=== PATIENT | female | born 1950 | race Caucasian/White ===

== ENCOUNTER 2016-08-19 03:02 | Emergency (ER) | payer MEDICARE, OTHER ==
[2016-08-19 03:08] VITALS: TEMP 99.3
[2016-08-19] MEDS ORDERED: SODIUM CHLORIDE 0.9% 1,000 ML IV STA (03:14)
[2016-08-19] MEDS ORDERED: HYDROmorphone 1 MG/ML 1 ML SYRINGE IVP STA ×2 (03:14→05:36)
[2016-08-19] MEDS ORDERED: SODIUM CHLORIDE 0.9% 500 ML IV STA (03:14)
--- NOTE | 2016-08-19 03:16 | ED ---
General Adult HPI - General Chief complaint: Extremity Injury, Lower Stated complaint: left lower extremity pain Time Seen by Provider: 08/19/16 03:14 Source: EMS, RN notes reviewed, old records reviewed Mode of arrival: EMS Limitations: no limitations - History of Present Illness Initial comments: This is a 65-year-old female here for evaluation. Critical aortic narcotic pain. Patient has multiple medical comorbidities significant diabetes and poor healing left lower extremity ulcer. Patient has been followed wound care, no fevers. There complaining of severe pain in her left lower extremity. Patient denies new trauma. Denies any other significant complaints. Patient states her pains as can the point where she can't function, catwalk on that left leg and can't get up without severe pain. Patient states that mostly night crying. - Related Data Home Medications Medication Instructions Recorded Confirmed Atorvastatin [Lipitor] 40 mg PO HS 08/30/15 08/11/16 Sennosides [Senokot] 8.6 mg PO DAILY PRN 08/30/15 08/11/16 Biotin 5 mg PO DAILY 08/31/15 08/11/16 rOPINIRole HCL [Requip] 0.25 mg PO HS 02/16/16 08/11/16 Allopurinol [Zyloprim] 100 mg PO BID 05/21/16 08/11/16 Calcium Carbonate [Tums] 500 mg PO DAILY 05/21/16 08/11/16 Calcium Carbonate/Vitamin D3 1 tab PO DAILY 05/21/16 08/11/16 [Calcium 600-Vit D3 400 Caplet] DULoxetine HCL [Cymbalta] 60 mg PO DAILY 05/21/16 08/11/16 Furosemide [Lasix] 80 mg PO QAM 05/21/16 08/11/16 Omeprazole 20 mg PO QAM 05/21/16 08/11/16 Pregabalin [Lyrica] 150 mg PO BID 05/21/16 08/11/16 diphenhydrAMINE [Benadryl] 25 mg PO DAILY PRN 05/21/16 08/11/16 metFORMIN HCL 1,000 mg PO BID 05/21/16 08/11/16 oxyCODONE-APAP 10-325MG [Percocet 1 tab PO QID PRN 05/21/16 08/11/16 10-325 mg] Ascorbic Acid [Vitamin C] 500 mg PO DAILY 06/29/16 08/11/16 Bisacodyl 5 mg PO DAILY PRN 06/29/16 08/11/16 Cholecalciferol [Vitamin D3] 2,000 unit PO DAILY 06/29/16 08/11/16 Ferrous Sulfate [Iron (65 MG 325 mg PO BID 06/29/16 08/11/16 Elemental)] Furosemide [Lasix] 40 mg PO DAILY@1300 06/29/16 08/11/16 Magnesium Hydroxide [Milk of 2,400 mg PO DAILY PRN 06/29/16 08/11/16 Magnesia] Multivit with Calcium,Iron,Min 1 tab PO DAILY 06/29/16 08/11/16 [Women's Multivitamin] Polyethylene Glycol 3350 [Miralax] 17 gm PO DAILY 06/29/16 08/11/16 Vitamin E (Dl,Tocopheryl Acet) 400 unit PO DAILY 06/29/16 08/11/16 [Vitamin E] tiZANidine [Zanaflex] 4 mg PO DAILY 06/29/16 08/11/16 Previous Rx's Medication Instructions Recorded Potassium Chloride [Klor-Con 20] 20 meq PO DAILY #30 tab 03/06/16 Allergies Allergy/AdvReac Type Severity Reaction Status Date / Time adhesive tape Allergy Severe Rash/Hives Verified 08/19/16 03:09 cephalexin monohydrate Allergy Severe Rash/Hives Verified 08/19/16 03:09 [From Keflex] influenza virus vaccine, Allergy Severe Anaphylaxis Verified 08/19/16 03:09 specific [influenza virus vacc,specific] latex Allergy Severe Rash/Hives Verified 08/19/16 03:09 peanut Allergy Severe Anaphylaxis Verified 08/19/16 03:09 Penicillins Allergy Severe Swelling Verified 08/19/16 03:09 tetanus toxoid, adsorbed Allergy Intermediate Rash/Hives Verified 08/19/16 03:09 Review of Systems ROS Statement: Those systems with pertinent positive or pertinent negative responses have been documented in the HPI. ROS Other: All systems not noted in ROS Statement are negative. Past Medical History Past Medical History: Diabetes Mellitus, Deep Vein Thrombosis (DVT), Fibromyalgia, GI Bleed, Hypertension, Skin Disorder, Sleep Apnea/CPAP/BIPAP Additional Past Medical History / Comment(s): Pt recently fell (April 2016) and had L eye contusion/L lower leg laceration-surgically repaired/DVT L lower leg and acute blood loss anemia. Other HX: IDDM type II, DVT L leg, bilateral lower leg cellulitis with L lower leg cellulitis currently being tx by Dr. Bhatia, rt heel pressure ulcer-SINCE HEALED, peripheral neuropathy bilateral hands and feet, falls, chronic UTI'S, bilateral tinnitis, hemorrhoids , migraines, obesity, pt is on cholesterol medication for eye cholesterol problem, back pain, eczema, sinus problems, ALEX no CPAP, stomach ulcers, lower GI bleed. Last Myocardial Infarction Date:: unknown History of Any Multi-Drug Resistant Organisms: MRSA, VRE Date of last positivie culture/infection: 10/21/2014- VRE; 06/13/16 MRSA(LT leg) , MDRO Source:: Urine-VRE; Left knee arthroplasty-MRSA ( MRSA per nursing documentation) Past Surgical History: Adenoidectomy, Bariatric Surgery, Cholecystectomy, Joint Replacement, Tonsillectomy, Tubal Ligation Additional Past Surgical History / Comment(s): Gastric bypass, [place]-en-Y in 2003 , [place] filter placement, teeth extraction, colonoscopy, EGD, hemorrhoidectomy, panniculectomy, D&C, hystoscopy x 2, LT KNEE replaced-MRSA infection-hardware removed and cemented then replaced again, L hip repair with screw and total R hip REPLACEMENT, bilateral heel spurs removed, bilateral carpal tunnel releases, D&Cs, infusaport insertion since removed. Past Anesthesia/Blood Transfusion Reactions: No Reported Reaction Additional Past Anesthesia/Blood Transfusion Reaction / Comment(s): pt has received blood in the past without reaction. Past Psychological History: Anxiety, Depression Additional Psychological History / Comment(s): Pt lives with a roomate. She is wheelchair bound. She has an aide coming 3 times a week for bathing. She manages her own medication. VNA changes L lower leg dressing 3 times a week. She does not drive any longer. She gets to [facility] by bus. Smoking Status: Former smoker Past Alcohol Use History: Rare Additional Past Alcohol Use History / Comment(s): She has history of smoking 1.5 pack per day for 27 years and quit in 1993. She drinks alcohol rarely. 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 pt stated SHE HAS HOME CARE WITH VISITNG NURSES. uses a w/c Past Drug Use History: Cocaine, Marijuana Additional Drug Use History / Comment(s): when younger admits to using marijuana ,lsd,meth,cocaine denies any iv drug use. pt still smokes marijuana for pain control. - Past Family History Father Family Medical History: Myocardial Infarction ([place]) Additional Family Medical History / Comment(s): AT AGE 46-[place] Mother Family Medical History: Diabetes Mellitus Additional Family Medical History / Comment(s): AT AGE 66 FROM COMPLICATIONS FROM DM Sister(s) Family Medical History: Diabetes Mellitus Brother(s) Family Medical History: Diabetes Mellitus Daughter(s) Family Medical History: Cancer Son(s) Family Medical History: No Reported History General Exam Limitations: no limitations Course Vital Signs 08/19/16 03:05 Temperature 99.3 F Pulse Rate 66 Respiratory 20 Rate Blood Pressure 152/70 O2 Sat by Pulse 97 Oximetry - Reevaluation(s) Reevaluation #1: 08/19/16 05:33 Patient's pain at this point is adequately controlled Medical Decision Making - Medical Decision Making 65-year-old here for evaluation. Patient presents today for evaluation of leg pain, severe acute on chronic leg pain. Patient can be discharged home - Lab Data Result diagrams: 08/19/16 03:37 08/19/16 03:37 Lab Results 08/19/16 08/19/16 08/19/16 Range/Units 03:37 03:37 03:37 WBC 6.8 (3.8-10.6) k/uL RBC 3.16 L (3.80-5.40) m/uL Hgb 8.6 L (11.4-16.0) gm/dL Hct 28.1 L (34.0-46.0) % MCV 88.9 (80.0-100.0) fL MCH 27.4 (25.0-35.0) pg MCHC 30.8 L (31.0-37.0) g/dL RDW 17.2 H (11.5-15.5) % Plt Count 324 (150-450) k/uL Neutrophils % 65 % Lymphocytes % 22 % Monocytes % 7 % Eosinophils % 3 % Basophils % 1 % Neutrophils # 4.4 (1.3-7.7) k/uL Lymphocytes # 1.5 (1.0-4.8) k/uL Monocytes # 0.5 (0-1.0) k/uL Eosinophils # 0.2 (0-0.7) k/uL Basophils # 0.0 (0-0.2) k/uL Hypochromasia Slight Anisocytosis Slight Sodium 142 (137-145) mmol/L Potassium 4.0 (3.5-5.1) mmol/L Chloride 100 (98-107) mmol/L Carbon Dioxide 26 (22-30) mmol/L Anion Gap 16 mmol/L BUN 39 H (7-17) mg/dL Creatinine 1.60 H (0.52-1.04) mg/dL Est GFR (MDRD) Af Amer 39 (>60 ml/min/1.73 sqM) Est GFR (MDRD) Non-Af 32 (>60 ml/min/1.73 sqM) Glucose 254 H (74-99) mg/dL Plasma Lactic Acid Maximus (0.7-2.0) mmol/L Calcium 8.8 (8.4-10.2) mg/dL Phosphorus 5.0 H (2.5-4.5) mg/dL Magnesium 1.9 (1.6-2.3) mg/dL Total Bilirubin 0.4 (0.2-1.3) mg/dL AST 20 (14-36) U/L ALT 31 (9-52) U/L Alkaline Phosphatase 147 H (38-126) U/L Total Creatine Kinase 75 (30-135) U/L CK-MB (CK-2) 1.8 (0.0-2.4) ng/mL CK-MB (CK-2) Rel Index 2.4 Total Protein 7.8 (6.3-8.2) g/dL Albumin 3.7 (3.5-5.0) g/dL 08/19/16 Range/Units 03:37 WBC (3.8-10.6) k/uL RBC (3.80-5.40) m/uL Hgb (11.4-16.0) gm/dL Hct (34.0-46.0) % MCV (80.0-100.0) fL MCH (25.0-35.0) pg MCHC (31.0-37.0) g/dL RDW (11.5-15.5) % Plt Count (150-450) k/uL Neutrophils % % Lymphocytes % % Monocytes % % Eosinophils % % Basophils % % Neutrophils # (1.3-7.7) k/uL Lymphocytes # (1.0-4.8) k/uL Monocytes # (0-1.0) k/uL Eosinophils # (0-0.7) k/uL Basophils # (0-0.2) k/uL Hypochromasia Anisocytosis Sodium (137-145) mmol/L Potassium (3.5-5.1) mmol/L Chloride (98-107) mmol/L Carbon Dioxide (22-30) mmol/L Anion Gap mmol/L BUN (7-17) mg/dL Creatinine (0.52-1.04) mg/dL Est GFR (MDRD) Af Amer (>60 ml/min/1.73 sqM) Est GFR (MDRD) Non-Af (>60 ml/min/1.73 sqM) Glucose (74-99) mg/dL Plasma Lactic Acid Maximus 1.2 (0.7-2.0) mmol/L Calcium (8.4-10.2) mg/dL Phosphorus (2.5-4.5) mg/dL Magnesium (1.6-2.3) mg/dL Total Bilirubin (0.2-1.3) mg/dL AST (14-36) U/L ALT (9-52) U/L Alkaline Phosphatase (38-126) U/L Total Creatine Kinase (30-135) U/L CK-MB (CK-2) (0.0-2.4) ng/mL CK-MB (CK-2) Rel Index Total Protein (6.3-8.2) g/dL Albumin (3.5-5.0) g/dL - Radiology Data Radiology results: report reviewed (X-ray left tib-fib is negative for acute disease), image reviewed Disposition Clinical Impression: Type II diabetes mellitus with peripheral circulatory disorder, uncontrolled, Traumatic ulcer of left lower extremity with fat layer exposed, Failure of outpatient treatment, Intractable pain Disposition: HOME SELF-CARE Condition: Good Instructions: Leg Pain (ED) Referrals: Willis Gurrola MD [Primary Care Provider] - 1-2 days
[2016-08-19 03:54] LABS: Anisocytosis Slight; Basophils % (A) 1 %; CH 28.5; CHCM 32.2; Eosinophils # (A) 0.2 k/uL (0-0.7); Eosinophils % (A) 3 %; HCT 28.1 % (34.0-46.0); HDW 3.33; HGB 8.6 gm/dL (11.4-16.0); Hypochromasia Slight; Luc # (Auto) 0.13; Luc % (Auto) 2; Lymphocytes # (A) 1.5 k/uL (1.0-4.8); Lymphocytes % (A) 22 %; MCH 27.4 pg (25.0-35.0); MCHC 30.8 g/dL (31.0-37.0); MCV 88.9 fL (80.0-100.0); Mean Platelet Volume 7.9; Monocytes # (A) 0.5 k/uL (0-1.0); Monocytes % (A) 7 %; Neutrophils # (A) 4.4 k/uL (1.3-7.7); Neutrophils % (A) 65 %; RBC 3.16 m/uL (3.80-5.40); RDW 17.2 % (11.5-15.5); WBC 6.8 k/uL (3.8-10.6); WBC (Perox) 7.33
[2016-08-19 04:09] LABS: Calcium 8.8 mg/dL (8.4-10.2); Magnesium 1.9 mg/dL (1.6-2.3); Total Bilirubin 0.4 mg/dL (0.2-1.3); Total Protein 7.8 g/dL (6.3-8.2)
[2016-08-19 04:32] LABS: Creatine Kinase MB 1.8 ng/mL (0.0-2.4)
--- NOTE | 2016-08-19 04:45 | XR ---
EXAMINATION TYPE: XR tibia fibula LT DATE OF EXAM: 08/19/2016 4:06 AM COMPARISON: 06/29/2016 HISTORY: Pain TECHNIQUE: 4 views FINDINGS: There is a left knee prosthesis. I see no fracture nor dislocation. Ankle mortise is anatom ic. IMPRESSION: Left knee prosthesis. Tibia and fibula appear stable compared to old exam.
[2016-08-19 06:32] VITALS: BP 118/59; PULSE 101; RESP 16
== END 2016-08-19 07:55 | disposition home or self-care (01) ==
LOC: EC 03:02
DX: E11.622 Type 2 diabetes mellitus with other skin ulcer (principal); L97.922 Non-pressure chronic ulcer of unspecified part of left lower leg with fat layer exposed; E11.40 Type 2 diabetes mellitus with diabetic neuropathy, unspecified; E11.51 Type 2 diabetes mellitus with diabetic peripheral angiopathy without gangrene; Z79.84 Long term (current) use of oral hypoglycemic drugs; M79.7 Fibromyalgia; F41.9 Anxiety disorder, unspecified; I10 Essential (primary) hypertension; F32.9 Major depressive disorder, single episode, unspecified; Z98.84 Bariatric surgery status; F12.90 Cannabis use, unspecified, uncomplicated; Z99.3 Dependence on wheelchair; Z79.899 Other long term (current) drug therapy; Z87.891 Personal history of nicotine dependence; Z88.1 Allergy status to other antibiotic agents; Z91.040 Latex allergy status; Z88.0 Allergy status to penicillin; Z88.7 Allergy status to serum and vaccine; Z86.718 Personal history of other venous thrombosis and embolism; Z87.440 Personal history of urinary (tract) infections; Z86.14 Personal history of Methicillin resistant Staphylococcus aureus infection; Z16.21 Resistance to vancomycin
CPT/HCPCS: 36415; 93005; 80053; 82550; 82553; 83605; 83735; 84100; 85025; 87040; 73590; 99284; 96374; 96376; 96361; J1170

== ENCOUNTER 2016-08-19 10:39 | Inpatient (IN) | payer MEDICARE, OTHER ==
[2016-08-19] MEDS ORDERED: SODIUM CHLORIDE 0.9% 1,000 ML IV ONE ×2 (10:56→13:17)
[2016-08-19] MEDS ORDERED: HYDROmorphone 1 MG/ML 1 ML SYRINGE IVP STA ×2 (11:03→14:16)
[2016-08-19] MEDS ORDERED: ONDANSETRON 4 MG/2 ML VIAL IVP STA (11:03)
--- NOTE | 2016-08-19 11:09 | ED ---
General Adult HPI - General Chief complaint: Extremity Injury, Lower Stated complaint: Left Leg Pain Time Seen by Provider: 08/19/16 10:54 Source: patient, RN notes reviewed, old records reviewed Mode of arrival: EMS Limitations: physical limitation - History of Present Illness Initial comments: 65-year-old female with history of diabetes and chronic left lower leg ulcer presenting for left lower leg pain. Patient states she was seen in the ED earlier today and given pain medication which improved her pain. However when she got home the pain came back and was worse. She also states she has had fevers and chills over the past few days. She states she is not feeling well overall. She denies any chest pain or shortness of breath. She denies any other fall or injury. She denies any recent antibiotics. - Related Data Home Medications Medication Instructions Recorded Confirmed Atorvastatin [Lipitor] 40 mg PO HS 08/30/15 08/19/16 Sennosides [Senokot] 8.6 mg PO DAILY PRN 08/30/15 08/19/16 Biotin 5 mg PO DAILY 08/31/15 08/19/16 rOPINIRole HCL [Requip] 0.25 mg PO HS 02/16/16 08/19/16 Allopurinol [Zyloprim] 100 mg PO BID 05/21/16 08/19/16 Calcium Carbonate [Tums] 500 mg PO DAILY 05/21/16 08/19/16 Calcium Carbonate/Vitamin D3 1 tab PO DAILY 05/21/16 08/19/16 [Calcium 600-Vit D3 400 Caplet] DULoxetine HCL [Cymbalta] 60 mg PO DAILY 05/21/16 08/19/16 Furosemide [Lasix] 80 mg PO QAM 05/21/16 08/19/16 Omeprazole 20 mg PO QAM 05/21/16 08/19/16 Pregabalin [Lyrica] 150 mg PO BID 05/21/16 08/19/16 diphenhydrAMINE [Benadryl] 25 mg PO DAILY PRN 05/21/16 08/19/16 metFORMIN HCL 1,000 mg PO BID 05/21/16 08/19/16 oxyCODONE-APAP 10-325MG [Percocet 1 tab PO QID PRN 05/21/16 08/19/16 10-325 mg] Ascorbic Acid [Vitamin C] 500 mg PO DAILY 06/29/16 08/19/16 Bisacodyl 5 mg PO DAILY PRN 06/29/16 08/19/16 Cholecalciferol [Vitamin D3] 2,000 unit PO DAILY 06/29/16 08/19/16 Ferrous Sulfate [Iron (65 MG 325 mg PO BID 06/29/16 08/19/16 Elemental)] Furosemide [Lasix] 40 mg PO DAILY@1300 06/29/16 08/19/16 Magnesium Hydroxide [Milk of 2,400 mg PO DAILY PRN 06/29/16 08/19/16 Magnesia] Multivit with Calcium,Iron,Min 1 tab PO DAILY 06/29/16 08/19/16 [Women's Multivitamin] Polyethylene Glycol 3350 [Miralax] 17 gm PO DAILY 06/29/16 08/19/16 Vitamin E (Dl,Tocopheryl Acet) 400 unit PO DAILY 06/29/16 08/19/16 [Vitamin E] tiZANidine [Zanaflex] 4 mg PO DAILY 06/29/16 08/19/16 Previous Rx's Medication Instructions Recorded Potassium Chloride [Klor-Con 20] 20 meq PO DAILY #30 tab 03/06/16 Dextroamphetamine/Amphetamine 25 mg PO QAM #1 cap 08/19/16 [Adderall Xr] HYDROcodone/APAP 10-325MG [Stebbins 1 tab PO Q4HR PRN #30 tab 08/19/16 10-325] Allergies Allergy/AdvReac Type Severity Reaction Status Date / Time adhesive tape Allergy Severe Rash/Hives Verified 08/19/16 03:09 cephalexin monohydrate Allergy Severe Rash/Hives Verified 08/19/16 03:09 [From Keflex] influenza virus vaccine, Allergy Severe Anaphylaxis Verified 08/19/16 03:09 specific [influenza virus vacc,specific] latex Allergy Severe Rash/Hives Verified 08/19/16 03:09 peanut Allergy Severe Anaphylaxis Verified 08/19/16 03:09 Penicillins Allergy Severe Swelling Verified 08/19/16 03:09 tetanus toxoid, adsorbed Allergy Intermediate Rash/Hives Verified 08/19/16 03:09 Review of Systems ROS Statement: Those systems with pertinent positive or pertinent negative responses have been documented in the HPI. Constitutional: No fevers. No chills. No change in appetite. No unexpected weight loss. Eyes: No visual changes. No eye pain. No sensitivity to light. HENT: No sinus pressure. No ear pain. No hearing changes. No epistaxis. No sore throat. Respiratory: No cough. No SOB. No wheezing. Cardiovascular: No chest pain. No palpitations. No lower extremity edema. Abdomen: No abdominal pain. No nausea. No vomiting. No diarrhea. Genitourinary: No dysuria. No hematuria. No difficulty urinating. No flank pain. Musculoskeletal: No injury. No back pain. No myalgias. Left lower leg pain. Skin: No rash. No lacerations. Left lower leg ulcer with drainage. Neuro: No gross strength deficits. No LOC. No seizures. No headache. Psych: No confusion. No memory changes. No anxiety/depression. ROS Other: All systems not noted in ROS Statement are negative. Past Medical History Past Medical History: Diabetes Mellitus, Deep Vein Thrombosis (DVT), Fibromyalgia, GI Bleed, Hypertension, Skin Disorder, Sleep Apnea/CPAP/BIPAP Additional Past Medical History / Comment(s): Pt recently fell (April 2016) and had L eye contusion/L lower leg laceration-surgically repaired/DVT L lower leg and acute blood loss anemia. Other HX: IDDM type II, DVT L leg, bilateral lower leg cellulitis with L lower leg cellulitis currently being tx by Dr. Bhatia, rt heel pressure ulcer-SINCE HEALED, peripheral neuropathy bilateral hands and feet, falls, chronic UTI'S, bilateral tinnitis, hemorrhoids , migraines, obesity, pt is on cholesterol medication for eye cholesterol problem, back pain, eczema, sinus problems, ALEX no CPAP, stomach ulcers, lower GI bleed. Last Myocardial Infarction Date:: unknown History of Any Multi-Drug Resistant Organisms: MRSA, VRE Date of last positivie culture/infection: 10/21/2014- VRE; 06/13/16 MRSA(LT leg) , MDRO Source:: Urine-VRE; Left knee arthroplasty-MRSA ( MRSA per nursing documentation) Past Surgical History: Adenoidectomy, Bariatric Surgery, Cholecystectomy, Joint Replacement, Tonsillectomy, Tubal Ligation Additional Past Surgical History / Comment(s): Gastric bypass, [place]-en-Y in 2003 , [place] filter placement, teeth extraction, colonoscopy, EGD, hemorrhoidectomy, panniculectomy, D&C, hystoscopy x 2, LT KNEE replaced-MRSA infection-hardware removed and cemented then replaced again, L hip repair with screw and total R hip REPLACEMENT, bilateral heel spurs removed, bilateral carpal tunnel releases, D&Cs, infusaport insertion since removed. Past Anesthesia/Blood Transfusion Reactions: No Reported Reaction Additional Past Anesthesia/Blood Transfusion Reaction / Comment(s): pt has received blood in the past without reaction. Past Psychological History: Anxiety, Depression Additional Psychological History / Comment(s): Pt lives with a roomate. She is wheelchair bound. She has an aide coming 3 times a week for bathing. She manages her own medication. VNA changes L lower leg dressing 3 times a week. She does not drive any longer. She gets to [facility] by bus. Smoking Status: Former smoker Past Alcohol Use History: Rare Additional Past Alcohol Use History / Comment(s): She has history of smoking 1.5 pack per day for 27 years and quit in 1993. She drinks alcohol rarely. 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 pt stated SHE HAS HOME CARE WITH VISITNG NURSES. uses a w/c Past Drug Use History: Marijuana Additional Drug Use History / Comment(s): when younger admits to using marijuana ,lsd,meth,cocaine denies any iv drug use. pt still smokes marijuana for pain control. - Past Family History Father Family Medical History: Myocardial Infarction ([place]) Additional Family Medical History / Comment(s): AT AGE 46-[place] Mother Family Medical History: Diabetes Mellitus Additional Family Medical History / Comment(s): AT AGE 66 FROM COMPLICATIONS FROM DM Sister(s) Family Medical History: Diabetes Mellitus Brother(s) Family Medical History: Diabetes Mellitus Daughter(s) Family Medical History: Cancer Son(s) Family Medical History: No Reported History General Exam - General Exam Comments Initial Comments: General: Awake and Alert. No acute distress. Patient appears ill. Obese. Eyes: PANDA, EOM intact. No nystagmus. No scleral icterus. HENT: Atraumatic, normocephalic. Mucous membranes moist. Trachea midline. Neck: The neck is supple, there is no tenderness or JVD. Cardiovascular: Regular rate and rhythm. No murmur, rub, or gallop is appreciated. Distal pulses intact, 2+ DP and radial bilateral Respiratory: Lungs are clear to auscultation bilaterally. No wheezes, rales, rhonchi. No respiratory distress. Gastrointestinal: Soft, Nontender. No rebound or guarding. Non-distended. No masses or organomegaly noted. No CVA tenderness. Musculoskeletal: No tenderness. Normal ROM. No gross deformity. No strength deficits. Neurological: A&Ox3. CN II-XII grossly intact, There are no obvious motor or sensory deficits. Coordination appears grossly intact. Speech is normal. Skin: Skin is warm and dry. Left lower leg with a large ulcer on the lateral lower leg which has some purulent drainage. It is tender surrounding this area. Psychiatric: Cooperative, appropriate mood & affect, normal judgment. Limitations: physical limitation Course Vital Signs 08/19/16 08/19/16 08/19/16 10:42 12:29 13:07 Temperature 101.8 F H 99.2 F Pulse Rate 107 H 100 102 H Respiratory 16 20 20 Rate Blood Pressure 130/74 152/78 145/65 O2 Sat by Pulse 95 100 100 Oximetry 08/19/16 08/19/16 08/19/16 14:22 15:09 15:13 Temperature 99 F 98.8 F Pulse Rate 100 102 H Respiratory 20 20 Rate Blood Pressure 137/87 134/89 O2 Sat by Pulse 100 97 Oximetry EKG Findings - EKG Comments: EKG Findings:: 14:17. Sinus rhythm. Rate 103. MO 170. QRS 76. QT/QTC 368/ 42. Normal axis. Nonspecific ST and T-wave changes. Nonspecific EKG. Medical Decision Making - Medical Decision Making 65-year-old female presenting for left lower leg pain. This appears chronic per review in history. Due to her diabetes and likely peripheral arterial disease she has poor healing of this lower leg wound the past several months. She was seen earlier in the ED today was treated for pain control. She states she felt better at that time. However now upon re-evaluation she had persistent pain but also now with evidence of signs and symptoms of sepsis. Patient started on IV fluids, given pain medications. Extensive workup including blood cultures were ordered. Lab workup shows CBC with anemia which is mildly decreased from recent values, recommended continued trending of this. BMP with stable CKD. Hyperglycemia noted, no evidence of DKA. Lactate negative. XR Left Leg from earlier today without evidence of osteomyelitis. CXR no acute process Patient updated on results of findings. Discussed plan for admission for sepsis. Patient was started on Vancomycin and Aztreonam in the ED for suspected skin source of infection. I called and discussed with Dr. Gurrola, who is agreeable with plan for admission. - Lab Data Result diagrams: 08/19/16 11:55 08/19/16 11:55 Lab Results 08/19/16 08/19/16 08/19/16 Range/Units 11:55 11:55 11:55 WBC 6.7 (3.8-10.6) k/uL RBC 2.72 L (3.80-5.40) m/uL Hgb 7.8 L (11.4-16.0) gm/dL Hct 24.4 L (34.0-46.0) % MCV 89.9 (80.0-100.0) fL MCH 28.7 (25.0-35.0) pg MCHC 31.9 (31.0-37.0) g/dL RDW 17.1 H (11.5-15.5) % Plt Count 278 (150-450) k/uL Neutrophils % 70 % Lymphocytes % 18 % Monocytes % 6 % Eosinophils % 3 % Basophils % 1 % Neutrophils # 4.7 (1.3-7.7) k/uL Lymphocytes # 1.2 (1.0-4.8) k/uL Monocytes # 0.4 (0-1.0) k/uL Eosinophils # 0.2 (0-0.7) k/uL Basophils # 0.0 (0-0.2) k/uL Hypochromasia Moderate Anisocytosis Slight Sodium 141 (137-145) mmol/L Potassium 4.5 (3.5-5.1) mmol/L Chloride 103 (98-107) mmol/L Carbon Dioxide 24 (22-30) mmol/L Anion Gap 14 mmol/L BUN 42 H (7-17) mg/dL Creatinine 1.30 H (0.52-1.04) mg/dL Est GFR (MDRD) Af Amer 50 (>60 ml/min/1.73 sqM) Est GFR (MDRD) Non-Af 41 (>60 ml/min/1.73 sqM) Glucose 217 H (74-99) mg/dL Plasma Lactic Acid Maximus 1.2 (0.7-2.0) mmol/L Calcium 8.2 L (8.4-10.2) mg/dL - EKG Data -: EKG Interpreted by Me EKG shows normal: sinus rhythm Rate: tachycardia Disposition Clinical Impression: Sepsis, Lower limb ulcer, Type II diabetes mellitus with peripheral circulatory disorder, uncontrolled, Fever, Leg pain, Anemia, CKD (chronic kidney disease) Disposition: ADMITTED IP TO THIS [facility] Condition: Stable Decision to Admit Reason: Admit from EC
[2016-08-19 12:14] LABS: Anisocytosis Slight; Basophils % (A) 1 %; CH 28.4; CHCM 31.7; Eosinophils # (A) 0.2 k/uL (0-0.7); Eosinophils % (A) 3 %; HCT 24.4 % (34.0-46.0); HDW 3.37; HGB 7.8 gm/dL (11.4-16.0); Hypochromasia Moderate; Luc # (Auto) 0.17; Luc % (Auto) 3; Lymphocytes # (A) 1.2 k/uL (1.0-4.8); Lymphocytes % (A) 18 %; MCH 28.7 pg (25.0-35.0); MCHC 31.9 g/dL (31.0-37.0); MCV 89.9 fL (80.0-100.0); Mean Platelet Volume 6.7; Monocytes # (A) 0.4 k/uL (0-1.0); Monocytes % (A) 6 %; Neutrophils # (A) 4.7 k/uL (1.3-7.7); Neutrophils % (A) 70 %; RBC 2.72 m/uL (3.80-5.40); RDW 17.1 % (11.5-15.5); WBC 6.7 k/uL (3.8-10.6); WBC (Perox) 7.07
[2016-08-19 12:26] LABS: Calcium 8.2 mg/dL (8.4-10.2)
[2016-08-19 12:45] LABS: Potassium 4.5 mmol/L (3.5-5.1)
[2016-08-19] MEDS ORDERED: VANCOMYCIN 1,750 MG in SODIUM CHLORIDE 0.9% 250 ML IVPB ONE (12:52)
[2016-08-19] MEDS ORDERED: SODIUM CHLORIDE 0.9% 1,000 ML IV STA (13:17)
[2016-08-19] MEDS ORDERED: AZTREONAM 1 GM in SODIUM CHLORIDE 0.9% 50 ML IVPB STA (13:18)
[2016-08-19] MEDS ORDERED: IV VANCOMYCIN PER PHARMACY 1 EACH MISC MISCELLANE PRN (13:50)
--- NOTE | 2016-08-19 14:21 | XR ---
EXAMINATION TYPE: XR chest 2V DATE OF EXAM: 08/19/2016 1:59 PM COMPARISON: 05 July 2016 HISTORY: cough TECHNIQUE: Frontal and lateral views of the chest are obtained. FINDINGS: There is no pleural effusion, or pneumothorax seen. The cardiac silhouette size is stable . Interval removal of picc line. The patient is rotated. There is an hiatal hernia. Difficult to ex clude retrocardiac airspace disease. The osseous structures are intact. IMPRESSION: limited and rotated
[2016-08-19 17:01] LABS: Glucose,Whole Blood 177 mg/dL (75-99)
[2016-08-19] MEDS: HEPARIN SODIUM,PORCINE 5,000 UNIT/ML 1 ML VIAL SQ SCH ×2 (19:21→23:10)
[2016-08-19] MEDS: LEVOFLOXACIN 750MG-D5W PMX 750 MG in DEXTROSE/WATER 1 150ML.BAG IVPB SCH (19:25)
[2016-08-19] MEDS: LACTATED RINGERS 1,000 ML IV SCH ×2 (19:27→23:09)
[2016-08-19 21:00] LABS: Glucose,Whole Blood 264 mg/dL (75-99)
[2016-08-19] MEDS ORDERED: ACETAMINOPHEN TAB 325 MG TAB PO PRN (22:19)
[2016-08-19] MEDS: INSULIN LISPRO (humaLOG) 300 UNIT/3 ML VIAL SQ SCH (23:04)
[2016-08-19] MEDS: HYDROmorphone 1 MG/ML 1 ML SYRINGE IVP PRN (23:11)
[2016-08-20] MEDS: oxyCODONE-APAP 10-325MG 1 EACH TAB PO PRN ×4 (01:21→23:09)
[2016-08-20] MEDS: HYDROmorphone 1 MG/ML 1 ML SYRINGE IVP PRN ×4 (05:15→23:52)
[2016-08-20 06:31] LABS: Glucose,Whole Blood 201 mg/dL (75-99)
[2016-08-20] MEDS: INSULIN LISPRO (humaLOG) 300 UNIT/3 ML VIAL SQ SCH ×4 (06:38→21:20)
[2016-08-20] MEDS ORDERED: SENNOSIDES 8.6 MG TAB PO PRN (07:46)
[2016-08-20] MEDS ORDERED: BISACODYL 5 MG TABLET.DR PO PRN (07:46)
[2016-08-20] MEDS ORDERED: diphenhydrAMINE 25 MG CAP PO PRN (07:46)
[2016-08-20] MEDS ORDERED: NON-FORMULARY DRUG (Magnesium Hydroxide [Milk Of Magnesia] 2,400 MG) PO PRN (07:46)
[2016-08-20] MEDS ORDERED: MAGNESIUM HYDROXIDE 2,400 MG/10 ML CUP PO PRN (08:01)
[2016-08-20 08:08] LABS: Hemoglobin A1C 7.7 % (4.2-6.1)
[2016-08-20] MEDS ORDERED: NON-FORMULARY DRUG (Biotin [Biotin] 5 MG) PO SCH (09:00)
[2016-08-20] MEDS: tiZANidine 4 MG TAB PO SCH (09:33)
[2016-08-20] MEDS: POTASSIUM CHLORIDE ER 20 MEQ TAB.ER PO SCH (09:33)
[2016-08-20] MEDS: VITAMIN E (DL,TOCOPHERYL ACET) 400 UNIT CAP PO SCH (09:33)
[2016-08-20] MEDS: FERROUS SULFATE 325 MG TAB PO SCH ×2 (09:34→20:26)
[2016-08-20] MEDS: HEPARIN SODIUM,PORCINE 5,000 UNIT/ML 1 ML VIAL SQ SCH ×3 (09:34→23:10)
[2016-08-20] MEDS: CALCIUM CARB-VIT D 500MG-200UN 1 EACH TAB PO SCH (09:34)
[2016-08-20] MEDS: CHOLECALCIFEROL 1,000 UNIT TAB PO SCH (09:34)
[2016-08-20] MEDS: ASCORBIC ACID 500 MG TAB PO SCH (09:34)
[2016-08-20] MEDS: HYDROmorphone 1 MG/ML 1 ML SYRINGE IM PRN ×2 (09:34→14:29)
[2016-08-20] MEDS: ALLOPURINOL 100 MG TAB PO SCH ×2 (09:34→20:26)
[2016-08-20] MEDS: metFORMIN 500 MG TAB PO SCH ×2 (09:34→17:20)
[2016-08-20] MEDS: PREGABALIN 75 MG CAP PO SCH ×2 (09:34→20:26)
[2016-08-20] MEDS: DULoxetine HCL 60 MG CAPSULE.DR PO SCH (09:34)
[2016-08-20] MEDS: FUROSEMIDE 80 MG TAB PO SCH (09:34)
[2016-08-20] MEDS: POLYETHYLENE GLYCOL 3350 17 GM POWD.PACK PO SCH (09:36)
[2016-08-20] MEDS: VANCOMYCIN 1,750 MG in SODIUM CHLORIDE 0.9% 250 ML IVPB SCH (09:55)
[2016-08-20 11:02] LABS: Glucose,Whole Blood 255 mg/dL (75-99)
[2016-08-20 11:21] LABS: Appearance,Urine Cloudy (Clear); Bacteria,Urine Few /hpf; Bilirubin,Urine Negative (Negative); Glucose,Urine (UA) Negative (Negative); Ketones,Urine Negative (Negative); Leukocyte Esterase,Urine Moderate (Negative); Mucus,Urine Rare /hpf; Nitrite,Urine Negative (Negative); PH, Urine 5.5 (5.0-8.0); Particle Count 2301; Protein,Urine Negative (Negative); Specific Gravity,Urine 1.013 (1.001-1.035); Squamous Epithelial Cell,Urine 6 /hpf (0-4); UA Billing (MACRO vs. MICRO) MICRO; Urobilinogen,Urine <2.0 mg/dL (<2.0); WBC,Urine 20 /hpf (0-5)
[2016-08-20 12:12] LABS: Glucose,Whole Blood 269 mg/dL (75-99)
[2016-08-20] MEDS: MULTIVITAMINS, THERA 1 EACH TAB PO SCH ×2 (13:15→13:16)
[2016-08-20] MEDS: FUROSEMIDE 40 MG TAB PO SCH (14:57)
--- NOTE | 2016-08-20 15:47 | P.CONS ---
History of Present Illness - Reason for Consult Consult date: 08/20/16 Left lower extremity ulcer - History of Present Illness 65-year-old woman known to the infectious disease service was recently hospitalized because of a significant injury to her left leg. She relates that she was at her home and her cat had thrown up and had a hairball. She was kneeling over the chair to clean it up and she regretfully fell outside of the chair causing the significant laceration to the lateral aspect of her left leg. She was hospitalized July 13 through July 16 and was discharged home on Fortaz 2 g every 12 hours for [address] in [address]. She was also treated at that time for colitis and dehydration. She then followed up in the wound healing Center with Dr. Perez and she was due for her third visit on Tuesday of this week but she states she was too sick and weak to make it to her appointment. She states that she started with diarrhea last Tuesday through Tuesday 3-4 times every day but is has not had any since Tuesday. Since Tuesday she complains of body ache, cold symptoms cough, nausea and vomiting 2. She states she came into the emergency center and was sent home. She presented to the emergency center initially on August 19 at 3 a.m. and underwent a left tib- fib x-ray that showed stable findings. She was afebrile. White count was 6.8. She was discharged home to follow-up with her primary care physician. She returned later in the day on August 19 and had fever of 101.8 and was tachycardic. White count was 6.7 and hemoglobin 7.8. BUN 42 and creatinine 1.3. Lactic acid 1.3. Blood culture showing no growth after 24 hours and urine is collected. She underwent a chest x-ray which was limited. She received 1 dose of Azactam and admitted to the selective care unit and started on Levaquin and vancomycin. She states she is feeling better in general since she's been here. Review of Systems All systems: negative Constitutional: Reports chills, Reports fatigue, Reports fever, Reports lethargy , Reports malaise, Reports weakness Eyes: denies blurred vision, denies pain Ears, nose, mouth and throat: Denies headache, Denies sore throat Cardiovascular: Denies chest pain, Denies shortness of breath Respiratory: Denies cough Gastrointestinal: Reports diarrhea, Reports nausea, Reports vomiting, Denies abdominal pain Genitourinary: Denies dysuria, Denies hematuria, Denies urgency, Denies urinary frequency Musculoskeletal: Denies myalgias Integumentary: Denies pruritus, Denies rash Neurological: Denies numbness, Denies weakness Psychiatric: Denies anxiety, Denies depression Endocrine: Denies fatigue, Denies weight change Past Medical History Past Medical History: Diabetes Mellitus, Deep Vein Thrombosis (DVT), Fibromyalgia, GI Bleed, Hypertension, Skin Disorder, Sleep Apnea/CPAP/BIPAP Additional Past Medical History / Comment(s): Pt recently fell (April 2016) and had L eye contusion/L lower leg laceration-surgically repaired/DVT L lower leg and acute blood loss anemia. Other HX: IDDM type II, DVT L leg, bilateral lower leg cellulitis with L lower leg cellulitis currently being tx by Dr. Bhatia, rt heel pressure ulcer-SINCE HEALED, peripheral neuropathy bilateral hands and feet, falls, chronic UTI'S, bilateral tinnitis, hemorrhoids , migraines, obesity, pt is on cholesterol medication for eye cholesterol problem, back pain, eczema, sinus problems, ALEX no CPAP, stomach ulcers, lower GI bleed. 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- VRE; 06/13/16 MRSA(LT leg), MDRO Source:: Urine-VRE; Left knee arthroplasty-MRSA ( MRSA per nursing documentation) Past Surgical History: Adenoidectomy, Bariatric Surgery, Cholecystectomy, Joint Replacement, Tonsillectomy, Tubal Ligation Additional Past Surgical History / Comment(s): Gastric bypass, [place]-en-Y in 2003 , Lizzy filter placement, teeth extraction, colonoscopy, EGD, hemorrhoidectomy, panniculectomy, D&C, hystoscopy x 2, LT KNEE replaced-MRSA infection-hardware removed and cemented then replaced again, L hip repair with screw and total R hip REPLACEMENT, bilateral heel spurs removed, bilateral carpal tunnel releases, D&Cs, infusaport insertion since removed. Past Anesthesia/Blood Transfusion Reactions: No Reported Reaction Additional Past Anesthesia/Blood Transfusion Reaction / Comm: pt has received blood in the past without reaction. Past Psychological History: Anxiety, Depression Additional Psychological History / Comment(s): Pt lives with a roomate. She is wheelchair bound. She has an aide coming 3 times a week for bathing. She manages her own medication. VNA changes L lower leg dressing 3 times a week. She does not drive any longer. She gets [facility] by bus. Smoking Status: Former smoker Past Alcohol Use History: Rare Additional Past Alcohol Use History / Comment(s): She has history of smoking 1.5 pack per day for 27 years and quit in 1993. She drinks alcohol rarely. 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 pt stated SHE HAS HOME CARE WITH [facility] NURSES. uses a w/c Past Drug Use History: Marijuana Additional Drug Use History / Comment(s): when younger admits to using marijuana ,lsd,meth,cocaine denies any iv drug use. pt still smokes marijuana for pain control. - Past Family History Father Family Medical History: Myocardial Infarction (AR) Additional Family Medical History / Comment(s): AT AGE 46-AR Mother Family Medical History: Diabetes Mellitus Additional Family Medical History / Comment(s): AT AGE 66 FROM COMPLICATIONS FROM DM Sister(s) Family Medical History: Diabetes Mellitus Brother(s) Family Medical History: Diabetes Mellitus Daughter(s) Family Medical History: Cancer Son(s) Family Medical History: No Reported History Medications and Allergies Home Medications Medication Instructions Recorded Confirmed Type Atorvastatin [Lipitor] 40 mg PO HS 08/30/15 08/19/16 History Sennosides [Senokot] 8.6 mg PO DAILY PRN 08/30/15 08/19/16 History Biotin 5 mg PO DAILY 08/31/15 08/19/16 History rOPINIRole HCL [Requip] 0.25 mg PO HS 02/16/16 08/19/16 History Allopurinol [Zyloprim] 100 mg PO BID 05/21/16 08/19/16 History Calcium Carbonate [Tums] 500 mg PO DAILY 05/21/16 08/19/16 History Calcium Carbonate/Vitamin D3 1 tab PO DAILY 05/21/16 08/19/16 History [Calcium 600-Vit D3 400 Caplet] Furosemide [Lasix] 80 mg PO QAM 05/21/16 08/19/16 History Omeprazole 20 mg PO QAM 05/21/16 08/19/16 History Pregabalin [Lyrica] 150 mg PO BID 05/21/16 08/19/16 History diphenhydrAMINE [Benadryl] 25 mg PO DAILY PRN 05/21/16 08/19/16 History metFORMIN HCL 1,000 mg PO BID 05/21/16 08/19/16 History oxyCODONE-APAP 10-325MG [Percocet 1 tab PO QID PRN 05/21/16 08/19/16 History 10-325 mg] Ascorbic Acid [Vitamin C] 500 mg PO DAILY 06/29/16 08/19/16 History Bisacodyl 5 mg PO DAILY PRN 06/29/16 08/19/16 History Cholecalciferol [Vitamin D3] 2,000 unit PO DAILY 06/29/16 08/19/16 History Ferrous Sulfate [Iron (65 MG 325 mg PO BID 06/29/16 08/19/16 History Elemental)] Furosemide [Lasix] 40 mg PO DAILY@1300 06/29/16 08/19/16 History Magnesium Hydroxide [Milk of 2,400 mg PO DAILY PRN 06/29/16 08/19/16 History Magnesia] Multivit with Calcium,Iron,Min 1 tab PO DAILY 06/29/16 08/19/16 History [Women's Multivitamin] Polyethylene Glycol 3350 [Miralax] 17 gm PO DAILY 06/29/16 08/19/16 History Vitamin E (Dl,Tocopheryl Acet) 400 unit PO DAILY 06/29/16 08/19/16 History [Vitamin E] tiZANidine [Zanaflex] 4 mg PO DAILY 06/29/16 08/19/16 History Allergies Allergy/AdvReac Type Severity Reaction Status Date / Time adhesive tape Allergy Severe Rash/Hives Verified 08/19/16 03:09 cephalexin monohydrate Allergy Severe Rash/Hives Verified 08/19/16 03:09 [From Keflex] influenza virus vaccine, Allergy Severe Anaphylaxis Verified 08/19/16 03:09 specific [influenza virus vacc,specific] latex Allergy Severe Rash/Hives Verified 08/19/16 03:09 peanut Allergy Severe Anaphylaxis Verified 08/19/16 03:09 Penicillins Allergy Severe Swelling Verified 08/19/16 03:09 tetanus toxoid, adsorbed Allergy Intermediate Rash/Hives Verified 08/19/16 03:09 Physical Exam Vitals: Vital Signs Temp Pulse Pulse Pulse Resp BP BP 08/20/16 04:00 97.9 F 101 H 18 119/55 08/20/16 00:00 99.5 F 105 H 18 127/56 08/19/16 20:00 100.2 F H 113 H 18 130/62 08/19/16 19:05 103 H 20 08/19/16 15:45 98 F 103 H 20 08/19/16 15:28 98.8 F 08/19/16 15:13 98.8 F 08/19/16 15:09 102 H 20 134/89 08/19/16 14:22 99 F 100 20 137/87 Pulse Ox 08/20/16 04:00 93 L 08/20/16 00:00 95 08/19/16 20:00 90 L 08/19/16 19:05 08/19/16 15:45 08/19/16 15:28 08/19/16 15:13 08/19/16 15:09 97 08/19/16 14:22 100 Intake and Output 08/19/16 08/20/16 08/20/16 22:59 06:59 14:59 Intake Total 0 2450 Output Total 800 Balance 0 1650 Intake: IV 1350 Lactated Ringers 1,000 ml 1200 @ 100 mls/hr IV .Q10H GUALBERTO Rx#:[id number] Levofloxacin 750Mg-D5w 150 Pmx 750 mg In Dextrose/ Water 1 150ml.bag @ 100 mls/hr IVPB Q48H GUALBERTO Rx#: [id number] Oral 0 1100 Output: Urine 800 Other: Voiding Method Bedpan Bedpan Incontinent Incontinent # Voids 0 0 Weight 104 kg 104 kg Gen: This is a 65-year-old morbidly obese female. She is resting in bed and appears to be somewhat uncomfortable due to left hip pain and lower extremity pain. No respiratory distress noted. HEENT: Head is atraumatic, normocephalic. Pupils equal, round. Sclerae is anicteric. Oral mucous membranes slightly dry. No thrush noted. NECK: Supple. No JVD. No lymphadenopathy. No thyromegaly. LUNGS: Clear to auscultation. No wheezes or rhonchi. No intercostal retractions. HEART: Regular rate and rhythm. No murmur. ABDOMEN: Soft. Bowel sounds are present. No masses. No tenderness. EXTREMITIES: Tenderness to the left hip area. No bruising noted. Left lower extremity leg wound is covered with dressing which was not removed for evaluation and deferred to Dr. Bhatia. NEUROLOGICAL: Patient is awake, alert and oriented x3. Cranial nerves 2 through 12 are grossly intact. Results Results: Laboratory Results WBC 6.7 k/uL (3.8-10.6) 08/19/16 11:55 RBC 2.72 m/uL (3.80-5.40) L 08/19/16 11:55 Hgb 7.8 gm/dL (11.4-16.0) L 08/19/16 11:55 Hct 24.4 % (34.0-46.0) L 08/19/16 11:55 MCV 89.9 fL (80.0-100.0) 08/19/16 11:55 MCH 28.7 pg (25.0-35.0) 08/19/16 11:55 MCHC 31.9 g/dL (31.0-37.0) 08/19/16 11:55 RDW 17.1 % (11.5-15.5) H 08/19/16 11:55 Plt Count 278 k/uL (150-450) 08/19/16 11:55 Neutrophils % 70 % 08/19/16 11:55 Lymphocytes % 18 % 08/19/16 11:55 Monocytes % 6 % 08/19/16 11:55 Eosinophils % 3 % 08/19/16 11:55 Basophils % 1 % 08/19/16 11:55 Neutrophils # 4.7 k/uL (1.3-7.7) 08/19/16 11:55 Lymphocytes # 1.2 k/uL (1.0-4.8) 08/19/16 11:55 Monocytes # 0.4 k/uL (0-1.0) 08/19/16 11:55 Eosinophils # 0.2 k/uL (0-0.7) 08/19/16 11:55 Basophils # 0.0 k/uL (0-0.2) 08/19/16 11:55 Hypochromasia Moderate 08/19/16 11:55 Anisocytosis Slight 08/19/16 11:55 Sodium 141 mmol/L (137-145) 08/19/16 11:55 Potassium 4.5 mmol/L (3.5-5.1) 08/19/16 11:55 Chloride 103 mmol/L (98-107) 08/19/16 11:55 Carbon Dioxide 24 mmol/L (22-30) 08/19/16 11:55 Anion Gap 14 mmol/L 08/19/16 11:55 BUN 42 mg/dL (7-17) H 08/19/16 11:55 Creatinine 1.30 mg/dL (0.52-1.04) H 08/19/16 11:55 Est GFR (MDRD) Af Amer 50 (>60 ml/min/1.73 sqM) 08/19/16 11:55 Est GFR (MDRD) Non-Af 41 (>60 ml/min/1.73 sqM) 08/19/16 11:55 Glucose 217 mg/dL (74-99) H 08/19/16 11:55 POC Glucose (mg/dL) 269 mg/dL (75-99) H 08/20/16 11:46 POC Glu Reconciliation Specialist ID Christine Sandoval 08/20/16 11:[address] Glu mg/dL 174 mg/dL 08/19/16 11:55 Hemoglobin A1c 7.7 % (4.2-6.1) H 08/19/16 11:55 Plasma Lactic Acid Maximus 1.2 mmol/L (0.7-2.0) 08/19/16 11:55 Calcium 8.2 mg/dL (8.4-10.2) L 08/19/16 11:55 Urine Color Yellow 08/20/16 08:45 Urine Appearance Cloudy (Clear) H 08/20/16 08:45 Urine pH 5.5 (5.0-8.0) 08/20/16 08:45 Ur Specific [place] 1.013 (1.001-1.035) 08/20/16 08:45 Urine Protein Negative (Negative) 08/20/16 08:45 Urine Glucose (UA) Negative (Negative) 08/20/16 08:45 Urine Ketones Negative (Negative) 08/20/16 08:45 Urine Blood Negative (Negative) 08/20/16 08:45 Urine Nitrate Negative (Negative) 08/20/16 08:45 Urine Bilirubin Negative (Negative) 08/20/16 08:45 Urine Urobilinogen <2.0 mg/dL (<2.0) 08/20/16 08:45 Ur Leukocyte Esterase Moderate (Negative) H 08/20/16 08:45 Urine WBC 20 /hpf (0-5) H 08/20/16 08:45 Ur Squamous Epith Cells 6 /hpf (0-4) H 08/20/16 08:45 Urine Bacteria Few /hpf (None) H 08/20/16 08:45 Urine Mucus Rare /hpf (None) H 08/20/16 08:45 Urine Yeast (Budding) Rare /hpf (None) H 08/20/16 08:45 CBC & Chem 7: 08/25/16 08:05 08/24/16 09:33 Labs: Abnormal Lab Results - Last 24 Hours (Table) 08/19/16 08/19/16 08/20/16 Range/Units 16:47 20:58 06:30 POC Glucose (mg/dL) 177 H 264 H 201 H (75-99) mg/dL Assessment and Plan Plan: This is a 65-year-old female who is well-known to ID service. She has a left lower extremity ulcer for which she has started treatment at the wound healing Center. She presented with signs of sepsis with fever and tachycardia. She is complaining of left hip pain. Antibiotics altered to Levaquin and Vanco. Blood cultures showing no growth after 24 hours. Continue supportive care. Further recommendations as patient progresses. The above dictated assessment and findings were discussed with Dr. Bhatia. The impression and plan of care have been directed as dictated. Janet Bajwa nurse practitioner acting as scribe for Dr. Bhatia. Time with Patient: Greater than 30
[2016-08-20 16:49] LABS: Glucose,Whole Blood 142 mg/dL (75-99)
[2016-08-20] MEDS: LACTATED RINGERS 1,000 ML IV SCH ×2 (20:17→20:22)
[2016-08-20] MEDS: ATORVASTATIN 40 MG TAB PO SCH (20:26)
[2016-08-20 20:49] LABS: Glucose,Whole Blood 110 mg/dL (75-99)
--- NOTE | 2016-08-20 21:29 | P.CON ---
Consult Note - . Consult date: 08/20/16 Assessment/Plan:: 65-year-old woman known to the infectious disease service was recently hospitalized because of a significant injury to her left leg. She relates that she was at her home and her cat had thrown up and had a hairball. She was kneeling over the chair to clean it up and she regretfully fell outside of the chair causing the significant laceration to the lateral aspect of her left leg. She was hospitalized July 13 through July 16 and was discharged home on Fortaz 2 g every 12 hours for [address] with [address] in place. She was also treated at that time for colitis and dehydration. She then followed up in the wound healing Center with Dr. Perez and she was due for her third visit on Tuesday of this week but she states she was too sick and weak to make it to her appointment. She states that she started with diarrhea last Tuesday through Tuesday 3-4 times every day but is has not had any since Tuesday. Since Tuesday she complains of body ache, cold symptoms cough, nausea and vomiting 2. She states she came into the emergency center and was sent home. She presented to the emergency center initially on August 19 at 3 a.m. and underwent a left tib- fib x-ray that showed stable findings. She was afebrile. White count was 6.8. She was discharged home to follow-up with her primary care physician. She returned later in the day on August 19 and had fever of 101.8 and was tachycardic. White count was 6.7 and hemoglobin 7.8. BUN 42 and creatinine 1.3. Lactic acid 1.3. Blood culture showing no growth after 24 hours and urine is collected. She underwent a chest x-ray which was limited. She received 1 dose of Azactam and admitted to the selective care unit and started on Levaquin and vancomycin. She states she is feeling better in general since she's been here. Please see the consult note as dictated by [employer]PUTY [employer] MARSHAL HaimJanet Bajwa. As noted on the exam there is no marked worsening to the left leg. The ulceration persists. There is dense erythema around the ulceration the lateral aspect of the calf. End there is no evidence of extensive ascending erythema to the middle aspect of the thigh. This entire area is very tender. As the patient feels poorly with fever and chill. Consult has evidence of worsening sepsis related to her left lower extremity open ulceration and cellulitis. For antibiotic therapy she is currently be treated with levofloxacin and vancomycin which based on her prior cultures Could potentially be adequate. Culture is been requested. Which may further help direct antibiotic therapy. The patient regardless is in need of new IV access. PICC line has been requested. If possible she desires return to extended care with [facility] to receive intravenous antibiotic therapy and rehab to improve her overall strength. I agree with evaluation, assessment and plan as dictated by nurse practitioner Mrs. Janet Bajwa.
[2016-08-21] MEDS: HYDROmorphone 1 MG/ML 1 ML SYRINGE IVP PRN ×5 (03:10→19:55)
[2016-08-21] MEDS: LACTATED RINGERS 1,000 ML IV SCH ×2 (06:08→16:31)
[2016-08-21 06:29] LABS: Glucose,Whole Blood 186 mg/dL (75-99)
[2016-08-21] MEDS: metFORMIN 500 MG TAB PO SCH ×2 (06:52→17:35)
[2016-08-21] MEDS: PANTOPRAZOLE 40 MG TABLET PO SCH (06:52)
[2016-08-21] MEDS: INSULIN LISPRO (humaLOG) 300 UNIT/3 ML VIAL SQ SCH ×4 (06:52→21:25)
[2016-08-21 07:37] LABS: Anisocytosis Slight; CH 28.2; HCT 26.8 % (34.0-46.0); HDW 3.38; HGB 8.2 gm/dL (11.4-16.0); Hypochromasia Moderate; MCH 27.9 pg (25.0-35.0); MCHC 30.6 g/dL (31.0-37.0); MCV 91.2 fL (80.0-100.0); Mean Platelet Volume 7.5; RBC 2.94 m/uL (3.80-5.40); RDW 16.8 % (11.5-15.5); WBC 6.1 k/uL (3.8-10.6)
[2016-08-21 07:45] LABS: ALT 35 U/L (9-52); AST 22 U/L (14-36); Alkaline Phosphatase 109 U/L (38-126); Anion Gap 13 mmol/L; Blood Urea Nitrogen 32 mg/dL (7-17); Calcium 8.5 mg/dL (8.4-10.2); Carbon Dioxide 24 mmol/L (22-30); Chloride 104 mmol/L (98-107); Glucose 166 mg/dL (74-99); Non-African American GFR(MDRD) 50 (>60 ml/min/1.73 sqM); Potassium 3.9 mmol/L (3.5-5.1); Sodium 141 mmol/L (137-145); Total Bilirubin 0.4 mg/dL (0.2-1.3)
[2016-08-21] MEDS: POTASSIUM CHLORIDE ER 20 MEQ TAB.ER PO SCH (08:25)
[2016-08-21] MEDS: CHOLECALCIFEROL 1,000 UNIT TAB PO SCH (08:25)
[2016-08-21] MEDS: DULoxetine HCL 60 MG CAPSULE.DR PO SCH (08:26)
[2016-08-21] MEDS: ALLOPURINOL 100 MG TAB PO SCH ×2 (08:26→19:57)
[2016-08-21] MEDS: VITAMIN E (DL,TOCOPHERYL ACET) 400 UNIT CAP PO SCH (08:26)
[2016-08-21] MEDS: FUROSEMIDE 80 MG TAB PO SCH (08:26)
[2016-08-21] MEDS: ASCORBIC ACID 500 MG TAB PO SCH (08:26)
[2016-08-21] MEDS: tiZANidine 4 MG TAB PO SCH (08:26)
[2016-08-21] MEDS: FERROUS SULFATE 325 MG TAB PO SCH ×2 (08:26→19:57)
[2016-08-21] MEDS: CALCIUM CARB-VIT D 500MG-200UN 1 EACH TAB PO SCH (08:26)
[2016-08-21] MEDS: PREGABALIN 75 MG CAP PO SCH ×2 (08:27→19:58)
[2016-08-21] MEDS: POLYETHYLENE GLYCOL 3350 17 GM POWD.PACK PO SCH (08:27)
[2016-08-21] MEDS: HEPARIN SODIUM,PORCINE 5,000 UNIT/ML 1 ML VIAL SQ SCH ×2 (08:27→16:30)
[2016-08-21] MEDS: VANCOMYCIN 1,750 MG in SODIUM CHLORIDE 0.9% 250 ML IVPB SCH (08:27)
[2016-08-21] MEDS: FUROSEMIDE 40 MG TAB PO SCH (12:49)
[2016-08-21] MEDS: LEVOFLOXACIN 750MG-D5W PMX 750 MG in DEXTROSE/WATER 1 150ML.BAG IVPB SCH (16:30)
[2016-08-21 16:46] LABS: Glucose,Whole Blood 161 mg/dL (75-99)
--- NOTE | 2016-08-21 17:00 | P.PN ---
Subjective Principal diagnosis: Fever and leg pain 65-year-old woman known to the infectious disease service was recently hospitalized because of a significant injury to her left leg. She relates that she was at her home and her cat had thrown up and had a hairball. She was kneeling over the chair to clean it up and she regretfully fell outside of the chair causing the significant laceration to the lateral aspect of her left leg. She was hospitalized July 13 through July 16 and was discharged home on Fortaz 2 g every 12 hours for [address] She was also treated at that time for colitis and dehydration. She then followed up in the wound healing Center with Dr. Perez and she was due for her third visit on Tuesday of this week but she states she was too sick and weak to make it to her appointment. She states that she started with diarrhea last Tuesday through Tuesday 3-4 times every day but is has not had any since Tuesday. Since Tuesday she complains of body ache, cold symptoms cough, nausea and vomiting 2. She states she came into the emergency center and was sent home. She presented to the emergency center initially on August 19 at 3 a.m. and underwent a left tib- fib x-ray that showed stable findings. She was afebrile. White count was 6.8. She was discharged home to follow-up with her primary care physician. She returned later in the day on August 19 and had fever of 101.8 and was tachycardic. White count was 6.7 and hemoglobin 7.8. BUN 42 and creatinine 1.3. Lactic acid 1.3. Blood culture showing no growth after 24 hours and urine is collected. She underwent a chest x-ray which was limited. She received 1 dose of Azactam and admitted to the selective care unit and started on Levaquin and vancomycin. She states she is feeling better in general since she's been here. Patient still complaining of some pain to her left leg. It is slightly better than yesterday but is still persistent. Requiring pain medications. He still has had some sensation of fever. Objective - Vital Signs Vital signs: Vital Signs Temp 97.7 F 08/21/16 16:00 Pulse 85 08/21/16 16:00 Resp 18 08/21/16 16:00 BP 123/67 08/21/16 16:00 Pulse Ox 98 08/21/16 16:00 Intake & Output 08/20/16 08/21/16 08/21/16 18:59 06:59 18:59 Intake Total 2170 1440 1280 Output Total 1250 2400 Balance 920 -960 1280 Weight 104 kg 95 kg Intake: IV 1200 700 Lactated Ringers 1,000 ml 1200 700 @ 100 mls/hr IV .Q10H GUALBERTO Rx#:[id number] Intake, IV Titration 250 Amount Vancomycin 1,750 mg In 250 Sodium Chloride 0.9% 250 ml @ 125 mls/hr IVPB Q24HR GUALBERTO Rx#:[id number] Oral 720 1440 580 Output: Urine 1250 2400 Other: Voiding Method Bedpan Incontinent # Voids 1 1 # Bowel Movements 0 - Exam Gen: This is a 65-year-old morbidly obese female. She is resting in bed and appears to be somewhat uncomfortable due to left hip pain and lower extremity pain. No respiratory distress noted. HEENT: Head is atraumatic, normocephalic. Pupils equal, round. Sclerae is anicteric. Oral mucous membranes slightly dry. No thrush noted. NECK: Supple. No JVD. No lymphadenopathy. No thyromegaly. LUNGS: Clear to auscultation. No wheezes or rhonchi. No intercostal retractions. HEART: Regular rate and rhythm. No murmur. ABDOMEN: Soft. Bowel sounds are present. No masses. No tenderness. EXTREMITIES: Tenderness to the left hip area. No bruising noted. Left lower extremity leg wound is large and measures at 8.2 x 3.4 x 0.2. There some slough at the base. This began surrounding erythema. There is ascending erythema. However the erythema gets up onto the thigh is slightly improved from yesterday. NEUROLOGICAL: Patient is awake, alert and oriented x3 - Labs CBC & Chem 7: 08/21/16 06:41 08/21/16 06:41 Labs: Abnormal Lab Results - Last 24 Hours (Table) 08/20/16 08/21/16 08/21/16 Range/Units 20:48 06:27 06:41 RBC 2.94 L (3.80-5.40) m/uL Hgb 8.2 L (11.4-16.0) gm/dL Hct 26.8 L (34.0-46.0) % MCHC 30.6 L (31.0-37.0) g/dL RDW 16.8 H (11.5-15.5) % BUN (7-17) mg/dL Creatinine (0.52-1.04) mg/dL Glucose (74-99) mg/dL POC Glucose (mg/dL) 110 H 186 H (75-99) mg/dL Total Protein (6.3-8.2) g/dL Albumin (3.5-5.0) g/dL 08/21/16 08/21/16 Range/Units 06:41 16:43 RBC (3.80-5.40) m/uL Hgb (11.4-16.0) gm/dL Hct (34.0-46.0) % MCHC (31.0-37.0) g/dL RDW (11.5-15.5) % BUN 32 H (7-17) mg/dL Creatinine 1.10 H (0.52-1.04) mg/dL Glucose 166 H (74-99) mg/dL POC Glucose (mg/dL) 161 H (75-99) mg/dL Total Protein 6.0 L (6.3-8.2) g/dL Albumin 2.6 L (3.5-5.0) g/dL Microbiology - Last 24 Hours (Table) 08/20/16 18:56 Gram Stain - Preliminary Leg - Left Wound Culture - Preliminary Laboratory Results WBC 6.1 k/uL (3.8-10.6) 08/21/16 06:41 RBC 2.94 m/uL (3.80-5.40) L 08/21/16 06:41 Hgb 8.2 gm/dL (11.4-16.0) L 08/21/16 06:41 Hct 26.8 % (34.0-46.0) L 08/21/16 06:41 MCV 91.2 fL (80.0-100.0) 08/21/16 06:41 MCH 27.9 pg (25.0-35.0) 08/21/16 06:41 MCHC 30.6 g/dL (31.0-37.0) L 08/21/16 06:41 RDW 16.8 % (11.5-15.5) H 08/21/16 06:41 Plt Count 244 k/uL (150-450) 08/21/16 06:41 Neutrophils % 70 % 08/19/16 11:55 Lymphocytes % 18 % 08/19/16 11:55 Monocytes % 6 % 08/19/16 11:55 Eosinophils % 3 % 08/19/16 11:55 Basophils % 1 % 08/19/16 11:55 Neutrophils # 4.7 k/uL (1.3-7.7) 08/19/16 11:55 Lymphocytes # 1.2 k/uL (1.0-4.8) 08/19/16 11:55 Monocytes # 0.4 k/uL (0-1.0) 08/19/16 11:55 Eosinophils # 0.2 k/uL (0-0.7) 08/19/16 11:55 Basophils # 0.0 k/uL (0-0.2) 08/19/16 11:55 Hypochromasia Moderate 08/21/16 06:41 Anisocytosis Slight 08/21/16 06:41 Sodium 141 mmol/L (137-145) 08/21/16 06:41 Potassium 3.9 mmol/L (3.5-5.1) 08/21/16 06:41 Chloride 104 mmol/L (98-107) 08/21/16 06:41 Carbon Dioxide 24 mmol/L (22-30) 08/21/16 06:41 Anion Gap 13 mmol/L 08/21/16 06:41 BUN 32 mg/dL (7-17) H 08/21/16 06:41 Creatinine 1.10 mg/dL (0.52-1.04) H 08/21/16 06:41 Est GFR (MDRD) Af Amer >60 (>60 ml/min/1.73 sqM) 08/21/16 06:41 Est GFR (MDRD) Non-Af 50 (>60 ml/min/1.73 sqM) 08/21/16 06:41 Glucose 166 mg/dL (74-99) H 08/21/16 06:41 POC Glucose (mg/dL) 161 mg/dL (75-99) H 08/21/16 16:43 POC Glu Distribution Warehouse Manager ID Martha Tran 08/21/16 16:[address] Glu mg/dL 174 mg/dL 08/19/16 11:55 Hemoglobin A1c 7.7 % (4.2-6.1) H 08/19/16 11:55 Plasma Lactic Acid Maximus 1.2 mmol/L (0.7-2.0) 08/19/16 11:55 Calcium 8.5 mg/dL (8.4-10.2) 08/21/16 06:41 Total Bilirubin 0.4 mg/dL (0.2-1.3) 08/21/16 06:41 AST 22 U/L (14-36) 08/21/16 06:41 ALT 35 U/L (9-52) 08/21/16 06:41 Alkaline Phosphatase 109 U/L (38-126) 08/21/16 06:41 Total Protein 6.0 g/dL (6.3-8.2) L 08/21/16 06:41 Albumin 2.6 g/dL (3.5-5.0) L 08/21/16 06:41 Urine Color Yellow 08/20/16 08:45 Urine Appearance Cloudy (Clear) H 08/20/16 08:45 Urine pH 5.5 (5.0-8.0) 08/20/16 08:45 Ur Specific [place] 1.013 (1.001-1.035) 08/20/16 08:45 Urine Protein Negative (Negative) 08/20/16 08:45 Urine Glucose (UA) Negative (Negative) 08/20/16 08:45 Urine Ketones Negative (Negative) 08/20/16 08:45 Urine Blood Negative (Negative) 08/20/16 08:45 Urine Nitrate Negative (Negative) 08/20/16 08:45 Urine Bilirubin Negative (Negative) 08/20/16 08:45 Urine Urobilinogen <2.0 mg/dL (<2.0) 08/20/16 08:45 Ur Leukocyte Esterase Moderate (Negative) H 08/20/16 08:45 Urine WBC 20 /hpf (0-5) H 08/20/16 08:45 Ur Squamous Epith Cells 6 /hpf (0-4) H 08/20/16 08:45 Urine Bacteria Few /hpf (None) H 08/20/16 08:45 Urine Mucus Rare /hpf (None) H 08/20/16 08:45 Urine Yeast (Budding) Rare /hpf (None) H 08/20/16 08:45 Microbiology 08/19/16 12:42 Blood Blood Culture - Preliminary No Growth after 48 hours 08/20/16 18:56 Leg - Left Gram Stain - Preliminary 08/20/16 18:56 Leg - Left Wound Culture - Preliminary Assessment and Plan (1) Cellulitis and abscess of leg Narrative/Plan: 65-year-old woman who has a history of significant debility utilizes a power chair for mobility. Was at home not feeling well. She had some increasing amount of swelling and drainage to her left leg chronic ulceration. She developed increasing amount of cellulitis as well as fever and increasing pain. On sequently she was brought in the hospital. Cultures are process. Seems to be improving with current antibiotic therapy of vancomycin and levofloxacin. This should be further alter depending on the findings of her cultures. She is hoping to go to the [facility] at her discharge. IV access is requested with a PICC line and Tuesday. Status: Acute
--- NOTE | 2016-08-21 19:13 | PN ---
DATE OF SERVICE: 08/21/2016 I am covering for Dr. Gurrola. This 65-year-old woman with a past medical history of multiple medical problems, admitted with features of sepsis. The patient left lower limb injury also. The patient is on p.o. antibiotics. The patient was features of sepsis and the patient being closely monitored at this time. As mentioned earlier the cultures are showing negative at this time. Past medical history reviewed. REVIEW OF SYSTEMS: CARDIOVASCULAR: No angina or palpitations. RESPIRATORY: As mentioned earlier. GI: As mentioned earlier. GENITOURINARY: No dysuria. Nervous system: No numbness or weakness. Allergy/immunology: No asthma or hayfever. MUSCULOSKELETAL: As mentioned earlier. HEMATOLOGY/ONCOLOGY: No history of anemia. PHYSICAL EXAMINATION: The patient is alert and oriented times three. Pulse 101. Blood pressure 120/56. Respiratory rate 18. Temperature 97.5. Pulse ox 95% on room air. HEENT: Conjunctivae pale. Oral mucosa moist. NECK: No jugular venous distention. No carotid bruit. No lymph node enlargement. CARDIOVASCULAR: S1. S2 muffled. No S3, no S4. RESPIRATORY: Breath sounds diminished at the bases. No rhonchi, no crackles. ABDOMEN: Soft, obese, nontender. Legs: Left leg minimal edema present otherwise left leg wound also which is rather healing, but significant purulence also present. LYMPHATICS: No lymph nodes palpable in the neck, axillae or groin. SKIN: No ulcer, rash or bleeding. CENTRAL NERVOUS SYSTEM: No focal deficits. LABS: Hemoglobin 8.2, creatinine is 1.10. ASSESSMENT: 1. Left lower extremity wound with possible sepsis with fever and tachycardia present on admission. 2. Anemia, normocytic anemia of chronic disease. 3. Chronic kidney disease stage III. 4. History of hypoalbuminemia. 5. History of obesity with body mass index of 34.5. 6. History of diabetes type 2. 7. History of deep venous thrombosis. 8. History of migraine headaches. 9. History of morbid obesity. 10. History of left leg cellulitis. 11. 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 12. History of bariatric surgery. 13. History of degenerative joint disease. 14. History of gastric bypass and [place]-En-Y. 15. History of panic disorder. 16. Anxiety, depression, not otherwise specified. 17. Remote history of nicotine dependence. 18. History of cocaine and marijuana in the past. RECOMMENDATIONS AND DISCUSSION: In this 65-year-old woman who presented with multiple complex medical issues we will monitor the patient closely, continue the current medications, continue symptomatic treatment , continue with IV antibiotics to local wounds. Dressing the most blood cultures negative at this time. Follow closely with infectious disease Dr. Bhatia and repeat labs. DVT prophylaxis. Guarded prognosis because of multiple complex medical issues. Further recommendations to follow. MTDD
[2016-08-21] MEDS: diphenhydrAMINE 25 MG CAP PO PRN (19:57)
[2016-08-21] MEDS: ATORVASTATIN 40 MG TAB PO SCH (19:57)
[2016-08-21 21:08] LABS: Glucose,Whole Blood 124 mg/dL (75-99)
[2016-08-21 22:17] LABS: Glucose,Whole Blood 223 mg/dL (75-99)
[2016-08-22] MEDS: LACTATED RINGERS 1,000 ML IV SCH ×3 (00:52→21:46)
[2016-08-22] MEDS: HEPARIN SODIUM,PORCINE 5,000 UNIT/ML 1 ML VIAL SQ SCH ×3 (00:52→17:23)
[2016-08-22] MEDS: HYDROmorphone 1 MG/ML 1 ML SYRINGE IVP PRN ×6 (00:54→21:56)
[2016-08-22] MEDS: diphenhydrAMINE 25 MG CAP PO PRN ×4 (01:53→21:56)
[2016-08-22 07:24] LABS: Glucose,Whole Blood 204 mg/dL (75-99)
[2016-08-22] MEDS ORDERED: VANCOMYCIN TROUGH DUE 1 EACH MISC MISCELLANE ONE (08:00)
[2016-08-22] MEDS: INSULIN LISPRO (humaLOG) 300 UNIT/3 ML VIAL SQ SCH ×4 (08:24→21:45)
[2016-08-22] MEDS: DULoxetine HCL 60 MG CAPSULE.DR PO SCH (08:24)
[2016-08-22] MEDS: CHOLECALCIFEROL 1,000 UNIT TAB PO SCH (08:24)
[2016-08-22] MEDS: PREGABALIN 75 MG CAP PO SCH ×2 (08:24→21:46)
[2016-08-22] MEDS: metFORMIN 500 MG TAB PO SCH ×2 (08:24→17:23)
[2016-08-22] MEDS: PANTOPRAZOLE 40 MG TABLET PO SCH (08:25)
[2016-08-22] MEDS: FERROUS SULFATE 325 MG TAB PO SCH ×2 (08:25→21:45)
[2016-08-22] MEDS: VITAMIN E (DL,TOCOPHERYL ACET) 400 UNIT CAP PO SCH (08:25)
[2016-08-22] MEDS: tiZANidine 4 MG TAB PO SCH (08:25)
[2016-08-22] MEDS: ALLOPURINOL 100 MG TAB PO SCH ×2 (08:26→21:45)
[2016-08-22] MEDS: CALCIUM CARB-VIT D 500MG-200UN 1 EACH TAB PO SCH (08:26)
[2016-08-22] MEDS: ASCORBIC ACID 500 MG TAB PO SCH (08:26)
[2016-08-22] MEDS: FUROSEMIDE 80 MG TAB PO SCH (08:26)
[2016-08-22] MEDS: POLYETHYLENE GLYCOL 3350 17 GM POWD.PACK PO SCH (08:27)
[2016-08-22] MEDS: VANCOMYCIN 1,750 MG in SODIUM CHLORIDE 0.9% 250 ML IVPB SCH (08:38)
[2016-08-22 08:45] LABS: Anisocytosis Slight; CH 28.2; CHCM 30.9; HCT 24.4 % (34.0-46.0); HDW 3.34; HGB 7.4 gm/dL (11.4-16.0); Hypochromasia Moderate; MCH 27.7 pg (25.0-35.0); MCHC 30.2 g/dL (31.0-37.0); MCV 91.5 fL (80.0-100.0); Mean Platelet Volume 7.9; RBC 2.66 m/uL (3.80-5.40); RDW 16.9 % (11.5-15.5); WBC 5.3 k/uL (3.8-10.6)
[2016-08-22 08:55] LABS: ALT 31 U/L (9-52); AST 24 U/L (14-36); Alkaline Phosphatase 95 U/L (38-126); Anion Gap 14 mmol/L; Blood Urea Nitrogen 30 mg/dL (7-17); Calcium 8.3 mg/dL (8.4-10.2); Carbon Dioxide 22 mmol/L (22-30); Chloride 104 mmol/L (98-107); Glucose 291 mg/dL (74-99); Non-African American GFR(MDRD) 50 (>60 ml/min/1.73 sqM); Potassium 3.9 mmol/L (3.5-5.1); Sodium 140 mmol/L (137-145); Total Bilirubin 0.4 mg/dL (0.2-1.3); Total Protein 5.9 g/dL (6.3-8.2)
[2016-08-22] MEDS ORDERED: DEXTROAMPHETAMINE PO SCH (09:00)
[2016-08-22] MEDS ORDERED: AMPHETAMINE PO SCH (09:00)
[2016-08-22] MEDS: POTASSIUM CHLORIDE ER 20 MEQ TAB.ER PO SCH (09:11)
[2016-08-22 12:08] LABS: Glucose,Whole Blood 182 mg/dL (75-99)
[2016-08-22] MEDS: MULTIVITAMINS, THERA 1 EACH TAB PO SCH (12:30)
[2016-08-22] MEDS: FUROSEMIDE 40 MG TAB PO SCH (12:42)
--- NOTE | 2016-08-22 16:16 | P.PN ---
Subjective Principal diagnosis: Fever and leg pain 65-year-old woman known to the infectious disease service was recently hospitalized because of a significant injury to her left leg. She relates that she was at her home and her cat had thrown up and had a hairball. She was kneeling over the chair to clean it up and she regretfully fell outside of the chair causing the significant laceration to the lateral aspect of her left leg. She was hospitalized July 13 through July 16 and was discharged home on Fortaz 2 g every 12 hours for [address] in [address]. She was also treated at that time for colitis and dehydration. She then followed up in the wound healing Center with Dr. Perez and she was due for her third visit on Tuesday of this week but she states she was too sick and weak to make it to her appointment. She states that she started with diarrhea last Tuesday through Tuesday 3-4 times every day but is has not had any since Tuesday. Since Tuesday she complains of body ache, cold symptoms cough, nausea and vomiting 2. She states she came into the emergency center and was sent home. She presented to the emergency center initially on August 19 at 3 a.m. and underwent a left tib- fib x-ray that showed stable findings. She was afebrile. White count was 6.8. She was discharged home to follow-up with her primary care physician. She returned later in the day on August 19 and had fever of 101.8 and was tachycardic. White count was 6.7 and hemoglobin 7.8. BUN 42 and creatinine 1.3. Lactic acid 1.3. Blood culture showing no growth after 24 hours and urine is collected. She underwent a chest x-ray which was limited. She received 1 dose of Azactam and admitted to the selective care unit and started on Levaquin and vancomycin. She states she is feeling better in general since she's been here. Patient still complaining of some pain to her left leg. It is better than yesterday but is still persistent. Requiring pain medications. He still has had some sensation of fever. Objective - Vital Signs Vital signs: Vital Signs Temp 98.7 F 08/22/16 15:00 Pulse 87 08/22/16 15:00 Resp 16 08/22/16 15:00 BP 122/65 08/22/16 15:00 Pulse Ox 92 L 08/22/16 15:00 Intake & Output 08/21/16 08/22/16 08/22/16 18:59 06:59 18:59 Intake Total 1280 480 Balance 1280 480 Intake: IV 700 Lactated Ringers 1,000 ml 700 @ 100 mls/hr IV .Q10H GUALBERTO Rx#:[id number] Oral 580 480 Other: Voiding Method Bedpan Incontinent # Voids 1 2 3 # Bowel Movements 1 0 - Exam Gen: This is a 65-year-old morbidly obese female. She is resting in bed and appears to be somewhat uncomfortable due to left hip pain and lower extremity pain. No respiratory distress noted. HEENT: Head is atraumatic, normocephalic. Pupils equal, round. Sclerae is anicteric. Oral mucous membranes slightly dry. No thrush noted. NECK: Supple. No JVD. No lymphadenopathy. No thyromegaly. LUNGS: Clear to auscultation. No wheezes or rhonchi. No intercostal retractions. HEART: Regular rate and rhythm. No murmur. ABDOMEN: Soft. Bowel sounds are present. No masses. No tenderness. EXTREMITIES: Tenderness to the left hip area. No bruising noted. Left lower extremity leg wound is large and measures at 8.2 x 3.4 x 0.2. There some slough at the base. This began surrounding erythema. There is ascending erythema. However the erythema that ascended to the thigh has definitely improved. The distal he is still warm erythematous and tender. NEUROLOGICAL: Patient is awake, alert and oriented x3 - Labs CBC & Chem 7: 08/22/16 08:32 08/22/16 08:32 Labs: Abnormal Lab Results - Last 24 Hours (Table) 08/21/16 08/21/16 08/21/16 Range/Units 11:54 16:43 21:06 RBC (3.80-5.40) m/uL Hgb (11.4-16.0) gm/dL Hct (34.0-46.0) % MCHC (31.0-37.0) g/dL RDW (11.5-15.5) % BUN (7-17) mg/dL Creatinine (0.52-1.04) mg/dL Glucose (74-99) mg/dL POC Glucose (mg/dL) 223 H 161 H 124 H (75-99) mg/dL Calcium (8.4-10.2) mg/dL Total Protein (6.3-8.2) g/dL Albumin (3.5-5.0) g/dL 08/22/16 08/22/16 08/22/16 Range/Units 07:21 08:32 08:32 RBC 2.66 L (3.80-5.40) m/uL Hgb 7.4 L (11.4-16.0) gm/dL Hct 24.4 L (34.0-46.0) % MCHC 30.2 L (31.0-37.0) g/dL RDW 16.9 H (11.5-15.5) % BUN 30 H (7-17) mg/dL Creatinine 1.10 H (0.52-1.04) mg/dL Glucose 291 H (74-99) mg/dL POC Glucose (mg/dL) 204 H (75-99) mg/dL Calcium 8.3 L (8.4-10.2) mg/dL Total Protein 5.9 L (6.3-8.2) g/dL Albumin 2.5 L (3.5-5.0) g/dL 08/22/16 Range/Units 11:59 RBC (3.80-5.40) m/uL Hgb (11.4-16.0) gm/dL Hct (34.0-46.0) % MCHC (31.0-37.0) g/dL RDW (11.5-15.5) % BUN (7-17) mg/dL Creatinine (0.52-1.04) mg/dL Glucose (74-99) mg/dL POC Glucose (mg/dL) 182 H (75-99) mg/dL Calcium (8.4-10.2) mg/dL Total Protein (6.3-8.2) g/dL Albumin (3.5-5.0) g/dL Microbiology - Last 24 Hours (Table) 08/20/16 18:56 Gram Stain - Preliminary Leg - Left Wound Culture - Preliminary Presumptive MRSA Laboratory Results WBC 5.3 k/uL (3.8-10.6) 08/22/16 08:32 RBC 2.66 m/uL (3.80-5.40) L 08/22/16 08:32 Hgb 7.4 gm/dL (11.4-16.0) L 08/22/16 08:32 Hct 24.4 % (34.0-46.0) L 08/22/16 08:32 MCV 91.5 fL (80.0-100.0) 08/22/16 08:32 MCH 27.7 pg (25.0-35.0) 08/22/16 08:32 MCHC 30.2 g/dL (31.0-37.0) L 08/22/16 08:32 RDW 16.9 % (11.5-15.5) H 08/22/16 08:32 Plt Count 240 k/uL (150-450) 08/22/16 08:32 Neutrophils % 70 % 08/19/16 11:55 Lymphocytes % 18 % 08/19/16 11:55 Monocytes % 6 % 08/19/16 11:55 Eosinophils % 3 % 08/19/16 11:55 Basophils % 1 % 08/19/16 11:55 Neutrophils # 4.7 k/uL (1.3-7.7) 08/19/16 11:55 Lymphocytes # 1.2 k/uL (1.0-4.8) 08/19/16 11:55 Monocytes # 0.4 k/uL (0-1.0) 08/19/16 11:55 Eosinophils # 0.2 k/uL (0-0.7) 08/19/16 11:55 Basophils # 0.0 k/uL (0-0.2) 08/19/16 11:55 Hypochromasia Moderate 08/22/16 08:32 Anisocytosis Slight 08/22/16 08:32 Sodium 140 mmol/L (137-145) 08/22/16 08:32 Potassium 3.9 mmol/L (3.5-5.1) 08/22/16 08:32 Chloride 104 mmol/L (98-107) 08/22/16 08:32 Carbon Dioxide 22 mmol/L (22-30) 08/22/16 08:32 Anion Gap 14 mmol/L 08/22/16 08:32 BUN 30 mg/dL (7-17) H 08/22/16 08:32 Creatinine 1.10 mg/dL (0.52-1.04) H 08/22/16 08:32 Est GFR (MDRD) Af Amer >60 (>60 ml/min/1.73 sqM) 08/22/16 08:32 Est GFR (MDRD) Non-Af 50 (>60 ml/min/1.73 sqM) 08/22/16 08:32 Glucose 291 mg/dL (74-99) H 08/22/16 08:32 POC Glucose (mg/dL) 182 mg/dL (75-99) H 08/22/16 11:59 POC Glu Certified Meeting Professional Urmila Almeida 08/22/16 11:[address] Glu mg/dL 174 mg/dL 08/19/16 11:55 Hemoglobin A1c 7.7 % (4.2-6.1) H 08/19/16 11:55 Plasma Lactic Acid Maximus 1.2 mmol/L (0.7-2.0) 08/19/16 11:55 Calcium 8.3 mg/dL (8.4-10.2) L 08/22/16 08:32 Total Bilirubin 0.4 mg/dL (0.2-1.3) 08/22/16 08:32 AST 24 U/L (14-36) 08/22/16 08:32 ALT 31 U/L (9-52) 08/22/16 08:32 Alkaline Phosphatase 95 U/L (38-126) 08/22/16 08:32 Total Protein 5.9 g/dL (6.3-8.2) L 08/22/16 08:32 Albumin 2.5 g/dL (3.5-5.0) L 08/22/16 08:32 Urine Color Yellow 08/20/16 08:45 Urine Appearance Cloudy (Clear) H 08/20/16 08:45 Urine pH 5.5 (5.0-8.0) 08/20/16 08:45 Ur Specific [place] 1.013 (1.001-1.035) 08/20/16 08:45 Urine Protein Negative (Negative) 08/20/16 08:45 Urine Glucose (UA) Negative (Negative) 08/20/16 08:45 Urine Ketones Negative (Negative) 08/20/16 08:45 Urine Blood Negative (Negative) 08/20/16 08:45 Urine Nitrate Negative (Negative) 08/20/16 08:45 Urine Bilirubin Negative (Negative) 08/20/16 08:45 Urine Urobilinogen <2.0 mg/dL (<2.0) 08/20/16 08:45 Ur Leukocyte Esterase Moderate (Negative) H 08/20/16 08:45 Urine WBC 20 /hpf (0-5) H 08/20/16 08:45 Ur Squamous Epith Cells 6 /hpf (0-4) H 08/20/16 08:45 Urine Bacteria Few /hpf (None) H 08/20/16 08:45 Urine Mucus Rare /hpf (None) H 08/20/16 08:45 Urine Yeast (Budding) Rare /hpf (None) H 08/20/16 08:45 Vancomycin Trough 16.5 ug/mL 08/22/16 08:32 Microbiology 08/19/16 12:42 Blood Blood Culture - Preliminary No Growth after 72 hours 08/20/16 18:56 Leg - Left Gram Stain - Preliminary 08/20/16 18:56 Leg - Left Wound Culture - Preliminary Presumptive MRSA Assessment and Plan (1) Cellulitis and abscess of leg Narrative/Plan: 65-year-old woman who has a history of significant debility utilizes a power chair for mobility. Was at home not feeling well. She had some increasing amount of swelling and drainage to her left leg chronic ulceration. She developed increasing amount of cellulitis as well as fever and increasing pain. Consequently she was brought in the hospital. Cultures are revealing presumptive MRSA. Seems to be improving with current antibiotic therapy of vancomycin and levofloxacin. This could be further altered depending on the findings of her cultures. She is hoping to go to the [facility] at her discharge. IV access is requested with a PICC line and Tuesday. Status: Acute
[2016-08-22 17:52] LABS: Glucose,Whole Blood 138 mg/dL (75-99)
[2016-08-22 21:00] LABS: Glucose,Whole Blood 189 mg/dL (75-99)
--- NOTE | 2016-08-22 21:42 | PN ---
I am covering for Dr. Gurrola. This 65-year-old woman who was admitted with left lower extremity infections and sepsis, and fever is being closely monitored. No chest pain. No palpitations. No fever. ECF rehab suggested. No chest pain. No palpitations. On exam, alert and oriented times three. Pulse 97, blood pressure 143/58, respiratory rate 20, temperature 99.2, pulse ox 94% on room air. HEENT: Conjunctivae normal. NECK: No jugular venous distention. CARDIOVASCULAR: S1, S2 muffled. RESPIRATORY: Breath sounds diminished at the bases. No rhonchi. No crackles. ABDOMEN: Soft, nontender. LEGS: Left leg significant infection present. CENTRAL NERVOUS SYSTEM: No focal deficits. LABS: Hemoglobin 7.4. presumptive MRSA from the wound cultures. ASSESSMENT: 1. Left lower extremity wound with possible sepsis and fever and tachycardia present on admission with possibly methicillin-resistant Staphylococcus aureus. 2. Anemia, normocytic, anemia of chronic disease. 3. Chronic kidney disease, stage III. 4. History of hypoalbuminemia. 5. Obesity, with body mass index 34.4. 6. History of diabetes type 2. 7. History of deep venous thrombosis. 8. History of migraine headaches. 9. Morbid obesity. 10. Left leg cellulitis history. 11. Gait dysfunction. 12. History of VRE. 13. History of bariatric surgery. 14. History of degenerative joint disease. 15. History of gastric bypass, [place]-En-Y. 16. History of panic disorder. 17. History of depression, not otherwise specified. 18. Remote history of nicotine dependence. 19. History of cocaine and marijuana in the past. RECOMMENDATIONS AND DISCUSSION: Recommend to continue current medications, continue with monitoring, symptomatic treatment. At this time, I recommend to continue with the current medications. Continue with antibiotics. PICC line. Possible ECF rehab. See orders for details. Dr. Gurrola will follow. Further recommendations to follow. [facility]
[2016-08-22] MEDS: ATORVASTATIN 40 MG TAB PO SCH (21:45)
[2016-08-23] MEDS: HEPARIN SODIUM,PORCINE 5,000 UNIT/ML 1 ML VIAL SQ SCH ×3 (00:22→17:53)
[2016-08-23] MEDS: HYDROmorphone 1 MG/ML 1 ML SYRINGE IVP PRN ×6 (04:49→21:59)
[2016-08-23] MEDS: diphenhydrAMINE 25 MG CAP PO PRN ×3 (07:42→21:07)
[2016-08-23] MEDS: INSULIN LISPRO (humaLOG) 300 UNIT/3 ML VIAL SQ SCH ×4 (07:43→21:07)
[2016-08-23] MEDS: POLYETHYLENE GLYCOL 3350 17 GM POWD.PACK PO SCH (07:43)
[2016-08-23] MEDS: FUROSEMIDE 80 MG TAB PO SCH (07:43)
[2016-08-23] MEDS: DULoxetine HCL 60 MG CAPSULE.DR PO SCH (07:44)
[2016-08-23] MEDS: metFORMIN 500 MG TAB PO SCH ×2 (07:44→17:53)
[2016-08-23] MEDS: PANTOPRAZOLE 40 MG TABLET PO SCH (07:44)
[2016-08-23] MEDS: VITAMIN E (DL,TOCOPHERYL ACET) 400 UNIT CAP PO SCH (07:44)
[2016-08-23] MEDS: ALLOPURINOL 100 MG TAB PO SCH ×2 (07:44→21:07)
[2016-08-23] MEDS: CHOLECALCIFEROL 1,000 UNIT TAB PO SCH (07:44)
[2016-08-23] MEDS: PREGABALIN 75 MG CAP PO SCH ×2 (07:45→21:08)
[2016-08-23] MEDS: FERROUS SULFATE 325 MG TAB PO SCH ×2 (07:45→21:07)
[2016-08-23] MEDS: ASCORBIC ACID 500 MG TAB PO SCH (07:45)
[2016-08-23] MEDS: CALCIUM CARB-VIT D 500MG-200UN 1 EACH TAB PO SCH (07:45)
[2016-08-23] MEDS: POTASSIUM CHLORIDE ER 20 MEQ TAB.ER PO SCH (07:45)
[2016-08-23] MEDS: tiZANidine 4 MG TAB PO SCH (07:46)
[2016-08-23 07:50] LABS: Glucose,Whole Blood 156 mg/dL (75-99)
[2016-08-23] MEDS: VANCOMYCIN 1,750 MG in SODIUM CHLORIDE 0.9% 250 ML IVPB SCH (07:59)
[2016-08-23] MEDS: LACTATED RINGERS 1,000 ML IV SCH ×2 (08:03→21:04)
--- NOTE | 2016-08-23 08:43 | P.PN ---
Subjective Principal diagnosis: Left lower extremity cellulitis. This is a continue progress on a 65-year-old white female essentially admitted for left lower 77 at his and generalized weakness. She has an underlying history of chronic lower left extremity DVT and has difficulty emulating. Unfortunately, today she states to me that she's been having auditory and visual hallucinations intermittently. Question medication side effect. I will go ahead and consult psychiatry to evaluate. Otherwise, she is agreeable to ECF placement once discharged. Objective - Vital Signs Vital signs: Vital Signs Temp 99.9 F H 08/23/16 07:00 Pulse 82 08/23/16 07:00 Resp 16 08/23/16 07:00 BP 143/70 08/23/16 07:00 Pulse Ox 93 L 08/23/16 07:00 Intake & Output 08/22/16 08/23/16 08/23/16 18:59 06:59 18:59 Intake Total 480 240 Balance 480 240 Weight 96.5 kg Intake: Oral 480 240 Other: Voiding Method Bedpan Bedpan Bedpan Incontinent Incontinent Incontinent # Voids 1 5 # Bowel Movements 0 0 - Constitutional General appearance: Present: obese - EENT Eyes: Absent: abnormal pupil - Respiratory Respiratory: bilateral: CTA - Cardiovascular Rhythm: regular Heart sounds: normal: S1, S2 - Gastrointestinal General gastrointestinal: Present: soft. Absent: tenderness - Integumentary Integumentary: Present: cellulitis - Musculoskeletal Musculoskeletal: Present: generalized weakness - Labs CBC & Chem 7: 08/22/16 08:32 08/22/16 08:32 Labs: Abnormal Lab Results - Last 24 Hours (Table) 08/22/16 08/22/16 08/22/16 Range/Units 08:32 08:32 11:59 RBC 2.66 L (3.80-5.40) m/uL Hgb 7.4 L (11.4-16.0) gm/dL Hct 24.4 L (34.0-46.0) % MCHC 30.2 L (31.0-37.0) g/dL RDW 16.9 H (11.5-15.5) % BUN 30 H (7-17) mg/dL Creatinine 1.10 H (0.52-1.04) mg/dL Glucose 291 H (74-99) mg/dL POC Glucose (mg/dL) 182 H (75-99) mg/dL Calcium 8.3 L (8.4-10.2) mg/dL Total Protein 5.9 L (6.3-8.2) g/dL Albumin 2.5 L (3.5-5.0) g/dL 08/22/16 08/22/16 08/23/16 Range/Units 17:11 20:58 07:29 RBC (3.80-5.40) m/uL Hgb (11.4-16.0) gm/dL Hct (34.0-46.0) % MCHC (31.0-37.0) g/dL RDW (11.5-15.5) % BUN (7-17) mg/dL Creatinine (0.52-1.04) mg/dL Glucose (74-99) mg/dL POC Glucose (mg/dL) 138 H 189 H 156 H (75-99) mg/dL Calcium (8.4-10.2) mg/dL Total Protein (6.3-8.2) g/dL Albumin (3.5-5.0) g/dL Microbiology - Last 24 Hours (Table) 08/20/16 18:56 Gram Stain - Final Leg - Left Wound Culture - Final Methicillin resist S. aureus Assessment and Plan (1) Lower limb ulcer Status: Acute (2) Sepsis Status: Acute (3) Type II diabetes mellitus with peripheral circulatory disorder, uncontrolled Status: Acute (4) Anemia Status: Acute (5) Anxiety Status: Acute (6) Cellulitis and abscess of leg Status: Acute (7) High risk for readmission Status: Acute (8) Chronic deep vein thrombosis (DVT) of left lower extremity Status: Chronic (9) Morbid obesity Status: Chronic (10) Unable to ambulate Status: Chronic Plan: We'll go ahead and await PICC line placement today. Psychiatry consult. Discharge planning for appropriate placement. Prognosis is guarded secondary to multiple comorbidities. With her generalized weakness I suspect ECF placement is appropriate at this time. Check CBC and CMP in a.m. Time with Patient: Greater than 30
[2016-08-23] MEDS ORDERED: LIDOCAINE 2% INJ 20 MG/ML SQ ONE (10:05)
--- NOTE | 2016-08-23 11:25 | IR ---
PICC LINE PLACEMENT: HISTORY: Infection requiring long-term antibiotic therapy PROCEDURE: Ultrasound and fluoroscopic guidance of PICC line placement. COMPLICATIONS: None ANESTHESIA: 1. 1% Lidocaine locally. FINDINGS/TECHNIQUE: The procedure was explained to the patient. The risks, complications, benefits and alternatives were discussed and any questions were answered. Informed consent was obtained. The patient was placed supine on the fluoroscopic table and prepped and draped in the usual sterile [facility] ion. Utilizing a 21 gauge needle and sonographic and fluoroscopic guidance, access in the vein was achieved and there is placement of a 0.018 guidewire. The vein is patent. A 4-F sheath was placed o fanta the guidewire. The guidewire and dilator were removed and a 4-F. PICC line was placed through th e sheath with the tip at the level of the SVC. The sheath was removed, the catheter was flushed and sutured into position. The patient was stable throughout the procedure and remained stable upon disc harge from the Department of Radiology. The vein puncture was patent under ultrasound. A hernandez scale image was obtained to document patency of the vein punctured. All elements of the maximal barrier technique were utilized. FLUOROSCOPY TIME: 0.7 minute IMPRESSION: Successful PICC line placement under ultrasound and fluoroscopic guidance.
[2016-08-23 12:14] LABS: Glucose,Whole Blood 134 mg/dL (75-99)
[2016-08-23] MEDS: MULTIVITAMINS, THERA 1 EACH TAB PO SCH (12:23)
[2016-08-23] MEDS: FUROSEMIDE 40 MG TAB PO SCH (12:23)
--- NOTE | 2016-08-23 14:56 | P.HPIM ---
History of Present Illness H&P Date: 08/20/16 Chief Complaint: Fever with left lower extremity ulceration and pain. This is a history and physical on a 65-year-old white female who is well known to my practice with an underlying history of morbid obesity, diabetes, fibromyalgia and history of left lower extremity chronic DVT with history of [place] filter in the past. She was seen twice in the emergency room secondary to left lower extremity pain but now her left lower extremity wound has supposedly been having worsening infection and healing. Because of her tachycardia and fever she was appropriately admitted for continued treatment. I do worry about her overall home environment. She unfortunately does not have significant family support at this time. Review of Systems Constitutional: Reports fever, Reports weakness Eyes: denies blurred vision, denies pain Ears, nose, mouth and throat: Denies headache, Denies sore throat Cardiovascular: Reports leg edema, Denies chest pain, Denies shortness of breath Respiratory: Denies cough Gastrointestinal: Denies abdominal pain, Denies diarrhea, Denies nausea, Denies vomiting Genitourinary: Denies dysuria, Denies hematuria Integumentary: Reports foot/leg ulcers Neurological: Denies numbness, Denies weakness Psychiatric: Denies anxiety, Denies depression Endocrine: Denies fatigue, Denies weight change Past Medical History Past Medical History: Diabetes Mellitus, Deep Vein Thrombosis (DVT), Fibromyalgia, GI Bleed, Hypertension, Skin Disorder, Sleep Apnea/CPAP/BIPAP Additional Past Medical History / Comment(s): Pt recently fell (April 2016) and had L eye contusion/L lower leg laceration-surgically repaired/DVT L lower leg and acute blood loss anemia. Other HX: IDDM type II, DVT L leg, bilateral lower leg cellulitis with L lower leg cellulitis currently being tx by Dr. Bhatia, rt heel pressure ulcer-SINCE HEALED, peripheral neuropathy bilateral hands and feet, falls, chronic UTI'S, bilateral tinnitis, hemorrhoids , migraines, obesity, pt is on cholesterol medication for eye cholesterol problem, back pain, eczema, sinus problems, ALEX no CPAP, stomach ulcers, lower GI bleed. Last Myocardial Infarction Date:: unknown History of Any Multi-Drug Resistant Organisms: MRSA, VRE Date of last positivie culture/infection: 10/21/2014- VRE; 06/13/16 MRSA(LT leg) , MDRO Source:: Urine-VRE; Left knee arthroplasty-MRSA ( MRSA per nursing documentation) Past Surgical History: Adenoidectomy, Bariatric Surgery, Cholecystectomy, Joint Replacement, Tonsillectomy, Tubal Ligation Additional Past Surgical History / Comment(s): Gastric bypass, [place]-Y in 2004 , [place] filter placement, teeth extraction, colonoscopy, EGD, hemorrhoidectomy, panniculectomy, D&C, hystoscopy x 2, LT KNEE replaced-MRSA infection-hardware removed and cemented then replaced again, L hip repair with screw and total R hip REPLACEMENT, bilateral heel spurs removed, bilateral carpal tunnel releases, D&Cs, infusaport insertion since removed. Past Anesthesia/Blood Transfusion Reactions: No Reported Reaction Additional Past Anesthesia/Blood Transfusion Reaction / Comment(s): pt has received blood in the past without reaction. Past Psychological History: Anxiety, Depression Additional Psychological History / Comment(s): Pt lives with a roomate. She is wheelchair bound. She has an aide coming 3 times a week for bathing. She manages her own medication. VNA changes L lower leg dressing 3 times a week. She does not drive any longer. [facility]. Smoking Status: Former smoker Past Alcohol Use History: Rare Additional Past Alcohol Use History / Comment(s): She has history of smoking 1.5 pack per day for 27 years and quit in 1993. She drinks alcohol rarely. 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 pt stated SHE HAS HOME CARE WITH VISITNG NURSES. uses a w/c Past Drug Use History: Marijuana Additional Drug Use History / Comment(s): when younger admits to using marijuana ,lsd,meth,cocaine denies any iv drug use. pt still smokes marijuana for pain control. - Past Family History Father Family Medical History: Myocardial Infarction ([place]) Additional Family Medical History / Comment(s): AT AGE 46-[place] Mother Family Medical History: Diabetes Mellitus Additional Family Medical History / Comment(s): AT AGE 66 FROM COMPLICATIONS FROM DM Sister(s) Family Medical History: Diabetes Mellitus Brother(s) Family Medical History: Diabetes Mellitus Daughter(s) Family Medical History: Cancer Son(s) Family Medical History: No Reported History Medications and Allergies Home Medications Medication Instructions Recorded Confirmed Type Atorvastatin [Lipitor] 40 mg PO HS 08/30/15 08/19/16 History Sennosides [Senokot] 8.6 mg PO DAILY PRN 08/30/15 08/19/16 History Biotin 5 mg PO DAILY 08/31/15 08/19/16 History rOPINIRole HCL [Requip] 0.25 mg PO HS 02/16/16 08/19/16 History Allopurinol [Zyloprim] 100 mg PO BID 05/21/16 08/19/16 History Calcium Carbonate [Tums] 500 mg PO DAILY 05/21/16 08/19/16 History Calcium Carbonate/Vitamin D3 1 tab PO DAILY 05/21/16 08/19/16 History [Calcium 600-Vit D3 400 Caplet] DULoxetine HCL [Cymbalta] 60 mg PO DAILY 05/21/16 08/19/16 History Furosemide [Lasix] 80 mg PO QAM 05/21/16 08/19/16 History Omeprazole 20 mg PO QAM 05/21/16 08/19/16 History Pregabalin [Lyrica] 150 mg PO BID 05/21/16 08/19/16 History diphenhydrAMINE [Benadryl] 25 mg PO DAILY PRN 05/21/16 08/19/16 History metFORMIN HCL 1,000 mg PO BID 05/21/16 08/19/16 History oxyCODONE-APAP 10-325MG [Percocet 1 tab PO QID PRN 05/21/16 08/19/16 History 10-325 mg] Ascorbic Acid [Vitamin C] 500 mg PO DAILY 06/29/16 08/19/16 History Bisacodyl 5 mg PO DAILY PRN 06/29/16 08/19/16 History Cholecalciferol [Vitamin D3] 2,000 unit PO DAILY 06/29/16 08/19/16 History Ferrous Sulfate [Iron (65 MG 325 mg PO BID 06/29/16 08/19/16 History Elemental)] Furosemide [Lasix] 40 mg PO DAILY@1300 06/29/16 08/19/16 History Magnesium Hydroxide [Milk of 2,400 mg PO DAILY PRN 06/29/16 08/19/16 History Magnesia] Multivit with Calcium,Iron,Min 1 tab PO DAILY 06/29/16 08/19/16 History [Women's Multivitamin] Polyethylene Glycol 3350 [Miralax] 17 gm PO DAILY 06/29/16 08/19/16 History Vitamin E (Dl,Tocopheryl Acet) 400 unit PO DAILY 06/29/16 08/19/16 History [Vitamin E] tiZANidine [Zanaflex] 4 mg PO DAILY 06/29/16 08/19/16 History Allergies Allergy/AdvReac Type Severity Reaction Status Date / Time adhesive tape Allergy Severe Rash/Hives Verified 08/19/16 03:09 cephalexin monohydrate Allergy Severe Rash/Hives Verified 08/19/16 03:09 [From Keflex] influenza virus vaccine, Allergy Severe Anaphylaxis Verified 08/19/16 03:09 specific [influenza virus vacc,specific] latex Allergy Severe Rash/Hives Verified 08/19/16 03:09 peanut Allergy Severe Anaphylaxis Verified 08/19/16 03:09 Penicillins Allergy Severe Swelling Verified 08/19/16 03:09 tetanus toxoid, adsorbed Allergy Intermediate Rash/Hives Verified 08/19/16 03:09 Physical Exam Vitals: Vital Signs Temp Pulse Pulse Pulse Resp BP BP 08/20/16 04:00 97.9 F 101 H 18 119/55 08/20/16 00:00 99.5 F 105 H 18 127/56 08/19/16 20:00 100.2 F H 113 H 18 130/62 08/19/16 19:05 103 H 20 08/19/16 15:45 98 F 103 H 20 08/19/16 15:28 98.8 F 08/19/16 15:13 98.8 F 08/19/16 15:09 102 H 20 134/89 08/19/16 14:22 99 F 100 20 137/87 Pulse Ox 08/20/16 04:00 93 L 08/20/16 00:00 95 08/19/16 20:00 90 L 08/19/16 19:05 08/19/16 15:45 08/19/16 15:28 08/19/16 15:13 08/19/16 15:09 97 08/19/16 14:22 100 Intake and Output 08/19/16 08/20/16 08/20/16 22:59 06:59 14:59 Intake Total 0 2450 Output Total 800 Balance 0 1650 Intake: IV 1350 Lactated Ringers 1,000 ml 1200 @ 100 mls/hr IV .Q10H GUALBERTO Rx#:[id number] Levofloxacin 750Mg-D5w 150 Pmx 750 mg In Dextrose/ Water 1 150ml.bag @ 100 mls/hr IVPB Q48H GUALBERTO Rx#: [id number] Oral 0 1100 Output: Urine 800 Other: Voiding Method Bedpan Bedpan Incontinent Incontinent # Voids 0 0 Weight 104 kg 104 kg - EENT Eyes: EOMI - Neck Neck: no lymphadenopathy - Respiratory Respiratory: bilateral: CTA - Cardiovascular Rhythm: regular Heart sounds: normal: S1, S2 Abnormal Heart Sounds: no S3 Gallop - Gastrointestinal General gastrointestinal: no organomegaly, soft, no tenderness - Integumentary Integumentary: rash, ulcer - Neurologic Neurologic: CNII-XII intact - Musculoskeletal Musculoskeletal: generalized weakness - Psychiatric Psychiatric: A&O x's 3, appropriate affect Results CBC & Chem 7: 08/19/16 11:55 08/19/16 11:55 Labs: Abnormal Lab Results - Last 24 Hours (Table) 08/19/16 08/19/16 08/20/16 Range/Units 16:47 20:58 06:30 POC Glucose (mg/dL) 177 H 264 H 201 H (75-99) mg/dL Assessment and Plan (1) Lower limb ulcer Status: Acute (2) Sepsis Status: Acute (3) Type II diabetes mellitus with peripheral circulatory disorder, uncontrolled Status: Acute (4) Anemia Status: Acute (5) Anxiety Status: Acute (6) Cellulitis and abscess of leg Status: Acute (7) High risk for readmission Status: Acute (8) Chronic deep vein thrombosis (DVT) of left lower extremity Status: Chronic (9) Morbid obesity Status: Chronic (10) Unable to ambulate Status: Chronic Plan: We'll go ahead and continue current regimen of IV treatment of antibiotic therapy of vancomycin. Restart most of home medications. Pain control without overmedication. Consult Dr. Bhatia. Prognosis is guarded secondary to her multiple comorbidities. Check CBC and CMP in a.m. with her history of chronic anemia. Question need for moderate transfusion if she continues to drop. I do suspect this is related to chronic disease state however. Dr. Lara's group become for the weekend. Discharge planning consultation for possible reinstitution of home health or ECF. Time with Patient: Greater than 30
[2016-08-23 17:30] LABS: Glucose,Whole Blood 168 mg/dL (75-99)
[2016-08-23] MEDS: LEVOFLOXACIN 750MG-D5W PMX 750 MG in DEXTROSE/WATER 1 150ML.BAG IVPB SCH (17:53)
--- NOTE | 2016-08-23 19:21 | P.PN ---
Subjective Principal diagnosis: Fever and leg pain 65-year-old woman known to the infectious disease service was recently hospitalized because of a significant injury to her left leg. She relates that she was at her home and her cat had thrown up and had a hairball. She was kneeling over the chair to clean it up and she regretfully fell outside of the chair causing the significant laceration to the lateral aspect of her left leg. She was hospitalized July 13 through July 16 and was discharged home on Fortaz 2 g every 12 hours for [address]NA in [address]. She was also treated at that time for colitis and dehydration. She then followed up in the wound healing Center with Dr. Perez and she was due for her third visit on Tuesday of this week but she states she was too sick and weak to make it to her appointment. She states that she started with diarrhea last Tuesday through Tuesday 3-4 times every day but is has not had any since Tuesday. Since Tuesday she complains of body ache, cold symptoms cough, nausea and vomiting 2. She states she came into the emergency center and was sent home. She presented to the emergency center initially on August 19 at 3 a.m. and underwent a left tib- fib x-ray that showed stable findings. She was afebrile. White count was 6.8. She was discharged home to follow-up with her primary care physician. She returned later in the day on August 19 and had fever of 101.8 and was tachycardic. White count was 6.7 and hemoglobin 7.8. BUN 42 and creatinine 1.3. Lactic acid 1.3. Blood culture showing no growth after 24 hours and urine is collected. She underwent a chest x-ray which was limited. She received 1 dose of Azactam and admitted to the selective care unit and started on Levaquin and vancomycin. She states she is feeling better in general since she's been here. Patient still complaining of some pain to her left leg. It is better than yesterday but is still persistent. Requiring pain medications. Fever has resolved Is still complaining of great difficulties with her ambulation. Before hospitalization she was able to transfer no longer has that strength. Objective - Vital Signs Vital signs: Vital Signs Temp 99.4 F 08/23/16 15:00 Pulse 103 H 08/23/16 15:00 Resp 16 08/23/16 15:00 BP 148/57 08/23/16 15:00 Pulse Ox 95 08/23/16 15:00 Intake & Output 08/23/16 08/23/16 08/24/16 06:59 18:59 06:59 Intake Total 240 480 Balance 240 480 Weight 96.5 kg Intake: Oral 240 480 Other: Voiding Method Bedpan Bedpan Incontinent Incontinent # Voids 5 3 # Bowel Movements 0 0 - Exam Gen: This is a 65-year-old morbidly obese female. She is resting in bed and appears to be somewhat uncomfortable due to left hip pain and lower extremity pain. No respiratory distress noted. HEENT: Head is atraumatic, normocephalic. Pupils equal, round. Sclerae is anicteric. Oral mucous membranes slightly dry. No thrush noted. NECK: Supple. No JVD. No lymphadenopathy. No thyromegaly. LUNGS: Clear to auscultation. No wheezes or rhonchi. No intercostal retractions. HEART: Regular rate and rhythm. No murmur. ABDOMEN: Soft. Bowel sounds are present. No masses. No tenderness. EXTREMITIES: Tenderness to the left hip area. No bruising noted. Left lower extremity leg wound is large and measures at 8.2 x 3.4 x 0.2. There some slough at the base. This began surrounding erythema. There is ascending erythema. However the erythema that ascended to the thigh has definitely improved. The distal he is still warm erythematous and tender. NEUROLOGICAL: Patient is awake, alert and oriented x3 - Labs CBC & Chem 7: 08/22/16 08:32 08/22/16 08:32 Labs: Abnormal Lab Results - Last 24 Hours (Table) 08/22/16 08/23/16 08/23/16 Range/Units 20:58 07:29 12:06 POC Glucose (mg/dL) 189 H 156 H 134 H (75-99) mg/dL 08/23/16 Range/Units 17:02 POC Glucose (mg/dL) 168 H (75-99) mg/dL Microbiology - Last 24 Hours (Table) 08/20/16 18:56 Gram Stain - Final Leg - Left Wound Culture - Final Methicillin resist S. aureus Laboratory Results WBC 5.3 k/uL (3.8-10.6) 08/22/16 08:32 RBC 2.66 m/uL (3.80-5.40) L 08/22/16 08:32 Hgb 7.4 gm/dL (11.4-16.0) L 08/22/16 08:32 Hct 24.4 % (34.0-46.0) L 08/22/16 08:32 MCV 91.5 fL (80.0-100.0) 08/22/16 08:32 MCH 27.7 pg (25.0-35.0) 08/22/16 08:32 MCHC 30.2 g/dL (31.0-37.0) L 08/22/16 08:32 RDW 16.9 % (11.5-15.5) H 08/22/16 08:32 Plt Count 240 k/uL (150-450) 08/22/16 08:32 Neutrophils % 70 % 08/19/16 11:55 Lymphocytes % 18 % 08/19/16 11:55 Monocytes % 6 % 08/19/16 11:55 Eosinophils % 3 % 08/19/16 11:55 Basophils % 1 % 08/19/16 11:55 Neutrophils # 4.7 k/uL (1.3-7.7) 08/19/16 11:55 Lymphocytes # 1.2 k/uL (1.0-4.8) 08/19/16 11:55 Monocytes # 0.4 k/uL (0-1.0) 08/19/16 11:55 Eosinophils # 0.2 k/uL (0-0.7) 08/19/16 11:55 Basophils # 0.0 k/uL (0-0.2) 08/19/16 11:55 Hypochromasia Moderate 08/22/16 08:32 Anisocytosis Slight 08/22/16 08:32 Sodium 140 mmol/L (137-145) 08/22/16 08:32 Potassium 3.9 mmol/L (3.5-5.1) 08/22/16 08:32 Chloride 104 mmol/L (98-107) 08/22/16 08:32 Carbon Dioxide 22 mmol/L (22-30) 08/22/16 08:32 Anion Gap 14 mmol/L 08/22/16 08:32 BUN 30 mg/dL (7-17) H 08/22/16 08:32 Creatinine 1.10 mg/dL (0.52-1.04) H 08/22/16 08:32 Est GFR (MDRD) Af Amer >60 (>60 ml/min/1.73 sqM) 08/22/16 08:32 Est GFR (MDRD) Non-Af 50 (>60 ml/min/1.73 sqM) 08/22/16 08:32 Glucose 291 mg/dL (74-99) H 08/22/16 08:32 POC Glucose (mg/dL) 168 mg/dL (75-99) H 08/23/16 17:02 POC Glu Nozzle Worker ID Urmila Arzate 08/23/16 17:[address] Glu mg/dL 174 mg/dL 08/19/16 11:55 Hemoglobin A1c 7.7 % (4.2-6.1) H 08/19/16 11:55 Plasma Lactic Acid Maximus 1.2 mmol/L (0.7-2.0) 08/19/16 11:55 Calcium 8.3 mg/dL (8.4-10.2) L 08/22/16 08:32 Total Bilirubin 0.4 mg/dL (0.2-1.3) 08/22/16 08:32 AST 24 U/L (14-36) 08/22/16 08:32 ALT 31 U/L (9-52) 08/22/16 08:32 Alkaline Phosphatase 95 U/L (38-126) 08/22/16 08:32 Total Protein 5.9 g/dL (6.3-8.2) L 08/22/16 08:32 Albumin 2.5 g/dL (3.5-5.0) L 08/22/16 08:32 Urine Color Yellow 08/20/16 08:45 Urine Appearance Cloudy (Clear) H 08/20/16 08:45 Urine pH 5.5 (5.0-8.0) 08/20/16 08:45 Ur Specific [place] 1.013 (1.001-1.035) 08/20/16 08:45 Urine Protein Negative (Negative) 08/20/16 08:45 Urine Glucose (UA) Negative (Negative) 08/20/16 08:45 Urine Ketones Negative (Negative) 08/20/16 08:45 Urine Blood Negative (Negative) 08/20/16 08:45 Urine Nitrate Negative (Negative) 08/20/16 08:45 Urine Bilirubin Negative (Negative) 08/20/16 08:45 Urine Urobilinogen <2.0 mg/dL (<2.0) 08/20/16 08:45 Ur Leukocyte Esterase Moderate (Negative) H 08/20/16 08:45 Urine WBC 20 /hpf (0-5) H 08/20/16 08:45 Ur Squamous Epith Cells 6 /hpf (0-4) H 08/20/16 08:45 Urine Bacteria Few /hpf (None) H 08/20/16 08:45 Urine Mucus Rare /hpf (None) H 08/20/16 08:45 Urine Yeast (Budding) Rare /hpf (None) H 08/20/16 08:45 Vancomycin Trough 16.5 ug/mL 08/22/16 08:32 Microbiology 08/19/16 12:42 Blood Blood Culture - Preliminary No Growth after 96 hours 08/20/16 18:56 Leg - Left Gram Stain - Final 08/20/16 18:56 Leg - Left Wound Culture - Final Methicillin resist S. aureus Assessment and Plan (1) Cellulitis and abscess of leg Narrative/Plan: 65-year-old woman who has a history of significant debility utilizes a power chair for mobility. Was at home not feeling well. She had some increasing amount of swelling and drainage to her left leg chronic ulceration. She developed increasing amount of cellulitis as well as fever and increasing pain. Consequently she was brought in the hospital. Cultures are revealing presumptive MRSA. Seems to be improving with current antibiotic therapy of vancomycin and levofloxacin. Cultures are finalized with MRSA. No other pathogens. She is hoping to go to the [facility] at her discharge. IV access was placed with the PICC line today. Plan at least 2 weeks of vancomycin hopefully an extended care Physical therapy has been by to see her awaiting further evaluations as to her difficulty with her ambulation. Status: Acute
[2016-08-23 20:07] LABS: Glucose,Whole Blood 227 mg/dL (75-99)
[2016-08-23] MEDS: ATORVASTATIN 40 MG TAB PO SCH (21:07)
[2016-08-24] MEDS: HEPARIN SODIUM,PORCINE 5,000 UNIT/ML 1 ML VIAL SQ SCH ×4 (00:57→21:35)
[2016-08-24] MEDS: HYDROmorphone 1 MG/ML 1 ML SYRINGE IVP PRN ×6 (00:58→22:59)
[2016-08-24] MEDS: LACTATED RINGERS 1,000 ML IV SCH ×3 (04:01→18:00)
[2016-08-24] MEDS: diphenhydrAMINE 25 MG CAP PO PRN (05:55)
[2016-08-24 07:40] LABS: Glucose,Whole Blood 179 mg/dL (75-99)
--- NOTE | 2016-08-24 08:22 | P.DS ---
Providers Date of admission: 08/19/16 13:54 Attending physician: iWllis Gurrola Consults: 08/20/16 08:00 Consult Physician Routine Consulting Provider: Clayton Bhatia Reason/Comments: Chronic left lower extremity ulceration/cellulitis Do you want consulting provider notified?: Yes 08/23/16 23:49 Consult Physician Routine Consulting Provider: Rene Lopez Consult Reason/Comments: hallucinations, auditory Do you want consulting provider notified?: Yes Primary care physician: Willis Gurrola - Discharge Diagnosis(es) (1) Lower limb ulcer Current Visit: Yes Status: Acute (2) Sepsis Current Visit: Yes Status: Acute (3) Type II diabetes mellitus with peripheral circulatory disorder, uncontrolled Current Visit: Yes Status: Acute (4) Anemia Current Visit: No Status: Acute (5) Anxiety Current Visit: No Status: Acute (6) Cellulitis and abscess of leg Current Visit: No Status: Acute (7) High risk for readmission Current Visit: No Status: Acute (8) Chronic deep vein thrombosis (DVT) of left lower extremity Current Visit: No Status: Chronic (9) Morbid obesity Current Visit: No Status: Chronic (10) Unable to ambulate Current Visit: No Status: Chronic Hospital Course: This is a discharge summary 65-year-old white female essentially admitted for appropriate cellulitis and abscess of the left lower extremity which she has been battling. She ended up having MRSA infection. Dr. Bhatia was consulted and she is not been placed on vancomycin after having PICC line placed today. She is had significant issue regarding mobility because of this, she will be transferred to [facility] when bed available. I think she has chosen [place]. I am also concerned about her complaint of auditory hallucinations. I have asked psychiatry to see the patient to see if there is any further treatment. She'll be cleared once antibiotics are clarified by infectious disease and psychiatry has seen the patient. Patient Condition at Discharge: Stable Plan - Discharge Summary New Discharge Prescriptions: Morphine Sulfate ER [Ms Contin] 30 mg PO Q12HR #60 tablet oxyCODONE-APAP 10-325MG [Percocet 10-325 mg] 1 each PO Q6H PRN #120 tab PRN Reason: Pain Discharge Medication List Atorvastatin [Lipitor] 40 mg PO HS 08/30/15 [History] Sennosides [Senokot] 8.6 mg PO DAILY PRN 08/30/15 [History] Biotin 5 mg PO DAILY 08/31/15 [History] rOPINIRole HCL [Requip] 0.25 mg PO HS 02/16/16 [History] Potassium Chloride [Klor-Con 20] 20 meq PO DAILY #30 tab 03/06/16 [Rx] Allopurinol [Zyloprim] 100 mg PO BID 05/21/16 [History] Calcium Carbonate [Tums] 500 mg PO DAILY 05/21/16 [History] Calcium Carbonate/Vitamin D3 [Calcium 600-Vit D3 400 Caplet] 1 tab PO DAILY [History] DULoxetine HCL [Cymbalta] 60 mg PO DAILY 05/21/16 [History] Furosemide [Lasix] 80 mg PO QAM 05/21/16 [History] Omeprazole 20 mg PO QAM 05/21/16 [History] Pregabalin [Lyrica] 150 mg PO BID 05/21/16 [History] diphenhydrAMINE [Benadryl] 25 mg PO DAILY PRN 05/21/16 [History] metFORMIN HCL 1,000 mg PO BID 05/21/16 [History] oxyCODONE-APAP 10-325MG [Percocet 10-325 mg] 1 tab PO QID PRN 05/21/16 [History] Ascorbic Acid [Vitamin C] 500 mg PO DAILY 06/29/16 [History] Bisacodyl 5 mg PO DAILY PRN 06/29/16 [History] Cholecalciferol [Vitamin D3] 2,000 unit PO DAILY 06/29/16 [History] Ferrous Sulfate [Iron (65 MG Elemental)] 325 mg PO BID 06/29/16 [History] Furosemide [Lasix] 40 mg PO DAILY@1300 06/29/16 [History] Magnesium Hydroxide [Milk of Magnesia] 2,400 mg PO DAILY PRN 06/29/16 [History] Multivit with Calcium,Iron,Min [Women's Multivitamin] 1 tab PO DAILY 06/29/16 [ History] Polyethylene Glycol 3350 [Miralax] 17 gm PO DAILY 06/29/16 [History] Vitamin E (Dl,Tocopheryl Acet) [Vitamin E] 400 unit PO DAILY 06/29/16 [History] tiZANidine [Zanaflex] 4 mg PO DAILY 06/29/16 [History] Dextroamphetamine/Amphetamine [Adderall Xr] 25 mg PO QAM #1 cap 08/19/16 [Rx] HYDROcodone/APAP 10-325MG [[place] 10-325] 1 tab PO Q4HR PRN #30 tab 08/19/16 [Rx] INSULIN LISPRO (humaLOG) [humaLOG (formulary)] 0 unit SQ ACHS vial 08/24/16 [Rx ] Morphine Sulfate ER [Ms Contin] 30 mg PO Q12HR #60 tablet 08/24/16 [Rx] Vancomycin 1,750 mg IVPB Q24HR #0 vial 08/24/16 [Rx] oxyCODONE-APAP 10-325MG [Percocet 10-325 mg] 1 each PO Q6H PRN #120 tab [Rx] Follow up Appointment(s)/Referral(s): Willis Gurrola MD [Primary Care Provider] - 2 Weeks Patient Instructions/Handouts: Type 2 Diabetes in Adults (DC) Discharge Disposition: TRANSFER TO SNF/ECF
[2016-08-24] MEDS: INSULIN LISPRO (humaLOG) 300 UNIT/3 ML VIAL SQ SCH ×4 (08:50→21:34)
[2016-08-24] MEDS: MORPHINE SULFATE ER 30 MG TABLET PO SCH ×2 (08:52→21:40)
[2016-08-24] MEDS: POLYETHYLENE GLYCOL 3350 17 GM POWD.PACK PO SCH (08:52)
[2016-08-24] MEDS: metFORMIN 500 MG TAB PO SCH ×2 (08:52→17:25)
[2016-08-24] MEDS: DULoxetine HCL 60 MG CAPSULE.DR PO SCH (08:52)
[2016-08-24] MEDS: CALCIUM CARB-VIT D 500MG-200UN 1 EACH TAB PO SCH (08:52)
[2016-08-24] MEDS: PANTOPRAZOLE 40 MG TABLET PO SCH (08:52)
[2016-08-24] MEDS: ALLOPURINOL 100 MG TAB PO SCH ×2 (08:52→21:34)
[2016-08-24] MEDS: ASCORBIC ACID 500 MG TAB PO SCH (08:52)
[2016-08-24] MEDS: tiZANidine 4 MG TAB PO SCH (08:52)
[2016-08-24] MEDS: FERROUS SULFATE 325 MG TAB PO SCH ×2 (08:52→21:34)
[2016-08-24] MEDS: VITAMIN E (DL,TOCOPHERYL ACET) 400 UNIT CAP PO SCH (08:53)
[2016-08-24] MEDS: FUROSEMIDE 80 MG TAB PO SCH (08:53)
[2016-08-24] MEDS: POTASSIUM CHLORIDE ER 20 MEQ TAB.ER PO SCH (08:53)
[2016-08-24] MEDS: PREGABALIN 75 MG CAP PO SCH ×2 (08:54→21:35)
[2016-08-24] MEDS: CHOLECALCIFEROL 1,000 UNIT TAB PO SCH (08:54)
[2016-08-24] MEDS: VANCOMYCIN 1,750 MG in SODIUM CHLORIDE 0.9% 250 ML IVPB SCH (08:54)
[2016-08-24] MEDS: oxyCODONE-APAP 10-325MG 1 EACH TAB PO PRN (09:52)
[2016-08-24 10:28] LABS: Anisocytosis Slight; CHCM 31.2; HCT 22.9 % (34.0-46.0); HDW 3.41; Hypochromasia Moderate; MCH 27.5 pg (25.0-35.0); MCHC 30.5 g/dL (31.0-37.0); MCV 90.1 fL (80.0-100.0); Poikilocytosis Slight; RBC 2.55 m/uL (3.80-5.40); RDW 16.6 % (11.5-15.5); WBC 5.8 k/uL (3.8-10.6)
[2016-08-24 10:44] LABS: Calcium 8.3 mg/dL (8.4-10.2); Potassium 4.1 mmol/L (3.5-5.1); Total Bilirubin 0.4 mg/dL (0.2-1.3)
[2016-08-24 11:12] VITALS: BMI 36.3
[2016-08-24 12:41] LABS: Glucose,Whole Blood 150 mg/dL (75-99)
[2016-08-24] MEDS: MULTIVITAMINS, THERA 1 EACH TAB PO SCH (12:56)
[2016-08-24] MEDS: FUROSEMIDE 40 MG TAB PO SCH (12:57)
[2016-08-24] MEDS ORDERED: DULoxetine HCL 30 MG CAPSULE.DR PO STA (14:01)
[2016-08-24] MEDS ORDERED: OLANZapine 2.5 MG TAB PO STA (14:03)
[2016-08-24 17:26] LABS: Glucose,Whole Blood 128 mg/dL (75-99)
[2016-08-24 21:14] LABS: Glucose,Whole Blood 133 mg/dL (75-99)
[2016-08-24] MEDS: OLANZapine 2.5 MG TAB PO SCH (21:34)
[2016-08-24] MEDS: ATORVASTATIN 40 MG TAB PO SCH (21:34)
--- NOTE | 2016-08-24 21:53 | P.PN ---
Subjective Principal diagnosis: Fever and leg pain 65-year-old woman known to the infectious disease service was recently hospitalized because of a significant injury to her left leg. She relates that she was at her home and her cat had thrown up and had a hairball. She was kneeling over the chair to clean it up and she regretfully fell outside of the chair causing the significant laceration to the lateral aspect of her left leg. She was hospitalized July 13 through July 16 and was discharged home on Fortaz 2 g every 12 hours for [address] with [address]NA in [address]. She was also treated at that time for colitis and dehydration. She then followed up in the wound healing Center with Dr. Perez and she was due for her third visit on Tuesday of this week but she states she was too sick and weak to make it to her appointment. She states that she started with diarrhea last Tuesday through Tuesday 3-4 times every day but is has not had any since Tuesday. Since Tuesday she complains of body ache, cold symptoms cough, nausea and vomiting 2. She states she came into the emergency center and was sent home. She presented to the emergency center initially on August 19 at 3 a.m. and underwent a left tib- fib x-ray that showed stable findings. She was afebrile. White count was 6.8. She was discharged home to follow-up with her primary care physician. She returned later in the day on August 19 and had fever of 101.8 and was tachycardic. White count was 6.7 and hemoglobin 7.8. BUN 42 and creatinine 1.3. Lactic acid 1.3. Blood culture showing no growth after 24 hours and urine is collected. She underwent a chest x-ray which was limited. She received 1 dose of Azactam and admitted to the selective care unit and started on Levaquin and vancomycin. She states she is feeling better in general since she's been here. Patient still complaining of some pain to her left leg. It is better than yesterday but is still persistent. Requiring pain medications. Fever has resolved Is still complaining of great difficulties with her ambulation. Before hospitalization she was able to transfer no longer has that strength. Objective - Vital Signs Vital signs: Vital Signs Temp 98.2 F 08/24/16 18:19 Pulse 83 08/24/16 18:19 Resp 14 08/24/16 18:19 BP 104/46 08/24/16 18:19 Pulse Ox 94 L 08/24/16 15:00 Intake & Output 08/24/16 08/24/16 08/25/16 06:59 18:59 06:59 Intake Total 1340 310 Balance 1340 310 Weight 96 kg 96 kg Intake: IV 800 Lactated Ringers 1,000 ml 800 @ 100 mls/hr IV .Q10H GUALBERTO Rx#:[id number] Oral 540 Blood Product 310 Rc As-1 Unit 310 [id number] Other: Voiding Method Bedpan Incontinent # Voids 1 2 # Bowel Movements 0 - Exam Gen: This is a 65-year-old morbidly obese female. She is resting in bed and appears to be somewhat uncomfortable due to left hip pain and lower extremity pain. No respiratory distress noted. HEENT: Head is atraumatic, normocephalic. Pupils equal, round. Sclerae is anicteric. Oral mucous membranes slightly dry. No thrush noted. NECK: Supple. No JVD. No lymphadenopathy. No thyromegaly. LUNGS: Clear to auscultation. No wheezes or rhonchi. No intercostal retractions. HEART: Regular rate and rhythm. No murmur. ABDOMEN: Soft. Bowel sounds are present. No masses. No tenderness. EXTREMITIES: Tenderness to the left hip area. No bruising noted. Left lower extremity leg wound is large and measures at 8.2 x 3.4 x 0.2. There some slough at the base. This began surrounding erythema. There is ascending erythema. However the erythema that ascended to the thigh has definitely improved. The distal he is still warm erythematous and tender. NEUROLOGICAL: Patient is awake, alert and oriented x3 - Labs CBC & Chem 7: 08/24/16 09:33 08/24/16 09:33 Labs: Abnormal Lab Results - Last 24 Hours (Table) 08/24/16 08/24/16 08/24/16 Range/Units 07:31 09:33 09:33 RBC 2.55 L (3.80-5.40) m/uL Hgb 7.0 L* (11.4-16.0) gm/dL Hct 22.9 L (34.0-46.0) % MCHC 30.5 L (31.0-37.0) g/dL RDW 16.6 H (11.5-15.5) % Chloride 96 L (98-107) mmol/L BUN 35 H (7-17) mg/dL Creatinine 1.15 H (0.52-1.04) mg/dL Glucose 261 H (74-99) mg/dL POC Glucose (mg/dL) 179 H (75-99) mg/dL Calcium 8.3 L (8.4-10.2) mg/dL Total Protein 6.0 L (6.3-8.2) g/dL Albumin 2.5 L (3.5-5.0) g/dL Crossmatch 08/24/16 08/24/16 08/24/16 Range/Units 11:33 12:40 17:20 RBC (3.80-5.40) m/uL Hgb (11.4-16.0) gm/dL Hct (34.0-46.0) % MCHC (31.0-37.0) g/dL RDW (11.5-15.5) % Chloride (98-107) mmol/L BUN (7-17) mg/dL Creatinine (0.52-1.04) mg/dL Glucose (74-99) mg/dL POC Glucose (mg/dL) 150 H 128 H (75-99) mg/dL Calcium (8.4-10.2) mg/dL Total Protein (6.3-8.2) g/dL Albumin (3.5-5.0) g/dL Crossmatch See Detail 08/24/16 Range/Units 21:10 RBC (3.80-5.40) m/uL Hgb (11.4-16.0) gm/dL Hct (34.0-46.0) % MCHC (31.0-37.0) g/dL RDW (11.5-15.5) % Chloride (98-107) mmol/L BUN (7-17) mg/dL Creatinine (0.52-1.04) mg/dL Glucose (74-99) mg/dL POC Glucose (mg/dL) 133 H (75-99) mg/dL Calcium (8.4-10.2) mg/dL Total Protein (6.3-8.2) g/dL Albumin (3.5-5.0) g/dL Crossmatch Laboratory Results WBC 5.8 k/uL (3.8-10.6) 08/24/16 09:33 RBC 2.55 m/uL (3.80-5.40) L 08/24/16 09:33 Hgb 7.0 gm/dL (11.4-16.0) L* 08/24/16 09:33 Hct 22.9 % (34.0-46.0) L 08/24/16 09:33 MCV 90.1 fL (80.0-100.0) 08/24/16 09:33 MCH 27.5 pg (25.0-35.0) 08/24/16 09:33 MCHC 30.5 g/dL (31.0-37.0) L 08/24/16 09:33 RDW 16.6 % (11.5-15.5) H 08/24/16 09:33 Plt Count 320 k/uL (150-450) 08/24/16 09:33 Neutrophils % 70 % 08/19/16 11:55 Lymphocytes % 18 % 08/19/16 11:55 Monocytes % 6 % 08/19/16 11:55 Eosinophils % 3 % 08/19/16 11:55 Basophils % 1 % 08/19/16 11:55 Neutrophils # 4.7 k/uL (1.3-7.7) 08/19/16 11:55 Lymphocytes # 1.2 k/uL (1.0-4.8) 08/19/16 11:55 Monocytes # 0.4 k/uL (0-1.0) 08/19/16 11:55 Eosinophils # 0.2 k/uL (0-0.7) 08/19/16 11:55 Basophils # 0.0 k/uL (0-0.2) 08/19/16 11:55 Hypochromasia Moderate 08/24/16 09:33 Poikilocytosis Slight 08/24/16 09:33 Anisocytosis Slight 08/24/16 09:33 Sodium 138 mmol/L (137-145) 08/24/16 09:33 Potassium 4.1 mmol/L (3.5-5.1) 08/24/16 09:33 Chloride 96 mmol/L (98-107) L 08/24/16 09:33 Carbon Dioxide 30 mmol/L (22-30) 08/24/16 09:33 Anion Gap 12 mmol/L 08/24/16 09:33 BUN 35 mg/dL (7-17) H 08/24/16 09:33 Creatinine 1.15 mg/dL (0.52-1.04) H 08/24/16 09:33 Est GFR (MDRD) Af Amer 57 (>60 ml/min/1.73 sqM) 08/24/16 09:33 Est GFR (MDRD) Non-Af 47 (>60 ml/min/1.73 sqM) 08/24/16 09:33 Glucose 261 mg/dL (74-99) H 08/24/16 09:33 POC Glucose (mg/dL) 133 mg/dL (75-99) H 08/24/16 21:10 POC Glu [employer] JOHN Liz Capellan 08/24/16 21:[address] Glu mg/dL 174 mg/dL 08/19/16 11:55 Hemoglobin A1c 7.7 % (4.2-6.1) H 08/19/16 11:55 Plasma Lactic Acid Maximus 1.2 mmol/L (0.7-2.0) 08/19/16 11:55 Calcium 8.3 mg/dL (8.4-10.2) L 08/24/16 09:33 Total Bilirubin 0.4 mg/dL (0.2-1.3) 08/24/16 09:33 AST 19 U/L (14-36) 08/24/16 09:33 ALT 28 U/L (9-52) 08/24/16 09:33 Alkaline Phosphatase 97 U/L (38-126) 08/24/16 09:33 Total Protein 6.0 g/dL (6.3-8.2) L 08/24/16 09:33 Albumin 2.5 g/dL (3.5-5.0) L 08/24/16 09:33 Urine Color Yellow 08/20/16 08:45 Urine Appearance Cloudy (Clear) H 08/20/16 08:45 Urine pH 5.5 (5.0-8.0) 08/20/16 08:45 Ur Specific [place] 1.013 (1.001-1.035) 08/20/16 08:45 Urine Protein Negative (Negative) 08/20/16 08:45 Urine Glucose (UA) Negative (Negative) 08/20/16 08:45 Urine Ketones Negative (Negative) 08/20/16 08:45 Urine Blood Negative (Negative) 08/20/16 08:45 Urine Nitrate Negative (Negative) 08/20/16 08:45 Urine Bilirubin Negative (Negative) 08/20/16 08:45 Urine Urobilinogen <2.0 mg/dL (<2.0) 08/20/16 08:45 Ur Leukocyte Esterase Moderate (Negative) H 08/20/16 08:45 Urine WBC 20 /hpf (0-5) H 08/20/16 08:45 Ur Squamous Epith Cells 6 /hpf (0-4) H 08/20/16 08:45 Urine Bacteria Few /hpf (None) H 08/20/16 08:45 Urine Mucus Rare /hpf (None) H 08/20/16 08:45 Urine Yeast (Budding) Rare /hpf (None) H 08/20/16 08:45 Vancomycin Trough 16.5 ug/mL 08/22/16 08:32 Blood Type A Positive 08/24/16 11:33 Blood Type Recheck No 08/24/16 11:33 Antibody Screen NEGATIVE 08/24/16 11:33 Crossmatch See Detail 08/24/16 11:33 Spec Expiration Date 08/27/2016 - 2333 08/24/16 11:33 Microbiology 08/19/16 12:42 Blood Blood Culture - Preliminary No Growth after 120 hours 08/20/16 18:56 Leg - Left Gram Stain - Final 08/20/16 18:56 Leg - Left Wound Culture - Final Methicillin resist S. aureus Assessment and Plan (1) Cellulitis and abscess of leg Narrative/Plan: 65-year-old woman who has a history of significant debility utilizes a power chair for mobility. Was at home not feeling well. She had some increasing amount of swelling and drainage to her left leg chronic ulceration. She developed increasing amount of cellulitis as well as fever and increasing pain. Consequently she was brought in the hospital. Cultures are revealing presumptive MRSA. Seems to be improving with current antibiotic therapy of vancomycin and levofloxacin. Cultures are finalized with MRSA. No other pathogens. She is hoping to go to the [facility] at her discharge. IV access was placed with the PICC line today. Plan at least 2 weeks of vancomycin hopefully an extended care Physical therapy has been by to see her she's having difficulty with ambulation. We'll go to extended care for rehab and further evaluations of her ambulation likely tomorrow. Status: Acute
[2016-08-25 07:44] LABS: Glucose,Whole Blood 149 mg/dL (75-99)
[2016-08-25] MEDS: POLYETHYLENE GLYCOL 3350 17 GM POWD.PACK PO SCH (07:55)
[2016-08-25] MEDS: CALCIUM CARB-VIT D 500MG-200UN 1 EACH TAB PO SCH (07:57)
[2016-08-25] MEDS: PANTOPRAZOLE 40 MG TABLET PO SCH (07:57)
[2016-08-25] MEDS: OLANZapine 2.5 MG TAB PO SCH (07:57)
[2016-08-25] MEDS: FUROSEMIDE 80 MG TAB PO SCH (07:57)
[2016-08-25] MEDS: HEPARIN SODIUM,PORCINE 5,000 UNIT/ML 1 ML VIAL SQ SCH (07:58)
[2016-08-25] MEDS: metFORMIN 500 MG TAB PO SCH (07:58)
[2016-08-25] MEDS: FERROUS SULFATE 325 MG TAB PO SCH (07:58)
[2016-08-25] MEDS: POTASSIUM CHLORIDE ER 20 MEQ TAB.ER PO SCH (07:58)
[2016-08-25] MEDS: PREGABALIN 75 MG CAP PO SCH (07:58)
[2016-08-25] MEDS: ALLOPURINOL 100 MG TAB PO SCH (07:58)
[2016-08-25] MEDS: VITAMIN E (DL,TOCOPHERYL ACET) 400 UNIT CAP PO SCH (07:58)
[2016-08-25] MEDS: ASCORBIC ACID 500 MG TAB PO SCH (07:58)
[2016-08-25] MEDS: tiZANidine 4 MG TAB PO SCH (07:59)
[2016-08-25] MEDS: CHOLECALCIFEROL 1,000 UNIT TAB PO SCH (07:59)
[2016-08-25] MEDS: MULTIVITAMINS, THERA 1 EACH TAB PO SCH (07:59)
[2016-08-25] MEDS: INSULIN LISPRO (humaLOG) 300 UNIT/3 ML VIAL SQ SCH ×2 (07:59→13:14)
[2016-08-25] MEDS: VANCOMYCIN 1,750 MG in SODIUM CHLORIDE 0.9% 250 ML IVPB SCH (08:00)
[2016-08-25 08:10] VITALS: BP 126/61; PULSE 82; RESP 20; TEMP 98.7
[2016-08-25] MEDS: oxyCODONE-APAP 10-325MG 1 EACH TAB PO PRN (08:11)
[2016-08-25 09:00] LABS: Anisocytosis Slight; CH 27.8; CHCM 31.1; HCT 27.8 % (34.0-46.0); HDW 3.59; Hypochromasia Moderate; MCHC 31.1 g/dL (31.0-37.0); MCV 89.9 fL (80.0-100.0); Poikilocytosis Slight; RBC 3.09 m/uL (3.80-5.40); RDW 16.6 % (11.5-15.5); WBC 7.3 k/uL (3.8-10.6)
[2016-08-25] MEDS ORDERED: DULoxetine HCL 30 MG CAPSULE.DR PO SCH (09:00)
[2016-08-25] MEDS ORDERED: DULoxetine HCL 60 MG CAPSULE.DR PO SCH (09:00)
[2016-08-25 09:03] LABS: HGB 8.7 gm/dL (11.4-16.0)
[2016-08-25] MEDS: LACTATED RINGERS 1,000 ML IV SCH (09:45)
[2016-08-25] MEDS: HYDROmorphone 1 MG/ML 1 ML SYRINGE IVP PRN (09:46)
--- NOTE | 2016-08-25 10:52 | CONS ---
DATE OF CONSULTATION: 08/25/2016 PURPOSE FOR CONSULTATION: Evaluate for mood disorder and altered mental status. INTERVAL HISTORY: Patient has been doing fair. She will be discharged today. She slept fairly well last night. She has not had any significant concerns. She does have some pain issues. She reports no problems with the increase in Cymbalta. She had been on 60 mg. We went up to 90 mg, She reports no problems with start of Zyprexa. She is on 2.5 mg twice a day. This morning when I saw her, she was just waking up, she had fair eye contact. Psychomotor activity was slowed. Speech was monotone. She answered a few questions. Her affect was blunted. Her mood quiet. ASSESSMENT: I will continue the current diagnosis and treatment plan. I recommend the patient continue on Cymbalta 90 mg a day and Zyprexa. Zyprexa is indicated to help augment her antidepressant, reduce anxiety symptoms and lessen psychotic symptoms which the patient has reported, not only since her infection, but in the past as well. After one week, the Zyprexa could be switched to 5 mg at bedtime. If she does not show improvement in her mood in 2 to 3 weeks, it would be reasonable to look at increasing her Cymbalta from 90 mg a day up to 120 mg a day. If she continues to have psychotic symptoms, there could be consideration for titrating up on her Zyprexa to a total of 10 mg a day. I did review side effects and warnings with her medications. We discussed metabolic concerns as it relates to Zyprexa. This will need to be monitored.
--- NOTE | 2016-08-25 11:00 | CONS ---
DATE OF CONSULTATION: 08/24/2016 PURPOSE FOR CONSULTATION: Evaluate for depression and altered mental status. HISTORY: The patient is a 65-year-old female. She was admitted to the medical floor for fever and lower extremity ulceration and pain. She has a complicated medical history with morbid obesity, diabetes, fibromyalgia, left lower extremity chronic DVT with a history of Lizzy filter in the past. She has had infection in her left lower limb and has been diagnosed with acute sepsis. She has a diagnosis of anxiety. I met with the patient, her daughter and a person that lives in the home with her. The patient has had ongoing problems with depression for a number of years. She only seems to get enjoyment from a very few limited activities. Other than that, she tends to be withdrawn. She has poor energy, motivation and interest. She does not share feelings much, so it is difficult for family or others to get a sense of how much she may be struggling with depression. There is some suggestion that there may be some past issues of trauma with some posttraumatic symptoms. When she was admitted for this hospitalization, she was noted to have some auditory and visual hallucinations. Details are vague. When I asked the patient about this, she said that in fact she has had these kind of problems for a long period of time. On occasion she will feel that she hears some voices. She may look at someone like her daughter and will suddenly be seeing her daughter in different clothes and in a completely different setting. Then very quickly her vision will come back to normal. She gives some vague suggestions that she may have some flashback experiences that may tie in with some of these visions that she has. She does not really identify specifics as to what may have set off depression or what contributes to persistence of depression. She has had some losses in the past. She does not appear to have a lot of family support. She has a positive relationship with the person that lives in the home with her. He seems to be a good support for her. Due to the daughter's schedule, she is not too available to see the patient and provide support at home. Patient does acknowledge that at times she gets overwhelmed managing some of her general health issues. She reports sleeping poorly. She says at best she will get 3 hours of sleep at night. She is often awake at different hours through the night. She currently is on Cymbalta 60 mg a day. Patient reports that she rarely drinks alcohol, though she does smoke marijuana on an infrequent medication, which is less than once a month. She said she will smoke marijuana when she is having more pain problems in her leg. MENTAL STATUS: Patient was in her room lying down. She gave fair eye contact. Psychomotor activity was slow. Speech was monotone. She answered questions with direct responses. Her thoughts were clear. She did not say a lot. She was not too spontaneous or interactive. Her affect was flat. Her mood down. She seemed somewhat distressed. ASSESSMENT: I would diagnose this patient with major depression. She does appear to have psychotic symptoms of her depression. She is currently on Cymbalta. I will increase her dose from 60 mg a day up to 90 mg a day. I will start Zyprexa 2.5 mg twice a day. The aim of Zyprexa is to help augment her antidepressant, to help reduce anxiety and possible posttraumatic flashback symptoms and to help alleviate some psychotic symptoms that she has. I discussed the indications, risks and benefits of her medications. I will continue to follow.
[2016-08-25 12:14] LABS: Glucose,Whole Blood 206 mg/dL (75-99)
[2016-08-25] MEDS: MORPHINE SULFATE ER 30 MG TABLET PO SCH (13:14)
[2016-08-25] MEDS: FUROSEMIDE 40 MG TAB PO SCH (13:15)
[2016-08-25] MEDS ORDERED: LEVOFLOXACIN 750 MG TAB PO SCH (16:00)
[2016-08-26] MEDS ORDERED: VANCOMYCIN TROUGH DUE 1 EACH MISC MISCELLANE ONE (08:00)
== END 2016-08-25 15:23 | DRG 872 ==
LOC: EC 10:39 → 6SEL 13:54 → 4MS4W 08-21 17:34
PROVIDERS: ADMIT Family Medicine; ATTEND Family Medicine
PROC: 02HV33Z Insertion of Infusion Device into Superior Vena Cava, Percutaneous Approach (ICD-10-PCS; principal; 2016-08-23 09:45)
PROC: 30233N1 Transfusion of Nonautologous Red Blood Cells into Peripheral Vein, Percutaneous Approach (ICD-10-PCS; 2016-08-24)
DX: A41.9 Sepsis, unspecified organism (principal); E11.22 Type 2 diabetes mellitus with diabetic chronic kidney disease; E11.42 Type 2 diabetes mellitus with diabetic polyneuropathy; F32.3 Major depressive disorder, single episode, severe with psychotic features; L03.116 Cellulitis of left lower limb; I82.502 Chronic embolism and thrombosis of unspecified deep veins of left lower extremity; L97.929 Non-pressure chronic ulcer of unspecified part of left lower leg with unspecified severity; E11.51 Type 2 diabetes mellitus with diabetic peripheral angiopathy without gangrene; D63.8 Anemia in other chronic diseases classified elsewhere; B95.62 Methicillin resistant Staphylococcus aureus infection as the cause of diseases classified elsewhere; E11.65 Type 2 diabetes mellitus with hyperglycemia; E66.01 Morbid (severe) obesity due to excess calories; F12.90 Cannabis use, unspecified, uncomplicated; F41.0 Panic disorder [episodic paroxysmal anxiety]; G47.33 Obstructive sleep apnea (adult) (pediatric); I12.9 Hypertensive chronic kidney disease with stage 1 through stage 4 chronic kidney disease, or unspecified chronic kidney disease; M79.7 Fibromyalgia; N18.3 Chronic kidney disease, stage 3 (moderate); G43.909 Migraine, unspecified, not intractable, without status migrainosus; K64.9 Unspecified hemorrhoids; R26.9 Unspecified abnormalities of gait and mobility; L30.9 Dermatitis, unspecified; F41.9 Anxiety disorder, unspecified; R32 Unspecified urinary incontinence; F32.9 Major depressive disorder, single episode, unspecified; Z68.34 Body mass index [BMI] 34.0-34.9, adult; Z79.84 Long term (current) use of oral hypoglycemic drugs; Z79.899 Other long term (current) drug therapy; Z86.14 Personal history of Methicillin resistant Staphylococcus aureus infection; Z96.641 Presence of right artificial hip joint; Z98.84 Bariatric surgery status; Z99.3 Dependence on wheelchair; Z88.1 Allergy status to other antibiotic agents; Z88.0 Allergy status to penicillin; Z88.7 Allergy status to serum and vaccine; Z82.49 Family history of ischemic heart disease and other diseases of the circulatory system
CPT/HCPCS: 36415; 36569; 71020; 76937; 77001; 80048; 80053; 80202; 81001; 82550; 82553; 83036; 83605; 83735; 84100; 85025; 85027; 86850; 86900; 86901; 86902; 86920; 87040; 87070; 87077; 87186; 87205; 93005; 94760; 96361; 96374; 96375; 96376; 99284; 99285

== ENCOUNTER 2016-11-28 16:41 | Inpatient (IN) | payer MEDICARE, OTHER ==
--- NOTE | 2016-11-28 16:44 | ED ---
General Adult HPI - General Stated complaint: Weakness Time Seen by Provider: 11/28/16 16:43 Source: RN notes reviewed, old records reviewed - History of Present Illness Initial comments: This is a 66-year-old female year for multiple complaints. Generalized weakness , inability to ambulate, inability to support herself. Decrease activities of daily living, severe medical history including multiple medical morbidities with the same issues. Patient states she does not feel well, and decreased appetite as of late, decreased urinary output. - Related Data Home Medications Medication Instructions Recorded Confirmed Atorvastatin [Lipitor] 40 mg PO HS 08/30/15 11/24/16 Sennosides [Senokot] 8.6 mg PO DAILY PRN 08/30/15 11/24/16 Biotin 5 mg PO DAILY 08/31/15 11/24/16 Allopurinol [Zyloprim] 100 mg PO BID 05/21/16 11/24/16 Calcium Carbonate [Tums] 500 mg PO DAILY 05/21/16 11/24/16 Calcium Carbonate/Vitamin D3 1 tab PO DAILY 05/21/16 11/24/16 [Calcium 600-Vit D3 400 Caplet] Furosemide [Lasix] 80 mg PO QAM 05/21/16 11/24/16 Omeprazole 20 mg PO QAM 05/21/16 11/24/16 Pregabalin [Lyrica] 150 mg PO BID 05/21/16 11/24/16 metFORMIN HCL 1,000 mg PO BID 05/21/16 11/24/16 Ascorbic Acid [Vitamin C] 500 mg PO DAILY 06/29/16 11/24/16 Bisacodyl 5 mg PO DAILY PRN 06/29/16 11/24/16 Cholecalciferol [Vitamin D3] 2,000 unit PO DAILY 06/29/16 11/24/16 Ferrous Sulfate [Iron (65 MG 325 mg PO BID 06/29/16 11/24/16 Elemental)] Magnesium Hydroxide [Milk of 2,400 mg PO DAILY PRN 06/29/16 11/24/16 Magnesia] Multivit with Calcium,Iron,Min 1 tab PO DAILY 06/29/16 11/24/16 [Women's Multivitamin] Polyethylene Glycol 3350 [Miralax] 17 gm PO DAILY 06/29/16 11/24/16 Vitamin E (Dl,Tocopheryl Acet) 400 unit PO DAILY 06/29/16 11/24/16 [Vitamin E] tiZANidine [Zanaflex] 4 mg PO DAILY 06/29/16 11/24/16 Acetaminophen [Tylenol] 325 mg PO Q4H PRN 10/27/16 11/24/16 Ranitidine HCl 150 mg PO BID 10/27/16 11/24/16 Cyanocobalamin [Vitamin B-12 1,000 mcg IM DIRECTED 11/03/16 11/24/16 Injection] Nitrofurantoin Monohyd/M-Cryst 100 mg PO Q12HR 11/10/16 11/24/16 [Macrobid] Previous Rx's Medication Instructions Recorded Potassium Chloride [Klor-Con 20] 20 meq PO DAILY #30 tab 03/06/16 INSULIN LISPRO (humaLOG) [humaLOG 0 unit SQ ACHS vial 08/24/16 (formulary)] Morphine Sulfate ER [Ms Contin] 30 mg PO Q12HR #60 tablet 08/24/16 oxyCODONE-APAP 10-325MG [Percocet 1 each PO Q6H PRN #120 tab 08/24/16 10-325 mg] DULoxetine HCL [Cymbalta] 90 mg PO DAILY capsule. 08/25/16 OLANZapine [ZyPREXA] 2.5 mg PO BID tab 08/25/16 Allergies Allergy/AdvReac Type Severity Reaction Status Date / Time adhesive tape Allergy Severe Rash/Hives Verified 11/28/16 16:50 cephalexin monohydrate Allergy Severe Rash/Hives Verified 11/28/16 16:50 [From Keflex] influenza virus vaccine, Allergy Severe Anaphylaxis Verified 11/28/16 16:50 specific [influenza virus vacc,specific] latex Allergy Severe Rash/Hives Verified 11/28/16 16:50 peanut Allergy Severe Anaphylaxis Verified 11/28/16 16:50 Penicillins Allergy Severe Swelling Verified 11/28/16 16:50 tetanus toxoid, adsorbed Allergy Intermediate Rash/Hives Verified 11/28/16 16:50 Review of Systems ROS Statement: Those systems with pertinent positive or pertinent negative responses have been documented in the HPI. ROS Other: All systems not noted in ROS Statement are negative. Past Medical History Past Medical History: Diabetes Mellitus, Deep Vein Thrombosis (DVT), Fibromyalgia, GI Bleed, Hypertension, Skin Disorder, Sleep Apnea/CPAP/BIPAP Additional Past Medical History / Comment(s): Pt recently fell (April 2016) and had L eye contusion/L lower leg laceration-surgically repaired/DVT L lower leg and acute blood loss anemia. Other HX: IDDM type II, DVT L leg, bilateral lower leg cellulitis with L lower leg cellulitis currently being tx by Dr. Bhatia, rt heel pressure ulcer-SINCE HEALED, peripheral neuropathy bilateral hands and feet, falls, chronic UTI'S, bilateral tinnitis, hemorrhoids , migraines, obesity, pt is on cholesterol medication for eye cholesterol problem, back pain, eczema, sinus problems, ALEX no CPAP, stomach ulcers, lower GI bleed. 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 Past Anesthesia/Blood Transfusion Reactions: No Reported Reaction Additional Past Anesthesia/Blood Transfusion Reaction / Comment(s): pt has received blood in the past without reaction. Past Psychological History: Anxiety, Depression Additional Psychological History / Comment(s): Pt lives with a roomate. She is wheelchair bound. She has an aide coming 3 times a week for bathing. She manages her own medication. VNA changes L lower leg dressing 3 times a week. She does not drive any longer. She gets to [place] [facility] by bus. Smoking Status: Former smoker Past Alcohol Use History: Rare Additional Past Alcohol Use History / Comment(s): She has history of smoking 1.5 pack per day for 27 years and quit in 1993. She drinks alcohol rarely. 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 pt stated SHE HAS HOME CARE WITH VISITNG NURSES. uses a w/c Past Drug Use History: Marijuana, Marijuana Additional Drug Use History / Comment(s): when younger admits to using marijuana ,lsd,meth,cocaine denies any iv drug use. pt still smokes marijuana for pain control. - Past Family History Father Family Medical History: Myocardial Infarction ([place]) Additional Family Medical History / Comment(s): AT AGE 46-[place] Mother Family Medical History: Diabetes Mellitus Additional Family Medical History / Comment(s): AT AGE 66 FROM COMPLICATIONS FROM DM Sister(s) Family Medical History: Diabetes Mellitus Brother(s) Family Medical History: Diabetes Mellitus Daughter(s) Family Medical History: Cancer Son(s) Family Medical History: No Reported History General Exam General appearance: alert, in no apparent distress Head exam: Present: atraumatic, normocephalic, normal inspection Eye exam: Present: normal appearance, PERRL, EOMI. Absent: scleral icterus, conjunctival injection, periorbital swelling ENT exam: Present: normal exam, mucous membranes moist Neck exam: Present: normal inspection. Absent: tenderness, meningismus, lymphadenopathy Respiratory exam: Present: normal lung sounds bilaterally. Absent: respiratory distress, wheezes, rales, rhonchi, stridor Cardiovascular Exam: Present: regular rate, normal rhythm, normal heart sounds. Absent: systolic murmur, diastolic murmur, rubs, gallop, clicks GI/Abdominal exam: Present: soft, normal bowel sounds. Absent: distended, tenderness, guarding, rebound, rigid Extremities exam: Present: normal inspection, full ROM, normal capillary refill. Absent: tenderness, pedal edema, joint swelling, calf tenderness Back exam: Present: normal inspection Neurological exam: Present: alert, oriented X3, CN II-XII intact Psychiatric exam: Present: normal affect, normal mood Skin exam: Present: warm, dry, intact, normal color. Absent: rash Course Vital Signs 11/28/16 16:46 Temperature 99.9 F H Pulse Rate 98 Respiratory 20 Rate Blood Pressure 125/60 O2 Sat by Pulse 99 Oximetry - Reevaluation(s) Reevaluation #1: 11/28/16 19:18 Patient's medical records and prior ER visits including lab work is reviewed EKG Findings - EKG Comments: EKG Findings:: EKG shows normal sinus rhythm rate of 95, SC 174, QRS 72, QTc 442 Medical Decision Making - Medical Decision Making 60 currently not ER with weakness, patient with positive urinary tract infection , severe dehydration, positive acute renal failure. Patient will be admitted for rehydration Evaluation by nephrology - Lab Data Result diagrams: 11/28/16 17:00 11/28/16 17:00 Lab Results 11/28/16 11/28/16 11/28/16 Range/Units 17:00 17:00 17:00 WBC 6.9 (3.8-10.6) k/uL RBC 2.99 L (3.80-5.40) m/uL Hgb 8.8 L (11.4-16.0) gm/dL Hct 29.0 L (34.0-46.0) % MCV 97.2 (80.0-100.0) fL MCH 29.5 (25.0-35.0) pg MCHC 30.4 L (31.0-37.0) g/dL RDW 19.4 H (11.5-15.5) % Plt Count 343 (150-450) k/uL Neutrophils % 69 % Lymphocytes % 19 % Monocytes % 5 % Eosinophils % 3 % Basophils % 1 % Neutrophils # 4.7 (1.3-7.7) k/uL Lymphocytes # 1.3 (1.0-4.8) k/uL Monocytes # 0.4 (0-1.0) k/uL Eosinophils # 0.2 (0-0.7) k/uL Basophils # 0.0 (0-0.2) k/uL Hypochromasia Slight Anisocytosis Slight Macrocytosis Slight PT (9.0-12.0) sec INR (<1.1) APTT (22.0-30.0) sec Sodium 144 (137-145) mmol/L Potassium 5.1 (3.5-5.1) mmol/L Chloride 109 H (98-107) mmol/L Carbon Dioxide 19 L (22-30) mmol/L Anion Gap 16 mmol/L BUN 58 H (7-17) mg/dL Creatinine 2.78 H (0.52-1.04) mg/dL Est GFR (MDRD) Af Amer 21 (>60 ml/min/1.73 sqM) Est GFR (MDRD) Non-Af 17 (>60 ml/min/1.73 sqM) Glucose 148 H (74-99) mg/dL Calcium 9.0 (8.4-10.2) mg/dL Phosphorus 5.1 H (2.5-4.5) mg/dL Magnesium 2.5 H (1.6-2.3) mg/dL Total Bilirubin 0.7 (0.2-1.3) mg/dL AST 58 H (14-36) U/L ALT 47 (9-52) U/L Alkaline Phosphatase 213 H (38-126) U/L Total Creatine Kinase 662 H (30-135) U/L CK-MB (CK-2) 1.1 (0.0-2.4) ng/mL CK-MB (CK-2) Rel Index 0.2 Troponin I <0.012 (0.000-0.034) ng/mL Total Protein 7.7 (6.3-8.2) g/dL Albumin 3.4 L (3.5-5.0) g/dL 11/28/16 Range/Units 17:00 WBC (3.8-10.6) k/uL RBC (3.80-5.40) m/uL Hgb (11.4-16.0) gm/dL Hct (34.0-46.0) % MCV (80.0-100.0) fL MCH (25.0-35.0) pg MCHC (31.0-37.0) g/dL RDW (11.5-15.5) % Plt Count (150-450) k/uL Neutrophils % % Lymphocytes % % Monocytes % % Eosinophils % % Basophils % % Neutrophils # (1.3-7.7) k/uL Lymphocytes # (1.0-4.8) k/uL Monocytes # (0-1.0) k/uL Eosinophils # (0-0.7) k/uL Basophils # (0-0.2) k/uL Hypochromasia Anisocytosis Macrocytosis PT 11.1 (9.0-12.0) sec INR 1.1 (<1.1) APTT 26.1 (22.0-30.0) sec Sodium (137-145) mmol/L Potassium (3.5-5.1) mmol/L Chloride (98-107) mmol/L Carbon Dioxide (22-30) mmol/L Anion Gap mmol/L BUN (7-17) mg/dL Creatinine (0.52-1.04) mg/dL Est GFR (MDRD) Af Amer (>60 ml/min/1.73 sqM) Est GFR (MDRD) Non-Af (>60 ml/min/1.73 sqM) Glucose (74-99) mg/dL Calcium (8.4-10.2) mg/dL Phosphorus (2.5-4.5) mg/dL Magnesium (1.6-2.3) mg/dL Total Bilirubin (0.2-1.3) mg/dL AST (14-36) U/L ALT (9-52) U/L Alkaline Phosphatase (38-126) U/L Total Creatine Kinase (30-135) U/L CK-MB (CK-2) (0.0-2.4) ng/mL CK-MB (CK-2) Rel Index Troponin I (0.000-0.034) ng/mL Total Protein (6.3-8.2) g/dL Albumin (3.5-5.0) g/dL - Radiology Data Radiology results: report reviewed (Chest x-ray is negative for acute disease), image reviewed Disposition Clinical Impression: Chronic UTI, Generalized weakness, Acute renal failure (ARF) Disposition: ADMITTED IP TO THIS [facility] Condition: Fair Referrals: Willis Gurrola MD [Primary Care Provider] - 1-2 days
[2016-11-28] MEDS ORDERED: SODIUM CHLORIDE 0.9% 1,000 ML IV STA ×3 (16:53→19:15)
[2016-11-28 17:35] LABS: Anisocytosis Slight; Basophils % (A) 1 %; CH 30.2; CHCM 31.2; Eosinophils # (A) 0.2 k/uL (0-0.7); Eosinophils % (A) 3 %; HDW 2.77; HGB 8.8 gm/dL (11.4-16.0); Hypochromasia Slight; Luc # (Auto) 0.25; Luc % (Auto) 4; Lymphocytes # (A) 1.3 k/uL (1.0-4.8); Lymphocytes % (A) 19 %; MCH 29.5 pg (25.0-35.0); MCHC 30.4 g/dL (31.0-37.0); MCV 97.2 fL (80.0-100.0); Macrocytosis Slight; Mean Platelet Volume 6.9; Monocytes # (A) 0.4 k/uL (0-1.0); Monocytes % (A) 5 %; Neutrophils # (A) 4.7 k/uL (1.3-7.7); Neutrophils % (A) 69 %; RBC 2.99 m/uL (3.80-5.40); RDW 19.4 % (11.5-15.5); WBC 6.9 k/uL (3.8-10.6); WBC (Perox) 7.25
[2016-11-28 17:41] LABS: INR 1.1 (<1.1); Partial Thromboplastin Time 26.1 sec (22.0-30.0); Prothrombin Time 11.1 sec (9.0-12.0)
[2016-11-28 17:50] LABS: Creatine Kinase 662 U/L (30-135)
[2016-11-28 17:52] LABS: Magnesium 2.5 mg/dL (1.6-2.3); Phosphorous 5.1 mg/dL (2.5-4.5); Potassium 5.1 mmol/L (3.5-5.1); Total Bilirubin 0.7 mg/dL (0.2-1.3); Total Protein 7.7 g/dL (6.3-8.2)
--- NOTE | 2016-11-28 17:59 | XR ---
EXAMINATION TYPE: XR chest 2V DATE OF EXAM: 11/28/2016 5:43 PM COMPARISON: Prior chest x-ray 19 August 2016 HISTORY: Weakness TECHNIQUE: Frontal and lateral views of the chest are obtained. FINDINGS: There is no focal air space opacity, pleural effusion, or pneumothorax seen. The cardiac silhouette size is stable, likely accentuation of heart size is due to rotation. There are overlying cardiac leads. Prominent lung volume may be indicative of underlying COPD. The osseous structures ar e intact. IMPRESSION: No acute cardiopulmonary process.
[2016-11-28 18:02] LABS: Creatine Kinase MB 1.1 ng/mL (0.0-2.4); Troponin I <0.012 ng/mL (0.000-0.034)
[2016-11-28] MEDS ORDERED: SODIUM CHLORIDE 0.9% 1,000 ML IV ONE (19:15)
[2016-11-28 19:41] LABS: Appearance,Urine Cloudy (Clear); Bacteria,Urine Moderate /hpf; Bilirubin,Urine Negative (Negative); Glucose,Urine (UA) Negative (Negative); Ketones,Urine 1+ (Negative); Leukocyte Esterase,Urine Large (Negative); Mucus,Urine Occasional /hpf; Nitrite,Urine Negative (Negative); Particle Count 6038; Protein,Urine Trace (Negative); RBC,Urine 13 /hpf (0-5); Specific Gravity,Urine 1.012 (1.001-1.035); Squamous Epithelial Cell,Urine 3 /hpf (0-4); UA Billing (MACRO vs. MICRO) MICRO; Urobilinogen,Urine <2.0 mg/dL (<2.0); WBC,Urine 101 /hpf (0-5)
[2016-11-28 20:42] VITALS: BMI 34.0
[2016-11-28 21:12] LABS: Glucose,Whole Blood 135 mg/dL (75-99)
[2016-11-28] MEDS ORDERED: oxyCODONE-APAP 10-325MG 1 EACH TAB PO PRN (22:20)
[2016-11-28] MEDS ORDERED: PANTOPRAZOLE 40 MG/10 ML VIAL IVP SCH (22:45)
[2016-11-28] MEDS: MORPHINE SULFATE ER 30 MG TABLET PO SCH (23:07)
[2016-11-28] MEDS: PREGABALIN 75 MG CAP PO SCH (23:09)
[2016-11-28] MEDS: ATORVASTATIN 40 MG TAB PO SCH (23:09)
[2016-11-29 06:59] LABS: Glucose,Whole Blood 124 mg/dL (75-99)
[2016-11-29] MEDS ORDERED: CALCIUM CARBONATE 500 MG CHEWABLE PO PRN (08:11)
[2016-11-29] MEDS ORDERED: MAGNESIUM HYDROXIDE 2,400 MG/10 ML CUP PO PRN (08:11)
[2016-11-29] MEDS ORDERED: oxyCODONE-APAP 10-325MG 1 EACH TAB PO PRN (08:11)
[2016-11-29] MEDS ORDERED: BISACODYL 5 MG TABLET.DR PO PRN (08:11)
[2016-11-29] MEDS ORDERED: CYANOCOBALAMIN 1,000 MCG/ML 1 ML VIAL IM SCH (08:15)
--- NOTE | 2016-11-29 08:22 | P.HPIM ---
History of Present Illness H&P Date: 11/29/16 Chief Complaint: Generalized debility and weakness. This is a history of physical 66-year-old white female with known history of generalized weakness and multiple falls. She recently was discharged from [facility] about a week ago. About 2 days ago she had continued multiple falls and weakness. She hasn't underlying history diabetes, morbid obesity and chronic left lower extremity DVT and cellulitis with Liz[place] filter. For the past several days she's been having multiple falls. She is usually had good support at home, however she has no family support because of her daughter living in [place]. I suspect that home is no longer be "safest" for her. Review of Systems Constitutional: Reports weakness Eyes: denies blurred vision, denies pain Cardiovascular: Denies chest pain, Denies shortness of breath Respiratory: Denies cough Gastrointestinal: Denies abdominal pain, Denies diarrhea, Denies nausea, Denies vomiting Genitourinary: Denies dysuria, Denies hematuria Musculoskeletal: Denies myalgias Integumentary: Denies pruritus, Denies rash Psychiatric: Denies anxiety, Denies depression Endocrine: Denies fatigue, Denies weight change Past Medical History Past Medical History: Diabetes Mellitus, Deep Vein Thrombosis (DVT), Fibromyalgia, GI Bleed, Hypertension, Skin Disorder, Sleep Apnea/CPAP/BIPAP Additional Past Medical History / Comment(s): Pt recently fell (April 2016) and had L eye contusion/L lower leg laceration-surgically repaired/DVT L lower leg and acute blood loss anemia. Other HX: IDDM type II, DVT L leg, bilateral lower leg cellulitis with L lower leg cellulitis. rt heel pressure ulcer-SINCE HEALED, peripheral neuropathy bilateral hands and feet, falls, chronic UTI'S, bilateral tinnitis, hemorrhoids, migraines, obesity, high cholesterol, chronic back pain, eczema, sinus problems, sleep apnea no CPAP, stomach ulcers, lower GI bleed. 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 Source:: Left leg-MRSA; Urine-VRE Past Surgical History: Adenoidectomy, Bariatric Surgery, Cholecystectomy, Joint Replacement, Tonsillectomy, Tubal Ligation Additional Past Surgical History / Comment(s): Gastric bypass, [place]-en-Y in 2003 , [place] filter placement in 2000, teeth extraction, colonoscopy, EGD, hemorrhoidectomy, panniculectomy, D&C, hystoscopy x 2, LT KNEE replaced 2005- MRSA infection-hardware removed and cemented then replaced again, L hip repair with screw and total R hip REPLACEMENT, bilateral heel spurs removed, bilateral carpal tunnel releases, D&Cs, infusaport insertion since removed. Past Anesthesia/Blood Transfusion Reactions: No Reported Reaction Additional Past Anesthesia/Blood Transfusion Reaction / Comment(s): pt has received blood in the past without reaction. Past Psychological History: Anxiety, Depression Additional Psychological History / Comment(s): Pt lives with a roomate. She is wheelchair bound. She has an aide coming 3 times a week for bathing. She manages her own medication. Goes to wound care center every tuesday. She does not drive any longer. She gets to [facility] by bus. Smoking Status: Former smoker Past Alcohol Use History: Rare Additional Past Alcohol Use History / Comment(s): She has history of smoking 2 packs per day for 27 years and quit in 1993. She drinks alcohol rarely. 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 pt stated SHE HAS HOME CARE WITH VISITNG NURSES. uses a w/c Past Drug Use History: Marijuana, Marijuana Additional Drug Use History / Comment(s): pt admits to marujuana use when she is in a lot of pain. - Past Family History Father Family Medical History: Myocardial Infarction ([place]) Additional Family Medical History / Comment(s): AT AGE 46-[place] Mother Family Medical History: Diabetes Mellitus Additional Family Medical History / Comment(s): AT AGE 66 FROM COMPLICATIONS FROM DM Sister(s) Family Medical History: Diabetes Mellitus Brother(s) Family Medical History: Diabetes Mellitus Daughter(s) Family Medical History: Cancer Son(s) Family Medical History: No Reported History Medications and Allergies Home Medications Medication Instructions Recorded Confirmed Type Atorvastatin [Lipitor] 40 mg PO HS 08/30/15 11/24/16 History Sennosides [Senokot] 8.6 mg PO DAILY PRN 08/30/15 11/24/16 History Biotin 5 mg PO DAILY 08/31/15 11/24/16 History Allopurinol [Zyloprim] 100 mg PO BID 05/21/16 11/24/16 History Calcium Carbonate [Tums] 500 mg PO DAILY PRN 05/21/16 11/24/16 History Calcium Carbonate/Vitamin D3 1 tab PO DAILY 05/21/16 11/24/16 History [Calcium 600-Vit D3 400 Caplet] Furosemide [Lasix] 80 mg PO QAM 05/21/16 11/24/16 History Omeprazole 20 mg PO QAM 05/21/16 11/24/16 History Pregabalin [Lyrica] 150 mg PO BID 05/21/16 11/24/16 History metFORMIN HCL 1,000 mg PO BID 05/21/16 11/24/16 History Ascorbic Acid [Vitamin C] 500 mg PO DAILY 06/29/16 11/24/16 History Bisacodyl 5 mg PO DAILY PRN 06/29/16 11/24/16 History Cholecalciferol [Vitamin D3] 2,000 unit PO DAILY 06/29/16 11/24/16 History Ferrous Sulfate [Iron (65 MG 650 mg PO DAILY 06/29/16 11/24/16 History Elemental)] Magnesium Hydroxide [Milk of 2,400 mg PO DAILY PRN 06/29/16 11/24/16 History Magnesia] Multivit with Calcium,Iron,Min 1 tab PO DAILY 06/29/16 11/24/16 History [Women's Multivitamin] Polyethylene Glycol 3350 [Miralax] 17 gm PO DAILY 06/29/16 11/24/16 History Vitamin E (Dl,Tocopheryl Acet) 400 unit PO DAILY 06/29/16 11/24/16 History [Vitamin E] tiZANidine [Zanaflex] 4 mg PO DAILY 06/29/16 11/24/16 History Acetaminophen [Tylenol] 325 mg PO Q4H PRN 10/27/16 11/24/16 History Ranitidine HCl 150 mg PO BID 10/27/16 11/24/16 History Cyanocobalamin [Vitamin B-12 1,000 mcg IM DIRECTED 11/03/16 11/24/16 History Injection] Nitrofurantoin Monohyd/M-Cryst 100 mg PO Q12HR 11/10/16 11/24/16 History [Macrobid] INSULIN LISPRO (humaLOG) [humaLOG 3 unit SQ TID 11/28/16 11/28/16 History (formulary)] Allergies Allergy/AdvReac Type Severity Reaction Status Date / Time adhesive tape Allergy Severe Rash/Hives Verified 11/28/16 16:50 cephalexin monohydrate Allergy Severe Rash/Hives Verified 11/28/16 16:50 [From Keflex] influenza virus vaccine, Allergy Severe Anaphylaxis Verified 11/28/16 16:50 specific [influenza virus vacc,specific] latex Allergy Severe Rash/Hives Verified 11/28/16 16:50 peanut Allergy Severe Anaphylaxis Verified 11/28/16 16:50 Penicillins Allergy Severe Swelling Verified 11/28/16 16:50 tetanus toxoid, adsorbed Allergy Intermediate Rash/Hives Verified 11/28/16 16:50 Physical Exam Vitals: Vital Signs Temp Pulse Pulse Resp BP BP Pulse Ox 11/28/16 23:00 98.2 F 100 12 138/69 93 L 11/28/16 20:44 98.5 F 93 16 142/65 98 11/28/16 20:01 99.0 F 93 20 141/68 99 11/28/16 19:29 98.3 F 77 20 152/68 99 Intake and Output 11/28/16 11/29/16 11/29/16 22:59 06:59 14:59 Intake Total 480 Output Total 200 Balance 280 Intake: Oral 480 Output: Urine 200 Uretheral (Coffey) 200 Other: Voiding Method Diaper Incontinent # Voids 1 1 Weight 87 kg - Constitutional General appearance: obese - Neck Neck: no lymphadenopathy - Respiratory Respiratory: bilateral: diminished - Cardiovascular Rhythm: regular Heart sounds: normal: S1, S2 - Gastrointestinal General gastrointestinal: soft, no tenderness - Neurologic Neurologic: CNII-XII intact - Musculoskeletal Musculoskeletal: generalized weakness - Psychiatric Psychiatric: A&O x's 3, appropriate affect, intact judgment & insight Results CBC & Chem 7: 11/28/16 17:00 11/28/16 17:00 Labs: Abnormal Lab Results - Last 24 Hours (Table) 11/28/16 11/29/16 Range/Units 21:07 06:56 POC Glucose (mg/dL) 135 H 124 H (75-99) mg/dL Thrombosis Risk Factor Assmnt - Choose All That Apply Any of the Below Risk Factors Present?: Yes Each Factor Represents 1 point: Obesity (BMI >25), Swollen legs (current) Other Risk Factors: Yes Each Risk Factor Represents 2 Points: Age 61-74 years Each Risk Factor Represents 3 Points: History of DVT/PE Other congenital or acquired thrombophilia - If yes, enter type in comment: No Thrombosis Risk Factor Assessment Total Risk Factor Score: 7 Thrombosis Risk Factor Assessment Level: High Risk Assessment and Plan (1) Acute renal failure (ARF) Status: Acute (2) Cellulitis of leg Status: Acute (3) Fall Status: Acute (4) Urinary tract disease Status: Acute Plan: The patient will be started on PT and OT. Discharge planning. I suspect that given her multiple falls, she is not appropriate to go home at this time. She recently was discharged from the [facility]. Multifactorial issues regarding her placement REconcile medication Consult nephrology. Check CBC and CMP in aM Time with Patient: Greater than 30
[2016-11-29] MEDS ORDERED: ENOXAPARIN 40 MG/0.4 ML SYRINGE SQ SCH (09:00)
[2016-11-29] MEDS ORDERED: NON-FORMULARY DRUG (Biotin [Biotin] 5 MG) PO SCH (09:00)
[2016-11-29] MEDS ORDERED: MORPHINE SULFATE ER 30 MG TABLET PO SCH (09:00)
[2016-11-29] MEDS: MORPHINE SULFATE ER 30 MG TABLET PO SCH ×2 (09:22→21:49)
[2016-11-29] MEDS: DULoxetine HCL 30 MG CAPSULE.DR PO SCH (09:23)
[2016-11-29] MEDS: OLANZapine 2.5 MG TAB PO SCH ×2 (09:23→21:50)
[2016-11-29] MEDS: ALLOPURINOL 100 MG TAB PO SCH ×2 (09:24→21:49)
[2016-11-29] MEDS: tiZANidine 4 MG TAB PO SCH (09:24)
[2016-11-29] MEDS: FUROSEMIDE 80 MG TAB PO SCH (09:24)
[2016-11-29] MEDS: POTASSIUM CHLORIDE ER 20 MEQ TAB.ER PO SCH ×2 (09:24→12:33)
[2016-11-29] MEDS: PANTOPRAZOLE 40 MG TABLET PO SCH (09:24)
[2016-11-29] MEDS: FAMOTIDINE 20 MG TAB PO SCH (09:24)
[2016-11-29] MEDS: SENNOSIDES 8.6 MG TAB PO SCH (09:26)
[2016-11-29] MEDS: PREGABALIN 75 MG CAP PO SCH ×2 (09:28→21:51)
[2016-11-29] MEDS: SODIUM CHLORIDE 0.9% 1,000 ML IV SCH (10:54)
[2016-11-29 10:57] LABS: Hemoglobin A1C 6.8 % (4.2-6.1)
[2016-11-29 11:56] LABS: Glucose,Whole Blood 217 mg/dL (75-99)
[2016-11-29 12:15] LABS: Calcium 8.6 mg/dL (8.4-10.2); Potassium 4.4 mmol/L (3.5-5.1); Total Bilirubin 0.5 mg/dL (0.2-1.3); Total Protein 6.5 g/dL (6.3-8.2)
[2016-11-29] MEDS: ASCORBIC ACID 500 MG TAB PO SCH (12:33)
[2016-11-29] MEDS: MULTIVITAMINS, THERA 1 EACH TAB PO SCH (12:34)
[2016-11-29] MEDS: VITAMIN E (DL,TOCOPHERYL ACET) 400 UNIT CAP PO SCH (12:34)
[2016-11-29] MEDS: FERROUS SULFATE 325 MG TAB PO SCH (12:34)
[2016-11-29] MEDS: CHOLECALCIFEROL 1,000 UNIT TAB PO SCH (12:34)
--- NOTE | 2016-11-29 13:08 | CONS ---
DATE OF CONSULTATION: 11/29/2016 REASON FOR CONSULTATION: Renal failure. HISTORY OF PRESENT ILLNESS: Patient is a 66-year-old female who was admitted to the hospital with increased weakness. She was just discharged from an extended-care facility about a week ago where she had been with history of multiple falls. Patient states that she has had ( ) kidney function before but has not seen a janitorial cleaner as outpatient previously. She has underlying history of diabetes, hypertension and was admitted with a serum creatinine of 2.78 mg/dL. Patient was maintained on IV fluids at about 100 mL an hour, which is now discontinued. Her last creatinine was 1.15 on 08/24/2016. Currently patient has good urine output. No history of use of NSAIDs prior to admission. Blood pressure has been about 130 to 140 mmHg systolic. No history of fever, nausea, vomiting, diarrhea, or abdominal pain. PAST MEDICAL HISTORY: Diabetes, hypertension, obesity, history of leg wounds with MRSA infections, history of DVT, fibromyalgia, GI bleed, obstructive sleep apnea, DVT left lower extremity, right heel ulcer, peripheral neuropathy, history of UTI, hemorrhoids, migraines, hypercholesterolemia, eczema. PAST SURGICAL HISTORY: Adenoidectomy, bariatric surgery, cholecystectomy, tubal ligation, tonsillectomy, EGD, hemorrhoidectomy, panniculectomy, D&C, left knee arthroplasty, heel spur surgery. SOCIAL HISTORY: The patient is an ex-smoker. No history of drug abuse or alcohol abuse. REVIEW OF SYSTEMS: As per HPI, other systems negative. Medications at home are multiple, please see list. Allergies are multiple as well, please see list. On examination, the patient is comfortable, awake. She is not in any acute distress. Blood pressure is 138/69 from last night, this morning 142/65, heart rate 98 per minute. The patient is afebrile. EXAMINATION OF THE HEART: S1 and S2. EXAMINATION OF THE LUNGS: Bilateral breath sounds are heard. ABDOMEN: Soft, morbidly obese. Examination of lower extremities shows bilateral extremities to be wrapped. Chronic skin changes are noted. Trace edema is noted. PASSPORT SUPPORT MANAGER exam is grossly intact. Patient is moving all 4 extremities. Labs from yesterday show sodium 144, potassium 5.1, chloride 109, BUN 58, serum creatinine 2.78. Hemoglobin 8.8 g/dL. ASSESSMENT: 1. Acute kidney injury, most likely acute tubular necrosis, currently nonoliguric. We will repeat labs today as well as in a.m. UA shows multiple hyaline casts. There is trace protein and 1+ ( ) noted. We will repeat labs today. I will continue IV fluids at about 60 mL and hour. There is no evidence of volume overload noted at this time. 2. Anemia, rule out iron deficiency. 3. Chronic kidney disease with prior creatinine at about 1.1 mg/dL in July 2014. NKF stage III with baseline GFR close to 47 to 50 mL per minute, etiology is likely diabetic nephropathy and nephrosclerosis. 4. Rule out urinary tract infection. Urine culture is currently pending. PLAN: Continue gentle IV hydration. Encourage increased oral intake. Avoid nephrotoxic agents. Repeat labs today as well as in a.m. Thank you for this consultation. Will continue to follow the patient with you during her hospitalization.
[2016-11-29 15:24] LABS: Glucose,Whole Blood 184 mg/dL (75-99)
[2016-11-29 17:10] LABS: Glucose,Whole Blood 146 mg/dL (75-99)
[2016-11-29] MEDS: INSULIN LISPRO (humaLOG) 300 UNIT/3 ML VIAL SQ SCH ×2 (18:06→21:50)
[2016-11-29 20:47] LABS: Glucose,Whole Blood 140 mg/dL (75-99)
[2016-11-29] MEDS: ATORVASTATIN 40 MG TAB PO SCH (21:49)
[2016-11-30] MEDS ORDERED: NALOXONE 0.4 MG/ML 10 ML VIAL IVP ONE (00:43)
[2016-11-30] MEDS: ALLOPURINOL 100 MG TAB PO SCH ×2 (01:25→21:38)
[2016-11-30] MEDS: PREGABALIN 75 MG CAP PO SCH ×2 (01:25→21:37)
[2016-11-30] MEDS: ATORVASTATIN 40 MG TAB PO SCH (01:25)
[2016-11-30] MEDS: OLANZapine 2.5 MG TAB PO SCH ×2 (01:25→21:38)
[2016-11-30] MEDS ORDERED: NALOXONE 0.4 MG/ML 1 ML VIAL IV ONE (01:30)
[2016-11-30] MEDS: SODIUM CHLORIDE 0.9% 1,000 ML IV SCH (06:33)
[2016-11-30] MEDS: MORPHINE SULFATE ER 30 MG TABLET PO SCH (07:18)
[2016-11-30 08:15] LABS: Glucose,Whole Blood 146 mg/dL (75-99)
[2016-11-30] MEDS: INSULIN LISPRO (humaLOG) 300 UNIT/3 ML VIAL SQ SCH ×4 (08:32→21:38)
[2016-11-30] MEDS ORDERED: ENOXAPARIN 30 MG/0.3 ML SYRINGE SQ SCH (09:00)
[2016-11-30] MEDS: FAMOTIDINE 20 MG TAB PO SCH (09:14)
[2016-11-30] MEDS: SENNOSIDES 8.6 MG TAB PO SCH (09:14)
[2016-11-30] MEDS: PANTOPRAZOLE 40 MG TABLET PO SCH (09:15)
[2016-11-30] MEDS: FUROSEMIDE 80 MG TAB PO SCH (09:15)
[2016-11-30] MEDS: DULoxetine HCL 30 MG CAPSULE.DR PO SCH (09:15)
[2016-11-30] MEDS: tiZANidine 4 MG TAB PO SCH (09:15)
[2016-11-30 10:18] LABS: Anisocytosis Slight; CH 30.4; CHCM 31.6; HCT 28.5 % (34.0-46.0); HDW 2.99; HGB 8.8 gm/dL (11.4-16.0); Hypochromasia Slight; MCV 96.8 fL (80.0-100.0); Macrocytosis Slight; Mean Platelet Volume 7.1; RBC 2.94 m/uL (3.80-5.40); RDW 19.8 % (11.5-15.5); WBC 6.6 k/uL (3.8-10.6)
[2016-11-30 10:26] LABS: Calcium 8.8 mg/dL (8.4-10.2); Total Bilirubin 0.6 mg/dL (0.2-1.3); Total Protein 6.6 g/dL (6.3-8.2)
[2016-11-30 11:39] LABS: Glucose,Whole Blood 218 mg/dL (75-99)
[2016-11-30] MEDS: SODIUM CHLORIDE 0.45% 1,000 ML IV SCH (12:42)
[2016-11-30] MEDS: ASCORBIC ACID 500 MG TAB PO SCH (12:44)
[2016-11-30] MEDS: FERROUS SULFATE 325 MG TAB PO SCH (12:44)
[2016-11-30] MEDS: MULTIVITAMINS, THERA 1 EACH TAB PO SCH (12:45)
[2016-11-30] MEDS: VITAMIN E (DL,TOCOPHERYL ACET) 400 UNIT CAP PO SCH (12:45)
[2016-11-30] MEDS: CHOLECALCIFEROL 1,000 UNIT TAB PO SCH (13:42)
[2016-11-30] MEDS ORDERED: LEVOFLOXACIN 500MG-D5W PMX 500 MG in DEXTROSE/WATER 1 100ML.BAG IVPB SCH (16:00)
--- NOTE | 2016-11-30 16:37 | P.GSCN ---
History of Present Illness Consult date: 11/30/16 Reason for Consult: Left lower extremity wound care management Requesting physician: Willis Gurrola History of present illness: This 66-year-old female with history of diabetes, DVT, hypertension, sleep apnea , peripheral neuropathy and recent fall with ulcerations of her left leg presented to ER via EMS with generalized weakness. Apparently she was recently discharged from extended care facility but has continued to have multiple falls. Dr. Perez was consulted for recommendations on wound care as he did a surgical debridement of her left lower extremity in September of this year with follow-up last week. Review of Systems 14 point review of systems was completed and was negative except as noted. Of note, review of systems was difficult as patient is lethargic and confused. - Constitutional Reports as per HPI, Reports fatigue, Reports weakness - Musculoskeletal left: foot pain (Complains of pain) Past Medical History Past Medical History: Diabetes Mellitus, Deep Vein Thrombosis (DVT), Fibromyalgia, GI Bleed, Hypertension, Skin Disorder, Sleep Apnea/CPAP/BIPAP Additional Past Medical History / Comment(s): Pt recently fell (April 2016) and had L eye contusion/L lower leg laceration-surgically repaired/DVT L lower leg and acute blood loss anemia. Other HX: IDDM type II, DVT L leg, bilateral lower leg cellulitis with L lower leg cellulitis. rt heel pressure ulcer-SINCE HEALED, peripheral neuropathy bilateral hands and feet, falls, chronic UTI'S, bilateral tinnitis, hemorrhoids, migraines, obesity, high cholesterol, chronic back pain, eczema, sinus problems, sleep apnea no CPAP, stomach ulcers, lower GI bleed. 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 Past Anesthesia/Blood Transfusion Reactions: No Reported Reaction Additional Past Anesthesia/Blood Transfusion Reaction / Comm: pt has received blood in the past without reaction. Past Psychological History: Anxiety, Depression Additional Psychological History / Comment(s): Pt lives with a roomate. She is wheelchair bound. She has an aide coming 3 times a week for bathing. She manages her own medication. Goes to wound care center every tuesday. She does not drive any longer. She gets to [facility] by bus. Smoking Status: Former smoker Past Alcohol Use History: Rare Additional Past Alcohol Use History / Comment(s): She has history of smoking 2 packs per day for 27 years and quit in 1993. She drinks alcohol rarely. 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 pt stated SHE HAS HOME CARE WITH VISITNG NURSES. uses a w/c Past Drug Use History: Marijuana, Marijuana Additional Drug Use History / Comment(s): pt admits to marujuana use when she is in a lot of pain. - Past Family History Father Family Medical History: Myocardial Infarction ([place]) Additional Family Medical History / Comment(s): AT AGE 46-[place] Mother Family Medical History: Diabetes Mellitus Additional Family Medical History / Comment(s): AT AGE 66 FROM COMPLICATIONS FROM DM Sister(s) Family Medical History: Diabetes Mellitus Brother(s) Family Medical History: Diabetes Mellitus Daughter(s) Family Medical History: Cancer Son(s) Family Medical History: No Reported History Medications and Allergies Home Medications Medication Instructions Recorded Confirmed Type Atorvastatin [Lipitor] 40 mg PO HS 08/30/15 11/29/16 History Sennosides [Senokot] 8.6 mg PO DAILY PRN 08/30/15 11/29/16 History Biotin 5 mg PO DAILY 08/31/15 11/29/16 History Allopurinol [Zyloprim] 100 mg PO BID 05/21/16 11/29/16 History Calcium Carbonate [Tums] 500 mg PO DAILY PRN 05/21/16 11/29/16 History Calcium Carbonate/Vitamin D3 1 tab PO DAILY 05/21/16 11/29/16 History [Calcium 600-Vit D3 400 Caplet] Furosemide [Lasix] 80 mg PO QAM 05/21/16 11/29/16 History Pregabalin [Lyrica] 150 mg PO BID 05/21/16 11/29/16 History metFORMIN HCL 1,000 mg PO BID 05/21/16 11/29/16 History Ascorbic Acid [Vitamin C] 500 mg PO DAILY 06/29/16 11/29/16 History Bisacodyl 5 mg PO DAILY PRN 06/29/16 11/29/16 History Cholecalciferol [Vitamin D3] 2,000 unit PO DAILY 06/29/16 11/29/16 History Ferrous Sulfate [Iron (65 MG 650 mg PO DAILY 06/29/16 11/29/16 History Elemental)] Magnesium Hydroxide [Milk of 2,400 mg PO DAILY PRN 06/29/16 11/29/16 History Magnesia] Multivit with Calcium,Iron,Min 1 tab PO DAILY 06/29/16 11/29/16 History [Women's Multivitamin] Polyethylene Glycol 3350 [Miralax] 17 gm PO DAILY 06/29/16 11/29/16 History Vitamin E (Dl,Tocopheryl Acet) 400 unit PO DAILY 06/29/16 11/29/16 History [Vitamin E] tiZANidine [Zanaflex] 4 mg PO DAILY 06/29/16 11/29/16 History Acetaminophen [Tylenol] 325 mg PO Q4H PRN 10/27/16 11/29/16 History Ranitidine HCl 150 mg PO BID 10/27/16 11/29/16 History INSULIN LISPRO (humaLOG) [humaLOG 3 unit SQ QID 11/28/16 11/29/16 History (formulary)] Sulfamethoxazole/Trimethoprim 1 tab PO BID 11/29/16 11/29/16 History [Bactrim DS 800-160 mg] rOPINIRole HCL [Requip] 0.25 mg PO HS 11/29/16 11/29/16 History Allergies Allergy/AdvReac Type Severity Reaction Status Date / Time adhesive tape Allergy Severe Rash/Hives Verified 11/28/16 16:50 cephalexin monohydrate Allergy Severe Rash/Hives Verified 11/28/16 16:50 [From Keflex] influenza virus vaccine, Allergy Severe Anaphylaxis Verified 05/07/17 16:50 specific [influenza virus vacc,specific] latex Allergy Severe Rash/Hives Verified 11/28/16 16:50 peanut Allergy Severe Anaphylaxis Verified 11/28/16 16:50 Penicillins Allergy Severe Swelling Verified 11/28/16 16:50 tetanus toxoid, adsorbed Allergy Intermediate Rash/Hives Verified 11/28/16 16:50 Surgical - Exam Vital Signs Temp Pulse Resp BP Pulse Ox 99.9 F H 98 20 125/60 99 11/28/16 16:46 11/28/16 16:46 11/28/16 16:46 11/28/16 16:46 11/28/16 16:46 - General no distress, obese - Eyes PERRL, normal ocular movement - ENT no hearing loss - Neck trachea midline - Respiratory Lungs sounds diminished bilaterally. Currently on 3 L nasal cannula. normal expansion, normal respiratory effort - Cardiovascular Rhythm: regular Heart Sounds: normal: S1, S2 - Abdomen Abdomen: soft, non tender, bowel sounds - Genitourinary Deferred - Rectum Deferred - Integumentary Left lower extremity with compression wrap in place. - Neurologic normal sensation - Psychiatric oriented to person, speech is normal Results - Labs 11/30/16 09:24 11/30/16 09:24 Abnormal Lab Results - Last 24 Hours (Table) 11/29/16 11/29/16 11/30/16 Range/Units 17:02 20:46 08:13 RBC (3.80-5.40) m/uL Hgb (11.4-16.0) gm/dL Hct (34.0-46.0) % RDW (11.5-15.5) % Sodium (137-145) mmol/L Chloride (98-107) mmol/L Carbon Dioxide (22-30) mmol/L BUN (7-17) mg/dL Creatinine (0.52-1.04) mg/dL Glucose (74-99) mg/dL POC Glucose (mg/dL) 146 H 140 H 146 H (75-99) mg/dL Alkaline Phosphatase (38-126) U/L Albumin (3.5-5.0) g/dL 11/30/16 11/30/16 11/30/16 Range/Units 09:24 09:24 11:36 RBC 2.94 L (3.80-5.40) m/uL Hgb 8.8 L (11.4-16.0) gm/dL Hct 28.5 L (34.0-46.0) % RDW 19.8 H (11.5-15.5) % Sodium 150 H (137-145) mmol/L Chloride 117 H (98-107) mmol/L Carbon Dioxide 20 L (22-30) mmol/L BUN 38 H (7-17) mg/dL Creatinine 1.48 H (0.52-1.04) mg/dL Glucose 200 H (74-99) mg/dL POC Glucose (mg/dL) 218 H (75-99) mg/dL Alkaline Phosphatase 149 H (38-126) U/L Albumin 2.7 L (3.5-5.0) g/dL Diabetes panel 11/30/16 Range/Units 09:24 Sodium 150 H (137-145) mmol/L Potassium 4.0 (3.5-5.1) mmol/L Chloride 117 H (98-107) mmol/L Carbon Dioxide 20 L (22-30) mmol/L BUN 38 H (7-17) mg/dL Creatinine 1.48 H (0.52-1.04) mg/dL Glucose 200 H (74-99) mg/dL Calcium 8.8 (8.4-10.2) mg/dL AST 31 (14-36) U/L ALT 35 (9-52) U/L Alkaline Phosphatase 149 H (38-126) U/L Total Protein 6.6 (6.3-8.2) g/dL Albumin 2.7 L (3.5-5.0) g/dL Calcium panel 11/30/16 Range/Units 09:24 Calcium 8.8 (8.4-10.2) mg/dL Albumin 2.7 L (3.5-5.0) g/dL Pituitary panel 11/30/16 Range/Units 09:24 Sodium 150 H (137-145) mmol/L Potassium 4.0 (3.5-5.1) mmol/L Chloride 117 H (98-107) mmol/L Carbon Dioxide 20 L (22-30) mmol/L BUN 38 H (7-17) mg/dL Creatinine 1.48 H (0.52-1.04) mg/dL Glucose 200 H (74-99) mg/dL Calcium 8.8 (8.4-10.2) mg/dL Adrenal panel 11/30/16 Range/Units 09:24 Sodium 150 H (137-145) mmol/L Potassium 4.0 (3.5-5.1) mmol/L Chloride 117 H (98-107) mmol/L Carbon Dioxide 20 L (22-30) mmol/L BUN 38 H (7-17) mg/dL Creatinine 1.48 H (0.52-1.04) mg/dL Glucose 200 H (74-99) mg/dL Calcium 8.8 (8.4-10.2) mg/dL Total Bilirubin 0.6 (0.2-1.3) mg/dL AST 31 (14-36) U/L ALT 35 (9-52) U/L Alkaline Phosphatase 149 H (38-126) U/L Total Protein 6.6 (6.3-8.2) g/dL Albumin 2.7 L (3.5-5.0) g/dL - Imaging Chest x-ray: report reviewed, image reviewed Assessment and Plan (1) Lower limb ulcer Status: Acute Plan: The patient was seen and examined. She is somewhat lethargic and confused. She was supposed to see Dr. Perez tomorrow for follow-up regarding her left lower extremity dressing. Will discuss with Dr. Perez the plan for appropriate dressing for this patient. Thank you Dr. Gurrola for this consult. We look forward to working with you in the care of your patient. Time with Patient: Greater than 30
[2016-11-30 16:59] LABS: Glucose,Whole Blood 156 mg/dL (75-99)
--- NOTE | 2016-11-30 20:42 | PN ---
Patient is seen for follow-up for acute kidney injury. Her renal function has been improving. The patient was started on gentle IV hydration yesterday. Her creatinine is down to 1.48 from 2.78 mg/dL. The patient has been voiding. Her sodium is high at 150 today. I will change the normal saline to half normal saline. On examination, blood pressure is 115/66, heart rate 75 per minute. The patient is afebrile. Examination of the heart S1 and S2. Examination of the lungs: Decreased breath sounds at the bases. ABDOMEN: Soft, obese, nontender. Examination of the lower extremities shows chronic skin changes. No significant edema is noted. Labs show sodium 150, potassium 4.0. Hemoglobin 8.8, creatinine 1.48, albumin 2.7, calcium is 8.8 mg/dL. ASSESSMENT: 1. Acute kidney injury. Acute tubular necrosis currently nonoliguric with improving renal function. Patient was also hypovolemic. She is maintained on IV fluids at 50 mL an hour, which I will continue for now. I will hold off on the Lasix. She may continue with the Glucophage as renal function has improved. 2. Chronic kidney disease stage III with baseline creatinine about 1.1, most likely secondary to diabetic nephropathy and nephrosclerosis. PLAN: Continue gentle IV hydration and encourage increased oral intake. I will hold off on the Lasix for now. Repeat labs in a.m.
[2016-11-30 21:36] LABS: Glucose,Whole Blood 141 mg/dL (75-99)
[2016-11-30] MEDS: metFORMIN 500 MG TAB PO SCH (22:10)
--- NOTE | 2016-11-30 23:15 | P.PN ---
Subjective Principal diagnosis: Continuing care-lethargy. Discontinue impression a 66-year-old white female essentially admitted for multiple falls and element of weakness. She has very lethargic today. We will withhold any type of mind altering benzodiazepine or pain medication today. Objective - Vital Signs Vital signs: Vital Signs Temp 98.7 F 11/30/16 22:53 Pulse 97 11/30/16 22:53 Resp 18 11/30/16 22:53 BP 135/63 11/30/16 22:53 Pulse Ox 95 11/30/16 22:53 Intake & Output 11/30/16 11/30/16 12/01/16 06:59 18:59 06:59 Weight 87 kg Other: Voiding Method Diaper Diaper Incontinent Incontinent # Voids 3 1 1 - Constitutional General appearance: Present: obese - EENT Eyes: Absent: abnormal pupil - Respiratory Respiratory: bilateral: diminished - Cardiovascular Rhythm: regular Heart sounds: normal: S1, S2 - Gastrointestinal General gastrointestinal: Present: soft. Absent: tenderness - Musculoskeletal Musculoskeletal: Present: generalized weakness - Labs CBC & Chem 7: 11/30/16 09:24 11/30/16 09:24 Labs: Abnormal Lab Results - Last 24 Hours (Table) 11/30/16 11/30/16 11/30/16 Range/Units 08:13 09:24 09:24 RBC 2.94 L (3.80-5.40) m/uL Hgb 8.8 L (11.4-16.0) gm/dL Hct 28.5 L (34.0-46.0) % RDW 19.8 H (11.5-15.5) % Sodium 150 H (137-145) mmol/L Chloride 117 H (98-107) mmol/L Carbon Dioxide 20 L (22-30) mmol/L BUN 38 H (7-17) mg/dL Creatinine 1.48 H (0.52-1.04) mg/dL Glucose 200 H (74-99) mg/dL POC Glucose (mg/dL) 146 H (75-99) mg/dL Alkaline Phosphatase 149 H (38-126) U/L Albumin 2.7 L (3.5-5.0) g/dL 11/30/16 11/30/16 11/30/16 Range/Units 11:36 16:40 21:35 RBC (3.80-5.40) m/uL Hgb (11.4-16.0) gm/dL Hct (34.0-46.0) % RDW (11.5-15.5) % Sodium (137-145) mmol/L Chloride (98-107) mmol/L Carbon Dioxide (22-30) mmol/L BUN (7-17) mg/dL Creatinine (0.52-1.04) mg/dL Glucose (74-99) mg/dL POC Glucose (mg/dL) 218 H 156 H 141 H (75-99) mg/dL Alkaline Phosphatase (38-126) U/L Albumin (3.5-5.0) g/dL Assessment and Plan (1) Acute renal failure (ARF) Status: Acute (2) Cellulitis of leg Status: Acute (3) Fall Status: Acute (4) Urinary tract disease Status: Acute Plan: Continue antibiotic treatment. Withhold any type of opiate or mind altering medications this time. Appreciate surgical input for bleeding control. Prognosis is guarded. Otherwise, discharge planning for probable ECF Time with Patient: Less than 30
[2016-12-01 06:49] LABS: Glucose,Whole Blood 172 mg/dL (75-99)
[2016-12-01] MEDS: OLANZapine 2.5 MG TAB PO SCH ×2 (08:22→20:49)
[2016-12-01] MEDS: ALLOPURINOL 100 MG TAB PO SCH ×2 (08:22→20:49)
[2016-12-01] MEDS: INSULIN LISPRO (humaLOG) 300 UNIT/3 ML VIAL SQ SCH ×3 (08:22→17:59)
[2016-12-01] MEDS: tiZANidine 4 MG TAB PO SCH (08:23)
[2016-12-01] MEDS: FAMOTIDINE 20 MG TAB PO SCH (08:23)
[2016-12-01] MEDS: PANTOPRAZOLE 40 MG TABLET PO SCH (08:23)
[2016-12-01] MEDS: ENOXAPARIN 40 MG/0.4 ML SYRINGE SQ SCH (08:23)
[2016-12-01] MEDS: metFORMIN 500 MG TAB PO SCH ×2 (08:24→20:49)
[2016-12-01] MEDS: DULoxetine HCL 30 MG CAPSULE.DR PO SCH (08:24)
[2016-12-01] MEDS: SODIUM CHLORIDE 0.45% 1,000 ML IV SCH (08:25)
[2016-12-01] MEDS: SENNOSIDES 8.6 MG TAB PO SCH (08:29)
[2016-12-01] MEDS: PREGABALIN 75 MG CAP PO SCH ×2 (08:29→20:51)
[2016-12-01 09:43] LABS: Anisocytosis Slight; CH 30.2; CHCM 31.4; HGB 9.1 gm/dL (11.4-16.0); Hypochromasia Slight; MCH 29.4 pg (25.0-35.0); MCHC 30.4 g/dL (31.0-37.0); MCV 96.8 fL (80.0-100.0); Macrocytosis Slight; Mean Platelet Volume 6.7; RDW 19.6 % (11.5-15.5); WBC 6.8 k/uL (3.8-10.6)
[2016-12-01 09:50] LABS: Glucose,Whole Blood 203 mg/dL (75-99)
[2016-12-01 10:11] LABS: Calcium 8.7 mg/dL (8.4-10.2); Potassium 3.3 mmol/L (3.5-5.1); Total Bilirubin 0.4 mg/dL (0.2-1.3); Total Protein 6.7 g/dL (6.3-8.2)
[2016-12-01 11:25] LABS: Glucose,Whole Blood 172 mg/dL (75-99)
[2016-12-01] MEDS: VITAMIN E (DL,TOCOPHERYL ACET) 400 UNIT CAP PO SCH (12:04)
[2016-12-01] MEDS: CALCIUM CARB-VIT D 500MG-200UN 1 EACH TAB PO SCH (12:04)
[2016-12-01] MEDS: ASCORBIC ACID 500 MG TAB PO SCH (12:04)
[2016-12-01] MEDS: FERROUS SULFATE 325 MG TAB PO SCH (12:04)
[2016-12-01] MEDS: LEVOFLOXACIN 250 MG TAB PO SCH (13:16)
[2016-12-01] MEDS: MULTIVITAMINS, THERA 1 EACH TAB PO SCH (14:05)
[2016-12-01] MEDS: CHOLECALCIFEROL 1,000 UNIT TAB PO SCH (14:05)
--- NOTE | 2016-12-01 15:16 | PN ---
Patient is being seen for followup for acute kidney injury. Her renal function has improved. She is maintained on gentle IV hydration. Creatinine is down to 1.3 from 2.78 mg/dL on initial admission. Patient has not been eating much. There is consideration for placement at the time of discharge. On examination, blood pressure is 183/82, prior blood pressure 135/63. She has not been high before. Heart rate is 90 per minute. She is afebrile. Examination of the heart S1 and S2. Examination of the lungs bilateral breath sounds are heard. Abdomen is soft, nontender. Examination of the lower extremities shows chronic skin changes, trace edema noted bilaterally. ( ) is moving all 4 extremities, but she is lethargic and sleepy. LABS: Sodium 146, potassium 3.3, BUN 30, creatinine 1.3. Hemoglobin 9.1 g/dL. ASSESSMENT: 1. Acute kidney injury, prerenal, currently improved. Patient is maintained on ( ) hydration and patient is encouraged to continue to maintain good oral intake. I held her Lasix yesterday. We can discontinue the IV fluids tomorrow. 2. Generalized debility. 3. Possibility of urinary tract infection. Urine culture did not reveal any significant growth. Patient has been started on antibiotics. 4. Chronic kidney disease stage III with previous creatinine about 1.1, most likely secondary to diabetic nephropathy and nephrosclerosis. PLAN: DC saline tomorrow, continue to encourage increased oral intake.
[2016-12-01 17:09] LABS: Glucose,Whole Blood 170 mg/dL (75-99)
[2016-12-01] MEDS: ATORVASTATIN 40 MG TAB PO SCH (20:49)
[2016-12-01 21:08] LABS: Glucose,Whole Blood 161 mg/dL (75-99)
[2016-12-02] MEDS: SODIUM CHLORIDE 0.45% 1,000 ML IV SCH ×2 (03:37→21:49)
[2016-12-02] MEDS: PREGABALIN 75 MG CAP PO SCH ×2 (07:55→21:49)
[2016-12-02] MEDS: SENNOSIDES 8.6 MG TAB PO SCH (07:55)
[2016-12-02] MEDS: tiZANidine 4 MG TAB PO SCH (07:55)
[2016-12-02] MEDS: ENOXAPARIN 40 MG/0.4 ML SYRINGE SQ SCH (07:56)
[2016-12-02] MEDS: PANTOPRAZOLE 40 MG TABLET PO SCH (07:56)
[2016-12-02] MEDS: metFORMIN 500 MG TAB PO SCH ×2 (07:56→21:47)
[2016-12-02] MEDS: ALLOPURINOL 100 MG TAB PO SCH ×2 (07:56→21:46)
[2016-12-02] MEDS: DULoxetine HCL 30 MG CAPSULE.DR PO SCH (07:56)
[2016-12-02] MEDS: OLANZapine 2.5 MG TAB PO SCH ×2 (07:56→21:47)
[2016-12-02] MEDS: FAMOTIDINE 20 MG TAB PO SCH (07:56)
[2016-12-02 08:03] LABS: Glucose,Whole Blood 158 mg/dL (75-99)
--- NOTE | 2016-12-02 08:42 | P.PN ---
Subjective Principal diagnosis: Continuing care-lethargy. This is a continue progress on a 66-year-old white female admitted for renal failure with an underlying history of morbid obesity, generalized weakness and element of diabetes. She has also history of chronic left lower extremity DVT with [place] filter. The patient is agreeable not to ECF placement secondary to overall generalized weakness. No new voiding difficulties. Objective - Vital Signs Vital signs: Vital Signs Temp 98.2 F 12/02/16 07:00 Pulse 80 12/02/16 07:00 Resp 16 12/02/16 07:00 BP 115/65 12/02/16 07:00 Pulse Ox 92 L 12/02/16 07:00 Intake & Output 12/01/16 12/02/16 12/02/16 18:59 06:59 18:59 Intake Total 300 300 Balance 300 300 Intake: Oral 300 300 Other: Voiding Method Diaper Diaper Diaper Incontinent Incontinent Incontinent # Voids 1 2 # Bowel Movements 1 1 - Constitutional General appearance: Present: obese - EENT Eyes: Absent: abnormal pupil - Respiratory Respiratory: bilateral: CTA - Cardiovascular Rhythm: regular Heart sounds: normal: S1, S2 - Integumentary Integumentary Comment(s): Lower extremity cellulitis. - Neurologic Neurologic: Present: CNII-XII intact - Musculoskeletal Musculoskeletal: Present: generalized weakness - Labs CBC & Chem 7: 12/01/16 08:14 12/01/16 08:14 Labs: Abnormal Lab Results - Last 24 Hours (Table) 12/01/16 12/01/16 12/01/16 Range/Units 08:14 08:14 09:49 RBC 3.10 L (3.80-5.40) m/uL Hgb 9.1 L (11.4-16.0) gm/dL Hct 30.0 L (34.0-46.0) % MCHC 30.4 L (31.0-37.0) g/dL RDW 19.6 H (11.5-15.5) % Sodium 146 H (137-145) mmol/L Potassium 3.3 L (3.5-5.1) mmol/L Chloride 114 H (98-107) mmol/L Carbon Dioxide 21 L (22-30) mmol/L BUN 30 H (7-17) mg/dL Creatinine 1.30 H (0.52-1.04) mg/dL Glucose 157 H (74-99) mg/dL POC Glucose (mg/dL) 203 H (75-99) mg/dL Alkaline Phosphatase 153 H (38-126) U/L Albumin 2.8 L (3.5-5.0) g/dL 12/01/16 12/01/16 12/01/16 Range/Units 11:23 17:07 20:38 RBC (3.80-5.40) m/uL Hgb (11.4-16.0) gm/dL Hct (34.0-46.0) % MCHC (31.0-37.0) g/dL RDW (11.5-15.5) % Sodium (137-145) mmol/L Potassium (3.5-5.1) mmol/L Chloride (98-107) mmol/L Carbon Dioxide (22-30) mmol/L BUN (7-17) mg/dL Creatinine (0.52-1.04) mg/dL Glucose (74-99) mg/dL POC Glucose (mg/dL) 172 H 170 H 161 H (75-99) mg/dL Alkaline Phosphatase (38-126) U/L Albumin (3.5-5.0) g/dL 12/02/16 Range/Units 08:02 RBC (3.80-5.40) m/uL Hgb (11.4-16.0) gm/dL Hct (34.0-46.0) % MCHC (31.0-37.0) g/dL RDW (11.5-15.5) % Sodium (137-145) mmol/L Potassium (3.5-5.1) mmol/L Chloride (98-107) mmol/L Carbon Dioxide (22-30) mmol/L BUN (7-17) mg/dL Creatinine (0.52-1.04) mg/dL Glucose (74-99) mg/dL POC Glucose (mg/dL) 158 H (75-99) mg/dL Alkaline Phosphatase (38-126) U/L Albumin (3.5-5.0) g/dL Assessment and Plan (1) Acute renal failure (ARF) Status: Acute (2) Cellulitis of leg Status: Acute (3) Fall Status: Acute (4) Urinary tract disease Status: Acute (5) Generalized weakness Status: Acute Plan: We'll continue current regimen of antibiotic treatment. Appreciate wound care management with nephrology input. Hopefully we can anticipate discharge to ECF in a.m. Check CBC and CMP in a.m. Time with Patient: Less than 30
[2016-12-02] MEDS: VITAMIN E (DL,TOCOPHERYL ACET) 400 UNIT CAP PO SCH (11:03)
[2016-12-02] MEDS: MULTIVITAMINS, THERA 1 EACH TAB PO SCH (11:03)
[2016-12-02] MEDS: CALCIUM CARB-VIT D 500MG-200UN 1 EACH TAB PO SCH (11:03)
[2016-12-02] MEDS: FERROUS SULFATE 325 MG TAB PO SCH (11:03)
[2016-12-02] MEDS: CHOLECALCIFEROL 1,000 UNIT TAB PO SCH (11:03)
[2016-12-02] MEDS: ASCORBIC ACID 500 MG TAB PO SCH (11:03)
[2016-12-02 11:56] LABS: Glucose,Whole Blood 155 mg/dL (75-99)
--- NOTE | 2016-12-02 12:26 | P.PN ---
Subjective Patient is seen in follow-up for acute kidney injury. Patient has chronic kidney disease stage III with baseline creatinine near 1.1 secondary to diabetic kidney disease and nephrosclerosis. Her creatinine was 2.7 this admission and was down to 1.3 as of yesterday. She is currently on half-normal saline at 50 mL an hour. She is eating and drinking well. Admits to good urine output. Denies chest pain or shortness of breath. Vital signs are stable. General: The patient appeared well nourished and normally developed. HEENT: Head exam is unremarkable. Neck is without jugular venous distension. LUNGS: Lungs are clear to auscultation and percussion. Breath sounds decreased. HEART: Rate and Rhythm are regular. First and second heart sounds normal. No murmurs, rubs or gallops. ABDOMEN: Abdominal exam reveals normal bowel sounds. Non-tender and non- distended. No evidence of peritonitis. EXTREMITITES: No clubbing, cyanosis, or edema. Objective - Vital Signs Vital signs: Vital Signs Temp 98.2 F 12/02/16 07:00 Pulse 80 12/02/16 07:00 Resp 16 12/02/16 07:00 BP 115/65 12/02/16 07:00 Pulse Ox 92 L 12/02/16 07:00 Intake & Output 12/01/16 12/02/16 12/02/16 18:59 06:59 18:59 Intake Total 300 300 Balance 300 300 Intake: Oral 300 300 Other: Voiding Method Diaper Diaper Diaper Incontinent Incontinent Incontinent # Voids 1 2 # Bowel Movements 1 1 - Labs CBC & Chem 7: 12/01/16 08:14 12/01/16 08:14 Labs: Abnormal Lab Results - Last 24 Hours (Table) 12/01/16 12/01/16 12/02/16 Range/Units 17:07 20:38 08:02 POC Glucose (mg/dL) 170 H 161 H 158 H (75-99) mg/dL 12/02/16 Range/Units 11:48 POC Glucose (mg/dL) 155 H (75-99) mg/dL Assessment and Plan Plan: Assessment: #1. Nonoliguric acute kidney injury mostly prerenal in nature. Improved. Creatinine down to 1.3 as of yesterday. #2. Chronic kidney disease stage III with baseline creatinine near 1.1 secondary to diabetic kidney disease and nephrosclerosis. #3. Hypernatremia secondary to lack of oral water intake. Sodium level was down to 146 as of yesterday. #4. Hypokalemia secondary to recovering renal function with renal potassium wasting. Potassium level was 3.3 as of yesterday. #5. Pyuria. Urine culture negative. Plan: Hep-Lock IV fluids. Encourage oral intake. Avoid nephrotoxic agents and hypotensive episodes. Repeat electrolytes in the morning. Continue to hold diuretics for now.
[2016-12-02] MEDS: LEVOFLOXACIN 250 MG TAB PO SCH (15:26)
[2016-12-02 17:22] LABS: Glucose,Whole Blood 125 mg/dL (75-99)
[2016-12-02 21:25] LABS: Glucose,Whole Blood 139 mg/dL (75-99)
[2016-12-02] MEDS: ATORVASTATIN 40 MG TAB PO SCH (21:46)
[2016-12-03 07:41] LABS: Glucose,Whole Blood 143 mg/dL (75-99)
[2016-12-03 07:56] VITALS: BP 134/75; PULSE 81; RESP 18; TEMP 97.8
[2016-12-03] MEDS: tiZANidine 4 MG TAB PO SCH (08:10)
[2016-12-03] MEDS: DULoxetine HCL 30 MG CAPSULE.DR PO SCH (08:10)
[2016-12-03] MEDS: ENOXAPARIN 40 MG/0.4 ML SYRINGE SQ SCH (08:10)
[2016-12-03] MEDS: FAMOTIDINE 20 MG TAB PO SCH (08:10)
[2016-12-03] MEDS: SENNOSIDES 8.6 MG TAB PO SCH (08:10)
[2016-12-03] MEDS: ALLOPURINOL 100 MG TAB PO SCH (08:10)
[2016-12-03] MEDS: metFORMIN 500 MG TAB PO SCH (08:10)
[2016-12-03] MEDS: PANTOPRAZOLE 40 MG TABLET PO SCH (08:10)
[2016-12-03] MEDS: OLANZapine 2.5 MG TAB PO SCH (08:10)
[2016-12-03] MEDS: PREGABALIN 75 MG CAP PO SCH (08:10)
[2016-12-03] MEDS: VITAMIN E (DL,TOCOPHERYL ACET) 400 UNIT CAP PO SCH (11:02)
[2016-12-03] MEDS: MULTIVITAMINS, THERA 1 EACH TAB PO SCH (11:02)
[2016-12-03] MEDS: ASCORBIC ACID 500 MG TAB PO SCH (11:02)
[2016-12-03] MEDS: CALCIUM CARB-VIT D 500MG-200UN 1 EACH TAB PO SCH (11:02)
[2016-12-03] MEDS: FERROUS SULFATE 325 MG TAB PO SCH (11:02)
[2016-12-03] MEDS: CHOLECALCIFEROL 1,000 UNIT TAB PO SCH (11:02)
[2016-12-03 12:31] LABS: Glucose,Whole Blood 145 mg/dL (75-99)
--- NOTE | 2016-12-03 12:52 | P.DS ---
Providers Date of admission: 11/28/16 19:16 Attending physician: Willis Gurrola Consults: 11/30/16 12:51 Consult Physician Routine Consulting Provider: Joe Perez Consult Reason/Comments: your patient, wound care orders Do you want consulting provider notified?: Yes Primary care physician: Willis Gurrola - Discharge Diagnosis(es) (1) Acute renal failure (ARF) Current Visit: Yes Status: Acute (2) Cellulitis of leg Current Visit: No Status: Acute (3) Fall Current Visit: No Status: Acute (4) Urinary tract disease Current Visit: No Status: Acute (5) Generalized weakness Current Visit: Yes Status: Acute Hospital Course: This is a discharge summary 66-year-old white female essentially admitted for multiple falls and weakness. Also stage III renal failure was addressed. The patient was treated appropriately for medical perspective. The patient is significantly weak and is agreeable to go to ECF secondary to weakness. I am worried that she is now not able to return "to home." The patient does understand that this could be a possible scenario. She is tolerating diet although weak. No new voiding difficulties. No significant nausea or vomiting. She hasn't underlying history of chronic left lower extremity DVT cellulitis which waxes and wanes. However, her overall prognosis is guarded secondary to multiple comorbidities but she is discharged in fair condition. Patient Condition at Discharge: Fair Plan - Discharge Summary New Discharge Prescriptions: Morphine Sulfate ER [Ms Contin] 30 mg PO Q12HR #60 tablet Discharge Medication List Atorvastatin [Lipitor] 40 mg PO HS 08/30/15 [History] Sennosides [Senokot] 8.6 mg PO DAILY PRN 08/30/15 [History] Biotin 5 mg PO DAILY 08/31/15 [History] Potassium Chloride [Klor-Con 20] 20 meq PO DAILY #30 tab 03/06/16 [Rx] Allopurinol [Zyloprim] 100 mg PO BID 05/21/16 [History] Calcium Carbonate [Tums] 500 mg PO DAILY PRN 05/21/16 [History] Calcium Carbonate/Vitamin D3 [Calcium 600-Vit D3 400 Caplet] 1 tab PO DAILY [History] Furosemide [Lasix] 80 mg PO QAM 05/21/16 [History] Pregabalin [Lyrica] 150 mg PO BID 05/21/16 [History] metFORMIN HCL 1,000 mg PO BID 05/21/16 [History] Ascorbic Acid [Vitamin C] 500 mg PO DAILY 06/29/16 [History] Bisacodyl 5 mg PO DAILY PRN 06/29/16 [History] Cholecalciferol [Vitamin D3] 2,000 unit PO DAILY 06/29/16 [History] Ferrous Sulfate [Iron (65 MG Elemental)] 650 mg PO DAILY 06/29/16 [History] Magnesium Hydroxide [Milk of Magnesia] 2,400 mg PO DAILY PRN 06/29/16 [History] Multivit with Calcium,Iron,Min [Women's Multivitamin] 1 tab PO DAILY 06/29/16 [ History] Polyethylene Glycol 3350 [Miralax] 17 gm PO DAILY 06/29/16 [History] Vitamin E (Dl,Tocopheryl Acet) [Vitamin E] 400 unit PO DAILY 06/29/16 [History] tiZANidine [Zanaflex] 4 mg PO DAILY 06/29/16 [History] DULoxetine HCL [Cymbalta] 90 mg PO DAILY capsule. 08/25/16 [Rx] Acetaminophen [Tylenol] 325 mg PO Q4H PRN 10/27/16 [History] Ranitidine HCl 150 mg PO BID 10/27/16 [History] INSULIN LISPRO (humaLOG) [humaLOG (formulary)] 3 unit SQ QID 11/28/16 [History] rOPINIRole HCL [Requip] 0.25 mg PO HS 11/29/16 [History] Levofloxacin [Levaquin] 250 mg PO DAILY@1600 tab 12/03/16 [Rx] Morphine Sulfate ER [Ms Contin] 30 mg PO Q12HR #60 tablet 12/03/16 [Rx] Follow up Appointment(s)/Referral(s): Willis Gurrola MD [Primary Care Provider] - 2 Weeks Discharge Disposition: TRANSFER TO SNF/ECF
[2016-12-03] MEDS: LEVOFLOXACIN 250 MG TAB PO SCH (15:48)
== END 2016-12-03 17:13 | DRG 683 ==
LOC: EC 16:41 → 4MS4W 19:16
PROVIDERS: ADMIT Family Medicine; ATTEND Family Medicine
DX: N17.0 Acute kidney failure with tubular necrosis (principal); L03.116 Cellulitis of left lower limb; E87.0 Hyperosmolality and hypernatremia; E11.42 Type 2 diabetes mellitus with diabetic polyneuropathy; E11.21 Type 2 diabetes mellitus with diabetic nephropathy; I82.502 Chronic embolism and thrombosis of unspecified deep veins of left lower extremity; N39.0 Urinary tract infection, site not specified; E11.22 Type 2 diabetes mellitus with diabetic chronic kidney disease; N18.3 Chronic kidney disease, stage 3 (moderate); I12.9 Hypertensive chronic kidney disease with stage 1 through stage 4 chronic kidney disease, or unspecified chronic kidney disease; E86.1 Hypovolemia; D64.9 Anemia, unspecified; E87.6 Hypokalemia; G47.33 Obstructive sleep apnea (adult) (pediatric); M79.7 Fibromyalgia; R29.6 Repeated falls; G43.909 Migraine, unspecified, not intractable, without status migrainosus; F32.9 Major depressive disorder, single episode, unspecified; F41.9 Anxiety disorder, unspecified; E66.9 Obesity, unspecified; E78.00 Pure hypercholesterolemia, unspecified; G89.29 Other chronic pain; M54.9 Dorsalgia, unspecified; Z68.32 Body mass index [BMI] 32.0-32.9, adult; Z88.1 Allergy status to other antibiotic agents; Z91.040 Latex allergy status; Z91.010 Allergy to peanuts; Z88.0 Allergy status to penicillin; Z88.7 Allergy status to serum and vaccine; Z91.048 Other nonmedicinal substance allergy status; Z91.81 History of falling; Z87.440 Personal history of urinary (tract) infections; Z86.14 Personal history of Methicillin resistant Staphylococcus aureus infection; Z90.49 Acquired absence of other specified parts of digestive tract; Z98.84 Bariatric surgery status; Z95.9 Presence of cardiac and vascular implant and graft, unspecified; Z96.652 Presence of left artificial knee joint; Z96.641 Presence of right artificial hip joint; Z87.891 Personal history of nicotine dependence; Z99.3 Dependence on wheelchair; Z79.4 Long term (current) use of insulin; Z79.84 Long term (current) use of oral hypoglycemic drugs; Z79.899 Other long term (current) drug therapy
CPT/HCPCS: 36415; 71020; 80053; 81001; 82550; 82553; 83036; 83735; 84100; 84484; 85025; 85027; 85610; 85730; 87086; 93005; 96360; 96361; 99285

== ENCOUNTER 2017-02-20 20:48 | Inpatient (IN) | payer MEDICARE, OTHER ==
[2017-02-20] MEDS ORDERED: IV VANCOMYCIN PER PHARMACY 1 EACH MISC MISCELLANE PRN (21:04)
[2017-02-20] MEDS ORDERED: LEVOFLOXACIN 750MG-D5W PMX 750 MG in DEXTROSE/WATER 1 150ML.BAG IVPB STA (21:04)
[2017-02-20] MEDS ORDERED: NOREPINEPHRIN 4 MG-0.9% NS PMX 4 MG/250 ML ML IV SCH (21:15)
[2017-02-20] MEDS ORDERED: VANCOMYCIN 1,500 MG in SODIUM CHLORIDE 0.9% 250 ML IVPB ONE (21:30)
[2017-02-20 21:38] LABS: Anisocytosis Slight; CH 29.3; CHCM 31.2; HCT 24.4 % (34.0-46.0); HDW 2.68; HGB 7.6 gm/dL (11.4-16.0); Hypochromasia Slight; Immature Gran Flag Slight; MCH 29.5 pg (25.0-35.0); MCHC 31.2 g/dL (31.0-37.0); MCV 94.3 fL (80.0-100.0); Mean Platelet Volume 8.6; RBC 2.58 m/uL (3.80-5.40); RDW 17.2 % (11.5-15.5); WBC 7.6 k/uL (3.8-10.6); WBC (Perox) 8.16
[2017-02-20 21:40] LABS: Appearance,Urine Cloudy (Clear); Bacteria,Urine Moderate /hpf; Bilirubin,Urine Negative (Negative); Glucose,Urine (UA) Negative (Negative); Ketones,Urine Negative (Negative); Leukocyte Esterase,Urine Large (Negative); Mucus,Urine Rare /hpf; Nitrite,Urine Negative (Negative); PH, Urine 5.5 (5.0-8.0); Particle Count 7856; Protein,Urine 1+ (Negative); RBC,Urine 8 /hpf (0-5); Specific Gravity,Urine 1.012 (1.001-1.035); Squamous Epithelial Cell,Urine 1 /hpf (0-4); UA Billing (MACRO vs. MICRO) MICRO; Urobilinogen,Urine <2.0 mg/dL (<2.0); WBC,Urine >182 /hpf (0-5)
[2017-02-20 21:42] LABS: INR 1.3 (<1.2); Prothrombin Time 12.4 sec (9.0-12.0)
[2017-02-20 21:44] LABS: Calcium 7.9 mg/dL (8.4-10.2); Potassium 4.8 mmol/L (3.5-5.1); Total Bilirubin 0.5 mg/dL (0.2-1.3)
[2017-02-20 22:07] LABS: ABG PCO2 34 mmHg (35-45); ABG PH 7.35 (7.35-7.45)
--- NOTE | 2017-02-20 22:07 | XR ---
EXAMINATION TYPE: XR chest 1V portable DATE OF EXAM: 02/20/2017 Comparison: Outside exam same day Clinical History: 66-year-old female with fever Findings: ET tube is very low in position, 8 mm are closer to the evangelina. This can be withdrawn by 1.5 cm and r eassessed at follow-up. Leftward patient rotation altered normal cardiac and mediastinal contours. Right subclavian CVC tip i n the right atrium. There is small left pleural effusion with patchy bibasilar airspace disease. Impression: 1. ET tube tip low in position, 8 mm or closer to the evangelina. This can be withdrawn by 1.5 cm and eliza ssessed at follow-up. 2. Right subclavian CVC tip in the lower right atrium. 3. Small left effusion with mid and lower lung airspace disease.
[2017-02-20 22:08] LABS: ABG Base Excess -6.3 mmol/L; ABG HCO3 18 mmol/L (21-25); ABG Oxygen Saturation 99.6 % (94-97); ABG PO2 192 mmHg (83-108); ABG TCO2 19 mmol/L (19-24)
[2017-02-20 22:12] LABS: Add Differential Manual Differential
[2017-02-20] MEDS ORDERED: MIDAZOLAM HCL 100 MG in SODIUM CHLORIDE 0.9% 80 ML IV ONE (22:16)
[2017-02-20 22:17] LABS: Manual Review Performed; Nucleated Red Blood Cells 0 /100 WBC (0-0); Total Cells Counted 200
[2017-02-20] MEDS ORDERED: ARTIFICIAL TEARS OINTMENT 3.5 GM TUBE BOTH EYES PRN (22:59)
[2017-02-20] MEDS ORDERED: NALOXONE 0.4 MG/ML 1 ML VIAL IV PRN (22:59)
--- NOTE | 2017-02-20 23:14 | ED ---
General Adult HPI - General Chief complaint: Recheck/Abnormal Lab/Rx Stated complaint: BRENTON Time Seen by Provider: 02/20/17 20:54 Source: EMS, RN notes reviewed, old records reviewed Mode of arrival: EMS - History of Present Illness Initial comments: 66-year-old female presenting as a transfer from outside hospital. Unknown baseline mental status, presented in extremis according to the medical record patient was hypoxic, pulse ox is 75, bradycardic in the 50s, hernandez and cyanotic. Patient was intubated at outside emergency department. She was transferred for ICU care. Patient was found to have acute kidney injury with a creatinine of 3.4, lactic acidosis 5.5, she did have CT evidence of bilateral pneumonia, as well as urinary tract infection. She does have a history of MRSA infection of the left leg. No other history is known about the patient. No family members available. The medical record does indicate that the patient has baseline encephalopathy. - Related Data Home Medications Medication Instructions Recorded Confirmed Atorvastatin [Lipitor] 40 mg PO HS 08/30/15 02/20/17 Allopurinol [Zyloprim] 100 mg PO BID 05/21/16 02/20/17 Calcium Carbonate/Vitamin D3 1 tab PO DAILY 05/21/16 02/20/17 [Calcium 600-Vit D3 400 Caplet] Furosemide [Lasix] 80 mg PO QAM 05/21/16 02/20/17 metFORMIN HCL 1,000 mg PO BID 05/21/16 02/20/17 Cholecalciferol [Vitamin D3] 1,000 unit PO DAILY 06/29/16 02/20/17 Ferrous Sulfate [Iron (65 MG 650 mg PO DAILY 06/29/16 02/20/17 Elemental)] Magnesium Hydroxide [Milk of 2,400 mg PO DAILY PRN 06/29/16 02/20/17 Magnesia] Polyethylene Glycol 3350 [Miralax] 17 gm PO DAILY 06/29/16 02/20/17 Acetaminophen [Tylenol] 650 mg PO Q4H PRN 10/27/16 02/20/17 INSULIN LISPRO (humaLOG) [humaLOG See Protocol SQ QID 11/28/16 02/20/17 (formulary)] rOPINIRole HCL [Requip] 0.25 mg PO HS 11/29/16 02/20/17 Ranitidine HCl [Zantac] 150 mg PO HS 01/12/17 02/20/17 Bisacodyl [Dulcolax] 10 mg PO DAILY PRN 01/26/17 02/20/17 Sulfamethox-Tmp 800-160Mg [Bactrim 1 tab PO BID 02/16/17 02/20/17 DS 800-160 mg] Bisacodyl [Dulcolax] 10 mg RECTAL DAILY PRN 02/20/17 02/20/17 Cranberry Fruit Concentrate 900 mg PO DAILY 02/20/17 02/20/17 [Cranberry] DULoxetine HCL [Cymbalta] 60 mg PO DAILY 02/20/17 02/20/17 L.acidoph,Paracasei, B.lactis 2 cap PO DAILY 02/20/17 02/20/17 [Probiotic] Multivitamins, Thera [Multivitamin 1 tab PO DAILY 02/20/17 02/20/17 (formulary)] Na Phos,M-B/Na Phos,Di-Ba [Fleet 133 ml RECTAL DAILY PRN 02/20/17 02/20/17 Adult] Sennosides-Docusate Sodium 1 tab PO DAILY 02/20/17 02/20/17 [Senokot-S] tiZANidine HCL 4 mg PO DAILY 02/20/17 02/20/17 Previous Rx's Medication Instructions Recorded Potassium Chloride [Klor-Con 20] 20 meq PO DAILY #30 tab 03/06/16 Morphine Sulfate ER [Ms Contin] 30 mg PO Q12HR #60 tablet 12/03/16 Pregabalin [Lyrica] 150 mg PO BID #60 capsule 12/03/16 Allergies Allergy/AdvReac Type Severity Reaction Status Date / Time adhesive tape Allergy Severe Rash/Hives Verified 02/16/17 11:34 cephalexin monohydrate Allergy Severe Rash/Hives Verified 02/16/17 11:34 [From Keflex] influenza virus vaccine, Allergy Severe Anaphylaxis Verified 02/16/17 11:34 specific [influenza virus vacc,specific] latex Allergy Severe Rash/Hives Verified 02/16/17 11:34 peanut Allergy Severe Anaphylaxis Verified 02/16/17 11:34 Penicillins Allergy Severe Swelling Verified 02/16/17 11:34 tetanus toxoid, adsorbed Allergy Intermediate Rash/Hives Verified 02/16/17 11:34 Review of Systems ROS Statement: Those systems with pertinent positive or pertinent negative responses have been documented in the HPI. ROS Other: All systems not noted in ROS Statement are negative. Past Medical History Past Medical History: Diabetes Mellitus, Deep Vein Thrombosis (DVT), Fibromyalgia, GI Bleed, Hypertension, Skin Disorder, Sleep Apnea/CPAP/BIPAP Additional Past Medical History / Comment(s): Pt recently fell (April 2016) and had L eye contusion/L lower leg laceration-surgically repaired/DVT L lower leg and acute blood loss anemia. Other HX: IDDM type II, DVT L leg, bilateral lower leg cellulitis with L lower leg cellulitis. rt heel pressure ulcer-SINCE HEALED, peripheral neuropathy bilateral hands and feet, falls, chronic UTI'S, bilateral tinnitis, hemorrhoids, migraines, obesity, high cholesterol, chronic back pain, eczema, sinus problems, sleep apnea no CPAP, stomach ulcers, lower GI bleed. 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 Past Anesthesia/Blood Transfusion Reactions: No Reported Reaction Additional Past Anesthesia/Blood Transfusion Reaction / Comment(s): pt has received blood in the past without reaction. Additional Psychological History / Comment(s): Pt lives with a roomate. She is wheelchair bound. She has an aide coming 3 times a week for bathing. She manages her own medication. Goes to wound care center every tuesday. She does not drive any longer. She gets to [facility] by bus. Additional Past Alcohol Use History / Comment(s): She has history of smoking 2 packs per day for 27 years and quit in 1993. She drinks alcohol rarely. 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 pt stated SHE HAS HOME CARE WITH VISITNG NURSES. uses a w/c Additional Drug Use History / Comment(s): pt admits to marujuana use when she is in a lot of pain. - Past Family History Father Family Medical History: Myocardial Infarction ([place]) Additional Family Medical History / Comment(s): AT AGE 46-CO Mother Family Medical History: Diabetes Mellitus Additional Family Medical History / Comment(s): AT AGE 66 FROM COMPLICATIONS FROM DM Sister(s) Family Medical History: Diabetes Mellitus Brother(s) Family Medical History: Diabetes Mellitus Daughter(s) Family Medical History: Cancer Son(s) Family Medical History: No Reported History General Exam General appearance: obtunded, obese Head exam: Present: atraumatic, normocephalic Eye exam: Present: normal appearance, other (3 mm and sluggish bilaterally) ENT exam: Present: normal exam, mucous membranes moist Neck exam: Present: normal inspection Respiratory exam: Present: rhonchi (Likely transmitted upper airway sounds.), decreased breath sounds, other (Mechanical ventilation) Cardiovascular Exam: Present: normal rhythm, tachycardia GI/Abdominal exam: Present: soft. Absent: distended, tenderness Extremities exam: Present: normal capillary refill, pedal edema Neurological exam: Present: other (Patient was paralyzed with rocuronium, currently on Versed drip, neurological examination impossible at this time) Psychiatric exam: Present: other (Intubated and sedated) Skin exam: Present: warm. Absent: cyanosis, diaphoretic Course Vital Signs 02/20/17 02/20/17 02/20/17 21:06 21:25 21:32 Temperature Pulse Rate 109 H 91 108 H Respiratory 16 14 14 Rate Blood Pressure 67/40 70/42 70/48 O2 Sat by Pulse 100 100 100 Oximetry 02/20/17 02/20/17 02/20/17 21:44 21:50 21:55 Temperature Pulse Rate 120 H 119 H 114 H Respiratory 14 14 14 Rate Blood Pressure 151/69 143/55 112/57 O2 Sat by Pulse 100 100 100 Oximetry 02/20/17 02/20/1717 22:04 22:13 22:25 Temperature 98.8 F Pulse Rate 109 H 112 H 112 H Respiratory 14 14 14 Rate Blood Pressure 88/52 116/56 116/57 O2 Sat by Pulse 100 100 100 Oximetry 02/20/17 22:35 Temperature Pulse Rate 114 H Respiratory 14 Rate Blood Pressure 116/58 O2 Sat by Pulse 100 Oximetry - Reevaluation(s) Reevaluation #1: 02/20/17 23:13 While in the emergency department, patient does computer dose of antibiotics she was sent with from outside facility. Central line is placed for administration of pressors. Patient's blood pressure stabilizes on low-dose norepinephrine. Chest x-ray confirms ET tube placement as well as central line placement EKG Findings - EKG Comments: EKG Findings:: EKG shows sinus tachycardia ventricular rate of 104, KS interval 208, QRS duration 70, QTC 447 Procedures - Central Line Placement Right SC Consent Obtained: emergent situation Time Out Performed: Yes Patient Placed on Monitor/Pulse Ox: Yes MD Prep: mask, gloves Central Line Prep: Povidone-Iodine 1%, Chlorhexidine scrub, sterile drapes applied Ultrasound Used for Placement: No Central Line Lumen Inserted: triple Bloods Obtained for Lab: No Central Line Position: good blood return, all ports aspirated, flushed, capped, sutured in place with 2-0 silk Dressing Applied: Tegaderm Post Procedure X-Ray: tip of catheter in good position Patient Tolerated Procedure: well Complications: none Medical Decision Making - Medical Decision Making 66-year-old female presenting in septic shock. Patient was intubated and started on pressors prior to transport. Laboratory studies were repeated in the emergency department. Patient was given levofloxacin and vancomycin prior to transfer. Central line was placed in the right subclavian vein. Chest x- ray obtained to confirm ET tube placement and central line placement. Patient remains unresponsive despite minimal sedation. She was given long-acting paralytic in route, therefore complete neurological examination is difficult at this time. Patient's pupils are 3 mm and reactive bilaterally. Patient will be continued on IV antibiotics. Admitted to the intensive care unit. Case was discussed with the pulmonary tableau developer. Hemoglobin prior to transfer was 9.4, repeat 7.6. No active sign of bleeding, patient did receive large volume resuscitation. lactic acid 5.1, redraw 3.8, second redraw 2.6. Initial troponin was negative serum creatinine was 3.4, baseline from transferring facility was 1.3. Tylenol and CT of the thorax without contrast obtained from transferring facility shows concern for bilateral pneumonia versus pneumonitis. Head CT was obtained prior to transfer as well shows no acute intracranial abnormality. 66-year-old female normally Septic shock, pneumonia versus urosepsis - Lab Data Result diagrams: 02/20/17 21:20 02/20/17 21:20 Lab Results 02/20/17 02/20/17 02/20/17 Range/Units 21:20 21:20 21:20 WBC 7.6 (3.8-10.6) k/uL RBC 2.58 L (3.80-5.40) m/uL Hgb 7.6 L (11.4-16.0) gm/dL Hct 24.4 L (34.0-46.0) % MCV 94.3 (80.0-100.0) fL MCH 29.5 (25.0-35.0) pg MCHC 31.2 (31.0-37.0) g/dL RDW 17.2 H (11.5-15.5) % Plt Count 245 (150-450) k/uL Neutrophils % (Manual) 48.0 % Band Neutrophils % 36.0 % Lymphocytes % (Manual) 12.0 % Monocytes % (Manual) 3.0 % Eosinophils % (Manual) 1.0 % Neutrophils # (Manual) 6.4 (1.3-7.7) k/uL Lymphocytes # (Manual) 0.9 L (1.0-4.8) k/uL Monocytes # (Manual) 0.2 (0-1.0) k/uL Eosinophils # (Manual) 0.1 (0-0.7) k/uL Nucleated RBCs 0 (0-0) /100 WBC Manual Slide Review Performed Hypochromasia Slight Anisocytosis Slight PT (9.0-12.0) sec INR (<1.2) APTT (22.0-30.0) sec Sample Site ABG pH (7.35-7.45) ABG pCO2 (35-45) mmHg ABG pO2 (83-108) mmHg ABG HCO3 (21-25) mmol/L ABG Total CO2 (19-24) mmol/L ABG O2 Saturation (94-97) % ABG Base Excess mmol/L FiO2 % Sodium 143 (137-145) mmol/L Potassium 4.8 (3.5-5.1) mmol/L Chloride 108 H (98-107) mmol/L Carbon Dioxide 18 L (22-30) mmol/L Anion Gap 17 mmol/L BUN 61 H (7-17) mg/dL Creatinine 3.10 H (0.52-1.04) mg/dL Est GFR (MDRD) Af Amer 18 (>60 ml/min/1.73 sqM) Est GFR (MDRD) Non-Af 15 (>60 ml/min/1.73 sqM) Glucose 179 H (74-99) mg/dL Plasma Lactic Acid Maximus 2.6 H* (0.7-2.0) mmol/L Calcium 7.9 L (8.4-10.2) mg/dL Total Bilirubin 0.5 (0.2-1.3) mg/dL AST 21 (14-36) U/L ALT 34 (9-52) U/L Alkaline Phosphatase 105 (38-126) U/L Troponin I (0.000-0.034) ng/mL Total Protein 6.0 L (6.3-8.2) g/dL Albumin 2.5 L (3.5-5.0) g/dL Urine Color Urine Appearance (Clear) Urine pH (5.0-8.0) Ur Specific [place] (1.001-1.035) Urine Protein (Negative) Urine Glucose (UA) (Negative) Urine Ketones (Negative) Urine Blood (Negative) Urine Nitrite (Negative) Urine Bilirubin (Negative) Urine Urobilinogen (<2.0) mg/dL Ur Leukocyte Esterase (Negative) Urine RBC (0-5) /hpf Urine WBC (0-5) /hpf Urine WBC Clumps (None) /hpf Ur Squamous Epith Cells (0-4) /hpf Urine Bacteria (None) /hpf Urine Mucus (None) /hpf Urine Yeast (Budding) (None) /hpf 02/20/17 02/20/17 02/20/17 Range/Units 21:20 21:20 21:20 WBC (3.8-10.6) k/uL RBC (3.80-5.40) m/uL Hgb (11.4-16.0) gm/dL Hct (34.0-46.0) % MCV (80.0-100.0) fL MCH (25.0-35.0) pg MCHC (31.0-37.0) g/dL RDW (11.5-15.5) % Plt Count (150-450) k/uL Neutrophils % (Manual) % Band Neutrophils % % Lymphocytes % (Manual) % Monocytes % (Manual) % Eosinophils % (Manual) % Neutrophils # (Manual) (1.3-7.7) k/uL Lymphocytes # (Manual) (1.0-4.8) k/uL Monocytes # (Manual) (0-1.0) k/uL Eosinophils # (Manual) (0-0.7) k/uL Nucleated RBCs (0-0) /100 WBC Manual Slide Review Hypochromasia Anisocytosis PT 12.4 H (9.0-12.0) sec INR 1.3 H (<1.2) APTT 28.0 (22.0-30.0) sec Sample Site ABG pH (7.35-7.45) ABG pCO2 (35-45) mmHg ABG pO2 (83-108) mmHg ABG HCO3 (21-25) mmol/L ABG Total CO2 (19-24) mmol/L ABG O2 Saturation (94-97) % ABG Base Excess mmol/L FiO2 % Sodium (137-145) mmol/L Potassium (3.5-5.1) mmol/L Chloride (98-107) mmol/L Carbon Dioxide (22-30) mmol/L Anion Gap mmol/L BUN (7-17) mg/dL Creatinine (0.52-1.04) mg/dL Est GFR (MDRD) Af Amer (>60 ml/min/1.73 sqM) Est GFR (MDRD) Non-Af (>60 ml/min/1.73 sqM) Glucose (74-99) mg/dL Plasma Lactic Acid Maximus (0.7-2.0) mmol/L Calcium (8.4-10.2) mg/dL Total Bilirubin (0.2-1.3) mg/dL AST (14-36) U/L ALT (9-52) U/L Alkaline Phosphatase (38-126) U/L Troponin I 0.047 H* (0.000-0.034) ng/mL Total Protein (6.3-8.2) g/dL Albumin (3.5-5.0) g/dL Urine Color Yellow Urine Appearance Cloudy H (Clear) Urine pH 5.5 (5.0-8.0) Ur Specific [place] 1.012 (1.001-1.035) Urine Protein 1+ H (Negative) Urine Glucose (UA) Negative (Negative) Urine Ketones Negative (Negative) Urine Blood Trace H (Negative) Urine Nitrite Negative (Negative) Urine Bilirubin Negative (Negative) Urine Urobilinogen <2.0 (<2.0) mg/dL Ur Leukocyte Esterase Large H (Negative) Urine RBC 8 H (0-5) /hpf Urine WBC >182 H (0-5) /hpf Urine WBC Clumps Few H (None) /hpf Ur Squamous Epith Cells 1 (0-4) /hpf Urine Bacteria Moderate H (None) /hpf Urine Mucus Rare H (None) /hpf Urine Yeast (Budding) Few H (None) /hpf 02/20/17 Range/Units 21:55 WBC (3.8-10.6) k/uL RBC (3.80-5.40) m/uL Hgb (11.4-16.0) gm/dL Hct (34.0-46.0) % MCV (80.0-100.0) fL MCH (25.0-35.0) pg MCHC (31.0-37.0) g/dL RDW (11.5-15.5) % Plt Count (150-450) k/uL Neutrophils % (Manual) % Band Neutrophils % % Lymphocytes % (Manual) % Monocytes % (Manual) % Eosinophils % (Manual) % Neutrophils # (Manual) (1.3-7.7) k/uL Lymphocytes # (Manual) (1.0-4.8) k/uL Monocytes # (Manual) (0-1.0) k/uL Eosinophils # (Manual) (0-0.7) k/uL Nucleated RBCs (0-0) /100 WBC Manual Slide Review Hypochromasia Anisocytosis PT (9.0-12.0) sec INR (<1.2) APTT (22.0-30.0) sec Sample Site lbrach ABG pH 7.35 (7.35-7.45) ABG pCO2 34 L (35-45) mmHg ABG pO2 192 H (83-108) mmHg ABG HCO3 18 L (21-25) mmol/L ABG Total CO2 19 (19-24) mmol/L ABG O2 Saturation 99.6 H (94-97) % ABG Base Excess -6.3 mmol/L FiO2 100 % Sodium (137-145) mmol/L Potassium (3.5-5.1) mmol/L Chloride (98-107) mmol/L Carbon Dioxide (22-30) mmol/L Anion Gap mmol/L BUN (7-17) mg/dL Creatinine (0.52-1.04) mg/dL Est GFR (MDRD) Af Amer (>60 ml/min/1.73 sqM) Est GFR (MDRD) Non-Af (>60 ml/min/1.73 sqM) Glucose (74-99) mg/dL Plasma Lactic Acid Maximus (0.7-2.0) mmol/L Calcium (8.4-10.2) mg/dL Total Bilirubin (0.2-1.3) mg/dL AST (14-36) U/L ALT (9-52) U/L Alkaline Phosphatase (38-126) U/L Troponin I (0.000-0.034) ng/mL Total Protein (6.3-8.2) g/dL Albumin (3.5-5.0) g/dL Urine Color Urine Appearance (Clear) Urine pH (5.0-8.0) Ur Specific [place] (1.001-1.035) Urine Protein (Negative) Urine Glucose (UA) (Negative) Urine Ketones (Negative) Urine Blood (Negative) Urine Nitrite (Negative) Urine Bilirubin (Negative) Urine Urobilinogen (<2.0) mg/dL Ur Leukocyte Esterase (Negative) Urine RBC (0-5) /hpf Urine WBC (0-5) /hpf Urine WBC Clumps (None) /hpf Ur Squamous Epith Cells (0-4) /hpf Urine Bacteria (None) /hpf Urine Mucus (None) /hpf Urine Yeast (Budding) (None) /hpf Critical Care Time Critical Care Time: Yes Total Critical Care Time: 75 Disposition Clinical Impression: Septic shock Disposition: ADMITTED IP TO THIS HOSP Condition: Serious Referrals: Aquilino Khanna MD [Primary Care Provider] - 1-2 days Decision to Admit Reason: Admit from EC Decision Date: 02/20/17 Decision Time: 23:09
[2017-02-21 00:05] LABS: Glucose,Whole Blood 216 mg/dL (75-99)
[2017-02-21] MEDS: SODIUM CHLORIDE 0.9% 1,000 ML IV SCH ×4 (01:56→23:28)
[2017-02-21] MEDS ORDERED: NOREPINEPHRIN 16 MG-0.9%NS PMX 16 MG/250 ML ML IV SCH (04:00)
[2017-02-21 06:18] LABS: Anisocytosis Slight; Basophils % (A) 0 %; CH 29.3; Eosinophils % (A) 0 %; HCT 25.7 % (34.0-46.0); HDW 2.68; Hypochromasia Slight; Luc % (Auto) 1; Lymphocytes # (A) 1.7 k/uL (1.0-4.8); Lymphocytes % (A) 12 %; MCH 29.6 pg (25.0-35.0); MCHC 31.1 g/dL (31.0-37.0); Mean Platelet Volume 7.8; Monocytes # (A) 0.5 k/uL (0-1.0); Monocytes % (A) 3 %; Neutrophils # (A) 12.1 k/uL (1.3-7.7); Neutrophils % (A) 83 %; RDW 17.3 % (11.5-15.5); WBC 14.6 k/uL (3.8-10.6); WBC (Perox) 14.18
[2017-02-21 06:35] LABS: Calcium 8.2 mg/dL (8.4-10.2); Phosphorous 5.2 mg/dL (2.5-4.5); Potassium 4.8 mmol/L (3.5-5.1); Total Bilirubin 0.3 mg/dL (0.2-1.3); Total Protein 6.1 g/dL (6.3-8.2)
[2017-02-21 06:56] LABS: Glucose,Whole Blood 176 mg/dL (75-99)
[2017-02-21 08:32] LABS: ABG PCO2 38 mmHg (35-45); ABG PH 7.39 (7.35-7.45)
[2017-02-21 08:33] LABS: ABG HCO3 22 mmol/L (21-25); ABG PO2 263 mmHg (83-108); ABG TCO2 23 mmol/L (19-24)
[2017-02-21] MEDS: INSULIN LISPRO (humaLOG) 300 UNIT/3 ML VIAL SQ SCH ×3 (08:49→18:15)
[2017-02-21] MEDS: CHLORHEXIDINE GLUCONATE 15 ML CUP MUCOUS MEM SCH ×2 (08:51→21:51)
[2017-02-21] MEDS: ESOMEPRAZOLE 20 MG in SODIUM CHLORIDE 0.9% 50 ML IVPB SCH (08:51)
--- NOTE | 2017-02-21 09:18 | XR ---
EXAMINATION TYPE: XR chest 1V portable DATE OF EXAM: 02/21/2017 COMPARISON: Prior chest x-ray 02/20/2017 HISTORY: Intubated TECHNIQUE: Single frontal view of the chest is obtained. FINDINGS: Patient is rotated. Endotracheal tube and NG tube are overlying appropriate positions, rig ht-sided central venous catheter shows the distal tip at the cavoatrial junction. There is no pneumot horax. Retrocardiac density persists. Patchy basilar density is noted. IMPRESSION: Possible lower lobe atelectasis versus pneumonia, associated effusion.
[2017-02-21] MEDS ORDERED: LINEZOLID 600 MG in DEXTROSE/WATER 1 300ML.BAG IVPB SCH (11:00)
[2017-02-21] MEDS ORDERED: VANCOMYCIN 1,500 MG in SODIUM CHLORIDE 0.9% 250 ML IVPB ONE (12:00)
[2017-02-21] MEDS ORDERED: LEVOFLOXACIN 750MG-D5W PMX 750 MG in DEXTROSE/WATER 1 150ML.BAG IVPB ONE ×2 (12:00→17:00)
[2017-02-21] MEDS: IPRATROPIUM-ALBUTEROL 3 ML NEB INHALATION SCH ×4 (12:19→23:06)
--- NOTE | 2017-02-21 12:20 | CT ---
EXAMINATION TYPE: CT brain wo con DATE OF EXAM: 02/21/2017 COMPARISON: NONE HISTORY: Pt intubated at time of scan. Unresponsive. CT DLP: 1575.2 mGycm. Automated Exposure Control for Dose Reduction was Utilized. TECHNIQUE: CT scan of the head is performed without contrast. FINDINGS: There is no acute intracranial hemorrhage or midline shift. Age indeterminant lacunar inj ury is seen of the anterior limb of the left internal capsule. There is symmetric ventricular promine nce and sulcal prominence consistent with age-related cerebral atrophy. Multiple foci of hypoattenuat ion are seen within the subcortical and periventricular white matter related to chronic microangiopat hy. Portions of an enteric tube are seen at the most inferior images. There is partial opacification of the left mastoid air cells. Atherosclerosis is seen of the intracranial vasculature. Hyperostosis frontalis internus is incidentally noted. The globes are intact and the visualized sinuses are clear . IMPRESSION: 1. Age-indeterminate lacunar injury of the anterior limb of the left internal capsule. 2. No acute intracranial hemorrhage or midline shift is seen.
[2017-02-21 12:55] LABS: Glucose,Whole Blood 116 mg/dL (75-99)
--- NOTE | 2017-02-21 12:58 | P.HPIM ---
History of Present Illness H&P Date: 02/21/17 Chief Complaint: Altered mental status/sepsis. This is a 66-year-old white female, who is very well-known to my practice who has been recently apparently transferred to [facility] secondary to multiple falls. She has an inability to live independently because of multiple falls and family support which is only minimal. She does have a daughter but she has poor transportation and lives, near [facility]. She has a significant past medical history of diabetes. She has chronic left lower extremity DVT with Carroll filter. However, she was transferred per from outside facility and was, by history, intubated. She is hypoxic and now on appropriate ICU care. Multiple pressors are also noted. The patient is quite tachycardic secondary to side effects. She is not being treated for appropriate septic care. Computed tomography scan of the head does show old lacunar infarct. Her eyes checks x-ray shows pneumonia/pneumonitis. The patient is otherwise nonresponsive. Review of Systems ROS unobtainable: due to endotracheal tube Past Medical History Past Medical History: Diabetes Mellitus, Deep Vein Thrombosis (DVT), Fibromyalgia, GI Bleed, Hypertension, Skin Disorder, Sleep Apnea/CPAP/BIPAP Additional Past Medical History / Comment(s): Pt recently fell (April 2016) and had L eye contusion/L lower leg laceration-surgically repaired/DVT L lower leg and acute blood loss anemia. Other HX: IDDM type II, DVT L leg, bilateral lower leg cellulitis with L lower leg cellulitis. rt heel pressure ulcer-SINCE HEALED, peripheral neuropathy bilateral hands and feet, falls, chronic UTI'S, bilateral tinnitis, hemorrhoids, migraines, obesity, high cholesterol, chronic back pain, eczema, sinus problems, sleep apnea no CPAP, stomach ulcers, lower GI bleed. 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 Past Anesthesia/Blood Transfusion Reactions: No Reported Reaction Additional Past Anesthesia/Blood Transfusion Reaction / Comment(s): pt has received blood in the past without reaction. Past Psychological History: Anxiety, Depression Additional Psychological History / Comment(s): Pt lives with a roomate. She is wheelchair bound. She has an aide coming 3 times a week for bathing. She manages her own medication. Goes to wound care center every tuesday. She does not drive any longer. She gets to [employer] by bus. Smoking Status: Former smoker Past Alcohol Use History: Rare Additional Past Alcohol Use History / Comment(s): She has history of smoking 2 packs per day for 27 years and quit in 1993. She drinks alcohol rarely. 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 pt stated SHE HAS HOME CARE WITH VISITNG NURSES. uses a w/c Past Drug Use History: Marijuana, Marijuana Additional Drug Use History / Comment(s): pt admits to marujuana use when she is in a lot of pain. - Past Family History Father Family Medical History: Myocardial Infarction (ND) Additional Family Medical History / Comment(s): AT AGE 46-ND Mother Family Medical History: Diabetes Mellitus Additional Family Medical History / Comment(s): AT AGE 66 FROM COMPLICATIONS FROM DM Sister(s) Family Medical History: Diabetes Mellitus Brother(s) Family Medical History: Diabetes Mellitus Daughter(s) Family Medical History: Cancer Son(s) Family Medical History: No Reported History Medications and Allergies Home Medications Medication Instructions Recorded Confirmed Type Atorvastatin [Lipitor] 40 mg PO HS 08/30/15 02/20/17 History Allopurinol [Zyloprim] 100 mg PO BID 05/21/16 02/20/17 History Calcium Carbonate/Vitamin D3 1 tab PO DAILY 05/21/16 02/20/17 History [Calcium 600-Vit D3 400 Caplet] Furosemide [Lasix] 80 mg PO QAM 05/21/16 02/20/17 History metFORMIN HCL 1,000 mg PO BID 05/21/16 02/20/17 History Cholecalciferol [Vitamin D3] 1,000 unit PO DAILY 06/29/16 02/20/17 History Ferrous Sulfate [Iron (65 MG 650 mg PO DAILY 06/29/16 02/20/17 History Elemental)] Magnesium Hydroxide [Milk of 2,400 mg PO DAILY PRN 06/29/16 02/20/17 History Magnesia] Polyethylene Glycol 3350 [Miralax] 17 gm PO DAILY 06/29/16 02/20/17 History Acetaminophen [Tylenol] 650 mg PO Q4H PRN 10/27/16 02/20/17 History INSULIN LISPRO (humaLOG) [humaLOG See Protocol SQ QID 11/28/16 02/20/17 History (formulary)] rOPINIRole HCL [Requip] 0.25 mg PO HS 11/29/16 02/20/17 History Ranitidine HCl [Zantac] 150 mg PO HS 01/12/17 02/20/17 History Bisacodyl [Dulcolax] 10 mg PO DAILY PRN 01/26/17 02/20/17 History Sulfamethox-Tmp 800-160Mg [Bactrim 1 tab PO BID 02/16/17 02/20/17 History DS 800-160 mg] Bisacodyl [Dulcolax] 10 mg RECTAL DAILY PRN 02/20/17 02/20/17 History Cranberry Fruit Concentrate 900 mg PO DAILY 02/20/17 02/20/17 History [Cranberry] DULoxetine HCL [Cymbalta] 60 mg PO DAILY 02/20/17 02/20/17 History L.acidoph,Paracasei, B.lactis 2 cap PO DAILY 02/20/17 02/20/17 History [Probiotic] Multivitamins, Thera [Multivitamin 1 tab PO DAILY 02/20/17 02/20/17 History (formulary)] Na Phos,M-B/Na Phos,Di-Ba [Fleet 133 ml RECTAL DAILY PRN 02/20/17 02/20/17 History Adult] Sennosides-Docusate Sodium 1 tab PO DAILY 02/20/17 02/20/17 History [Senokot-S] tiZANidine HCL 4 mg PO DAILY 02/20/17 02/20/17 History Allergies Allergy/AdvReac Type Severity Reaction Status Date / Time adhesive tape Allergy Severe Rash/Hives Verified 02/16/17 11:34 cephalexin monohydrate Allergy Severe Rash/Hives Verified 02/16/17 11:34 [From Keflex] influenza virus vaccine, Allergy Severe Anaphylaxis Verified 02/16/17 11:34 specific [influenza virus vacc,specific] latex Allergy Severe Rash/Hives Verified 02/16/17 11:34 peanut Allergy Severe Anaphylaxis Verified 02/16/17 11:34 Penicillins Allergy Severe Swelling Verified 02/16/17 11:34 tetanus toxoid, adsorbed Allergy Intermediate Rash/Hives Verified 02/16/17 11:34 Physical Exam Vitals: Vital Signs Temp Pulse Resp BP Pulse Ox 02/21/17 12:19 102 H 14 02/21/17 12:00 100 02/21/17 11:00 102 H 16 87/50 100 02/21/17 10:30 100 13 99/50 100 02/21/17 10:00 101 H 15 90/60 99 02/21/17 09:30 91 14 100/50 98 02/21/17 09:00 92 14 103/52 100 02/21/17 08:30 107 H 13 103/52 100 02/21/17 08:00 98.7 F 102 H 11 L 135/60 100 02/21/17 07:30 110 H 17 125/59 100 02/21/17 07:00 113 H 19 159/61 100 02/21/17 06:30 113 H 14 155/69 100 02/21/17 06:00 96 20 107/54 100 02/21/17 05:30 99 18 104/52 100 02/21/17 05:00 98 20 98/51 100 02/21/17 04:30 94 21 110/51 100 02/21/17 04:00 99.7 F H 101 H 21 119/54 100 02/21/17 03:30 100 18 121/53 100 02/21/17 03:00 98 20 99/46 100 02/21/17 02:30 95 19 96/48 100 02/21/17 02:00 98 16 137/56 100 02/21/17 01:30 101 H 12 120/62 100 02/21/17 01:00 103 H 12 118/61 100 02/21/17 00:30 103 H 29 H 128/60 100 02/21/17 00:00 98.6 F 105 H 40 H 100 02/20/17 23:51 108 H 100 02/20/17 23:36 105 H 14 113/56 100 02/20/17 23:15 110 H 14 124/57 02/20/17 23:05 110 H 14 116/57 100 02/20/17 22:50 111 H 14 118/57 100 02/20/17 22:35 114 H 14 116/58 100 02/20/17 22:25 98.8 F 112 H 14 116/57 100 02/20/17 22:13 112 H 14 116/56 100 02/20/17 22:04 109 H 14 88/52 100 02/20/17 21:55 114 H 14 112/57 100 02/20/17 21:50 119 H 14 143/55 100 02/20/17 21:44 120 H 14 151/69 100 02/20/17 21:32 108 H 14 70/48 100 02/20/17 21:25 91 14 70/42 100 02/20/17 21:06 109 H 16 67/40 100 Intake and Output 02/20/17 02/21/17 02/21/17 22:59 06:59 14:59 Intake Total 8.437 980.813 697.40 Output Total 1020 420 Balance 8.437 -39.187 277.40 Intake: IV 895 675 Nexium 50 Sodium Chloride 0.9% 1, 895 625 000 ml @ 125 mls/hr IV . Q8H [facility] Rx#:[id number] Intake, IV Titration 8.437 85.813 22.40 Amount Midazolam HCl 100 mg In 17.15 Sodium Chloride 0.9% 80 ml @ 1.4 MG/HR 1.4 mls/hr IV .Q24H [facility] Rx#: [id number] Norepinephrin 16 mg-0.9% 29.313 5.25 Ns Pmx 16 mg In 250 ml @ Titrate IV .Q0M [facility] Rx#: [id number] Norepinephrin 4 mg-0.9% 8.437 56.5 Ns Pmx 4 mg In 250 ml @ Titrate IV .Q0M [facility] Rx#: [id number] Output: Urine 1020 420 Other: Voiding Method Indwelling Catheter Indwelling Catheter Weight 93.667 kg 89.7 kg 92.8 kg Patient Weight 02/22/17 06:59 Weight 92.8 kg - Constitutional General appearance: no acute distress - EENT Eyes: EOMI - Neck Neck: no lymphadenopathy - Respiratory Respiratory: bilateral: diminished - Cardiovascular Rhythm: regular Heart sounds: normal: S1, S2 - Gastrointestinal General gastrointestinal: soft, no tenderness - Neurologic Neurologic: CNII-XII intact - Psychiatric Psychiatric: no A&O x's 3 Results CBC & Chem 7: 02/21/17 05:55 02/21/17 05:55 Labs: Abnormal Lab Results - Last 24 Hours (Table) 02/20/17 02/20/17 02/20/17 Range/Units 21:20 21:20 21:20 WBC (3.8-10.6) k/uL RBC 2.58 L (3.80-5.40) m/uL Hgb 7.6 L (11.4-16.0) gm/dL Hct 24.4 L (34.0-46.0) % RDW 17.2 H (11.5-15.5) % Neutrophils # (1.3-7.7) k/uL Lymphocytes # (Manual) 0.9 L (1.0-4.8) k/uL PT (9.0-12.0) sec INR (<1.2) ABG pCO2 (35-45) mmHg ABG pO2 (83-108) mmHg ABG HCO3 (21-25) mmol/L ABG O2 Saturation (94-97) % Chloride 108 H (98-107) mmol/L Carbon Dioxide 18 L (22-30) mmol/L BUN 61 H (7-17) mg/dL Creatinine 3.10 H (0.52-1.04) mg/dL Glucose 179 H (74-99) mg/dL POC Glucose (mg/dL) (75-99) mg/dL Plasma Lactic Acid Maximus 2.6 H* (0.7-2.0) mmol/L Calcium 7.9 L (8.4-10.2) mg/dL Phosphorus (2.5-4.5) mg/dL Troponin I (0.000-0.034) ng/mL Total Protein 6.0 L (6.3-8.2) g/dL Albumin 2.5 L (3.5-5.0) g/dL Urine Appearance (Clear) Urine Protein (Negative) Urine Blood (Negative) Ur Leukocyte Esterase (Negative) Urine RBC (0-5) /hpf Urine WBC (0-5) /hpf Urine WBC Clumps (None) /hpf Urine Bacteria (None) /hpf Urine Mucus (None) /hpf Urine Yeast (Budding) (None) /hpf 02/20/17 02/20/17 02/20/17 Range/Units 21:20 21:20 21:20 WBC (3.8-10.6) k/uL RBC (3.80-5.40) m/uL Hgb (11.4-16.0) gm/dL Hct (34.0-46.0) % RDW (11.5-15.5) % Neutrophils # (1.3-7.7) k/uL Lymphocytes # (Manual) (1.0-4.8) k/uL PT 12.4 H (9.0-12.0) sec INR 1.3 H (<1.2) ABG pCO2 (35-45) mmHg ABG pO2 (83-108) mmHg ABG HCO3 (21-25) mmol/L ABG O2 Saturation (94-97) % Chloride (98-107) mmol/L Carbon Dioxide (22-30) mmol/L BUN (7-17) mg/dL Creatinine (0.52-1.04) mg/dL Glucose (74-99) mg/dL POC Glucose (mg/dL) (75-99) mg/dL Plasma Lactic Acid Maximus (0.7-2.0) mmol/L Calcium (8.4-10.2) mg/dL Phosphorus (2.5-4.5) mg/dL Troponin I 0.047 H* (0.000-0.034) ng/mL Total Protein (6.3-8.2) g/dL Albumin (3.5-5.0) g/dL Urine Appearance Cloudy H (Clear) Urine Protein 1+ H (Negative) Urine Blood Trace H (Negative) Ur Leukocyte Esterase Large H (Negative) Urine RBC 8 H (0-5) /hpf Urine WBC >182 H (0-5) /hpf Urine WBC Clumps Few H (None) /hpf Urine Bacteria Moderate H (None) /hpf Urine Mucus Rare H (None) /hpf Urine Yeast (Budding) Few H (None) /hpf 02/20/17 02/21/17 02/21/17 Range/Units 21:55 00:03 05:55 WBC 14.6 H (3.8-10.6) k/uL RBC 2.70 L (3.80-5.40) m/uL Hgb 8.0 L (11.4-16.0) gm/dL Hct 25.7 L (34.0-46.0) % RDW 17.3 H (11.5-15.5) % Neutrophils # 12.1 H (1.3-7.7) k/uL Lymphocytes # (Manual) (1.0-4.8) k/uL PT (9.0-12.0) sec INR (<1.2) ABG pCO2 34 L (35-45) mmHg ABG pO2 192 H (83-108) mmHg ABG HCO3 18 L (21-25) mmol/L ABG O2 Saturation 99.6 H (94-97) % Chloride (98-107) mmol/L Carbon Dioxide (22-30) mmol/L BUN (7-17) mg/dL Creatinine (0.52-1.04) mg/dL Glucose (74-99) mg/dL POC Glucose (mg/dL) 216 H (75-99) mg/dL Plasma Lactic Acid Maximus (0.7-2.0) mmol/L Calcium (8.4-10.2) mg/dL Phosphorus (2.5-4.5) mg/dL Troponin I (0.000-0.034) ng/mL Total Protein (6.3-8.2) g/dL Albumin (3.5-5.0) g/dL Urine Appearance (Clear) Urine Protein (Negative) Urine Blood (Negative) Ur Leukocyte Esterase (Negative) Urine RBC (0-5) /hpf Urine WBC (0-5) /hpf Urine WBC Clumps (None) /hpf Urine Bacteria (None) /hpf Urine Mucus (None) /hpf Urine Yeast (Budding) (None) /hpf 02/21/17 02/21/17 02/21/17 Range/Units 05:55 06:55 07:59 WBC (3.8-10.6) k/uL RBC (3.80-5.40) m/uL Hgb (11.4-16.0) gm/dL Hct (34.0-46.0) % RDW (11.5-15.5) % Neutrophils # (1.3-7.7) k/uL Lymphocytes # (Manual) (1.0-4.8) k/uL PT (9.0-12.0) sec INR (<1.2) ABG pCO2 (35-45) mmHg ABG pO2 263 H (83-108) mmHg ABG HCO3 (21-25) mmol/L ABG O2 Saturation 100.0 H (94-97) % Chloride 108 H (98-107) mmol/L Carbon Dioxide (22-30) mmol/L BUN 62 H (7-17) mg/dL Creatinine 3.00 H (0.52-1.04) mg/dL Glucose 146 H (74-99) mg/dL POC Glucose (mg/dL) 176 H (75-99) mg/dL Plasma Lactic Acid Maximus (0.7-2.0) mmol/L Calcium 8.2 L (8.4-10.2) mg/dL Phosphorus 5.2 H (2.5-4.5) mg/dL Troponin I (0.000-0.034) ng/mL Total Protein 6.1 L (6.3-8.2) g/dL Albumin 2.6 L (3.5-5.0) g/dL Urine Appearance (Clear) Urine Protein (Negative) Urine Blood (Negative) Ur Leukocyte Esterase (Negative) Urine RBC (0-5) /hpf Urine WBC (0-5) /hpf Urine WBC Clumps (None) /hpf Urine Bacteria (None) /hpf Urine Mucus (None) /hpf Urine Yeast (Budding) (None) /hpf Microbiology - Last 24 Hours (Table) 02/20/17 21:20 Urine Culture - Preliminary Urine,Catheterized Thrombosis Risk Factor Assmnt - Choose All That Apply Any of the Below Risk Factors Present?: Yes Each Factor Represents 1 point: Obesity (BMI >25) Other Risk Factors: Yes Each Risk Factor Represents 2 Points: Age 61-74 years Thrombosis Risk Factor Assessment Total Risk Factor Score: 3 Thrombosis Risk Factor Assessment Level: Moderate Risk Assessment and Plan (1) Septic shock Status: Acute (2) Acute renal failure (ARF) Status: Acute (3) Altered mental status Status: Acute (4) Cellulitis of left lower leg Status: Acute (5) Chronic deep vein thrombosis (DVT) of left popliteal vein Status: Acute (6) Encephalopathy acute Status: Acute (7) Failure of outpatient treatment Status: Acute Plan: Continue supportive care. Prognosis is guarded if not poor secondary to her mental status. Observe for day. Breakfast Attendant care with antibiotics. Pap check CBC CMP and magnesium in a.m. Continue septic protocol. Time with Patient: Greater than 30
[2017-02-21 13:18] LABS: Hemoglobin A1C 6.4 % (4.2-6.1)
--- NOTE | 2017-02-21 14:33 | CONS ---
Critical care time 40 minutes. This is a 66-year-old female who apparently presented to [facility] with urinary tract infection, urosepsis, pneumonia and mental status changes. The patient was apparently intubated at [facility] and transferred to our ER where she was evaluated. She was intubated on the and admitted here on the . She is a 66-year-old female who was transferred because of mental status changes. She was apparently in extreme ( ) with hypoxemic respiratory failure in their ER. Her saturations are apparently 75% and she was bradycardiac. She was hernandez and cyanotic. The patient was admitted with the diagnosis of possible aspiration pneumonia, urosepsis. She apparently also has a history of MRSA infection of the left leg. She apparently has baseline encephalopathy and does reside at a intermediate. Her intermediate medications include Lipitor, Zyloprim, calcium with vitamin D3 , Lasix, metformin, iron, magnesium, MiraLAX, Tylenol, insulin, Requip, Zantac, Dulcolax, Bactrim, cranberry concentrate, Cymbalta, probiotic, multiple vitamins , Fleets enema, Senokot and tizanidine. Previous medications included Lyrica, morphine and potassium chloride. ALLERGIES: PEANUTS, PENICILLIN, TETANUS TOXOID, KEFLEX, INFLUENZA VACCINE. MEDICAL HISTORY: Apparently positive for diabetes mellitus, DVT, fibromyalgia, GI bleed, hypertension, sleep apnea syndrome on CPAP or BiPAP. Also, recently apparently fell and had left leg contusion, left lower extremity laceration with removal of prosthesis. Subsequent infection with MRSA. Also, a number of other medical problems as noted in the ER k[facility] including migraines, hemorrhoids , hyperlipidemia, chronic back pain, eczema, etc. SURGICAL HISTORY: Includes among other things, adenoidectomy, bariatric surgery , cholecystectomy, joint replacement, tubal ligation, tonsillectomy, PREVIOUS INFECTIONS: Include both MRSA and vancomycin resistant Enterococci. Additional surgical procedures also noted in the ER khad[facility]. SOCIAL HISTORY: Apparently positive for tobacco use at 2 packs a day for 27 years, quit in 1993. Drinks alcohol rarely. No illicit drug use. FAMILY HISTORY: Positive for myocardial infarction, diabetes and cancer. REVIEW OF SYSTEMS: Cannot be obtained because she is currently intubated and mechanically ventilated and on Versed or midazolam. Current vent setting include the assist control mode rate of 14, tidal volume 380, FIO2 60%, PEEP of 5. Blood gases on those same settings but 100% show a PO2 of 263, PCO2 of 37, pH 7.39. These blood gases are consistent with hyperoxia and a normal acid based status. She is also on a Versed drip at 1.4 mg/hr which I asked the nurse to switch to Propofol for sedation, a 0.9 IV at 125 mL an hour and Levophed at 4 mcg/minute. The nurse, Michela, is currently a daily interruption of sedation. No tube feeds as yet but we did ask dietary to come with an enteral formulation for us. Vital signs include temperature 98.7, heart rate 102, respiratory rate 14, blood pressure 135/60, mean 85, saturations are 100%. Appears in no acute distress. HEENT: Grossly unremarkable. Mucous membranes are moist. There is a nasally placed NG tube and orally placed endotracheal tube. I did ask the nurse to d/c the NG tube and switch it to an orogastric tube. This is to prevent nosocomial sinusitis. NECK: Supple. Full range of motion. No adenopathy. CARDIOVASCULAR: Reveals regular rhythm and rate. S1/S2 normal. Heart rate 100. LUNGS: Reveal some coarse rhonchi. Breath sounds diminished. There are no wheezes or rhonchi. ABDOMEN: Soft. Bowel sounds are heard. EXTREMITIES: Intact. No cyanosis, clubbing or edema. Left lower extremity is wrapped. Labs are reviewed. White count 14.6, hemoglobin 8, hematocrit 25.7, platelet count 341,000. Blood gases have been mentioned. Sodium 144, potassium 4.8, chloride 108, CO2 of 22. BUN and creatinine were 62 and 3.0. Calcium 8.2. Lactic acid was normal. Magnesium is 2. Albumin 2.6. Microbiology is negative. I do not know that she has been cultured, we will have to do that. The patient's chest x-ray shows an endotracheal tube which is above the tracheal evangelina and possibly some bibasilar infiltrates. There is some density or infiltrate behind the heart. Medications are reviewed. I did tell the respiratory therapist to make sure she was on DuoNeb q4 around the clock. She is still on Levophed at 4 mcg/ minute. Other medications are reviewed and include Tylenol, Artificial Tears, Chlorhexidine, omeprazole, insulin, albuterol and Atrovent, Levaquin was discontinued, vancomycin, Propofol. We will have ID come see the patient. ASSESSMENT: 1. Acute hypoxemic respiratory failure, likely secondary to pneumonia. 2. Chronic kidney disease. 3. History of diabetes mellitus. 4. History of deep venous thrombosis status Ramah filter. 5. History of fibromyalgia. 6. History of gastrointestinal bleed. 7. Hypertension. 8. Sleep apnea. 9. Peripheral neuropathy. 10. Migraine cephalgia. 11. Obesity. 12. Status post bariatric surgery. 13. Previous history of methicillin resistant Staphylococcus aureus and vancomycin resistant enterococci infection. 14. Multiple orthopedic procedures. 15. General medical debility. 16. Additional medical problems not currently listed. PLAN: The patient was appropriately dropped from 100% down to 60%. The patient 's Versed will be discontinued. We will start the patient on Propofol for sedation. We will do a daily interruption of sedation. We will see if we can't wean the Levophed off. She is on appropriate antibiotics. We will have ID come see the patient. We will send her for a CT of the brain. No additional recommendations are made. We will make sure that she is cultured. Additional recommendations and suggestions forthcoming. Prognosis is guarded. MTDD
[2017-02-21] MEDS: PROPOFOL 1,000 MG/100 ML VIAL IV SCH (17:48)
[2017-02-21 18:11] LABS: Glucose,Whole Blood 164 mg/dL (75-99)
--- NOTE | 2017-02-21 21:21 | P.CONS ---
History of Present Illness - Reason for Consult Consult date: 02/21/17 - Chief Complaint Altered mental status - History of Present Illness 66-year-old female presents from extended care facility where she has been receiving her care. She has a history of obesity, generalized weakness, falls with decreasing ability to ambulate. Because of this she was transferred to extended care to receive further care to wounds and her multiple medical troubles including her diabetes. It is related from the outside emergency center that the patient presented there with bradycardia with heart rate in the 50s, with a hernandez cyanotic status with a pulse ox of 75%. She required intubation and transferred to our intensive care unit. At the time of transfer she had evidence of acute renal failure with a creatinine now 3.4 and evidence of extensive lactic acidosis at 5.5. The patient remains in the intensive care unit intubated and mechanically ventilated. She's not had extensive sedation and is not responding well. Not currently having fevers, has been hypotensive requiring norepinephrine infusion with fluid resuscitation. Concerns to sepsis from the skin, pneumonia and urine at this time. Review of Systems ROS unobtainable: due to endotracheal tube Past Medical History Past Medical History: Diabetes Mellitus, Deep Vein Thrombosis (DVT), Fibromyalgia, GI Bleed, Hypertension, Skin Disorder, Sleep Apnea/CPAP/BIPAP Additional Past Medical History / Comment(s): Pt recently fell (April 2016) and had L eye contusion/L lower leg laceration-surgically repaired/DVT L lower leg and acute blood loss anemia. Other HX: IDDM type II, DVT L leg, bilateral lower leg cellulitis with L lower leg cellulitis. rt heel pressure ulcer-SINCE HEALED, peripheral neuropathy bilateral hands and feet, falls, chronic UTI'S, bilateral tinnitis, hemorrhoids, migraines, obesity, high cholesterol, chronic back pain, eczema, sinus problems, sleep apnea no CPAP, stomach ulcers, lower GI bleed. 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 Past Anesthesia/Blood Transfusion Reactions: No Reported Reaction Additional Past Anesthesia/Blood Transfusion Reaction / Comm: pt has received blood in the past without reaction. Past Psychological History: Anxiety, Depression Additional Psychological History / Comment(s): Patient is now in extended care. No longer live independently. Does not have any significant family. Was a tobacco smoker stopping several years ago.She has history of smoking 1.5 pack per day for 27 years and quit in 1993. She drinks alcohol rarely. 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 No animal exposures. Smoking Status: Former smoker Past Alcohol Use History: Rare Additional Past Alcohol Use History / Comment(s): She has history of smoking 2 packs per day for 27 years and quit in 1993. She drinks alcohol rarely. 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 pt stated SHE HAS HOME CARE WITH VISITNG NURSES. uses a w/c Past Drug Use History: Marijuana, Marijuana Additional Drug Use History / Comment(s): pt admits to marujuana use when she is in a lot of pain. - Past Family History Father Family Medical History: Myocardial Infarction (AR) Additional Family Medical History / Comment(s): AT AGE 46-AR Mother Family Medical History: Diabetes Mellitus Additional Family Medical History / Comment(s): AT AGE 66 FROM COMPLICATIONS FROM DM Sister(s) Family Medical History: Diabetes Mellitus Brother(s) Family Medical History: Diabetes Mellitus Daughter(s) Family Medical History: Cancer Son(s) Family Medical History: No Reported History Medications and Allergies Home Medications and Allergies Comment(s): Current Medications Acetaminophen (Tylenol Suppository) 650 mg RECTAL Q4HR PRN PRN Reason: Fever And/ Or Mild Pain Albuterol/Ipratropium (Duoneb 0.5 Mg-3 Mg/3 Ml Soln) 3 ml INHALATION RT-Q4H [facility] Last Admin: 02/21/17 19:51 Dose: 3 ml Chlorhexidine Gluconate (Peridex) 15 ml MUCOUS MEM BID [facility] Last Admin: 02/21/17 08:51 Dose: 15 ml Esomeprazole Magnesium 20 mg/ (Sodium Chloride) 50 mls @ 100 mls/hr IVPB DAILY [facility] Last Admin: 02/21/17 08:51 Dose: 100 mls/hr Sodium Chloride (Saline 0.9%) 1,000 mls @ 125 mls/hr IV .Q8H [facility] Last Admin: 02/21/17 15:30 Dose: 125 mls/hr Norepinephrine Bitartrate (Levophed-0.9% Nacl 16 Mg/250ml Pmx) 16 mg in 250 mls @ 0 mls/hr IV .Q0M [facility]; Titrate PRN Reason: Protocol Last Titration: 02/21/17 07:45 Dose: 4 mcg/min, 3.75 mls/hr Propofol (Diprivan) 1,000 mg in 100 mls @ 0 mls/hr IV .Q0M [facility]; Titrate PRN Reason: Protocol Last Admin: 02/21/17 17:48 Dose: 10 mcg/kg/min, 5.382 mls/hr Ceftaroline Fosamil 600 mg/ (Sodium Chloride) 250 mls @ 250 mls/hr IVPB Q12HR [facility] Insulin Human Lispro (Humalog) 0 unit SQ Q6H [facility] PRN Reason: Protocol Last Admin: 02/21/17 18:15 Dose: 1 unit Multi-Ingred Cream/Lotion/Oil/Oint (Lubrifresh Pm Ointment) 1 applic BOTH EYES Q4HR PRN PRN Reason: Dry Eye(s) Naloxone HCl (Narcan) 0.2 mg IV Q2M PRN PRN Reason: Opioid Reversal Home Medications Medication Instructions Recorded Confirmed Type Atorvastatin [Lipitor] 40 mg PO HS 08/30/15 02/20/17 History Allopurinol [Zyloprim] 100 mg PO BID 05/21/16 02/20/17 History Calcium Carbonate/Vitamin D3 1 tab PO DAILY 05/21/16 02/20/17 History [Calcium 600-Vit D3 400 Caplet] Furosemide [Lasix] 80 mg PO QAM 05/21/16 02/20/17 History metFORMIN HCL 1,000 mg PO BID 05/21/16 02/20/17 History Cholecalciferol [Vitamin D3] 1,000 unit PO DAILY 06/29/16 02/20/17 History Ferrous Sulfate [Iron (65 MG 650 mg PO DAILY 06/29/16 02/20/17 History Elemental)] Magnesium Hydroxide [Milk of 2,400 mg PO DAILY PRN 06/29/16 02/20/17 History Magnesia] Polyethylene Glycol 3350 [Miralax] 17 gm PO DAILY 06/29/16 02/20/17 History Acetaminophen [Tylenol] 650 mg PO Q4H PRN 10/27/16 02/20/17 History INSULIN LISPRO (humaLOG) [humaLOG See Protocol SQ QID 11/28/16 02/20/17 History (formulary)] rOPINIRole HCL [Requip] 0.25 mg PO HS 11/29/16 02/20/17 History Ranitidine HCl [Zantac] 150 mg PO HS 01/12/17 02/20/17 History Bisacodyl [Dulcolax] 10 mg PO DAILY PRN 01/26/17 02/20/17 History Sulfamethox-Tmp 800-160Mg [Bactrim 1 tab PO BID 02/16/17 02/20/17 History DS 800-160 mg] Bisacodyl [Dulcolax] 10 mg RECTAL DAILY PRN 02/20/17 02/20/17 History Cranberry Fruit Concentrate 900 mg PO DAILY 02/20/17 02/20/17 History [Cranberry] DULoxetine HCL [Cymbalta] 60 mg PO DAILY 02/20/17 02/20/17 History L.acidoph,Paracasei, B.lactis 2 cap PO DAILY 02/20/17 02/20/17 History [Probiotic] Multivitamins, Thera [Multivitamin 1 tab PO DAILY 02/20/17 02/20/17 History (formulary)] Na Phos,M-B/Na Phos,Di-Ba [Fleet 133 ml RECTAL DAILY PRN 02/20/17 02/20/17 History Adult] Sennosides-Docusate Sodium 1 tab PO DAILY 02/20/17 02/20/17 History [Senokot-S] tiZANidine HCL 4 mg PO DAILY 02/20/17 02/20/17 History Allergies Allergy/AdvReac Type Severity Reaction Status Date / Time adhesive tape Allergy Severe Rash/Hives Verified 02/16/17 11:34 cephalexin monohydrate Allergy Severe Rash/Hives Verified 02/16/17 11:34 [From Keflex] influenza virus vaccine, Allergy Severe Anaphylaxis Verified 02/16/17 11:34 specific [influenza virus vacc,specific] latex Allergy Severe Rash/Hives Verified 02/16/17 11:34 peanut Allergy Severe Anaphylaxis Verified 02/16/17 11:34 Penicillins Allergy Severe Swelling Verified 02/16/17 11:34 tetanus toxoid, adsorbed Allergy Intermediate Rash/Hives Verified 02/16/17 11:34 Physical Exam Vitals: Vital Signs Temp Pulse Resp BP Pulse Ox 02/21/17 20:08 116 H 02/21/17 19:52 108 H 02/21/17 19:00 114 H 16 109/56 100 02/21/17 18:30 115 H 16 93/55 99 02/21/17 18:00 115 H 15 121/58 98 02/21/17 17:30 119 H 19 116/59 98 02/21/17 17:00 124 H 18 118/50 98 02/21/17 16:30 118 H 19 109/57 98 02/21/17 16:00 99.6 F 98 16 101/52 99 02/21/17 15:43 113 H 02/21/17 15:30 110 H 10 L 103/58 99 02/21/17 15:27 110 H 02/21/17 15:00 110 H 23 96/62 98 02/21/17 14:30 109 H 14 110/50 98 02/21/17 14:00 113 H 18 105/57 98 02/21/17 13:30 113 H 18 107/57 98 02/21/17 13:00 98.9 F 112 H 22 100/48 100 02/21/17 12:35 100 02/21/17 12:30 110 H 20 140/67 99 02/21/17 12:19 102 H 14 02/21/17 12:00 18 119/59 100 02/21/17 11:30 109 H 8 L 117/58 99 02/21/17 11:00 102 H 16 87/50 100 02/21/17 10:30 100 13 99/50 100 02/21/17 10:00 101 H 15 90/60 99 02/21/17 09:30 91 14 100/50 98 02/21/17 09:00 92 14 103/52 100 02/21/17 08:30 107 H 13 103/52 100 02/21/17 08:00 98.7 F 102 H 11 L 135/60 100 02/21/17 07:30 110 H 17 125/59 100 02/21/17 07:00 113 H 19 159/61 100 02/21/17 06:30 113 H 14 155/69 100 02/21/17 06:00 96 20 107/54 100 02/21/17 05:30 99 18 104/52 100 02/21/17 05:00 98 20 98/51 100 02/21/17 04:30 94 21 110/51 100 02/21/17 04:00 99.7 F H 101 H 21 119/54 100 02/21/17 03:30 100 18 121/53 100 02/21/17 03:00 98 20 99/46 100 02/21/17 02:30 95 19 96/48 100 02/21/17 02:00 98 16 137/56 100 02/21/17 01:30 101 H 12 120/62 100 02/21/17 01:00 103 H 12 118/61 100 02/21/17 00:30 103 H 29 H 128/60 100 02/21/17 00:00 98.6 F 105 H 40 H 100 02/20/17 23:51 108 H 100 02/20/17 23:36 105 H 14 113/56 100 02/20/17 23:15 110 H 14 124/57 02/20/17 23:05 110 H 14 116/57 100 02/20/17 22:50 111 H 14 118/57 100 02/20/17 22:35 114 H 14 116/58 100 02/20/17 22:25 98.8 F 112 H 14 116/57 100 02/20/17 22:13 112 H 14 116/56 100 02/20/17 22:04 109 H 14 88/52 100 02/20/17 21:55 114 H 14 112/57 100 02/20/17 21:50 119 H 14 143/55 100 02/20/17 21:44 120 H 14 151/69 100 02/20/17 21:32 108 H 14 70/48 100 02/20/17 21:25 91 14 70/42 100 Intake and Output 02/21/17 02/21/17 02/21/17 06:59 14:59 22:59 Intake Total 797.182 7542.40 775 Output Total 1020 570 400 Balance -39.187 677.40 375 Intake: IV 895 1225 775 Levaquin 150 Nexium 50 Sodium Chloride 0.9% 1, 895 875 625 000 ml @ 125 mls/hr IV . Q8H [facility] Rx#:[id number] Zyvox 300 Intake, IV Titration 85.813 22.40 Amount Midazolam HCl 100 mg In 17.15 Sodium Chloride 0.9% 80 ml @ 1.4 MG/HR 1.4 mls/hr IV .Q24H [facility] Rx#: [id number] Norepinephrin 16 mg-0.9% 29.313 5.25 Ns Pmx 16 mg In 250 ml @ Titrate IV .Q0M [facility] Rx#: [id number] Norepinephrin 4 mg-0.9% 56.5 Ns Pmx 4 mg In 250 ml @ Titrate IV .Q0M [facility] Rx#: [id number] Output: Urine 1020 570 400 Other: Voiding Method Indwelling Catheter Indwelling Catheter Indwelling Catheter Weight 89.7 kg 92.8 kg Patient Weight 02/22/17 06:59 Weight 92.8 kg 66-year-old woman who is intubated and mechanically ventilated but not heavily sedated with minimal interaction with the observer HEENT: Anicteric conjunctiva are pink and moist nasal mucosa grossly intact without significant lesions, there is no thrush. Oral cavity is dry Neck: The neck is supple without significant lymphadenopathy or thyromegaly. Lungs: Symmetrical air entry with basilar crackles and expiratory wheezes Heart: Irregular with a positive S4 There is no significant murmur click or rub , PMI was nondisplaced. Abdomen: Obese, Positive bowel sounds soft and nontender without palpable masses or organomegaly. There was no guarding or rebound. Extremities: Upper and lower extremities have evidence of some edema. The left lower extremity has evidence of the extensive lateral ulceration. It bleeds easily with dressing change. Please see the nursing photography for the extent of this ulceration. Skin there is evidence also of stage II pressure ulcerations to the left buttocks and coccyx for which the zinc product is applied. Neuro: Intubated not sedated minimal interactions Results CBC & Chem 7: 02/21/17 05:55 02/21/17 05:55 Labs: Abnormal Lab Results - Last 24 Hours (Table) 02/20/17 02/20/17 02/20/17 Range/Units 21:20 21:20 21:20 WBC (3.8-10.6) k/uL RBC 2.58 L (3.80-5.40) m/uL Hgb 7.6 L (11.4-16.0) gm/dL Hct 24.4 L (34.0-46.0) % RDW 17.2 H (11.5-15.5) % Neutrophils # (1.3-7.7) k/uL Lymphocytes # (Manual) 0.9 L (1.0-4.8) k/uL PT (9.0-12.0) sec INR (<1.2) ABG pCO2 (35-45) mmHg ABG pO2 (83-108) mmHg ABG HCO3 (21-25) mmol/L ABG O2 Saturation (94-97) % Chloride 108 H (98-107) mmol/L Carbon Dioxide 18 L (22-30) mmol/L BUN 61 H (7-17) mg/dL Creatinine 3.10 H (0.52-1.04) mg/dL Glucose 179 H (74-99) mg/dL POC Glucose (mg/dL) (75-99) mg/dL Hemoglobin A1c (4.2-6.1) % Plasma Lactic Acid Maximus 2.6 H* (0.7-2.0) mmol/L Calcium 7.9 L (8.4-10.2) mg/dL Phosphorus (2.5-4.5) mg/dL Troponin I (0.000-0.034) ng/mL Total Protein 6.0 L (6.3-8.2) g/dL Albumin 2.5 L (3.5-5.0) g/dL Urine Appearance (Clear) Urine Protein (Negative) Urine Blood (Negative) Ur Leukocyte Esterase (Negative) Urine RBC (0-5) /hpf Urine WBC (0-5) /hpf Urine WBC Clumps (None) /hpf Urine Bacteria (None) /hpf Urine Mucus (None) /hpf Urine Yeast (Budding) (None) /hpf 02/20/17 02/20/17 02/20/17 Range/Units 21:20 21:20 21:20 WBC (3.8-10.6) k/uL RBC (3.80-5.40) m/uL Hgb (11.4-16.0) gm/dL Hct (34.0-46.0) % RDW (11.5-15.5) % Neutrophils # (1.3-7.7) k/uL Lymphocytes # (Manual) (1.0-4.8) k/uL PT 12.4 H (9.0-12.0) sec INR 1.3 H (<1.2) ABG pCO2 (35-45) mmHg ABG pO2 (83-108) mmHg ABG HCO3 (21-25) mmol/L ABG O2 Saturation (94-97) % Chloride (98-107) mmol/L Carbon Dioxide (22-30) mmol/L BUN (7-17) mg/dL Creatinine (0.52-1.04) mg/dL Glucose (74-99) mg/dL POC Glucose (mg/dL) (75-99) mg/dL Hemoglobin A1c (4.2-6.1) % Plasma Lactic Acid Maximus (0.7-2.0) mmol/L Calcium (8.4-10.2) mg/dL Phosphorus (2.5-4.5) mg/dL Troponin I 0.047 H* (0.000-0.034) ng/mL Total Protein (6.3-8.2) g/dL Albumin (3.5-5.0) g/dL Urine Appearance Cloudy H (Clear) Urine Protein 1+ H (Negative) Urine Blood Trace H (Negative) Ur Leukocyte Esterase Large H (Negative) Urine RBC 8 H (0-5) /hpf Urine WBC >182 H (0-5) /hpf Urine WBC Clumps Few H (None) /hpf Urine Bacteria Moderate H (None) /hpf Urine Mucus Rare H (None) /hpf Urine Yeast (Budding) Few H (None) /hpf 02/20/17 02/21/17 02/21/17 Range/Units 21:55 00:03 05:55 WBC 14.6 H (3.8-10.6) k/uL RBC 2.70 L (3.80-5.40) m/uL Hgb 8.0 L (11.4-16.0) gm/dL Hct 25.7 L (34.0-46.0) % RDW 17.3 H (11.5-15.5) % Neutrophils # 12.1 H (1.3-7.7) k/uL Lymphocytes # (Manual) (1.0-4.8) k/uL PT (9.0-12.0) sec INR (<1.2) ABG pCO2 34 L (35-45) mmHg ABG pO2 192 H (83-108) mmHg ABG HCO3 18 L (21-25) mmol/L ABG O2 Saturation 99.6 H (94-97) % Chloride (98-107) mmol/L Carbon Dioxide (22-30) mmol/L BUN (7-17) mg/dL Creatinine (0.52-1.04) mg/dL Glucose (74-99) mg/dL POC Glucose (mg/dL) 216 H (75-99) mg/dL Hemoglobin A1c (4.2-6.1) % Plasma Lactic Acid Maximus (0.7-2.0) mmol/L Calcium (8.4-10.2) mg/dL Phosphorus (2.5-4.5) mg/dL Troponin I (0.000-0.034) ng/mL Total Protein (6.3-8.2) g/dL Albumin (3.5-5.0) g/dL Urine Appearance (Clear) Urine Protein (Negative) Urine Blood (Negative) Ur Leukocyte Esterase (Negative) Urine RBC (0-5) /hpf Urine WBC (0-5) /hpf Urine WBC Clumps (None) /hpf Urine Bacteria (None) /hpf Urine Mucus (None) /hpf Urine Yeast (Budding) (None) /hpf 02/21/17 02/21/17 02/21/17 Range/Units 05:55 05:55 06:55 WBC (3.8-10.6) k/uL RBC (3.80-5.40) m/uL Hgb (11.4-16.0) gm/dL Hct (34.0-46.0) % RDW (11.5-15.5) % Neutrophils # (1.3-7.7) k/uL Lymphocytes # (Manual) (1.0-4.8) k/uL PT (9.0-12.0) sec INR (<1.2) ABG pCO2 (35-45) mmHg ABG pO2 (83-108) mmHg ABG HCO3 (21-25) mmol/L ABG O2 Saturation (94-97) % Chloride 108 H (98-107) mmol/L Carbon Dioxide (22-30) mmol/L BUN 62 H (7-17) mg/dL Creatinine 3.00 H (0.52-1.04) mg/dL Glucose 146 H (74-99) mg/dL POC Glucose (mg/dL) 176 H (75-99) mg/dL Hemoglobin A1c 6.4 H (4.2-6.1) % Plasma Lactic Acid Maximus (0.7-2.0) mmol/L Calcium 8.2 L (8.4-10.2) mg/dL Phosphorus 5.2 H (2.5-4.5) mg/dL Troponin I (0.000-0.034) ng/mL Total Protein 6.1 L (6.3-8.2) g/dL Albumin 2.6 L (3.5-5.0) g/dL Urine Appearance (Clear) Urine Protein (Negative) Urine Blood (Negative) Ur Leukocyte Esterase (Negative) Urine RBC (0-5) /hpf Urine WBC (0-5) /hpf Urine WBC Clumps (None) /hpf Urine Bacteria (None) /hpf Urine Mucus (None) /hpf Urine Yeast (Budding) (None) /hpf 02/21/17 02/21/17 02/21/17 Range/Units 07:59 12:52 18:10 WBC (3.8-10.6) k/uL RBC (3.80-5.40) m/uL Hgb (11.4-16.0) gm/dL Hct (34.0-46.0) % RDW (11.5-15.5) % Neutrophils # (1.3-7.7) k/uL Lymphocytes # (Manual) (1.0-4.8) k/uL PT (9.0-12.0) sec INR (<1.2) ABG pCO2 (35-45) mmHg ABG pO2 263 H (83-108) mmHg ABG HCO3 (21-25) mmol/L ABG O2 Saturation 100.0 H (94-97) % Chloride (98-107) mmol/L Carbon Dioxide (22-30) mmol/L BUN (7-17) mg/dL Creatinine (0.52-1.04) mg/dL Glucose (74-99) mg/dL POC Glucose (mg/dL) 116 H 164 H (75-99) mg/dL Hemoglobin A1c (4.2-6.1) % Plasma Lactic Acid Maximus (0.7-2.0) mmol/L Calcium (8.4-10.2) mg/dL Phosphorus (2.5-4.5) mg/dL Troponin I (0.000-0.034) ng/mL Total Protein (6.3-8.2) g/dL Albumin (3.5-5.0) g/dL Urine Appearance (Clear) Urine Protein (Negative) Urine Blood (Negative) Ur Leukocyte Esterase (Negative) Urine RBC (0-5) /hpf Urine WBC (0-5) /hpf Urine WBC Clumps (None) /hpf Urine Bacteria (None) /hpf Urine Mucus (None) /hpf Urine Yeast (Budding) (None) /hpf Microbiology - Last 24 Hours (Table) 02/20/17 21:20 Urine Culture - Preliminary Urine,Catheterized Laboratory Results WBC 14.6 k/uL (3.8-10.6) H 02/21/17 05:55 RBC 2.70 m/uL (3.80-5.40) L 02/21/17 05:55 Hgb 8.0 gm/dL (11.4-16.0) L 02/21/17 05:55 Hct 25.7 % (34.0-46.0) L 02/21/17 05:55 MCV 95.0 fL (80.0-100.0) 02/21/17 05:55 MCH 29.6 pg (25.0-35.0) 02/21/17 05:55 MCHC 31.1 g/dL (31.0-37.0) 02/21/17 05:55 RDW 17.3 % (11.5-15.5) H 02/21/17 05:55 Plt Count 341 k/uL (150-450) 02/21/17 05:55 Neutrophils % 83 % 02/21/17 05:55 Neutrophils % (Manual) 48.0 % 02/20/17 21:20 Band Neutrophils % 36.0 % 02/20/17 21:20 Lymphocytes % 12 % 02/21/17 05:55 Lymphocytes % (Manual) 12.0 % 02/20/17 21:20 Monocytes % 3 % 02/21/17 05:55 Monocytes % (Manual) 3.0 % 02/20/17 21:20 Eosinophils % 0 % 02/21/17 05:55 Eosinophils % (Manual) 1.0 % 02/20/17 21:20 Basophils % 0 % 02/21/17 05:55 Neutrophils # 12.1 k/uL (1.3-7.7) H 02/21/17 05:55 Neutrophils # (Manual) 6.4 k/uL (1.3-7.7) 02/20/17 21:20 Lymphocytes # 1.7 k/uL (1.0-4.8) 02/21/17 05:55 Lymphocytes # (Manual) 0.9 k/uL (1.0-4.8) L 02/20/17 21:20 Monocytes # 0.5 k/uL (0-1.0) 02/21/17 05:55 Monocytes # (Manual) 0.2 k/uL (0-1.0) 02/20/17 21:20 Eosinophils # 0.0 k/uL (0-0.7) 02/21/17 05:55 Eosinophils # (Manual) 0.1 k/uL (0-0.7) 02/20/17 21:20 Basophils # 0.0 k/uL (0-0.2) 02/21/17 05:55 Nucleated RBCs 0 /100 WBC (0-0) 02/20/17 21:20 Manual Slide Review Performed 02/20/17 21:20 Hypochromasia Slight 02/21/17 05:55 Anisocytosis Slight 02/21/17 05:55 PT 12.4 sec (9.0-12.0) H 02/20/17 21:20 INR 1.3 (<1.2) H 02/20/17 21:20 APTT 28.0 sec (22.0-30.0) 02/20/17 21:20 [facility] 02/21/17 07:59 ABG pH 7.39 (7.35-7.45) 02/21/17 07:59 ABG pCO2 38 mmHg (35-45) 02/21/17 07:59 ABG pO2 263 mmHg (83-108) H 02/21/17 07:59 ABG HCO3 22 mmol/L (21-25) 02/21/17 07:59 ABG Total CO2 23 mmol/L (19-24) 02/21/17 07:59 ABG O2 Saturation 100.0 % (94-97) H 02/21/17 07:59 ABG Base Excess -2.0 mmol/L 02/21/17 07:59 FiO2 100 % 02/21/17 07:59 Sodium 144 mmol/L (137-145) 02/21/17 05:55 Potassium 4.8 mmol/L (3.5-5.1) 02/21/17 05:55 Chloride 108 mmol/L (98-107) H 02/21/17 05:55 Carbon Dioxide 22 mmol/L (22-30) 02/21/17 05:55 Anion Gap 14 mmol/L 02/21/17 05:55 BUN 62 mg/dL (7-17) H 02/21/17 05:55 Creatinine 3.00 mg/dL (0.52-1.04) H 02/21/17 05:55 Est GFR (MDRD) Af Amer 19 (>60 ml/min/1.73 sqM) 02/21/17 05:55 Est GFR (MDRD) Non-Af 16 (>60 ml/min/1.73 sqM) 02/21/17 05:55 Glucose 146 mg/dL (74-99) H 02/21/17 05:55 POC Glucose (mg/dL) 164 mg/dL (75-99) H 02/21/17 18:10 POC Glu [employer] Worker ID Sonali Howard 02/21/17 18:[address] Glu mg/dL 137 mg/dL 02/21/17 05:55 Hemoglobin A1c 6.4 % (4.2-6.1) H 02/21/17 05:55 Lactic Ac Sepsis Rflx Y 02/20/17 21:47 Plasma Lactic Acid Maximus 1.9 mmol/L (0.7-2.0) 02/21/17 01:03 Calcium 8.2 mg/dL (8.4-10.2) L 02/21/17 05:55 Phosphorus 5.2 mg/dL (2.5-4.5) H 02/21/17 05:55 Magnesium 2.0 mg/dL (1.6-2.3) 02/21/17 05:55 Total Bilirubin 0.3 mg/dL (0.2-1.3) 02/21/17 05:55 AST 22 U/L (14-36) 02/21/17 05:55 ALT 29 U/L (9-52) 02/21/17 05:55 Alkaline Phosphatase 107 U/L (38-126) 02/21/17 05:55 Troponin I 0.047 ng/mL (0.000-0.034) H* 02/20/17 21:20 Total Protein 6.1 g/dL (6.3-8.2) L 02/21/17 05:55 Albumin 2.6 g/dL (3.5-5.0) L 02/21/17 05:55 Urine Color Yellow 02/20/17 21:20 Urine Appearance Cloudy (Clear) H 02/20/17 21:20 Urine pH 5.5 (5.0-8.0) 02/20/17 21:20 Ur Specific [place] 1.012 (1.001-1.035) 02/20/17 21:20 Urine Protein 1+ (Negative) H 02/20/17 21:20 Urine Glucose (UA) Negative (Negative) 02/20/17 21:20 Urine Ketones Negative (Negative) 02/20/17 21:20 Urine Blood Trace (Negative) H 02/20/17 21:20 Urine Nitrite Negative (Negative) 02/20/17 21:20 Urine Bilirubin Negative (Negative) 02/20/17 21:20 Urine Urobilinogen <2.0 mg/dL (<2.0) 02/20/17 21:20 Ur Leukocyte Esterase Large (Negative) H 02/20/17 21:20 Urine RBC 8 /hpf (0-5) H 02/20/17 21:20 Urine WBC >182 /hpf (0-5) H 02/20/17 21:20 Urine WBC Clumps Few /hpf (None) H 02/20/17 21:20 Ur Squamous Epith Cells 1 /hpf (0-4) 02/20/17 21:20 Urine Bacteria Moderate /hpf (None) H 02/20/17 21:20 Urine Mucus Rare /hpf (None) H 02/20/17 21:20 Urine Yeast (Budding) Few /hpf (None) H 02/20/17 21:20 Microbiology 02/20/17 21:20 Urine,Catheterized Urine Culture - Preliminary Assessment and Plan (1) Septic shock Narrative/Plan: 66-year-old female with multiple medical troubles presents as a transfer from an outside hospital with evidence of hypotension, respiratory failure and sepsis. She required intubation and mechanical ventilation. She remains on the ventilator. Oxygenation is improving as is her acidosis. She over does have septic shock requiring fluid resuscitation and vasopressor therapy and has evidence of acute renal failure as well as altered mental status. There are recent cultures that show evidence of MRSA and Proteus from her infected left leg. With this antibiotic therapy is utilized with Ceftaroline with pharmacy dosing. Cultures are in process of blood urine and sputum which may further help direct her therapy. Her prognosis is very poor given the current circumstances. Leukocytosis is due to her sepsis Her chronic anemia has worsened, and despite her obesity has evidence of moderate protein calorie malnutrition. Status: Acute (2) Respiratory failure Status: Acute (3) Leukocytosis Status: Acute (4) Acute renal failure (ARF) Status: Acute
[2017-02-21] MEDS: CEFTAROLINE FOSAMIL 600 MG in SODIUM CHLORIDE 0.9% 250 ML IVPB SCH (21:24)
[2017-02-22] MEDS: INSULIN LISPRO (humaLOG) 300 UNIT/3 ML VIAL SQ SCH ×4 (01:28→18:58)
[2017-02-22 01:29] LABS: Glucose,Whole Blood 182 mg/dL (75-99)
[2017-02-22] MEDS: ACETAMINOPHEN SUPPOSITORY 650 MG SUPP RECTAL PRN ×2 (01:31→16:57)
[2017-02-22] MEDS: IPRATROPIUM-ALBUTEROL 3 ML NEB INHALATION SCH ×7 (03:00→22:58)
[2017-02-22 04:30] LABS: Anisocytosis Slight; CH 29.5; CHCM 30.8; HCT 24.7 % (34.0-46.0); HDW 2.71; HGB 7.7 gm/dL (11.4-16.0); Hypochromasia Slight; MCH 30.2 pg (25.0-35.0); MCHC 31.4 g/dL (31.0-37.0); MCV 96.1 fL (80.0-100.0); Macrocytosis Slight; Mean Platelet Volume 9.1; RBC 2.57 m/uL (3.80-5.40); RDW 17.7 % (11.5-15.5); WBC 10.9 k/uL (3.8-10.6)
[2017-02-22] MEDS: PROPOFOL 1,000 MG/100 ML VIAL IV SCH (04:31)
[2017-02-22 04:53] LABS: Calcium 8.5 mg/dL (8.4-10.2); Magnesium 1.9 mg/dL (1.6-2.3); Phosphorous 3.7 mg/dL (2.5-4.5); Potassium 3.8 mmol/L (3.5-5.1); Total Bilirubin 0.3 mg/dL (0.2-1.3); Total Protein 5.8 g/dL (6.3-8.2)
[2017-02-22 06:00] LABS: ABG Base Excess -3.5 mmol/L; ABG HCO3 21 mmol/L (21-25); ABG PCO2 35 mmHg (35-45); ABG PH 7.39 (7.35-7.45); ABG PO2 100 mmHg (83-108); ABG TCO2 22 mmol/L (19-24)
[2017-02-22] MEDS: SODIUM CHLORIDE 0.9% 1,000 ML IV SCH ×2 (06:21→18:05)
[2017-02-22 06:26] LABS: Glucose,Whole Blood 166 mg/dL (75-99)
--- NOTE | 2017-02-22 08:13 | P.PN ---
Subjective Principal diagnosis: Altered mental status This is a 66-year-old white female who essentially was found a toxic with element of aspiration pneumonia. She has had element of sepsis and has significant issues related to left lower DVT which is chronic. Multiple consultants are on. We will go ahead and consult neurology given her mental issues. She has developed atrial fibrillation with rapid ventricular response. We will go ahead and start Cardizem drip with cardiology consultation. Appreciate multiple consultants input otherwise. Supposedly, she is starting follow commands which is quite a good sign. Objective - Vital Signs Vital signs: Vital Signs Temp 98.9 F 02/22/17 04:00 Pulse 128 H 02/22/17 06:00 Resp 22 02/22/17 06:00 BP 138/60 02/22/17 06:00 Pulse Ox 100 02/22/17 06:00 Intake & Output 02/21/17 02/22/17 02/22/17 18:59 06:59 18:59 Intake Total 1897.40 1934.919 Output Total 870 1240 Balance 1027.40 694.919 Weight 92.8 kg Intake: IV 1875 1875 Ceftaroline Fosamil 600 250 mg In Sodium Chloride 0.9 % 250 ml @ 250 mls/hr IVPB Q12HR [facility] Rx#: [id number] Levaquin 150 Nexium 50 Sodium Chloride 0.9% 1, 1375 1625 000 ml @ 125 mls/hr IV . Q8H [facility] Rx#:[id number] Zyvox 300 Intake, IV Titration 22.40 59.919 Amount Midazolam HCl 100 mg In 17.15 Sodium Chloride 0.9% 80 ml @ 1.4 MG/HR 1.4 mls/hr IV .Q24H [facility] Rx#: [id number] Norepinephrin 16 mg-0.9% 5.25 Ns Pmx 16 mg In 250 ml @ Titrate IV .Q0M [facility] Rx#: [id number] Propofol 1,000 mg In 100 59.919 ml @ Titrate IV .Q0M [facility] Rx#:[id number] Output: Urine 870 1240 Other: Voiding Method Indwelling Catheter Indwelling Catheter - Constitutional General appearance: Present: obese - EENT Eyes: Absent: abnormal pupil - Respiratory Respiratory: bilateral: rhonchi - Cardiovascular Rhythm: regular Heart sounds: normal: S1, S2 - Gastrointestinal General gastrointestinal: Present: soft. Absent: tenderness - Psychiatric Psychiatric: Absent: A&O x's 3 - Labs CBC & Chem 7: 02/22/17 04:20 02/22/17 04:20 Labs: Abnormal Lab Results - Last 24 Hours (Table) 02/21/17 02/21/17 02/21/17 Range/Units 05:55 07:59 12:52 WBC (3.8-10.6) k/uL RBC (3.80-5.40) m/uL Hgb (11.4-16.0) gm/dL Hct (34.0-46.0) % RDW (11.5-15.5) % ABG pO2 263 H (83-108) mmHg ABG O2 Saturation 100.0 H (94-97) % Chloride (98-107) mmol/L Carbon Dioxide (22-30) mmol/L BUN (7-17) mg/dL Creatinine (0.52-1.04) mg/dL Glucose (74-99) mg/dL POC Glucose (mg/dL) 116 H (75-99) mg/dL Hemoglobin A1c 6.4 H (4.2-6.1) % Total Protein (6.3-8.2) g/dL Albumin (3.5-5.0) g/dL 02/21/17 02/22/17 02/22/17 Range/Units 18:10 01:27 04:20 WBC (3.8-10.6) k/uL RBC (3.80-5.40) m/uL Hgb (11.4-16.0) gm/dL Hct (34.0-46.0) % RDW (11.5-15.5) % ABG pO2 (83-108) mmHg ABG O2 Saturation (94-97) % Chloride 111 H (98-107) mmol/L Carbon Dioxide 21 L (22-30) mmol/L BUN 54 H (7-17) mg/dL Creatinine 2.50 H (0.52-1.04) mg/dL Glucose 147 H (74-99) mg/dL POC Glucose (mg/dL) 164 H 182 H (75-99) mg/dL Hemoglobin A1c (4.2-6.1) % Total Protein 5.8 L (6.3-8.2) g/dL Albumin 2.4 L (3.5-5.0) g/dL 02/22/17 02/22/17 02/22/17 Range/Units 04:20 04:23 06:24 WBC 10.9 H (3.8-10.6) k/uL RBC 2.57 L (3.80-5.40) m/uL Hgb 7.7 L (11.4-16.0) gm/dL Hct 24.7 L (34.0-46.0) % RDW 17.7 H (11.5-15.5) % ABG pO2 (83-108) mmHg ABG O2 Saturation 98.0 H (94-97) % Chloride (98-107) mmol/L Carbon Dioxide (22-30) mmol/L BUN (7-17) mg/dL Creatinine (0.52-1.04) mg/dL Glucose (74-99) mg/dL POC Glucose (mg/dL) 166 H (75-99) mg/dL Hemoglobin A1c (4.2-6.1) % Total Protein (6.3-8.2) g/dL Albumin (3.5-5.0) g/dL Microbiology - Last 24 Hours (Table) 02/20/17 21:20 Blood Culture - Preliminary Blood No Growth after 24 hours 02/20/17 21:20 Urine Culture - Preliminary Urine,Catheterized Assessment and Plan (1) Septic shock Status: Acute (2) Acute renal failure (ARF) Status: Acute (3) Altered mental status Status: Acute (4) Cellulitis of left lower leg Status: Acute (5) Chronic deep vein thrombosis (DVT) of left popliteal vein Status: Acute (6) Encephalopathy acute Status: Acute (7) Failure of outpatient treatment Status: Acute (8) Atrial fibrillation with rapid ventricular response Status: Acute Plan: Continue current regimen of treatment with addition of Cardizem. Hopefully we can wean off of ventilation. Consult neurology for mental status issues. Question element of hypoxia for extended period of time. Question need for EEG. Check CBC and CMP in a.m. Gnosis is guarded
[2017-02-22] MEDS ORDERED: HEPARIN SODIUM,PORCINE 5,000 UNIT/ML 1 ML VIAL IV ONE (08:14)
[2017-02-22] MEDS ORDERED: HEPARIN SODIUM,PORCINE 5,000 UNIT/ML 1 ML VIAL IV PRN (08:14)
[2017-02-22] MEDS ORDERED: HEPARIN SODIUM,PORCINE/D5W PMX 25,000 UNIT in DEXTROSE/WATER 1 500ML.BAG IV SCH (08:15)
--- NOTE | 2017-02-22 08:23 | XR ---
EXAMINATION TYPE: XR chest 1V portable DATE OF EXAM: 02/22/2017 COMPARISON: Prior chest x-ray 02/21/2017 HISTORY: Intubated TECHNIQUE: Single frontal view of the chest is obtained. FINDINGS: Endotracheal tube, NG tube, right-sided central venous catheter are noted and are overlyin g appropriate positions. No pneumothorax or sizable effusion. Patchy basilar density is present bilat erally. Heart size is stable, patient is rotated. There are overlying cardiac leads. IMPRESSION: There may be basilar atelectasis, correlate for pneumonia versus edema, consider volume overload, pulmonary venous hypertension and interstitial edema.
[2017-02-22] MEDS: DILTIAZEM 125 MG in SODIUM CHLORIDE 0.9% 100 ML IV SCH (09:01)
[2017-02-22] MEDS: CHLORHEXIDINE GLUCONATE 15 ML CUP MUCOUS MEM SCH (09:45)
[2017-02-22] MEDS: CEFTAROLINE FOSAMIL 600 MG in SODIUM CHLORIDE 0.9% 250 ML IVPB SCH (09:45)
[2017-02-22] MEDS: ESOMEPRAZOLE 20 MG in SODIUM CHLORIDE 0.9% 50 ML IVPB SCH (09:45)
--- NOTE | 2017-02-22 10:23 | P.PN ---
Subjective This is a 66-year-old female patient who follows with Dr. Aidan delacruz as her primary care physician. She resides in the extended care facility and was transferred to [facility] emergency room with urinary tract infection pneumonia and altered mental status. She required intubation and mechanical ventilatory support based on her acute respiratory failure. This all occurred at [facility]. She was subsequently transferred here on 02/20/2017 to our intensive care unit. She is seen again today in follow-up. She remains intubated on the mechanical ventilator at settings of assist control of 14, tidal volume 380, FiO2 50% and a PEEP of 5. Arterial blood gases this morning revealed a PaO2 of 100%, pCO2 35, pH 7.39. She has a 0.9 normal saline at 125 mL per hour. She is currently on levo fed at 4 mcg/m. Propofol is on hold for sedation holiday. She is receiving tube feedings Vital 1.2 at a rate of 30 with a goal of 55. She had developed atrial fibrillation with rapid ventricular response which is new for her this morning. She is initiated on Cardizem drip at 5 mg per hour. Heparin drip per weight base protocol. Her chest x-ray shows basilar atelectasis with some pulmonary venous hypertension and interstitial edema. Current white count 10.9, hemoglobin 7.7, creatinine 2.50. She is covered with Teflaro. Objective - Vital Signs Vital signs: Vital Signs Temp 100.9 F H 02/22/17 08:00 Pulse 113 H 02/22/17 09:30 Resp 21 02/22/17 09:30 BP 83/48 02/22/17 09:30 Pulse Ox 96 02/22/17 09:30 Intake & Output 02/21/17 02/22/17 02/22/17 18:59 06:59 18:59 Intake Total 1897.40 1934.919 250 Output Total 870 1240 250 Balance 1027.40 694.919 0 Weight 92.8 kg Intake: IV 1875 1875 250 Ceftaroline Fosamil 600 250 mg In Sodium Chloride 0.9 % 250 ml @ 250 mls/hr IVPB Q12HR [facility] Rx#: [id number] Levaquin 150 Nexium 50 Sodium Chloride 0.9% 1, 1375 1625 250 000 ml @ 125 mls/hr IV . Q8H [facility] Rx#:[id number] Zyvox 300 Intake, IV Titration 22.40 59.919 Amount Midazolam HCl 100 mg In 17.15 Sodium Chloride 0.9% 80 ml @ 1.4 MG/HR 1.4 mls/hr IV .Q24H [facility] Rx#: [id number] Norepinephrin 16 mg-0.9% 5.25 Ns Pmx 16 mg In 250 ml @ Titrate IV .Q0M [facility] Rx#: [id number] Propofol 1,000 mg In 100 59.919 ml @ Titrate IV .Q0M [facility] Rx#:[id number] Output: Urine 870 1240 250 Other: Voiding Method Indwelling Catheter Indwelling Catheter - Exam GENERAL EXAM: Intubated, sedated. HEAD: Normocephalic. EYES: Normal reaction of pupils, equal size. NOSE: Clear with pink turbinates. THROAT: Oral endotracheal and gastric tube secured in place. No erythema or exudates. NECK: No masses, no JVD. CHEST: No chest wall deformity. LUNGS: Equal air entry with bilateral crackles crackles. CVS: S1 and S2 normal with no audible murmurs, regular rhythm. ABDOMEN: No hepatosplenomegaly, normal bowel sounds, no guarding or rigidity. Extremities: There is trace peripheral edema. No clubbing, no cyanosis. Peripheral pulses are intact. - Labs CBC & Chem 7: 02/22/17 04:20 02/22/17 04:20 Labs: Abnormal Lab Results - Last 24 Hours (Table) 02/21/17 02/21/17 02/21/17 Range/Units 05:55 12:52 18:10 WBC (3.8-10.6) k/uL RBC (3.80-5.40) m/uL Hgb (11.4-16.0) gm/dL Hct (34.0-46.0) % RDW (11.5-15.5) % ABG O2 Saturation (94-97) % Chloride (98-107) mmol/L Carbon Dioxide (22-30) mmol/L BUN (7-17) mg/dL Creatinine (0.52-1.04) mg/dL Glucose (74-99) mg/dL POC Glucose (mg/dL) 116 H 164 H (75-99) mg/dL Hemoglobin A1c 6.4 H (4.2-6.1) % Total Protein (6.3-8.2) g/dL Albumin (3.5-5.0) g/dL TSH (0.465-4.680) mIU/L 02/22/17 02/22/17 02/22/17 Range/Units 01:27 04:20 04:20 WBC 10.9 H (3.8-10.6) k/uL RBC 2.57 L (3.80-5.40) m/uL Hgb 7.7 L (11.4-16.0) gm/dL Hct 24.7 L (34.0-46.0) % RDW 17.7 H (11.5-15.5) % ABG O2 Saturation (94-97) % Chloride 111 H (98-107) mmol/L Carbon Dioxide 21 L (22-30) mmol/L BUN 54 H (7-17) mg/dL Creatinine 2.50 H (0.52-1.04) mg/dL Glucose 147 H (74-99) mg/dL POC Glucose (mg/dL) 182 H (75-99) mg/dL Hemoglobin A1c (4.2-6.1) % Total Protein 5.8 L (6.3-8.2) g/dL Albumin 2.4 L (3.5-5.0) g/dL TSH (0.465-4.680) mIU/L 02/22/17 02/22/17 02/22/17 Range/Units 04:20 04:23 06:24 WBC (3.8-10.6) k/uL RBC (3.80-5.40) m/uL Hgb (11.4-16.0) gm/dL Hct (34.0-46.0) % RDW (11.5-15.5) % ABG O2 Saturation 98.0 H (94-97) % Chloride (98-107) mmol/L Carbon Dioxide (22-30) mmol/L BUN (7-17) mg/dL Creatinine (0.52-1.04) mg/dL Glucose (74-99) mg/dL POC Glucose (mg/dL) 166 H (75-99) mg/dL Hemoglobin A1c (4.2-6.1) % Total Protein (6.3-8.2) g/dL Albumin (3.5-5.0) g/dL TSH 0.275 L (0.465-4.680) mIU/L Microbiology - Last 24 Hours (Table) 02/20/17 21:20 Blood Culture - Preliminary Blood No Growth after 24 hours 02/20/17 21:20 Urine Culture - Preliminary Urine,Catheterized Assessment and Plan Plan: Impression: #1 Acute hypoxic respiratory failure secondary to suspected pneumonia as well as evidence of fluid volume overload. #2 Acute on chronic kidney disease current creatinine 2.50. #3 New-onset atrial fibrillation, currently on a Cardizem drip as well as heparin drip. #4 Diabetes mellitus. #5 Hypertension. #6 Obstructive sleep apnea. #7 History of DVT, status post [place] filter placement. #8 Obesity with previous [place] bypass surgery. #9 History of lower extremity cellulitis previous MRSA. 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 #11 History of lower gastrointestinal bleeding. Plan: The patient was seen and evaluated by Dr. Webb. Her chest x-ray and labs were reviewed. He did have discussion with the patient's daughter by telephone who stated the patient was a DO NOT RESUSCITATE while at the extended care facility. She did not want any life support. We will await for her arrival to make further recommendations and place a DO NOT RESUSCITATE order if agreeable. Neurology consult is been placed. We'll continue with her current vent settings for now. We'll repeat a chest x-ray and ABGs in the a.m. We'll continue to follow and make further recommendations based on her clinical status. Critical care time 38 minutes.
--- NOTE | 2017-02-22 11:50 | ECHOF ---
Referral Reason:LV function; new afib rvr MEASUREMENTS -------- HEIGHT: 165.1 cm WEIGHT: 92.5 kg BP: 87/43 RVIDd: 4.1 cm (< 3.3) IVSd: 1.5 cm (0.6 - 1.1) LVIDd: 4.0 cm (3.9 - 5.3) LVPWd: 1.3 cm (0.6 - 1.1) IVSs: 1.6 cm LVIDs: 2.9 cm LVPWs: 1.3 cm LA Diam: 4.1 cm (2.7 - 3.8) LAESV Index (A-L): 59.23 ml/m MV EXCURSION: 12.364 mm (> 18.000) MV EF SLOPE: 64 mm/s (70 - 150) EPSS: 0.5 cm MV E Percy: 1.31 m/s MV DecT: 367 ms MV A Percy: 1.82 m/s MV E/A Ratio: 0.72 RAP: 20.00 mmHg RVSP: 56.04 mmHg FINDINGS -------- Undetermined rhythm. This was a technically adequate study. There is mild concentric left ventricular hypertrophy. Overall left ventricular systolic function is normal with, an EF between 55 - 60 %. Mitral Doppler inflow pattern suggests diastolic filling abnormality 17.14. The right ventricle is severely enlarged. LA is severely dilated >40 ml/m2 The right atrial size is normal. There is mild aortic valve sclerosis. There is no evidence of aortic regurgitation. Mild mitral regurgitation is present. The peak and mean MV gradients are 17.97mmHg 5.69mmHg as measured by doppler. MV Posterior leaflet is stenotic with decrease opening. Mild tricuspid regurgitation present. There is moderate pulmonary hypertension. The right ventricular systolic pressure, as measured by Doppler, is 56.04mmHg. Trace/mild (physiologic) pulmonic regurgitation. The aortic root size is normal. The inferior vena cava is dilated with no significant inspiratory collapse which is consistent estimated right atrial pressure of >20 mmHg. There is no pericardial effusion. CONCLUSIONS -------- 1. There is mild concentric left ventricular hypertrophy. 2. There is moderate pulmonary hypertension. 3. The right ventricular systolic pressure, as measured by Doppler, is 56.04mmHg. 4. Trace/mild (physiologic) pulmonic regurgitation. 5. The inferior vena cava is dilated with no significant inspiratory collapse which is consistent estimated right atrial pressure of >20 mmHg. 6. Overall left ventricular systolic function is normal with, an EF between 55 - 60 %. 7. The right ventricle is severely enlarged. 8. LA is severely dilated >40 ml/m2 9. There is mild aortic valve sclerosis. 10. Mild mitral regurgitation is present. 11. The peak and mean MV gradients are 17.97mmHg 5.69mmHg as measured by doppler. 12. MV Posterior leaflet is stenotic with decrease opening. 13. Mild tricuspid regurgitation present. MATHEMATICS INSTRUCTOR: Lyly Currie RDCS
--- NOTE | 2017-02-22 14:10 | P.CRDCN ---
History of Present Illness Consult date: 02/22/17 History of present illness: His is a 66-year-old female who was transferred from [facility] with a diagnosis of urinary tract infection, sepsis and possible pneumonia associated with mental status changes. Patient was intubated at [facility]. She is apparently and hypoxic respiratory failure. Patient is currently being treated with possible aspiration pneumonia and urosepsis. Patient also has history of diabetes mellitus, chronic kidney disease, history of deep venous thrombosis for which she had a Heyburn filter, history of GI bleeding, hypertension and also history for bariatric surgery in the past. We' re asked to see the patient because patient developed tachycardia this afternoon. His were felt that patient has atrial fibrillation and was initiated on IV Cardizem and also heparin. Close inspection of the EKG is suggestive of multifocal atrial tachycardia. At this point we'll going to discontinue heparin. Patient is in fact going to have endoscopy. Echo Cardigan showed good LV function with evidence of moderate to severe pulmonary hypertension. No further cardiac workup is suggested at this time Review of Systems Not obtained Past Medical History Past Medical History: Diabetes Mellitus, Deep Vein Thrombosis (DVT), Fibromyalgia, GI Bleed, Hypertension, Skin Disorder, Sleep Apnea/CPAP/BIPAP Additional Past Medical History / Comment(s): Pt recently fell (April 2016) and had L eye contusion/L lower leg laceration-surgically repaired/DVT L lower leg and acute blood loss anemia. Other HX: IDDM type II, DVT L leg, bilateral lower leg cellulitis with L lower leg cellulitis. rt heel pressure ulcer-SINCE HEALED, peripheral neuropathy bilateral hands and feet, falls, chronic UTI'S, bilateral tinnitis, hemorrhoids, migraines, obesity, high cholesterol, chronic back pain, eczema, sinus problems, sleep apnea no CPAP, stomach ulcers, lower GI bleed. 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 Past Anesthesia/Blood Transfusion Reactions: No Reported Reaction Additional Past Anesthesia/Blood Transfusion Reaction / Comment(s): pt has received blood in the past without reaction. Past Psychological History: Anxiety, Depression Additional Psychological History / Comment(s): Patient is now in extended care. No longer live independently. Does not have any significant family. Was a tobacco smoker stopping several years ago.She has history of smoking 1.5 pack per day for 27 years and quit in 1993. She drinks alcohol rarely. 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 No animal exposures. Smoking Status: Former smoker Past Alcohol Use History: Rare Additional Past Alcohol Use History / Comment(s): She has history of smoking 2 packs per day for 27 years and quit in 1993. She drinks alcohol rarely. 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 pt stated SHE HAS HOME CARE WITH VISITNG NURSES. uses a w/c Past Drug Use History: Marijuana, Marijuana Additional Drug Use History / Comment(s): pt admits to marujuana use when she is in a lot of pain. - Past Family History Father Family Medical History: Myocardial Infarction ([place]) Additional Family Medical History / Comment(s): AT AGE 46-[place] Mother Family Medical History: Diabetes Mellitus Additional Family Medical History / Comment(s): AT AGE 66 FROM COMPLICATIONS FROM DM Sister(s) Family Medical History: Diabetes Mellitus Brother(s) Family Medical History: Diabetes Mellitus Daughter(s) Family Medical History: Cancer Son(s) Family Medical History: No Reported History Medications and Allergies Home Medications Medication Instructions Recorded Confirmed Type Atorvastatin [Lipitor] 40 mg PO HS 08/30/15 02/20/17 History Allopurinol [Zyloprim] 100 mg PO BID 05/21/16 02/20/17 History Calcium Carbonate/Vitamin D3 1 tab PO DAILY 05/21/16 02/20/17 History [Calcium 600-Vit D3 400 Caplet] Furosemide [Lasix] 80 mg PO QAM 05/21/16 02/20/17 History metFORMIN HCL 1,000 mg PO BID 05/21/16 02/20/17 History Cholecalciferol [Vitamin D3] 1,000 unit PO DAILY 06/29/16 02/20/17 History Ferrous Sulfate [Iron (65 MG 650 mg PO DAILY 06/29/16 02/20/17 History Elemental)] Magnesium Hydroxide [Milk of 2,400 mg PO DAILY PRN 06/29/16 02/20/17 History Magnesia] Polyethylene Glycol 3350 [Miralax] 17 gm PO DAILY 06/29/16 02/20/17 History Acetaminophen [Tylenol] 650 mg PO Q4H PRN 10/27/16 02/20/17 History INSULIN LISPRO (humaLOG) [humaLOG See Protocol SQ QID 11/28/16 02/20/17 History (formulary)] rOPINIRole HCL [Requip] 0.25 mg PO HS 11/29/16 02/20/17 History Ranitidine HCl [Zantac] 150 mg PO HS 01/12/17 02/20/17 History Bisacodyl [Dulcolax] 10 mg PO DAILY PRN 01/26/17 02/20/17 History Sulfamethox-Tmp 800-160Mg [Bactrim 1 tab PO BID 02/16/17 02/20/17 History DS 800-160 mg] Bisacodyl [Dulcolax] 10 mg RECTAL DAILY PRN 02/20/17 02/20/17 History Cranberry Fruit Concentrate 900 mg PO DAILY 02/20/17 02/20/17 History [Cranberry] DULoxetine HCL [Cymbalta] 60 mg PO DAILY 02/20/17 02/20/17 History L.acidoph,Paracasei, B.lactis 2 cap PO DAILY 02/20/17 02/20/17 History [Probiotic] Multivitamins, Thera [Multivitamin 1 tab PO DAILY 02/20/17 02/20/17 History (formulary)] Na Phos,M-B/Na Phos,Di-Ba [Fleet 133 ml RECTAL DAILY PRN 02/20/17 02/20/17 History Adult] Sennosides-Docusate Sodium 1 tab PO DAILY 02/20/17 02/20/17 History [Senokot-S] tiZANidine HCL 4 mg PO DAILY 02/20/17 02/20/17 History Allergies Allergy/AdvReac Type Severity Reaction Status Date / Time adhesive tape Allergy Severe Rash/Hives Verified 02/16/17 11:34 cephalexin monohydrate Allergy Severe Rash/Hives Verified 02/16/17 11:34 [From Keflex] influenza virus vaccine, Allergy Severe Anaphylaxis Verified 02/16/17 11:34 specific [influenza virus vacc,specific] latex Allergy Severe Rash/Hives Verified 02/16/17 11:34 peanut Allergy Severe Anaphylaxis Verified 02/16/17 11:34 Penicillins Allergy Severe Swelling Verified 02/16/17 11:34 tetanus toxoid, adsorbed Allergy Intermediate Rash/Hives Verified 02/16/17 11:34 Physical Exam Vitals: Vital Signs Temp Pulse Resp BP Pulse Ox 02/22/17 12:30 117 H 14 126/67 98 02/22/17 12:00 100.6 F H 127 H 14 119/62 98 02/22/17 11:30 123 H 20 90/50 97 02/22/17 11:06 112 H 02/22/17 11:00 136 H 14 122/60 100 02/22/17 10:54 108 H 02/22/17 10:30 126 H 18 129/61 98 02/22/17 10:00 127 H 22 126/63 97 02/22/17 09:30 113 H 21 83/48 96 02/22/17 09:00 132 H 17 116/56 98 02/22/17 08:30 135 H 21 114/61 98 02/22/17 08:00 100.9 F H 117 H 14 119/61 97 02/22/17 07:30 118 H 11 L 121/65 99 02/22/17 07:00 126 H 7 L 130/64 99 02/22/17 06:30 119 H 10 L 119/61 100 02/22/17 06:00 128 H 22 138/60 100 02/22/17 05:30 118 H 22 134/55 100 02/22/17 05:00 121 H 25 H 120/50 100 02/22/17 04:30 119 H 23 95/48 100 02/22/17 04:00 98.9 F 114 H 25 H 113/59 100 02/22/17 03:30 114 H 23 116/50 99 02/22/17 03:13 112 H 02/22/17 03:00 116 H 20 113/52 98 02/22/17 02:30 113 H 25 H 93/47 98 02/22/17 02:00 121 H 22 109/55 97 02/22/17 01:30 116 H 23 126/57 98 02/22/17 01:00 121 H 22 121/52 97 02/22/17 00:30 138 H 20 120/60 96 02/22/17 00:00 100.1 F H 135 H 25 H 111/57 95 02/21/17 23:30 127 H 20 116/57 96 02/21/17 23:19 122 H 02/21/17 23:12 114 H 20 124/56 100 02/21/17 23:06 114 H 02/21/17 23:00 115 H 13 124/56 100 02/21/17 22:30 113 H 13 112/54 100 02/21/17 22:00 120 H 26 H 106/52 100 02/21/17 21:30 100.1 F H 110 H 13 113/53 100 02/21/17 21:00 114 H 11 L 110/52 99 02/21/17 20:30 116 H 12 109/51 99 02/21/17 20:08 116 H 02/21/17 20:00 99.5 F 110 H 14 111/57 100 02/21/17 19:52 108 H 02/21/17 19:30 124 H 10 L 114/55 99 02/21/17 19:00 114 H 16 109/56 100 02/21/17 18:30 115 H 16 93/55 99 02/21/17 18:00 115 H 15 121/58 98 02/21/17 17:30 119 H 19 116/59 98 02/21/17 17:00 124 H 18 118/50 98 02/21/17 16:30 118 H 19 109/57 98 02/21/17 16:00 99.6 F 98 16 101/52 99 02/21/17 15:43 113 H 02/21/17 15:30 110 H 10 L 103/58 99 02/21/17 15:27 110 H 02/21/17 15:00 110 H 23 96/62 98 02/21/17 14:30 109 H 14 110/50 98 Intake and Output 02/21/17 02/22/17 02/22/17 22:59 06:59 14:59 Intake Total 1400 1184.919 800 Output Total 625 915 390 Balance 775 269.919 410 Intake: IV 1400 1125 800 Ceftaroline Fosamil 600 250 250 mg In Sodium Chloride 0.9 % 250 ml @ 250 mls/hr IVPB Q12HR GUALBERTO Rx#: [id number] Esomeprazole 20 mg In 50 Sodium Chloride 0.9% 50 ml @ 100 mls/hr IVPB DAILY GUALBERTO Rx#:[id number] Levaquin 150 Sodium Chloride 0.9% 1, 1000 1125 500 000 ml @ 125 mls/hr IV . Q8H GUALBERTO Rx#:[id number] Intake, IV Titration 59.919 Amount Propofol 1,000 mg In 100 59.919 ml @ Titrate IV .Q0M GUALBERTO Rx#:[id number] Output: Urine 625 915 390 Other: Voiding Method Indwelling Catheter Indwelling Catheter Indwelling Catheter GENERAL EXAM: Patient is intubated HEENT: Normocephalic. Normal reaction of pupils, equal size, normal range of extraocular motion. No erythema or exudates in the throat. NECK: No masses, no nuchal rigidity. CHEST: No chest wall deformity. LUNGS: Diminished air exchange HEART: S1 and S2 normal with no audible mumurs or gallops. Regular rhythm, femorals equal on both sides.. ABDOMEN: Soft. SKIN: No rashes CENTRAL NERVOUS SYSTEM: No focal deficits. Results 02/22/17 04:20 02/22/17 04:20 Cardiac Enzymes 02/22/17 Range/Units 04:20 AST 24 (14-36) U/L CBC 02/22/17 Range/Units 04:20 WBC 10.9 H (3.8-10.6) k/uL RBC 2.57 L (3.80-5.40) m/uL Hgb 7.7 L (11.4-16.0) gm/dL Hct 24.7 L (34.0-46.0) % Plt Count 252 (150-450) k/uL Comprehensive Metabolic Panel 02/22/17 Range/Units 04:20 Sodium 145 (137-145) mmol/L Potassium 3.8 (3.5-5.1) mmol/L Chloride 111 H (98-107) mmol/L Carbon Dioxide 21 L (22-30) mmol/L BUN 54 H (7-17) mg/dL Creatinine 2.50 H (0.52-1.04) mg/dL Glucose 147 H (74-99) mg/dL Calcium 8.5 (8.4-10.2) mg/dL AST 24 (14-36) U/L ALT 30 (9-52) U/L Alkaline Phosphatase 116 (38-126) U/L Total Protein 5.8 L (6.3-8.2) g/dL Albumin 2.4 L (3.5-5.0) g/dL Current Medications Generic Name Dose Route Start Last Admin Trade Name Freq PRN Reason Stop Dose Admin Acetaminophen 650 mg 02/20/17 22:59 02/22/17 01:31 Tylenol Suppository RECTAL 650 mg Q4HR PRN Administration Fever And/ Or Mild Pain Albuterol/Ipratropium 3 ml 02/21/17 12:00 02/22/17 10:54 Duoneb 0.5 Mg-3 Mg/3 Ml Soln INHALATION 3 ml RT-Q4H GUALBERTO Administration Chlorhexidine Gluconate 15 ml 02/21/17 09:00 02/22/17 09:45 Peridex MUCOUS MEM 15 ml BID GUALBERTO Administration Heparin Sodium (Porcine) 5,000 unit 02/22/17 21:00 Heparin SQ Q12HR GUALBERTO Esomeprazole Magnesium 20 mg/ 50 mls @ 100 mls/hr 02/21/17 09:00 02/22/17 09: 45 Sodium Chloride IVPB 100 mls/hr DAILY GUALBERTO Administration Sodium Chloride 1,000 mls @ 125 mls/hr 02/20/17 23:00 02/22/17 06:21 Saline 0.9% IV 125 mls/hr .Q8H GUALBERTO Administration Norepinephrine Bitartrate 16 mg in 250 mls @ 0 mls/hr 02/21/17 04:00 07:45 Levophed-0.9% Nacl 16 Mg/250ml Pmx IV 4 mcg/min .Q0M GUALBERTO 3.75 mls/hr Protocol Titration Titrate Propofol 1,000 mg in 100 mls @ 0 mls/hr 07/31/17 09:45 02/22/17 04:31 Diprivan IV 10 mcg/kg/min .Q0M GUALBERTO 5.382 mls/hr Protocol Administration Titrate Ceftaroline Fosamil 600 mg/ 250 mls @ 250 mls/hr 02/21/17 21:00 02/22/17 09: 45 Sodium Chloride IVPB 250 mls/hr Q12HR GUALBERTO Administration Diltiazem HCl 125 mg/ Sodium 125 mls @ 5 mls/hr 02/22/17 08:30 02/22/17 09:01 Chloride IV 5 mg/hr .Q24H GUALBERTO 5 mls/hr Protocol Administration 5 MG/HR Insulin Human Lispro 0 unit 02/21/17 06:45 02/22/17 06:26 Humalog SQ 2 unit Q6H GUALBERTO Administration Protocol Multi-Ingred Cream/Lotion/Oil/Oint 1 applic 02/20/17 22:59 Lubrifresh Pm Ointment BOTH EYES Q4HR PRN Dry Eye(s) Naloxone HCl 0.2 mg 02/20/17 22:59 Narcan IV Q2M PRN Opioid Reversal Intake and Output 02/21/17 02/22/17 02/22/17 22:59 06:59 14:59 Intake Total 1400 1184.919 800 Output Total 625 915 390 Balance 775 269.919 410 Intake: IV 1400 1125 800 Ceftaroline Fosamil 600 250 250 mg In Sodium Chloride 0.9 % 250 ml @ 250 mls/hr IVPB Q12HR GUALEBRTO Rx#: [id number] Esomeprazole 20 mg In 50 Sodium Chloride 0.9% 50 ml @ 100 mls/hr IVPB DAILY GUALBERTO Rx#:[id number] Levaquin 150 Sodium Chloride 0.9% 1, 1000 1125 500 000 ml @ 125 mls/hr IV . Q8H GUALBERTO Rx#:[id number] Intake, IV Titration 59.919 Amount Propofol 1,000 mg In 100 59.919 ml @ Titrate IV .Q0M GUALBERTO Rx#:[id number] Output: Urine 625 915 390 Other: Voiding Method Indwelling Catheter Indwelling Catheter Indwelling Catheter 02/22/17 04:20 02/22/17 04:20 EKG Interpretations (text) Initial EKG showed sinus rhythm. Subsequent EKGs are suggestive of multifocal atrial tachycardia Assessment and Plan (1) Multifocal atrial tachycardia Status: Acute (2) Respiratory failure Status: Acute (3) Septic shock Status: Acute (4) Altered mental status Status: Acute (5) Anemia Status: Acute Plan: Cardiac consult was initiated because of atrial fibrillation. However EKGs are suggestive of multifocal atrial tachycardia. Her echocardiogram showed normal LV function. Patient doesn't need heparin or long-term anti-cognition. Calcium channel blockers may be used for rate control. As the lung function improves. Hopefully, her heart rate will be controlled better. Thank you again for letting us parts patent in the care of this patient.
[2017-02-22 14:16] LABS: ABG Base Excess -3.4 mmol/L; ABG HCO3 20 mmol/L (21-25); ABG PCO2 31 mmHg (35-45); ABG PH 7.43 (7.35-7.45); ABG PO2 93 mmHg (83-108); ABG TCO2 21 mmol/L (19-24)
[2017-02-22 14:24] LABS: Glucose,Whole Blood 160 mg/dL (75-99)
--- NOTE | 2017-02-22 14:42 | CDI ---
In responding to this query, please exercise your independent professional judgment. The [facility] Coding Staff and Clinical Documentation Specialists appreciate your assistance in clarifying documentation, maintaining compliance with coding guidelines, accurately documenting patients condition and capturing severity of illness. The fact that a question is asked does not imply that any particular answer is desired or expected. Communication forms are a method of clarifying documentation and are not made part of the Legal Health Record. Thank you in advance for your clarification. Last Revision, May 2015 Kristin Shearer [address] [facility] [place] [address] Documentation Clarification Form Date: 02/22/2017 2:32:00 PM Resubmitted 03/08/17 From: Liz Haynes, KAYLAN, CCDS Admit Date: 02/20/2017 11:10:00 PM Patient Name: Rain Lang Visit Number: [id number] Discharge Date: 03/03/17 Dr. Shelby Mckeon: A diagnosis of UTI has been documented in the ER note, the pulmonary/critical care consult & progress note. History/Risk factors: Resides in [facility] due to multiple falls, inability to ambulate. Hx frequent UTIs, pneumonia, MRSA, VRE infections, lower extremity cellulitis, IDDM. Per documentation in the nursing note this patient was admitted with an indwelling Coffey catheter. Clinical Indicators: Urinalysis: Cloudy, 1+ protein, trace blood, large esterase, WBC >182, Moderate bacteria. Urine culture: Gram Neg Bacilli, Gr D Enterococcus. Lab results: Blood culture & sputum culture pending. WBC 7.6-14.6, Hgb 7.6-8.0* , BUN 61^, Cr 3.10^, Gluc 179^, Lactic Acid 2.6^^. Treatment: IV Vanco, IV Levaquin, IV Norepinephrine, IV fluid, IV Narcan, IV fluid. In your professional opinion, can you please clarify the etiology of the UTI, if known? Coffey catheter Suprapubic catheter Urostomy UTI not related to catheter/urostomy Other condition, please specify Unable to determine If an infective organism is present, please specify cause and effect relationship if applicable. Please document in your progress notes and discharge summary in order to capture severity of illness and risk of mortality. Include clinical findings that support your diagnosis. FYI: Press F11 to launch patient chart MTDD
[2017-02-22 18:12] LABS: Glucose,Whole Blood 160 mg/dL (75-99)
[2017-02-22] MEDS: CEFTAROLINE FOSAMIL 300 MG in SODIUM CHLORIDE 0.9% 250 ML IVPB SCH (21:43)
[2017-02-22] MEDS: HEPARIN SODIUM,PORCINE 5,000 UNIT/ML 1 ML VIAL SQ SCH (21:43)
[2017-02-22] MEDS ORDERED: IPRATROPIUM-ALBUTEROL 3 ML NEB INHALATION PRN (22:58)
[2017-02-23 00:30] LABS: Glucose,Whole Blood 148 mg/dL (75-99)
[2017-02-23] MEDS: INSULIN LISPRO (humaLOG) 300 UNIT/3 ML VIAL SQ SCH ×5 (00:46→20:47)
[2017-02-23] MEDS: DILTIAZEM 125 MG in SODIUM CHLORIDE 0.9% 100 ML IV SCH (04:32)
[2017-02-23 04:52] LABS: Anisocytosis Slight; Basophils % (A) 0 %; CH 28.9; CHCM 30.4; Eosinophils % (A) 0 %; HCT 22.4 % (34.0-46.0); HDW 2.83; HGB 7.2 gm/dL (11.4-16.0); Hypochromasia Moderate; Luc # (Auto) 0.11; Luc % (Auto) 1; Lymphocytes # (A) 0.8 k/uL (1.0-4.8); Lymphocytes % (A) 9 %; MCH 30.7 pg (25.0-35.0); MCHC 32.1 g/dL (31.0-37.0); MCV 95.6 fL (80.0-100.0); Mean Platelet Volume 8.8; Monocytes # (A) 0.2 k/uL (0-1.0); Monocytes % (A) 2 %; Neutrophils # (A) 7.8 k/uL (1.3-7.7); Neutrophils % (A) 87 %; RBC 2.34 m/uL (3.80-5.40); RDW 17.3 % (11.5-15.5); WBC 8.9 k/uL (3.8-10.6); WBC (Perox) 8.84
[2017-02-23 04:54] LABS: INR 1.3 (<1.2); Prothrombin Time 12.6 sec (9.0-12.0)
[2017-02-23 04:59] LABS: Calcium 8.3 mg/dL (8.4-10.2); Phosphorous 3.4 mg/dL (2.5-4.5); Potassium 3.7 mmol/L (3.5-5.1); Total Bilirubin 0.4 mg/dL (0.2-1.3); Total Protein 5.5 g/dL (6.3-8.2)
[2017-02-23] MEDS ORDERED: Potassium Replacement Protocol 1 EACH MISC MISCELLANE PRN (08:40)
[2017-02-23 08:44] LABS: Glucose,Whole Blood 145 mg/dL (75-99)
[2017-02-23] MEDS: ESOMEPRAZOLE 20 MG in SODIUM CHLORIDE 0.9% 50 ML IVPB SCH (09:12)
[2017-02-23] MEDS: CEFTAROLINE FOSAMIL 300 MG in SODIUM CHLORIDE 0.9% 250 ML IVPB SCH ×2 (09:12→20:35)
--- NOTE | 2017-02-23 09:36 | P.PN ---
Subjective Principal diagnosis: Atrial fibrillation with sepsis. This is a continue progress on a 66-year-old white female who is essentially admitted for septic shock with episode of hypoxia, surprisingly she is recovering. EEG was done because of altered mental status which did not show new issue. Unfortunate, she has multiple comorbidities including obesity with chronic left lower extremity DVT and diabetes. No significant new complaints are stated. She is actually becoming more lucid. Question ability advance diet today. She had developed atrial fibrillation which is now back to normal. She is struggling with hypertension but is now extubated and doing well. Objective - Vital Signs Vital signs: Vital Signs Temp 97.8 F 02/23/17 08:00 Pulse 95 02/23/17 08:00 Resp 13 02/23/17 08:00 BP 101/52 02/23/17 08:00 Pulse Ox 93 L 02/23/17 08:00 Intake & Output 02/22/17 02/23/17 02/23/17 18:59 06:59 18:59 Intake Total 1430 864.833 55 Output Total 750 670 60 Balance 680 194.833 -5 Weight 89.3 kg Intake: IV 1430 620 55 Ceftaroline Fosamil 600 250 mg In Sodium Chloride 0.9 % 250 ml @ 250 mls/hr IVPB Q12HR GUALBERTO Rx#: [id number] Diltiazem 125 mg In 55 20 5 Sodium Chloride 0.9% 100 ml @ 5 MG/HR 5 mls/hr IV .Q24H GUALBERTO Rx#:[id number] Esomeprazole 20 mg In 50 Sodium Chloride 0.9% 50 ml @ 100 mls/hr IVPB DAILY GUALBERTO Rx#:[id number] Sodium Chloride 0.9% 1, 1075 600 50 000 ml @ 125 mls/hr IV . Q8H GUALBERTO Rx#:[id number] Intake, IV Titration 244.833 Amount Diltiazem 125 mg In 97.583 Sodium Chloride 0.9% 100 ml @ 5 MG/HR 5 mls/hr IV .Q24H GUALBERTO Rx#:[id number] Norepinephrin 16 mg-0.9% 147.25 Ns Pmx 16 mg In 250 ml @ Titrate IV .Q0M GUALBERTO Rx#: [id number] Output: Urine 750 670 60 Other: Voiding Method Indwelling Catheter Indwelling Catheter # Bowel Movements 0 0 - Constitutional General appearance: Present: obese - EENT Eyes: Absent: abnormal pupil - Respiratory Respiratory: bilateral: diminished - Cardiovascular Rhythm: regular Heart sounds: normal: S1, S2 - Gastrointestinal General gastrointestinal: Present: soft. Absent: tenderness - Labs CBC & Chem 7: 02/23/17 04:40 02/23/17 04:40 Labs: Abnormal Lab Results - Last 24 Hours (Table) 02/22/17 02/22/17 02/22/17 Range/Units 04:20 14:04 14:08 RBC (3.80-5.40) m/uL Hgb (11.4-16.0) gm/dL Hct (34.0-46.0) % RDW (11.5-15.5) % Neutrophils # (1.3-7.7) k/uL Lymphocytes # (1.0-4.8) k/uL PT (9.0-12.0) sec INR (<1.2) ABG pCO2 31 L (35-45) mmHg ABG HCO3 20 L (21-25) mmol/L ABG O2 Saturation 98.0 H (94-97) % Sodium (137-145) mmol/L Chloride (98-107) mmol/L Carbon Dioxide (22-30) mmol/L BUN (7-17) mg/dL Creatinine (0.52-1.04) mg/dL Glucose (74-99) mg/dL POC Glucose (mg/dL) 160 H (75-99) mg/dL Calcium (8.4-10.2) mg/dL Total Protein (6.3-8.2) g/dL Albumin (3.5-5.0) g/dL TSH 0.275 L (0.465-4.680) mIU/L Free T3 pg/mL 2.0 L (2.8-5.3) pg/ml 02/22/17 02/23/17 02/23/17 Range/Units 18:10 00:27 04:40 RBC (3.80-5.40) m/uL Hgb (11.4-16.0) gm/dL Hct (34.0-46.0) % RDW (11.5-15.5) % Neutrophils # (1.3-7.7) k/uL Lymphocytes # (1.0-4.8) k/uL PT (9.0-12.0) sec INR (<1.2) ABG pCO2 (35-45) mmHg ABG HCO3 (21-25) mmol/L ABG O2 Saturation (94-97) % Sodium 150 H (137-145) mmol/L Chloride 118 H (98-107) mmol/L Carbon Dioxide 20 L (22-30) mmol/L BUN 44 H (7-17) mg/dL Creatinine 2.10 H (0.52-1.04) mg/dL Glucose 131 H (74-99) mg/dL POC Glucose (mg/dL) 160 H 148 H (75-99) mg/dL Calcium 8.3 L (8.4-10.2) mg/dL Total Protein 5.5 L (6.3-8.2) g/dL Albumin 2.2 L (3.5-5.0) g/dL TSH (0.465-4.680) mIU/L Free T3 pg/mL (2.8-5.3) pg/ml 02/23/17 02/23/17 02/23/17 Range/Units 04:40 04:40 08:42 RBC 2.34 L (3.80-5.40) m/uL Hgb 7.2 L (11.4-16.0) gm/dL Hct 22.4 L (34.0-46.0) % RDW 17.3 H (11.5-15.5) % Neutrophils # 7.8 H (1.3-7.7) k/uL Lymphocytes # 0.8 L (1.0-4.8) k/uL PT 12.6 H (9.0-12.0) sec INR 1.3 H (<1.2) ABG pCO2 (35-45) mmHg ABG HCO3 (21-25) mmol/L ABG O2 Saturation (94-97) % Sodium (137-145) mmol/L Chloride (98-107) mmol/L Carbon Dioxide (22-30) mmol/L BUN (7-17) mg/dL Creatinine (0.52-1.04) mg/dL Glucose (74-99) mg/dL POC Glucose (mg/dL) 145 H (75-99) mg/dL Calcium (8.4-10.2) mg/dL Total Protein (6.3-8.2) g/dL Albumin (3.5-5.0) g/dL TSH (0.465-4.680) mIU/L Free T3 pg/mL (2.8-5.3) pg/ml Microbiology - Last 24 Hours (Table) 02/20/17 21:20 Blood Culture - Preliminary Blood No Growth after 48 hours 02/22/17 07:40 Gram Stain - Preliminary Sputum 02/20/17 21:20 Urine Culture - Preliminary Urine,Catheterized Gram Neg Bacilli Group D Enterococcus Assessment and Plan (1) Septic shock Status: Acute (2) Acute renal failure (ARF) Status: Acute (3) Altered mental status Status: Acute (4) Cellulitis of left lower leg Status: Acute (5) Chronic deep vein thrombosis (DVT) of left popliteal vein Status: Acute (6) Encephalopathy acute Status: Acute (7) Failure of outpatient treatment Status: Acute (8) Atrial fibrillation with rapid ventricular response Status: Acute Plan: If we can wean the patient off of the Cardizem drip and switch over to oral medication, I suspect we can transfer out of ICU within the next 24 hours. Check CBC and CMP in a.m. Appreciate multiple consultants including [employer] consultant, neurology with cardiology. Time with Patient: Greater than 30
[2017-02-23] MEDS: HEPARIN SODIUM,PORCINE 5,000 UNIT/ML 1 ML VIAL SQ SCH ×2 (09:37→20:36)
--- NOTE | 2017-02-23 09:49 | CONS ---
DATE OF CONSULTATION: 02/22/2017 CHIEF COMPLAINT: Altered mental status. HISTORY OF PRESENT ILLNESS: Mrs. Lang is a 66-year-old female who is being evaluated today on 02/22/2017 by the neurology service per the request of Dr. Bellamy for altered mental status. According to the chart, the patient has history of chronic encephalopathy and resides at a correction. The patient is somewhat bedbound with multiple bed sores and DVTs. She does have a history of [place] filter. She was brought into [facility] Emergency Room after she was found to be less responsive than usual. The patient was pretty confused. In the emergency room, she was quite hypoxic and had to be intubated. She was admitted into the intensive care unit. The patient was admitted to the hospital yesterday. At the time of my evaluation the patients respiratory status improved and she has been extubated. She is more awake and closer to her baseline now. She denies any headache. Her chest x-ray did show evidence of pneumonia and she is on antibiotic therapy. A CT scan of the brain was done which showed an old lacunar infarct involving the left internal capsule. Her comprehensive metabolic profile showed renal insufficiency with BUN of 61 and creatinine of 3.1. This has slightly improved today to 54 and 2.5 respectively with IV hydration. Her CBC showed mild leukocytosis at 10.9 and anemia with hemoglobin of 7.7 and hematocrit of 24%. Her TSH was low and her FT3 levels were low as well. I did review her EEG which showed evidence of moderate encephalopathy with no epileptiform discharges. PAST MEDICAL HISTORY: Diabetes, deep venous thrombosis, fibromyalgia, hypertension, obstructive sleep apnea, history of bariatric surgery, adenoidectomy, cholecystectomy, orthopedic surgeries, tonsillectomy, tubal ligation, Lizzy filter placement, history of depression and anxiety disorder. SOCIAL HISTORY: The patient is a former smoker. She rarely drinks alcohol. There is no history of any drug use. FAMILY HISTORY: Positive for heart disease and diabetes. HOME MEDICATIONS: Reviewed in the chart. ALLERGIES: ADHESIVE TAPE, KEFLEX, INFLUENZA VACCINE, PENICILLIN, TETANUS, LATEX. REVIEW OF SYSTEMS: As mentioned above and otherwise negative. PHYSICAL EXAM: Vital signs show a temperature of 98.0, pulse 115, respirations 17, blood pressure 114/59. GENERAL APPEARANCE: The patient is a mildly obese, elderly female, who appears to be in no acute distress. HEENT: Normocephalic, atraumatic. No facial asymmetry is seen. NECK: Supple with no masses felt. CARDIOVASCULAR: Regular rate and rhythm. ABDOMEN: Obese, nontender, nondistended. EXTREMITIES: Trace edema in the upper extremities. The patient has bilateral lower extremity braces and her left lower extremity is bandage due to bedsores. NEUROLOGICAL EXAM: Patient is awake and oriented to person only. She thought she was at home and she could not recall the year. She does move her upper extremities to command with strength of 4/5. She does not move her lower extremities, which is chronic to her according to the nursing staff. No obvious facial asymmetry is seen. No seizure like activity is noticed. IMPRESSION: 1. Altered mental status. 2. Multifactorial encephalopathy. 3. Renal insufficiency. 4. Pneumonia. 5. Anemia. 6. History of ischemic stroke. RECOMMENDATIONS: The patients altered mental status has improved. She likely has acute on top of chronic encephalopathy given her pneumonia, renal insufficiency, and hypoxia. Continue antibiotic therapy and continue IV hydration as tolerated. The patient does need to be on antiplatelet therapy given her history of ischemic stroke as seen on CT scan of the brain. This was not felt to be an acute event. I did review her EEG which did show evidence of moderate encephalopathy. Continue neuro checks. I will continue to follow with you. Further recommendations to follow. Thank you for allowing me to participate in the care of your patient. If you have any questions, please feel free to contact me. TRISTAN
[2017-02-23] MEDS: IPRATROPIUM-ALBUTEROL 3 ML NEB INHALATION SCH ×4 (09:57→20:22)
[2017-02-23] MEDS: SODIUM CHLORIDE 0.9% 1,000 ML IV SCH ×2 (10:06→12:13)
[2017-02-23] MEDS: POTASSIUM CHLORIDE 10 MEQ in WATER FOR INJECTION 1 100ML.BAG IVPB SCH ×2 (10:38→12:11)
--- NOTE | 2017-02-23 10:47 | P.PN ---
Subjective This is a 66-year-old female patient who follows with Dr. Aidan delacruz as her primary care physician. She resides in the extended care facility and was transferred to [place] emergency room with urinary tract infection pneumonia and altered mental status. She required intubation and mechanical ventilatory support based on her acute respiratory failure. This all occurred at [facility]. She was subsequently transferred here on 02/20/2017 to our intensive care unit. She is seen again today in follow-up. She remains intubated on the mechanical ventilator at settings of assist control of 14, tidal volume 380, FiO2 50% and a PEEP of 5. Arterial blood gases this morning revealed a PaO2 of 100%, pCO2 35, pH 7.39. She has a 0.9 normal saline at 125 mL per hour. She is currently on levo fed at 4 mcg/m. Propofol is on hold for sedation holiday. She is receiving tube feedings Vital 1.2 at a rate of 30 with a goal of 55. She had developed atrial fibrillation with rapid ventricular response which is new for her this morning. She is initiated on Cardizem drip at 5 mg per hour. Heparin drip per weight base protocol. Her chest x-ray shows basilar atelectasis with some pulmonary venous hypertension and interstitial edema. Current white count 10.9, hemoglobin 7.7, creatinine 2.50. She is covered with Teflaro. Patient is seen again today 02/23/2017 in follow-up in the intensive care unit. Her family did come in and make her DO NOT RESUSCITATE/DO NOT INTUBATE CODE STATUS. She was successfully extubated yesterday and is maintaining good O2 saturations in the 90s on 6 L/m per nasal cannula. Her levo fed has been off since 6:30 this morning. She has a 0.9 at 50 miles per hour. Cardizem 5 mg per hour. She is currently in normal sinus rhythm. Is afebrile. He had been seen by neurology who felt her acute on chronic encephalopathy is secondary to possible pneumonia, renal insufficiency and hypoxia. There is no evidence of ischemic stroke. No antiplatelet therapy was recommended. EEG did show evidence of moderate encephalopathy. The plan is for swallow evaluation today as well. Objective - Vital Signs Vital signs: Vital Signs Temp 97.8 F 02/23/17 08:00 Pulse 88 02/23/17 10:00 Resp 17 02/23/17 10:00 BP 115/50 02/23/17 10:00 Pulse Ox 94 L 02/23/17 10:00 Intake & Output 02/22/17 02/23/17 02/23/17 18:59 06:59 18:59 Intake Total 1430 864.833 80.167 Output Total 750 670 60 Balance 680 194.833 20.167 Weight 89.3 kg Intake: IV 1430 620 55 Ceftaroline Fosamil 600 250 mg In Sodium Chloride 0.9 % 250 ml @ 250 mls/hr IVPB Q12HR [facility] Rx#: [id number] Diltiazem 125 mg In 55 20 5 Sodium Chloride 0.9% 100 ml @ 5 MG/HR 5 mls/hr IV .Q24H [facility] Rx#:[id number] Esomeprazole 20 mg In 50 Sodium Chloride 0.9% 50 ml @ 100 mls/hr IVPB DAILY [facility] Rx#:[id number] Sodium Chloride 0.9% 1, 1075 600 50 000 ml @ 125 mls/hr IV . Q8H [facility] Rx#:[id number] Intake, IV Titration 244.833 25.167 Amount Diltiazem 125 mg In 97.583 25.167 Sodium Chloride 0.9% 100 ml @ 5 MG/HR 5 mls/hr IV .Q24H [facility] Rx#:[id number] Norepinephrin 16 mg-0.9% 147.25 Ns Pmx 16 mg In 250 ml @ Titrate IV .Q0M [facility]O Rx#: [id number] Output: Urine 750 670 60 Other: Voiding Method Indwelling Catheter Indwelling Catheter # Bowel Movements 0 0 - Exam GENERAL EXAM: In no acute distress. HEAD: Normocephalic. EYES: Normal reaction of pupils, equal size. NOSE: Clear with pink turbinates. THROAT: No erythema or exudates. NECK: No masses, no JVD. CHEST: No chest wall deformity. LUNGS: Equal air entry with bilateral crackles crackles. CVS: S1 and S2 normal with no audible murmurs, regular rhythm. ABDOMEN: No hepatosplenomegaly, normal bowel sounds, no guarding or rigidity. Extremities: There is trace peripheral edema. No clubbing, no cyanosis. Peripheral pulses are intact. - Labs CBC & Chem 7: 02/23/17 04:40 02/23/17 04:40 Labs: Abnormal Lab Results - Last 24 Hours (Table) 02/22/17 02/22/17 02/22/17 Range/Units 14:04 14:08 18:10 RBC (3.80-5.40) m/uL Hgb (11.4-16.0) gm/dL Hct (34.0-46.0) % RDW (11.5-15.5) % Neutrophils # (1.3-7.7) k/uL Lymphocytes # (1.0-4.8) k/uL PT (9.0-12.0) sec INR (<1.2) ABG pCO2 31 L (35-45) mmHg ABG HCO3 20 L (21-25) mmol/L ABG O2 Saturation 98.0 H (94-97) % Sodium (137-145) mmol/L Chloride (98-107) mmol/L Carbon Dioxide (22-30) mmol/L BUN (7-17) mg/dL Creatinine (0.52-1.04) mg/dL Glucose (74-99) mg/dL POC Glucose (mg/dL) 160 H 160 H (75-99) mg/dL Calcium (8.4-10.2) mg/dL Total Protein (6.3-8.2) g/dL Albumin (3.5-5.0) g/dL 02/23/17 02/23/17 02/23/17 Range/Units 00:27 04:40 04:40 RBC 2.34 L (3.80-5.40) m/uL Hgb 7.2 L (11.4-16.0) gm/dL Hct 22.4 L (34.0-46.0) % RDW 17.3 H (11.5-15.5) % Neutrophils # 7.8 H (1.3-7.7) k/uL Lymphocytes # 0.8 L (1.0-4.8) k/uL PT (9.0-12.0) sec INR (<1.2) ABG pCO2 (35-45) mmHg ABG HCO3 (21-25) mmol/L ABG O2 Saturation (94-97) % Sodium 150 H (137-145) mmol/L Chloride 118 H (98-107) mmol/L Carbon Dioxide 20 L (22-30) mmol/L BUN 44 H (7-17) mg/dL Creatinine 2.10 H (0.52-1.04) mg/dL Glucose 131 H (74-99) mg/dL POC Glucose (mg/dL) 148 H (75-99) mg/dL Calcium 8.3 L (8.4-10.2) mg/dL Total Protein 5.5 L (6.3-8.2) g/dL Albumin 2.2 L (3.5-5.0) g/dL 02/23/17 02/23/17 Range/Units 04:40 08:42 RBC (3.80-5.40) m/uL Hgb (11.4-16.0) gm/dL Hct (34.0-46.0) % RDW (11.5-15.5) % Neutrophils # (1.3-7.7) k/uL Lymphocytes # (1.0-4.8) k/uL PT 12.6 H (9.0-12.0) sec INR 1.3 H (<1.2) ABG pCO2 (35-45) mmHg ABG HCO3 (21-25) mmol/L ABG O2 Saturation (94-97) % Sodium (137-145) mmol/L Chloride (98-107) mmol/L Carbon Dioxide (22-30) mmol/L BUN (7-17) mg/dL Creatinine (0.52-1.04) mg/dL Glucose (74-99) mg/dL POC Glucose (mg/dL) 145 H (75-99) mg/dL Calcium (8.4-10.2) mg/dL Total Protein (6.3-8.2) g/dL Albumin (3.5-5.0) g/dL Microbiology - Last 24 Hours (Table) 02/20/17 21:20 Blood Culture - Preliminary Blood No Growth after 48 hours 02/22/17 07:40 Gram Stain - Preliminary Sputum 02/20/17 21:20 Urine Culture - Preliminary Urine,Catheterized Gram Neg Bacilli Group D Enterococcus Assessment and Plan Plan: Impression: #1 Acute hypoxic respiratory failure secondary to suspected pneumonia as well as evidence of fluid volume overload. #2 Acute on chronic kidney disease current creatinine 2.10. #3 New-onset atrial fibrillation, currently in normal sinus rhythm #4 Diabetes mellitus. #5 Hypertension. #6 Obstructive sleep apnea. #7 History of DVT, status post Lizzy filter placement. #8 Obesity with previous [place] bypass surgery. #9 History of lower extremity cellulitis previous MRSA. 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 #11 History of lower gastrointestinal bleeding. Plan: The patient was seen and evaluated by Dr. Webb. The patient is now a DO NOT RESUSCITATE/DO NOT INTUBATE CODE STATUS. Continue with her bronchodilators and antibiotics. Discontinue the Cardizem drip. She will be transferred out to the regular medical floor today. We'll continue to follow and make further recommendations based on her clinical status.
--- NOTE | 2017-02-23 12:01 | EEG ---
DATE OF SERVICE: 02/22/2017 REASON FOR TESTING: Altered mental status. DESCRIPTION OF THE PROCEDURE: This EEG was performed using a 21-channel, digital electroencephalograph, following International 10-20 System. DESCRIPTION OF THE RECORDING: From the beginning of the tracing and with the patients eyes closed, the background rhythm was mostly consisting of 6 to 7 Hz theta frequency in the posterior occipital leads. No obvious asymmetry is seen. Photic stimulation was performed with a minimal driving response seen. No pathological waves were elicited. Hyperventilation was not performed. Occasional muscle artifacts are seen. The patient remains awake throughout the tracing. No epileptiform discharges were noticed. Her EKG leads showed an irregularly irregular rhythm with tachycardic rate. INTERPRETATION: This awake EEG is abnormal due to the presence of generalized slowing of the background rhythm, mostly in the theta range. This is consistent with mild to moderate encephalopathy. Of note, her EKG lead showed an irregularly irregular rhythm with tachycardic rate. No epileptiform discharges were seen. The absence of epileptiform discharges does not rule out the diagnosis of epilepsy, therefore clinical correlation is recommended. TRISTAN
[2017-02-23 12:18] LABS: Glucose,Whole Blood 145 mg/dL (75-99)
--- NOTE | 2017-02-23 15:54 | P.PN ---
Subjective Principal diagnosis: Altered mental status Is 66-year-old female continuing be evaluated by the neurology service in the ICU for altered mental status. She has a history of chronic encephalopathy and resides in a senior living. He was brought to [facility] emergency room after being found less responsive than usual. Was hypoxic and required intubation. She is no longer intubated. She remains more awake and closer to her baseline. Speech therapy arrives at the end of my exam and will do her evaluation. CT of the brain showed an old lacunar infarct in the left internal capsule. Her EEG showed moderate encephalopathy. No evidence of seizure activity was seen. Objective - Vital Signs Vital signs: Vital Signs Temp 98.8 F 02/23/17 15:02 Pulse 94 02/23/17 15:38 Resp 18 02/23/17 15:02 BP 108/58 02/23/17 15:02 Pulse Ox 97 02/23/17 15:02 Intake & Output 02/22/17 02/23/17 02/23/17 18:59 06:59 18:59 Intake Total 1430 864.833 630.167 Output Total 750 670 535 Balance 680 194.833 95.167 Weight 89.3 kg Intake: IV 1430 620 205 Ceftaroline Fosamil 600 250 mg In Sodium Chloride 0.9 % 250 ml @ 250 mls/hr IVPB Q12HR [facility] Rx#: [id number] Diltiazem 125 mg In 55 20 5 Sodium Chloride 0.9% 100 ml @ 5 MG/HR 5 mls/hr IV .Q24H [facility] Rx#:[id number] Esomeprazole 20 mg In 50 Sodium Chloride 0.9% 50 ml @ 100 mls/hr IVPB DAILY [facility] Rx#:[id number] Sodium Chloride 0.9% 1, 1075 600 200 000 ml @ 50 mls/hr IV . Q20H [facility] Rx#:[id number] Intake, IV Titration 244.833 425.167 Amount Ceftaroline Fosamil 300 250 mg In Sodium Chloride 0.9 % 250 ml @ 250 mls/hr IVPB Q12HR [facility] Rx#: [id number] Diltiazem 125 mg In 97.583 25.167 Sodium Chloride 0.9% 100 ml @ 5 MG/HR 5 mls/hr IV .Q24H [facility] Rx#:[id number] Esomeprazole 20 mg In 50 Sodium Chloride 0.9% 50 ml @ 100 mls/hr IVPB DAILY [facility] Rx#:[id number] Norepinephrin 16 mg-0.9% 147.25 Ns Pmx 16 mg In 250 ml @ Titrate IV .Q0M [facility] Rx#: [id number] Potassium Chloride 10 meq 100 In Water For Injection 1 100ml.bag @ 100 mls/hr IVPB Q1H [facility] Rx#: [id number] Output: Urine 750 670 535 Other: Voiding Method Indwelling Catheter Indwelling Catheter Indwelling Catheter # Bowel Movements 0 0 1 - Constitutional General appearance: Present: average body habitus, no acute distress - EENT Eyes: Present: ptosis. Absent: abnormal pupil ENT: Present: hard of hearing - Neck Neck: Present: normal ROM. Absent: rigidity - Respiratory Respiratory: negative: prolonged expiration, prolonged inspiration - Cardiovascular Rhythm: regular - Gastrointestinal General gastrointestinal: Absent: distended, tenderness - Neurologic Neurologic Comment(s): Patient is awake but drowsy. She is oriented to person and partially to place. She has minimal movement of her lower extremities which is a chronic finding. Upper extremity strength remains 4 out of 5. There is no facial asymmetry. No tremors seizure-like activities are seen. Speech is soft but does not appear to be dysarthric. - Labs CBC & Chem 7: 02/23/17 04:40 02/23/17 14:32 Labs: Abnormal Lab Results - Last 24 Hours (Table) 02/22/17 02/23/17 02/23/17 Range/Units 18:10 00:27 04:40 RBC (3.80-5.40) m/uL Hgb (11.4-16.0) gm/dL Hct (34.0-46.0) % RDW (11.5-15.5) % Neutrophils # (1.3-7.7) k/uL Lymphocytes # (1.0-4.8) k/uL PT (9.0-12.0) sec INR (<1.2) Sodium 150 H (137-145) mmol/L Chloride 118 H (98-107) mmol/L Carbon Dioxide 20 L (22-30) mmol/L BUN 44 H (7-17) mg/dL Creatinine 2.10 H (0.52-1.04) mg/dL Glucose 131 H (74-99) mg/dL POC Glucose (mg/dL) 160 H 148 H (75-99) mg/dL Calcium 8.3 L (8.4-10.2) mg/dL Total Protein 5.5 L (6.3-8.2) g/dL Albumin 2.2 L (3.5-5.0) g/dL 02/23/17 02/23/17 02/23/17 Range/Units 04:40 04:40 08:42 RBC 2.34 L (3.80-5.40) m/uL Hgb 7.2 L (11.4-16.0) gm/dL Hct 22.4 L (34.0-46.0) % RDW 17.3 H (11.5-15.5) % Neutrophils # 7.8 H (1.3-7.7) k/uL Lymphocytes # 0.8 L (1.0-4.8) k/uL PT 12.6 H (9.0-12.0) sec INR 1.3 H (<1.2) Sodium (137-145) mmol/L Chloride (98-107) mmol/L Carbon Dioxide (22-30) mmol/L BUN (7-17) mg/dL Creatinine (0.52-1.04) mg/dL Glucose (74-99) mg/dL POC Glucose (mg/dL) 145 H (75-99) mg/dL Calcium (8.4-10.2) mg/dL Total Protein (6.3-8.2) g/dL Albumin (3.5-5.0) g/dL 02/23/17 Range/Units 12:16 RBC (3.80-5.40) m/uL Hgb (11.4-16.0) gm/dL Hct (34.0-46.0) % RDW (11.5-15.5) % Neutrophils # (1.3-7.7) k/uL Lymphocytes # (1.0-4.8) k/uL PT (9.0-12.0) sec INR (<1.2) Sodium (137-145) mmol/L Chloride (98-107) mmol/L Carbon Dioxide (22-30) mmol/L BUN (7-17) mg/dL Creatinine (0.52-1.04) mg/dL Glucose (74-99) mg/dL POC Glucose (mg/dL) 145 H (75-99) mg/dL Calcium (8.4-10.2) mg/dL Total Protein (6.3-8.2) g/dL Albumin (3.5-5.0) g/dL Microbiology - Last 24 Hours (Table) 02/20/17 21:20 Urine Culture - Preliminary Urine,Catheterized Proteus mirabilis Group D Enterococcus 02/20/17 21:20 Blood Culture - Preliminary Blood No Growth after 48 hours 02/22/17 07:40 Gram Stain - Preliminary Sputum Assessment and Plan (1) Encephalopathy chronic Status: Acute (2) Encephalopathy acute Status: Chronic (3) Renal insufficiency Status: Chronic (4) History of stroke Status: Suspected (5) Respiratory failure Status: Resolved (6) Altered mental status Status: Acute Plan: This patient's altered mental status continues to improve slightly. She has acute on chronic encephalopathy. Her acute symptoms are likely due to her pneumonia and hypoxia. Continue antibiotic therapy and IV hydration. There was an old stroke of undetermined age on her CAT scan. We would recommend aspirin 81 mg as a first choice. Continue neuro checks. Continue speech therapy. Swallowing study if needed. We can be contacted on an as-needed basis for significant changes in her neurological status. I have performed a history and physical on the above patient. I have reviewed the above note, and agree.
[2017-02-23] MEDS ORDERED: LEVOFLOXACIN 500MG-D5W PMX 500 MG in DEXTROSE/WATER 1 100ML.BAG IVPB SCH (17:00)
[2017-02-23 17:45] LABS: Glucose,Whole Blood 168 mg/dL (75-99)
[2017-02-23 20:26] LABS: Glucose,Whole Blood 141 mg/dL (75-99)
[2017-02-24 06:27] LABS: Anisocytosis Slight; Basophils % (A) 0 %; CHCM 30.2; Eosinophils # (A) 0.1 k/uL (0-0.7); Eosinophils % (A) 1 %; HCT 23.4 % (34.0-46.0); HDW 2.99; Hypochromasia Marked; Luc # (Auto) 0.08; Luc % (Auto) 1; Lymphocytes # (A) 0.8 k/uL (1.0-4.8); Lymphocytes % (A) 11 %; MCH 28.9 pg (25.0-35.0); MCHC 29.9 g/dL (31.0-37.0); MCV 96.7 fL (80.0-100.0); Macrocytosis Slight; Mean Platelet Volume 8.1; Monocytes # (A) 0.2 k/uL (0-1.0); Monocytes % (A) 3 %; Neutrophils # (A) 6.4 k/uL (1.3-7.7); Neutrophils % (A) 85 %; RBC 2.42 m/uL (3.80-5.40); RDW 17.7 % (11.5-15.5); WBC 7.5 k/uL (3.8-10.6); WBC (Perox) 7.62
[2017-02-24 06:33] LABS: INR 1.2 (<1.2); Prothrombin Time 11.9 sec (9.0-12.0)
[2017-02-24 06:54] LABS: Calcium 8.6 mg/dL (8.4-10.2); Phosphorous 2.8 mg/dL (2.5-4.5); Potassium 3.9 mmol/L (3.5-5.1); Total Bilirubin 0.4 mg/dL (0.2-1.3); Total Protein 5.6 g/dL (6.3-8.2)
[2017-02-24 07:00] LABS: Glucose,Whole Blood 144 mg/dL (75-99)
[2017-02-24] MEDS: INSULIN LISPRO (humaLOG) 300 UNIT/3 ML VIAL SQ SCH ×4 (07:49→20:15)
[2017-02-24] MEDS: HEPARIN SODIUM,PORCINE 5,000 UNIT/ML 1 ML VIAL SQ SCH ×2 (07:49→20:12)
[2017-02-24] MEDS: SODIUM CHLORIDE 0.9% 1,000 ML IV SCH (07:57)
[2017-02-24] MEDS: ESOMEPRAZOLE 20 MG in SODIUM CHLORIDE 0.9% 50 ML IVPB SCH (07:57)
[2017-02-24] MEDS: IPRATROPIUM-ALBUTEROL 3 ML NEB INHALATION SCH ×5 (08:07→20:25)
--- NOTE | 2017-02-24 08:28 | P.PN ---
Subjective Principal diagnosis: Continuing care with generalized weakness. This continue progress note on 66-year-old white female centimeter for septic shock with aspiration pneumonia. She has underlying history of atrial fibrillation. She is yesterday, transferred from the ICU. She still is significantly weak. We will start appropriate therapy and rehab order speech therapy to make sure that she can swallow appropriately given that she probably aspirated prior to admission is quite fatigued-appearing with minimal communication today. Objective - Vital Signs Vital signs: Vital Signs Temp 98.8 F 02/24/17 07:00 Pulse 96 02/24/17 08:23 Resp 18 02/24/17 08:11 BP 129/60 02/24/17 07:00 Pulse Ox 98 02/24/17 07:00 Intake & Output 02/23/17 02/24/17 02/24/17 18:59 06:59 18:59 Intake Total 630.167 280 Output Total 785 1000 Balance -154.833 -720 Weight 89 kg Intake: IV 205 280 Diltiazem 125 mg In 5 Sodium Chloride 0.9% 100 ml @ 5 MG/HR 5 mls/hr IV .Q24H [facility] Rx#:[id number] Esomeprazole 20 mg In 80 Sodium Chloride 0.9% 50 ml @ 100 mls/hr IVPB DAILY [facility] Rx#:[id number] Sodium Chloride 0.9% 1, 200 200 000 ml @ 50 mls/hr IV . Q20H [facility] Rx#:[id number] Intake, IV Titration 425.167 Amount Ceftaroline Fosamil 300 250 mg In Sodium Chloride 0.9 % 250 ml @ 250 mls/hr IVPB Q12HR [facility] Rx#: [id number] Diltiazem 125 mg In 25.167 Sodium Chloride 0.9% 100 ml @ 5 MG/HR 5 mls/hr IV .Q24H [facility] Rx#:[id number] Esomeprazole 20 mg In 50 Sodium Chloride 0.9% 50 ml @ 100 mls/hr IVPB DAILY [facility] Rx#:[id number] Potassium Chloride 10 meq 100 In Water For Injection 1 100ml.bag @ 100 mls/hr IVPB Q1H [facility] Rx#: [id number] Oral 0 Output: Urine 785 1000 Uretheral (Coffey) 1000 Other: Voiding Method Indwelling Catheter Indwelling Catheter # Bowel Movements 1 - Constitutional General appearance: Present: obese - EENT Eyes: Absent: abnormal pupil - Respiratory Respiratory: bilateral: diminished - Cardiovascular Rhythm: regular Heart sounds: normal: S1, S2 - Gastrointestinal General gastrointestinal: Present: soft. Absent: tenderness - Musculoskeletal Musculoskeletal: Present: generalized weakness - Labs CBC & Chem 7: 02/24/17 06:15 02/24/17 06:15 Labs: Abnormal Lab Results - Last 24 Hours (Table) 02/23/17 02/23/17 02/23/17 Range/Units 08:42 12:16 17:43 RBC (3.80-5.40) m/uL Hgb (11.4-16.0) gm/dL Hct (34.0-46.0) % MCHC (31.0-37.0) g/dL RDW (11.5-15.5) % Lymphocytes # (1.0-4.8) k/uL INR (<1.2) Sodium (137-145) mmol/L Chloride (98-107) mmol/L Carbon Dioxide (22-30) mmol/L BUN (7-17) mg/dL Creatinine (0.52-1.04) mg/dL Glucose (74-99) mg/dL POC Glucose (mg/dL) 145 H 145 H 168 H (75-99) mg/dL Total Protein (6.3-8.2) g/dL Albumin (3.5-5.0) g/dL 02/23/17 02/24/17 02/24/17 Range/Units 20:24 06:15 06:15 RBC 2.42 L (3.80-5.40) m/uL Hgb 7.0 L* (11.4-16.0) gm/dL Hct 23.4 L (34.0-46.0) % MCHC 29.9 L (31.0-37.0) g/dL RDW 17.7 H (11.5-15.5) % Lymphocytes # 0.8 L (1.0-4.8) k/uL INR (<1.2) Sodium 153 H (137-145) mmol/L Chloride 123 H* (98-107) mmol/L Carbon Dioxide 19 L (22-30) mmol/L BUN 35 H (7-17) mg/dL Creatinine 1.62 H (0.52-1.04) mg/dL Glucose 144 H (74-99) mg/dL POC Glucose (mg/dL) 141 H (75-99) mg/dL Total Protein 5.6 L (6.3-8.2) g/dL Albumin 2.2 L (3.5-5.0) g/dL 02/24/17 02/24/17 Range/Units 06:15 06:58 RBC (3.80-5.40) m/uL Hgb (11.4-16.0) gm/dL Hct (34.0-46.0) % MCHC (31.0-37.0) g/dL RDW (11.5-15.5) % Lymphocytes # (1.0-4.8) k/uL INR 1.2 H (<1.2) Sodium (137-145) mmol/L Chloride (98-107) mmol/L Carbon Dioxide (22-30) mmol/L BUN (7-17) mg/dL Creatinine (0.52-1.04) mg/dL Glucose (74-99) mg/dL POC Glucose (mg/dL) 144 H (75-99) mg/dL Total Protein (6.3-8.2) g/dL Albumin (3.5-5.0) g/dL Microbiology - Last 24 Hours (Table) 02/20/17 21:20 Blood Culture - Preliminary Blood No Growth after 72 hours 02/22/17 07:40 Gram Stain - Preliminary Sputum Sputum Culture - Preliminary 02/20/17 21:20 Urine Culture - Final Urine,Catheterized Proteus mirabilis Enterococcus faecalis Assessment and Plan (1) Septic shock Status: Acute (2) Acute renal failure (ARF) Status: Acute (3) Altered mental status Status: Acute (4) Cellulitis of left lower leg Status: Acute (5) Chronic deep vein thrombosis (DVT) of left popliteal vein Status: Acute (6) Encephalopathy acute Status: Acute (7) Failure of outpatient treatment Status: Acute (8) Atrial fibrillation with rapid ventricular response Status: Acute Plan: Advance diet as per speech therapy. PT/OT is also going to start today with evaluation. Check CBC and CMP in a.m. Replace hypokalemia as per protocol. Prognosis is improving but guarded. Discharge planning/executive secretary social welfare will also be consulted. Time with Patient: Greater than 30
--- NOTE | 2017-02-24 08:44 | CDI ---
In responding to this query, please exercise your independent professional judgment. The [facility] Coding Staff and Clinical Documentation Specialists appreciate your assistance in clarifying documentation, maintaining compliance with coding guidelines, accurately documenting patients condition and capturing severity of illness. The fact that a question is asked does not imply that any particular answer is desired or expected. Communication forms are a method of clarifying documentation and are not made part of the Legal Health Record. Thank you in advance for your clarification. Last Revision, May 2015 Kristin Shearer [address] [facility] [place] [address] Documentation Clarification Form Date: 02/24/2017 8:32:00 AM From: Liz Haynes CCS, CCDS Admit Date: 02/20/2017 11:10:00 PM Patient Name: Rain Lang Visit Number: [id number] Discharge Date: Dr. Thad Antunez: Encephalopathy is documented in the neurology consult as well as the neurology progress note of 02/23 as Acute on Chronic Encephalopathy. History/Risk factors: Chronic DVTs, Fibromyalgia, DM, Hypertension, multiple falls, chronic indwelling Coffey cath, MRSA & VRE. Clinical Indicators: 66 yo female admitted with Sepsis, Septic shock, Atrial Fibrillation Pneumonia & UTI. Labs: WBC 7.6 - 14.6, Hgb 7.6 - 8.0, BUN 61, Cr 3.10, Lactic Acid 2.6. Blood Gas : 34, pO2 192, HCO3 18, O2 Sat 99.6. EEG: Moderate encephalopathy CT Brain: Old lacunar injury. Treatment: IV antibiotics, IV hydration, O2 4-5Lnc, Neb Txs, IV Heparin, IV Cardizem. Admit to ICU initially. Consults: Pulmonary/Critical Care, Cardiology , Infectious disease, Neurology, Dietitian (tube feeds) In your professional opinion, can you please clarify the specific type of encephalopathy, if known? Anoxic Encephalopathy Hypertensive Encephalopathy Metabolic Encephalopathy Septic Encephalopathy Toxic Encephalopathy Other, please specify Unable to determine Please document in your progress notes and discharge summary in order to capture severity of illness and risk of mortality. Include clinical findings that support your diagnosis. FYI: Press F11 to launch patient chart. TRISTAN
--- NOTE | 2017-02-24 08:56 | CDI ---
In responding to this query, please exercise your independent professional judgment. The [facility] Coding Staff and Clinical Documentation Specialists appreciate your assistance in clarifying documentation, maintaining compliance with coding guidelines, accurately documenting patients condition and capturing severity of illness. The fact that a question is asked does not imply that any particular answer is desired or expected. Communication forms are a method of clarifying documentation and are not made part of the Legal Health Record. Thank you in advance for your clarification. Last Revision, May 2015 Kristin Shearer [address] [place] [address] Documentation Clarification Form Date: 02/24/2017 8:50:00 AM From: Liz Haynes CCS, CCDS Admit Date: 02/20/2017 11:10:00 PM Patient Name: Rain Lang Visit Number: [id number] Discharge Date: Dr. Willis Gurrola: Per the 02/22 attending progress note: the patient has developed atrial fibrillation. Cardiology was consulted, impression is atrial tachycardia per ECHO. History/Risk Factors: Hypertension, Fibromyalgia, DM, MRSA & VRE, chronic DVTs. Clinical Indicators: Presented with Sepsis & Septic shock d/t pneumonia & UTI. EKG/telemetry: R 104 sinus tachycardia Treatment: IV Heparin & IV Cardizem (now po), IV antibiotics, IV hydration. Consults: Cardiology, Neurology, Infectious Disease & Pulmonary/Critical Care. In your professional opinion, do you agree with the cardiology impression? If you are treating the patient for atrial fibrillation can you please clarify the type of atrial fibrillation, if known? Chronic/Permanent Paroxysmal Persistent Other, please specify Unable to determine Please document in your progress notes and discharge summary in order to capture severity of illness and risk of mortality. Include clinical findings that support your diagnosis. FYI: Press F11 to launch patient chart MTDD
[2017-02-24] MEDS: CEFTAROLINE FOSAMIL 300 MG in SODIUM CHLORIDE 0.9% 250 ML IVPB SCH ×2 (09:00→20:12)
--- NOTE | 2017-02-24 09:07 | CDI ---
In responding to this query, please exercise your independent professional judgment. The [facility] Coding Staff and Clinical Documentation Specialists appreciate your assistance in clarifying documentation, maintaining compliance with coding guidelines, accurately documenting patients condition and capturing severity of illness. The fact that a question is asked does not imply that any particular answer is desired or expected. Communication forms are a method of clarifying documentation and are not made part of the Legal Health Record. Thank you in advance for your clarification. Last Revision, May 2015 Kristin Shearer [address] [facility] [place] [address] Documentation Clarification Form Date: 02/24/2017 8:58:00 AM From: Liz Haynes CCS, CCDS Admit Date: 02/20/2017 11:10:00 PM Patient Name: Rain Lang Visit Number: [id number] Discharge Date: Dr. Everett Webb: 66 yo female patient presented with JELENA with a Creatinine of 3.4, lactic acidosis 5.5, bilateral pneumonia & UTI. Diagnosed with Acute on Chronic Kidney Disease per pulmonary/critical care consultation. Admitted with Sepsis w/Septic Shock, Pneumonia, UTI and developed Atrial Fibrillation. History/Risk Factors: Chronic DVTs, Chronic Indwelling Coffey Catheter, Fibromyalgia, Hypertension, DM, Obesity. Admission BUN: 61, Cr : 3.10, GFR: 15 Current BUN: 35, Cr: 1.62, GFR: 32 Treatment: IV Hydration, IV antibiotics, IV Heparin, IV Cardizem In order to capture the severity of condition, please clarify if the condition signifies: CKD Stage 1 (GFR > 90) CKD Stage 2 (GFR 60-89) CKD Stage 3 (GFR 30-59) CKD Stage 4 (GFR 15-29) CKD Stage 5 (GFR <15) ESRD Unable to determine Other condition, please specify Please document in your progress notes and discharge summary in order to capture severity of illness and risk of mortality. Include clinical findings that support your diagnosis. FYI: Press F11 to launch patient chart. TRISTAN
[2017-02-24] MEDS: ACETAMINOPHEN SUPPOSITORY 650 MG SUPP RECTAL PRN (09:54)
[2017-02-24] MEDS: SODIUM CHLORIDE 0.45% 1,000 ML IV SCH (10:35)
--- NOTE | 2017-02-24 12:46 | P.HPADDEND ---
H&P Addendum H&P Addendum Date: 02/24/17 Patient has moderate metobolic and septic ecephalopathy which is improving
[2017-02-24 13:56] LABS: Glucose,Whole Blood 204 mg/dL (75-99)
--- NOTE | 2017-02-24 14:36 | P.PN ---
Subjective Principal diagnosis: Altered mental status Is 66-year-old female continuing be evaluated by the neurology service in the ICU for altered mental status. She has a history of chronic encephalopathy and resides in a assisted. He was brought to [facility] emergency room after being found less responsive than usual. Was hypoxic and required intubation. She is no longer intubated. She remains more awake and closer to her baseline. Speech therapy arrives at the end of my exam and will do her evaluation. CT of the brain showed an old lacunar infarct in the left internal capsule. Her EEG showed moderate encephalopathy. No evidence of seizure activity was seen. At time of my exam today she is no longer in the ICU. She is resting in bed complaining of some abdominal pain. She has been taking clear liquids, and there were reports of somewhat coughing. Speech therapy is here at the time my exam today bedside swallow evaluation Objective - Vital Signs Vital signs: Vital Signs Temp 99.7 F H 02/24/17 13:44 Pulse 98 02/24/17 13:44 Resp 16 02/24/17 13:44 BP 123/65 02/24/17 13:44 Pulse Ox 98 02/24/17 07:00 Intake & Output 02/23/17 02/24/17 02/24/17 18:59 06:59 18:59 Intake Total 630.167 280 0 Output Total 785 1000 500 Balance -154.833 -720 -500 Weight 89 kg 89 kg Intake: IV 205 280 Diltiazem 125 mg In 5 Sodium Chloride 0.9% 100 ml @ 5 MG/HR 5 mls/hr IV .Q24H [facility] Rx#:[id number] Esomeprazole 20 mg In 80 Sodium Chloride 0.9% 50 ml @ 100 mls/hr IVPB DAILY [facility] Rx#:[id number] Sodium Chloride 0.9% 1, 200 200 000 ml @ 50 mls/hr IV . Q20H [facility] Rx#:[id number] Intake, IV Titration 425.167 Amount Ceftaroline Fosamil 300 250 mg In Sodium Chloride 0.9 % 250 ml @ 250 mls/hr IVPB Q12HR [facility] Rx#: [id number] Diltiazem 125 mg In 25.167 Sodium Chloride 0.9% 100 ml @ 5 MG/HR 5 mls/hr IV .Q24H [facility] Rx#:[id number] Esomeprazole 20 mg In 50 Sodium Chloride 0.9% 50 ml @ 100 mls/hr IVPB DAILY [facility] Rx#:[id number] Potassium Chloride 10 meq 100 In Water For Injection 1 100ml.bag @ 100 mls/hr IVPB Q1H [facility] Rx#: [id number] Oral 0 Blood Product 0 Rc As-3 Unit 0 [id number] Output: Urine 785 1000 500 Uretheral (Coffey) 1000 500 Other: Voiding Method Indwelling Catheter Indwelling Catheter Indwelling Catheter # Bowel Movements 1 - Constitutional General appearance: Present: no acute distress, obese - EENT Eyes: Absent: abnormal pupil, ptosis ENT: Present: hearing grossly normal - Neck Neck: Present: normal ROM. Absent: rigidity - Respiratory Respiratory: negative: prolonged expiration, prolonged inspiration - Cardiovascular Rhythm: regular - Gastrointestinal General gastrointestinal: Present: tenderness. Absent: distended - Neurologic Neurologic Comment(s): Patient is awake and drowsy. She is oriented to person only. There is no obvious facial asymmetry or lateralizing weakness. Funnel Coater strength is 4 out of 5 bilaterally. Tremors or seizure-like activities are seen. Follow simple commands, but is still quite confused. - Labs CBC & Chem 7: 02/24/17 06:15 02/24/17 06:15 Labs: Abnormal Lab Results - Last 24 Hours (Table) 02/23/17 02/23/17 02/24/17 Range/Units 17:43 20:24 06:15 RBC (3.80-5.40) m/uL Hgb (11.4-16.0) gm/dL Hct (34.0-46.0) % MCHC (31.0-37.0) g/dL RDW (11.5-15.5) % Lymphocytes # (1.0-4.8) k/uL INR (<1.2) Sodium 153 H (137-145) mmol/L Chloride 123 H* (98-107) mmol/L Carbon Dioxide 19 L (22-30) mmol/L BUN 35 H (7-17) mg/dL Creatinine 1.62 H (0.52-1.04) mg/dL Glucose 144 H (74-99) mg/dL POC Glucose (mg/dL) 168 H 141 H (75-99) mg/dL Total Protein 5.6 L (6.3-8.2) g/dL Albumin 2.2 L (3.5-5.0) g/dL Crossmatch 02/24/17 02/24/17 02/24/17 Range/Units 06:15 06:15 06:58 RBC 2.42 L (3.80-5.40) m/uL Hgb 7.0 L* (11.4-16.0) gm/dL Hct 23.4 L (34.0-46.0) % MCHC 29.9 L (31.0-37.0) g/dL RDW 17.7 H (11.5-15.5) % Lymphocytes # 0.8 L (1.0-4.8) k/uL INR 1.2 H (<1.2) Sodium (137-145) mmol/L Chloride (98-107) mmol/L Carbon Dioxide (22-30) mmol/L BUN (7-17) mg/dL Creatinine (0.52-1.04) mg/dL Glucose (74-99) mg/dL POC Glucose (mg/dL) 144 H (75-99) mg/dL Total Protein (6.3-8.2) g/dL Albumin (3.5-5.0) g/dL Crossmatch 02/24/17 02/24/17 Range/Units 08:33 13:53 RBC (3.80-5.40) m/uL Hgb (11.4-16.0) gm/dL Hct (34.0-46.0) % MCHC (31.0-37.0) g/dL RDW (11.5-15.5) % Lymphocytes # (1.0-4.8) k/uL INR (<1.2) Sodium (137-145) mmol/L Chloride (98-107) mmol/L Carbon Dioxide (22-30) mmol/L BUN (7-17) mg/dL Creatinine (0.52-1.04) mg/dL Glucose (74-99) mg/dL POC Glucose (mg/dL) 204 H (75-99) mg/dL Total Protein (6.3-8.2) g/dL Albumin (3.5-5.0) g/dL Crossmatch See Detail Microbiology - Last 24 Hours (Table) 02/22/17 07:40 Gram Stain - Preliminary Sputum Sputum Culture - Preliminary Presumptive Staph aureus 02/20/17 21:20 Blood Culture - Preliminary Blood No Growth after 72 hours 02/20/17 21:20 Urine Culture - Final Urine,Catheterized Proteus mirabilis Enterococcus faecalis Assessment and Plan (1) Encephalopathy chronic Status: Acute (2) Encephalopathy acute Status: Chronic (3) Renal insufficiency Status: Chronic (4) History of stroke Status: Suspected (5) Respiratory failure Status: Resolved (6) Altered mental status Status: Acute Plan: This patient's altered mental status continues to improve slightly. She has acute on chronic metabolic and septic encephalopathy that is still moderate. Time my exam she is undergoing a bedside swallowing evaluation. If there is concern over aspiration I do recommend a swallowing study. If this continues I would recommend repeat imaging of the brain. Continue antibiotic therapy and IV hydration. There was an old stroke of undetermined age on her CAT scan. We recommend aspirin 81 mg. Continue neuro checks. Continue speech therapy. Swallowing study if needed. I will continue to follow I have performed a history and physical on the above patient. I have reviewed the above note, and agree.
[2017-02-24 16:53] LABS: Glucose,Whole Blood 226 mg/dL (75-99)
[2017-02-24] MEDS: HYDROcodone/APAP 5-325MG 1 EACH TAB PO PRN (17:19)
[2017-02-24 20:57] LABS: Glucose,Whole Blood 165 mg/dL (75-99)
[2017-02-25] MEDS: HYDROcodone/APAP 5-325MG 1 EACH TAB PO PRN (04:29)
[2017-02-25] MEDS: SODIUM CHLORIDE 0.45% 1,000 ML IV SCH (04:31)
[2017-02-25 06:20] LABS: Anisocytosis Slight; Basophils % (A) 0 %; CH 29.5; CHCM 31.7; Eosinophils % (A) 0 %; HCT 26.9 % (34.0-46.0); HDW 3.93; Hypochromasia Moderate; Luc # (Auto) 0.09; Luc % (Auto) 2; Lymphocytes # (A) 0.8 k/uL (1.0-4.8); Lymphocytes % (A) 12 %; MCH 29.9 pg (25.0-35.0); MCHC 31.7 g/dL (31.0-37.0); MCV 94.4 fL (80.0-100.0); Macrocytosis Slight; Mean Platelet Volume 8.5; Monocytes # (A) 0.2 k/uL (0-1.0); Monocytes % (A) 4 %; Neutrophils # (A) 5.1 k/uL (1.3-7.7); Neutrophils % (A) 82 %; Poikilocytosis Slight; RBC 2.85 m/uL (3.80-5.40); RDW 18.8 % (11.5-15.5); WBC 6.2 k/uL (3.8-10.6); WBC (Perox) 6.66
[2017-02-25 06:23] LABS: INR 1.2 (<1.2); Prothrombin Time 11.7 sec (9.0-12.0)
[2017-02-25 06:24] LABS: HGB 8.5 gm/dL (11.4-16.0)
[2017-02-25 06:31] LABS: Calcium 9.1 mg/dL (8.4-10.2); Phosphorous 2.8 mg/dL (2.5-4.5); Potassium 3.5 mmol/L (3.5-5.1)
[2017-02-25 07:30] LABS: Glucose,Whole Blood 193 mg/dL (75-99)
[2017-02-25] MEDS: IPRATROPIUM-ALBUTEROL 3 ML NEB INHALATION SCH ×4 (07:31→19:08)
--- NOTE | 2017-02-25 08:50 | P.PN ---
Subjective Principal diagnosis: Continuing care with generalized weakness. The patient is 66-year-old white female centimeter for aspiration pneumonia with septic shock. She still having difficulty communicating. I suspect element of anoxic encephalopathy. Objective - Vital Signs Vital signs: Vital Signs Temp 98.8 F 02/25/17 07:00 Pulse 96 02/25/17 07:00 Resp 18 02/25/17 07:00 BP 137/70 02/25/17 07:00 Pulse Ox 95 02/25/17 07:00 Intake & Output 02/24/17 02/25/17 02/25/17 18:59 06:59 18:59 Intake Total 1440 530 Output Total 1250 600 Balance 190 -70 Weight 89 kg 88.5 kg Intake: IV 450 80 Esomeprazole 20 mg In 100 Sodium Chloride 0.9% 50 ml @ 100 mls/hr IVPB DAILY [facility] Rx#:[id number] Sodium Chloride 0.9% 1, 350 80 000 ml @ 50 mls/hr IV . Q20H [facility] Rx#:[id number] Intake, IV Titration 250 450 Amount Ceftaroline Fosamil 300 250 250 mg In Sodium Chloride 0.9 % 250 ml @ 250 mls/hr IVPB Q12HR [facility] Rx#: [id number] Sodium Chloride 0.45% 1, 200 000 ml @ 50 mls/hr IV . Q20H [facility] Rx#:[id number] Oral 120 Blood Product 620 Rc As-3 Unit 310 [id number] Output: Urine 1250 600 Uretheral (Coffey) 1000 Other: Voiding Method Indwelling Catheter Indwelling Catheter # Bowel Movements 1 - Constitutional General appearance: Present: obese - EENT Eyes: Absent: abnormal pupil - Respiratory Respiratory: bilateral: diminished - Cardiovascular Rhythm: regular Heart sounds: normal: S1, S2 - Gastrointestinal General gastrointestinal: Present: soft. Absent: tenderness - Labs CBC & Chem 7: 02/25/17 05:55 02/25/17 05:55 Labs: Abnormal Lab Results - Last 24 Hours (Table) 02/24/17 02/24/17 02/24/17 Range/Units 08:33 13:53 16:51 RBC (3.80-5.40) m/uL Hgb (11.4-16.0) gm/dL Hct (34.0-46.0) % RDW (11.5-15.5) % Lymphocytes # (1.0-4.8) k/uL INR (<1.2) Sodium (137-145) mmol/L Chloride (98-107) mmol/L Carbon Dioxide (22-30) mmol/L BUN (7-17) mg/dL Creatinine (0.52-1.04) mg/dL Glucose (74-99) mg/dL POC Glucose (mg/dL) 204 H 226 H (75-99) mg/dL Crossmatch See Detail 02/24/17 02/25/17 02/25/17 Range/Units 20:13 05:55 05:55 RBC 2.85 L (3.80-5.40) m/uL Hgb 8.5 L D (11.4-16.0) gm/dL Hct 26.9 L (34.0-46.0) % RDW 18.8 H (11.5-15.5) % Lymphocytes # 0.8 L (1.0-4.8) k/uL INR (<1.2) Sodium 155 H (137-145) mmol/L Chloride 124 H* (98-107) mmol/L Carbon Dioxide 18 L (22-30) mmol/L BUN 29 H (7-17) mg/dL Creatinine 1.20 H (0.52-1.04) mg/dL Glucose 190 H (74-99) mg/dL POC Glucose (mg/dL) 165 H (75-99) mg/dL Crossmatch 02/25/17 02/25/17 Range/Units 05:55 06:58 RBC (3.80-5.40) m/uL Hgb (11.4-16.0) gm/dL Hct (34.0-46.0) % RDW (11.5-15.5) % Lymphocytes # (1.0-4.8) k/uL INR 1.2 H (<1.2) Sodium (137-145) mmol/L Chloride (98-107) mmol/L Carbon Dioxide (22-30) mmol/L BUN (7-17) mg/dL Creatinine (0.52-1.04) mg/dL Glucose (74-99) mg/dL POC Glucose (mg/dL) 193 H (75-99) mg/dL Crossmatch Microbiology - Last 24 Hours (Table) 02/20/17 21:20 Blood Culture - Preliminary Blood No Growth after 96 hours 02/22/17 07:40 Gram Stain - Preliminary Sputum Sputum Culture - Preliminary Presumptive Staph aureus Assessment and Plan (1) Septic shock Status: Acute (2) Acute renal failure (ARF) Status: Acute (3) Altered mental status Status: Acute (4) Cellulitis of left lower leg Status: Acute (5) Chronic deep vein thrombosis (DVT) of left popliteal vein Status: Acute (6) Encephalopathy acute Status: Acute (7) Failure of outpatient treatment Status: Acute (8) Atrial fibrillation with rapid ventricular response Status: Acute Plan: Advance diet as per speech therapy. PT/OT is also going to start today with evaluation. Check CBC and CMP in a.m. Replace hypokalemia as per protocol. Prognosis is improving but guarded. Discharge planning/social group worker will also be consulted.
[2017-02-25] MEDS: ESOMEPRAZOLE 20 MG in SODIUM CHLORIDE 0.9% 50 ML IVPB SCH (09:13)
[2017-02-25] MEDS: INSULIN LISPRO (humaLOG) 300 UNIT/3 ML VIAL SQ SCH ×4 (09:13→22:34)
[2017-02-25] MEDS: HEPARIN SODIUM,PORCINE 5,000 UNIT/ML 1 ML VIAL SQ SCH ×2 (09:14→20:16)
[2017-02-25] MEDS: CEFTAROLINE FOSAMIL 300 MG in SODIUM CHLORIDE 0.9% 250 ML IVPB SCH ×2 (09:18→20:15)
[2017-02-25 11:54] LABS: Glucose,Whole Blood 200 mg/dL (75-99)
[2017-02-25] MEDS ORDERED: RX INFO: IV CONTRAST WAS GIVEN 1 EACH MISC MISCELLANE PRN (15:51)
[2017-02-25] MEDS ORDERED: ACETAMINOPHEN IV (For NPO) 1,000 MG in EMPTY BAG 1 BAG IVPB PRN (15:54)
--- NOTE | 2017-02-25 15:57 | P.PN ---
Subjective Principal diagnosis: Altered mental status Is 66-year-old female continuing be evaluated by the neurology service for altered mental status. She has a history of chronic encephalopathy and resides in a detention. She was brought to [facility] emergency room after being found less responsive than usual. Was hypoxic and required intubation. She is no longer intubated. She remains encephalopathic, with no significant change since yesterday. Speech therapy has evaluated and she is now nothing by mouth due to aspiration risk. CT of the brain showed an old lacunar infarct in the left internal capsule. Her EEG showed moderate encephalopathy. No evidence of seizure activity was seen. At time of my exam today she is resting in bed complaining of some abdominal pain. She is being treated for urinary tract infection, pneumonia, bedsores, and left lower extremity wound. Objective - Vital Signs Vital signs: Vital Signs Temp 98.8 F 02/25/17 07:00 Pulse 96 02/25/17 07:00 Resp 18 02/25/17 07:00 BP 137/70 02/25/17 07:00 Pulse Ox 95 02/25/17 15:33 Intake & Output 02/24/17 02/25/17 02/25/17 18:59 06:59 18:59 Intake Total 1440 530 Output Total 1250 600 400 Balance 190 -70 -400 Weight 89 kg 88.5 kg 88.5 kg Intake: IV 450 80 Esomeprazole 20 mg In 100 Sodium Chloride 0.9% 50 ml @ 100 mls/hr IVPB DAILY [facility] Rx#:[id number] Sodium Chloride 0.9% 1, 350 80 000 ml @ 50 mls/hr IV . Q20H [facility] Rx#:[id number] Intake, IV Titration 250 450 Amount Ceftaroline Fosamil 300 250 250 mg In Sodium Chloride 0.9 % 250 ml @ 250 mls/hr IVPB Q12HR [facility] Rx#: [id number] Sodium Chloride 0.45% 1, 200 000 ml @ 50 mls/hr IV . Q20H [facility] Rx#:[id number] Oral 120 Blood Product 620 Rc As-3 Unit 310 [id number] Output: Urine 1250 600 400 Uretheral (Coffey) 1000 Other: Voiding Method Indwelling Catheter Indwelling Catheter Indwelling Catheter # Bowel Movements 1 - Constitutional General appearance: Present: mild distress, obese - EENT Eyes: Present: EOMI, PERRLA. Absent: abnormal pupil, ptosis ENT: Present: hearing grossly normal - Neck Neck: Absent: rigidity - Respiratory Respiratory: negative: prolonged expiration, prolonged inspiration - Cardiovascular Rhythm: irregularly irregular - Gastrointestinal General gastrointestinal: Present: tenderness. Absent: distended - Neurologic Neurologic Comment(s): The patient is still quite drowsy. She remains oriented to person only. There is no obvious facial asymmetry. There is no obvious lateralizing weakness. No significant tremors or seizure-like activities are seen. - Labs CBC & Chem 7: 02/25/17 05:55 02/25/17 05:55 Labs: Abnormal Lab Results - Last 24 Hours (Table) 02/24/17 02/24/17 02/24/17 Range/Units 08:33 16:51 20:13 RBC (3.80-5.40) m/uL Hgb (11.4-16.0) gm/dL Hct (34.0-46.0) % RDW (11.5-15.5) % Lymphocytes # (1.0-4.8) k/uL INR (<1.2) Sodium (137-145) mmol/L Chloride (98-107) mmol/L Carbon Dioxide (22-30) mmol/L BUN (7-17) mg/dL Creatinine (0.52-1.04) mg/dL Glucose (74-99) mg/dL POC Glucose (mg/dL) 226 H 165 H (75-99) mg/dL Crossmatch See Detail 02/25/17 02/25/17 02/25/17 Range/Units 05:55 05:55 05:55 RBC 2.85 L (3.80-5.40) m/uL Hgb 8.5 L D (11.4-16.0) gm/dL Hct 26.9 L (34.0-46.0) % RDW 18.8 H (11.5-15.5) % Lymphocytes # 0.8 L (1.0-4.8) k/uL INR 1.2 H (<1.2) Sodium 155 H (137-145) mmol/L Chloride 124 H* (98-107) mmol/L Carbon Dioxide 18 L (22-30) mmol/L BUN 29 H (7-17) mg/dL Creatinine 1.20 H (0.52-1.04) mg/dL Glucose 190 H (74-99) mg/dL POC Glucose (mg/dL) (75-99) mg/dL Crossmatch 02/25/17 02/25/17 Range/Units 06:58 11:34 RBC (3.80-5.40) m/uL Hgb (11.4-16.0) gm/dL Hct (34.0-46.0) % RDW (11.5-15.5) % Lymphocytes # (1.0-4.8) k/uL INR (<1.2) Sodium (137-145) mmol/L Chloride (98-107) mmol/L Carbon Dioxide (22-30) mmol/L BUN (7-17) mg/dL Creatinine (0.52-1.04) mg/dL Glucose (74-99) mg/dL POC Glucose (mg/dL) 193 H 200 H (75-99) mg/dL Crossmatch Microbiology - Last 24 Hours (Table) 02/22/17 07:40 Gram Stain - Final Sputum Sputum Culture - Final Methicillin resist S. aureus Rosa albicans 02/20/17 21:20 Blood Culture - Preliminary Blood No Growth after 96 hours Assessment and Plan (1) Encephalopathy chronic Status: Acute (2) Encephalopathy acute Status: Chronic (3) Renal insufficiency Status: Chronic (4) History of stroke Status: Suspected (5) Respiratory failure Status: Resolved (6) Altered mental status Status: Acute Plan: This patient's altered mental status continues. She has acute on chronic metabolic and septic encephalopathy that is still moderate, and does not seem to be improving at this time. If there is concern over aspiration I do recommend a swallowing study. If this continues I would recommend repeat imaging of the brain. Continue antibiotic therapy and IV hydration. There was an old stroke of undetermined age on her CAT scan. We recommend aspirin 81 mg. Continue neuro checks. Continue speech therapy. Swallowing study if needed. I will continue to follow I have performed a history and physical on the above patient. I have reviewed the above note, and agree.
[2017-02-25 17:18] LABS: Glucose,Whole Blood 210 mg/dL (75-99)
[2017-02-25 20:22] LABS: Glucose,Whole Blood 132 mg/dL (75-99)
--- NOTE | 2017-02-25 20:50 | CT ---
EXAMINATION TYPE: CT abdomen pelvis w con DATE OF EXAM: 02/25/2017 COMPARISON: 07/13/2016 HISTORY: Generalized abdominal pain. CT DLP: 1873.00 mGycm Automated exposure control for dose reduction was used. TECHNIQUE: Helical acquisition of images was performed from the lung bases through the pelvis. CONTRAST: Performed without Oral Contrast and with IV Contrast, patient injected with 100 mL of Omnipaque 300. FINDINGS: There is bilateral pleural effusions with bilateral lower lobe consolidation and atelectasis. Heart i s enlarged. There are clips from cholecystectomy. Bile ducts are not dilated. Spleen appears normal. I see no garcia creatic mass. There is atherosclerotic vascular calcification. There is no sign of free air. There is a large amount of retained fecal material in the rectum. There is no adrenal mass. Kidneys show satisfactory contrast opacification. There is no hydronephrosi s. Ureters are not dilated. There is some calcification in the lower pole right kidney. Is probably a nonobstructing calculus or unusual vascular calcification. There is no retroperitoneal adenopathy. T here is inferior vena cava filter noted. Abdominal aorta is atheromatous. There is no definite ascite s. There is some osteopenia. There is mild anterior wedging of T10. IMPRESSION: DILATED RECTUM WITH RECTAL FECAL IMPACTION. THIS MEASURES ALMOST 9 CM IN DIAMETER. LOWER LOBE PULMONARY INFILTRATES AND CONSOLIDATION AND ATELECTASIS AND PLEURAL FLUID CONSISTENT WITH CONGESTIVE HEART FAILURE. NO EVIDENCE OF RENAL OBSTRUCTION. ATHEROSCLEROTIC VASCULAR DISEASE. HEART FAILURE AND RECTAL FECAL IM PACTION IS NEW COMPARED TO OLD EXAM.
[2017-02-26] MEDS: SODIUM CHLORIDE 0.45% 1,000 ML IV SCH (06:21)
[2017-02-26 06:26] LABS: Anisocytosis Slight; Basophils % (A) 0 %; CH 29.2; CHCM 31.4; Eosinophils % (A) 0 %; HDW 3.81; HGB 7.9 gm/dL (11.4-16.0); Hypochromasia Moderate; Luc # (Auto) 0.09; Luc % (Auto) 1; Lymphocytes % (A) 13 %; MCH 29.7 pg (25.0-35.0); MCHC 31.6 g/dL (31.0-37.0); MCV 93.9 fL (80.0-100.0); Macrocytosis Slight; Mean Platelet Volume 8.4; Monocytes # (A) 0.2 k/uL (0-1.0); Monocytes % (A) 3 %; Neutrophils # (A) 6.4 k/uL (1.3-7.7); Neutrophils % (A) 82 %; Poikilocytosis Slight; RBC 2.66 m/uL (3.80-5.40); RDW 18.4 % (11.5-15.5); WBC 7.8 k/uL (3.8-10.6); WBC (Perox) 8.16
[2017-02-26 06:32] LABS: INR 1.2 (<1.2); Prothrombin Time 12.3 sec (9.0-12.0)
[2017-02-26 06:49] LABS: Calcium 8.7 mg/dL (8.4-10.2); Phosphorous 2.6 mg/dL (2.5-4.5); Potassium 3.1 mmol/L (3.5-5.1)
[2017-02-26 07:26] LABS: Glucose,Whole Blood 172 mg/dL (75-99)
[2017-02-26] MEDS: IPRATROPIUM-ALBUTEROL 3 ML NEB INHALATION SCH ×4 (07:29→20:28)
[2017-02-26] MEDS: INSULIN LISPRO (humaLOG) 300 UNIT/3 ML VIAL SQ SCH ×5 (07:38→20:41)
[2017-02-26] MEDS: HEPARIN SODIUM,PORCINE 5,000 UNIT/ML 1 ML VIAL SQ SCH ×2 (08:03→20:41)
[2017-02-26] MEDS: HYDROcodone/APAP 5-325MG 1 EACH TAB PO PRN ×2 (08:52→22:36)
[2017-02-26] MEDS: ESOMEPRAZOLE 20 MG in SODIUM CHLORIDE 0.9% 50 ML IVPB SCH (09:01)
[2017-02-26] MEDS: CEFTAROLINE FOSAMIL 300 MG in SODIUM CHLORIDE 0.9% 250 ML IVPB SCH (09:51)
[2017-02-26 11:26] LABS: Glucose,Whole Blood 191 mg/dL (75-99)
--- NOTE | 2017-02-26 12:10 | P.PN ---
Subjective Principal diagnosis: Altered mental status This is a 66-year-old female continuing be evaluated by the neurology service for altered mental status. She has a history of chronic encephalopathy and resides in a fci. She was brought to [facility] emergency room after being found less responsive than usual. She was hypoxic and required intubation. She is no longer intubated. She remains encephalopathic, with no significant change since yesterday. Speech therapy has evaluated and she is now nothing by mouth due to aspiration risk. CT of the brain showed an old lacunar infarct in the left internal capsule. Her EEG showed moderate encephalopathy. No evidence of seizure activity was seen. At time of my exam today she is resting in bed complaining of continued abdominal pain. An abdominal CT did show fecal impaction. She is being treated for urinary tract infection, pneumonia, bedsores, and left lower extremity wound. There have been no new reported neurological changes. Objective - Vital Signs Vital signs: Vital Signs Temp 97.4 F L 02/26/17 07:00 Pulse 78 02/26/17 08:00 Resp 24 02/26/17 08:00 BP 166/87 02/26/17 07:00 Pulse Ox 99 02/26/17 07:00 Intake & Output 02/25/17 02/26/17 02/26/17 18:59 06:59 18:59 Intake Total 960 480 Output Total 1050 Balance -1050 960 480 Weight 88.5 kg 88.5 kg 88.5 kg Intake: IV 960 Ceftaroline Fosamil 300 250 mg In Sodium Chloride 0.9 % 250 ml @ 250 mls/hr IVPB Q12HR GUALBERTO Rx#: [id number] Sodium Chloride 0.45% 1, 600 000 ml @ 50 mls/hr IV . Q20H GUALBERTO Rx#:[id number] Sodium Chloride 0.9% 1, 110 000 ml @ 50 mls/hr IV . Q20H GUALBERTO Rx#:[id number] Oral 480 Output: Urine 1050 Other: Voiding Method Indwelling Catheter Indwelling Catheter Indwelling Catheter - Constitutional General appearance: Present: mild distress, obese - EENT Eyes: Present: EOMI, PERRLA. Absent: abnormal pupil, ptosis ENT: Present: hearing grossly normal - Neck Neck: Present: normal ROM. Absent: rigidity - Respiratory Respiratory: negative: prolonged expiration, prolonged inspiration - Cardiovascular Rhythm: regular - Gastrointestinal General gastrointestinal: Present: distended, tenderness - Neurologic Neurologic Comment(s): She remains drowsy but easily awoken. She follows simple commands but is less verbally responsive today. Orientation cannot be completely determine but she does say her name. There is no facial asymmetry. There is no obvious lateralizing weakness. Speech is soft but there is no obvious dysarthria. Tremors or seizure-like activities are seen. - Labs CBC & Chem 7: 02/26/17 06:15 02/26/17 06:15 Labs: Abnormal Lab Results - Last 24 Hours (Table) 02/25/17 02/25/17 02/26/17 Range/Units 17:16 20:21 06:15 RBC (3.80-5.40) m/uL Hgb (11.4-16.0) gm/dL Hct (34.0-46.0) % RDW (11.5-15.5) % PT (9.0-12.0) sec INR (<1.2) Sodium 157 H (137-145) mmol/L Potassium 3.1 L (3.5-5.1) mmol/L Chloride 126 H* (98-107) mmol/L Carbon Dioxide 21 L (22-30) mmol/L BUN 26 H (7-17) mg/dL Creatinine 1.13 H (0.52-1.04) mg/dL Glucose 151 H (74-99) mg/dL POC Glucose (mg/dL) 210 H 132 H (75-99) mg/dL 02/26/17 02/26/17 02/26/17 Range/Units 06:15 06:15 07:24 RBC 2.66 L (3.80-5.40) m/uL Hgb 7.9 L (11.4-16.0) gm/dL Hct 25.0 L (34.0-46.0) % RDW 18.4 H (11.5-15.5) % PT 12.3 H (9.0-12.0) sec INR 1.2 H (<1.2) Sodium (137-145) mmol/L Potassium (3.5-5.1) mmol/L Chloride (98-107) mmol/L Carbon Dioxide (22-30) mmol/L BUN (7-17) mg/dL Creatinine (0.52-1.04) mg/dL Glucose (74-99) mg/dL POC Glucose (mg/dL) 172 H (75-99) mg/dL 02/26/17 Range/Units 11:24 RBC (3.80-5.40) m/uL Hgb (11.4-16.0) gm/dL Hct (34.0-46.0) % RDW (11.5-15.5) % PT (9.0-12.0) sec INR (<1.2) Sodium (137-145) mmol/L Potassium (3.5-5.1) mmol/L Chloride (98-107) mmol/L Carbon Dioxide (22-30) mmol/L BUN (7-17) mg/dL Creatinine (0.52-1.04) mg/dL Glucose (74-99) mg/dL POC Glucose (mg/dL) 191 H (75-99) mg/dL Microbiology - Last 24 Hours (Table) 02/20/17 21:20 Blood Culture - Preliminary Blood No Growth after 120 hours 02/22/17 07:40 Gram Stain - Final Sputum Sputum Culture - Final Methicillin resist S. aureus Rosa albicans Assessment and Plan (1) Encephalopathy chronic Status: Acute (2) Encephalopathy acute Status: Chronic (3) Renal insufficiency Status: Chronic (4) History of stroke Status: Suspected (5) Respiratory failure Status: Resolved (6) Altered mental status Status: Acute Plan: This patient's altered mental status continues. She has acute on chronic metabolic and septic encephalopathy that is still moderate, and does not seem to be improving at this time. If this worsens I would recommend repeat imaging of the brain. Continue antibiotic therapy and IV hydration. There was an old stroke of undetermined age on her CAT scan. We recommend aspirin 81 mg. Continue neuro checks. Continue speech therapy. Swallowing study if needed. No further neurological workup is indicated at this time. We may be consulted on as-needed basis. I have performed a history and physical on the above patient. I have reviewed the above note, and agree.
[2017-02-26] MEDS ORDERED: SENNOSIDES 8.6 MG TAB PO PRN (12:15)
[2017-02-26] MEDS: D5W WITH KCL 20 MEQ/L 1,000 ML IV SCH (12:50)
[2017-02-26] MEDS ORDERED: Potassium Replacement Protocol 1 EACH MISC MISCELLANE PRN (13:18)
[2017-02-26] MEDS: POTASSIUM CHLORIDE 10 MEQ, LIDOCAINE 2% INJ 10 MG in SODIUM CHLORIDE 0.9% 100 ML IV SCH ×2 (14:09→15:29)
[2017-02-26 17:28] LABS: Glucose,Whole Blood 216 mg/dL (75-99)
[2017-02-26 21:01] LABS: Glucose,Whole Blood 164 mg/dL (75-99)
[2017-02-26] MEDS: CEFTAROLINE FOSAMIL 400 MG in SODIUM CHLORIDE 0.9% 250 ML IVPB SCH (21:27)
[2017-02-26] MEDS: DOCUSATE 100 MG CAP PO SCH (21:28)
[2017-02-27] MEDS: HYDROcodone/APAP 5-325MG 1 EACH TAB PO PRN ×5 (04:13→21:25)
[2017-02-27 06:40] LABS: Anisocytosis Slight; Basophils % (A) 0 %; CH 29.1; CHCM 31.4; Eosinophils # (A) 0.1 k/uL (0-0.7); Eosinophils % (A) 1 %; HCT 25.9 % (34.0-46.0); HDW 3.66; HGB 8.2 gm/dL (11.4-16.0); Hypochromasia Moderate; Luc # (Auto) 0.11; Luc % (Auto) 1; Lymphocytes # (A) 0.9 k/uL (1.0-4.8); Lymphocytes % (A) 11 %; MCH 29.7 pg (25.0-35.0); MCHC 31.8 g/dL (31.0-37.0); MCV 93.6 fL (80.0-100.0); Mean Platelet Volume 8.2; Monocytes # (A) 0.3 k/uL (0-1.0); Monocytes % (A) 3 %; Neutrophils # (A) 7.3 k/uL (1.3-7.7); Neutrophils % (A) 84 %; Poikilocytosis Slight; RBC 2.77 m/uL (3.80-5.40); RDW 18.5 % (11.5-15.5); WBC 8.6 k/uL (3.8-10.6); WBC (Perox) 9.04
[2017-02-27 06:53] LABS: Anion Gap 8 mmol/L; Blood Urea Nitrogen 26 mg/dL (7-17); Calcium 8.5 mg/dL (8.4-10.2); Carbon Dioxide 21 mmol/L (22-30); Glucose 165 mg/dL (74-99); Non-African American GFR(MDRD) 55 (>60 ml/min/1.73 sqM); Sodium 151 mmol/L (137-145)
[2017-02-27] MEDS: IPRATROPIUM-ALBUTEROL 3 ML NEB INHALATION SCH ×4 (07:05→20:44)
[2017-02-27 07:06] LABS: Chloride 122 mmol/L (98-107)
[2017-02-27] MEDS ORDERED: Potassium Replacement Protocol 1 EACH MISC MISCELLANE PRN ×3 (07:09→18:39)
[2017-02-27 07:53] LABS: Glucose,Whole Blood 177 mg/dL (75-99)
[2017-02-27] MEDS: POTASSIUM CHLORIDE 10 MEQ, LIDOCAINE 2% INJ 10 MG in SODIUM CHLORIDE 0.9% 100 ML IV SCH ×2 (08:01→09:07)
[2017-02-27] MEDS: INSULIN LISPRO (humaLOG) 300 UNIT/3 ML VIAL SQ SCH ×4 (08:29→21:31)
[2017-02-27] MEDS: ASPIRIN 81 MG CHEW PO SCH (08:30)
[2017-02-27] MEDS: DOCUSATE 100 MG CAP PO SCH ×2 (08:30→20:31)
[2017-02-27] MEDS: D5W WITH KCL 20 MEQ/L 1,000 ML IV SCH (08:30)
[2017-02-27] MEDS: CEFTAROLINE FOSAMIL 400 MG in SODIUM CHLORIDE 0.9% 250 ML IVPB SCH ×2 (08:36→20:30)
[2017-02-27] MEDS: HEPARIN SODIUM,PORCINE 5,000 UNIT/ML 1 ML VIAL SQ SCH ×2 (08:37→20:31)
[2017-02-27] MEDS: ESOMEPRAZOLE 20 MG in SODIUM CHLORIDE 0.9% 50 ML IVPB SCH (09:53)
[2017-02-27 09:55] LABS: INR 1.2 (<1.2); Prothrombin Time 12.2 sec (9.0-12.0)
--- NOTE | 2017-02-27 11:30 | PN ---
DATE OF SERVICE: 02/26/2017 I am covering for Dr. Gurrola. This 66-year-old woman who was admitted with generalized weakness, had aspiration pneumonia and septic shock. The patient is barely responsive at this time. The p.o. intake appears to be very poor. Patient also had cellulitis of the legs. Multiple consultants are following the patient closely. The patient had an abdomen and pelvis CAT scan yesterday which showed dilated rectum with low pulmonary infiltrate, consolidation, atelectasis, no evidence of renal obstruction. Past medical history and review of systems could not be taken. The patient is stuporous. CURRENT MEDICATIONS: 1. Tylenol 650 q6h p.r.n. 2. [place] 5 mg q.i.d. p.r.n. 3. Aspirin 81 mg. 4. Ceftaroline 300 mg b.i.d. 5. Heparin. 6. Humalog. 7. Narcan. 8. Senokot. PHYSICAL EXAMINATION: Alert and oriented x3. Pulse is 78, blood pressure 168/ ( ), respirations 24, temperature 97.4, pulse ox 99% on 3 liters. HEENT: Conjunctivae normal. NECK: No JVD. CARDIAC: S1/S2. RESPIRATORY: Diminished breath sounds especially at the bases. A few scattered rhonchi. ABDOMEN: Soft, nontender. LEGS: No edema. NERVOUS SYSTEMS: No focal deficits. LABS: WBC 7. hemoglobin 7.9. Sodium 157. Chloride 126. ASSESSMENT: 1. Septic shock with acute pneumonia, present on admission. 2. Acute renal failure. 3. Change in mental status, metabolic encephalopathy. 4. Hypernatremia. 5. Cellulitis of the left lower leg. 6. Chronic deep venous thrombosis of the left popliteal. 7. Acute metabolic encephalopathy. 8. Failure of outpatient therapy. 9. Atrial fibrillation with rapid ventricular rate. RECOMMENDATIONS AND DISCUSSION: Recommend to continue current medication, continue to monitor, continue symptomatic treatment. Otherwise, continue with the IV antibiotics, change the IV fluids. Monitor lytes closely. See orders for details. PT and OT evaluation. Guarded prognosis because of multiple complex medical issues. Further recommendations to follow. MTDD
[2017-02-27 11:40] LABS: Glucose,Whole Blood 190 mg/dL (75-99)
[2017-02-27] MEDS: POTASSIUM CHLORIDE ER 20 MEQ TAB.ER PO SCH ×4 (14:40→20:33)
[2017-02-27 17:37] LABS: Glucose,Whole Blood 202 mg/dL (75-99)
[2017-02-27 20:54] LABS: Glucose,Whole Blood 160 mg/dL (75-99)
[2017-02-28] MEDS: HYDROcodone/APAP 5-325MG 1 EACH TAB PO PRN ×5 (01:50→20:46)
[2017-02-28] MEDS: D5W WITH KCL 20 MEQ/L 1,000 ML IV SCH ×2 (01:55→23:50)
[2017-02-28] MEDS: POTASSIUM CHLORIDE ER 20 MEQ TAB.ER PO SCH ×2 (03:18→03:59)
[2017-02-28 06:21] LABS: Anisocytosis Slight; Basophils % (A) 0 %; CH 29.8; CHCM 31.8; Eosinophils # (A) 0.3 k/uL (0-0.7); Eosinophils % (A) 3 %; HCT 27.4 % (34.0-46.0); HDW 3.58; HGB 8.5 gm/dL (11.4-16.0); Hypochromasia Slight; Luc # (Auto) 0.14; Luc % (Auto) 2; Lymphocytes # (A) 1.2 k/uL (1.0-4.8); Lymphocytes % (A) 13 %; MCH 29.4 pg (25.0-35.0); MCV 94.8 fL (80.0-100.0); Macrocytosis Slight; Mean Platelet Volume 8.6; Monocytes # (A) 0.3 k/uL (0-1.0); Monocytes % (A) 3 %; Neutrophils # (A) 7.8 k/uL (1.3-7.7); Neutrophils % (A) 80 %; Poikilocytosis Slight; RBC 2.89 m/uL (3.80-5.40); RDW 19.4 % (11.5-15.5); WBC 9.8 k/uL (3.8-10.6); WBC (Perox) 10.26
[2017-02-28 06:30] LABS: Anion Gap 6 mmol/L; Blood Urea Nitrogen 22 mg/dL (7-17); Calcium 8.2 mg/dL (8.4-10.2); Carbon Dioxide 20 mmol/L (22-30); Glucose 130 mg/dL (74-99); Non-African American GFR(MDRD) >60 (>60 ml/min/1.73 sqM); Potassium 4.1 mmol/L (3.5-5.1); Sodium 146 mmol/L (137-145)
[2017-02-28 06:34] LABS: Chloride 120 mmol/L (98-107)
[2017-02-28 06:39] LABS: INR 1.2 (<1.2); Prothrombin Time 12.1 sec (9.0-12.0)
[2017-02-28] MEDS: IPRATROPIUM-ALBUTEROL 3 ML NEB INHALATION SCH ×4 (07:15→19:11)
[2017-02-28] MEDS: CEFTAROLINE FOSAMIL 400 MG in SODIUM CHLORIDE 0.9% 250 ML IVPB SCH ×2 (07:25→20:45)
[2017-02-28] MEDS: DOCUSATE 100 MG CAP PO SCH ×2 (07:29→20:44)
[2017-02-28] MEDS: ASPIRIN 81 MG CHEW PO SCH (07:29)
[2017-02-28] MEDS: HEPARIN SODIUM,PORCINE 5,000 UNIT/ML 1 ML VIAL SQ SCH ×2 (07:30→20:46)
[2017-02-28 07:33] LABS: Glucose,Whole Blood 147 mg/dL (75-99)
[2017-02-28] MEDS: INSULIN LISPRO (humaLOG) 300 UNIT/3 ML VIAL SQ SCH ×4 (08:10→20:46)
--- NOTE | 2017-02-28 08:19 | P.PN ---
Subjective Principal diagnosis: Continuing care with generalized weakness. The patient is 66-year-old white female centimeter for aspiration pneumonia with septic shock. She still having difficulty communicating. 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 Objective - Vital Signs Vital signs: Vital Signs Temp 97.8 F 02/28/17 07:00 Pulse 88 02/28/17 07:25 Resp 18 02/28/17 07:00 BP 144/70 02/28/17 07:00 Pulse Ox 96 02/28/17 07:00 Intake & Output 02/27/17 02/28/17 02/28/17 18:59 06:59 18:59 Intake Total 720 Output Total 1506 3 Balance -786 -3 Weight 90 kg 91.5 kg Intake: Oral 720 Output: Urine 1500 Stool 6 3 Other: Voiding Method Indwelling Catheter Indwelling Catheter # Bowel Movements 2 1 - Constitutional General appearance: Present: obese - EENT Eyes: Absent: abnormal pupil - Respiratory Respiratory: bilateral: CTA - Cardiovascular Rhythm: regular Heart sounds: normal: S1, S2 - Gastrointestinal General gastrointestinal: Absent: splenomegaly - Musculoskeletal Musculoskeletal: Present: generalized weakness - Labs CBC & Chem 7: 02/28/17 06:05 02/28/17 06:05 Labs: Abnormal Lab Results - Last 24 Hours (Table) 02/27/17 02/27/17 02/27/17 Range/Units 08:23 11:38 11:57 RBC (3.80-5.40) m/uL Hgb (11.4-16.0) gm/dL Hct (34.0-46.0) % RDW (11.5-15.5) % Neutrophils # (1.3-7.7) k/uL PT 12.2 H (9.0-12.0) sec INR 1.2 H (<1.2) Sodium (137-145) mmol/L Potassium 3.0 L* (3.5-5.1) mmol/L Chloride (98-107) mmol/L Carbon Dioxide (22-30) mmol/L BUN (7-17) mg/dL Glucose (74-99) mg/dL POC Glucose (mg/dL) 190 H (75-99) mg/dL Calcium (8.4-10.2) mg/dL 02/27/17 02/27/17 02/27/17 Range/Units 17:33 18:10 20:18 RBC (3.80-5.40) m/uL Hgb (11.4-16.0) gm/dL Hct (34.0-46.0) % RDW (11.5-15.5) % Neutrophils # (1.3-7.7) k/uL PT (9.0-12.0) sec INR (<1.2) Sodium (137-145) mmol/L Potassium 3.0 L* (3.5-5.1) mmol/L Chloride (98-107) mmol/L Carbon Dioxide (22-30) mmol/L BUN (7-17) mg/dL Glucose (74-99) mg/dL POC Glucose (mg/dL) 202 H 160 H (75-99) mg/dL Calcium (8.4-10.2) mg/dL 02/28/17 02/28/17 02/28/17 Range/Units 06:05 06:05 06:05 RBC 2.89 L (3.80-5.40) m/uL Hgb 8.5 L (11.4-16.0) gm/dL Hct 27.4 L (34.0-46.0) % RDW 19.4 H (11.5-15.5) % Neutrophils # 7.8 H (1.3-7.7) k/uL PT 12.1 H (9.0-12.0) sec INR 1.2 H (<1.2) Sodium 146 H (137-145) mmol/L Potassium (3.5-5.1) mmol/L Chloride 120 H* (98-107) mmol/L Carbon Dioxide 20 L (22-30) mmol/L BUN 22 H (7-17) mg/dL Glucose 130 H (74-99) mg/dL POC Glucose (mg/dL) (75-99) mg/dL Calcium 8.2 L (8.4-10.2) mg/dL 02/28/17 Range/Units 06:59 RBC (3.80-5.40) m/uL Hgb (11.4-16.0) gm/dL Hct (34.0-46.0) % RDW (11.5-15.5) % Neutrophils # (1.3-7.7) k/uL PT (9.0-12.0) sec INR (<1.2) Sodium (137-145) mmol/L Potassium (3.5-5.1) mmol/L Chloride (98-107) mmol/L Carbon Dioxide (22-30) mmol/L BUN (7-17) mg/dL Glucose (74-99) mg/dL POC Glucose (mg/dL) 147 H (75-99) mg/dL Calcium (8.4-10.2) mg/dL Assessment and Plan (1) Septic shock Status: Acute (2) Acute renal failure (ARF) Status: Acute (3) Altered mental status Status: Acute (4) Cellulitis of left lower leg Status: Acute (5) Chronic deep vein thrombosis (DVT) of left popliteal vein Status: Acute (6) Encephalopathy acute Status: Acute (7) Failure of outpatient treatment Status: Acute (8) Atrial fibrillation with rapid ventricular response Status: Acute Plan: Continue to follow electrolytes. Appreciate neurology and pulmonology input. Check CBC and CMP in a.m. Continue clear liquids if cleared with speech therapy. Time with Patient: Less than 30
[2017-02-28] MEDS: ESOMEPRAZOLE 20 MG in SODIUM CHLORIDE 0.9% 50 ML IVPB SCH (09:15)
[2017-02-28 11:25] LABS: Glucose,Whole Blood 176 mg/dL (75-99)
--- NOTE | 2017-02-28 12:41 | PN ---
DATE OF SERVICE: 02/27/2017 I am covering for Dr. Gurrola. This 66-year-old woman who was admitted with aspiration pneumonia and as well as sepsis and septic shock, has been closely monitored. Sensorium was very poor yesterday. The patient had hypernatremia. IV fluids to D5 water. The patient is today much more alert, still confused. Able to improve the p.o. intake at this time. Patient is closely monitored. The patient also being followed on multiple other medical problems also. PAST MEDICAL HISTORY: Reviewed. REVIEW OF SYSTEM: Could not be taken because of change in mental status. Current medications are: 1. Tylenol suppository. 2. [place] 5 mg p.r.n. 3. DuoNeb q.i.d. and p.r.n. 4. Aspirin 81 mg p.o. daily. 5. Ceftaroline 400 mg b.i.d. 6. Colace. 7. Esomeprazole 20 mg daily. 8. Humalog. 9. Narcan. PHYSICAL EXAM: The patient is alert and oriented x3. Pulse is 87, blood pressure 128/59, respirations 18, temperature 98.5, pulse ox 96% on 2 l. HEENT: Conjunctivae normal. NECK: No jugular venous distention. CARDIOVASCULAR: S1 and S2, muffled. RESPIRATORY: Breath sounds diminished at the bases. A few scattered rhonchi, no crackles. ABDOMEN: Soft, nontender. LEGS: No edema, no swelling. NERVOUS SYSTEM: Diffusely weak. LABS: Potassium 3. Sodium 151. Hemoglobin is 8.2. Chloride is 122. ASSESSMENT: 1. Septic shock with acute pneumonia, present on admission. 2. Acute renal failure. 3. Change in mental status, metabolic encephalopathy. 4. Hypernatremia. 5. Cellulitis of the left lower leg. 6. Chronic deep venous thrombosis of the left popliteal. 7. Acute metabolic encephalopathy. 8. Failure of outpatient treatment. 9. Atrial fibrillation with rapid ventricular rate. RECOMMENDATIONS AND DISCUSSION: Recommend to continue current medications. Continue symptomatic treatment. Otherwise at this time I would recommend continue with IV fluids, potassium supplementation. Repeat labs in the morning. Dr. Gurrola will follow. The p.o. intake appears to be improving at this time. MTDD
--- NOTE | 2017-02-28 16:34 | P.PN ---
Subjective This is a 66-year-old female patient who follows with Dr. Aidan delacruz as her primary care physician. She resides in the extended care facility and was transferred to [place] emergency room with urinary tract infection pneumonia and altered mental status. She required intubation and mechanical ventilatory support based on her acute respiratory failure. This all occurred at [facility]. She was subsequently transferred here on 02/20/2017 to our intensive care unit. The patient was intubated and placed on a mechanical ventilator. In the intensive care unit the patient was treated and ultimately her condition was stabilized and the patient was extubated and transferred to a medical floor. The patient is gradually improving. The patient is still having difficulty with communication. However it seems to be that the patient is more alert today. She was having altered mental status related to chronic encephalopathy. He is [facility] resident. One consideration was the possibility of hypoxic encephalopathy also the time of intubation that was done in another facility. No evidence of any seizure activity at this point. She is being treated for urine checked infection and aspiration pneumonia. Her sputum culture was positive for MRSA. There was also Rosa albicans as colonizers. Urine cultures positive for Proteus mirabilis and Enterococcus faecalis. The patient is on Teflaro at this point covering for these organisms. The CAT scan of the abdomen and pelvis showed dilated rectum with rectal fecal impaction. The rectum measured 9 cm in diameter. Some limited pulmonate infiltrates/consolidation/atelectasis is seen in lung bases bilaterally. There is anterior wedging of T10 spine. Nonobstructive calculus is also seen in the right kidney. Objective - Vital Signs Vital signs: Vital Signs Temp 98.3 F 02/28/17 15:00 Pulse 72 02/28/17 15:57 Resp 18 02/28/17 15:17 BP 154/72 02/28/17 15:00 Pulse Ox 98 02/28/17 15:00 Intake & Output 02/27/17 02/28/17 02/28/17 18:59 06:59 18:59 Intake Total 720 Output Total 1506 3 3 Balance -786 -3 -3 Weight 90 kg 91.5 kg 91.5 kg Intake: Oral 720 Output: Urine 1500 Stool 6 3 3 Other: Voiding Method Indwelling Catheter Indwelling Catheter Indwelling Catheter # Bowel Movements 2 1 - Exam Gen. appearance the patient is in nonacute distress. Lethargic. Obese. No apparent respiratory distress at this point.Head exam was generally normal. There was no scleral icterus or corneal arcus. Mucous membranes were moist.Neck was supple and without jugular venous distension, thyromegaly, or carotid bruits. Carotids were easily palpable bilaterally. There was no adenopathy. Lung sounds are markedly diminished in lung bases bilaterally. Few rales. No wheezes.Cardiac exam revealed the PMI to be normally situated and sized. The rhythm was regular and no extrasystoles were noted during several minutes of auscultation. The first and second heart sounds were normal and physiologic splitting of the second heart sound was noted. There were no murmurs, rubs, clicks, or gallops. Abdomen is obese soft nontender. No direct tenderness hemoptysis or guarding at this point. Extremities trace edema and there is no cyanosis or clubbing. Neurologically the patient is lethargic and drowsy. She follows some simple commands. She has no facial asymmetry. She is moving all 4 extremities. No tremors. - Labs CBC & Chem 7: 02/28/17 06:05 02/28/17 06:05 Labs: Abnormal Lab Results - Last 24 Hours (Table) 02/27/17 02/27/17 02/27/17 Range/Units 17:33 18:10 20:18 RBC (3.80-5.40) m/uL Hgb (11.4-16.0) gm/dL Hct (34.0-46.0) % RDW (11.5-15.5) % Neutrophils # (1.3-7.7) k/uL PT (9.0-12.0) sec INR (<1.2) Sodium (137-145) mmol/L Potassium 3.0 L* (3.5-5.1) mmol/L Chloride (98-107) mmol/L Carbon Dioxide (22-30) mmol/L BUN (7-17) mg/dL Glucose (74-99) mg/dL POC Glucose (mg/dL) 202 H 160 H (75-99) mg/dL Calcium (8.4-10.2) mg/dL 02/28/17 02/28/17 02/28/17 Range/Units 06:05 06:05 06:05 RBC 2.89 L (3.80-5.40) m/uL Hgb 8.5 L (11.4-16.0) gm/dL Hct 27.4 L (34.0-46.0) % RDW 19.4 H (11.5-15.5) % Neutrophils # 7.8 H (1.3-7.7) k/uL PT 12.1 H (9.0-12.0) sec INR 1.2 H (<1.2) Sodium 146 H (137-145) mmol/L Potassium (3.5-5.1) mmol/L Chloride 120 H* (98-107) mmol/L Carbon Dioxide 20 L (22-30) mmol/L BUN 22 H (7-17) mg/dL Glucose 130 H (74-99) mg/dL POC Glucose (mg/dL) (75-99) mg/dL Calcium 8.2 L (8.4-10.2) mg/dL 02/28/17 02/28/17 Range/Units 06:59 11:23 RBC (3.80-5.40) m/uL Hgb (11.4-16.0) gm/dL Hct (34.0-46.0) % RDW (11.5-15.5) % Neutrophils # (1.3-7.7) k/uL PT (9.0-12.0) sec INR (<1.2) Sodium (137-145) mmol/L Potassium (3.5-5.1) mmol/L Chloride (98-107) mmol/L Carbon Dioxide (22-30) mmol/L BUN (7-17) mg/dL Glucose (74-99) mg/dL POC Glucose (mg/dL) 147 H 176 H (75-99) mg/dL Calcium (8.4-10.2) mg/dL Assessment and Plan Plan: Impression: #1 Acute hypoxic respiratory failure secondary to suspected pneumonia as well as evidence of fluid volume overload. The patient is improved. The patient is currently extubated on the medical floor breathing through a nasal cannula. MRSA is present in the sputum and the patient is currently on IV Teflaro. #2 Acute kidney injury, recovered and the patient's creatinine normalizes down to 0.9 #3 New-onset atrial fibrillation, currently in normal sinus rhythm #4 Diabetes mellitus. #5 Hypertension. #6 urine checked infection with enterococcus which is vancomycin sensitive and Proteus currently on IV Teflaro #7 History of DVT, status post Lizzy filter placement. #8 Obesity with previous [place]-en-Y bypass surgery. #9 History of lower extremity cellulitis previous MRSA. 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 #11 History of lower gastrointestinal bleeding. #12 history obstructive sleep apnea #13 significant medical debility secondary to above-mentioned comorbidities and the patient is a DNR/DNI CODE STATUS. Plan Aspiration precautions. Continue Teflaro. Continue DuoNeb nebulized treatments around the clock. Incentive spirometer. Rest of the supportive care per medicine. We'll continue seeing this patient on necessary basis.
[2017-02-28 16:57] LABS: Glucose,Whole Blood 128 mg/dL (75-99)
--- NOTE | 2017-02-28 19:30 | P.PN ---
Subjective Principal diagnosis: Altered mental status 66-year-old female presents from [facility] care facility where she has been receiving her care. She has a history of obesity, generalized weakness, falls with decreasing ability to ambulate. Because of this she was transferred to extended care to receive further care to wounds and her multiple medical troubles including her diabetes. It is related from the outside emergency center that the patient presented there with bradycardia with heart rate in the 50s, with a hernandez cyanotic status with a pulse ox of 75%. She required intubation and transferred to our intensive care unit. At the time of transfer she had evidence of acute renal failure with a creatinine now 3.4 and evidence of extensive lactic acidosis at 5.5. The patient remains in the intensive care unit intubated and mechanically ventilated. She's not had extensive sedation and is not responding well. Not currently having fevers, has been hypotensive requiring norepinephrine infusion with fluid resuscitation. Concerns to sepsis from the skin, pneumonia and urine at admission. Patient has now had some recovery. Still has poor mental status. He has no desire to eat. Her family has been in. The try to motivate her to try to want to stay alive. She does have a grandchild coming in the near future. The family is hoping this will give her some desire. Objective - Vital Signs Vital signs: Vital Signs Temp 98.3 F 02/28/17 15:00 Pulse 73 02/28/17 19:11 Resp 18 02/28/17 15:17 BP 154/72 02/28/17 15:00 Pulse Ox 97 02/28/17 19:11 Intake & Output 02/28/17 02/28/17 03/01/17 06:59 18:59 06:59 Output Total 3 678 Balance -3 -678 Weight 91.5 kg 91.5 kg Output: Urine 675 Uretheral (Coffey) 675 Stool 3 3 Other: Voiding Method Indwelling Catheter Indwelling Catheter # Bowel Movements 1 - Exam 66-year-old woman who began out of the ICU but still a poor historian at this time. HEENT: Anicteric conjunctiva are pink and moist nasal mucosa grossly intact without significant lesions, there is no thrush. Oral cavity is dry Neck: The neck is supple without significant lymphadenopathy or thyromegaly. Lungs: Symmetrical air entry with basilar crackles and expiratory wheezes Heart: Irregular with a positive S4 There is no significant murmur click or rub , PMI was nondisplaced. Abdomen: Obese, Positive bowel sounds soft and nontender without palpable masses or organomegaly. There was no guarding or rebound. Extremities: Upper and lower extremities have evidence of some edema. The left lower extremity has evidence of the extensive lateral ulceration. It bleeds easily with dressing change. Please see the nursing photography for the extent of this ulceration. Skin there is evidence also of stage II pressure ulcerations to the left buttocks and coccyx for which the zinc product is applied. Neuro: She is arousable. Does say a few words. Content of speech is somewhat poor. She has poor upper extremity strength. - Labs CBC & Chem 7: 02/28/17 06:05 02/28/17 06:05 Labs: Abnormal Lab Results - Last 24 Hours (Table) 02/27/17 02/28/17 02/28/17 Range/Units 20:18 06:05 06:05 RBC 2.89 L (3.80-5.40) m/uL Hgb 8.5 L (11.4-16.0) gm/dL Hct 27.4 L (34.0-46.0) % RDW 19.4 H (11.5-15.5) % Neutrophils # 7.8 H (1.3-7.7) k/uL PT 12.1 H (9.0-12.0) sec INR 1.2 H (<1.2) Sodium (137-145) mmol/L Chloride (98-107) mmol/L Carbon Dioxide (22-30) mmol/L BUN (7-17) mg/dL Glucose (74-99) mg/dL POC Glucose (mg/dL) 160 H (75-99) mg/dL Calcium (8.4-10.2) mg/dL 02/28/17 02/28/17 02/28/17 Range/Units 06:05 06:59 11:23 RBC (3.80-5.40) m/uL Hgb (11.4-16.0) gm/dL Hct (34.0-46.0) % RDW (11.5-15.5) % Neutrophils # (1.3-7.7) k/uL PT (9.0-12.0) sec INR (<1.2) Sodium 146 H (137-145) mmol/L Chloride 120 H* (98-107) mmol/L Carbon Dioxide 20 L (22-30) mmol/L BUN 22 H (7-17) mg/dL Glucose 130 H (74-99) mg/dL POC Glucose (mg/dL) 147 H 176 H (75-99) mg/dL Calcium 8.2 L (8.4-10.2) mg/dL 02/28/17 Range/Units 16:50 RBC (3.80-5.40) m/uL Hgb (11.4-16.0) gm/dL Hct (34.0-46.0) % RDW (11.5-15.5) % Neutrophils # (1.3-7.7) k/uL PT (9.0-12.0) sec INR (<1.2) Sodium (137-145) mmol/L Chloride (98-107) mmol/L Carbon Dioxide (22-30) mmol/L BUN (7-17) mg/dL Glucose (74-99) mg/dL POC Glucose (mg/dL) 128 H (75-99) mg/dL Calcium (8.4-10.2) mg/dL Assessment and Plan (1) Septic shock Narrative/Plan: 66-year-old female with multiple medical troubles presents as a transfer from an outside hospital with evidence of hypotension, respiratory failure and sepsis. She required intubation and mechanical ventilation. She remains on the ventilator. Oxygenation is improving as is her acidosis. She over does have septic shock requiring fluid resuscitation and vasopressor therapy and has evidence of acute renal failure as well as altered mental status. There are recent cultures that show evidence of MRSA and Proteus from her infected left leg. With this antibiotic therapy is utilized with Ceftaroline with pharmacy dosing. Cultures are in process of blood urine and sputum which may further help direct her therapy. Her prognosis is very poor given the current circumstances. Leukocytosis was due to her sepsis Her chronic anemia has worsened, and despite her obesity has evidence of moderate protein calorie malnutrition. The patient's cultures are finalized. There is evidence of MRSA Proteus and enterococcus being isolated. She's had a significant improvement this point in time with the current interventions. As noted moved out of the ICU. So his poor mental status. This is contemplation for transition to the extended care facility may then alter antibiotic therapy to vancomycin with Rocephin based on the current cultures to complete the next 7 days of therapy. Local wound care continues as above Status: Acute (2) Respiratory failure Status: Resolved (3) Leukocytosis Status: Acute (4) Acute renal failure (ARF) Status: Acute
[2017-02-28 20:37] LABS: Glucose,Whole Blood 156 mg/dL (75-99)
[2017-03-01 07:22] LABS: Glucose,Whole Blood 146 mg/dL (75-99)
[2017-03-01] MEDS: INSULIN LISPRO (humaLOG) 300 UNIT/3 ML VIAL SQ SCH ×4 (08:11→20:59)
[2017-03-01] MEDS: ASPIRIN 81 MG CHEW PO SCH (08:12)
[2017-03-01] MEDS: CEFTAROLINE FOSAMIL 400 MG in SODIUM CHLORIDE 0.9% 250 ML IVPB SCH ×2 (08:12→20:59)
[2017-03-01] MEDS: HEPARIN SODIUM,PORCINE 5,000 UNIT/ML 1 ML VIAL SQ SCH ×2 (08:12→20:59)
[2017-03-01] MEDS: PANTOPRAZOLE 40 MG TABLET PO SCH (08:12)
[2017-03-01] MEDS: DOCUSATE 100 MG CAP PO SCH ×2 (08:17→21:17)
--- NOTE | 2017-03-01 08:36 | P.PN ---
Subjective Principal diagnosis: Continuing care with generalized weakness. The patient is 66-year-old white female centimeter for aspiration pneumonia with septic shock. She still having difficulty communicating. 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 Objective - Vital Signs Vital signs: Vital Signs Temp 99.1 F 02/28/17 20:35 Pulse 89 03/01/17 00:00 Resp 16 03/01/17 00:00 BP 143/67 02/28/17 23:55 Pulse Ox 96 02/28/17 20:35 Intake & Output 02/28/17 03/01/17 03/01/17 18:59 06:59 18:59 Intake Total 250 Output Total 678 601 Balance -678 -351 Weight 91.5 kg 93 kg Intake: Oral 250 Output: Urine 675 600 Uretheral (Coffey) 675 600 Stool 3 1 Other: Voiding Method Indwelling Catheter Indwelling Catheter # Bowel Movements 3 - Constitutional General appearance: Present: average body habitus - EENT Eyes: Absent: abnormal pupil - Respiratory Respiratory: bilateral: diminished - Cardiovascular Rhythm: regular - Gastrointestinal General gastrointestinal: Present: soft. Absent: tenderness - Integumentary Integumentary: Present: cellulitis - Neurologic Neurologic: Present: CNII-XII intact - Labs CBC & Chem 7: 02/28/17 06:05 02/28/17 06:05 Labs: Abnormal Lab Results - Last 24 Hours (Table) 02/28/17 02/28/17 02/28/17 Range/Units 11:23 16:50 20:30 POC Glucose (mg/dL) 176 H 128 H 156 H (75-99) mg/dL 03/01/17 Range/Units 07:21 POC Glucose (mg/dL) 146 H (75-99) mg/dL Assessment and Plan (1) Septic shock Status: Acute (2) Acute renal failure (ARF) Status: Acute (3) Altered mental status Status: Acute (4) Cellulitis of left lower leg Status: Acute (5) Chronic deep vein thrombosis (DVT) of left popliteal vein Status: Acute (6) Encephalopathy acute Status: Acute (7) Failure of outpatient treatment Status: Acute (8) Atrial fibrillation with rapid ventricular response Status: Acute Plan: Continue to follow electrolytes. Appreciate neurology and pulmonology input. Check CBC and CMP in a.m. Continue clear liquids if cleared with speech therapy.
[2017-03-01] MEDS: IPRATROPIUM-ALBUTEROL 3 ML NEB INHALATION SCH ×4 (09:12→19:47)
[2017-03-01 12:05] LABS: Glucose,Whole Blood 158 mg/dL (75-99)
--- NOTE | 2017-03-01 13:35 | P.PN ---
Subjective Principal diagnosis: Altered mental status 66-year-old female presents from [facility] care facility where she has been receiving her care. She has a history of obesity, generalized weakness, falls with decreasing ability to ambulate. Because of this she was transferred to extended care to receive further care to wounds and her multiple medical troubles including her diabetes. It is related from the outside emergency center that the patient presented there with bradycardia with heart rate in the 50s, with a hernandez cyanotic status with a pulse ox of 75%. She required intubation and transferred to our intensive care unit. At the time of transfer she had evidence of acute renal failure with a creatinine now 3.4 and evidence of extensive lactic acidosis at 5.5. The patient remains in the intensive care unit intubated and mechanically ventilated. She's not had extensive sedation and is slow to respond is better responsive today Remains without fevers no further hypotension doing well fluid resuscitation. Concerns to sepsis from the skin, pneumonia and urine at admission. Patient has now had some recovery. Still has poor mental status. He has no desire to eat. Her family has been in. The try to motivate her to try to want to stay alive. She does have a grandchild coming in the near future. The family is hoping this will give her some desire. Will be utilized for the chronic ulceration to the left leg that she finds painful. The discharge will go to extended care. Prognosis is very poor. Objective - Vital Signs Vital signs: Vital Signs Temp 98.8 F 03/01/17 07:00 Pulse 76 03/01/17 09:22 Resp 16 03/01/17 08:00 BP 129/59 03/01/17 07:00 Pulse Ox 99 03/01/17 07:00 Intake & Output 02/28/17 03/01/17 03/01/17 18:59 06:59 18:59 Intake Total 250 Output Total 678 601 301 Balance -678 -351 -301 Weight 91.5 kg 93 kg 93 kg Intake: Oral 250 Output: Urine 675 600 300 Uretheral (Coffey) 675 600 Stool 3 1 1 Other: Voiding Method Indwelling Catheter Indwelling Catheter Indwelling Catheter # Bowel Movements 3 - Labs CBC & Chem 7: 02/28/17 06:05 02/28/17 06:05 Labs: Abnormal Lab Results - Last 24 Hours (Table) 02/28/17 02/28/17 03/01/17 Range/Units 16:50 20:30 07:21 POC Glucose (mg/dL) 128 H 156 H 146 H (75-99) mg/dL 03/01/17 Range/Units 11:56 POC Glucose (mg/dL) 158 H (75-99) mg/dL Assessment and Plan (1) Septic shock Status: Acute (2) Respiratory failure Status: Resolved (3) Leukocytosis Status: Acute (4) Acute renal failure (ARF) Status: Acute
[2017-03-01 16:38] LABS: Anisocytosis Slight; Basophils % (A) 0 %; Eosinophils # (A) 0.3 k/uL (0-0.7); Eosinophils % (A) 4 %; HCT 27.4 % (34.0-46.0); HDW 3.33; HGB 8.3 gm/dL (11.4-16.0); Hypochromasia Slight; Luc # (Auto) 0.11; Luc % (Auto) 1; Lymphocytes % (A) 11 %; MCH 28.7 pg (25.0-35.0); MCHC 30.4 g/dL (31.0-37.0); MCV 94.6 fL (80.0-100.0); Macrocytosis Slight; Mean Platelet Volume 9.4; Monocytes # (A) 0.3 k/uL (0-1.0); Monocytes % (A) 3 %; Neutrophils # (A) 6.9 k/uL (1.3-7.7); Neutrophils % (A) 81 %; RBC 2.89 m/uL (3.80-5.40); RDW 19.7 % (11.5-15.5); WBC 8.5 k/uL (3.8-10.6); WBC (Perox) 9.15
[2017-03-01 16:51] LABS: Anion Gap 5 mmol/L; Blood Urea Nitrogen 19 mg/dL (7-17); Calcium 7.5 mg/dL (8.4-10.2); Carbon Dioxide 20 mmol/L (22-30); Chloride 117 mmol/L (98-107); Glucose 148 mg/dL (74-99); Non-African American GFR(MDRD) >60 (>60 ml/min/1.73 sqM); Potassium 3.8 mmol/L (3.5-5.1); Sodium 142 mmol/L (137-145)
[2017-03-01 17:09] LABS: Glucose,Whole Blood 167 mg/dL (75-99)
[2017-03-01] MEDS: HYDROcodone/APAP 5-325MG 1 EACH TAB PO PRN (18:32)
[2017-03-01 20:15] LABS: Glucose,Whole Blood 155 mg/dL (75-99)
[2017-03-01] MEDS: D5W WITH KCL 20 MEQ/L 1,000 ML IV SCH (21:16)
[2017-03-02] MEDS: HYDROcodone/APAP 5-325MG 1 EACH TAB PO PRN ×3 (06:34→17:52)
[2017-03-02 06:44] LABS: Anisocytosis Slight; Basophils % (A) 0 %; CH 29.2; CHCM 31.7; Eosinophils # (A) 0.3 k/uL (0-0.7); Eosinophils % (A) 4 %; HCT 25.3 % (34.0-46.0); HDW 3.31; HGB 8.1 gm/dL (11.4-16.0); Hypochromasia Slight; Luc # (Auto) 0.12; Luc % (Auto) 1; Lymphocytes # (A) 1.1 k/uL (1.0-4.8); Lymphocytes % (A) 12 %; MCH 29.7 pg (25.0-35.0); MCV 92.8 fL (80.0-100.0); Mean Platelet Volume 7.7; Monocytes # (A) 0.2 k/uL (0-1.0); Monocytes % (A) 3 %; Neutrophils % (A) 80 %; RBC 2.73 m/uL (3.80-5.40); RDW 18.9 % (11.5-15.5); WBC 8.7 k/uL (3.8-10.6); WBC (Perox) 9.14
[2017-03-02 07:03] LABS: Anion Gap 6 mmol/L; Blood Urea Nitrogen 17 mg/dL (7-17); Carbon Dioxide 19 mmol/L (22-30); Chloride 118 mmol/L (98-107); Glucose 118 mg/dL (74-99); Non-African American GFR(MDRD) >60 (>60 ml/min/1.73 sqM); Potassium 3.3 mmol/L (3.5-5.1); Sodium 143 mmol/L (137-145)
[2017-03-02 07:26] LABS: Glucose,Whole Blood 131 mg/dL (75-99)
[2017-03-02] MEDS: IPRATROPIUM-ALBUTEROL 3 ML NEB INHALATION SCH ×5 (07:32→19:33)
--- NOTE | 2017-03-02 08:18 | P.PN ---
Subjective Principal diagnosis: ASpiration pneumonia with sepsis Objective - Vital Signs Vital signs: Vital Signs Temp 98.5 F 03/02/17 07:00 Pulse 72 03/02/17 07:45 Resp 16 03/02/17 07:36 BP 138/60 03/02/17 07:00 Pulse Ox 97 03/02/17 07:00 Intake & Output 03/01/17 03/02/17 03/02/17 18:59 06:59 18:59 Intake Total 100 Output Total 1327 801 Balance -1327 -701 Weight 93 kg 89.5 kg Intake: Oral 100 Output: Urine 1325 800 Uretheral (Coffey) 1025 800 Stool 2 1 Other: Voiding Method Indwelling Catheter Indwelling Catheter # Bowel Movements 1 - Constitutional General appearance: Present: obese - EENT Eyes: Absent: abnormal pupil - Respiratory Respiratory: bilateral: diminished - Cardiovascular Heart sounds: normal: S1, S2 - Gastrointestinal General gastrointestinal: Present: soft. Absent: tenderness - Musculoskeletal Musculoskeletal: Present: generalized weakness - Psychiatric Psychiatric: Present: A&O x's 3, intact judgment & insight - Labs CBC & Chem 7: 03/02/17 06:00 03/02/17 06:00 Labs: Abnormal Lab Results - Last 24 Hours (Table) 03/01/17 03/01/17 03/01/17 Range/Units 11:56 16:25 16:25 RBC 2.89 L (3.80-5.40) m/uL Hgb 8.3 L (11.4-16.0) gm/dL Hct 27.4 L (34.0-46.0) % MCHC 30.4 L (31.0-37.0) g/dL RDW 19.7 H (11.5-15.5) % Potassium (3.5-5.1) mmol/L Chloride 117 H (98-107) mmol/L Carbon Dioxide 20 L (22-30) mmol/L BUN 19 H (7-17) mg/dL Glucose 148 H (74-99) mg/dL POC Glucose (mg/dL) 158 H (75-99) mg/dL Calcium 7.5 L (8.4-10.2) mg/dL 03/01/17 03/01/17 03/02/17 Range/Units 17:06 20:12 06:00 RBC 2.73 L (3.80-5.40) m/uL Hgb 8.1 L (11.4-16.0) gm/dL Hct 25.3 L (34.0-46.0) % MCHC (31.0-37.0) g/dL RDW 18.9 H (11.5-15.5) % Potassium (3.5-5.1) mmol/L Chloride (98-107) mmol/L Carbon Dioxide (22-30) mmol/L BUN (7-17) mg/dL Glucose (74-99) mg/dL POC Glucose (mg/dL) 167 H 155 H (75-99) mg/dL Calcium (8.4-10.2) mg/dL 03/02/17 03/02/17 Range/Units 06:00 07:24 RBC (3.80-5.40) m/uL Hgb (11.4-16.0) gm/dL Hct (34.0-46.0) % MCHC (31.0-37.0) g/dL RDW (11.5-15.5) % Potassium 3.3 L (3.5-5.1) mmol/L Chloride 118 H (98-107) mmol/L Carbon Dioxide 19 L (22-30) mmol/L BUN (7-17) mg/dL Glucose 118 H (74-99) mg/dL POC Glucose (mg/dL) 131 H (75-99) mg/dL Calcium 8.0 L (8.4-10.2) mg/dL Assessment and Plan (1) Septic shock Status: Acute (2) Acute renal failure (ARF) Status: Acute (3) Altered mental status Status: Acute (4) Cellulitis of left lower leg Status: Acute (5) Chronic deep vein thrombosis (DVT) of left popliteal vein Status: Acute (6) Encephalopathy acute Status: Acute (7) Failure of outpatient treatment Status: Acute (8) Atrial fibrillation with rapid ventricular response Status: Acute Plan: The patient has significant clinical improvement. However, given her overall comorbidities her prognosis overall is still somewhat guarded. Hopefully we can discharge back to [facility] in the a.m. Dr. Lara's group will be covering for the rest of the week. Increase in relation and promote diet. However, given her inability to ambulate properly, her prognosis is guarded. Time with Patient: Less than 30
[2017-03-02] MEDS: DOCUSATE 100 MG CAP PO SCH ×2 (09:03→21:20)
[2017-03-02 11:17] LABS: Glucose,Whole Blood 152 mg/dL (75-99)
[2017-03-02] MEDS: CEFTAROLINE FOSAMIL 400 MG in SODIUM CHLORIDE 0.9% 250 ML IVPB SCH ×2 (11:47→21:19)
[2017-03-02] MEDS: INSULIN LISPRO (humaLOG) 300 UNIT/3 ML VIAL SQ SCH ×4 (11:50→20:56)
[2017-03-02] MEDS ORDERED: Potassium Replacement Protocol 1 EACH MISC MISCELLANE PRN (13:35)
[2017-03-02] MEDS: ASPIRIN 81 MG CHEW PO SCH (17:04)
[2017-03-02] MEDS: PANTOPRAZOLE 40 MG TABLET PO SCH (17:04)
[2017-03-02 17:27] LABS: Glucose,Whole Blood 133 mg/dL (75-99)
[2017-03-02] MEDS: POTASSIUM CHLORIDE 10 MEQ in WATER FOR INJECTION 1 100ML.BAG IVPB SCH ×2 (17:45→19:20)
[2017-03-02] MEDS: D5W WITH KCL 20 MEQ/L 1,000 ML IV SCH (17:53)
[2017-03-02] MEDS: HEPARIN SODIUM,PORCINE 5,000 UNIT/ML 1 ML VIAL SQ SCH ×2 (17:53→21:20)
[2017-03-02 20:35] LABS: Glucose,Whole Blood 118 mg/dL (75-99)
[2017-03-02] MEDS ORDERED: POTASSIUM CHLORIDE 20 MEQ, LIDOCAINE 2% INJ 20 MG in SODIUM CHLORIDE 0.9% 100 ML IVPB ONE (23:00)
[2017-03-03] MEDS: HYDROcodone/APAP 5-325MG 1 EACH TAB PO PRN ×4 (01:23→20:12)
[2017-03-03 05:55] LABS: Anisocytosis Slight; Basophils % (A) 0 %; CH 29.9; CHCM 31.9; Eosinophils # (A) 0.2 k/uL (0-0.7); Eosinophils % (A) 3 %; HCT 24.4 % (34.0-46.0); HDW 3.22; HGB 7.4 gm/dL (11.4-16.0); Hypochromasia Slight; Luc # (Auto) 0.13; Luc % (Auto) 2; Lymphocytes # (A) 0.9 k/uL (1.0-4.8); Lymphocytes % (A) 14 %; MCH 28.8 pg (25.0-35.0); MCHC 30.5 g/dL (31.0-37.0); MCV 94.6 fL (80.0-100.0); Macrocytosis Slight; Mean Platelet Volume 8.8; Monocytes # (A) 0.2 k/uL (0-1.0); Monocytes % (A) 3 %; Neutrophils % (A) 77 %; RBC 2.58 m/uL (3.80-5.40); RDW 19.7 % (11.5-15.5); WBC 6.5 k/uL (3.8-10.6); WBC (Perox) 6.68
[2017-03-03 06:04] LABS: Anion Gap 6 mmol/L; Blood Urea Nitrogen 19 mg/dL (7-17); Calcium 8.2 mg/dL (8.4-10.2); Carbon Dioxide 19 mmol/L (22-30); Chloride 117 mmol/L (98-107); Glucose 118 mg/dL (74-99); Non-African American GFR(MDRD) >60 (>60 ml/min/1.73 sqM); Potassium 3.4 mmol/L (3.5-5.1); Sodium 142 mmol/L (137-145)
[2017-03-03] MEDS ORDERED: Potassium Replacement Protocol 1 EACH MISC MISCELLANE PRN (06:29)
[2017-03-03] MEDS ORDERED: POTASSIUM CHLORIDE 20 MEQ in WATER FOR INJECTION 1 100ML.BAG IVPB ONE (07:00)
[2017-03-03] MEDS: IPRATROPIUM-ALBUTEROL 3 ML NEB INHALATION SCH ×4 (07:09→18:54)
[2017-03-03 07:46] LABS: Glucose,Whole Blood 133 mg/dL (75-99)
[2017-03-03] MEDS: DOCUSATE 100 MG CAP PO SCH (08:27)
[2017-03-03] MEDS: PANTOPRAZOLE 40 MG TABLET PO SCH (08:27)
[2017-03-03] MEDS: HEPARIN SODIUM,PORCINE 5,000 UNIT/ML 1 ML VIAL SQ SCH (08:27)
[2017-03-03] MEDS: INSULIN LISPRO (humaLOG) 300 UNIT/3 ML VIAL SQ SCH ×3 (08:27→18:22)
[2017-03-03] MEDS: ASPIRIN 81 MG CHEW PO SCH (08:27)
[2017-03-03 08:44] VITALS: BP 122/65; RESP 20; TEMP 98.3
[2017-03-03 09:30] VITALS: BMI 32.8
[2017-03-03] MEDS: CEFTAROLINE FOSAMIL 400 MG in SODIUM CHLORIDE 0.9% 250 ML IVPB SCH (10:38)
[2017-03-03 12:12] LABS: Glucose,Whole Blood 119 mg/dL (75-99)
[2017-03-03 16:08] LABS: Anisocytosis Slight; Basophils % (A) 0 %; CH 29.2; CHCM 32.6; Eosinophils # (A) 0.2 k/uL (0-0.7); Eosinophils % (A) 3 %; HCT 23.7 % (34.0-46.0); HDW 3.28; HGB 7.9 gm/dL (11.4-16.0); Hypochromasia Slight; Luc # (Auto) 0.15; Luc % (Auto) 2; Lymphocytes % (A) 15 %; MCH 30.1 pg (25.0-35.0); MCHC 33.2 g/dL (31.0-37.0); MCV 90.6 fL (80.0-100.0); Mean Platelet Volume 8.3; Monocytes # (A) 0.2 k/uL (0-1.0); Monocytes % (A) 3 %; Neutrophils # (A) 5.1 k/uL (1.3-7.7); Neutrophils % (A) 77 %; RBC 2.62 m/uL (3.80-5.40); RDW 19.4 % (11.5-15.5); WBC 6.6 k/uL (3.8-10.6); WBC (Perox) 6.68
--- NOTE | 2017-03-03 16:29 | P.DS ---
Providers Date of admission: 02/20/17 23:10 Expected date of discharge: 03/03/17 Attending physician: Willis Mckeon Consults: 02/20/17 22:59 Consult Physician Stat Consulting Provider: Mya Gardner Consult Reason/Comments: Septic shock Do you want consulting provider notified?: Already Contacted 02/21/17 09:34 Consult Physician Routine Consulting Provider: Clayton Bhatia Consult Reason/Comments: wound care/sepsis Do you want consulting provider notified?: Yes 02/22/17 08:12 Consult Physician Routine Consulting Provider: Thad Antunez Consult Reason/Comments: mental status changes Do you want consulting provider notified?: Yes Consult Physician Urgent Consulting Provider: Johnnie Silva Consult Reason/Comments: new afib rVR Do you want consulting provider notified?: Yes Primary care physician: Aquilino Khanna Hospital Course: Final Diagnoses: 1. Septic shock with acute MRSA pneumonia, present on admission #2 acute renal failure #3 change in mental status, acute metabolic encephalopathy #4 hypernatremia #5 cellulitis of left lower leg #6 chronic DVT of the left popliteal #7 failure of outpatient therapy #8 with a focal atrial tachycardia, normal LV function, moderate pulmonary hypertension. Atrial fibrillation ruled out as per cardiology evaluation with no long-term anticoagulation recommended. #9 ANemia #10 Proteus UTI-acute Hospital course: This is 66-year-old female admitted with generalized weakness, aspiration pneumonia, septic shock, cellulitis of legs. Evaluated and treated by multiple consults. Maintained on IV antibiotics as per infectious disease. Significant clinical improvement. Cleared by all consults for discharge to [facility] rehab. Patient is being discharged in a stable condition with guarded prognosis. Microbiology 02/20/17 21:20 Blood Blood Culture - Final No Growth after 144 hours 02/22/17 07:40 Sputum Gram Stain - Final 02/22/17 07:40 Sputum Sputum Culture - Final Methicillin resist S. aureus Rosa albicans 02/20/17 21:20 Urine,Catheterized Urine Culture - Final Proteus mirabilis Enterococcus faecalis The impression and plan of care has been dictated as directed as a scribe. : I performed a H&P examination of this patient and discussed the same with the dictator. I agree with the dictator's note. Any additional findings/opinions/ etc. will be noted. Patient Condition at Discharge: Serious Plan - Discharge Summary New Discharge Prescriptions: New Aspirin 81 mg PO DAILY HYDROcodone/APAP 5-325MG [[place] 5-325] 1 each PO Q6H PRN #20 tab PRN Reason: moderate Pain Ipratropium-Albuterol Nebulize [Duoneb 0.5 mg-3 mg/3 ml Soln] 3 ml INHALATION RT-QID neb Ipratropium-Albuterol Nebulize [Duoneb 0.5 mg-3 mg/3 ml Soln] 3 ml INHALATION RT-Q2H PRN neb PRN Reason: Shortness Of Breath Or Wheezing cefTRIAXone [Rocephin] 2,000 mg IVPB Q24HR #7 vial Vancomycin 1,500 mg IVPB Q16H #10 bag Furosemide [Lasix] 40 mg PO DAILY #1 tablet INSULIN LISPRO (HumaLOG) [humaLOG] 0 unit SQ Q6H #1 vial Continue Atorvastatin [Lipitor] 40 mg PO HS Allopurinol [Zyloprim] 100 mg PO BID Cholecalciferol [Vitamin D3] 1,000 unit PO DAILY Ferrous Sulfate [Iron (65 MG Elemental)] 650 mg PO DAILY Magnesium Hydroxide [Milk of Magnesia] 2,400 mg PO DAILY PRN PRN Reason: Constipation Polyethylene Glycol 3350 [Miralax] 17 gm PO DAILY Acetaminophen [Tylenol] 650 mg PO Q4H PRN PRN Reason: Fever And/Or Mild Pain Ranitidine HCl [Zantac] 150 mg PO HS Bisacodyl [Dulcolax] 10 mg PO DAILY PRN PRN Reason: Constipation Cranberry Fruit Concentrate [Cranberry] 900 mg PO DAILY L.acidoph,Paracasei, B.lactis [Probiotic] 2 cap PO DAILY Multivitamins, Thera [Multivitamin (formulary)] 1 tab PO DAILY Sennosides-Docusate Sodium [Senokot-S] 1 tab PO DAILY Na Phos,M-B/Na Phos,Di-Ba [Fleet Adult] 133 ml RECTAL DAILY PRN PRN Reason: Constipation Discontinued Potassium Chloride [Klor-Con 20] 20 meq PO DAILY #30 tab Furosemide [Lasix] 80 mg PO QAM Calcium Carbonate/Vitamin D3 [Calcium 600-Vit D3 400 Caplet] 1 tab PO DAILY rOPINIRole HCL [Requip] 0.25 mg PO HS Morphine Sulfate ER [Ms Contin] 30 mg PO Q12HR #60 tablet Pregabalin [Lyrica] 150 mg PO BID #60 capsule Sulfamethox-Tmp 800-160Mg [Bactrim DS 800-160 mg] 1 tab PO BID DULoxetine HCL [Cymbalta] 60 mg PO DAILY tiZANidine HCL 4 mg PO DAILY Discharge Medication List Atorvastatin [Lipitor] 40 mg PO HS 08/30/15 [History] Allopurinol [Zyloprim] 100 mg PO BID 05/21/16 [History] Cholecalciferol [Vitamin D3] 1,000 unit PO DAILY 06/29/16 [History] Ferrous Sulfate [Iron (65 MG Elemental)] 650 mg PO DAILY 06/29/16 [History] Magnesium Hydroxide [Milk of Magnesia] 2,400 mg PO DAILY PRN 06/29/16 [History] Polyethylene Glycol 3350 [Miralax] 17 gm PO DAILY 06/29/16 [History] Acetaminophen [Tylenol] 650 mg PO Q4H PRN 10/27/16 [History] Ranitidine HCl [Zantac] 150 mg PO HS 01/12/17 [History] Bisacodyl [Dulcolax] 10 mg PO DAILY PRN 01/26/17 [History] Cranberry Fruit Concentrate [Cranberry] 900 mg PO DAILY 02/20/17 [History] L.acidoph,Paracasei, B.lactis [Probiotic] 2 cap PO DAILY 02/20/17 [History] Multivitamins, Thera [Multivitamin (formulary)] 1 tab PO DAILY 02/20/17 [History ] Na Phos,M-B/Na Phos,Di-Ba [Fleet Adult] 133 ml RECTAL DAILY PRN 02/20/17 [ History] Sennosides-Docusate Sodium [Senokot-S] 1 tab PO DAILY 02/20/17 [History] Aspirin 81 mg PO DAILY 03/03/17 [Rx] Furosemide [Lasix] 40 mg PO DAILY #1 tablet 03/03/17 [Rx] HYDROcodone/APAP 5-325MG [[place] 5-325] 1 each PO Q6H PRN #20 tab 03/03/17 [Rx] INSULIN LISPRO (HumaLOG) [humaLOG] 0 unit SQ Q6H #1 vial 03/03/17 [Rx] Ipratropium-Albuterol Nebulize [Duoneb 0.5 mg-3 mg/3 ml Soln] 3 ml INHALATION RT -Q2H PRN neb 03/03/17 [Rx] Ipratropium-Albuterol Nebulize [Duoneb 0.5 mg-3 mg/3 ml Soln] 3 ml INHALATION RT -QID neb 03/03/17 [Rx] Vancomycin 1,500 mg IVPB Q16H #10 bag 03/03/17 [Rx] cefTRIAXone [Rocephin] 2,000 mg IVPB Q24HR #7 vial 03/03/17 [Rx] Follow up Appointment(s)/Referral(s): Aquilino Khanna MD [Primary Care Provider] - 3 Days (after dc from [facility]) Carlo Frederick MD [REFERRING] - 3 Days (while at [facility]) Ambulatory/Diagnostic Orders: Basic Metabolic Panel [LAB.AMB] Location: Determined By Patient Complete Blood Count w/diff [LAB.AMB] Location: Determined By Patient Vancomycin,Trough [LAB.AMB] Location: Determined By Patient Activity/Diet/Wound Care/Special Instructions: [facility] antibiotics as per infectious disease. Lasix dose decreased. Strict aspiration precautions Discharge Disposition: TRANSFER TO [facility]/F
[2017-03-03 17:54] LABS: Glucose,Whole Blood 138 mg/dL (75-99)
[2017-03-03 19:02] VITALS: PULSE 78
[2017-03-03 20:08] LABS: Glucose,Whole Blood 150 mg/dL (75-99)
--- NOTE | 2017-03-03 20:57 | P.PN ---
Subjective Principal diagnosis: Altered mental status 66-year-old female presents from extended care facility where she has been receiving her care. She has a history of obesity, generalized weakness, falls with decreasing ability to ambulate. Because of this she was transferred to extended care to receive further care to wounds and her multiple medical troubles including her diabetes. It is related from the outside emergency center that the patient presented there with bradycardia with heart rate in the 50s, with a hernandez cyanotic status with a pulse ox of 75%. She required intubation and transferred to our intensive care unit. At the time of transfer she had evidence of acute renal failure with a creatinine now 3.4 and evidence of extensive lactic acidosis at 5.5. The patient remains in the intensive care unit intubated and mechanically ventilated. She's not had extensive sedation and is slow to respond is better responsive today Remains without fevers no further hypotension doing well fluid resuscitation. Concerns to sepsis from the skin, pneumonia and urine at admission. Patient has now had some recovery. Still has poor mental status. He has no desire to eat. Her family has been in. The try to motivate her to try to want to stay alive. She does have a grandchild coming in the near future. The family is hoping this will give her some desire. Will be utilized for the chronic ulceration to the left leg that she finds painful. The discharge will go to extended care. Prognosis is very poor. Little change in the last 24 hours Objective - Vital Signs Vital signs: Vital Signs Temp 98.3 F 03/03/17 07:00 Pulse 78 03/03/17 19:01 Resp 20 03/03/17 07:00 BP 122/65 03/03/17 07:00 Pulse Ox 97 03/03/17 07:00 Intake & Output 03/03/17 03/03/17 03/04/17 06:59 18:59 06:59 Output Total 801 Balance -801 Weight 89.5 kg Output: Urine 800 Uretheral (Coffey) 800 Stool 1 Other: Voiding Method Indwelling Catheter Indwelling Catheter - Exam 66-year-old woman who began out of the ICU but still a poor historian at this time. HEENT: Anicteric conjunctiva are pink and moist nasal mucosa grossly intact without significant lesions, there is no thrush. Oral cavity is dry Neck: The neck is supple without significant lymphadenopathy or thyromegaly. Lungs: Symmetrical air entry with basilar crackles and expiratory wheezes Heart: Irregular with a positive S4 There is no significant murmur click or rub , PMI was nondisplaced. Abdomen: Obese, Positive bowel sounds soft and nontender without palpable masses or organomegaly. There was no guarding or rebound. Extremities: Upper and lower extremities have evidence of some edema. The left lower extremity has evidence of the extensive lateral ulceration. It bleeds easily with dressing change. Please see the nursing photography for the extent of this ulceration. Skin there is evidence also of stage II pressure ulcerations to the left buttocks and coccyx for which the zinc product is applied. Neuro: She is arousable. Does say a few words. Content of speech is somewhat poor. She has poor upper extremity strength. - Labs CBC & Chem 7: 03/03/17 15:54 03/03/17 13:33 Labs: Abnormal Lab Results - Last 24 Hours (Table) 03/02/17 03/03/17 03/03/17 Range/Units 21:15 05:48 05:48 RBC 2.58 L (3.80-5.40) m/uL Hgb 7.4 L (11.4-16.0) gm/dL Hct 24.4 L (34.0-46.0) % MCHC 30.5 L (31.0-37.0) g/dL RDW 19.7 H (11.5-15.5) % Lymphocytes # 0.9 L (1.0-4.8) k/uL Potassium 3.3 L 3.4 L (3.5-5.1) mmol/L Chloride 117 H (98-107) mmol/L Carbon Dioxide 19 L (22-30) mmol/L BUN 19 H (7-17) mg/dL Glucose 118 H (74-99) mg/dL POC Glucose (mg/dL) (75-99) mg/dL Calcium 8.2 L (8.4-10.2) mg/dL 03/03/17 03/03/17 03/03/17 Range/Units 07:44 12:05 15:54 RBC 2.62 L (3.80-5.40) m/uL Hgb 7.9 L (11.4-16.0) gm/dL Hct 23.7 L (34.0-46.0) % MCHC (31.0-37.0) g/dL RDW 19.4 H (11.5-15.5) % Lymphocytes # (1.0-4.8) k/uL Potassium (3.5-5.1) mmol/L Chloride (98-107) mmol/L Carbon Dioxide (22-30) mmol/L BUN (7-17) mg/dL Glucose (74-99) mg/dL POC Glucose (mg/dL) 133 H 119 H (75-99) mg/dL Calcium (8.4-10.2) mg/dL 03/03/17 03/03/17 Range/Units 17:42 20:00 RBC (3.80-5.40) m/uL Hgb (11.4-16.0) gm/dL Hct (34.0-46.0) % MCHC (31.0-37.0) g/dL RDW (11.5-15.5) % Lymphocytes # (1.0-4.8) k/uL Potassium (3.5-5.1) mmol/L Chloride (98-107) mmol/L Carbon Dioxide (22-30) mmol/L BUN (7-17) mg/dL Glucose (74-99) mg/dL POC Glucose (mg/dL) 138 H 150 H (75-99) mg/dL Calcium (8.4-10.2) mg/dL Laboratory Results WBC 6.6 k/uL (3.8-10.6) 03/03/17 15:54 RBC 2.62 m/uL (3.80-5.40) L 03/03/17 15:54 Hgb 7.9 gm/dL (11.4-16.0) L 03/03/17 15:54 Hct 23.7 % (34.0-46.0) L 03/03/17 15:54 MCV 90.6 fL (80.0-100.0) 03/03/17 15:54 MCH 30.1 pg (25.0-35.0) 03/03/17 15:54 MCHC 33.2 g/dL (31.0-37.0) 03/03/17 15:54 RDW 19.4 % (11.5-15.5) H 03/03/17 15:54 Plt Count 249 k/uL (150-450) 03/03/17 15:54 Neutrophils % 77 % 03/03/17 15:54 Neutrophils % (Manual) 48.0 % 02/20/17 21:20 Band Neutrophils % 36.0 % 02/20/17 21:20 Lymphocytes % 15 % 03/03/17 15:54 Lymphocytes % (Manual) 12.0 % 02/20/17 21:20 Monocytes % 3 % 03/03/17 15:54 Monocytes % (Manual) 3.0 % 02/20/17 21:20 Eosinophils % 3 % 03/03/17 15:54 Eosinophils % (Manual) 1.0 % 02/20/17 21:20 Basophils % 0 % 03/03/17 15:54 Neutrophils # 5.1 k/uL (1.3-7.7) 03/03/17 15:54 Neutrophils # (Manual) 6.4 k/uL (1.3-7.7) 02/20/17 21:20 Lymphocytes # 1.0 k/uL (1.0-4.8) 03/03/17 15:54 Lymphocytes # (Manual) 0.9 k/uL (1.0-4.8) L 02/20/17 21:20 Monocytes # 0.2 k/uL (0-1.0) 03/03/17 15:54 Monocytes # (Manual) 0.2 k/uL (0-1.0) 02/20/17 21:20 Eosinophils # 0.2 k/uL (0-0.7) 03/03/17 15:54 Eosinophils # (Manual) 0.1 k/uL (0-0.7) 02/20/17 21:20 Basophils # 0.0 k/uL (0-0.2) 03/03/17 15:54 Nucleated RBCs 0 /100 WBC (0-0) 02/20/17 21:20 Manual Slide Review Performed 02/20/17 21:20 Hypochromasia Slight 03/03/17 15:54 Poikilocytosis Slight 02/28/17 06:05 Anisocytosis Slight 03/03/17 15:54 Macrocytosis Slight 03/03/17 05:48 PT 12.1 sec (9.0-12.0) H 02/28/17 06:05 INR 1.2 (<1.2) H 02/28/17 06:05 APTT 28.0 sec (22.0-30.0) 02/20/17 21:20 Sample Site lrad 02/22/17 14:08 ABG pH 7.43 (7.35-7.45) 02/22/17 14:08 ABG pCO2 31 mmHg (35-45) L 02/22/17 14:08 ABG pO2 93 mmHg (83-108) 02/22/17 14:08 ABG HCO3 20 mmol/L (21-25) L 02/22/17 14:08 ABG Total CO2 21 mmol/L (19-24) 02/22/17 14:08 ABG O2 Saturation 98.0 % (94-97) H 02/22/17 14:08 ABG Base Excess -3.4 mmol/L 02/22/17 14:08 FiO2 50 % 02/22/17 14:08 Sodium 142 mmol/L (137-145) 03/03/17 05:48 Potassium 4.2 mmol/L (3.5-5.1) 03/03/17 13:33 Chloride 117 mmol/L (98-107) H 03/03/17 05:48 Carbon Dioxide 19 mmol/L (22-30) L 03/03/17 05:48 Anion Gap 6 mmol/L 03/03/17 05:48 BUN 19 mg/dL (7-17) H 03/03/17 05:48 Creatinine 0.80 mg/dL (0.52-1.04) 03/03/17 05:48 Est GFR (MDRD) Af Amer >60 (>60 ml/min/1.73 sqM) 03/03/17 05:48 Est GFR (MDRD) Non-Af >60 (>60 ml/min/1.73 sqM) 03/03/17 05:48 Glucose 118 mg/dL (74-99) H 03/03/17 05:48 POC Glucose (mg/dL) 150 mg/dL (75-99) H 03/03/17 20:00 POC Glu Lumber Straightener ID Urmila Persaud 03/03/17 20:[address] Glu mg/dL 137 mg/dL 02/21/17 05:55 Hemoglobin A1c 6.4 % (4.2-6.1) H 02/21/17 05:55 Lactic Ac Sepsis Rflx Y 02/20/17 21:47 Plasma Lactic Acid Maximus 1.9 mmol/L (0.7-2.0) 02/21/17 01:03 Calcium 8.2 mg/dL (8.4-10.2) L 03/03/17 05:48 Phosphorus 2.6 mg/dL (2.5-4.5) 02/26/17 06:15 Magnesium 1.6 mg/dL (1.6-2.3) 02/27/17 12:00 Total Bilirubin 0.4 mg/dL (0.2-1.3) 02/24/17 06:15 AST 18 U/L (14-36) 02/24/17 06:15 ALT 26 U/L (9-52) 02/24/17 06:15 Alkaline Phosphatase 108 U/L (38-126) 02/24/17 06:15 Troponin I 0.047 ng/mL (0.000-0.034) H* 02/20/17 21:20 Total Protein 5.6 g/dL (6.3-8.2) L 02/24/17 06:15 Albumin 2.2 g/dL (3.5-5.0) L 02/24/17 06:15 TSH 0.275 mIU/L (0.465-4.680) L 02/22/17 04:20 Free T4 1.10 ng/dL (0.78-2.19) 02/22/17 04:20 Free T3 pg/mL 2.0 pg/ml (2.8-5.3) L 02/22/17 04:20 Urine Color Yellow 02/20/17 21:20 Urine Appearance Cloudy (Clear) H 02/20/17 21:20 Urine pH 5.5 (5.0-8.0) 02/20/17 21:20 Ur Specific [place] 1.012 (1.001-1.035) 02/20/17 21:20 Urine Protein 1+ (Negative) H 02/20/17 21:20 Urine Glucose (UA) Negative (Negative) 02/20/17 21:20 Urine Ketones Negative (Negative) 02/20/17 21:20 Urine Blood Trace (Negative) H 02/20/17 21:20 Urine Nitrite Negative (Negative) 02/20/17 21:20 Urine Bilirubin Negative (Negative) 02/20/17 21:20 Urine Urobilinogen <2.0 mg/dL (<2.0) 02/20/17 21:20 Ur Leukocyte Esterase Large (Negative) H 02/20/17 21:20 Urine RBC 8 /hpf (0-5) H 02/20/17 21:20 Urine WBC >182 /hpf (0-5) H 02/20/17 21:20 Urine WBC Clumps Few /hpf (None) H 02/20/17 21:20 Ur Squamous Epith Cells 1 /hpf (0-4) 02/20/17 21:20 Urine Bacteria Moderate /hpf (None) H 02/20/17 21:20 Urine Mucus Rare /hpf (None) H 02/20/17 21:20 Urine Yeast (Budding) Few /hpf (None) H 02/20/17 21:20 Blood Type A Positive 02/24/17 08:33 Blood Type Recheck No 02/24/17 08:33 Antibody Screen NEGATIVE 02/24/17 08:33 Crossmatch See Detail 02/24/17 08:33 Spec Expiration Date 02/27/2017 - 7973 02/24/17 08:33 Microbiology 02/20/17 21:20 Blood Blood Culture - Final No Growth after 144 hours 02/22/17 07:40 Sputum Gram Stain - Final 02/22/17 07:40 Sputum Sputum Culture - Final Methicillin resist S. aureus Rosa albicans 02/20/17 21:20 Urine,Catheterized Urine Culture - Final Proteus mirabilis Enterococcus faecalis Assessment and Plan (1) Septic shock Narrative/Plan: 66-year-old female with multiple medical troubles presents as a transfer from an outside hospital with evidence of hypotension, respiratory failure and sepsis. She required intubation and mechanical ventilation. She remains on the ventilator. Oxygenation is improving as is her acidosis. She over does have septic shock requiring fluid resuscitation and vasopressor therapy and has evidence of acute renal failure as well as altered mental status. There are recent cultures that show evidence of MRSA and Proteus from her infected left leg. With this antibiotic therapy is utilized with Ceftaroline with pharmacy dosing. Cultures are in process of blood urine and sputum which may further help direct her therapy. Her prognosis is very poor given the current circumstances. Leukocytosis was due to her sepsis Her chronic anemia has worsened, and despite her obesity has evidence of moderate protein calorie malnutrition. The patient's cultures are finalized. There is evidence of MRSA Proteus and enterococcus being isolated. She's had a significant improvement this point in time with the current interventions. Does continue to have her poor mental status. This is contemplation for transition to the extended care facility may then alter antibiotic therapy to vancomycin with Rocephin based on the current cultures and inability for the facility to continue with Ceftaroline. to complete the next 7 days of therapy. Local wound care continues as above Status: Acute (2) Respiratory failure Status: Resolved (3) Leukocytosis Status: Acute (4) Acute renal failure (ARF) Status: Acute
--- NOTE | 2017-03-22 08:21 | CDI ---
In responding to this query, please exercise your independent professional judgment. The [facility] Coding Staff and Clinical Documentation Specialists appreciate your assistance in clarifying documentation, maintaining compliance with coding guidelines, accurately documenting patients condition and capturing severity of illness. The fact that a question is asked does not imply that any particular answer is desired or expected. Communication forms are a method of clarifying documentation and are not made part of the Legal Health Record. Thank you in advance for your clarification. Last Revision, May 2015 Kristin Shearer [address] [place] [address] Documentation Clarification Form Date: 02/22/2017 2:32:00 PM Resubmitted 03/22/2017 From: Liz Haynes, KAYLAN, CCDS Admit Date: 02/20/2017 11:10:00 PM Patient Name: Rain Lagn Visit Number: [id number] Discharge Date: 03/03/2017 Dr. Shelby Mckeon: A diagnosis of UTI has been documented in the ER note, the pulmonary/critical care consult & progress note. History/Risk factors: Resides in [facility] due to multiple falls, inability to ambulate. Hx frequent UTIs, pneumonia, MRSA, VRE infections, lower extremity cellulitis, IDDM. Per documentation in the nursing note this patient was admitted with an indwelling Coffey catheter. Clinical Indicators: Urinalysis: Cloudy, 1+ protein, trace blood, large esterase, WBC >182, Moderate bacteria. Urine culture: Gram Neg Bacilli, Gr D Enterococcus. Lab results: Blood culture & sputum culture pending. WBC 7.6-14.6, Hgb 7.6-8.0* , BUN 61^, Cr 3.10^, Gluc 179^, Lactic Acid 2.6^^. Treatment: IV Vanco, IV Levaquin, IV Norepinephrine, IV fluid, IV Narcan, IV fluid. In your professional opinion, can you please clarify the etiology of the UTI, if known? Coffey catheter Suprapubic catheter Urostomy UTI not related to catheter/urostomy Other condition, please specify Unable to determine If an infective organism is present, please specify cause and effect relationship if applicable. Please document in your progress notes and discharge summary in order to capture severity of illness and risk of mortality. Include clinical findings that support your diagnosis. FYI: Press F11 to launch patient chart MTDD
== END 2017-03-03 20:27 | DRG 698 ==
LOC: EC 20:48 → 6ICU 23:10 → 5MS5E 02-23 18:03
PROVIDERS: ADMIT Family Medicine; ATTEND Family Medicine
PROC: 5A1945Z Respiratory Ventilation, 24-96 Consecutive Hours (ICD-10-PCS; 2017-02-20)
PROC: 05H533Z Insertion of Infusion Device into Right Subclavian Vein, Percutaneous Approach (ICD-10-PCS; 2017-02-20)
PROC: 0T9B70Z Drainage of Bladder with Drainage Device, Via Natural or Artificial Opening (ICD-10-PCS; 2017-02-20)
PROC: 0DH67UZ Insertion of Feeding Device into Stomach, Via Natural or Artificial Opening (ICD-10-PCS; 2017-02-21)
PROC: 3E0G76Z Introduction of Nutritional Substance into Upper GI, Via Natural or Artificial Opening (ICD-10-PCS; 2017-02-21)
PROC: 30243N1 Transfusion of Nonautologous Red Blood Cells into Central Vein, Percutaneous Approach (ICD-10-PCS; principal; 2017-02-24)
DX: T83.511A Infection and inflammatory reaction due to indwelling urethral catheter, initial encounter (principal); A41.02 Sepsis due to Methicillin resistant Staphylococcus aureus; J96.01 Acute respiratory failure with hypoxia; R65.21 Severe sepsis with septic shock; J69.0 Pneumonitis due to inhalation of food and vomit; G93.41 Metabolic encephalopathy; N17.9 Acute kidney failure, unspecified; L89.152 Pressure ulcer of sacral region, stage 2; E87.0 Hyperosmolality and hypernatremia; E87.2 Acidosis; I47.1 Supraventricular tachycardia; L03.115 Cellulitis of right lower limb; L03.116 Cellulitis of left lower limb; E44.0 Moderate protein-calorie malnutrition; I82.532 Chronic embolism and thrombosis of left popliteal vein; N39.0 Urinary tract infection, site not specified; I95.9 Hypotension, unspecified; E11.22 Type 2 diabetes mellitus with diabetic chronic kidney disease; I27.2 Other secondary pulmonary hypertension; Z66 Do not resuscitate; N18.9 Chronic kidney disease, unspecified; E87.6 Hypokalemia; R00.1 Bradycardia, unspecified; E78.5 Hyperlipidemia, unspecified; I12.9 Hypertensive chronic kidney disease with stage 1 through stage 4 chronic kidney disease, or unspecified chronic kidney disease; E11.622 Type 2 diabetes mellitus with other skin ulcer; B96.4 Proteus (mirabilis) (morganii) as the cause of diseases classified elsewhere; E11.628 Type 2 diabetes mellitus with other skin complications; L89.892 Pressure ulcer of other site, stage 2; L89.322 Pressure ulcer of left buttock, stage 2; G89.29 Other chronic pain; E78.00 Pure hypercholesterolemia, unspecified; E11.42 Type 2 diabetes mellitus with diabetic polyneuropathy; F32.9 Major depressive disorder, single episode, unspecified; F41.9 Anxiety disorder, unspecified; M79.7 Fibromyalgia; G43.909 Migraine, unspecified, not intractable, without status migrainosus; E66.9 Obesity, unspecified; G47.33 Obstructive sleep apnea (adult) (pediatric); F12.90 Cannabis use, unspecified, uncomplicated; R29.6 Repeated falls; R23.0 Cyanosis; B95.2 Enterococcus as the cause of diseases classified elsewhere; M48.54XD Collapsed vertebra, not elsewhere classified, thoracic region, subsequent encounter for fracture with routine healing; R10.9 Unspecified abdominal pain; K56.41 Fecal impaction; E87.70 Fluid overload, unspecified; M54.9 Dorsalgia, unspecified; K64.9 Unspecified hemorrhoids; L30.9 Dermatitis, unspecified; R53.1 Weakness; D64.9 Anemia, unspecified; Z71.3 Dietary counseling and surveillance; Z68.32 Body mass index [BMI] 32.0-32.9, adult; Z79.899 Other long term (current) drug therapy; Z82.49 Family history of ischemic heart disease and other diseases of the circulatory system; Z83.3 Family history of diabetes mellitus; Z99.3 Dependence on wheelchair; Z98.84 Bariatric surgery status; Z96.641 Presence of right artificial hip joint; Z79.4 Long term (current) use of insulin; Z86.14 Personal history of Methicillin resistant Staphylococcus aureus infection; Z86.73 Personal history of transient ischemic attack (TIA), and cerebral infarction without residual deficits; Z74.01 Bed confinement status; Z86.19 Personal history of other infectious and parasitic diseases; Z87.828 Personal history of other (healed) physical injury and trauma; Z87.19 Personal history of other diseases of the digestive system; Z87.11 Personal history of peptic ulcer disease; Z87.440 Personal history of urinary (tract) infections; Z86.69 Personal history of other diseases of the nervous system and sense organs; Z87.891 Personal history of nicotine dependence; Z91.81 History of falling; Z88.1 Allergy status to other antibiotic agents; Z91.040 Latex allergy status; Z91.010 Allergy to peanuts; Z88.0 Allergy status to penicillin; Z88.7 Allergy status to serum and vaccine; Z91.048 Other nonmedicinal substance allergy status; Z79.2 Long term (current) use of antibiotics; Z80.9 Family history of malignant neoplasm, unspecified; Z90.49 Acquired absence of other specified parts of digestive tract; Z98.51 Tubal ligation status; Z96.652 Presence of left artificial knee joint; Z87.42 Personal history of other diseases of the female genital tract; Z95.828 Presence of other vascular implants and grafts
CPT/HCPCS: 36415; 36556; 36600; 51701; 70450; 71010; 74177; 80048; 80053; 81001; 82805; 83036; 83605; 83735; 84100; 84132; 84439; 84443; 84481; 84484; 85025; 85027; 85610; 85730; 86850; 86900; 86901; 86920; 87040; 87070; 87077; 87086; 87186; 87205; 93005; 93306; 94002; 94003; 94640; 94760; 95816; 96365; 96366; 96368; 99291; 99292

== ENCOUNTER 2017-04-20 16:23 | Inpatient (IN) | payer MEDICARE, OTHER ==
[2017-04-20] MEDS ORDERED: SODIUM CHLORIDE 0.9% 1,000 ML IV ONE (16:47)
--- NOTE | 2017-04-20 17:14 | ED ---
Fever HPI - General Source: patient, EMS, RN notes reviewed Mode of arrival: EMS Limitations: no limitations <Ab Trevizo - Last Filed: 04/20/17 19:48> <Everett Metzger - Last Filed: 04/20/17 20:03> - General Chief Complaint: Fever Stated Complaint: Fever Time Seen by Provider: 04/20/17 16:26 - History of Present Illness Initial Comments: This a 66-year-old female presents emergency Department chief complaint of fever. Patient is brought to emergency room via EMS from [facility]. Patient reportedly had a fever with no known source. They're concerned about her central line. Patient states she is unsure why she is actually a [place]. She does admit to chronic wound to her left leg. She denies cough, chest congestion, abdominal pain, neck pain, headache or dizziness. Patient is unsure if she is on antibiotics or not. They will with the patient shows that she's had pneumonia from MRSA also chronic wounds of her left lower leg (Ab Trevizo) - Related Data Home Medications Medication Instructions Recorded Confirmed Atorvastatin [Lipitor] 40 mg PO HS 08/30/15 04/20/17 Allopurinol [Zyloprim] 100 mg PO BID 05/21/16 04/20/17 Cholecalciferol [Vitamin D3] 1,000 unit PO HS 06/29/16 04/20/17 Ferrous Sulfate [Iron (65 MG 650 mg PO HS 06/29/16 04/20/17 Elemental)] Magnesium Hydroxide [Milk of 2,400 mg PO DAILY PRN 06/29/16 04/20/17 Magnesia] Polyethylene Glycol 3350 [Miralax] 17 gm PO DAILY 06/29/16 04/20/17 Acetaminophen [Tylenol] 650 mg PO Q4H PRN 10/27/16 04/20/17 Bisacodyl [Dulcolax] 10 mg PO DAILY PRN 01/26/17 04/20/17 Cranberry Fruit Concentrate 900 mg PO HS 02/20/17 04/20/17 [Cranberry] L.acidoph,Paracasei, B.lactis 2 cap PO HS 02/20/17 04/20/17 [Probiotic] Multivitamins, Thera [Multivitamin 1 tab PO DAILY 02/20/17 04/20/17 (formulary)] Na Phos,M-B/Na Phos,Di-Ba [Fleet 133 ml RECTAL DAILY PRN 02/20/17 04/20/17 Adult] Sennosides-Docusate Sodium 1 tab PO HS 02/20/17 04/20/17 [Senokot-S] Melatonin 3 mg PO HS 03/23/17 04/20/17 Menthol [Biofreeze] 1 applic TOPICAL TID 03/23/17 04/20/17 Menthol/Zinc Oxide [Calmoseptine 1 applic TOPICAL TID 03/23/17 04/20/17 Ointment] Potassium Chloride ER [K-Dur 20] 20 meq PO HS 03/23/17 04/20/17 ALPRAZolam [Xanax] 0.25 mg PO BID PRN 04/20/17 04/20/17 Aspirin 81 mg PO HS 04/20/17 04/20/17 Escitalopram [Lexapro] 10 mg PO DAILY 04/20/17 04/20/17 INSULIN LISPRO (HumaLOG) [humaLOG] See Protocol SQ ACHS 04/20/17 04/20/17 Ipratropium-Albuterol Nebulize 3 ml INHALATION RT-QID PRN 04/20/17 04/20/17 [Duoneb 0.5 mg-3 mg/3 ml Soln] Omeprazole 20 mg PO DAILY 04/20/17 04/20/17 Previous Rx's Medication Instructions Recorded Furosemide [Lasix] 40 mg PO DAILY #1 tablet 03/03/17 Allergies Allergy/AdvReac Type Severity Reaction Status Date / Time adhesive tape Allergy Severe Rash/Hives Verified 04/20/17 17:16 cephalexin monohydrate Allergy Severe Rash/Hives Verified 04/20/17 17:16 [From Keflex] influenza virus vaccine, Allergy Severe Anaphylaxis Verified 04/13/17 10:53 specific [influenza virus vacc,specific] latex Allergy Severe Rash/Hives Verified 04/20/17 17:16 peanut Allergy Severe Anaphylaxis Verified 04/20/17 17:16 Penicillins Allergy Severe Swelling Verified 04/20/17 17:16 tetanus toxoid, adsorbed Allergy Intermediate Rash/Hives Verified 04/20/17 17:16 Influenza Virus Vaccines Allergy Anaphylaxis Verified 04/20/17 17:16 Review of Systems ROS Other: All systems not noted in ROS Statement are negative. <Ab Trevizo - Last Filed: 04/20/17 19:48> ROS Other: All systems not noted in ROS Statement are negative. <Everett Metzger - Last Filed: 04/20/17 20:03> ROS Statement: Those systems with pertinent positive or pertinent negative responses have been documented in the HPI. Past Medical History Past Medical History: Diabetes Mellitus, Deep Vein Thrombosis (DVT), Fibromyalgia, GI Bleed, Hypertension, Skin Disorder, Sleep Apnea/CPAP/BIPAP Additional Past Medical History / Comment(s): Pt recently fell (April 2016) and had L eye contusion/L lower leg laceration-surgically repaired/DVT L lower leg and acute blood loss anemia. Other HX: IDDM type II, DVT L leg, bilateral lower leg cellulitis with L lower leg cellulitis. rt heel pressure ulcer-SINCE HEALED, peripheral neuropathy bilateral hands and feet, falls, chronic UTI'S, bilateral tinnitis, hemorrhoids, migraines, obesity, high cholesterol, chronic back pain, eczema, sinus problems, sleep apnea no CPAP, stomach ulcers, lower GI bleed. 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 MDRO Source:: sputum-MRSA; Urine-VRE Past Surgical History: Adenoidectomy, Bariatric Surgery, Cholecystectomy, Joint Replacement, Tonsillectomy, Tubal Ligation Additional Past Surgical History / Comment(s): Gastric bypass, [place]-en-Y in 2003 , Lizzy filter placement in 2000, teeth extraction, colonoscopy, EGD, hemorrhoidectomy, panniculectomy, D&C, hystoscopy x 2, LT KNEE replaced 2005- MRSA infection-hardware removed and cemented then replaced again, L hip repair with screw and total R hip REPLACEMENT, bilateral heel spurs removed, bilateral carpal tunnel releases, D&Cs, infusaport insertion since removed. Past Anesthesia/Blood Transfusion Reactions: No Reported Reaction Additional Past Anesthesia/Blood Transfusion Reaction / Comment(s): pt has received blood in the past without reaction. Past Psychological History: Anxiety, Depression Smoking Status: Former smoker Past Alcohol Use History: Rare Past Drug Use History: Marijuana, Marijuana - Past Family History Father Family Medical History: Myocardial Infarction ([place]) Additional Family Medical History / Comment(s): AT AGE 46-[place] Mother Family Medical History: Diabetes Mellitus Additional Family Medical History / Comment(s): AT AGE 66 FROM COMPLICATIONS FROM DM Sister(s) Family Medical History: Diabetes Mellitus Brother(s) Family Medical History: Diabetes Mellitus Daughter(s) Family Medical History: Cancer Son(s) Family Medical History: No Reported History <Ab Trevizo - Last Filed: 04/20/17 19:48> General Exam Limitations: no limitations General appearance: alert, in no apparent distress Head exam: Present: atraumatic, normocephalic, normal inspection Eye exam: Present: normal appearance, PERRL, EOMI. Absent: scleral icterus, conjunctival injection, periorbital swelling Respiratory exam: Present: normal lung sounds bilaterally. Absent: respiratory distress, wheezes, rales, rhonchi, stridor Cardiovascular Exam: Present: regular rate, normal rhythm, normal heart sounds. Absent: systolic murmur, diastolic murmur, rubs, gallop, clicks GI/Abdominal exam: Present: soft, normal bowel sounds. Absent: distended, tenderness, guarding, rebound, rigid Extremities exam: Present: other (Left lower extremity there is chronic wounds noted mild erythema purulent drainage) Neurological exam: Present: alert, oriented X3, CN II-XII intact Skin exam: Present: warm, dry, intact, normal color. Absent: rash <Ab Trevizo - Last Filed: 04/20/17 19:48> Course <Ab Trevizo - Last Filed: 04/20/17 19:48> <Everett Metzger - Last Filed: 04/20/17 20:03> Vital Signs 04/20/17 04/20/17 04/20/17 16:25 19:26 19:47 Temperature 101 F H 104.1 F H Pulse Rate 97 121 H 131 H Respiratory 16 16 18 Rate Blood Pressure 122/60 129/59 140/61 O2 Sat by Pulse 98 94 L 95 Oximetry - Reevaluation(s) Reevaluation #1: 04/20/17 18:57 Patient has had an elevated lactic at this time 6.5. Patient was ordered 3 L of fluid, Levaquin and ankle myosin. We do not have a peripheral line at this time. Patient's PCP was concerned about possible infection from the central line those will be used for IV fluids and antibiotics at this time until other access was achieved. At this point we do not have a urinalysis or chest x-ray. Patient has a history of pneumonia from MRSA, chronic left leg wound and recurrent urinary tract infections SOURCES. (Ab Trevizo) Reevaluation #2: 04/20/17 20:01 Physician health center assistant supervision: I did personally do a [id number] evaluation the patient did discuss the findings with her as well as with Dr. Gurrola. Patient will be admitted the x-ray does show evidence of infiltrate additionally the patient will be treated for chronic wound infection the left leg. She will be given IV fluids the lactic acid is elevated believe this is on the basis of the volume status which is clinically dehydration the patient is getting IV fluids as well as IV antibiotics. I did discuss the case again with Dr. Gurrola the patient be admitted to the telemetry unit. Reassessment will be ongoing (Everett Metzger) Medical Decision Making - Lab Data Result diagrams: 04/20/17 17:46 04/20/17 17:46 <Ab Trevizo - Last Filed: 04/20/17 19:48> - Lab Data Result diagrams: 04/20/17 17:46 04/20/17 17:46 <Everett Metzger - Last Filed: 04/20/17 20:03> - Lab Data Lab Results 04/20/17 04/20/17 04/20/17 Range/Units 17:46 17:46 17:46 WBC 10.3 (3.8-10.6) k/uL RBC 3.31 L (3.80-5.40) m/uL Hgb 10.5 L (11.4-16.0) gm/dL Hct 34.9 (34.0-46.0) % MCV 105.4 H D (80.0-100.0) fL MCH 31.7 (25.0-35.0) pg MCHC 30.1 L (31.0-37.0) g/dL RDW 17.6 H (11.5-15.5) % Plt Count 423 (150-450) k/uL Neutrophils % 68 % Lymphocytes % 27 % Monocytes % 3 % Eosinophils % 0 % Basophils % 1 % Neutrophils # 6.9 (1.3-7.7) k/uL Lymphocytes # 2.8 (1.0-4.8) k/uL Monocytes # 0.3 (0-1.0) k/uL Eosinophils # 0.0 (0-0.7) k/uL Basophils # 0.1 (0-0.2) k/uL Manual Slide Review Performed Polychromasia Present Hypochromasia Marked Anisocytosis Slight Macrocytosis Marked PT 11.1 (9.0-12.0) sec INR 1.1 (<1.2) APTT 18.5 L (22.0-30.0) sec Sodium 137 (137-145) mmol/L Potassium 4.8 (3.5-5.1) mmol/L Chloride 104 (98-107) mmol/L Carbon Dioxide 14 L (22-30) mmol/L Anion Gap 19 mmol/L BUN 25 H (7-17) mg/dL Creatinine 1.10 H (0.52-1.04) mg/dL Est GFR (MDRD) Af Amer >60 (>60 ml/min/1.73 sqM) Est GFR (MDRD) Non-Af 50 (>60 ml/min/1.73 sqM) Glucose 213 H (74-99) mg/dL Plasma Lactic Acid Maximus (0.7-2.0) mmol/L Calcium 9.4 (8.4-10.2) mg/dL Total Bilirubin 0.6 (0.2-1.3) mg/dL AST 40 H (14-36) U/L ALT 45 (9-52) U/L Alkaline Phosphatase 176 H (38-126) U/L Total Protein 7.9 (6.3-8.2) g/dL Albumin 3.4 L (3.5-5.0) g/dL Urine Color Urine Appearance (Clear) Urine pH (5.0-8.0) Ur Specific [place] (1.001-1.035) Urine Protein (Negative) Urine Glucose (UA) (Negative) Urine Ketones (Negative) Urine Blood (Negative) Urine Nitrite (Negative) Urine Bilirubin (Negative) Urine Urobilinogen (<2.0) mg/dL Ur Leukocyte Esterase (Negative) Urine RBC (0-5) /hpf Urine WBC (0-5) /hpf Ur Squamous Epith Cells (0-4) /hpf Amorphous Sediment (None) /hpf Urine Mucus (None) /hpf 04/20/17 04/20/17 Range/Units 17:46 19:22 WBC (3.8-10.6) k/uL RBC (3.80-5.40) m/uL Hgb (11.4-16.0) gm/dL Hct (34.0-46.0) % MCV (80.0-100.0) fL MCH (25.0-35.0) pg MCHC (31.0-37.0) g/dL RDW (11.5-15.5) % Plt Count (150-450) k/uL Neutrophils % % Lymphocytes % % Monocytes % % Eosinophils % % Basophils % % Neutrophils # (1.3-7.7) k/uL Lymphocytes # (1.0-4.8) k/uL Monocytes # (0-1.0) k/uL Eosinophils # (0-0.7) k/uL Basophils # (0-0.2) k/uL Manual Slide Review Polychromasia Hypochromasia Anisocytosis Macrocytosis PT (9.0-12.0) sec INR (<1.2) APTT (22.0-30.0) sec Sodium (137-145) mmol/L Potassium (3.5-5.1) mmol/L Chloride (98-107) mmol/L Carbon Dioxide (22-30) mmol/L Anion Gap mmol/L BUN (7-17) mg/dL Creatinine (0.52-1.04) mg/dL Est GFR (MDRD) Af Amer (>60 ml/min/1.73 sqM) Est GFR (MDRD) Non-Af (>60 ml/min/1.73 sqM) Glucose (74-99) mg/dL Plasma Lactic Acid Maximus 6.5 H* (0.7-2.0) mmol/L Calcium (8.4-10.2) mg/dL Total Bilirubin (0.2-1.3) mg/dL AST (14-36) U/L ALT (9-52) U/L Alkaline Phosphatase (38-126) U/L Total Protein (6.3-8.2) g/dL Albumin (3.5-5.0) g/dL Urine Color Yellow Urine Appearance Cloudy H (Clear) Urine pH 5.0 (5.0-8.0) Ur Specific [place] 1.011 (1.001-1.035) Urine Protein Trace H (Negative) Urine Glucose (UA) Negative (Negative) Urine Ketones Negative (Negative) Urine Blood Small H (Negative) Urine Nitrite Negative (Negative) Urine Bilirubin Negative (Negative) Urine Urobilinogen <2.0 (<2.0) mg/dL Ur Leukocyte Esterase Moderate H (Negative) Urine RBC 3 (0-5) /hpf Urine WBC 10 H (0-5) /hpf Ur Squamous Epith Cells 1 (0-4) /hpf Amorphous Sediment Rare H (None) /hpf Urine Mucus Rare H (None) /hpf 04/20/17 18:59 EKG performed at 18:53 sinus tachycardia with a rate of 125 ID interval 170 QRS duration 68 QT/QTC 304/438 (Ab Trevizo) Disposition <Ab Trevizo - Last Filed: 04/20/17 19:48> <Everett Metzger - Last Filed: 04/20/17 20:03> Clinical Impression: Dehydration, Sepsis, Acute renal failure (ARF), Fever, Leg wound, left, Pneumonia Disposition: ADMITTED IP TO THIS HOSP Condition: Critical Referrals: Carlo Frederick MD [Primary Care Provider] - 1-2 days
[2017-04-20] MEDS ORDERED: HYDROcodone/APAP 7.5-325MG 1 EACH TAB PO ONE (17:20)
[2017-04-20 18:10] LABS: Anisocytosis Slight; Basophils # (A) 0.1 k/uL (0-0.2); Basophils % (A) 1 %; CH 31.8; CHCM 30.4; Eosinophils % (A) 0 %; HCT 34.9 % (34.0-46.0); HDW 3.18; HGB 10.5 gm/dL (11.4-16.0); Hypochromasia Marked; Luc # (Auto) 0.13; Luc % (Auto) 1; Lymphocytes # (A) 2.8 k/uL (1.0-4.8); Lymphocytes % (A) 27 %; MCH 31.7 pg (25.0-35.0); MCHC 30.1 g/dL (31.0-37.0); Macrocytosis Marked; Mean Platelet Volume 7.4; Monocytes # (A) 0.3 k/uL (0-1.0); Monocytes % (A) 3 %; Neutrophils # (A) 6.9 k/uL (1.3-7.7); Neutrophils % (A) 68 %; RBC 3.31 m/uL (3.80-5.40); RDW 17.6 % (11.5-15.5); WBC 10.3 k/uL (3.8-10.6)
[2017-04-20 18:13] LABS: INR 1.1 (<1.2); Prothrombin Time 11.1 sec (9.0-12.0)
[2017-04-20 18:15] LABS: MCV 105.4 fL (80.0-100.0)
[2017-04-20 18:23] LABS: ALT 45 U/L (9-52); AST 40 U/L (14-36); Alkaline Phosphatase 176 U/L (38-126); Anion Gap 19 mmol/L; Blood Urea Nitrogen 25 mg/dL (7-17); Calcium 9.4 mg/dL (8.4-10.2); Carbon Dioxide 14 mmol/L (22-30); Chloride 104 mmol/L (98-107); Glucose 213 mg/dL (74-99); Non-African American GFR(MDRD) 50 (>60 ml/min/1.73 sqM); Potassium 4.8 mmol/L (3.5-5.1); Sodium 137 mmol/L (137-145); Total Bilirubin 0.6 mg/dL (0.2-1.3); Total Protein 7.9 g/dL (6.3-8.2)
[2017-04-20] MEDS ORDERED: SODIUM CHLORIDE 0.9% 2,000 ML IV ONE (18:32)
[2017-04-20] MEDS ORDERED: LEVOFLOXACIN 750MG-D5W PMX 750 MG in DEXTROSE/WATER 1 150ML.BAG IVPB STA (18:41)
[2017-04-20] MEDS ORDERED: VANCOMYCIN IV PER PHARMACY 1 EACH MISC MISCELLANE PRN (18:41)
[2017-04-20 18:44] LABS: Manual Review Performed; Polychromasia Present
[2017-04-20 18:54] LABS: Partial Thromboplastin Time 18.5 sec (22.0-30.0)
[2017-04-20] MEDS ORDERED: ACETAMINOPHEN TAB 325 MG TAB PO STA (19:00)
[2017-04-20] MEDS ORDERED: IBUPROFEN 800 MG TAB PO STA (19:23)
[2017-04-20] MEDS ORDERED: VANCOMYCIN 1,750 MG in SODIUM CHLORIDE 0.9% 250 ML IVPB ONE (19:30)
[2017-04-20 19:38] LABS: Amorphous Sediment,Urine Rare /hpf; Appearance,Urine Cloudy (Clear); Bilirubin,Urine Negative (Negative); Glucose,Urine (UA) Negative (Negative); Ketones,Urine Negative (Negative); Leukocyte Esterase,Urine Moderate (Negative); Mucus,Urine Rare /hpf; Nitrite,Urine Negative (Negative); Particle Count 7701; Protein,Urine Trace (Negative); RBC,Urine 3 /hpf (0-5); Specific Gravity,Urine 1.011 (1.001-1.035); Squamous Epithelial Cell,Urine 1 /hpf (0-4); UA Billing (MACRO vs. MICRO) MICRO; Urobilinogen,Urine <2.0 mg/dL (<2.0); WBC,Urine 10 /hpf (0-5)
[2017-04-20] MEDS ORDERED: NALOXONE 0.4 MG/ML 1 ML VIAL IV PRN (19:50)
[2017-04-20] MEDS ORDERED: IPRATROPIUM-ALBUTEROL 3 ML NEB INHALATION PRN (19:52)
[2017-04-20] MEDS ORDERED: MAGNESIUM HYDROXIDE 2,400 MG/10 ML CUP PO PRN (19:52)
--- NOTE | 2017-04-20 19:55 | XR ---
EXAMINATION TYPE: XR chest 2V DATE OF EXAM: 04/20/2017 COMPARISON: 02/22/2017 HISTORY: Fever TECHNIQUE: Frontal and lateral views of the chest are obtained. FINDINGS: There is poor inspiration. Heart is enlarged. There is general coarsening of interstitial markings. Thoracic aorta is atheromatous. There are chest leads. There is right central venous cathet er with tip over the right atrium. I see no definite pleural effusion. IMPRESSION: Cardiomegaly. Pulmonary fibrotic changes. There is clearing of most of the pulmonary vas cular congestion compared to last exam.
[2017-04-20 21:04] LABS: Hemoglobin A1C 5.6 % (4.2-6.1)
[2017-04-20] MEDS: SODIUM CHLORIDE 0.9% 1,000 ML IV SCH (22:42)
[2017-04-21 05:58] LABS: Glucose,Whole Blood 211 mg/dL (75-99)
[2017-04-21] MEDS: ATORVASTATIN 40 MG TAB PO SCH ×2 (06:04→21:02)
[2017-04-21] MEDS: POTASSIUM CHLORIDE ER 20 MEQ TAB.ER PO SCH ×2 (06:04→21:02)
[2017-04-21] MEDS: ALLOPURINOL 100 MG TAB PO SCH ×3 (06:04→21:02)
[2017-04-21] MEDS: INSULIN LISPRO (humaLOG) 300 UNIT/3 ML VIAL SQ SCH ×5 (06:06→21:39)
--- NOTE | 2017-04-21 07:45 | P.HPIM ---
History of Present Illness H&P Date: 04/21/17 This is a history of physical 66-year-old white female essentially admitted for fever that could not be controlled and the ECF. The patient has an underlying history of chronic left lower extremity deep vein thrombosis with Lizzy filter. She has difficulty with mobility. She has an underlying history of diabetes, osteoporosis and element of fever for the last 3 days which was uncontrolled. Question atelectasis. However, she has stated that she can possibly live with a daughter. She's been in ECF secondary to her worsening mobility. Blood culture is positive for significant gram-positive cocci. The patient currently is on vancomycin. She has had central access for history of long- term antibiotic use, however this is not being used now. We will pull this central line catheter and possibly need PICC versus anesthesia to insert access. Review of Systems Constitutional: Reports chills, Reports fever Eyes: denies blurred vision, denies pain Ears, nose, mouth and throat: Denies headache, Denies sore throat Cardiovascular: Denies chest pain, Denies shortness of breath Respiratory: Denies cough Gastrointestinal: Denies abdominal pain, Denies diarrhea, Denies nausea, Denies vomiting Genitourinary: Denies dysuria, Denies hematuria Past Medical History Past Medical History: Diabetes Mellitus, Deep Vein Thrombosis (DVT), Fibromyalgia, GI Bleed, Hypertension, Skin Disorder, Sleep Apnea/CPAP/BIPAP Additional Past Medical History / Comment(s): Pt recently fell (April 2016) and had L eye contusion/L lower leg laceration-surgically repaired/DVT L lower leg and acute blood loss anemia. Other HX: IDDM type II, DVT L leg, bilateral lower leg cellulitis with L lower leg cellulitis. rt heel pressure ulcer-SINCE HEALED, peripheral neuropathy bilateral hands and feet, falls, chronic UTI'S, bilateral tinnitis, hemorrhoids, migraines, obesity, high cholesterol, chronic back pain, eczema, sinus problems, sleep apnea no CPAP, stomach ulcers, lower GI bleed. 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 MDRO Source:: sputum-MRSA; Urine-VRE Past Surgical History: Adenoidectomy, Bariatric Surgery, Cholecystectomy, Joint Replacement, Tonsillectomy, Tubal Ligation Additional Past Surgical History / Comment(s): Gastric bypass, [place]-en-Y in 2003 , Lizzy filter placement in 2000, teeth extraction, colonoscopy, EGD, hemorrhoidectomy, panniculectomy, D&C, hystoscopy x 2, LT KNEE replaced 2006- MRSA infection-hardware removed and cemented then replaced again, L hip repair with screw and total R hip REPLACEMENT, bilateral heel spurs removed, bilateral carpal tunnel releases, D&Cs, infusaport insertion since removed. Past Anesthesia/Blood Transfusion Reactions: No Reported Reaction Additional Past Anesthesia/Blood Transfusion Reaction / Comment(s): pt has received blood in the past without reaction. Past Psychological History: Anxiety, Depression Smoking Status: Former smoker Past Alcohol Use History: Rare Additional Past Alcohol Use History / Comment(s): She has history of smoking 2 packs per day for 27 years and quit in 1993. She drinks alcohol rarely. 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 pt stated SHE HAS HOME CARE WITH VISITNG NURSES. uses a w/c Past Drug Use History: Marijuana, Marijuana Additional Drug Use History / Comment(s): pt admits to marujuana use when she is in a lot of pain.ONLYSMOKES A COUPLE TIMES AYEAR. - Past Family History Father Family Medical History: Myocardial Infarction ([place]) Additional Family Medical History / Comment(s): AT AGE 46-[place] Mother Family Medical History: Diabetes Mellitus Additional Family Medical History / Comment(s): AT AGE 66 FROM COMPLICATIONS FROM DM Sister(s) Family Medical History: Diabetes Mellitus Brother(s) Family Medical History: Diabetes Mellitus Daughter(s) Family Medical History: Cancer Son(s) Family Medical History: No Reported History Medications and Allergies Home Medications Medication Instructions Recorded Confirmed Type Atorvastatin [Lipitor] 40 mg PO HS 08/30/15 04/20/17 History Allopurinol [Zyloprim] 100 mg PO BID 05/21/16 04/20/17 History Cholecalciferol [Vitamin D3] 1,000 unit PO HS 06/29/16 04/20/17 History Ferrous Sulfate [Iron (65 MG 650 mg PO HS 06/29/16 04/20/17 History Elemental)] Magnesium Hydroxide [Milk of 2,400 mg PO DAILY PRN 06/29/16 04/20/17 History Magnesia] Polyethylene Glycol 3350 [Miralax] 17 gm PO DAILY 06/29/16 04/20/17 History Acetaminophen [Tylenol] 650 mg PO Q4H PRN 10/27/16 04/20/17 History Bisacodyl [Dulcolax] 10 mg PO DAILY PRN 01/26/17 04/20/17 History Cranberry Fruit Concentrate 900 mg PO HS 02/20/17 04/20/17 History [Cranberry] L.acidoph,Paracasei, B.lactis 2 cap PO HS 02/20/17 04/20/17 History [Probiotic] Multivitamins, Thera [Multivitamin 1 tab PO DAILY 02/20/17 04/20/17 History (formulary)] Na Phos,M-B/Na Phos,Di-Ba [Fleet 133 ml RECTAL DAILY PRN 02/20/17 04/20/17 History Adult] Sennosides-Docusate Sodium 1 tab PO HS 02/20/17 04/20/17 History [Senokot-S] Furosemide [Lasix] 40 mg PO DAILY #1 tablet 03/03/17 04/20/17 Rx Melatonin 3 mg PO HS 03/23/17 04/20/17 History Menthol [Biofreeze] 1 applic TOPICAL TID 03/23/17 04/20/17 History Menthol/Zinc Oxide [Calmoseptine 1 applic TOPICAL TID 03/23/17 04/20/17 History Ointment] Potassium Chloride ER [K-Dur 20] 20 meq PO HS 03/23/17 04/20/17 History ALPRAZolam [Xanax] 0.25 mg PO BID PRN 04/20/17 04/20/17 History Aspirin 81 mg PO HS 04/20/17 04/20/17 History Escitalopram [Lexapro] 10 mg PO DAILY 04/20/17 04/20/17 History INSULIN LISPRO (HumaLOG) [humaLOG] See Protocol SQ ACHS 04/20/17 04/20/17 History Ipratropium-Albuterol Nebulize 3 ml INHALATION RT-QID PRN 04/20/17 04/20/17 History [Duoneb 0.5 mg-3 mg/3 ml Soln] Omeprazole 20 mg PO DAILY 04/20/17 04/20/17 History Allergies Allergy/AdvReac Type Severity Reaction Status Date / Time adhesive tape Allergy Severe Rash/Hives Verified 04/20/17 17:16 cephalexin monohydrate Allergy Severe Rash/Hives Verified 04/20/17 17:16 [From Keflex] influenza virus vaccine, Allergy Severe Anaphylaxis Verified 04/13/17 10:53 specific [influenza virus vacc,specific] latex Allergy Severe Rash/Hives Verified 04/20/17 17:16 peanut Allergy Severe Anaphylaxis Verified 04/20/17 17:16 Penicillins Allergy Severe Swelling Verified 04/20/17 17:16 tetanus toxoid, adsorbed Allergy Intermediate Rash/Hives Verified 04/20/17 17:16 Influenza Virus Vaccines Allergy Anaphylaxis Verified 04/20/17 17:16 Physical Exam Vitals: Vital Signs Temp Pulse Pulse Resp BP BP Pulse Ox 04/21/17 01:38 98.8 F 92 17 91/49 100 04/20/17 23:14 98.7 F 100 18 100 04/20/17 22:54 99.9 F H 116 H 18 106/64 100 04/20/17 22:04 101.1 F H 114 H 18 112/53 96 04/20/17 21:14 103.0 F H 122 H 18 130/60 95 04/20/17 19:47 131 H 18 140/61 95 04/20/17 19:26 104.1 F H 121 H 16 129/59 94 L 04/20/17 16:25 101 F H 97 16 122/60 98 Intake and Output 04/20/17 04/21/17 04/21/17 22:59 06:59 14:59 Intake Total 3000 Balance 3000 Intake: Amount of Fluid Infused ( 3000 ml) Other: Weight 99.79 kg 82.5 kg - Constitutional General appearance: obese - EENT Eyes: EOMI - Respiratory Respiratory: bilateral: diminished - Cardiovascular Rhythm: regular - Gastrointestinal General gastrointestinal: soft, no tenderness - Integumentary Integumentary: no cellulitis Results CBC & Chem 7: 04/20/17 17:46 04/20/17 17:46 Labs: Abnormal Lab Results - Last 24 Hours (Table) 04/20/17 04/20/17 04/20/17 Range/Units 17:46 17:46 17:46 RBC 3.31 L (3.80-5.40) m/uL Hgb 10.5 L (11.4-16.0) gm/dL MCV 105.4 H D (80.0-100.0) fL MCHC 30.1 L (31.0-37.0) g/dL RDW 17.6 H (11.5-15.5) % APTT 18.5 L (22.0-30.0) sec Carbon Dioxide 14 L (22-30) mmol/L BUN 25 H (7-17) mg/dL Creatinine 1.10 H (0.52-1.04) mg/dL Glucose 213 H (74-99) mg/dL POC Glucose (mg/dL) (75-99) mg/dL Plasma Lactic Acid Maximus (0.7-2.0) mmol/L AST 40 H (14-36) U/L Alkaline Phosphatase 176 H (38-126) U/L Albumin 3.4 L (3.5-5.0) g/dL Urine Appearance (Clear) Urine Protein (Negative) Urine Blood (Negative) Ur Leukocyte Esterase (Negative) Urine WBC (0-5) /hpf Amorphous Sediment (None) /hpf Urine Mucus (None) /hpf 04/20/17 04/20/17 04/21/17 Range/Units 17:46 19:22 05:56 RBC (3.80-5.40) m/uL Hgb (11.4-16.0) gm/dL MCV (80.0-100.0) fL MCHC (31.0-37.0) g/dL RDW (11.5-15.5) % APTT (22.0-30.0) sec Carbon Dioxide (22-30) mmol/L BUN (7-17) mg/dL Creatinine (0.52-1.04) mg/dL Glucose (74-99) mg/dL POC Glucose (mg/dL) 211 H (75-99) mg/dL Plasma Lactic Acid Maximus 6.5 H* (0.7-2.0) mmol/L AST (14-36) U/L Alkaline Phosphatase (38-126) U/L Albumin (3.5-5.0) g/dL Urine Appearance Cloudy H (Clear) Urine Protein Trace H (Negative) Urine Blood Small H (Negative) Ur Leukocyte Esterase Moderate H (Negative) Urine WBC 10 H (0-5) /hpf Amorphous Sediment Rare H (None) /hpf Urine Mucus Rare H (None) /hpf Microbiology - Last 24 Hours (Table) 04/20/17 21:38 Blood Culture - Final Blood 04/20/17 19:22 Urine Culture - Preliminary Urine,Catheterized Thrombosis Risk Factor Assmnt - Choose All That Apply Any of the Below Risk Factors Present?: Yes Each Factor Represents 1 point: Abnormal pulmonary function (COPD), Acute [place], Obesity (BMI >25) Each Risk Factor Represents 2 Points: Age 61-74 years, Patient confined to bed Each Risk Factor Represents 3 Points: History of DVT/PE Other congenital or acquired thrombophilia - If yes, enter type in comment: No Thrombosis Risk Factor Assessment Total Risk Factor Score: 10 Thrombosis Risk Factor Assessment Level: High Risk Assessment and Plan (1) Fever Status: Acute (2) Pneumonia Status: Acute (3) Sepsis Status: Acute (4) At risk for readmission to hospital Status: Acute (5) Atrial fibrillation with rapid ventricular response Status: Acute (6) CKD (chronic kidney disease), stage III Status: Acute (7) Chronic deep vein thrombosis (DVT) of left popliteal vein Status: Acute (8) Pneumonia Status: Acute Plan: Given blood culture positivity, pulse central line and culture tip. Check CBC and CMP in a.m. Reconcile medications. Consult infectious disease. Discharge planning. See orders otherwise.
[2017-04-21] MEDS ORDERED: NA PHOS,M-B/NA PHOS,DI-BA 133 ML ENEMA RECTAL PRN (07:48)
[2017-04-21] MEDS: VANCOMYCIN 1,750 MG in SODIUM CHLORIDE 0.9% 250 ML IVPB SCH (09:48)
[2017-04-21] MEDS: ESCITALOPRAM 10 MG TAB PO SCH (10:20)
[2017-04-21] MEDS: FUROSEMIDE 40 MG TAB PO SCH (10:20)
[2017-04-21] MEDS: PANTOPRAZOLE 40 MG TABLET PO SCH (10:20)
[2017-04-21] MEDS: MENTHOL-ZINC OXIDE OINT 113 GM TUBE TOPICAL SCH ×3 (10:20→21:02)
[2017-04-21] MEDS: MULTIVITAMINS, THERA 1 EACH TAB PO SCH (10:20)
[2017-04-21] MEDS: METHYL SALICYLATE/MENTHOL CREAM 5 OZ TOPICAL SCH ×3 (10:21→21:02)
[2017-04-21] MEDS: SODIUM CHLORIDE 0.9% 1,000 ML IV SCH ×2 (10:21→21:05)
[2017-04-21] MEDS: POLYETHYLENE GLYCOL 3350 17 GM POWD.PACK PO SCH (10:21)
[2017-04-21 11:58] LABS: Glucose,Whole Blood 142 mg/dL (75-99)
[2017-04-21] MEDS: oxyCODONE-APAP 7.5-325MG 1 EACH TAB PO PRN ×2 (13:10→21:40)
[2017-04-21 16:59] LABS: Glucose,Whole Blood 183 mg/dL (75-99)
[2017-04-21] MEDS ORDERED: CRANBERRY FRUIT 900 MG PO SCH (21:00)
[2017-04-21] MEDS: ACETAMINOPHEN TAB 325 MG TAB PO PRN (21:02)
[2017-04-21 21:07] LABS: Glucose,Whole Blood 182 mg/dL (75-99)
--- NOTE | 2017-04-21 21:20 | P.CONS ---
History of Present Illness - Reason for Consult Consult date: 04/21/17 - Chief Complaint fever - History of Present Illness 66-year-old female known to the infectious disease service presents from her extended care facility where she is developed fever over the last 72 hours it was not improving with local treatments. Because of her ongoing fever she was referred to hospital for further intervention. She's been noticed to have fever at the facility of greater than 101. Despite antibiotic therapy and antipruritic she was remaining febrile. Suspect sent to the hospital. Upon arrival she was not hypotensive but it evidence of significant illness. With evidence of positive blood cultures the infectious diseases consultation was requested. The patient is in no history of the fall out of her wheelchair in April 2016. Causing the extensive contusions especially the left lower extremity with the extensive trauma in full-thickness skin loss is very slow to heal. She relates that she's feeling distally better this afternoon. She's not having chills or rigors with her fever. She was hospitalized 02/21/2017 at which point in time she had respiratory failure. She had pneumonia and acute renal failure. She had IV access placed with a Nance line catheter to the right anterior chest wall. She does have poor IV access. Review of Systems Patient feels poorly. She somewhat weak. Is not a good historian is that she has been in the past. HEENT:Denies headache or acute visual change. Denies sinus or mouth discomforts. Denies neck stiffness or pain. Denies significant oral cavity pain. Denies difficulty on swallowing. Lungs: She was having some shortness of breath and cough cough, denies significant sputum production, or hemoptysis. Cardiovascular: Denies significant chest pain, chest wall pain, orthopnea, dyspnea on exertion, syncope Gastrointestinal:Denies nausea, vomiting, diarrhea, constipation, hematemesis, melena, hematochezia. No no significant change of bowel habit noticed. Musculoskeletal: denies significant myalgias or arthralgias. No new joint swelling. Denies new back pain. Skin: As per the HPI significant ulceration to the left leg anterior tibial surface Neuro: Denies headache or visual change. Denies any new onset weakness or difficulty with ambulation. Denies falls or seizures. Psychiatric: Relates to some anxiety and depression. Endocrine: Ongoing fatigue weight is apparently stable to decreased. Appetite has been poor. Past Medical History Past Medical History: Diabetes Mellitus, Deep Vein Thrombosis (DVT), Fibromyalgia, GI Bleed, Hypertension, Skin Disorder, Sleep Apnea/CPAP/BIPAP Additional Past Medical History / Comment(s): Pt recently fell (April 2016) and had L eye contusion/L lower leg laceration-surgically repaired/DVT L lower leg and acute blood loss anemia. Other HX: IDDM type II, DVT L leg, bilateral lower leg cellulitis with L lower leg cellulitis. rt heel pressure ulcer-SINCE HEALED, peripheral neuropathy bilateral hands and feet, falls, chronic UTI'S, bilateral tinnitis, hemorrhoids, migraines, obesity, high cholesterol, chronic back pain, eczema, sinus problems, sleep apnea no CPAP, stomach ulcers, lower GI bleed. 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 Past Anesthesia/Blood Transfusion Reactions: No Reported Reaction Additional Past Anesthesia/Blood Transfusion Reaction / Comm: pt has received blood in the past without reaction. Past Psychological History: Anxiety, Depression Additional Psychological History / Comment(s): Patient is now in extended care. No longer live independently. Does not have any significant family. Was a tobacco smoker stopping several years ago.She has history of smoking 1.5 pack per day for 27 years and quit in 1993. She drinks alcohol rarely. 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 No animal exposures. Smoking Status: Former smoker Past Alcohol Use History: Rare Additional Past Alcohol Use History / Comment(s): She has history of smoking 2 packs per day for 27 years and quit in 1993. She drinks alcohol rarely. 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 pt stated SHE HAS HOME CARE WITH [facility] NURSES. uses a w/c Past Drug Use History: Marijuana, Marijuana Additional Drug Use History / Comment(s): pt admits to marujuana use when she is in a lot of pain.ONLYSMOKES A COUPLE TIMES AYEAR. - Past Family History Father Family Medical History: Myocardial Infarction (CT) Additional Family Medical History / Comment(s): AT AGE 46-CT Mother Family Medical History: Diabetes Mellitus Additional Family Medical History / Comment(s): AT AGE 66 FROM COMPLICATIONS FROM DM Sister(s) Family Medical History: Diabetes Mellitus Brother(s) Family Medical History: Diabetes Mellitus Daughter(s) Family Medical History: Cancer Son(s) Family Medical History: No Reported History Medications and Allergies Home Medications and Allergies Comment(s): Current Medications Acetaminophen (Tylenol Tab) 650 mg PO Q6HR PRN PRN Reason: Mild Pain or Fever > 100.5 Last Admin: 04/21/17 21:02 Dose: 650 mg Albuterol/Ipratropium (Duoneb 0.5 Mg-3 Mg/3 Ml Soln) 3 ml INHALATION RT-QID PRN PRN Reason: Shortness Of Breath Allopurinol (Zyloprim) 100 mg PO BID [facility] Last Admin: 04/21/17 21:02 Dose: 100 mg Alprazolam (Xanax) 0.25 mg PO BID PRN PRN Reason: Anxiety Aspirin (Aspirin) 81 mg PO [facility] Atorvastatin Calcium (Lipitor) 40 mg PO [facility] Last Admin: 04/21/17 21:02 Dose: 40 mg Calamine/Phenol (Risamine Oint) 1 applic TOPICAL TID [facility] Last Admin: 04/21/17 21:02 Dose: 1 applic Cholecalciferol (Vitamin D3) 1,000 unit PO [facility] Escitalopram Oxalate (Lexapro) 10 mg PO DAILY [facility] Last Admin: 04/21/17 10:20 Dose: 10 mg Ferrous Sulfate (Feosol) 650 mg PO [facility] Furosemide (Lasix) 40 mg PO DAILY [facility] Last Admin: 04/21/17 10:20 Dose: 40 mg Vancomycin HCl 1,750 mg/ (Sodium Chloride) 250 mls @ 125 mls/hr IVPB Q24H [facility] Last Admin: 04/21/17 09:48 Dose: 125 mls/hr Sodium Chloride (Saline 0.9%) 1,000 mls @ 75 mls/hr IV .[id number] [facility] Last Admin: 04/21/17 21:05 Dose: 75 mls/hr Insulin Human Lispro (Humalog) 0 unit SQ ACHS [facility] PRN Reason: Protocol Last Admin: 04/21/17 17:21 Dose: 2 unit Lactobacillus Acidoph/Bulgaricus (Lactinex) 2 each PO HS [facility] Magnesium Hydroxide (Milk Of Magnesia) 2,400 mg PO DAILY PRN PRN Reason: Constipation Methyl Salicylate (Thera-Gesic Cream) 1 applic TOPICAL TID [facility] Last Admin: 04/21/17 21:02 Dose: 1 applic Multivitamins (Theragran) 1 each PO DAILY@1200 [facility] Last Admin: 04/21/17 10:20 Dose: 1 each Naloxone HCl (Narcan) 0.2 mg IV Q2M PRN PRN Reason: Opioid Reversal Oxycodone/Acetaminophen (Percocet 7.5-325) 1 each PO Q6HR PRN PRN Reason: Pain Last Admin: 04/21/17 13:10 Dose: 1 each Pantoprazole Sodium (Protonix) 40 mg PO DAILY [facility] Last Admin: 04/21/17 10:20 Dose: 40 mg Polyethylene Glycol (Miralax) 17 gm PO DAILY [facility] Last Admin: 04/21/17 10:21 Dose: Not Given Potassium Chloride (K-Dur 20) 20 meq PO [facility] Last Admin: 04/21/17 21:02 Dose: 20 meq Senna/Docusate Sodium (Senokot-S) 1 each PO HS [facility] Sodium Biphosphate/Sodium Phosphate (Fleet Adult) 133 ml RECTAL DAILY PRN PRN Reason: Constipation Home Medications Medication Instructions Recorded Confirmed Type Atorvastatin [Lipitor] 40 mg PO HS 08/30/15 04/20/17 History Allopurinol [Zyloprim] 100 mg PO BID 05/21/16 04/20/17 History Cholecalciferol [Vitamin D3] 1,000 unit PO 06/29/16 04/20/17 History Ferrous Sulfate [Iron (65 MG 650 mg PO 06/29/16 04/20/17 History Elemental)] Magnesium Hydroxide [Milk of 2,400 mg PO DAILY PRN 06/29/16 04/20/17 History Magnesia] Polyethylene Glycol 3350 [Miralax] 17 gm PO DAILY 06/29/16 04/20/17 History Acetaminophen [Tylenol] 650 mg PO Q4H PRN 10/27/16 04/20/17 History Bisacodyl [Dulcolax] 10 mg PO DAILY PRN 01/26/17 04/20/17 History Cranberry Fruit Concentrate 900 mg PO HS 02/20/17 04/20/17 History [Cranberry] L.acidoph,Paracasei, B.lactis 2 cap PO HS 02/20/17 04/20/17 History [Probiotic] Multivitamins, Thera [Multivitamin 1 tab PO DAILY 02/20/17 04/20/17 History (formulary)] Na Phos,M-B/Na Phos,Di-Ba [Fleet 133 ml RECTAL DAILY PRN 02/20/17 04/20/17 History Adult] Sennosides-Docusate Sodium 1 tab PO HS 02/20/17 04/20/17 History [Senokot-S] Furosemide [Lasix] 40 mg PO DAILY #1 tablet 03/03/17 04/20/17 Rx Melatonin 3 mg PO HS 03/23/17 04/20/17 History Menthol [Biofreeze] 1 applic TOPICAL TID 03/23/17 04/20/17 History Menthol/Zinc Oxide [Calmoseptine 1 applic TOPICAL TID 03/23/17 04/20/17 History Ointment] Potassium Chloride ER [K-Dur 20] 20 meq PO HS 03/23/17 04/20/17 History ALPRAZolam [Xanax] 0.25 mg PO BID PRN 04/20/17 04/20/17 History Aspirin 81 mg PO HS 04/20/17 04/20/17 History Escitalopram [Lexapro] 10 mg PO DAILY 04/20/17 04/20/17 History INSULIN LISPRO (HumaLOG) [humaLOG] See Protocol SQ ACHS 04/20/17 04/20/17 History Ipratropium-Albuterol Nebulize 3 ml INHALATION RT-QID PRN 04/20/17 04/20/17 History [Duoneb 0.5 mg-3 mg/3 ml Soln] Omeprazole 20 mg PO DAILY 04/20/17 04/20/17 History Allergies Allergy/AdvReac Type Severity Reaction Status Date / Time adhesive tape Allergy Severe Rash/Hives Verified 04/20/17 17:16 cephalexin monohydrate Allergy Severe Rash/Hives Verified 04/20/17 17:16 [From Keflex] influenza virus vaccine, Allergy Severe Anaphylaxis Verified 04/13/17 10:53 specific [influenza virus vacc,specific] latex Allergy Severe Rash/Hives Verified 04/20/17 17:16 peanut Allergy Severe Anaphylaxis Verified 04/20/17 17:16 Penicillins Allergy Severe Swelling Verified 04/20/17 17:16 tetanus toxoid, adsorbed Allergy Intermediate Rash/Hives Verified 04/20/17 17:16 Influenza Virus Vaccines Allergy Anaphylaxis Verified 04/20/17 17:16 Physical Exam Vitals: Vital Signs Temp Pulse Pulse Resp BP BP Pulse Ox 04/21/17 16:00 98.3 F 65 16 118/56 98 04/21/17 12:00 100.7 F H 62 18 117/57 99 04/21/17 08:00 98.6 F 83 16 98/56 99 04/21/17 07:55 100 04/21/17 01:38 98.8 F 92 17 91/49 100 04/20/17 23:14 98.7 F 100 18 100 04/20/17 22:54 99.9 F H 116 H 18 106/64 100 04/20/17 22:04 101.1 F H 114 H 18 112/53 96 04/20/17 21:14 103.0 F H 122 H 18 130/60 95 Intake and Output 04/21/17 04/21/17 04/21/17 06:59 14:59 22:59 Intake Total 3000 0 200 Balance 3000 0 200 Intake: Amount of Fluid Infused ( 3000 ml) Oral 0 200 Other: Voiding Method Diaper Diaper # Bowel Movements 1 Weight 82.5 kg 82.5 kg Patient Weight 04/22/17 06:59 Weight 82.5 kg 66-year-old woman who suffers from obesity and general debility appears to be acutely ill. She is weak but is able to communicate. HEENT: Anicteric conjunctiva are pink but dry nasal mucosa grossly intact without significant lesions, there is no thrush. Neck: The neck is supple without significant lymphadenopathy or thyromegaly. Lungs: Good bilateral air entry without significant crackles or wheezing. There is no significant bronchial sounds. There is no egophony or dullness. Heart: Regular rate and rhythm with an audible S1-S2, no S3 no S4. There is no significant murmur click or rub, PMI was nondisplaced. Abdomen: Obese, Positive bowel sounds soft and nontender without palpable masses or organomegaly. There was no guarding or rebound. Extremities: The upper extremities have excellent pulses they are symmetric, no significant petechiae or telangiectasia. No splinter hemorrhages were noted. Lower extremities have the chronic edema. The left pretibial surface continues to have evidence of some of the ulceration has been slow to heal in this region from her trauma. There is only a scant amount of drainage at this time. He remains tender. Neuro: Awake alert oriented to person place and time. He has profound generalized weakness and apparently is not able to ambulate. Results CBC & Chem 7: 04/20/17 17:46 04/20/17 17:46 Labs: Abnormal Lab Results - Last 24 Hours (Table) 04/21/17 04/21/17 04/21/17 Range/Units 05:56 11:45 16:40 POC Glucose (mg/dL) 211 H 142 H 183 H (75-99) mg/dL Microbiology - Last 24 Hours (Table) 04/20/17 21:38 Blood Culture Gram Stain - Preliminary Blood 04/20/17 21:38 Blood Culture - Final Blood 04/20/17 19:22 Urine Culture - Preliminary Urine,Catheterized Laboratory Results WBC 10.3 k/uL (3.8-10.6) 04/20/17 17:46 RBC 3.31 m/uL (3.80-5.40) L 04/20/17 17:46 Hgb 10.5 gm/dL (11.4-16.0) L 04/20/17 17:46 Hct 34.9 % (34.0-46.0) 04/20/17 17:46 MCV 105.4 fL (80.0-100.0) H D 04/20/17 17:46 MCH 31.7 pg (25.0-35.0) 04/20/17 17:46 MCHC 30.1 g/dL (31.0-37.0) L 04/20/17 17:46 RDW 17.6 % (11.5-15.5) H 04/20/17 17:46 Plt Count 423 k/uL (150-450) 04/20/17 17:46 Neutrophils % 68 % 04/20/17 17:46 Lymphocytes % 27 % 04/20/17 17:46 Monocytes % 3 % 04/20/17 17:46 Eosinophils % 0 % 04/20/17 17:46 Basophils % 1 % 04/20/17 17:46 Neutrophils # 6.9 k/uL (1.3-7.7) 04/20/17 17:46 Lymphocytes # 2.8 k/uL (1.0-4.8) 04/20/17 17:46 Monocytes # 0.3 k/uL (0-1.0) 04/20/17 17:46 Eosinophils # 0.0 k/uL (0-0.7) 04/20/17 17:46 Basophils # 0.1 k/uL (0-0.2) 04/20/17 17:46 Manual Slide Review Performed 04/20/17 17:46 Polychromasia Present 04/20/17 17:46 Hypochromasia Marked 04/20/17 17:46 Anisocytosis Slight 04/20/17 17:46 Macrocytosis Marked 04/20/17 17:46 PT 11.1 sec (9.0-12.0) 04/20/17 17:46 INR 1.1 (<1.2) 04/20/17 17:46 APTT 18.5 sec (22.0-30.0) L 04/20/17 17:46 Sodium 137 mmol/L (137-145) 04/20/17 17:46 Potassium 4.8 mmol/L (3.5-5.1) 04/20/17 17:46 Chloride 104 mmol/L (98-107) 04/20/17 17:46 Carbon Dioxide 14 mmol/L (22-30) L 04/20/17 17:46 Anion Gap 19 mmol/L 04/20/17 17:46 BUN 25 mg/dL (7-17) H 04/20/17 17:46 Creatinine 1.10 mg/dL (0.52-1.04) H 04/20/17 17:46 Est GFR (MDRD) Af Amer >60 (>60 ml/min/1.73 sqM) 04/20/17 17:46 Est GFR (MDRD) Non-Af 50 (>60 ml/min/1.73 sqM) 04/20/17 17:46 Glucose 213 mg/dL (74-99) H 04/20/17 17:46 POC Glucose (mg/dL) 182 mg/dL (75-99) H 04/21/17 21:03 POC Glu Beer Cooler ID Kayden Chand 04/21/17 21:[address] Glu mg/dL 114 mg/dL 04/20/17 17:46 Hemoglobin A1c 5.6 % (4.2-6.1) 04/20/17 17:46 Lactic Ac Sepsis Rflx Y 04/20/17 18:29 Plasma Lactic Acid Maximus 1.3 mmol/L (0.7-2.0) 04/20/17 22:10 Calcium 9.4 mg/dL (8.4-10.2) 04/20/17 17:46 Total Bilirubin 0.6 mg/dL (0.2-1.3) 04/20/17 17:46 AST 40 U/L (14-36) H 04/20/17 17:46 ALT 45 U/L (9-52) 04/20/17 17:46 Alkaline Phosphatase 176 U/L (38-126) H 04/20/17 17:46 Total Protein 7.9 g/dL (6.3-8.2) 04/20/17 17:46 Albumin 3.4 g/dL (3.5-5.0) L 04/20/17 17:46 Urine Color Yellow 04/20/17 19:22 Urine Appearance Cloudy (Clear) H 04/20/17 19:22 Urine pH 5.0 (5.0-8.0) 04/20/17 19:22 Ur Specific [place] 1.011 (1.001-1.035) 04/20/17 19:22 Urine Protein Trace (Negative) H 04/20/17 19:22 Urine Glucose (UA) Negative (Negative) 04/20/17 19:22 Urine Ketones Negative (Negative) 04/20/17 19:22 Urine Blood Small (Negative) H 04/20/17 19:22 Urine Nitrite Negative (Negative) 04/20/17 19:22 Urine Bilirubin Negative (Negative) 04/20/17 19:22 Urine Urobilinogen <2.0 mg/dL (<2.0) 04/20/17 19:22 Ur Leukocyte Esterase Moderate (Negative) H 04/20/17 19:22 Urine RBC 3 /hpf (0-5) 04/20/17 19:22 Urine WBC 10 /hpf (0-5) H 04/20/17 19:22 Ur Squamous Epith Cells 1 /hpf (0-4) 04/20/17 19:22 Amorphous Sediment Rare /hpf (None) H 04/20/17 19:22 Urine Mucus Rare /hpf (None) H 04/20/17 19:22 Microbiology 04/20/17 21:38 Blood Blood Culture Gram Stain - Preliminary 04/20/17 21:38 Blood Blood Culture - Final 04/20/17 19:22 Urine,Catheterized Urine Culture - Preliminary Assessment and Plan (1) Fever Narrative/Plan: 66-year-old woman presents to [facility] with ongoing fever that they are aware having great difficulties trying to reduce. Upon arrival to Hospital there is evidence of sepsis. Is evidence of positive blood culture with gram-positive cocci. The patient was hospitalized this summer at which time she had developed respiratory failure and required intubation sedation and mechanical ventilation. IV access was placed. Apparently this has remained in place while she's been at the [facility] care facility. This appears to be the likely portal of infection at this time. We'll work with the primary team to see if this cannot be removed and have some type of temporary access placed. She will need negative blood cultures before a more permanent type of IV access can be placed such as a PICC line. For antimicrobial therapy vancomycin is being utilized. There is no need for gram-negative coverage at this time given the current positive blood cultures. Continuing ongoing local wound care to the left leg in the treatment will be with the opticell silver which can be changed every other day. Repeat blood cultures been requested for the morning. She was monitored. The chronic anemia has improved. Acute renal failure is being noted and monitored. Status: Acute (2) Bacteremia associated with IV line Status: Acute (3) Dehydration Status: Acute
[2017-04-21] MEDS: ASPIRIN 81 MG PO SCH (21:39)
[2017-04-21] MEDS: CHOLECALCIFEROL 1,000 UNIT TAB PO SCH (21:39)
[2017-04-21] MEDS: FERROUS SULFATE 325 MG TAB PO SCH (21:39)
[2017-04-21] MEDS: SENNOSIDES-DOCUSATE SODIUM 1 EACH TAB PO SCH (21:39)
[2017-04-21] MEDS: LACTOBACILLUS ACIDOPH & BULGAR 1 EACH PACKET PO SCH (21:39)
[2017-04-22 06:05] LABS: Glucose,Whole Blood 179 mg/dL (75-99)
[2017-04-22] MEDS: INSULIN LISPRO (humaLOG) 300 UNIT/3 ML VIAL SQ SCH ×4 (06:24→20:30)
--- NOTE | 2017-04-22 08:10 | P.PN ---
Objective - Vital Signs Vital signs: Vital Signs Temp 100.0 F H 04/22/17 04:00 Pulse 105 H 04/22/17 04:00 Resp 18 04/22/17 04:00 BP 115/55 04/22/17 04:00 Pulse Ox 94 L 04/22/17 04:00 Intake & Output 04/21/17 04/22/17 04/22/17 18:59 06:59 18:59 Intake Total 200 900 Balance 200 900 Weight 82.5 kg 82.5 kg Intake: IV 900 Sodium Chloride 0.9% 1, 900 000 ml @ 75 mls/hr IV . [id number] Rx#:[id number] Oral 200 Other: Voiding Method Diaper Diaper # Voids 1 # Bowel Movements 1 - Constitutional General appearance: Present: obese - EENT Eyes: Absent: abnormal pupil - Respiratory Respiratory: bilateral: CTA - Cardiovascular Rhythm: irregularly irregular Heart sounds: normal: S1, S2 - Gastrointestinal General gastrointestinal: Present: soft. Absent: tenderness - Psychiatric Psychiatric: Present: appropriate affect, intact judgment & insight - Labs CBC & Chem 7: 04/20/17 17:46 04/20/17 17:46 Labs: Abnormal Lab Results - Last 24 Hours (Table) 04/21/17 04/21/17 04/21/17 Range/Units 11:45 16:40 21:03 POC Glucose (mg/dL) 142 H 183 H 182 H (75-99) mg/dL 04/22/17 Range/Units 05:53 POC Glucose (mg/dL) 179 H (75-99) mg/dL Microbiology - Last 24 Hours (Table) 04/20/17 21:38 Blood Culture Gram Stain - Preliminary Blood Blood Culture - Preliminary Presumptive MRSA 04/20/17 19:22 Urine Culture - Final Urine,Catheterized 04/20/17 21:38 Blood Culture - Final Blood Assessment and Plan (1) Fever Status: Acute (2) Pneumonia Status: Acute (3) Sepsis Status: Acute (4) At risk for readmission to hospital Status: Acute (5) Atrial fibrillation with rapid ventricular response Status: Acute (6) CKD (chronic kidney disease), stage III Status: Acute (7) Chronic deep vein thrombosis (DVT) of left popliteal vein Status: Acute (8) Pneumonia Status: Acute Plan: Continue current regimen of treatment secondary to bacteremia related to catheter use. I suspect she'll need PICC line. Check CBC and CMP in a.m. Dr. Lara's group will be covering for the weekend.
[2017-04-22] MEDS: ACETAMINOPHEN TAB 325 MG TAB PO PRN ×2 (08:42→23:15)
[2017-04-22] MEDS: ALPRAZolam 0.25 MG TAB PO PRN ×2 (08:42→20:12)
[2017-04-22] MEDS: oxyCODONE-APAP 7.5-325MG 1 EACH TAB PO PRN ×3 (08:42→20:12)
[2017-04-22] MEDS: ALLOPURINOL 100 MG TAB PO SCH ×2 (08:43→20:13)
[2017-04-22] MEDS: FUROSEMIDE 40 MG TAB PO SCH (08:43)
[2017-04-22] MEDS: MENTHOL-ZINC OXIDE OINT 113 GM TUBE TOPICAL SCH ×3 (08:43→20:13)
[2017-04-22] MEDS: METHYL SALICYLATE/MENTHOL CREAM 5 OZ TOPICAL SCH ×3 (08:43→20:13)
[2017-04-22] MEDS: ESCITALOPRAM 10 MG TAB PO SCH (08:44)
[2017-04-22] MEDS: PANTOPRAZOLE 40 MG TABLET PO SCH (08:44)
[2017-04-22] MEDS: POLYETHYLENE GLYCOL 3350 17 GM POWD.PACK PO SCH (08:44)
[2017-04-22] MEDS: VANCOMYCIN 1,750 MG in SODIUM CHLORIDE 0.9% 250 ML IVPB SCH (08:44)
--- NOTE | 2017-04-22 09:09 | CDI ---
In responding to this query, please exercise your independent professional judgment. The [facility] Coding Staff and Clinical Documentation Specialists appreciate your assistance in clarifying documentation, maintaining compliance with coding guidelines, accurately documenting patients condition and capturing severity of illness. The fact that a question is asked does not imply that any particular answer is desired or expected. Communication forms are a method of clarifying documentation and are not made part of the Legal Health Record. Thank you in advance for your clarification. Last Revision, May 2015 Kristin Shearer [address] [place] [address] Documentation Clarification Form Date: 04/22/2017 8:25:00 AM From: Muriel Paris RN, CDS Admit Date: 04/20/2017 7:59:00 PM Patient Name: Rain Lang Visit Number: [id number] Dr. Willis Gurrola, 66 year old patient with recent history of Nance line catheter inserted right anterior chest. Admitted now from [facility] for fever, Sepsis and pneumonia. Blood cultures show "Presumptive MRSA" on preliminary results. Patient history/risk factors: Recent pneumonia, respiratory failure with insertion of Nance line catheter, from [facility], DM@, chronic DVT, Clinical Indicators: VS: T101.0 peaked at 104.4 HR97 Resp16 BP122/60 Sat98% Blood Culture Preliminary: presumptive MRSA, ID Consult: "sepsis, IV access placed, This appears to be the likely portal of infection at this time, Bacteremia associated with IV line", MED progress note 04/22: "Continue current regimen of treatment secondary to bacteremia related to catheter use." Treatment: ID consult, IV Vanco, CBC daily, In your professional opinion, can you please clarify? Sepsis related to Nance IV access device Sepsis unrelated to Nance IV access device Sepsis related to other source Other (please specify) Unable to determine Please document in your progress notes and discharge summary in order to capture severity of illness and risk of mortality. Include clinical findings that support your diagnosis. FYI: Press F11 to launch patient chart. Thank you. TRISTAN
[2017-04-22 12:09] LABS: Glucose,Whole Blood 201 mg/dL (75-99)
[2017-04-22] MEDS: SODIUM CHLORIDE 0.9% 1,000 ML IV SCH ×2 (12:51→20:11)
[2017-04-22] MEDS: MULTIVITAMINS, THERA 1 EACH TAB PO SCH (12:51)
[2017-04-22 16:39] LABS: Glucose,Whole Blood 155 mg/dL (75-99)
[2017-04-22] MEDS: ATORVASTATIN 40 MG TAB PO SCH (20:13)
[2017-04-22] MEDS: POTASSIUM CHLORIDE ER 20 MEQ TAB.ER PO SCH (20:13)
[2017-04-22] MEDS: ASPIRIN 81 MG PO SCH (20:13)
[2017-04-22] MEDS: FERROUS SULFATE 325 MG TAB PO SCH (20:13)
[2017-04-22] MEDS: SENNOSIDES-DOCUSATE SODIUM 1 EACH TAB PO SCH (20:13)
[2017-04-22] MEDS: LACTOBACILLUS ACIDOPH & BULGAR 1 EACH PACKET PO SCH (20:13)
[2017-04-22] MEDS: CHOLECALCIFEROL 1,000 UNIT TAB PO SCH (20:13)
[2017-04-22 20:54] LABS: Glucose,Whole Blood 165 mg/dL (75-99)
[2017-04-23] MEDS: oxyCODONE-APAP 7.5-325MG 1 EACH TAB PO PRN ×4 (03:29→23:16)
[2017-04-23] MEDS: INSULIN LISPRO (humaLOG) 300 UNIT/3 ML VIAL SQ SCH ×4 (06:18→20:39)
[2017-04-23 06:30] LABS: Anisocytosis Slight; CH 31.4; CHCM 30.6; HCT 24.5 % (34.0-46.0); HDW 3.29; Hypochromasia Marked; MCH 31.3 pg (25.0-35.0); MCHC 30.3 g/dL (31.0-37.0); MCV 103.5 fL (80.0-100.0); Macrocytosis Moderate; Mean Platelet Volume 7.8; RBC 2.37 m/uL (3.80-5.40); RDW 17.9 % (11.5-15.5); WBC 8.5 k/uL (3.8-10.6)
[2017-04-23 06:39] LABS: ALT 51 U/L (9-52); AST 59 U/L (14-36); Alkaline Phosphatase 183 U/L (38-126); Anion Gap 9 mmol/L; Blood Urea Nitrogen 27 mg/dL (7-17); Calcium 7.9 mg/dL (8.4-10.2); Carbon Dioxide 16 mmol/L (22-30); Chloride 109 mmol/L (98-107); Glucose 162 mg/dL (74-99); Non-African American GFR(MDRD) 55 (>60 ml/min/1.73 sqM); Potassium 3.9 mmol/L (3.5-5.1); Sodium 134 mmol/L (137-145); Total Bilirubin 0.2 mg/dL (0.2-1.3); Total Protein 5.5 g/dL (6.3-8.2)
[2017-04-23 06:41] LABS: Glucose,Whole Blood 172 mg/dL (75-99)
[2017-04-23 06:43] LABS: HGB 7.4 gm/dL (11.4-16.0)
[2017-04-23] MEDS: FUROSEMIDE 40 MG TAB PO SCH (09:42)
[2017-04-23] MEDS: VANCOMYCIN 1,750 MG in SODIUM CHLORIDE 0.9% 250 ML IVPB SCH (09:52)
[2017-04-23] MEDS: PANTOPRAZOLE 40 MG TABLET PO SCH (09:52)
[2017-04-23] MEDS: ESCITALOPRAM 10 MG TAB PO SCH (09:52)
[2017-04-23] MEDS: ALLOPURINOL 100 MG TAB PO SCH ×2 (09:52→20:31)
[2017-04-23] MEDS: POLYETHYLENE GLYCOL 3350 17 GM POWD.PACK PO SCH (09:52)
[2017-04-23] MEDS: ACETAMINOPHEN TAB 325 MG TAB PO PRN ×2 (09:52→20:59)
[2017-04-23] MEDS: MENTHOL-ZINC OXIDE OINT 113 GM TUBE TOPICAL SCH ×3 (09:53→20:34)
[2017-04-23] MEDS: METHYL SALICYLATE/MENTHOL CREAM 5 OZ TOPICAL SCH ×3 (09:53→20:34)
[2017-04-23 11:50] LABS: Glucose,Whole Blood 231 mg/dL (75-99)
[2017-04-23] MEDS: MULTIVITAMINS, THERA 1 EACH TAB PO SCH (12:16)
[2017-04-23] MEDS: ALPRAZolam 0.25 MG TAB PO PRN (15:06)
[2017-04-23] MEDS: SODIUM CHLORIDE 0.9% 1,000 ML IV SCH (15:07)
--- NOTE | 2017-04-23 16:18 | PN ---
PROGRESS NOTE DATE OF SERVICE: 04/23/2017 I am covering for Dr. Gurrola. This 66-year-old woman who was admitted with pneumonia, fever and sepsis is being closely monitored. The patient was also seen by Dr. Bhatia. The patient was started on broad-spectrum IV antibiotics. Patient is having on and off fever according to her. The patient also had MRSA growing from the blood also. The white count is 8.5, hemoglobin 7.4. Sodium is 134. PAST MEDICAL HISTORY: Reviewed. REVIEW OF SYSTEMS: CARDIOVASCULAR SYSTEM: No angina. RESPIRATORY SYSTEM: As mentioned earlier. GI: As mentioned earlier. : No dysuria. NERVOUS SYSTEM: No numbness or weakness. CURRENT MEDICATIONS: Current medications are reviewed and include: 1. Tylenol 650 q.6. 2. DuoNeb q.i.d. and p.r.n. 3. Zyloprim 100 mg p.o. b.i.d. 4. Xanax 0.5 b.i.d. 5. Aspirin 81 mg q.h.s. 6. Lipitor 40 mg q.h.s. 7. Vitamin D3, 1000 q.h.s. 8. Lexapro 10 mg p.o. daily. 9. Iron sulfate 650 q.h.s. 10.Lasix 40 mg p.o. daily. 11.Lactinex. 12.Multivitamins 1 p.o. daily. 13.Narcan 0.2 p.r.n. 14.Percocet 7.5 q.6. 15.Protonix. 16.K-Dur. 17.Senokot-S. 18.Vancomycin. PHYSICAL EXAM: Patient is alert, oriented x3. Pulse 83, blood pressure 98/50, respiration 18, temperature 98.2, pulse ox 97% on room air. HEENT: Conjunctivae normal. NECK: No jugular venous distention. CARDIOVASCULAR: S1 and S2 muffled. RESPIRATORY: Breath sounds diminished at the bases. A few scattered rhonchi. No crackles. Abdomen is soft, nontender. No mass palpable. LEGS: No edema, no swelling. NERVOUS SYSTEM: Higher function as mentioned earlier. Moves all 4 limbs. No focal deficits. LYMPHATICS: No lymphadenopathy of the neck, axillae or groin. LABS: WBC 8.5, hemoglobin 7.4, and albumin is 2.1. The chest x-ray on admission showed cardiomegaly, fibrotic changes. ASSESSMENT: 1. Fever with methicillin-resistant Staphylococcus aureus sepsis. 2. Pneumonia. 3. Pulmonary fibrosis and chest x-ray. 4. Atrial fibrillation with a fast ventricular rate. 5. Chronic kidney disease, stage 3. 6. Chronic deep venous thrombosis of left popliteal. 7. History pneumonia and sepsis. 8. Cellulitis of the left lower leg. 9. Anemia macrocytic. RECOMMENDATIONS AND DISCUSSION: In this 66-year-old woman who presented with multiple complex medical issues, will monitor the patient closely. Continue the current medications. Continue symptomatic treatment. Otherwise the patient is on vancomycin 1750 mg q. 24 hours, continue to monitor. Closely follow with Infectious Disease. DVT prophylaxis, H2 blockers or proton pump inhibitors. I would also recommend repeat labs also. Further recommendations to follow. [id number] / BARBARAN: [id number] /
[2017-04-23 16:35] LABS: Glucose,Whole Blood 169 mg/dL (75-99)
[2017-04-23] MEDS: CHOLECALCIFEROL 1,000 UNIT TAB PO SCH (20:32)
[2017-04-23] MEDS: ASPIRIN 81 MG PO SCH (20:32)
[2017-04-23] MEDS: FERROUS SULFATE 325 MG TAB PO SCH (20:32)
[2017-04-23] MEDS: ATORVASTATIN 40 MG TAB PO SCH (20:32)
[2017-04-23] MEDS: SENNOSIDES-DOCUSATE SODIUM 1 EACH TAB PO SCH (20:33)
[2017-04-23] MEDS: POTASSIUM CHLORIDE ER 20 MEQ TAB.ER PO SCH (20:33)
[2017-04-23] MEDS: LACTOBACILLUS ACIDOPH & BULGAR 1 EACH PACKET PO SCH (20:33)
[2017-04-23] MEDS: HEPARIN SODIUM,PORCINE 5,000 UNIT/ML 1 ML VIAL SQ SCH (20:33)
[2017-04-23 20:49] LABS: Glucose,Whole Blood 165 mg/dL (75-99)
[2017-04-24] MEDS: oxyCODONE-APAP 7.5-325MG 1 EACH TAB PO PRN ×3 (04:49→21:36)
[2017-04-24] MEDS: SODIUM CHLORIDE 0.9% 1,000 ML IV SCH ×2 (04:51→17:25)
[2017-04-24 06:31] LABS: Glucose,Whole Blood 143 mg/dL (75-99)
[2017-04-24] MEDS: INSULIN LISPRO (humaLOG) 300 UNIT/3 ML VIAL SQ SCH ×4 (06:31→21:35)
[2017-04-24] MEDS ORDERED: VANCOMYCIN TROUGH DUE 1 EACH MISC MISCELLANE ONE (08:00)
[2017-04-24 08:41] LABS: Anisocytosis Slight; Basophils % (A) 0 %; CH 31.5; CHCM 29.8; Eosinophils # (A) 0.2 k/uL (0-0.7); Eosinophils % (A) 2 %; HCT 25.1 % (34.0-46.0); HDW 3.26; HGB 7.5 gm/dL (11.4-16.0); Hypochromasia Marked; Luc # (Auto) 0.19; Luc % (Auto) 3; Lymphocytes # (A) 1.3 k/uL (1.0-4.8); Lymphocytes % (A) 20 %; MCV 106.6 fL (80.0-100.0); Macrocytosis Marked; Mean Platelet Volume 7.7; Monocytes # (A) 0.5 k/uL (0-1.0); Monocytes % (A) 7 %; Neutrophils # (A) 4.3 k/uL (1.3-7.7); Neutrophils % (A) 67 %; RBC 2.35 m/uL (3.80-5.40); RDW 18.1 % (11.5-15.5); WBC 6.5 k/uL (3.8-10.6); WBC (Perox) 6.91
[2017-04-24 09:08] LABS: Manual Review Performed
[2017-04-24] MEDS: VANCOMYCIN 1,750 MG in SODIUM CHLORIDE 0.9% 250 ML IVPB SCH (09:33)
[2017-04-24] MEDS: ESCITALOPRAM 10 MG TAB PO SCH (09:33)
[2017-04-24] MEDS: PANTOPRAZOLE 40 MG TABLET PO SCH (09:33)
[2017-04-24] MEDS: FUROSEMIDE 40 MG TAB PO SCH (09:33)
[2017-04-24] MEDS: ALLOPURINOL 100 MG TAB PO SCH ×2 (09:33→21:34)
[2017-04-24] MEDS: POLYETHYLENE GLYCOL 3350 17 GM POWD.PACK PO SCH (09:33)
[2017-04-24] MEDS: HEPARIN SODIUM,PORCINE 5,000 UNIT/ML 1 ML VIAL SQ SCH ×2 (09:34→21:35)
[2017-04-24 11:02] LABS: Glucose 131 mg/dL (74-99)
[2017-04-24 11:04] LABS: Anion Gap 8 mmol/L; Sodium 140 mmol/L (137-145)
[2017-04-24 11:05] LABS: Chloride 115 mmol/L (98-107); Potassium 4.2 mmol/L (3.5-5.1)
[2017-04-24 11:06] LABS: Carbon Dioxide 17 mmol/L (22-30)
[2017-04-24 11:07] LABS: Blood Urea Nitrogen 24 mg/dL (7-17)
[2017-04-24 11:08] LABS: Non-African American GFR(MDRD) 53 (>60 ml/min/1.73 sqM)
[2017-04-24 11:09] LABS: Calcium 8.2 mg/dL (8.4-10.2)
[2017-04-24] MEDS: MENTHOL-ZINC OXIDE OINT 113 GM TUBE TOPICAL SCH ×3 (12:05→21:40)
[2017-04-24] MEDS: MULTIVITAMINS, THERA 1 EACH TAB PO SCH (12:05)
[2017-04-24] MEDS: METHYL SALICYLATE/MENTHOL CREAM 5 OZ TOPICAL SCH ×3 (12:06→21:40)
[2017-04-24 12:22] LABS: Glucose,Whole Blood 182 mg/dL (75-99)
[2017-04-24 16:29] LABS: Glucose,Whole Blood 142 mg/dL (75-99)
[2017-04-24 20:52] LABS: Glucose,Whole Blood 153 mg/dL (75-99)
[2017-04-24] MEDS: CHOLECALCIFEROL 1,000 UNIT TAB PO SCH (21:34)
[2017-04-24] MEDS: ATORVASTATIN 40 MG TAB PO SCH (21:34)
[2017-04-24] MEDS: ASPIRIN 81 MG PO SCH (21:34)
[2017-04-24] MEDS: FERROUS SULFATE 325 MG TAB PO SCH (21:34)
[2017-04-24] MEDS: LACTOBACILLUS ACIDOPH & BULGAR 1 EACH PACKET PO SCH (21:35)
[2017-04-24] MEDS: POTASSIUM CHLORIDE ER 20 MEQ TAB.ER PO SCH (21:35)
[2017-04-24] MEDS: SENNOSIDES-DOCUSATE SODIUM 1 EACH TAB PO SCH (21:35)
[2017-04-25] MEDS: oxyCODONE-APAP 7.5-325MG 1 EACH TAB PO PRN ×3 (03:13→15:36)
[2017-04-25] MEDS: SODIUM CHLORIDE 0.9% 1,000 ML IV SCH ×2 (03:40→15:31)
--- NOTE | 2017-04-25 05:06 | PN ---
PROGRESS NOTE DATE OF SERVICE: 04/24/2017 I am covering for Dr. Gurrola. INTERVAL HISTORY: This 66-year-old woman who was admitted with pneumonia, fever and sepsis is being closely monitored. The patient is complaining of tiredness and weakness. Dr. Bhatia is following the patient closely. The most recent blood culture showed MRSA which was done on 04/20. PAST MEDICAL HISTORY: Reviewed. REVIEW OF SYSTEMS: CARDIOVASCULAR SYSTEM: No angina. RESPIRATORY SYSTEM: As mentioned earlier. GI: As mentioned. : No dysuria. NERVOUS SYSTEM: Weakness. CURRENT MEDICATIONS: Current medications are reviewed and include: 1. Tylenol 650 q.6 p.r.n. 2. DuoNeb q.i.d. and p.r.n. 3. Zyloprim 100 mg p.o. b.i.d. 4. Xanax 0.25 b.i.d. 5. Aspirin 81 mg p.o. daily. 6. Lipitor 40 mg q.h.s. 7. Vitamin D3, 1000 q.h.s. 8. Lexapro 10 mg p.o. daily. 9. Iron sulfate. 10.Lasix 40 mg p.o. daily. 11.Heparin 5 subcutaneous b.i.d. 12.Humalog scale. 13.Lactinex. 14.Milk of magnesia. 15.Multivitamins. 16.Narcan. 17.Percocet 7.5 mg q.6 p.r.n. 18.Protonix 40 mg. 19.MiraLAX 17 grams daily. 20.K-Dur 20 mEq p.o. daily. 21.Vancomycin. PHYSICAL EXAM: Patient is alert, oriented x2. Pulse is 84, blood pressure 124/71, respirations 18, temperature 98 degrees. HEENT: Conjunctivae normal. Oral mucosa moist. Neck is no jugular venous distention. No carotid bruit. No lymph node enlargement. CARDIOVASCULAR: S1 and S2, muffled. RESPIRATORY: Breath sounds diminished at the bases. Scattered rhonchi and crackles. ABDOMEN: Soft, nontender. No mass palpable. LEGS: No edema, no swelling. NERVOUS SYSTEM: Higher functions as mentioned earlier. Moves all 4 limbs. No focal motor deficits. LYMPHATICS: No lymphadenopathy of the neck, axillae or groin. SKIN: No ulcers, rashes or bleeding. LABS: Labs are reviewed. ASSESSMENT: 1. Fever with methicillin-resistant Staphylococcus aureus sepsis. 2. Pneumonia. 3. Pulmonary fibrosis on chest x-ray. 4. Atrial fibrillation with fast ventricular rate. 5. Chronic kidney disease stage 3. 6. Chronic deep venous thrombosis of the left popliteal. 7. History pneumonia and sepsis. 8. Cellulitis of the left lower leg. 9. Anemia, macrocytic. RECOMMENDATIONS AND DISCUSSION: Recommend to continue current medications, continue broad-spectrum IV antibiotics. Otherwise, await further cultures. Closely monitor. Continue the rest of medications. PT, OT evaluation. Possibly eventually ECF rehab. Dr. Gurrola will follow. Guarded prognosis. MMODL / IJN: [id number] /
[2017-04-25 06:10] LABS: Anisocytosis Slight; Basophils % (A) 0 %; CH 30.3; CHCM 29.1; Eosinophils # (A) 0.2 k/uL (0-0.7); Eosinophils % (A) 3 %; HCT 25.7 % (34.0-46.0); HGB 7.8 gm/dL (11.4-16.0); Hypochromasia Marked; Luc # (Auto) 0.31; Luc % (Auto) 4; Lymphocytes # (A) 2.1 k/uL (1.0-4.8); Lymphocytes % (A) 28 %; MCHC 30.6 g/dL (31.0-37.0); MCV 104.6 fL (80.0-100.0); Macrocytosis Moderate; Mean Platelet Volume 7.4; Monocytes # (A) 0.5 k/uL (0-1.0); Monocytes % (A) 7 %; Neutrophils # (A) 4.5 k/uL (1.3-7.7); Neutrophils % (A) 58 %; RBC 2.45 m/uL (3.80-5.40); RDW 17.4 % (11.5-15.5); WBC 7.7 k/uL (3.8-10.6); WBC (Perox) 8.21
[2017-04-25 06:11] LABS: Glucose,Whole Blood 145 mg/dL (75-99)
[2017-04-25] MEDS: INSULIN LISPRO (humaLOG) 300 UNIT/3 ML VIAL SQ SCH ×4 (06:11→22:30)
[2017-04-25 06:27] LABS: Anion Gap 9 mmol/L; Blood Urea Nitrogen 19 mg/dL (7-17); Calcium 8.1 mg/dL (8.4-10.2); Carbon Dioxide 16 mmol/L (22-30); Chloride 113 mmol/L (98-107); Glucose 141 mg/dL (74-99); Non-African American GFR(MDRD) >60 (>60 ml/min/1.73 sqM); Potassium 4.3 mmol/L (3.5-5.1); Sodium 138 mmol/L (137-145)
[2017-04-25 06:37] LABS: Manual Review Performed
--- NOTE | 2017-04-25 08:04 | P.PN ---
Subjective Principal diagnosis: Sepsis related to catheter. This is a 66-year-old white female with known history of chronic left lower 70 DVT was admitted for gram-positive sepsis related to Nance catheter. The patient Feels much better. She has difficulty with mobility secondary to her left lower extremity. No voiding difficulties otherwise stated. No fever spikes are noted. Objective - Vital Signs Vital signs: Vital Signs Temp 98.2 F 04/25/17 04:00 Pulse 72 04/25/17 04:00 Resp 18 04/25/17 04:00 BP 122/64 04/25/17 04:00 Pulse Ox 97 04/25/17 04:00 Intake & Output 04/24/17 04/25/17 04/25/17 18:59 06:59 18:59 Intake Total 462 75 600 Balance 462 75 600 Weight 89 kg 88 kg Intake: IV 75 600 Sodium Chloride 0.9% 1, 75 600 000 ml @ 75 mls/hr IV . [id number] [facility] Rx#:[id number] Oral 462 Other: Voiding Method Diaper Diaper # Voids 2 - Constitutional General appearance: Present: obese - EENT Eyes: Absent: abnormal pupil - Respiratory Respiratory: bilateral: CTA - Cardiovascular Rhythm: irregularly irregular Heart sounds: normal: S1, S2 - Gastrointestinal General gastrointestinal: Present: soft. Absent: tenderness - Musculoskeletal Musculoskeletal: Present: generalized weakness - Psychiatric Psychiatric: Present: A&O x's 3, appropriate affect, intact judgment & insight - Labs CBC & Chem 7: 04/25/17 05:38 04/25/17 05:38 Labs: Abnormal Lab Results - Last 24 Hours (Table) 04/24/17 04/24/17 04/24/17 Range/Units 08:22 08:22 11:21 RBC 2.35 L (3.80-5.40) m/uL Hgb 7.5 L (11.4-16.0) gm/dL Hct 25.1 L (34.0-46.0) % MCV 106.6 H (80.0-100.0) fL MCHC 30.0 L (31.0-37.0) g/dL RDW 18.1 H (11.5-15.5) % Chloride 115 H (98-107) mmol/L Carbon Dioxide 17 L (22-30) mmol/L BUN 24 H (7-17) mg/dL Glucose 131 H (74-99) mg/dL POC Glucose (mg/dL) 182 H (75-99) mg/dL Calcium 8.2 L (8.4-10.2) mg/dL 04/24/17 04/24/17 04/25/17 Range/Units 16:24 20:51 05:38 RBC (3.80-5.40) m/uL Hgb (11.4-16.0) gm/dL Hct (34.0-46.0) % MCV (80.0-100.0) fL MCHC (31.0-37.0) g/dL RDW (11.5-15.5) % Chloride 113 H (98-107) mmol/L Carbon Dioxide 16 L (22-30) mmol/L BUN 19 H (7-17) mg/dL Glucose 141 H (74-99) mg/dL POC Glucose (mg/dL) 142 H 153 H (75-99) mg/dL Calcium 8.1 L (8.4-10.2) mg/dL 04/25/17 04/25/17 Range/Units 05:38 06:08 RBC 2.45 L (3.80-5.40) m/uL Hgb 7.8 L (11.4-16.0) gm/dL Hct 25.7 L (34.0-46.0) % MCV 104.6 H (80.0-100.0) fL MCHC 30.6 L (31.0-37.0) g/dL RDW 17.4 H (11.5-15.5) % Chloride (98-107) mmol/L Carbon Dioxide (22-30) mmol/L BUN (7-17) mg/dL Glucose (74-99) mg/dL POC Glucose (mg/dL) 145 H (75-99) mg/dL Calcium (8.4-10.2) mg/dL Microbiology - Last 24 Hours (Table) 04/20/17 21:38 Blood Culture Gram Stain - Final Blood Blood Culture - Final Methicillin resist S. aureus Assessment and Plan (1) Fever Status: Acute (2) Pneumonia Status: Acute (3) Sepsis Status: Acute (4) At risk for readmission to hospital Status: Acute (5) Atrial fibrillation with rapid ventricular response Status: Acute (6) CKD (chronic kidney disease), stage III Status: Acute (7) Chronic deep vein thrombosis (DVT) of left popliteal vein Status: Acute (8) Pneumonia Status: Acute (9) Bacteremia associated with IV line Status: Acute Plan: Continue vancomycin. 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 Appreciate infectious disease input. New program check CBC and CP in a.m. Discharge planning. She is attempting to move in with her daughter in [facility] and the [facility]. However, she states that her daughter might not be ready at this time. See orders otherwise. Time with Patient: Less than 30
[2017-04-25] MEDS: ALPRAZolam 0.25 MG TAB PO PRN (09:55)
[2017-04-25] MEDS: FUROSEMIDE 40 MG TAB PO SCH (09:56)
[2017-04-25] MEDS: ALLOPURINOL 100 MG TAB PO SCH ×2 (09:56→22:29)
[2017-04-25] MEDS: ESCITALOPRAM 10 MG TAB PO SCH (09:56)
[2017-04-25] MEDS: POLYETHYLENE GLYCOL 3350 17 GM POWD.PACK PO SCH ×2 (09:57→12:17)
[2017-04-25] MEDS: PANTOPRAZOLE 40 MG TABLET PO SCH (09:57)
[2017-04-25] MEDS: HEPARIN SODIUM,PORCINE 5,000 UNIT/ML 1 ML VIAL SQ SCH ×2 (09:57→22:30)
[2017-04-25] MEDS: METHYL SALICYLATE/MENTHOL CREAM 5 OZ TOPICAL SCH ×2 (09:59→17:08)
[2017-04-25] MEDS: MENTHOL-ZINC OXIDE OINT 113 GM TUBE TOPICAL SCH ×2 (09:59→17:08)
[2017-04-25] MEDS: VANCOMYCIN 1,500 MG in SODIUM CHLORIDE 0.9% 250 ML IVPB SCH (10:06)
[2017-04-25 12:01] LABS: Glucose,Whole Blood 206 mg/dL (75-99)
[2017-04-25] MEDS: MULTIVITAMINS, THERA 1 EACH TAB PO SCH (12:17)
[2017-04-25 16:50] LABS: Glucose,Whole Blood 154 mg/dL (75-99)
--- NOTE | 2017-04-25 20:32 | P.PN ---
Subjective Principal diagnosis: Sepsis 66-year-old female known to the infectious disease service presents from her extended care facility where she is developed fever over the last 72 hours it was not improving with local treatments. Because of her ongoing fever she was referred to hospital for further intervention. She's been noticed to have fever at the facility of greater than 101. Despite antibiotic therapy and antipruritic she was remaining febrile. Suspect sent to the hospital. Upon arrival she was not hypotensive but it evidence of significant illness. With evidence of positive blood cultures the infectious diseases consultation was requested. The patient is in no history of the fall out of her wheelchair in April 2016. Causing the extensive contusions especially the left lower extremity with the extensive trauma in full-thickness skin loss is very slow to heal. She relates that she's feeling distally better this afternoon. She's not having chills or rigors with her fever. She was hospitalized 02/21/2017 at which point in time she had respiratory failure. She had pneumonia and acute renal failure. She had IV access placed with a Nance line catheter to the right anterior chest wall. She does have poor IV access. With evidence of her gram-positive sepsis, the intervenous access was removed and now has peripheral IVs. She remains weak in any event significant assistance Objective - Vital Signs Vital signs: Vital Signs Temp 98.4 F 04/25/17 16:00 Pulse 96 04/25/17 16:00 Resp 18 04/25/17 16:00 BP 122/62 04/25/17 16:00 Pulse Ox 95 04/25/17 20:19 Intake & Output 04/25/17 04/25/17 04/26/17 06:59 18:59 06:59 Intake Total 75 1056 Balance 75 1056 Weight 88 kg 88 kg Intake: IV 75 600 Sodium Chloride 0.9% 1, 75 600 000 ml @ 75 mls/hr IV . [id number] [facility] Rx#:[id number] Oral 456 Other: Voiding Method Diaper Diaper # Voids 1 - Exam 66-year-old woman who suffers from obesity and general debility appears to be acutely ill. She is weak but is able to communicate. HEENT: Anicteric conjunctiva are pink but dry nasal mucosa grossly intact without significant lesions, there is no thrush. Neck: The neck is supple without significant lymphadenopathy or thyromegaly. Lungs: Good bilateral air entry without significant crackles or wheezing. There is no significant bronchial sounds. There is no egophony or dullness. Heart: Regular rate and rhythm with an audible S1-S2, no S3 no S4. There is no significant murmur click or rub, PMI was nondisplaced. Abdomen: Obese, Positive bowel sounds soft and nontender without palpable masses or organomegaly. There was no guarding or rebound. Extremities: The upper extremities have excellent pulses they are symmetric, no significant petechiae or telangiectasia. No splinter hemorrhages were noted. Lower extremities have the chronic edema. The left pretibial surface continues to have evidence of some of the ulceration has been slow to heal in this region from her trauma. There is only a scant amount of drainage at this time. He remains tender. Neuro: Awake alert oriented to person place and time. He has profound generalized weakness and apparently is not able to ambulate. - Labs CBC & Chem 7: 04/25/17 05:38 04/25/17 05:38 Labs: Abnormal Lab Results - Last 24 Hours (Table) 04/24/17 04/25/17 04/25/17 Range/Units 20:51 05:38 05:38 RBC 2.45 L (3.80-5.40) m/uL Hgb 7.8 L (11.4-16.0) gm/dL Hct 25.7 L (34.0-46.0) % MCV 104.6 H (80.0-100.0) fL MCHC 30.6 L (31.0-37.0) g/dL RDW 17.4 H (11.5-15.5) % Chloride 113 H (98-107) mmol/L Carbon Dioxide 16 L (22-30) mmol/L BUN 19 H (7-17) mg/dL Glucose 141 H (74-99) mg/dL POC Glucose (mg/dL) 153 H (75-99) mg/dL Calcium 8.1 L (8.4-10.2) mg/dL 04/25/17 04/25/17 04/25/17 Range/Units 06:08 11:47 16:48 RBC (3.80-5.40) m/uL Hgb (11.4-16.0) gm/dL Hct (34.0-46.0) % MCV (80.0-100.0) fL MCHC (31.0-37.0) g/dL RDW (11.5-15.5) % Chloride (98-107) mmol/L Carbon Dioxide (22-30) mmol/L BUN (7-17) mg/dL Glucose (74-99) mg/dL POC Glucose (mg/dL) 145 H 206 H 154 H (75-99) mg/dL Calcium (8.4-10.2) mg/dL Laboratory Results WBC 7.7 k/uL (3.8-10.6) 04/25/17 05:38 RBC 2.45 m/uL (3.80-5.40) L 04/25/17 05:38 Hgb 7.8 gm/dL (11.4-16.0) L 04/25/17 05:38 Hct 25.7 % (34.0-46.0) L 04/25/17 05:38 MCV 104.6 fL (80.0-100.0) H 04/25/17 05:38 MCH 32.0 pg (25.0-35.0) 04/25/17 05:38 MCHC 30.6 g/dL (31.0-37.0) L 04/25/17 05:38 RDW 17.4 % (11.5-15.5) H 04/25/17 05:38 Plt Count 299 k/uL (150-450) 04/25/17 05:38 Neutrophils % 58 % 04/25/17 05:38 Lymphocytes % 28 % 04/25/17 05:38 Monocytes % 7 % 04/25/17 05:38 Eosinophils % 3 % 04/25/17 05:38 Basophils % 0 % 04/25/17 05:38 Neutrophils # 4.5 k/uL (1.3-7.7) 04/25/17 05:38 Lymphocytes # 2.1 k/uL (1.0-4.8) 04/25/17 05:38 Monocytes # 0.5 k/uL (0-1.0) 04/25/17 05:38 Eosinophils # 0.2 k/uL (0-0.7) 04/25/17 05:38 Basophils # 0.0 k/uL (0-0.2) 04/25/17 05:38 Manual Slide Review Performed 04/25/17 05:38 Polychromasia Present 04/20/17 17:46 Hypochromasia Marked 04/25/17 05:38 Poikilocytosis (manual Present 04/24/17 08:22 Anisocytosis Slight 04/25/17 05:38 Macrocytosis Moderate 04/25/17 05:38 PT 11.1 sec (9.0-12.0) 04/20/17 17:46 INR 1.1 (<1.2) 04/20/17 17:46 APTT 18.5 sec (22.0-30.0) L 04/20/17 17:46 Sodium 138 mmol/L (137-145) 04/25/17 05:38 Potassium 4.3 mmol/L (3.5-5.1) 04/25/17 05:38 Chloride 113 mmol/L (98-107) H 04/25/17 05:38 Carbon Dioxide 16 mmol/L (22-30) L 04/25/17 05:38 Anion Gap 9 mmol/L 04/25/17 05:38 BUN 19 mg/dL (7-17) H 04/25/17 05:38 Creatinine 0.90 mg/dL (0.52-1.04) 04/25/17 05:38 Est GFR (MDRD) Af Amer >60 (>60 ml/min/1.73 sqM) 04/25/17 05:38 Est GFR (MDRD) Non-Af >60 (>60 ml/min/1.73 sqM) 04/25/17 05:38 Glucose 141 mg/dL (74-99) H 04/25/17 05:38 POC Glucose (mg/dL) 154 mg/dL (75-99) H 04/25/17 16:48 POC Glu Grain Drier Lyssa Reddy 04/25/17 16:[address] Glu mg/dL 114 mg/dL 04/20/17 17:46 Hemoglobin A1c 5.6 % (4.2-6.1) 04/20/17 17:46 Lactic Ac Sepsis Rflx Y 04/20/17 18:29 Plasma Lactic Acid Maximus 1.3 mmol/L (0.7-2.0) 04/20/17 22:10 Calcium 8.1 mg/dL (8.4-10.2) L 04/25/17 05:38 Total Bilirubin 0.2 mg/dL (0.2-1.3) 04/23/17 05:16 AST 59 U/L (14-36) H 04/23/17 05:16 ALT 51 U/L (9-52) 04/23/17 05:16 Alkaline Phosphatase 183 U/L (38-126) H 04/23/17 05:16 Total Protein 5.5 g/dL (6.3-8.2) L 04/23/17 05:16 Albumin 2.1 g/dL (3.5-5.0) L 04/23/17 05:16 Urine Color Yellow 04/20/17 19:22 Urine Appearance Cloudy (Clear) H 04/20/17 19:22 Urine pH 5.0 (5.0-8.0) 04/20/17 19:22 Ur Specific [place] 1.011 (1.001-1.035) 04/20/17 19:22 Urine Protein Trace (Negative) H 04/20/17 19:22 Urine Glucose (UA) Negative (Negative) 04/20/17 19:22 Urine Ketones Negative (Negative) 04/20/17 19:22 Urine Blood Small (Negative) H 04/20/17 19:22 Urine Nitrite Negative (Negative) 04/20/17 19:22 Urine Bilirubin Negative (Negative) 04/20/17 19:22 Urine Urobilinogen <2.0 mg/dL (<2.0) 04/20/17 19:22 Ur Leukocyte Esterase Moderate (Negative) H 04/20/17 19:22 Urine RBC 3 /hpf (0-5) 04/20/17 19:22 Urine WBC 10 /hpf (0-5) H 04/20/17 19:22 Ur Squamous Epith Cells 1 /hpf (0-4) 04/20/17 19:22 Amorphous Sediment Rare /hpf (None) H 04/20/17 19:22 Urine Mucus Rare /hpf (None) H 04/20/17 19:22 Vancomycin Trough 22.7 ug/mL 04/24/17 08:22 Microbiology 04/20/17 21:38 Blood Blood Culture Gram Stain - Final 04/20/17 21:38 Blood Blood Culture - Final Methicillin resist S. aureus 04/20/17 19:22 Urine,Catheterized Urine Culture - Final 04/20/17 21:38 Blood Blood Culture - Final Assessment and Plan (1) Fever Narrative/Plan: 66-year-old woman presents to [facility] with ongoing fever that they are aware having great difficulties trying to reduce. Upon arrival to Hospital there is evidence of sepsis. Is evidence of positive blood culture with gram-positive cocci. The patient was hospitalized this summer at which time she had developed respiratory failure and required intubation sedation and mechanical ventilation. IV access was placed. Apparently this has remained in place while she's been at [facility]. This appears to be the likely portal of infection at this time. We'll work with the primary team to see if this cannot be removed and have some type of temporary access placed. She will need negative blood cultures before a more permanent type of IV access can be placed such as a PICC line. For antimicrobial therapy vancomycin is being utilized. There is no need for gram-negative coverage at this time given the current positive blood cultures. Continuing ongoing local wound care to the left leg in the treatment will be with the opticell silver which can be changed every other day. Repeat blood cultures been requested for the morning. She was monitored. The chronic anemia has improved. Acute renal failure has improved. At this time the infected catheter has been removed. Follow-up blood cultures are in process. Once we have evidence of negative blood cultures and PICC line may be placed so that she may complete her next 2 weeks of intravenous antibiotic therapy for her MRSA bacteremia. Status: Acute (2) Bacteremia associated with IV line Status: Acute (3) Dehydration Status: Acute
[2017-04-25 22:23] LABS: Glucose,Whole Blood 184 mg/dL (75-99)
[2017-04-25] MEDS: CHOLECALCIFEROL 1,000 UNIT TAB PO SCH (22:29)
[2017-04-25] MEDS: FERROUS SULFATE 325 MG TAB PO SCH (22:29)
[2017-04-25] MEDS: ASPIRIN 81 MG PO SCH (22:29)
[2017-04-25] MEDS: ATORVASTATIN 40 MG TAB PO SCH (22:29)
[2017-04-25] MEDS: SENNOSIDES-DOCUSATE SODIUM 1 EACH TAB PO SCH (22:30)
[2017-04-25] MEDS: POTASSIUM CHLORIDE ER 20 MEQ TAB.ER PO SCH (22:30)
[2017-04-25] MEDS: LACTOBACILLUS ACIDOPH & BULGAR 1 EACH PACKET PO SCH (22:30)
[2017-04-26] MEDS: ACETAMINOPHEN TAB 325 MG TAB PO PRN ×2 (00:37→16:34)
[2017-04-26] MEDS: oxyCODONE-APAP 7.5-325MG 1 EACH TAB PO PRN ×3 (00:50→18:08)
[2017-04-26 06:26] LABS: Glucose,Whole Blood 139 mg/dL (75-99)
[2017-04-26 06:30] LABS: Anisocytosis Slight; CH 30.6; CHCM 30.4; HCT 24.6 % (34.0-46.0); HDW 3.38; HGB 7.7 gm/dL (11.4-16.0); Hypochromasia Marked; MCH 31.5 pg (25.0-35.0); MCHC 31.1 g/dL (31.0-37.0); MCV 101.3 fL (80.0-100.0); Macrocytosis Slight; Mean Platelet Volume 7.9; RBC 2.43 m/uL (3.80-5.40); RDW 17.4 % (11.5-15.5); WBC (Perox) 7.03
[2017-04-26 06:43] LABS: Add Differential Manual Differential
[2017-04-26 06:45] LABS: Manual Review Performed; Nucleated Red Blood Cells 0 /100 WBC (0-0); Total Cells Counted 100
[2017-04-26 07:06] LABS: ALT 42 U/L (9-52); AST 33 U/L (14-36); Alkaline Phosphatase 185 U/L (38-126); Anion Gap 9 mmol/L; Blood Urea Nitrogen 18 mg/dL (7-17); Calcium 8.1 mg/dL (8.4-10.2); Carbon Dioxide 19 mmol/L (22-30); Chloride 114 mmol/L (98-107); Glucose 130 mg/dL (74-99); Non-African American GFR(MDRD) 59 (>60 ml/min/1.73 sqM); Potassium 4.2 mmol/L (3.5-5.1); Sodium 142 mmol/L (137-145); Total Bilirubin 0.2 mg/dL (0.2-1.3); Total Protein 5.7 g/dL (6.3-8.2)
[2017-04-26] MEDS: METHYL SALICYLATE/MENTHOL CREAM 5 OZ TOPICAL SCH ×4 (07:20→21:20)
[2017-04-26] MEDS: MENTHOL-ZINC OXIDE OINT 113 GM TUBE TOPICAL SCH ×5 (07:20→23:41)
[2017-04-26] MEDS: ALLOPURINOL 100 MG TAB PO SCH ×2 (09:37→20:01)
[2017-04-26] MEDS: FUROSEMIDE 40 MG TAB PO SCH (09:37)
[2017-04-26] MEDS: ESCITALOPRAM 10 MG TAB PO SCH (09:37)
[2017-04-26] MEDS: HEPARIN SODIUM,PORCINE 5,000 UNIT/ML 1 ML VIAL SQ SCH ×2 (09:38→20:02)
[2017-04-26] MEDS: POLYETHYLENE GLYCOL 3350 17 GM POWD.PACK PO SCH (09:39)
[2017-04-26] MEDS: PANTOPRAZOLE 40 MG TABLET PO SCH (09:39)
[2017-04-26] MEDS: INSULIN LISPRO (humaLOG) 300 UNIT/3 ML VIAL SQ SCH ×4 (09:44→21:13)
[2017-04-26] MEDS: SODIUM CHLORIDE 0.9% 1,000 ML IV SCH (09:44)
[2017-04-26 11:39] LABS: Glucose,Whole Blood 167 mg/dL (75-99)
[2017-04-26] MEDS: MULTIVITAMINS, THERA 1 EACH TAB PO SCH (12:26)
[2017-04-26] MEDS: VANCOMYCIN 1,500 MG in SODIUM CHLORIDE 0.9% 250 ML IVPB SCH (12:28)
[2017-04-26 16:34] LABS: Glucose,Whole Blood 167 mg/dL (75-99)
[2017-04-26] MEDS: ATORVASTATIN 40 MG TAB PO SCH (20:01)
[2017-04-26] MEDS: POTASSIUM CHLORIDE ER 20 MEQ TAB.ER PO SCH (20:01)
[2017-04-26] MEDS: CHOLECALCIFEROL 1,000 UNIT TAB PO SCH (20:01)
[2017-04-26] MEDS: SENNOSIDES-DOCUSATE SODIUM 1 EACH TAB PO SCH (20:01)
[2017-04-26] MEDS: ASPIRIN 81 MG PO SCH (20:01)
[2017-04-26] MEDS: FERROUS SULFATE 325 MG TAB PO SCH (20:01)
[2017-04-26] MEDS: LACTOBACILLUS ACIDOPH & BULGAR 1 EACH PACKET PO SCH (20:02)
[2017-04-26 20:47] LABS: Glucose,Whole Blood 223 mg/dL (75-99)
--- NOTE | 2017-04-26 21:26 | P.PN ---
Subjective Principal diagnosis: Sepsis 66-year-old female known to the infectious disease service presents from her extended care facility where she is developed fever over the last 72 hours it was not improving with local treatments. Because of her ongoing fever she was referred to hospital for further intervention. She's been noticed to have fever at the facility of greater than 101. Despite antibiotic therapy and antipruritic she was remaining febrile. Suspect sent to the hospital. Upon arrival she was not hypotensive but it evidence of significant illness. With evidence of positive blood cultures the infectious diseases consultation was requested. The patient is in no history of the fall out of her wheelchair in April 2016. Causing the extensive contusions especially the left lower extremity with the extensive trauma in full-thickness skin loss is very slow to heal. She relates that she's feeling distally better this afternoon. She's not having chills or rigors with her fever. She was hospitalized 02/21/2017 at which point in time she had respiratory failure. She had pneumonia and acute renal failure. She had IV access placed with a Nance line catheter to the right anterior chest wall. She does have poor IV access. With evidence of her gram-positive sepsis, the intervenous access was removed and now has peripheral IVs. She remains weak and remains in need of significant assistance Objective - Vital Signs Vital signs: Vital Signs Temp 97.6 F 04/26/17 12:00 Pulse 73 04/26/17 16:00 Resp 16 04/26/17 16:00 BP 138/60 04/26/17 16:00 Pulse Ox 98 04/26/17 16:00 Intake & Output 04/26/17 04/26/17 04/27/17 06:59 18:59 06:59 Intake Total 10 1774 Balance 10 1773 Weight 88 kg Intake: IV 10 0.9 Saline Flush 10 Oral 1774 Other: Voiding Method Diaper Diaper # Voids 2 3 # Bowel Movements 0 - Exam 66-year-old woman who suffers from obesity and general debility appears to be acutely ill. She is weak but is able to communicate. HEENT: Anicteric conjunctiva are pink but dry nasal mucosa grossly intact without significant lesions, there is no thrush. Neck: The neck is supple without significant lymphadenopathy or thyromegaly. The prior site of the IV catheter is without expressible purulence or erythema. It is not tender. Lungs: Good bilateral air entry without significant crackles or wheezing. There is no significant bronchial sounds. There is no egophony or dullness. Heart: Regular rate and rhythm with an audible S1-S2, no S3 no S4. There is no significant murmur click or rub, PMI was nondisplaced. Abdomen: Obese, Positive bowel sounds soft and nontender without palpable masses or organomegaly. There was no guarding or rebound. Extremities: The upper extremities have excellent pulses they are symmetric, no significant petechiae or telangiectasia. No splinter hemorrhages were noted. Lower extremities have the chronic edema. The left pretibial surface continues to have evidence of some of the ulceration has been slow to heal in this region from her trauma. There is only a scant amount of drainage at this time. He remains tender. Neuro: Awake alert oriented to person place and time. He has profound generalized weakness and apparently is not able to ambulate. - Labs CBC & Chem 7: 04/26/17 05:24 04/26/17 05:24 Labs: Abnormal Lab Results - Last 24 Hours (Table) 04/25/17 04/26/17 04/26/17 Range/Units 21:56 05:24 05:24 RBC 2.43 L (3.80-5.40) m/uL Hgb 7.7 L (11.4-16.0) gm/dL Hct 24.6 L (34.0-46.0) % MCV 101.3 H (80.0-100.0) fL RDW 17.4 H (11.5-15.5) % Chloride 114 H (98-107) mmol/L Carbon Dioxide 19 L (22-30) mmol/L BUN 18 H (7-17) mg/dL Glucose 130 H (74-99) mg/dL POC Glucose (mg/dL) 184 H (75-99) mg/dL Calcium 8.1 L (8.4-10.2) mg/dL Alkaline Phosphatase 185 H (38-126) U/L Total Protein 5.7 L (6.3-8.2) g/dL Albumin 2.2 L (3.5-5.0) g/dL 04/26/17 04/26/17 04/26/17 Range/Units 06:16 11:36 16:33 RBC (3.80-5.40) m/uL Hgb (11.4-16.0) gm/dL Hct (34.0-46.0) % MCV (80.0-100.0) fL RDW (11.5-15.5) % Chloride (98-107) mmol/L Carbon Dioxide (22-30) mmol/L BUN (7-17) mg/dL Glucose (74-99) mg/dL POC Glucose (mg/dL) 139 H 167 H 167 H (75-99) mg/dL Calcium (8.4-10.2) mg/dL Alkaline Phosphatase (38-126) U/L Total Protein (6.3-8.2) g/dL Albumin (3.5-5.0) g/dL 04/26/17 Range/Units 20:45 RBC (3.80-5.40) m/uL Hgb (11.4-16.0) gm/dL Hct (34.0-46.0) % MCV (80.0-100.0) fL RDW (11.5-15.5) % Chloride (98-107) mmol/L Carbon Dioxide (22-30) mmol/L BUN (7-17) mg/dL Glucose (74-99) mg/dL POC Glucose (mg/dL) 223 H (75-99) mg/dL Calcium (8.4-10.2) mg/dL Alkaline Phosphatase (38-126) U/L Total Protein (6.3-8.2) g/dL Albumin (3.5-5.0) g/dL Microbiology - Last 24 Hours (Table) 04/25/17 15:47 Blood Culture - Preliminary Blood No Growth after 24 hours 04/25/17 15:35 Blood Culture - Preliminary Blood No Growth after 24 hours Laboratory Results WBC 7.0 k/uL (3.8-10.6) 04/26/17 05:24 RBC 2.43 m/uL (3.80-5.40) L 04/26/17 05:24 Hgb 7.7 gm/dL (11.4-16.0) L 04/26/17 05:24 Hct 24.6 % (34.0-46.0) L 04/26/17 05:24 MCV 101.3 fL (80.0-100.0) H 04/26/17 05:24 MCH 31.5 pg (25.0-35.0) 04/26/17 05:24 MCHC 31.1 g/dL (31.0-37.0) 04/26/17 05:24 RDW 17.4 % (11.5-15.5) H 04/26/17 05:24 Plt Count 294 k/uL (150-450) 04/26/17 05:24 Neutrophils % 58 % 04/25/17 05:38 Neutrophils % (Manual) 62 % 04/26/17 05:24 Lymphocytes % 28 % 04/25/17 05:38 Lymphocytes % (Manual) 29 % 04/26/17 05:24 Monocytes % 7 % 04/25/17 05:38 Monocytes % (Manual) 9 % 04/26/17 05:24 Eosinophils % 3 % 04/25/17 05:38 Basophils % 0 % 04/25/17 05:38 Neutrophils # 4.5 k/uL (1.3-7.7) 04/25/17 05:38 Neutrophils # (Manual) 4.34 k/uL (1.3-7.7) 04/26/17 05:24 Lymphocytes # 2.1 k/uL (1.0-4.8) 04/25/17 05:38 Lymphocytes # (Manual) 2.03 k/uL (1.0-4.8) 04/26/17 05:24 Monocytes # 0.5 k/uL (0-1.0) 04/25/17 05:38 Monocytes # (Manual) 0.63 k/uL (0-1.0) 04/26/17 05:24 Eosinophils # 0.2 k/uL (0-0.7) 04/25/17 05:38 Basophils # 0.0 k/uL (0-0.2) 04/25/17 05:38 Nucleated RBCs 0 /100 WBC (0-0) 04/26/17 05:24 Manual Slide Review Performed 04/26/17 05:24 Polychromasia Present 04/20/17 17:46 Hypochromasia Marked 04/26/17 05:24 Poikilocytosis (manual Present 04/24/17 08:22 Anisocytosis Slight 04/26/17 05:24 Macrocytosis Slight 04/26/17 05:24 PT 11.1 sec (9.0-12.0) 04/20/17 17:46 INR 1.1 (<1.2) 04/20/17 17:46 APTT 18.5 sec (22.0-30.0) L 04/20/17 17:46 Sodium 142 mmol/L (137-145) 04/26/17 05:24 Potassium 4.2 mmol/L (3.5-5.1) 04/26/17 05:24 Chloride 114 mmol/L (98-107) H 04/26/17 05:24 Carbon Dioxide 19 mmol/L (22-30) L 04/26/17 05:24 Anion Gap 9 mmol/L 04/26/17 05:24 BUN 18 mg/dL (7-17) H 04/26/17 05:24 Creatinine 0.95 mg/dL (0.52-1.04) 04/26/17 05:24 Est GFR (MDRD) Af Amer >60 (>60 ml/min/1.73 sqM) 04/26/17 05:24 Est GFR (MDRD) Non-Af 59 (>60 ml/min/1.73 sqM) 04/26/17 05:24 Glucose 130 mg/dL (74-99) H 04/26/17 05:24 POC Glucose (mg/dL) 223 mg/dL (75-99) H 04/26/17 20:45 POC Glu [employer] Inspector ID Leatha Adrian 04/26/17 20:[address] Glu mg/dL 114 mg/dL 04/20/17 17:46 Hemoglobin A1c 5.6 % (4.2-6.1) 04/20/17 17:46 Lactic Ac Sepsis Rflx Y 04/20/17 18:29 Plasma Lactic Acid Maximus 1.3 mmol/L (0.7-2.0) 04/20/17 22:10 Calcium 8.1 mg/dL (8.4-10.2) L 04/26/17 05:24 Total Bilirubin 0.2 mg/dL (0.2-1.3) 04/26/17 05:24 AST 33 U/L (14-36) 04/26/17 05:24 ALT 42 U/L (9-52) 04/26/17 05:24 Alkaline Phosphatase 185 U/L (38-126) H 04/26/17 05:24 Total Protein 5.7 g/dL (6.3-8.2) L 04/26/17 05:24 Albumin 2.2 g/dL (3.5-5.0) L 04/26/17 05:24 Urine Color Yellow 04/20/17 19:22 Urine Appearance Cloudy (Clear) H 04/20/17 19:22 Urine pH 5.0 (5.0-8.0) 04/20/17 19:22 Ur Specific [place] 1.011 (1.001-1.035) 04/20/17 19:22 Urine Protein Trace (Negative) H 04/20/17 19:22 Urine Glucose (UA) Negative (Negative) 04/20/17 19:22 Urine Ketones Negative (Negative) 04/20/17 19:22 Urine Blood Small (Negative) H 04/20/17 19:22 Urine Nitrite Negative (Negative) 04/20/17 19:22 Urine Bilirubin Negative (Negative) 04/20/17 19:22 Urine Urobilinogen <2.0 mg/dL (<2.0) 04/20/17 19:22 Ur Leukocyte Esterase Moderate (Negative) H 04/20/17 19:22 Urine RBC 3 /hpf (0-5) 04/20/17 19:22 Urine WBC 10 /hpf (0-5) H 04/20/17 19:22 Ur Squamous Epith Cells 1 /hpf (0-4) 04/20/17 19:22 Amorphous Sediment Rare /hpf (None) H 04/20/17 19:22 Urine Mucus Rare /hpf (None) H 04/20/17 19:22 Vancomycin Trough 22.7 ug/mL 04/24/17 08:22 Microbiology 04/25/17 15:47 Blood Blood Culture - Preliminary No Growth after 24 hours 04/25/17 15:35 Blood Blood Culture - Preliminary No Growth after 24 hours 04/20/17 21:38 Blood Blood Culture Gram Stain - Final 04/20/17 21:38 Blood Blood Culture - Final Methicillin resist S. aureus 04/20/17 19:22 Urine,Catheterized Urine Culture - Final 04/20/17 21:38 Blood Blood Culture - Final Assessment and Plan (1) Fever Narrative/Plan: 66-year-old [facility] with ongoing fever that they are aware having great difficulties trying to reduce. Upon arrival to Hospital there is evidence of sepsis. Is evidence of positive blood culture with gram-positive cocci. The patient was hospitalized this summer at which time she had developed respiratory failure and required intubation sedation and mechanical ventilation. IV access was placed. Apparently this has remained in place while she's been at the [facility] care facility. This appears to be the likely portal of infection at this time. We'll work with the primary team to see if this cannot be removed and have some type of temporary access placed. She will need negative blood cultures before a more permanent type of IV access can be placed such as a PICC line. For antimicrobial therapy vancomycin is being utilized. There is no need for gram-negative coverage at this time given the current positive blood cultures. Continuing ongoing local wound care to the left leg in the treatment will be with the opticell silver which can be changed every other day. Repeat blood cultures been requested for the morning. She was monitored. The chronic anemia has improved. Acute renal failure has improved. At this time the infected catheter has been removed. Follow-up blood cultures are in process. In are negative at 24 hours If in the morning there is evidence of negative blood cultures and PICC line may be placed so that she may complete her next 2 weeks of intravenous antibiotic therapy for her MRSA bacteremia. Status: Acute (2) Bacteremia associated with IV line Status: Acute (3) Dehydration Status: Acute
[2017-04-27] MEDS: MENTHOL-ZINC OXIDE OINT 113 GM TUBE TOPICAL SCH ×4 (02:35→22:26)
[2017-04-27] MEDS: oxyCODONE-APAP 7.5-325MG 1 EACH TAB PO PRN ×4 (02:36→22:29)
[2017-04-27] MEDS: SODIUM CHLORIDE 0.9% 1,000 ML IV SCH ×2 (05:40→10:07)
[2017-04-27 05:55] LABS: Glucose,Whole Blood 154 mg/dL (75-99)
[2017-04-27 06:30] LABS: Anion Gap 12 mmol/L; Blood Urea Nitrogen 16 mg/dL (7-17); Calcium 8.4 mg/dL (8.4-10.2); Carbon Dioxide 17 mmol/L (22-30); Chloride 113 mmol/L (98-107); Glucose 131 mg/dL (74-99); Non-African American GFR(MDRD) >60 (>60 ml/min/1.73 sqM); Potassium 4.2 mmol/L (3.5-5.1); Sodium 142 mmol/L (137-145)
[2017-04-27] MEDS: INSULIN LISPRO (humaLOG) 300 UNIT/3 ML VIAL SQ SCH ×4 (06:39→22:24)
[2017-04-27 08:30] LABS: Anisocytosis Slight; Basophils # (A) 0.1 k/uL (0-0.2); Basophils % (A) 1 %; CH 30.2; CHCM 28.8; Eosinophils # (A) 0.3 k/uL (0-0.7); Eosinophils % (A) 4 %; HCT 25.5 % (34.0-46.0); HDW 3.24; HGB 7.6 gm/dL (11.4-16.0); Hypochromasia Marked; Luc # (Auto) 0.24; Luc % (Auto) 3; Lymphocytes # (A) 1.9 k/uL (1.0-4.8); Lymphocytes % (A) 23 %; MCH 31.4 pg (25.0-35.0); MCHC 29.9 g/dL (31.0-37.0); MCV 105.2 fL (80.0-100.0); Macrocytosis Moderate; Mean Platelet Volume 7.8; Monocytes # (A) 0.5 k/uL (0-1.0); Monocytes % (A) 6 %; Neutrophils # (A) 5.1 k/uL (1.3-7.7); Neutrophils % (A) 63 %; RBC 2.42 m/uL (3.80-5.40); WBC 8.1 k/uL (3.8-10.6); WBC (Perox) 8.15
--- NOTE | 2017-04-27 08:47 | P.PN ---
Subjective Principal diagnosis: Sepsis related to catheter. This is a 66-year-old white female with known history of chronic left lower 70 DVT was admitted for gram-positive sepsis related to Nance catheter. The patient Feels much better. She has difficulty with mobility secondary to her left lower extremity. No voiding difficulties otherwise stated. No fever spikes are noted. Objective - Vital Signs Vital signs: Vital Signs Temp 98.7 F 04/27/17 03:10 Pulse 84 04/27/17 03:10 Resp 18 04/27/17 03:10 BP 122/60 04/27/17 03:10 Pulse Ox 92 L 04/27/17 03:10 Intake & Output 04/26/17 04/27/17 04/27/17 18:59 06:59 18:59 Intake Total 1774 140 Balance 1774 140 Weight 86.5 kg Intake: Intake, IV Titration 140 Amount Sodium Chloride 0.9% 1, 140 000 ml @ 75 mls/hr IV . [id number] [facility] Rx#:[id number] Oral 1774 0 Other: Voiding Method Diaper Diaper # Voids 3 2 # Bowel Movements 0 - Constitutional General appearance: Present: obese - EENT Eyes: Absent: abnormal pupil - Respiratory Respiratory: bilateral: CTA - Cardiovascular Rhythm: irregularly irregular Heart sounds: normal: S1, S2 - Gastrointestinal General gastrointestinal: Present: soft. Absent: tenderness - Integumentary Integumentary Comment(s): The patient 66-year-old white female essentially admitted for sepsis related to peripheral vascular access. The patient is actually doing quite well. Blood cultures are negative. We will go ahead and order PICC line. - Musculoskeletal Musculoskeletal: Present: generalized weakness - Psychiatric Psychiatric: Present: A&O x's 3 - Labs CBC & Chem 7: 04/27/17 05:25 04/27/17 05:25 Labs: Abnormal Lab Results - Last 24 Hours (Table) 04/26/17 04/26/17 04/26/17 Range/Units 11:36 16:33 20:45 RBC (3.80-5.40) m/uL Hgb (11.4-16.0) gm/dL Hct (34.0-46.0) % MCV (80.0-100.0) fL MCHC (31.0-37.0) g/dL RDW (11.5-15.5) % Chloride (98-107) mmol/L Carbon Dioxide (22-30) mmol/L Glucose (74-99) mg/dL POC Glucose (mg/dL) 167 H 167 H 223 H (75-99) mg/dL 04/27/17 04/27/17 04/27/17 Range/Units 05:25 05:25 05:53 RBC 2.42 L (3.80-5.40) m/uL Hgb 7.6 L (11.4-16.0) gm/dL Hct 25.5 L (34.0-46.0) % MCV 105.2 H (80.0-100.0) fL MCHC 29.9 L (31.0-37.0) g/dL RDW 17.0 H (11.5-15.5) % Chloride 113 H (98-107) mmol/L Carbon Dioxide 17 L (22-30) mmol/L Glucose 131 H (74-99) mg/dL POC Glucose (mg/dL) 154 H (75-99) mg/dL Microbiology - Last 24 Hours (Table) 04/25/17 15:47 Blood Culture - Preliminary Blood No Growth after 24 hours 04/25/17 15:35 Blood Culture - Preliminary Blood No Growth after 24 hours Assessment and Plan (1) Fever Status: Acute (2) Pneumonia Status: Acute (3) Sepsis Status: Acute (4) At risk for readmission to hospital Status: Acute (5) Atrial fibrillation with rapid ventricular response Status: Acute (6) CKD (chronic kidney disease), stage III Status: Acute (7) Chronic deep vein thrombosis (DVT) of left popliteal vein Status: Acute (8) Pneumonia Status: Acute (9) Bacteremia associated with IV line Status: Acute Plan: PICC line will be ordered. We will anticipate discharge in the a.m. once stable. She can be transferred to general medical floor. Time with Patient: Less than 30
[2017-04-27] MEDS: HEPARIN SODIUM,PORCINE 5,000 UNIT/ML 1 ML VIAL SQ SCH ×2 (10:06→22:24)
[2017-04-27] MEDS: FUROSEMIDE 40 MG TAB PO SCH (10:06)
[2017-04-27] MEDS: ALLOPURINOL 100 MG TAB PO SCH ×2 (10:06→22:23)
[2017-04-27] MEDS: PANTOPRAZOLE 40 MG TABLET PO SCH (10:06)
[2017-04-27] MEDS: ESCITALOPRAM 10 MG TAB PO SCH (10:06)
[2017-04-27] MEDS: POLYETHYLENE GLYCOL 3350 17 GM POWD.PACK PO SCH (10:09)
[2017-04-27] MEDS: METHYL SALICYLATE/MENTHOL CREAM 5 OZ TOPICAL SCH ×3 (10:09→22:26)
[2017-04-27 12:06] LABS: Glucose,Whole Blood 142 mg/dL (75-99)
[2017-04-27] MEDS: VANCOMYCIN 1,500 MG in SODIUM CHLORIDE 0.9% 250 ML IVPB SCH (12:10)
[2017-04-27] MEDS: MULTIVITAMINS, THERA 1 EACH TAB PO SCH (12:10)
[2017-04-27 16:27] LABS: Glucose,Whole Blood 146 mg/dL (75-99)
[2017-04-27 20:45] LABS: Glucose,Whole Blood 160 mg/dL (75-99)
--- NOTE | 2017-04-27 21:14 | P.PN ---
Subjective Progress Note Date: 04/27/17 Principal diagnosis: Sepsis 66-year-old female known to the infectious disease service presents from her extended care facility where she is developed fever over the last 72 hours it was not improving with local treatments. Because of her ongoing fever she was referred to hospital for further intervention. She's been noticed to have fever at the facility of greater than 101. Despite antibiotic therapy and antipruritic she was remaining febrile. Suspect sent to the hospital. Upon arrival she was not hypotensive but it evidence of significant illness. With evidence of positive blood cultures the infectious diseases consultation was requested. The patient is in no history of the fall out of her wheelchair in April 2016. Causing the extensive contusions especially the left lower extremity with the extensive trauma in full-thickness skin loss is very slow to heal. She relates that she's feeling distally better this afternoon. She's not having chills or rigors with her fever. She was hospitalized 02/21/2017 at which point in time she had respiratory failure. She had pneumonia and acute renal failure. She had IV access placed with a Nance line catheter to the right anterior chest wall. She does have poor IV access. With evidence of her gram-positive sepsis, the intervenous access was removed and now has peripheral IVs. She remains weak and remains in need of significant assistance Objective - Vital Signs Vital signs: Vital Signs Temp 97 F L 04/27/17 16:00 Pulse 79 04/27/17 16:00 Resp 18 04/27/17 16:00 BP 117/70 04/27/17 16:00 Pulse Ox 96 04/27/17 16:00 Intake & Output 04/27/17 04/27/17 04/28/17 06:59 18:59 06:59 Intake Total 140 Balance 140 Weight 86.5 kg Intake: Intake, IV Titration 140 Amount Sodium Chloride 0.9% 1, 140 000 ml @ 75 mls/hr IV . [id number] [facility] Rx#:[id number] Oral 0 Other: Voiding Method Diaper Diaper # Voids 2 1 - Exam 66-year-old woman who suffers from obesity and general debility appears to be acutely ill. She is weak but is able to communicate. HEENT: Anicteric conjunctiva are pink but dry nasal mucosa grossly intact without significant lesions, there is no thrush. Neck: The neck is supple without significant lymphadenopathy or thyromegaly. The prior site of the IV catheter is without expressible purulence or erythema. It is not tender. Lungs: Good bilateral air entry without significant crackles or wheezing. There is no significant bronchial sounds. There is no egophony or dullness. Heart: Regular rate and rhythm with an audible S1-S2, no S3 no S4. There is no significant murmur click or rub, PMI was nondisplaced. Abdomen: Obese, Positive bowel sounds soft and nontender without palpable masses or organomegaly. There was no guarding or rebound. Extremities: The upper extremities have excellent pulses they are symmetric, no significant petechiae or telangiectasia. No splinter hemorrhages were noted. Lower extremities have the chronic edema. The left pretibial surface continues to have evidence of some of the ulceration has been slow to heal in this region from her trauma. There is only a scant amount of drainage at this time. He remains tender. Neuro: Arouable and sleepy She has profound generalized weakness and apparently is not able to ambulate. - Labs CBC & Chem 7: 04/27/17 05:25 04/27/17 05:25 Labs: Abnormal Lab Results - Last 24 Hours (Table) 04/27/17 04/27/17 04/27/17 Range/Units 05:25 05:25 05:53 RBC 2.42 L (3.80-5.40) m/uL Hgb 7.6 L (11.4-16.0) gm/dL Hct 25.5 L (34.0-46.0) % MCV 105.2 H (80.0-100.0) fL MCHC 29.9 L (31.0-37.0) g/dL RDW 17.0 H (11.5-15.5) % Chloride 113 H (98-107) mmol/L Carbon Dioxide 17 L (22-30) mmol/L Glucose 131 H (74-99) mg/dL POC Glucose (mg/dL) 154 H (75-99) mg/dL 04/27/17 04/27/17 04/27/17 Range/Units : 16:25 20:44 RBC (3.80-5.40) m/uL Hgb (11.4-16.0) gm/dL Hct (34.0-46.0) % MCV (80.0-100.0) fL MCHC (31.0-37.0) g/dL RDW (11.5-15.5) % Chloride (98-107) mmol/L Carbon Dioxide (22-30) mmol/L Glucose (74-99) mg/dL POC Glucose (mg/dL) 142 H 146 H 160 H (75-99) mg/dL Microbiology - Last 24 Hours (Table) 04/25/17 15:47 Blood Culture - Preliminary Blood No Growth after 48 hours 04/25/17 15:35 Blood Culture - Preliminary Blood No Growth after 48 hours Laboratory Results WBC 8.1 k/uL (3.8-10.6) 04/27/17 05:25 RBC 2.42 m/uL (3.80-5.40) L 04/27/17 05:25 Hgb 7.6 gm/dL (11.4-16.0) L 04/27/17 05:25 Hct 25.5 % (34.0-46.0) L 04/27/17 05:25 MCV 105.2 fL (80.0-100.0) H 04/27/17 05:25 MCH 31.4 pg (25.0-35.0) 04/27/17 05:25 MCHC 29.9 g/dL (31.0-37.0) L 04/27/17 05:25 RDW 17.0 % (11.5-15.5) H 04/27/17 05:25 Plt Count 360 k/uL (150-450) 04/27/17 05:25 Neutrophils % 63 % 04/27/17 05:25 Neutrophils % (Manual) 62 % 04/26/17 05:24 Lymphocytes % 23 % 04/27/17 05:25 Lymphocytes % (Manual) 29 % 04/26/17 05:24 Monocytes % 6 % 04/27/17 05:25 Monocytes % (Manual) 9 % 04/26/17 05:24 Eosinophils % 4 % 04/27/17 05:25 Basophils % 1 % 04/27/17 05:25 Neutrophils # 5.1 k/uL (1.3-7.7) 04/27/17 05:25 Neutrophils # (Manual) 4.34 k/uL (1.3-7.7) 04/26/17 05:24 Lymphocytes # 1.9 k/uL (1.0-4.8) 04/27/17 05:25 Lymphocytes # (Manual) 2.03 k/uL (1.0-4.8) 04/26/17 05:24 Monocytes # 0.5 k/uL (0-1.0) 04/27/17 05:25 Monocytes # (Manual) 0.63 k/uL (0-1.0) 04/26/17 05:24 Eosinophils # 0.3 k/uL (0-0.7) 04/27/17 05:25 Basophils # 0.1 k/uL (0-0.2) 04/27/17 05:25 Nucleated RBCs 0 /100 WBC (0-0) 04/26/17 05:24 Manual Slide Review Performed 04/26/17 05:24 Polychromasia Present 04/20/17 17:46 Hypochromasia Marked 04/27/17 05:25 Poikilocytosis (manual Present 04/24/17 08:22 Anisocytosis Slight 04/27/17 05:25 Macrocytosis Moderate 04/27/17 05:25 PT 11.1 sec (9.0-12.0) 04/20/17 17:46 INR 1.1 (<1.2) 04/20/17 17:46 APTT 18.5 sec (22.0-30.0) L 04/20/17 17:46 Sodium 142 mmol/L (137-145) 04/27/17 05:25 Potassium 4.2 mmol/L (3.5-5.1) 04/27/17 05:25 Chloride 113 mmol/L (98-107) H 04/27/17 05:25 Carbon Dioxide 17 mmol/L (22-30) L 04/27/17 05:25 Anion Gap 12 mmol/L 04/27/17 05:25 BUN 16 mg/dL (7-17) 04/27/17 05:25 Creatinine 0.83 mg/dL (0.52-1.04) 04/27/17 05:25 Est GFR (MDRD) Af Amer >60 (>60 ml/min/1.73 sqM) 04/27/17 05:25 Est GFR (MDRD) Non-Af >60 (>60 ml/min/1.73 sqM) 04/27/17 05:25 Glucose 131 mg/dL (74-99) H 04/27/17 05:25 POC Glucose (mg/dL) 160 mg/dL (75-99) H 04/27/17 20:44 POC Glu [employer] ID Elizabeth Kim 04/27/17 20:[address] Glu mg/dL 114 mg/dL 04/20/17 17:46 Hemoglobin A1c 5.6 % (4.2-6.1) 04/20/17 17:46 Lactic Ac Sepsis Rflx Y 04/20/17 18:29 Plasma Lactic Acid Maximus 1.3 mmol/L (0.7-2.0) 04/20/17 22:10 Calcium 8.4 mg/dL (8.4-10.2) 04/27/17 05:25 Total Bilirubin 0.2 mg/dL (0.2-1.3) 04/26/17 05:24 AST 33 U/L (14-36) 04/26/17 05:24 ALT 42 U/L (9-52) 04/26/17 05:24 Alkaline Phosphatase 185 U/L (38-126) H 04/26/17 05:24 Total Protein 5.7 g/dL (6.3-8.2) L 04/26/17 05:24 Albumin 2.2 g/dL (3.5-5.0) L 04/26/17 05:24 Urine Color Yellow 04/20/17 19:22 Urine Appearance Cloudy (Clear) H 04/20/17 19:22 Urine pH 5.0 (5.0-8.0) 04/20/17 19:22 Ur Specific [place] 1.011 (1.001-1.035) 04/20/17 19:22 Urine Protein Trace (Negative) H 04/20/17 19:22 Urine Glucose (UA) Negative (Negative) 04/20/17 19:22 Urine Ketones Negative (Negative) 04/20/17 19:22 Urine Blood Small (Negative) H 04/20/17 19:22 Urine Nitrite Negative (Negative) 04/20/17 19:22 Urine Bilirubin Negative (Negative) 04/20/17 19:22 Urine Urobilinogen <2.0 mg/dL (<2.0) 09/27/17 19:22 Ur Leukocyte Esterase Moderate (Negative) H 04/20/17 19:22 Urine RBC 3 /hpf (0-5) 04/20/17 19:22 Urine WBC 10 /hpf (0-5) H 04/20/17 19:22 Ur Squamous Epith Cells 1 /hpf (0-4) 04/20/17 19:22 Amorphous Sediment Rare /hpf (None) H 04/20/17 19:22 Urine Mucus Rare /hpf (None) H 04/20/17 19:22 Vancomycin Trough 22.7 ug/mL 04/24/17 08:22 Microbiology 04/25/17 15:47 Blood Blood Culture - Preliminary No Growth after 48 hours 04/25/17 15:35 Blood Blood Culture - Preliminary No Growth after 48 hours 04/20/17 21:38 Blood Blood Culture Gram Stain - Final 04/20/17 21:38 Blood Blood Culture - Final Methicillin resist S. aureus 04/20/17 19:22 Urine,Catheterized Urine Culture - Final 04/20/17 21:38 Blood Blood Culture - Final Assessment and Plan (1) Fever Narrative/Plan: 66-year-old woman presents to [facility] with ongoing fever that they are aware having great difficulties trying to reduce. Upon arrival to Hospital there is evidence of sepsis. Is evidence of positive blood culture with gram-positive cocci. The patient was hospitalized this summer at which time she had developed respiratory failure and required intubation sedation and mechanical ventilation. IV access was placed. Apparently this has remained in place while she's been at the [facility] care facility. This appears to be the likely portal of infection at this time. We'll work with the primary team to see if this cannot be removed and have some type of temporary access placed. She will need negative blood cultures before a more permanent type of IV access can be placed such as a PICC line. For antimicrobial therapy vancomycin is being utilized. There is no need for gram-negative coverage at this time given the current positive blood cultures. Continuing ongoing local wound care to the left leg in the treatment will be with the opticell silver which can be changed every other day. Repeat blood cultures are in progress and negative so far The chronic anemia has improved. Acute renal failure has improved. At this time the infected catheter has been removed. Follow-up blood cultures are in process. In are negative at 48 hours With the negative blood cultures a PICC line may be placed so that she may complete her next 2 weeks of intravenous antibiotic therapy for her MRSA bacteremia. Status: Acute (2) Bacteremia associated with IV line Status: Acute (3) Dehydration Status: Acute
[2017-04-27] MEDS: ASPIRIN 81 MG PO SCH (22:23)
[2017-04-27] MEDS: ATORVASTATIN 40 MG TAB PO SCH (22:23)
[2017-04-27] MEDS: CHOLECALCIFEROL 1,000 UNIT TAB PO SCH (22:23)
[2017-04-27] MEDS: FERROUS SULFATE 325 MG TAB PO SCH (22:23)
[2017-04-27] MEDS: POTASSIUM CHLORIDE ER 20 MEQ TAB.ER PO SCH (22:24)
[2017-04-27] MEDS: LACTOBACILLUS ACIDOPH & BULGAR 1 EACH PACKET PO SCH (22:24)
[2017-04-27] MEDS: SENNOSIDES-DOCUSATE SODIUM 1 EACH TAB PO SCH (22:24)
[2017-04-28] MEDS: SODIUM CHLORIDE 0.9% 1,000 ML IV SCH ×2 (03:21→14:34)
[2017-04-28 07:54] LABS: Glucose,Whole Blood 150 mg/dL (75-99)
--- NOTE | 2017-04-28 08:07 | P.PN ---
Subjective Progress Note Date: 04/28/17 Principal diagnosis: Sepsis related to catheter. This is a 66-year-old white female with known history of chronic left lower 70 DVT was admitted for gram-positive sepsis related to Nance catheter. The patient Feels much better. She has difficulty with mobility secondary to her left lower extremity. No voiding difficulties otherwise stated. No fever spikes are noted. Objective - Vital Signs Vital signs: Vital Signs Temp 100.1 F H 04/27/17 23:32 Pulse 82 04/27/17 23:32 Resp 18 04/27/17 23:32 BP 153/69 04/27/17 23:32 Pulse Ox 97 04/27/17 23:32 Intake & Output 04/27/17 04/28/17 04/28/17 18:59 06:59 18:59 Weight 84.5 kg Other: Voiding Method Diaper Diaper # Voids 1 1 - Constitutional General appearance: Present: obese - EENT Eyes: Absent: abnormal pupil - Respiratory Respiratory: bilateral: CTA - Cardiovascular Rhythm: irregularly irregular Heart sounds: normal: S1, S2 - Gastrointestinal General gastrointestinal: Present: soft. Absent: tenderness - Neurologic Neurologic: Present: CNII-XII intact - Musculoskeletal Musculoskeletal: Present: generalized weakness - Labs CBC & Chem 7: 04/27/17 05:25 04/27/17 05:25 Labs: Abnormal Lab Results - Last 24 Hours (Table) 04/27/17 04/27/17 04/27/17 Range/Units 05:25 11:17 16:25 RBC 2.42 L (3.80-5.40) m/uL Hgb 7.6 L (11.4-16.0) gm/dL Hct 25.5 L (34.0-46.0) % MCV 105.2 H (80.0-100.0) fL MCHC 29.9 L (31.0-37.0) g/dL RDW 17.0 H (11.5-15.5) % POC Glucose (mg/dL) 142 H 146 H (75-99) mg/dL 04/27/17 04/28/17 Range/Units 20:44 07:49 RBC (3.80-5.40) m/uL Hgb (11.4-16.0) gm/dL Hct (34.0-46.0) % MCV (80.0-100.0) fL MCHC (31.0-37.0) g/dL RDW (11.5-15.5) % POC Glucose (mg/dL) 160 H 150 H (75-99) mg/dL Microbiology - Last 24 Hours (Table) 04/25/17 15:47 Blood Culture - Preliminary Blood No Growth after 48 hours 04/25/17 15:35 Blood Culture - Preliminary Blood No Growth after 48 hours Assessment and Plan (1) Fever Status: Acute (2) Pneumonia Status: Acute (3) Sepsis Status: Acute (4) At risk for readmission to hospital Status: Acute (5) Atrial fibrillation with rapid ventricular response Status: Acute (6) CKD (chronic kidney disease), stage III Status: Acute (7) Chronic deep vein thrombosis (DVT) of left popliteal vein Status: Acute (8) Pneumonia Status: Acute (9) Bacteremia associated with IV line Status: Acute Plan: Consult for PICC line today. Continue vancomycin for another several weeks once this is done. Anticipate discharge in a.m.
[2017-04-28] MEDS: INSULIN LISPRO (humaLOG) 300 UNIT/3 ML VIAL SQ SCH ×4 (08:15→20:37)
[2017-04-28] MEDS: HEPARIN SODIUM,PORCINE 5,000 UNIT/ML 1 ML VIAL SQ SCH ×2 (08:15→20:37)
[2017-04-28] MEDS: POLYETHYLENE GLYCOL 3350 17 GM POWD.PACK PO SCH (08:22)
[2017-04-28] MEDS: FUROSEMIDE 40 MG TAB PO SCH (08:22)
[2017-04-28] MEDS: ALLOPURINOL 100 MG TAB PO SCH ×2 (08:23→20:37)
[2017-04-28] MEDS: ESCITALOPRAM 10 MG TAB PO SCH (08:23)
[2017-04-28] MEDS: METHYL SALICYLATE/MENTHOL CREAM 5 OZ TOPICAL SCH ×3 (08:23→20:56)
[2017-04-28] MEDS: PANTOPRAZOLE 40 MG TABLET PO SCH (08:23)
[2017-04-28] MEDS: MENTHOL-ZINC OXIDE OINT 113 GM TUBE TOPICAL SCH ×3 (08:23→20:38)
[2017-04-28] MEDS: oxyCODONE-APAP 7.5-325MG 1 EACH TAB PO PRN ×2 (08:25→18:54)
[2017-04-28 09:10] VITALS: BMI 34.0
[2017-04-28 09:52] LABS: Anisocytosis Slight; Basophils % (A) 1 %; CH 31.6; CHCM 30.8; Eosinophils # (A) 0.2 k/uL (0-0.7); Eosinophils % (A) 3 %; HCT 24.7 % (34.0-46.0); HDW 3.27; HGB 7.3 gm/dL (11.4-16.0); Hypochromasia Moderate; Luc # (Auto) 0.13; Luc % (Auto) 2; Lymphocytes # (A) 1.6 k/uL (1.0-4.8); Lymphocytes % (A) 24 %; MCH 30.5 pg (25.0-35.0); MCHC 29.5 g/dL (31.0-37.0); MCV 103.4 fL (80.0-100.0); Macrocytosis Moderate; Mean Platelet Volume 7.5; Monocytes # (A) 0.3 k/uL (0-1.0); Monocytes % (A) 5 %; Neutrophils # (A) 4.5 k/uL (1.3-7.7); Neutrophils % (A) 66 %; RBC 2.38 m/uL (3.80-5.40); RDW 18.2 % (11.5-15.5); WBC 6.7 k/uL (3.8-10.6); WBC (Perox) 6.91
[2017-04-28] MEDS ORDERED: VANCOMYCIN TROUGH DUE 1 EACH MISC MISCELLANE ONE (10:00)
[2017-04-28 10:12] LABS: Anion Gap 9 mmol/L; Blood Urea Nitrogen 14 mg/dL (7-17); Calcium 8.3 mg/dL (8.4-10.2); Carbon Dioxide 21 mmol/L (22-30); Chloride 111 mmol/L (98-107); Glucose 145 mg/dL (74-99); Non-African American GFR(MDRD) >60 (>60 ml/min/1.73 sqM); Potassium 4.2 mmol/L (3.5-5.1); Sodium 141 mmol/L (137-145)
[2017-04-28] MEDS: VANCOMYCIN 1,500 MG in SODIUM CHLORIDE 0.9% 250 ML IVPB SCH (10:33)
[2017-04-28] MEDS ORDERED: LIDOCAINE 2% INJ 20 MG/ML SQ ONE (10:39)
[2017-04-28] MEDS: VANCOMYCIN 1,250 MG in SODIUM CHLORIDE 0.9% 250 ML IVPB SCH (11:44)
[2017-04-28] MEDS: MULTIVITAMINS, THERA 1 EACH TAB PO SCH (11:44)
[2017-04-28 12:01] LABS: Glucose,Whole Blood 148 mg/dL (75-99)
--- NOTE | 2017-04-28 12:08 | IR ---
EXAMINATION TYPE: IR cvc insert >=5 years DATE OF EXAM: 04/28/2017 COMPARISON: NONE CLINICAL HISTORY: Infection Needs long-term intravenous access for antibiotics. PROCEDURE: After informed consent, the skin overlying the left basilic vein was localized with ultrasound and no jacinda to be compressible and patent. An ultrasound image was obtained and submitted on the patient's c stone. The overlying skin was prepped and draped and Lidocaine was used for local anesthesia. A skin sid was made with a scalpel. Access was gained to the vein under ultrasound guidance with a 21 gau ge needle and a 0.018 inch wire was advanced. Access site was dilated with Peel-Away sheath and cath eter tailored to the appropriate length and advanced such that the distal tip is at the cavoatrial ju nction. Spot image was obtained verifying placement. Catheter was fixed to the skin with suture and a sterile dressing was placed following hemostasis. Catheter was aspirated and flushed with saline. Patient was discharged in stable condition without complication. Maximal barrier technique is utili zed. Ultrasound image is documented on the chart. Ultrasound used with sterile technique. Fluoro time and fluoroscopic images submitted to document procedure: 46 intraoperative C-arm images, 0.8 minutes fluoroscopy time IMPRESSION: STATUS POST ULTRASOUND AND FLUOROSCOPIC GUIDED PICC LINE PLACEMENT, READY FOR USE. THIS PROCEDURE WAS PERFORMED BY THE UNDERSIGNED.
[2017-04-28 17:23] LABS: Glucose,Whole Blood 136 mg/dL (75-99)
[2017-04-28] MEDS: ATORVASTATIN 40 MG TAB PO SCH (20:37)
[2017-04-28] MEDS: POTASSIUM CHLORIDE ER 20 MEQ TAB.ER PO SCH (20:37)
[2017-04-28] MEDS: CHOLECALCIFEROL 1,000 UNIT TAB PO SCH (20:37)
[2017-04-28] MEDS: FERROUS SULFATE 325 MG TAB PO SCH (20:37)
[2017-04-28] MEDS: LACTOBACILLUS ACIDOPH & BULGAR 1 EACH PACKET PO SCH (20:37)
[2017-04-28] MEDS: ASPIRIN 81 MG PO SCH (20:37)
[2017-04-28] MEDS: SENNOSIDES-DOCUSATE SODIUM 1 EACH TAB PO SCH (20:37)
[2017-04-28 20:46] LABS: Glucose,Whole Blood 164 mg/dL (75-99)
--- NOTE | 2017-04-28 21:22 | P.PN ---
Subjective Progress Note Date: 04/28/17 Principal diagnosis: Sepsis 66-year-old female known to the infectious disease service presents from her extended care facility where she is developed fever over the last 72 hours it was not improving with local treatments. Because of her ongoing fever she was referred to hospital for further intervention. She's been noticed to have fever at the facility of greater than 101. Despite antibiotic therapy and antipruritic she was remaining febrile. Suspect sent to the hospital. Upon arrival she was not hypotensive but it evidence of significant illness. With evidence of positive blood cultures the infectious diseases consultation was requested. The patient is in no history of the fall out of her wheelchair in April 2016. Causing the extensive contusions especially the left lower extremity with the extensive trauma in full-thickness skin loss is very slow to heal. She relates that she's feeling distally better this afternoon. She's not having chills or rigors with her fever. She was hospitalized 02/21/2017 at which point in time she had respiratory failure. She had pneumonia and acute renal failure. She had IV access placed with a Nance line catheter to the right anterior chest wall. She does have poor IV access. With evidence of her gram-positive sepsis, the intervenous access was removed and was treated with peripheral IVs. She remains weak and remains in need of significant assistance With evidence of clearance of her bacteremia PICC line for today. Objective - Vital Signs Vital signs: Vital Signs Temp 97.7 F 04/28/17 14:36 Pulse 81 04/28/17 14:36 Resp 18 04/28/17 14:36 BP 134/64 04/28/17 14:36 Pulse Ox 95 04/28/17 16:15 Intake & Output 04/28/17 04/28/17 04/29/17 06:59 18:59 06:59 Weight 84.5 kg 84.5 kg Other: Voiding Method Diaper # Voids 1 3 # Bowel Movements 2 - Exam 66-year-old woman who suffers from obesity and general debility appears to be acutely ill. She is weak but is able to communicate. HEENT: Anicteric conjunctiva are pink but dry nasal mucosa grossly intact without significant lesions, there is no thrush. Neck: The neck is supple without significant lymphadenopathy or thyromegaly. The prior site of the IV catheter is without expressible purulence or erythema. It is not tender. Lungs: Good bilateral air entry without significant crackles or wheezing. There is no significant bronchial sounds. There is no egophony or dullness. Heart: Regular rate and rhythm with an audible S1-S2, no S3 no S4. There is no significant murmur click or rub, PMI was nondisplaced. Abdomen: Obese, Positive bowel sounds soft and nontender without palpable masses or organomegaly. There was no guarding or rebound. Extremities: The upper extremities have excellent pulses they are symmetric, no significant petechiae or telangiectasia. No splinter hemorrhages were noted. Lower extremities have the chronic edema. The left pretibial surface continues to have evidence of some of the ulceration has been slow to heal in this region from her trauma. There is only a scant amount of drainage at this time. He remains tender. Neuro: Arouable and sleepy She has profound generalized weakness and apparently is not able to ambulate. - Labs CBC & Chem 7: 04/28/17 09:35 04/28/17 09:35 Labs: Abnormal Lab Results - Last 24 Hours (Table) 04/28/17 04/28/17 04/28/17 Range/Units 07:49 09:35 09:35 RBC 2.38 L (3.80-5.40) m/uL Hgb 7.3 L (11.4-16.0) gm/dL Hct 24.7 L (34.0-46.0) % MCV 103.4 H (80.0-100.0) fL MCHC 29.5 L (31.0-37.0) g/dL RDW 18.2 H (11.5-15.5) % Chloride 111 H (98-107) mmol/L Carbon Dioxide 21 L (22-30) mmol/L Glucose 145 H (74-99) mg/dL POC Glucose (mg/dL) 150 H (75-99) mg/dL Calcium 8.3 L (8.4-10.2) mg/dL 04/28/17 04/28/17 04/28/17 Range/Units 11:57 17:16 20:34 RBC (3.80-5.40) m/uL Hgb (11.4-16.0) gm/dL Hct (34.0-46.0) % MCV (80.0-100.0) fL MCHC (31.0-37.0) g/dL RDW (11.5-15.5) % Chloride (98-107) mmol/L Carbon Dioxide (22-30) mmol/L Glucose (74-99) mg/dL POC Glucose (mg/dL) 148 H 136 H 164 H (75-99) mg/dL Calcium (8.4-10.2) mg/dL Microbiology - Last 24 Hours (Table) 04/25/17 15:47 Blood Culture - Preliminary Blood No Growth after 72 hours 04/25/17 15:35 Blood Culture - Preliminary Blood No Growth after 72 hours Laboratory Results WBC 6.7 k/uL (3.8-10.6) 04/28/17 09:35 RBC 2.38 m/uL (3.80-5.40) L 04/28/17 09:35 Hgb 7.3 gm/dL (11.4-16.0) L 04/28/17 09:35 Hct 24.7 % (34.0-46.0) L 04/28/17 09:35 MCV 103.4 fL (80.0-100.0) H 04/28/17 09:35 MCH 30.5 pg (25.0-35.0) 04/28/17 09:35 MCHC 29.5 g/dL (31.0-37.0) L 04/28/17 09:35 RDW 18.2 % (11.5-15.5) H 04/28/17 09:35 Plt Count 382 k/uL (150-450) 04/28/17 09:35 Neutrophils % 66 % 04/28/17 09:35 Neutrophils % (Manual) 62 % 04/26/17 05:24 Lymphocytes % 24 % 04/28/17 09:35 Lymphocytes % (Manual) 29 % 04/26/17 05:24 Monocytes % 5 % 04/28/17 09:35 Monocytes % (Manual) 9 % 04/26/17 05:24 Eosinophils % 3 % 04/28/17 09:35 Basophils % 1 % 04/28/17 09:35 Neutrophils # 4.5 k/uL (1.3-7.7) 04/28/17 09:35 Neutrophils # (Manual) 4.34 k/uL (1.3-7.7) 04/26/17 05:24 Lymphocytes # 1.6 k/uL (1.0-4.8) 04/28/17 09:35 Lymphocytes # (Manual) 2.03 k/uL (1.0-4.8) 04/26/17 05:24 Monocytes # 0.3 k/uL (0-1.0) 04/28/17 09:35 Monocytes # (Manual) 0.63 k/uL (0-1.0) 04/26/17 05:24 Eosinophils # 0.2 k/uL (0-0.7) 04/28/17 09:35 Basophils # 0.0 k/uL (0-0.2) 04/28/17 09:35 Nucleated RBCs 0 /100 WBC (0-0) 04/26/17 05:24 Manual Slide Review Performed 04/26/17 05:24 Polychromasia Present 04/20/17 17:46 Hypochromasia Moderate 04/28/17 09:35 Poikilocytosis (manual Present 04/24/17 08:22 Anisocytosis Slight 04/28/17 09:35 Macrocytosis Moderate 04/28/17 09:35 PT 11.1 sec (9.0-12.0) 04/20/17 17:46 INR 1.1 (<1.2) 04/20/17 17:46 APTT 18.5 sec (22.0-30.0) L 04/20/17 17:46 Sodium 141 mmol/L (137-145) 04/28/17 09:35 Potassium 4.2 mmol/L (3.5-5.1) 04/28/17 09:35 Chloride 111 mmol/L (98-107) H 04/28/17 09:35 Carbon Dioxide 21 mmol/L (22-30) L 04/28/17 09:35 Anion Gap 9 mmol/L 04/28/17 09:35 BUN 14 mg/dL (7-17) 04/28/17 09:35 Creatinine 0.88 mg/dL (0.52-1.04) 04/28/17 09:35 Est GFR (MDRD) Af Amer >60 (>60 ml/min/1.73 sqM) 04/28/17 09:35 Est GFR (MDRD) Non-Af >60 (>60 ml/min/1.73 sqM) 04/28/17 09:35 Glucose 145 mg/dL (74-99) H 04/28/17 09:35 POC Glucose (mg/dL) 164 mg/dL (75-99) H 04/28/17 20:34 POC Glu Dining Chair Seat Cushion Trimmer ID Tracy Silvestre 04/28/17 20:[address] Glu mg/dL 114 mg/dL 04/20/17 17:46 Hemoglobin A1c 5.6 % (4.2-6.1) 04/20/17 17:46 Lactic Ac Sepsis Rflx Y 04/20/17 18:29 Plasma Lactic Acid Maximus 1.3 mmol/L (0.7-2.0) 04/20/17 22:10 Calcium 8.3 mg/dL (8.4-10.2) L 04/28/17 09:35 Total Bilirubin 0.2 mg/dL (0.2-1.3) 04/26/17 05:24 AST 33 U/L (14-36) 04/26/17 05:24 ALT 42 U/L (9-52) 04/26/17 05:24 Alkaline Phosphatase 185 U/L (38-126) H 04/26/17 05:24 Total Protein 5.7 g/dL (6.3-8.2) L 04/26/17 05:24 Albumin 2.2 g/dL (3.5-5.0) L 04/26/17 05:24 Urine Color Yellow 04/20/17 19:22 Urine Appearance Cloudy (Clear) H 04/20/17 19:22 Urine pH 5.0 (5.0-8.0) 04/20/17 19:22 Ur Specific [place] 1.011 (1.001-1.035) 04/20/17 19:22 Urine Protein Trace (Negative) H 04/20/17 19:22 Urine Glucose (UA) Negative (Negative) 04/20/17 19:22 Urine Ketones Negative (Negative) 04/20/17 19:22 Urine Blood Small (Negative) H 04/20/17 19:22 Urine Nitrite Negative (Negative) 04/20/17 19:22 Urine Bilirubin Negative (Negative) 04/20/17 19:22 Urine Urobilinogen <2.0 mg/dL (<2.0) 04/20/17 19:22 Ur Leukocyte Esterase Moderate (Negative) H 04/20/17 19:22 Urine RBC 3 /hpf (0-5) 04/20/17 19:22 Urine WBC 10 /hpf (0-5) H 04/20/17 19:22 Ur Squamous Epith Cells 1 /hpf (0-4) 04/20/17 19:22 Amorphous Sediment Rare /hpf (None) H 04/20/17 19:22 Urine Mucus Rare /hpf (None) H 04/20/17 19:22 Vancomycin Trough 23.9 ug/mL 04/28/17 09:35 Microbiology 04/25/17 15:47 Blood Blood Culture - Preliminary No Growth after 72 hours 04/25/17 15:35 Blood Blood Culture - Preliminary No Growth after 72 hours 04/20/17 21:38 Blood Blood Culture Gram Stain - Final 04/20/17 21:38 Blood Blood Culture - Final Methicillin resist S. aureus 04/20/17 19:22 Urine,Catheterized Urine Culture - Final 04/20/17 21:38 Blood Blood Culture - Final Assessment and Plan (1) Fever Narrative/Plan: 66-year-old woman presents to [facility] with ongoing fever that they are aware having great difficulties trying to reduce. Upon arrival to Hospital there is evidence of sepsis. Is evidence of positive blood culture with gram-positive cocci. The patient was hospitalized this summer at which time she had developed respiratory failure and required intubation sedation and mechanical ventilation. IV access was placed. Apparently this has remained in place while she's been at the [facility] care facility. This appears to be the likely portal of infection at this time. We'll work with the primary team to see if this cannot be removed and have some type of temporary access placed. She will need negative blood cultures before a more permanent type of IV access can be placed such as a PICC line. For antimicrobial therapy vancomycin is being utilized. There is no need for gram-negative coverage at this time given the current positive blood cultures. Continuing ongoing local wound care to the left leg in the treatment will be with the opticell silver which can be changed every other day. Repeat blood cultures are in progress and negative so far The chronic anemia has improved. Acute renal failure has improved. At this time the infected catheter has been removed. Follow-up blood cultures are in process. In are negative at 48 hours With the negative blood cultures a PICC line may be placed so that she may complete her next 2 weeks of intravenous antibiotic therapy for her MRSA bacteremia. Status: Acute (2) Bacteremia associated with IV line Status: Acute (3) Dehydration Status: Acute
[2017-04-29 01:04] VITALS: RESP 16
[2017-04-29] MEDS: oxyCODONE-APAP 7.5-325MG 1 EACH TAB PO PRN ×2 (01:25→09:09)
[2017-04-29] MEDS: SODIUM CHLORIDE 0.9% 1,000 ML IV SCH (06:20)
[2017-04-29 07:26] LABS: Glucose,Whole Blood 135 mg/dL (75-99)
[2017-04-29 07:36] VITALS: BP 133/72; PULSE 73; TEMP 98.7
[2017-04-29] MEDS: METHYL SALICYLATE/MENTHOL CREAM 5 OZ TOPICAL SCH (08:14)
[2017-04-29] MEDS: MENTHOL-ZINC OXIDE OINT 113 GM TUBE TOPICAL SCH (08:14)
[2017-04-29] MEDS: HEPARIN SODIUM,PORCINE 5,000 UNIT/ML 1 ML VIAL SQ SCH (08:16)
[2017-04-29] MEDS: FUROSEMIDE 40 MG TAB PO SCH (08:16)
[2017-04-29] MEDS: ESCITALOPRAM 10 MG TAB PO SCH (08:16)
[2017-04-29] MEDS: ALLOPURINOL 100 MG TAB PO SCH (08:16)
[2017-04-29] MEDS: INSULIN LISPRO (humaLOG) 300 UNIT/3 ML VIAL SQ SCH ×2 (08:16→12:29)
[2017-04-29] MEDS: POLYETHYLENE GLYCOL 3350 17 GM POWD.PACK PO SCH (08:16)
[2017-04-29] MEDS: PANTOPRAZOLE 40 MG TABLET PO SCH (08:16)
--- NOTE | 2017-04-29 10:45 | P.DS ---
Providers Date of admission: 04/20/17 19:59 Attending physician: Willis uGrrola Consults: 04/21/17 07:50 Consult Physician Routine Consulting Provider: Clayton Bhatia Reason/Comments: Sepsis/pneumonia Do you want consulting provider notified?: Yes Primary care physician: Carlo Frederick - Discharge Diagnosis(es) (1) Fever Current Visit: Yes Status: Acute (2) Pneumonia Current Visit: Yes Status: Acute (3) Sepsis Current Visit: Yes Status: Acute (4) At risk for readmission to hospital Current Visit: No Status: Acute (5) Atrial fibrillation with rapid ventricular response Current Visit: No Status: Acute (6) CKD (chronic kidney disease), stage III Current Visit: No Status: Acute (7) Chronic deep vein thrombosis (DVT) of left popliteal vein Current Visit: No Status: Acute (8) Pneumonia Current Visit: No Status: Acute (9) Bacteremia associated with IV line Current Visit: Yes Status: Acute Hospital Course: This is a discharge summary a 66-year-old white female essentially admitted for pneumonia found to have methicillin resistant staphylococcal aureus related to indwelling catheter. The catheter was removed and a PICC line was then placed once her blood cultures were negative. Vancomycin is to be continued for approximately 2 weeks for infectious disease and pulmonology were obviously consulted. The patient is discharge in stable condition with nominal blood sugars and history of chronic pain. The patient is to follow-up with appropriate outpatient physician at the [facility]. She does have a daughter does live near [place] but cannot take care of her at this time. Patient Condition at Discharge: Critical Plan - Discharge Summary New Discharge Prescriptions: New oxyCODONE-APAP 7.5-325MG [Percocet 7.5-325 mg] 1 each PO Q6HR PRN #120 tab PRN Reason: Pain Vancomycin 1,250 mg IVPB Q24H #14 vial ALPRAZolam [Xanax] 0.25 mg PO BID PRN #60 tab PRN Reason: Anxiety Continue Atorvastatin [Lipitor] 40 mg PO HS Allopurinol [Zyloprim] 100 mg PO BID Cholecalciferol [Vitamin D3] 1,000 unit PO HS Ferrous Sulfate [Iron (65 MG Elemental)] 650 mg PO HS Magnesium Hydroxide [Milk of Magnesia] 2,400 mg PO DAILY PRN PRN Reason: Constipation Polyethylene Glycol 3350 [Miralax] 17 gm PO DAILY Acetaminophen [Tylenol] 650 mg PO Q4H PRN PRN Reason: Fever And/Or Mild Pain Bisacodyl [Dulcolax] 10 mg PO DAILY PRN PRN Reason: Constipation Cranberry Fruit Concentrate [Cranberry] 900 mg PO HS L.acidoph,Paracasei, B.lactis [Probiotic] 2 cap PO HS Multivitamins, Thera [Multivitamin (formulary)] 1 tab PO DAILY Sennosides-Docusate Sodium [Senokot-S] 1 tab PO HS Na Phos,M-B/Na Phos,Di-Ba [Fleet Adult] 133 ml RECTAL DAILY PRN PRN Reason: Constipation Furosemide [Lasix] 40 mg PO DAILY #1 tablet Potassium Chloride ER [K-Dur 20] 20 meq PO HS Melatonin 3 mg PO HS Menthol [Biofreeze] 1 applic TOPICAL TID Menthol/Zinc Oxide [Calmoseptine Ointment] 1 applic TOPICAL TID Omeprazole 20 mg PO DAILY ALPRAZolam [Xanax] 0.25 mg PO BID PRN PRN Reason: Anxiety Escitalopram [Lexapro] 10 mg PO DAILY Aspirin 81 mg PO HS INSULIN LISPRO (HumaLOG) [humaLOG] See Protocol SQ ACHS Ipratropium-Albuterol Nebulize [Duoneb 0.5 mg-3 mg/3 ml Soln] 3 ml INHALATION RT-QID PRN PRN Reason: Shortness Of Breath Discharge Medication List Atorvastatin [Lipitor] 40 mg PO HS 08/30/15 [History] Allopurinol [Zyloprim] 100 mg PO BID 05/21/16 [History] Cholecalciferol [Vitamin D3] 1,000 unit PO HS 06/29/16 [History] Ferrous Sulfate [Iron (65 MG Elemental)] 650 mg PO HS 06/29/16 [History] Magnesium Hydroxide [Milk of Magnesia] 2,400 mg PO DAILY PRN 06/29/16 [History] Polyethylene Glycol 3350 [Miralax] 17 gm PO DAILY 06/29/16 [History] Acetaminophen [Tylenol] 650 mg PO Q4H PRN 10/27/16 [History] Bisacodyl [Dulcolax] 10 mg PO DAILY PRN 01/26/17 [History] Cranberry Fruit Concentrate [Cranberry] 900 mg PO HS 02/20/17 [History] L.acidoph,Paracasei, B.lactis [Probiotic] 2 cap PO HS 02/20/17 [History] Multivitamins, Thera [Multivitamin (formulary)] 1 tab PO DAILY 02/20/17 [History ] Na Phos,M-B/Na Phos,Di-Ba [Fleet Adult] 133 ml RECTAL DAILY PRN 02/20/17 [ History] Sennosides-Docusate Sodium [Senokot-S] 1 tab PO HS 02/20/17 [History] Furosemide [Lasix] 40 mg PO DAILY #1 tablet 03/03/17 [Rx] Melatonin 3 mg PO HS 03/23/17 [History] Menthol [Biofreeze] 1 applic TOPICAL TID 03/23/17 [History] Menthol/Zinc Oxide [Calmoseptine Ointment] 1 applic TOPICAL TID 03/23/17 [ History] Potassium Chloride ER [K-Dur 20] 20 meq PO HS 03/23/17 [History] ALPRAZolam [Xanax] 0.25 mg PO BID PRN 04/20/17 [History] Aspirin 81 mg PO HS 04/20/17 [History] Escitalopram [Lexapro] 10 mg PO DAILY 04/20/17 [History] INSULIN LISPRO (HumaLOG) [humaLOG] See Protocol SQ ACHS 04/20/17 [History] Ipratropium-Albuterol Nebulize [Duoneb 0.5 mg-3 mg/3 ml Soln] 3 ml INHALATION RT -QID PRN 04/20/17 [History] Omeprazole 20 mg PO DAILY 04/20/17 [History] ALPRAZolam [Xanax] 0.25 mg PO BID PRN #60 tab 04/29/17 [Rx] Vancomycin 1,250 mg IVPB Q24H #14 vial 04/29/17 [Rx] oxyCODONE-APAP 7.5-325MG [Percocet 7.5-325 mg] 1 each PO Q6HR PRN #120 tab 04/29 [Rx] Follow up Appointment(s)/Referral(s): Carlo Frederick MD [Primary Care Provider] - 1-2 days
[2017-04-29] MEDS: MULTIVITAMINS, THERA 1 EACH TAB PO SCH (11:31)
[2017-04-29] MEDS: VANCOMYCIN 1,250 MG in SODIUM CHLORIDE 0.9% 250 ML IVPB SCH (11:31)
[2017-04-29 12:38] LABS: Glucose,Whole Blood 171 mg/dL (75-99)
== END 2017-04-29 14:09 | DRG 314 ==
LOC: EC 16:23 → 6SEL 19:59 → 4MS4W 04-27 20:35
PROVIDERS: ADMIT Family Medicine; ATTEND Family Medicine
PROC: 02HV33Z Insertion of Infusion Device into Superior Vena Cava, Percutaneous Approach (ICD-10-PCS; principal; 2017-04-28 10:26)
PROC: B548ZZA Ultrasonography of Superior Vena Cava, Guidance (ICD-10-PCS; 2017-04-28 10:26)
PROC: B518ZZA Fluoroscopy of Superior Vena Cava, Guidance (ICD-10-PCS; 2017-04-28 10:26)
DX: T80.211A Bloodstream infection due to central venous catheter, initial encounter (principal); A41.02 Sepsis due to Methicillin resistant Staphylococcus aureus; N17.9 Acute kidney failure, unspecified; J18.9 Pneumonia, unspecified organism; E11.22 Type 2 diabetes mellitus with diabetic chronic kidney disease; J84.10 Pulmonary fibrosis, unspecified; I82.532 Chronic embolism and thrombosis of left popliteal vein; L03.116 Cellulitis of left lower limb; I48.91 Unspecified atrial fibrillation; E11.42 Type 2 diabetes mellitus with diabetic polyneuropathy; S81.802A Unspecified open wound, left lower leg, initial encounter; N18.3 Chronic kidney disease, stage 3 (moderate); I12.9 Hypertensive chronic kidney disease with stage 1 through stage 4 chronic kidney disease, or unspecified chronic kidney disease; D53.9 Nutritional anemia, unspecified; E86.0 Dehydration; E66.9 Obesity, unspecified; E78.00 Pure hypercholesterolemia, unspecified; F41.9 Anxiety disorder, unspecified; F32.9 Major depressive disorder, single episode, unspecified; G47.30 Sleep apnea, unspecified; M79.7 Fibromyalgia; G43.909 Migraine, unspecified, not intractable, without status migrainosus; G89.29 Other chronic pain; L30.9 Dermatitis, unspecified; M54.9 Dorsalgia, unspecified; M81.0 Age-related osteoporosis without current pathological fracture; Z79.4 Long term (current) use of insulin; Z79.82 Long term (current) use of aspirin; Z79.899 Other long term (current) drug therapy; Z87.891 Personal history of nicotine dependence; Z96.641 Presence of right artificial hip joint; Z98.84 Bariatric surgery status; Z95.828 Presence of other vascular implants and grafts; Z96.652 Presence of left artificial knee joint; Z88.1 Allergy status to other antibiotic agents; Z91.040 Latex allergy status; Z91.010 Allergy to peanuts; Z88.0 Allergy status to penicillin; Z88.7 Allergy status to serum and vaccine; Z91.048 Other nonmedicinal substance allergy status
CPT/HCPCS: 36415; 36569; 51701; 71020; 76937; 77001; 80048; 80053; 80202; 81001; 83036; 83605; 85025; 85027; 85610; 85730; 87040; 87077; 87086; 87186; 93005; 94760; 96361; 96365; 96375; 99285

== ENCOUNTER → 2017-05-05 | Outpatient (CLI) | payer MEDICARE, OTHER ==
[~2017-05-05] MED LIST: SODIUM CHLORIDE 0.9% 500 ML in EMPTY BAG 1 BAG IV PRN
[2017-05-05 15:07] VITALS: RESP 16; TEMP 98.7
[2017-05-05 15:29] VITALS: PULSE 78
[2017-05-05 16:08] VITALS: BP 122/68
== END ==
LOC: PROCWHC3 10:47
PROVIDERS: ATTEND Physician Assistant Medical
DX: D64.9 Anemia, unspecified (principal)
CPT/HCPCS: 86900; 86901; 86902; 86850; 86920; 36430; 36591; P9016

== ENCOUNTER 2017-07-29 18:53 | Inpatient (IN) | payer MEDICARE, OTHER ==
[2017-07-29] MEDS ORDERED: PANTOPRAZOLE 40 MG/10 ML VIAL IVP STA (19:34)
--- NOTE | 2017-07-29 19:38 | ED ---
General Adult HPI - General Chief complaint: Recheck/Abnormal Lab/Rx Stated complaint: Anemia Time Seen by Provider: 07/29/17 19:16 Source: patient, EMS, RN notes reviewed Mode of arrival: EMS Limitations: no limitations - History of Present Illness Initial comments: Patient is a pleasant 66-year-old female presenting to the emergency department with reported anemia. Patient states she does have a history of anemia however unclear why. Patient has received several blood transfusions in the past. Patient has had decreased appetite the past couple days and some mild nausea. No vomiting. Patient has not noticed bloody or black stools. Patient denies taking blood thinners. Patient states she does take iron daily. - Related Data Home Medications Medication Instructions Recorded Confirmed Atorvastatin [Lipitor] 40 mg PO HS 08/30/15 07/29/17 Allopurinol [Zyloprim] 100 mg PO BID 05/21/16 07/29/17 Cholecalciferol [Vitamin D3] 1,000 unit PO HS 06/29/16 07/29/17 Ferrous Sulfate [Iron (65 MG 650 mg PO HS 06/29/16 07/29/17 Elemental)] Magnesium Hydroxide [Milk of 2,400 mg PO DAILY PRN 06/29/16 07/29/17 Magnesia] Polyethylene Glycol 3350 [Miralax] 17 gm PO DAILY 06/29/16 07/29/17 Bisacodyl [Dulcolax] 10 mg PO DAILY PRN 01/26/17 07/29/17 L.acidoph,Paracasei, B.lactis 2 cap PO HS 02/20/17 07/29/17 [Probiotic] Multivitamins, Thera [Multivitamin 1 tab PO DAILY 02/20/17 07/29/17 (formulary)] Melatonin 3 mg PO HS 03/23/17 07/29/17 Menthol/Zinc Oxide [Calmoseptine 1 applic TOPICAL TID 03/23/17 07/29/17 Ointment] Potassium Chloride ER [K-Dur 20] 20 meq PO HS 03/23/17 07/29/17 Aspirin 81 mg PO HS 04/20/17 07/29/17 Escitalopram [Lexapro] 10 mg PO DAILY 04/20/17 07/29/17 Omeprazole 20 mg PO DAILY 04/20/17 07/29/17 metFORMIN HCL [Glucophage] 500 mg PO BID 05/19/17 07/29/17 oxyCODONE-APAP 7.5-325MG [Percocet 1 tab PO Q4H PRN 05/19/17 07/29/17 7.5-325 mg] Ipratropium-Albuterol Nebulize 3 ml INHALATION RT-QID PRN 05/22/17 07/29/17 [Duoneb 0.5 mg-3 mg/3 ml Soln] Mylanta Suspension 200-200-20 30 ml PO Q4H PRN 05/22/17 07/29/17 Sennosides [Senokot] 8.6 mg PO HS 05/22/17 07/29/17 amLODIPine [Norvasc] 5 mg PO DAILY 05/22/17 07/29/17 oxyCODONE HCL [OxyCONTIN] 10 mg PO BID 05/22/17 07/29/17 Acetaminophen Tab [Tylenol] 650 mg PO Q4H PRN 07/29/17 07/29/17 Apixaban [Eliquis] 2.5 mg PO DIRECTED 07/29/17 07/29/17 Gentamicin Sulfate [Gentamicin 1 applic TOPICAL Q8H 07/29/17 07/29/17 Sulfate 0.1%] Levofloxacin [Levaquin] 500 mg PO DAILY 07/29/17 07/29/17 Rivaroxaban [Xarelto] 20 mg PO DAILY 07/29/17 07/29/17 Sulfamethox-Tmp 800-160Mg [Bactrim 1 tab PO Q12HR 07/29/17 07/29/17 DS 800-160 mg] Previous Rx's Medication Instructions Recorded ALPRAZolam [Xanax] 0.25 mg PO BID PRN #60 tab 05/31/17 Ibuprofen [Motrin] 400 mg PO Q6HR PRN tab 05/31/17 Allergies Allergy/AdvReac Type Severity Reaction Status Date / Time adhesive tape Allergy Severe Rash/Hives Verified 07/29/17 19:21 cephalexin monohydrate Allergy Severe Rash/Hives Verified 07/29/17 19:21 [From Keflex] influenza virus vaccine, Allergy Severe Anaphylaxis Verified 07/29/17 19:21 specific [influenza virus vacc,specific] latex Allergy Severe Rash/Hives Verified 07/29/17 19:21 peanut Allergy Severe Anaphylaxis Verified 07/29/17 19:21 Penicillins Allergy Severe Swelling Verified 07/29/17 19:21 tetanus toxoid, adsorbed Allergy Intermediate Rash/Hives Verified 07/29/17 19:21 Influenza Virus Vaccines Allergy Anaphylaxis Verified 07/29/17 19:21 Review of Systems ROS Statement: Those systems with pertinent positive or pertinent negative responses have been documented in the HPI. ROS Other: All systems not noted in ROS Statement are negative. Constitutional: Denies: fever Eyes: Denies: eye pain ENT: Denies: ear pain Respiratory: Denies: cough Cardiovascular: Denies: chest pain Endocrine: Denies: fatigue Gastrointestinal: Reports: nausea Genitourinary: Denies: dysuria Musculoskeletal: Denies: back pain Skin: Denies: rash Neurological: Denies: headache Past Medical History Past Medical History: Atrial Fibrillation, Diabetes Mellitus, Deep Vein Thrombosis (DVT), Fibromyalgia, GI Bleed, Hyperlipidemia, Hypertension, Pneumonia, Renal Disease, Skin Disorder, Sleep Apnea/CPAP/BIPAP Additional Past Medical History / Comment(s): Anemia, DVT left lower leg, dermatitis, gastric ulcer, chronic lower back pain, morbid obesity, severe sepsis w/ septic shock, SVT, DM type 2, hemorrhoids, cellulitis of left lower extremity, dysphagia, chronic kidney disease stage 3, hypernatremia, falls, metabolic encephalopathy, muscle weakness, pneumonia, sleep apnea, bilateral tinnitus, atrial fibrillation, UTI. Left eye contusion/left lower leg laceration - surgically repaired, Right heel pressure ulcer - healed, peripheral neuropathy (bilateral hands and feet), migraines, eczema, sinus problems, lower GI bleed. 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 Source:: Blood, left leg, sputum-MRSA; Urine-VRE Past Surgical History: Adenoidectomy, Bariatric Surgery, Cholecystectomy, Joint Replacement, Tonsillectomy, Tubal Ligation Additional Past Surgical History / Comment(s): Gastric bypass, [place]-en-Y in 2003 , [place] filter placement in 2000, teeth extraction, colonoscopy, EGD, hemorrhoidectomy, panniculectomy, D&C, hystoscopy x 2, LT KNEE replaced 2005- MRSA infection-hardware removed and cemented then replaced again, L hip repair with screw and total R hip REPLACEMENT, bilateral heel spurs removed, bilateral carpal tunnel releases, D&Cs, infusaport insertion since removed. Past Anesthesia/Blood Transfusion Reactions: Blood Transfusion Reaction Additional Past Anesthesia/Blood Transfusion Reaction / Comment(s): Patient thinks she possibly had elevated temperatures d/t blood transfusion. Past Psychological History: Anxiety, Depression Smoking Status: Former smoker Past Alcohol Use History: Rare Past Drug Use History: None Reported - Past Family History Father Family Medical History: Myocardial Infarction ([place]) Additional Family Medical History / Comment(s): AT AGE 46-[place] Mother Family Medical History: Diabetes Mellitus Additional Family Medical History / Comment(s): AT AGE 66 FROM COMPLICATIONS FROM DM Sister(s) Family Medical History: Diabetes Mellitus Brother(s) Family Medical History: Diabetes Mellitus Daughter(s) Family Medical History: Cancer Son(s) Family Medical History: No Reported History General Exam Limitations: no limitations General appearance: alert, in no apparent distress Head exam: Present: atraumatic Eye exam: Present: other (Pale conjunctiva) ENT exam: Present: normal oropharynx Neck exam: Present: normal inspection Respiratory exam: Present: normal lung sounds bilaterally Cardiovascular Exam: Present: regular rate, normal rhythm GI/Abdominal exam: Present: soft. Absent: distended, tenderness, pulsatile mass Rectal exam: Present: black stool Extremities exam: Present: normal inspection Neurological exam: Present: alert Psychiatric exam: Present: normal affect, normal mood Skin exam: Present: normal color Course Vital Signs 07/29/17 07/29/17 07/29/17 19:00 19:53 20:25 Temperature 98.8 F Pulse Rate 87 92 83 Respiratory 18 18 18 Rate Blood Pressure 132/78 107/54 114/58 O2 Sat by Pulse 97 95 97 Oximetry - Reevaluation(s) Reevaluation #1: 07/29/17 19:37 Lab report from today shows hemoglobin 4.0 and hematocrit of 12.7. Previous hemoglobin 07/06 was reported as 9.1. Medical Decision Making - Medical Decision Making Patient reevaluated and updated. Case discussed with Dr. Lara, who will admit for Dr. Gurrola. He requests consult with Dr. Renteria. Case was also discussed with Dr. Wolff who will consult for critical care. - Lab Data Result diagrams: 07/29/17 19:45 07/29/17 19:45 Lab Results 07/29/17 07/29/17 07/29/17 Range/Units 19:45 19:45 19:45 WBC 5.2 (3.8-10.6) k/uL RBC 1.59 L (3.80-5.40) m/uL Hgb 4.5 L* D (11.4-16.0) gm/dL Hct 16.0 L* (34.0-46.0) % MCV 100.6 H (80.0-100.0) fL MCH 28.4 (25.0-35.0) pg MCHC 28.2 L (31.0-37.0) g/dL RDW 20.9 H (11.5-15.5) % Plt Count 421 (150-450) k/uL Neutrophils % 49 % Lymphocytes % 38 % Monocytes % 4 % Eosinophils % 5 % Basophils % 1 % Neutrophils # 2.6 (1.3-7.7) k/uL Lymphocytes # 2.0 (1.0-4.8) k/uL Monocytes # 0.2 (0-1.0) k/uL Eosinophils # 0.2 (0-0.7) k/uL Basophils # 0.0 (0-0.2) k/uL Hypochromasia Marked Anisocytosis Moderate Macrocytosis Moderate PT (9.0-12.0) sec INR (<1.2) APTT (22.0-30.0) sec Sodium 139 (137-145) mmol/L Potassium 4.8 (3.5-5.1) mmol/L Chloride 111 H (98-107) mmol/L Carbon Dioxide 18 L (22-30) mmol/L Anion Gap 10 mmol/L BUN 31 H (7-17) mg/dL Creatinine 1.24 H (0.52-1.04) mg/dL Est GFR (MDRD) Af Amer 52 (>60 ml/min/1.73 sqM) Est GFR (MDRD) Non-Af 43 (>60 ml/min/1.73 sqM) Glucose 92 (74-99) mg/dL Calcium 8.9 (8.4-10.2) mg/dL Total Bilirubin 0.2 (0.2-1.3) mg/dL AST 23 (14-36) U/L ALT 33 (9-52) U/L Alkaline Phosphatase 119 (38-126) U/L Total Protein 6.5 (6.3-8.2) g/dL Albumin 2.8 L (3.5-5.0) g/dL Stool Occult Blood Positive H (Negative) Blood Type Blood Type Recheck Antibody Screen Spec Expiration Date 07/29/17 07/29/17 Range/Units 19:45 19:45 WBC (3.8-10.6) k/uL RBC (3.80-5.40) m/uL Hgb (11.4-16.0) gm/dL Hct (34.0-46.0) % MCV (80.0-100.0) fL MCH (25.0-35.0) pg MCHC (31.0-37.0) g/dL RDW (11.5-15.5) % Plt Count (150-450) k/uL Neutrophils % % Lymphocytes % % Monocytes % % Eosinophils % % Basophils % % Neutrophils # (1.3-7.7) k/uL Lymphocytes # (1.0-4.8) k/uL Monocytes # (0-1.0) k/uL Eosinophils # (0-0.7) k/uL Basophils # (0-0.2) k/uL Hypochromasia Anisocytosis Macrocytosis PT 11.2 (9.0-12.0) sec INR 1.2 H (<1.2) APTT 21.1 L (22.0-30.0) sec Sodium (137-145) mmol/L Potassium (3.5-5.1) mmol/L Chloride (98-107) mmol/L Carbon Dioxide (22-30) mmol/L Anion Gap mmol/L BUN (7-17) mg/dL Creatinine (0.52-1.04) mg/dL Est GFR (MDRD) Af Amer (>60 ml/min/1.73 sqM) Est GFR (MDRD) Non-Af (>60 ml/min/1.73 sqM) Glucose (74-99) mg/dL Calcium (8.4-10.2) mg/dL Total Bilirubin (0.2-1.3) mg/dL AST (14-36) U/L ALT (9-52) U/L Alkaline Phosphatase (38-126) U/L Total Protein (6.3-8.2) g/dL Albumin (3.5-5.0) g/dL Stool Occult Blood (Negative) Blood Type A Positive Blood Type Recheck No Antibody Screen NEGATIVE Spec Expiration Date 08/01/2017 - 2348 Critical Care Time Critical Care Time: Yes Total Critical Care Time: 33 Disposition Clinical Impression: GI bleed, Anemia Disposition: ADMITTED IP TO THIS [facility] Condition: Serious Referrals: Willis Gurrola MD [Primary Care Provider] - 1-2 days Decision Time: 20:56
[2017-07-29 19:57] LABS: Anisocytosis Moderate; Basophils % (A) 1 %; Eosinophils # (A) 0.2 k/uL (0-0.7); Eosinophils % (A) 5 %; Hypochromasia Marked; Lymphocytes % (A) 38 %; MCH 28.4 pg (25.0-35.0); MCHC 28.2 g/dL (31.0-37.0); MCV 100.6 fL (80.0-100.0); Macrocytosis Moderate; Mean Platelet Volume 7.1; Monocytes # (A) 0.2 k/uL (0-1.0); Monocytes % (A) 4 %; Neutrophils # (A) 2.6 k/uL (1.3-7.7); Neutrophils % (A) 49 %; Platelet Count 421 k/uL (150-450); RBC 1.59 m/uL (3.80-5.40); RDW 20.9 % (11.5-15.5); WBC 5.2 k/uL (3.8-10.6)
[2017-07-29 20:02] LABS: HGB 4.5 gm/dL (11.4-16.0)
[2017-07-29 20:06] LABS: Albumin 2.8 g/dL (3.5-5.0); Calcium 8.9 mg/dL (8.4-10.2); Potassium 4.8 mmol/L (3.5-5.1); Total Bilirubin 0.2 mg/dL (0.2-1.3); Total Protein 6.5 g/dL (6.3-8.2)
[2017-07-29 20:17] LABS: INR 1.2 (<1.2); Prothrombin Time 11.2 sec (9.0-12.0)
[2017-07-29 20:18] LABS: Partial Thromboplastin Time 21.1 sec (22.0-30.0)
[2017-07-29] MEDS ORDERED: NALOXONE 0.4 MG/ML 1 ML VIAL IV PRN (20:56)
[2017-07-29] MEDS ORDERED: MAG HYDROX/AL HYDROX/SIMETH 30 ML CUP PO PRN (22:11)
[2017-07-29] MEDS ORDERED: IPRATROPIUM-ALBUTEROL 3 ML NEB INHALATION PRN (22:11)
[2017-07-29] MEDS ORDERED: ACETAMINOPHEN TAB 325 MG TAB PO PRN (22:11)
[2017-07-29] MEDS ORDERED: HYDROmorphone 1 MG/ML 1 ML SYRINGE IVP PRN (22:15)
[2017-07-29] MEDS: oxyCODONE-APAP 7.5-325MG 1 EACH TAB PO PRN (22:56)
[2017-07-29 23:21] LABS: Glucose,Whole Blood 110 mg/dL (75-99)
[2017-07-30] MEDS: SODIUM CHLORIDE 0.9% 1,000 ML IV SCH ×2 (01:25→20:20)
[2017-07-30] MEDS: GENTAMICIN 0.1% CREAM 15 GM TUBE TOPICAL SCH ×3 (01:25→19:06)
[2017-07-30] MEDS: HYDROmorphone 2 MG/ML 1 ML SYRINGE IVP PRN ×2 (01:45→18:53)
[2017-07-30] MEDS: ALPRAZolam 0.25 MG TAB PO PRN (01:57)
[2017-07-30] MEDS: oxyCODONE-APAP 7.5-325MG 1 EACH TAB PO PRN (03:41)
--- NOTE | 2017-07-30 07:16 | XR ---
EXAMINATION TYPE: XR chest 1V portable DATE OF EXAM: 07/30/2017 HISTORY: chf. REFERENCE: Previous study dated 05/22/2017. FINDINGS: The heart is enlarged. The lungs appear clear. Pleural spaces are clear. There is no emili pneumonia or edema. There is mild vascular congestion. IMPRESSION: 1. CARDIOMEGALY. 2. VASCULAR CONGESTION WITHOUT EMILI EDEMA.
[2017-07-30 07:51] LABS: Glucose,Whole Blood 101 mg/dL (75-99)
--- NOTE | 2017-07-30 08:02 | HP ---
HISTORY AND PHYSICAL CHIEF COMPLAINT: Anemia. I am covering for Dr. Gurrola. HISTORY OF PRESENT ILLNESS: This 66-year-old woman with a past medical history of multiple medical problems including atrial ablation, diabetes mellitus, DVT, history of fibromyalgia, history of GI bleed, history of sleep apnea, being followed by Dr. Gurrola in the outpatient setting was recently admitted with MRSA sepsis. The patient also has gait dysfunction. Patient was sent to [facility]. Currently patient residing in [facility] and the most recent hemoglobin in the computer was 9.3. The patient is complaining of tiredness and weakness and [facility] hemoglobin was found to be 4 and the patient was sent to [facility] and admitted for evaluation and treatment. The patient also has a history of bariatric surgery and adenoidectomy also. The hemoglobin is found to be 4.5. Three units of transfusion has been arranged after antibody check at this time. There is no history of fever, rigors. No history of headache, loss of consciousness, seizures. The patient apparently did not have any endoscopies recently. PAST MEDICAL HISTORY: Atrial ablation, diabetes, DVT, fibromyalgia, GI bleed, hypertension, hyperlipidemia. MEDICATIONS: Prior to admission include include home medications are: 1. OxyContin 7.5 mg q.4h p.r.n. 2. Mylanta 30 mL q.4h p.r.n. 3. Magnesium oxide 2.4 g. 4. Motrin 400 mg q.6h p.r.n. 5. Xanax 0.5 b.i.d. 6. DuoNeb q.i.d. and p.r.n. 7. Colcrys 10 mg daily p.r.n. 8. Tylenol 650 q.4h. 9. OxyContin 10 mg p.o. b.i.d. 10.Glucophage 500 mg p.o. b.i.d. 11.One application t.i.d. 12.Gentamicin 1 application q.i.d. 13.Eliquis 2.5 mg p.r.n. 14.Bactrim DS 1 p.o. b.i.d. 15.Xarelto 20 mg b.i.d. 16.Zyloprim 100 mg p.o. b.i.d. 17.Norvasc 5 mg daily. 18.Senokot 8.6 q.h.s. 19.K-Dur 20 mg p.o. daily. 20.MiraLAX 17 g p.o. 21.Omeprazole 20 mg daily. 22.Multivitamins 1 p.o. daily. 23.Probiotic 2 capsule q.h.s. 24.Melatonin 3 mg q.h.s. 25.Levaquin 500 mg p.o. daily. 26.Lexapro 10 mg p.o. 27.Iron sulfate 65 mg p.o. q.h.s. 28.Vitamin D 3000 mg. 29.Lipitor 40 mg q.h.s. 30.Aspirin 81 mg q.h.s. ALLERGIES: Are multiple allergies: ADHESIVE TAPES, KEFLEX, INFLUENZA VACCINE, PEANUTS, TETANUS VACCINE, INFLUENZA VIRUS. FAMILY HISTORY: History of myocardial infarction in the family. SOCIAL HISTORY: Previous history of smoking. Occasional THC. REVIEW OF SYSTEMS: ENT: Diminished hearing or vision. CARDIOVASCULAR: As mentioned. RESPIRATORY: As mentioned earlier. GI: As mentioned earlier. : No dysuria. NERVOUS SYSTEM: No numbness or weakness. ALLERGY/IMMUNOLOGY: No asthma or hayfever. MUSCULOSKELETAL: As mentioned earlier. HEMATOLOGY: As mentioned earlier. ENDOCRINE: Diabetes. CONSTITUTIONAL: As mentioned earlier. DERMATOLOGY: Negative. RHEUMATOLOGY: Negative. PSYCHIATRY: As mentioned earlier. PHYSICAL EXAMINATION: Alert and oriented x3. The pulse is 80, blood pressure 114/56, respiration 18, temperature normal, pulse ox 98% on room air. HEENT: Conjunctivae pale. Oral mucosa moist, also pale. Neck is no jugular venous distention. No carotid bruit. No lymph node enlargement. Jugular venous root at the neck. CARDIOVASCULAR: S1, S2. Early ejection systolic murmur. No S3, no S4. RESPIRATORY: Breath sounds diminished in the bases. A few scattered rhonchi and crackles. ABDOMEN: Soft, nontender. No mass palpable. LEGS: Bilateral leg edema. NERVOUS SYSTEM: Higher functions as mentioned earlier. Moves all 4 limbs. No focal motor sensory deficits. LYMPHATICS: No lymphadenopathy in the neck or axillae. SKIN: No ulcer, rash, bleeding. LABS: At this time shows WBC 5, hemoglobin is 4.5, MCV 100.6 and sodium 139, potassium 4.8, creatinine is 1.24. Stool OP is positive. Albumin is 2.8. ASSESSMENT: 1. Anemia possibly acute on chronic gastrointestinal blood loss anemia. 2. Rule out nutritional component. 3. History of bariatric surgery. 4. Increased creatinine with chronic kidney disease stage III. 5. History atrial fibrillation. 6. History of deep vein thrombosis. 7. On Xarelto. 8. Fibromyalgia. 9. History of hypertension. 10.History of hyperlipidemia. 11.History of sleep apnea. 12.History of deep vein thrombosis of the left lower leg. 13.History of dermatitis. 14.History of recent MRSA sepsis. 15.History of SVT. 16.Diabetes mellitus type 2. 17.History dysphagia. 18.Atrial fibrillation. 19.History of right heel pressure ulcer. 20.History of bariatric surgery. 21.History of cholecystectomy. 22.History degenerative joint disease. 23.History of gastric bypass [place]-en-Y. 24.History of [place] filter placement. 25.History of anxiety, depression. 26.Gait dysfunction. 27.FULL CODE. RECOMMENDATIONS AND DISCUSSION: This 66-year-old woman who presented with multiple complex medical issues, will monitor the patient closely. Continue the current medications and symptomatic treatment. Recommend at least 3 units transfusion with Lasix 20 mg after each unit of transfusion. Monitor hemoglobin closely. The possibility of gastrointestinal blood loss is considered. I would recommend surgical evaluation for continued monitoring. Otherwise the patient will be monitored in ICU and I would also like to resume the home medications but hold off the anticoagulation and antiplatelet agents. Cardiology also will be consulted. Prognosis guarded because of multiple complex medical issues. Further recommendations to follow. Copy of dictation forwarded to Dr. Gurrola who is the primary physician. See orders for details. MMODL / IJN: [id number] / MTDD
[2017-07-30] MEDS: INSULIN ASPART 100 UNIT/ML 1 ML 10 ML VIAL SQ SCH ×4 (08:22→20:22)
[2017-07-30] MEDS: ESCITALOPRAM 10 MG TAB PO SCH (08:30)
[2017-07-30] MEDS: amLODIPine 5 MG TAB PO SCH ×2 (08:30→19:43)
[2017-07-30] MEDS: ALLOPURINOL 100 MG TAB PO SCH ×2 (08:30→20:19)
[2017-07-30] MEDS: metFORMIN 500 MG TAB PO SCH ×2 (08:30→20:19)
[2017-07-30] MEDS: SULFAMETHOX-TMP 800-160MG 1 EACH TAB PO SCH ×2 (08:31→20:19)
[2017-07-30] MEDS: MULTIVITAMINS, THERA 1 EACH TAB PO SCH (08:31)
[2017-07-30] MEDS: LEVOFLOXACIN 500 MG TAB PO SCH (08:31)
[2017-07-30 08:33] LABS: Anisocytosis Slight; Basophils % (A) 1 %; Eosinophils # (A) 0.2 k/uL (0-0.7); Eosinophils % (A) 5 %; HCT 23.3 % (34.0-46.0); Hypochromasia Marked; Lymphocytes # (A) 1.6 k/uL (1.0-4.8); Lymphocytes % (A) 36 %; MCH 29.3 pg (25.0-35.0); MCHC 30.7 g/dL (31.0-37.0); Macrocytosis Slight; Mean Platelet Volume 7.5; Monocytes # (A) 0.3 k/uL (0-1.0); Monocytes % (A) 6 %; Neutrophils # (A) 2.2 k/uL (1.3-7.7); Neutrophils % (A) 51 %; Platelet Count 309 k/uL (150-450); Poikilocytosis Slight; RBC 2.43 m/uL (3.80-5.40); RDW 18.8 % (11.5-15.5); WBC 4.4 k/uL (3.8-10.6)
[2017-07-30 08:46] LABS: HGB 7.1 gm/dL (11.4-16.0); MCV 95.6 fL (80.0-100.0)
[2017-07-30 08:49] LABS: Calcium 8.5 mg/dL (8.4-10.2); Phosphorus 4.2 mg/dL (2.5-4.5); Potassium 4.6 mmol/L (3.5-5.1)
[2017-07-30] MEDS ORDERED: POLYETHYLENE GLYCOL 3350 17 GM POWD.PACK PO SCH (09:00)
--- NOTE | 2017-07-30 10:08 | CONS ---
CONSULTATION Mrs. Lang is a 66-year-old female who was admitted through the emergency room from the [facility] because of severe anemia. The patient denies any symptoms of chest discomfort. She was diagnosed recently with left DVT. Her hemoglobin on presentation was 4. Cardiology consultation was requested because of questionable arrhythmia. The patient denies any history of arrhythmia. There is a note in the chart that the patient has atrial fibrillation, although I do not see any documentation of atrial fibrillation available since the admission, and when I asked the patient why she is on anticoagulation, initially she was not quite sure she is on anticoagulation. Subsequently, she felt that the anticoagulation was related to the recent left DVT. She has history of pneumonia and has been receiving transfusions in the past. I have an EKG available from March of 2017 and she was in sinus mechanism. In January of 2017 she had multifocal atrial tachycardia at that time. There was no episode of atrial fibrillation. She had an echocardiogram in February of 2017 that revealed a normal left ventricle size and systolic function with mild mitral regurgitation. The patient is not active physically. She is in the wheelchair most of the time. She has wounds in her left lower extremity. She has no dizziness or palpitation. According to her, breathing is stable. She denies any dizziness or palpitation. She denies any history of myocardial infarction or obstructive coronary artery disease. Her coronary risk factors include diabetes, hypertension. She is a nonsmoker and hyperlipidemia. MEDICATION: 1. Lipitor 40 mg daily. 2. Metformin. 3. It looks like she was on Eliquis at home. 4. She is on amlodipine 5 mg daily. 5. Potassium. 6. Lexapro. 7. Ibuprofen. REVIEW OF SYSTEMS: Respiratory system: She had dyspnea on exertion. No recent wheezing or cough. GI system: She is not aware of the GI bleeding, but she has some abdominal pain and mild nausea. system: No recent dysuria or hematuria. Nervous system: She denies any seizure. PHYSICAL EXAMINATION: She is a 66-year-old female, appears to be much older than stated age. Alert, oriented. Blood pressure is 130/60 with a heart rate in the 70s. HEAD: Normocephalic. Eyes sclerae anicteric. Neck no bruit. LUNGS: Clear to auscultation. Heart regular rate and rhythm S1, S2. No S3 with systolic murmur. No diastolic murmur. No rub. ABDOMEN: Soft and nontender. Mild tenderness in the epigastrium. Positive bowel sounds. No organomegaly. Extremities are erythema and chronic skin changes on the left side with evidence of ulceration. Right extremities no significant edema. LAB DATA: Revealed hemoglobin of 4.5 on admission, up to 7.1 after 3 units of transfusion. BUN creatinine 26 and 1.2. Potassium 4.6. She is heme positive. No EKG is available. IMPRESSION: 1. Severe anemia most likely related to gastrointestinal bleeding. Patient has been anticoagulated because of the DVT. I do not see any evidence of a atrial fibrillation, on the documentation. 2. History of ulceration, nonhealing wound. 3. History of hypertension. 4. Hyperlipidemia. 5. Diabetes mellitus. RECOMMENDATION: From the cardiac standpoint, she needs to be evaluated regarding the anticoagulation in regard to her DVT. If there is active bleeding, then a filter may be an option. From the cardiac standpoint, there is no indication for anticoagulation. I will obtain an EKG. I will follow her lab data. Depending on progress, further recommendations will be made. Thank you for this consult. We will follow with you. MMODL / IJN: [id number] /
[2017-07-30] MEDS ORDERED: RX INFO: IV CONTRAST WAS GIVEN 1 EACH MISC MISCELLANE PRN (10:12)
--- NOTE | 2017-07-30 10:36 | P.CNPUL ---
History of Present Illness Consult date: 07/30/17 Requesting physician: Willis Gurrola Reason for consult: other (Critical care management) Chief complaint: Anemia History of present illness: This is a pleasant 66-year-old female patient who follows with Dr. Gurrola as her primary care physician. She resides at the [facility]. She has a medical history of diabetes mellitus, deep vein thrombosis, fibromyalgia, GI bleed, hyperlipidemia, hypertension, previous morbid obesity status post Clinton-en -Y gastric bypass procedure, sepsis with septic shock, SVT, cellulitis of the left lower extremity, chronic kidney disease stage III, sleep apnea not on CPAP , atrial fibrillation. The patient also has a history of Oden filter placement. She is also anticoagulated on Elliquis. Previous MRSA, previous VRE , multiple orthopedic surgeries. She is wheelchair-bound. She was brought here to the emergency room after having outpatient labs that revealed a hemoglobin of 4.5. Hematocrit 16.0. MCV 100.6. Creatinine 1.20. She is seen today in consultation in the intensive care unit. She is awake and alert in no acute distress she is status post 3 units of packed red blood cell transfusions and her current hemoglobin is 7.1. She has had issues with some ongoing nausea and poor appetite prior to her arrival here. Her stools are positive for occult blood. She has no pulmonary complaints. She is maintaining good O2 saturations up to 100% on room air. She's been afebrile. She's been hemodynamically stable. Did not require any pressors. She is currently on Bactrim and Levaquin. She does have ongoing issues with the left lower extremity cellulitis. There is some scabbing wounds. Review of Systems 14 point review of system was conducted. All negative other than as mentioned in the HPI. Past Medical History Past Medical History: Atrial Fibrillation, Diabetes Mellitus, Deep Vein Thrombosis (DVT), Fibromyalgia, GI Bleed, Hyperlipidemia, Hypertension, Pneumonia, Renal Disease, Skin Disorder Additional Past Medical History / Comment(s): Anemia, DVT left lower leg, dermatitis, gastric ulcer, chronic lower back pain, morbid obesity, severe sepsis w/ septic shock, SVT, DM type 2, hemorrhoids, cellulitis of left lower extremity, dysphagia, chronic kidney disease stage 3, hypernatremia, falls, metabolic encephalopathy, muscle weakness, pneumonia, sleep apnea, bilateral tinnitus, atrial fibrillation, UTI. Left eye contusion/left lower leg laceration - surgically repaired, Right heel pressure ulcer - healed, peripheral neuropathy (bilateral hands and feet), migraines, eczema, sinus problems, lower GI bleed. Last Myocardial Infarction Date:: unknown History of Any Multi-Drug Resistant Organisms: MRSA, VRE Date of last positivie culture/infection: 05/25/17/MRSA; 10/21/2014 VRE MDRO Source:: Blood, left leg, sputum-MRSA; Urine-VRE Past Surgical History: Adenoidectomy, Bariatric Surgery, Cholecystectomy, Joint Replacement, Tonsillectomy, Tubal Ligation Additional Past Surgical History / Comment(s): Gastric bypass, Clinton-en-Y in 2003 , Lizzy filter placement in 2000, teeth extraction, colonoscopy, EGD, hemorrhoidectomy, panniculectomy, D&C, hystoscopy x 2, LT KNEE replaced 2005- MRSA infection-hardware removed and cemented then replaced again, L hip repair with screw and total R hip REPLACEMENT, bilateral heel spurs removed, bilateral carpal tunnel releases, D&Cs, infusaport insertion since removed. Past Anesthesia/Blood Transfusion Reactions: Blood Transfusion Reaction Additional Past Anesthesia/Blood Transfusion Reaction / Comment(s): Patient thinks she possibly had elevated temperatures r/t blood transfusion. Past Psychological History: Anxiety, Depression Additional Psychological History / Comment(s): Patient is now in extended care. No longer live independently. Does not have any significant family. Was a tobacco smoker stopping several years ago. She has history of smoking 1.5 pack per day for 27 years and quit in 1993. She drinks alcohol rarely. 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 No animal exposures. Smoking Status: Former smoker Past Alcohol Use History: None Reported Additional Past Alcohol Use History / Comment(s): She has history of smoking 2 packs per day for 27 years and quit in 1993. She drinks alcohol rarely. 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 Past Drug Use History: None Reported Additional Drug Use History / Comment(s): . - Past Family History Father Family Medical History: Myocardial Infarction ([place]) Additional Family Medical History / Comment(s): AT AGE 46-[place] Mother Family Medical History: Diabetes Mellitus Additional Family Medical History / Comment(s): AT AGE 66 FROM COMPLICATIONS FROM DM Sister(s) Family Medical History: Diabetes Mellitus Brother(s) Family Medical History: Diabetes Mellitus Daughter(s) Family Medical History: Cancer Son(s) Family Medical History: No Reported History Medications and Allergies Home Medications Medication Instructions Recorded Confirmed Type Atorvastatin [Lipitor] 40 mg PO HS 08/30/15 07/29/17 History Allopurinol [Zyloprim] 100 mg PO BID 05/21/16 07/29/17 History Cholecalciferol [Vitamin D3] 1,000 unit PO HS 06/29/16 07/29/17 History Ferrous Sulfate [Iron (65 MG 650 mg PO HS 06/29/16 07/29/17 History Elemental)] Magnesium Hydroxide [Milk of 2,400 mg PO DAILY PRN 06/29/16 07/29/17 History Magnesia] Polyethylene Glycol 3350 [Miralax] 17 gm PO DAILY 06/29/16 07/29/17 History Bisacodyl [Dulcolax] 10 mg PO DAILY PRN 01/26/17 07/29/17 History L.acidoph,Paracasei, B.lactis 2 cap PO HS 02/20/17 07/29/17 History [Probiotic] Multivitamins, Thera [Multivitamin 1 tab PO DAILY 02/20/17 07/29/17 History (formulary)] Melatonin 3 mg PO HS 03/23/17 07/29/17 History Menthol/Zinc Oxide [Calmoseptine 1 applic TOPICAL TID 03/23/17 07/29/17 History Ointment] Potassium Chloride ER [K-Dur 20] 20 meq PO HS 03/23/17 07/29/17 History Aspirin 81 mg PO HS 04/20/17 07/29/17 History Escitalopram [Lexapro] 10 mg PO DAILY 04/20/17 07/29/17 History Omeprazole 20 mg PO DAILY 04/20/17 07/29/17 History metFORMIN HCL [Glucophage] 500 mg PO BID 05/19/17 07/29/17 History oxyCODONE-APAP 7.5-325MG [Percocet 1 tab PO Q4H PRN 05/19/17 07/29/17 History 7.5-325 mg] Ipratropium-Albuterol Nebulize 3 ml INHALATION RT-QID PRN 05/22/17 07/29/17 History [Duoneb 0.5 mg-3 mg/3 ml Soln] Mylanta Suspension 200-200-20 30 ml PO Q4H PRN 05/22/17 07/29/17 History Sennosides [Senokot] 8.6 mg PO HS 05/22/17 07/29/17 History amLODIPine [Norvasc] 5 mg PO DAILY 05/22/17 07/29/17 History oxyCODONE HCL [OxyCONTIN] 10 mg PO BID 05/22/17 07/29/17 History ALPRAZolam [Xanax] 0.25 mg PO BID PRN #60 tab 05/31/17 07/29/17 Rx Ibuprofen [Motrin] 400 mg PO Q6HR PRN tab 05/31/17 07/29/17 Rx Acetaminophen Tab [Tylenol] 650 mg PO Q4H PRN 07/29/17 07/29/17 History Apixaban [Eliquis] 2.5 mg PO DIRECTED 07/29/17 07/29/17 History Gentamicin Sulfate [Gentamicin 1 applic TOPICAL Q8H 07/29/17 07/29/17 History Sulfate 0.1%] Levofloxacin [Levaquin] 500 mg PO DAILY 07/29/17 07/29/17 History Rivaroxaban [Xarelto] 20 mg PO DAILY 07/29/17 07/29/17 History Sulfamethox-Tmp 800-160Mg [Bactrim 1 tab PO Q12HR 07/29/17 07/29/17 History DS 800-160 mg] Allergies Allergy/AdvReac Type Severity Reaction Status Date / Time adhesive tape Allergy Severe Rash/Hives Verified 07/29/17 19:21 cephalexin monohydrate Allergy Severe Rash/Hives Verified 07/29/17 19:21 [From Keflex] influenza virus vaccine, Allergy Severe Anaphylaxis Verified 07/29/17 19:21 specific [influenza virus vacc,specific] latex Allergy Severe Rash/Hives Verified 07/29/17 19:21 peanut Allergy Severe Anaphylaxis Verified 07/29/17 19:21 Penicillins Allergy Severe Swelling Verified 07/29/17 19:21 tetanus toxoid, adsorbed Allergy Intermediate Rash/Hives Verified 07/29/17 19:21 Influenza Virus Vaccines Allergy Anaphylaxis Verified 07/29/17 19:21 Physical Exam Vitals: Vital Signs Temp Pulse Resp BP Pulse Ox 07/30/17 09:00 75 14 113/57 99 07/30/17 08:00 98.4 F 73 16 103/52 100 07/30/17 07:00 74 16 130/60 100 07/30/17 06:00 74 16 109/55 100 07/30/17 05:22 98.9 F 74 22 106/58 100 07/30/17 05:00 76 12 103/53 99 07/30/17 04:52 98.8 F 78 20 103/53 100 07/30/17 04:42 98.9 F 77 20 113/77 100 07/30/17 04:05 98.9 F 76 24 113/77 99 07/30/17 04:00 98.9 F 76 20 113/77 98 07/30/17 03:00 77 13 99/49 100 07/30/17 02:00 86 14 130/54 99 07/30/17 01:58 98.5 F 83 22 130/54 99 07/30/17 01:28 98.6 F 80 22 111/52 100 07/30/17 01:18 98.6 F 72 22 102/54 100 07/30/17 01:00 98.6 F 79 23 111/48 100 07/30/17 00:33 99.7 F H 79 18 111/48 100 07/30/17 00:00 99.9 F H 86 20 123/53 100 07/29/17 23:20 99.9 F H 83 20 123/53 100 07/29/17 22:50 98.8 F 82 18 120/61 99 07/29/17 22:40 99.0 F 82 18 119/56 07/29/17 22:34 99.0 F 82 18 119/56 100 07/29/17 21:55 79 18 121/57 98 07/29/17 21:25 79 18 119/57 98 07/29/17 20:55 80 18 114/57 99 07/29/17 20:25 83 18 114/58 97 07/29/17 19:53 92 18 107/54 95 07/29/17 19:00 98.8 F 87 18 132/78 97 Intake and Output 07/29/17 07/30/17 07/30/17 22:59 06:59 14:59 Intake Total 0 1640 30 Output Total 0 Balance 0 1640 30 Intake: IV 930 PRBC 930 Oral 90 30 Blood Product 0 620 Rc As-1 Unit 0 310 [id number] Rc As-1 Unit 310 [id number] Rc As-1 Unit 0 [id number] Output: Urine 0 Other: Voiding Method Bedpan Diaper # Voids 2 0 # Bowel Movements 1 1 Weight 90.718 kg 86.3 kg Her head exam was generally normal. There was no scleral icterus or corneal arcus. Mucous membranes are moist. No thrush, goiter or neck masses. Lungs are clear anterior and posteriorly. No wheezing or rales noted. Cardiac exam reveals PMI to be normally situated in size. The rhythm was regular with no extrasystoles. First and second heart sounds are heard. Abdomen is obese soft slightly tender to palpation. Bowel sounds are present. There is no guarding or rigidity. Extremities have trace peripheral edema. There is scabbing ulcers of the left lower extremity. Evidence of chronic venous stasis. There is evidence of foot drop. No clubbing or cyanosis. Peripheral pulses are intact. Results - Laboratory Findings CBC and BMP: 07/30/17 08:07 07/30/17 08:07 PT/INR, D-dimer PT 11.2 sec (9.0-12.0) 07/29/17 19:45 INR 1.2 (<1.2) H 07/29/17 19:45 Abnormal lab findings: Abnormal Labs 07/29/17 07/29/17 07/29/17 19:45 19:45 19:45 RBC 1.59 L Hgb 4.5 L* D Hct 16.0 L* MCV 100.6 H MCHC 28.2 L RDW 20.9 H INR APTT Chloride 111 H Carbon Dioxide 18 L BUN 31 H Creatinine 1.24 H POC Glucose (mg/dL) Albumin 2.8 L Stool Occult Blood Positive H Crossmatch 07/29/17 07/29/17 07/29/17 19:45 19:45 23:19 RBC Hgb Hct MCV MCHC RDW INR 1.2 H APTT 21.1 L Chloride Carbon Dioxide BUN Creatinine POC Glucose (mg/dL) 110 H Albumin Stool Occult Blood Crossmatch See Detail 07/30/17 07/30/17 07/30/17 07:49 08:07 08:07 RBC 2.43 L Hgb 7.1 L D Hct 23.3 L MCV MCHC 30.7 L RDW 18.8 H INR APTT Chloride 113 H Carbon Dioxide 19 L BUN 26 H Creatinine 1.20 H POC Glucose (mg/dL) 101 H Albumin Stool Occult Blood Crossmatch - Diagnostic Findings Chest x-ray: image reviewed Assessment and Plan Assessment: Impression: #1 Acute anemia in a patient with a known history of previous GI bleed and previous Clinton-en-Y gastric bypass surgery. Stool positive for occult blood. Initial hemoglobin 4.5. She is status post 3 units of packed red blood cells transfusions. Current hemoglobin 7.1. The plan is for upper and lower endoscopy on 08/01/2017. A computed tomography scan of the abdomen with oral contrast will be obtained today. 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 Currently on Bactrim and Levaquin #3 History of DVT, anticoagulated with L Aquinas. #4 History of morbid obesity status post Clinton-en-Y procedure with previous Lizzy filter placement. #5 Diabetes mellitus. #6 Hypertension. #7 Fibromyalgia. #8 Osteoarthritis with multiple orthopedic surgeries including bilateral hip replacements, left knee replacement. Foot drop. #9 History of obstructive sleep apnea not utilizing CPAP in the outpatient setting. #10 History of anxiety/depression. #11 Poor overall functional performance the above-mentioned multiple comorbidities. #12 [facility] resident. Plan: The patient was seen and evaluated by Dr. Wolff. Her chest x-ray labs were reviewed. She is stable from the pulmonary and critical care standpoint. She is status post 3 units packed red blood cell transfusions. Current hemoglobin 7.1. Hold anticoagulants for now. We will do a computed tomography scan of the abdomen to rule out any abnormalities or potential issues regarding previous Clinton-en-Y surgery. The plan is for also upper and lower endoscopy to be performed on 08/01/2017. She will be transferred out of the intensive care unit to the regular medical floor. We'll continue to monitor her hemoglobins. We'll continue to follow and make further recommendations based on her clinical status. I, the cosigning physician, have performed a history and physical examination on the patient. Lung sounds are clear. Maintaining good O2 saturations in the 90s on room air. I have discussed the assessment and plan of care with my nurse practitioner, Muriel Edmonds. I attest the above documented note as dictated by her. Time with Patient: Greater than 30
--- NOTE | 2017-07-30 10:46 | P.GSCN ---
History of Present Illness Consult date: 07/30/17 Reason for Consult: Anemia, epigastric pain History of present illness: This is a 66-year-old female who sees Dr. Gurrola as outpatient. Patient was admitted to the hospital with profound anemia. Her admitting hemoglobin was 4.5. Patient states his she has had trouble eating and has had complaints of epigastric pain for the last 3 or 4 months. She has a history of previous gastric bypass done many years ago. He states that she's had issues with anemia in the past. She denies any history of peptic ulcer disease. Past Medical History Past Medical History: Atrial Fibrillation, Diabetes Mellitus, Deep Vein Thrombosis (DVT), Fibromyalgia, GI Bleed, Hyperlipidemia, Hypertension, Pneumonia, Renal Disease, Skin Disorder Additional Past Medical History / Comment(s): Anemia, DVT left lower leg, dermatitis, gastric ulcer, chronic lower back pain, morbid obesity, severe sepsis w/ septic shock, SVT, DM type 2, hemorrhoids, cellulitis of left lower extremity, dysphagia, chronic kidney disease stage 3, hypernatremia, falls, metabolic encephalopathy, muscle weakness, pneumonia, sleep apnea, bilateral tinnitus, atrial fibrillation, UTI. Left eye contusion/left lower leg laceration - surgically repaired, Right heel pressure ulcer - healed, peripheral neuropathy (bilateral hands and feet), migraines, eczema, sinus problems, lower GI bleed. 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 Source:: Blood, left leg, sputum-MRSA; Urine-VRE Past Surgical History: Adenoidectomy, Bariatric Surgery, Cholecystectomy, Joint Replacement, Tonsillectomy, Tubal Ligation Additional Past Surgical History / Comment(s): Gastric bypass, Clinton-en-Y in 2003 , Lizzy filter placement in 2000, teeth extraction, colonoscopy, EGD, hemorrhoidectomy, panniculectomy, D&C, hystoscopy x 2, LT KNEE replaced 2005- MRSA infection-hardware removed and cemented then replaced again, L hip repair with screw and total R hip REPLACEMENT, bilateral heel spurs removed, bilateral carpal tunnel releases, D&Cs, infusaport insertion since removed. Past Anesthesia/Blood Transfusion Reactions: Blood Transfusion Reaction Additional Past Anesthesia/Blood Transfusion Reaction / Comm: Patient thinks she possibly had elevated temperatures r/t blood transfusion. Past Psychological History: Anxiety, Depression Additional Psychological History / Comment(s): Patient is now in extended care. No longer live independently. Does not have any significant family. Was a tobacco smoker stopping several years ago. She has history of smoking 1.5 pack per day for 27 years and quit in 1993. She drinks alcohol rarely. 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 No animal exposures. Smoking Status: Former smoker Past Alcohol Use History: None Reported Additional Past Alcohol Use History / Comment(s): She has history of smoking 2 packs per day for 27 years and quit in 1993. She drinks alcohol rarely. 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 Past Drug Use History: None Reported Additional Drug Use History / Comment(s): . - Past Family History Father Family Medical History: Myocardial Infarction ([place]) Additional Family Medical History / Comment(s): AT AGE 46-[place] Mother Family Medical History: Diabetes Mellitus Additional Family Medical History / Comment(s): AT AGE 66 FROM COMPLICATIONS FROM DM Sister(s) Family Medical History: Diabetes Mellitus Brother(s) Family Medical History: Diabetes Mellitus Daughter(s) Family Medical History: Cancer Son(s) Family Medical History: No Reported History Medications and Allergies Home Medications Medication Instructions Recorded Confirmed Type Atorvastatin [Lipitor] 40 mg PO HS 08/30/15 07/29/17 History Allopurinol [Zyloprim] 100 mg PO BID 05/21/16 07/29/17 History Cholecalciferol [Vitamin D3] 1,000 unit PO HS 06/29/16 07/29/17 History Ferrous Sulfate [Iron (65 MG 650 mg PO HS 06/29/16 07/29/17 History Elemental)] Magnesium Hydroxide [Milk of 2,400 mg PO DAILY PRN 06/29/16 07/29/17 History Magnesia] Polyethylene Glycol 3350 [Miralax] 17 gm PO DAILY 06/29/16 07/29/17 History Bisacodyl [Dulcolax] 10 mg PO DAILY PRN 01/26/17 07/29/17 History L.acidoph,Paracasei, B.lactis 2 cap PO HS 02/20/17 07/29/17 History [Probiotic] Multivitamins, Thera [Multivitamin 1 tab PO DAILY 02/20/17 07/29/17 History (formulary)] Melatonin 3 mg PO HS 03/23/17 07/29/17 History Menthol/Zinc Oxide [Calmoseptine 1 applic TOPICAL TID 03/23/17 07/29/17 History Ointment] Potassium Chloride ER [K-Dur 20] 20 meq PO HS 03/23/17 07/29/17 History Aspirin 81 mg PO HS 04/20/17 07/29/17 History Escitalopram [Lexapro] 10 mg PO DAILY 04/20/17 07/29/17 History Omeprazole 20 mg PO DAILY 04/20/17 07/29/17 History metFORMIN HCL [Glucophage] 500 mg PO BID 05/19/17 07/29/17 History oxyCODONE-APAP 7.5-325MG [Percocet 1 tab PO Q4H PRN 05/19/17 07/29/17 History 7.5-325 mg] Ipratropium-Albuterol Nebulize 3 ml INHALATION RT-QID PRN 05/22/17 07/29/17 History [Duoneb 0.5 mg-3 mg/3 ml Soln] Mylanta Suspension 200-200-20 30 ml PO Q4H PRN 05/22/17 07/29/17 History Sennosides [Senokot] 8.6 mg PO HS 05/22/17 07/29/17 History amLODIPine [Norvasc] 5 mg PO DAILY 05/22/17 07/29/17 History oxyCODONE HCL [OxyCONTIN] 10 mg PO BID 05/22/17 07/29/17 History ALPRAZolam [Xanax] 0.25 mg PO BID PRN #60 tab 05/31/17 07/29/17 Rx Ibuprofen [Motrin] 400 mg PO Q6HR PRN tab 05/31/17 07/29/17 Rx Acetaminophen Tab [Tylenol] 650 mg PO Q4H PRN 07/29/17 07/29/17 History Apixaban [Eliquis] 2.5 mg PO DIRECTED 07/29/17 07/29/17 History Gentamicin Sulfate [Gentamicin 1 applic TOPICAL Q8H 07/29/17 07/29/17 History Sulfate 0.1%] Levofloxacin [Levaquin] 500 mg PO DAILY 07/29/17 07/29/17 History Rivaroxaban [Xarelto] 20 mg PO DAILY 07/29/17 07/29/17 History Sulfamethox-Tmp 800-160Mg [Bactrim 1 tab PO Q12HR 07/29/17 07/29/17 History DS 800-160 mg] Allergies Allergy/AdvReac Type Severity Reaction Status Date / Time adhesive tape Allergy Severe Rash/Hives Verified 07/29/17 19:21 cephalexin monohydrate Allergy Severe Rash/Hives Verified 07/29/17 19:21 [From Keflex] influenza virus vaccine, Allergy Severe Anaphylaxis Verified 07/29/17 19:21 specific [influenza virus vacc,specific] latex Allergy Severe Rash/Hives Verified 07/29/17 19:21 peanut Allergy Severe Anaphylaxis Verified 07/29/17 19:21 Penicillins Allergy Severe Swelling Verified 07/29/17 19:21 tetanus toxoid, adsorbed Allergy Intermediate Rash/Hives Verified 07/29/17 19:21 Influenza Virus Vaccines Allergy Anaphylaxis Verified 07/29/17 19:21 Surgical - Exam Vital Signs Temp Pulse Resp BP Pulse Ox 98.8 F 87 18 132/78 97 07/29/17 19:00 07/29/17 19:00 07/29/17 19:00 07/29/17 19:00 07/29/17 19:00 - General well developed, no distress - Eyes PERRL - ENT normal pinna - Neck no masses - Abdomen Well-healed midline incision Abdomen: soft, non tender Results - Labs 07/30/17 08:07 07/30/17 08:07 Abnormal Lab Results - Last 24 Hours (Table) 07/29/17 07/29/17 07/29/17 Range/Units 19:45 19:45 19:45 RBC 1.59 L (3.80-5.40) m/uL Hgb 4.5 L* D (11.4-16.0) gm/dL Hct 16.0 L* (34.0-46.0) % MCV 100.6 H (80.0-100.0) fL MCHC 28.2 L (31.0-37.0) g/dL RDW 20.9 H (11.5-15.5) % INR (<1.2) APTT (22.0-30.0) sec Chloride 111 H (98-107) mmol/L Carbon Dioxide 18 L (22-30) mmol/L BUN 31 H (7-17) mg/dL Creatinine 1.24 H (0.52-1.04) mg/dL POC Glucose (mg/dL) (75-99) mg/dL Albumin 2.8 L (3.5-5.0) g/dL Stool Occult Blood Positive H (Negative) Crossmatch 07/29/17 07/29/17 07/29/17 Range/Units 19:45 19:45 23:19 RBC (3.80-5.40) m/uL Hgb (11.4-16.0) gm/dL Hct (34.0-46.0) % MCV (80.0-100.0) fL MCHC (31.0-37.0) g/dL RDW (11.5-15.5) % INR 1.2 H (<1.2) APTT 21.1 L (22.0-30.0) sec Chloride (98-107) mmol/L Carbon Dioxide (22-30) mmol/L BUN (7-17) mg/dL Creatinine (0.52-1.04) mg/dL POC Glucose (mg/dL) 110 H (75-99) mg/dL Albumin (3.5-5.0) g/dL Stool Occult Blood (Negative) Crossmatch See Detail 07/30/17 07/30/17 07/30/17 Range/Units 07:49 08:07 08:07 RBC 2.43 L (3.80-5.40) m/uL Hgb 7.1 L D (11.4-16.0) gm/dL Hct 23.3 L (34.0-46.0) % MCV (80.0-100.0) fL MCHC 30.7 L (31.0-37.0) g/dL RDW 18.8 H (11.5-15.5) % INR (<1.2) APTT (22.0-30.0) sec Chloride 113 H (98-107) mmol/L Carbon Dioxide 19 L (22-30) mmol/L BUN 26 H (7-17) mg/dL Creatinine 1.20 H (0.52-1.04) mg/dL POC Glucose (mg/dL) 101 H (75-99) mg/dL Albumin (3.5-5.0) g/dL Stool Occult Blood (Negative) Crossmatch Diabetes panel 07/29/17 07/30/17 Range/Units 19:45 08:07 Sodium 139 140 (137-145) mmol/L Potassium 4.8 4.6 (3.5-5.1) mmol/L Chloride 111 H 113 H (98-107) mmol/L Carbon Dioxide 18 L 19 L (22-30) mmol/L BUN 31 H 26 H (7-17) mg/dL Creatinine 1.24 H 1.20 H (0.52-1.04) mg/dL Glucose 92 94 (74-99) mg/dL Calcium 8.9 8.5 (8.4-10.2) mg/dL AST 23 (14-36) U/L ALT 33 (9-52) U/L Alkaline Phosphatase 119 (38-126) U/L Total Protein 6.5 (6.3-8.2) g/dL Albumin 2.8 L (3.5-5.0) g/dL Calcium panel 07/29/17 07/30/17 Range/Units 19:45 08:07 Calcium 8.9 8.5 (8.4-10.2) mg/dL Phosphorus 4.2 (2.5-4.5) mg/dL Albumin 2.8 L (3.5-5.0) g/dL Pituitary panel 07/29/17 07/30/17 Range/Units 19:45 08:07 Sodium 139 140 (137-145) mmol/L Potassium 4.8 4.6 (3.5-5.1) mmol/L Chloride 111 H 113 H (98-107) mmol/L Carbon Dioxide 18 L 19 L (22-30) mmol/L BUN 31 H 26 H (7-17) mg/dL Creatinine 1.24 H 1.20 H (0.52-1.04) mg/dL Glucose 92 94 (74-99) mg/dL Calcium 8.9 8.5 (8.4-10.2) mg/dL Adrenal panel 07/29/17 07/30/17 Range/Units 19:45 08:07 Sodium 139 140 (137-145) mmol/L Potassium 4.8 4.6 (3.5-5.1) mmol/L Chloride 111 H 113 H (98-107) mmol/L Carbon Dioxide 18 L 19 L (22-30) mmol/L BUN 31 H 26 H (7-17) mg/dL Creatinine 1.24 H 1.20 H (0.52-1.04) mg/dL Glucose 92 94 (74-99) mg/dL Calcium 8.9 8.5 (8.4-10.2) mg/dL Total Bilirubin 0.2 (0.2-1.3) mg/dL AST 23 (14-36) U/L ALT 33 (9-52) U/L Alkaline Phosphatase 119 (38-126) U/L Total Protein 6.5 (6.3-8.2) g/dL Albumin 2.8 L (3.5-5.0) g/dL Assessment and Plan Assessment: Anemia and epigastric dull pain. Patient will undergo computed tomography scan of the abdomen pelvis to help define her abdominal pain. She'll undergo bowel prep tomorrow and undergo upper and lower endoscopy on Tuesday.
[2017-07-30] MEDS: PANTOPRAZOLE 40 MG/10 ML VIAL IV SCH (10:50)
[2017-07-30] MEDS: IOHEXOL 350 MG/ML 25 ML BOTTLE (ORAL USE) PO PRN ×2 (10:54→12:16)
--- NOTE | 2017-07-30 11:40 | US ---
EXAMINATION TYPE: US venous doppler duplex LE DATE OF EXAM: 07/30/2017 11:29 AM COMPARISON: Previous study dated 09/01/2015. CLINICAL HISTORY: Rule out DVT. Bilateral leg pain, history of left leg DVT, exam done portable in U. SIDE PERFORMED: Bilateral TECHNIQUE: The lower extremity deep venous system is examined utilizing real time linear array sonog chelo with graded compression, doppler sonography and color-flow sonography. VESSELS IMAGED: External Iliac Vein (EIV) Common Femoral Vein Deep Femoral Vein Greater Saphenous Vein * Femoral Vein Popliteal Vein Small Saphenous Vein * Proximal Calf Veins (* superficial vessels) Difficult and limited study due to patient unable to move her legs and shadowing from calcified arter ies. Right Leg: Appears negative for DVT Left Leg: Positive for DVT from EIV through proximal calf veins showing some flow and partial compre ssion of veins IMPRESSION: 1. THIS EXAMINATION IS NEGATIVE FOR DVT IN THE RIGHT LEG. 2. THIS EXAMINATION IS POSITIVE FOR DVT WITHIN THE LEFT LEG.
[2017-07-30] MEDS: oxyCODONE ER 10 MG TAB.ER.12H PO SCH ×2 (11:53→20:25)
--- NOTE | 2017-07-30 14:06 | CT ---
EXAMINATION TYPE: CT abdomen pelvis w con DATE OF EXAM: 07/30/2017 HISTORY: GI bleed HISTORY: GI bleed REFERENCE: Previous study dated 02/25/2017. CT DLP: 1601.0 mGy Automated exposure control for dose reduction was used. TECHNIQUE: Helical acquisition through the abdomen and pelvis was obtained following the oral ingesti on of with Oral Contrast and following intravenous administration of 100 mL of Omnipaque 300. The les a was reformatted in axial, coronal and sagittal projections. FINDINGS: There is atelectasis in the dependent portions of the lung worse on the left than the righ t. There is a small, left pleural effusion. The heart is mildly enlarged. There is no pericardial flu id. There is coronary artery calcification. There is a moderate hiatal hernia present. Within the abdomen, the gallbladder has been removed. The liver and spleen are unremarkable. Both adrenal glands appear normal. Both kidneys demonstrate function. There is an 11 mm calculus in the lower pole of the right kidney a nd a second 3 mm calcification in the posterior middle pole calyx of the right kidney. The pancreas is poorly visualized. There is an inferior vena cava filter in place. There is moderate atheromatous calcification of the visualized arterial tree. There is a right hip prosthesis in place. There has been a dynamic hip pinning on the left. This is c ausing significant streak artifact through the pelvis. Limited views of the bladder are unremarkable. There is gaseous distention of the sigmoid colon the appendix is not visualized. Small bowel caliber is normal. There is no significant free fluid and there is no free air. There are metallic sutures in the rectus sheath. There is generalized anasarca. There is significant hypertrophic spondylosis and facet arthropathy within the spine. IMPRESSION: 1. MARKED GASEOUS DISTENTION OF THE SIGMOID COLON. 2. LEFT BASILAR ATELECTASIS OR CONSOLIDATION WITH AN ASSOCIATED SMALL EFFUSION. 3. MODERATE HIATAL HERNIA. 4. POOR VISUALIZATION OF THE PANCREAS. 5. RIGHT-SIDED NEPHROLITHIASIS. 6. GENERALIZED ANASARCA. 7. POSTSURGICAL CHANGE. 8. DEGENERATIVE CHANGES WITHIN THE SPINE.
[2017-07-30] MEDS ORDERED: FUROSEMIDE 10 MG/ML 2 ML VIAL IV ONE (15:24)
[2017-07-30 17:18] LABS: Glucose,Whole Blood 106 mg/dL (75-99)
--- NOTE | 2017-07-30 19:05 | PN ---
PROGRESS NOTE DATE OF SERVICE: 07/30/17 I am covering for Dr. Gurrola. This 66-year-old woman was admitted with significant anemia, had already 3 units transfusion. Hemoglobin is only 7.1. Patient is still complaining of tiredness and weakness. Patient still has significant symptomatic anemia. The patient is also evaluated by Dr. Goel. Apparently the patient had not had a detailed workup recently for the anemia. CT scan has been done showed marked distention of the sigmoid colon and left basilar atelectasis, moderate hiatal hernia, right-sided nephrolithiasis, postsurgical changes and DJD of the spine. A venous Doppler was also done showed which showed left leg DVT. PAST MEDICAL HISTORY: Reviewed. REVIEW OF SYSTEMS: Cardiovascular: No angina. Respiratory: As mentioned earlier. GI: As mentioned earlier. : No dysuria. Central nervous system: No numbness, weakness. MEDS: Current medications are reviewed include: 1. Tylenol 650 q.4h p.r.n. 2. Maalox q.4h p.r.n. 3. DuoNeb q.i.d. and p.r.n. 4. Zyloprim 100 mg p.o. b.i.d. 5. Xanax 0.5 b.i.d. 6. Norvasc 5 mg p.o. daily. 7. Lipitor 40 mg. 8. Dulcolax 10 mg p.o. daily. 9. Vitamin D3 1000 q.h.s. 10.Lexapro 10 mg p.o. 11.Iron sulfate 650 mg q.h.s. 12.Dilaudid 0.5 mg q.4h p.r.n. 13.NovoLog a.c. and at bedtime. 15.Levaquin 500 mg p.o. daily. 16.Melatonin 3 mg p.o. q.h.s. 17.Glucovance 500 mg p.o. b.i.d. 18.Multivitamins 1 p.o. daily. 19.Narcan 0.2 q.2h p.r.n. 20.Oxycodone. 21.Percocet p.r.n. 22.Protonix 40 mg IV b.i.d. 23.K-Dur 20 mEq p.o. daily. 24.Senokot 8.7 mg p.o. q.h.s. 25.Bactrim DS 1 p.o. b.i.d. PHYSICAL EXAM: Patient is alert, oriented x2. Pulse 80, blood pressure 120/60, respirations 16 , temp is normal. Pulse ox 100%. HEENT: Conjunctivae are pale. Oral mucosa moist. Neck is no jugular venous distention, no carotid bruit. No lymph node enlargement. Cardiovascular: S1, S2 muffled. Ejection systolic murmur. No S3, no S4. Respirations: Breath sounds diminished in the bases. A few scattered rhonchi and crackles. ABDOMEN: Soft. No mass palpable. Legs no edema. No swelling. Central nervous system: Diffusely weak. LAB STUDIES: WBC 4.4, hemoglobin 7.1, sodium 140, potassium 4.6, creatinine 1.2. Stool OB is positive. ASSESSMENT: 1. Anemia possibly acute on chronic gastrointestinal blood loss anemia. 2. Rule out nutritional component of anemia. 3. History of bariatric surgery. 4. Left leg deep vein thrombosis. 5. Increased creatinine with chronic kidney disease stage 3. 6. History of atrial fibrillation. 7. On Xarelto. 8. Fibromyalgia. 9. History of hypertension. 10.History hyperlipidemia. 11.History of sleep apnea. 12.History of deep vein thrombosis of the left leg. 13.History of dermatitis. 14.History of recent MRSA sepsis. 15.History of supraventricular tachycardia. 16.Diabetes type 2. 17.History of dysphagia. 18.History atrial fibrillation. 19.Right heel pressure ulcer. 20.History of bariatric surgery. 21.History of cholecystectomy. 22.History of degenerative joint disease. 23.History of gastric bypass, [place] En Y. 24.History of IVC filter. 25.Anxiety, depression. 26.History of gait dysfunction. 27.FULL CODE. RECOMMENDATIONS AND DISCUSSION: Recommend to continue current medications. Continue symptomatic treatment. Otherwise at this time I recommend to keep holding the anticoagulants. Otherwise continue the rest of the medication. CT scan noted. Possible endoscopes. Otherwise, also consider IVC filter because of the contraindication for active anticoagulation. We will closely monitor with Pulmonary and gastro and surgery. Further recommendations to follow. MMODL / IJN: [id number] / MTDD
[2017-07-30 19:31] LABS: Hemoglobin A1C 5.1 % (4.0-6.0)
[2017-07-30 20:18] LABS: Glucose,Whole Blood 152 mg/dL (75-99)
[2017-07-30] MEDS: ATORVASTATIN 40 MG TAB PO SCH (20:18)
[2017-07-30] MEDS: FERROUS SULFATE 325 MG TAB PO SCH (20:19)
[2017-07-30] MEDS: CHOLECALCIFEROL 1,000 UNIT TAB PO SCH (20:19)
[2017-07-30] MEDS: LACTOBACILLUS ACIDOPH & BULGAR 1 EACH PACKET PO SCH (20:19)
[2017-07-30] MEDS: MELATONIN 3 MG TABLET PO SCH (20:19)
[2017-07-30] MEDS: SENNOSIDES 8.6 MG TAB PO SCH (20:20)
[2017-07-30] MEDS: POTASSIUM CHLORIDE ER 20 MEQ TAB.ER PO SCH (20:20)
[2017-07-30 22:15] LABS: Anisocytosis Slight; Basophils % (A) 0 %; Eosinophils # (A) 0.1 k/uL (0-0.7); Eosinophils % (A) 1 %; HCT 26.1 % (34.0-46.0); HGB 8.4 gm/dL (11.4-16.0); Hypochromasia Slight; Lymphocytes # (A) 1.8 k/uL (1.0-4.8); Lymphocytes % (A) 35 %; MCH 30.1 pg (25.0-35.0); MCV 93.9 fL (80.0-100.0); Mean Platelet Volume 6.6; Monocytes # (A) 0.3 k/uL (0-1.0); Monocytes % (A) 5 %; Neutrophils # (A) 2.9 k/uL (1.3-7.7); Neutrophils % (A) 56 %; Platelet Count 330 k/uL (150-450); Poikilocytosis Moderate; RBC 2.78 m/uL (3.80-5.40); RDW 17.8 % (11.5-15.5); WBC 5.1 k/uL (3.8-10.6)
[2017-07-31] MEDS: HYDROmorphone 2 MG/ML 1 ML SYRINGE IVP PRN ×5 (00:09→20:26)
[2017-07-31] MEDS: GENTAMICIN 0.1% CREAM 15 GM TUBE TOPICAL SCH ×4 (00:10→20:25)
[2017-07-31 05:38] LABS: Anisocytosis Slight; Basophils % (A) 1 %; Eosinophils # (A) 0.1 k/uL (0-0.7); Eosinophils % (A) 3 %; HCT 28.7 % (34.0-46.0); HGB 8.9 gm/dL (11.4-16.0); Hypochromasia Moderate; Lymphocytes # (A) 1.7 k/uL (1.0-4.8); Lymphocytes % (A) 36 %; MCH 29.3 pg (25.0-35.0); MCHC 30.8 g/dL (31.0-37.0); MCV 94.9 fL (80.0-100.0); Macrocytosis Slight; Mean Platelet Volume 7.2; Monocytes # (A) 0.3 k/uL (0-1.0); Monocytes % (A) 6 %; Neutrophils # (A) 2.4 k/uL (1.3-7.7); Neutrophils % (A) 51 %; Platelet Count 321 k/uL (150-450); Poikilocytosis Slight; RBC 3.03 m/uL (3.80-5.40); RDW 18.9 % (11.5-15.5); WBC 4.8 k/uL (3.8-10.6)
[2017-07-31 05:55] LABS: Chloride 113 mmol/L (98-107); Glucose 89 mg/dL (74-99); Potassium 4.4 mmol/L (3.5-5.1)
[2017-07-31 05:56] LABS: Anion Gap 8 mmol/L; Blood Urea Nitrogen 19 mg/dL (7-17); Calcium 8.5 mg/dL (8.4-10.2); Carbon Dioxide 19 mmol/L (22-30); Magnesium 1.8 mg/dL (1.6-2.3); Phosphorus 3.6 mg/dL (2.5-4.5); Sodium 140 mmol/L (137-145)
[2017-07-31 07:04] LABS: Glucose,Whole Blood 99 mg/dL (75-99)
[2017-07-31] MEDS: INSULIN ASPART 100 UNIT/ML 1 ML 10 ML VIAL SQ SCH ×4 (08:13→22:09)
[2017-07-31] MEDS: amLODIPine 5 MG TAB PO SCH (08:42)
[2017-07-31] MEDS: ESCITALOPRAM 10 MG TAB PO SCH (08:43)
[2017-07-31] MEDS: PANTOPRAZOLE 40 MG/10 ML VIAL IV SCH (08:43)
[2017-07-31] MEDS: metFORMIN 500 MG TAB PO SCH ×2 (08:44→20:23)
[2017-07-31] MEDS: LEVOFLOXACIN 500 MG TAB PO SCH (08:44)
[2017-07-31] MEDS: ALLOPURINOL 100 MG TAB PO SCH ×2 (08:44→20:24)
[2017-07-31] MEDS: MULTIVITAMINS, THERA 1 EACH TAB PO SCH (08:44)
[2017-07-31] MEDS: SULFAMETHOX-TMP 800-160MG 1 EACH TAB PO SCH ×2 (08:44→20:23)
[2017-07-31] MEDS: oxyCODONE ER 10 MG TAB.ER.12H PO SCH ×2 (08:45→20:25)
--- NOTE | 2017-07-31 11:05 | P.PN ---
Progress Note - Text Progress Note Date: 07/31/17 Patient resting comfortably in her bed. She denies any active GI bleed. Her hemoglobin is 8.9. Computed tomography scan yesterday shows evidence of a hiatal hernia and gaseous distention of the sigmoid colon. On exam her vital signs are stable. Her abdomen is soft. There is no significant tenderness. Severe anemia, will perform upper and lower endoscopy in the a.m.
--- NOTE | 2017-07-31 11:24 | PN ---
PROGRESS NOTE Mrs. Lang is a 66-year-old female who presented with progressive fatigue, was noted to be severely anemic. She has history of DVT and has been anticoagulated. She has prior history of filter. She denies any symptoms of dizziness or palpitation. She continued to be in sinus mechanism. She has no evidence of significant arrhythmias. She is scheduled to undergo endoscopy tomorrow. She continues to be on amlodipine 5 mg daily, Lipitor 40 mg daily, metformin, potassium. PHYSICAL EXAMINATION: The blood pressure 113/50 with a heart rate 70. LUNGS: Clear. Heart regular rate and rhythm S1, S2. No S3. No rub appreciated with a systolic murmur. ABDOMEN: Soft and nontender. Positive bowel sounds. EXTREMITIES: With no edema on the right side and evidence of scabbing ulcer on the left lower extremity with venous stasis and 1+ edema. LAB DATA: Lab data revealed a hemoglobin of 8.9. Patient has received a total 4 units of transfusion. BUN and creatinine 19 and 1.1. IMPRESSION: 1. Gastrointestinal bleeding with severe anemia, scheduled for further workup. 2. History of DVT, has been anticoagulated. 3. History of urinary tract infection. 4. History of prior [place]-en-Y procedure and [place] filter. 5. Diabetes. 6. History of obstructive sleep apnea. RECOMMENDATION: From the cardiac standpoint, she is stable. I see no evidence of active cardiac disease. We will see her on an as-needed basis. Please feel free to call us for any questions. MMODL / IJN: [id number] /
[2017-07-31 12:02] LABS: Glucose,Whole Blood 105 mg/dL (75-99)
--- NOTE | 2017-07-31 15:23 | P.PN ---
Subjective Progress Note Date: 07/31/17 This is a pleasant 66-year-old female patient who follows with Dr. Gurrola as her primary care physician. She resides at the [facility]. She has a medical history of diabetes mellitus, deep vein thrombosis, fibromyalgia, GI bleed, hyperlipidemia, hypertension, previous morbid obesity status post Clinton-en -Y gastric bypass procedure, sepsis with septic shock, SVT, cellulitis of the left lower extremity, chronic kidney disease stage III, sleep apnea not on CPAP , atrial fibrillation. The patient also has a history of [place] filter placement. She is also anticoagulated on Elliquis. Previous MRSA, previous VRE , multiple orthopedic surgeries. She is wheelchair-bound. She was brought here to the emergency room after having outpatient labs that revealed a hemoglobin of 4.5. Hematocrit 16.0. MCV 100.6. Creatinine 1.20. She is seen today in consultation in the intensive care unit. She is awake and alert in no acute distress she is status post 3 units of packed red blood cell transfusions and her current hemoglobin is 7.1. She has had issues with some ongoing nausea and poor appetite prior to her arrival here. Her stools are positive for occult blood. She has no pulmonary complaints. She is maintaining good O2 saturations up to 100% on room air. She's been afebrile. She's been hemodynamically stable. Did not require any pressors. She is currently on Bactrim and Levaquin. She does have ongoing issues with the left lower extremity cellulitis. There is some scabbing wounds. On 07/31/2017, the patient is being seen in follow-up in the intensive care unit. She is currently off anticoagulants. Doppler of the lower extremities showed presence of a all DVT in the left lower extremity. Nevertheless the patient has an IVC filter in place. She'll be kept off anticoagulation for now till she is cleared by surgery. The patient will be having a EGD and colonoscopy tomorrow. CAT scan of the abdomen and pelvis was also completed. The patient has atelectatic cheese lung bases bilaterally left more than right. The patient has marked gaseous distention of the sigmoid colon. Moderate hiatal hernia. There is generalized anasarca. No other abnormalities seen. No evidence of any ongoing bleeding. Hemoglobin today is at 8.9. The patient will be transferred to a medical floor. Objective - Vital Signs Vital signs: Vital Signs Temp 98.6 F 07/31/17 08:00 Pulse 71 07/31/17 08:00 Resp 13 07/31/17 12:00 BP 107/53 07/31/17 08:00 Pulse Ox 90 L 07/31/17 08:00 Intake & Output 07/30/17 07/31/17 07/31/17 18:59 06:59 18:59 Intake Total 2170 1080 710 Output Total 0 0 Balance 2170 1080 710 Weight 86.3 kg 79.9 kg Intake: IV 220 100 Sodium Chloride 0.9% 1, 220 100 000 ml @ 20 mls/hr IV . Q24H [facility] Rx#:[id number] Oral 2170 550 300 Blood Product 0 310 310 Rc As-1 Unit 310 [id number] Rc As-1 Unit 0 310 [id number] Output: Urine 0 0 Other: Voiding Method Diaper Diaper Diaper # Voids 1 1 1 # Bowel Movements 1 - Exam Her head exam was generally normal. There was no scleral icterus or corneal arcus. Mucous membranes are moist. No thrush, goiter or neck masses. Lungs are clear anterior and posteriorly. No wheezing or rales noted. Cardiac exam reveals PMI to be normally situated in size. The rhythm was regular with no extrasystoles. First and second heart sounds are heard. Abdomen is obese soft slightly tender to palpation. Bowel sounds are present. There is no guarding or rigidity. Extremities have trace peripheral edema. There is scabbing ulcers of the left lower extremity. Evidence of chronic venous stasis. There is evidence of foot drop. No clubbing or cyanosis. Peripheral pulses are intact. - Labs CBC & Chem 7: 07/31/17 05:18 07/31/17 05:18 Labs: Abnormal Lab Results - Last 24 Hours (Table) 07/29/17 07/30/17 07/30/17 Range/Units 19:45 17:16 20:17 RBC (3.80-5.40) m/uL Hgb (11.4-16.0) gm/dL Hct (34.0-46.0) % MCHC (31.0-37.0) g/dL RDW (11.5-15.5) % Chloride (98-107) mmol/L Carbon Dioxide (22-30) mmol/L BUN (7-17) mg/dL Creatinine (0.52-1.04) mg/dL POC Glucose (mg/dL) 106 H 152 H (75-99) mg/dL Crossmatch See Detail 07/30/17 07/31/17 07/31/17 Range/Units 22:00 05:18 05:18 RBC 2.78 L 3.03 L (3.80-5.40) m/uL Hgb 8.4 L 8.9 L (11.4-16.0) gm/dL Hct 26.1 L 28.7 L (34.0-46.0) % MCHC 30.8 L (31.0-37.0) g/dL RDW 17.8 H 18.9 H (11.5-15.5) % Chloride 113 H (98-107) mmol/L Carbon Dioxide 19 L (22-30) mmol/L BUN 19 H (7-17) mg/dL Creatinine 1.10 H (0.52-1.04) mg/dL POC Glucose (mg/dL) (75-99) mg/dL Crossmatch 07/31/17 Range/Units 11:56 RBC (3.80-5.40) m/uL Hgb (11.4-16.0) gm/dL Hct (34.0-46.0) % MCHC (31.0-37.0) g/dL RDW (11.5-15.5) % Chloride (98-107) mmol/L Carbon Dioxide (22-30) mmol/L BUN (7-17) mg/dL Creatinine (0.52-1.04) mg/dL POC Glucose (mg/dL) 105 H (75-99) mg/dL Crossmatch Assessment and Plan Plan: Impression: #1 Acute anemia in a patient with a known history of previous GI bleed and previous Clinton-en-Y gastric bypass surgery. Stool positive for occult blood. Initial hemoglobin 4.5. She is status post 3 units of packed red blood cells transfusions. Current hemoglobin is at 8.9. The patient is not showing any evidence of bleeding. The patient is currently off anticoagulants. CAT scan of the abdomen and pelvis is nonspecific. 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 Currently on Bactrim and Levaquin #3 History of DVT, patient was receiving anticoagulation patient is currently off anticoagulants. She has an IVC filter in place. #4 History of morbid obesity status post [place]-en-Y procedure with previous [place] filter placement. #5 Diabetes mellitus. #6 Hypertension. #7 Fibromyalgia. #8 Osteoarthritis with multiple orthopedic surgeries including bilateral hip replacements, left knee replacement. Foot drop. #9 History of obstructive sleep apnea not utilizing CPAP in the outpatient setting. #10 History of anxiety/depression. #11 Poor overall functional performance the above-mentioned multiple comorbidities. #12 half-way resident. Plan Move the patient to a medical floor. EGD and colonoscopy tomorrow. Not that hemoglobin. In addition is stable for now. Hemoglobin stable. No evidence of any acute bleed
[2017-07-31 17:05] LABS: Glucose,Whole Blood 95 mg/dL (75-99)
[2017-07-31] MEDS: CHOLECALCIFEROL 1,000 UNIT TAB PO SCH (20:23)
[2017-07-31] MEDS: LACTOBACILLUS ACIDOPH & BULGAR 1 EACH PACKET PO SCH (20:23)
[2017-07-31] MEDS: MELATONIN 3 MG TABLET PO SCH (20:23)
[2017-07-31] MEDS: SENNOSIDES 8.6 MG TAB PO SCH ×2 (20:23→20:24)
[2017-07-31] MEDS: POTASSIUM CHLORIDE ER 20 MEQ TAB.ER PO SCH (20:24)
[2017-07-31] MEDS: FERROUS SULFATE 325 MG TAB PO SCH (20:24)
[2017-07-31] MEDS: ATORVASTATIN 40 MG TAB PO SCH (20:24)
[2017-07-31] MEDS: SODIUM CHLORIDE 0.9% 1,000 ML IV SCH (20:25)
[2017-07-31 21:08] LABS: Glucose,Whole Blood 131 mg/dL (75-99)
--- NOTE | 2017-07-31 21:33 | PN ---
PROGRESS NOTE I am covering for Dr. Gurrola. DATE OF SERVICE: 07/31/17 This 66-year-old woman was admitted with significant anemia, had 4 unit transfusions. The hemoglobin is currently at 8.9, the patient is complaining of tiredness weakness and Dr. Goel and Dr. Wolff and cardiology following the patient closely. Dr. Goel has ordered a CT scan which showed a hiatal hernia and as well as sigmoid colon. Endoscopies are being planned tomorrow. PAST MEDICAL HISTORY: Reviewed. REVIEW OF SYSTEMS: Cardiovascular: No angina. Respirations: As mentioned earlier. GI: As mentioned earlier. no dysuria. Central nervous system: No numbness, weakness. CURRENT MEDICATIONS ARE: Reviewed and include: 1. Tylenol 650 q.4h p.r.n. 2. Maalox q.4h p.r.n. 3. DuoNeb q.i.d. and p.r.n. 4. Zyloprim 100 mg p.o. b.i.d. 5. Xanax 0.5 b.i.d. 6. Norvasc 5 mg b.i.d. 7. Lipitor 40 mg q.h.s. 8. Dulcolax 10 mg daily. 9. Vitamin D3 1000 daily. 10.Lexapro 10 mg daily. 11.Iron sulfate 650 mg q.h.s. 12.Gentamicin. 13.Dilaudid 0.5 q.4h p.r.n. 14.NovoLog scale. 15.Lactinex 2 tabs q.h.s. 16.Levaquin 500 mg daily. 17.Milk of magnesia. 18.Melatonin 3 mg q.h.s. 19.Glucophage 500 mg b.i.d. 20.Multivitamins one p.o. daily. 21.Narcan. 22.OxyContin 10 mg b.i.d. 23.[place]. 24.Percocet 7.5 q.4h p.r.n. 25.Protonix 40 mg daily. 26.K-Dur 20 mEq p.o. 27.Bactrim DS 1 p.o. b.i.d. PHYSICAL EXAM: Patient is alert, oriented x3. Pulse 118/67. Blood pressure 118/67, respiration 18, temp 97.4, pulse ox 99% on room air. HEENT conjunctivae normal. Oral mucosa moist. Neck is no jugular venous distention. No carotid bruit. No lymph node enlargement. Cardiovascular: S1-S2 muffled. No S3, no S4. Respiratory: Breath sounds diminished in the bases. A few scattered rhonchi. No crackles. ABDOMEN: Soft. Mild diffuse distention. Legs no edema no swelling. NERVOUS SYSTEM: Higher functions as mentioned earlier. Moves all four limbs. No focal deficits. Lymphatics: No lymph nodes palpable in the neck, axillae or groin. SKIN: No ulcer, rash, bleeding. LABS: At this time shows WBC 4.8, hemoglobin is 8.9, sodium 140, potassium 4.4, creatinine is 1.10. ASSESSMENT: 1. Anemia possibly acute on chronic gastrointestinal blood loss anemia, status post multiple transfusions times four. 2. Rule out nutritional component of anemia. 3. History of bariatric surgery. 4. Left leg deep vein thrombosis. 5. Hiatal hernia and chronic distention on the CT scan. 6. Increased creatinine with chronic kidney disease stage III. 7. History of atrial fibrillation. 8. On Xarelto. 9. Fibromyalgia. 10.History of hypertension. 11.History of hyperlipidemia. 12.History of sleep apnea. 13.History of deep vein thrombosis of the left leg. 14.History of dermatitis. 15.History of recent MRSA sepsis. 16.History of supraventricular tachycardia. 17.Diabetes type 2. 18.History of dysphagia. 19.Right heel pressure ulcer history. 20.History of bariatric surgery. 21.History of cholecystectomy. 22.History of degenerative joint disease. 23.History of gastric bypass, [place]-en-Y. 24.History IVC filter. 25.Anxiety, depression. 26.History of gait dysfunction. 27.FULL CODE. RECOMMENDATIONS AND DISCUSSION: Continue current medications, symptomatic treatment. Hemoglobin appears to be stable after 4 units of transfusion, but however the patient will require extensive workup at this time. Initiate colonoscopy and endoscopies by Dr. Goel. Continue to monitor and otherwise further recommendations follow. Prognosis guarded. MMODL / IJN: [id number] / MTDD
[2017-08-01] MEDS: HYDROmorphone 2 MG/ML 1 ML SYRINGE IVP PRN ×5 (04:55→22:03)
[2017-08-01] MEDS: GENTAMICIN 0.1% CREAM 15 GM TUBE TOPICAL SCH ×3 (05:07→20:54)
[2017-08-01 07:17] LABS: Glucose,Whole Blood 106 mg/dL (75-99)
[2017-08-01] MEDS: INSULIN ASPART 100 UNIT/ML 1 ML 10 ML VIAL SQ SCH ×4 (08:02→20:50)
[2017-08-01 08:57] LABS: Anisocytosis Slight; Basophils % (A) 1 %; Eosinophils # (A) 0.2 k/uL (0-0.7); Eosinophils % (A) 4 %; HGB 8.7 gm/dL (11.4-16.0); Hypochromasia Marked; Lymphocytes # (A) 1.9 k/uL (1.0-4.8); Lymphocytes % (A) 38 %; MCH 29.8 pg (25.0-35.0); MCHC 30.2 g/dL (31.0-37.0); MCV 98.8 fL (80.0-100.0); Macrocytosis Slight; Mean Platelet Volume 7.1; Monocytes # (A) 0.2 k/uL (0-1.0); Monocytes % (A) 5 %; Neutrophils # (A) 2.5 k/uL (1.3-7.7); Neutrophils % (A) 51 %; Platelet Count 331 k/uL (150-450); Poikilocytosis Slight; RBC 2.93 m/uL (3.80-5.40); RDW 19.1 % (11.5-15.5); WBC 4.9 k/uL (3.8-10.6)
[2017-08-01] MEDS: LEVOFLOXACIN 500 MG TAB PO SCH (09:01)
[2017-08-01] MEDS: amLODIPine 5 MG TAB PO SCH (09:01)
[2017-08-01] MEDS: ESCITALOPRAM 10 MG TAB PO SCH (09:01)
[2017-08-01] MEDS: metFORMIN 500 MG TAB PO SCH ×2 (09:01→20:48)
[2017-08-01] MEDS: MULTIVITAMINS, THERA 1 EACH TAB PO SCH (09:02)
[2017-08-01] MEDS: ALLOPURINOL 100 MG TAB PO SCH ×2 (09:02→20:48)
[2017-08-01] MEDS: SULFAMETHOX-TMP 800-160MG 1 EACH TAB PO SCH ×2 (09:02→20:48)
[2017-08-01] MEDS: PANTOPRAZOLE 40 MG/10 ML VIAL IV SCH (09:02)
[2017-08-01 09:14] LABS: Anion Gap 10 mmol/L; Blood Urea Nitrogen 13 mg/dL (7-17); Calcium 9.1 mg/dL (8.4-10.2); Carbon Dioxide 18 mmol/L (22-30); Chloride 113 mmol/L (98-107); Glucose 84 mg/dL (74-99); Magnesium 1.7 mg/dL (1.6-2.3); Phosphorus 3.6 mg/dL (2.5-4.5); Potassium 4.4 mmol/L (3.5-5.1); Sodium 141 mmol/L (137-145)
[2017-08-01] MEDS ORDERED: IV FLUID CONTINUATION 1,000 ML IV ONE (10:16)
[2017-08-01] MEDS ORDERED: PROPOFOL 10 MG/ML 20 ML VIAL IV ONE (10:20)
--- NOTE | 2017-08-01 10:21 | CDI ---
Last Revision, June 2017 Documentation Clarification Form Date: 08/01/2017 10:12:00 AM From: Daysi Lindsey RN, CCDS Admit Date: 07/29/2017 8:56:00 PM Patient Name: Rain Lang Visit Number: [id number] ATTENTION: The Clinical Documentation Specialists (CDI) and [facility] Coding Staff appreciate your assistance in clarifying documentation. Please respond to the clarification below the line at the bottom and electronically sign. The CDI & [facility] Coding staff will review the response and follow-up if needed. Please note: Queries are made part of the Legal Health Record. If you have any questions, please contact the author of this message via ITS. Dr. Althea Millan Atrial fibrillation is documented though out the medical record and requires further specificity. History/Risk Factors: Atrial fib on Xarelto at home, DVT w/ IVC, hyperlipidemia, HTN, CKD stage 3, sleep apnea Clinical Indicators: EKG/telemetry: Atrial Fib Treatment: Consults: Cardiology Currently not on any Cardiac Medications and Anticoagulation is held d/t anemia In your professional opinion, can you please clarify the type of atrial fibrillation, if known? Chronic/Permanent Paroxysmal X Persistent Other, please specify Unable to determine Please continue to document in your progress notes and discharge summary in order to capture severity of illness and risk of mortality. Include clinical findings that support your diagnosis. MTDD
--- NOTE | 2017-08-01 10:36 | P.PN ---
Progress Note - Text Progress Note Date: 08/01/17 The patient underwent EGD. There is no incision any upper GI bleed. The patient has a large amount of rectal stool. She will receive clear liquids today and undergo bowel prep tomorrow with colonoscopy on Tuesday.
--- NOTE | 2017-08-01 10:36 | P.OP ---
Date of Procedure: 08/01/17 Preoperative Diagnosis: GI bleed Postoperative Diagnosis: Normal EGD status post [place]-en-Y gastric bypass without evidence of upper GI bleed Large amount of rectal stool Procedure(s) Performed: EGD Attempted colonoscopy Anesthesia: MAC Surgeon: Tavo Goel Pathology: none sent Condition: stable Disposition: PACU Description of Procedure: The patient's placed on the endoscopy table in the lateral position. She received IV sedation. The gastroscope placed oropharynx passed in the esophagus and stomach. The patient a previous [place]-en-Y gastric bypass. The gastric vessels patent. There is no evidence of marginal ulceration. The scope was then placed the jejunum and there is no unsteady obstruction. Scope was withdrawn. The stomach pouch appeared normal. The GE junction was at 47. The distal esophagus appeared normal. The proximal esophagus appeared normal. Scope was withdrawn for patient. Next digital rectal exam was performed which revealed a large amount of melanotic stool. The colonoscope was inserted patient rectum however due to the large amount stool it was impossible due to colonoscopy. This point the scope was withdrawn. The patient will be rescheduled for on Tuesday.
[2017-08-01] MEDS: oxyCODONE ER 10 MG TAB.ER.12H PO SCH ×3 (11:01→20:47)
[2017-08-01 12:21] LABS: Glucose,Whole Blood 96 mg/dL (75-99)
[2017-08-01] MEDS: oxyCODONE-APAP 7.5-325MG 1 EACH TAB PO PRN (16:45)
[2017-08-01 16:47] LABS: Glucose,Whole Blood 111 mg/dL (75-99)
--- NOTE | 2017-08-01 17:06 | P.PN ---
Subjective Progress Note Date: 08/01/17 Principal diagnosis: Acute anemia, positive occult stool, hemoglobin of 4.5, requiring transfusion of red blood cells This is a pleasant 66-year-old female patient who follows with Dr. Gurrola as her primary care physician. She resides at the [facility]. She has a medical history of diabetes mellitus, deep vein thrombosis, fibromyalgia, GI bleed, hyperlipidemia, hypertension, previous morbid obesity status post Clinton-en -Y gastric bypass procedure, sepsis with septic shock, SVT, cellulitis of the left lower extremity, chronic kidney disease stage III, sleep apnea not on CPAP , atrial fibrillation. The patient also has a history of Seymour filter placement. She is also anticoagulated on Elliquis. Previous MRSA, previous VRE , multiple orthopedic surgeries. She is wheelchair-bound. She was brought here to the emergency room after having outpatient labs that revealed a hemoglobin of 4.5. Hematocrit 16.0. MCV 100.6. Creatinine 1.20. She is seen today in consultation in the intensive care unit. She is awake and alert in no acute distress she is status post 3 units of packed red blood cell transfusions and her current hemoglobin is 7.1. She has had issues with some ongoing nausea and poor appetite prior to her arrival here. Her stools are positive for occult blood. She has no pulmonary complaints. She is maintaining good O2 saturations up to 100% on room air. She's been afebrile. She's been hemodynamically stable. Did not require any pressors. She is currently on Bactrim and Levaquin. She does have ongoing issues with the left lower extremity cellulitis. There is some scabbing wounds. On 07/31/2017, the patient is being seen in follow-up in the intensive care unit. She is currently off anticoagulants. Doppler of the lower extremities showed presence of a all DVT in the left lower extremity. Nevertheless the patient has an IVC filter in place. She'll be kept off anticoagulation for now till she is cleared by surgery. The patient will be having a EGD and colonoscopy tomorrow. CAT scan of the abdomen and pelvis was also completed. The patient has atelectatic cheese lung bases bilaterally left more than right. The patient has marked gaseous distention of the sigmoid colon. Moderate hiatal hernia. There is generalized anasarca. No other abnormalities seen. No evidence of any ongoing bleeding. Hemoglobin today is at 8.9. The patient will be transferred to a medical floor. On 08/01/2017 patient seen in follow-up on medical surgical floor. She remains comfortable, in no acute distress. Hemodynamically stable. Afebrile, on room air with O2 sat at 97-99%. Denies any specific complaints, denies any shortness of breath. Patient received 3 units of PRBCs since admission, current hemoglobin is 8.7, no further GI bleeding was noted. Patient underwent EGD by Dr. Goel this morning, which showed no evidence of active bleeding. Colonoscopy is scheduled for this Tuesday, during a digital rectal exam by the surgeon a large amount of melanotic stool was noted. Patient is still off any anticoagulation. She has been tolerating full liquid diet. Objective - Vital Signs Vital signs: Vital Signs Temp 98.2 F 08/01/17 15:35 Pulse 69 08/01/17 15:35 Resp 16 08/01/17 15:35 BP 114/59 08/01/17 15:35 Pulse Ox 99 08/01/17 15:35 Intake & Output 07/31/17 08/01/17 08/01/17 18:59 06:59 18:59 Intake Total 710 50 Balance 710 50 Intake: IV 100 50 Sodium Chloride 0.9% 1, 100 000 ml @ 20 mls/hr IV . Q24H [facility] Rx#:[id number] Oral 300 Blood Product 310 Rc As-1 Unit 310 [id number] Other: Voiding Method Diaper Diaper # Voids 1 1 # Bowel Movements 1 - Exam GENERAL EXAM: Alert, active, comfortable in no apparent distress. HEAD: Normocephalic/atraumatic. EYES: Normal reaction of pupils, equal size. Conjunctiva pink, sclera white. NOSE: Clear with pink turbinates. THROAT: No erythema or exudates. NECK: No masses, no JVD, no thyroid enlargement, no adenopathy. CHEST: No chest wall deformity. Symmetrical expansion. LUNGS: Equal air entry with no crackles, wheeze, rhonchi or dullness. CVS: Regular rate and rhythm, normal S1 and S2, no gallops, no murmurs, no rubs ABDOMEN: Soft, nontender. No hepatosplenomegaly, normal bowel sounds, no guarding or rigidity. EXTREMITIES: No clubbing, no edema, no cyanosis, 2+ pulses and upper and lower extremities. MUSCULOSKELETAL: Muscle strength and tone normal. SPINE: No scoliosis or deformity SKIN: No rashes CENTRAL NERVOUS SYSTEM: Alert and oriented -3. No focal deficits, tone is normal in all 4 extremities. PSYCHIATRIC: Alert and oriented -3. Appropriate affect. Intact judgment and insight. - Labs CBC & Chem 7: 08/01/17 08:40 08/01/17 08:40 Labs: Abnormal Lab Results - Last 24 Hours (Table) 07/31/17 08/01/17 08/01/17 Range/Units 20:47 07:11 08:40 RBC 2.93 L (3.80-5.40) m/uL Hgb 8.7 L (11.4-16.0) gm/dL Hct 29.0 L (34.0-46.0) % MCHC 30.2 L (31.0-37.0) g/dL RDW 19.1 H (11.5-15.5) % Chloride (98-107) mmol/L Carbon Dioxide (22-30) mmol/L POC Glucose (mg/dL) 131 H 106 H (75-99) mg/dL 08/01/17 08/01/17 Range/Units 08:40 16:45 RBC (3.80-5.40) m/uL Hgb (11.4-16.0) gm/dL Hct (34.0-46.0) % MCHC (31.0-37.0) g/dL RDW (11.5-15.5) % Chloride 113 H (98-107) mmol/L Carbon Dioxide 18 L (22-30) mmol/L POC Glucose (mg/dL) 111 H (75-99) mg/dL Assessment and Plan Plan: Impression: #1 Acute anemia in a patient with a known history of previous GI bleed and previous Clinton-en-Y gastric bypass surgery. Stool positive for occult blood. Initial hemoglobin 4.5. She is status post 3 units of packed red blood cells transfusions. Current hemoglobin is at 8.7. The patient is not showing any evidence of bleeding. The patient is currently off anticoagulants. CAT scan of the abdomen and pelvis is nonspecific. Patient underwent EGD today on 2017 which did not show any evidence of active bleeding. Patient will proceed with colonoscopy this Tuesday and 08/03/[address] 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 Currently on Bactrim and Levaquin #3 History of DVT, patient was receiving anticoagulation patient is currently off anticoagulants. She has an IVC filter in place. #4 History of morbid obesity status post Clinton-en-Y procedure with previous Lizzy filter placement. #5 Diabetes mellitus. #6 Hypertension. #7 Fibromyalgia. #8 Osteoarthritis with multiple orthopedic surgeries including bilateral hip replacements, left knee replacement. Foot drop. #9 History of obstructive sleep apnea not utilizing CPAP in the outpatient setting. #10 History of anxiety/depression. #11 Poor overall functional performance the above-mentioned multiple comorbidities. #12 [facility] resident. Plan EGD today on 08/01/2017 did not show any evidence of active bleeding, large amount of melanotic stool was noted upon rectal digital exam by the surgeon. The plan is to proceed with colonoscopy on Tuesday, patient remains hemodynamically stable. Tolerating full liquid diet. Denies any worsening shortness of breath, remains on room air, with O2 sat at 97-99%. Denies any pulmonary complaints. At this point we will sign off, and see the patient on as -needed basis. Thank you for this consultation. I performed a history & physical examination of the patient and discussed their management with my nurse practitioner, Jenny Ness. I reviewed the nurse practitioner's note and agree with the documented findings and plan of care. Lung sounds are clear. The findings and the impression was discussed with the patient. I attest to the documentation by the nurse practitioner. Time with Patient: Less than 30
[2017-08-01] MEDS: FERROUS SULFATE 325 MG TAB PO SCH (20:48)
[2017-08-01] MEDS: POTASSIUM CHLORIDE ER 20 MEQ TAB.ER PO SCH (20:48)
[2017-08-01] MEDS: ATORVASTATIN 40 MG TAB PO SCH (20:48)
[2017-08-01] MEDS: MELATONIN 3 MG TABLET PO SCH (20:48)
[2017-08-01 20:51] LABS: Glucose,Whole Blood 114 mg/dL (75-99)
[2017-08-01] MEDS: SODIUM CHLORIDE 0.9% 1,000 ML IV SCH (20:57)
[2017-08-01] MEDS: CHOLECALCIFEROL 1,000 UNIT TAB PO SCH (21:21)
[2017-08-01] MEDS: LACTOBACILLUS ACIDOPH & BULGAR 1 EACH PACKET PO SCH (21:21)
[2017-08-02] MEDS: HYDROmorphone 2 MG/ML 1 ML SYRINGE IVP PRN ×5 (06:02→22:46)
[2017-08-02] MEDS: GENTAMICIN 0.1% CREAM 15 GM TUBE TOPICAL SCH ×3 (06:05→21:30)
[2017-08-02 07:25] LABS: Glucose,Whole Blood 104 mg/dL (75-99)
[2017-08-02] MEDS: INSULIN ASPART 100 UNIT/ML 1 ML 10 ML VIAL SQ SCH ×4 (07:38→21:29)
--- NOTE | 2017-08-02 07:53 | P.PN ---
Subjective Progress Note Date: 08/02/17 Principal diagnosis: Anemia/continuing care. This is a continue present 66-year-old white female admitted for anemia. She's had history of anemia in the past with transfusions. She has an underlying history of diabetes with history of left lower 70 DVT and element of cellulitis. Objective - Vital Signs Vital signs: Vital Signs Temp 97.8 F 08/02/17 07:00 Pulse 72 08/02/17 07:00 Resp 18 08/02/17 07:00 BP 103/57 08/02/17 07:00 Pulse Ox 98 08/02/17 07:00 Intake & Output 08/01/17 08/02/17 08/02/17 18:59 06:59 18:59 Intake Total 50 500 Output Total 1 Balance 50 499 Intake: IV 50 Oral 500 Output: Stool 1 Other: Voiding Method Diaper # Voids 1 1 # Bowel Movements 1 1 - Constitutional General appearance: Present: average body habitus - EENT Eyes: Absent: abnormal pupil - Neck Neck: Absent: lymphadenopathy - Respiratory Respiratory: bilateral: CTA - Cardiovascular Rhythm: regular Heart sounds: normal: S1, S2 - Gastrointestinal General gastrointestinal: Present: soft. Absent: tenderness - Labs CBC & Chem 7: 08/01/17 08:40 08/01/17 08:40 Labs: Abnormal Lab Results - Last 24 Hours (Table) 08/01/17 08/01/17 08/01/17 Range/Units 08:40 08:40 16:45 RBC 2.93 L (3.80-5.40) m/uL Hgb 8.7 L (11.4-16.0) gm/dL Hct 29.0 L (34.0-46.0) % MCHC 30.2 L (31.0-37.0) g/dL RDW 19.1 H (11.5-15.5) % Chloride 113 H (98-107) mmol/L Carbon Dioxide 18 L (22-30) mmol/L POC Glucose (mg/dL) 111 H (75-99) mg/dL 08/01/17 08/02/17 Range/Units 20:34 07:17 RBC (3.80-5.40) m/uL Hgb (11.4-16.0) gm/dL Hct (34.0-46.0) % MCHC (31.0-37.0) g/dL RDW (11.5-15.5) % Chloride (98-107) mmol/L Carbon Dioxide (22-30) mmol/L POC Glucose (mg/dL) 114 H 104 H (75-99) mg/dL Assessment and Plan (1) Anemia Current Visit: Yes Status: Acute Code(s): D64.9 - ANEMIA, UNSPECIFIED SNOMED Code(s): 282874688 (2) GI bleed Current Visit: Yes Status: Acute Code(s): K92.2 - GASTROINTESTINAL HEMORRHAGE, UNSPECIFIED SNOMED Code(s): 09883791 (3) Cellulitis of leg Current Visit: No Status: Acute Code(s): L03.119 - CELLULITIS OF UNSPECIFIED PART OF LIMB SNOMED Code(s): 594229367 Plan: Await colonoscopy in the a.m. Check CBC and CMP in a.m. We'll continue to follow. Patient seems stable today.
[2017-08-02 08:48] LABS: Anisocytosis Slight; Basophils % (A) 1 %; Eosinophils # (A) 0.2 k/uL (0-0.7); Eosinophils % (A) 5 %; HCT 28.2 % (34.0-46.0); HGB 8.6 gm/dL (11.4-16.0); Hypochromasia Moderate; Lymphocytes # (A) 1.5 k/uL (1.0-4.8); Lymphocytes % (A) 29 %; MCH 29.6 pg (25.0-35.0); MCHC 30.7 g/dL (31.0-37.0); MCV 96.5 fL (80.0-100.0); Macrocytosis Slight; Mean Platelet Volume 7.1; Monocytes # (A) 0.2 k/uL (0-1.0); Monocytes % (A) 5 %; Neutrophils % (A) 59 %; Platelet Count 309 k/uL (150-450); Poikilocytosis Slight; RBC 2.92 m/uL (3.80-5.40); RDW 19.1 % (11.5-15.5)
[2017-08-02] MEDS: oxyCODONE ER 10 MG TAB.ER.12H PO SCH ×2 (08:57→21:28)
[2017-08-02] MEDS: amLODIPine 5 MG TAB PO SCH (08:58)
[2017-08-02] MEDS: ALLOPURINOL 100 MG TAB PO SCH ×2 (08:58→21:28)
[2017-08-02] MEDS: ESCITALOPRAM 10 MG TAB PO SCH (08:59)
[2017-08-02] MEDS: LEVOFLOXACIN 500 MG TAB PO SCH (08:59)
[2017-08-02] MEDS: metFORMIN 500 MG TAB PO SCH ×3 (08:59→22:46)
[2017-08-02] MEDS: PANTOPRAZOLE 40 MG/10 ML VIAL IV SCH (09:00)
[2017-08-02] MEDS: MULTIVITAMINS, THERA 1 EACH TAB PO SCH (09:00)
[2017-08-02] MEDS: SULFAMETHOX-TMP 800-160MG 1 EACH TAB PO SCH ×2 (09:00→21:28)
[2017-08-02 09:04] LABS: Anion Gap 10 mmol/L; Blood Urea Nitrogen 11 mg/dL (7-17); Calcium 8.9 mg/dL (8.4-10.2); Carbon Dioxide 20 mmol/L (22-30); Chloride 112 mmol/L (98-107); Glucose 95 mg/dL (74-99); Magnesium 1.7 mg/dL (1.6-2.3); Phosphorus 3.5 mg/dL (2.5-4.5); Potassium 4.5 mmol/L (3.5-5.1); Sodium 142 mmol/L (137-145)
--- NOTE | 2017-08-02 10:44 | PN ---
PROGRESS NOTE DATE OF SERVICE: 08/01/2017 I am covering for Dr. Gurrola. This 66-year-old woman with a past medical history medical of multiple medical problems, was admitted with significant anemia. Patient has multiple transfusions at this time. The patient underwent EGD which showed the patient also had attempted colonoscopy which was not completed because of the poor preparation. No chest pain. No palpitations. No fever. EXAM: Alert and oriented x3. Pulse 69, blood pressure 114/79, respirations 16, temperature 98.2, pulse ox 99% on room air. HEENT: Conjunctivae normal. Neck is no jugular venous distention. Cardiovascular: S1, S2 muffled. Respirations: Breath sounds diminished in the bases. No rhonchi and no crackles. Abdomen is soft, nontender. Central nervous system: No focal deficits. LABS: Hemoglobin 8.7. ASSESSMENT: 1. Anemia possibly acute on chronic gastrointestinal blood loss anemia, status post multiple transfusions x4. 2. Rule out nutritional component anemia. 3. History of bariatric surgery. Clinton-en-Y gastric bypass. 4. Left leg deep vein thrombosis history. 5. Hiatal hernia and colonic distention in the CT scan. 6. Increased creatinine with chronic kidney disease stage 3. 7. History of atrial ablation on Xarelto. 8. Fibromyalgia. 9. History of hypertension. 10.Hyperlipidemia. 11.Sleep apnea. 12.History of deep vein thrombosis of the left leg. 13.History of dermatitis. 14.History of recent MRSA sepsis. 15.History of supraventricular tachycardia. 16.History of diabetes type 2. 17.History of dysphagia. 18.Right heel pressure ulcer history. 19.History of bariatric surgery. 20.History of cholecystectomy. 21.History of degenerative joint disease. 22.History of IVC filter. 23.History anxiety, depression. 24.History of gait dysfunction. 25.FULL CODE. RECOMMENDATIONS AND DISCUSSION: Recommend to continue current medications. Continue to monitor, symptomatic treatment. Otherwise, attempt repeat colonoscopy per surgery. Monitor CBC closely. Dr. Gurrola will follow. MMODL / IJN: [id number] / MTDD
--- NOTE | 2017-08-02 11:04 | P.PN ---
Subjective Progress Note Date: 08/02/17 66-year-old female seen and examined area sitting up in bed. Patient is scheduled tomorrow for a colonoscopy bowel prep to be started at noon today. Anticoagulation are on hold. Hemoglobin this morning 8.6 patient does report having abdominal cramping. Patient initially was admitted with significant symptomatic anemia has had 4 blood transfusions given with a hemoglobin monitored closely patient is aware of the plan of care for the colonoscopy to be scheduled tomorrow morning as part of a workup for the anemia Objective - Vital Signs Vital signs: Vital Signs Temp 97.8 F 08/02/17 07:00 Pulse 72 08/02/17 07:00 Resp 18 08/02/17 07:00 BP 103/57 08/02/17 07:00 Pulse Ox 98 08/02/17 07:00 Intake & Output 08/01/17 08/02/17 08/02/17 18:59 06:59 18:59 Intake Total 50 500 Output Total 1 Balance 50 499 Intake: IV 50 Oral 500 Output: Stool 1 Other: Voiding Method Diaper # Voids 1 1 # Bowel Movements 1 1 - Exam Physical exam 66-year-old female resting in bed appears in no acute distress Lungs diminished at the bases otherwise adequate air movement Heart S1-S2 audible regular Abdomen soft no facial grimacing with palpitation to the abdominal wall bowel tones present no nausea no vomiting tolerating clear liquid diet reports having diffuse abdominal tenderness no stool Extremities no edema noted - Labs CBC & Chem 7: 08/02/17 08:10 08/02/17 08:10 Labs: Abnormal Lab Results - Last 24 Hours (Table) 08/01/17 08/01/17 08/02/17 Range/Units 16:45 20:34 07:17 RBC (3.80-5.40) m/uL Hgb (11.4-16.0) gm/dL Hct (34.0-46.0) % MCHC (31.0-37.0) g/dL RDW (11.5-15.5) % Chloride (98-107) mmol/L Carbon Dioxide (22-30) mmol/L POC Glucose (mg/dL) 111 H 114 H 104 H (75-99) mg/dL 08/02/17 08/02/17 Range/Units 08:10 08:10 RBC 2.92 L (3.80-5.40) m/uL Hgb 8.6 L (11.4-16.0) gm/dL Hct 28.2 L (34.0-46.0) % MCHC 30.7 L (31.0-37.0) g/dL RDW 19.1 H (11.5-15.5) % Chloride 112 H (98-107) mmol/L Carbon Dioxide 20 L (22-30) mmol/L POC Glucose (mg/dL) (75-99) mg/dL Assessment and Plan Assessment: Impression Present on admission acute blood loss anemia suspect due to GI bleed status post 4 units packed red blood cells History of bariatric weight loss surgery gastric bypass Status post EGD August 01 no acute findings no evidence of an upper GI bleed Computed tomography scan abdomen pelvis evidence of a hiatal hernia Obstructive sleep apnea not utilizing CPAP in the outpatient setting History of a DVT on anticoagulation with an IVC filter in place Previous loreta en y gastric bypass surgery Plan Bowel prep to start at noon today with the plan for the patient undergo colonoscopy in the morning Nothing by mouth after midnight for colonoscopy Further surgical recommendations pending The above impression and plan of care have been discussed and directed by signing physician. Judith Dotson nurse practitioner acting as scribe for signing physician.
[2017-08-02 11:58] LABS: Glucose,Whole Blood 122 mg/dL (75-99)
[2017-08-02] MEDS ORDERED: PEG 3350-NA SULF,BICARB,CL/KCL 4,000 ML BOTTLE PO ONE (12:00)
[2017-08-02] MEDS: oxyCODONE-APAP 7.5-325MG 1 EACH TAB PO PRN ×3 (12:14→20:22)
[2017-08-02 17:39] LABS: Glucose,Whole Blood 63 mg/dL (75-99)
[2017-08-02 17:39] LABS: Glucose,Whole Blood 69 mg/dL (75-99)
[2017-08-02 17:40] LABS: Glucose,Whole Blood 97 mg/dL (75-99)
[2017-08-02 21:01] LABS: Glucose,Whole Blood 64 mg/dL (75-99)
[2017-08-02] MEDS: POTASSIUM CHLORIDE ER 20 MEQ TAB.ER PO SCH (21:27)
[2017-08-02] MEDS: LACTOBACILLUS ACIDOPH & BULGAR 1 EACH PACKET PO SCH (21:28)
[2017-08-02] MEDS: MELATONIN 3 MG TABLET PO SCH (21:28)
[2017-08-02] MEDS: CHOLECALCIFEROL 1,000 UNIT TAB PO SCH (21:28)
[2017-08-02] MEDS: FERROUS SULFATE 325 MG TAB PO SCH (21:28)
[2017-08-02] MEDS: ATORVASTATIN 40 MG TAB PO SCH (21:28)
[2017-08-02] MEDS: SENNOSIDES 8.6 MG TAB PO SCH (21:29)
[2017-08-02] MEDS: DEXTROSE 5%-0.9% NACL 1,000 ML IV SCH (21:30)
[2017-08-02] MEDS: SODIUM CHLORIDE 0.9% 1,000 ML IV SCH (21:31)
[2017-08-02 22:01] LABS: Glucose,Whole Blood 107 mg/dL (75-99)
[2017-08-03] MEDS: oxyCODONE-APAP 7.5-325MG 1 EACH TAB PO PRN ×3 (00:27→21:34)
[2017-08-03 01:18] LABS: Glucose,Whole Blood 100 mg/dL (75-99)
[2017-08-03] MEDS: HYDROmorphone 2 MG/ML 1 ML SYRINGE IVP PRN ×5 (06:07→23:58)
[2017-08-03] MEDS: GENTAMICIN 0.1% CREAM 15 GM TUBE TOPICAL SCH ×3 (07:20→15:32)
[2017-08-03 07:36] LABS: Glucose,Whole Blood 99 mg/dL (75-99)
[2017-08-03] MEDS: INSULIN ASPART 100 UNIT/ML 1 ML 10 ML VIAL SQ SCH ×4 (08:03→21:37)
[2017-08-03] MEDS: oxyCODONE ER 10 MG TAB.ER.12H PO SCH ×2 (08:25→21:36)
[2017-08-03] MEDS: amLODIPine 5 MG TAB PO SCH (08:26)
[2017-08-03] MEDS: ESCITALOPRAM 10 MG TAB PO SCH (08:26)
[2017-08-03] MEDS: LEVOFLOXACIN 250 MG TAB PO SCH (08:26)
[2017-08-03] MEDS: ALLOPURINOL 100 MG TAB PO SCH ×2 (08:26→21:33)
[2017-08-03 08:27] LABS: Anisocytosis Slight; Basophils % (A) 1 %; Eosinophils # (A) 0.3 k/uL (0-0.7); Eosinophils % (A) 6 %; HCT 31.4 % (34.0-46.0); HGB 9.8 gm/dL (11.4-16.0); Hypochromasia Moderate; Lymphocytes # (A) 1.7 k/uL (1.0-4.8); Lymphocytes % (A) 37 %; MCH 30.4 pg (25.0-35.0); MCHC 31.2 g/dL (31.0-37.0); MCV 97.4 fL (80.0-100.0); Macrocytosis Slight; Mean Platelet Volume 6.9; Monocytes # (A) 0.2 k/uL (0-1.0); Monocytes % (A) 5 %; Neutrophils # (A) 2.4 k/uL (1.3-7.7); Neutrophils % (A) 50 %; Platelet Count 324 k/uL (150-450); Poikilocytosis Slight; RBC 3.23 m/uL (3.80-5.40); RDW 17.7 % (11.5-15.5); WBC 4.7 k/uL (3.8-10.6)
[2017-08-03] MEDS: metFORMIN 500 MG TAB PO SCH ×2 (08:27→21:33)
[2017-08-03] MEDS: MULTIVITAMINS, THERA 1 EACH TAB PO SCH (08:27)
[2017-08-03] MEDS: SULFAMETHOX-TMP 800-160MG 1 EACH TAB PO SCH ×2 (08:28→21:32)
[2017-08-03] MEDS: PANTOPRAZOLE 40 MG/10 ML VIAL IV SCH (08:28)
[2017-08-03 08:45] LABS: Anion Gap 11 mmol/L; Blood Urea Nitrogen 9 mg/dL (7-17); Calcium 8.9 mg/dL (8.4-10.2); Carbon Dioxide 21 mmol/L (22-30); Chloride 111 mmol/L (98-107); Glucose 91 mg/dL (74-99); Magnesium 1.6 mg/dL (1.6-2.3); Phosphorus 3.4 mg/dL (2.5-4.5); Sodium 143 mmol/L (137-145)
--- NOTE | 2017-08-03 10:04 | P.PN ---
Subjective Progress Note Date: 08/03/17 66-year-old female resting in bed plan for colonoscopy this morning bowel prep in progress nursing reports patient has had several large incontinent stools during the night Hemoglobin this morning 9.8 Objective - Vital Signs Vital signs: Vital Signs Temp 97.2 F L 08/03/17 07:00 Pulse 76 08/03/17 07:00 Resp 18 08/03/17 07:00 BP 126/62 08/03/17 07:00 Pulse Ox 99 08/03/17 07:00 Intake & Output 08/02/17 08/03/17 08/03/17 18:59 06:59 18:59 Intake Total 480 2120 Output Total 1 Balance 480 2119 Intake: Oral 480 2120 Output: Stool 1 Other: Voiding Method Diaper Diaper # Voids 1 4 # Bowel Movements 4 2 - Exam Physical exam 66 year old female sitting up in bed lungs clear no sob heart S1-S2 audible regular Abdomen soft nondistended Extremities no edema - Labs CBC & Chem 7: 08/03/17 07:39 08/03/17 07:39 Labs: Abnormal Lab Results - Last 24 Hours (Table) 08/02/17 08/02/17 08/02/17 Range/Units 11:53 17:03 17:21 RBC (3.80-5.40) m/uL Hgb (11.4-16.0) gm/dL Hct (34.0-46.0) % RDW (11.5-15.5) % Chloride (98-107) mmol/L Carbon Dioxide (22-30) mmol/L POC Glucose (mg/dL) 122 H 63 L 69 L (75-99) mg/dL 08/02/17 08/02/17 08/03/17 Range/Units 20:51 21:29 01:04 RBC (3.80-5.40) m/uL Hgb (11.4-16.0) gm/dL Hct (34.0-46.0) % RDW (11.5-15.5) % Chloride (98-107) mmol/L Carbon Dioxide (22-30) mmol/L POC Glucose (mg/dL) 64 L 107 H 100 H (75-99) mg/dL 08/03/17 08/03/17 Range/Units 07:39 07:39 RBC 3.23 L (3.80-5.40) m/uL Hgb 9.8 L (11.4-16.0) gm/dL Hct 31.4 L (34.0-46.0) % RDW 17.7 H (11.5-15.5) % Chloride 111 H (98-107) mmol/L Carbon Dioxide 21 L (22-30) mmol/L POC Glucose (mg/dL) (75-99) mg/dL Assessment and Plan Assessment: Impression Present on admission acute blood loss anemia suspect due to GI bleed status post 4 units packed red blood cells History of bariatric weight loss surgery gastric bypass Status post EGD August 01 no acute findings no evidence of an upper GI bleed Computed tomography scan abdomen pelvis evidence of a hiatal hernia Obstructive sleep apnea not utilizing CPAP in the outpatient setting History of a DVT on anticoagulation with an IVC filter in place Previous loreta en y gastric bypass surgery Plan Nothing by mouth after midnight for colonoscopy this morning Further surgical recommendations pending The above impression and plan of care have been discussed and directed by signing physician. Judith Dotson nurse practitioner acting as scribe for signing physician.
[2017-08-03 11:59] LABS: Glucose,Whole Blood 109 mg/dL (75-99)
[2017-08-03] MEDS ORDERED: LIDOCAINE 1% INJ 10MG/ML (20 ML MDV) ONE (14:13)
[2017-08-03] MEDS ORDERED: PROPOFOL 10 MG/ML 20 ML VIAL IV ONE (14:13)
[2017-08-03] MEDS ORDERED: IV FLUID CONTINUATION 1,000 ML IV ONE (14:21)
--- NOTE | 2017-08-03 15:50 | P.OP ---
Date of Procedure: 08/03/17 Preoperative Diagnosis: GI bleed Postoperative Diagnosis: Poor prep with large amount liquid stool Procedure(s) Performed: Colonoscopy Anesthesia: MAC Surgeon: Tavo Goel Pathology: none sent Condition: stable Disposition: PACU Description of Procedure: Patient's placed on the endoscopy table in the lateral position. She received IV sedation. Digital rectal exam was performed which revealed no abnormalities. The colonoscope was then placed patient anus passed the rectum. There was a large amount of liquid black stool. Scope could not be advanced. Patient had a large bowel movement on the endoscopy table. At this point was aborted. Patient be reprepped and scheduled for another colonoscopy on Tuesday.
--- NOTE | 2017-08-03 15:51 | P.PN ---
Progress Note - Text Progress Note Date: 08/03/17 The patient still has a poor prep. She had a large liquid bowel movement during her r colonoscopy. The procedure was canceled. Patient be reprepped and undergo colonoscopy on Tuesday.
[2017-08-03 17:24] LABS: Glucose,Whole Blood 92 mg/dL (75-99)
[2017-08-03] MEDS: DEXTROSE 5%-0.9% NACL 1,000 ML IV SCH (17:45)
[2017-08-03 20:56] LABS: Glucose,Whole Blood 115 mg/dL (75-99)
[2017-08-03] MEDS: MELATONIN 3 MG TABLET PO SCH (21:32)
[2017-08-03] MEDS: LACTOBACILLUS ACIDOPH & BULGAR 1 EACH PACKET PO SCH (21:32)
[2017-08-03] MEDS: POTASSIUM CHLORIDE ER 20 MEQ TAB.ER PO SCH (21:32)
[2017-08-03] MEDS: SENNOSIDES 8.6 MG TAB PO SCH (21:32)
[2017-08-03] MEDS: ATORVASTATIN 40 MG TAB PO SCH (21:33)
[2017-08-03] MEDS: CHOLECALCIFEROL 1,000 UNIT TAB PO SCH (21:33)
[2017-08-03] MEDS: FERROUS SULFATE 325 MG TAB PO SCH (21:33)
[2017-08-03] MEDS: SODIUM CHLORIDE 0.9% 1,000 ML IV SCH (21:37)
[2017-08-04] MEDS: HYDROmorphone 2 MG/ML 1 ML SYRINGE IVP PRN (04:57)
[2017-08-04] MEDS: INSULIN ASPART 100 UNIT/ML 1 ML 10 ML VIAL SQ SCH ×4 (07:19→20:57)
[2017-08-04 07:33] LABS: Glucose,Whole Blood 103 mg/dL (75-99)
--- NOTE | 2017-08-04 08:10 | P.PN ---
Subjective Progress Note Date: 08/04/17 Principal diagnosis: Anemia/continuing care. This is a continue present 66-year-old white female admitted for anemia. She's had history of anemia in the past with transfusions. She has an underlying history of diabetes with history of left lower 70 DVT and element of cellulitis. Objective - Vital Signs Vital signs: Vital Signs Temp 97.5 F L 08/04/17 07:00 Pulse 71 08/04/17 07:00 Resp 18 08/04/17 07:00 BP 137/69 08/04/17 07:00 Pulse Ox 97 08/04/17 07:00 Intake & Output 08/03/17 08/04/17 08/04/17 18:59 06:59 18:59 Intake Total 450 Balance 450 Intake: IV 50 Intake, IV Titration 400 Amount Dextrose 5%-0.9% NaCl 1, 400 000 ml @ 50 mls/hr IV . Q20H [facility] Rx#:[id number] Other: Voiding Method Diaper Diaper # Voids 2 3 # Bowel Movements 4 - Constitutional General appearance: Present: obese - EENT Eyes: Absent: abnormal pupil - Respiratory Respiratory: bilateral: CTA - Cardiovascular Rhythm: regular Heart sounds: normal: S1, S2 - Gastrointestinal General gastrointestinal: Present: soft. Absent: tenderness - Psychiatric Psychiatric: Present: A&O x's 3 - Labs CBC & Chem 7: 08/03/17 07:39 08/03/17 07:39 Labs: Abnormal Lab Results - Last 24 Hours (Table) 08/03/17 08/03/17 08/03/17 Range/Units 07:39 07:39 11:57 RBC 3.23 L (3.80-5.40) m/uL Hgb 9.8 L (11.4-16.0) gm/dL Hct 31.4 L (34.0-46.0) % RDW 17.7 H (11.5-15.5) % Chloride 111 H (98-107) mmol/L Carbon Dioxide 21 L (22-30) mmol/L POC Glucose (mg/dL) 109 H (75-99) mg/dL 08/03/17 08/04/17 Range/Units 20:50 07:07 RBC (3.80-5.40) m/uL Hgb (11.4-16.0) gm/dL Hct (34.0-46.0) % RDW (11.5-15.5) % Chloride (98-107) mmol/L Carbon Dioxide (22-30) mmol/L POC Glucose (mg/dL) 115 H 103 H (75-99) mg/dL Assessment and Plan (1) Anemia Current Visit: Yes Status: Acute Code(s): D64.9 - ANEMIA, UNSPECIFIED SNOMED Code(s): 352734668 (2) GI bleed Current Visit: Yes Status: Acute Code(s): K92.2 - GASTROINTESTINAL HEMORRHAGE, UNSPECIFIED SNOMED Code(s): 50551123 (3) Cellulitis of leg Current Visit: No Status: Acute Code(s): L03.119 - CELLULITIS OF UNSPECIFIED PART OF LIMB SNOMED Code(s): 250243169 Plan: There is no evidence of GI bleeding at this time. However, in appropriate preparation from yesterday's procedure. She will be rescheduled for colonoscopy in a.m. Anticipate discharge if that test is clear in the a.m. Time with Patient: Less than 30
[2017-08-04] MEDS: GENTAMICIN 0.1% CREAM 15 GM TUBE TOPICAL SCH ×3 (08:41→17:18)
[2017-08-04] MEDS: amLODIPine 5 MG TAB PO SCH (08:43)
[2017-08-04] MEDS: ESCITALOPRAM 10 MG TAB PO SCH (08:43)
[2017-08-04] MEDS: ALLOPURINOL 100 MG TAB PO SCH ×2 (08:43→20:56)
[2017-08-04] MEDS: metFORMIN 500 MG TAB PO SCH ×2 (08:44→20:58)
[2017-08-04] MEDS: LEVOFLOXACIN 250 MG TAB PO SCH (08:44)
[2017-08-04] MEDS: oxyCODONE ER 10 MG TAB.ER.12H PO SCH ×2 (08:45→20:58)
[2017-08-04] MEDS: MULTIVITAMINS, THERA 1 EACH TAB PO SCH (08:45)
[2017-08-04] MEDS: PANTOPRAZOLE 40 MG/10 ML VIAL IV SCH (08:48)
[2017-08-04] MEDS: SULFAMETHOX-TMP 800-160MG 1 EACH TAB PO SCH ×2 (08:48→20:59)
[2017-08-04] MEDS: HYDROmorphone 2 MG/ML 1 ML SYRINGE IM PRN ×4 (08:57→22:19)
[2017-08-04] MEDS ORDERED: PEG 3350-NA SULF,BICARB,CL/KCL 4,000 ML BOTTLE PO ONE (09:24)
[2017-08-04 09:26] LABS: Anisocytosis Slight; Basophils % (A) 1 %; Eosinophils # (A) 0.2 k/uL (0-0.7); Eosinophils % (A) 5 %; HCT 28.2 % (34.0-46.0); HGB 8.6 gm/dL (11.4-16.0); Hypochromasia Moderate; Lymphocytes # (A) 1.4 k/uL (1.0-4.8); Lymphocytes % (A) 31 %; MCH 29.6 pg (25.0-35.0); MCHC 30.4 g/dL (31.0-37.0); MCV 97.3 fL (80.0-100.0); Macrocytosis Slight; Mean Platelet Volume 6.9; Monocytes # (A) 0.2 k/uL (0-1.0); Monocytes % (A) 5 %; Neutrophils # (A) 2.6 k/uL (1.3-7.7); Neutrophils % (A) 58 %; Platelet Count 291 k/uL (150-450); Poikilocytosis Slight; RDW 17.4 % (11.5-15.5); WBC 4.5 k/uL (3.8-10.6)
[2017-08-04 09:48] LABS: Anion Gap 7 mmol/L; Blood Urea Nitrogen 7 mg/dL (7-17); Calcium 8.4 mg/dL (8.4-10.2); Carbon Dioxide 18 mmol/L (22-30); Chloride 117 mmol/L (98-107); Glucose 112 mg/dL (74-99); Magnesium 1.6 mg/dL (1.6-2.3); Phosphorus 3.1 mg/dL (2.5-4.5); Sodium 142 mmol/L (137-145)
--- NOTE | 2017-08-04 10:52 | P.PN ---
Subjective Progress Note Date: 08/04/17 66-year-old female sitting up in bed denying any nausea vomiting. Patient's colonoscopy that was scheduled yesterday needed to be aborted due to incomplete bowel prep. Discussed the plan of care with the patient will restart bowel prep today and reschedule colonoscopy tomorrow. Objective - Vital Signs Vital signs: Vital Signs Temp 97.5 F L 08/04/17 07:00 Pulse 71 08/04/17 07:00 Resp 18 08/04/17 07:00 BP 137/69 08/04/17 07:00 Pulse Ox 97 08/04/17 07:00 Intake & Output 08/03/17 08/04/17 08/04/17 18:59 06:59 18:59 Intake Total 450 Balance 450 Intake: IV 50 Intake, IV Titration 400 Amount Dextrose 5%-0.9% NaCl 1, 400 000 ml @ 50 mls/hr IV . Q20H [facility] Rx#:[id number] Other: Voiding Method Diaper Diaper Diaper # Voids 2 3 1 # Bowel Movements 4 1 - Exam Physical exam 66 year old female sitting up in bed talkative denying any nausea vomiting lungs clear no sob heart S1-S2 audible regular denies chest pain Abdomen soft nondistended nursing reports patient has been incontinent of brown liquid stool this morning Extremities no edema - Labs CBC & Chem 7: 08/04/17 08:25 08/04/17 08:25 Labs: Abnormal Lab Results - Last 24 Hours (Table) 08/03/17 08/03/17 08/04/17 Range/Units 11:57 20:50 07:07 RBC (3.80-5.40) m/uL Hgb (11.4-16.0) gm/dL Hct (34.0-46.0) % MCHC (31.0-37.0) g/dL RDW (11.5-15.5) % Chloride (98-107) mmol/L Carbon Dioxide (22-30) mmol/L Glucose (74-99) mg/dL POC Glucose (mg/dL) 109 H 115 H 103 H (75-99) mg/dL 08/04/17 08/04/17 Range/Units 08:25 08:25 RBC 2.90 L (3.80-5.40) m/uL Hgb 8.6 L (11.4-16.0) gm/dL Hct 28.2 L (34.0-46.0) % MCHC 30.4 L (31.0-37.0) g/dL RDW 17.4 H (11.5-15.5) % Chloride 117 H (98-107) mmol/L Carbon Dioxide 18 L (22-30) mmol/L Glucose 112 H (74-99) mg/dL POC Glucose (mg/dL) (75-99) mg/dL Assessment and Plan Assessment: Impression Present on admission acute blood loss anemia suspect due to GI bleed status post 4 units packed red blood cells History of bariatric weight loss surgery gastric bypass Status post EGD August 01 no acute findings no evidence of an upper GI bleed Computed tomography scan abdomen pelvis evidence of a hiatal hernia Obstructive sleep apnea not utilizing CPAP in the outpatient setting History of a DVT on anticoagulation with an IVC filter in place Previous loreta en y gastric bypass surgery Plan Nothing by mouth after midnight for colonoscopy August 05 PT OT eval Bowel prep to be started this morning monitor the response Further surgical recommendations pending The above impression and plan of care have been discussed and directed by signing physician. Judith Dotson nurse practitioner acting as scribe for signing physician.
[2017-08-04 11:56] LABS: Glucose,Whole Blood 167 mg/dL (75-99)
[2017-08-04] MEDS: DEXTROSE 5%-0.9% NACL 1,000 ML IV SCH (12:52)
[2017-08-04] MEDS ORDERED: LIDOCAINE 2% INJ 20 MG/ML (20 ML MDV) ONE (13:29)
[2017-08-04 13:30] VITALS: BMI 32.2
--- NOTE | 2017-08-04 13:59 | IR ---
PICC LINE PLACEMENT: HISTORY: Infection requiring long-term antibiotic therapy PROCEDURE: Ultrasound and fluoroscopic guidance of PICC line placement. COMPLICATIONS: None ANESTHESIA: 1. 1% Lidocaine locally. FINDINGS/TECHNIQUE: The procedure was explained to the patient. The risks, complications, benefits and alternatives were discussed and any questions were answered. Informed consent was obtained. The patient was placed supine on the fluoroscopic table and prepped and draped in the usual sterile [facility] ion. Utilizing a 21 gauge needle and sonographic and fluoroscopic guidance, access in the vein was achieved and there is placement of a 0.018 guidewire. The vein is patent. A 4-F sheath was placed o fanta the guidewire. The guidewire and dilator were removed and a 4-F. PICC line was placed through th e sheath with the tip at the level of the SVC. The sheath was removed, the catheter was flushed and sutured into position. The patient was stable throughout the procedure and remained stable upon disc harge from the Department of Radiology. The vein puncture was patent under ultrasound. A hernandez scale image was obtained to document patency of the vein punctured. All elements of the maximal barrier technique were utilized. FLUOROSCOPY TIME: 1.3 minutes, one image submitted IMPRESSION: Successful PICC line placement under ultrasound and fluoroscopic guidance.
[2017-08-04 17:33] LABS: Glucose,Whole Blood 60 mg/dL (75-99)
[2017-08-04 17:39] LABS: Glucose,Whole Blood 93 mg/dL (75-99)
[2017-08-04] MEDS ORDERED: MAGNESIUM CITRATE 296 ML BOTTLE PO ONE (20:05)
[2017-08-04 20:52] LABS: Glucose,Whole Blood 147 mg/dL (75-99)
[2017-08-04] MEDS: ATORVASTATIN 40 MG TAB PO SCH (20:56)
[2017-08-04] MEDS: CHOLECALCIFEROL 1,000 UNIT TAB PO SCH (20:56)
[2017-08-04] MEDS: FERROUS SULFATE 325 MG TAB PO SCH (20:56)
[2017-08-04] MEDS: LACTOBACILLUS ACIDOPH & BULGAR 1 EACH PACKET PO SCH (20:56)
[2017-08-04] MEDS: MELATONIN 3 MG TABLET PO SCH (20:57)
[2017-08-04] MEDS: POTASSIUM CHLORIDE ER 20 MEQ TAB.ER PO SCH (20:59)
[2017-08-04] MEDS: SENNOSIDES 8.6 MG TAB PO SCH (20:59)
[2017-08-04] MEDS: SODIUM CHLORIDE 0.9% 1,000 ML IV SCH (21:07)
[2017-08-05] MEDS: GENTAMICIN 0.1% CREAM 15 GM TUBE TOPICAL SCH ×4 (00:15→23:27)
[2017-08-05] MEDS ORDERED: MAGNESIUM CITRATE 296 ML BOTTLE PO ONE (06:00)
[2017-08-05 07:34] LABS: Glucose,Whole Blood 95 mg/dL (75-99)
[2017-08-05] MEDS: INSULIN ASPART 100 UNIT/ML 1 ML 10 ML VIAL SQ SCH ×4 (07:43→22:32)
[2017-08-05] MEDS: metFORMIN 500 MG TAB PO SCH ×2 (08:49→22:17)
[2017-08-05] MEDS: PANTOPRAZOLE 40 MG/10 ML VIAL IV SCH (09:21)
[2017-08-05] MEDS: MULTIVITAMINS, THERA 1 EACH TAB PO SCH (09:22)
[2017-08-05] MEDS: ALLOPURINOL 100 MG TAB PO SCH ×2 (09:22→22:18)
[2017-08-05] MEDS: SULFAMETHOX-TMP 800-160MG 1 EACH TAB PO SCH ×2 (09:22→22:17)
[2017-08-05] MEDS: ESCITALOPRAM 10 MG TAB PO SCH (09:22)
[2017-08-05] MEDS: LEVOFLOXACIN 500 MG TAB PO SCH (09:23)
[2017-08-05] MEDS: amLODIPine 5 MG TAB PO SCH (09:23)
[2017-08-05] MEDS: oxyCODONE ER 10 MG TAB.ER.12H PO SCH ×2 (09:31→23:26)
[2017-08-05] MEDS: DEXTROSE 5%-0.9% NACL 1,000 ML IV SCH (09:39)
[2017-08-05] MEDS: HYDROmorphone 2 MG/ML 1 ML SYRINGE IM PRN (11:50)
[2017-08-05 12:45] LABS: Glucose,Whole Blood 107 mg/dL (75-99)
[2017-08-05] MEDS ORDERED: PROPOFOL 10 MG/ML 20 ML VIAL IV ONE (12:58)
[2017-08-05] MEDS ORDERED: IV FLUID CONTINUATION 1,000 ML IV ONE (12:58)
--- NOTE | 2017-08-05 13:09 | P.PN ---
Progress Note - Text Progress Note Date: 08/05/17 The patient had another attempted colonoscopy. There was a large amount liquid black stool which prevented the colonoscopy being performed. The patient be reprepped over the weekend. She will undergo colonoscopy on Tuesday.
--- NOTE | 2017-08-05 13:13 | P.OP ---
Date of Procedure: 08/05/17 Preoperative Diagnosis: GI bleed Postoperative Diagnosis: GI bleed Incomplete colonoscopy secondary to poor prep Procedure(s) Performed: Colonoscopy Anesthesia: MAC Surgeon: Tavo Goel Pathology: none sent Condition: stable Disposition: PACU Description of Procedure: Patient placed on the operating table in the supine position. She received IV sedation. Digital rectal exam was performed which revealed a large amount liquid stool. After digital rectal exam was performed the patient evacuated approximately 1000 mL of black-colored melanotic stool. The patient's prep was inadequate for colonoscopy. Scope was placed into the rectum and nothing could be visualized due to large amount of liquid stool. This point scope was withdrawn. The patient will undergo repeat prep and undergo colonoscopy on Tuesday.
[2017-08-05] MEDS: ALPRAZolam 0.25 MG TAB PO PRN (14:01)
[2017-08-05] MEDS: HYDROmorphone 2 MG/ML 1 ML SYRINGE IVP PRN ×3 (14:40→22:24)
[2017-08-05 16:03] LABS: Anisocytosis Slight; Basophils % (A) 1 %; Eosinophils # (A) 0.1 k/uL (0-0.7); Eosinophils % (A) 3 %; HCT 28.7 % (34.0-46.0); Hypochromasia Moderate; Lymphocytes # (A) 1.3 k/uL (1.0-4.8); Lymphocytes % (A) 33 %; MCH 30.4 pg (25.0-35.0); MCHC 31.5 g/dL (31.0-37.0); MCV 96.4 fL (80.0-100.0); Macrocytosis Slight; Mean Platelet Volume 6.8; Monocytes # (A) 0.2 k/uL (0-1.0); Monocytes % (A) 4 %; Neutrophils # (A) 2.3 k/uL (1.3-7.7); Neutrophils % (A) 58 %; Platelet Count 255 k/uL (150-450); Poikilocytosis Slight; RBC 2.97 m/uL (3.80-5.40)
[2017-08-05 16:13] LABS: ALT 37 U/L (9-52); AST 35 U/L (14-36); Albumin 2.5 g/dL (3.5-5.0); Alkaline Phosphatase 127 U/L (38-126); Anion Gap 6 mmol/L; Blood Urea Nitrogen 5 mg/dL (7-17); Calcium 8.3 mg/dL (8.4-10.2); Carbon Dioxide 25 mmol/L (22-30); Chloride 111 mmol/L (98-107); Glucose 109 mg/dL (74-99); Potassium 4.1 mmol/L (3.5-5.1); Sodium 142 mmol/L (137-145); Total Bilirubin 0.1 mg/dL (0.2-1.3); Total Protein 5.9 g/dL (6.3-8.2)
[2017-08-05 17:29] LABS: Glucose,Whole Blood 145 mg/dL (75-99)
[2017-08-05] MEDS: SODIUM CHLORIDE 0.9% 1,000 ML IV SCH (17:52)
[2017-08-05 20:45] LABS: Glucose,Whole Blood 204 mg/dL (75-99)
[2017-08-05] MEDS: ATORVASTATIN 40 MG TAB PO SCH (22:17)
[2017-08-05] MEDS: MELATONIN 3 MG TABLET PO SCH (22:18)
[2017-08-05] MEDS: CHOLECALCIFEROL 1,000 UNIT TAB PO SCH (22:18)
[2017-08-05] MEDS: POTASSIUM CHLORIDE ER 20 MEQ TAB.ER PO SCH (22:18)
[2017-08-05] MEDS: SENNOSIDES 8.6 MG TAB PO SCH (22:18)
[2017-08-05] MEDS: LACTOBACILLUS ACIDOPH & BULGAR 1 EACH PACKET PO SCH (22:19)
[2017-08-05] MEDS: FERROUS SULFATE 325 MG TAB PO SCH (22:19)
[2017-08-06] MEDS: HYDROmorphone 2 MG/ML 1 ML SYRINGE IVP PRN ×5 (03:03→20:10)
[2017-08-06 07:33] LABS: Glucose,Whole Blood 84 mg/dL (75-99)
[2017-08-06] MEDS: DEXTROSE 5%-0.9% NACL 1,000 ML IV SCH (07:40)
[2017-08-06] MEDS: INSULIN ASPART 100 UNIT/ML 1 ML 10 ML VIAL SQ SCH ×4 (07:42→22:45)
[2017-08-06 08:09] LABS: Anisocytosis Slight; Basophils % (A) 0 %; Eosinophils # (A) 0.2 k/uL (0-0.7); Eosinophils % (A) 3 %; HCT 28.9 % (34.0-46.0); HGB 8.8 gm/dL (11.4-16.0); Hypochromasia Moderate; Lymphocytes # (A) 1.4 k/uL (1.0-4.8); Lymphocytes % (A) 21 %; MCHC 30.3 g/dL (31.0-37.0); MCV 98.9 fL (80.0-100.0); Macrocytosis Slight; Mean Platelet Volume 6.8; Monocytes # (A) 0.3 k/uL (0-1.0); Monocytes % (A) 4 %; Neutrophils # (A) 4.7 k/uL (1.3-7.7); Neutrophils % (A) 70 %; Platelet Count 258 k/uL (150-450); Poikilocytosis Slight; RBC 2.92 m/uL (3.80-5.40); RDW 16.8 % (11.5-15.5); WBC 6.7 k/uL (3.8-10.6)
[2017-08-06] MEDS: SULFAMETHOX-TMP 800-160MG 1 EACH TAB PO SCH ×2 (08:35→20:16)
[2017-08-06] MEDS: ALLOPURINOL 100 MG TAB PO SCH ×2 (08:35→20:14)
[2017-08-06] MEDS: LEVOFLOXACIN 500 MG TAB PO SCH (08:35)
[2017-08-06] MEDS: amLODIPine 5 MG TAB PO SCH ×2 (08:36→08:51)
[2017-08-06] MEDS: metFORMIN 500 MG TAB PO SCH ×2 (08:36→20:15)
[2017-08-06] MEDS: PANTOPRAZOLE 40 MG/10 ML VIAL IV SCH (08:36)
[2017-08-06] MEDS: oxyCODONE ER 10 MG TAB.ER.12H PO SCH (08:37)
[2017-08-06] MEDS: MULTIVITAMINS, THERA 1 EACH TAB PO SCH (08:37)
[2017-08-06] MEDS: GENTAMICIN 0.1% CREAM 15 GM TUBE TOPICAL SCH ×3 (08:38→22:53)
[2017-08-06] MEDS: ESCITALOPRAM 10 MG TAB PO SCH (08:51)
[2017-08-06] MEDS: MAGNESIUM HYDROXIDE 2,400 MG/10 ML CUP PO PRN (08:52)
--- NOTE | 2017-08-06 11:43 | P.PN ---
Subjective Progress Note Date: 08/06/17 Principal diagnosis: Abdominal pain Patient still having some midabdominal discomfort. Unchanged since yesterday per the patient and the nurse. Tolerating full liquids. T-max 99. White blood cell count 6.7. Objective - Vital Signs Vital signs: Vital Signs Temp 98.0 F 08/06/17 07:00 Pulse 68 08/06/17 07:00 Resp 20 08/06/17 07:00 BP 99/52 08/06/17 07:00 Pulse Ox 97 08/06/17 07:00 Intake & Output 08/05/17 08/06/17 08/06/17 18:59 06:59 18:59 Intake Total 50 240 600 Output Total 2 0 Balance 48 240 600 Intake: IV 50 Oral 240 600 Output: Urine 0 Stool 2 0 Other: Voiding Method Diaper Diaper # Voids 3 1 # Bowel Movements 2 1 - Exam Abdomen: Soft, mild abdominal distention, mild diffuse tenderness - Labs CBC & Chem 7: 08/06/17 07:29 08/05/17 15:41 Labs: Abnormal Lab Results - Last 24 Hours (Table) 08/05/17 08/05/17 08/05/17 Range/Units 12:31 15:41 15:41 RBC 2.97 L (3.80-5.40) m/uL Hgb 9.0 L (11.4-16.0) gm/dL Hct 28.7 L (34.0-46.0) % MCHC (31.0-37.0) g/dL RDW 17.0 H (11.5-15.5) % Chloride 111 H (98-107) mmol/L BUN 5 L (7-17) mg/dL Glucose 109 H (74-99) mg/dL POC Glucose (mg/dL) 107 H (75-99) mg/dL Calcium 8.3 L (8.4-10.2) mg/dL Total Bilirubin 0.1 L (0.2-1.3) mg/dL Alkaline Phosphatase 127 H (38-126) U/L Total Protein 5.9 L (6.3-8.2) g/dL Albumin 2.5 L (3.5-5.0) g/dL 08/05/17 08/05/17 08/06/17 Range/Units 17:06 20:37 07:29 RBC 2.92 L (3.80-5.40) m/uL Hgb 8.8 L (11.4-16.0) gm/dL Hct 28.9 L (34.0-46.0) % MCHC 30.3 L (31.0-37.0) g/dL RDW 16.8 H (11.5-15.5) % Chloride (98-107) mmol/L BUN (7-17) mg/dL Glucose (74-99) mg/dL POC Glucose (mg/dL) 145 H 204 H (75-99) mg/dL Calcium (8.4-10.2) mg/dL Total Bilirubin (0.2-1.3) mg/dL Alkaline Phosphatase (38-126) U/L Total Protein (6.3-8.2) g/dL Albumin (3.5-5.0) g/dL Assessment and Plan (1) GI bleed Narrative/Plan: Decreased diet to clear liquids in the event that colonoscopy is performed Tuesday. Fleets enema today. Current Visit: Yes Status: Acute Code(s): K92.2 - GASTROINTESTINAL HEMORRHAGE, UNSPECIFIED SNOMED Code(s): 04635234
[2017-08-06 12:58] LABS: Glucose,Whole Blood 121 mg/dL (75-99)
[2017-08-06] MEDS: BISACODYL 5 MG TABLET.DR PO PRN (14:59)
[2017-08-06] MEDS: ALPRAZolam 0.25 MG TAB PO PRN (14:59)
[2017-08-06 17:48] LABS: Glucose,Whole Blood 135 mg/dL (75-99)
[2017-08-06] MEDS: LACTOBACILLUS ACIDOPH & BULGAR 1 EACH PACKET PO SCH (20:14)
[2017-08-06] MEDS: POTASSIUM CHLORIDE ER 20 MEQ TAB.ER PO SCH (20:15)
[2017-08-06] MEDS: CHOLECALCIFEROL 1,000 UNIT TAB PO SCH (20:15)
[2017-08-06] MEDS: ATORVASTATIN 40 MG TAB PO SCH (20:15)
[2017-08-06] MEDS: SENNOSIDES 8.6 MG TAB PO SCH (20:16)
[2017-08-06] MEDS: MELATONIN 3 MG TABLET PO SCH (20:16)
[2017-08-06] MEDS: FERROUS SULFATE 325 MG TAB PO SCH (20:20)
[2017-08-06 20:42] LABS: Glucose,Whole Blood 107 mg/dL (75-99)
[2017-08-06] MEDS: SODIUM CHLORIDE 0.9% 1,000 ML IV SCH (22:52)
[2017-08-07] MEDS: HYDROmorphone 2 MG/ML 1 ML SYRINGE IVP PRN ×5 (01:41→20:13)
[2017-08-07] MEDS: oxyCODONE ER 10 MG TAB.ER.12H PO SCH ×3 (02:02→20:41)
[2017-08-07] MEDS ORDERED: PEG 3350-NA SULF,BICARB,CL/KCL 4,000 ML BOTTLE PO ONE (07:00)
[2017-08-07 07:32] LABS: Glucose,Whole Blood 94 mg/dL (75-99)
[2017-08-07 08:48] LABS: Anisocytosis Slight; Basophils % (A) 1 %; Eosinophils # (A) 0.2 k/uL (0-0.7); Eosinophils % (A) 5 %; HCT 28.1 % (34.0-46.0); HGB 8.7 gm/dL (11.4-16.0); Hypochromasia Marked; Lymphocytes # (A) 1.7 k/uL (1.0-4.8); Lymphocytes % (A) 37 %; MCH 30.5 pg (25.0-35.0); MCHC 30.8 g/dL (31.0-37.0); Macrocytosis Slight; Mean Platelet Volume 7.7; Monocytes # (A) 0.2 k/uL (0-1.0); Monocytes % (A) 4 %; Neutrophils # (A) 2.4 k/uL (1.3-7.7); Neutrophils % (A) 51 %; Platelet Count 203 k/uL (150-450); RBC 2.84 m/uL (3.80-5.40); RDW 17.8 % (11.5-15.5); WBC 4.7 k/uL (3.8-10.6)
[2017-08-07] MEDS ORDERED: HYDROmorphone 2 MG/ML 1 ML SYRINGE IVP STA (10:05)
[2017-08-07] MEDS: PANTOPRAZOLE 40 MG/10 ML VIAL IV SCH (10:16)
[2017-08-07] MEDS: ALPRAZolam 0.25 MG TAB PO PRN (10:17)
[2017-08-07] MEDS: INSULIN ASPART 100 UNIT/ML 1 ML 10 ML VIAL SQ SCH ×4 (11:43→20:48)
--- NOTE | 2017-08-07 11:44 | P.PN ---
Subjective Progress Note Date: 08/07/17 Principal diagnosis: Abdominal pain Patient complaining of increased abdominal pain today. Describes feeling bloated. Minimal flatus since yesterday. White blood cell count 4.7, hemoglobin 8.7. T-max 99.2. Objective - Vital Signs Vital signs: Vital Signs Temp 98.7 F 08/07/17 07:00 Pulse 80 08/07/17 07:00 Resp 18 08/07/17 07:00 BP 145/68 08/07/17 07:00 Pulse Ox 97 08/07/17 07:00 Intake & Output 08/06/17 08/07/17 08/07/17 18:59 06:59 18:59 Intake Total 1780 Output Total 0 0 Balance 1780 0 Weight 79.9 kg Intake: IV 100 Sodium Chloride 0.9% 1, 100 000 ml @ 20 mls/hr IV . Q24H [facility] Rx#:[id number] Oral 1680 Output: Urine 0 0 Stool 0 0 Other: Voiding Method Diaper Diaper # Voids 1 2 # Bowel Movements 1 - Exam Abdomen: Soft, mild distention, mild diffuse tenderness - Labs CBC & Chem 7: 08/07/17 08:02 08/05/17 15:41 Labs: Abnormal Lab Results - Last 24 Hours (Table) 08/06/17 08/06/17 08/06/17 Range/Units 12:40 17:28 20:33 RBC (3.80-5.40) m/uL Hgb (11.4-16.0) gm/dL Hct (34.0-46.0) % MCHC (31.0-37.0) g/dL RDW (11.5-15.5) % POC Glucose (mg/dL) 121 H 135 H 107 H (75-99) mg/dL 08/07/17 Range/Units 08:02 RBC 2.84 L (3.80-5.40) m/uL Hgb 8.7 L (11.4-16.0) gm/dL Hct 28.1 L (34.0-46.0) % MCHC 30.8 L (31.0-37.0) g/dL RDW 17.8 H (11.5-15.5) % POC Glucose (mg/dL) (75-99) mg/dL Assessment and Plan (1) GI bleed Narrative/Plan: Will check abdominal x-rays today although prior x-rays did not show evidence of obstruction. Initially plans were for attempts at colonoscopy tomorrow. Will not provide any further oral bowel prep at this time until x-rays reviewed. Current Visit: Yes Status: Acute Code(s): K92.2 - GASTROINTESTINAL HEMORRHAGE, UNSPECIFIED SNOMED Code(s): 71585112
[2017-08-07] MEDS: metFORMIN 500 MG TAB PO SCH ×2 (11:48→20:48)
[2017-08-07] MEDS: ALLOPURINOL 100 MG TAB PO SCH ×2 (11:48→20:45)
[2017-08-07] MEDS: SULFAMETHOX-TMP 800-160MG 1 EACH TAB PO SCH ×2 (11:48→20:45)
[2017-08-07] MEDS: MULTIVITAMINS, THERA 1 EACH TAB PO SCH (11:48)
[2017-08-07] MEDS: LEVOFLOXACIN 500 MG TAB PO SCH (11:48)
[2017-08-07] MEDS: GENTAMICIN 0.1% CREAM 15 GM TUBE TOPICAL SCH ×2 (11:49→17:16)
[2017-08-07] MEDS: amLODIPine 5 MG TAB PO SCH (11:49)
[2017-08-07] MEDS: ESCITALOPRAM 10 MG TAB PO SCH (11:49)
[2017-08-07 13:11] LABS: Glucose,Whole Blood 117 mg/dL (75-99)
--- NOTE | 2017-08-07 14:02 | XR ---
EXAMINATION TYPE: XR abdomen complete w decub DATE OF EXAM: 08/07/2017 COMPARISON: 07/30/2017 HISTORY: Abdominal pain TECHNIQUE: Supine, upright, and left side down lateral decubitus views of the abdomen are obtained. FINDINGS: Left hemicolonic dilatation appears similar to the exam of 07/30/2017 and therefore colonic i leus is favored. Air is noted distally within the pelvis. Ventral surgical natanael, right upper quadr ant clips, inferior vena cava filter, and bilateral hip arthroplasties are incidentally noted. Lung b ases are clear. No pneumoperitoneum. IMPRESSION: Persistent left hemicolonic dilatation, similar to the prior exam of 07/30/2017. Colonic ileus is favor ed.
[2017-08-07] MEDS: BISACODYL 10 MG SUPP RECTAL SCH (17:15)
[2017-08-07] MEDS ORDERED: DEXTROSE 10 % IN WATER 250 ML IV STA (17:52)
[2017-08-07 18:06] LABS: Glucose,Whole Blood 59 mg/dL (75-99)
[2017-08-07 18:29] LABS: Glucose,Whole Blood 112 mg/dL (75-99)
[2017-08-07] MEDS: MELATONIN 3 MG TABLET PO SCH (20:42)
[2017-08-07] MEDS: CHOLECALCIFEROL 1,000 UNIT TAB PO SCH (20:44)
[2017-08-07] MEDS: ATORVASTATIN 40 MG TAB PO SCH (20:45)
[2017-08-07] MEDS: POTASSIUM CHLORIDE ER 20 MEQ TAB.ER PO SCH (20:45)
[2017-08-07] MEDS: LACTOBACILLUS ACIDOPH & BULGAR 1 EACH PACKET PO SCH (20:45)
[2017-08-07] MEDS: FERROUS SULFATE 325 MG TAB PO SCH (20:45)
[2017-08-07] MEDS: SENNOSIDES 8.6 MG TAB PO SCH (20:45)
[2017-08-07] MEDS: SODIUM CHLORIDE 0.9% 1,000 ML IV SCH (20:48)
[2017-08-07 21:02] LABS: Glucose,Whole Blood 94 mg/dL (75-99)
--- NOTE | 2017-08-07 22:07 | P.PN ---
Subjective Progress Note Date: 08/06/17 Principal diagnosis: Anemia This is a continue present 66-year-old white female admitted for anemia. She has a medical history of diabetes mellitus, deep vein thrombosis, fibromyalgia, GI bleed, hyperlipidemia, hypertension, previous morbid obesity status post [place] -en-Y gastric bypass procedure, sepsis with septic shock, SVT, cellulitis of the left lower extremity, chronic kidney disease stage III, sleep apnea not on CPAP, atrial fibrillation. The patient also has a history of Lizzy filter placement. She is also anticoagulated on Elliquis. Previous MRSA, previous VRE , multiple orthopedic surgeries. She is wheelchair-bound. She was brought here to the emergency room after having outpatient labs that revealed a hemoglobin of 4.5. CT of the abdomen pelvis showed gaseous distention of colon. Patient had attempted colonoscopy procedures 3 and was unsuccessful due to poor bowel prep and also large bowel movement on the procedure table. EGD showed no evidence of bleeding. 08/06/2017 Patient is still complaining of abdominal pain and distention. General surgery is following and is planning for colonoscopy on Tuesday. Hemoglobin 8.8 today. Patient does not have any bowel movement today. Patient is unable to sit on the commode by herself. No fever no chills. No complaints of chest pain or shortness of breath. No other acute overnight issues. Patient continues to request for pain medications. all other review of systems negative except the above Current medications reviewed Objective - Vital Signs Vital signs: Vital Signs Temp 98.0 F 08/06/17 07:00 Pulse 68 08/06/17 07:00 Resp 20 08/06/17 07:00 BP 99/52 08/06/17 07:00 Pulse Ox 97 08/06/17 07:00 Intake & Output 08/05/17 08/06/17 08/06/17 18:59 06:59 18:59 Intake Total 50 240 600 Output Total 2 0 Balance 48 240 600 Intake: IV 50 Oral 240 600 Output: Urine 0 Stool 2 0 Other: Voiding Method Diaper Diaper # Voids 3 1 # Bowel Movements 2 1 - Exam PHYSICAL EXAMINATION: Patient is lying in the bed comfortably, no acute distress, awake alert and oriented.. HEENT: Normocephalic. Neck is supple. Pupils reactive. Nostrils clear. Oral cavity is moist. Ears reveal no drainage. Neck reveals no JVD, carotid bruits, or thyromegaly. CHEST EXAMINATION: Trachea is central. Symmetrical expansion. Lung [place] clear to auscultation and percussion. CARDIAC: Normal S1, S2 with no gallops. No murmurs ABDOMEN: Soft. Distended with mild tenderness. Bowel sounds active. No organomegaly. No abdominal bruits. Extremities: reveal no edema. No clubbing or cyanosis. There is scabbing ulcers of the left lower extremity. Evidence of chronic venous stasis. There is evidence of foot drop. Neurologically awake, alert, oriented x3 with well-coordinated movements. No focal deficits noted Skin: No rash or skin lesions. Psychiatric: Coperative. Nonsuicidal Musculoskeletal: No joint swelling or deformity. Normal range of motion. - Labs CBC & Chem 7: 08/07/17 08:02 08/05/17 15:41 Labs: Abnormal Lab Results - Last 24 Hours (Table) 08/05/17 08/05/17 08/05/17 Range/Units 15:41 15:41 17:06 RBC 2.97 L (3.80-5.40) m/uL Hgb 9.0 L (11.4-16.0) gm/dL Hct 28.7 L (34.0-46.0) % MCHC (31.0-37.0) g/dL RDW 17.0 H (11.5-15.5) % Chloride 111 H (98-107) mmol/L BUN 5 L (7-17) mg/dL Glucose 109 H (74-99) mg/dL POC Glucose (mg/dL) 145 H (75-99) mg/dL Calcium 8.3 L (8.4-10.2) mg/dL Total Bilirubin 0.1 L (0.2-1.3) mg/dL Alkaline Phosphatase 127 H (38-126) U/L Total Protein 5.9 L (6.3-8.2) g/dL Albumin 2.5 L (3.5-5.0) g/dL 08/05/17 08/06/17 08/06/17 Range/Units 20:37 07:29 12:40 RBC 2.92 L (3.80-5.40) m/uL Hgb 8.8 L (11.4-16.0) gm/dL Hct 28.9 L (34.0-46.0) % MCHC 30.3 L (31.0-37.0) g/dL RDW 16.8 H (11.5-15.5) % Chloride (98-107) mmol/L BUN (7-17) mg/dL Glucose (74-99) mg/dL POC Glucose (mg/dL) 204 H 121 H (75-99) mg/dL Calcium (8.4-10.2) mg/dL Total Bilirubin (0.2-1.3) mg/dL Alkaline Phosphatase (38-126) U/L Total Protein (6.3-8.2) g/dL Albumin (3.5-5.0) g/dL Assessment and Plan Assessment: #1 Acute blood loss anemia in a patient with a known history of previous GI bleed and previous Clinton-en-Y gastric bypass surgery. Stool positive for occult blood. Initial hemoglobin 4.5. She is status post 3 units of packed red blood cells transfusions. Current hemoglobin is at 8.9--8.8. The patient is currently off anticoagulants. CAT scan of the abdomen and pelvis is nonspecific. No evidence of active bleeding. Patient had colonoscopy 3 attempted but aborted due to poor bowel prep. EGD showed no active bleeding. Patient is still complaining of abdominal pain today along with bloating and distention. General surgery is following and is planning for colonoscopy on Tuesday. Continued on clear liquids now. 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 Currently on Bactrim and Levaquin #3 History of DVT, patient was receiving anticoagulation patient is currently off anticoagulants. She has an IVC filter in place. #4 History of morbid obesity status post [place]-en-Y procedure with previous [place] filter placement. #5 Diabetes mellitus. #6 Hypertension. #7 Fibromyalgia. #8 Osteoarthritis with multiple orthopedic surgeries including bilateral hip replacements, left knee replacement. Foot drop. #9 History of obstructive sleep apnea not utilizing CPAP in the outpatient setting. #10 History of anxiety/depression. #11 Poor overall functional performance the above-mentioned multiple comorbidities. #12 [facility] resident and wheelchair bound. Time with Patient: Greater than 30
--- NOTE | 2017-08-07 22:10 | P.PN ---
Subjective Progress Note Date: 08/07/17 Principal diagnosis: Anemia This is a continue present 66-year-old white female admitted for anemia. She has a medical history of diabetes mellitus, deep vein thrombosis, fibromyalgia, GI bleed, hyperlipidemia, hypertension, previous morbid obesity status post [place] -en-Y gastric bypass procedure, sepsis with septic shock, SVT, cellulitis of the left lower extremity, chronic kidney disease stage III, sleep apnea not on CPAP, atrial fibrillation. The patient also has a history of Lizzy filter placement. She is also anticoagulated on Elliquis. Previous MRSA, previous VRE , multiple orthopedic surgeries. She is wheelchair-bound. She was brought here to the emergency room after having outpatient labs that revealed a hemoglobin of 4.5. CT of the abdomen pelvis showed gaseous distention of colon. Patient had attempted colonoscopy procedures 3 and was unsuccessful due to poor bowel prep and also large bowel movement on the procedure table. EGD showed no evidence of bleeding. 08/06/2017 Patient is still complaining of abdominal pain and distention. General surgery is following and is planning for colonoscopy on Tuesday. Hemoglobin 8.8 today. Patient does not have any bowel movement today. Patient is unable to sit on the commode by herself. No fever no chills. No complaints of chest pain or shortness of breath. No other acute overnight issues. Patient continues to request for pain medications. 08/07/2017 Patient is still complaining of abdominal pain mainly in the lower abdomen. Patient did not have any bowel movement today. Abdominal x-ray showed distended bowel loops and ileus. Currently patient is kept on nothing by mouth. Patient was started on suppositories. Otherwise no complaints of chest pain or shortness of breath. No fever no chills. No nausea vomiting. all other review of systems negative except the above Current medications reviewed Objective - Vital Signs Vital signs: Vital Signs Temp 98.8 F 08/07/17 15:00 Pulse 72 08/07/17 15:00 Resp 18 08/07/17 15:00 BP 104/53 08/07/17 15:00 Pulse Ox 98 08/07/17 15:00 Intake & Output 08/07/17 08/07/17 08/08/17 06:59 18:59 06:59 Intake Total 360 Output Total 0 0 Balance 0 360 Weight 79.9 kg Intake: Oral 360 Output: Urine 0 0 Stool 0 0 Other: Voiding Method Diaper Diaper # Voids 2 1 1 # Bowel Movements 1 - Exam PHYSICAL EXAMINATION: Patient is lying in the bed comfortably, no acute distress, awake alert and oriented.. HEENT: Normocephalic. Neck is supple. Pupils reactive. Nostrils clear. Oral cavity is moist. Ears reveal no drainage. Neck reveals no JVD, carotid bruits, or thyromegaly. CHEST EXAMINATION: Trachea is central. Symmetrical expansion. Lung [place] clear to auscultation and percussion. CARDIAC: Normal S1, S2 with no gallops. No murmurs ABDOMEN: Soft. Distended with mild tenderness. Bowel sounds active. No organomegaly. No abdominal bruits. Extremities: reveal no edema. No clubbing or cyanosis. There is scabbing ulcers of the left lower extremity. Evidence of chronic venous stasis. There is evidence of foot drop. Neurologically awake, alert, oriented x3 with well-coordinated movements. No focal deficits noted Skin: No rash or skin lesions. Psychiatric: Coperative. Nonsuicidal Musculoskeletal: No joint swelling or deformity. Normal range of motion. - Labs CBC & Chem 7: 08/07/17 08:02 08/05/17 15:41 Labs: Abnormal Lab Results - Last 24 Hours (Table) 08/07/17 08/07/17 08/07/17 Range/Units 08:02 12:57 17:49 RBC 2.84 L (3.80-5.40) m/uL Hgb 8.7 L (11.4-16.0) gm/dL Hct 28.1 L (34.0-46.0) % MCHC 30.8 L (31.0-37.0) g/dL RDW 17.8 H (11.5-15.5) % POC Glucose (mg/dL) 117 H 59 L (75-99) mg/dL 08/07/17 Range/Units 18:26 RBC (3.80-5.40) m/uL Hgb (11.4-16.0) gm/dL Hct (34.0-46.0) % MCHC (31.0-37.0) g/dL RDW (11.5-15.5) % POC Glucose (mg/dL) 112 H (75-99) mg/dL Assessment and Plan Assessment: #1 Acute blood loss anemia in a patient with a known history of previous GI bleed and previous Clinton-en-Y gastric bypass surgery. Stool positive for occult blood. Initial hemoglobin 4.5. She is status post 3 units of packed red blood cells transfusions. Current hemoglobin is at 8.9--8.8. The patient is currently off anticoagulants. CAT scan of the abdomen and pelvis is nonspecific. No evidence of active bleeding. Patient had colonoscopy 3 attempted but aborted due to poor bowel prep. EGD showed no active bleeding. Patient is still complaining of abdominal pain today along with bloating and distention. General surgery is following and is planning for colonoscopy on Tuesday. Abdominal x-ray on 08/07/2017 Showed distended bowel loops and ileus. Currently patient was kept on nothing by mouth. 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 Currently on Bactrim and Levaquin #3 History of DVT, patient was receiving anticoagulation patient is currently off anticoagulants. She has an IVC filter in place. #4 History of morbid obesity status post Clinton-en-Y procedure with previous Lizzy filter placement. #5 Diabetes mellitus. #6 Hypertension. #7 Fibromyalgia. #8 Osteoarthritis with multiple orthopedic surgeries including bilateral hip replacements, left knee replacement. Foot drop. #9 History of obstructive sleep apnea not utilizing CPAP in the outpatient setting. #10 History of anxiety/depression. #11 Poor overall functional performance the above-mentioned multiple comorbidities. #12 [facility] resident and wheelchair bound. Time with Patient: Greater than 30
[2017-08-08] MEDS: HYDROmorphone 2 MG/ML 1 ML SYRINGE IVP PRN ×6 (01:22→21:34)
[2017-08-08] MEDS: GENTAMICIN 0.1% CREAM 15 GM TUBE TOPICAL SCH ×3 (01:24→15:46)
[2017-08-08 06:45] LABS: Anisocytosis Slight; Basophils % (A) 0 %; Eosinophils # (A) 0.2 k/uL (0-0.7); Eosinophils % (A) 5 %; HCT 27.7 % (34.0-46.0); HGB 7.9 gm/dL (11.4-16.0); Hypochromasia Marked; Lymphocytes # (A) 1.7 k/uL (1.0-4.8); Lymphocytes % (A) 40 %; MCH 29.2 pg (25.0-35.0); MCHC 28.7 g/dL (31.0-37.0); MCV 101.6 fL (80.0-100.0); Macrocytosis Moderate; Mean Platelet Volume 7.5; Monocytes # (A) 0.2 k/uL (0-1.0); Monocytes % (A) 4 %; Neutrophils % (A) 48 %; Platelet Count 190 k/uL (150-450); RBC 2.72 m/uL (3.80-5.40); RDW 17.5 % (11.5-15.5); WBC 4.2 k/uL (3.8-10.6)
[2017-08-08 07:25] LABS: Glucose,Whole Blood 94 mg/dL (75-99)
[2017-08-08] MEDS: INSULIN ASPART 100 UNIT/ML 1 ML 10 ML VIAL SQ SCH ×4 (07:30→21:17)
[2017-08-08 07:34] LABS: Anion Gap 5 mmol/L; Blood Urea Nitrogen 8 mg/dL (7-17); Calcium 8.4 mg/dL (8.4-10.2); Carbon Dioxide 25 mmol/L (22-30); Chloride 112 mmol/L (98-107); Glucose 87 mg/dL (74-99); Potassium 4.6 mmol/L (3.5-5.1); Sodium 142 mmol/L (137-145)
[2017-08-08] MEDS: oxyCODONE ER 10 MG TAB.ER.12H PO SCH ×2 (07:43→20:30)
[2017-08-08] MEDS: ESCITALOPRAM 10 MG TAB PO SCH (07:46)
[2017-08-08] MEDS: LEVOFLOXACIN 500 MG TAB PO SCH (07:47)
[2017-08-08] MEDS: SULFAMETHOX-TMP 800-160MG 1 EACH TAB PO SCH ×2 (07:47→20:33)
[2017-08-08] MEDS: ALLOPURINOL 100 MG TAB PO SCH ×2 (07:47→20:32)
[2017-08-08] MEDS: amLODIPine 5 MG TAB PO SCH (07:48)
[2017-08-08] MEDS: MULTIVITAMINS, THERA 1 EACH TAB PO SCH (07:48)
[2017-08-08] MEDS: metFORMIN 500 MG TAB PO SCH ×2 (07:49→20:33)
[2017-08-08] MEDS: PANTOPRAZOLE 40 MG/10 ML VIAL IV SCH (07:49)
--- NOTE | 2017-08-08 08:39 | P.PN ---
Subjective Principal diagnosis: Continuing care This is a continue present 66-year-old white female essentially admitted for possible GI bleed with anemia. The patient has been stabilizing but yesterday developed significant abdominal bloating. Abdominal x-ray shows probable ileus with hemicolonic dilatation. The patient does seem actually quite bloated and then significant amount of pain today. She is now nothing by mouth. Objective - Vital Signs Vital signs: Vital Signs Temp 98.6 F 08/08/17 07:00 Pulse 67 08/08/17 07:00 Resp 18 08/08/17 07:00 BP 108/61 08/08/17 07:00 Pulse Ox 97 08/08/17 07:00 Intake & Output 08/07/17 08/08/17 08/08/17 18:59 06:59 18:59 Intake Total 360 Output Total 0 Balance 360 Weight 79.9 kg Intake: Oral 360 Output: Urine 0 Stool 0 Other: Voiding Method Diaper Diaper Incontinent # Voids 1 2 # Bowel Movements 1 - Constitutional General appearance: Present: average body habitus - EENT Eyes: Absent: abnormal pupil - Neck Neck: Absent: lymphadenopathy - Respiratory Respiratory: bilateral: CTA - Cardiovascular Rhythm: regular Heart sounds: normal: S1, S2 - Gastrointestinal General gastrointestinal: Present: distended, normal bowel sounds - Labs CBC & Chem 7: 08/08/17 06:18 08/08/17 06:00 Labs: Abnormal Lab Results - Last 24 Hours (Table) 08/07/17 08/07/17 08/07/17 Range/Units 08:02 12:57 17:49 RBC 2.84 L (3.80-5.40) m/uL Hgb 8.7 L (11.4-16.0) gm/dL Hct 28.1 L (34.0-46.0) % MCV (80.0-100.0) fL MCHC 30.8 L (31.0-37.0) g/dL RDW 17.8 H (11.5-15.5) % Chloride (98-107) mmol/L POC Glucose (mg/dL) 117 H 59 L (75-99) mg/dL 08/07/17 08/08/17 08/08/17 Range/Units 18:26 06:00 06:18 RBC 2.72 L (3.80-5.40) m/uL Hgb 7.9 L (11.4-16.0) gm/dL Hct 27.7 L (34.0-46.0) % MCV 101.6 H (80.0-100.0) fL MCHC 28.7 L (31.0-37.0) g/dL RDW 17.5 H (11.5-15.5) % Chloride 112 H (98-107) mmol/L POC Glucose (mg/dL) 112 H (75-99) mg/dL Assessment and Plan (1) Anemia Current Visit: Yes Status: Acute Code(s): D64.9 - ANEMIA, UNSPECIFIED SNOMED Code(s): 513775548 (2) GI bleed Current Visit: Yes Status: Acute Code(s): K92.2 - GASTROINTESTINAL HEMORRHAGE, UNSPECIFIED SNOMED Code(s): 64100664 (3) Cellulitis of leg Current Visit: No Status: Acute Code(s): L03.119 - CELLULITIS OF UNSPECIFIED PART OF LIMB SNOMED Code(s): 316581839 Plan: We'll continue follow from a surgical perspective. I'll prep has been delayed secondary to ileus element. Question need for Reglan versus repeat computed tomography scan of abdomen. Continue to follow with surgery otherwise. Check CBC and CMP in a.m.
[2017-08-08] MEDS: BISACODYL 10 MG SUPP RECTAL SCH (11:23)
[2017-08-08 12:12] LABS: Glucose,Whole Blood 141 mg/dL (75-99)
[2017-08-08] MEDS ORDERED: RX INFO: IV CONTRAST WAS GIVEN 1 EACH MISC MISCELLANE PRN (13:38)
--- NOTE | 2017-08-08 13:45 | P.PN ---
<Judith Dotson - Last Filed: 08/08/17 13:40> Subjective Progress Note Date: 08/08/17 66-year-old female sitting up in a chair continues to report having diffuse abdominal pain. Patient states has not had a bowel movement. Patient is asking to have diet advanced. Reports no nausea vomiting. Reports feeling bloated increased abdominal pain Objective - Vital Signs Vital signs: Vital Signs Temp 98.6 F 08/08/17 07:00 Pulse 67 08/08/17 07:00 Resp 18 08/08/17 07:00 BP 108/61 08/08/17 07:00 Pulse Ox 97 08/08/17 07:00 Intake & Output 08/07/17 08/08/17 08/08/17 18:59 06:59 18:59 Intake Total 360 Output Total 0 Balance 360 Weight 79.9 kg Intake: Oral 360 Output: Urine 0 Stool 0 Other: Voiding Method Diaper Diaper Incontinent # Voids 1 2 # Bowel Movements 1 - Exam Physical exam 66 female sitting up in a chair does not appear in any acute distress Lungs adequate air movement bilaterally on room air Heart S1-S2 Abdomen diffuse tenderness across the abdominal wall facial grimacing with palpitation a few hypoactive bowel tones states no stool states passing gas no nausea no vomiting asking for diet to be advanced Extremities no edema - Labs CBC & Chem 7: 08/08/17 06:18 08/08/17 06:00 Labs: Abnormal Lab Results - Last 24 Hours (Table) 08/07/17 08/07/17 08/08/17 Range/Units 17:49 18:26 06:00 RBC (3.80-5.40) m/uL Hgb (11.4-16.0) gm/dL Hct (34.0-46.0) % MCV (80.0-100.0) fL MCHC (31.0-37.0) g/dL RDW (11.5-15.5) % Chloride 112 H (98-107) mmol/L POC Glucose (mg/dL) 59 L 112 H (75-99) mg/dL 08/08/17 08/08/17 Range/Units 06:18 12:06 RBC 2.72 L (3.80-5.40) m/uL Hgb 7.9 L (11.4-16.0) gm/dL Hct 27.7 L (34.0-46.0) % MCV 101.6 H (80.0-100.0) fL MCHC 28.7 L (31.0-37.0) g/dL RDW 17.5 H (11.5-15.5) % Chloride (98-107) mmol/L POC Glucose (mg/dL) 141 H (75-99) mg/dL Assessment and Plan Assessment: Impression Present on admission acute blood loss anemia suspect due to GI bleed status post 4 units packed red blood cells History of bariatric weight loss surgery gastric bypass Status post EGD August 01 no acute findings no evidence of an upper GI bleed Computed tomography scan abdomen pelvis evidence of a hiatal hernia Obstructive sleep apnea not utilizing CPAP in the outpatient setting History of a DVT on anticoagulation with an IVC filter in place Previous loreta en y gastric bypass surgery 3 attempts at a colonoscopy each aborted for incomplete bowel prep Abdominal x-ray suggest ileus Plan Computed tomography scan abdomen and pelvis with oral contrast now follow up on results PT OT eval Further surgical recommendations pending Progress note dictated for Dr. bowen The above impression and plan of care have been discussed and directed by signing physician. Judith Dotson nurse practitioner acting as scribe for signing physician. <Tavo Bowen - Last Filed: 08/08/17 15:25> Objective - Vital Signs Vital signs: Vital Signs Temp 97.5 F L 08/08/17 15:00 Pulse 67 08/08/17 15:00 Resp 18 08/08/17 15:00 BP 105/53 08/08/17 15:00 Pulse Ox 100 08/08/17 15:00 Intake & Output 08/07/17 08/08/17 08/08/17 18:59 06:59 18:59 Intake Total 360 Output Total 0 Balance 360 Weight 79.9 kg Intake: Oral 360 Output: Urine 0 Stool 0 Other: Voiding Method Diaper Diaper Incontinent # Voids 1 2 # Bowel Movements 1 - Labs CBC & Chem 7: 08/08/17 06:18 08/08/17 06:00 Labs: Abnormal Lab Results - Last 24 Hours (Table) 08/07/17 08/07/17 08/08/17 Range/Units 17:49 18:26 06:00 RBC (3.80-5.40) m/uL Hgb (11.4-16.0) gm/dL Hct (34.0-46.0) % MCV (80.0-100.0) fL MCHC (31.0-37.0) g/dL RDW (11.5-15.5) % Chloride 112 H (98-107) mmol/L POC Glucose (mg/dL) 59 L 112 H (75-99) mg/dL 08/08/17 08/08/17 Range/Units 06:18 12:06 RBC 2.72 L (3.80-5.40) m/uL Hgb 7.9 L (11.4-16.0) gm/dL Hct 27.7 L (34.0-46.0) % MCV 101.6 H (80.0-100.0) fL MCHC 28.7 L (31.0-37.0) g/dL RDW 17.5 H (11.5-15.5) % Chloride (98-107) mmol/L POC Glucose (mg/dL) 141 H (75-99) mg/dL
[2017-08-08] MEDS: IOHEXOL 350 MG/ML 25 ML BOTTLE (ORAL USE) PO PRN ×2 (14:57→15:44)
[2017-08-08 16:48] LABS: Glucose,Whole Blood 107 mg/dL (75-99)
[2017-08-08] MEDS: BISACODYL 5 MG TABLET.DR PO PRN (17:48)
[2017-08-08] MEDS: MAGNESIUM HYDROXIDE 2,400 MG/10 ML CUP PO PRN (17:48)
--- NOTE | 2017-08-08 17:57 | CT ---
EXAMINATION TYPE: CT abdomen pelvis w con DATE OF EXAM: 08/08/2017 COMPARISON: 07/30/2017 HISTORY: Generalized pain CT DLP: 1417.6 mGycm Automated exposure control for dose reduction was used. TECHNIQUE: Helical acquisition of images was performed from the lung bases through the pelvis. CONTRAST: Performed with Oral Contrast and with IV Contrast, patient injected with 100 mL of Omnipaque 300. FINDINGS: There is some infiltrate at the left posterior lung base with left pleural effusion. There is some di lation of the biliary tree. There are surgical clips from cholecystectomy. Spleen appears normal. The re is no evidence of a pancreatic mass. There is wall thickening involving the redundant sigmoid colo n. There is also wall thickening involving the transverse colon. There is no adrenal mass. Kidneys show satisfactory contrast opacification. There is no hydronephrosi s. There is no retroperitoneal adenopathy. Abdominal aorta is atheromatous. There is a dilated rectum with fecal material. This measures up to 7 cm. There is a large amount of large bowel gas. There is no ascites. Bladder distends smoothly. There is metal artifact from bilateral hip surgery. IMPRESSION: THERE IS EVIDENCE OF LEFT LOWER LOBE PNEUMONIA AND LEFT PLEURAL EFFUSION THAT IS SLIGHTLY WORSE THAN LAST EXAM. THERE IS SMALL RIGHT PLEURAL EFFUSION. MILDLY DILATED BILIARY TREE THERE IS PROBABLY NOT CHANGED COMPARED TO LAST EXAM. THERE ARE MULTIPLE FLUID AND GAS-FILLED MILDLY DILATED LOOPS OF LARGE BOWEL WITH WALL THICKENING THAT IS SIGNIFICANTLY WORSE THAN LAST EXAM AND CONSISTENT WITH LARGE BOWEL ILEUS. WALL THICKENING RAISES THE POSSIBILITY OF ISCHEMIC COLITIS. ATHEROSCLEROTIC VASCULAR DISEASE. THE WALL THICKENING IS NEW COM PARED TO OLD EXAM. FOLLOW-UP IS RECOMMENDED.
[2017-08-08] MEDS: ALPRAZolam 0.25 MG TAB PO PRN (20:31)
[2017-08-08] MEDS: LACTOBACILLUS ACIDOPH & BULGAR 1 EACH PACKET PO SCH (20:31)
[2017-08-08] MEDS: MELATONIN 3 MG TABLET PO SCH (20:31)
[2017-08-08] MEDS: FERROUS SULFATE 325 MG TAB PO SCH (20:32)
[2017-08-08] MEDS: CHOLECALCIFEROL 1,000 UNIT TAB PO SCH (20:32)
[2017-08-08] MEDS: ATORVASTATIN 40 MG TAB PO SCH (20:32)
[2017-08-08] MEDS: SENNOSIDES 8.6 MG TAB PO SCH (20:33)
[2017-08-08] MEDS: POTASSIUM CHLORIDE ER 20 MEQ TAB.ER PO SCH (20:33)
[2017-08-08] MEDS: POLYETHYLENE GLYCOL 3350 17 GM POWD.PACK PO SCH (20:33)
[2017-08-08 21:04] LABS: Glucose,Whole Blood 124 mg/dL (75-99)
[2017-08-09] MEDS: HYDROmorphone 0.5 MG/0.5 ML SYRINGE IVP PRN ×2 (01:54→06:06)
[2017-08-09] MEDS: GENTAMICIN 0.1% CREAM 15 GM TUBE TOPICAL SCH ×3 (03:16→15:24)
[2017-08-09] MEDS: SODIUM CHLORIDE 0.9% 1,000 ML IV SCH (03:17)
[2017-08-09 07:05] LABS: Glucose,Whole Blood 93 mg/dL (75-99)
[2017-08-09 07:38] LABS: Anisocytosis Slight; HCT 25.7 % (34.0-46.0); HGB 7.9 gm/dL (11.4-16.0); Hypochromasia Marked; MCH 30.1 pg (25.0-35.0); MCHC 30.7 g/dL (31.0-37.0); MCV 97.8 fL (80.0-100.0); Macrocytosis Slight; Mean Platelet Volume 7.9; Platelet Count 166 k/uL (150-450); RBC 2.63 m/uL (3.80-5.40); RDW 17.1 % (11.5-15.5); WBC 4.8 k/uL (3.8-10.6)
[2017-08-09 07:46] LABS: ALT 40 U/L (9-52); AST 40 U/L (14-36); Albumin 2.3 g/dL (3.5-5.0); Alkaline Phosphatase 119 U/L (38-126); Anion Gap 4 mmol/L; Blood Urea Nitrogen 9 mg/dL (7-17); Calcium 8.7 mg/dL (8.4-10.2); Carbon Dioxide 25 mmol/L (22-30); Chloride 111 mmol/L (98-107); Glucose 85 mg/dL (74-99); Potassium 5.6 mmol/L (3.5-5.1); Sodium 140 mmol/L (137-145); Total Bilirubin 0.1 mg/dL (0.2-1.3); Total Protein 5.5 g/dL (6.3-8.2)
[2017-08-09] MEDS: ALLOPURINOL 100 MG TAB PO SCH ×2 (08:13→22:23)
[2017-08-09] MEDS: MULTIVITAMINS, THERA 1 EACH TAB PO SCH (08:13)
[2017-08-09] MEDS: INSULIN ASPART 100 UNIT/ML 1 ML 10 ML VIAL SQ SCH ×4 (08:13→22:24)
[2017-08-09] MEDS: metFORMIN 500 MG TAB PO SCH ×2 (08:14→22:23)
[2017-08-09] MEDS: SULFAMETHOX-TMP 800-160MG 1 EACH TAB PO SCH ×2 (08:14→22:23)
[2017-08-09] MEDS: LEVOFLOXACIN 250 MG TAB PO SCH (08:15)
[2017-08-09] MEDS: amLODIPine 5 MG TAB PO SCH (08:15)
[2017-08-09] MEDS: PANTOPRAZOLE 40 MG/10 ML VIAL IV SCH (08:15)
[2017-08-09] MEDS: oxyCODONE ER 10 MG TAB.ER.12H PO SCH ×2 (08:19→22:22)
[2017-08-09] MEDS: BISACODYL 10 MG SUPP RECTAL SCH (08:20)
[2017-08-09] MEDS: HYDROmorphone 2 MG/ML 1 ML SYRINGE IVP PRN ×3 (11:35→20:32)
[2017-08-09 11:42] LABS: Glucose,Whole Blood 101 mg/dL (75-99)
--- NOTE | 2017-08-09 12:07 | P.PN ---
Subjective Progress Note Date: 08/09/17 66-year-old female sitting up in bed. Patient states she's hungry is asking for her diet to be advanced. Nursing reports patient has been incontinent of several brown liquid watery stools. Currently this morning is denying abdominal discomfort when questioning. CAT scan of the abdomen pelvis report was reviewed. The report indicates wall thickening significantly worse consistent with a large bowel ileus possibility of ischemic colitis states she cannot drink anymore bowel prep hemoglobin this morning 7.9 it was 7.9 the day before nursing reports patient is taking IV pain medication dilaudid every 4 hours for lower back pain Objective - Vital Signs Vital signs: Vital Signs Temp 98.1 F 08/09/17 07:00 Pulse 71 08/09/17 07:00 Resp 18 08/09/17 07:00 BP 122/69 08/09/17 07:00 Pulse Ox 99 08/09/17 07:00 Intake & Output 08/08/17 08/09/17 08/09/17 18:59 06:59 18:59 Intake Total 480 Balance 480 Intake: Oral 480 Other: # Voids 1 3 # Bowel Movements 1 - Exam Physical exam 66-year-old female sitting up in bed asking for diet to be advanced status hungry Lungs adequate air movement bilaterally Heart S1-S2 audible regular Abdomen no facial grimacing with palpitation to the abdominal wall reports no nausea vomiting incontinently urine nursing reports patient had 1 bowel movement this morning liquid brown Extremities trace pedal edema bilaterally - Labs CBC & Chem 7: 08/11/17 08:42 08/09/17 07:20 Labs: Abnormal Lab Results - Last 24 Hours (Table) 08/08/17 08/08/17 08/08/17 Range/Units 12:06 16:42 20:51 RBC (3.80-5.40) m/uL Hgb (11.4-16.0) gm/dL Hct (34.0-46.0) % MCHC (31.0-37.0) g/dL RDW (11.5-15.5) % Potassium (3.5-5.1) mmol/L Chloride (98-107) mmol/L POC Glucose (mg/dL) 141 H 107 H 124 H (75-99) mg/dL Total Bilirubin (0.2-1.3) mg/dL AST (14-36) U/L Total Protein (6.3-8.2) g/dL Albumin (3.5-5.0) g/dL 08/09/17 08/09/17 08/09/17 Range/Units 07:20 07:20 11:18 RBC 2.63 L (3.80-5.40) m/uL Hgb 7.9 L (11.4-16.0) gm/dL Hct 25.7 L (34.0-46.0) % MCHC 30.7 L (31.0-37.0) g/dL RDW 17.1 H (11.5-15.5) % Potassium 5.6 H (3.5-5.1) mmol/L Chloride 111 H (98-107) mmol/L POC Glucose (mg/dL) 101 H (75-99) mg/dL Total Bilirubin 0.1 L (0.2-1.3) mg/dL AST 40 H (14-36) U/L Total Protein 5.5 L (6.3-8.2) g/dL Albumin 2.3 L (3.5-5.0) g/dL Assessment and Plan Assessment: Impression Present on admission acute blood loss anemia suspect due to GI bleed status post 4 units packed red blood cells History of bariatric weight loss surgery gastric bypass Status post EGD August 01 no acute findings no evidence of an upper GI bleed Computed tomography scan abdomen pelvis evidence of a hiatal hernia Obstructive sleep apnea not utilizing CPAP in the outpatient setting History of a DVT on anticoagulation with an IVC filter in place Previous loreta en y gastric bypass surgery 3 attempts at a colonoscopy each aborted for incomplete bowel prep Abdominal x-ray suggest ileus Debilitated chronic Plan PT OT eval attempt to increase activity Further surgical recommendations pending Continue bowel stimulant DVT and GI prophylaxis Progress note dictated for Dr. bowen The above impression and plan of care have been discussed and directed by signing physician. Judith Dotson nurse practitioner acting as scribe for signing physician.
[2017-08-09 17:09] LABS: Glucose,Whole Blood 174 mg/dL (75-99)
[2017-08-09 21:07] LABS: Glucose,Whole Blood 118 mg/dL (75-99)
[2017-08-09] MEDS: POTASSIUM CHLORIDE ER 20 MEQ TAB.ER PO SCH (22:22)
[2017-08-09] MEDS: SENNOSIDES 8.6 MG TAB PO SCH (22:22)
[2017-08-09] MEDS: MELATONIN 3 MG TABLET PO SCH (22:23)
[2017-08-09] MEDS: LACTOBACILLUS ACIDOPH & BULGAR 1 EACH PACKET PO SCH (22:23)
[2017-08-09] MEDS: CHOLECALCIFEROL 1,000 UNIT TAB PO SCH (22:23)
[2017-08-09] MEDS: ATORVASTATIN 40 MG TAB PO SCH (22:23)
[2017-08-09] MEDS: POLYETHYLENE GLYCOL 3350 17 GM POWD.PACK PO SCH (22:24)
[2017-08-09] MEDS: FERROUS SULFATE 325 MG TAB PO SCH (22:24)
[2017-08-09] MEDS: ALPRAZolam 0.25 MG TAB PO PRN (22:48)
[2017-08-10] MEDS: HYDROmorphone 2 MG/ML 1 ML SYRINGE IVP PRN ×2 (00:41→05:01)
[2017-08-10] MEDS: GENTAMICIN 0.1% CREAM 15 GM TUBE TOPICAL SCH ×3 (00:51→15:09)
[2017-08-10] MEDS: SODIUM CHLORIDE 0.9% 1,000 ML IV SCH (04:26)
[2017-08-10 07:46] LABS: Glucose,Whole Blood 91 mg/dL (75-99)
[2017-08-10] MEDS: INSULIN ASPART 100 UNIT/ML 1 ML 10 ML VIAL SQ SCH ×4 (07:57→21:35)
[2017-08-10] MEDS: BISACODYL 10 MG SUPP RECTAL SCH (08:21)
[2017-08-10] MEDS: LEVOFLOXACIN 250 MG TAB PO SCH (08:21)
[2017-08-10] MEDS: PANTOPRAZOLE 40 MG/10 ML VIAL IV SCH (08:21)
[2017-08-10] MEDS: SULFAMETHOX-TMP 800-160MG 1 EACH TAB PO SCH ×2 (08:22→21:34)
[2017-08-10] MEDS: ALLOPURINOL 100 MG TAB PO SCH ×2 (08:22→21:33)
[2017-08-10] MEDS: amLODIPine 5 MG TAB PO SCH (08:22)
[2017-08-10] MEDS: MULTIVITAMINS, THERA 1 EACH TAB PO SCH (08:22)
[2017-08-10] MEDS: metFORMIN 500 MG TAB PO SCH ×2 (08:22→21:33)
[2017-08-10] MEDS: oxyCODONE ER 10 MG TAB.ER.12H PO SCH ×2 (08:24→21:26)
--- NOTE | 2017-08-10 09:52 | P.PN ---
<Tavo Bowne - Last Filed: 08/10/17 19:17> Objective - Vital Signs Vital signs: Vital Signs Temp 97.3 F L 08/10/17 15:00 Pulse 68 08/10/17 15:00 Resp 16 08/10/17 15:00 BP 105/54 08/10/17 15:00 Pulse Ox 99 08/10/17 15:00 Intake & Output 08/10/17 08/10/17 08/11/17 06:59 18:59 06:59 Intake Total 480 Balance 480 Intake: Oral 480 Other: Voiding Method Diaper Incontinent # Voids 4 2 # Bowel Movements 1 - Labs CBC & Chem 7: 08/09/17 07:20 08/09/17 07:20 Labs: Abnormal Lab Results - Last 24 Hours (Table) 08/09/17 08/10/17 08/10/17 Range/Units 21:01 11:47 16:44 POC Glucose (mg/dL) 118 H 107 H 119 H (75-99) mg/dL <Judith Dotson - Last Filed: 08/11/17 11:42> Subjective Progress Note Date: 08/10/17 66-year-old female seen and examined. Upon entering the room patient's eyes are closed resting comfortably with palpitation to the abdominal wall no facial grimacing nursing reports patient did have one bowel movement last night currently tolerating a regular diet no nausea no vomiting. Did discuss with the patient the IV dilaudid will be stopped and oral analgesics initiated patient [facility]oc[facility] . Anticipate the patient to be discharged within 24 hours if tolerating a diet. No surgical intervention at this time. Will not attempt to repeat a colonoscopy at this time The plan of care discussed with the patient Objective - Vital Signs Vital signs: Vital Signs Temp 97.3 F L 08/10/17 06:33 Pulse 64 08/10/17 06:33 Resp 20 08/10/17 06:33 BP 125/56 08/10/17 06:33 Pulse Ox 100 08/10/17 06:33 Intake & Output 08/09/17 08/10/17 08/10/17 18:59 06:59 18:59 Intake Total 960 Balance 960 Intake: Oral 960 Other: # Voids 3 4 1 # Bowel Movements 2 - Exam Physical exam 66-year-old female resting in bed appears in no acute distress Lungs adequate air movement bilaterally Heart S1-S2 audible regular Abdomen soft no facial grimacing with palpitation to the abdominal wall tolerated the diet no nausea no vomiting urinating no difficulty bowel tones present not distended Extremities trace pedal edema bilaterally - Labs CBC & Chem 7: 08/11/17 08:42 08/09/17 07:20 Labs: Abnormal Lab Results - Last 24 Hours (Table) 08/09/17 08/09/17 08/09/17 Range/Units 11:18 17:07 21:01 POC Glucose (mg/dL) 101 H 174 H 118 H (75-99) mg/dL Assessment and Plan Assessment: Impression Present on admission acute blood loss anemia suspect due to GI bleed status post 4 units packed red blood cells History of bariatric weight loss surgery gastric bypass Status post EGD August 01 no acute findings no evidence of an upper GI bleed Computed tomography scan abdomen pelvis evidence of a hiatal hernia Obstructive sleep apnea not utilizing CPAP in the outpatient setting History of a DVT on anticoagulation with an IVC filter in place Previous loreta en y gastric bypass surgery 3 attempts at a colonoscopy each aborted for incomplete bowel prep Abdominal x-ray suggest ileus Debilitated chronic Plan Regular diet if patient tolerates okay to proceed with a discharge to ECF facility from surgical service within the next 24 hours defer to the timing of the discharge to the attending PT OT eval attempt to increase activity No further attempt at a colonoscopy at this time Continue bowel stimulant DVT and GI prophylaxis Progress note dictated for Dr. bowen The above impression and plan of care have been discussed and directed by signing physician. Judith Dotson nurse practitioner acting as scribe for signing physician.
[2017-08-10 11:51] LABS: Glucose,Whole Blood 107 mg/dL (75-99)
[2017-08-10] MEDS: oxyCODONE-APAP 7.5-325MG 1 EACH TAB PO PRN ×2 (12:09→17:11)
[2017-08-10 16:48] LABS: Glucose,Whole Blood 119 mg/dL (75-99)
[2017-08-10] MEDS: ALPRAZolam 0.25 MG TAB PO PRN (21:28)
[2017-08-10] MEDS: SENNOSIDES 8.6 MG TAB PO SCH (21:33)
[2017-08-10] MEDS: POTASSIUM CHLORIDE ER 20 MEQ TAB.ER PO SCH (21:33)
[2017-08-10] MEDS: CHOLECALCIFEROL 1,000 UNIT TAB PO SCH (21:34)
[2017-08-10] MEDS: MELATONIN 3 MG TABLET PO SCH (21:34)
[2017-08-10] MEDS: ATORVASTATIN 40 MG TAB PO SCH (21:34)
[2017-08-10] MEDS: LACTOBACILLUS ACIDOPH & BULGAR 1 EACH PACKET PO SCH (21:34)
[2017-08-10] MEDS: FERROUS SULFATE 325 MG TAB PO SCH (21:34)
[2017-08-10] MEDS: POLYETHYLENE GLYCOL 3350 17 GM POWD.PACK PO SCH (21:35)
[2017-08-10 21:38] LABS: Glucose,Whole Blood 133 mg/dL (75-99)
[2017-08-11 00:15] VITALS: PULSE 69
[2017-08-11] MEDS: SODIUM CHLORIDE 0.9% 1,000 ML IV SCH (01:04)
[2017-08-11] MEDS: GENTAMICIN 0.1% CREAM 15 GM TUBE TOPICAL SCH ×3 (01:06→16:37)
[2017-08-11] MEDS: oxyCODONE-APAP 7.5-325MG 1 EACH TAB PO PRN ×2 (02:49→13:42)
[2017-08-11] MEDS ORDERED: PANTOPRAZOLE 40 MG TABLET PO SCH (07:30)
[2017-08-11 07:41] LABS: Glucose,Whole Blood 96 mg/dL (75-99)
--- NOTE | 2017-08-11 07:56 | P.DS ---
Providers Date of admission: 07/29/17 20:56 Attending physician: Willis Gurrola Consults: 07/29/17 20:56 Consult Physician Stat Consulting Provider: Kirby Wolff Consult Reason/Comments: critical care Do you want consulting provider notified?: Yes Consult Physician Urgent Consulting Provider: Tavo Goel Consult Reason/Comments: gi bleed Do you want consulting provider notified?: Yes 07/29/17 22:14 Consult Physician Routine Consulting Provider: Johnnie Silva Consult Reason/Comments: afib Do you want consulting provider notified?: Yes Primary care physician: Willis Gurrola - Discharge Diagnosis(es) (1) Anemia Current Visit: Yes Status: Acute (2) GI bleed Current Visit: Yes Status: Acute (3) Cellulitis of leg Current Visit: No Status: Acute Hospital Course: This is a discharge summary 66-year-old white female essentially admitted for upper GI bleeding and anemia. The patient had endoscopy upper which did not show significant issue. However, she had significant colitis element on computed tomography scan. She has a underlying history of chronic lower extremity DVT. And she has difficulty ambulating. Multiple colonoscopies were attempted but because of poor prep she was unable to do this. Surgical team opted for observation and she did quite well. However, her watching her anemia closely. She is now been cleared for discharge from a surgical perspective and I will we'll transfer her back to the [facility]. Patient Condition at Discharge: Serious Plan - Discharge Summary New Discharge Prescriptions: New Bisacodyl [Dulcolax] 10 mg RECTAL DAILY supp Continue Atorvastatin [Lipitor] 40 mg PO HS Allopurinol [Zyloprim] 100 mg PO BID Cholecalciferol [Vitamin D3] 1,000 unit PO HS Ferrous Sulfate [Iron (65 MG Elemental)] 650 mg PO HS Magnesium Hydroxide [Milk of Magnesia] 2,400 mg PO DAILY PRN PRN Reason: Constipation Polyethylene Glycol 3350 [Miralax] 17 gm PO DAILY Bisacodyl [Dulcolax] 10 mg PO DAILY PRN PRN Reason: Constipation L.acidoph,Paracasei, B.lactis [Probiotic] 2 cap PO HS Multivitamins, Thera [Multivitamin (formulary)] 1 tab PO DAILY Potassium Chloride ER [K-Dur 20] 20 meq PO HS Melatonin 3 mg PO HS Menthol/Zinc Oxide [Calmoseptine Ointment] 1 applic TOPICAL TID Omeprazole 20 mg PO DAILY Escitalopram [Lexapro] 10 mg PO DAILY Aspirin 81 mg PO HS metFORMIN HCL [Glucophage] 500 mg PO BID Ipratropium-Albuterol Nebulize [Duoneb 0.5 mg-3 mg/3 ml Soln] 3 ml INHALATION RT-QID PRN PRN Reason: Shortness Of Breath Sennosides [Senokot] 8.6 mg PO HS amLODIPine [Norvasc] 5 mg PO DAILY Mylanta Suspension 200-200-20 30 ml PO Q4H PRN PRN Reason: Indigestion Ibuprofen [Motrin] 400 mg PO Q6HR PRN tab PRN Reason: Fever Acetaminophen Tab [Tylenol] 650 mg PO Q4H PRN PRN Reason: Fever And/ Or Pain Gentamicin Sulfate [Gentamicin Sulfate 0.1%] 1 applic TOPICAL Q8H Apixaban [Eliquis] 2.5 mg PO DIRECTED Sulfamethox-Tmp 800-160Mg [Bactrim DS 800-160 mg] 1 tab PO Q12HR Levofloxacin [Levaquin] 500 mg PO DAILY ALPRAZolam [Xanax] 0.25 mg PO BID PRN #60 tab PRN Reason: Anxiety oxyCODONE HCL [OxyCONTIN] 10 mg PO BID #60 tab.er.12h Changed oxyCODONE-APAP 7.5-325MG [Percocet 7.5-325 mg] 1 tab PO Q6HR PRN #120 tab PRN Reason: Pain Discontinued Rivaroxaban [Xarelto] 20 mg PO DAILY Discharge Medication List Atorvastatin [Lipitor] 40 mg PO HS 08/30/15 [History] Allopurinol [Zyloprim] 100 mg PO BID 05/21/16 [History] Cholecalciferol [Vitamin D3] 1,000 unit PO HS 06/29/16 [History] Ferrous Sulfate [Iron (65 MG Elemental)] 650 mg PO HS 06/29/16 [History] Magnesium Hydroxide [Milk of Magnesia] 2,400 mg PO DAILY PRN 06/29/16 [History] Polyethylene Glycol 3350 [Miralax] 17 gm PO DAILY 06/29/16 [History] Bisacodyl [Dulcolax] 10 mg PO DAILY PRN 01/26/17 [History] L.acidoph,Paracasei, B.lactis [Probiotic] 2 cap PO HS 02/20/17 [History] Multivitamins, Thera [Multivitamin (formulary)] 1 tab PO DAILY 02/20/17 [History ] Melatonin 3 mg PO HS 03/23/17 [History] Menthol/Zinc Oxide [Calmoseptine Ointment] 1 applic TOPICAL TID 03/23/17 [ History] Potassium Chloride ER [K-Dur 20] 20 meq PO HS 03/23/17 [History] Aspirin 81 mg PO HS 04/20/17 [History] Escitalopram [Lexapro] 10 mg PO DAILY 04/20/17 [History] Omeprazole 20 mg PO DAILY 04/20/17 [History] metFORMIN HCL [Glucophage] 500 mg PO BID 05/19/17 [History] Ipratropium-Albuterol Nebulize [Duoneb 0.5 mg-3 mg/3 ml Soln] 3 ml INHALATION RT -QID PRN 05/22/17 [History] Mylanta Suspension 200-200-20 30 ml PO Q4H PRN 05/22/17 [History] Sennosides [Senokot] 8.6 mg PO HS 05/22/17 [History] amLODIPine [Norvasc] 5 mg PO DAILY 05/22/17 [History] Ibuprofen [Motrin] 400 mg PO Q6HR PRN tab 05/31/17 [Rx] Acetaminophen Tab [Tylenol] 650 mg PO Q4H PRN 07/29/17 [History] Apixaban [Eliquis] 2.5 mg PO DIRECTED 07/29/17 [History] Gentamicin Sulfate [Gentamicin Sulfate 0.1%] 1 applic TOPICAL Q8H 07/29/17 [ History] Levofloxacin [Levaquin] 500 mg PO DAILY 07/29/17 [History] Sulfamethox-Tmp 800-160Mg [Bactrim DS 800-160 mg] 1 tab PO Q12HR 07/29/17 [ History] ALPRAZolam [Xanax] 0.25 mg PO BID PRN #60 tab 08/10/17 [Rx] Bisacodyl [Dulcolax] 10 mg RECTAL DAILY supp 08/10/17 [Rx] oxyCODONE HCL [OxyCONTIN] 10 mg PO BID #60 tab.er.12h 08/10/17 [Rx] oxyCODONE-APAP 7.5-325MG [Percocet 7.5-325 mg] 1 tab PO Q6HR PRN #120 tab [Rx] Follow up Appointment(s)/Referral(s): Willis Gurrola MD [Primary Care Provider] - 1 Week [facility], [NON-STAFF] - 1 Week Tavo Goel MD [STAFF PHYSICIAN] - 2 Weeks Patient Instructions/Handouts: Gastrointestinal Bleeding (DC) Activity/Diet/Wound Care/Special Instructions: Cardiac, diabetic diet. Diabetic folder given to pt. Activity as tolerated, change position every 2 hours while awake. Fall precautions. PICC line care and card info given. Discharge Disposition: TRANSFER TO SNF/ECF
[2017-08-11 07:57] VITALS: BP 121/61; RESP 16; TEMP 97.6
[2017-08-11] MEDS: INSULIN ASPART 100 UNIT/ML 1 ML 10 ML VIAL SQ SCH ×2 (08:01→12:09)
[2017-08-11] MEDS: ALLOPURINOL 100 MG TAB PO SCH (08:09)
[2017-08-11] MEDS: amLODIPine 5 MG TAB PO SCH (08:09)
[2017-08-11] MEDS: LEVOFLOXACIN 250 MG TAB PO SCH (08:09)
[2017-08-11] MEDS: metFORMIN 500 MG TAB PO SCH (08:09)
[2017-08-11] MEDS: oxyCODONE ER 10 MG TAB.ER.12H PO SCH (08:09)
[2017-08-11] MEDS: SULFAMETHOX-TMP 800-160MG 1 EACH TAB PO SCH (08:09)
[2017-08-11] MEDS: MULTIVITAMINS, THERA 1 EACH TAB PO SCH (08:09)
[2017-08-11] MEDS: BISACODYL 10 MG SUPP RECTAL SCH (08:10)
[2017-08-11 08:50] LABS: Anisocytosis Slight; Basophils % (A) 0 %; Eosinophils # (A) 0.2 k/uL (0-0.7); Eosinophils % (A) 5 %; HGB 7.4 gm/dL (11.4-16.0); Hypochromasia Marked; Lymphocytes # (A) 1.5 k/uL (1.0-4.8); Lymphocytes % (A) 36 %; MCHC 30.8 g/dL (31.0-37.0); MCV 97.3 fL (80.0-100.0); Macrocytosis Slight; Mean Platelet Volume 7.4; Monocytes # (A) 0.2 k/uL (0-1.0); Monocytes % (A) 5 %; Neutrophils # (A) 2.3 k/uL (1.3-7.7); Neutrophils % (A) 53 %; Platelet Count 148 k/uL (150-450); RBC 2.47 m/uL (3.80-5.40); RDW 17.4 % (11.5-15.5); WBC 4.3 k/uL (3.8-10.6)
[2017-08-11] MEDS ORDERED: BISACODYL 5 MG TABLET.DR PO SCH (09:00)
--- NOTE | 2017-08-11 11:42 | P.PN ---
Subjective Progress Note Date: 08/11/17 66-year-old female seen and examined. Currently resting in bed. Patient states she does not want to go through anymore scopes will not drink anymore bowel prep and wants to go back to the [facility] facility. Patient does report the abdominal discomfort has improved. Patient states she can't tolerate having anymore clear liquids or having a bowel prep Objective - Vital Signs Vital signs: Vital Signs Temp 97.6 F 08/11/17 07:00 Pulse 69 08/11/17 07:00 Resp 16 08/11/17 07:00 BP 121/61 08/11/17 07:00 Pulse Ox 96 08/11/17 07:00 Intake & Output 08/10/17 08/11/17 08/11/17 18:59 06:59 18:59 Intake Total 480 1000 Output Total 1 Balance 480 999 Weight 79.9 kg Intake: Oral 480 1000 Output: Urine 0 Urine/Stool Mix 1 Other: Voiding Method Diaper Diaper Incontinent Incontinent # Voids 2 2 # Bowel Movements 1 1 - Exam Physical exam 66-year-old female resting in bed appears in no acute distress Lungs adequate air movement bilaterally Heart S1-S2 audible regular Abdomen soft no facial grimacing with palpitation to the abdominal wall tolerated the diet no nausea no vomiting urinating no difficulty bowel tones present not distended tolerating a diet states had one bowel movement this morning incontinent of urine Extremities trace pedal edema bilaterally - Labs CBC & Chem 7: 08/11/17 08:42 08/09/17 07:20 Labs: Abnormal Lab Results - Last 24 Hours (Table) 08/10/17 08/10/17 08/10/17 Range/Units 11:47 16:44 21:31 RBC (3.80-5.40) m/uL Hgb (11.4-16.0) gm/dL Hct (34.0-46.0) % MCHC (31.0-37.0) g/dL RDW (11.5-15.5) % Plt Count (150-450) k/uL POC Glucose (mg/dL) 107 H 119 H 133 H (75-99) mg/dL 08/11/17 Range/Units 08:42 RBC 2.47 L (3.80-5.40) m/uL Hgb 7.4 L (11.4-16.0) gm/dL Hct 24.0 L (34.0-46.0) % MCHC 30.8 L (31.0-37.0) g/dL RDW 17.4 H (11.5-15.5) % Plt Count 148 L (150-450) k/uL POC Glucose (mg/dL) (75-99) mg/dL Assessment and Plan Assessment: Impression Present on admission acute blood loss anemia suspect due to GI bleed status post 4 units packed red blood cells History of bariatric weight loss surgery gastric bypass Status post EGD August 01 no acute findings no evidence of an upper GI bleed Computed tomography scan abdomen pelvis evidence of a hiatal hernia Obstructive sleep apnea not utilizing CPAP in the outpatient setting History of a DVT on anticoagulation with an IVC filter in place Previous loreta en y gastric bypass surgery 3 attempts at a colonoscopy each aborted for incomplete bowel prep Abdominal x-ray suggest ileus Debilitated chronic Plan Regular diet if patient tolerates okay to proceed with a discharge to ECF facility from surgical service within the next 24 hours defer to the timing of the discharge to the attending PT OT eval attempt to increase activity No further attempt at a colonoscopy at this time Continue bowel stimulant DVT and GI prophylaxis Progress note dictated for Dr. bowen The above impression and plan of care have been discussed and directed by signing physician. Judith Dotson nurse practitioner acting as scribe for signing physician.
[2017-08-11 12:02] LABS: Glucose,Whole Blood 104 mg/dL (75-99)
--- NOTE | 2017-08-18 16:29 | P.PN ---
Subjective Progress Note Date: 08/10/17 Principal diagnosis: Continuing care This is a continuing progress note on an A 66-year-old white female essentially admitted for GI bleed. She has had multiple issues as far as chronic abdominal pain. We have tried to multiple colonoscopies but preparation has been failing each time. She still complains of abdominal pain. She hasn't underlying history of dependence. Otherwise, she has an underlying history of chronic DVT in left lower extremity with [place] filter. Objective - Vital Signs Vital signs: Vital Signs Temp 97.6 F 08/11/17 07:00 Pulse 69 08/11/17 07:00 Resp 16 08/11/17 07:00 BP 121/61 08/11/17 07:00 Pulse Ox 96 08/11/17 07:00 - Constitutional General appearance: Present: obese - EENT Eyes: Absent: abnormal pupil - Neck Neck: Present: lymphadenopathy - Respiratory Respiratory: bilateral: CTA, negative: wheezing - Cardiovascular Rhythm: regular Heart sounds: normal: S1, S2 - Gastrointestinal General gastrointestinal: Present: soft. Absent: tenderness - Psychiatric Psychiatric: Present: A&O x's 3 - Labs CBC & Chem 7: 08/11/17 08:42 08/09/17 07:20 Assessment and Plan (1) Anemia Status: Acute Code(s): D64.9 - ANEMIA, UNSPECIFIED SNOMED Code(s): 151145280 (2) GI bleed Status: Acute Code(s): K92.2 - GASTROINTESTINAL HEMORRHAGE, UNSPECIFIED SNOMED Code(s): 61095521 (3) Cellulitis of leg Status: Acute Code(s): L03.119 - CELLULITIS OF UNSPECIFIED PART OF LIMB SNOMED Code(s): 535762365 Plan: We'll continue follow from a surgical perspective. I'll prep has been delayed secondary to ileus element. Question need for Reglan versus repeat computed tomography scan of abdomen. Continue to follow with surgery otherwise. Check CBC and CMP in a.m.
== END 2017-08-11 17:18 | DRG 378 ==
LOC: EC 18:53 → 6ICU 20:56 → EEVIPCON 20:56 → 6ICU 23:02 → 4MS4W 07-31 11:38
PROVIDERS: ADMIT Family Medicine; ATTEND Family Medicine
PROC: 30233N1 Transfusion of Nonautologous Red Blood Cells into Peripheral Vein, Percutaneous Approach (ICD-10-PCS; 2017-07-29)
PROC: 0DJD8ZZ Inspection of Lower Intestinal Tract, Via Natural or Artificial Opening Endoscopic (ICD-10-PCS; principal; 2017-08-01 09:25)
PROC: 0DJ08ZZ Inspection of Upper Intestinal Tract, Via Natural or Artificial Opening Endoscopic (ICD-10-PCS; principal; 2017-08-01 09:25)
PROC: 0DJD8ZZ Inspection of Lower Intestinal Tract, Via Natural or Artificial Opening Endoscopic (ICD-10-PCS; 2017-08-03)
PROC: 02HV33Z Insertion of Infusion Device into Superior Vena Cava, Percutaneous Approach (ICD-10-PCS; 2017-08-04 13:23)
PROC: 0DJD8ZZ Inspection of Lower Intestinal Tract, Via Natural or Artificial Opening Endoscopic (ICD-10-PCS; 2017-08-05)
DX: K92.2 Gastrointestinal hemorrhage, unspecified (principal); K56.7 Ileus, unspecified; E11.22 Type 2 diabetes mellitus with diabetic chronic kidney disease; I82.509 Chronic embolism and thrombosis of unspecified deep veins of unspecified lower extremity; N18.3 Chronic kidney disease, stage 3 (moderate); I48.1 Persistent atrial fibrillation; J98.11 Atelectasis; D62 Acute posthemorrhagic anemia; F12.90 Cannabis use, unspecified, uncomplicated; D50.0 Iron deficiency anemia secondary to blood loss (chronic); E78.5 Hyperlipidemia, unspecified; F32.9 Major depressive disorder, single episode, unspecified; F41.9 Anxiety disorder, unspecified; G47.33 Obstructive sleep apnea (adult) (pediatric); I12.9 Hypertensive chronic kidney disease with stage 1 through stage 4 chronic kidney disease, or unspecified chronic kidney disease; I34.0 Nonrheumatic mitral (valve) insufficiency; K44.9 Diaphragmatic hernia without obstruction or gangrene; K52.9 Noninfective gastroenteritis and colitis, unspecified; M19.90 Unspecified osteoarthritis, unspecified site; M21.379 Foot drop, unspecified foot; M79.7 Fibromyalgia; N20.0 Calculus of kidney; Z96.652 Presence of left artificial knee joint; Z96.643 Presence of artificial hip joint, bilateral; Z98.84 Bariatric surgery status; Z79.01 Long term (current) use of anticoagulants; Z79.2 Long term (current) use of antibiotics; Z79.82 Long term (current) use of aspirin; Z79.899 Other long term (current) drug therapy; Z82.49 Family history of ischemic heart disease and other diseases of the circulatory system; Z83.3 Family history of diabetes mellitus; Z86.14 Personal history of Methicillin resistant Staphylococcus aureus infection; Z87.01 Personal history of pneumonia (recurrent); Z87.11 Personal history of peptic ulcer disease; Z87.440 Personal history of urinary (tract) infections; Z87.891 Personal history of nicotine dependence; Z90.49 Acquired absence of other specified parts of digestive tract; Z99.3 Dependence on wheelchair; Z79.1 Long term (current) use of non-steroidal anti-inflammatories (NSAID); Z79.891 Long term (current) use of opiate analgesic; Z88.1 Allergy status to other antibiotic agents; Z88.7 Allergy status to serum and vaccine; Z79.84 Long term (current) use of oral hypoglycemic drugs; Z91.010 Allergy to peanuts; Z91.040 Latex allergy status; Z53.8 Procedure and treatment not carried out for other reasons
CPT/HCPCS: 36415; 36569; 43235; 45378; 71045; 74021; 74177; 76937; 77001; 80048; 80053; 82272; 83036; 83735; 84100; 85025; 85027; 85610; 85730; 86850; 86900; 86901; 86902; 86920; 93970; 96374; 99291

== ENCOUNTER 2017-08-17 16:05 | Emergency (ER) | payer MEDICARE, OTHER ==
[2017-08-17] MEDS ORDERED: ONDANSETRON 4 MG/2 ML VIAL IVP STA (16:33)
[2017-08-17] MEDS ORDERED: HYDROmorphone 0.5 MG/0.5 ML SYRINGE IVP STA (16:33)
[2017-08-17] MEDS ORDERED: RX INFO: IV CONTRAST WAS GIVEN 1 EACH MISC MISCELLANE PRN (16:33)
[2017-08-17] MEDS ORDERED: SODIUM CHLORIDE 0.9% 500 ML IV STA (16:34)
--- NOTE | 2017-08-17 16:36 | ED ---
General Adult HPI - General Chief complaint: Abdominal Pain Stated complaint: ABOMINAL PAIN Time Seen by Provider: 08/17/17 16:08 Source: patient, RN notes reviewed Mode of arrival: EMS Limitations: physical limitation - History of Present Illness Initial comments: 66-year-old female presents to the emergency department with a chief complaint of concern for obstruction. Patient's been complaining of abdominal pain and nausea vomiting for the past 2 days. They didn't x-ray where she lives and they were concerned that she may have an obstruction. She does admit to history of gastric bypass in the past. She was recently admitted to the hospital due to a low hemoglobin. She states that she is having the centralized abdominal pain. She states she has however having diarrhea. She states that she hasn't had any high fevers with this she is aware of. She denies any cough cold like symptoms.Patient denies any recent fever, chills, shortness of breath, chest pain, back pain, numbness or tingling, dysuria or hematuria, constipation, headaches or visual changes, or any other current symptoms. - Related Data Home Medications Medication Instructions Recorded Confirmed Atorvastatin [Lipitor] 40 mg PO HS 08/30/15 08/17/17 Allopurinol [Zyloprim] 100 mg PO BID@0700,1600 05/21/16 08/17/17 Cholecalciferol [Vitamin D3] 1,000 unit PO HS 06/29/16 08/17/17 Ferrous Sulfate [Iron (65 MG 650 mg PO HS 06/29/16 08/17/17 Elemental)] Magnesium Hydroxide [Milk of 2,400 mg PO DAILY PRN 06/29/16 08/17/17 Magnesia] Polyethylene Glycol 3350 [Miralax] 17 gm PO DAILY 06/29/16 08/17/17 Bisacodyl [Dulcolax] 10 mg PO DAILY PRN 01/26/17 08/17/17 L.acidoph,Paracasei, B.lactis 2 cap PO HS 02/20/17 08/17/17 [Probiotic] Multivitamins, Thera [Multivitamin 1 tab PO HS 02/20/17 08/17/17 (formulary)] Melatonin 3 mg PO HS@199903/23/17 08/17/17 Menthol/Zinc Oxide [Calmoseptine 1 applic TOPICAL TID 03/23/17 08/17/17 Ointment] Potassium Chloride ER [K-Dur 20] 20 meq PO HS 03/23/17 08/17/17 Aspirin 81 mg PO HS 04/20/17 08/17/17 Escitalopram [Lexapro] 10 mg PO DAILY@0800 04/20/17 08/17/17 Omeprazole 20 mg PO DAILY 04/20/17 08/17/17 metFORMIN HCL [Glucophage] 500 mg PO BID 05/19/17 08/17/17 Ipratropium-Albuterol Nebulize 3 ml INHALATION RT-Q4H PRN 05/22/17 08/17/17 [Duoneb 0.5 mg-3 mg/3 ml Soln] Mylanta Suspension 200-200-20 30 ml PO Q4H PRN 05/22/17 08/17/17 Sennosides [Senokot] 8.6 mg PO HS 05/22/17 08/17/17 amLODIPine [Norvasc] 5 mg PO DAILY 05/22/17 08/17/17 Acetaminophen Tab [Tylenol] 650 mg PO Q4H PRN 07/29/17 08/17/17 Apixaban [Eliquis] 2.5 mg PO BID 07/29/17 08/17/17 Ibuprofen [Motrin Ib] 400 mg PO Q6H PRN 08/17/17 08/17/17 oxyCODONE HCL [OxyCONTIN] 10 mg PO BID@0700,1900 08/17/17 08/17/17 Previous Rx's Medication Instructions Recorded ALPRAZolam [Xanax] 0.25 mg PO BID PRN #60 tab 08/10/17 Bisacodyl [Dulcolax] 10 mg RECTAL DAILY supp 08/10/17 oxyCODONE-APAP 7.5-325MG [Percocet 1 tab PO Q6HR PRN #120 tab 08/10/17 7.5-325 mg] Allergies Allergy/AdvReac Type Severity Reaction Status Date / Time adhesive tape Allergy Severe Rash/Hives Verified 08/17/17 16:19 cephalexin monohydrate Allergy Severe Rash/Hives Verified 08/17/17 16:19 [From Keflex] influenza virus vaccine, Allergy Severe Anaphylaxis Verified 08/17/17 16:18 specific [influenza virus vacc,specific] latex Allergy Severe Rash/Hives Verified 08/17/17 16:19 peanut Allergy Severe Anaphylaxis Verified 08/17/17 16:19 Penicillins Allergy Severe Swelling Verified 08/17/17 16:19 tetanus toxoid, adsorbed Allergy Intermediate Rash/Hives Verified 08/17/17 16:19 Influenza Virus Vaccines Allergy Anaphylaxis Verified 08/17/17 16:19 Review of Systems ROS Statement: Those systems with pertinent positive or pertinent negative responses have been documented in the HPI. ROS Other: All systems not noted in ROS Statement are negative. Past Medical History Past Medical History: Atrial Fibrillation, Diabetes Mellitus, Deep Vein Thrombosis (DVT), Fibromyalgia, GI Bleed, Hyperlipidemia, Hypertension, Pneumonia, Renal Disease, Skin Disorder Additional Past Medical History / Comment(s): Anemia, DVT left lower leg, dermatitis, gastric ulcer, chronic lower back pain, morbid obesity, severe sepsis w/ septic shock, SVT, DM type 2, hemorrhoids, cellulitis of left lower extremity, dysphagia, chronic kidney disease stage 3, hypernatremia, falls, metabolic encephalopathy, muscle weakness, pneumonia, sleep apnea, bilateral tinnitus, atrial fibrillation, UTI. Left eye contusion/left lower leg laceration - surgically repaired, Right heel pressure ulcer - healed, peripheral neuropathy (bilateral hands and feet), migraines, eczema, sinus problems, lower GI bleed. Last Myocardial Infarction Date:: unknown History of Any Multi-Drug Resistant Organisms: MRSA, VRE Date of last positivie culture/infection: 05/25/17/MRSA; 10/21/2014 VRE MDRO Source:: Blood, left leg, sputum-MRSA; Urine-VRE Past Surgical History: Adenoidectomy, Bariatric Surgery, Cholecystectomy, Joint Replacement, Tonsillectomy, Tubal Ligation Additional Past Surgical History / Comment(s): Gastric bypass, [place]-en-Y in 2003 , [place] filter placement in 2000, teeth extraction, colonoscopy, EGD, hemorrhoidectomy, panniculectomy, D&C, hystoscopy x 2, LT KNEE replaced 2005- MRSA infection-hardware removed and cemented then replaced again, L hip repair with screw and total R hip REPLACEMENT, bilateral heel spurs removed, bilateral carpal tunnel releases, D&Cs, infusaport insertion since removed. Past Anesthesia/Blood Transfusion Reactions: Blood Transfusion Reaction Additional Past Anesthesia/Blood Transfusion Reaction / Comment(s): Patient thinks she possibly had elevated temperatures r/t blood transfusion. Past Psychological History: Anxiety, Depression Smoking Status: Former smoker Past Alcohol Use History: None Reported Past Drug Use History: None Reported - Past Family History Father Family Medical History: Myocardial Infarction (SD) Additional Family Medical History / Comment(s): AT AGE 46-SD Mother Family Medical History: Diabetes Mellitus Additional Family Medical History / Comment(s): AT AGE 66 FROM COMPLICATIONS FROM DM Sister(s) Family Medical History: Diabetes Mellitus Brother(s) Family Medical History: Diabetes Mellitus Daughter(s) Family Medical History: Cancer Son(s) Family Medical History: No Reported History General Exam - General Exam Comments Initial Comments: General: The patient is awake and alert, in no distress, and does not appear acutely ill, pallor. Eye: Pupils are equal, round and reactive to light, extra-ocular movements are intact; there is normal conjunctiva bilaterally. No signs of icterus. Ears, nose, mouth and throat: There are moist mucous membranes. Neck: The neck is supple, there is no tenderness. Cardiovascular: There is a regular rate and rhythm. No murmur, rub or gallop is appreciated. Respiratory: Lungs are clear to auscultation, respirations are non-labored, breath sounds are equal. No wheezes, stridor, rales, or rhonchi. Gastrointestinal: Soft, non-distended, non-tender abdomen without masses or organomegaly noted. There is no rebound or guarding present. No CVA tenderness. Bowel sounds are unremarkable. Back: There is no tenderness to palpation in the midline. There is no obvious deformity. No rashes noted. Musculoskeletal: Normal ROM, no tenderness, There is no pedal edema. There is no calf tenderness or swelling. Sensation intact. Pulses equal bilaterally 2+. Neurological: CN II-XII intact, There are no obvious motor or sensory deficits. Coordination appears grossly intact. Speech is normal. Skin: Skin is warm and dry and no rashes or lesions are noted. Psychiatric: Cooperative, appropriate mood & affect, normal judgment. Limitations: physical limitation Course Vital Signs 08/17/17 08/17/17 16:14 18:57 Temperature 100.8 F H Pulse Rate 77 88 Respiratory 18 20 Rate Blood Pressure 122/59 123/60 O2 Sat by Pulse 99 99 Oximetry Medical Decision Making - Medical Decision Making 66-year-old female presents emergency Department chief complaint of abdominal pain. At this time patient's lab work has been reviewed. Patient's hemoglobin does appear to be stable from previous admission. Patient's CAT scan seems to be improving from previous admission as well by official read. At this time patient's pain has improved with medication. She's had no nausea or vomiting here. She states she is having diarrhea-like stool. There is blood in the urine however she does have a traumatic cath. At this time we will return the patient to the facility where she stays. We did discuss follow-up with her surgeon and return parameters all questions. Patient stated that she understood this time she will be discharged home. - Lab Data Result diagrams: 08/17/17 16:45 08/17/17 16:45 Lab Results 08/17/17 08/17/17 08/17/17 Range/Units 16:45 16:45 16:45 WBC 5.5 (3.8-10.6) k/uL RBC 2.39 L (3.80-5.40) m/uL Hgb 7.1 L (11.4-16.0) gm/dL Hct 23.0 L (34.0-46.0) % MCV 96.1 (80.0-100.0) fL MCH 29.7 (25.0-35.0) pg MCHC 30.9 L (31.0-37.0) g/dL RDW 17.0 H (11.5-15.5) % Plt Count 189 (150-450) k/uL Neutrophils % 54 % Lymphocytes % 35 % Monocytes % 4 % Eosinophils % 4 % Basophils % 0 % Neutrophils # 3.0 (1.3-7.7) k/uL Lymphocytes # 1.9 (1.0-4.8) k/uL Monocytes # 0.2 (0-1.0) k/uL Eosinophils # 0.2 (0-0.7) k/uL Basophils # 0.0 (0-0.2) k/uL Hypochromasia Moderate Anisocytosis Slight Macrocytosis Slight PT (9.0-12.0) sec INR (<1.2) APTT (22.0-30.0) sec Sodium 140 (137-145) mmol/L Potassium 4.9 (3.5-5.1) mmol/L Chloride 110 H (98-107) mmol/L Carbon Dioxide 21 L (22-30) mmol/L Anion Gap 9 mmol/L BUN 25 H (7-17) mg/dL Creatinine 1.00 (0.52-1.04) mg/dL Est GFR (MDRD) Af Amer >60 (>60 ml/min/1.73 sqM) Est GFR (MDRD) Non-Af 55 (>60 ml/min/1.73 sqM) Glucose 78 (74-99) mg/dL Plasma Lactic Acid Maximus (0.7-2.0) mmol/L Calcium 8.2 L (8.4-10.2) mg/dL Total Bilirubin <0.1 L (0.2-1.3) mg/dL AST 73 H (14-36) U/L ALT 62 H (9-52) U/L Alkaline Phosphatase 115 (38-126) U/L Total Protein 5.6 L (6.3-8.2) g/dL Albumin 2.4 L (3.5-5.0) g/dL Amylase <30 L (30-110) U/L Lipase 32 (23-300) U/L Urine Color Urine Appearance (Clear) Urine pH (5.0-8.0) Ur Specific [place] (1.001-1.035) Urine Protein (Negative) Urine Glucose (UA) (Negative) Urine Ketones (Negative) Urine Blood (Negative) Urine Nitrite (Negative) Urine Bilirubin (Negative) Urine Urobilinogen (<2.0) mg/dL Ur Leukocyte Esterase (Negative) Urine RBC (0-5) /hpf Urine WBC (0-5) /hpf Urine Bacteria (None) /hpf Urine Mucus (None) /hpf Urine Yeast (Budding) (None) /hpf Blood Type A Positive Blood Type Recheck No Antibody Screen NEGATIVE Spec Expiration Date 08/20/2017 - 234408/17/17 08/17/17 08/17/17 Range/Units 16:45 16:45 18:45 WBC (3.8-10.6) k/uL RBC (3.80-5.40) m/uL Hgb (11.4-16.0) gm/dL Hct (34.0-46.0) % MCV (80.0-100.0) fL MCH (25.0-35.0) pg MCHC (31.0-37.0) g/dL RDW (11.5-15.5) % Plt Count (150-450) k/uL Neutrophils % % Lymphocytes % % Monocytes % % Eosinophils % % Basophils % % Neutrophils # (1.3-7.7) k/uL Lymphocytes # (1.0-4.8) k/uL Monocytes # (0-1.0) k/uL Eosinophils # (0-0.7) k/uL Basophils # (0-0.2) k/uL Hypochromasia Anisocytosis Macrocytosis PT 10.4 (9.0-12.0) sec INR 1.1 (<1.2) APTT 25.8 (22.0-30.0) sec Sodium (137-145) mmol/L Potassium (3.5-5.1) mmol/L Chloride (98-107) mmol/L Carbon Dioxide (22-30) mmol/L Anion Gap mmol/L BUN (7-17) mg/dL Creatinine (0.52-1.04) mg/dL Est GFR (MDRD) Af Amer (>60 ml/min/1.73 sqM) Est GFR (MDRD) Non-Af (>60 ml/min/1.73 sqM) Glucose (74-99) mg/dL Plasma Lactic Acid Maximus 0.9 (0.7-2.0) mmol/L Calcium (8.4-10.2) mg/dL Total Bilirubin (0.2-1.3) mg/dL AST (14-36) U/L ALT (9-52) U/L Alkaline Phosphatase (38-126) U/L Total Protein (6.3-8.2) g/dL Albumin (3.5-5.0) g/dL Amylase (30-110) U/L Lipase (23-300) U/L Urine Color Yellow Urine Appearance Clear (Clear) Urine pH 5.5 (5.0-8.0) Ur Specific [place] 1.012 (1.001-1.035) Urine Protein Negative (Negative) Urine Glucose (UA) Negative (Negative) Urine Ketones Negative (Negative) Urine Blood Moderate H (Negative) Urine Nitrite Negative (Negative) Urine Bilirubin Negative (Negative) Urine Urobilinogen <2.0 (<2.0) mg/dL Ur Leukocyte Esterase Negative (Negative) Urine RBC >182 H (0-5) /hpf Urine WBC 4 (0-5) /hpf Urine Bacteria Rare H (None) /hpf Urine Mucus Rare H (None) /hpf Urine Yeast (Budding) Rare H (None) /hpf Blood Type Blood Type Recheck Antibody Screen Spec Expiration Date - Radiology Data Radiology results: report reviewed, image reviewed Disposition Clinical Impression: Abdominal pain, Diarrhea Disposition: HOME SELF-CARE Condition: Stable Instructions: Abdominal Pain (ED) Additional Instructions: Please use medication as discussed. Please follow up with family doctor if symptoms have not improved over the next two days. Please return to the emergency room if your symptoms increase or worsen or for any other concerns. Referrals: Carlo Frederick MD [Primary Care Provider] - 1-2 days Time of Disposition: 19:54
[2017-08-17 17:09] LABS: INR 1.1 (<1.2); Partial Thromboplastin Time 25.8 sec (22.0-30.0); Prothrombin Time 10.4 sec (9.0-12.0)
[2017-08-17 17:10] LABS: Anisocytosis Slight; Basophils % (A) 0 %; Eosinophils # (A) 0.2 k/uL (0-0.7); Eosinophils % (A) 4 %; HGB 7.1 gm/dL (11.4-16.0); Hypochromasia Moderate; Lymphocytes # (A) 1.9 k/uL (1.0-4.8); Lymphocytes % (A) 35 %; MCH 29.7 pg (25.0-35.0); MCHC 30.9 g/dL (31.0-37.0); MCV 96.1 fL (80.0-100.0); Macrocytosis Slight; Mean Platelet Volume 7.8; Monocytes # (A) 0.2 k/uL (0-1.0); Monocytes % (A) 4 %; Neutrophils % (A) 54 %; Platelet Count 189 k/uL (150-450); RBC 2.39 m/uL (3.80-5.40); WBC 5.5 k/uL (3.8-10.6)
[2017-08-17 17:20] LABS: ALT 62 U/L (9-52); AST 73 U/L (14-36); Albumin 2.4 g/dL (3.5-5.0); Alkaline Phosphatase 115 U/L (38-126); Amylase <30 U/L (30-110); Anion Gap 9 mmol/L; Blood Urea Nitrogen 25 mg/dL (7-17); Calcium 8.2 mg/dL (8.4-10.2); Carbon Dioxide 21 mmol/L (22-30); Chloride 110 mmol/L (98-107); Glucose 78 mg/dL (74-99); Lipase 32 U/L (23-300); Potassium 4.9 mmol/L (3.5-5.1); Sodium 140 mmol/L (137-145); Total Bilirubin <0.1 mg/dL (0.2-1.3); Total Protein 5.6 g/dL (6.3-8.2)
[2017-08-17 19:00] VITALS: RESP 20
[2017-08-17 19:03] LABS: Appearance,Urine Clear (Clear); Bacteria,Urine Rare /hpf; Bilirubin,Urine Negative (Negative); Blood,Urine Moderate (Negative); Budding Yeast,Urine Rare /hpf; Color,Urine Yellow; Glucose,Urine (UA) Negative (Negative); Ketones,Urine Negative (Negative); Leukocyte Esterase,Urine Negative (Negative); Mucus,Urine Rare /hpf; Nitrite,Urine Negative (Negative); PH, Urine 5.5 (5.0-8.0); Protein,Urine Negative (Negative); RBC,Urine >182 /hpf (0-5); Specific Gravity,Urine 1.012 (1.001-1.035); Urobilinogen,Urine <2.0 mg/dL (<2.0); WBC,Urine 4 /hpf (0-5)
--- NOTE | 2017-08-17 19:13 | CT ---
EXAMINATION TYPE: CT abdomen pelvis w con DATE OF EXAM: 08/17/2017 HISTORY: Generalized abdominal pain. TECHNIQUE: Helical acquisition of images was performed from the lung bases through the pelvis. CT DLP: 1638 mGycm. Automated exposure control for dose reduction was used. CONTRAST: Performed without Oral Contrast and with IV Contrast, patient injected with 80 mL of Vis[place] que 320. COMPARISON: 08/08/2017 CT FINDINGS: The visualized lower chest is negative for acute findings. Coronary calcifications are redemonstrated . There are no abnormal gas or fluid collections throughout the abdomen and pelvis. There is no bowel obstruction, no urinary tract obstruction, and no pancreatic ductal dilation. The p reviously seen biliary tree dilation is stable. No mass or adenopathy; the solid viscera are unremarkable. Bowel viscera are improved when compared the prior study. The rectum and sigmoid are prominently dila jacinda and rise up out of the pelvis as they did on the prior study. This dilation extends down to the a nal sphincter. There is interval improvement, however, in that the previously seen on and transverse colonic wall thickening is resolved. Vasculature: Unremarkable, other than generalized nonaneurysmal atherosclerotic changes throughout th e arterial anatomy. IMPRESSION: INTERVAL IMPROVEMENT, DISCUSSED.
[2017-08-17] MEDS ORDERED: HYDROmorphone 2 MG/ML 1 ML SYRINGE IVP STA (19:45)
[2017-08-17 20:47] VITALS: TEMP 98.3
[2017-08-17 21:44] VITALS: BP 132/58; PULSE 76
== END 2017-08-17 21:30 | disposition home or self-care (01) ==
LOC: EC 16:05
DX: R10.84 Generalized abdominal pain (principal); R19.7 Diarrhea, unspecified; R11.2 Nausea with vomiting, unspecified; I48.91 Unspecified atrial fibrillation; E78.5 Hyperlipidemia, unspecified; M79.7 Fibromyalgia; E11.22 Type 2 diabetes mellitus with diabetic chronic kidney disease; I12.9 Hypertensive chronic kidney disease with stage 1 through stage 4 chronic kidney disease, or unspecified chronic kidney disease; N18.3 Chronic kidney disease, stage 3 (moderate); E66.01 Morbid (severe) obesity due to excess calories; Z68.30 Body mass index [BMI] 30.0-30.9, adult; D64.9 Anemia, unspecified; F32.9 Major depressive disorder, single episode, unspecified; F41.9 Anxiety disorder, unspecified; Z86.14 Personal history of Methicillin resistant Staphylococcus aureus infection; Z86.718 Personal history of other venous thrombosis and embolism; Z87.891 Personal history of nicotine dependence; Z79.01 Long term (current) use of anticoagulants; Z79.82 Long term (current) use of aspirin; Z79.891 Long term (current) use of opiate analgesic; Z79.84 Long term (current) use of oral hypoglycemic drugs; Z79.899 Other long term (current) drug therapy; Z88.1 Allergy status to other antibiotic agents; Z88.7 Allergy status to serum and vaccine; Z91.040 Latex allergy status; Z91.010 Allergy to peanuts; Z88.0 Allergy status to penicillin; Z91.048 Other nonmedicinal substance allergy status; Z90.49 Acquired absence of other specified parts of digestive tract; Z98.84 Bariatric surgery status; Z87.19 Personal history of other diseases of the digestive system
CPT/HCPCS: 99285 ×2; 51702 ×2; 96374 ×2; 96375 ×2; 96376 ×2; 96361 ×2; 36415; 86900; 86901; 80053; 82150; 83605; 83690; 85025; 85610; 85730; 86850; 81001; 87040; 87086; 74177; J1170 ×2; Q9967; J2405

== ENCOUNTER 2017-11-25 11:42 | Inpatient (IN) | payer MEDICARE, OTHER ==
[2017-11-25] MEDS ORDERED: SODIUM CHLORIDE 0.9% 1,000 ML IV ONE (11:49)
--- NOTE | 2017-11-25 12:23 | ED ---
General Adult HPI - General Chief complaint: Altered Mental Status Stated complaint: Abnormal labs Time Seen by Provider: 11/25/17 11:49 Source: patient, EMS, RN notes reviewed, old records reviewed Mode of arrival: ambulatory Limitations: no limitations - History of Present Illness Initial comments: This is a 59-year-old female the ER for evaluation. Patient sent in for ER for evaluation regarding altered mental state. Patient is poor historian re clinical status, history obtained from transfer paperwork and EMS - Related Data Home Medications Medication Instructions Recorded Confirmed Atorvastatin [Lipitor] 40 mg PO HS 08/30/15 11/25/17 Allopurinol [Zyloprim] 100 mg PO BID@0700,1600 05/21/16 11/25/17 Cholecalciferol [Vitamin D3] 1,000 unit PO HS 06/29/16 11/25/17 Ferrous Sulfate [Iron (65 MG 650 mg PO HS 06/29/16 11/25/17 Elemental)] Polyethylene Glycol 3350 [Miralax] 17 gm PO DAILY PRN 06/29/16 11/25/17 Bisacodyl [Dulcolax] 10 mg PO DAILY PRN 01/26/17 11/25/17 Multivitamins, Thera [Multivitamin 1 tab PO HS 02/20/17 11/25/17 (formulary)] Melatonin 3 mg PO HS@199903/23/17 11/25/17 Potassium Chloride ER [K-Dur 20] 20 meq PO HS 03/23/17 11/25/17 Aspirin 81 mg PO HS 04/20/17 11/25/17 Escitalopram [Lexapro] 10 mg PO DAILY@0800 04/20/17 11/25/17 Omeprazole 20 mg PO HS 04/20/17 11/25/17 metFORMIN HCL [Glucophage] 500 mg PO BID 05/19/17 11/25/17 Ipratropium-Albuterol Nebulize 3 ml INHALATION RT-Q4H PRN 05/22/17 11/25/17 [Duoneb 0.5 mg-3 mg/3 ml Soln] Mylanta Suspension 200-200-20 30 ml PO Q4H PRN 05/22/17 11/25/17 Sennosides [Senokot] 8.6 mg PO HS 05/22/17 11/25/17 amLODIPine [Norvasc] 5 mg PO DAILY 10/29/17 05/04/18 Acetaminophen Tab [Tylenol] 650 mg PO Q4H PRN 07/29/17 11/25/17 Bisacodyl [Dulcolax] 10 mg RECTAL DAILY PRN 11/25/17 11/25/17 Ertapenem [INVanz] 1 gm IVPB ONCE 11/25/17 11/25/17 Lidocaine 2% Gel [Xylocaine Jelly 1 applic TOPICAL Q72H 11/25/17 11/25/17 2%] Magnesium Hydroxide [Milk of 2,400 mg PO DAILY PRN 11/25/17 11/25/17 Magnesia] Phenol [Chloraseptic] 2 spray MUCOUS MEM Q6H PRN 11/25/17 11/25/17 Previous Rx's Medication Instructions Recorded ALPRAZolam [Xanax] 0.25 mg PO BID PRN #60 tab 08/10/17 oxyCODONE HCL 20 mg PO Q6HR PRN 30 Days #120 tab 08/26/17 Allergies Allergy/AdvReac Type Severity Reaction Status Date / Time adhesive tape Allergy Severe Rash/Hives Verified 11/25/17 11:56 cephalexin monohydrate Allergy Severe Rash/Hives Verified 11/25/17 11:56 [From Keflex] influenza virus vaccine, Allergy Severe Anaphylaxis Verified 11/25/17 11:56 specific [influenza virus vacc,specific] latex Allergy Severe Rash/Hives Verified 11/25/17 11:56 peanut Allergy Severe Anaphylaxis Verified 11/25/17 11:56 Penicillins Allergy Severe Swelling Verified 11/25/17 11:56 tetanus toxoid, adsorbed Allergy Intermediate Rash/Hives Verified 11/25/17 11:56 Influenza Virus Vaccines Allergy Anaphylaxis Verified 11/25/17 11:56 Review of Systems ROS Statement: Those systems with pertinent positive or pertinent negative responses have been documented in the HPI. ROS Other: All systems not noted in ROS Statement are negative. Past Medical History Past Medical History: Atrial Fibrillation, Diabetes Mellitus, Deep Vein Thrombosis (DVT), Fibromyalgia, GI Bleed, Hyperlipidemia, Hypertension, Pneumonia, Renal Disease, Skin Disorder Additional Past Medical History / Comment(s): Chronic blood loss anemia, hypertension, hyperlipidemia, fibromyalgia, chronic stage III renal failure, morbid obesity, DVT left lower leg with a previous IVC filter in place, dermatitis, gastric ulcer with a previous Clinton-en-Y gastric bypass surgery, chronic lower back pain, morbid obesity, previous history of severe sepsis w/ septic shock including septicemia with MRSA, SVT, DM type 2, hemorrhoids, cellulitis of left lower extremity, dysphagia, falls, muscle weakness, pneumonia , sleep apnea, bilateral tinnitus, atrial fibrillation, UTI. Left eye contusion/ left lower leg laceration - surgically repaired, Right heel pressure ulcer - healed, peripheral neuropathy (bilateral hands and feet), migraines, eczema, sinus problems, lower GI bleed. Last Myocardial Infarction Date:: unknown History of Any Multi-Drug Resistant Organisms: MRSA, VRE Date of last positivie culture/infection: 05/25/17/MRSA; 10/21/2014 VRE MDRO Source:: Blood, left leg, sputum-MRSA; Urine-VRE Past Surgical History: Adenoidectomy, Bariatric Surgery, Cholecystectomy, Joint Replacement, Tonsillectomy, Tubal Ligation Additional Past Surgical History / Comment(s): Gastric bypass, Clinton-en-Y in 2003 , [place] filter placement in 2000, teeth extraction, colonoscopy, EGD, hemorrhoidectomy, panniculectomy, D&C, hystoscopy x 2, LT KNEE replaced 2005- MRSA infection-hardware removed and cemented then replaced again, L hip repair with screw and total R hip REPLACEMENT, bilateral heel spurs removed, bilateral carpal tunnel releases, D&Cs, infusaport insertion since removed. Past Anesthesia/Blood Transfusion Reactions: Blood Transfusion Reaction Additional Past Anesthesia/Blood Transfusion Reaction / Comment(s): Patient thinks she possibly had elevated temperatures r/t blood transfusion. Past Psychological History: Anxiety, Depression Smoking Status: Former smoker Past Alcohol Use History: None Reported Past Drug Use History: None Reported - Past Family History Father Family Medical History: Myocardial Infarction (ID) Additional Family Medical History / Comment(s): AT AGE 46-ID Mother Family Medical History: Diabetes Mellitus Additional Family Medical History / Comment(s): AT AGE 66 FROM COMPLICATIONS FROM DM Sister(s) Family Medical History: Diabetes Mellitus Brother(s) Family Medical History: Diabetes Mellitus Daughter(s) Family Medical History: Cancer Son(s) Family Medical History: No Reported History General Exam Limitations: no limitations General appearance: alert, in no apparent distress Head exam: Present: atraumatic, normocephalic, normal inspection Eye exam: Present: normal appearance, PERRL, EOMI. Absent: scleral icterus, conjunctival injection, periorbital swelling ENT exam: Present: normal exam, mucous membranes moist Neck exam: Present: normal inspection. Absent: tenderness, meningismus, lymphadenopathy Respiratory exam: Present: normal lung sounds bilaterally. Absent: respiratory distress, wheezes, rales, rhonchi, stridor Cardiovascular Exam: Present: regular rate, normal rhythm, normal heart sounds. Absent: systolic murmur, diastolic murmur, rubs, gallop, clicks GI/Abdominal exam: Present: soft, normal bowel sounds. Absent: distended, tenderness, guarding, rebound, rigid Extremities exam: Present: normal inspection, full ROM, normal capillary refill. Absent: tenderness, pedal edema, joint swelling, calf tenderness Back exam: Present: normal inspection Neurological exam: Present: alert, oriented X3, CN II-XII intact Psychiatric exam: Present: normal affect, normal mood Skin exam: Present: warm, dry, intact, normal color. Absent: rash Course Vital Signs 11/25/17 11:44 Temperature 98.9 F Pulse Rate 66 Respiratory 16 Rate Blood Pressure 118/56 O2 Sat by Pulse 98 Oximetry - Reevaluation(s) Reevaluation #1: 11/25/17 13:47 Patient transfused secondary to significantly low hemoglobin. Continues to be poor historian EKG Findings - EKG Comments: EKG Findings:: EKG shows sinus rhythm rate of 67, RI 320, QRS 76, QTc 454 Medical Decision Making - Medical Decision Making 67 female the ER with persistent GI bleed significantly low hemoglobin, anemia, patient be admitted for blood transfusion, not currently on blood thinners - Lab Data Result diagrams: 11/25/17 13:00 11/25/17 13:00 Lab Results 11/25/17 11/25/17 11/25/17 Range/Units 12:17 13:00 13:00 WBC (3.8-10.6) k/uL RBC (3.80-5.40) m/uL Hgb (11.4-16.0) gm/dL Hct (34.0-46.0) % MCV (80.0-100.0) fL MCH (25.0-35.0) pg MCHC (31.0-37.0) g/dL RDW (11.5-15.5) % Plt Count (150-450) k/uL Neutrophils % % Lymphocytes % % Monocytes % % Eosinophils % % Basophils % % Neutrophils # (1.3-7.7) k/uL Lymphocytes # (1.0-4.8) k/uL Monocytes # (0-1.0) k/uL Eosinophils # (0-0.7) k/uL Basophils # (0-0.2) k/uL Hypochromasia Poikilocytosis Anisocytosis Sodium (137-145) mmol/L Potassium (3.5-5.1) mmol/L Chloride (98-107) mmol/L Carbon Dioxide (22-30) mmol/L Anion Gap mmol/L BUN (7-17) mg/dL Creatinine (0.52-1.04) mg/dL Est GFR (CKD-EPI)AfAm (>60 ml/min/1.73 sqM) Est GFR (CKD-EPI)NonAf (>60 ml/min/1.73 sqM) Glucose (74-99) mg/dL POC Glucose (mg/dL) 110 H (75-99) mg/dL POC Glu Parts Manager ID [place], Jes Calcium (8.4-10.2) mg/dL Total Bilirubin (0.2-1.3) mg/dL AST (14-36) U/L ALT (9-52) U/L Alkaline Phosphatase (38-126) U/L Ammonia 10 (<30) umol/L Total Creatine Kinase 25 L (30-135) U/L Total Protein (6.3-8.2) g/dL Albumin (3.5-5.0) g/dL 11/25/17 11/25/17 Range/Units 13:00 13:00 WBC 5.5 (3.8-10.6) k/uL RBC 2.33 L (3.80-5.40) m/uL Hgb 5.7 L* (11.4-16.0) gm/dL Hct 19.9 L* (34.0-46.0) % MCV 85.6 (80.0-100.0) fL MCH 24.4 L (25.0-35.0) pg MCHC 28.5 L (31.0-37.0) g/dL RDW 17.1 H (11.5-15.5) % Plt Count 358 (150-450) k/uL Neutrophils % 64 % Lymphocytes % 24 % Monocytes % 5 % Eosinophils % 5 % Basophils % 0 % Neutrophils # 3.5 (1.3-7.7) k/uL Lymphocytes # 1.3 (1.0-4.8) k/uL Monocytes # 0.3 (0-1.0) k/uL Eosinophils # 0.3 (0-0.7) k/uL Basophils # 0.0 (0-0.2) k/uL Hypochromasia Marked Poikilocytosis Moderate Anisocytosis Slight Sodium 141 (137-145) mmol/L Potassium 4.6 (3.5-5.1) mmol/L Chloride 113 H (98-107) mmol/L Carbon Dioxide 17 L (22-30) mmol/L Anion Gap 11 mmol/L BUN 19 H (7-17) mg/dL Creatinine 0.90 (0.52-1.04) mg/dL Est GFR (CKD-EPI)AfAm 76 (>60 ml/min/1.73 sqM) Est GFR (CKD-EPI)NonAf 66 (>60 ml/min/1.73 sqM) Glucose 92 (74-99) mg/dL POC Glucose (mg/dL) (75-99) mg/dL POC Glu Parts Manager ID Calcium 8.4 (8.4-10.2) mg/dL Total Bilirubin 0.2 (0.2-1.3) mg/dL AST 13 L (14-36) U/L ALT 14 (9-52) U/L Alkaline Phosphatase 115 (38-126) U/L Ammonia (<30) umol/L Total Creatine Kinase (30-135) U/L Total Protein 6.2 L (6.3-8.2) g/dL Albumin 2.4 L (3.5-5.0) g/dL - Radiology Data Radiology results: report reviewed (X-ray abdomen pelvis with chest is negative) , image reviewed Disposition Clinical Impression: GIB (gastrointestinal bleeding), Delirium due to general medical condition, Anemia Disposition: ADMITTED IP TO THIS [facility] Condition: Serious Is patient prescribed a controlled substance at d/c from ED?: No Referrals: Darling Belle DO [Primary Care Provider] - 1-2 days
[2017-11-25 12:34] LABS: Glucose,Whole Blood 110 mg/dL (75-99)
[2017-11-25 13:24] LABS: Albumin 2.4 g/dL (3.5-5.0); Calcium 8.4 mg/dL (8.4-10.2); Potassium 4.6 mmol/L (3.5-5.1); Total Bilirubin 0.2 mg/dL (0.2-1.3); Total Protein 6.2 g/dL (6.3-8.2)
[2017-11-25 13:29] LABS: Anisocytosis Slight; Basophils % (A) 0 %; Eosinophils # (A) 0.3 k/uL (0-0.7); Eosinophils % (A) 5 %; Hypochromasia Marked; Lymphocytes # (A) 1.3 k/uL (1.0-4.8); Lymphocytes % (A) 24 %; MCH 24.4 pg (25.0-35.0); MCHC 28.5 g/dL (31.0-37.0); MCV 85.6 fL (80.0-100.0); Mean Platelet Volume 7.4; Monocytes # (A) 0.3 k/uL (0-1.0); Monocytes % (A) 5 %; Neutrophils # (A) 3.5 k/uL (1.3-7.7); Neutrophils % (A) 64 %; Platelet Count 358 k/uL (150-450); Poikilocytosis Moderate; RBC 2.33 m/uL (3.80-5.40); RDW 17.1 % (11.5-15.5); WBC 5.5 k/uL (3.8-10.6)
[2017-11-25 13:32] LABS: HCT 19.9 % (34.0-46.0); HGB 5.7 gm/dL (11.4-16.0)
[2017-11-25 13:39] LABS: Creatine Kinase 25 U/L (30-135)
--- NOTE | 2017-11-25 13:40 | XR ---
EXAMINATION TYPE: XR abdomen acute w cxr DATE OF EXAM: 11/25/2017 COMPARISON: 08/21/2017 HISTORY: Pain TECHNIQUE: Single view of the chest and 2 views of the abdomen are submitted. FINDINGS: Single view of the chest demonstrates a chronic left lower lobe density. Scattered senescent parenchy mal changes noted. There is no evidence for pneumoperitoneum. The bowel gas pattern is unremarkable as there is air throughout nondilated small and large bowel. No sizeable air fluid levels.No mass effects are seen. No unusual calcifications. IMPRESSION: 1. Nonspecific nonobstructive bowel gas pattern. 2. Chronic density left lower lobe.
[2017-11-25 13:52] LABS: Creatine Kinase MB 0.6 ng/mL (0.0-2.4); Troponin I <0.012 ng/mL (0.000-0.034)
[2017-11-25 20:59] LABS: Glucose,Whole Blood 120 mg/dL (75-99)
[2017-11-25 23:56] LABS: Appearance,Urine Clear (Clear); Bacteria,Urine Rare /hpf; Bilirubin,Urine Negative (Negative); Blood,Urine Moderate (Negative); Color,Urine Light Yellow; Glucose,Urine (UA) Negative (Negative); Ketones,Urine Negative (Negative); Leukocyte Esterase,Urine Trace (Negative); Mucus,Urine Rare /hpf; Nitrite,Urine Negative (Negative); Protein,Urine Negative (Negative); RBC,Urine 22 /hpf (0-5); Specific Gravity,Urine 1.007 (1.001-1.035); Squamous Epithelial Cell,Urine <1 /hpf (0-4); Urobilinogen,Urine <2.0 mg/dL (<2.0); WBC,Urine 3 /hpf (0-5)
[2017-11-26 00:06] LABS: Amphetamine Screen,Urine Not Detected (NotDetected); Barbiturate Screen,Urine Not Detected (NotDetected); Benzodiazepines Screen,Urine Not Detected (NotDetected); Cocaine Screen,Urine Not Detected (NotDetected); Methadone Screen, Urine Not Detected (NotDetected); Opiate Screen,Urine Not Detected (NotDetected); Oxycodone Screen, Urine Detected (NotDetected); Phencyclidine Screen,Urine Not Detected (NotDetected); Tricyclic Antidepressant,Urine Not Detected (NotDetected); Urn Cannabinoid Scrn Not Detected (NotDetected)
[2017-11-26 06:19] LABS: Glucose,Whole Blood 114 mg/dL (75-99)
[2017-11-26] MEDS: SODIUM CHLORIDE 0.9% 1,000 ML IV SCH ×2 (06:32→13:00)
[2017-11-26] MEDS: INSULIN ASPART 100 UNIT/ML 1 ML 10 ML VIAL SQ SCH ×4 (06:32→21:26)
[2017-11-26 06:49] LABS: Anisocytosis Slight; Basophils % (A) 0 %; Eosinophils # (A) 0.1 k/uL (0-0.7); Eosinophils % (A) 2 %; HCT 30.7 % (34.0-46.0); Hypochromasia Marked; Lymphocytes # (A) 0.9 k/uL (1.0-4.8); Lymphocytes % (A) 18 %; MCH 24.9 pg (25.0-35.0); MCHC 28.1 g/dL (31.0-37.0); MCV 88.4 fL (80.0-100.0); Mean Platelet Volume 7.3; Monocytes # (A) 0.3 k/uL (0-1.0); Monocytes % (A) 5 %; Neutrophils # (A) 3.9 k/uL (1.3-7.7); Neutrophils % (A) 74 %; Platelet Count 351 k/uL (150-450); Poikilocytosis Moderate; RBC 3.48 m/uL (3.80-5.40); RDW 16.9 % (11.5-15.5); WBC 5.3 k/uL (3.8-10.6)
[2017-11-26 07:02] LABS: HGB 8.7 gm/dL (11.4-16.0)
--- NOTE | 2017-11-26 11:09 | CONS ---
CONSULTATION DATE OF SERVICE: 11/26/17 REQUESTING PHYSICIAN: Dr. Gurrola. REASON FOR CONSULTATION: Recurrent iron deficiency anemia. HISTORY OF PRESENT ILLNESS: The patient is a 67-year-old white female admitted to hospital because of altered mental status and recurrent iron deficiency anemia. The patient was seen in consultation in July of this year when she presented for the same reason. She had a hemoglobin of 4.5 g/dL. She was evaluated by Dr. Goel at that time. She had an upper endoscopy done sometime in April of 2017 and had evidence of previous gastric bypass surgery. She had an attempted colonoscopy by him in April, but was not successful because of poor prep. The colonoscopy was a attempted again in July with no success because of poor prep. According to the nursing staff, she had at least 3 or 4 colonoscopies that were attempted, that could not be completed. For the last 2 months she has been residing in a residential. Apparently, she was noted to have some altered mental status and was sent to the emergency room and was noted to have anemia with a hemoglobin of 5.7 g/dL and hence we are consulted in regards to this issue. According to the nursing staff, the patient has altered mental status and most of the history was obtained from the nursing staff as well from the patient's chart. As per the nursing staff, since yesterday, she did not have any bleeding. In fact she had a bowel movement this morning that was brown in color. She did not have any episodes of nausea or vomiting. However, she does complain of abdominal pain. PAST MEDICAL HISTORY: Significant for hypertension, diabetes mellitus, hyperlipidemia, COPD, anxiety, depression, fibromyalgia, atrial fibrillation, diabetes mellitus, history of DVT in the past, chronic renal insufficiency, sleep apnea. PAST SURGICAL HISTORY: Clinton-en-Y gastric bypass surgery many years ago. Upper endoscopy April of 2017 that was unremarkable. Multiple attempts at colonoscopy in the last 6 months, poor prep and colonoscopy could not be completed. History of cholecystectomy, tubal ligation, tonsillectomy, hysteroscopy, total right hip replacement. MEDICATIONS: At home include Invanz, Dulcolax, Tylenol, Norvasc, Senokot, Glucophage, omeprazole, Lexapro, K-Dur, Lipitor, Zyloprim, iron, MiraLAX, Dulcolax, melatonin. ALLERGIES: To LATEX, PENICILLIN, TETANUS, INFLUENZA, KEFLEX. SOCIAL HISTORY: Former smoker. No alcohol use. FAMILY HISTORY: Father had an UT. Mother had diabetes mellitus. REVIEW OF SYSTEMS: Could not be obtained because of poor mental status. PHYSICAL EXAMINATION: She appears comfortable. Easily arousable, answers to simple questions. VITAL SIGNS: Stable. Blood pressure is 132/86, pulse rate 73, temperature 98.1. HEENT examination unremarkable. Conjunctivae pink. Sclerae anicteric. Oral cavity no lesions. NECK: No JVD or lymph node enlargement. Chest was clear to auscultation. HEART: Regular rate and rhythm. ABDOMEN: Soft. Bowel sounds are positive. There was mild diffuse tenderness throughout the entire abdomen, but there was no rebound or rigidity. Extremities: No pedal edema. Skin no rashes. Neuro: She is somewhat confused, but responds to simple questions appropriately. LABS: Done at the time of admission to the hospital WBC 5.5, hemoglobin 5.7, platelets are 358. LFTs are normal. Basic metabolic panel is within normal limits. After 2 units, hemoglobin is 8.7 g/dL today. IMPRESSION: 1. Recurrent anemia for the last 6 months duration. Patient had multiple hospitalizations for the same requiring blood transfusions. Upper endoscopy by Dr. Goel in April of 2017 was unremarkable other than gastric bypass surgery. Colonoscopy was attempted four different times but because of poor prep and inability to tolerate the prep, the procedure could never be completed by Dr. Goel. Presently, she does not have any evidence of active ongoing bleeding. Most likely we are dealing with anemia of multifactorial etiology. Component of chronic blood loss is highly suspected. 2. History of gastric bypass surgery. 3. Altered mental status, which is presently being investigated. RECOMMENDATIONS: 1. In regard to anemia, I agree with blood transfusion and monitor CBC closely. 2. We will obtain iron studies today to see if we are dealing with iron deficiency anemia. 3. Consider Hematology consultation. 4. Because of altered mental status at this time, I cannot proceed with any endoscopy intervention, especially colonoscopy but will consider this during hospitalization based on her overall clinical condition. 5. For now we will continue to follow the patient closely during her hospital stay. Thank you for this consultation. [email or web address] / BARBARAN: [id number] /
[2017-11-26 11:38] LABS: Glucose,Whole Blood 112 mg/dL (75-99)
[2017-11-26 14:31] LABS: Anisocytosis Slight; HCT 28.3 % (34.0-46.0); HGB 8.7 gm/dL (11.4-16.0); Hypochromasia Marked; MCH 26.2 pg (25.0-35.0); MCHC 30.8 g/dL (31.0-37.0); MCV 85.1 fL (80.0-100.0); Platelet Count 338 k/uL (150-450); Poikilocytosis Marked; RBC 3.32 m/uL (3.80-5.40); RDW 16.7 % (11.5-15.5); WBC 6.1 k/uL (3.8-10.6)
[2017-11-26 14:53] LABS: Hemoglobin A1C 10.1 % (4.0-6.0)
[2017-11-26 16:24] LABS: Glucose,Whole Blood 124 mg/dL (75-99)
--- NOTE | 2017-11-26 17:59 | P.HPIM ---
History of Present Illness H&P Date: 11/25/17 Chief Complaint: Altered mental status 59-year-old female patient transferred to ED from long-term facility for altered mental status; patient is a very poor historian so detailed history is not available Review of Systems ROS unobtainable: due to mental status Past Medical History Past Medical History: Atrial Fibrillation, Diabetes Mellitus, Deep Vein Thrombosis (DVT), Fibromyalgia, GI Bleed, Hyperlipidemia, Hypertension, Pneumonia, Renal Disease, Skin Disorder Additional Past Medical History / Comment(s): Chronic blood loss anemia, hypertension, hyperlipidemia, fibromyalgia, chronic stage III renal failure, morbid obesity, DVT left lower leg with a previous IVC filter in place, dermatitis, gastric ulcer with a previous Clinton-en-Y gastric bypass surgery, chronic lower back pain, morbid obesity, previous history of severe sepsis w/ septic shock including septicemia with MRSA, SVT, DM type 2, hemorrhoids, cellulitis of left lower extremity, dysphagia, falls, muscle weakness, pneumonia , sleep apnea, bilateral tinnitus, atrial fibrillation, UTI. Left eye contusion/ left lower leg laceration - surgically repaired, Right heel pressure ulcer - healed, peripheral neuropathy (bilateral hands and feet), migraines, eczema, sinus problems, lower GI bleed. Last Myocardial Infarction Date:: unknown History of Any Multi-Drug Resistant Organisms: MRSA, VRE Date of last positivie culture/infection: 05/25/17/MRSA; 10/21/2014 VRE MDRO Source:: Blood, left leg, sputum-MRSA; Urine-VRE Past Surgical History: Adenoidectomy, Bariatric Surgery, Cholecystectomy, Joint Replacement, Tonsillectomy, Tubal Ligation Additional Past Surgical History / Comment(s): Gastric bypass, Clinton-en-Y in 2003 , [place] filter placement in 2000, teeth extraction, colonoscopy, EGD, hemorrhoidectomy, panniculectomy, D&C, hystoscopy x 2, LT KNEE replaced 2005- MRSA infection-hardware removed and cemented then replaced again, L hip repair with screw and total R hip REPLACEMENT, bilateral heel spurs removed, bilateral carpal tunnel releases, D&Cs, infusaport insertion since removed. Past Anesthesia/Blood Transfusion Reactions: Blood Transfusion Reaction Additional Past Anesthesia/Blood Transfusion Reaction / Comment(s): Patient thinks she possibly had elevated temperatures r/t blood transfusion. Smoking Status: Former smoker - Past Family History Father Family Medical History: Myocardial Infarction (ME) Additional Family Medical History / Comment(s): AT AGE 46-ME Mother Family Medical History: Diabetes Mellitus Additional Family Medical History / Comment(s): AT AGE 66 FROM COMPLICATIONS FROM DM Sister(s) Family Medical History: Diabetes Mellitus Brother(s) Family Medical History: Diabetes Mellitus Daughter(s) Family Medical History: Cancer Son(s) Family Medical History: No Reported History Medications and Allergies Home Medications Medication Instructions Recorded Confirmed Type Atorvastatin [Lipitor] 40 mg PO HS 08/30/15 11/25/17 History Allopurinol [Zyloprim] 100 mg PO BID@0700,1600 05/21/16 11/25/17 History Cholecalciferol [Vitamin D3] 1,000 unit PO HS 06/29/16 11/25/17 History Ferrous Sulfate [Iron (65 MG 650 mg PO HS 06/29/16 11/25/17 History Elemental)] Polyethylene Glycol 3350 [Miralax] 17 gm PO DAILY PRN 06/29/16 11/25/17 History Bisacodyl [Dulcolax] 10 mg PO DAILY PRN 01/26/17 11/25/17 History Multivitamins, Thera [Multivitamin 1 tab PO HS 02/20/17 11/25/17 History (formulary)] Melatonin 3 mg PO HS@2000 03/23/17 11/25/17 History Potassium Chloride ER [K-Dur 20] 20 meq PO HS 03/23/17 11/25/17 History Aspirin 81 mg PO HS 04/20/17 11/25/17 History Escitalopram [Lexapro] 10 mg PO DAILY@0800 04/20/17 11/25/17 History Omeprazole 20 mg PO HS 04/20/17 11/25/17 History metFORMIN HCL [Glucophage] 500 mg PO BID 05/19/17 11/25/17 History Ipratropium-Albuterol Nebulize 3 ml INHALATION RT-Q4H PRN 05/22/17 11/25/17 History [Duoneb 0.5 mg-3 mg/3 ml Soln] Mylanta Suspension 200-200-20 30 ml PO Q4H PRN 05/22/17 11/25/17 History Sennosides [Senokot] 8.6 mg PO HS 05/22/17 11/25/17 History amLODIPine [Norvasc] 5 mg PO DAILY 05/22/17 11/25/17 History Acetaminophen Tab [Tylenol] 650 mg PO Q4H PRN 07/29/17 11/25/17 History ALPRAZolam [Xanax] 0.25 mg PO BID PRN #60 tab 08/10/17 11/25/17 Rx oxyCODONE HCL 20 mg PO Q6HR PRN 30 Days #120 tab 08/26/17 11/25/17 Rx Bisacodyl [Dulcolax] 10 mg RECTAL DAILY PRN 11/25/17 11/25/17 History Ertapenem [INVanz] 1 gm IVPB ONCE 11/25/17 11/25/17 History Lidocaine 2% Gel [Xylocaine Jelly 1 applic TOPICAL Q72H 11/25/17 11/25/17 History 2%] Magnesium Hydroxide [Milk of 2,400 mg PO DAILY PRN 11/25/17 11/25/17 History Magnesia] Phenol [Chloraseptic] 2 spray MUCOUS MEM Q6H PRN 11/25/17 11/25/17 History Allergies Allergy/AdvReac Type Severity Reaction Status Date / Time adhesive tape Allergy Severe Rash/Hives Verified 11/25/17 11:56 cephalexin monohydrate Allergy Severe Rash/Hives Verified 11/25/17 11:56 [From Keflex] influenza virus vaccine, Allergy Severe Anaphylaxis Verified 11/25/17 11:56 specific [influenza virus vacc,specific] latex Allergy Severe Rash/Hives Verified 11/25/17 11:56 peanut Allergy Severe Anaphylaxis Verified 11/25/17 11:56 Penicillins Allergy Severe Swelling Verified 11/25/17 11:56 tetanus toxoid, adsorbed Allergy Intermediate Rash/Hives Verified 11/25/17 11:56 Influenza Virus Vaccines Allergy Anaphylaxis Verified 11/25/17 11:56 Physical Exam Vitals: Vital Signs Temp Pulse Resp BP Pulse Ox 11/25/17 16:46 68 16 120/60 99 11/25/17 15:12 98.3 F 69 18 119/58 92 L 11/25/17 13:47 71 16 113/70 98 11/25/17 11:44 98.9 F 66 16 118/56 98 Intake and Output 11/25/17 11/25/17 11/25/17 06:59 14:59 22:59 Other: Weight 90.718 kg Results CBC & Chem 7: 11/26/17 14:08 11/25/17 13:00 Labs: Abnormal Lab Results - Last 24 Hours (Table) 11/25/17 11/25/17 11/25/17 Range/Units 12:17 13:00 13:00 RBC 2.33 L (3.80-5.40) m/uL Hgb 5.7 L* (11.4-16.0) gm/dL Hct 19.9 L* (34.0-46.0) % MCH 24.4 L (25.0-35.0) pg MCHC 28.5 L (31.0-37.0) g/dL RDW 17.1 H (11.5-15.5) % Chloride (98-107) mmol/L Carbon Dioxide (22-30) mmol/L BUN (7-17) mg/dL POC Glucose (mg/dL) 110 H (75-99) mg/dL AST (14-36) U/L Total Creatine Kinase 25 L (30-135) U/L Total Protein (6.3-8.2) g/dL Albumin (3.5-5.0) g/dL 11/25/17 Range/Units 13:00 RBC (3.80-5.40) m/uL Hgb (11.4-16.0) gm/dL Hct (34.0-46.0) % MCH (25.0-35.0) pg MCHC (31.0-37.0) g/dL RDW (11.5-15.5) % Chloride 113 H (98-107) mmol/L Carbon Dioxide 17 L (22-30) mmol/L BUN 19 H (7-17) mg/dL POC Glucose (mg/dL) (75-99) mg/dL AST 13 L (14-36) U/L Total Creatine Kinase (30-135) U/L Total Protein 6.2 L (6.3-8.2) g/dL Albumin 2.4 L (3.5-5.0) g/dL Assessment and Plan Assessment: 1. Acute GI bleed - We will monitor H&H closely and transfuse as needed - Patient started on IV Protonix from ED; we will continue - Consult GI for further recommendations and workup Patient underwent upper endoscopy in April 2017 which was unremarkable; colonoscopy was attempted multiple times but it was unsuccessful; patient was diagnosed with anemia of multifactorial etiology along with chronic blood loss suspicion 2. Acute blood loss anemia; hemoglobin 5.7 on admission - Type crossmatch and transfuse 1 unit of packed RBCs - Monitor H&H closely and transfuse if needed - Consult GI and hematology for further recommendations 3. Mild renal injury - Start patient on IV fluids and monitor strict CRISTO's - Monitor renal function and electrolytes - Avoid nephrotoxins and hypotension 4. Hypertension; fairly controlled 5. Hyperlipidemia; patient is nothing by mouth for further GI evaluation; we will hold off on all medications 6. Diabetes mellitus - We will monitor Accu-Cheks with insulin sliding scale - Resume home medications upon discharge 7. Atrial fibrillation; with controlled ventricular response 8. Fibromyalgia; stable 9. DVT prophylaxis; SCDs only secondary to GI bleed Time with Patient: Greater than 30
[2017-11-26 19:51] LABS: Glucose,Whole Blood 126 mg/dL (75-99)
[2017-11-27] MEDS: SODIUM CHLORIDE 0.9% 1,000 ML IV SCH ×2 (05:03→17:17)
[2017-11-27 07:12] LABS: Glucose,Whole Blood 119 mg/dL (75-99)
[2017-11-27] MEDS: INSULIN ASPART 100 UNIT/ML 1 ML 10 ML VIAL SQ SCH ×4 (07:23→21:15)
[2017-11-27] MEDS ORDERED: amLODIPine 5 MG TAB PO SCH (09:00)
--- NOTE | 2017-11-27 09:03 | PN ---
PROGRESS NOTE DATE OF SERVICE: 11/27/17 Patient is a 67-year-old white female admitted to the hospital with severe symptomatic anemia and hemoglobin of 5.4, as well as altered mental status. The patient was initially in [facility]. Yesterday was transferred to the medical floor and according to the nursing staff since she has been on the 4th floor, she has been very lethargic, confused. Most of the history was obtained from the patient's nursing staff. Since being here she did not have any nausea, vomiting, rectal bleeding. In fact, she had a bowel movement early this morning, which was brown in color. On physical examination, patient appears very lethargic. She is, however, easily arousable and answers to simple questions appropriately. PHYSICAL EXAMINATION: Vital signs is stable. Blood pressure is 161/73, pulse rate 71, temperature 98. HEENT examination unremarkable. Conjunctivae pink. Sclerae anicteric. Oral cavity no lesions. Neck no jugular venous distention or lymph node enlargement. Chest was clear to auscultation. HEART: Regular rate and rhythm. ABDOMEN: Soft. Bowel sounds are positive. No organomegaly. Extremities no pedal edema. Skin no rashes. Neuro: Very lethargic, but opens eyes with verbal stimuli. LABS: WBC 6.1, hemoglobin 8.7, platelets are 338. IMPRESSION: 1. Severe symptomatic anemia with no active gastrointestinal bleed. Upper endoscopy in April of 2017 was unremarkable. Multiple attempts of colonoscopy by Dr. Goel was unsuccessful because of the patient inability to take a colon prep. 2. Altered mental status. RECOMMENDATIONS: At this time she is not a candidate for any endoscopy intervention because of her altered mental status. I agree with blood transfusion. Follow CBC on a daily basis. In the future if she is a candidate for further workup, I will consider proceeding with colonoscopy. Thank you for this consultation. MMODL / IJN: [id number] /
--- NOTE | 2017-11-27 09:22 | P.CONS ---
History of Present Illness - Reason for Consult Consult date: 11/27/17 Acute on chronic anemia - History of Present Illness The patient is a 67-year-old lady, with multiple medical problems. The patient has had a long-standing history of anemia, dating back to at least 2013. Baseline hemoglobin has mostly been in the 8 range, since at least 2014. She has had exacerbations with hemoglobin dropping into the 5-6 range. She had an EGD in 05/10 that was negative. Hemoglobin had dropped into the 5 range and 08/11, at which time a colonoscopy was attempted. However, this could not be completed for technical reasons. Reattempts were made which were also unsuccessful. The [facility], and was brought back to the change in mental status. Hemoglobin was again found to be down into the 5 range. No obvious bleeding was noted by the staff for by the patient. Hemoglobin is improved and stabilized in the 8 range, with transfusion. Consult was therefore placed a further evaluation and recommendations. Review of her records indicate a partial anemia workup in the past. Current it has been in the low normal range. Iron saturations have been low or normal. B12 previously was in the low-normal range at 261. The patient has a history of gastric bypass surgery many years ago. He also has chronic wounds in her left lower extremity for which she has been receiving wound care off and on. Review of Systems Constitutional: Reports poor appetite, Reports weakness Eyes: denies blurred vision, denies pain Ears: deny: decreased hearing, ear discharge, earache, tinnitus Ears, nose, mouth and throat: Denies headache, Denies sore throat Cardiovascular: Reports dyspnea on exertion Respiratory: Reports dyspnea Gastrointestinal: Denies abdominal pain, Denies diarrhea, Denies nausea, Denies vomiting Genitourinary: Reports urge incontinence, Reports urinary frequency Menstruation: Reports postmenopausal Musculoskeletal: Reports gait dysfunction (Patient states she is not able to walk or bear weight on her own), Reports muscle weakness Integumentary: Reports wounds (Chronic, since at least 2013) Neurological: Reports change in mentation, Reports gait dysfunction, Reports weakness Psychiatric: Reports confusion Endocrine: Reports fatigue Hematologic/Lymphatic: Reports as per HPI Past Medical History Past Medical History: Atrial Fibrillation, Diabetes Mellitus, Deep Vein Thrombosis (DVT), Fibromyalgia, GI Bleed, Hyperlipidemia, Hypertension, Pneumonia, Renal Disease, Skin Disorder Additional Past Medical History / Comment(s): Chronic blood loss anemia, hypertension, hyperlipidemia, fibromyalgia, chronic stage III renal failure, morbid obesity, DVT left lower leg with a previous IVC filter in place, dermatitis, gastric ulcer with a previous Clinton-en-Y gastric bypass surgery, chronic lower back pain, morbid obesity, previous history of severe sepsis w/ septic shock including septicemia with MRSA, SVT, DM type 2, hemorrhoids, cellulitis of left lower extremity, dysphagia, falls, muscle weakness, pneumonia , sleep apnea, bilateral tinnitus, atrial fibrillation, UTI. Left eye contusion/ left lower leg laceration - surgically repaired, Right heel pressure ulcer - healed, peripheral neuropathy (bilateral hands and feet), migraines, eczema, sinus problems, lower GI bleed. 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 Source:: Blood, left leg, sputum-MRSA; Urine-VRE Past Surgical History: Adenoidectomy, Bariatric Surgery, Cholecystectomy, Joint Replacement, Tonsillectomy, Tubal Ligation Additional Past Surgical History / Comment(s): Gastric bypass, Clinton-en-Y in 2003 , Lizzy filter placement in 2000, teeth extraction, colonoscopy, EGD, hemorrhoidectomy, panniculectomy, D&C, hystoscopy x 2, LT KNEE replaced 2005- MRSA infection-hardware removed and cemented then replaced again, L hip repair with screw and total R hip REPLACEMENT, bilateral heel spurs removed, bilateral carpal tunnel releases, D&Cs, infusaport insertion since removed. Past Anesthesia/Blood Transfusion Reactions: Blood Transfusion Reaction Additional Past Anesthesia/Blood Transfusion Reaction / Comm: Patient thinks she possibly had elevated temperatures r/t blood transfusion. Smoking Status: Former smoker - Past Family History Father Family Medical History: Myocardial Infarction (DE) Additional Family Medical History / Comment(s): AT AGE 46-DE Mother Family Medical History: Diabetes Mellitus Additional Family Medical History / Comment(s): AT AGE 66 FROM COMPLICATIONS FROM DM Sister(s) Family Medical History: Diabetes Mellitus Brother(s) Family Medical History: Diabetes Mellitus Daughter(s) Family Medical History: Cancer Son(s) Family Medical History: No Reported History Medications and Allergies Home Medications Medication Instructions Recorded Confirmed Type Atorvastatin [Lipitor] 40 mg PO HS 08/30/15 11/25/17 History Allopurinol [Zyloprim] 100 mg PO BID@0700,1600 05/21/16 11/25/17 History Cholecalciferol [Vitamin D3] 1,000 unit PO HS 06/29/16 11/25/17 History Ferrous Sulfate [Iron (65 MG 650 mg PO HS 06/29/16 11/25/17 History Elemental)] Polyethylene Glycol 3350 [Miralax] 17 gm PO DAILY PRN 06/29/16 11/25/17 History Bisacodyl [Dulcolax] 10 mg PO DAILY PRN 01/26/17 11/25/17 History Multivitamins, Thera [Multivitamin 1 tab PO HS 02/20/17 11/25/17 History (formulary)] Melatonin 3 mg PO HS@2000 03/23/17 11/25/17 History Potassium Chloride ER [K-Dur 20] 20 meq PO HS 03/23/17 11/25/17 History Aspirin 81 mg PO HS 04/20/17 11/25/17 History Escitalopram [Lexapro] 10 mg PO DAILY@0800 04/20/17 11/25/17 History Omeprazole 20 mg PO HS 04/20/17 11/25/17 History metFORMIN HCL [Glucophage] 500 mg PO BID 05/19/17 11/25/17 History Ipratropium-Albuterol Nebulize 3 ml INHALATION RT-Q4H PRN 05/22/17 11/25/17 History [Duoneb 0.5 mg-3 mg/3 ml Soln] Mylanta Suspension 200-200-20 30 ml PO Q4H PRN 05/22/17 11/25/17 History Sennosides [Senokot] 8.6 mg PO HS 05/22/17 11/25/17 History amLODIPine [Norvasc] 5 mg PO DAILY 05/22/17 11/25/17 History Acetaminophen Tab [Tylenol] 650 mg PO Q4H PRN 07/29/17 11/25/17 History ALPRAZolam [Xanax] 0.25 mg PO BID PRN #60 tab 08/10/17 11/25/17 Rx oxyCODONE HCL 20 mg PO Q6HR PRN 30 Days #120 tab 08/26/17 11/25/17 Rx Bisacodyl [Dulcolax] 10 mg RECTAL DAILY PRN 11/25/17 11/25/17 History Ertapenem [INVanz] 1 gm IVPB ONCE 11/25/17 11/25/17 History Lidocaine 2% Gel [Xylocaine Jelly 1 applic TOPICAL Q72H 11/25/17 11/25/17 History 2%] Magnesium Hydroxide [Milk of 2,400 mg PO DAILY PRN 11/25/17 11/25/17 History Magnesia] Phenol [Chloraseptic] 2 spray MUCOUS MEM Q6H PRN 11/25/17 11/25/17 History Allergies Allergy/AdvReac Type Severity Reaction Status Date / Time adhesive tape Allergy Severe Rash/Hives Verified 11/25/17 11:56 cephalexin monohydrate Allergy Severe Rash/Hives Verified 11/25/17 11:56 [From Keflex] influenza virus vaccine, Allergy Severe Anaphylaxis Verified 11/25/17 11:56 specific [influenza virus vacc,specific] latex Allergy Severe Rash/Hives Verified 11/25/17 11:56 peanut Allergy Severe Anaphylaxis Verified 11/25/17 11:56 Penicillins Allergy Severe Swelling Verified 11/25/17 11:56 tetanus toxoid, adsorbed Allergy Intermediate Rash/Hives Verified 11/25/17 11:56 Influenza Virus Vaccines Allergy Anaphylaxis Verified 11/25/17 11:56 Physical Exam Vitals: Vital Signs Temp Pulse Resp BP Pulse Ox 11/27/17 05:40 97.0 F L 64 16 163/69 96 11/27/17 00:40 97.6 F 71 16 175/74 96 11/26/17 19:50 98.0 F 71 16 161/73 98 11/26/17 18:16 72 18 140/72 100 11/26/17 16:00 72 16 150/71 100 11/26/17 12:00 97.6 F 69 18 147/72 98 Intake and Output 11/26/17 11/27/17 11/27/17 22:59 06:59 14:59 Intake Total 250 Balance 250 Intake: Oral 250 Other: Voiding Method Diaper Diaper Incontinent Incontinent # Voids 1 1 # Bowel Movements 1 1 Weight 87.5 kg - Constitutional General appearance: no acute distress - EENT Eyes: EOMI, PERRLA ENT: hearing grossly normal, normal oropharynx Ears: right: scarring - Neck Thyroid: bilateral: normal size - Respiratory Respiratory: bilateral: CTA - Cardiovascular Rhythm: regular Heart sounds: normal: S1, S2 - Gastrointestinal General gastrointestinal: normal bowel sounds, soft - Integumentary Left lower extremity below knee bandaged - Neurologic Neurologic: CNII-XII intact - Musculoskeletal Musculoskeletal: generalized weakness, strength equal bilaterally - Psychiatric Very lethargic, slow affect. Able to follow most commands though with difficulty. Oriented times 2 Results CBC & Chem 7: 11/26/17 14:08 11/25/17 13:00 Labs: Abnormal Lab Results - Last 24 Hours (Table) 11/25/17 11/26/17 11/26/17 Range/Units 13:00 11:32 14:08 RBC 3.32 L (3.80-5.40) m/uL Hgb 8.7 L (11.4-16.0) gm/dL Hct 28.3 L (34.0-46.0) % MCHC 30.8 L (31.0-37.0) g/dL RDW 16.7 H (11.5-15.5) % POC Glucose (mg/dL) 112 H (75-99) mg/dL Hemoglobin A1c 10.1 H (4.0-6.0) % 11/26/17 11/26/17 11/27/17 Range/Units 16:23 19:48 07:03 RBC (3.80-5.40) m/uL Hgb (11.4-16.0) gm/dL Hct (34.0-46.0) % MCHC (31.0-37.0) g/dL RDW (11.5-15.5) % POC Glucose (mg/dL) 124 H 126 H 119 H (75-99) mg/dL Hemoglobin A1c (4.0-6.0) % Microbiology - Last 24 Hours (Table) 11/25/17 23:30 Urine Culture - Preliminary Urine,Catheterized Comments: Bone scan and MRI from -06/10 reviewed OP report of EGD and colonoscopy is reviewed CT scan - abdomen: report reviewed CT scan - pelvis: report reviewed Venous US: report reviewed (Positive DVT in left lower extremity in 08/11) Assessment and Plan (1) Anemia Narrative/Plan: The patient has had a chronic anemia now for some years, with acute drops. She has issues with chronic wound involving the left lower extremity requiring ongoing treatment. In addition she has a history of gastric bypass surgery. Therefore at this time, a multifactorial anemia, due to underlying marrow suppression from chronic inflammation, decreased absorption from gastric bypass , as well as intermittent GI blood losses is suspected. - She has had a partial anemia workup in the past, that has been nonspecific. Ferritin levels have been in the low normal range, but could have been affected by blood transfusion. - A full anemia workup will be repeated. If this does indicate nutritional deficiency, the patient will need to be placed on regular monitoring and parenteral supplementation periodically. - Recent EGD was negative as noted. Agree with the attempted colonoscopy whenever patient is felt to be stable. GI is following. Current Visit: Yes Status: Acute Code(s): D64.9 - ANEMIA, UNSPECIFIED SNOMED Code(s): 242597375 Plan: The patient has multiple other medical problems. Defer to the admitting service and other consultants for management of the same
[2017-11-27 09:36] LABS: Anisocytosis Slight; Basophils % (A) 0 %; Eosinophils # (A) 0.2 k/uL (0-0.7); Eosinophils % (A) 3 %; HGB 8.2 gm/dL (11.4-16.0); Hypochromasia Marked; Lymphocytes # (A) 1.2 k/uL (1.0-4.8); Lymphocytes % (A) 21 %; MCH 25.2 pg (25.0-35.0); MCHC 29.4 g/dL (31.0-37.0); MCV 85.9 fL (80.0-100.0); Mean Platelet Volume 7.4; Monocytes # (A) 0.3 k/uL (0-1.0); Monocytes % (A) 5 %; Neutrophils # (A) 3.7 k/uL (1.3-7.7); Neutrophils % (A) 69 %; Platelet Count 357 k/uL (150-450); Poikilocytosis Moderate; RBC 3.26 m/uL (3.80-5.40); RDW 17.3 % (11.5-15.5); WBC 5.4 k/uL (3.8-10.6)
[2017-11-27 09:44] LABS: Anion Gap 12 mmol/L; Blood Urea Nitrogen 15 mg/dL (7-17); Calcium 8.4 mg/dL (8.4-10.2); Carbon Dioxide 20 mmol/L (22-30); Chloride 115 mmol/L (98-107); Glucose 113 mg/dL (74-99); Magnesium 1.8 mg/dL (1.6-2.3); Potassium 3.8 mmol/L (3.5-5.1); Sodium 147 mmol/L (137-145)
[2017-11-27 12:32] LABS: Glucose,Whole Blood 122 mg/dL (75-99)
--- NOTE | 2017-11-27 13:25 | CONS ---
CONSULTATION Mrs. Lang is a 67-year-old female, who is seen for cardiac evaluation. We are requested to see this patient because of cardiac arrhythmia. Patient is currently is lethargic and hardly arousable. History mostly obtained from the nurse as well as the patient's chart. The patient has been admitted. The patient has a history of multiple medical problems, is primarily admitted with anemia, exact etiology of anemia, unclear. The patient had a previous gastric bypass surgery. Multiple attempts at colonoscopy were done in the past which were unsuccessful because of the poor prep. The patient also has a chronic wounds in her lower extremities. There is no definite prior history of myocardial infarction. PAST MEDICAL HISTORY: Includes a history of gastric bypass surgery. History of IVC filter. History of dementia, history of multiple infections, cholecystectomy, joint replacement and tonsillectomy. HOME MEDICATIONS: Included Lipitor 40 mg daily. Vitamin D3, ferrous sulfate, MiraLAX, potassium chloride, Lexapro, Glucophage, Mylanta, amlodipine 5 mg daily and Chloraseptic. PHYSICAL EXAMINATION: At present reveals a 67-year-old female, who is lethargic and minimally responsive. The patient's blood pressure is 163/69 mmHg. Patient is afebrile. HEENT examination is negative. NECK: Supple. There is no increase in jugular venous pressure. Both the carotid pulses are felt. There is no bruit. Chest is symmetrical. Heart the PMI is not felt. First and second heart sounds are normal. There is a grade 2/6 ejection systolic murmur noted. Lungs are clear to auscultation and percussion. Abdomen is negative. Extremities: Peripheral pulses are not felt. The patient's hemoglobin is 5.7, now the hemoglobin is 8.2, electrolytes are normal. Patient's monitor strips reviewed. The patient had an episode of wide QRS complex tachycardia. However on close inspection, it appears to be artifact. FINAL IMPRESSION: This patient is primarily admitted with anemia of unknown etiology. The patient cardiac-kimble is stable. There is no evidence of heart failure. She has a ejection systolic murmur. Mild aortic stenosis. The monitor strip shows wide QRS complex tachycardia, which appears to be an artifact. We recommend to continue to monitor the patient. Echo and Doppler study will be done. MMODL / IJN: [id number] /
[2017-11-27 17:23] LABS: Glucose,Whole Blood 112 mg/dL (75-99)
--- NOTE | 2017-11-27 19:29 | P.PN ---
Subjective Progress Note Date: 11/26/17 Principal diagnosis: Acute GI bleed with acute blood loss anemia Mild renal injury 67-year-old female patient admitted with severe anemia; patient was admitted in July of this year with a hemoglobin of 4.5; patient had upper endoscopy which was unremarkable; colonoscopy was also attempted on multiple occasions but it was unsuccessful because of poor preparation; patient was brought to the hospital from [facility] with altered mental status; routine workup was done which showed a hemoglobin of 5.7; patient was transfused with packed RBCs and is admitted for GI and hematology evaluation Objective - Vital Signs Vital signs: Vital Signs Temp 97.6 F 11/26/17 12:00 Pulse 69 11/26/17 12:00 Resp 18 11/26/17 12:00 BP 147/72 11/26/17 12:00 Pulse Ox 98 11/26/17 12:00 Intake & Output 11/25/17 11/26/17 11/26/17 18:59 06:59 18:59 Intake Total 200 620 50 Balance 200 620 50 Weight 90.718 kg 87.5 kg Intake: Intake, IV Titration 200 Amount Sodium Chloride 0.9% 1, 200 000 ml @ 100 mls/hr IV . Q10H ONE Rx#:[id number] Oral 50 Blood Product 620 Rc As-1 Unit 310 [id number] Rc As-1 Unit 310 [id number] Other: Voiding Method Diaper Diaper Incontinent Incontinent # Voids 2 5 2 # Bowel Movements 2 1 - Exam - Constitutional General appearance: Present: average body habitus, cooperative, no acute distress - EENT Eyes: Present: anicteric sclerae, EOMI, PERRLA, normal appearance ENT: Present: hearing grossly normal, normal oropharynx Ears: bilateral: normal - Neck Neck: Present: normal ROM. Absent: lymphadenopathy, rigidity, thyromegaly Carotids: negative: bruit present Thyroid: bilateral: normal size, negative: enlarged, nodule - Respiratory Respiratory: bilateral: CTA, negative: rales, rhonchi, wheezing - Cardiovascular Rhythm: regular Heart sounds: normal: S1, S2 Abnormal Heart Sounds: Absent: systolic murmur, diastolic murmur - Gastrointestinal General gastrointestinal: Present: normal bowel sounds, soft. Absent: distended , organomegaly, tenderness - Genitourinary Genitourinary Comment(s): deferred - Integumentary Integumentary: Present: normal turgor. Absent: jaundiced, rash, ulcer - Neurologic Neurologic: Present: CNII-XII intact. Absent: focal deficits - Musculoskeletal Musculoskeletal: Present: gait normal, strength equal bilaterally - Psychiatric Psychiatric: Present: A&O x's 3, appropriate affect, intact judgment & insight - Labs CBC & Chem 7: 11/27/17 08:57 11/27/17 08:57 Labs: Abnormal Lab Results - Last 24 Hours (Table) 11/25/17 11/25/17 11/25/17 Range/Units 13:00 13:00 20:52 RBC (3.80-5.40) m/uL Hgb (11.4-16.0) gm/dL Hct (34.0-46.0) % MCH (25.0-35.0) pg MCHC (31.0-37.0) g/dL RDW (11.5-15.5) % Lymphocytes # (1.0-4.8) k/uL POC Glucose (mg/dL) 120 H (75-99) mg/dL Hemoglobin A1c 10.1 H (4.0-6.0) % Urine Blood (Negative) Ur Leukocyte Esterase (Negative) Urine RBC (0-5) /hpf Urine Bacteria (None) /hpf Urine Mucus (None) /hpf Ur Oxycodone Screen (NotDetected) Crossmatch See Detail 11/25/17 11/26/17 11/26/17 Range/Units 23:30 05:58 06:03 RBC 3.48 L (3.80-5.40) m/uL Hgb 8.7 L D (11.4-16.0) gm/dL Hct 30.7 L (34.0-46.0) % MCH 24.9 L (25.0-35.0) pg MCHC 28.1 L (31.0-37.0) g/dL RDW 16.9 H (11.5-15.5) % Lymphocytes # 0.9 L (1.0-4.8) k/uL POC Glucose (mg/dL) 114 H (75-99) mg/dL Hemoglobin A1c (4.0-6.0) % Urine Blood Moderate H (Negative) Ur Leukocyte Esterase Trace H (Negative) Urine RBC 22 H (0-5) /hpf Urine Bacteria Rare H (None) /hpf Urine Mucus Rare H (None) /hpf Ur Oxycodone Screen Detected H (NotDetected) Crossmatch 11/26/17 11/26/17 11/26/17 Range/Units 11:32 14:08 16:23 RBC 3.32 L (3.80-5.40) m/uL Hgb 8.7 L (11.4-16.0) gm/dL Hct 28.3 L (34.0-46.0) % MCH (25.0-35.0) pg MCHC 30.8 L (31.0-37.0) g/dL RDW 16.7 H (11.5-15.5) % Lymphocytes # (1.0-4.8) k/uL POC Glucose (mg/dL) 112 H 124 H (75-99) mg/dL Hemoglobin A1c (4.0-6.0) % Urine Blood (Negative) Ur Leukocyte Esterase (Negative) Urine RBC (0-5) /hpf Urine Bacteria (None) /hpf Urine Mucus (None) /hpf Ur Oxycodone Screen (NotDetected) Crossmatch Microbiology - Last 24 Hours (Table) 11/25/17 23:30 Urine Culture - Preliminary Urine,Catheterized Assessment and Plan Assessment: 1. Acute GI bleed - As above patient has had repeated workup done in the past for source of anemia and has had a total of 4 unsuccessful attempts at colonoscopy secondary to poor prep; GI recommendations are noted and appreciated; recommended to transfuse as needed and no further cardiac workup because of previous unsuccessful attempts - We will monitor H&H closely and transfuse as needed - Patient started on IV Protonix from ED; we will continue - Consult GI for further recommendations and workup Patient underwent upper endoscopy in April 2017 which was unremarkable; colonoscopy was attempted multiple times but it was unsuccessful; patient was diagnosed with anemia of multifactorial etiology along with chronic blood loss suspicion 2. Acute blood loss anemia; hemoglobin 5.7 on admission - We will consult hematology for further recommendations - Type crossmatch and transfuse 1 unit of packed RBCs - Monitor H&H closely and transfuse if needed - Consult GI and hematology for further recommendations 3. Mild renal injury - Start patient on IV fluids and monitor strict CRISTO's - Monitor renal function and electrolytes - Avoid nephrotoxins and hypotension 4. Hypertension; fairly controlled 5. Hyperlipidemia; patient is nothing by mouth for further GI evaluation; we will hold off on all medications 6. Diabetes mellitus - We will monitor Accu-Cheks with insulin sliding scale - Resume home medications upon discharge 7. Atrial fibrillation; with controlled ventricular response 8. Fibromyalgia; stable 9. DVT prophylaxis; SCDs only secondary to GI bleed Time with Patient: Greater than 30
--- NOTE | 2017-11-27 19:33 | P.PN ---
Subjective Progress Note Date: 11/27/17 Principal diagnosis: Acute GI bleed with acute blood loss anemia Mild renal injury 67-year-old female patient admitted with severe anemia; patient was admitted in July of this year with a hemoglobin of 4.5; patient had upper endoscopy which was unremarkable; colonoscopy was also attempted on multiple occasions but it was unsuccessful because of poor preparation; patient was brought to the hospital from residential with altered mental status; routine workup was done which showed a hemoglobin of 5.7; patient was transfused with packed RBCs and is admitted for GI and hematology evaluation 11/27/2017; Patient is seen and evaluated in the room at bedside; patient remains confused and refuses to communicate and keeps her eyes closed; nursing staff is concerned about elevated blood pressure; patient is not on any antihypertensive medications at the residential; we will add IV hydralazine 5 mg to be used every 6 hours when necessary; we will add antihypertensive medications pending IV hydralazine requirement Objective - Vital Signs Vital signs: Vital Signs Temp 98.3 F 11/27/17 15:00 Pulse 71 11/27/17 18:42 Resp 20 11/27/17 16:00 BP 151/69 11/27/17 18:42 Pulse Ox 98 11/27/17 15:00 Intake & Output 11/27/17 11/27/17 11/28/17 06:59 18:59 06:59 Intake Total 250 Balance 250 Weight 87.5 kg Intake: Oral 250 Other: Voiding Method Diaper Incontinent Incontinent # Voids 1 1 # Bowel Movements 1 1 - Exam - Constitutional General appearance: Present: average body habitus, cooperative, no acute distress - EENT Eyes: Present: anicteric sclerae, EOMI, PERRLA, normal appearance ENT: Present: hearing grossly normal, normal oropharynx Ears: bilateral: normal - Neck Neck: Present: normal ROM. Absent: lymphadenopathy, rigidity, thyromegaly Carotids: negative: bruit present Thyroid: bilateral: normal size, negative: enlarged, nodule - Respiratory Respiratory: bilateral: CTA, negative: rales, rhonchi, wheezing - Cardiovascular Rhythm: regular Heart sounds: normal: S1, S2 Abnormal Heart Sounds: Absent: systolic murmur, diastolic murmur - Gastrointestinal General gastrointestinal: Present: normal bowel sounds, soft. Absent: distended , organomegaly, tenderness - Genitourinary Genitourinary Comment(s): deferred - Integumentary Integumentary: Present: normal turgor. Absent: jaundiced, rash, ulcer - Neurologic Neurologic: Present: CNII-XII intact. Absent: focal deficits - Musculoskeletal Musculoskeletal: Present: gait normal, strength equal bilaterally - Psychiatric Psychiatric: Present: A&O x's 3, appropriate affect, intact judgment & insight - Labs CBC & Chem 7: 11/27/17 08:57 11/27/17 08:57 Labs: Abnormal Lab Results - Last 24 Hours (Table) 11/26/17 11/27/17 11/27/17 Range/Units 19:48 07:03 08:57 RBC 3.26 L (3.80-5.40) m/uL Hgb 8.2 L (11.4-16.0) gm/dL Hct 28.0 L (34.0-46.0) % MCHC 29.4 L (31.0-37.0) g/dL RDW 17.3 H (11.5-15.5) % Sodium (137-145) mmol/L Chloride (98-107) mmol/L Carbon Dioxide (22-30) mmol/L Glucose (74-99) mg/dL POC Glucose (mg/dL) 126 H 119 H (75-99) mg/dL 11/27/17 11/27/17 11/27/17 Range/Units 08:57 11:55 17:19 RBC (3.80-5.40) m/uL Hgb (11.4-16.0) gm/dL Hct (34.0-46.0) % MCHC (31.0-37.0) g/dL RDW (11.5-15.5) % Sodium 147 H (137-145) mmol/L Chloride 115 H (98-107) mmol/L Carbon Dioxide 20 L (22-30) mmol/L Glucose 113 H (74-99) mg/dL POC Glucose (mg/dL) 122 H 112 H (75-99) mg/dL Microbiology - Last 24 Hours (Table) 11/25/17 23:30 Urine Culture - Final Urine,Catheterized Assessment and Plan Assessment: 1. Acute GI bleed - As above patient has had repeated workup done in the past for source of anemia and has had a total of 4 unsuccessful attempts at colonoscopy secondary to poor prep; GI recommendations are noted and appreciated; recommended to transfuse as needed and no further cardiac workup because of previous unsuccessful attempts - We will monitor H&H closely and transfuse as needed - Patient started on IV Protonix from ED; we will continue - Consult GI for further recommendations and workup Patient underwent upper endoscopy in April 2017 which was unremarkable; colonoscopy was attempted multiple times but it was unsuccessful; patient was diagnosed with anemia of multifactorial etiology along with chronic blood loss suspicion 2. Acute blood loss anemia; hemoglobin 5.7 on admission - We will consult hematology for further recommendations;a multifactorial anemia , due to underlying marrow suppression from chronic inflammation, decreased absorption from gastric bypass, as well as intermittent GI blood losses is suspected. - She has had a partial anemia workup in the past, that has been nonspecific. Ferritin levels have been in the low normal range, but could have been affected by blood transfusion. - A full anemia workup will be repeated. If this does indicate nutritional deficiency, the patient will need to be placed on regular monitoring and parenteral supplementation periodically - Type crossmatch and transfuse 1 unit of packed RBCs - Monitor H&H closely and transfuse if needed - Consult GI and hematology for further recommendations 3. Uncontrolled hypertension - We will start patient on IV hydralazine 5 mg every 6 hours when necessary - We will start patient on oral antihypertensive agents prior to discharge if patient continues to have high need for IV hydralazine 4. Mild renal injury - Start patient on IV fluids and monitor strict CRISTO's - Monitor renal function and electrolytes - Avoid nephrotoxins and hypotension 5. Hypertension; fairly controlled 6. Hyperlipidemia; patient is nothing by mouth for further GI evaluation; we will hold off on all medications 7. Diabetes mellitus - We will monitor Accu-Cheks with insulin sliding scale - Resume home medications upon discharge 8. Atrial fibrillation; with controlled ventricular response 9. Fibromyalgia; stable 10. DVT prophylaxis; SCDs only secondary to GI bleed Time with Patient: Greater than 30
[2017-11-27 20:47] LABS: Glucose,Whole Blood 110 mg/dL (75-99)
[2017-11-27] MEDS: ALPRAZolam 0.25 MG TAB PO PRN (21:14)
[2017-11-28] MEDS: SODIUM CHLORIDE 0.9% 1,000 ML IV SCH ×2 (03:20→15:54)
[2017-11-28 07:11] LABS: Glucose,Whole Blood 110 mg/dL (75-99)
[2017-11-28] MEDS: INSULIN ASPART 100 UNIT/ML 1 ML 10 ML VIAL SQ SCH ×4 (07:12→22:03)
--- NOTE | 2017-11-28 08:37 | P.PN ---
Subjective Progress Note Date: 11/28/17 Principal diagnosis: Nonsustained V. 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 She received 2 units of packed RBC and the current hemoglobin is 8. She was seen and evaluated by the GI service and the plan is not to proceed with any upper or lower endoscopy in view of the change in mental status she was going through. Her mentation is a slightly better this morning. We get involved in her care because she did have one episode of nonsustained V. tach. She is completely asymptomatic from a cardiovascular standpoint of view. She does not have any coronary artery disease or congestive heart failure or any cardiac arrhythmia and doesn't follow with any veterinary practitioner in the past. She was seen and evaluated by Dr. VC Christianson who recommended medical treatment at this point of time and obtain an echocardiogram. On follow-up with her today, she continues to be asymptomatic. The blood pressure is not well-controlled on the current medical regimen and I am going to increase the dose of Norvasc to 5 mg by mouth twice a day. Beside that an echocardiogram was ordered and will follow-up with that. Objective - Vital Signs Vital signs: Vital Signs Temp 97.4 F L 11/28/17 06:15 Pulse 66 11/28/17 06:15 Resp 16 11/28/17 06:15 BP 176/77 11/28/17 06:15 Pulse Ox 96 11/28/17 08:03 Intake & Output 11/27/17 11/28/17 11/28/17 18:59 06:59 18:59 Other: Voiding Method Incontinent Incontinent # Voids 1 2 # Bowel Movements 1 1 - Constitutional General appearance: Present: no acute distress - Respiratory Respiratory: bilateral: diminished - Cardiovascular Rhythm: regular Heart sounds: normal: S1, S2 - Labs CBC & Chem 7: 11/27/17 08:57 11/27/17 08:57 Labs: Abnormal Lab Results - Last 24 Hours (Table) 11/27/17 11/27/17 11/27/17 Range/Units 08:57 08:57 11:55 RBC 3.26 L (3.80-5.40) m/uL Hgb 8.2 L (11.4-16.0) gm/dL Hct 28.0 L (34.0-46.0) % MCHC 29.4 L (31.0-37.0) g/dL RDW 17.3 H (11.5-15.5) % Sodium 147 H (137-145) mmol/L Chloride 115 H (98-107) mmol/L Carbon Dioxide 20 L (22-30) mmol/L Glucose 113 H (74-99) mg/dL POC Glucose (mg/dL) 122 H (75-99) mg/dL 11/27/17 11/27/17 11/28/17 Range/Units 17:19 20:45 06:59 RBC (3.80-5.40) m/uL Hgb (11.4-16.0) gm/dL Hct (34.0-46.0) % MCHC (31.0-37.0) g/dL RDW (11.5-15.5) % Sodium (137-145) mmol/L Chloride (98-107) mmol/L Carbon Dioxide (22-30) mmol/L Glucose (74-99) mg/dL POC Glucose (mg/dL) 112 H 110 H 110 H (75-99) mg/dL Microbiology - Last 24 Hours (Table) 11/25/17 23:30 Urine Culture - Final Urine,Catheterized Assessment and Plan Assessment: Assessment #1 GI bleed of unknown etiology #2 anemia secondary to the above #3 nonsustained V. tach. The patient was asymptomatic #4 uncontrolled hypertension Plan #1 obtain an echocardiogram to establish LV function #2 increase the dose of Norvasc to 5 mg by mouth twice a day for better blood pressure control #3 follow-up with the patient. Thank you for allowing us but spitting her care
[2017-11-28 08:49] LABS: Anisocytosis Slight; Basophils % (A) 0 %; Eosinophils # (A) 0.3 k/uL (0-0.7); Eosinophils % (A) 4 %; HCT 28.4 % (34.0-46.0); HGB 8.1 gm/dL (11.4-16.0); Hypochromasia Marked; Lymphocytes # (A) 1.3 k/uL (1.0-4.8); Lymphocytes % (A) 20 %; MCH 25.1 pg (25.0-35.0); MCHC 28.7 g/dL (31.0-37.0); MCV 87.5 fL (80.0-100.0); Mean Platelet Volume 7.2; Monocytes # (A) 0.4 k/uL (0-1.0); Monocytes % (A) 6 %; Neutrophils # (A) 4.5 k/uL (1.3-7.7); Neutrophils % (A) 68 %; Platelet Count 344 k/uL (150-450); Poikilocytosis Moderate; RBC 3.24 m/uL (3.80-5.40); RDW 17.2 % (11.5-15.5); WBC 6.6 k/uL (3.8-10.6)
[2017-11-28 09:09] LABS: Reticulocyte % 1.9 % (0.5-2.0)
[2017-11-28] MEDS: ALPRAZolam 0.25 MG TAB PO PRN (09:16)
[2017-11-28] MEDS: amLODIPine 5 MG TAB PO SCH ×2 (09:16→22:02)
[2017-11-28 10:30] LABS: Erythrocyte Sedimentation Rate 55 mm/hr (0-20)
--- NOTE | 2017-11-28 12:06 | ECHOF ---
Referral Reason:pvcs MEASUREMENTS -------- HEIGHT: 162.6 cm WEIGHT: 87.1 kg BP: RVIDd: 4.1 cm (< 3.3) IVSd: 1.1 cm (0.6 - 1.1) LVIDd: 4.1 cm (3.9 - 5.3) LVPWd: 1.4 cm (0.6 - 1.1) IVSs: 1.4 cm LVIDs: 2.6 cm LVPWs: 1.7 cm LAESV Index (A-L): 55.05 ml/m MV EXCURSION: 13.666 mm (> 18.000) MV EF SLOPE: 66 mm/s (70 - 150) EPSS: 0.4 cm MV E Percy: 1.06 m/s MV DecT: 248 ms MV A Percy: 0.90 m/s MV E/A Ratio: 1.17 AR PHT: 437 ms RAP: 5.00 mmHg RVSP: 26.85 mmHg FINDINGS -------- Sinus rhythm. This was a technically adequate study. The left ventricular size is normal. There is borderline concentric left ventricular hypertrophy. Overall left ventricular systolic function is low-normal with, an EF between 50 - 55 %. The right ventricle is moderate to severely enlarged. The left atrial size is normal. LA is severely dilated >40 ml/m2 The right atrial size is normal. There is mild aortic valve sclerosis. There is no evidence of aortic regurgitation. Mild mitral annular calcification present. Mild mitral regurgitation is present. Mild tricuspid regurgitation present. There is no evidence of pulmonary hypertension. The right v entricular systolic pressure, as measured by Doppler, is 26.85mmHg. There is no pulmonic regurgitation present. The aortic root size is normal. There is no pericardial effusion. CONCLUSIONS -------- 1. The left ventricular size is normal. 2. There is borderline concentric left ventricular hypertrophy. 3. Overall left ventricular systolic function is low-normal with, an EF between 50 - 55 %. 4. The right ventricle is moderate to severely enlarged. 5. LA is severely dilated >40 ml/m2 6. The right atrial size is normal. 7. There is mild aortic valve sclerosis. 8. There is no evidence of aortic regurgitation. 9. Mild mitral annular calcification present. 10. Mild mitral regurgitation is present. 11. Mild tricuspid regurgitation present. 12. There is no evidence of pulmonary hypertension. 13. The right ventricular systolic pressure, as measured by Doppler, is 26.85mmHg. 14. There is no pulmonic regurgitation present. 15. The aortic root size is normal. 16. There is no pericardial effusion. BILLBOARD POSTER HELPER: Lyly Currie RDCS
[2017-11-28 12:47] LABS: Glucose,Whole Blood 122 mg/dL (75-99)
[2017-11-28 13:34] VITALS: BMI 33.0
[2017-11-28] MEDS ORDERED: IPRATROPIUM-ALBUTEROL 3 ML NEB INHALATION PRN (14:35)
[2017-11-28] MEDS ORDERED: POLYETHYLENE GLYCOL 3350 17 GM POWD.PACK PO PRN (14:35)
[2017-11-28] MEDS ORDERED: ACETAMINOPHEN TAB 325 MG TAB PO PRN (14:35)
[2017-11-28] MEDS ORDERED: BISACODYL 10 MG SUPP RECTAL PRN (14:35)
[2017-11-28] MEDS ORDERED: BISACODYL 5 MG TABLET.DR PO PRN (14:35)
[2017-11-28] MEDS ORDERED: MAGNESIUM HYDROXIDE 2,400 MG/10 ML CUP PO PRN (14:35)
--- NOTE | 2017-11-28 14:58 | P.PN ---
Subjective The patient is a 67-year-old lady, with multiple medical problems. The patient has had a long-standing history of anemia, dating back to at least 2013. Baseline hemoglobin has mostly been in the 8 range, since at least 2014. She has had exacerbations with hemoglobin dropping into the 5-6 range. She had an EGD in 05/10 that was negative. Hemoglobin had dropped into the 5 range on 08/11, at which time a colonoscopy was attempted. However, this could not be completed for technical reasons. Reattempts were made which were also unsuccessful. The patient is an [facility] resident, and was brought back to the change in mental status. Hemoglobin was again found to be down into the 5 range. No obvious bleeding was noted by the staff for by the patient. Hemoglobin is improved and stabilized in the 8 range, with transfusion. Consult was therefore placed a further evaluation and recommendations. Review of her records indicate a partial anemia workup in the past. Current it has been in the low normal range. Iron saturations have been low or normal. B12 previously was in the low-normal range at 261. The patient has a history of gastric bypass surgery many years ago. He also has chronic wounds in her left lower extremity for which she has been receiving wound care off and on. Objective - Vital Signs Vital signs: Vital Signs Temp 97.4 F L 11/28/17 06:15 Pulse 66 11/28/17 06:15 Resp 16 11/28/17 06:15 BP 176/77 11/28/17 06:15 Pulse Ox 96 11/28/17 08:03 Intake & Output 11/27/17 11/28/17 11/28/17 18:59 06:59 18:59 Weight 87.5 kg Other: Voiding Method Incontinent Incontinent Incontinent # Voids 1 2 # Bowel Movements 1 1 - Exam -Constitutional: No acute distress, AAOx0 Eyes: Anicteric sclerae, moist conjunctiva, no lid-lag PERRLA ENMT: NC/AT Oropharynx clear, no erythema, exudates Neck: Supple, FROM, no masses, or JVD No carotid bruits No thyromegaly Lungs: Clear to auscultation Clear to percussion Normal respiratory effort, no accessory muscle use Cardiovascular: Heart regular in rate and rhythm, No murmurs, gallops, or rubs No peripheral edema Abdominal: Soft Nontender, no guarding, rebound or rigidity Abdomen moving with respiration Normoactive bowel sounds No hepatomegaly, No splenomegaly No palpable mass No abdominal wall hernia noted Skin: Normal temperature, tone, texture, turgor No induration No subcutaneous nodules No rash, lesions No ulcers Extremities: No digital cyanosis No clubbing Pedal pulses intact and symmetrical Radial pulses intact and symmetrical Normal gait and station No calf tenderness -Psychiatric: Alert and confused Appropriate affect Intact judgement Neuro: Muscles Strength 5/5 in all 4 extremities Sensation to light touch grossly present throughout Cranial nerves II-XII grossly intact No focal sensory deficits - Labs CBC & Chem 7: 11/28/17 07:57 11/27/17 08:57 Labs: Abnormal Lab Results - Last 24 Hours (Table) 11/27/17 11/27/17 11/28/17 Range/Units 17:19 20:45 06:59 RBC (3.80-5.40) m/uL Hgb (11.4-16.0) gm/dL Hct (34.0-46.0) % MCHC (31.0-37.0) g/dL RDW (11.5-15.5) % ESR (0-20) mm/hr POC Glucose (mg/dL) 112 H 110 H 110 H (75-99) mg/dL 11/28/17 11/28/17 Range/Units 07:57 12:28 RBC 3.24 L (3.80-5.40) m/uL Hgb 8.1 L (11.4-16.0) gm/dL Hct 28.4 L (34.0-46.0) % MCHC 28.7 L (31.0-37.0) g/dL RDW 17.2 H (11.5-15.5) % ESR 55 H (0-20) mm/hr POC Glucose (mg/dL) 122 H (75-99) mg/dL Microbiology - Last 24 Hours (Table) 11/25/17 23:30 Urine Culture - Final Urine,Catheterized Assessment and Plan Plan: -Anemia, multifactorial hemoglobin went up from 5-8 status post 2 units of blood transfusion, GI consult is appreciated call hematology consult, FOBT is pending -Hypertension, and A. fib, cardiology input is appreciated, increase Norvasc to 5 mg twice a day, echo is pending, History of left DVT status post IVC filter as per documentation, patient is high -risk for for bleed to be on anticoagulation, the risks are more than benefits continue with same treatment and DVT prophylaxis DVT prophylaxis-SCD GI prophylaxis Protonix Prognosis is guarded
--- NOTE | 2017-11-28 15:06 | CDI ---
Last Revision, June 2017 Documentation Clarification Form Date: 11/28/17 1504 From: Daysi Lindsey RN, CCDS Admit Date: 11/25/2017 1:45:00 PM Patient Name: Rain Lang Visit Number: [id number] ATTENTION: The Clinical Documentation Specialists (CDI) and [facility] Coding Staff appreciate your assistance in clarifying documentation. Please respond to the clarification below the line at the bottom and electronically sign. The CDI & [facility] Coding staff will review the response and follow-up if needed. Please note: Queries are made part of the Legal Health Record. If you have any questions, please contact the author of this message via ITS. Dr. Antonette Bradley/ Dr. Capellan Atrial fibrillation is documented in the H&P and progress notes nd requires further specificity. History/Risk Factors: AFib, DM, GIB, HTN, chronic blood loss anemia, CKD stage 3 Clinical Indicators: 5/6 Attending Progress Note: "Atrial fibrillation; with controlled ventricular response." EKG/telemetry: Atrial Fib Treatment: Consults: Cardiology IVF In your professional opinion, can you please clarify the type of atrial fibrillation, if known? Chronic/Permanent Paroxysmal Persistent Other, please specify Unable to determine Please continue to document in your progress notes and discharge summary in order to capture severity of illness and risk of mortality. Include clinical findings that support your diagnosis. chronic MTDD
[2017-11-28] MEDS: ALLOPURINOL 100 MG TAB PO SCH (15:53)
[2017-11-28 17:21] LABS: Iron Saturation 6.51 (12.00-45.00); Protein, Total 6.9 g/dL (6.2-8.2)
[2017-11-28 17:35] LABS: Glucose,Whole Blood 112 mg/dL (75-99)
[2017-11-28 20:48] LABS: Glucose,Whole Blood 155 mg/dL (75-99)
[2017-11-28] MEDS: SENNOSIDES 8.6 MG TAB PO SCH (22:01)
[2017-11-28] MEDS: MULTIVITAMINS, THERA 1 EACH TAB PO SCH (22:01)
[2017-11-28] MEDS: FERROUS SULFATE 325 MG TAB PO SCH (22:02)
[2017-11-28] MEDS: ATORVASTATIN 40 MG TAB PO SCH (22:02)
[2017-11-28] MEDS: metFORMIN 500 MG TAB PO SCH (22:02)
[2017-11-28] MEDS: POTASSIUM CHLORIDE ER 20 MEQ TAB.ER PO SCH (22:02)
[2017-11-28] MEDS: MELATONIN 3 MG TABLET PO SCH (22:02)
[2017-11-28] MEDS: CHOLECALCIFEROL 1,000 UNIT TAB PO SCH (22:02)
[2017-11-28] MEDS: LIDOCAINE 2% GEL 5 ML TUBE TOPICAL SCH (22:03)
[2017-11-29 07:21] LABS: Glucose,Whole Blood 93 mg/dL (75-99)
[2017-11-29] MEDS: INSULIN ASPART 100 UNIT/ML 1 ML 10 ML VIAL SQ SCH ×4 (07:22→22:04)
[2017-11-29 08:29] LABS: Anisocytosis Slight; Basophils % (A) 1 %; Eosinophils # (A) 0.3 k/uL (0-0.7); Eosinophils % (A) 5 %; HCT 28.5 % (34.0-46.0); HGB 8.3 gm/dL (11.4-16.0); Hypochromasia Marked; Lymphocytes # (A) 1.7 k/uL (1.0-4.8); Lymphocytes % (A) 28 %; MCH 25.7 pg (25.0-35.0); MCHC 29.2 g/dL (31.0-37.0); MCV 88.1 fL (80.0-100.0); Mean Platelet Volume 7.1; Monocytes # (A) 0.3 k/uL (0-1.0); Monocytes % (A) 5 %; Neutrophils # (A) 3.4 k/uL (1.3-7.7); Neutrophils % (A) 58 %; Platelet Count 299 k/uL (150-450); Poikilocytosis Moderate; RBC 3.24 m/uL (3.80-5.40); RDW 16.8 % (11.5-15.5); WBC 5.9 k/uL (3.8-10.6)
[2017-11-29] MEDS: SODIUM CHLORIDE 0.9% 1,000 ML IV SCH ×2 (09:14→22:04)
[2017-11-29] MEDS: ALLOPURINOL 100 MG TAB PO SCH ×2 (09:15→17:07)
[2017-11-29] MEDS: metFORMIN 500 MG TAB PO SCH ×2 (09:15→22:02)
[2017-11-29] MEDS: amLODIPine 5 MG TAB PO SCH ×2 (09:15→22:03)
[2017-11-29] MEDS: ESCITALOPRAM 10 MG TAB PO SCH (09:15)
--- NOTE | 2017-11-29 10:42 | P.PN ---
Subjective Progress Note Date: 11/29/17 Principal diagnosis: Symptomatic anemia 67-year-old female admitted with severe symptomatic iron deficiency anemia with altered mental status. Today she is more alert. Physical therapy working with her at bedside. Denies overt bleeding hematemesis hematochezia melena. Hemoglobin 8.3. Objective - Vital Signs Vital signs: Vital Signs Temp 98.6 F 11/29/17 05:30 Pulse 70 11/29/17 05:30 Resp 15 11/29/17 05:30 BP 148/65 11/29/17 06:36 Pulse Ox 98 11/29/17 05:30 Intake & Output 11/28/17 11/29/17 11/29/17 18:59 06:59 18:59 Intake Total 60 Balance 60 Weight 87.5 kg Intake: Oral 60 Other: Voiding Method Incontinent Incontinent # Voids 2 1 - Exam General appearance: The patient is alert, oriented, in no acute distress. HET: Head is normocephalic and atraumatic. Pupils are equal and reactive. Oropharynx is clear without lesions. Neck: Supple without lymphadenopathy. Trachea midline. Heart: S1 S2. Regular rate and rhythm. Lungs: No crackles or wheezes are heard. Abdomen: Soft, nontender, nondistended with bowel sounds. No peritoneal signs. No palpable organomegaly or masses. Extremities: Normal skin color and turgor. No cyanosis, rash, ulceration, clubbing, or edema. Radial and pedal pulses are 2/4 bilaterally. Neurological: No focal deficits. Strength and sensation are grossly intact. - Labs CBC & Chem 7: 11/29/17 07:41 11/27/17 08:57 Labs: Abnormal Lab Results - Last 24 Hours (Table) 11/28/17 11/28/17 11/28/17 Range/Units 07:57 12:28 17:14 RBC (3.80-5.40) m/uL Hgb (11.4-16.0) gm/dL Hct (34.0-46.0) % MCHC (31.0-37.0) g/dL RDW (11.5-15.5) % POC Glucose (mg/dL) 122 H 112 H (75-99) mg/dL Iron 17 L (50-170) ug/dL Iron Saturation 6.51 L (12.00-45.00) Vitamin B12 953.0 H (200.0-944.0) pg/mL 11/28/17 11/29/17 Range/Units 20:45 07:41 RBC 3.24 L (3.80-5.40) m/uL Hgb 8.3 L (11.4-16.0) gm/dL Hct 28.5 L (34.0-46.0) % MCHC 29.2 L (31.0-37.0) g/dL RDW 16.8 H (11.5-15.5) % POC Glucose (mg/dL) 155 H (75-99) mg/dL Iron (50-170) ug/dL Iron Saturation (12.00-45.00) Vitamin B12 (200.0-944.0) pg/mL Assessment and Plan (1) Symptomatic anemia Narrative/Plan: 67-year-old female admitted with symptomatic iron deficiency anemia without overt bleeding status post EGD April 2017 unremarkable. Multiple attempts for colonoscopy unsuccessful secondary to patient's inability to tolerate or take colon prep. Current Visit: Yes Status: Acute Code(s): D64.9 - ANEMIA, UNSPECIFIED SNOMED Code(s): 245233277 (2) Iron deficiency anemia Current Visit: Yes Status: Acute Code(s): D50.9 - IRON DEFICIENCY ANEMIA, UNSPECIFIED SNOMED Code(s): 35963377 Plan: 1. Case was discussed with tobacco drummer Dr. Palumbo. Endoscopic exams EGD colonoscopy are recommended for further evaluation of anemia however patient refuses. 2. Continue supportive measures. We'll follow as needed. Assessment and plan a care discussed with Dr. Worrell
[2017-11-29] MEDS: LISINOPRIL 5 MG TAB PO SCH (11:20)
[2017-11-29 12:12] LABS: Glucose,Whole Blood 110 mg/dL (75-99)
--- NOTE | 2017-11-29 13:09 | P.PN ---
Subjective Progress Note Date: 11/29/17 Mrs. Lang is a pleasant 67-year-old female being seen on the medical floor in follow-up. Blood pressure medications were adjusted yesterday by increasing her amlodipine to 5 mg BID. Blood pressure have continued to be elevated. She is resting comfortably in bed in no acute distress with complaints of generalized aches and pain all over. She denies specific chest pain, shortness of breath, palpitations or dizziness. Telemetry tracings are unremarkable with no further episodes of non-sustained VT. Echocardiogram was reviewed and reveals preserved left ventricular systolic function with ejection fraction 50-55%, moderate to severely enlarged right ventricle, severely dilated left atrium, mild aortic valve sclerosis with no stenosis, mild MR and mild TR. GI is recommending EGD and colonoscopy. Patient is refusing. Objective - Vital Signs Vital signs: Vital Signs Temp 98.6 F 11/29/17 05:30 Pulse 70 11/29/17 05:30 Resp 15 11/29/17 05:30 BP 148/65 11/29/17 06:36 Pulse Ox 98 11/29/17 05:30 Intake & Output 11/28/17 11/29/17 11/29/17 18:59 06:59 18:59 Intake Total 60 Balance 60 Weight 87.5 kg Intake: Oral 60 Other: Voiding Method Incontinent Incontinent Incontinent # Voids 2 1 - Exam Blood pressure 140/65 heart rate 70 afebrile maintaining oxygen saturation on room air GENERAL: Well-appearing, well-nourished and in no acute distress. NECK: Supple without JVD or thyromegaly. LUNGS: Breath sounds clear to auscultation bilaterally. Respiration equal and unlabored. No wheezes, rales or rhonchi. HEART: Regular rate and rhythm without murmurs, rubs or gallops. S1 and S2 heard. EXTREMITIES: Normal range of motion, no edema. No clubbing or cyanosis. Peripheral pulses intact. - Labs CBC & Chem 7: 11/29/17 07:41 11/27/17 08:57 Labs: Abnormal Lab Results - Last 24 Hours (Table) 11/28/17 11/28/17 11/28/17 Range/Units 07:57 17:14 20:45 RBC (3.80-5.40) m/uL Hgb (11.4-16.0) gm/dL Hct (34.0-46.0) % MCHC (31.0-37.0) g/dL RDW (11.5-15.5) % POC Glucose (mg/dL) 112 H 155 H (75-99) mg/dL Iron 17 L (50-170) ug/dL Iron Saturation 6.51 L (12.00-45.00) Vitamin B12 953.0 H (200.0-944.0) pg/mL Free Aguilares LC, Quant 16.60 H (0.33-1.94) mg/dL Free Lambda LC, Quant 6.45 H (0.57-2.63) mg/dL 11/29/17 11/29/17 Range/Units 07:41 12:00 RBC 3.24 L (3.80-5.40) m/uL Hgb 8.3 L (11.4-16.0) gm/dL Hct 28.5 L (34.0-46.0) % MCHC 29.2 L (31.0-37.0) g/dL RDW 16.8 H (11.5-15.5) % POC Glucose (mg/dL) 110 H (75-99) mg/dL Iron (50-170) ug/dL Iron Saturation (12.00-45.00) Vitamin B12 (200.0-944.0) pg/mL Free Aguilares LC, Quant (0.33-1.94) mg/dL Free Lambda LC, Quant (0.57-2.63) mg/dL Assessment and Plan Assessment: ASSESSMENT 1. GI bleed of unknown etiology 2. Anemia 3. Nonsustained ventricular tachycardia, asymptomatic 4. Hypertension, uncontrolled PLAN Add lisinopril 5 mg daily. Continue with amlodipine 5 mg twice a day. We will continue to follow. Nurse Practitioner note has been reviewed, I agree with a documented findings and plan of care. Patient was seen and examined.
[2017-11-29 15:53] LABS: Albumin 2.33 g/dL (3.80-4.90); Gamma Globulin 2.52 g/dL (0.70-1.50)
--- NOTE | 2017-11-29 17:02 | P.PN ---
Subjective Progress Note Date: 11/29/17 The patient is still quite weak, but is overall more alert and responsive. She remains lethargic. She denies any obvious bleeding. She was able to respond appropriately to questions. Objective - Vital Signs Vital signs: Vital Signs Temp 99.5 F 11/29/17 15:00 Pulse 71 11/29/17 15:00 Resp 20 11/29/17 15:00 BP 135/63 11/29/17 15:00 Pulse Ox 96 11/29/17 15:00 Intake & Output 11/28/17 11/29/17 11/29/17 18:59 06:59 18:59 Intake Total 60 Balance 60 Weight 87.5 kg Intake: Oral 60 Other: Voiding Method Incontinent Incontinent Incontinent # Voids 2 1 2 - Constitutional General appearance: Present: no acute distress - EENT Eyes: Present: PERRLA ENT: Present: normal oropharynx - Respiratory Respiratory: bilateral: diminished - Cardiovascular Rhythm: regular Heart sounds: normal: S1, S2 - Gastrointestinal General gastrointestinal: Present: normal bowel sounds, soft - Integumentary Integumentary: Present: normal - Neurologic Neurologic: Present: CNII-XII intact - Musculoskeletal Musculoskeletal: Present: generalized weakness, strength equal bilaterally - Psychiatric Psychiatric: Present: appropriate affect - Labs CBC & Chem 7: 11/29/17 07:41 11/27/17 08:57 Labs: Abnormal Lab Results - Last 24 Hours (Table) 11/28/17 11/28/17 11/28/17 Range/Units 07:57 07:57 07:57 RBC (3.80-5.40) m/uL Hgb (11.4-16.0) gm/dL Hct (34.0-46.0) % MCHC (31.0-37.0) g/dL RDW (11.5-15.5) % POC Glucose (mg/dL) (75-99) mg/dL Iron 17 L (50-170) ug/dL Iron Saturation 6.51 L (12.00-45.00) Erythropoietin 35.91 H (2.00-30.00) mIU/mL Vitamin B12 953.0 H (200.0-944.0) pg/mL RBC Folate 1,072 H (280 - 791) ng/mL Free [place] LC, Quant 16.60 H (0.33-1.94) mg/dL Free [place] LC, Quant 6.45 H (0.57-2.63) mg/dL 11/28/17 11/28/17 11/29/17 Range/Units 17:14 20:45 07:41 RBC 3.24 L (3.80-5.40) m/uL Hgb 8.3 L (11.4-16.0) gm/dL Hct 28.5 L (34.0-46.0) % MCHC 29.2 L (31.0-37.0) g/dL RDW 16.8 H (11.5-15.5) % POC Glucose (mg/dL) 112 H 155 H (75-99) mg/dL Iron (50-170) ug/dL Iron Saturation (12.00-45.00) Erythropoietin (2.00-30.00) mIU/mL Vitamin B12 (200.0-944.0) pg/mL RBC Folate (280 - 791) ng/mL Free [place] LC, Quant (0.33-1.94) mg/dL Free [place] LC, Quant (0.57-2.63) mg/dL 11/29/17 Range/Units 12:00 RBC (3.80-5.40) m/uL Hgb (11.4-16.0) gm/dL Hct (34.0-46.0) % MCHC (31.0-37.0) g/dL RDW (11.5-15.5) % POC Glucose (mg/dL) 110 H (75-99) mg/dL Iron (50-170) ug/dL Iron Saturation (12.00-45.00) Erythropoietin (2.00-30.00) mIU/mL Vitamin B12 (200.0-944.0) pg/mL RBC Folate (280 - 791) ng/mL Free [place] LC, Quant (0.33-1.94) mg/dL Free Lambda LC, Quant (0.57-2.63) mg/dL Assessment and Plan (1) Anemia Narrative/Plan: Anemia workup is in progress. Iron studies have been resulted. Ferritin is in the low-normal range is saturation low. This is highly suggestive of iron deficiency, especially considering that the patient has been transfused previously. This was discussed with the patient, and with the GI service. It was recommended that they should consider proceeding with endoscopy, as the patient is more alert. GI did discuss the procedure with the patient, all subsequently refused. I will order IV iron. Recommended follow-up in the office in about 4-5 weeks for continued monitoring and supplementation Hemoglobin is stable in a safe range. Continue to monitor Current Visit: Yes Status: Acute Code(s): D64.9 - ANEMIA, UNSPECIFIED SNOMED Code(s): 311692016 (2) Delirium due to general medical condition Narrative/Plan: Improved Current Visit: Yes Status: Acute Code(s): F05 - DELIRIUM DUE TO KNOWN PHYSIOLOGICAL CONDITION SNOMED Code(s): 3247242
--- NOTE | 2017-11-29 17:19 | P.PN ---
Subjective The patient is a 67-year-old lady, with multiple medical problems. The patient has had a long-standing history of anemia, dating back to at least 2013. Baseline hemoglobin has mostly been in the 8 range, since at least 2014. She has had exacerbations with hemoglobin dropping into the 5-6 range. She had an EGD in 05/10 that was negative. Hemoglobin had dropped into the 5 range on 08/11, at which time a colonoscopy was attempted. However, this could not be completed for technical reasons. Reattempts were made which were also unsuccessful. The patient is an [facility] resident, and was brought back to the change in mental status. Hemoglobin was again found to be down into the 5 range. No obvious bleeding was noted by the staff for by the patient. Hemoglobin is improved and stabilized in the 8 range, with transfusion. Consult was therefore placed a further evaluation and recommendations. Review of her records indicate a partial anemia workup in the past. Current it has been in the low normal range. Iron saturations have been low or normal. B12 previously was in the low-normal range at 261. The patient has a history of gastric bypass surgery many years ago. He also has chronic wounds in her left lower extremity for which she has been receiving wound care off and on. Objective - Vital Signs Vital signs: Vital Signs Temp 99.5 F 11/29/17 15:00 Pulse 71 11/29/17 15:00 Resp 20 11/29/17 15:00 BP 135/63 11/29/17 15:00 Pulse Ox 96 11/29/17 15:00 Intake & Output 11/28/17 11/29/17 11/29/17 18:59 06:59 18:59 Intake Total 60 Balance 60 Weight 87.5 kg Intake: Oral 60 Other: Voiding Method Incontinent Incontinent Incontinent # Voids 2 1 2 - Exam -Constitutional: No acute distress, AAOx0 Eyes: Anicteric sclerae, moist conjunctiva, no lid-lag PERRLA ENMT: NC/AT Oropharynx clear, no erythema, exudates Neck: Supple, FROM, no masses, or JVD No carotid bruits No thyromegaly Lungs: Clear to auscultation Clear to percussion Normal respiratory effort, no accessory muscle use Cardiovascular: Heart regular in rate and rhythm, No murmurs, gallops, or rubs No peripheral edema Abdominal: Soft Nontender, no guarding, rebound or rigidity Abdomen moving with respiration Normoactive bowel sounds No hepatomegaly, No splenomegaly No palpable mass No abdominal wall hernia noted Skin: Normal temperature, tone, texture, turgor No induration No subcutaneous nodules No rash, lesions No ulcers Extremities: No digital cyanosis No clubbing Pedal pulses intact and symmetrical Radial pulses intact and symmetrical Normal gait and station No calf tenderness -Psychiatric: Alert and confused Appropriate affect Intact judgement Neuro: Muscles Strength 5/5 in all 4 extremities Sensation to light touch grossly present throughout Cranial nerves II-XII grossly intact No focal sensory deficits - Labs CBC & Chem 7: 11/29/17 07:41 11/27/17 08:57 Labs: Abnormal Lab Results - Last 24 Hours (Table) 11/28/17 11/28/17 11/28/17 Range/Units 07:57 07:57 07:57 RBC (3.80-5.40) m/uL Hgb (11.4-16.0) gm/dL Hct (34.0-46.0) % MCHC (31.0-37.0) g/dL RDW (11.5-15.5) % POC Glucose (mg/dL) (75-99) mg/dL Iron 17 L (50-170) ug/dL Iron Saturation 6.51 L (12.00-45.00) Erythropoietin 35.91 H (2.00-30.00) mIU/mL Vitamin B12 953.0 H (200.0-944.0) pg/mL RBC Folate 1,072 H (280 - 791) ng/mL Free [place] LC, Quant 16.60 H (0.33-1.94) mg/dL Free [place]ambda LC, Quant 6.45 H (0.57-2.63) mg/dL 11/28/17 11/28/17 11/29/17 Range/Units 17:14 20:45 07:41 RBC 3.24 L (3.80-5.40) m/uL Hgb 8.3 L (11.4-16.0) gm/dL Hct 28.5 L (34.0-46.0) % MCHC 29.2 L (31.0-37.0) g/dL RDW 16.8 H (11.5-15.5) % POC Glucose (mg/dL) 112 H 155 H (75-99) mg/dL Iron (50-170) ug/dL Iron Saturation (12.00-45.00) Erythropoietin (2.00-30.00) mIU/mL Vitamin B12 (200.0-944.0) pg/mL RBC Folate (280 - 791) ng/mL Free [place] LC, Quant (0.33-1.94) mg/dL Free Lambda LC, Quant (0.57-2.63) mg/dL 11/29/17 Range/Units 12:00 RBC (3.80-5.40) m/uL Hgb (11.4-16.0) gm/dL Hct (34.0-46.0) % MCHC (31.0-37.0) g/dL RDW (11.5-15.5) % POC Glucose (mg/dL) 110 H (75-99) mg/dL Iron (50-170) ug/dL Iron Saturation (12.00-45.00) Erythropoietin (2.00-30.00) mIU/mL Vitamin B12 (200.0-944.0) pg/mL RBC Folate (280 - 791) ng/mL Free [place] LC, Quant (0.33-1.94) mg/dL Free Lambda LC, Quant (0.57-2.63) mg/dL Assessment and Plan Plan: -Anemia, multifactorial hemoglobin went up from 5-8 status post 2 units of blood transfusion, GI consult is appreciated call hematology consult, FOBT is pending -Hypertension, and A. fib, cardiology input is appreciated, increase Norvasc to 5 mg twice a day, echo is pending, History of left DVT status post IVC filter as per documentation, patient is high -risk for for bleed to be on anticoagulation, the risks are more than benefits continue with same treatment and DVT prophylaxis DVT prophylaxis-SCD GI prophylaxis Protonix Prognosis is guarded
[2017-11-29 17:33] LABS: Glucose,Whole Blood 113 mg/dL (75-99)
[2017-11-29 20:38] LABS: Glucose,Whole Blood 109 mg/dL (75-99)
[2017-11-29] MEDS: ATORVASTATIN 40 MG TAB PO SCH (22:02)
[2017-11-29] MEDS: POTASSIUM CHLORIDE ER 20 MEQ TAB.ER PO SCH (22:02)
[2017-11-29] MEDS: CHOLECALCIFEROL 1,000 UNIT TAB PO SCH (22:02)
[2017-11-29] MEDS: MULTIVITAMINS, THERA 1 EACH TAB PO SCH (22:03)
[2017-11-29] MEDS: FERROUS SULFATE 325 MG TAB PO SCH (22:03)
[2017-11-29] MEDS: MELATONIN 3 MG TABLET PO SCH (22:03)
[2017-11-29] MEDS: SENNOSIDES 8.6 MG TAB PO SCH (22:04)
[2017-11-29] MEDS: ALPRAZolam 0.25 MG TAB PO PRN (22:15)
[2017-11-30 07:17] LABS: Glucose,Whole Blood 110 mg/dL (75-99)
[2017-11-30] MEDS: INSULIN ASPART 100 UNIT/ML 1 ML 10 ML VIAL SQ SCH ×4 (07:40→22:42)
[2017-11-30 09:00] LABS: Anisocytosis Slight; Basophils % (A) 0 %; Eosinophils # (A) 0.3 k/uL (0-0.7); Eosinophils % (A) 5 %; HCT 25.9 % (34.0-46.0); HGB 7.5 gm/dL (11.4-16.0); Hypochromasia Marked; Lymphocytes # (A) 1.5 k/uL (1.0-4.8); Lymphocytes % (A) 23 %; MCH 25.4 pg (25.0-35.0); MCHC 29.2 g/dL (31.0-37.0); MCV 87.1 fL (80.0-100.0); Mean Platelet Volume 7.7; Monocytes # (A) 0.4 k/uL (0-1.0); Monocytes % (A) 6 %; Neutrophils % (A) 64 %; Platelet Count 281 k/uL (150-450); Poikilocytosis Slight; RBC 2.97 m/uL (3.80-5.40); RDW 17.2 % (11.5-15.5); WBC 6.3 k/uL (3.8-10.6)
[2017-11-30] MEDS: LISINOPRIL 5 MG TAB PO SCH (09:12)
[2017-11-30] MEDS: ALLOPURINOL 100 MG TAB PO SCH ×2 (09:13→15:47)
[2017-11-30] MEDS: metFORMIN 500 MG TAB PO SCH ×2 (09:13→22:42)
[2017-11-30] MEDS: amLODIPine 5 MG TAB PO SCH ×2 (09:13→20:53)
[2017-11-30] MEDS: ESCITALOPRAM 10 MG TAB PO SCH (09:13)
[2017-11-30] MEDS: SODIUM CHLORIDE 0.9% 1,000 ML IV SCH (09:13)
[2017-11-30 09:19] LABS: Anion Gap 10 mmol/L; Blood Urea Nitrogen 14 mg/dL (7-17); Calcium 8.3 mg/dL (8.4-10.2); Carbon Dioxide 21 mmol/L (22-30); Chloride 114 mmol/L (98-107); Glucose 103 mg/dL (74-99); Potassium 3.9 mmol/L (3.5-5.1); Sodium 145 mmol/L (137-145)
--- NOTE | 2017-11-30 11:14 | P.PN ---
Subjective Progress Note Date: 11/30/17 Mrs. Lang is a pleasant 67-year-old female being seen on the medical floor in follow-up. Blood pressure medications were adjusted yesterday by increasing her amlodipine to 5 mg BID. Blood pressure have continued to be elevated. She is resting comfortably in bed in no acute distress with complaints of generalized aches and pain all over. She denies specific chest pain, shortness of breath, palpitations or dizziness. Telemetry tracings are unremarkable with no further episodes of non-sustained VT. Echocardiogram was reviewed and reveals preserved left ventricular systolic function with ejection fraction 50-55%, moderate to severely enlarged right ventricle, severely dilated left atrium, mild aortic valve sclerosis with no stenosis, mild MR and mild TR. GI is recommending EGD and colonoscopy. Patient is refusing. 11/30/2017 Mrs. Lang is seen and examined this morning resting in bed. She continues to complain of generalized aches and pains. Lisinopril was added yesterday and blood pressures have come down nicely. This morning 138/68 heart rate 64. Hemoglobin today 7.5 down from 8.3 yesterday, platelets 281, sodium 145, potassium 3.9, creatinine 0.66. Telemetry tracings have been unremarkable. Objective - Vital Signs Vital signs: Vital Signs Temp 98.3 F 11/30/17 05:55 Pulse 64 11/30/17 05:55 Resp 18 11/30/17 05:55 BP 138/68 11/30/17 05:55 Pulse Ox 96 11/30/17 05:55 Intake & Output 11/29/17 11/30/17 11/30/17 18:59 06:59 18:59 Other: Voiding Method Incontinent Incontinent Diaper Incontinent # Voids 2 2 - Exam Blood pressure 140/65 heart rate 70 afebrile maintaining oxygen saturation on room air GENERAL: Well-appearing, well-nourished and in no acute distress. NECK: Supple without JVD or thyromegaly. LUNGS: Breath sounds clear to auscultation bilaterally. Respiration equal and unlabored. No wheezes, rales or rhonchi. HEART: Regular rate and rhythm without murmurs, rubs or gallops. S1 and S2 heard. EXTREMITIES: Trace chronic edema with kerlix around left lower leg. No clubbing or cyanosis. Peripheral pulses intact. - Labs CBC & Chem 7: 11/30/17 08:24 11/30/17 08:24 Labs: Abnormal Lab Results - Last 24 Hours (Table) 11/28/17 11/28/17 11/28/17 Range/Units 07:57 07:57 07:57 RBC (3.80-5.40) m/uL Hgb (11.4-16.0) gm/dL Hct (34.0-46.0) % MCHC (31.0-37.0) g/dL RDW (11.5-15.5) % Chloride (98-107) mmol/L Carbon Dioxide (22-30) mmol/L Glucose (74-99) mg/dL POC Glucose (mg/dL) (75-99) mg/dL Calcium (8.4-10.2) mg/dL Erythropoietin 35.91 H (2.00-30.00) mIU/mL Albumin (PEP) 2.33 L (3.80-4.90) g/dL Nyecg-7-Thvkllzrg 0.41 H (0.10-0.40) g/dL Gamma Globulins 2.52 H (0.70-1.50) g/dL RBC Folate 1,072 H (280 - 791) ng/mL Free [place] LC, Quant 16.60 H (0.33-1.94) mg/dL Free [place]ambda LC, Quant 6.45 H (0.57-2.63) mg/dL 11/29/17 11/29/17 11/29/17 Range/Units 12:00 17:16 20:37 RBC (3.80-5.40) m/uL Hgb (11.4-16.0) gm/dL Hct (34.0-46.0) % MCHC (31.0-37.0) g/dL RDW (11.5-15.5) % Chloride (98-107) mmol/L Carbon Dioxide (22-30) mmol/L Glucose (74-99) mg/dL POC Glucose (mg/dL) 110 H 113 H 109 H (75-99) mg/dL Calcium (8.4-10.2) mg/dL Erythropoietin (2.00-30.00) mIU/mL Albumin (PEP) (3.80-4.90) g/dL Xukpj-5-Thlucrzyz (0.10-0.40) g/dL Gamma Globulins (0.70-1.50) g/dL RBC Folate (280 - 791) ng/mL Free [place] LC, Quant (0.33-1.94) mg/dL Free [place] LC, Quant (0.57-2.63) mg/dL 11/30/17 11/30/17 11/30/17 Range/Units 07:12 08:24 08:24 RBC 2.97 L (3.80-5.40) m/uL Hgb 7.5 L (11.4-16.0) gm/dL Hct 25.9 L (34.0-46.0) % MCHC 29.2 L (31.0-37.0) g/dL RDW 17.2 H (11.5-15.5) % Chloride 114 H (98-107) mmol/L Carbon Dioxide 21 L (22-30) mmol/L Glucose 103 H (74-99) mg/dL POC Glucose (mg/dL) 110 H (75-99) mg/dL Calcium 8.3 L (8.4-10.2) mg/dL Erythropoietin (2.00-30.00) mIU/mL Albumin (PEP) (3.80-4.90) g/dL Wbnit-3-Mrceohdqa (0.10-0.40) g/dL Gamma Globulins (0.70-1.50) g/dL RBC Folate (280 - 791) ng/mL Free [place] LC, Quant (0.33-1.94) mg/dL Free [place] LC, Quant (0.57-2.63) mg/dL Assessment and Plan Assessment: ASSESSMENT 1. GI bleed of unknown etiology 2. Anemia 3. Nonsustained ventricular tachycardia, asymptomatic. Resolved. 4. Hypertension, uncontrolled PLAN Continue current medical therapy. We will see Mrs. Lang as needed for the remainder of her hospitalization. Please feel free to call with questions or concerns. Nurse Practitioner note has been reviewed, I agree with a documented findings and plan of care. Patient was seen and examined.
[2017-11-30 11:36] LABS: Glucose,Whole Blood 118 mg/dL (75-99)
--- NOTE | 2017-11-30 14:07 | P.PN ---
Subjective The patient is a 67-year-old lady, with multiple medical problems. The patient has had a long-standing history of anemia, dating back to at least 2013. Baseline hemoglobin has mostly been in the 8 range, since at least 2014. She has had exacerbations with hemoglobin dropping into the 5-6 range. She had an EGD in 05/10 that was negative. Hemoglobin had dropped into the 5 range on 08/11, at which time a colonoscopy was attempted. However, this could not be completed for technical reasons. Reattempts were made which were also unsuccessful. The patient is an [facility] resident, and was brought back to the change in mental status. Hemoglobin was again found to be down into the 5 range. No obvious bleeding was noted by the staff for by the patient. Hemoglobin is improved and stabilized in the 8 range, with transfusion. Consult was therefore placed a further evaluation and recommendations. Review of her records indicate a partial anemia workup in the past. Current it has been in the low normal range. Iron saturations have been low or normal. B12 previously was in the low-normal range at 261. The patient has a history of gastric bypass surgery many years ago. He also has chronic wounds in her left lower extremity for which she has been receiving wound care off and on. pt is lying in bed with no distress, she still looks pale and with generalized weakness Objective - Vital Signs Vital signs: Vital Signs Temp 98.3 F 11/30/17 05:55 Pulse 64 11/30/17 05:55 Resp 18 11/30/17 05:55 BP 138/68 11/30/17 05:55 Pulse Ox 96 11/30/17 05:55 Intake & Output 11/29/17 11/30/17 11/30/17 18:59 06:59 18:59 Other: Voiding Method Incontinent Incontinent Diaper Incontinent # Voids 2 2 - Exam -Constitutional: No acute distress, AAOx0 Eyes: Anicteric sclerae, moist conjunctiva, no lid-lag PERRLA ENMT: NC/AT Oropharynx clear, no erythema, exudates Neck: Supple, FROM, no masses, or JVD No carotid bruits No thyromegaly Lungs: Clear to auscultation Clear to percussion Normal respiratory effort, no accessory muscle use Cardiovascular: Heart regular in rate and rhythm, No murmurs, gallops, or rubs No peripheral edema Abdominal: Soft Nontender, no guarding, rebound or rigidity Abdomen moving with respiration Normoactive bowel sounds No hepatomegaly, No splenomegaly No palpable mass No abdominal wall hernia noted Skin: Normal temperature, tone, texture, turgor No induration No subcutaneous nodules No rash, lesions No ulcers Extremities: No digital cyanosis No clubbing Pedal pulses intact and symmetrical Radial pulses intact and symmetrical Normal gait and station No calf tenderness -Psychiatric: Alert and confused Appropriate affect Intact judgement Neuro: Muscles Strength 5/5 in all 4 extremities Sensation to light touch grossly present throughout Cranial nerves II-XII grossly intact No focal sensory deficits - Labs CBC & Chem 7: 11/30/17 08:24 11/30/17 08:24 Labs: Abnormal Lab Results - Last 24 Hours (Table) 11/28/17 11/29/17 11/29/17 Range/Units 07:57 17:16 20:37 RBC (3.80-5.40) m/uL Hgb (11.4-16.0) gm/dL Hct (34.0-46.0) % MCHC (31.0-37.0) g/dL RDW (11.5-15.5) % Chloride (98-107) mmol/L Carbon Dioxide (22-30) mmol/L Glucose (74-99) mg/dL POC Glucose (mg/dL) 113 H 109 H (75-99) mg/dL Calcium (8.4-10.2) mg/dL Albumin (PEP) 2.33 L (3.80-4.90) g/dL Wnxmq-3-Vmdwgshcm 0.41 H (0.10-0.40) g/dL Gamma Globulins 2.52 H (0.70-1.50) g/dL 11/30/17 11/30/17 11/30/17 Range/Units 07:12 08:24 08:24 RBC 2.97 L (3.80-5.40) m/uL Hgb 7.5 L (11.4-16.0) gm/dL Hct 25.9 L (34.0-46.0) % MCHC 29.2 L (31.0-37.0) g/dL RDW 17.2 H (11.5-15.5) % Chloride 114 H (98-107) mmol/L Carbon Dioxide 21 L (22-30) mmol/L Glucose 103 H (74-99) mg/dL POC Glucose (mg/dL) 110 H (75-99) mg/dL Calcium 8.3 L (8.4-10.2) mg/dL Albumin (PEP) (3.80-4.90) g/dL Qcfmx-3-Kbupxbfba (0.10-0.40) g/dL Gamma Globulins (0.70-1.50) g/dL 11/30/17 Range/Units 11:34 RBC (3.80-5.40) m/uL Hgb (11.4-16.0) gm/dL Hct (34.0-46.0) % MCHC (31.0-37.0) g/dL RDW (11.5-15.5) % Chloride (98-107) mmol/L Carbon Dioxide (22-30) mmol/L Glucose (74-99) mg/dL POC Glucose (mg/dL) 118 H (75-99) mg/dL Calcium (8.4-10.2) mg/dL Albumin (PEP) (3.80-4.90) g/dL Fxain-0-Xxzgmxmkk (0.10-0.40) g/dL Gamma Globulins (0.70-1.50) g/dL Assessment and Plan Plan: -Anemia, KALI, multifactorial hemoglobin went up from 5-8 status post 2 units of blood transfusion, GI and hematology consults are appreciated call, discussed the case with hematology team today, we will start her on intravenous iron for 2 days, recheck urinalysis: Pending -Hypertension, and A. fib, cardiology input is appreciated, increase Norvasc to 5 mg twice a day, echo: EF is 50-55% -History of left DVT status post IVC filter as per documentation, patient is high-risk for for bleed to be on anticoagulation, the risks are more than benefits continue with same treatment and DVT prophylaxis DVT prophylaxis-SCD GI prophylaxis Protonix Prognosis is guarded
[2017-11-30] MEDS: SODIUM FERRIC GLUCONAT-SUCROSE 125 MG in SODIUM CHLORIDE 0.9% 100 ML IVPB SCH (15:47)
--- NOTE | 2017-11-30 15:52 | P.PN ---
Subjective Progress Note Date: 11/30/17 Principal diagnosis: Anemia Patient seen and examined today, labs reviewed. Objective - Vital Signs Vital signs: Vital Signs Temp 98.3 F 11/30/17 05:55 Pulse 64 11/30/17 05:55 Resp 18 11/30/17 05:55 BP 138/68 11/30/17 05:55 Pulse Ox 96 11/30/17 05:55 Intake & Output 11/29/17 11/30/17 11/30/17 18:59 06:59 18:59 Other: Voiding Method Incontinent Incontinent Diaper Incontinent # Voids 2 2 3 - Constitutional General appearance: Present: average body habitus, cooperative, no acute distress - EENT Eyes: Present: EOMI, PERRLA, dentition normal ENT: Present: NA/AT, normal oropharynx - Neck Neck: Present: normal ROM - Respiratory Respiratory: bilateral: CTA - Cardiovascular Rhythm: regular - Gastrointestinal General gastrointestinal: Present: normal bowel sounds, soft - Integumentary Integumentary: Present: pale - Neurologic Neurologic: Present: CNII-XII intact - Musculoskeletal Musculoskeletal: Present: generalized weakness, strength equal bilaterally - Psychiatric Psychiatric: Present: A&O x's 3, appropriate affect, intact judgment & insight - Labs CBC & Chem 7: 11/30/17 08:24 11/30/17 08:24 Labs: Abnormal Lab Results - Last 24 Hours (Table) 11/28/17 11/29/17 11/29/17 Range/Units 07:57 17:16 20:37 RBC (3.80-5.40) m/uL Hgb (11.4-16.0) gm/dL Hct (34.0-46.0) % MCHC (31.0-37.0) g/dL RDW (11.5-15.5) % Chloride (98-107) mmol/L Carbon Dioxide (22-30) mmol/L Glucose (74-99) mg/dL POC Glucose (mg/dL) 113 H 109 H (75-99) mg/dL Calcium (8.4-10.2) mg/dL Albumin (PEP) 2.33 L (3.80-4.90) g/dL Gaedg-3-Tsgcmrgmi 0.41 H (0.10-0.40) g/dL Gamma Globulins 2.52 H (0.70-1.50) g/dL 11/30/17 11/30/17 11/30/17 Range/Units 07:12 08:24 08:24 RBC 2.97 L (3.80-5.40) m/uL Hgb 7.5 L (11.4-16.0) gm/dL Hct 25.9 L (34.0-46.0) % MCHC 29.2 L (31.0-37.0) g/dL RDW 17.2 H (11.5-15.5) % Chloride 114 H (98-107) mmol/L Carbon Dioxide 21 L (22-30) mmol/L Glucose 103 H (74-99) mg/dL POC Glucose (mg/dL) 110 H (75-99) mg/dL Calcium 8.3 L (8.4-10.2) mg/dL Albumin (PEP) (3.80-4.90) g/dL Jjilc-1-Vmwanvzxa (0.10-0.40) g/dL Gamma Globulins (0.70-1.50) g/dL 11/30/17 Range/Units 11:34 RBC (3.80-5.40) m/uL Hgb (11.4-16.0) gm/dL Hct (34.0-46.0) % MCHC (31.0-37.0) g/dL RDW (11.5-15.5) % Chloride (98-107) mmol/L Carbon Dioxide (22-30) mmol/L Glucose (74-99) mg/dL POC Glucose (mg/dL) 118 H (75-99) mg/dL Calcium (8.4-10.2) mg/dL Albumin (PEP) (3.80-4.90) g/dL Wgpib-6-Eokkelzyf (0.10-0.40) g/dL Gamma Globulins (0.70-1.50) g/dL Assessment and Plan Plan: Assessment and Recommendations: 1. Normocytic Hypochromic Anemia - Likely secondary GI Blood Loss - Unable to undergo scope secondary to inadequate toleration of prep. 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 Will continue monitoring and further work-up as outpatient with Dr. Palumbo
[2017-11-30 17:32] LABS: Glucose,Whole Blood 153 mg/dL (75-99)
[2017-11-30] MEDS: MELATONIN 3 MG TABLET PO SCH (20:53)
[2017-11-30] MEDS: FERROUS SULFATE 325 MG TAB PO SCH (20:54)
[2017-11-30] MEDS: CHOLECALCIFEROL 1,000 UNIT TAB PO SCH (20:54)
[2017-11-30] MEDS: MULTIVITAMINS, THERA 1 EACH TAB PO SCH (20:54)
[2017-11-30] MEDS: ATORVASTATIN 40 MG TAB PO SCH (20:54)
[2017-11-30] MEDS: POTASSIUM CHLORIDE ER 20 MEQ TAB.ER PO SCH (20:55)
[2017-11-30] MEDS: SENNOSIDES 8.6 MG TAB PO SCH (20:58)
[2017-11-30 21:32] LABS: Glucose,Whole Blood 124 mg/dL (75-99)
[2017-12-01] MEDS: traMADol 50 MG TAB PO PRN ×3 (00:07→15:59)
[2017-12-01 06:11] LABS: Appearance,Urine Cloudy (Clear); Bilirubin,Urine Negative (Negative); Blood,Urine Negative (Negative); Budding Yeast,Urine Occasional /hpf; Color,Urine Yellow; Glucose,Urine (UA) Negative (Negative); Ketones,Urine Negative (Negative); Leukocyte Esterase,Urine Moderate (Negative); Mucus,Urine Rare /hpf; Nitrite,Urine Negative (Negative); Protein,Urine Negative (Negative); RBC,Urine 1 /hpf (0-5); Specific Gravity,Urine 1.008 (1.001-1.035); Squamous Epithelial Cell,Urine 3 /hpf (0-4); Urobilinogen,Urine <2.0 mg/dL (<2.0); WBC,Urine 24 /hpf (0-5)
[2017-12-01] MEDS: ALLOPURINOL 100 MG TAB PO SCH ×2 (06:18→16:01)
[2017-12-01] MEDS: metFORMIN 500 MG TAB PO SCH ×2 (07:38→21:08)
[2017-12-01] MEDS: amLODIPine 5 MG TAB PO SCH ×2 (07:38→21:08)
[2017-12-01] MEDS: ESCITALOPRAM 10 MG TAB PO SCH (07:38)
[2017-12-01] MEDS: LISINOPRIL 5 MG TAB PO SCH (07:38)
[2017-12-01 07:39] LABS: Methylmalonic Acid 0.19 umol/L (<0.40)
[2017-12-01] MEDS: INSULIN ASPART 100 UNIT/ML 1 ML 10 ML VIAL SQ SCH ×4 (07:42→21:09)
[2017-12-01] MEDS: SODIUM CHLORIDE 0.9% 1,000 ML IV SCH ×2 (07:43→14:21)
[2017-12-01 07:55] LABS: Glucose,Whole Blood 101 mg/dL (75-99)
[2017-12-01] MEDS: SODIUM FERRIC GLUCONAT-SUCROSE 125 MG in SODIUM CHLORIDE 0.9% 100 ML IVPB SCH (08:53)
[2017-12-01 11:09] LABS: Anisocytosis Slight; Basophils % (A) 0 %; Eosinophils # (A) 0.3 k/uL (0-0.7); Eosinophils % (A) 5 %; HCT 25.7 % (34.0-46.0); HGB 7.7 gm/dL (11.4-16.0); Hypochromasia Marked; Lymphocytes # (A) 1.3 k/uL (1.0-4.8); Lymphocytes % (A) 22 %; MCHC 29.9 g/dL (31.0-37.0); MCV 86.9 fL (80.0-100.0); Mean Platelet Volume 7.5; Monocytes # (A) 0.3 k/uL (0-1.0); Monocytes % (A) 5 %; Neutrophils # (A) 3.9 k/uL (1.3-7.7); Neutrophils % (A) 66 %; Platelet Count 247 k/uL (150-450); Poikilocytosis Moderate; RBC 2.96 m/uL (3.80-5.40); RDW 16.9 % (11.5-15.5); WBC 5.9 k/uL (3.8-10.6)
[2017-12-01 11:25] LABS: Anion Gap 10 mmol/L; Blood Urea Nitrogen 17 mg/dL (7-17); Calcium 8.3 mg/dL (8.4-10.2); Carbon Dioxide 21 mmol/L (22-30); Chloride 113 mmol/L (98-107); Glucose 117 mg/dL (74-99); Sodium 144 mmol/L (137-145)
[2017-12-01 11:28] LABS: Potassium 4.4 mmol/L (3.5-5.1)
--- NOTE | 2017-12-01 11:50 | P.PN ---
Subjective Progress Note Date: 12/01/17 Principal diagnosis: Symptomatic anemia 67-year-old female admitted with severe symptomatic iron deficiency anemia with altered mental status. Today she is alert. Denies overt bleeding hematemesis hematochezia melena. No bowel movements. Hemoglobin 7.7. Objective - Vital Signs Vital signs: Vital Signs Temp 98.0 F 12/01/17 07:00 Pulse 60 12/01/17 07:00 Resp 18 12/01/17 07:00 BP 129/63 12/01/17 07:00 Pulse Ox 97 12/01/17 07:00 Intake & Output 11/30/17 12/01/17 12/01/17 18:59 06:59 18:59 Intake Total 500 Output Total 2 Balance 498 Weight 87.5 kg Intake: Oral 500 Output: Urine 2 Other: Voiding Method Diaper Diaper Diaper Incontinent Incontinent Incontinent # Voids 3 1 # Bowel Movements 0 - Exam General appearance: The patient is alert, oriented, in no acute distress. HET: Head is normocephalic and atraumatic. Pupils are equal and reactive. Oropharynx is clear without lesions. Neck: Supple without lymphadenopathy. Trachea midline. Heart: S1 S2. Regular rate and rhythm. Lungs: No crackles or wheezes are heard. Abdomen: Soft, nontender, nondistended with bowel sounds. No peritoneal signs. No palpable organomegaly or masses. Extremities: Normal skin color and turgor. No cyanosis, rash, ulceration, clubbing, or edema. Radial and pedal pulses are 2/4 bilaterally. Neurological: No focal deficits. Strength and sensation are grossly intact. - Labs CBC & Chem 7: 12/01/17 10:53 12/01/17 10:53 Labs: Abnormal Lab Results - Last 24 Hours (Table) 11/30/17 11/30/17 12/01/17 Range/Units 17:23 21:30 04:20 RBC (3.80-5.40) m/uL Hgb (11.4-16.0) gm/dL Hct (34.0-46.0) % MCHC (31.0-37.0) g/dL RDW (11.5-15.5) % Chloride (98-107) mmol/L Carbon Dioxide (22-30) mmol/L Glucose (74-99) mg/dL POC Glucose (mg/dL) 153 H 124 H (75-99) mg/dL Calcium (8.4-10.2) mg/dL Urine Appearance Cloudy H (Clear) Ur Leukocyte Esterase Moderate H (Negative) Urine WBC 24 H (0-5) /hpf Urine Mucus Rare H (None) /hpf Urine Yeast (Budding) Occasional H (None) /hpf 12/01/17 12/01/17 12/01/17 Range/Units 07:34 10:53 10:53 RBC 2.96 L (3.80-5.40) m/uL Hgb 7.7 L (11.4-16.0) gm/dL Hct 25.7 L (34.0-46.0) % MCHC 29.9 L (31.0-37.0) g/dL RDW 16.9 H (11.5-15.5) % Chloride 113 H (98-107) mmol/L Carbon Dioxide 21 L (22-30) mmol/L Glucose 117 H (74-99) mg/dL POC Glucose (mg/dL) 101 H (75-99) mg/dL Calcium 8.3 L (8.4-10.2) mg/dL Urine Appearance (Clear) Ur Leukocyte Esterase (Negative) Urine WBC (0-5) /hpf Urine Mucus (None) /hpf Urine Yeast (Budding) (None) /hpf Assessment and Plan (1) Symptomatic anemia Narrative/Plan: 67-year-old female admitted with symptomatic iron deficiency anemia without overt bleeding status post EGD April 2017 unremarkable. Multiple attempts for colonoscopy unsuccessful secondary to patient's inability to tolerate or take colon prep. Last colonoscopy attempt 2015. Current Visit: Yes Status: Acute Code(s): D64.9 - ANEMIA, UNSPECIFIED SNOMED Code(s): 980417869 (2) Iron deficiency anemia Current Visit: Yes Status: Acute Code(s): D50.9 - IRON DEFICIENCY ANEMIA, UNSPECIFIED SNOMED Code(s): 45763970 Plan: 1. Case was discussed with hematology and medicine. Small bowel capsule endoscopy evaluation scheduled tomorrow; patient consented. Stool occult blood requested. We'll continue to follow with you. Assessment and plan a care discussed with Dr. Worrell
[2017-12-01 12:04] LABS: Glucose,Whole Blood 104 mg/dL (75-99)
[2017-12-01] MEDS ORDERED: MAGNESIUM CITRATE 296 ML BOTTLE PO ONE (17:00)
[2017-12-01 17:25] LABS: Glucose,Whole Blood 97 mg/dL (75-99)
--- NOTE | 2017-12-01 18:02 | PN ---
PROGRESS NOTE DATE OF SERVICE: 12/01/2017 This 67-year-old woman who was admitted with anemia which is multifactorial also had hypertension and history of DVT and multiple other medical issues also. The patient is being closely monitored. At this time the patient is also being seen by multiple consultants including neurology and gastroenterology as well. The patient had EGD which is unremarkable. Multiple attempts at colonoscopy was not successful. Capsule endoscopy is being planned by Gastroenterology at this time. PAST MEDICAL HISTORY: Reviewed. REVIEW OF SYSTEMS: Cardiovascular: No angina or palpitations. Respiratory: No cough. No hemoptysis. GI: As mentioned earlier. : No dysuria. CURRENT MEDICATIONS: 1. Tylenol 650 q.4h p.r.n. 2. DuoNeb q.i.d. and p.r.n. 3. Zyloprim 100 mg p.o. b.i.d. 4. Xanax 0.25 b.i.d. 5. Norvasc 5 mg p.o. b.i.d. 6. Lipitor 40 mg q.h.s. 7. Dulcolax 10 mg p.o. daily. 8. Vitamin D3 1000 mg q.h.s. 9. Lexapro 10 mg daily. 10.Iron sulfate. 11.NovoLog scale. 12.Zestril 5 mg p.o. daily. 13.Milk of magnesia. 14.Melatonin 3 mg q.h.s. 15.Glucophage 500 mg p.o. b.i.d. 16.Multivitamins one p.o. daily. 17.Oxy IR 20 mg q.6h p.r.n. 18.MiraLAX 17 g daily. 19.K-Dur 20 mEq p.o. q.h.s. 20.Senokot 8.6 mg q.h.s. 21.Ultram 50 mg p.o. q.i.d. PHYSICAL EXAM: Patient is alert, oriented x2. Pulse 67, blood pressure 119/49, respiration 18, temperature 98.8, pulse ox 97% room air. HEENT: Conjunctivae normal. Oral mucosa moist. Neck is no jugular venous distention. No carotid bruit. No lymph node enlargement. Cardiovascular S1, S2 muffled. Respiratory: Breath sounds diminished in the bases. No rhonchi. No crackles. ABDOMEN: Soft, nontender. No mass palpable. Legs: No edema. No swelling. NERVOUS SYSTEM: Higher functions as mentioned earlier. Moves all 4 limbs. No focal neurological deficits. Lymphatics: No lymph nodes palpable in the neck, axillae or groin. Skin no ulcer, rash or bleeding. LAB STUDIES: WBC 5, hemoglobin 7.7 and glucose is 117. ASSESSMENT: 1. Anemia, multifactorial, status post blood transfusion. Rule out gastrointestinal bleed. 2. Hypertension. 3. Atrial fibrillation. 4. History of deep vein thrombosis. 5. History of difficult colonoscopy. RECOMMENDATIONS AND DISCUSSION: Recommend to continue current medications, continue symptomatic treatment. Otherwise at this time I recommend closely follow with Gastroenterology. Repeat hemoglobin and capsule enteroscopy study. The patient did have an abdominal pelvis CAT scan in July which showed improved appearance compared to the previous CAT scan. Further recommendations to follow. MMODL / IJN: [id number] /
[2017-12-01] MEDS: MULTIVITAMINS, THERA 1 EACH TAB PO SCH (21:08)
[2017-12-01] MEDS: MELATONIN 3 MG TABLET PO SCH (21:08)
[2017-12-01] MEDS: SENNOSIDES 8.6 MG TAB PO SCH (21:08)
[2017-12-01] MEDS: LIDOCAINE 2% GEL 5 ML TUBE TOPICAL SCH (21:08)
[2017-12-01] MEDS: CHOLECALCIFEROL 1,000 UNIT TAB PO SCH (21:08)
[2017-12-01] MEDS: POTASSIUM CHLORIDE ER 20 MEQ TAB.ER PO SCH (21:08)
[2017-12-01] MEDS: FERROUS SULFATE 325 MG TAB PO SCH (21:08)
[2017-12-01] MEDS: ATORVASTATIN 40 MG TAB PO SCH (21:08)
[2017-12-01 21:43] LABS: Glucose,Whole Blood 103 mg/dL (75-99)
[2017-12-02] MEDS: SODIUM CHLORIDE 0.9% 1,000 ML IV SCH ×2 (02:38→14:38)
[2017-12-02] MEDS: traMADol 50 MG TAB PO PRN ×3 (02:38→21:49)
[2017-12-02] MEDS ORDERED: SIMETHICONE 40 MG/0.6 ML DROPS 2,000 MG/30 ML BOTTLE PO ONE (07:05)
[2017-12-02 07:07] LABS: Glucose,Whole Blood 92 mg/dL (75-99)
[2017-12-02] MEDS: INSULIN ASPART 100 UNIT/ML 1 ML 10 ML VIAL SQ SCH ×4 (08:31→21:44)
[2017-12-02 08:39] LABS: Anisocytosis Slight; Basophils % (A) 1 %; Eosinophils # (A) 0.3 k/uL (0-0.7); Eosinophils % (A) 5 %; HCT 25.8 % (34.0-46.0); HGB 7.7 gm/dL (11.4-16.0); Hypochromasia Marked; Lymphocytes # (A) 1.6 k/uL (1.0-4.8); Lymphocytes % (A) 25 %; MCH 25.7 pg (25.0-35.0); MCHC 29.8 g/dL (31.0-37.0); MCV 86.3 fL (80.0-100.0); Mean Platelet Volume 7.4; Monocytes # (A) 0.3 k/uL (0-1.0); Monocytes % (A) 5 %; Neutrophils % (A) 63 %; Platelet Count 246 k/uL (150-450); Poikilocytosis Slight; RBC 2.99 m/uL (3.80-5.40); RDW 16.9 % (11.5-15.5); WBC 6.4 k/uL (3.8-10.6)
[2017-12-02 08:52] LABS: Anion Gap 8 mmol/L; Blood Urea Nitrogen 16 mg/dL (7-17); Calcium 8.3 mg/dL (8.4-10.2); Carbon Dioxide 26 mmol/L (22-30); Chloride 108 mmol/L (98-107); Glucose 84 mg/dL (74-99); Potassium 4.8 mmol/L (3.5-5.1); Sodium 142 mmol/L (137-145)
[2017-12-02] MEDS: amLODIPine 5 MG TAB PO SCH ×2 (09:00→21:43)
[2017-12-02] MEDS: ESCITALOPRAM 10 MG TAB PO SCH (09:00)
[2017-12-02] MEDS: LISINOPRIL 5 MG TAB PO SCH (09:00)
[2017-12-02] MEDS: ALLOPURINOL 100 MG TAB PO SCH ×2 (09:00→16:54)
[2017-12-02] MEDS: metFORMIN 500 MG TAB PO SCH ×2 (09:00→21:45)
[2017-12-02] MEDS: SODIUM FERRIC GLUCONAT-SUCROSE 125 MG in SODIUM CHLORIDE 0.9% 100 ML IVPB SCH (10:16)
[2017-12-02 12:27] LABS: Glucose,Whole Blood 91 mg/dL (75-99)
[2017-12-02 17:03] LABS: Glucose,Whole Blood 77 mg/dL (75-99)
--- NOTE | 2017-12-02 19:15 | PN ---
PROGRESS NOTE DATE OF SERVICE: 12/02/2017 This 67-year-old woman with a past medical history of multiple medical problems was admitted with anemia. The patient also had a capsular study planned today. No chest pain. No palpitations. No fever. EXAM: Alert and oriented x2. Pulse 65, blood pressure 120/56, respiration 18, temperature 99.1, pulse ox 94% on room air. HEENT: Conjunctivae normal. NECK: No jugular venous distention. CARDIOVASCULAR: S1, S2. RESPIRATORY: Breath sounds diminished in the bases. No rhonchi, no crackles. ABDOMEN: Soft, nontender. LEGS: No edema. NERVOUS SYSTEM: No focal deficits. LABS: WBC ntd, hemoglobin 7.7. ASSESSMENT: 1. Anemia multifactorial, status post blood transfusion, rule out gastrointestinal bleed. 2. On capsular endoscopic study. 3. Hypertension. 4. Atrial fibrillation. 5. History of DVT. 6. History of difficult colonoscopies in the past. RECOMMENDATIONS AND DISCUSSION: I recommend to continue current management and symptomatic treatment. Continue with the capsular endoscope. Otherwise guarded prognosis because of multiple complex medical issues. Further recommendations to follow. MMODL / IJN: [id number] / TRISTAN
[2017-12-02 21:07] LABS: Glucose,Whole Blood 85 mg/dL (75-99)
[2017-12-02] MEDS: ATORVASTATIN 40 MG TAB PO SCH (21:43)
[2017-12-02] MEDS: MULTIVITAMINS, THERA 1 EACH TAB PO SCH (21:44)
[2017-12-02] MEDS: POTASSIUM CHLORIDE ER 20 MEQ TAB.ER PO SCH (21:44)
[2017-12-02] MEDS: SENNOSIDES 8.6 MG TAB PO SCH (21:44)
[2017-12-02] MEDS: CHOLECALCIFEROL 1,000 UNIT TAB PO SCH (21:44)
[2017-12-02] MEDS: MELATONIN 3 MG TABLET PO SCH (21:44)
[2017-12-02] MEDS: FERROUS SULFATE 325 MG TAB PO SCH (21:44)
[2017-12-03] MEDS: SODIUM CHLORIDE 0.9% 1,000 ML IV SCH ×2 (04:04→17:31)
[2017-12-03 07:26] LABS: Glucose,Whole Blood 106 mg/dL (75-99)
[2017-12-03] MEDS: INSULIN ASPART 100 UNIT/ML 1 ML 10 ML VIAL SQ SCH ×4 (09:02→21:06)
[2017-12-03 11:34] LABS: Glucose,Whole Blood 110 mg/dL (75-99)
[2017-12-03] MEDS: amLODIPine 5 MG TAB PO SCH ×2 (11:38→22:04)
[2017-12-03] MEDS: LISINOPRIL 5 MG TAB PO SCH (11:38)
[2017-12-03] MEDS: ALLOPURINOL 100 MG TAB PO SCH ×2 (11:38→17:33)
[2017-12-03] MEDS: ESCITALOPRAM 10 MG TAB PO SCH (11:38)
[2017-12-03] MEDS: metFORMIN 500 MG TAB PO SCH ×2 (11:38→22:05)
[2017-12-03 12:23] LABS: Glucose,Whole Blood 129 mg/dL (75-99)
[2017-12-03 17:32] LABS: Glucose,Whole Blood 107 mg/dL (75-99)
[2017-12-03 20:42] LABS: Glucose,Whole Blood 122 mg/dL (75-99)
[2017-12-03] MEDS: MELATONIN 3 MG TABLET PO SCH (22:04)
[2017-12-03] MEDS: ATORVASTATIN 40 MG TAB PO SCH (22:04)
[2017-12-03] MEDS: SENNOSIDES 8.6 MG TAB PO SCH (22:05)
[2017-12-03] MEDS: POTASSIUM CHLORIDE ER 20 MEQ TAB.ER PO SCH (22:05)
[2017-12-03] MEDS: CHOLECALCIFEROL 1,000 UNIT TAB PO SCH (22:05)
[2017-12-03] MEDS: MULTIVITAMINS, THERA 1 EACH TAB PO SCH (22:05)
[2017-12-03] MEDS: FERROUS SULFATE 325 MG TAB PO SCH (22:05)
[2017-12-03] MEDS: traMADol 50 MG TAB PO PRN (22:06)
--- NOTE | 2017-12-03 23:13 | P.PN ---
Subjective The patient is a 67-year-old lady, with multiple medical problems. The patient has had a long-standing history of anemia, dating back to at least 2013. Baseline hemoglobin has mostly been in the 8 range, since at least 2014. She has had exacerbations with hemoglobin dropping into the 5-6 range. She had an EGD in 05/10 that was negative. Hemoglobin had dropped into the 5 range on 08/11, at which time a colonoscopy was attempted. However, this could not be completed for technical reasons. Reattempts were made which were also unsuccessful. The patient is an [facility] resident, and was brought back to the change in mental status. Hemoglobin was again found to be down into the 5 range. No obvious bleeding was noted by the staff for by the patient. Hemoglobin is improved and stabilized in the 8 range, with transfusion. Consult was therefore placed a further evaluation and recommendations. Review of her records indicate a partial anemia workup in the past. Current it has been in the low normal range. Iron saturations have been low or normal. B12 previously was in the low-normal range at 261. The patient has a history of gastric bypass surgery many years ago. He also has chronic wounds in her left lower extremity for which she has been receiving wound care off and on. pt is lying in bed with no distress, she still looks pale and with generalized weakness Objective - Vital Signs Vital signs: Vital Signs Temp 99.9 F H 12/03/17 15:00 Pulse 61 12/03/17 15:00 Resp 15 12/03/17 15:00 BP 115/51 12/03/17 15:00 Pulse Ox 97 12/03/17 16:14 Intake & Output 12/03/17 12/03/17 12/04/17 06:59 18:59 06:59 Other: Voiding Method Diaper Incontinent # Voids 3 4 - Exam -Constitutional: No acute distress, AAOx0 Eyes: Anicteric sclerae, moist conjunctiva, no lid-lag PERRLA ENMT: NC/AT Oropharynx clear, no erythema, exudates Neck: Supple, FROM, no masses, or JVD No carotid bruits No thyromegaly Lungs: Clear to auscultation Clear to percussion Normal respiratory effort, no accessory muscle use Cardiovascular: Heart regular in rate and rhythm, No murmurs, gallops, or rubs No peripheral edema Abdominal: Soft Nontender, no guarding, rebound or rigidity Abdomen moving with respiration Normoactive bowel sounds No hepatomegaly, No splenomegaly No palpable mass No abdominal wall hernia noted Skin: Normal temperature, tone, texture, turgor No induration No subcutaneous nodules No rash, lesions No ulcers Extremities: No digital cyanosis No clubbing Pedal pulses intact and symmetrical Radial pulses intact and symmetrical Normal gait and station No calf tenderness -Psychiatric: Alert and confused Appropriate affect Intact judgement Neuro: Muscles Strength 5/5 in all 4 extremities Sensation to light touch grossly present throughout Cranial nerves II-XII grossly intact No focal sensory deficits - Labs CBC & Chem 7: 12/02/17 08:17 12/02/17 08:17 Labs: Abnormal Lab Results - Last 24 Hours (Table) 12/03/17 12/03/17 12/03/17 Range/Units 07:19 11:13 12:21 POC Glucose (mg/dL) 106 H 110 H 129 H (75-99) mg/dL 12/03/17 12/03/17 Range/Units 17:15 20:40 POC Glucose (mg/dL) 107 H 122 H (75-99) mg/dL Assessment and Plan Plan: -Anemia, KALI, multifactorial hemoglobin went up from 5-8 status post 2 units of blood transfusion, GI and hematology consults are appreciated call, s/p intravenous iron for 2 days, recheck urinalysis: no hematuria, GI team: capsule camera -Hypertension, and A. fib, cardiology input is appreciated, increase Norvasc to 5 mg twice a day, echo: EF is 50-55% -History of left DVT status post IVC filter as per documentation, patient is high-risk for for bleed to be on anticoagulation, the risks are more than benefits continue with same treatment and DVT prophylaxis DVT prophylaxis-SCD GI prophylaxis Protonix Prognosis is guarded
[2017-12-04] MEDS: SODIUM CHLORIDE 0.9% 1,000 ML IV SCH ×2 (06:07→23:14)
[2017-12-04 07:38] LABS: Glucose,Whole Blood 105 mg/dL (75-99)
[2017-12-04 07:57] LABS: Anisocytosis Slight; Basophils % (A) 0 %; Eosinophils # (A) 0.2 k/uL (0-0.7); Eosinophils % (A) 3 %; HCT 24.4 % (34.0-46.0); HGB 7.1 gm/dL (11.4-16.0); Hypochromasia Marked; Lymphocytes # (A) 1.4 k/uL (1.0-4.8); Lymphocytes % (A) 20 %; MCH 25.2 pg (25.0-35.0); MCHC 29.3 g/dL (31.0-37.0); MCV 85.9 fL (80.0-100.0); Mean Platelet Volume 7.4; Monocytes # (A) 0.3 k/uL (0-1.0); Monocytes % (A) 5 %; Neutrophils # (A) 4.8 k/uL (1.3-7.7); Neutrophils % (A) 70 %; Platelet Count 231 k/uL (150-450); Poikilocytosis Slight; RBC 2.84 m/uL (3.80-5.40); RDW 17.5 % (11.5-15.5); WBC 6.8 k/uL (3.8-10.6)
[2017-12-04 08:10] LABS: Anion Gap 10 mmol/L; Blood Urea Nitrogen 14 mg/dL (7-17); Calcium 8.7 mg/dL (8.4-10.2); Carbon Dioxide 25 mmol/L (22-30); Chloride 108 mmol/L (98-107); Glucose 93 mg/dL (74-99); Potassium 4.5 mmol/L (3.5-5.1); Sodium 143 mmol/L (137-145)
[2017-12-04] MEDS: ESCITALOPRAM 10 MG TAB PO SCH (09:55)
[2017-12-04] MEDS: LISINOPRIL 5 MG TAB PO SCH (09:55)
[2017-12-04] MEDS: metFORMIN 500 MG TAB PO SCH ×2 (09:55→22:13)
[2017-12-04] MEDS: INSULIN ASPART 100 UNIT/ML 1 ML 10 ML VIAL SQ SCH ×4 (09:56→22:12)
[2017-12-04] MEDS: ALLOPURINOL 100 MG TAB PO SCH ×2 (09:56→15:56)
[2017-12-04] MEDS: amLODIPine 5 MG TAB PO SCH ×2 (09:56→19:53)
[2017-12-04 12:31] LABS: Glucose,Whole Blood 118 mg/dL (75-99)
--- NOTE | 2017-12-04 13:35 | P.PN ---
Subjective The patient is a 67-year-old lady, with multiple medical problems. The patient has had a long-standing history of anemia, dating back to at least 2013. Baseline hemoglobin has mostly been in the 8 range, since at least 2014. She has had exacerbations with hemoglobin dropping into the 5-6 range. She had an EGD in 05/10 that was negative. Hemoglobin had dropped into the 5 range on 08/11, at which time a colonoscopy was attempted. However, this could not be completed for technical reasons. Reattempts were made which were also unsuccessful. The patient is an [facility] resident, and was brought back to the change in mental status. Hemoglobin was again found to be down into the 5 range. No obvious bleeding was noted by the staff for by the patient. Hemoglobin is improved and stabilized in the 8 range, with transfusion. Consult was therefore placed a further evaluation and recommendations. Review of her records indicate a partial anemia workup in the past. Current it has been in the low normal range. Iron saturations have been low or normal. B12 previously was in the low-normal range at 261. The patient has a history of gastric bypass surgery many years ago. He also has chronic wounds in her left lower extremity for which she has been receiving wound care off and on. pt is lying in bed with no distress, she still looks pale and with generalized weakness Patient is going low-grade fever, yesterday was 99.9, patient denies any respiratory symptoms for example no cough no chest pain no dyspnea, no diarrhea , no urinary signs and symptoms for example no dysuria Patient complains from chronic left leg wound Objective - Vital Signs Vital signs: Vital Signs Temp 98.5 F 12/04/17 06:15 Pulse 72 12/04/17 06:15 Resp 16 12/04/17 06:15 BP 132/55 12/04/17 06:15 Pulse Ox 95 12/04/17 06:15 Intake & Output 12/03/17 12/04/17 12/04/17 18:59 06:59 18:59 Other: Voiding Method Diaper Diaper Incontinent Incontinent # Voids 4 3 - Exam -Constitutional: No acute distress, AAOx0 Eyes: Anicteric sclerae, moist conjunctiva, no lid-lag PERRLA ENMT: NC/AT Oropharynx clear, no erythema, exudates Neck: Supple, FROM, no masses, or JVD No carotid bruits No thyromegaly Lungs: Clear to auscultation Clear to percussion Normal respiratory effort, no accessory muscle use Cardiovascular: Heart regular in rate and rhythm, No murmurs, gallops, or rubs No peripheral edema Abdominal: Soft Nontender, no guarding, rebound or rigidity Abdomen moving with respiration Normoactive bowel sounds No hepatomegaly, No splenomegaly No palpable mass No abdominal wall hernia noted Skin: Normal temperature, tone, texture, turgor No induration No subcutaneous nodules No rash, lesions Extremities: No digital cyanosis No clubbing Pedal pulses intact and symmetrical Radial pulses intact and symmetrical Normal gait and station No calf tenderness Patient's with left leg wound about 1 inch in length with some purulent discharge with surrounding erythema redness and hot -Psychiatric: Alert and confused Appropriate affect Intact judgement Neuro: Muscles Strength 5/5 in all 4 extremities Sensation to light touch grossly present throughout Cranial nerves II-XII grossly intact No focal sensory deficits - Labs CBC & Chem 7: 12/04/17 07:11 12/04/17 07:11 Labs: Abnormal Lab Results - Last 24 Hours (Table) 12/03/17 12/03/17 12/04/17 Range/Units 17:15 20:40 07:11 RBC 2.84 L (3.80-5.40) m/uL Hgb 7.1 L (11.4-16.0) gm/dL Hct 24.4 L (34.0-46.0) % MCHC 29.3 L (31.0-37.0) g/dL RDW 17.5 H (11.5-15.5) % Chloride (98-107) mmol/L POC Glucose (mg/dL) 107 H 122 H (75-99) mg/dL 12/04/17 12/04/17 12/04/17 Range/Units 07:11 07:35 12:24 RBC (3.80-5.40) m/uL Hgb (11.4-16.0) gm/dL Hct (34.0-46.0) % MCHC (31.0-37.0) g/dL RDW (11.5-15.5) % Chloride 108 H (98-107) mmol/L POC Glucose (mg/dL) 105 H 118 H (75-99) mg/dL Assessment and Plan Plan: -Anemia, KALI, multifactorial hemoglobin went up from 5-8 status post 2 units of blood transfusion, GI and hematology consults are appreciated call, s/p intravenous iron for 2 days, recheck urinalysis: no hematuria, GI team: capsule camera and result is pending -Cellulitis of left lower extremity, from chronic wound infection, sent for wound culture, call ID consult -Hypertension, and A. fib, cardiology input is appreciated, increase Norvasc to 5 mg twice a day, echo: EF is 50-55% -History of left DVT status post IVC filter as per documentation, patient is high-risk for for bleed to be on anticoagulation, the risks are more than benefits continue with same treatment and DVT prophylaxis DVT prophylaxis-SCD GI prophylaxis Protonix Prognosis is guarded
[2017-12-04] MEDS: traMADol 50 MG TAB PO PRN (15:56)
[2017-12-04] MEDS ORDERED: VANCOMYCIN IV PER PHARMACY 1 EACH MISC MISCELLANE PRN (17:04)
[2017-12-04 17:51] LABS: Glucose,Whole Blood 99 mg/dL (75-99)
[2017-12-04] MEDS: VANCOMYCIN 1,250 MG in SODIUM CHLORIDE 0.9% 250 ML IVPB SCH (18:18)
[2017-12-04] MEDS: ALPRAZolam 0.25 MG TAB PO PRN (19:48)
[2017-12-04] MEDS: POTASSIUM CHLORIDE ER 20 MEQ TAB.ER PO SCH (19:53)
[2017-12-04] MEDS: MULTIVITAMINS, THERA 1 EACH TAB PO SCH (19:53)
[2017-12-04] MEDS: SENNOSIDES 8.6 MG TAB PO SCH (19:54)
[2017-12-04] MEDS: CHOLECALCIFEROL 1,000 UNIT TAB PO SCH (19:54)
[2017-12-04] MEDS: FERROUS SULFATE 325 MG TAB PO SCH (19:54)
[2017-12-04] MEDS: ATORVASTATIN 40 MG TAB PO SCH (19:54)
[2017-12-04] MEDS: MELATONIN 3 MG TABLET PO SCH (19:54)
[2017-12-04 20:49] LABS: Glucose,Whole Blood 112 mg/dL (75-99)
[2017-12-04] MEDS: LIDOCAINE 2% GEL 5 ML TUBE TOPICAL SCH (23:12)
--- NOTE | 2017-12-04 23:47 | CONS ---
CONSULTATION DATE OF SERVICE: 12/04/2017. REASON FOR CONSULTATION: Intermittent fever. HISTORY OF PRESENT ILLNESS: The patient is a 67-year-old female, a group home resident, sent to the ER at [facility] from group home on 11/25/2017 for evaluation of mental status changes. Apparently had been going on for a day or two prior to patient being sent the hospital. No clear history of any fever on presentation to the hospital , however, the patient is started having a fever. She did have a fever of 100.8 on 11/30/2017, 100.3 the same day, and low-grade fever of 99.9 on the and 03 of December, that prompted this Infectious Disease consultation. The patient did have a normal white count throughout her hospital stay. Urine was positive on the , did shows trace leukocyte esterases. Repeat on the showing moderate leukocyte esterase. November 25 cultures are pending. November 26 UA was done, no cultures. Because of this intermittent fever, I was asked to see the patient for further recommendations for antibiotic therapy and management of underlying fever. The patient noticed to have anemia with hemoglobin of 5.7 on admission, being managed by the GI team. Hemoglobin has subsequently stabilized. The patient currently denies having any chest pain or shortness of breath or cough. The patient did not have any URI symptoms. No abdominal pain. No nausea, vomiting. No diarrhea. No urinary symptoms of any burning or frequency. The patient does have a complicated history as far as left leg where the patient sustained an injury in the wheelchair many years ago and has required multiple surgeries and did have previous episodes of osteomyelitis and cellulitis. The patient complained of some pain to the left leg area, more of a dull aching pain, no definite radiation. Currently with no drainage, however, the left leg slightly warm and minimally red compared to the right leg. REVIEW OF SYSTEMS: CONSTITUTIONAL: Positive for weakness and low-grade fever. EYES: No complaint. ENT: No complaint. RESPIRATORY: No complaint. CARDIOVASCULAR: No complaint. GENITOURINARY: No complaint. MUSCULOSKELETAL: As per HPI. INTEGUMENTARY: As per HPI. PSYCHOLOGICAL: No complaint. NEUROLOGIC: No complaint. PAST MEDICAL HISTORY: Atrial fibrillation, diabetes mellitus, DVT, fibromyalgia, GI bleed, hypertension, hyperlipidemia, pneumonia, renal insufficiency, history of osteomyelitis, history of MRSA and VRE infection. PAST SURGICAL HISTORY: Adenoidectomy, bariatric surgery, cholecystectomy, joint replacement, tonsillectomy, tubal ligation. SOCIAL HISTORY: Remote history of smoking. No drinking or drug use. Currently a group home resident. FAMILY HISTORY: Father history of [place], at age of 46. Mother has diabetes, at age of 66 from complications from diabetes mellitus system. Sister and brother also with a history of diabetes. ALLERGIES: To multiple medication including to cephalexin, penicillin, mostly with a rash and hives. MEDICATIONS: Medications include the patient currently on Tylenol, DuoNeb, Zyloprim, Xanax, Norvasc, Lipitor, Dulcolax, vitamin D3, Lexapro, iron sulfate, Zestril, melatonin, Glucophage, Theragran, MiraLAX, Senokot, Ultram. EXAMINATION: Blood pressure is 126/61 with a pulse of 73, temperature 99.1, T-max is 100.8. GENERAL DESCRIPTION: An elderly female lying in bed in no distress. No tachypnea or accessory muscle of respiration use. HEENT: Shows slight pallor. No scleral icterus. Oral mucosa is moist. No pharyngeal erythema or thrush. NECK: Trachea central. No thyromegaly. LUNGS: Unlabored breathing. Clear to auscultation anteriorly. No wheeze or crackle. HEART: S1, S2. Regular rate and rhythm and rhythm. ABDOMEN: Soft, no tenderness. No guarding. EXTREMITIES: Left leg slightly warm to touch. Did have multiple scars on it with wound to the lateral side with no slough tissue. Minimal surrounding erythema. No foul smelling drainage. NEUROLOGIC: The patient is awake, alert, oriented and affect normal. LABS: Hemoglobin 8.1, white count 6.6 with a BUN of 14, creatinine 0.65. Electrolytes have been normal. Urine 11/25/2017 was negative. Urine on 12/01/2017 was slightly positive. Unfortunately no urine cultures were done. Repeat has been ordered today. No blood culture on this admission. DIAGNOSTIC IMPRESSION AND PLAN: 1. Patient with intermittent fever of 100.8 to 100.3. The patient is in hospital with GI bleed, being managed by the GI team. The patient's only source at this point for possible infection in the left leg is infected wound with secondary cellulitis. The wound itself does not look deep, hence clinically doubt any deep infection. The likely organism would be gram-positive skin beto. The patient's culture recently has been mostly MRSA and not VRE. 2. Patient noted to have multiple antibiotic allergies that does limit the number of antibiotics that could be safely used. PLAN: 1. Wound culture has been obtained, this will guide antibiotic therapy. 2. Local wound care with Aquacel Silver dressing to be changed every 8 hours. 3. Will check blood cultures, UA and cultures to complete the workup. 4. We will add vancomycin pharmacy to dose target of 15, while watching the kidney function closely. 5. Follow up on clinical condition and culture to further adjust medication if needed. Thank you for this consultation. Will follow the patient along with you. MMODL / IJN: [id number] / TRISTAN
[2017-12-05] MEDS: ALLOPURINOL 100 MG TAB PO SCH ×2 (06:55→15:05)
[2017-12-05 07:19] LABS: Glucose,Whole Blood 105 mg/dL (75-99)
[2017-12-05] MEDS: INSULIN ASPART 100 UNIT/ML 1 ML 10 ML VIAL SQ SCH ×4 (07:53→22:39)
[2017-12-05 08:06] LABS: Anisocytosis Slight; Basophils % (A) 0 %; Eosinophils # (A) 0.2 k/uL (0-0.7); Eosinophils % (A) 3 %; HCT 22.9 % (34.0-46.0); Hypochromasia Marked; Lymphocytes # (A) 1.5 k/uL (1.0-4.8); Lymphocytes % (A) 26 %; MCH 25.9 pg (25.0-35.0); MCV 86.2 fL (80.0-100.0); Mean Platelet Volume 7.3; Monocytes # (A) 0.3 k/uL (0-1.0); Monocytes % (A) 6 %; Neutrophils # (A) 3.6 k/uL (1.3-7.7); Neutrophils % (A) 63 %; Platelet Count 243 k/uL (150-450); Poikilocytosis Slight; RBC 2.65 m/uL (3.80-5.40); RDW 17.9 % (11.5-15.5); WBC 5.7 k/uL (3.8-10.6)
[2017-12-05 08:13] LABS: HGB 6.9 gm/dL (11.4-16.0)
[2017-12-05 08:14] LABS: Anion Gap 9 mmol/L; Blood Urea Nitrogen 14 mg/dL (7-17); Calcium 8.4 mg/dL (8.4-10.2); Carbon Dioxide 26 mmol/L (22-30); Chloride 108 mmol/L (98-107); Glucose 93 mg/dL (74-99); Potassium 4.4 mmol/L (3.5-5.1); Sodium 143 mmol/L (137-145)
[2017-12-05] MEDS: VANCOMYCIN 1,250 MG in SODIUM CHLORIDE 0.9% 250 ML IVPB SCH (10:05)
[2017-12-05] MEDS: LISINOPRIL 5 MG TAB PO SCH (10:05)
[2017-12-05] MEDS: amLODIPine 5 MG TAB PO SCH ×2 (10:05→22:39)
[2017-12-05] MEDS: metFORMIN 500 MG TAB PO SCH ×2 (10:05→22:39)
[2017-12-05] MEDS: ESCITALOPRAM 10 MG TAB PO SCH (10:05)
[2017-12-05] MEDS: SODIUM CHLORIDE 0.9% 1,000 ML IV SCH (10:48)
[2017-12-05 12:17] LABS: Glucose,Whole Blood 111 mg/dL (75-99)
[2017-12-05] MEDS: traMADol 50 MG TAB PO PRN ×2 (15:06→22:35)
--- NOTE | 2017-12-05 16:23 | PN ---
PROGRESS NOTE DATE OF SERVICE: 12/05/2017 REASON FOR FOLLOWUP: Fever with left leg wound and cellulitis. INTERVAL HISTORY: The patient overall feels better and has improved. No fever in the last 24 hours. The patient is breathing comfortably. Denies having any chest pain or cough. No abdominal pain or any worsening pain in the left leg area. PHYSICAL EXAMINATION: Blood pressure 109/55 with a pulse of 61, temperature 98.4. She is 99% on room air. General description is an elderly female lying in bed in no distress. RESPIRATORY SYSTEM: Unlabored breathing. Clear to auscultation anteriorly. HEART: S1, S2. Regular rate and rhythm. ABDOMEN: Soft. No tenderness. Left leg swelling and redness slightly decreased. No drainage. LABS: White count of 5.7. Culture has been negative so far. DIAGNOSTIC IMPRESSION AND PLAN: Patient with low-grade fever with left leg wound and cellulitis. PLAN: Plan at this time is to continue with vancomycin, Pharmacy to dose. Local wound care with Aquacel Silver dressing. Dr. Bhatia will follow this patient tomorrow, to whom the patient is known. MMODL / IJN: [id number] /
[2017-12-05 17:38] LABS: Glucose,Whole Blood 88 mg/dL (75-99)
[2017-12-05 20:35] LABS: Glucose,Whole Blood 151 mg/dL (75-99)
[2017-12-05 21:02] LABS: Anisocytosis Slight; HGB 8.2 gm/dL (11.4-16.0); Hypochromasia Marked; MCH 26.6 pg (25.0-35.0); MCHC 30.5 g/dL (31.0-37.0); MCV 87.1 fL (80.0-100.0); Mean Platelet Volume 7.2; Platelet Count 256 k/uL (150-450); Poikilocytosis Slight; RDW 17.1 % (11.5-15.5); WBC 7.1 k/uL (3.8-10.6)
--- NOTE | 2017-12-05 22:35 | P.PN ---
Subjective The patient is a 67-year-old lady, with multiple medical problems. The patient has had a long-standing history of anemia, dating back to at least 2013. Baseline hemoglobin has mostly been in the 8 range, since at least 2014. She has had exacerbations with hemoglobin dropping into the 5-6 range. She had an EGD in 05/10 that was negative. Hemoglobin had dropped into the 5 range on 08/11, at which time a colonoscopy was attempted. However, this could not be completed for technical reasons. Reattempts were made which were also unsuccessful. The patient is an [facility] resident, and was brought back to the change in mental status. Hemoglobin was again found to be down into the 5 range. No obvious bleeding was noted by the staff for by the patient. Hemoglobin is improved and stabilized in the 8 range, with transfusion. Consult was therefore placed a further evaluation and recommendations. Review of her records indicate a partial anemia workup in the past. Current it has been in the low normal range. Iron saturations have been low or normal. B12 previously was in the low-normal range at 261. The patient has a history of gastric bypass surgery many years ago. He also has chronic wounds in her left lower extremity for which she has been receiving wound care off and on. pt is lying in bed with no distress, she still looks pale and with generalized weakness Patient is going low-grade fever, yesterday was 99.9, patient denies any respiratory symptoms for example no cough no chest pain no dyspnea, no diarrhea , no urinary signs and symptoms for example no dysuria Patient complains from chronic left leg wound she looks more pale today and her Hb is dropping to 6.9 Objective - Vital Signs Vital signs: Vital Signs Temp 99.7 F H 12/05/17 19:22 Pulse 70 12/05/17 19:22 Resp 16 12/05/17 19:22 BP 125/59 12/05/17 19:22 Pulse Ox 98 12/05/17 18:51 Intake & Output 12/05/17 12/05/17 12/06/17 06:59 18:59 06:59 Intake Total 1200 240 0 Balance 1200 240 0 Intake: Oral 1200 240 Blood Product 0 0 Rc Cpda-1 Unit 0 0 [id number] Other: Voiding Method Diaper Diaper Incontinent Incontinent # Voids 4 2 # Bowel Movements 0 0 0 - Exam -Constitutional: No acute distress, AAOx0 Eyes: Anicteric sclerae, moist conjunctiva, no lid-lag PERRLA ENMT: NC/AT Oropharynx clear, no erythema, exudates Neck: Supple, FROM, no masses, or JVD No carotid bruits No thyromegaly Lungs: Clear to auscultation Clear to percussion Normal respiratory effort, no accessory muscle use Cardiovascular: Heart regular in rate and rhythm, No murmurs, gallops, or rubs No peripheral edema Abdominal: Soft Nontender, no guarding, rebound or rigidity Abdomen moving with respiration Normoactive bowel sounds No hepatomegaly, No splenomegaly No palpable mass No abdominal wall hernia noted Skin: Normal temperature, tone, texture, turgor No induration No subcutaneous nodules No rash, lesions Extremities: No digital cyanosis No clubbing Pedal pulses intact and symmetrical Radial pulses intact and symmetrical Normal gait and station No calf tenderness Patient's with left leg wound about 1 inch in length with some purulent discharge with surrounding erythema redness and hot, improving -Psychiatric: Alert and confused Appropriate affect Intact judgement Neuro: Muscles Strength 5/5 in all 4 extremities Sensation to light touch grossly present throughout Cranial nerves II-XII grossly intact No focal sensory deficits - Labs CBC & Chem 7: 12/05/17 20:34 12/05/17 07:34 Labs: Abnormal Lab Results - Last 24 Hours (Table) 12/05/17 12/05/17 12/05/17 Range/Units 07:17 07:34 07:34 RBC 2.65 L (3.80-5.40) m/uL Hgb 6.9 L* (11.4-16.0) gm/dL Hct 22.9 L (34.0-46.0) % MCHC 30.0 L (31.0-37.0) g/dL RDW 17.9 H (11.5-15.5) % Chloride 108 H (98-107) mmol/L POC Glucose (mg/dL) 105 H (75-99) mg/dL Crossmatch 12/05/17 12/05/17 12/05/17 Range/Units 12:11 14:23 20:28 RBC (3.80-5.40) m/uL Hgb (11.4-16.0) gm/dL Hct (34.0-46.0) % MCHC (31.0-37.0) g/dL RDW (11.5-15.5) % Chloride (98-107) mmol/L POC Glucose (mg/dL) 111 H 151 H (75-99) mg/dL Crossmatch See Detail 12/05/17 Range/Units 20:34 RBC 3.10 L (3.80-5.40) m/uL Hgb 8.2 L (11.4-16.0) gm/dL Hct 27.0 L (34.0-46.0) % MCHC 30.5 L (31.0-37.0) g/dL RDW 17.1 H (11.5-15.5) % Chloride (98-107) mmol/L POC Glucose (mg/dL) (75-99) mg/dL Crossmatch Microbiology - Last 24 Hours (Table) 12/04/17 18:01 Blood Culture - Preliminary Blood No Growth after 24 hours 12/04/17 16:00 Gram Stain - Preliminary Leg - Left Wound Culture - Preliminary Presumptive MRSA 12/04/17 16:00 Anaerobic Culture - Preliminary Leg - Left Assessment and Plan Plan: -Anemia, KALI, multifactorial hemoglobin went up from 5 to 8 status post 2 units of blood transfusion Hb low again today at 6.9 i spoke with pt and she agrees with one uint of blood transfusion , GI and hematology consults are appreciated call, s/p intravenous iron for 2 days, recheck urinalysis: no hematuria, GI team : capsule camera and result is pending -Cellulitis of left lower extremity, from chronic wound infection, sent for wound culture, call ID consult, improving -Hypertension, and A. fib, cardiology input is appreciated, increase Norvasc to 5 mg twice a day, echo: EF is 50-55% -History of left DVT status post IVC filter as per documentation, patient is high-risk for for bleed to be on anticoagulation, the risks are more than benefits continue with same treatment and DVT prophylaxis DVT prophylaxis-SCD GI prophylaxis Protonix Prognosis is guarded
[2017-12-05] MEDS: ALPRAZolam 0.25 MG TAB PO PRN (22:36)
[2017-12-05] MEDS: MULTIVITAMINS, THERA 1 EACH TAB PO SCH (22:38)
[2017-12-05] MEDS: SENNOSIDES 8.6 MG TAB PO SCH (22:38)
[2017-12-05] MEDS: FERROUS SULFATE 325 MG TAB PO SCH (22:38)
[2017-12-05] MEDS: MELATONIN 3 MG TABLET PO SCH (22:38)
[2017-12-05] MEDS: CHOLECALCIFEROL 1,000 UNIT TAB PO SCH (22:39)
[2017-12-05] MEDS: ATORVASTATIN 40 MG TAB PO SCH (22:39)
[2017-12-05] MEDS: POTASSIUM CHLORIDE ER 20 MEQ TAB.ER PO SCH (22:39)
[2017-12-06] MEDS: SODIUM CHLORIDE 0.9% 1,000 ML IV SCH ×2 (02:52→11:33)
--- NOTE | 2017-12-06 04:03 | P.PN ---
Subjective Progress Note Date: 12/04/17 Patient is a 67-year-old female who was admitted because of mental status changes and was found to have profound anemia. She had multiple unsuccessful attempts at colonoscopy in the past and her last upper endoscopy in 2017 was unremarkable. The patient had prior gastric bypass surgery. A capsule endoscopy was completed this admission which showed a polypoid area in the distal jejunum proximal ileum with evidence of bloody discoloration of the intestinal fluids in that area. Her hemoglobin is around 7.7. Patient is not having any significant complaints. Objective - Vital Signs Vital signs: Vital Signs Temp 98.5 F 12/04/17 06:15 Pulse 72 12/04/17 06:15 Resp 16 12/04/17 06:15 BP 132/55 12/04/17 06:15 Pulse Ox 95 12/04/17 06:15 Intake & Output 12/03/17 12/04/17 12/04/17 18:59 06:59 18:59 Other: Voiding Method Diaper Diaper Incontinent Incontinent # Voids 4 3 - Exam General: Appears stated age, very pleasant, in no acute distress Head and neck: Normocephalic and atraumatic, conjunctivae pink and sclerae not icteric, mucous membranes moist and pink. No masses in the neck or tracheal shifts Lungs: Clear to auscultation with no dullness to percussion Heart: Regular, no abnormal sounds, murmurs, gallops or friction rubs abdomen: Soft, no masses or organomegalies. No tenderness. Bowel sounds present Extremities: No clubbing, cyanosis or edema Neurologic: Alert and oriented 3. Cranial nerves grossly intact, no gross sensory or motor abnormalities - Labs CBC & Chem 7: 12/05/17 20:34 12/05/17 07:34 Labs: Abnormal Lab Results - Last 24 Hours (Table) 12/03/17 12/03/17 12/04/17 Range/Units 17:15 20:40 07:11 RBC 2.84 L (3.80-5.40) m/uL Hgb 7.1 L (11.4-16.0) gm/dL Hct 24.4 L (34.0-46.0) % MCHC 29.3 L (31.0-37.0) g/dL RDW 17.5 H (11.5-15.5) % Chloride (98-107) mmol/L POC Glucose (mg/dL) 107 H 122 H (75-99) mg/dL 12/04/17 12/04/17 Range/Units 07:11 07:35 RBC (3.80-5.40) m/uL Hgb (11.4-16.0) gm/dL Hct (34.0-46.0) % MCHC (31.0-37.0) g/dL RDW (11.5-15.5) % Chloride 108 H (98-107) mmol/L POC Glucose (mg/dL) 105 H (75-99) mg/dL Assessment and Plan Assessment: Blood loss anemia could be on the basis of small bowel pathology as suggested on her recent capsule endoscopy. I would consider a small bowel enteroscopy using a pediatric colonoscope which could reach the area of concern as noted on the capsule endoscopy. I will discuss with you and with the patient and plan accordingly.
[2017-12-06] MEDS: traMADol 50 MG TAB PO PRN ×2 (06:45→15:41)
[2017-12-06] MEDS: ALLOPURINOL 100 MG TAB PO SCH ×2 (06:46→15:41)
[2017-12-06 07:24] LABS: Glucose,Whole Blood 100 mg/dL (75-99)
[2017-12-06] MEDS: INSULIN ASPART 100 UNIT/ML 1 ML 10 ML VIAL SQ SCH ×4 (07:57→21:43)
[2017-12-06] MEDS: VANCOMYCIN 1,250 MG in SODIUM CHLORIDE 0.9% 250 ML IVPB SCH (07:59)
[2017-12-06 09:22] LABS: Anisocytosis Slight; Basophils % (A) 0 %; Eosinophils # (A) 0.3 k/uL (0-0.7); Eosinophils % (A) 4 %; HCT 26.3 % (34.0-46.0); HGB 8.3 gm/dL (11.4-16.0); Hypochromasia Marked; Lymphocytes # (A) 1.8 k/uL (1.0-4.8); Lymphocytes % (A) 25 %; MCH 26.9 pg (25.0-35.0); MCHC 31.5 g/dL (31.0-37.0); MCV 85.6 fL (80.0-100.0); Mean Platelet Volume 7.4; Monocytes # (A) 0.4 k/uL (0-1.0); Monocytes % (A) 6 %; Neutrophils # (A) 4.5 k/uL (1.3-7.7); Neutrophils % (A) 63 %; Platelet Count 229 k/uL (150-450); Poikilocytosis Slight; RBC 3.07 m/uL (3.80-5.40); RDW 17.7 % (11.5-15.5); WBC 7.2 k/uL (3.8-10.6)
[2017-12-06 09:50] LABS: Anion Gap 9 mmol/L; Blood Urea Nitrogen 19 mg/dL (7-17); Calcium 8.4 mg/dL (8.4-10.2); Carbon Dioxide 24 mmol/L (22-30); Chloride 108 mmol/L (98-107); Glucose 83 mg/dL (74-99); Potassium 4.9 mmol/L (3.5-5.1); Sodium 141 mmol/L (137-145)
[2017-12-06 11:39] LABS: Glucose,Whole Blood 89 mg/dL (75-99)
--- NOTE | 2017-12-06 12:03 | P.PN ---
Subjective The patient is a 67-year-old lady, with multiple medical problems. The patient has had a long-standing history of anemia, dating back to at least 2013. Baseline hemoglobin has mostly been in the 8 range, since at least 2014. She has had exacerbations with hemoglobin dropping into the 5-6 range. She had an EGD in 05/10 that was negative. Hemoglobin had dropped into the 5 range on 08/11, at which time a colonoscopy was attempted. However, this could not be completed for technical reasons. Reattempts were made which were also unsuccessful. The patient is an [facility] resident, and was brought back to the change in mental status. Hemoglobin was again found to be down into the 5 range. No obvious bleeding was noted by the staff for by the patient. Hemoglobin is improved and stabilized in the 8 range, with transfusion. Consult was therefore placed a further evaluation and recommendations. Review of her records indicate a partial anemia workup in the past. Current it has been in the low normal range. Iron saturations have been low or normal. B12 previously was in the low-normal range at 261. The patient has a history of gastric bypass surgery many years ago. He also has chronic wounds in her left lower extremity for which she has been receiving wound care off and on. pt is lying in bed with no distress, she still looks pale and with generalized weakness Patient is going low-grade fever, yesterday was 99.7, left leg wound cellulitis is growing MRSA she looks more pale today and her Hb is dropping to 6.9 status post one unit of blood transfusion her hemoglobin went up to 8.3, patient had endoscopic Isaac which showed pathology in the distal ileum Objective - Vital Signs Vital signs: Vital Signs Temp 98.9 F 12/06/17 07:00 Pulse 62 12/06/17 07:00 Resp 18 12/06/17 07:00 BP 127/60 12/06/17 07:00 Pulse Ox 96 12/06/17 07:00 Intake & Output 12/05/17 12/06/17 12/06/17 18:59 06:59 18:59 Intake Total 240 1350 Balance 240 1350 Intake: Oral 240 1100 Blood Product 0 250 Rc Cpda-1 Unit 0 250 [id number] Other: Voiding Method Diaper Diaper Diaper Incontinent Incontinent Incontinent # Voids 2 3 # Bowel Movements 0 0 - Exam -Constitutional: No acute distress, AAOx0 Eyes: Anicteric sclerae, moist conjunctiva, no lid-lag PERRLA ENMT: NC/AT Oropharynx clear, no erythema, exudates Neck: Supple, FROM, no masses, or JVD No carotid bruits No thyromegaly Lungs: Clear to auscultation Clear to percussion Normal respiratory effort, no accessory muscle use Cardiovascular: Heart regular in rate and rhythm, No murmurs, gallops, or rubs No peripheral edema Abdominal: Soft Nontender, no guarding, rebound or rigidity Abdomen moving with respiration Normoactive bowel sounds No hepatomegaly, No splenomegaly No palpable mass No abdominal wall hernia noted Skin: Normal temperature, tone, texture, turgor No induration No subcutaneous nodules No rash, lesions Extremities: No digital cyanosis No clubbing Pedal pulses intact and symmetrical Radial pulses intact and symmetrical Normal gait and station No calf tenderness Patient's with left leg wound about 1 inch in length with some purulent discharge with surrounding erythema redness and hot, improving -Psychiatric: Alert and less confused Appropriate affect Intact judgement Neuro: Muscles Strength 5/5 in all 4 extremities Sensation to light touch grossly present throughout Cranial nerves II-XII grossly intact No focal sensory deficits - Labs CBC & Chem 7: 12/06/17 08:57 12/06/17 08:57 Labs: Abnormal Lab Results - Last 24 Hours (Table) 12/05/17 12/05/17 12/05/17 Range/Units 12:11 14:23 20:28 RBC (3.80-5.40) m/uL Hgb (11.4-16.0) gm/dL Hct (34.0-46.0) % MCHC (31.0-37.0) g/dL RDW (11.5-15.5) % Chloride (98-107) mmol/L BUN (7-17) mg/dL POC Glucose (mg/dL) 111 H 151 H (75-99) mg/dL Crossmatch See Detail 12/05/17 12/06/17 12/06/17 Range/Units 20:34 07:19 08:57 RBC 3.10 L 3.07 L (3.80-5.40) m/uL Hgb 8.2 L 8.3 L (11.4-16.0) gm/dL Hct 27.0 L 26.3 L (34.0-46.0) % MCHC 30.5 L (31.0-37.0) g/dL RDW 17.1 H 17.7 H (11.5-15.5) % Chloride (98-107) mmol/L BUN (7-17) mg/dL POC Glucose (mg/dL) 100 H (75-99) mg/dL Crossmatch 12/06/17 Range/Units 08:57 RBC (3.80-5.40) m/uL Hgb (11.4-16.0) gm/dL Hct (34.0-46.0) % MCHC (31.0-37.0) g/dL RDW (11.5-15.5) % Chloride 108 H (98-107) mmol/L BUN 19 H (7-17) mg/dL POC Glucose (mg/dL) (75-99) mg/dL Crossmatch Microbiology - Last 24 Hours (Table) 12/04/17 18:01 Blood Culture - Preliminary Blood No Growth after 24 hours 12/04/17 16:00 Gram Stain - Preliminary Leg - Left Wound Culture - Preliminary Presumptive MRSA Assessment and Plan Plan: -Anemia, KALI, multifactorial hemoglobin went up from 5 to 8.3 status post 2 units of blood transfusion Hb low again today at 6.9 , GI and hematology consults are appreciated call, s/p intravenous iron for 2 days, GI team: capsule camera showing polypoid pathology in the distal ileum and the planned for small bowel enteroscopy -Cellulitis of left lower extremity, from chronic wound infection, culture is growing MRSA, ID follow-up is appreciated patient was placed on vancomycin -Hypertension, and A. fib, cardiology input is appreciated, increase Norvasc to 5 mg twice a day, echo: EF is 50-55% -History of left DVT status post IVC filter as per documentation, patient is high-risk for for bleed to be on anticoagulation, the risks are more than benefits continue with same treatment and DVT prophylaxis DVT prophylaxis-SCD GI prophylaxis Protonix Prognosis is guarded
[2017-12-06] MEDS ORDERED: fentaNYL (PF) 50 MCG/ML 2 ML AMP ONE ×2 (14:42)
[2017-12-06] MEDS ORDERED: PROPOFOL 10 MG/ML 20 ML VIAL IV ONE ×2 (14:42)
[2017-12-06] MEDS ORDERED: LIDOCAINE 1% INJ 10MG/ML (20 ML MDV) ONE ×2 (14:42)
[2017-12-06] MEDS ORDERED: LACTATED RINGERS 1,000 ML IV ONE (14:52)
--- NOTE | 2017-12-06 15:14 | P.PCN ---
Date of Procedure: 12/06/17 Procedure(s) Performed: Procedure: Small bowel enteroscopy. Preoperative diagnosis: GI bleeding, anemia and abnormal capsule endoscopy. Postoperative diagnosis: Prior gastric bypass surgery, otherwise, exam to the mid/distal ileum within normal limits without finding any abnormality as suggested on the capsule study. Preparation and Sedation: Was Provided by Anesthesia. Brief Clinical History: The patient is a 67-year-old female who was admitted because of mental status changes and was found to have profound anemia. She had multiple unsuccessful attempts at colonoscopy in the past and her last upper endoscopy in 2017 was unremarkable. The patient had prior gastric bypass surgery. A capsule endoscopy was completed this admission which showed a polypoid area in the distal jejunum/proximal ileum with evidence of bloody discoloration of the intestinal fluids in that area. Her hemoglobin is around 7.7. Patient is not having any significant complaints. Other details are summarized in the history and physical and dictated consultations and progress notes. This evaluation is to assess the area of abnormality in the jejunum/ ileum for possible endoscopic intervention. Procedure: With the patient on her left lateral decubitus position and after informed consent and adequate sedation, I passed the Olympus PCF H190L videocolonoscope through the cricopharyngeus down the esophagus. The endoscope was passed into the gastric remnant then into the small bowel and was advanced to a good distance as far as the endoscope would reach. I was confident that we have covered the duodenum and the jejunum and a significant portion of the ileum, yet, I did not come across any abnormality or signs of bleeding. Certainly, this evaluation does not show the ileum totally. The patient tolerated the procedure well. Plan: The patient was reassured. Will allow regular diet and further plans can be made based on her course.
[2017-12-06] MEDS: amLODIPine 5 MG TAB PO SCH ×2 (15:28→21:58)
[2017-12-06] MEDS: metFORMIN 500 MG TAB PO SCH ×2 (15:41→21:59)
[2017-12-06] MEDS: ESCITALOPRAM 10 MG TAB PO SCH (15:41)
[2017-12-06] MEDS: LISINOPRIL 5 MG TAB PO SCH (15:41)
[2017-12-06 17:05] LABS: Glucose,Whole Blood 229 mg/dL (75-99)
[2017-12-06 21:13] LABS: Glucose,Whole Blood 58 mg/dL (75-99)
[2017-12-06 21:30] LABS: Glucose,Whole Blood 70 mg/dL (75-99)
[2017-12-06] MEDS: ALPRAZolam 0.25 MG TAB PO PRN (21:57)
[2017-12-06] MEDS: ATORVASTATIN 40 MG TAB PO SCH (21:58)
[2017-12-06] MEDS: FERROUS SULFATE 325 MG TAB PO SCH (21:58)
[2017-12-06] MEDS: MELATONIN 3 MG TABLET PO SCH (21:58)
[2017-12-06] MEDS: CHOLECALCIFEROL 1,000 UNIT TAB PO SCH (21:58)
[2017-12-06] MEDS: SENNOSIDES 8.6 MG TAB PO SCH (21:59)
[2017-12-06] MEDS: POTASSIUM CHLORIDE ER 20 MEQ TAB.ER PO SCH (21:59)
[2017-12-06] MEDS: MULTIVITAMINS, THERA 1 EACH TAB PO SCH (21:59)
[2017-12-07] MEDS: SODIUM CHLORIDE 0.9% 1,000 ML IV SCH ×2 (06:22→15:47)
[2017-12-07] MEDS: ALLOPURINOL 100 MG TAB PO SCH ×2 (06:29→15:51)
[2017-12-07 07:14] LABS: Glucose,Whole Blood 103 mg/dL (75-99)
[2017-12-07] MEDS: INSULIN ASPART 100 UNIT/ML 1 ML 10 ML VIAL SQ SCH ×4 (07:56→21:37)
[2017-12-07] MEDS ORDERED: VANCOMYCIN TROUGH DUE 1 EACH MISC MISCELLANE ONE (08:00)
[2017-12-07] MEDS: metFORMIN 500 MG TAB PO SCH ×2 (08:21→21:38)
[2017-12-07] MEDS: ESCITALOPRAM 10 MG TAB PO SCH (08:21)
[2017-12-07] MEDS: amLODIPine 5 MG TAB PO SCH ×2 (08:21→21:37)
[2017-12-07] MEDS: LISINOPRIL 5 MG TAB PO SCH (08:21)
[2017-12-07] MEDS: VANCOMYCIN 1,250 MG in SODIUM CHLORIDE 0.9% 250 ML IVPB SCH (11:21)
[2017-12-07 11:59] LABS: Glucose,Whole Blood 159 mg/dL (75-99)
[2017-12-07 14:25] LABS: Anisocytosis Slight; Basophils % (A) 1 %; Eosinophils # (A) 0.2 k/uL (0-0.7); Eosinophils % (A) 4 %; HCT 28.9 % (34.0-46.0); HGB 8.8 gm/dL (11.4-16.0); Hypochromasia Marked; Lymphocytes # (A) 1.6 k/uL (1.0-4.8); Lymphocytes % (A) 26 %; MCH 26.7 pg (25.0-35.0); MCHC 30.4 g/dL (31.0-37.0); MCV 87.6 fL (80.0-100.0); Mean Platelet Volume 7.1; Monocytes # (A) 0.3 k/uL (0-1.0); Monocytes % (A) 5 %; Neutrophils # (A) 3.9 k/uL (1.3-7.7); Neutrophils % (A) 64 %; Platelet Count 252 k/uL (150-450); Poikilocytosis Slight; RDW 17.5 % (11.5-15.5); WBC 6.1 k/uL (3.8-10.6)
[2017-12-07 17:13] LABS: Glucose,Whole Blood 112 mg/dL (75-99)
[2017-12-07 20:54] LABS: Glucose,Whole Blood 138 mg/dL (75-99)
[2017-12-07] MEDS: ATORVASTATIN 40 MG TAB PO SCH (21:37)
[2017-12-07] MEDS: CHOLECALCIFEROL 1,000 UNIT TAB PO SCH (21:37)
[2017-12-07] MEDS: MELATONIN 3 MG TABLET PO SCH (21:37)
[2017-12-07] MEDS: FERROUS SULFATE 325 MG TAB PO SCH (21:37)
[2017-12-07] MEDS: SENNOSIDES 8.6 MG TAB PO SCH (21:38)
[2017-12-07] MEDS: MULTIVITAMINS, THERA 1 EACH TAB PO SCH (21:38)
[2017-12-07] MEDS: POTASSIUM CHLORIDE ER 20 MEQ TAB.ER PO SCH (21:38)
[2017-12-07] MEDS: ALPRAZolam 0.25 MG TAB PO PRN (21:38)
[2017-12-07] MEDS: LIDOCAINE 2% GEL 5 ML TUBE TOPICAL SCH (21:40)
--- NOTE | 2017-12-07 23:05 | P.PN ---
Subjective The patient is a 67-year-old lady, with multiple medical problems. The patient has had a long-standing history of anemia, dating back to at least 2013. Baseline hemoglobin has mostly been in the 8 range, since at least 2014. She has had exacerbations with hemoglobin dropping into the 5-6 range. She had an EGD in 05/10 that was negative. Hemoglobin had dropped into the 5 range on 08/11, at which time a colonoscopy was attempted. However, this could not be completed for technical reasons. Reattempts were made which were also unsuccessful. The patient is an [facility] resident, and was brought back to the change in mental status. Hemoglobin was again found to be down into the 5 range. No obvious bleeding was noted by the staff for by the patient. Hemoglobin is improved and stabilized in the 8 range, with transfusion. Consult was therefore placed a further evaluation and recommendations. Review of her records indicate a partial anemia workup in the past. Current it has been in the low normal range. Iron saturations have been low or normal. B12 previously was in the low-normal range at 261. The patient has a history of gastric bypass surgery many years ago. He also has chronic wounds in her left lower extremity for which she has been receiving wound care off and on. pt is lying in bed with no distress, she still looks pale and with generalized weakness Patient is going low-grade fever, yesterday was 99.7, left leg wound cellulitis is growing MRSA 12/07/17 pt is more normal color , she is up in bed and eating , better mentation with treatment of cellutlitis , pt is on vancomycin as per ID recommendation for MRSA cellulitis, pt is still on iv fluid , she is s/p enteroscopy which did not show significant pathology explain pt s/s Objective - Vital Signs Vital signs: Vital Signs Temp 100.3 F H 12/07/17 22:48 Pulse 76 12/07/17 22:48 Resp 18 12/07/17 22:48 BP 124/59 12/07/17 22:48 Pulse Ox 93 L 12/07/17 22:48 Intake & Output 12/07/17 12/07/17 12/08/17 06:59 18:59 06:59 Other: Voiding Method Diaper Incontinent # Voids 1 2 # Bowel Movements 2 - Exam -Constitutional: No acute distress, AAOx0 Eyes: Anicteric sclerae, moist conjunctiva, no lid-lag PERRLA ENMT: NC/AT Oropharynx clear, no erythema, exudates Neck: Supple, FROM, no masses, or JVD No carotid bruits No thyromegaly Lungs: Clear to auscultation Clear to percussion Normal respiratory effort, no accessory muscle use Cardiovascular: Heart regular in rate and rhythm, No murmurs, gallops, or rubs No peripheral edema Abdominal: Soft Nontender, no guarding, rebound or rigidity Abdomen moving with respiration Normoactive bowel sounds No hepatomegaly, No splenomegaly No palpable mass No abdominal wall hernia noted Skin: Normal temperature, tone, texture, turgor No induration No subcutaneous nodules No rash, lesions Extremities: No digital cyanosis No clubbing Pedal pulses intact and symmetrical Radial pulses intact and symmetrical Normal gait and station No calf tenderness Patient's with left leg wound about 1 inch in length with some purulent discharge with surrounding erythema redness and hot, improving -Psychiatric: Alert and less confused Appropriate affect Intact judgement Neuro: Muscles Strength 5/5 in all 4 extremities Sensation to light touch grossly present throughout Cranial nerves II-XII grossly intact No focal sensory deficits - Labs CBC & Chem 7: 12/07/17 14:12 12/06/17 08:57 Labs: Abnormal Lab Results - Last 24 Hours (Table) 12/07/17 12/07/17 12/07/17 Range/Units 07:07 11:55 14:12 RBC 3.30 L (3.80-5.40) m/uL Hgb 8.8 L (11.4-16.0) gm/dL Hct 28.9 L (34.0-46.0) % MCHC 30.4 L (31.0-37.0) g/dL RDW 17.5 H (11.5-15.5) % POC Glucose (mg/dL) 103 H 159 H (75-99) mg/dL 12/07/17 12/07/17 Range/Units 17:09 20:52 RBC (3.80-5.40) m/uL Hgb (11.4-16.0) gm/dL Hct (34.0-46.0) % MCHC (31.0-37.0) g/dL RDW (11.5-15.5) % POC Glucose (mg/dL) 112 H 138 H (75-99) mg/dL Microbiology - Last 24 Hours (Table) 12/04/17 18:01 Blood Culture - Preliminary Blood No Growth after 72 hours 12/04/17 16:00 Anaerobic Culture - Preliminary Leg - Left Assessment and Plan Plan: -Anemia, KALI, multifactorial hemoglobin went up from 5 to 8.8 status post 3 units of blood transfusion GI and hematology consults are appreciated , s/p intravenous iron for 2 days, GI team: capsule camera showing polypoid pathology in the distal ileum and the planned for small bowel enteroscopy: unremarkable but ileum was not evaluated totally ,GI f/u -Cellulitis of left lower extremity, from chronic wound infection, culture is growing MRSA, ID follow-up is appreciated patient was placed on vancomycin -Hypertension, and A. fib, cardiology input is appreciated, increase Norvasc to 5 mg twice a day, echo: EF is 50-55% -History of left DVT status post IVC filter as per documentation, patient is high-risk for for bleed to be on anticoagulation, the risks are more than benefits continue with same treatment and DVT prophylaxis DVT prophylaxis-SCD GI prophylaxis Protonix Prognosis is guarded
[2017-12-07 23:56] LABS: Calcium 8.2 mg/dL (8.4-10.2); Potassium 4.5 mmol/L (3.5-5.1)
[2017-12-08] MEDS: SODIUM CHLORIDE 0.9% 1,000 ML IV SCH (04:13)
[2017-12-08 07:25] LABS: Glucose,Whole Blood 101 mg/dL (75-99)
[2017-12-08 07:56] VITALS: RESP 16
--- NOTE | 2017-12-08 08:17 | XR ---
EXAMINATION TYPE: XR bone survey complete DATE OF EXAM: 12/07/2017 COMPARISON: NONE HISTORY: Bone survey Bony calvarium : 2 views of the bony calvarium demonstrate. Hyperostosis of the calvarium. No defini te bony lesion Spine: Two views of the cervical, thoracic and lumbar spines are submitted. Calcifications in the so ft tissues of the neck are compatible with carotid artery calcification. There is limited assessment of the cervical spine due to positioning. Multilevel degenerative disc disease and facet arthropathy with diffuse osteopenia. Multilevel degenerative disc disease and hypertrophic changes of the thoraci c spine noted. Similar findings are seen involving the lumbar spine. Due to technique assessment is l imited. PELVIS: Single view of the pelvis demonstrates. Limited assessment due to technique and extensive ov erlying fecal debris prominent bowel loops. Diffuse osteopenia noted. UPPER EXTREMITIES: Two views of the upper extremities. Arthropathy of the shoulder. Diffuse osteopeni a noted. LOWER EXTREMITIES: 2 views of the lower extremities. Previous surgery noted with diffuse osteopenia. Vascular calcifications noted and there is arthropathy of the knee joint. Previous surgery involving the left knee noted. IMPRESSION: 1. Limited exam due to technique and diffuse osteopenia. No discrete lesions are seen. 2. Extensive retained fecal debris in dilated bowel loops correlate clinically.
[2017-12-08] MEDS: ALPRAZolam 0.25 MG TAB PO PRN (08:32)
[2017-12-08] MEDS: ESCITALOPRAM 10 MG TAB PO SCH (08:33)
[2017-12-08] MEDS: LISINOPRIL 5 MG TAB PO SCH (08:33)
[2017-12-08] MEDS: metFORMIN 500 MG TAB PO SCH (08:34)
[2017-12-08] MEDS: ALLOPURINOL 100 MG TAB PO SCH ×2 (08:34→16:00)
[2017-12-08] MEDS: amLODIPine 5 MG TAB PO SCH (08:34)
[2017-12-08] MEDS: INSULIN ASPART 100 UNIT/ML 1 ML 10 ML VIAL SQ SCH ×2 (08:35→11:54)
[2017-12-08 09:18] LABS: Anion Gap 11 mmol/L; Blood Urea Nitrogen 21 mg/dL (7-17); Calcium 8.5 mg/dL (8.4-10.2); Carbon Dioxide 24 mmol/L (22-30); Chloride 108 mmol/L (98-107); Glucose 95 mg/dL (74-99); Potassium 4.6 mmol/L (3.5-5.1); Sodium 143 mmol/L (137-145)
[2017-12-08] MEDS ORDERED: VANCOMYCIN 1,500 MG in SODIUM CHLORIDE 0.9% 250 ML IVPB SCH (11:00)
[2017-12-08 11:39] LABS: Glucose,Whole Blood 126 mg/dL (75-99)
--- NOTE | 2017-12-08 14:27 | P.DS ---
Providers Date of admission: 11/25/17 13:45 Attending physician: Haritha Lara Consults: 11/26/17 12:08 Consult Physician Routine Consulting Provider: Johnnie Palumbo Consult Reason/Comments: anemia Do you want consulting provider notified?: Yes 11/27/17 09:18 Consult Physician Routine Consulting Provider: Johnnie Silva Consult Reason/Comments: run of pvcs Do you want consulting provider notified?: Yes 12/04/17 12:47 Consult Physician Routine Consulting Provider: Merary Kendrick Consult Reason/Comments: intermittant fever Do you want consulting provider notified?: Yes Primary care physician: Darling Belle DO Hospital Course: The patient is a 67-year-old lady, with multiple medical problems. The patient has a history of gastric bypass surgery many years ago. History of left DVT status post IVC filter as per documentation, He also has chronic wounds in her left lower extremity for which she has been receiving wound care off and on.The patient has had a long-standing history of anemia, dating back to at least 2013. Baseline hemoglobin has mostly been in the 8 range, since at least 2014. She has had periods with hemoglobin dropping into the 5-6 range. She had an EGD in 05/10 that was negative. Hemoglobin had dropped into the 5 range on 08/11, at which time a colonoscopy was attempted. However, this could not be completed for technical reasons. Reattempts were made which were also unsuccessful. The patient is an [facility] resident, and was brought back to the change in mental status change. Hemoglobin was again found to be down into the 5 range. No obvious bleeding was noted by the staff for by the patient. Hemoglobin is improved and stabilized in the 8 range, with transfusion. Consult was therefore placed a further evaluation and recommendations. Review of her records indicate a partial anemia workup in the past. Current it has been in the low normal range. Patient has been evaluated by GI team while in-house.A capsule endoscopy was completed this admission which showed a polypoid area in the distal jejunum/proximal ileum with evidence of bloody discoloration of the intestinal fluids in that area; then she underwent enteroscopy which did not show significant pathology explain pt s/s (as per GI: we have covered the duodenum and the jejunum and a significant portion of the ileum, yet, we did not come across any abnormality or signs of bleeding. Certainly, this evaluation does not show the ileum totally) is tolerating regular diet with no abdominal pain, no N/V, no diarrhea. Patient was cleared by GI team for for discharge and follow-up as an outpatient She has been evaluated by dictaphone typist for wide QRS complex tachycardia, Echocardiogram showed EF between 50-55%, right ventricle is enlarged and LA is dilated, currently her heart rate is at 66 bpm Patient also has been evaluated by the Hem/onc team for her diagnosis of normocytic hypochromic anemia-likely secondary GI blood loss, Iron Studies low, s/p parental Iron, B12 is 953, underlying MGUS is suspected but patient could not finish her workup for example patient could not collect 24-hour urine sample because of her chronic urine incontinence and refusal to do the ring cath. Bone survey showed diffuse osteopenia with no discrete lesions, Patient was cleared by the hematology team for discharge and follow-up as an outpatient Patient had low-grade fever, pt found to have left leg wound cellulitis and is growing MRSA, patient was evaluated by ID team, and started on vancomycin. WBC at 6.1K upon discharge [WNL]. She still spiking fever at 100.3 yesterday 2017. Her left leg wound erythema and swelling and tenderness are improving significantly and there is less discharge from the wound. Her mental status is improved significantly Patient was recommended to be discharged on IV vancomycin. Patient is getting PICC line before discharge I discussed the case with her guardian Mr. Richmond, and updated him about the problems and management plan, he agrees to to do the PICC line and IV vancomycin , risks including but not limited to vancomycin-induced nephrotoxicity i.e.kidney damage is explained to the guardian as well as the recommendation to transfuse blood when needed and he verbalized understanding and acceptance to these recommendations and management plan Patient has been cleared for discharge by ID team, GI team, hematology team, and cardiology team Patient is found stable and can be discharged back to her senior care however the prognosis remains very guarded, she is high-risk for readmission, and she needs follow-up as an outpatient I called [facility] at [phone] and asked to talk to the nurse who is going to take care of the patient, I talked to Mrs. Karuna FREDERICK updated her with the patient conditions and the recommendation for the follow-up, and to monitor blood test while on IV antibiotics including BMP and CBC, and recommendation to transfuse blood with a drop in hemoglobin if needed, she verbalized understanding and kindly took note of this General: No distress, pleasant CVS: S1, S2, RRR, no murmur Lungs: B/L CTA Abdomen: Soft, NT, ND, was at the bowel sounds extremity: left leg wound about 1 inch in length with some purulent discharge with surrounding erythema redness and hot,all are improving Patient Condition at Discharge: Fair Plan - Discharge Summary Discharge Rx Participant: No New Discharge Prescriptions: New Vancomycin 1,500 mg IVPB Q24H #14 vial Insulin Aspart [NovoLOG (formulary)] 0 unit SQ ACHS vial Lisinopril [Zestril] 5 mg PO DAILY tab Continue Atorvastatin [Lipitor] 40 mg PO HS Allopurinol [Zyloprim] 100 mg PO BID@0700,1600 Cholecalciferol [Vitamin D3] 1,000 unit PO HS Ferrous Sulfate [Iron (65 MG Elemental)] 650 mg PO HS Polyethylene Glycol 3350 [Miralax] 17 gm PO DAILY PRN PRN Reason: Constipation Bisacodyl [Dulcolax] 10 mg PO DAILY PRN PRN Reason: Constipation Potassium Chloride ER [K-Dur 20] 20 meq PO HS Melatonin 3 mg PO HS@2000 Omeprazole 20 mg PO HS Escitalopram [Lexapro] 10 mg PO DAILY@0800 Aspirin 81 mg PO HS metFORMIN HCL [Glucophage] 500 mg PO BID Ipratropium-Albuterol Nebulize [Duoneb 0.5 mg-3 mg/3 ml Soln] 3 ml INHALATION RT-Q4H PRN PRN Reason: Shortness Of Breath Sennosides [Senokot] 8.6 mg PO HS amLODIPine [Norvasc] 5 mg PO DAILY Mylanta Suspension 200-200-20 30 ml PO Q4H PRN PRN Reason: Indigestion Acetaminophen Tab [Tylenol] 650 mg PO Q4H PRN PRN Reason: Fever And/ Or Pain ALPRAZolam [Xanax] 0.25 mg PO BID PRN #60 tab PRN Reason: Anxiety Phenol [Chloraseptic] 2 spray MUCOUS MEM Q6H PRN PRN Reason: Sore Throat Bisacodyl [Dulcolax] 10 mg RECTAL DAILY PRN PRN Reason: Constipation Lidocaine 2% Gel [Xylocaine Jelly 2%] 1 applic TOPICAL Q72H Magnesium Hydroxide [Milk of Magnesia] 2,400 mg PO DAILY PRN PRN Reason: Constipation oxyCODONE HCL 20 mg PO Q6HR PRN 30 Days #20 tab PRN Reason: Pain Discontinued Multivitamins, Thera [Multivitamin (formulary)] 1 tab PO HS Ertapenem [INVanz] 1 gm IVPB ONCE Discharge Medication List Atorvastatin [Lipitor] 40 mg PO HS 08/30/15 [History] Allopurinol [Zyloprim] 100 mg PO BID@0700,1600 05/21/16 [History] Cholecalciferol [Vitamin D3] 1,000 unit PO HS 06/29/16 [History] Ferrous Sulfate [Iron (65 MG Elemental)] 650 mg PO HS 06/29/16 [History] Polyethylene Glycol 3350 [Miralax] 17 gm PO DAILY PRN 06/29/16 [History] Bisacodyl [Dulcolax] 10 mg PO DAILY PRN 01/26/17 [History] Melatonin 3 mg PO HS@2000 03/23/17 [History] Potassium Chloride ER [K-Dur 20] 20 meq PO HS 03/23/17 [History] Aspirin 81 mg PO HS 04/20/17 [History] Escitalopram [Lexapro] 10 mg PO DAILY@0800 04/20/17 [History] Omeprazole 20 mg PO HS 04/20/17 [History] metFORMIN HCL [Glucophage] 500 mg PO BID 05/19/17 [History] Ipratropium-Albuterol Nebulize [Duoneb 0.5 mg-3 mg/3 ml Soln] 3 ml INHALATION RT -Q4H PRN 05/22/17 [History] Mylanta Suspension 200-200-20 30 ml PO Q4H PRN 05/22/17 [History] Sennosides [Senokot] 8.6 mg PO HS 05/22/17 [History] amLODIPine [Norvasc] 5 mg PO DAILY 05/22/17 [History] Acetaminophen Tab [Tylenol] 650 mg PO Q4H PRN 07/29/17 [History] ALPRAZolam [Xanax] 0.25 mg PO BID PRN #60 tab 08/10/17 [Rx] Bisacodyl [Dulcolax] 10 mg RECTAL DAILY PRN 11/25/17 [History] Lidocaine 2% Gel [Xylocaine Jelly 2%] 1 applic TOPICAL Q72H 11/25/17 [History] Magnesium Hydroxide [Milk of Magnesia] 2,400 mg PO DAILY PRN 11/25/17 [History] Phenol [Chloraseptic] 2 spray MUCOUS MEM Q6H PRN 11/25/17 [History] Insulin Aspart [NovoLOG (formulary)] 0 unit SQ ACHS vial 12/08/17 [Rx] Lisinopril [Zestril] 5 mg PO DAILY tab 12/08/17 [Rx] Vancomycin 1,500 mg IVPB Q24H #14 vial 12/08/17 [Rx] oxyCODONE HCL 20 mg PO Q6HR PRN 30 Days #20 tab 12/08/17 [Rx] Follow up Appointment(s)/Referral(s): Darling Belle DO [Primary Care Provider] - 1 Week Johnnie Palumbo MD [STAFF PHYSICIAN] - 12/23/17 11:30 am (for your anemia follow up ) Ray Salazar MD [STAFF PHYSICIAN] - 12/22/17 6:15 pm (for post hospital follow up ) Clayton Bhatia MD [STAFF PHYSICIAN] - 1 Week ([facility], [NON-STAFF] - Ambulatory/Diagnostic Orders: Basic Metabolic Panel [LAB.AMB] Location: Determined By Patient Complete Blood Count w/diff [LAB.AMB] Location: Determined By Patient Vancomycin,Trough [LAB.AMB] Location: Determined By Patient Patient Instructions/Handouts: Type 2 Diabetes in Adults (DC), Iron Deficiency Anemia (DC) Activity/Diet/Wound Care/Special Instructions: Cardiac, diabetic diet. Activity as tolerated, change positions every 2 hours while awake, fall precautions. MRSA/VRE literature given to patient. Left leg wound care- Recommendations: 1. Monitor lytes with daily blood tests, BMP and CBC daily while on IV antibiotics 2. Transfuse blood as needed with a drop in hemoglobin 3. Follow-up with your doctor's appointment Discharge Disposition: TRANSFER TO SNF/ECF
[2017-12-08] MEDS: LIDOCAINE 2% INJ 20 MG/ML SQ ONE ×2 (14:36→15:06)
[2017-12-08] MEDS ORDERED: LIDOCAINE 2% INJ 20 MG/ML SQ ONE (14:47)
[2017-12-08 15:20] VITALS: BP 127/56; PULSE 84; TEMP 98.2
--- NOTE | 2017-12-08 15:23 | IR ---
PICC LINE PLACEMENT: HISTORY: Infection requiring long-term antibiotic therapy PROCEDURE: Ultrasound and fluoroscopic guidance of PICC line placement. COMPLICATIONS: None ANESTHESIA: 1. 1% Lidocaine locally. FINDINGS/TECHNIQUE: The procedure was explained to the patient. The risks, complications, benefits and alternatives were discussed and any questions were answered. Informed consent was obtained. The patient was placed supine on the fluoroscopic table and prepped and draped in the usual sterile [facility] ion. Utilizing a 21 gauge needle and sonographic and fluoroscopic guidance, access in the vein was achieved and there is placement of a 0.018 guidewire. The vein is patent. A 4-F sheath was placed o fanta the guidewire. The guidewire and dilator were removed and a 4-F. PICC line was placed through th e sheath with the tip at the level of the SVC. The sheath was removed, the catheter was flushed and sutured into position. The patient was stable throughout the procedure and remained stable upon disc harge from the Department of Radiology. The vein puncture was patent under ultrasound. A hernandez scale image was obtained to document patency of the vein punctured. All elements of the maximal barrier technique were utilized. FLUOROSCOPY TIME: 0.7 minute, one image submitted IMPRESSION: Successful PICC line placement under ultrasound and fluoroscopic guidance.
--- NOTE | 2017-12-08 16:39 | P.PN ---
Subjective Progress Note Date: 12/08/17 Principal diagnosis: Anemia Patient seen and examined today, sleeping, no new complaints, still lethargic and complaints of pain in left leg, but no worse. Objective - Vital Signs Vital signs: Vital Signs Temp 98.2 F 12/08/17 14:02 Pulse 84 12/08/17 14:02 Resp 16 12/08/17 15:45 BP 127/56 12/08/17 14:02 Pulse Ox 99 12/08/17 14:02 Intake & Output 12/07/17 12/08/17 12/08/17 18:59 06:59 18:59 Intake Total 600 Balance 600 Weight 87.5 kg Intake: Oral 600 Other: Voiding Method Diaper Diaper Incontinent Incontinent # Voids 2 2 3 # Bowel Movements 2 1 - Constitutional General appearance: Present: average body habitus, no acute distress - EENT Eyes: Present: EOMI, PERRLA, poor dentition ENT: Present: NA/AT - Neck Neck: Present: normal ROM - Respiratory Respiratory: bilateral: CTA (no increased effort) - Cardiovascular Rhythm: regular Heart sounds: normal: S1, S2 - Peripheral edema leg Peripheral Edema: left: 2+ (Evidence of chronic wound) - Gastrointestinal General gastrointestinal: Present: normal bowel sounds, soft, tenderness - Integumentary Integumentary: Present: pale - Neurologic Neurologic: Present: CNII-XII intact - Musculoskeletal Musculoskeletal: Present: generalized weakness, strength equal bilaterally - Psychiatric Psychiatric Comment(s): Lethargic, appropriately responds. Psychiatric: Present: A&O x's 3 - Labs CBC & Chem 7: 12/07/17 14:12 12/08/17 08:20 Labs: Abnormal Lab Results - Last 24 Hours (Table) 12/07/17 12/07/17 12/07/17 Range/Units 17:09 20:52 23:36 Chloride 108 H (98-107) mmol/L BUN 22 H (7-17) mg/dL Glucose 118 H (74-99) mg/dL POC Glucose (mg/dL) 112 H 138 H (75-99) mg/dL Calcium 8.2 L (8.4-10.2) mg/dL 12/08/17 12/08/17 12/08/17 Range/Units 07:21 08:20 11:27 Chloride 108 H (98-107) mmol/L BUN 21 H (7-17) mg/dL Glucose (74-99) mg/dL POC Glucose (mg/dL) 101 H 126 H (75-99) mg/dL Calcium (8.4-10.2) mg/dL Microbiology - Last 24 Hours (Table) 12/04/17 18:01 Blood Culture - Preliminary Blood No Growth after 72 hours Assessment and Plan Plan: Assessment and Recommendations: 1. Normocytic Hypochromic Anemia - Likely secondary GI Blood Loss - Multiple faled attemps at scope secondary to inadequate toleration of prep. 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 - 24 hour urine bence cannon protein attempted although patient is incontinent and refusing catheter for urine. Will attempt to collect as outpatient for initial full work-up - Metastatic Bone survey completed and reviewed - Hemoglobin stable at this time, follow-up within next 1-2 weeks after discharge. Physician Attestation: I have completed the full history and physical of this patient and agree with above dictation by Omaira Luciano NP, Dictated as a scribe.
--- NOTE | 2017-12-13 09:59 | CDI ---
Last Revision, June 2017 Documentation Clarification Form Date: 12/13/17 From: Violeta Win Phone: If you have a question regarding this query, please contact Shweta Evans at [phone] between 8am and 5pm. Admit Date: 11/25/2017 1:45:00 PM Patient Name: Rain Lang Visit Number: [id number] Discharge Date: 12/08/17 ATTENTION: The Clinical Documentation Specialists (CDI) and [facility] Coding Staff appreciate your assistance in clarifying documentation. Please respond to the clarification below the line at the bottom and electronically sign. The CDI & [facility] Coding staff will review the response and follow-up if needed. Please note: Queries are made part of the Legal Health Record. If you have any questions, please contact the author of this message via ITS. Dr. Keita E Sheet Chronic wound of left lower extremity is documented in Dr. Palumbo's, Dr. Christianson's consult notes, the discharge summary and in the progress notes from 11/28 thru . Patient history/risk factors: Patient was admitted for blood loss anemia and GI bleed. The patient has a history of diabetes, morbid obesity and peripheral neuropathy. Clinical Indicators: Chronic wounds with cellulitis and growing MRSA. Nursing documentation states ulcer of left lower turner. Wound assessment: 1 inch in length with some purulent discharge with surrounding erythema, redness and hot. Other Clinical Indicators: Wound culture grew MRSA. Treatment: IV Vancomycin In your professional opinion, can the etiology and severity of the wound be further specified as one of the following? Etiology: Traumatic wound Non-pressure chronic ulcer due to diabetes Non-pressure chronic ulcer due to arterial insufficiency Non-pressure chronic ulcer due to venous insufficiency Non-pressure chronic ulcer due to trauma Other, Please specify Unable to determine Severity: Limited to breakdown of skin With fat layer exposed With necrosis of muscle With necrosis of bone Other, Please specify Unable to determine non- pressure ulcer due to many factors, limited to breakdown of skin MTDD
== END 2017-12-08 16:31 | DRG 812 ==
LOC: EC 11:42 → 6SEL 13:45 → 4MS4W 11-26 19:33
PROVIDERS: ADMIT Hospitalist; ATTEND Hospitalist
PROC: 30230N1 Transfusion of Nonautologous Red Blood Cells into Peripheral Vein, Open Approach (ICD-10-PCS; principal; 2017-11-25)
PROC: 0DJ08ZZ Inspection of Upper Intestinal Tract, Via Natural or Artificial Opening Endoscopic (ICD-10-PCS; 2017-12-06)
PROC: 02HV33Z Insertion of Infusion Device into Superior Vena Cava, Percutaneous Approach (ICD-10-PCS; 2017-12-08 14:00)
DX: D62 Acute posthemorrhagic anemia (principal); I47.2 Ventricular tachycardia; K92.2 Gastrointestinal hemorrhage, unspecified; L03.116 Cellulitis of left lower limb; F05 Delirium due to known physiological condition; L97.921 Non-pressure chronic ulcer of unspecified part of left lower leg limited to breakdown of skin; B95.62 Methicillin resistant Staphylococcus aureus infection as the cause of diseases classified elsewhere; E66.01 Morbid (severe) obesity due to excess calories; E11.42 Type 2 diabetes mellitus with diabetic polyneuropathy; D47.2 Monoclonal gammopathy; R13.10 Dysphagia, unspecified; I08.3 Combined rheumatic disorders of mitral, aortic and tricuspid valves; I48.2 Chronic atrial fibrillation; E11.22 Type 2 diabetes mellitus with diabetic chronic kidney disease; N18.3 Chronic kidney disease, stage 3 (moderate); F03.90 Unspecified dementia, unspecified severity, without behavioral disturbance, psychotic disturbance, mood disturbance, and anxiety; E78.5 Hyperlipidemia, unspecified; G47.30 Sleep apnea, unspecified; I12.9 Hypertensive chronic kidney disease with stage 1 through stage 4 chronic kidney disease, or unspecified chronic kidney disease; I49.3 Ventricular premature depolarization; J44.9 Chronic obstructive pulmonary disease, unspecified; M79.7 Fibromyalgia; M85.80 Other specified disorders of bone density and structure, unspecified site; R32 Unspecified urinary incontinence; F32.9 Major depressive disorder, single episode, unspecified; F41.9 Anxiety disorder, unspecified; G43.909 Migraine, unspecified, not intractable, without status migrainosus; G89.29 Other chronic pain; H93.13 Tinnitus, bilateral; K64.9 Unspecified hemorrhoids; M54.5 Low back pain; R10.9 Unspecified abdominal pain; Z79.82 Long term (current) use of aspirin; Z79.899 Other long term (current) drug therapy; Z79.84 Long term (current) use of oral hypoglycemic drugs; Z88.1 Allergy status to other antibiotic agents; Z91.040 Latex allergy status; Z91.010 Allergy to peanuts; Z88.0 Allergy status to penicillin; Z88.7 Allergy status to serum and vaccine; Z91.048 Other nonmedicinal substance allergy status; Z88.8 Allergy status to other drugs, medicaments and biological substances; Z98.84 Bariatric surgery status; Z96.641 Presence of right artificial hip joint; Z96.652 Presence of left artificial knee joint; Z90.49 Acquired absence of other specified parts of digestive tract; Z87.891 Personal history of nicotine dependence; Z87.11 Personal history of peptic ulcer disease; Z86.718 Personal history of other venous thrombosis and embolism; Z86.14 Personal history of Methicillin resistant Staphylococcus aureus infection; Z87.01 Personal history of pneumonia (recurrent); Z68.33 Body mass index [BMI] 33.0-33.9, adult; Z87.440 Personal history of urinary (tract) infections; Z91.81 History of falling; Z98.51 Tubal ligation status; Z82.49 Family history of ischemic heart disease and other diseases of the circulatory system; Z83.3 Family history of diabetes mellitus; Z80.9 Family history of malignant neoplasm, unspecified
CPT/HCPCS: 36415; 36569; 44360; 74022; 76937; 77001; 77075; 80048; 80053; 80202; 80306; 81001; 82140; 82550; 82553; 82607; 82668; 82728; 82747; 83036; 83540; 83550; 83735; 83883; 83921; 84165; 84484; 85025; 85027; 85045; 85652; 86334; 86850; 86900; 86901; 86920; 87040; 87070; 87075; 87077; 87086; 87186; 87205; 91110; 93005; 93306; 94760; 96360; 96361; 99285

== ENCOUNTER 2017-12-11 19:33 | Inpatient (IN) | payer MEDICARE, OTHER ==
[2017-12-11] MEDS ORDERED: MORPHINE SULFATE 4 MG/ML SYRINGE IVP STA ×2 (19:57→22:37)
[2017-12-11] MEDS ORDERED: ONDANSETRON 4 MG/2 ML VIAL IVP STA (19:57)
[2017-12-11 20:27] LABS: Anisocytosis Slight; Basophils % (A) 0 %; Eosinophils # (A) 0.3 k/uL (0-0.7); Eosinophils % (A) 4 %; HCT 26.2 % (34.0-46.0); HGB 7.9 gm/dL (11.4-16.0); Hypochromasia Marked; Lymphocytes # (A) 1.3 k/uL (1.0-4.8); Lymphocytes % (A) 19 %; MCH 25.8 pg (25.0-35.0); Monocytes # (A) 0.3 k/uL (0-1.0); Monocytes % (A) 5 %; Neutrophils # (A) 4.7 k/uL (1.3-7.7); Neutrophils % (A) 71 %; Platelet Count 312 k/uL (150-450); RBC 3.04 m/uL (3.80-5.40); RDW 17.4 % (11.5-15.5); WBC 6.6 k/uL (3.8-10.6)
--- NOTE | 2017-12-11 20:36 | ED ---
Extremity Problem HPI - General Chief complaint: Extremity Problem,Nontraumatic Stated complaint: knee swelling Time Seen by Provider: 12/11/17 19:42 Source: patient, EMS, RN notes reviewed Mode of arrival: EMS Limitations: no limitations - History of Present Illness Initial comments: 67-year-old female presented emergency Department chief complaint of worsening leg infection. Patient states that she has had a PICC line in her right arm currently on vancomycin for cellulitis of her left lower leg. They noticed that she's had rapid increased swelling and pain to left knee and has an open sore now. She states that she only had a open sore to her left lower tib-fib region prior. She reports fever and chills. Patient sent in from [facility] and they have stated that she's had increased confusion. Report showed that wound tested positive for MRSA. - Related Data Home Medications Medication Instructions Recorded Confirmed Atorvastatin [Lipitor] 40 mg PO HS 08/30/15 11/25/17 Allopurinol [Zyloprim] 100 mg PO BID@0700,1600 05/21/16 11/25/17 Cholecalciferol [Vitamin D3] 1,000 unit PO HS 06/29/16 11/25/17 Ferrous Sulfate [Iron (65 MG 650 mg PO HS 06/29/16 11/25/17 Elemental)] Polyethylene Glycol 3350 [Miralax] 17 gm PO DAILY PRN 06/29/16 11/25/17 Bisacodyl [Dulcolax] 10 mg PO DAILY PRN 01/26/17 11/25/17 Melatonin 3 mg PO HS@2000 03/23/17 11/25/17 Potassium Chloride ER [K-Dur 20] 20 meq PO HS 03/23/17 11/25/17 Aspirin 81 mg PO HS 04/20/17 11/25/17 Escitalopram [Lexapro] 10 mg PO DAILY@0800 04/20/17 11/25/17 Omeprazole 20 mg PO HS 04/20/17 11/25/17 metFORMIN HCL [Glucophage] 500 mg PO BID 05/19/17 11/25/17 Ipratropium-Albuterol Nebulize 3 ml INHALATION RT-Q4H PRN 05/22/17 11/25/17 [Duoneb 0.5 mg-3 mg/3 ml Soln] Mylanta Suspension 200-200-20 30 ml PO Q4H PRN 05/22/17 11/25/17 Sennosides [Senokot] 8.6 mg PO HS 05/22/17 11/25/17 amLODIPine [Norvasc] 5 mg PO DAILY 05/22/17 11/25/17 Acetaminophen Tab [Tylenol] 650 mg PO Q4H PRN 07/29/17 11/25/17 Bisacodyl [Dulcolax] 10 mg RECTAL DAILY PRN 11/25/17 11/25/17 Lidocaine 2% Gel [Xylocaine Jelly 1 applic TOPICAL Q72H 11/25/17 11/25/17 2%] Magnesium Hydroxide [Milk of 2,400 mg PO DAILY PRN 11/25/17 11/25/17 Magnesia] Phenol [Chloraseptic] 2 spray MUCOUS MEM Q6H PRN 11/25/17 11/25/17 Previous Rx's Medication Instructions Recorded ALPRAZolam [Xanax] 0.25 mg PO BID PRN #60 tab 08/10/17 Insulin Aspart [NovoLOG 0 unit SQ ACHS vial 12/08/17 (formulary)] Lisinopril [Zestril] 5 mg PO DAILY tab 12/08/17 Vancomycin 1,500 mg IVPB Q24H #14 vial 12/08/17 oxyCODONE HCL 20 mg PO Q6HR PRN 30 Days #20 tab 12/08/17 Allergies Allergy/AdvReac Type Severity Reaction Status Date / Time adhesive tape Allergy Severe Rash/Hives Verified 11/25/17 11:56 cephalexin monohydrate Allergy Severe Rash/Hives Verified 11/25/17 11:56 [From Keflex] influenza virus vaccine, Allergy Severe Anaphylaxis Verified 11/25/17 11:56 specific [influenza virus vacc,specific] latex Allergy Severe Rash/Hives Verified 11/25/17 11:56 peanut Allergy Severe Anaphylaxis Verified 11/25/17 11:56 Penicillins Allergy Severe Swelling Verified 11/25/17 11:56 tetanus toxoid, adsorbed Allergy Intermediate Rash/Hives Verified 11/25/17 11:56 Influenza Virus Vaccines Allergy Anaphylaxis Verified 11/25/17 11:56 Review of Systems ROS Statement: Those systems with pertinent positive or pertinent negative responses have been documented in the HPI. ROS Other: All systems not noted in ROS Statement are negative. Past Medical History Past Medical History: Atrial Fibrillation, Diabetes Mellitus, Deep Vein Thrombosis (DVT), Fibromyalgia, GI Bleed, Hyperlipidemia, Hypertension, Pneumonia, Renal Disease, Skin Disorder Additional Past Medical History / Comment(s): Chronic blood loss anemia, hypertension, hyperlipidemia, fibromyalgia, chronic stage III renal failure, morbid obesity, DVT left lower leg with a previous IVC filter in place, dermatitis, gastric ulcer with a previous [place]-en-Y gastric bypass surgery, chronic lower back pain, morbid obesity, previous history of severe sepsis w/ septic shock including septicemia with MRSA, SVT, DM type 2, hemorrhoids, cellulitis of left lower extremity, dysphagia, falls, muscle weakness, pneumonia , sleep apnea, bilateral tinnitus, atrial fibrillation, UTI. Left eye contusion/ left lower leg laceration - surgically repaired, Right heel pressure ulcer - healed, peripheral neuropathy (bilateral hands and feet), migraines, eczema, sinus problems, lower GI bleed. Last Myocardial Infarction Date:: unknown History of Any Multi-Drug Resistant Organisms: MRSA, VRE Date of last positivie culture/infection: 12/04/17/MRSA; 10/21/2014 VRE MDRO Source:: left leg, sputum-MRSA; Urine-VRE Past Surgical History: Adenoidectomy, Bariatric Surgery, Cholecystectomy, Joint Replacement, Tonsillectomy, Tubal Ligation Additional Past Surgical History / Comment(s): Gastric bypass, [place]-en-Y in 2003 , [place] filter placement in 2000, teeth extraction, colonoscopy, EGD, hemorrhoidectomy, panniculectomy, D&C, hystoscopy x 2, LT KNEE replaced 2005- MRSA infection-hardware removed and cemented then replaced again, L hip repair with screw and total R hip REPLACEMENT, bilateral heel spurs removed, bilateral carpal tunnel releases, D&Cs, infusaport insertion since removed. Past Anesthesia/Blood Transfusion Reactions: Blood Transfusion Reaction Additional Past Anesthesia/Blood Transfusion Reaction / Comment(s): Patient thinks she possibly had elevated temperatures r/t blood transfusion. Past Psychological History: Anxiety, Depression Smoking Status: Former smoker - Past Family History Father Family Medical History: Myocardial Infarction ([place]) Additional Family Medical History / Comment(s): AT AGE 46-[place] Mother Family Medical History: Diabetes Mellitus Additional Family Medical History / Comment(s): AT AGE 66 FROM COMPLICATIONS FROM DM Sister(s) Family Medical History: Diabetes Mellitus Brother(s) Family Medical History: Diabetes Mellitus Daughter(s) Family Medical History: Cancer Son(s) Family Medical History: No Reported History General Exam Limitations: no limitations General appearance: alert, in no apparent distress Head exam: Present: atraumatic, normocephalic, normal inspection Eye exam: Present: normal appearance, PERRL, EOMI. Absent: scleral icterus, conjunctival injection, periorbital swelling ENT exam: Present: normal exam, normal oropharynx, mucous membranes moist Neck exam: Present: normal inspection, full ROM. Absent: tenderness, meningismus, lymphadenopathy Respiratory exam: Present: normal lung sounds bilaterally. Absent: respiratory distress, wheezes, rales, rhonchi, stridor Cardiovascular Exam: Present: regular rate, normal rhythm, normal heart sounds. Absent: systolic murmur, diastolic murmur, rubs, gallop, clicks Extremities exam: Present: other (Left lateral tib-fib region there is no open wound with purulent drainage rocks many for sinusitis by 3 cm there is surrounding erythema. There is a small 1 cm open wound over the tibial tuberosity region there is moderate swelling and severe pain with range of motion of left knee is old surgical scar) Neurological exam: Present: alert, oriented X3, CN II-XII intact, reflexes normal. Absent: motor sensory deficit Skin exam: Present: warm, dry, intact, normal color. Absent: rash Course Vital Signs 12/11/17 12/11/17 12/11/17 19:34 21:09 22:23 Temperature 98.3 F 100.6 F H 99.4 F Pulse Rate 66 65 65 Respiratory 16 16 16 Rate Blood Pressure 130/63 130/63 113/56 O2 Sat by Pulse 99 98 96 Oximetry Medical Decision Making - Medical Decision Making 67-year-old female presented unresponsive for increasing left leg swelling and pain. Patient's found to have abscess failed outpatient treatment and cellulitis of her left knee. - Lab Data Result diagrams: 12/11/17 20:05 12/11/17 20:05 Lab Results 12/11/17 12/11/17 12/11/17 Range/Units 20:05 20:05 20:05 WBC 6.6 (3.8-10.6) k/uL RBC 3.04 L (3.80-5.40) m/uL Hgb 7.9 L (11.4-16.0) gm/dL Hct 26.2 L (34.0-46.0) % MCV 86.0 (80.0-100.0) fL MCH 25.8 (25.0-35.0) pg MCHC 30.0 L (31.0-37.0) g/dL RDW 17.4 H (11.5-15.5) % Plt Count 312 (150-450) k/uL Neutrophils % 71 % Lymphocytes % 19 % Monocytes % 5 % Eosinophils % 4 % Basophils % 0 % Neutrophils # 4.7 (1.3-7.7) k/uL Lymphocytes # 1.3 (1.0-4.8) k/uL Monocytes # 0.3 (0-1.0) k/uL Eosinophils # 0.3 (0-0.7) k/uL Basophils # 0.0 (0-0.2) k/uL Hypochromasia Marked Anisocytosis Slight ESR 119 H (0-20) mm/hr Sodium 144 (137-145) mmol/L Potassium 4.5 (3.5-5.1) mmol/L Chloride 111 H (98-107) mmol/L Carbon Dioxide 21 L (22-30) mmol/L Anion Gap 12 mmol/L BUN 23 H (7-17) mg/dL Creatinine 0.80 (0.52-1.04) mg/dL Est GFR (CKD-EPI)AfAm 88 (>60 ml/min/1.73 sqM) Est GFR (CKD-EPI)NonAf 76 (>60 ml/min/1.73 sqM) Glucose 93 (74-99) mg/dL Plasma Lactic Acid Maximus 1.6 (0.7-2.0) mmol/L Calcium 8.5 (8.4-10.2) mg/dL Total Bilirubin 0.2 (0.2-1.3) mg/dL AST 18 (14-36) U/L ALT 26 (9-52) U/L Alkaline Phosphatase 105 (38-126) U/L C-Reactive Protein 54.0 H (<10.0) mg/L Total Protein 6.4 (6.3-8.2) g/dL Albumin 2.5 L (3.5-5.0) g/dL Disposition Clinical Impression: Abscess of left leg, Left leg cellulitis, Failure of outpatient treatment, Knee pain Disposition: ADMITTED IP TO THIS HOSP Condition: Fair Referrals: Carlo Frederick MD [Primary Care Provider] - 1-2 days
[2017-12-11 20:41] LABS: Albumin 2.5 g/dL (3.5-5.0); Calcium 8.5 mg/dL (8.4-10.2); Potassium 4.5 mmol/L (3.5-5.1); Total Bilirubin 0.2 mg/dL (0.2-1.3); Total Protein 6.4 g/dL (6.3-8.2)
--- NOTE | 2017-12-11 21:04 | XR ---
EXAMINATION TYPE: XR knee complete LT DATE OF EXAM: 12/11/2017 COMPARISON: Tibia/fibula 08/19/2016 and knee 04/25/2012 HISTORY: 67-year-old female with left knee pain, multiple nonhealing wounds TECHNIQUE: 3 views FINDINGS: Changed left total knee revision arthroplasty is demonstrated with femoral and tibial stem components . The tips of both stems are excluded from the field of view and not assessed. Approximately 2 mm of periprosthetic lucency posteriorly along the cement bone interface of the tibia l component which is unchanged. There is a 3.7 cm ossific fragment along the lateral aspect of the knee is suspected to represent het erotopic ossification. Interval development of heterotopic ossification along the extensor mechanism is compared to 2011. There is focal scalloped bone seen along the anterior margin of the femoral comp onent on the lateral view, unchanged from 08/19/2016. No periprosthetic fracture seen. IMPRESSION: 1. Unchanged, revision left total knee arthroplasty. The entire stem components of the tibial and fem oral prostheses are not included in the field of view and are not assessed. 2. Similar areas of periprosthetic lucency as compared to 08/19/2016 argues against interval loosening . 3. A 3.7 cm area of heterotopic ossification along the lateral aspect of the knee not clearly seen pr eviously. Additional progressive heterotopic ossification along the extensor mechanism. 4. No periprosthetic fracture seen along the visualized portions.
[2017-12-11 22:27] LABS: Erythrocyte Sedimentation Rate 119 mm/hr (0-20)
[2017-12-11] MEDS ORDERED: RX INFO: IV CONTRAST WAS GIVEN 1 EACH MISC MISCELLANE PRN (22:42)
[2017-12-11] MEDS ORDERED: SODIUM CHLORIDE 0.9% 1,000 ML IV ONE (22:42)
--- NOTE | 2017-12-12 00:05 | CT ---
EXAMINATION TYPE: CT knee LT w con DATE OF EXAM: 12/11/2017 COMPARISON: NONE HISTORY: Lt knee pain, swelling, r/o abcess CT DLP: 644.70 mGycm Automated exposure control for dose reduction was used. CONTRAST: Performed with IV Contrast, patient injected with 100 mL of Isovue 300. FINDINGS: Multiple axial sections were obtained from the mid thigh to the mid tibia with intravenous contrast. There is extensive subcutaneous edema around the thigh. There is metal artifact from the knee prosthe sis. There is subcutaneous edema around the lower leg. The knee prosthesis components appear in raf omic position. There is 6 x 3 cm fluid collection anterior and superior to the patella. This is probably knee joint effusion. There is also a subcutaneous fluid collection in the anterior lower thigh. This measures 8 x 3 cm. There is possible communication with the knee joint effusion. I see no fracture line. I see n o pathologic enhancement. IMPRESSION: PROSTHESIS APPEARS IN ANATOMIC POSITION. KNEE JOINT EFFUSION. SUBCUTANEOUS ANTERIOR FLUID COLLECTION MAY BE COMMUNICATING WITH THE JOINT EFFUSION. ABSCESS IS POSSIBLE. EXTENSIVE SUBCUTANEOUS EDEMA AROUND THE LEG. NO EVIDENCE OF OSTEOMYELITIS.
[2017-12-12] MEDS ORDERED: ONDANSETRON 4 MG/2 ML VIAL IVP PRN (00:14)
[2017-12-12] MEDS ORDERED: LORazepam 2 MG/ML INJ IV PRN (00:14)
[2017-12-12] MEDS ORDERED: NALOXONE 0.4 MG/ML 1 ML VIAL IV PRN (00:14)
[2017-12-12] MEDS ORDERED: ACETAMINOPHEN TAB 325 MG TAB PO PRN (00:16)
[2017-12-12] MEDS: SODIUM CHLORIDE 0.9% 1,000 ML IV SCH ×2 (00:23→16:31)
[2017-12-12] MEDS ORDERED: VANCOMYCIN 1,000 MG VIAL IVPB SCH (00:30)
[2017-12-12 01:58] VITALS: BMI 34.2
[2017-12-12] MEDS: MORPHINE SULFATE 4 MG/ML SYRINGE IV PRN ×4 (02:33→17:41)
[2017-12-12] MEDS ORDERED: VANCOMYCIN 1,500 MG in SODIUM CHLORIDE 0.9% 250 ML IVPB SCH (04:00)
[2017-12-12 07:55] VITALS: RESP 16
[2017-12-12 08:06] LABS: Glucose,Whole Blood 84 mg/dL (75-99)
[2017-12-12] MEDS ORDERED: LISINOPRIL 5 MG TAB PO SCH (09:00)
[2017-12-12 11:26] LABS: Glucose,Whole Blood 80 mg/dL (75-99)
[2017-12-12 12:46] LABS: Hemoglobin A1C 5.4 % (4.0-6.0)
[2017-12-12 14:46] VITALS: BP 162/70; PULSE 71; TEMP 98.1
--- NOTE | 2017-12-12 17:06 | P.CNOR ---
History of Present Illness - [facility] Consult date: 12/12/17 Consult reason: other History of present illness: Patient is a 67-year-old female who was admitted to the hospital on 12/11/2017 with regards to a wound involving the left lower extremity. Patient has a very extensive medical history and past surgical history with regards to left lower extremity. Patient was recently admitted to the hospital on 11/25/2017 with regards to significant edema and left lower extremity cellulitis. She was in the hospital for almost 2 weeks undergoing treatment. A PICC line was placed on 12/08/2017, she's been on vancomycin since and was discharged that day to [facility]. Patient states that over the last day or so a new wound had developed over the anterior aspect of the left knee, there was drainage, redness, pain and swelling. That prompted her to come back to the hospital on 12/11/2017, she was admitted then under internal medicine. We were consulted today with regards to the left knee for possible infection. Patient originally underwent a left total knee arthroplasty by Dr. Nuñez 2007. Patient did rather well in the postoperative period. 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 In August 2011, the original components were extracted and antibiotic spacers were placed, she was placed on IV antibiotics for an extended period of time. After proper course of IV antibiotics, patient underwent a revision left total knee arthroplasty in April 2012. Patient had been evaluated in the outpatient setting by Dr. Nuñez 3 years ago with regards to left knee problems, he had recommended further evaluation and treatment from a specialist i that deals with complicated removal of components involving total joint replacement, at a tertiary care center, this either being [facility] or [facility]. Patient is very poor story and states she doesn't remember following up with any doctor at that time. Patient had then fallen in 2014, she underwent a left intertrochanteric hip fracture by Dr. Nain Worrell [place]. When reviewing the electronic medical chart, patient has a long-standing history of bilateral lower extremity cellulitis, left being the worse. She states that the wounds on the left leg have been present for a long time, she cannot room in exact date. Patient has not ambulated in over 5 years she states, she utilizes a wheelchair. She has chronic muscle wasting noted in the bilateral lower extremities. She has a chronic foot drop on the right side. Review of Systems Constitutional: Reports as per HPI Past Medical History Past Medical History: Atrial Fibrillation, Diabetes Mellitus, Deep Vein Thrombosis (DVT), Fibromyalgia, GI Bleed, Hyperlipidemia, Hypertension, Pneumonia, Renal Disease, Skin Disorder Additional Past Medical History / Comment(s): Chronic blood loss anemia, hypertension, hyperlipidemia, fibromyalgia, chronic stage III renal failure, morbid obesity, DVT left lower leg with a previous IVC filter in place, dermatitis, gastric ulcer with a previous Clinton-en-Y gastric bypass surgery, chronic lower back pain, morbid obesity, previous history of severe sepsis w/ septic shock including septicemia with MRSA, SVT, DM type 2, hemorrhoids, cellulitis of left lower extremity, dysphagia, falls, muscle weakness, pneumonia , sleep apnea, bilateral tinnitus, atrial fibrillation, UTI. Left eye contusion/ left lower leg laceration - surgically repaired, Right heel pressure ulcer - healed, peripheral neuropathy (bilateral hands and feet), migraines, eczema, sinus problems, lower GI bleed. Last Myocardial Infarction Date:: unknown History of Any Multi-Drug Resistant Organisms: MRSA, VRE Year Discovered:: 12/04/17/MRSA; 10/21/2014 VRE MDRO Source:: left leg, sputum-MRSA; Urine-VRE Past Surgical History: Adenoidectomy, Bariatric Surgery, Cholecystectomy, Joint Replacement, Tonsillectomy, Tubal Ligation Additional Past Surgical History / Comment(s): Gastric bypass, Clinton-en-Y in 2003 , [place] filter placement in 2000, teeth extraction, colonoscopy, EGD, hemorrhoidectomy, panniculectomy, D&C, hystoscopy x 2, LT KNEE replaced 2005- MRSA infection-hardware removed and cemented then replaced again, L hip repair with screw and total R hip REPLACEMENT, bilateral heel spurs removed, bilateral carpal tunnel releases, D&Cs, infusaport insertion since removed. Past Anesthesia/Blood Transfusion Reactions: Blood Transfusion Reaction Additional Past Anesthesia/Blood Transfusion Reaction / Comm: Patient thinks she possibly had elevated temperatures r/t blood transfusion. Past Psychological History: Anxiety, Depression Additional Psychological History / Comment(s): Patient is now in extended care. No longer live independently. Does not have any significant family. Was a tobacco smoker stopping several years ago. She has history of smoking 1.5-2 pack per day for 27 years and quit in 1993. She drinks alcohol rarely. 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 No animal exposures. Smoking Status: Former smoker Past Alcohol Use History: None Reported Additional Past Alcohol Use History / Comment(s): She has history of smoking 2 packs per day for 27 years and quit in 1993. She drinks alcohol rarely. 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 Past Drug Use History: Marijuana Additional Drug Use History / Comment(s): . - Past Family History Father Family Medical History: Myocardial Infarction (HI) Additional Family Medical History / Comment(s): AT AGE 46-HI Mother Family Medical History: Diabetes Mellitus Additional Family Medical History / Comment(s): AT AGE 66 FROM COMPLICATIONS FROM DM Sister(s) Family Medical History: Diabetes Mellitus Brother(s) Family Medical History: Diabetes Mellitus Daughter(s) Family Medical History: Cancer Son(s) Family Medical History: No Reported History Medications and Allergies Home Medications Medication Instructions Recorded Confirmed Type Atorvastatin [Lipitor] 40 mg PO HS 08/30/15 12/12/17 History Allopurinol [Zyloprim] 100 mg PO BID@0700,1600 05/21/16 12/12/17 History Cholecalciferol [Vitamin D3] 1,000 unit PO HS 06/29/16 12/12/17 History Ferrous Sulfate [Iron (65 MG 650 mg PO HS 06/29/16 12/12/17 History Elemental)] Polyethylene Glycol 3350 [Miralax] 17 gm PO DAILY PRN 06/29/16 12/12/17 History Bisacodyl [Dulcolax] 10 mg PO DAILY PRN 01/26/17 12/12/17 History Melatonin 3 mg PO HS@2000 03/23/17 12/12/17 History Potassium Chloride ER [K-Dur 20] 20 meq PO HS 03/23/17 12/12/17 History Aspirin 81 mg PO HS 04/20/17 12/12/17 History Escitalopram [Lexapro] 10 mg PO DAILY@0800 04/20/17 12/12/17 History Omeprazole 20 mg PO HS 04/20/17 12/12/17 History metFORMIN HCL [Glucophage] 500 mg PO BID 05/19/17 12/12/17 History Ipratropium-Albuterol Nebulize 3 ml INHALATION RT-Q4H PRN 05/22/17 12/12/17 History [Duoneb 0.5 mg-3 mg/3 ml Soln] Mylanta Suspension 200-200-20 30 ml PO Q4H PRN 05/22/17 12/12/17 History Sennosides [Senokot] 8.6 mg PO HS 05/22/17 12/12/17 History amLODIPine [Norvasc] 5 mg PO DAILY@0700 05/22/17 12/12/17 History Acetaminophen Tab [Tylenol] 650 mg PO Q4H PRN 07/29/17 12/12/17 History ALPRAZolam [Xanax] 0.25 mg PO BID PRN #60 tab 08/10/17 12/12/17 Rx Bisacodyl [Dulcolax] 10 mg RECTAL DAILY PRN 11/25/17 12/12/17 History Lidocaine 2% Gel [Xylocaine Jelly 1 applic TOPICAL Q72H 11/25/17 12/12/17 History 2%] Magnesium Hydroxide [Milk of 2,400 mg PO DAILY PRN 11/25/17 12/12/17 History Magnesia] Phenol [Chloraseptic] 2 spray MUCOUS MEM Q6H PRN 11/25/17 12/12/17 History Lisinopril [Zestril] 5 mg PO DAILY tab 12/08/17 12/12/17 Rx Vancomycin 1,500 mg IVPB Q24H #14 vial 12/08/17 12/12/17 Rx oxyCODONE HCL 20 mg PO Q6HR PRN 30 Days #20 tab 12/08/17 12/12/17 Rx Allergies Allergy/AdvReac Type Severity Reaction Status Date / Time adhesive tape Allergy Severe Rash/Hives Verified 12/12/17 08:35 cephalexin monohydrate Allergy Severe Rash/Hives Verified 12/12/17 08:35 [From Keflex] influenza virus vaccine, Allergy Severe Anaphylaxis Verified 12/12/17 08:35 specific [influenza virus vacc,specific] latex Allergy Severe Rash/Hives Verified 12/12/17 08:35 peanut Allergy Severe Anaphylaxis Verified 12/12/17 08:35 Penicillins Allergy Severe Swelling Verified 12/12/17 08:35 tetanus toxoid, adsorbed Allergy Intermediate Rash/Hives Verified 12/12/17 08:35 Influenza Virus Vaccines Allergy Anaphylaxis Verified 12/12/17 08:35 Physical Examination Left lower extremity: Obvious effusion and soft tissue swelling, erythema and 2 separate wounds are noted over the anterior aspect of the knee, 1 wound noted at the anterior aspect , one noted at the distal. There is serosanguineous drainage noted from both wounds, they're about 1 cm in diameter. There is more erythema noted at the proximal and the incision. There is a bandage present over the left anterior turner, this was unraveled slightly. Extensive soft tissue lesion present, with erythema and friable skin. Range of motion was very difficult to assess, there was extensive pain noted with extension and flexion passively. Her sensory exam to light touch was intact, dorsal pedis pulses 2+ Results - Labs Labs: Abnormal Lab Results - Last 24 Hours (Table) 12/11/17 12/11/17 Range/Units 20:05 20:05 RBC 3.04 L (3.80-5.40) m/uL Hgb 7.9 L (11.4-16.0) gm/dL Hct 26.2 L (34.0-46.0) % MCHC 30.0 L (31.0-37.0) g/dL RDW 17.4 H (11.5-15.5) % ESR 119 H (0-20) mm/hr Chloride 111 H (98-107) mmol/L Carbon Dioxide 21 L (22-30) mmol/L BUN 23 H (7-17) mg/dL C-Reactive Protein 54.0 H (<10.0) mg/L Albumin 2.5 L (3.5-5.0) g/dL Microbiology - Last 24 Hours (Table) 12/11/17 20:05 Gram Stain - Preliminary Knee - Left Wound Culture - Preliminary H & H 12/11/17 Range/Units 20:05 Hgb 7.9 L (11.4-16.0) gm/dL Hct 26.2 L (34.0-46.0) % Result Diagrams: 12/11/17 20:05 12/11/17 20:05 - Diagnostic results Knee x-ray: image reviewed Assessment and Plan Plan: Imagin views of the left knee were reviewed via x-ray. Images demonstrated obvious effusion. Presence of obvious total knee revision components. No obvious fractures visible. 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 aPiz was available today to examine the patient and review images. Treatment was discussed with the patient today at bedside. Due to the patient being a very poor historian, it was very hard to determine if she ever followed up with a specialist involving extraction of components involving revision total joint replacement, this was recommended by Dr. Nuñez in 2012. Regardless, patient likely has a significant infection involving the left knee and components. With the extensive hardware that is in the left lower extremity , recommend transfer to a tertiary care facility with a specialist who deals with extraction of components and possibility of femoral replacement or other extensive surgery. Patient will likely need vascular consult for possible amputation of the leg if the limb. The case was discussed with a transfer team at [facility]. Patient will be transferred today Time with Patient: Less than 30
[2017-12-12 17:16] LABS: Glucose,Whole Blood 88 mg/dL (75-99)
--- NOTE | 2017-12-12 21:53 | P.HPIM ---
History of Present Illness H&P Date: 12/12/17 Chief Complaint: Left knee pain Patient is a 67-year-old female with a known history of atrial fibrillation, fibromyalgia, diabetes type 2, and history of GI bleed, hypertension hyperlipidemia and multiple other medical problems came to ER with complaints of left lower extremity cellulitis and possible abscess and pain which is nonhealing for the past few weeks. Patient is in and out of the hospital and has been on antibiotics. Patient was recently admitted to the hospital on 11/25 with regards to significant edema and left lower extremity cellulitis. She was in the hospital for almost 2 weeks undergoing treatment. A PICC line was placed on 12/08/2017, she's been on vancomycin since and was discharged that day to [facility]. Patient states that over the last day or so a new wound had developed over the anterior aspect of the left knee, there was drainage, redness, pain and swelling. 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 In August 2011, the original components were extracted and antibiotic spacers were placed, she was placed on IV antibiotics for an extended period of time. After proper course of IV antibiotics, patient underwent a revision left total knee arthroplasty in April 2012. patient has a long-standing history of bilateral lower extremity cellulitis, left being the worse. She states that the wounds on the left leg have been present for a long time. Patient has not ambulated in over 5 years she states, she utilizes a wheelchair. Patient denied any complaints of fever or chills. Currently patient was started on vancomycin IV. CT of the left knee showed prosthesis is in anatomical position. Knee effusion. Subcutaneous anterior fluid collection may be communicating with the joint effusion. Abscess is possible. Extensive subcutaneous edema around the leg. no evidence of osteomyelitis. Review of Systems Constitutional: Patient denies any fever or chills . No generalized weakness or weight loss. Abdomen: Patient denied nausea vomiting and diarrhea and abdominal pain. Cardiovascular: Patient denies any chest pain or short of breath no palpitations. Respiratory: patient denied any cough is from production. No shortness of breath Neurologic: Patient denied any numbness or tingling headache. Musculoskeletal: Left lower activity pain and swelling and knee joint swelling Skin: Negative Psychiatric: Negative Endocrine: No heat or cold intolerance. No recent weight gain. Genitourinary: No dysuria or hematuria. All other 14 point ROS negative except the above Past Medical History Past Medical History: Atrial Fibrillation, Diabetes Mellitus, Deep Vein Thrombosis (DVT), Fibromyalgia, GI Bleed, Hyperlipidemia, Hypertension, Pneumonia, Renal Disease, Skin Disorder Additional Past Medical History / Comment(s): Chronic blood loss anemia, hypertension, hyperlipidemia, fibromyalgia, chronic stage III renal failure, morbid obesity, DVT left lower leg with a previous IVC filter in place, dermatitis, gastric ulcer with a previous Clinton-en-Y gastric bypass surgery, chronic lower back pain, morbid obesity, previous history of severe sepsis w/ septic shock including septicemia with MRSA, SVT, DM type 2, hemorrhoids, cellulitis of left lower extremity, dysphagia, falls, muscle weakness, pneumonia , sleep apnea, bilateral tinnitus, atrial fibrillation, UTI. Left eye contusion/ left lower leg laceration - surgically repaired, Right heel pressure ulcer - healed, peripheral neuropathy (bilateral hands and feet), migraines, eczema, sinus problems, lower GI bleed. Last Myocardial Infarction Date:: unknown History of Any Multi-Drug Resistant Organisms: MRSA, VRE Date of last positivie culture/infection: 12/04/17/MRSA; 10/21/2014 VRE MDRO Source:: left leg, sputum-MRSA; Urine-VRE Past Surgical History: Adenoidectomy, Bariatric Surgery, Cholecystectomy, Joint Replacement, Tonsillectomy, Tubal Ligation Additional Past Surgical History / Comment(s): Gastric bypass, Clinton-en-Y in 2003 , Saxton filter placement in 2000, teeth extraction, colonoscopy, EGD, hemorrhoidectomy, panniculectomy, D&C, hystoscopy x 2, LT KNEE replaced 2005- MRSA infection-hardware removed and cemented then replaced again, L hip repair with screw and total R hip REPLACEMENT, bilateral heel spurs removed, bilateral carpal tunnel releases, D&Cs, infusaport insertion since removed. Past Anesthesia/Blood Transfusion Reactions: Blood Transfusion Reaction Additional Past Anesthesia/Blood Transfusion Reaction / Comment(s): Patient thinks she possibly had elevated temperatures r/t blood transfusion. Past Psychological History: Anxiety, Depression Additional Psychological History / Comment(s): Patient is now in extended care. No longer live independently. Does not have any significant family. Was a tobacco smoker stopping several years ago. She has history of smoking 1.5-2 pack per day for 27 years and quit in 1993. She drinks alcohol rarely. 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 No animal exposures. Smoking Status: Former smoker Past Alcohol Use History: None Reported Additional Past Alcohol Use History / Comment(s): She has history of smoking 2 packs per day for 27 years and quit in 1993. She drinks alcohol rarely. 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 Past Drug Use History: Marijuana Additional Drug Use History / Comment(s): . - Past Family History Father Family Medical History: Myocardial Infarction ([place]) Additional Family Medical History / Comment(s): AT AGE 46-[place] Mother Family Medical History: Diabetes Mellitus Additional Family Medical History / Comment(s): AT AGE 66 FROM COMPLICATIONS FROM DM Sister(s) Family Medical History: Diabetes Mellitus Brother(s) Family Medical History: Diabetes Mellitus Daughter(s) Family Medical History: Cancer Son(s) Family Medical History: No Reported History Medications and Allergies Home Medications Medication Instructions Recorded Confirmed Type Atorvastatin [Lipitor] 40 mg PO HS 08/30/15 12/12/17 History Allopurinol [Zyloprim] 100 mg PO BID@0700,1600 05/21/16 12/12/17 History Cholecalciferol [Vitamin D3] 1,000 unit PO HS 06/29/16 12/12/17 History Ferrous Sulfate [Iron (65 MG 650 mg PO HS 06/29/16 12/12/17 History Elemental)] Polyethylene Glycol 3350 [Miralax] 17 gm PO DAILY PRN 06/29/16 12/12/17 History Bisacodyl [Dulcolax] 10 mg PO DAILY PRN 01/26/17 12/12/17 History Melatonin 3 mg PO HS@2000 03/23/17 12/12/17 History Potassium Chloride ER [K-Dur 20] 20 meq PO HS 03/23/17 12/12/17 History Aspirin 81 mg PO HS 04/20/17 12/12/17 History Escitalopram [Lexapro] 10 mg PO DAILY@0800 04/20/17 12/12/17 History Omeprazole 20 mg PO HS 04/20/17 12/12/17 History metFORMIN HCL [Glucophage] 500 mg PO BID 05/19/17 12/12/17 History Ipratropium-Albuterol Nebulize 3 ml INHALATION RT-Q4H PRN 05/22/17 12/12/17 History [Duoneb 0.5 mg-3 mg/3 ml Soln] Mylanta Suspension 200-200-20 30 ml PO Q4H PRN 05/22/17 12/12/17 History Sennosides [Senokot] 8.6 mg PO HS 05/22/17 12/12/17 History amLODIPine [Norvasc] 5 mg PO DAILY@0700 05/22/17 12/12/17 History Acetaminophen Tab [Tylenol] 650 mg PO Q4H PRN 07/29/17 12/12/17 History ALPRAZolam [Xanax] 0.25 mg PO BID PRN #60 tab 08/10/17 12/12/17 Rx Bisacodyl [Dulcolax] 10 mg RECTAL DAILY PRN 11/25/17 12/12/17 History Lidocaine 2% Gel [Xylocaine Jelly 1 applic TOPICAL Q72H 11/25/17 12/12/17 History 2%] Magnesium Hydroxide [Milk of 2,400 mg PO DAILY PRN 11/25/17 12/12/17 History Magnesia] Phenol [Chloraseptic] 2 spray MUCOUS MEM Q6H PRN 11/25/17 12/12/17 History Lisinopril [Zestril] 5 mg PO DAILY tab 12/08/17 12/12/17 Rx Vancomycin 1,500 mg IVPB Q24H #14 vial 12/08/17 12/12/17 Rx oxyCODONE HCL 20 mg PO Q6HR PRN 30 Days #20 tab 12/08/17 12/12/17 Rx Allergies Allergy/AdvReac Type Severity Reaction Status Date / Time adhesive tape Allergy Severe Rash/Hives Verified 12/12/17 08:35 cephalexin monohydrate Allergy Severe Rash/Hives Verified 12/12/17 08:35 [From Keflex] influenza virus vaccine, Allergy Severe Anaphylaxis Verified 12/12/17 08:35 specific [influenza virus vacc,specific] latex Allergy Severe Rash/Hives Verified 12/12/17 08:35 peanut Allergy Severe Anaphylaxis Verified 12/12/17 08:35 Penicillins Allergy Severe Swelling Verified 12/12/17 08:35 tetanus toxoid, adsorbed Allergy Intermediate Rash/Hives Verified 12/12/17 08:35 Influenza Virus Vaccines Allergy Anaphylaxis Verified 12/12/17 08:35 Physical Exam Vitals: Vital Signs Temp Pulse Pulse Resp BP BP Pulse Ox 12/12/17 07:15 98.5 F 68 16 135/65 97 12/12/17 01:40 98.4 F 69 17 139/65 100 12/12/17 00:14 98.1 F 74 16 130/63 98 12/11/17 22:23 99.4 F 65 16 113/56 96 12/11/17 21:09 100.6 F H 65 16 130/63 98 12/11/17 19:34 98.3 F 66 16 130/63 99 Intake and Output 12/11/17 12/12/17 12/12/17 22:59 06:59 14:59 Intake Total 0 600 Balance 0 600 Intake: Intake, IV Titration 600 Amount Sodium Chloride 0.9% 1, 600 000 ml @ 75 mls/hr IV . [id number] [facility] Rx#:[id number] Oral 0 Other: Voiding Method Diaper Diaper Incontinent Incontinent # Voids 3 2 Weight 84.822 kg 84.822 kg PHYSICAL EXAMINATION: Patient is lying in the bed comfortably, no acute distress, awake alert and oriented.. HEENT: Normocephalic. Neck is supple. Pupils reactive. Nostrils clear. Oral cavity is moist. Ears reveal no drainage. Neck reveals no JVD, carotid bruits, or thyromegaly. CHEST EXAMINATION: Trachea is central. Symmetrical expansion. Lung davenport clear to auscultation and percussion. CARDIAC: Normal S1, S2 with no gallops. No murmurs ABDOMEN: Soft. Bowel sounds normal. No organomegaly. No abdominal bruits. Extremities: Left lower extremity edema. No clubbing or cyanosis Neurologically awake, alert, oriented x3 with well-coordinated movements. No focal deficits noted Skin: No rash or skin lesions. Psychiatric: Coperative. Nonsuicidal Musculoskeletal: Left knee swollen and there is fluid fluctuation above the left knee and joint effusion. Redness warm and decreased range of motion of the left knee. Results CBC & Chem 7: 12/11/17 20:05 12/11/17 20:05 Labs: Abnormal Lab Results - Last 24 Hours (Table) 12/11/17 12/11/17 Range/Units 20:05 20:05 RBC 3.04 L (3.80-5.40) m/uL Hgb 7.9 L (11.4-16.0) gm/dL Hct 26.2 L (34.0-46.0) % MCHC 30.0 L (31.0-37.0) g/dL RDW 17.4 H (11.5-15.5) % ESR 119 H (0-20) mm/hr Chloride 111 H (98-107) mmol/L Carbon Dioxide 21 L (22-30) mmol/L BUN 23 H (7-17) mg/dL C-Reactive Protein 54.0 H (<10.0) mg/L Albumin 2.5 L (3.5-5.0) g/dL Microbiology - Last 24 Hours (Table) 12/11/17 20:05 Gram Stain - Preliminary Knee - Left Wound Culture - Preliminary Thrombosis Risk Factor Assmnt - DVT/VTE Prophylaxis DVT/VTE Prophylaxis: Pharmacologic Prophylaxis ordered - Choose All That Apply Each Factor Represents 1 point: Medical pt on bed rest, Obesity (BMI >25), Swollen legs (current) Each Risk Factor Represents 2 Points: Age 61-74 years, Patient confined to bed Other congenital or acquired thrombophilia - If yes, enter type in comment: No Thrombosis Risk Factor Assessment Total Risk Factor Score: 7 Thrombosis Risk Factor Assessment Level: High Risk Assessment and Plan Assessment: Abscess anterior to the left knee with possible joint infection and cellulitis with extensive lower activity swelling and redness Possible left knee periprosthetic joint infection Chronic left lower exudate cellulitis Paroxysmal atrial fibrillation not on anticoagulation due to GI bleed and chronic blood loss anemia Hypertension Hyperlipidemia Fibromyalgia CK D stage III Obesity with BMI 34.2 History of left lower extremity DVT and IVC filter in place SVT history Type 2 diabetes type mellitus Previous about 7 white gastric bypass surgery Chronic back pain Bilateral diabetic peripheral neuropathy Migraine headaches history History of multiple arthroplasty and hardware infection Anxiety and depression History of gout Medical debility currently wheelchair-bound Previous history of smoking DVT prophylaxis Plan: Patient will be continued on antibiotics in the form of vancomycin and pain management. Current with home medications. Patient was seen by orthopedic surgery. patient likely has a significant infection involving the left knee and components. With the extensive hardware that is in the left lower extremity , recommends transfer to a tertiary care facility with a specialist who deals with extraction of components and possibility of femoral replacement or other extensive surgery. Patient will likely need vascular consult for possible amputation of the leg if the limb. Time with Patient: Greater than 30
--- NOTE | 2017-12-12 21:55 | P.DS ---
Providers Date of admission: 12/12/17 00:36 Expected date of discharge: 12/12/17 Attending physician: Haritha Lara Consults: 12/12/17 12:02 Consult Physician Routine Consulting Provider: Surinder Nuñez Consult Reason/Comments: left knee abscess/cellulitis Do you want consulting provider notified?: Already Contacted Primary care physician: Carlo [facility] Course: Discharge diagnosis Abscess anterior to the left knee with possible joint infection and cellulitis with extensive lower activity swelling and redness. With wound cultures showed presumptive MRSA Possible left knee periprosthetic joint infection Chronic left lower exudate cellulitis Paroxysmal atrial fibrillation not on anticoagulation due to GI bleed and chronic blood loss anemia Hypertension Hyperlipidemia Fibromyalgia CK D stage III Obesity with BMI 34.2 History of left lower extremity DVT and IVC filter in place SVT history Type 2 diabetes type mellitus Previous about 7 white gastric bypass surgery Chronic back pain Bilateral diabetic peripheral neuropathy Migraine headaches history History of multiple arthroplasty and hardware infection Anxiety and depression History of gout Medical debility currently wheelchair-bound Previous history of smoking DVT prophylaxis Hospital course Patient is a 67-year-old female with a known history of atrial fibrillation, fibromyalgia, diabetes type 2, and history of GI bleed, hypertension hyperlipidemia and multiple other medical problems came to ER with complaints of left lower extremity cellulitis and possible abscess and pain which is nonhealing for the past few weeks. Patient is in and out of the hospital and has been on antibiotics. Patient was recently admitted to the hospital on 11/25 with regards to significant edema and left lower extremity cellulitis. She was in the hospital for almost 2 weeks undergoing treatment. A PICC line was placed on 12/08/2017, she's been on vancomycin since and was discharged that day to [facility]. Patient states that over the last day or so a new wound had developed over the anterior aspect of the left knee, there was drainage, redness, pain and swelling. 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 In August 2011, the original components were extracted and antibiotic spacers were placed, she was placed on IV antibiotics for an extended period of time. After proper course of IV antibiotics, patient underwent a revision left total knee arthroplasty in April 2012. patient has a long-standing history of bilateral lower extremity cellulitis, left being the worse. She states that the wounds on the left leg have been present for a long time. Patient has not ambulated in over 5 years she states, she utilizes a wheelchair. Patient denied any complaints of fever or chills. Currently patient was started on vancomycin IV. CT of the left knee showed prosthesis is in anatomical position. Knee effusion. Subcutaneous anterior fluid collection may be communicating with the joint effusion. Abscess is possible. Extensive subcutaneous edema around the leg. no evidence of osteomyelitis. Patient was continued on antibiotics in the form of vancomycin and pain management. Current with home medications. Patient was seen by orthopedic surgery. patient likely has a significant infection involving the left knee and components. With the extensive hardware that is in the left lower extremity , recommends transfer to a tertiary care facility with a specialist who deals with extraction of components and possibility of femoral replacement or other extensive surgery. Patient will likely need vascular consult for possible amputation of the leg if the limb. Patient was transferred to [facility] for further management. Discharge physical examination was done and vitals reviewed. Patient Condition at Discharge: Fair Plan - Discharge Summary Discharge Rx Participant: No New Discharge Prescriptions: No Action Atorvastatin [Lipitor] 40 mg PO HS Allopurinol [Zyloprim] 100 mg PO BID@0700,1600 Cholecalciferol [Vitamin D3] 1,000 unit PO HS Ferrous Sulfate [Iron (65 MG Elemental)] 650 mg PO HS Polyethylene Glycol 3350 [Miralax] 17 gm PO DAILY PRN PRN Reason: Constipation Bisacodyl [Dulcolax] 10 mg PO DAILY PRN PRN Reason: Constipation Potassium Chloride ER [K-Dur 20] 20 meq PO HS Melatonin 3 mg PO HS@2000 Omeprazole 20 mg PO HS Escitalopram [Lexapro] 10 mg PO DAILY@0800 Aspirin 81 mg PO HS metFORMIN HCL [Glucophage] 500 mg PO BID Ipratropium-Albuterol Nebulize [Duoneb 0.5 mg-3 mg/3 ml Soln] 3 ml INHALATION RT-Q4H PRN PRN Reason: Shortness Of Breath Sennosides [Senokot] 8.6 mg PO HS amLODIPine [Norvasc] 5 mg PO DAILY@0700 Mylanta Suspension 200-200-20 30 ml PO Q4H PRN PRN Reason: Indigestion Acetaminophen Tab [Tylenol] 650 mg PO Q4H PRN PRN Reason: Fever And/ Or Pain ALPRAZolam [Xanax] 0.25 mg PO BID PRN #60 tab PRN Reason: Anxiety Phenol [Chloraseptic] 2 spray MUCOUS MEM Q6H PRN PRN Reason: Sore Throat Bisacodyl [Dulcolax] 10 mg RECTAL DAILY PRN PRN Reason: Constipation Lidocaine 2% Gel [Xylocaine Jelly 2%] 1 applic TOPICAL Q72H Magnesium Hydroxide [Milk of Magnesia] 2,400 mg PO DAILY PRN PRN Reason: Constipation Vancomycin 1,500 mg IVPB Q24H #14 vial Lisinopril [Zestril] 5 mg PO DAILY tab oxyCODONE HCL 20 mg PO Q6HR PRN 30 Days #20 tab PRN Reason: Pain Discharge Medication List Atorvastatin [Lipitor] 40 mg PO HS 08/30/15 [History] Allopurinol [Zyloprim] 100 mg PO BID@0700,1600 05/21/16 [History] Cholecalciferol [Vitamin D3] 1,000 unit PO HS 06/29/16 [History] Ferrous Sulfate [Iron (65 MG Elemental)] 650 mg PO HS 06/29/16 [History] Polyethylene Glycol 3350 [Miralax] 17 gm PO DAILY PRN 06/29/16 [History] Bisacodyl [Dulcolax] 10 mg PO DAILY PRN 01/26/17 [History] Melatonin 3 mg PO HS@2000 03/23/17 [History] Potassium Chloride ER [K-Dur 20] 20 meq PO HS 03/23/17 [History] Aspirin 81 mg PO HS 04/20/17 [History] Escitalopram [Lexapro] 10 mg PO DAILY@0800 04/20/17 [History] Omeprazole 20 mg PO HS 04/20/17 [History] metFORMIN HCL [Glucophage] 500 mg PO BID 05/19/17 [History] Ipratropium-Albuterol Nebulize [Duoneb 0.5 mg-3 mg/3 ml Soln] 3 ml INHALATION RT -Q4H PRN 05/22/17 [History] Mylanta Suspension 200-200-20 30 ml PO Q4H PRN 05/22/17 [History] Sennosides [Senokot] 8.6 mg PO HS 05/22/17 [History] amLODIPine [Norvasc] 5 mg PO DAILY@0700 05/22/17 [History] Acetaminophen Tab [Tylenol] 650 mg PO Q4H PRN 07/29/17 [History] ALPRAZolam [Xanax] 0.25 mg PO BID PRN #60 tab 08/10/17 [Rx] Bisacodyl [Dulcolax] 10 mg RECTAL DAILY PRN 11/25/17 [History] Lidocaine 2% Gel [Xylocaine Jelly 2%] 1 applic TOPICAL Q72H 11/25/17 [History] Magnesium Hydroxide [Milk of Magnesia] 2,400 mg PO DAILY PRN 11/25/17 [History] Phenol [Chloraseptic] 2 spray MUCOUS MEM Q6H PRN 11/25/17 [History] Lisinopril [Zestril] 5 mg PO DAILY tab 12/08/17 [Rx] Vancomycin 1,500 mg IVPB Q24H #14 vial 12/08/17 [Rx] oxyCODONE HCL 20 mg PO Q6HR PRN 30 Days #20 tab 12/08/17 [Rx] Follow up Appointment(s)/Referral(s): Carlo Frederick MD [Primary Care Provider] - 1-2 days Discharge Disposition: OTHER INSTITUTION NOT DEFINED
== END 2017-12-12 19:50 | disposition short-term general hospital (02) | DRG 560 ==
LOC: EC 19:33 → 5MS5E 12-12 00:36
PROVIDERS: ADMIT Hospitalist; ATTEND Hospitalist
DX: T84.54XA Infection and inflammatory reaction due to internal left knee prosthesis, initial encounter (principal); L03.116 Cellulitis of left lower limb; E11.22 Type 2 diabetes mellitus with diabetic chronic kidney disease; E11.42 Type 2 diabetes mellitus with diabetic polyneuropathy; I48.0 Paroxysmal atrial fibrillation; E66.01 Morbid (severe) obesity due to excess calories; R13.10 Dysphagia, unspecified; B95.62 Methicillin resistant Staphylococcus aureus infection as the cause of diseases classified elsewhere; G43.909 Migraine, unspecified, not intractable, without status migrainosus; N18.3 Chronic kidney disease, stage 3 (moderate); D50.0 Iron deficiency anemia secondary to blood loss (chronic); E78.5 Hyperlipidemia, unspecified; M79.7 Fibromyalgia; I12.9 Hypertensive chronic kidney disease with stage 1 through stage 4 chronic kidney disease, or unspecified chronic kidney disease; Z68.34 Body mass index [BMI] 34.0-34.9, adult; G89.29 Other chronic pain; M54.5 Low back pain; F32.9 Major depressive disorder, single episode, unspecified; M21.371 Foot drop, right foot; G47.30 Sleep apnea, unspecified; F41.9 Anxiety disorder, unspecified; M62.50 Muscle wasting and atrophy, not elsewhere classified, unspecified site; H93.13 Tinnitus, bilateral; K64.9 Unspecified hemorrhoids; L30.9 Dermatitis, unspecified; M10.9 Gout, unspecified; Z79.2 Long term (current) use of antibiotics; Z79.82 Long term (current) use of aspirin; Z79.84 Long term (current) use of oral hypoglycemic drugs; Z79.899 Other long term (current) drug therapy; Z87.440 Personal history of urinary (tract) infections; Z86.718 Personal history of other venous thrombosis and embolism; Z95.828 Presence of other vascular implants and grafts; Z98.84 Bariatric surgery status; Z99.3 Dependence on wheelchair; Z96.641 Presence of right artificial hip joint; Z86.79 Personal history of other diseases of the circulatory system; Z87.11 Personal history of peptic ulcer disease; Z87.01 Personal history of pneumonia (recurrent); Z87.448 Personal history of other diseases of urinary system; Z86.19 Personal history of other infectious and parasitic diseases; Z87.891 Personal history of nicotine dependence; Z88.1 Allergy status to other antibiotic agents; Z91.040 Latex allergy status; Z91.010 Allergy to peanuts; Z88.0 Allergy status to penicillin; Z88.7 Allergy status to serum and vaccine; Z91.048 Other nonmedicinal substance allergy status; Y83.1 Surgical operation with implant of artificial internal device as the cause of abnormal reaction of the patient, or of later complication, without mention of misadventure at the time of the procedure; Z82.49 Family history of ischemic heart disease and other diseases of the circulatory system; Z83.3 Family history of diabetes mellitus; Z80.9 Family history of malignant neoplasm, unspecified
CPT/HCPCS: 36415; 80053; 83036; 83605; 85025; 85652; 86140; 87040; 87070; 87077; 87186; 87205; 96361; 96374; 96375; 96376; 99285

== ENCOUNTER 2018-02-10 18:24 | Inpatient (IN) | payer MEDICARE, OTHER ==
--- NOTE | 2018-02-10 18:54 | ED ---
Altered Mental Status HPI - General Chief Complaint: Altered Mental Status Stated Complaint: Altered Mental Status Time Seen by Provider: 02/10/18 18:41 Source: EMS, RN notes reviewed Mode of arrival: EMS Limitations: altered mental status - History of Present Illness Initial Comments: This a 67-year-old female presents via EMS from [facility] for altered mental status. Patient does have underlying dementia and normally is awake alert and orientated times to though she is only arousable to sternal at this time. They state that she had no episode that she seemed to be unresponsive and her pulse ox dropped down to 70. EMS did arrive and had a pulse ox of 95. Patient is currently be treated for left lower extremity chronic wound. The states that she is not febrile. Patient cannot provide any information in history is limited. They deny any falls. - Related Data Home Medications Medication Instructions Recorded Confirmed Atorvastatin [Lipitor] 40 mg PO HS 08/30/15 01/05/18 Ferrous Sulfate [Iron (65 MG 650 mg PO HS 06/29/16 01/05/18 Elemental)] Polyethylene Glycol 3350 [Miralax] 17 gm PO DAILY PRN 06/29/16 01/05/18 Bisacodyl [Dulcolax] 10 mg PO DAILY PRN 01/26/17 01/05/18 Potassium Chloride ER [K-Dur 20] 20 meq PO HS 03/23/17 01/05/18 Aspirin 81 mg PO HS 04/20/17 01/05/18 Ipratropium-Albuterol Nebulize 3 ml INHALATION RT-Q4H PRN 05/22/17 01/05/18 [Duoneb 0.5 mg-3 mg/3 ml Soln] Sennosides [Senokot] 8.6 mg PO HS 05/22/17 01/05/18 amLODIPine [Norvasc] 5 mg PO DAILY@0700 05/22/17 01/05/18 Acetaminophen Tab [Tylenol] 650 mg PO Q4H PRN 07/29/17 01/05/18 Bisacodyl [Dulcolax] 10 mg RECTAL DAILY PRN 11/25/17 01/05/18 Magnesium Hydroxide [Milk of 400 mg PO HS PRN 11/25/17 01/05/18 Magnesia] Biotin 300 mcg PO HS 01/05/18 01/05/18 Calcium Carbonate/Vitamin D3 1 each PO HS 01/05/18 01/05/18 [Calcium 500-Vit D3 200 Tablet] DAPTOmycin [Cubicin] 500 mg IV DAILY 01/05/18 01/05/18 DULoxetine HCL [Cymbalta] 30 mg PO DAILY 01/05/18 01/05/18 Enoxaparin [Lovenox] 30 mg SQ Q12H 01/05/18 01/05/18 HYDROmorphone HCL 2 mg PO Q4H PRN 01/05/18 01/05/18 INSULIN LISPRO (humaLOG) [humaLOG] 0 units SQ ACHS 01/05/18 01/05/18 Methocarbamol [Robaxin] 1,000 mg PO QID 01/05/18 01/05/18 Morphine Sulfate ER [Ms Contin] 15 mg PO Q12HR 01/05/18 01/05/18 Multivitamins, Thera [Multivitamin 1 tab PO DAILY 01/05/18 01/05/18 (formulary)] Oxybutynin Chloride [Oxybutynin 10 mg PO DAILY 01/05/18 01/05/18 Chloride ER] Pregabalin [Lyrica] 75 mg PO TID 01/05/18 01/05/18 Rifampin [Rifadin] 300 mg PO BID 01/05/18 01/05/18 rOPINIRole HCL [Requip] 0.5 mg PO HS 01/05/18 01/05/18 Allergies Allergy/AdvReac Type Severity Reaction Status Date / Time adhesive tape Allergy Severe Rash/Hives Verified 01/05/18 08:28 cephalexin monohydrate Allergy Severe Rash/Hives Verified 01/05/18 08:28 [From Keflex] influenza virus vaccine, Allergy Severe Anaphylaxis Verified 01/05/18 08:28 specific [influenza virus vacc,specific] latex Allergy Severe Rash/Hives Verified 01/05/18 08:28 peanut Allergy Severe Anaphylaxis Verified 01/05/18 08:28 Penicillins Allergy Severe Swelling Verified 01/05/18 08:28 tetanus toxoid, adsorbed Allergy Intermediate Rash/Hives Verified 01/05/18 08:28 Influenza Virus Vaccines Allergy Anaphylaxis Verified 01/05/18 08:28 Review of Systems ROS Statement: Those systems with pertinent positive or pertinent negative responses have been documented in the HPI. ROS Other: All systems not noted in ROS Statement are negative. Past Medical History Past Medical History: Atrial Fibrillation, Diabetes Mellitus, Deep Vein Thrombosis (DVT), Fibromyalgia, GI Bleed, Hyperlipidemia, Hypertension, Pneumonia, Renal Disease, Skin Disorder Additional Past Medical History / Comment(s): Chronic blood loss anemia, hypertension, hyperlipidemia, fibromyalgia, chronic stage III renal failure, morbid obesity, DVT left lower leg with a previous IVC filter in place, dermatitis, gastric ulcer with a previous Clinton-en-Y gastric bypass surgery, chronic lower back pain, morbid obesity, previous history of severe sepsis w/ septic shock including septicemia with MRSA, SVT, DM type 2, hemorrhoids, cellulitis of left lower extremity, dysphagia, falls, muscle weakness, pneumonia , sleep apnea, bilateral tinnitus, atrial fibrillation, UTI. Left eye contusion/ left lower leg laceration - surgically repaired, Right heel pressure ulcer - healed, peripheral neuropathy (bilateral hands and feet), migraines, eczema, sinus problems, lower GI bleed. 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, sputum-MRSA; Urine-VRE Past Surgical History: Adenoidectomy, Bariatric Surgery, Cholecystectomy, Joint Replacement, Tonsillectomy, Tubal Ligation Additional Past Surgical History / Comment(s): Gastric bypass, [place]-en-Y in 2003 , [place] filter placement in 2000, teeth extraction, colonoscopy, EGD, hemorrhoidectomy, panniculectomy, D&C, hystoscopy x 2, LT KNEE replaced 2005- MRSA infection-hardware removed and cemented then replaced again, L hip repair with screw and total R hip REPLACEMENT, bilateral heel spurs removed, bilateral carpal tunnel releases, D&Cs, infusaport insertion since removed. Past Anesthesia/Blood Transfusion Reactions: Blood Transfusion Reaction Additional Past Anesthesia/Blood Transfusion Reaction / Comment(s): Patient thinks she possibly had elevated temperatures r/t blood transfusion. Past Psychological History: Anxiety, Depression Smoking Status: Former smoker - Past Family History Father Family Medical History: Myocardial Infarction (MT) Additional Family Medical History / Comment(s): AT AGE 46-MT Mother Family Medical History: Diabetes Mellitus Additional Family Medical History / Comment(s): AT AGE 66 FROM COMPLICATIONS FROM DM Sister(s) Family Medical History: Diabetes Mellitus Brother(s) Family Medical History: Diabetes Mellitus Daughter(s) Family Medical History: Cancer Son(s) Family Medical History: No Reported History General Exam Limitations: altered mental status Head exam: Present: atraumatic, normocephalic, normal inspection Eye exam: Present: normal appearance, PERRL, EOMI. Absent: scleral icterus, conjunctival injection, periorbital swelling Neck exam: Present: normal inspection, full ROM. Absent: tenderness, meningismus, lymphadenopathy Respiratory exam: Present: normal lung sounds bilaterally. Absent: respiratory distress, wheezes, rales, rhonchi, stridor Cardiovascular Exam: Present: regular rate, normal rhythm, normal heart sounds. Absent: systolic murmur, diastolic murmur, rubs, gallop, clicks GI/Abdominal exam: Present: soft, normal bowel sounds. Absent: distended, tenderness, guarding, rebound, rigid Neurological exam: Present: altered. Absent: oriented X3 Skin exam: Present: warm, dry, intact, normal color. Absent: rash Course Vital Signs 02/10/18 02/10/18 18:37 21:43 Temperature 97 F L 98.3 F Pulse Rate 69 70 Respiratory 20 16 Rate Blood Pressure 154/72 144/89 O2 Sat by Pulse 100 100 Oximetry Medical Decision Making - Medical Decision Making 59-year-old female presented to emergency from for altered mental status. Patient reportedly had a decent at the [facility] though she is and satting 97 200 with no dyspnea no supplemental oxygenation it's time. Patient had lab work, CT of the brain chest x-ray. She is found to have urinary tract infection. This is concerning for UTI sepsis as she is altered from her normal baseline. - Lab Data Result diagrams: 02/10/18 21:40 02/10/18 20:49 Lab Results 02/10/18 02/10/18 02/10/18 Range/Units 20:32 20:49 20:49 WBC (3.8-10.6) k/uL RBC (3.80-5.40) m/uL Hgb (11.4-16.0) gm/dL Hct (34.0-46.0) % MCV (80.0-100.0) fL MCH (25.0-35.0) pg MCHC (31.0-37.0) g/dL RDW (11.5-15.5) % Plt Count (150-450) k/uL Neutrophils % % Lymphocytes % % Monocytes % % Eosinophils % % Basophils % % Neutrophils # (1.3-7.7) k/uL Lymphocytes # (1.0-4.8) k/uL Monocytes # (0-1.0) k/uL Eosinophils # (0-0.7) k/uL Basophils # (0-0.2) k/uL Hypochromasia Anisocytosis Macrocytosis VBG pH (7.31-7.41) VBG pCO2 (37-51) mmHg VBG HCO3 (24-28) mmol/L Sodium 143 (137-145) mmol/L Potassium 4.7 (3.5-5.1) mmol/L Chloride 117 H (98-107) mmol/L Carbon Dioxide 19 L (22-30) mmol/L Anion Gap 7 mmol/L BUN 44 H (7-17) mg/dL Creatinine 0.70 (0.52-1.04) mg/dL Est GFR (CKD-EPI)AfAm >90 (>60 ml/min/1.73 sqM) Est GFR (CKD-EPI)NonAf 89 (>60 ml/min/1.73 sqM) Glucose 114 H (74-99) mg/dL Plasma Lactic Acid Maximus (0.7-2.0) mmol/L Calcium 9.2 (8.4-10.2) mg/dL Total Bilirubin 0.2 (0.2-1.3) mg/dL AST 28 (14-36) U/L ALT 33 (9-52) U/L Alkaline Phosphatase 139 H (38-126) U/L Ammonia (<30) umol/L Total Creatine Kinase 27 L (30-135) U/L CK-MB (CK-2) 1.4 (0.0-2.4) ng/mL CK-MB (CK-2) Rel Index 5.2 Troponin I <0.012 (0.000-0.034) ng/mL Total Protein 7.5 (6.3-8.2) g/dL Albumin 3.2 L (3.5-5.0) g/dL Urine Color Yellow Urine Appearance Turbid H (Clear) Urine pH 7.5 (5.0-8.0) Ur Specific [place] 1.014 (1.001-1.035) Urine Protein 2+ H (Negative) Urine Glucose (UA) Negative (Negative) Urine Ketones Negative (Negative) Urine Blood Large H (Negative) Urine Nitrite Negative (Negative) Urine Bilirubin Negative (Negative) Urine Urobilinogen <2.0 (<2.0) mg/dL Ur Leukocyte Esterase Large H (Negative) Urine RBC >182 H (0-5) /hpf Urine WBC >182 H (0-5) /hpf Urine WBC Clumps Many H (None) /hpf Urine Bacteria Moderate H (None) /hpf 02/10/18 02/10/18 02/10/18 Range/Units 20:49 20:49 21:40 WBC 5.2 (3.8-10.6) k/uL RBC 3.08 L (3.80-5.40) m/uL Hgb 9.4 L D (11.4-16.0) gm/dL Hct 30.6 L (34.0-46.0) % MCV 99.2 D (80.0-100.0) fL MCH 30.6 (25.0-35.0) pg MCHC 30.8 L (31.0-37.0) g/dL RDW 17.1 H (11.5-15.5) % Plt Count 157 (150-450) k/uL Neutrophils % 57 % Lymphocytes % 28 % Monocytes % 5 % Eosinophils % 7 % Basophils % 1 % Neutrophils # 3.0 (1.3-7.7) k/uL Lymphocytes # 1.5 (1.0-4.8) k/uL Monocytes # 0.3 (0-1.0) k/uL Eosinophils # 0.4 (0-0.7) k/uL Basophils # 0.0 (0-0.2) k/uL Hypochromasia Marked Anisocytosis Slight Macrocytosis Slight VBG pH 7.32 (7.31-7.41) VBG pCO2 37 (37-51) mmHg VBG HCO3 18 L (24-28) mmol/L Sodium (137-145) mmol/L Potassium (3.5-5.1) mmol/L Chloride (98-107) mmol/L Carbon Dioxide (22-30) mmol/L Anion Gap mmol/L BUN (7-17) mg/dL Creatinine (0.52-1.04) mg/dL Est GFR (CKD-EPI)AfAm (>60 ml/min/1.73 sqM) Est GFR (CKD-EPI)NonAf (>60 ml/min/1.73 sqM) Glucose (74-99) mg/dL Plasma Lactic Acid Maximus 1.1 (0.7-2.0) mmol/L Calcium (8.4-10.2) mg/dL Total Bilirubin (0.2-1.3) mg/dL AST (14-36) U/L ALT (9-52) U/L Alkaline Phosphatase (38-126) U/L Ammonia <9 (<30) umol/L Total Creatine Kinase (30-135) U/L CK-MB (CK-2) (0.0-2.4) ng/mL CK-MB (CK-2) Rel Index Troponin I (0.000-0.034) ng/mL Total Protein (6.3-8.2) g/dL Albumin (3.5-5.0) g/dL Urine Color Urine Appearance (Clear) Urine pH (5.0-8.0) Ur Specific [place] (1.001-1.035) Urine Protein (Negative) Urine Glucose (UA) (Negative) Urine Ketones (Negative) Urine Blood (Negative) Urine Nitrite (Negative) Urine Bilirubin (Negative) Urine Urobilinogen (<2.0) mg/dL Ur Leukocyte Esterase (Negative) Urine RBC (0-5) /hpf Urine WBC (0-5) /hpf Urine WBC Clumps (None) /hpf Urine Bacteria (None) /hpf - EKG Data EKG Comments: EKG performed at 19:55 normal sinus rhythm rate 69. Pr 182 QRS 80 QT/QTC 14/447 Disposition Clinical Impression: UTI (urinary tract infection), Altered mental status Disposition: ADMITTED IP TO THIS [facility] Condition: Stable Referrals: Carlo Frederick MD [Primary Care Provider] - 1-2 days
[2018-02-10 20:43] LABS: Appearance,Urine Turbid (Clear); Bacteria,Urine Moderate /hpf; Bilirubin,Urine Negative (Negative); Blood,Urine Large (Negative); Color,Urine Yellow; Glucose,Urine (UA) Negative (Negative); Ketones,Urine Negative (Negative); Leukocyte Esterase,Urine Large (Negative); Nitrite,Urine Negative (Negative); PH, Urine 7.5 (5.0-8.0); Protein,Urine 2+ (Negative); RBC,Urine >182 /hpf (0-5); Specific Gravity,Urine 1.014 (1.001-1.035); Urobilinogen,Urine <2.0 mg/dL (<2.0); WBC,Urine >182 /hpf (0-5)
[2018-02-10] MEDS ORDERED: LEVOFLOXACIN 750MG-D5W PMX 750 MG in DEXTROSE/WATER 1 150ML.BAG IVPB STA (20:44)
[2018-02-10 21:05] LABS: VBG PH 7.32 (7.31-7.41)
[2018-02-10 21:15] LABS: Ammonia <9 umol/L (<30); Lactic Acid, Venous 1.1 mmol/L (0.7-2.0)
[2018-02-10 21:16] LABS: Creatine Kinase 27 U/L (30-135)
[2018-02-10 21:17] LABS: ALT 33 U/L (9-52); AST 28 U/L (14-36); Albumin 3.2 g/dL (3.5-5.0); Alkaline Phosphatase 139 U/L (38-126); Anion Gap 7 mmol/L; Blood Urea Nitrogen 44 mg/dL (7-17); Calcium 9.2 mg/dL (8.4-10.2); Carbon Dioxide 19 mmol/L (22-30); Chloride 117 mmol/L (98-107); Glucose 114 mg/dL (74-99); Potassium 4.7 mmol/L (3.5-5.1); Sodium 143 mmol/L (137-145); Total Bilirubin 0.2 mg/dL (0.2-1.3); Total Protein 7.5 g/dL (6.3-8.2)
[2018-02-10 21:28] LABS: Creatine Kinase MB 1.4 ng/mL (0.0-2.4); Troponin I <0.012 ng/mL (0.000-0.034)
[2018-02-10] MEDS ORDERED: SODIUM CHLORIDE 0.9% 1,000 ML IV ONE (21:29)
[2018-02-10] MEDS ORDERED: SODIUM CHLORIDE 0.9% 500 ML IV ONE (21:29)
[2018-02-10 22:05] LABS: Anisocytosis Slight; Basophils % (A) 1 %; Eosinophils # (A) 0.4 k/uL (0-0.7); Eosinophils % (A) 7 %; HCT 30.6 % (34.0-46.0); Hypochromasia Marked; Lymphocytes # (A) 1.5 k/uL (1.0-4.8); Lymphocytes % (A) 28 %; MCH 30.6 pg (25.0-35.0); MCHC 30.8 g/dL (31.0-37.0); Macrocytosis Slight; Monocytes # (A) 0.3 k/uL (0-1.0); Monocytes % (A) 5 %; Neutrophils % (A) 57 %; Platelet Count 157 k/uL (150-450); RBC 3.08 m/uL (3.80-5.40); RDW 17.1 % (11.5-15.5); WBC 5.2 k/uL (3.8-10.6)
[2018-02-10 22:16] LABS: HGB 9.4 gm/dL (11.4-16.0); MCV 99.2 fL (80.0-100.0)
--- NOTE | 2018-02-10 22:27 | CT ---
EXAMINATION TYPE: CT brain wo con DATE OF EXAM: 02/10/2018 COMPARISON: 02/21/2017 HISTORY: ams CT DLP: 1219 mGycm Automated exposure control for dose reduction was used. FINDINGS: There is cerebral cortical atrophy. There is no mass effect nor midline shift. There is no sign of in tracranial hemorrhage. The calvarium is intact. IMPRESSION: MILD CEREBRAL ATROPHY. NO ACUTE INTRACRANIAL ABNORMALITY. NO CHANGE.
--- NOTE | 2018-02-10 22:36 | XR ---
EXAMINATION TYPE: XR chest 1V portable DATE OF EXAM: 02/10/2018 COMPARISON: 11/25/2017 HISTORY: Altered mental status TECHNIQUE: Single frontal view of the chest is obtained. FINDINGS: Heart is enlarged. There is no gross heart failure. There is coarsening of interstitial ma rkings. Thoracic aorta is atheromatous. There are chest leads. IMPRESSION: Cardiomegaly. Coarse lung markings are increased slightly at the right lung base compare d to old exam. No heart failure seen.
[2018-02-10] MEDS ORDERED: NALOXONE 0.4 MG/ML 1 ML VIAL IV PRN (22:59)
[2018-02-10] MEDS ORDERED: ONDANSETRON 4 MG/2 ML VIAL IVP PRN (22:59)
[2018-02-11 12:02] LABS: Glucose,Whole Blood 126 mg/dL (75-99)
[2018-02-11] MEDS ORDERED: POLYETHYLENE GLYCOL 3350 17 GM POWD.PACK PO PRN (12:13)
--- NOTE | 2018-02-11 12:19 | P.HPIM ---
History of Present Illness H&P Date: 02/11/18 Chief Complaint: Altered mental status 67-year-old female presents via EMS from [facility] for altered mental status. Patient does have underlying dementia and normally is awake alert and orientated times to though she is only arousable to sternal at this time. They state that she had no episode that she seemed to be unresponsive and her pulse ox dropped down to 70. EMS did arrive and had a pulse ox of 95. Patient is currently be treated for left lower extremity chronic wound. The states that she is not febrile. Patient cannot provide any information in history is limited. They deny any falls. Review of Systems ROS unobtainable: due to mental status (Patient is admitted with altered mental status and has underlying dementia so review of system is not done and most of the records are obtained from the chart) Past Medical History Past Medical History: Atrial Fibrillation, Diabetes Mellitus, Deep Vein Thrombosis (DVT), Fibromyalgia, GI Bleed, Hyperlipidemia, Hypertension, Pneumonia, Renal Disease, Skin Disorder Additional Past Medical History / Comment(s): Chronic blood loss anemia, hypertension, hyperlipidemia, fibromyalgia, chronic stage III renal failure, morbid obesity, DVT left lower leg with a previous IVC filter in place, dermatitis, gastric ulcer with a previous Clinton-en-Y gastric bypass surgery, chronic lower back pain, morbid obesity, previous history of severe sepsis w/ septic shock including septicemia with MRSA, SVT, DM type 2, hemorrhoids, cellulitis of left lower extremity, dysphagia, falls, muscle weakness, pneumonia , sleep apnea, bilateral tinnitus, atrial fibrillation, UTI. Left eye contusion/ left lower leg laceration - surgically repaired, Right heel pressure ulcer - healed, peripheral neuropathy (bilateral hands and feet), migraines, eczema, sinus problems, lower GI bleed. 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, sputum-MRSA; Urine-VRE Past Surgical History: Adenoidectomy, Bariatric Surgery, Cholecystectomy, Joint Replacement, Tonsillectomy, Tubal Ligation Additional Past Surgical History / Comment(s): Gastric bypass, Clinton-en-Y in 2003 , Lizzy filter placement in 2000, teeth extraction, colonoscopy, EGD, hemorrhoidectomy, panniculectomy, D&C, hystoscopy x 2, LT KNEE replaced 2006- MRSA infection-hardware removed and cemented then replaced again, L hip repair with screw and total R hip REPLACEMENT, bilateral heel spurs removed, bilateral carpal tunnel releases, D&Cs, infusaport insertion since removed. Past Anesthesia/Blood Transfusion Reactions: Blood Transfusion Reaction Additional Past Anesthesia/Blood Transfusion Reaction / Comment(s): Per chart unspecified reaction. Past Psychological History: Anxiety, Depression Additional Psychological History / Comment(s): Patient is now in extended care. No longer live independently. Does not have any significant family. Was a tobacco smoker stopping several years ago. She has history of smoking 1.5-2 pack per day for 27 years and quit in 1993. She drinks alcohol rarely. 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 No animal exposures. Smoking Status: Former smoker Past Alcohol Use History: None Reported Additional Past Alcohol Use History / Comment(s): She has history of smoking 2 packs per day for 27 years and quit in 1993. She drinks alcohol rarely. 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 Past Drug Use History: Marijuana Additional Drug Use History / Comment(s): . - Past Family History Father Family Medical History: Myocardial Infarction (ID) Additional Family Medical History / Comment(s): AT AGE 46-ID Mother Family Medical History: Diabetes Mellitus Additional Family Medical History / Comment(s): AT AGE 66 FROM COMPLICATIONS FROM DM Sister(s) Family Medical History: Diabetes Mellitus Brother(s) Family Medical History: Diabetes Mellitus Daughter(s) Family Medical History: Cancer Son(s) Family Medical History: No Reported History Medications and Allergies Home Medications Medication Instructions Recorded Confirmed Type Atorvastatin [Lipitor] 40 mg PO HS 08/30/15 02/11/18 History Ferrous Sulfate [Iron (65 MG 650 mg PO BID 06/29/16 02/11/18 History Elemental)] Polyethylene Glycol 3350 [Miralax] 17 gm PO DAILY PRN 06/29/16 01/05/18 History Bisacodyl [Dulcolax] 10 mg PO DAILY PRN 01/26/17 01/05/18 History Potassium Chloride ER [K-Dur 20] 20 meq PO HS 03/23/17 01/05/18 History Aspirin 81 mg PO HS 04/20/17 02/11/18 History Ipratropium-Albuterol Nebulize 3 ml INHALATION RT-Q4H PRN 05/22/17 01/05/18 History [Duoneb 0.5 mg-3 mg/3 ml Soln] Sennosides [Senokot] 8.6 mg PO HS 05/22/17 01/05/18 History amLODIPine [Norvasc] 10 mg PO DAILY@0700 05/22/17 02/11/18 History Acetaminophen Tab [Tylenol] 650 mg PO Q4H PRN 07/29/17 01/05/18 History Bisacodyl [Dulcolax] 10 mg RECTAL DAILY PRN 11/25/17 01/05/18 History Magnesium Hydroxide [Milk of 400 mg PO HS PRN 11/25/17 01/05/18 History Magnesia] Biotin 300 mcg PO HS 01/05/18 02/11/18 History Calcium Carbonate/Vitamin D3 1 each PO HS 01/05/18 01/05/18 History [Calcium 500-Vit D3 200 Tablet] DAPTOmycin [Cubicin] 500 mg IV DAILY 01/05/18 01/05/18 History DULoxetine HCL [Cymbalta] 30 mg PO DAILY 01/05/18 02/11/18 History Enoxaparin [Lovenox] 30 mg SQ Q12H 01/05/18 01/05/18 History HYDROmorphone HCL 2 mg PO Q4H PRN 01/05/18 01/05/18 History INSULIN LISPRO (humaLOG) [humaLOG] 0 units SQ ACHS 01/05/18 01/05/18 History Methocarbamol [Robaxin] 1,000 mg PO QID 01/05/18 01/05/18 History Morphine Sulfate ER [Ms Contin] 15 mg PO Q12HR 01/05/18 01/05/18 History Multivitamins, Thera [Multivitamin 1 tab PO DAILY 01/05/18 01/05/18 History (formulary)] Oxybutynin Chloride [Oxybutynin 10 mg PO DAILY 01/05/18 02/11/18 History Chloride ER] Pregabalin [Lyrica] 75 mg PO TID 01/05/18 01/05/18 History Rifampin [Rifadin] 300 mg PO BID 01/05/18 01/05/18 History rOPINIRole HCL [Requip] 0.5 mg PO HS 01/05/18 02/11/18 History Allergies Allergy/AdvReac Type Severity Reaction Status Date / Time adhesive tape Allergy Severe Rash/Hives Verified 01/05/18 08:28 cephalexin monohydrate Allergy Severe Rash/Hives Verified 01/05/18 08:28 [From Keflex] influenza virus vaccine, Allergy Severe Anaphylaxis Verified 01/05/18 08:28 specific [influenza virus vacc,specific] latex Allergy Severe Rash/Hives Verified 01/05/18 08:28 peanut Allergy Severe Anaphylaxis Verified 01/05/18 08:28 Penicillins Allergy Severe Swelling Verified 01/05/18 08:28 tetanus toxoid, adsorbed Allergy Intermediate Rash/Hives Verified 01/05/18 08:28 Influenza Virus Vaccines Allergy Anaphylaxis Verified 01/05/18 08:28 Physical Exam Vitals: Vital Signs Temp Pulse Pulse Resp BP BP Pulse Ox 02/11/18 07:52 97 F L 76 16 126/70 96 02/11/18 02:11 98.6 F 78 16 140/68 96 02/10/18 23:56 97.1 F L 92 20 148/71 98 02/10/18 21:43 98.3 F 70 16 144/89 100 02/10/18 18:37 97 F L 69 20 154/72 100 Intake and Output 02/10/18 02/11/18 02/11/18 22:59 06:59 14:59 Other: Voiding Method Diaper # Voids 1 # Bowel Movements 1 Weight 97.522 kg - Constitutional General appearance: Present: average body habitus, cooperative, no acute distress - EENT Eyes: Present: anicteric sclerae, EOMI, PERRLA, normal appearance ENT: Present: hearing grossly normal, normal oropharynx Ears: bilateral: normal - Neck Neck: Present: normal ROM. Absent: lymphadenopathy, rigidity, thyromegaly Carotids: negative: bruit present Thyroid: bilateral: normal size, negative: enlarged, nodule - Respiratory Respiratory: bilateral: CTA, negative: rales, rhonchi, wheezing - Cardiovascular Rhythm: regular Heart sounds: normal: S1, S2 Abnormal Heart Sounds: Absent: systolic murmur, diastolic murmur - Gastrointestinal General gastrointestinal: Present: normal bowel sounds, soft. Absent: distended , organomegaly, tenderness - Genitourinary Genitourinary Comment(s): deferred - Integumentary Integumentary: Present: normal turgor. Absent: jaundiced, rash, ulcer - Neurologic Neurologic: Present: CNII-XII intact. Absent: focal deficits - Musculoskeletal Musculoskeletal: Present: gait normal, strength equal bilaterally - Psychiatric Psychiatric: Present: A&O x's 3, appropriate affect, intact judgment & insight Results CBC & Chem 7: 02/10/18 21:40 02/10/18 20:49 Labs: Abnormal Lab Results - Last 24 Hours (Table) 02/10/18 02/10/18 02/10/18 Range/Units 20:32 20:49 20:49 RBC (3.80-5.40) m/uL Hgb (11.4-16.0) gm/dL Hct (34.0-46.0) % MCHC (31.0-37.0) g/dL RDW (11.5-15.5) % VBG HCO3 (24-28) mmol/L Chloride 117 H (98-107) mmol/L Carbon Dioxide 19 L (22-30) mmol/L BUN 44 H (7-17) mg/dL Glucose 114 H (74-99) mg/dL Alkaline Phosphatase 139 H (38-126) U/L Total Creatine Kinase 27 L (30-135) U/L Albumin 3.2 L (3.5-5.0) g/dL Urine Appearance Turbid H (Clear) Urine Protein 2+ H (Negative) Urine Blood Large H (Negative) Ur Leukocyte Esterase Large H (Negative) Urine RBC >182 H (0-5) /hpf Urine WBC >182 H (0-5) /hpf Urine WBC Clumps Many H (None) /hpf Urine Bacteria Moderate H (None) /hpf 02/10/18 02/10/18 Range/Units 20:49 21:40 RBC 3.08 L (3.80-5.40) m/uL Hgb 9.4 L D (11.4-16.0) gm/dL Hct 30.6 L (34.0-46.0) % MCHC 30.8 L (31.0-37.0) g/dL RDW 17.1 H (11.5-15.5) % VBG HCO3 18 L (24-28) mmol/L Chloride (98-107) mmol/L Carbon Dioxide (22-30) mmol/L BUN (7-17) mg/dL Glucose (74-99) mg/dL Alkaline Phosphatase (38-126) U/L Total Creatine Kinase (30-135) U/L Albumin (3.5-5.0) g/dL Urine Appearance (Clear) Urine Protein (Negative) Urine Blood (Negative) Ur Leukocyte Esterase (Negative) Urine RBC (0-5) /hpf Urine WBC (0-5) /hpf Urine WBC Clumps (None) /hpf Urine Bacteria (None) /hpf Microbiology - Last 24 Hours (Table) 02/10/18 20:32 Urine Culture - Preliminary Urine,Catheterized Thrombosis Risk Factor Assmnt - Choose All That Apply Any of the Below Risk Factors Present?: Yes Each Factor Represents 1 point: Obesity (BMI >25) Other Risk Factors: Yes Each Risk Factor Represents 2 Points: Age 61-74 years Each Risk Factor Represents 3 Points: History of DVT/PE Other congenital or acquired thrombophilia - If yes, enter type in comment: No Thrombosis Risk Factor Assessment Total Risk Factor Score: 6 Thrombosis Risk Factor Assessment Level: High Risk Assessment and Plan Assessment: 1. Altered mental status; metabolic encephalopathy - Possibly secondary to UTI versus dehydration versus medication effect; patient is on hydromorphone, methocarbamol, morphine sulfate at home along with Cymbalta and Lyrica; we will hold all of the above-mentioned medications till mental status improves - We will continue to monitor closely; patient does have underlying dementia and were not sure of baseline mental status 2. Complicated UTI - Patient was started on IV Levaquin 750 mg every 24 hours - We will continue same antibiotic and wait for final urine culture and sensitivity report for any further adjustments - We will obtain blood cultures and treat accordingly 3. Mild renal injury/dehydration - Continue with IV fluid hydration patient received a bolus of thousand meals of normal saline - We will continue to monitor strict CRISTO's, renal function and electrolytes - We will avoid nephrotoxins and hypotensive episodes 4. Uncontrolled hypertension - We will restart patient on home dose of Norvasc and monitor blood pressure closely; we will adjust medications if blood pressure remains elevated 5. Chronic blood loss Anemia; at baseline; we will restart home dose of iron sulfate once mental status improves 6. Hyperlipidemia; continue with Lipitor 40 mg by mouth daily at bedtime 7. Diabetes mellitus type 2 - We will keep patient on Accu-Cheks before meals and at bedtime with insulin sliding scale 8. DVT prophylaxis; continue with home dose of Lovenox 30 mg subcu daily at bedtime CODE STATUS; full code Time with Patient: Greater than 30
[2018-02-11] MEDS: ENOXAPARIN 30 MG/0.3 ML SYRINGE SQ SCH (16:02)
[2018-02-11 16:28] LABS: Glucose,Whole Blood 139 mg/dL (75-99)
[2018-02-11 20:25] LABS: Glucose,Whole Blood 136 mg/dL (75-99)
[2018-02-11] MEDS: LEVOFLOXACIN 750MG-D5W PMX 750 MG in DEXTROSE/WATER 1 150ML.BAG IVPB SCH (22:18)
[2018-02-11] MEDS: ATORVASTATIN 40 MG TAB PO SCH (22:18)
[2018-02-11] MEDS: FERROUS SULFATE 325 MG TAB PO SCH (22:18)
[2018-02-11] MEDS: RIFAMPIN 300 MG CAP PO SCH (22:18)
[2018-02-11] MEDS: ASPIRIN 81 MG PO SCH (22:18)
[2018-02-11] MEDS: POTASSIUM CHLORIDE ER 20 MEQ TAB.ER PO SCH (22:18)
[2018-02-12] MEDS: ENOXAPARIN 30 MG/0.3 ML SYRINGE SQ SCH ×3 (01:01→23:12)
[2018-02-12 07:19] LABS: Glucose,Whole Blood 125 mg/dL (75-99)
[2018-02-12] MEDS: amLODIPine 10 MG TAB PO SCH (09:14)
[2018-02-12] MEDS: FERROUS SULFATE 325 MG TAB PO SCH ×2 (09:14→22:52)
[2018-02-12] MEDS: OXYBUTYNIN 10 MG TAB.ER.24 PO SCH (09:15)
[2018-02-12] MEDS: RIFAMPIN 300 MG CAP PO SCH ×2 (09:15→22:52)
[2018-02-12] MEDS: SODIUM CHLORIDE 0.9% 1,000 ML IV SCH ×2 (09:25→22:51)
[2018-02-12 11:41] LABS: Glucose,Whole Blood 120 mg/dL (75-99)
[2018-02-12 16:35] LABS: Glucose,Whole Blood 138 mg/dL (75-99)
[2018-02-12 20:17] LABS: Glucose,Whole Blood 214 mg/dL (75-99)
--- NOTE | 2018-02-12 22:04 | PN ---
PROGRESS NOTE DATE OF SERVICE: 02/12/2018 This 67-year-old woman admitted with change in mental status as well as thought to have UTI with sepsis. The patient is started on broad-spectrum IV antibiotics and the culture showed gram-negative rods in the urine. The patient also had bilateral skin lesions and ulcers also possibly decubitus in nature. Previously Infectious Disease has seen the patient. PAST MEDICAL HISTORY: Reviewed. REVIEW OF SYSTEMS: Could not be taken, the patient is confused. CURRENT MEDICATIONS ARE: Noted and include: 1. Norvasc 10 mg p.o. daily. 2. Aspirin 81 mg. 3. Lipitor 40 mg. 4. Lovenox 30 mg subcu. 5. Iron sulfate. 6. Levaquin 750 mg q24 hours. 7. Narcan. 8. Zofran. 9. Ditropan XL. 10.K-Dur 20 mEq. 11.Nifedipine. PHYSICAL EXAMINATION: The patient is confused and conscious. Pulse 64, blood pressure 142/68, respirations 16, temperature 99.1, pulse ox 97% on room air. HEENT: Conjunctivae normal. Oral mucosa moist. NECK: No is no jugular venous distention. No carotid bruit. No lymph node enlargement. Cardiovascular systems: S1, S2 muffled. Respirations: Breath sounds diminished in the bases. A few scattered rhonchi and crackles. Abdomen is soft, nontender. Legs: Minimal edema, and as well as bilateral ulcerations also present. Nervous system: Diffusely weak. JOINTS: No active deforming arthropathy. LAB INVESTIGATIONS: Accu-Cheks 125, 120, hemoglobin 9.4. UA noted. ASSESSMENT: 1. Acute urinary tract infection with sepsis. 2. Change in mental status, acute on chronic metabolic encephalopathy secondary to sepsis. 3. Complicated urinary tract infection. 4. Acute renal failure. 5. Uncontrolled hypertension. 6. Chronic blood-loss anemia. 7. Hyperlipidemia. 8. Diabetes type 2. 9. Multiple decubitus ulcers. RECOMMENDATIONS AND DISCUSSION: Recommend to continue current medications, management and symptomatic treatment. Broad- spectrum IV antibiotics. I would also recommend PT/OT evaluation and continue to monitor. Home medications. DVT prophylaxis. See orders for details. Prognosis guarded because of multiple complex medical issues. Further recommendations to follow and I would also get infectious disease evaluation. Otherwise, we will follow the patient closely and see orders for details. We will cut down the IV fluids. MMODL / IJN: [id number] /
[2018-02-12] MEDS: LEVOFLOXACIN 750MG-D5W PMX 750 MG in DEXTROSE/WATER 1 150ML.BAG IVPB SCH (22:52)
[2018-02-12] MEDS: ASPIRIN 81 MG PO SCH (22:52)
[2018-02-12] MEDS: POTASSIUM CHLORIDE ER 20 MEQ TAB.ER PO SCH (22:52)
[2018-02-12] MEDS: ATORVASTATIN 40 MG TAB PO SCH (22:52)
[2018-02-13] MEDS: SODIUM CHLORIDE 0.9% 1,000 ML IV SCH (05:24)
[2018-02-13 06:51] LABS: Glucose,Whole Blood 125 mg/dL (75-99)
[2018-02-13 07:18] LABS: Anisocytosis Slight; Basophils % (A) 0 %; Eosinophils # (A) 0.1 k/uL (0-0.7); Eosinophils % (A) 3 %; HCT 28.3 % (34.0-46.0); HGB 9.1 gm/dL (11.4-16.0); Lymphocytes # (A) 1.7 k/uL (1.0-4.8); Lymphocytes % (A) 38 %; MCH 29.6 pg (25.0-35.0); MCHC 32.1 g/dL (31.0-37.0); MCV 92.2 fL (80.0-100.0); Mean Platelet Volume 7.2; Monocytes # (A) 0.3 k/uL (0-1.0); Monocytes % (A) 6 %; Neutrophils # (A) 2.3 k/uL (1.3-7.7); Neutrophils % (A) 50 %; Platelet Count 176 k/uL (150-450); RBC 3.07 m/uL (3.80-5.40); RDW 16.7 % (11.5-15.5); WBC 4.5 k/uL (3.8-10.6)
[2018-02-13 07:50] LABS: Anion Gap 5 mmol/L; Blood Urea Nitrogen 22 mg/dL (7-17); Calcium 8.5 mg/dL (8.4-10.2); Carbon Dioxide 20 mmol/L (22-30); Chloride 117 mmol/L (98-107); Glucose 115 mg/dL (74-99); Potassium 3.9 mmol/L (3.5-5.1); Sodium 142 mmol/L (137-145)
[2018-02-13] MEDS: RIFAMPIN 300 MG CAP PO SCH ×2 (07:50→22:16)
[2018-02-13] MEDS: amLODIPine 10 MG TAB PO SCH (07:50)
[2018-02-13] MEDS: FERROUS SULFATE 325 MG TAB PO SCH ×2 (07:50→22:16)
[2018-02-13] MEDS: OXYBUTYNIN 10 MG TAB.ER.24 PO SCH (07:50)
[2018-02-13] MEDS ORDERED: ERTAPENEM 1 GM in SODIUM CHLORIDE 0.9% 50 ML IVPB STA (09:44)
[2018-02-13 10:47] VITALS: BMI 38.0
[2018-02-13 11:16] LABS: Glucose,Whole Blood 139 mg/dL (75-99)
[2018-02-13] MEDS: ENOXAPARIN 30 MG/0.3 ML SYRINGE SQ SCH (12:27)
[2018-02-13] MEDS: IOPAMIDOL-300 CONTRAST 30 ML VIAL (ORAL USE) PO PRN ×2 (12:38→13:32)
[2018-02-13] MEDS ORDERED: BISACODYL 10 MG SUPP RECTAL PRN (15:14)
[2018-02-13] MEDS ORDERED: ACETAMINOPHEN TAB 325 MG TAB PO PRN (15:14)
--- NOTE | 2018-02-13 16:15 | CT ---
EXAMINATION TYPE: CT abdomen pelvis wo con DATE OF EXAM: 02/13/2018 COMPARISON: 08/17/2017 INDICATION: Abdominal pain DLP: 1508 mGycm, Automated exposure control for dose reduction was used. CONTRAST: 0 mL of Isovue 370. Study performed with Oral Contrast TECHNIQUE: Axial images were obtained from above the diaphragm to the pubic rami in the axial plane a t 5 mm thick sections. Reconstructed images are reviewed on the computer in the coronal plane. FINDINGS: Limited CT sections are obtained the lung bases. Some mild infiltrate is at the left base. Small lef t pleural effusion is present. Hiatal hernia is present.. CT ABDOMEN: There is a large fecal bolus extending from the rectum into the epigastric region. Fecal debris is within the remaining portions of the colon. Correlate for fecal impaction. This is an inter neena change. Liver: Normal Spleen: Normal Pancreas: Atrophic Adrenal glands: The adrenal glands are normal. Gallbladder: Surgically absent Kidneys: No masses are evident. Bilateral hydronephrosis is present. There is some mild hydroureter. Due to the beam hardening artifact distal ureteral vesicle junction stones may be difficult to exclud e. No cysts are present. There are bilateral renal stones present. The largest on the right is at th e inferior pole is a transverse dimension of 0.5 cm. Multiple cortical medullary junction stones are present on the left. Some faint increased densities within the dependent portion of the left renal pe lvis. Hydroureter extends into the pelvis bilaterally. Aorta: Vascular calcification is within the aorta. Inferior vena cava: A filter is within the inferior vena cava. CT PELVIS: Study is without oral contrast. A large fecal bolus is at the rectum. There is redundancy of the sigm oid colon. Fecal debris is within the remaining portions of the colon. Dilated small bowel loops are not evident. Appendix: Not identified. Urinary bladder: Decompressed with limited evaluation. Genitourinary structures: Uterus and ovaries are not identified. Osseous structures: No suspicious lytic or sclerotic lesions. There is a right hip prosthesis. Left h ip pin is present. No suspicious lytic or sclerotic lesions are evident. IMPRESSIONS: 1. Large fecal bolus at the dilated rectum extending to nearly the epigastric region. This has a max imum transverse diameter 14 cm. Correlate for fecal impaction. The sigmoid colon is redundant. There is fecal debris through the remaining portions of the nondilated colon.
--- NOTE | 2018-02-13 16:32 | PN ---
PROGRESS NOTE DATE OF SERVICE: 02/13/2018 This 67-year-old woman who was admitted with change in mental status with the possibility is UTI with sepsis. The urine culture showed Proteus and E coli. The E coli is ESBL. No chest pain. No palpitation. PAST MEDICAL HISTORY: Reviewed. REVIEW OF SYSTEMS: Cardiovascular system: No angina or palpitations. Respiratory: As mentioned earlier. GI: As mentioned earlier. : As mentioned earlier. Central nervous system: Mildly confused. CURRENT MEDICATIONS: Reviewed and include 1. Norvasc 10 mg. 2. Aspirin 81 mg. 3. Lipitor 40 mg q.h.s. 4. Lovenox 30 mg b.i.d. 5. Iron sulfate 650 b.i.d. 6. Narcan 0.2 q.2h p.r.n. 7. Zofran 4 mg q.8h. 8. Ditropan XL 10 mg. 9. MiraLAX 17 g q.i.d.. PHYSICAL EXAM: Patient is alert, oriented x2. Pulse 59, blood pressure 129/71, respiration 16 , temp 98.8, pulse ox 97% on room air. HEENT: Conjunctivae normal. Oral mucosa moist. Neck is no jugular venous distention. No carotid bruit. No lymph node enlargement. Cardiovascular: S1, S2 muffled. Respirations: Breath sounds diminished in the bases. A few scattered rhonchi. No crackles. ABDOMEN: Soft, nontender. No mass palpable. Legs: Bilateral ulcers and some swelling also present. Central nervous system: Diffusely weak. LAB STUDIES: WBC 4.8, hemoglobin 9.1. Glucose noted. ASSESSMENT: 1. Acute urinary tract infection with sepsis. ESBL E coli and as well as Proteus mirabilis. 2. Change in mental status, acute on chronic metabolic encephalopathy secondary to sepsis. 3. Complicated urinary tract infection. 4. Acute renal failure. 5. Hypertension. 6. Chronic blood-loss anemia. 7. Hyperlipidemia. 8. Diabetes type 2. 9. Multiple decubitus ulcer. RECOMMENDATIONS AND DISCUSSION: Recommend to continue current medications. Continue with monitoring and symptomatic treatment. Otherwise, at this time, I would recommend broad-spectrum IV antibiotics. I would also recommend infectious disease evaluation. Otherwise, guarded prognosis because of multiple complex medical issues and further recommendations to follow. Otherwise continue the rest of medications. Home medication reconciliation done and further recommendations to follow. MMODL / IJN: [id number] / TRISTAN
[2018-02-13 16:59] LABS: Glucose,Whole Blood 146 mg/dL (75-99)
--- NOTE | 2018-02-13 17:59 | CONS ---
CONSULTATION DATE OF SERVICE: 02/13/2018. REASON FOR CONSULTATION: ESBL E coli UTI infection. HISTORY OF PRESENT ILLNESS: The patient is a 67 -year-old female, who is a resident of [facility]. She has been sent to the [facility] ER on 02/10/2018 for evaluation of mental status changes. Apparently the patient noticed to be unarousable to sternal rub. Apparently the patient may have passed out and was noticed to have hypoxic with O2 sats of 70%. On arrival to the emergency room, the patient did have sats 95%. Subsequently the patient has been transferred to the [facility] ER for further evaluation. The patient did have a chest x-ray which shows cardiomegaly with coarse lung markings, increased slightly at the right lung compared to the old exam. The patient did have a CT of the brain that was negative for any acute bleed. The patient's highest temperature has been 100.4 was recorded last night. She did have a positive UA with large leukocyte esterase, more than 1 to 2 WBC with many bacteria. The culture subsequently finalized with ESBL E coli and Proteus mirabilis though the for high count and was resistant to the Levaquin. Hence, Infectious Disease was consulted for further recommendation regarding antibiotic therapy. The patient did have some chronic wound to the left leg that seems to be in healing stages. Denies any pain to leg wound area. The patient is awake and alert. Knows she is in the hospital. She knows that she is in the hospital. Denies having any chest pain or shortness of breath or any cough to me. No abdominal pain. No diarrhea. REVIEW OF SYSTEMS: CONSTITUTIONAL: Positive for weakness and low-grade fever. Eyes: No complaint. ENT no complaint. Respiratory no complaint. Cardiovascular no complaint. Genitourinary as per HPI. Gastrointestinal: No complaint. Musculoskeletal as per HPI. Integumentary as per HPI. Psychological as per HPI. Neurologic no complaint. PAST MEDICAL HISTORY: Atrial fibrillation, diabetes mellitus, DVT, fibromyalgia, GI bleed, hypertension, hyperlipidemia, pneumonia, history of osteomyelitis, previous history of MRSA and VRE infection. PAST SURGICAL HISTORY: Adenoidectomy, surgery, cholecystectomy, tonsillectomy, tubal ligation, left knee replacement. SOCIAL HISTORY: Remote history of smoking. No drinking or drug use. Currently a resident of a [facility]. FAMILY HISTORY: Mother with history of diabetes who at age of 66 from a complication of diabetes mellitus. Father history of OH, at age of 46. ALLERGIES: TO MULTIPLE MEDICATION INCLUDING TO CEPHALOSPORIN, CEPHALEXIN AND PENICILLIN WITH A RASH. No history of anaphylaxis. MEDICATION: Medications include the patient is currently on Senokot, Requip, rifampin., Lyrica, K- Dur, MiraLAX, Protonix, Ditropan XL, Zofran, Biotin, Narcan, Theragran, , iron sulfate, Lovenox, Cymbalta, Os-Jevon with D, Dulcolax, Lipitor, aspirin, vitamin C, Norvasc and Tylenol. EXAMINATION: Blood pressure 134/59 with a pulse of 54, temperature 98.4. T-max 100.4, she is 99% on room air. General description is an elderly female lying in bed in no distress. No tachypnea or accessory muscles of respiration use. HEENT: Shows slight pallor. No scleral icterus. Oral mucosal membranes are dry. No significant pharyngeal erythema or thrush. Neck trachea central. No thyromegaly. Lungs unlabored breathing. Clear to auscultation anteriorly. No wheeze or crackles. Heart S1, S2. Regular rate and rhythm. ABDOMEN: Soft, no tenderness. No guarding or rigidity. Left leg with some superficial ulceration, but no soft tissue. No surrounding cellulitis or any drainage. The patient also has a superficial wound to the right hip site of skin graft with no cellulitis. Neurologically, patient is awake, alert, oriented x2. Mood and affect normal. LABS: Hemoglobin is 9.1. O2 4.5. BUN of 22, creatinine 0.61. Electrolytes have been normal. Urine was positive with culture did show Proteus mirabilis more than 100,000 colonies, E coli to the ESBL. DIAGNOSTIC IMPRESSION/PLAN: 1. Patient admitted to the hospital with mental status changes which is likely multifactorial in this patient with possible component of urinary tract infection. The patient did have significantly positive UA. She did have some urine incontinence of Coffey catheter though but no other clinical focus of infection. 2. Patient who did have some superficial wound to the left leg and the right hip area with no definite cellulitis. 3. Patient who does have multiple antibiotic allergies that will limit the number of antibiotics that could be safely used. PLAN: 1. We will obtain a UA and culture straight cath to rule out colonization contamination. 2. Invanz 1 g daily while waiting for the repeat urine culture to finalize. 3. Aquacel Silver dressing to the left leg and to the right hip wound area. 4. We will follow up on clinical condition and culture to further adjust medication if needed. Thank you for this consultation. We will follow the patient along with you. MMODL / IJN: [id number] /
[2018-02-13] MEDS: PREGABALIN 75 MG CAP PO SCH ×2 (18:03→22:15)
[2018-02-13 20:03] LABS: Glucose,Whole Blood 189 mg/dL (75-99)
[2018-02-13 20:09] LABS: Amorphous Sediment,Urine Few /hpf; Appearance,Urine Turbid (Clear); Bilirubin,Urine Negative (Negative); Blood,Urine Moderate (Negative); Color,Urine Yellow; Glucose,Urine (UA) Negative (Negative); Ketones,Urine Negative (Negative); Leukocyte Esterase,Urine Large (Negative); Mucus,Urine Moderate /hpf; Nitrite,Urine Negative (Negative); Protein,Urine 2+ (Negative); RBC,Urine 33 /hpf (0-5); Specific Gravity,Urine 1.014 (1.001-1.035); Squamous Epithelial Cell,Urine 6 /hpf (0-4); Urobilinogen,Urine <2.0 mg/dL (<2.0); WBC,Urine >182 /hpf (0-5)
[2018-02-13] MEDS ORDERED: NA PHOS,M-B/NA PHOS,DI-BA 133 ML ENEMA RECTAL STA (21:41)
[2018-02-13] MEDS: NON-FORMULARY DRUG (Amino Acids/Protein Hydrolys [Pro-Stat Supplement] 30 ML) PO SCH (21:43)
[2018-02-13] MEDS: NON-FORMULARY DRUG (Biotin [Biotin] 300 MCG) PO SCH (22:10)
[2018-02-13] MEDS: ATORVASTATIN 40 MG TAB PO SCH (22:13)
[2018-02-13] MEDS: ASPIRIN 81 MG PO SCH (22:13)
[2018-02-13] MEDS: ASCORBIC ACID 500 MG TAB PO SCH (22:14)
[2018-02-13] MEDS: HYDROcodone/APAP 5-325MG 1 EACH TAB PO PRN (22:15)
[2018-02-13] MEDS: MAGNESIUM OXIDE 400 MG TAB PO SCH (22:16)
[2018-02-13] MEDS: MULTIVITAMINS, THERA 1 EACH TAB PO SCH (22:16)
[2018-02-13] MEDS: CALCIUM CARB-VIT D 500MG-200UN 1 EACH TAB PO SCH (22:16)
[2018-02-13] MEDS: SENNOSIDES 8.6 MG TAB PO SCH (22:16)
[2018-02-13] MEDS: POTASSIUM CHLORIDE ER 20 MEQ TAB.ER PO SCH (22:16)
[2018-02-13] MEDS: LACTULOSE 20 GM/30 ML CUP PO SCH (22:17)
[2018-02-13 22:18] LABS: Glucose,Whole Blood 147 mg/dL (75-99)
[2018-02-13] MEDS: INSULIN ASPART 100 UNIT/ML 1 ML 10 ML VIAL SQ SCH (22:59)
[2018-02-14] MEDS: MORPHINE SULFATE 2 MG/ML SYRINGE IVP PRN ×3 (00:51→17:30)
[2018-02-14] MEDS: ENOXAPARIN 30 MG/0.3 ML SYRINGE SQ SCH ×2 (00:51→12:37)
[2018-02-14] MEDS: LACTULOSE 20 GM/30 ML CUP PO SCH ×3 (02:07→11:27)
[2018-02-14] MEDS: SODIUM CHLORIDE 0.9% 1,000 ML IV SCH (05:48)
[2018-02-14 07:03] LABS: Glucose,Whole Blood 131 mg/dL (75-99)
[2018-02-14] MEDS ORDERED: INSULIN ASPART 100 UNIT/ML 1 ML 10 ML VIAL SQ SCH (07:30)
[2018-02-14 08:46] LABS: Anisocytosis Slight; Basophils % (A) 1 %; Eosinophils # (A) 0.2 k/uL (0-0.7); Eosinophils % (A) 5 %; HCT 29.4 % (34.0-46.0); HGB 9.5 gm/dL (11.4-16.0); Hypochromasia Slight; Lymphocytes # (A) 1.8 k/uL (1.0-4.8); Lymphocytes % (A) 36 %; MCHC 32.3 g/dL (31.0-37.0); MCV 92.8 fL (80.0-100.0); Mean Platelet Volume 7.4; Monocytes # (A) 0.3 k/uL (0-1.0); Monocytes % (A) 7 %; Neutrophils # (A) 2.5 k/uL (1.3-7.7); Neutrophils % (A) 50 %; Platelet Count 180 k/uL (150-450); RBC 3.17 m/uL (3.80-5.40); RDW 16.7 % (11.5-15.5)
[2018-02-14 09:04] LABS: Anion Gap 6 mmol/L; Blood Urea Nitrogen 19 mg/dL (7-17); Calcium 8.6 mg/dL (8.4-10.2); Carbon Dioxide 23 mmol/L (22-30); Chloride 116 mmol/L (98-107); Glucose 119 mg/dL (74-99); Sodium 145 mmol/L (137-145)
[2018-02-14] MEDS: INSULIN ASPART 100 UNIT/ML 1 ML 10 ML VIAL SQ SCH ×4 (09:16→21:34)
[2018-02-14] MEDS: RIFAMPIN 300 MG CAP PO SCH ×2 (09:44→21:35)
[2018-02-14] MEDS: OXYBUTYNIN 10 MG TAB.ER.24 PO SCH (09:44)
[2018-02-14] MEDS: FERROUS SULFATE 325 MG TAB PO SCH ×2 (09:44→21:33)
[2018-02-14] MEDS: SENNOSIDES 8.6 MG TAB PO SCH ×2 (09:44→16:18)
[2018-02-14] MEDS: amLODIPine 10 MG TAB PO SCH (09:44)
[2018-02-14] MEDS: MAGNESIUM OXIDE 400 MG TAB PO SCH ×2 (09:45→21:34)
[2018-02-14] MEDS: PANTOPRAZOLE 40 MG TABLET PO SCH (09:45)
[2018-02-14] MEDS: DULoxetine HCL 30 MG CAPSULE.DR PO SCH (09:45)
[2018-02-14] MEDS: ERTAPENEM 1 GM in SODIUM CHLORIDE 0.9% 50 ML IVPB SCH (09:46)
[2018-02-14] MEDS: NON-FORMULARY DRUG (Amino Acids/Protein Hydrolys [Pro-Stat Supplement] 30 ML) PO SCH ×2 (09:46→21:31)
[2018-02-14] MEDS: PREGABALIN 75 MG CAP PO SCH ×3 (09:48→21:42)
[2018-02-14 11:23] LABS: Glucose,Whole Blood 180 mg/dL (75-99)
[2018-02-14 12:18] LABS: Hemoglobin A1C 5.1 % (4.0-6.0)
--- NOTE | 2018-02-14 14:35 | PN ---
PROGRESS NOTE DATE OF SERVICE: 02/14/2018 INTERVAL HISTORY: This is a 67-year-old woman who was admitted with UTI, had ESBL E coli and as well as Proteus mirabilis. No chest pain. No palpitations. Sodium is improved significantly. Patient also has significant bilateral leg ulcers also. Infectious Disease has been following the patient closely. No chest pain. No palpitations. No fever. PHYSICAL EXAM: Alert and oriented x2. Pulse blood pressure 149/72, respiration 18, temperature 98.8, pulse ox 98% on room air. HEENT: Conjunctivae normal, oral mucosa moist. Neck is no jugular venous distention. No lymph node enlargement. CARDIOVASCULAR: S1, S2, muffled. REPSIRATORY: No no stenosis pressure in the bases. No rhonchi. No crackles. ABDOMEN: Soft, nontender. LEGS: Bilateral leg cellulitis present. NERVOUS SYSTEM: Diffusely weak. LABS: WBC is 5, hemoglobin 9.5 glucose 119. ASSESSMENT: 1. Acute urinary tract infection with sepsis ESBL E coli as well as Proteus mirabilis. 2. Change in mental status acute on chronic metabolic encephalopathy secondary to sepsis. 3. Complicated urinary tract infection. 4. Acute renal failure. 5. Hypertension. 6. Chronic blood-loss anemia, hyperlipidemia. 7. Diabetes type 2. 8. Multi complex multiple lipids decubitus ulcers because recommend to continue current management and treatment otherwise at this time closely monitor. Follow with Infectious Disease. Guarded prognosis because of multiple complex medical issues and further recommendation to follow. MMODL / IJN: [id number] /
[2018-02-14] MEDS: DOCUSATE 100 MG CAP PO SCH (16:18)
[2018-02-14 17:17] LABS: Glucose,Whole Blood 99 mg/dL (75-99)
[2018-02-14 20:18] LABS: Glucose,Whole Blood 224 mg/dL (75-99)
[2018-02-14] MEDS: ASCORBIC ACID 500 MG TAB PO SCH (21:32)
[2018-02-14] MEDS: ASPIRIN 81 MG PO SCH (21:32)
[2018-02-14] MEDS: NON-FORMULARY DRUG (Biotin [Biotin] 300 MCG) PO SCH (21:33)
[2018-02-14] MEDS: ATORVASTATIN 40 MG TAB PO SCH (21:33)
[2018-02-14] MEDS: CALCIUM CARB-VIT D 500MG-200UN 1 EACH TAB PO SCH (21:33)
[2018-02-14] MEDS: MULTIVITAMINS, THERA 1 EACH TAB PO SCH (21:34)
[2018-02-14] MEDS: POTASSIUM CHLORIDE ER 20 MEQ TAB.ER PO SCH (21:35)
[2018-02-14] MEDS: HYDROcodone/APAP 5-325MG 1 EACH TAB PO PRN (21:36)
--- NOTE | 2018-02-14 23:32 | PN ---
PROGRESS NOTE DATE OF SERVICE: 02/04/2018. REASON FOR FOLLOWUP: 1. ESBL E. coli tract infection. 2. Left leg wound. No cellulitis. INTERVAL HISTORY: The patient is afebrile. She has been breathing comfortably. She has been complaining of inability to get any sleep at night. Denies having any chest pain. No cough. No abdominal pain. Did have some pain in the left leg, but denies any worsening. EXAMINATION: Blood pressure 146/59 with a pulse of 90, temperature 99.5. She is 95% on room air. General description is an elderly female, lying in bed in no distress. RESPIRATORY SYSTEM: Unlabored breathing. Clear to auscultation anteriorly. HEART: S1, S2. Regular rate and rhythm. ABDOMEN: Soft. No tenderness. Left leg wound, dressed up. No obvious drainage on the dressing. LABS: Hemoglobin is 9.5, white count 5.0. BUN of 19, creatinine 0.63. DIAGNOSTIC IMPRESSION AND PLAN: 1. Patient with extended-spectrum beta lactamase Escherichia coli urinary tract infection. A repeat urine culture currently pending. The patient to continue Invanz while waiting for repeat cultures to finalize. 2. Left leg and right heel wound. Continue with Aquacel Silver dressing and keep the area off the pressure. MMODL / IJN: [id number] /
[2018-02-15] MEDS: ENOXAPARIN 30 MG/0.3 ML SYRINGE SQ SCH ×2 (00:40→12:41)
[2018-02-15] MEDS: MORPHINE SULFATE 2 MG/ML SYRINGE IVP PRN ×4 (00:41→21:37)
[2018-02-15 07:08] LABS: Glucose,Whole Blood 113 mg/dL (75-99)
[2018-02-15] MEDS: INSULIN ASPART 100 UNIT/ML 1 ML 10 ML VIAL SQ SCH ×4 (07:55→21:46)
[2018-02-15 08:07] LABS: Anisocytosis Slight; Basophils % (A) 1 %; Eosinophils # (A) 0.3 k/uL (0-0.7); Eosinophils % (A) 7 %; HCT 29.8 % (34.0-46.0); HGB 9.2 gm/dL (11.4-16.0); Hypochromasia Marked; Lymphocytes % (A) 43 %; MCH 29.9 pg (25.0-35.0); MCHC 30.7 g/dL (31.0-37.0); MCV 97.2 fL (80.0-100.0); Monocytes # (A) 0.3 k/uL (0-1.0); Monocytes % (A) 6 %; Neutrophils # (A) 1.8 k/uL (1.3-7.7); Neutrophils % (A) 40 %; Platelet Count 184 k/uL (150-450); RBC 3.07 m/uL (3.80-5.40); RDW 16.6 % (11.5-15.5); WBC 4.5 k/uL (3.8-10.6)
[2018-02-15 08:29] LABS: Anion Gap 7 mmol/L; Blood Urea Nitrogen 19 mg/dL (7-17); Calcium 8.2 mg/dL (8.4-10.2); Carbon Dioxide 20 mmol/L (22-30); Chloride 114 mmol/L (98-107); Glucose 98 mg/dL (74-99); Potassium 4.2 mmol/L (3.5-5.1); Sodium 141 mmol/L (137-145)
[2018-02-15] MEDS: DULoxetine HCL 30 MG CAPSULE.DR PO SCH (08:48)
[2018-02-15] MEDS: SENNOSIDES 8.6 MG TAB PO SCH ×2 (08:49→21:42)
[2018-02-15] MEDS: OXYBUTYNIN 10 MG TAB.ER.24 PO SCH (08:49)
[2018-02-15] MEDS: RIFAMPIN 300 MG CAP PO SCH ×2 (08:51→21:42)
[2018-02-15] MEDS: PANTOPRAZOLE 40 MG TABLET PO SCH (08:51)
[2018-02-15] MEDS: amLODIPine 10 MG TAB PO SCH (08:51)
[2018-02-15] MEDS: FERROUS SULFATE 325 MG TAB PO SCH ×2 (08:51→21:41)
[2018-02-15] MEDS: MAGNESIUM OXIDE 400 MG TAB PO SCH ×2 (08:51→21:42)
[2018-02-15] MEDS: DOCUSATE 100 MG CAP PO SCH ×2 (08:52→21:41)
[2018-02-15] MEDS: ERTAPENEM 1 GM in SODIUM CHLORIDE 0.9% 50 ML IVPB SCH (08:52)
[2018-02-15] MEDS: NON-FORMULARY DRUG (Amino Acids/Protein Hydrolys [Pro-Stat Supplement] 30 ML) PO SCH ×2 (08:52→21:51)
[2018-02-15] MEDS: PREGABALIN 75 MG CAP PO SCH ×3 (08:58→21:45)
[2018-02-15] MEDS: SODIUM CHLORIDE 0.9% 1,000 ML IV SCH (08:58)
[2018-02-15] MEDS ORDERED: TEMAZEPAM 15 MG CAP PO PRN (10:56)
[2018-02-15 11:27] LABS: Glucose,Whole Blood 227 mg/dL (75-99)
--- NOTE | 2018-02-15 15:52 | PN ---
PROGRESS NOTE DATE OF SERVICE: 02/15/2018 This 67-year-old woman was admitted with acute urinary tract infection with ESBL E coli, is being closely monitored. Dr. Kendrick is following the patient closely for infectious point of view and exploring the possibility of any PICC line. No chest pain. No palpitations. No fever. EXAM: Alert and oriented x2. Pulse 74, blood pressure 120/62, respiration 18, temperature 97.7, pulse ox 98% on room air. HEENT: Conjunctivae normal. NECK: No jugular venous distention. CARDIOVASCULAR: S1, S2 muffled. RESPIRATORY: Breath sounds diminished in the bases. A few scattered rhonchi. ABDOMEN: Soft, obese, nontender. No mass palpable. LEGS: Bilateral leg edema. NERVOUS SYSTEM: No focal deficits. LAB STUDIES: WBC 4, hemoglobin 9.2, glucose 227. ASSESSMENT: 1. Acute urinary tract infection with sepsis with ESBL E coli as well as Proteus mirabilis. 2. Change in mental status acute on chronic metabolic encephalopathy secondary to sepsis. 3. Constipation, abdominal pain. 4. Complicated urinary tract infection. 5. Acute renal failure. 6. Hypertension. 7. Chronic blood-loss anemia. 8. Hyperlipidemia. 9. Diabetes mellitus type 2. 10.Multiple decubitus ulcers and cellulitis. RECOMMENDATIONS AND DISCUSSION: I recommend to continue current management and symptomatic treatment. Continue with antibiotics. PICC line per Infectious Disease. Guarded prognosis because of multiple complex medical issues. Further recommendations to follow. MMODL / IJN: [id number] /
[2018-02-15 16:59] LABS: Glucose,Whole Blood 154 mg/dL (75-99)
[2018-02-15 19:53] LABS: Glucose,Whole Blood 215 mg/dL (75-99)
[2018-02-15] MEDS: ASCORBIC ACID 500 MG TAB PO SCH (21:39)
[2018-02-15] MEDS: CALCIUM CARB-VIT D 500MG-200UN 1 EACH TAB PO SCH (21:41)
[2018-02-15] MEDS: ATORVASTATIN 40 MG TAB PO SCH (21:41)
[2018-02-15] MEDS: ASPIRIN 81 MG PO SCH (21:41)
[2018-02-15] MEDS: POTASSIUM CHLORIDE ER 20 MEQ TAB.ER PO SCH (21:42)
[2018-02-15] MEDS: MULTIVITAMINS, THERA 1 EACH TAB PO SCH (21:42)
[2018-02-15] MEDS: NON-FORMULARY DRUG (Biotin [Biotin] 300 MCG) PO SCH (21:51)
[2018-02-15] MEDS ORDERED: ENOXAPARIN 30 MG/0.3 ML SYRINGE SQ ONE (23:37)
[2018-02-16] MEDS ORDERED: HYDROcodone/APAP 5-325MG 1 EACH TAB ONE (00:30)
[2018-02-16] MEDS: ENOXAPARIN 30 MG/0.3 ML SYRINGE SQ SCH ×3 (05:14→23:32)
[2018-02-16] MEDS: SODIUM CHLORIDE 0.9% 1,000 ML IV SCH ×2 (05:15→16:34)
[2018-02-16 07:09] LABS: Glucose,Whole Blood 106 mg/dL (75-99)
[2018-02-16 07:27] LABS: Anisocytosis Slight; Basophils % (A) 1 %; Eosinophils # (A) 0.4 k/uL (0-0.7); Eosinophils % (A) 9 %; HCT 26.8 % (34.0-46.0); HGB 8.6 gm/dL (11.4-16.0); Hypochromasia Slight; Lymphocytes % (A) 43 %; MCH 30.6 pg (25.0-35.0); MCHC 32.1 g/dL (31.0-37.0); MCV 95.5 fL (80.0-100.0); Mean Platelet Volume 6.8; Monocytes # (A) 0.2 k/uL (0-1.0); Monocytes % (A) 5 %; Neutrophils # (A) 1.8 k/uL (1.3-7.7); Neutrophils % (A) 39 %; Platelet Count 156 k/uL (150-450); RDW 16.8 % (11.5-15.5); WBC 4.6 k/uL (3.8-10.6)
--- NOTE | 2018-02-16 07:33 | PN ---
PROGRESS NOTE DATE OF SERVICE: 02/15/2018. REASON FOR FOLLOWUP: 1. ESBL E coli UTI. 2. Left leg wound. INTERVAL HISTORY: The patient is afebrile. The patient has been complaining of not getting enough sleep though denies having any chest pain or shortness of breath or cough. No abdominal pain or any diarrhea. PHYSICAL EXAMINATION: On examination, her blood pressure is 129/58 with a pulse of 59, temperature 97.3. She is 93% on room air. General description is an elderly female lying in bed in no distress. RESPIRATORY SYSTEM: Unlabored breathing, clear to auscultation anteriorly. HEART: S1, S2. Regular rate and rhythm. ABDOMEN: Soft. No tenderness. LABS: Hemoglobin 9.2, white count 4.5 BUN of 19, creatinine 0.63. Repeat urine did shows of ESBL E coli. DIAGNOSTIC IMPRESSION AND PLAN: 1. Patient with ESBL Escherichia coli urinary tract infection. Patient currently afebrile. White count is normal. Blood culture has been negative. Recommend keeping the patient on IV Invanz for a total of 7 days peripheral IV of which the patient has received about 3 doses. for a PICC line. 2. Left leg wound. Local wound care with Aquacel Silver dressing. MMODL / IJN: [id number] /
[2018-02-16 07:43] LABS: Anion Gap 4 mmol/L; Blood Urea Nitrogen 23 mg/dL (7-17); Calcium 8.2 mg/dL (8.4-10.2); Carbon Dioxide 24 mmol/L (22-30); Chloride 112 mmol/L (98-107); Glucose 94 mg/dL (74-99); Potassium 4.2 mmol/L (3.5-5.1); Sodium 140 mmol/L (137-145)
[2018-02-16] MEDS: INSULIN ASPART 100 UNIT/ML 1 ML 10 ML VIAL SQ SCH ×4 (08:06→21:51)
[2018-02-16] MEDS: RIFAMPIN 300 MG CAP PO SCH ×2 (08:19→20:44)
[2018-02-16] MEDS: SENNOSIDES 8.6 MG TAB PO SCH ×2 (08:19→20:43)
[2018-02-16] MEDS: FERROUS SULFATE 325 MG TAB PO SCH ×2 (08:20→20:41)
[2018-02-16] MEDS: PANTOPRAZOLE 40 MG TABLET PO SCH (08:20)
[2018-02-16] MEDS: DULoxetine HCL 30 MG CAPSULE.DR PO SCH (08:20)
[2018-02-16] MEDS: MAGNESIUM OXIDE 400 MG TAB PO SCH ×2 (08:20→20:42)
[2018-02-16] MEDS: DOCUSATE 100 MG CAP PO SCH ×2 (08:21→20:41)
[2018-02-16] MEDS: amLODIPine 10 MG TAB PO SCH (08:21)
[2018-02-16] MEDS: ERTAPENEM 1 GM in SODIUM CHLORIDE 0.9% 50 ML IVPB SCH (08:21)
[2018-02-16] MEDS: PREGABALIN 75 MG CAP PO SCH ×3 (08:31→21:55)
[2018-02-16] MEDS: OXYBUTYNIN 10 MG TAB.ER.24 PO SCH (08:31)
[2018-02-16 10:57] LABS: Glucose,Whole Blood 120 mg/dL (75-99)
[2018-02-16] MEDS: NON-FORMULARY DRUG (Amino Acids/Protein Hydrolys [Pro-Stat Supplement] 30 ML) PO SCH ×2 (11:58→20:54)
[2018-02-16] MEDS: MORPHINE SULFATE 2 MG/ML SYRINGE IVP PRN ×2 (15:40→21:55)
[2018-02-16 17:01] LABS: Glucose,Whole Blood 202 mg/dL (75-99)
--- NOTE | 2018-02-16 19:15 | PN ---
PROGRESS NOTE DATE OF SERVICE: 02/16/2018. INTERIM HISTORY: This 67-year-old woman was admitted with acute urinary tract infection with ESBL E coli and Proteus mirabilis. No chest pain. No palpitations. No fever. PHYSICAL EXAM: Alert and oriented x3. Pulse 72, blood pressure 120/54, respiration 16, temperature 98 degrees, pulse ox 98% on room air. HEENT: Conjunctivae normal. NECK: No jugular venous distention. CARDIOVASCULAR: S1, S2. RESPIRATORY: Breath sounds diminished in the bases. No rhonchi, no crackles. ABDOMEN: Soft, nontender. No mass palpable. LEGS: No edema. NERVOUS SYSTEM: No focal deficits. LABS: WBC 4.2, hemoglobin is 8.6. Accu-Cheks noted. ASSESSMENT: 1. Acute urinary tract infection with sepsis with ESBL E coli as well as Proteus mirabilis, present on admission. 2. Change in mental status, acute on chronic metabolic encephalopathy secondary to sepsis. 3. Constipation and abdominal pain, improving. 4. Complicated urinary tract infection. 5. Acute renal failure. 6. Hypertension. 7. Chronic blood-loss anemia. 8. Hyperlipidemia. 9. Diabetes mellitus type 2. 10.Multiple decubitus ulcers and cellulitis in the legs. RECOMMENDATIONS AND DISCUSSION: I recommend to continue current management and symptomatic treatment. Continue with antibiotics. Otherwise continue the rest of medications. Possible PICC line and outpatient followup per Dr. Kendrick. Guarded prognosis. Further recommendations to follow. MMODL / IJN: [id number] /
[2018-02-16] MEDS: HYDROcodone/APAP 5-325MG 1 EACH TAB PO PRN (19:41)
[2018-02-16] MEDS: CALCIUM CARB-VIT D 500MG-200UN 1 EACH TAB PO SCH (20:42)
[2018-02-16] MEDS: POTASSIUM CHLORIDE ER 20 MEQ TAB.ER PO SCH (20:42)
[2018-02-16] MEDS: MULTIVITAMINS, THERA 1 EACH TAB PO SCH (20:42)
[2018-02-16] MEDS: ASCORBIC ACID 500 MG TAB PO SCH (20:43)
[2018-02-16] MEDS: ASPIRIN 81 MG PO SCH (20:44)
[2018-02-16] MEDS: ATORVASTATIN 40 MG TAB PO SCH (20:44)
[2018-02-16] MEDS: NON-FORMULARY DRUG (Biotin [Biotin] 300 MCG) PO SCH (20:54)
[2018-02-16 21:48] LABS: Glucose,Whole Blood 131 mg/dL (75-99)
--- NOTE | 2018-02-16 22:54 | PN ---
PROGRESS NOTE DATE OF SERVICE: 02/16/2018. REASON FOR FOLLOWUP: 1. ESBL E. coli urinary tract infection. 2. Left leg wound. INTERVAL HISTORY: The patient is afebrile. She has been breathing comfortably. Hemodynamically stable. No nausea, vomiting, abdominal pain or any diarrhea. EXAMINATION: Her blood pressure is 125/65 with a pulse of 72, temperature 98. She is 98% on room air. General description is an elderly female lying in bed in no distress. RESPIRATORY SYSTEM: Unlabored breathing. Clear to auscultation anteriorly. HEART: S1, S2. Regular rate and rhythm. ABDOMEN: Soft. No tenderness. Left leg wound is currently dressed up. No obvious drainage on the dressing. LABS: Hemoglobin 8.6, white count of 4.6. BUN of 23, creatinine 0.67. DIAGNOSTIC IMPRESSION AND PLAN: 1. Patient with extended-spectrum beta lactamase Escherichia coli urinary tract infection. incisional catheter remains positive as well. Recommend to discontinue her Coffey catheter and watch for any retention. If none, recommend to finish therapy with IV Invanz for another 3-5 days through a peripheral IV. No need for midline or a PICC line. 2. Left leg wound. Local wound care with Aquacel Silver dressing. MMODL / IJN: [id number] /
[2018-02-17] MEDS: HYDROcodone/APAP 5-325MG 1 EACH TAB PO PRN (02:01)
[2018-02-17] MEDS: MORPHINE SULFATE 2 MG/ML SYRINGE IVP PRN (04:04)
[2018-02-17 07:08] LABS: Glucose,Whole Blood 112 mg/dL (75-99)
[2018-02-17] MEDS: INSULIN ASPART 100 UNIT/ML 1 ML 10 ML VIAL SQ SCH ×2 (07:54→12:59)
[2018-02-17 07:56] LABS: Anisocytosis Slight; Basophils % (A) 0 %; Eosinophils # (A) 0.4 k/uL (0-0.7); Eosinophils % (A) 8 %; HCT 27.6 % (34.0-46.0); Lymphocytes % (A) 46 %; MCH 30.7 pg (25.0-35.0); MCHC 32.7 g/dL (31.0-37.0); MCV 94.1 fL (80.0-100.0); Mean Platelet Volume 7.4; Monocytes # (A) 0.2 k/uL (0-1.0); Monocytes % (A) 5 %; Neutrophils # (A) 1.6 k/uL (1.3-7.7); Neutrophils % (A) 37 %; Platelet Count 156 k/uL (150-450); RBC 2.93 m/uL (3.80-5.40); RDW 16.4 % (11.5-15.5); WBC 4.3 k/uL (3.8-10.6)
[2018-02-17 08:25] LABS: Anion Gap 4 mmol/L; Blood Urea Nitrogen 24 mg/dL (7-17); Calcium 8.3 mg/dL (8.4-10.2); Carbon Dioxide 26 mmol/L (22-30); Chloride 110 mmol/L (98-107); Glucose 100 mg/dL (74-99); Potassium 4.8 mmol/L (3.5-5.1); Sodium 140 mmol/L (137-145)
[2018-02-17] MEDS: PANTOPRAZOLE 40 MG TABLET PO SCH (10:20)
[2018-02-17] MEDS: amLODIPine 10 MG TAB PO SCH (10:20)
[2018-02-17] MEDS: DULoxetine HCL 30 MG CAPSULE.DR PO SCH (10:21)
[2018-02-17] MEDS: ERTAPENEM 1 GM in SODIUM CHLORIDE 0.9% 50 ML IVPB SCH (10:21)
[2018-02-17] MEDS: FERROUS SULFATE 325 MG TAB PO SCH (10:21)
[2018-02-17] MEDS: NON-FORMULARY DRUG (Amino Acids/Protein Hydrolys [Pro-Stat Supplement] 30 ML) PO SCH (10:21)
[2018-02-17] MEDS: DOCUSATE 100 MG CAP PO SCH (10:21)
[2018-02-17] MEDS: RIFAMPIN 300 MG CAP PO SCH (10:22)
[2018-02-17] MEDS: PREGABALIN 75 MG CAP PO SCH (10:22)
[2018-02-17] MEDS: OXYBUTYNIN 10 MG TAB.ER.24 PO SCH (10:22)
[2018-02-17] MEDS: SENNOSIDES 8.6 MG TAB PO SCH (10:22)
[2018-02-17] MEDS: MAGNESIUM OXIDE 400 MG TAB PO SCH (10:22)
--- NOTE | 2018-02-17 10:35 | P.DS ---
Providers Date of admission: 02/10/18 23:19 Attending physician: Haritha Lara Consults: 02/12/18 19:03 Consult Physician Routine Consulting Provider: Merary Kendrick Consult Reason/Comments: Nonhealing wounds on left leg, UTI Do you want consulting provider notified?: Yes, Notify in am Primary care physician: [facility] Course: Final diagnosis Acute UTI with sepsis with ESBL E. coli as well as Proteus mirabilis present on admission Change in mental status acute on chronic metabolic considerably secondary to sepsis Constipation and abdominal pain improving Complicated UTI Acute renal failure Hypertension Chronic blood loss anemia Hyperlipidemia Diabetes mellitus type 2 Multiple decubitus ulcers and cellulitis in the legs History of present illness this 67-year-old woman with a past medical history multiple medical problems was admitted with the UTI sepsis with ESBL E. coli and change in mental status. Patient was given broad-spectrum IV antibiotics. Dr. Kendrick from infectious disease saw the patient. Medications were regulated. Patient also had constipation. Patient was given multiple medications. Patient improved significantly. Patient is stable for discharge but overall prognosis remains extremely guarded because of multiple Compass medical issues as mentioned earlier. Then taken 35 minutes. On exam vitals are stable. Cardio S1 and S2 normal. Respirator system clear to auscultation. Abdomen soft nontender. Nervous system system diffusely weak. Would suggest holding pain medications and the sedatives if the patient is drowsy. Patient is on multiple laxatives hold if the patient is having diarrhea. Patient Condition at Discharge: Stable Plan - Discharge Summary Discharge Rx Participant: No New Discharge Prescriptions: New Docusate [Colace] 100 mg PO BID cap Potassium Chloride ER [K-Dur 20] 20 meq PO HS tab.er.prt Continue Atorvastatin [Lipitor] 40 mg PO HS Polyethylene Glycol 3350 [Miralax] 17 gm PO DAILY Aspirin 81 mg PO HS Sennosides [Senokot] 17.2 mg PO BID amLODIPine [Norvasc] 10 mg PO DAILY Acetaminophen Tab [Tylenol] 650 mg PO Q6H PRN PRN Reason: Fever And/ Or Pain Bisacodyl [Dulcolax] 10 mg RECTAL DAILY PRN PRN Reason: Constipation rOPINIRole HCL [Requip] 0.5 mg PO HS Oxybutynin Chloride [Oxybutynin Chloride ER] 10 mg PO DAILY Multivitamins, Thera [Multivitamin (formulary)] 1 tab PO HS Methocarbamol [Robaxin] 1,000 mg PO QID Pregabalin [Lyrica] 75 mg PO TID INSULIN LISPRO (humaLOG) [humaLOG] See Protocol SQ ACHS DULoxetine HCL [Cymbalta] 30 mg PO DAILY Calcium Carbonate/Vitamin D3 [Calcium 500-Vit D3 200 Tablet] 1 tab PO HS Biotin 300 mcg PO HS Amino Acids/Protein Hydrolys [Pro-Stat Supplement] 30 ml PO BID Ascorbic Acid [Vitamin C] 250 mg PO HS Magnesium Oxide [Mag-Ox] 400 mg PO BID metFORMIN HCL [Glucophage] 500 mg PO BID Omeprazole 20 mg PO DAILY SILVER sulfADIAZINE Cream [Silvadene 1% Cream] 1 applic TOPICAL HS Changed Ferrous Sulfate [Iron (65 MG Elemental)] 325 mg PO DAILY #1 HYDROmorphone [Dilaudid] 4 mg PO Q8H PRN #1 PRN Reason: Pain Discontinued Morphine Sulfate ER [Ms Contin] 15 mg PO Q12HR Discharge Medication List Atorvastatin [Lipitor] 40 mg PO HS 08/30/15 [History] Polyethylene Glycol 3350 [Miralax] 17 gm PO DAILY 06/29/16 [History] Aspirin 81 mg PO HS 04/20/17 [History] Sennosides [Senokot] 17.2 mg PO BID 05/22/17 [History] amLODIPine [Norvasc] 10 mg PO DAILY 05/22/17 [History] Acetaminophen Tab [Tylenol] 650 mg PO Q6H PRN 07/29/17 [History] Bisacodyl [Dulcolax] 10 mg RECTAL DAILY PRN 11/25/17 [History] Biotin 300 mcg PO HS 01/05/18 [History] Calcium Carbonate/Vitamin D3 [Calcium 500-Vit D3 200 Tablet] 1 tab PO HS [History] DULoxetine HCL [Cymbalta] 30 mg PO DAILY 01/05/18 [History] INSULIN LISPRO (humaLOG) [humaLOG] See Protocol SQ ACHS 01/05/18 [History] Methocarbamol [Robaxin] 1,000 mg PO QID 01/05/18 [History] Multivitamins, Thera [Multivitamin (formulary)] 1 tab PO HS 01/05/18 [History] Oxybutynin Chloride [Oxybutynin Chloride ER] 10 mg PO DAILY 01/05/18 [History] Pregabalin [Lyrica] 75 mg PO TID 01/05/18 [History] rOPINIRole HCL [Requip] 0.5 mg PO HS 01/05/18 [History] Amino Acids/Protein Hydrolys [Pro-Stat Supplement] 30 ml PO BID 02/13/18 [ History] Ascorbic Acid [Vitamin C] 250 mg PO HS 02/13/18 [History] Magnesium Oxide [Mag-Ox] 400 mg PO BID 02/13/18 [History] Omeprazole 20 mg PO DAILY 02/13/18 [History] SILVER sulfADIAZINE Cream [Silvadene 1% Cream] 1 applic TOPICAL HS 02/13/18 [ History] metFORMIN HCL [Glucophage] 500 mg PO BID 02/13/18 [History] Docusate [Colace] 100 mg PO BID cap 02/17/18 [Rx] Ferrous Sulfate [Iron (65 MG Elemental)] 325 mg PO DAILY #1 02/17/18 [Rx] HYDROmorphone [Dilaudid] 4 mg PO Q8H PRN #1 02/17/18 [Rx] Potassium Chloride ER [K-Dur 20] 20 meq PO HS tab.er.prt 02/17/18 [Rx] Follow up Appointment(s)/Referral(s): Carlo Frederick MD [Primary Care Provider] - 1-2 days Activity/Diet/Wound Care/Special Instructions: Diet cardiac Activity Limited follow-up Hold sedatives if drowsy Hold the laxities if or diarrhea Follow-up with Dr. kendrick outpatient Antibiotics per Dr. Kendrick
[2018-02-17 11:41] LABS: Glucose,Whole Blood 132 mg/dL (75-99)
[2018-02-17] MEDS: ENOXAPARIN 30 MG/0.3 ML SYRINGE SQ SCH (13:19)
[2018-02-17 15:08] VITALS: BP 127/57; PULSE 60; RESP 16; TEMP 98.3
--- NOTE | 2018-02-17 16:28 | PN ---
PROGRESS NOTE DATE OF SERVICE: 02/17/2018. REASON FOR FOLLOWUP: ESBL E coli urinary tract infection. INTERVAL HISTORY: The patient is currently afebrile. She is breathing comfortably. Denies having any chest pain or shortness of breath or cough. No abdominal pain. No diarrhea. No pain to the left leg area. EXAMINATION: Blood pressure 127/57 with a pulse of 68, temperature 98.3. She is 97% on room air. General description is an elderly female, lying in bed in no distress. RESPIRATORY SYSTEM: Unlabored breathing. Clear to auscultation anteriorly. HEART: S1, S2. Regular rate and rhythm. ABDOMEN: Soft, no tenderness. Left leg is currently dressed up. No obvious drainage on the dressing. LABS: Hemoglobin 9, white count 4.3, BUN of 24, creatinine 0.61. DIAGNOSTIC IMPRESSION AND PLAN: 1. Patient ESBL E coli urinary tract infection, possible cystitis infection. She will continue with Invanz 1 g daily through the peripheral IV for another 3 days to finish course of therapy. 2. Left leg wound. Continue local wound care with Aquacel Silver dressing. MMODL / IJN: [id number] /
--- NOTE | 2018-02-20 20:13 | CDI ---
Documentation Clarification Form Date: 02/20/18 From: JOSE Bernard Phone: If you have question, contact Shweta Evans, [employer]er at M-F 8:30 am to 6pm Admit Date: 02/10/2018 11:19:00 PM Patient Name: Rain Lang Visit Number: [id number] Discharge Date: 02/17/18 ATTENTION: The Clinical Documentation Specialists (CDI) and [facility] Coding Staff appreciate your assistance in clarifying documentation. Please respond to the clarification below the line at the bottom and electronically sign. The CDI & [facility] Coding staff will review the response and follow-up if needed. Please note: Queries are made part of the Legal Health Record. If you have any questions, please contact the author of this message via ITS. Dr. Haritha Lara Ms Lang was admitted with metabolic encephalopathy due to UTI. She is found to have sepsis. She also had documented acute renal failure and bilateral leg cellulitis. Severe sepsis is linked to such conditions as, but not limited to, hypoperfusion , hyperbilirubinemia, lactic acidosis, encephalopathy, thrombocytopenia, hypoxia and hypotension, ect., as an acute organ dysfunction. In your professional opinion, please clarify if these diagnosis along with the sepsis signify severe sepsis. Please clarify: Severe sepsis ruled in Severe sepsis ruled out Other, please specify Unable to determine Thank you so much for your time. Unable to determine MTDD
== END 2018-02-17 15:46 | DRG 871 ==
LOC: EC 18:24 → 5MS5E 23:19
PROVIDERS: ADMIT Hospitalist; ATTEND Hospitalist
DX: A41.51 Sepsis due to Escherichia coli [E. coli] (principal); G93.41 Metabolic encephalopathy; N39.0 Urinary tract infection, site not specified; L03.116 Cellulitis of left lower limb; L03.115 Cellulitis of right lower limb; N17.9 Acute kidney failure, unspecified; I47.1 Supraventricular tachycardia; A41.89 Other specified sepsis; R65.20 Severe sepsis without septic shock; I48.91 Unspecified atrial fibrillation; F41.9 Anxiety disorder, unspecified; F32.9 Major depressive disorder, single episode, unspecified; M79.7 Fibromyalgia; E78.5 Hyperlipidemia, unspecified; E11.22 Type 2 diabetes mellitus with diabetic chronic kidney disease; E66.01 Morbid (severe) obesity due to excess calories; E11.42 Type 2 diabetes mellitus with diabetic polyneuropathy; L89.619 Pressure ulcer of right heel, unspecified stage; I12.9 Hypertensive chronic kidney disease with stage 1 through stage 4 chronic kidney disease, or unspecified chronic kidney disease; E86.0 Dehydration; N18.3 Chronic kidney disease, stage 3 (moderate); E11.628 Type 2 diabetes mellitus with other skin complications; F03.90 Unspecified dementia, unspecified severity, without behavioral disturbance, psychotic disturbance, mood disturbance, and anxiety; D50.0 Iron deficiency anemia secondary to blood loss (chronic); G47.30 Sleep apnea, unspecified; I11.9 Hypertensive heart disease without heart failure; H93.13 Tinnitus, bilateral; M54.5 Low back pain; G89.29 Other chronic pain; R13.10 Dysphagia, unspecified; K59.00 Constipation, unspecified; Z16.12 Extended spectrum beta lactamase (ESBL) resistance; Z96.641 Presence of right artificial hip joint; Z87.891 Personal history of nicotine dependence; Z86.718 Personal history of other venous thrombosis and embolism; Z68.38 Body mass index [BMI] 38.0-38.9, adult; Z86.14 Personal history of Methicillin resistant Staphylococcus aureus infection; Z88.7 Allergy status to serum and vaccine; Z91.81 History of falling; Z87.01 Personal history of pneumonia (recurrent); Z83.3 Family history of diabetes mellitus; Z82.49 Family history of ischemic heart disease and other diseases of the circulatory system; Z98.84 Bariatric surgery status; Z79.82 Long term (current) use of aspirin; Z79.899 Other long term (current) drug therapy; Z88.0 Allergy status to penicillin; Z88.8 Allergy status to other drugs, medicaments and biological substances; Z88.4 Allergy status to anesthetic agent; Z91.040 Latex allergy status; Z91.010 Allergy to peanuts; Z87.11 Personal history of peptic ulcer disease
CPT/HCPCS: 36415; 70450; 71045; 74176; 80048; 80053; 81001; 82140; 82550; 82553; 82803; 83036; 83605; 84484; 85025; 87040; 87077; 87086; 87186; 93005; 96365; 99285

== ENCOUNTER → 2018-03-16 | Outpatient (CLI) | payer MEDICARE, OTHER ==
--- NOTE | 2018-03-16 12:11 | MM ---
Reason for exam: clinical finding. History: Patient is postmenopausal. Physical Findings: Nurse did not find any significant physical abnormalities on exam. [facility] Diagnostic Mammo w CAD DAYANARA Bilateral CC and MLO view(s) were taken. The breast tissue is heterogeneously dense. This may lower the sensitivity of mammography. There are benign appearing vascular calcifications bilaterally. There is no discrete abnormality. These results were verbally communicated with the patient and result sheet given to the patient on 03/16/18. ASSESSMENT: Benign, BI-RAD 2 RECOMMENDATION: Routine screening mammogram of both breasts in 1 year. Manage patient on a clinical basis.
== END ==
LOC: RADMAMWWP 10:35
PROVIDERS: ATTEND Internal Medicine
DX: N64.4 Mastodynia (principal); N63.10 Unspecified lump in the right breast, unspecified quadrant; N63.20 Unspecified lump in the left breast, unspecified quadrant
CPT/HCPCS: 77066

== ENCOUNTER 2018-06-10 06:02 | Inpatient (IN) | payer MEDICARE, OTHER ==
[2018-06-10] MEDS ORDERED: SODIUM CHLORIDE 0.9% 1,000 ML IV STA ×3 (06:09→06:33)
--- NOTE | 2018-06-10 06:11 | ED ---
Altered Mental Status HPI - General Source: RN notes reviewed, old records reviewed Mode of arrival: EMS Limitations: altered mental status, physical limitation - History of Present Illness MD Complaint: altered mental status, confusion, decreased responsiveness, weakness -: hour(s) Severity: severe Consistency of Symptoms: getting worse, constant Context: recent fever Associated Symptoms: denies other symptoms (Unable to provide) <Gustavo Barakat - Last Filed: 06/10/18 06:34> <Everett Metzger - Last Filed: 06/10/18 09:10> - General Stated Complaint: Altered Mental Status Time Seen by Provider: 06/10/18 06:09 - History of Present Illness Initial Comments: This is a 59-year-old female the ER with fever and altered mental status. Patient is unable to give history history obtained from EMS as well as patient' s chart and transfer paperwork (Gustavo Barakat) - Related Data Home Medications Medication Instructions Recorded Confirmed Atorvastatin [Lipitor] 40 mg PO HS 08/30/15 02/13/18 Polyethylene Glycol 3350 [Miralax] 17 gm PO DAILY 06/29/16 02/13/18 Aspirin 81 mg PO HS 04/20/17 02/13/18 Sennosides [Senokot] 17.2 mg PO BID 05/22/17 02/13/18 amLODIPine [Norvasc] 10 mg PO DAILY 05/22/17 02/13/18 Acetaminophen Tab [Tylenol] 650 mg PO Q6H PRN 07/29/17 02/13/18 Bisacodyl [Dulcolax] 10 mg RECTAL DAILY PRN 11/25/17 02/13/18 Biotin 300 mcg PO HS 01/05/18 02/13/18 Calcium Carbonate/Vitamin D3 1 tab PO HS 01/05/18 02/13/18 [Calcium 500-Vit D3 200 Tablet] DULoxetine HCL [Cymbalta] 30 mg PO DAILY 01/05/18 02/13/18 INSULIN LISPRO (humaLOG) [humaLOG] See Protocol SQ ACHS 01/05/18 02/13/18 Methocarbamol [Robaxin] 1,000 mg PO QID 01/05/18 02/13/18 Multivitamins, Thera [Multivitamin 1 tab PO HS 01/05/18 02/13/18 (formulary)] Oxybutynin Chloride [Oxybutynin 10 mg PO DAILY 01/05/18 02/13/18 Chloride ER] Pregabalin [Lyrica] 75 mg PO TID 01/05/18 02/13/18 rOPINIRole HCL [Requip] 0.5 mg PO HS 01/05/18 02/13/18 Amino Acids/Protein Hydrolys 30 ml PO BID 02/13/18 02/13/18 [Pro-Stat Supplement] Ascorbic Acid [Vitamin C] 250 mg PO HS 02/13/18 02/13/18 Magnesium Oxide [Mag-Ox] 400 mg PO BID 02/13/18 02/13/18 Omeprazole 20 mg PO DAILY 02/13/18 02/13/18 SILVER sulfADIAZINE Cream 1 applic TOPICAL HS 02/13/18 02/13/18 [Silvadene 1% Cream] metFORMIN HCL [Glucophage] 500 mg PO BID 02/13/18 02/13/18 Previous Rx's Medication Instructions Recorded Docusate [Colace] 100 mg PO BID cap 02/17/18 Ertapenem [INVanz] 1 gm IVPB Q24H #3 bag 02/17/18 Ferrous Sulfate [Iron (65 MG 325 mg PO DAILY #1 02/17/18 Elemental)] HYDROmorphone [Dilaudid] 4 mg PO Q8H PRN #1 02/17/18 Potassium Chloride ER [K-Dur 20] 20 meq PO HS tab.er.prt 02/17/18 Allergies Allergy/AdvReac Type Severity Reaction Status Date / Time adhesive tape Allergy Severe Rash/Hives Verified 06/10/18 06:16 cephalexin monohydrate Allergy Severe Rash/Hives Verified 06/10/18 06:16 [From Keflex] influenza virus vaccine, Allergy Severe Anaphylaxis Verified 06/10/18 06:16 specific [influenza virus vacc,specific] latex Allergy Severe Rash/Hives Verified 06/10/18 06:16 peanut Allergy Severe Anaphylaxis Verified 06/10/18 06:16 Penicillins Allergy Severe Swelling Verified 06/10/18 06:16 tetanus toxoid, adsorbed Allergy Intermediate Rash/Hives Verified 06/10/18 06:16 Influenza Virus Vaccines Allergy Anaphylaxis Verified 06/10/18 06:16 Review of Systems ROS Other: All systems not noted in ROS Statement are negative. <Gustavo Barakat B - Last Filed: 06/10/18 06:34> ROS Other: All systems not noted in ROS Statement are negative. <Everett Metzger - Last Filed: 06/10/18 09:10> ROS Statement: Those systems with pertinent positive or pertinent negative responses have been documented in the HPI. Past Medical History Past Medical History: Atrial Fibrillation, Diabetes Mellitus, Deep Vein Thrombosis (DVT), Fibromyalgia, GI Bleed, Hyperlipidemia, Hypertension, Pneumonia, Renal Disease, Skin Disorder Additional Past Medical History / Comment(s): Chronic blood loss anemia, hypertension, hyperlipidemia, fibromyalgia, chronic stage III renal failure, morbid obesity, DVT left lower leg with a previous IVC filter in place, dermatitis, gastric ulcer with a previous Clinton-en-Y gastric bypass surgery, chronic lower back pain, morbid obesity, previous history of severe sepsis w/ septic shock including septicemia with MRSA, SVT, DM type 2, hemorrhoids, cellulitis of left lower extremity, dysphagia, falls, muscle weakness, pneumonia , sleep apnea, bilateral tinnitus, atrial fibrillation, UTI. Left eye contusion/ left lower leg laceration - surgically repaired, Right heel pressure ulcer - healed, peripheral neuropathy (bilateral hands and feet), migraines, eczema, sinus problems, lower GI bleed. 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; Urine-VRE & ESBL Past Surgical History: Adenoidectomy, Bariatric Surgery, Cholecystectomy, Joint Replacement, Tonsillectomy, Tubal Ligation Additional Past Surgical History / Comment(s): Gastric bypass, Clinton-en-Y in 2003 , [place] filter placement in 2000, teeth extraction, colonoscopy, EGD, hemorrhoidectomy, panniculectomy, D&C, hystoscopy x 2, LT KNEE replaced 2005- MRSA infection-hardware removed and cemented then replaced again, L hip repair with screw and total R hip REPLACEMENT, bilateral heel spurs removed, bilateral carpal tunnel releases, D&Cs, infusaport insertion since removed. Past Anesthesia/Blood Transfusion Reactions: Blood Transfusion Reaction Additional Past Anesthesia/Blood Transfusion Reaction / Comment(s): Per chart unspecified reaction. Past Psychological History: Anxiety, Depression Additional Psychological History / Comment(s): Patient is now in extended care. No longer live independently. Does not have any significant family. Was a tobacco smoker stopping several years ago. She has history of smoking 1.5-2 pack per day for 27 years and quit in 1993. She drinks alcohol rarely. 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 No animal exposures. Smoking Status: Former smoker Past Alcohol Use History: None Reported Additional Past Alcohol Use History / Comment(s): She has history of smoking 2 packs per day for 27 years and quit in 1993. She drinks alcohol rarely. 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 Past Drug Use History: Marijuana Additional Drug Use History / Comment(s): . - Past Family History Father Family Medical History: Myocardial Infarction (UT) Additional Family Medical History / Comment(s): AT AGE 46-UT Mother Family Medical History: Diabetes Mellitus Additional Family Medical History / Comment(s): AT AGE 66 FROM COMPLICATIONS FROM DM Sister(s) Family Medical History: Diabetes Mellitus Brother(s) Family Medical History: Diabetes Mellitus Daughter(s) Family Medical History: Cancer Son(s) Family Medical History: No Reported History <Gustavo Barakat - Last Filed: 06/10/18 06:34> General Exam Limitations: altered mental status General appearance: alert, in no apparent distress Head exam: Present: atraumatic, normocephalic, normal inspection Eye exam: Present: normal appearance, PERRL, EOMI. Absent: scleral icterus, conjunctival injection, periorbital swelling ENT exam: Present: normal exam, mucous membranes dry Neck exam: Present: normal inspection. Absent: tenderness, meningismus, lymphadenopathy Respiratory exam: Present: normal lung sounds bilaterally. Absent: respiratory distress, wheezes, rales, rhonchi, stridor Cardiovascular Exam: Present: regular rate, normal rhythm, normal heart sounds. Absent: systolic murmur, diastolic murmur, rubs, gallop, clicks GI/Abdominal exam: Present: soft, normal bowel sounds. Absent: distended, tenderness, guarding, rebound, rigid Extremities exam: Present: normal inspection, full ROM, normal capillary refill. Absent: tenderness, pedal edema, joint swelling, calf tenderness Back exam: Present: normal inspection Neurological exam: Present: alert, oriented X3, CN II-XII intact Psychiatric exam: Present: normal affect, normal mood Skin exam: Present: warm, dry, intact, normal color. Absent: rash <Gustavo Barakat - Last Filed: 06/10/18 06:34> Course <Gustavo Barakat - Last Filed: 06/10/18 06:34> <Everett Metzger - Last Filed: 06/10/18 09:10> Vital Signs 06/10/18 06/10/18 06:08 08:47 Temperature 102.3 F H 100.1 F H Pulse Rate 124 H 105 H Respiratory 26 H 13 Rate Blood Pressure 164/113 139/68 O2 Sat by Pulse 100 100 Oximetry - Reevaluation(s) Reevaluation #1: 06/10/18 09:08 The patient was endorsed me at our shift change pending labs and x-rays. Imaging showed no definite acute processes lab work was significant for evidence of dehydration. UA does not at this time show evidence of UTI. Reexamination patient reveals she has evidence of dehydration with dry oral cavity additionally she does have a wound on the left lower extremity does have a drainage and foul smell to it this may be the source of the fever. The elevated lactic acid is likely secondary to dehydration. Patient does have adequate oral fluids that are ordered. She did receive 500 mL of normal saline prior to arrival by EMS. (Everett Metzger) Medical Decision Making - EKG Data -: EKG Interpreted by Me (EKG shows sinus tachycardia rate of 124, ID [id number], QRS 60, QTc 460) <Gustavo Barakat - Last Filed: 06/10/18 06:34> - Lab Data Result diagrams: 06/10/18 07:08 06/10/18 07:08 <Everett Metzger - Last Filed: 06/10/18 09:10> - Medical Decision Making 67 female the ER for evaluation, severe altered mental status with fever. Patient be admitted for IV antibiotics monitoring of cardiopulmonary status ( Gustavo Barakat) - Lab Data Lab Results 06/10/18 06/10/18 06/10/18 Range/Units 06:16 07:08 07:08 WBC 6.5 (3.8-10.6) k/uL RBC 3.56 L (3.80-5.40) m/uL Hgb 10.3 L (11.4-16.0) gm/dL Hct 32.8 L (34.0-46.0) % MCV 92.2 (80.0-100.0) fL MCH 28.9 (25.0-35.0) pg MCHC 31.3 (31.0-37.0) g/dL RDW 15.3 (11.5-15.5) % Plt Count 226 (150-450) k/uL Neutrophils % 87 % Lymphocytes % 6 % Monocytes % 3 % Eosinophils % 2 % Basophils % 0 % Neutrophils # 5.6 (1.3-7.7) k/uL Lymphocytes # 0.4 L (1.0-4.8) k/uL Monocytes # 0.2 (0-1.0) k/uL Eosinophils # 0.2 (0-0.7) k/uL Basophils # 0.0 (0-0.2) k/uL Hypochromasia Moderate PT 10.4 (9.0-12.0) sec INR 1.1 (<1.2) APTT 25.2 (22.0-30.0) sec Sodium (137-145) mmol/L Potassium (3.5-5.1) mmol/L Chloride (98-107) mmol/L Carbon Dioxide (22-30) mmol/L Anion Gap mmol/L BUN (7-17) mg/dL Creatinine (0.52-1.04) mg/dL Est GFR (CKD-EPI)AfAm (>60 ml/min/1.73 sqM) Est GFR (CKD-EPI)NonAf (>60 ml/min/1.73 sqM) Glucose (74-99) mg/dL POC Glucose (mg/dL) 139 H (75-99) mg/dL POC Glu Dental Service Technician ID Nae Renee Plasma Lactic Acid Maximus (0.7-2.0) mmol/L Calcium (8.4-10.2) mg/dL Phosphorus (2.5-4.5) mg/dL Magnesium (1.6-2.3) mg/dL Total Bilirubin (0.2-1.3) mg/dL AST (14-36) U/L ALT (9-52) U/L Alkaline Phosphatase (38-126) U/L Total Creatine Kinase (30-135) U/L CK-MB (CK-2) (0.0-2.4) ng/mL CK-MB (CK-2) Rel Index Troponin I (0.000-0.034) ng/mL Total Protein (6.3-8.2) g/dL Albumin (3.5-5.0) g/dL Urine Color Urine Appearance (Clear) Urine pH (5.0-8.0) Ur Specific [place] (1.001-1.035) Urine Protein (Negative) Urine Glucose (UA) (Negative) Urine Ketones (Negative) Urine Blood (Negative) Urine Nitrite (Negative) Urine Bilirubin (Negative) Urine Urobilinogen (<2.0) mg/dL Ur Leukocyte Esterase (Negative) Urine RBC (0-5) /hpf Urine WBC (0-5) /hpf Ur Squamous Epith Cells (0-4) /hpf Urine Bacteria (None) /hpf Influenza Type A RNA (Not Detectd) Influenza Type B (PCR) (Not Detectd) 06/10/18 06/10/18 06/10/18 Range/Units 07:08 07:08 07:08 WBC (3.8-10.6) k/uL RBC (3.80-5.40) m/uL Hgb (11.4-16.0) gm/dL Hct (34.0-46.0) % MCV (80.0-100.0) fL MCH (25.0-35.0) pg MCHC (31.0-37.0) g/dL RDW (11.5-15.5) % Plt Count (150-450) k/uL Neutrophils % % Lymphocytes % % Monocytes % % Eosinophils % % Basophils % % Neutrophils # (1.3-7.7) k/uL Lymphocytes # (1.0-4.8) k/uL Monocytes # (0-1.0) k/uL Eosinophils # (0-0.7) k/uL Basophils # (0-0.2) k/uL Hypochromasia PT (9.0-12.0) sec INR (<1.2) APTT (22.0-30.0) sec Sodium 145 (137-145) mmol/L Potassium 4.8 (3.5-5.1) mmol/L Chloride 115 H (98-107) mmol/L Carbon Dioxide 23 (22-30) mmol/L Anion Gap 7 mmol/L BUN 31 H (7-17) mg/dL Creatinine 0.75 (0.52-1.04) mg/dL Est GFR (CKD-EPI)AfAm >90 (>60 ml/min/1.73 sqM) Est GFR (CKD-EPI)NonAf 82 (>60 ml/min/1.73 sqM) Glucose 137 H (74-99) mg/dL POC Glucose (mg/dL) (75-99) mg/dL POC Glu Dental Service Technician ID Plasma Lactic Acid Maximus 2.1 H* (0.7-2.0) mmol/L Calcium 8.9 (8.4-10.2) mg/dL Phosphorus 5.0 H (2.5-4.5) mg/dL Magnesium 1.9 (1.6-2.3) mg/dL Total Bilirubin 0.3 (0.2-1.3) mg/dL AST 23 (14-36) U/L ALT 18 (9-52) U/L Alkaline Phosphatase 135 H (38-126) U/L Total Creatine Kinase 37 (30-135) U/L CK-MB (CK-2) 1.4 (0.0-2.4) ng/mL CK-MB (CK-2) Rel Index 3.8 Troponin I <0.012 (0.000-0.034) ng/mL Total Protein 7.4 (6.3-8.2) g/dL Albumin 3.2 L (3.5-5.0) g/dL Urine Color Urine Appearance (Clear) Urine pH (5.0-8.0) Ur Specific [place] (1.001-1.035) Urine Protein (Negative) Urine Glucose (UA) (Negative) Urine Ketones (Negative) Urine Blood (Negative) Urine Nitrite (Negative) Urine Bilirubin (Negative) Urine Urobilinogen (<2.0) mg/dL Ur Leukocyte Esterase (Negative) Urine RBC (0-5) /hpf Urine WBC (0-5) /hpf Ur Squamous Epith Cells (0-4) /hpf Urine Bacteria (None) /hpf Influenza Type A RNA (Not Detectd) Influenza Type B (PCR) (Not Detectd) 06/10/18 06/10/18 Range/Units 08:20 08:25 WBC (3.8-10.6) k/uL RBC (3.80-5.40) m/uL Hgb (11.4-16.0) gm/dL Hct (34.0-46.0) % MCV (80.0-100.0) fL MCH (25.0-35.0) pg MCHC (31.0-37.0) g/dL RDW (11.5-15.5) % Plt Count (150-450) k/uL Neutrophils % % Lymphocytes % % Monocytes % % Eosinophils % % Basophils % % Neutrophils # (1.3-7.7) k/uL Lymphocytes # (1.0-4.8) k/uL Monocytes # (0-1.0) k/uL Eosinophils # (0-0.7) k/uL Basophils # (0-0.2) k/uL Hypochromasia PT (9.0-12.0) sec INR (<1.2) APTT (22.0-30.0) sec Sodium (137-145) mmol/L Potassium (3.5-5.1) mmol/L Chloride (98-107) mmol/L Carbon Dioxide (22-30) mmol/L Anion Gap mmol/L BUN (7-17) mg/dL Creatinine (0.52-1.04) mg/dL Est GFR (CKD-EPI)AfAm (>60 ml/min/1.73 sqM) Est GFR (CKD-EPI)NonAf (>60 ml/min/1.73 sqM) Glucose (74-99) mg/dL POC Glucose (mg/dL) (75-99) mg/dL POC Glu Dental Service Technician ID Plasma Lactic Acid Maximus (0.7-2.0) mmol/L Calcium (8.4-10.2) mg/dL Phosphorus (2.5-4.5) mg/dL Magnesium (1.6-2.3) mg/dL Total Bilirubin (0.2-1.3) mg/dL AST (14-36) U/L ALT (9-52) U/L Alkaline Phosphatase (38-126) U/L Total Creatine Kinase (30-135) U/L CK-MB (CK-2) (0.0-2.4) ng/mL CK-MB (CK-2) Rel Index Troponin I (0.000-0.034) ng/mL Total Protein (6.3-8.2) g/dL Albumin (3.5-5.0) g/dL Urine Color Yellow Urine Appearance Clear (Clear) Urine pH 6.0 (5.0-8.0) Ur Specific [place] 1.009 (1.001-1.035) Urine Protein Negative (Negative) Urine Glucose (UA) Negative (Negative) Urine Ketones Negative (Negative) Urine Blood Negative (Negative) Urine Nitrite Negative (Negative) Urine Bilirubin Negative (Negative) Urine Urobilinogen <2.0 (<2.0) mg/dL Ur Leukocyte Esterase Small H (Negative) Urine RBC 1 (0-5) /hpf Urine WBC 11 H (0-5) /hpf Ur Squamous Epith Cells <1 (0-4) /hpf Urine Bacteria Rare H (None) /hpf Influenza Type A RNA Not Detected (Not Detectd) Influenza Type B (PCR) Not Detected (Not Detectd) Critical Care Time Critical Care Time: Yes Total Critical Care Time: 31 <Gustavo Barakat - Last Filed: 06/10/18 06:34> Disposition <Gustavo Barakat - Last Filed: 06/10/18 06:34> <Everett Metzger - Last Filed: 06/10/18 09:10> Clinical Impression: Confusion, Altered mental status, Fever, Cellulitis and abscess of left leg, Dehydration Disposition: ADMITTED IP TO THIS HOSP Condition: Serious Referrals: Carlo Frederick MD [Primary Care Provider] - 1-2 days
[2018-06-10] MEDS ORDERED: ACETAMINOPHEN IV (For NPO) 1,000 MG in EMPTY BAG 1 BAG IVPB STA (06:33)
[2018-06-10] MEDS ORDERED: IBUPROFEN IV 800 MG in SODIUM CHLORIDE 0.9% 250 ML IV ONE (06:33)
[2018-06-10 06:36] LABS: Glucose,Whole Blood 139 mg/dL (75-99)
[2018-06-10] MEDS ORDERED: LEVOFLOXACIN 750MG-D5W PMX 750 MG in DEXTROSE/WATER 1 150ML.BAG IVPB STA (07:05)
[2018-06-10] MEDS ORDERED: VANCOMYCIN IV PER PHARMACY 1 EACH MISC MISCELLANE PRN (07:18)
[2018-06-10 07:24] LABS: Basophils % (A) 0 %; Eosinophils # (A) 0.2 k/uL (0-0.7); Eosinophils % (A) 2 %; HCT 32.8 % (34.0-46.0); HGB 10.3 gm/dL (11.4-16.0); Hypochromasia Moderate; Lymphocytes # (A) 0.4 k/uL (1.0-4.8); Lymphocytes % (A) 6 %; MCH 28.9 pg (25.0-35.0); MCHC 31.3 g/dL (31.0-37.0); MCV 92.2 fL (80.0-100.0); Monocytes # (A) 0.2 k/uL (0-1.0); Monocytes % (A) 3 %; Neutrophils # (A) 5.6 k/uL (1.3-7.7); Neutrophils % (A) 87 %; Platelet Count 226 k/uL (150-450); RBC 3.56 m/uL (3.80-5.40); RDW 15.3 % (11.5-15.5); WBC 6.5 k/uL (3.8-10.6)
[2018-06-10 07:36] LABS: ALT 18 U/L (9-52); AST 23 U/L (14-36); Albumin 3.2 g/dL (3.5-5.0); Alkaline Phosphatase 135 U/L (38-126); Anion Gap 7 mmol/L; Blood Urea Nitrogen 31 mg/dL (7-17); Calcium 8.9 mg/dL (8.4-10.2); Carbon Dioxide 23 mmol/L (22-30); Chloride 115 mmol/L (98-107); Glucose 137 mg/dL (74-99); INR 1.1 (<1.2); Magnesium 1.9 mg/dL (1.6-2.3); Partial Thromboplastin Time 25.2 sec (22.0-30.0); Potassium 4.8 mmol/L (3.5-5.1); Prothrombin Time 10.4 sec (9.0-12.0); Sodium 145 mmol/L (137-145); Total Bilirubin 0.3 mg/dL (0.2-1.3); Total Protein 7.4 g/dL (6.3-8.2)
[2018-06-10] MEDS ORDERED: VANCOMYCIN 1,750 MG in SODIUM CHLORIDE 0.9% 500 ML 500 ML IVPB STA (07:37)
--- NOTE | 2018-06-10 07:41 | CT ---
EXAMINATION TYPE: CT brain wo con DATE OF EXAM: 06/10/2018 COMPARISON: 02/10/2018 HISTORY: Poor historian. Pain CT DLP: 1842.4 mGycm Automated exposure control for dose reduction was used. FINDINGS: There is some cerebral cortical atrophy. There is no mass effect nor midline shift. There is no sign of intracranial hemorrhage. Calvarium is intact. IMPRESSION: CEREBRAL ATROPHY. NO ACUTE INTRACRANIAL ABNORMALITY. NO CHANGE.
--- NOTE | 2018-06-10 07:45 | XR ---
EXAMINATION TYPE: XR chest 2V DATE OF EXAM: 06/10/2018 COMPARISON: 02/10/2018 HISTORY: Weakness TECHNIQUE: Frontal and lateral views of the chest are obtained. FINDINGS: There is no heart failure nor confluent pneumonic infiltrate. Thoracic aorta is atheromato us. There is coarsening of the lung markings. There are chest leads. IMPRESSION: Pulmonary fibrosis. Atheromatous aorta. Inspiration is decreased compared to old exam.
[2018-06-10 07:53] LABS: Creatine Kinase 37 U/L (30-135)
[2018-06-10 08:05] LABS: Creatine Kinase MB 1.4 ng/mL (0.0-2.4); Troponin I <0.012 ng/mL (0.000-0.034)
[2018-06-10 08:54] LABS: Appearance,Urine Clear (Clear); Bacteria,Urine Rare /hpf; Bilirubin,Urine Negative (Negative); Blood,Urine Negative (Negative); Color,Urine Yellow; Glucose,Urine (UA) Negative (Negative); Ketones,Urine Negative (Negative); Leukocyte Esterase,Urine Small (Negative); Nitrite,Urine Negative (Negative); Protein,Urine Negative (Negative); RBC,Urine 1 /hpf (0-5); Specific Gravity,Urine 1.009 (1.001-1.035); Squamous Epithelial Cell,Urine <1 /hpf (0-4); Urobilinogen,Urine <2.0 mg/dL (<2.0); WBC,Urine 11 /hpf (0-5)
[2018-06-10] MEDS: SODIUM CHLORIDE 0.9% 1,000 ML IV SCH ×2 (10:10→17:54)
[2018-06-10] MEDS: ENOXAPARIN 40 MG/0.4 ML SYRINGE SQ SCH (10:11)
[2018-06-10] MEDS: PANTOPRAZOLE 40 MG/10 ML VIAL IV SCH (10:12)
[2018-06-10] MEDS ORDERED: BISACODYL 10 MG SUPP RECTAL PRN (12:54)
[2018-06-10] MEDS ORDERED: ACETAMINOPHEN TAB 325 MG TAB PO PRN (12:54)
[2018-06-10] MEDS ORDERED: PREGABALIN 75 MG CAP PO SCH (16:00)
[2018-06-10] MEDS ORDERED: ACETAMINOPHEN IV (For NPO) 1,000 MG in EMPTY BAG 1 BAG IVPB PRN (16:53)
[2018-06-10 17:27] LABS: Glucose,Whole Blood 160 mg/dL (75-99)
[2018-06-10] MEDS ORDERED: ACETAMINOPHEN IV (For NPO) 1,000 MG in EMPTY BAG 1 BAG IVPB SCH (18:00)
[2018-06-10 20:07] LABS: Glucose,Whole Blood 152 mg/dL (75-99)
[2018-06-10] MEDS ORDERED: NON-FORMULARY DRUG (Biotin [Biotin] 300 MCG) PO SCH (21:00)
[2018-06-10] MEDS: ATORVASTATIN 40 MG TAB PO SCH (22:48)
[2018-06-10] MEDS: MULTIVITAMINS, THERA 1 EACH TAB PO SCH (22:49)
[2018-06-10] MEDS: DOCUSATE 100 MG CAP PO SCH (22:49)
[2018-06-10] MEDS: MAGNESIUM OXIDE 400 MG TAB PO SCH (22:49)
[2018-06-10] MEDS: SENNOSIDES 8.6 MG TAB PO SCH (22:49)
[2018-06-10] MEDS: CALCIUM CARB-VIT D 500MG-200UN 1 EACH TAB PO SCH (22:49)
--- NOTE | 2018-06-11 00:04 | P.HPIM ---
History of Present Illness H&P Date: 06/10/18 Chief Complaint: Altered mental status Patient is a 67-year-old female with a known history of diabetes type 2 non- insulin-dependent, fibromyalgia, chronic pain, hyperlipidemia and multiple other medical problems including bilateral lower extremity ulcers with skin flaps and decubitus ulcers was sent from intermediate due to altered mental status. Patient was febrile and tachycardic and tachypneic on admission. CT head showed cerebral atrophy. No intracranial process. Chest x-ray showed pulmonary fibrosis. EKG showed sinus tachycardia. Patient is currently lying in the bed comfortably and lethargic, altered mental status. Otherwise cannot provide any history. Lactic acid 2.1. No leukocytosis. Patient is currently on morphine, Dilaudid and Lyrica at intermediate Review of Systems Complete review of systems could not be of pain from the patient. Past Medical History Past Medical History: Atrial Fibrillation, Diabetes Mellitus, Deep Vein Thrombosis (DVT), Fibromyalgia, GI Bleed, Hyperlipidemia, Hypertension, Pneumonia, Renal Disease, Skin Disorder Additional Past Medical History / Comment(s): Chronic blood loss anemia, hypertension, hyperlipidemia, fibromyalgia, chronic stage III renal failure, morbid obesity, DVT left lower leg with a previous IVC filter in place, dermatitis, gastric ulcer with a previous [place]-en-Y gastric bypass surgery, chronic lower back pain, morbid obesity, previous history of severe sepsis w/ septic shock including septicemia with MRSA, SVT, DM type 2, hemorrhoids, cellulitis of left lower extremity, dysphagia, falls, muscle weakness, pneumonia , sleep apnea, bilateral tinnitus, atrial fibrillation, UTI. Left eye contusion/ left lower leg laceration - surgically repaired, Right heel pressure ulcer - healed, peripheral neuropathy (bilateral hands and feet), migraines, eczema, sinus problems, lower GI bleed. 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; Urine-VRE & ESBL Past Surgical History: Adenoidectomy, Bariatric Surgery, Cholecystectomy, Joint Replacement, Tonsillectomy, Tubal Ligation Additional Past Surgical History / Comment(s): Gastric bypass, [place]-en-Y in 2003 , [place] filter placement in 2000, teeth extraction, colonoscopy, EGD, hemorrhoidectomy, panniculectomy, D&C, hystoscopy x 2, LT KNEE replaced 2006- MRSA infection-hardware removed and cemented then replaced again, L hip repair with screw and total R hip REPLACEMENT, bilateral heel spurs removed, bilateral carpal tunnel releases, D&Cs, infusaport insertion since removed. Past Anesthesia/Blood Transfusion Reactions: Blood Transfusion Reaction Additional Past Anesthesia/Blood Transfusion Reaction / Comment(s): Per chart unspecified reaction. Past Psychological History: Anxiety, Depression Additional Psychological History / Comment(s): Patient is now in extended care. No longer live independently. Does not have any significant family. Was a tobacco smoker stopping several years ago. She has history of smoking 1.5-2 pack per day for 27 years and quit in 1993. She drinks alcohol rarely. 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 No animal exposures. Smoking Status: Former smoker Past Alcohol Use History: None Reported Additional Past Alcohol Use History / Comment(s): She has history of smoking 2 packs per day for 27 years and quit in 1993. She drinks alcohol rarely. 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 Past Drug Use History: Marijuana Additional Drug Use History / Comment(s): . - Past Family History Father Family Medical History: Myocardial Infarction ([place]) Additional Family Medical History / Comment(s): AT AGE 46-[place] Mother Family Medical History: Diabetes Mellitus Additional Family Medical History / Comment(s): AT AGE 66 FROM COMPLICATIONS FROM DM Sister(s) Family Medical History: Diabetes Mellitus Brother(s) Family Medical History: Diabetes Mellitus Daughter(s) Family Medical History: Cancer Son(s) Family Medical History: No Reported History Medications and Allergies Home Medications Medication Instructions Recorded Confirmed Type Atorvastatin [Lipitor] 40 mg PO HS 08/30/15 06/10/18 History Polyethylene Glycol 3350 [Miralax] 17 gm PO DAILY 06/29/16 06/10/18 History Sennosides [Senokot] 17.2 mg PO BID 05/22/17 06/10/18 History Acetaminophen Tab [Tylenol] 650 mg PO Q6H PRN 07/29/17 06/10/18 History Bisacodyl [Dulcolax] 10 mg RECTAL DAILY PRN 11/25/17 06/10/18 History Biotin 300 mcg PO HS 01/05/18 06/10/18 History Calcium Carbonate/Vitamin D3 1 tab PO HS 01/05/18 06/10/18 History [Calcium 500-Vit D3 200 Tablet] Multivitamins, Thera [Multivitamin 1 tab PO HS 01/05/18 06/10/18 History (formulary)] Oxybutynin Chloride [Oxybutynin 10 mg PO DAILY 01/05/18 06/10/18 History Chloride ER] Pregabalin [Lyrica] 75 mg PO TID 01/05/18 06/10/18 History rOPINIRole HCL [Requip] 0.5 mg PO HS 01/05/18 06/10/18 History Magnesium Oxide [Mag-Ox] 400 mg PO BID 02/13/18 06/10/18 History Omeprazole 20 mg PO DAILY 02/13/18 06/10/18 History metFORMIN HCL [Glucophage] 500 mg PO BID 02/13/18 06/10/18 History Docusate [Colace] 100 mg PO BID cap 02/17/18 06/10/18 Rx Potassium Chloride ER [K-Dur 20] 20 meq PO HS tab.er.prt 02/17/18 06/10/18 Rx Baclofen [Lioresal] 10 mg PO Q6H 06/10/18 06/10/18 History Doxycycline Monohydrate [Monodox] 100 mg PO BID 06/10/18 06/10/18 History HYDROmorphone [Dilaudid] 4 mg PO Q12H PRN 06/10/18 06/10/18 History Loratadine [Claritin] 10 mg PO DAILY 06/10/18 06/10/18 History Morphine Sulfate ER [Ms Contin] 15 mg PO Q12HR PRN 06/10/18 06/10/18 History Nystatin/Triamcin 1 applicate TOPICAL BID 06/10/18 06/10/18 History [Nystatin-Triamcinolone Cream] Allergies Allergy/AdvReac Type Severity Reaction Status Date / Time adhesive tape Allergy Severe Rash/Hives Verified 06/10/18 11:15 cephalexin monohydrate Allergy Severe Rash/Hives Verified 06/10/18 11:15 [From Keflex] influenza virus vaccine, Allergy Severe Anaphylaxis Verified 06/10/18 11:15 specific [influenza virus vacc,specific] latex Allergy Severe Rash/Hives Verified 06/10/18 11:15 peanut Allergy Severe Anaphylaxis Verified 06/10/18 11:15 Penicillins Allergy Severe Swelling Verified 06/10/18 11:15 tetanus toxoid, adsorbed Allergy Intermediate Rash/Hives Verified 06/10/18 11:15 Influenza Virus Vaccines Allergy Anaphylaxis Verified 06/10/18 11:15 Physical Exam Vitals: Vital Signs Temp Pulse Resp BP Pulse Ox 06/10/18 11:00 101 H 16 142/75 100 06/10/18 10:30 97 16 144/93 100 06/10/18 10:00 101 H 17 142/68 100 06/10/18 09:30 103 H 15 129/63 100 06/10/18 09:00 101 H 14 139/68 100 06/10/18 08:47 100.1 F H 105 H 13 139/68 100 06/10/18 06:08 102.3 F H 124 H 26 H 164/113 100 Intake and Output 06/09/18 06/10/18 06/10/18 22:59 06:59 14:59 Other: Weight 83.915 kg PHYSICAL EXAMINATION: Patient is lying in the bed comfortably, currently not awake and cannot provide history... HEENT: Normocephalic. Neck is supple. Pupils reactive. Nostrils clear. Oral cavity is moist. Ears reveal no drainage. Neck reveals no JVD, carotid bruits, or thyromegaly. CHEST EXAMINATION: Trachea is central. Symmetrical expansion. Bibasilar diminished air entry. Lung daven[place] clear to auscultation and percussion. CARDIAC: Normal S1, S2 with no gallops. No murmurs ABDOMEN: Soft. Bowel sounds normal. No organomegaly. No abdominal bruits. Extremities: Bilateral lower extremity redness and swelling with the left lower extremities wounds are Daren wrap. Patient does have healed wounds most likely from skin flaps on anterior thigh area. No clubbing or cyanosis Neurologically . Patient is currently lethargic and altered mentation. Skin: As described above. Psychiatric: Could not be assessed. Musculoskeletal: No joint swelling or deformity. Results CBC & Chem 7: 06/10/18 07:08 06/10/18 07:08 Labs: Abnormal Lab Results - Last 24 Hours (Table) 06/10/18 06/10/18 06/10/18 Range/Units 06:16 07:08 07:08 RBC 3.56 L (3.80-5.40) m/uL Hgb 10.3 L (11.4-16.0) gm/dL Hct 32.8 L (34.0-46.0) % Lymphocytes # 0.4 L (1.0-4.8) k/uL Chloride 115 H (98-107) mmol/L BUN 31 H (7-17) mg/dL Glucose 137 H (74-99) mg/dL POC Glucose (mg/dL) 139 H (75-99) mg/dL Plasma Lactic Acid Maximus (0.7-2.0) mmol/L Phosphorus 5.0 H (2.5-4.5) mg/dL Alkaline Phosphatase 135 H (38-126) U/L Albumin 3.2 L (3.5-5.0) g/dL Ur Leukocyte Esterase (Negative) Urine WBC (0-5) /hpf Urine Bacteria (None) /hpf 06/10/18 06/10/18 Range/Units 07:08 08:20 RBC (3.80-5.40) m/uL Hgb (11.4-16.0) gm/dL Hct (34.0-46.0) % Lymphocytes # (1.0-4.8) k/uL Chloride (98-107) mmol/L BUN (7-17) mg/dL Glucose (74-99) mg/dL POC Glucose (mg/dL) (75-99) mg/dL Plasma Lactic Acid Maximus 2.1 H* (0.7-2.0) mmol/L Phosphorus (2.5-4.5) mg/dL Alkaline Phosphatase (38-126) U/L Albumin (3.5-5.0) g/dL Ur Leukocyte Esterase Small H (Negative) Urine WBC 11 H (0-5) /hpf Urine Bacteria Rare H (None) /hpf Thrombosis Risk Factor Assmnt - DVT/VTE Prophylaxis DVT/VTE Prophylaxis: Pharmacologic Prophylaxis ordered Assessment and Plan Assessment: Altered mental status likely due to toxic and metabolic encephalopathy and infection Bilateral lower extremities cellulitis and skin ulcers Sepsis secondary to bilateral lower extremities cellulitis left greater than right Lactic acidosis. Dehydration. Possible diabetic skin ulcers Diabetes type 2 [id number] History of DVT Fibromyalgia Hyperlipidemia Chronic blood loss anemia CK D stage III Obesity History of gastric ulcer with previous proximal [place]-en-Y gastric bypass Chronic lower back pain History of MRSA History of falls Obstructive sleep apnea Bilateral tinnitus History of atrial fibrillation History of left eye contusion/left lower leg ulceration Diabetic peripheral neuropathy History of migraine headaches Eczema History of lower GI bleed Anxiety/depression Osteoarthritis with history of left knee total arthroplasty DVT prophylaxis Previous history of smoking and marijuana use Plan: Patient will be continued on IV hydration. Continue with broad-spectrum antibiotics in the form of vancomycin and Levaquin was started. Will hold morphine Dilaudid and Lyrica. Follow-up blood cultures and Tylenol for fever. Continue to follow closely and further conditions based on the clinical course. Mahin is guarded with multiple medical problems and comorbid conditions. Time with Patient: Greater than 30
--- NOTE | 2018-06-11 01:42 | CT ---
EXAMINATION TYPE: CT brain wo con DATE OF EXAM: 06/11/2018 COMPARISON: Yesterday HISTORY: AMS CT DLP: 719.6 mGycm Automated exposure control for dose reduction was used. FINDINGS: There is some cerebral cortical atrophy. There is no mass effect nor midline shift. There is no sign of intracranial hemorrhage. The calvarium is intact. IMPRESSION: MILD ATROPHY. NO ACUTE INTRACRANIAL ABNORMALITY. THERE IS NEW MINIMAL ETHMOID AND SPHENOID SINUSITIS COMPARED TO YESTERDAY.
[2018-06-11 02:07] LABS: Glucose,Whole Blood 133 mg/dL (75-99)
[2018-06-11] MEDS: SODIUM CHLORIDE 0.9% 1,000 ML IV SCH ×4 (02:26→20:58)
[2018-06-11] MEDS ORDERED: NALOXONE 0.4 MG/ML 1 ML VIAL IV PRN (02:40)
[2018-06-11 05:35] LABS: Basophils % (A) 0 %; Eosinophils # (A) 0.1 k/uL (0-0.7); Eosinophils % (A) 1 %; HCT 26.7 % (34.0-46.0); Hypochromasia Marked; Lymphocytes % (A) 10 %; MCHC 31.1 g/dL (31.0-37.0); Mean Platelet Volume 7.6; Monocytes # (A) 0.2 k/uL (0-1.0); Monocytes % (A) 2 %; Neutrophils # (A) 8.6 k/uL (1.3-7.7); Neutrophils % (A) 86 %; Platelet Count 225 k/uL (150-450); RBC 2.87 m/uL (3.80-5.40); RDW 15.3 % (11.5-15.5); WBC 10.1 k/uL (3.8-10.6)
[2018-06-11 05:45] LABS: Anion Gap 5 mmol/L; Blood Urea Nitrogen 24 mg/dL (7-17); Calcium 8.7 mg/dL (8.4-10.2); Carbon Dioxide 21 mmol/L (22-30); Chloride 116 mmol/L (98-107); Glucose 121 mg/dL (74-99); Magnesium 1.7 mg/dL (1.6-2.3); Phosphorus 3.8 mg/dL (2.5-4.5); Sodium 142 mmol/L (137-145)
[2018-06-11] MEDS ORDERED: Magnesium Replacement Protocol 1 EACH MISC MISCELLANE PRN (05:47)
[2018-06-11 06:16] LABS: HGB 8.3 gm/dL (11.4-16.0)
[2018-06-11] MEDS: MAGNESIUM SULFATE-D5W PMX 1 GM in DEXTROSE/WATER 1 100ML.BAG IVPB SCH ×2 (06:21→08:12)
--- NOTE | 2018-06-11 06:43 | XR ---
EXAMINATION TYPE: XR chest 1V DATE OF EXAM: 06/11/2018 HISTORY: pulmonary fibrosis. REFERENCE: Previous study dated 06/10/2018. FINDINGS: There is worsening opacity of the left hemithorax likely on the basis of pleural fluid plus atelectasis. Right lung remains clear. Heart size is obscured. IMPRESSION: WORSENING OPACITY OF THE LEFT HEMITHORAX.
[2018-06-11] MEDS: PANTOPRAZOLE 40 MG/10 ML VIAL IV SCH (08:12)
[2018-06-11] MEDS: ENOXAPARIN 40 MG/0.4 ML SYRINGE SQ SCH (08:12)
[2018-06-11] MEDS ORDERED: NON-FORMULARY DRUG (Omeprazole [Omeprazole] 20 MG) PO SCH (09:00)
[2018-06-11] MEDS: LEVOFLOXACIN 750MG-D5W PMX 750 MG in DEXTROSE/WATER 1 150ML.BAG IVPB SCH (09:52)
[2018-06-11] MEDS: VANCOMYCIN 1,250 MG in SODIUM CHLORIDE 0.9% 250 ML IVPB SCH (09:53)
[2018-06-11] MEDS ORDERED: ERTAPENEM 1 GM in SODIUM CHLORIDE 0.9% 50 ML IVPB SCH (11:00)
[2018-06-11] MEDS: SENNOSIDES 8.6 MG TAB PO SCH ×2 (13:10→23:16)
[2018-06-11] MEDS: DOCUSATE 100 MG CAP PO SCH ×2 (13:10→23:15)
[2018-06-11] MEDS: MAGNESIUM OXIDE 400 MG TAB PO SCH ×2 (13:10→23:15)
[2018-06-11] MEDS: OXYBUTYNIN 10 MG TAB.ER.24 PO SCH (13:10)
[2018-06-11 13:41] LABS: Glucose,Whole Blood 149 mg/dL (75-99)
--- NOTE | 2018-06-11 15:21 | P.CNPUL ---
History of Present Illness Consult date: 06/11/18 Reason for consult: pneumonia History of present illness: 67-year-old patient, sent over to the hospital because of altered mentation. The patient is unable to give any information. She is lethargic and she cannot provide any history. She is a penitentiary resident. The patient has no significant leukocytosis. Blood work and electrodes are all within normal limits. UA has also been within normal limits. She was however febrile and she came in with a temperature of 102. Her most recent temperatures 100.4. Slightly tachycardic. Hemodynamically stable and the patient is not requiring any pressors. The patient is on 3 L of oxygen by nasal cannula. Repeat chest x -ray from today shows extensive consolidation of the left lung and the patient is producing copious amount of thick purulent respiratory secretions and she has a harsh cough. For now, the patient is currently on a combination of IV Merrem, vancomycin and Levaquin. The choice was made based on her previous history of ESBL infections in the urine/ESBL exposure. This will give also the patient gram-negative and MRSA coverage. The patient also has chronic wounds in lower extremity and stage II ulcer in her buttocks. CAT scan of the brain was essentially negative. There is no neck stiffness. No seizure activity. No drug overdose. No clear-cut history of aspiration. She is able to swallow properly for now. Review of Systems ROS unobtainable: due to mental status Past Medical History Past Medical History: Atrial Fibrillation, Diabetes Mellitus, Deep Vein Thrombosis (DVT), Fibromyalgia, GI Bleed, Hyperlipidemia, Hypertension, Pneumonia, Renal Disease, Skin Disorder Additional Past Medical History / Comment(s): Chronic blood loss anemia, hypertension, hyperlipidemia, fibromyalgia, chronic stage III renal failure, morbid obesity, DVT left lower leg with a previous IVC filter in place, dermatitis, gastric ulcer with a previous Clinton-en-Y gastric bypass surgery, chronic lower back pain, morbid obesity, previous history of severe sepsis w/ septic shock including septicemia with MRSA, SVT, DM type 2, hemorrhoids, cellulitis of left lower extremity, dysphagia, falls, muscle weakness, pneumonia , sleep apnea, bilateral tinnitus, atrial fibrillation, UTI. Left eye contusion/ left lower leg laceration - surgically repaired, Right heel pressure ulcer - healed, peripheral neuropathy (bilateral hands and feet), migraines, eczema, sinus problems, lower GI bleed. 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 Past Anesthesia/Blood Transfusion Reactions: Blood Transfusion Reaction Additional Past Anesthesia/Blood Transfusion Reaction / Comment(s): Per chart unspecified reaction. Past Psychological History: Anxiety, Depression Additional Psychological History / Comment(s): Patient is now in extended care. No longer live independently. Does not have any significant family. Was a tobacco smoker stopping several years ago. She has history of smoking 1.5-2 pack per day for 27 years and quit in 1993. She drinks alcohol rarely. 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 No animal exposures. Smoking Status: Former smoker Past Alcohol Use History: None Reported Additional Past Alcohol Use History / Comment(s): She has history of smoking 2 packs per day for 27 years and quit in 1993. She drinks alcohol rarely. 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 Past Drug Use History: Marijuana Additional Drug Use History / Comment(s): . - Past Family History Father Family Medical History: Myocardial Infarction (ID) Additional Family Medical History / Comment(s): AT AGE 46-ID Mother Family Medical History: Diabetes Mellitus Additional Family Medical History / Comment(s): AT AGE 66 FROM COMPLICATIONS FROM DM Sister(s) Family Medical History: Diabetes Mellitus Brother(s) Family Medical History: Diabetes Mellitus Daughter(s) Family Medical History: Cancer Son(s) Family Medical History: No Reported History Medications and Allergies Home Medications Medication Instructions Recorded Confirmed Type Atorvastatin [Lipitor] 40 mg PO HS 08/30/15 06/10/18 History Polyethylene Glycol 3350 [Miralax] 17 gm PO DAILY 06/29/16 06/10/18 History Sennosides [Senokot] 17.2 mg PO BID 05/22/17 06/10/18 History Acetaminophen Tab [Tylenol] 650 mg PO Q6H PRN 07/29/17 06/10/18 History Bisacodyl [Dulcolax] 10 mg RECTAL DAILY PRN 11/25/17 06/10/18 History Biotin 300 mcg PO HS 01/05/18 06/10/18 History Calcium Carbonate/Vitamin D3 1 tab PO HS 01/05/18 06/10/18 History [Calcium 500-Vit D3 200 Tablet] Multivitamins, Thera [Multivitamin 1 tab PO HS 01/05/18 06/10/18 History (formulary)] Oxybutynin Chloride [Oxybutynin 10 mg PO DAILY 01/05/18 06/10/18 History Chloride ER] Pregabalin [Lyrica] 75 mg PO TID 01/05/18 06/10/18 History rOPINIRole HCL [Requip] 0.5 mg PO HS 01/05/18 06/10/18 History Magnesium Oxide [Mag-Ox] 400 mg PO BID 02/13/18 06/10/18 History Omeprazole 20 mg PO DAILY 02/13/18 06/10/18 History metFORMIN HCL [Glucophage] 500 mg PO BID 02/13/18 06/10/18 History Docusate [Colace] 100 mg PO BID cap 02/17/18 06/10/18 Rx Potassium Chloride ER [K-Dur 20] 20 meq PO HS tab.er.prt 02/17/18 06/10/18 Rx Baclofen [Lioresal] 10 mg PO Q6H 06/10/18 06/10/18 History Doxycycline Monohydrate [Monodox] 100 mg PO BID 06/10/18 06/10/18 History HYDROmorphone [Dilaudid] 4 mg PO Q12H PRN 06/10/18 06/10/18 History Loratadine [Claritin] 10 mg PO DAILY 06/10/18 06/10/18 History Morphine Sulfate ER [Ms Contin] 15 mg PO Q12HR PRN 06/10/18 06/10/18 History Nystatin/Triamcin 1 applicate TOPICAL BID 06/10/18 06/10/18 History [Nystatin-Triamcinolone Cream] Allergies Allergy/AdvReac Type Severity Reaction Status Date / Time adhesive tape Allergy Severe Rash/Hives Verified 06/10/18 11:15 cephalexin monohydrate Allergy Severe Rash/Hives Verified 06/10/18 11:15 [From Keflex] influenza virus vaccine, Allergy Severe Anaphylaxis Verified 06/10/18 11:15 specific [influenza virus vacc,specific] latex Allergy Severe Rash/Hives Verified 06/10/18 11:15 peanut Allergy Severe Anaphylaxis Verified 06/10/18 11:15 Penicillins Allergy Severe Swelling Verified 06/10/18 11:15 tetanus toxoid, adsorbed Allergy Intermediate Rash/Hives Verified 06/10/18 11:15 Influenza Virus Vaccines Allergy Anaphylaxis Verified 06/10/18 11:15 Physical Exam Vitals: Vital Signs Temp Pulse Pulse Resp BP BP BP 06/11/18 14:00 92 21 156/77 06/11/18 13:00 99 26 H 159/77 06/11/18 12:00 100.4 F H 101 H 115 H 13 151/70 06/11/18 11:00 86 21 151/72 06/11/18 10:00 93 17 145/73 06/11/18 09:00 85 11 L 152/75 06/11/18 08:00 99.6 F 102 H 115 H 16 156/76 06/11/18 07:35 115 H 18 156/76 06/11/18 07:00 95 20 144/63 06/11/18 06:00 99 15 127/66 06/11/18 05:00 95 16 136/83 06/11/18 04:00 99.1 F 98 16 130/78 06/11/18 02:30 110 H 18 06/11/18 02:24 92 18 123/55 06/11/18 00:15 99.1 F 110 H 18 139/79 06/10/18 23:25 97.0 F L 101 H 135/65 06/10/18 21:35 98.8 F 113 H 129/83 Pulse Ox 06/11/18 14:00 100 06/11/18 13:00 99 06/11/18 12:00 99 06/11/18 11:00 97 06/11/18 10:00 100 06/11/18 09:00 99 06/11/18 08:00 99 06/11/18 07:35 100 06/11/18 07:00 100 06/11/18 06:00 100 06/11/18 05:00 100 06/11/18 04:00 99 06/11/18 02:30 06/11/18 02:24 100 06/11/18 00:15 96 06/10/18 23:25 98 06/10/18 21:35 97 Intake and Output 06/11/18 06/11/18 06/11/18 06:59 14:59 22:59 Intake Total 500 950 Output Total 525 1275 Balance -25 -325 Intake: IV 375 500 Sodium Chloride 0.9% 1, 375 500 000 ml @ 125 mls/hr IV . Q8H GUALBERTO Rx#:[id number] Intake, IV Titration 125 450 Amount Levofloxacin 750Mg-D5w 100 Pmx 750 mg In Dextrose/ Water 1 150ml.bag @ 100 mls/hr IVPB Q24H GUALBERTO Rx#: [id number] Magnesium Sulfate-D5w Pmx 100 1 gm In Dextrose/Water 1 100ml.bag @ 100 mls/hr IVPB Q1H GUALBERTO Rx#: [id number] Sodium Chloride 0.9% 1, 125 000 ml @ 125 mls/hr IV . Q8H GUALBERTO Rx#:[id number] Vancomycin 1,250 mg In 250 Sodium Chloride 0.9% 250 ml @ 125 mls/hr IVPB Q24H GUALBERTO Rx#:[id number] Output: Urine 525 1275 Other: Voiding Method Indwelling Catheter Indwelling Catheter Weight 83.9 kg Patient is lying in the bed comfortably, currently not awake and cannot provide history... HEENT: Normocephalic. Neck is supple. Pupils reactive. Nostrils clear. Oral cavity is moist. Ears reveal no drainage. Neck reveals no JVD, carotid bruits, or thyromegaly. CHEST EXAMINATION: Trachea is central. Symmetrical expansion. Bibasilar diminished air entry. Lung d[place] diminished breath on the left compared to the right decision to scattered rhonchi and crackles heard in the left lung more so on the right. The findings of our bilaterally. CARDIAC: Normal S1, S2 with no gallops. No murmurs ABDOMEN: Soft. Bowel sounds normal. No organomegaly. No abdominal bruits. Extremities: Bilateral lower extremity redness and swelling with the left lower extremities wounds are Daren wrap. Patient does have healed wounds most likely from skin flaps on anterior thigh area. No clubbing or cyanosis Neurologically . Patient is currently lethargic and altered mentation. Skin: As described above. Psychiatric: Could not be assessed. Musculoskeletal: No joint swelling or deformity. Results - Laboratory Findings CBC and BMP: 06/11/18 04:48 06/11/18 04:48 PT/INR, D-dimer PT 10.4 sec (9.0-12.0) 06/10/18 07:08 INR 1.1 (<1.2) 06/10/18 07:08 Abnormal lab findings: Abnormal Labs 06/10/18 06/10/18 06/10/18 06:16 07:08 07:08 RBC 3.56 L Hgb 10.3 L Hct 32.8 L Neutrophils # Lymphocytes # 0.4 L Chloride 115 H Carbon Dioxide BUN 31 H Glucose 137 H POC Glucose (mg/dL) 139 H Plasma Lactic Acid Maximus Phosphorus 5.0 H Alkaline Phosphatase 135 H Albumin 3.2 L Ur Leukocyte Esterase Urine WBC Urine Bacteria 06/10/18 06/10/18 06/10/18 07:08 08:20 17:09 RBC Hgb Hct Neutrophils # Lymphocytes # Chloride Carbon Dioxide BUN Glucose POC Glucose (mg/dL) 160 H Plasma Lactic Acid Maximus 2.1 H* Phosphorus Alkaline Phosphatase Albumin Ur Leukocyte Esterase Small H Urine WBC 11 H Urine Bacteria Rare H 06/10/18 06/11/18 06/11/18 19:55 01:41 04:48 RBC 2.87 L Hgb 8.3 L D Hct 26.7 L Neutrophils # 8.6 H Lymphocytes # Chloride Carbon Dioxide BUN Glucose POC Glucose (mg/dL) 152 H 133 H Plasma Lactic Acid Maximus Phosphorus Alkaline Phosphatase Albumin Ur Leukocyte Esterase Urine WBC Urine Bacteria 06/11/18 06/11/18 04:48 13:29 RBC Hgb Hct Neutrophils # Lymphocytes # Chloride 116 H Carbon Dioxide 21 L BUN 24 H Glucose 121 H POC Glucose (mg/dL) 149 H Plasma Lactic Acid Maximus Phosphorus Alkaline Phosphatase Albumin Ur Leukocyte Esterase Urine WBC Urine Bacteria - Diagnostic Findings Chest x-ray: image reviewed Assessment and Plan Plan: Assessment 1 left lung pneumonia, [facility] acquired, consider gram-negative including ESBL producing organism knowing that the patient has exposure is producing organisms in the past. There is significant consolidation of the left lung. The patient is coughing up purulent respiratory secretions. Currently on a combination of Merrem, Levaquin and vancomycin 2 acute hypoxic respiratory failure secondary to above 3 altered mentation above and beyond her baseline, possibly infection-induced encephalopathy 4 diabetes mellitus type 2, [id number] 5 obesity with a BMI of 33.8 6 previous history of Clinton-en-Y gastric bypass surgery for history of gastric ulcer disease 7 chronic ulceration lower extremities in addition to a stage II ulcer on her buttocks 8 paroxysmal atrial fibrillation currently in normal sinus rhythm 9 previous history of DVT and pulmonary embolism and the patient has an IVC filter in place 10 fibromyalgia 11 previous history of GI bleed 12 upper distention 13 hyperlipidemia 14 chronic anemia 15 previous history of ESBL producing gram-negative urine checked infection and previous history of MRSA infection 16 migraines 17 peripheral neuropathy 18 sleep apnea Plan Aspiration precautions. Monitor mental status. Continued IV fluids at the rate of 125 mL's an hour of normal saline. Keep the current antibiotic coverage which included a combination of vancomycin and Merrem and Levaquin. Sputum Gram stain and culture and further antibiotic medication with that accordingly. Daily chest x-rays. CODE STATUS needs to be addressed on this patient. The patient has a public guardian is think it's reasonable to discuss with her CODE STATUS and avoid any form of intubation along the mechanical ventilation this patient was significant debilities and poor baseline performance and functional status. We'll continue to follow.
[2018-06-11] MEDS: MEROPENEM 1 GM in SODIUM CHLORIDE 0.9% 100 ML IVPB SCH ×2 (15:51→23:39)
--- NOTE | 2018-06-11 16:13 | P.CNNES ---
History of Present Illness Consult date: 06/11/18 Requesting physician: Haritha Lara Reason for Consult: Neuro status changes History of Present Illness: Patient is a 67-year-old female who is being evaluated by the neurology service on 06/11/2018 per the request of Dr. Lara for neuro status changes. Patient is unable to provide history or information. Patient resides in a prison and has a public guardian. Patient has a history of diabetes , chronic pain, fibromyalgia, hyperlipidemia, debility with multiple lower extremity ulcers with skin flaps and decubitus ulcers. Patient was found to have a fever with increased confusion and was brought to [facility] for further evaluation. CT of the brain showed cerebral atrophy but no acute intracranial abnormality. Chest x-ray showed pulmonary fibrosis. A repeat computed tomography scan was done which showed no acute intracranial abnormality. Vital signs on admission show temperature 102.3, pulse 124, respirations 26, blood pressure 164/113, and oxygen saturation 100% on 4 L nasal cannula. Labs on admission showed WBC 6.5, hemoglobin 10.3, lymphocytes 0.4, BUN 31, creatinine 0.75, glucose 137, and plasma lactic acid 2.1. Influenza serology was negative. At the time of my evaluation, patient is resting comfortably in bed in the ICU and appears to be in no acute distress. Review of Systems REVIEW OF SYSTEMS: Otherwise unremarkable and noncontributory. Past Medical History Past Medical History: Atrial Fibrillation, Diabetes Mellitus, Deep Vein Thrombosis (DVT), Fibromyalgia, GI Bleed, Hyperlipidemia, Hypertension, Pneumonia, Renal Disease, Skin Disorder Additional Past Medical History / Comment(s): Chronic blood loss anemia, hypertension, hyperlipidemia, fibromyalgia, chronic stage III renal failure, morbid obesity, DVT left lower leg with a previous IVC filter in place, dermatitis, gastric ulcer with a previous Clinton-en-Y gastric bypass surgery, chronic lower back pain, morbid obesity, previous history of severe sepsis w/ septic shock including septicemia with MRSA, SVT, DM type 2, hemorrhoids, cellulitis of left lower extremity, dysphagia, falls, muscle weakness, pneumonia , sleep apnea, bilateral tinnitus, atrial fibrillation, UTI. Left eye contusion/ left lower leg laceration - surgically repaired, Right heel pressure ulcer - healed, peripheral neuropathy (bilateral hands and feet), migraines, eczema, sinus problems, lower GI bleed. 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 Past Anesthesia/Blood Transfusion Reactions: Blood Transfusion Reaction Additional Past Anesthesia/Blood Transfusion Reaction / Comment(s): Per chart unspecified reaction. Past Psychological History: Anxiety, Depression Additional Psychological History / Comment(s): Patient is now in extended care. No longer live independently. Does not have any significant family. Was a tobacco smoker stopping several years ago. She has history of smoking 1.5-2 pack per day for 27 years and quit in 1993. She drinks alcohol rarely. 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 No animal exposures. Smoking Status: Former smoker Past Alcohol Use History: None Reported Additional Past Alcohol Use History / Comment(s): She has history of smoking 2 packs per day for 27 years and quit in 1993. She drinks alcohol rarely. 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 Past Drug Use History: Marijuana Additional Drug Use History / Comment(s): . - Past Family History Father Family Medical History: Myocardial Infarction ([place]) Additional Family Medical History / Comment(s): AT AGE 46-[place] Mother Family Medical History: Diabetes Mellitus Additional Family Medical History / Comment(s): AT AGE 66 FROM COMPLICATIONS FROM DM Sister(s) Family Medical History: Diabetes Mellitus Brother(s) Family Medical History: Diabetes Mellitus Daughter(s) Family Medical History: Cancer Son(s) Family Medical History: No Reported History Medications and Allergies Home Medications Medication Instructions Recorded Confirmed Type Atorvastatin [Lipitor] 40 mg PO HS 08/30/15 06/10/18 History Polyethylene Glycol 3350 [Miralax] 17 gm PO DAILY 06/29/16 06/10/18 History Sennosides [Senokot] 17.2 mg PO BID 05/22/17 06/10/18 History Acetaminophen Tab [Tylenol] 650 mg PO Q6H PRN 07/29/17 06/10/18 History Bisacodyl [Dulcolax] 10 mg RECTAL DAILY PRN 11/25/17 06/10/18 History Biotin 300 mcg PO HS 01/05/18 06/10/18 History Calcium Carbonate/Vitamin D3 1 tab PO HS 01/05/18 06/10/18 History [Calcium 500-Vit D3 200 Tablet] Multivitamins, Thera [Multivitamin 1 tab PO HS 01/05/18 06/10/18 History (formulary)] Oxybutynin Chloride [Oxybutynin 10 mg PO DAILY 01/05/18 06/10/18 History Chloride ER] Pregabalin [Lyrica] 75 mg PO TID 01/05/18 06/10/18 History rOPINIRole HCL [Requip] 0.5 mg PO HS 01/05/18 06/10/18 History Magnesium Oxide [Mag-Ox] 400 mg PO BID 02/13/18 06/10/18 History Omeprazole 20 mg PO DAILY 02/13/18 06/10/18 History metFORMIN HCL [Glucophage] 500 mg PO BID 02/13/18 06/10/18 History Docusate [Colace] 100 mg PO BID cap 02/17/18 06/10/18 Rx Potassium Chloride ER [K-Dur 20] 20 meq PO HS tab.er.prt 02/17/18 06/10/18 Rx Baclofen [Lioresal] 10 mg PO Q6H 06/10/18 06/10/18 History Doxycycline Monohydrate [Monodox] 100 mg PO BID 06/10/18 06/10/18 History HYDROmorphone [Dilaudid] 4 mg PO Q12H PRN 06/10/18 06/10/18 History Loratadine [Claritin] 10 mg PO DAILY 06/10/18 06/10/18 History Morphine Sulfate ER [Ms Contin] 15 mg PO Q12HR PRN 06/10/18 06/10/18 History Nystatin/Triamcin 1 applicate TOPICAL BID 06/10/18 06/10/18 History [Nystatin-Triamcinolone Cream] Allergies Allergy/AdvReac Type Severity Reaction Status Date / Time adhesive tape Allergy Severe Rash/Hives Verified 06/10/18 11:15 cephalexin monohydrate Allergy Severe Rash/Hives Verified 06/10/18 11:15 [From Keflex] influenza virus vaccine, Allergy Severe Anaphylaxis Verified 06/10/18 11:15 specific [influenza virus vacc,specific] latex Allergy Severe Rash/Hives Verified 06/10/18 11:15 peanut Allergy Severe Anaphylaxis Verified 06/10/18 11:15 Penicillins Allergy Severe Swelling Verified 06/10/18 11:15 tetanus toxoid, adsorbed Allergy Intermediate Rash/Hives Verified 06/10/18 11:15 Influenza Virus Vaccines Allergy Anaphylaxis Verified 06/10/18 11:15 Physical Examination - Vital Signs Vital Signs: Vital Signs Temp Pulse Pulse Resp BP BP BP 06/11/18 15:00 98 19 157/79 06/11/18 14:00 92 21 156/77 06/11/18 13:00 99 26 H 159/77 06/11/18 12:00 100.4 F H 101 H 115 H 13 151/70 06/11/18 11:00 86 21 151/72 06/11/18 10:00 93 17 145/73 06/11/18 09:00 85 11 L 152/75 06/11/18 08:00 99.6 F 102 H 115 H 16 156/76 06/11/18 07:35 115 H 18 156/76 06/11/18 07:00 95 20 144/63 06/11/18 06:00 99 15 127/66 06/11/18 05:00 95 16 136/83 06/11/18 04:00 99.1 F 98 16 130/78 06/11/18 02:30 110 H 18 06/11/18 02:24 92 18 123/55 06/11/18 00:15 99.1 F 110 H 18 139/79 06/10/18 23:25 97.0 F L 101 H 135/65 06/10/18 21:35 98.8 F 113 H 129/83 Pulse Ox 06/11/18 15:00 95 06/11/18 14:00 100 06/11/18 13:00 99 06/11/18 12:00 99 06/11/18 11:00 97 06/11/18 10:00 100 06/11/18 09:00 99 06/11/18 08:00 99 06/11/18 07:35 100 06/11/18 07:00 100 06/11/18 06:00 100 06/11/18 05:00 100 06/11/18 04:00 99 06/11/18 02:30 06/11/18 02:24 100 06/11/18 00:15 96 06/10/18 23:25 98 06/10/18 21:35 97 Intake and Output 06/11/18 06/11/18 06/11/18 06:59 14:59 22:59 Intake Total 500 950 Output Total 525 1275 Balance -25 -325 Intake: IV 375 500 Sodium Chloride 0.9% 1, 375 500 000 ml @ 125 mls/hr IV . Q8H [facility] Rx#:[id number] Intake, IV Titration 125 450 Amount Levofloxacin 750Mg-D5w 100 Pmx 750 mg In Dextrose/ Water 1 150ml.bag @ 100 mls/hr IVPB Q24H [facility] Rx#: [id number] Magnesium Sulfate-D5w Pmx 100 1 gm In Dextrose/Water 1 100ml.bag @ 100 mls/hr IVPB Q1H [facility] Rx#: [id number] Sodium Chloride 0.9% 1, 125 000 ml @ 125 mls/hr IV . Q8H [facility] Rx#:[id number] Vancomycin 1,250 mg In 250 Sodium Chloride 0.9% 250 ml @ 125 mls/hr IVPB Q24H [facility] Rx#:[id number] Output: Urine 525 1275 Other: Voiding Method Indwelling Catheter Indwelling Catheter Weight 83.9 kg PHYSICAL EXAM: GENERAL APPEARANCE: Patient is a female who appears to be in no acute distress. HEENT: Normocephalic, atraumatic, no facial asymmetry is seen. Neck is supple with no masses felt. CARDIOVASCULAR: Regular rate and rhythm. ABDOMEN: Nontender, nondistended. EXTREMITIES: Lower extremity edema , no clubbing. NEUROLOGICAL EXAM: Patient is awake, alert, but only follows commands occasionally. A meaningful neurological exam could not be performed due to patient inability to comprehend and follow commands. No obvious lateralizing weakness was noted. No obvious facial asymmetry is noted. No tremors or seizures seen. Results - Laboratory Findings CBC and BMP: 06/11/18 04:48 06/11/18 04:48 Abnormal Lab Findings: Abnormal Labs 06/10/18 06/10/18 06/10/18 06:16 07:08 07:08 RBC 3.56 L Hgb 10.3 L Hct 32.8 L Neutrophils # Lymphocytes # 0.4 L Chloride 115 H Carbon Dioxide BUN 31 H Glucose 137 H POC Glucose (mg/dL) 139 H Plasma Lactic Acid Maximus Phosphorus 5.0 H Alkaline Phosphatase 135 H Albumin 3.2 L Ur Leukocyte Esterase Urine WBC Urine Bacteria 06/10/18 06/10/18 06/10/18 07:08 08:20 17:09 RBC Hgb Hct Neutrophils # Lymphocytes # Chloride Carbon Dioxide BUN Glucose POC Glucose (mg/dL) 160 H Plasma Lactic Acid Maximus 2.1 H* Phosphorus Alkaline Phosphatase Albumin Ur Leukocyte Esterase Small H Urine WBC 11 H Urine Bacteria Rare H 06/10/18 06/11/18 06/11/18 19:55 01:41 04:48 RBC 2.87 L Hgb 8.3 L D Hct 26.7 L Neutrophils # 8.6 H Lymphocytes # Chloride Carbon Dioxide BUN Glucose POC Glucose (mg/dL) 152 H 133 H Plasma Lactic Acid Maximus Phosphorus Alkaline Phosphatase Albumin Ur Leukocyte Esterase Urine WBC Urine Bacteria 06/11/18 06/11/18 04:48 13:29 RBC Hgb Hct Neutrophils # Lymphocytes # Chloride 116 H Carbon Dioxide 21 L BUN 24 H Glucose 121 H POC Glucose (mg/dL) 149 H Plasma Lactic Acid Maximus Phosphorus Alkaline Phosphatase Albumin Ur Leukocyte Esterase Urine WBC Urine Bacteria Assessment and Plan Plan: Impression: 1. Pneumonia 2. Altered mentation 3. Infectious encephalopathy 4. Diabetes mellitus 5. Chronic lower extremity ulcers 6. Sacral decubitus 7. Paroxysmal atrial fibrillation/not on anticoagulation Recommendations: Patient was brought to [facility] for decrease in mentation and fever. Patient was found to have pneumonia and possible infection of wounds. No obvious lateralizing weakness or seizure activity reported. Patient's altered mental status likely due from infectious encephalopathy. Patient is currently being treated in the ICU on multiple antibiotics. Patient had significant debility prior to admission. I will order an EEG and a fasting lipid panel. It is not clear whether current mentation is baseline for patient or not. Patient's legal guardian is not available at this time nor is any one from the prison to confirm this. Continue ICU management. I will continue to follow with you. Further recommendations to follow. Thank you for allowing me to participate in the care of your patient. Feel free to call with any questions or concerns. I performed an examination of the patient and discussed the management with the INSPECTOR SCALES. I have reviewed the INSPECTOR [facility]ALES notes and agree with the findings and plan of care.
[2018-06-11 16:56] LABS: Cholesterol 106 mg/dL (<200); HDL Cholesterol 35 mg/dL (40-60); LDL Cholesterol,Calculated 56 mg/dL (0-99); Triglycerides 77 mg/dL (<150)
[2018-06-11] MEDS: ATORVASTATIN 40 MG TAB PO SCH (23:12)
[2018-06-11] MEDS: CALCIUM CARB-VIT D 500MG-200UN 1 EACH TAB PO SCH (23:14)
[2018-06-11] MEDS: MULTIVITAMINS, THERA 1 EACH TAB PO SCH (23:15)
--- NOTE | 2018-06-12 01:32 | P.PN ---
Subjective Progress Note Date: 06/11/18 Principal diagnosis: Left lung pneumonia Metabolic encephalopathy due to infection Patient is a 67-year-old female with a known history of diabetes type 2 non- insulin-dependent, fibromyalgia, chronic pain, hyperlipidemia and multiple other medical problems including bilateral lower extremity ulcers with skin flaps and decubitus ulcers was sent from [facility] due to altered mental status. Patient was febrile and tachycardic and tachypneic on admission. CT head showed cerebral atrophy. No intracranial process. Chest x-ray showed pulmonary fibrosis. EKG showed sinus tachycardia. Patient is currently lying in the bed comfortably and lethargic, altered mental status. Otherwise cannot provide any history. Lactic acid 2.1. No leukocytosis. Patient is currently on morphine, Dilaudid and Lyrica at [facility] 06/11/2018 Patient was transferred to ICU last night due to altered mental status. Repeat CT head is negative. Chest x-ray showed worsening obesity of the left lung. Patient will be continued on IV antibiotics and meropenem was added along with vancomycin and levofloxacin. Patient is awake alert but agitated today. No fever no chills. No leukocytosis. Complete review of systems could not be obtained from the patient. Current medications reviewed Active Medications Generic Name Dose Route Start Last Admin Trade Name Freq PRN Reason Stop Dose Admin Atorvastatin Calcium 40 mg 06/10/18 21:00 06/11/18 23:12 Lipitor PO Not Given HS [facility] Bisacodyl 10 mg 06/10/18 12:54 Dulcolax RECTAL DAILY PRN Constipation Calcium Carbonate 1 each 06/10/18 21:00 06/11/18 23:14 Oscal 500+D PO Not Given HS [facility] Docusate Sodium 100 mg 06/10/18 21:00 06/11/18 23:15 Colace PO Not Given BID [facility] Enoxaparin Sodium 40 mg 06/10/18 09:00 06/11/18 08:12 Lovenox SQ 40 mg DAILY [facility] Administration Levofloxacin 750 mg/ IV 150 mls @ 100 mls/hr 06/11/18 08:00 06/11/18 09:52 Solution IVPB 100 mls/hr Q24H [facility] Administration Sodium Chloride 1,000 mls @ 125 mls/hr 06/10/18 07:15 06/11/18 20:58 Saline 0.9% IV 125 mls/hr .Q8H [facility] Administration Vancomycin HCl 1,250 mg/ 250 mls @ 125 mls/hr 06/11/18 09:00 06/11/18 09:53 Sodium Chloride IVPB 125 mls/hr Q24H [facility] Administration Meropenem 1 gm/ Sodium 100 mls @ 200 mls/hr 06/11/18 16:00 06/11/18 23:39 Chloride IVPB 200 mls/hr Q8HR [facility] Administration Protocol Magnesium Oxide 400 mg 06/10/18 21:00 06/11/18 23:15 Mag-Ox PO Not Given BID [facility] Miscellaneous Information 1 each 06/11/18 05:47 Magnesium Per Protocol MISCELLANE DAILY PRN Per Protocol Protocol Multivitamins 1 each 06/10/18 21:00 06/11/18 23:15 Theragran PO Not Given HS [facility] Naloxone HCl 0.2 mg 06/11/18 02:40 Narcan IV Q2M PRN Opioid Reversal Oxybutynin Chloride 10 mg 06/11/18 09:00 06/11/18 13:10 Ditropan Xl PO Not Given DAILY [facility] Pantoprazole Sodium 40 mg 06/10/18 09:00 06/11/18 08:12 Protonix IV 40 mg DAILY [facility] Administration Ropinirole HCl 0.5 mg 06/10/18 21:00 06/11/18 23:16 Requip PO Not Given HS [facility] Senna 17.2 mg 06/10/18 21:00 06/11/18 23:16 Senokot PO Not Given BID [facility] Objective - Vital Signs Vital signs: Vital Signs Temp 99.6 F 06/11/18 08:00 Pulse 115 H 06/11/18 12:00 Resp 21 06/11/18 12:00 BP 151/72 06/11/18 11:00 Pulse Ox 97 06/11/18 11:00 Intake & Output 06/10/18 06/11/18 06/11/18 18:59 06:59 18:59 Intake Total 500 700 Output Total 2000 750 Balance -1500 -50 Weight 83.9 kg 83.9 kg Intake: IV 375 250 Sodium Chloride 0.9% 1, 375 250 000 ml @ 125 mls/hr IV . Q8H [facility] Rx#:[id number] Intake, IV Titration 125 450 Amount Levofloxacin 750Mg-D5w 100 Pmx 750 mg In Dextrose/ Water 1 150ml.bag @ 100 mls/hr IVPB Q24H [facility] Rx#: [id number] Magnesium Sulfate-D5w Pmx 100 1 gm In Dextrose/Water 1 100ml.bag @ 100 mls/hr IVPB Q1H [facility] Rx#: [id number] Sodium Chloride 0.9% 1, 125 000 ml @ 125 mls/hr IV . Q8H [facility] Rx#:[id number] Vancomycin 1,250 mg In 250 Sodium Chloride 0.9% 250 ml @ 125 mls/hr IVPB Q24H [facility] Rx#:[id number] Output: Urine 2000 750 Other: Voiding Method Indwelling Catheter Indwelling Catheter Indwelling Catheter # Bowel Movements 1 1 - Exam PHYSICAL EXAMINATION: Patient is lying in the bed comfortably, no acute distress, awake alert and confused and agitated.. HEENT: Normocephalic. Neck is supple. Pupils reactive. Nostrils clear. Oral cavity is moist. Ears reveal no drainage. Neck reveals no JVD, carotid bruits, or thyromegaly. CHEST EXAMINATION: Trachea is central. Symmetrical expansion. Bibasilar diminished air entry left greater than right. CARDIAC: Normal S1, S2 with no gallops. No murmurs ABDOMEN: Soft. Bowel sounds normal. No organomegaly. No abdominal bruits. Extremities: 2+ edema and left lower extremities skin wound with serosanguineous drainage. Also has right thigh skin graft wound. No clubbing or cyanosis Neurologically awake, alert agitated. Able to move all his extremities. No focal deficits noted Skin: No rash or skin lesions. Psychiatric: Noncooperative. Could not be assessed. Musculoskeletal: No joint swelling or deformity. - Labs CBC & Chem 7: 06/11/18 04:48 06/11/18 04:48 Labs: Abnormal Lab Results - Last 24 Hours (Table) 06/10/18 06/10/18 06/11/18 Range/Units 17:09 19:55 01:41 RBC (3.80-5.40) m/uL Hgb (11.4-16.0) gm/dL Hct (34.0-46.0) % Neutrophils # (1.3-7.7) k/uL Chloride (98-107) mmol/L Carbon Dioxide (22-30) mmol/L BUN (7-17) mg/dL Glucose (74-99) mg/dL POC Glucose (mg/dL) 160 H 152 H 133 H (75-99) mg/dL 06/11/18 06/11/18 Range/Units 04:48 04:48 RBC 2.87 L (3.80-5.40) m/uL Hgb 8.3 L D (11.4-16.0) gm/dL Hct 26.7 L (34.0-46.0) % Neutrophils # 8.6 H (1.3-7.7) k/uL Chloride 116 H (98-107) mmol/L Carbon Dioxide 21 L (22-30) mmol/L BUN 24 H (7-17) mg/dL Glucose 121 H (74-99) mg/dL POC Glucose (mg/dL) (75-99) mg/dL Microbiology - Last 24 Hours (Table) 06/10/18 08:20 Urine Culture - Preliminary Urine,Catheterized Assessment and Plan Assessment: Altered mental status likely due to toxic and metabolic encephalopathy and infection Left lung pneumonia likely due to healthcare associated. Bilateral lower extremities cellulitis and skin ulcers Sepsis secondary to pneumonia and bilateral lower extremity cellulitis left greater than right Stage II sacral decubitus ulcers. Present on admission Lactic acidosis. Dehydration. Possible diabetic skin ulcers Diabetes type 2 [id number] History of DVT Fibromyalgia Hyperlipidemia Chronic blood loss anemia CK D stage III Obesity History of gastric ulcer with previous proximal Clinton-en-Y gastric bypass Chronic lower back pain History of MRSA History of falls Obstructive sleep apnea Bilateral tinnitus History of atrial fibrillation History of left eye contusion/left lower leg ulceration Diabetic peripheral neuropathy History of migraine headaches Eczema History of lower GI bleed Anxiety/depression Osteoarthritis with history of left knee total arthroplasty DVT prophylaxis Previous history of smoking and marijuana use Plan: Patient will be continued on IV hydration. Continue with broad-spectrum antibiotics in the form of vancomycin and Levaquin . Meropenem was started. Will hold morphine Dilaudid and Lyrica. Pulmonary and ID is following. Follow- up blood cultures and Tylenol for fever. Continue to follow closely and further conditions based on the clinical course. Mahin is guarded with multiple medical problems and comorbid conditions. Time with Patient: Greater than 30
[2018-06-12 01:58] LABS: Glucose,Whole Blood 134 mg/dL (75-99)
[2018-06-12] MEDS: SODIUM CHLORIDE 0.9% 1,000 ML IV SCH ×3 (02:48→19:30)
[2018-06-12 04:57] LABS: Glucose,Whole Blood 127 mg/dL (75-99)
[2018-06-12 06:01] LABS: Basophils % (A) 0 %; Eosinophils # (A) 0.2 k/uL (0-0.7); Eosinophils % (A) 2 %; HCT 26.4 % (34.0-46.0); HGB 8.1 gm/dL (11.4-16.0); Hypochromasia Marked; Lymphocytes # (A) 1.1 k/uL (1.0-4.8); Lymphocytes % (A) 11 %; MCH 28.6 pg (25.0-35.0); MCHC 30.7 g/dL (31.0-37.0); Mean Platelet Volume 7.1; Monocytes # (A) 0.3 k/uL (0-1.0); Monocytes % (A) 3 %; Neutrophils # (A) 8.6 k/uL (1.3-7.7); Neutrophils % (A) 84 %; Platelet Count 216 k/uL (150-450); RBC 2.84 m/uL (3.80-5.40); RDW 15.2 % (11.5-15.5); WBC 10.2 k/uL (3.8-10.6)
[2018-06-12 06:14] LABS: Anion Gap 10 mmol/L; Blood Urea Nitrogen 19 mg/dL (7-17); Carbon Dioxide 17 mmol/L (22-30); Chloride 115 mmol/L (98-107); Glucose 121 mg/dL (74-99); Magnesium 1.8 mg/dL (1.6-2.3); Phosphorus 3.3 mg/dL (2.5-4.5); Potassium 3.4 mmol/L (3.5-5.1); Sodium 142 mmol/L (137-145)
--- NOTE | 2018-06-12 08:01 | XR ---
EXAMINATION TYPE: XR chest 1V DATE OF EXAM: 06/12/2018 COMPARISON: Prior chest x-ray 06/11/2018 HISTORY: Pulmonary fibrosis TECHNIQUE: Single frontal view of the chest is obtained. FINDINGS: There is been some interval improvement in aeration in left lung, persistent airspace dise ase is noted. No evident pneumothorax or pleural effusion. Patient is rotated. Heart size may be acce ntuated by rotation. The aorta is dense. There is eventration of the right hemidiaphragm. Postop caba ges are noted to the abdomen. Lung volumes are low. IMPRESSION: Improved aeration left lung.
[2018-06-12] MEDS: LEVOFLOXACIN 750MG-D5W PMX 750 MG in DEXTROSE/WATER 1 150ML.BAG IVPB SCH (08:17)
[2018-06-12] MEDS: MEROPENEM 1 GM in SODIUM CHLORIDE 0.9% 100 ML IVPB SCH ×2 (08:17→15:16)
[2018-06-12] MEDS: MAGNESIUM SULFATE-D5W PMX 1 GM in DEXTROSE/WATER 1 100ML.BAG IVPB SCH ×2 (09:23→10:49)
[2018-06-12] MEDS: ENOXAPARIN 40 MG/0.4 ML SYRINGE SQ SCH (09:23)
[2018-06-12] MEDS: PANTOPRAZOLE 40 MG/10 ML VIAL IV SCH (09:23)
[2018-06-12] MEDS: DOCUSATE 100 MG CAP PO SCH ×2 (09:24→21:58)
[2018-06-12] MEDS: MAGNESIUM OXIDE 400 MG TAB PO SCH ×2 (09:24→21:54)
[2018-06-12] MEDS: OXYBUTYNIN 10 MG TAB.ER.24 PO SCH (09:24)
[2018-06-12] MEDS: SENNOSIDES 8.6 MG TAB PO SCH ×2 (09:25→21:55)
--- NOTE | 2018-06-12 10:05 | P.CONS ---
History of Present Illness - Reason for Consult Consult date: 06/12/18 - History of Present Illness This is a 67-year-old female patient well-known to ID service as she has been treated in the past for multiple admissions for acute respiratory failure requiring intubation, pneumonia and sepsis as well as bacteremia with IV antibiotic treatment in the past. Patient presented from [facility] with mental status changes, lethargy. She was found to have fever of 102.3, tachycardia and tachypneic. Chest x-ray showed extensive consolidation of left lung and patient has had ongoing thick brown purulent sputum and cough. Influenza testing was negative for a and B, white count was 10.2, hemoglobin 8.1. The patient was initially admitted to the [facility] floor and then transferred to ICU due to mental status changes. Patient continues to have ongoing confusion. She has not required vasopressors, vital signs of been stable and she has been afebrile. She has been treated with a combination of meropenem, vancomycin and Levaquin. Her previous urine culture in January was Proteus and ESBL E. coli. She does have chronic wounds to the lower extremity and stage II ulcer to the buttocks. She has had 2 CAT scans of the brain which are essentially negative. She is not eating or drinking more than a couple bites. Her urine output has been adequate. No diarrhea as noted she has had a Coffey catheter placed since admission. Review of Systems ROS unobtainable: due to mental status Past Medical History Past Medical History: Atrial Fibrillation, Diabetes Mellitus, Deep Vein Thrombosis (DVT), Fibromyalgia, GI Bleed, Hyperlipidemia, Hypertension, Pneumonia, Renal Disease, Skin Disorder Additional Past Medical History / Comment(s): Chronic blood loss anemia, hypertension, hyperlipidemia, fibromyalgia, chronic stage III renal failure, morbid obesity, DVT left lower leg with a previous IVC filter in place, dermatitis, gastric ulcer with a previous Clinton-en-Y gastric bypass surgery, chronic lower back pain, morbid obesity, previous history of severe sepsis w/ septic shock including septicemia with MRSA, SVT, DM type 2, hemorrhoids, cellulitis of left lower extremity, dysphagia, falls, muscle weakness, pneumonia , sleep apnea, bilateral tinnitus, atrial fibrillation, UTI. Left eye contusion/ left lower leg laceration - surgically repaired, Right heel pressure ulcer - healed, peripheral neuropathy (bilateral hands and feet), migraines, eczema, sinus problems, lower GI bleed. 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 Past Anesthesia/Blood Transfusion Reactions: Blood Transfusion Reaction Additional Past Anesthesia/Blood Transfusion Reaction / Comm: Per chart unspecified reaction. Past Psychological History: Anxiety, Depression Additional Psychological History / Comment(s): Patient is now in extended care. No longer live independently. Does not have any significant family. Was a tobacco smoker stopping several years ago. She has history of smoking 1.5-2 pack per day for 27 years and quit in 1993. She drinks alcohol rarely. 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 No animal exposures. Smoking Status: Former smoker Past Alcohol Use History: None Reported Additional Past Alcohol Use History / Comment(s): She has history of smoking 2 packs per day for 27 years and quit in 1993. She drinks alcohol rarely. 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 Past Drug Use History: Marijuana Additional Drug Use History / Comment(s): . - Past Family History Father Family Medical History: Myocardial Infarction ([place]) Additional Family Medical History / Comment(s): AT AGE 46-[place] Mother Family Medical History: Diabetes Mellitus Additional Family Medical History / Comment(s): AT AGE 66 FROM COMPLICATIONS FROM DM Sister(s) Family Medical History: Diabetes Mellitus Brother(s) Family Medical History: Diabetes Mellitus Daughter(s) Family Medical History: Cancer Son(s) Family Medical History: No Reported History Medications and Allergies Home Medications Medication Instructions Recorded Confirmed Type Atorvastatin [Lipitor] 40 mg PO HS 08/30/15 06/10/18 History Polyethylene Glycol 3350 [Miralax] 17 gm PO DAILY 06/29/16 06/10/18 History Sennosides [Senokot] 17.2 mg PO BID 05/22/17 06/10/18 History Acetaminophen Tab [Tylenol] 650 mg PO Q6H PRN 07/29/17 06/10/18 History Bisacodyl [Dulcolax] 10 mg RECTAL DAILY PRN 11/25/17 06/10/18 History Biotin 300 mcg PO HS 01/05/18 06/10/18 History Calcium Carbonate/Vitamin D3 1 tab PO HS 01/05/18 06/10/18 History [Calcium 500-Vit D3 200 Tablet] Multivitamins, Thera [Multivitamin 1 tab PO HS 01/05/18 06/10/18 History (formulary)] Oxybutynin Chloride [Oxybutynin 10 mg PO DAILY 01/05/18 06/10/18 History Chloride ER] Pregabalin [Lyrica] 75 mg PO TID 01/05/18 06/10/18 History rOPINIRole HCL [Requip] 0.5 mg PO HS 01/05/18 06/10/18 History Magnesium Oxide [Mag-Ox] 400 mg PO BID 02/13/18 06/10/18 History Omeprazole 20 mg PO DAILY 02/13/18 06/10/18 History metFORMIN HCL [Glucophage] 500 mg PO BID 02/13/18 06/10/18 History Docusate [Colace] 100 mg PO BID cap 02/17/18 06/10/18 Rx Potassium Chloride ER [K-Dur 20] 20 meq PO HS tab.er.prt 02/17/18 06/10/18 Rx Baclofen [Lioresal] 10 mg PO Q6H 06/10/18 06/10/18 History Doxycycline Monohydrate [Monodox] 100 mg PO BID 06/10/18 06/10/18 History HYDROmorphone [Dilaudid] 4 mg PO Q12H PRN 06/10/18 06/10/18 History Loratadine [Claritin] 10 mg PO DAILY 06/10/18 06/10/18 History Morphine Sulfate ER [Ms Contin] 15 mg PO Q12HR PRN 06/10/18 06/10/18 History Nystatin/Triamcin 1 applicate TOPICAL BID 06/10/18 06/10/18 History [Nystatin-Triamcinolone Cream] Allergies Allergy/AdvReac Type Severity Reaction Status Date / Time adhesive tape Allergy Severe Rash/Hives Verified 06/10/18 11:15 cephalexin monohydrate Allergy Severe Rash/Hives Verified 06/10/18 11:15 [From Keflex] influenza virus vaccine, Allergy Severe Anaphylaxis Verified 06/10/18 11:15 specific [influenza virus vacc,specific] latex Allergy Severe Rash/Hives Verified 06/10/18 11:15 peanut Allergy Severe Anaphylaxis Verified 06/10/18 11:15 Penicillins Allergy Severe Swelling Verified 06/10/18 11:15 tetanus toxoid, adsorbed Allergy Intermediate Rash/Hives Verified 06/10/18 11:15 Influenza Virus Vaccines Allergy Anaphylaxis Verified 06/10/18 11:15 Physical Exam Vitals: Vital Signs Temp Pulse Pulse Resp BP Pulse Ox 06/12/18 07:00 91 16 142/102 98 06/12/18 06:00 99 14 162/76 96 06/12/18 05:00 96 14 148/72 96 06/12/18 04:00 98.2 F 92 16 141/75 96 06/12/18 03:00 88 12 145/71 97 06/12/18 02:00 92 12 134/73 97 06/12/18 01:00 97 20 148/91 96 06/12/18 00:00 99.1 F 89 20 145/67 97 06/11/18 23:00 85 18 153/70 97 06/11/18 22:00 90 16 151/89 97 06/11/18 21:00 90 14 154/70 97 06/11/18 20:00 98.9 F 97 14 153/70 96 06/11/18 19:00 92 21 150/73 94 L 06/11/18 18:00 96 21 151/74 97 06/11/18 17:00 100 12 153/67 96 06/11/18 16:00 100.5 F H 101 H 115 H 19 154/73 95 06/11/18 15:00 98 19 157/79 95 06/11/18 14:00 92 21 156/77 100 06/11/18 13:00 99 26 H 159/77 99 06/11/18 12:00 100.4 F H 101 H 115 H 13 151/70 99 06/11/18 11:00 86 21 151/72 97 06/11/18 10:00 93 17 145/73 100 Intake and Output 06/11/18 06/12/18 06/12/18 22:59 06:59 14:59 Intake Total 975 1100 125 Output Total 1265 1200 150 Balance -290 -100 -25 Intake: IV 875 1000 125 Sodium Chloride 0.9% 1, 875 1000 125 000 ml @ 125 mls/hr IV . Q8H [facility] Rx#:[id number] Intake, IV Titration 100 100 Amount Meropenem 1 gm In Sodium 100 100 Chloride 0.9% 100 ml @ 200 mls/hr IVPB Q8HR [facility] Rx#:[id number] Output: Urine 1265 1200 150 Other: Voiding Method Indwelling Catheter Indwelling Catheter Weight 95 kg 95 kg Gen: This is a obese 67-year-old female. She is in the ICU bed and appears to be comfortable but is a yelling out for pain, etc. HEENT: Head is atraumatic, normocephalic. Pupils equal, round. Sclerae is anicteric. Oral mucous membranes are moist. Patient is coughing up thick brown sputum. NECK: Supple. No JVD. No lymphadenopathy. No thyromegaly. LUNGS: Decreased breath sounds bilaterally with scattered rhonchi. No intercostal retractions. No accessory muscle usage. HEART: Regular rate and rhythm. No murmur. ABDOMEN: Soft. Bowel sounds are present. No masses. No tenderness. Coffey catheter draining joaquina urine. EXTREMITIES: Dressing in place to the left lower extremity was not removed for evaluation and defer to Dr. Bhatia. She has graft site to the left thigh NEUROLOGICAL: Patient is awake, and oriented x0. She was able to squeeze her hand but otherwise is not following directions. Results Results: Laboratory Results WBC 10.2 k/uL (3.8-10.6) 06/12/18 05:28 RBC 2.84 m/uL (3.80-5.40) L 06/12/18 05:28 Hgb 8.1 gm/dL (11.4-16.0) L 06/12/18 05:28 Hct 26.4 % (34.0-46.0) L 06/12/18 05:28 MCV 93.0 fL (80.0-100.0) 06/12/18 05:28 MCH 28.6 pg (25.0-35.0) 06/12/18 05:28 MCHC 30.7 g/dL (31.0-37.0) L 06/12/18 05:28 RDW 15.2 % (11.5-15.5) 06/12/18 05:28 Plt Count 216 k/uL (150-450) 06/12/18 05:28 Neutrophils % 84 % 06/12/18 05:28 Lymphocytes % 11 % 06/12/18 05:28 Monocytes % 3 % 06/12/18 05:28 Eosinophils % 2 % 06/12/18 05:28 Basophils % 0 % 06/12/18 05:28 Neutrophils # 8.6 k/uL (1.3-7.7) H 06/12/18 05:28 Lymphocytes # 1.1 k/uL (1.0-4.8) 06/12/18 05:28 Monocytes # 0.3 k/uL (0-1.0) 06/12/18 05:28 Eosinophils # 0.2 k/uL (0-0.7) 06/12/18 05:28 Basophils # 0.0 k/uL (0-0.2) 06/12/18 05:28 Hypochromasia Marked 06/12/18 05:28 PT 10.4 sec (9.0-12.0) 06/10/18 07:08 INR 1.1 (<1.2) 06/10/18 07:08 APTT 25.2 sec (22.0-30.0) 06/10/18 07:08 Sodium 142 mmol/L (137-145) 06/12/18 05:28 Potassium 3.4 mmol/L (3.5-5.1) L 06/12/18 05:28 Chloride 115 mmol/L (98-107) H 06/12/18 05:28 Carbon Dioxide 17 mmol/L (22-30) L 06/12/18 05:28 Anion Gap 10 mmol/L 06/12/18 05:28 BUN 19 mg/dL (7-17) H 06/12/18 05:28 Creatinine 0.66 mg/dL (0.52-1.04) 06/12/18 05:28 Est GFR (CKD-EPI)AfAm >90 (>60 ml/min/1.73 sqM) 06/12/18 05:28 Est GFR (CKD-EPI)NonAf >90 (>60 ml/min/1.73 sqM) 06/12/18 05:28 Glucose 121 mg/dL (74-99) H 06/12/18 05:28 POC Glucose (mg/dL) 127 mg/dL (75-99) H 06/12/18 04:45 POC Glu Supervisory Investigative Specialist ID Michael Haynes 06/12/18 04:45 Lactic Ac Sepsis Rflx Y 06/10/18 07:39 Plasma Lactic Acid Maximus 0.8 mmol/L (0.7-2.0) 06/10/18 12:10 Calcium 9.0 mg/dL (8.4-10.2) 06/12/18 05:28 Phosphorus 3.3 mg/dL (2.5-4.5) 06/12/18 05:28 Magnesium 1.8 mg/dL (1.6-2.3) 06/12/18 05:28 Total Bilirubin 0.3 mg/dL (0.2-1.3) 06/10/18 07:08 AST 23 U/L (14-36) 06/10/18 07:08 ALT 18 U/L (9-52) 06/10/18 07:08 Alkaline Phosphatase 135 U/L (38-126) H 06/10/18 07:08 Ammonia <9 umol/L (<30) 06/10/18 17:26 Total Creatine Kinase 37 U/L (30-135) 06/10/18 07:08 CK-MB (CK-2) 1.4 ng/mL (0.0-2.4) 06/10/18 07:08 CK-MB (CK-2) Rel Index 3.8 06/10/18 07:08 Troponin I <0.012 ng/mL (0.000-0.034) 06/10/18 07:08 Total Protein 7.4 g/dL (6.3-8.2) 06/10/18 07:08 Albumin 3.2 g/dL (3.5-5.0) L 06/10/18 07:08 Triglycerides 77 mg/dL (<150) 06/11/18 04:48 Cholesterol 106 mg/dL (<200) 06/11/18 04:48 LDL Cholesterol, Calc 56 mg/dL (0-99) 06/11/18 04:48 HDL Cholesterol 35 mg/dL (40-60) L 06/11/18 04:48 Urine Color Yellow 06/10/18 08:20 Urine Appearance Clear (Clear) 06/10/18 08:20 Urine pH 6.0 (5.0-8.0) 06/10/18 08:20 Ur Specific [place] 1.009 (1.001-1.035) 06/10/18 08:20 Urine Protein Negative (Negative) 06/10/18 08:20 Urine Glucose (UA) Negative (Negative) 06/10/18 08:20 Urine Ketones Negative (Negative) 06/10/18 08:20 Urine Blood Negative (Negative) 06/10/18 08:20 Urine Nitrite Negative (Negative) 06/10/18 08:20 Urine Bilirubin Negative (Negative) 06/10/18 08:20 Urine Urobilinogen <2.0 mg/dL (<2.0) 06/10/18 08:20 Ur Leukocyte Esterase Small (Negative) H 06/10/18 08:20 Urine RBC 1 /hpf (0-5) 06/10/18 08:20 Urine WBC 11 /hpf (0-5) H 06/10/18 08:20 Ur Squamous Epith Cells <1 /hpf (0-4) 06/10/18 08:20 Urine Bacteria Rare /hpf (None) H 06/10/18 08:20 Influenza Type A RNA Not Detected (Not Detectd) 06/10/18 08:25 Influenza Type B (PCR) Not Detected (Not Detectd) 06/10/18 08:25 CBC & Chem 7: 06/12/18 05:28 06/12/18 05:28 Labs: Abnormal Lab Results - Last 24 Hours (Table) 06/11/18 06/11/18 06/12/18 Range/Units 04:48 13:29 01:46 RBC (3.80-5.40) m/uL Hgb (11.4-16.0) gm/dL Hct (34.0-46.0) % MCHC (31.0-37.0) g/dL Neutrophils # (1.3-7.7) k/uL Potassium (3.5-5.1) mmol/L Chloride (98-107) mmol/L Carbon Dioxide (22-30) mmol/L BUN (7-17) mg/dL Glucose (74-99) mg/dL POC Glucose (mg/dL) 149 H 134 H (75-99) mg/dL HDL Cholesterol 35 L (40-60) mg/dL 06/12/18 06/12/18 06/12/18 Range/Units 04:45 05:28 05:28 RBC 2.84 L (3.80-5.40) m/uL Hgb 8.1 L (11.4-16.0) gm/dL Hct 26.4 L (34.0-46.0) % MCHC 30.7 L (31.0-37.0) g/dL Neutrophils # 8.6 H (1.3-7.7) k/uL Potassium 3.4 L (3.5-5.1) mmol/L Chloride 115 H (98-107) mmol/L Carbon Dioxide 17 L (22-30) mmol/L BUN 19 H (7-17) mg/dL Glucose 121 H (74-99) mg/dL POC Glucose (mg/dL) 127 H (75-99) mg/dL HDL Cholesterol (40-60) mg/dL Microbiology - Last 24 Hours (Table) 06/11/18 04:48 Blood Culture - Preliminary Blood No Growth after 24 hours 06/11/18 16:25 Gram Stain - Preliminary Sputum Sputum Culture - Preliminary 06/10/18 08:20 Urine Culture - Final Urine,Catheterized Assessment and Plan Plan: This is a 67-year-old female patient presented to the hospital with infectious metabolic encephalopathy, sepsis secondary to gram-negative pneumonia. Patient is currently on Levaquin, meropenem and vancomycin. She has had previous urine culture with Proteus and ESBL E. coli in January. Local wound care will be addressed. Continue supportive care. Further recommendations as patient progresses. The above dictated assessment and findings were discussed with Dr. Bhatia. The impression and plan of care have been directed as dictated. Janet Bajwa nurse practitioner acting as scribe for Dr. Bhatia.
[2018-06-12] MEDS: VANCOMYCIN 1,250 MG in SODIUM CHLORIDE 0.9% 250 ML IVPB SCH (10:48)
[2018-06-12 13:32] VITALS: BMI 38.2
--- NOTE | 2018-06-12 14:07 | P.PN ---
Subjective Progress Note Date: 06/12/18 Principal diagnosis: Acute left lung pneumonia, senior care acquired. Consider gram-negative pneumonia. 67-year-old patient, sent over to the hospital because of altered mentation. The patient is unable to give any information. She is lethargic and she cannot provide any history. She is a senior care resident. The patient has no significant leukocytosis. Blood work and electrodes are all within normal limits. UA has also been within normal limits. She was however febrile and she came in with a temperature of 102. Her most recent temperatures 100.4. Slightly tachycardic. Hemodynamically stable and the patient is not requiring any pressors. The patient is on 3 L of oxygen by nasal cannula. Repeat chest x -ray from today shows extensive consolidation of the left lung and the patient is producing copious amount of thick purulent respiratory secretions and she has a harsh cough. For now, the patient is currently on a combination of IV Merrem, vancomycin and Levaquin. The choice was made based on her previous history of ESBL infections in the urine/ESBL exposure. This will give also the patient gram-negative and MRSA coverage. The patient also has chronic wounds in lower extremity and stage II ulcer in her buttocks. CAT scan of the brain was essentially negative. There is no neck stiffness. No seizure activity. No drug overdose. No clear-cut history of aspiration. She is able to swallow properly for now. Patient was reevaluated today on 06/12/2018, patient remains confused, altered mental status, but not in any form of respiratory distress. Patient remains on good antibiotics coverage for presumptive gram-negative pneumonia, possible ESBL patient had intermittent episodes of confusion and agitation earlier today , but presently seems to be calm and in no distress. All labs, chest x-ray, medications were reviewed. Objective - Vital Signs Vital signs: Vital Signs Temp 98.9 F 06/12/18 08:00 Pulse 89 06/12/18 13:00 Resp 15 06/12/18 13:00 BP 152/65 06/12/18 13:00 Pulse Ox 94 L 06/12/18 13:00 Intake & Output 06/11/18 06/12/18 06/12/18 18:59 06:59 18:59 Intake Total 1425 1600 975 Output Total 1940 1800 850 Balance -515 -200 125 Weight 83.9 kg 95 kg 95 kg Intake: IV 875 1500 375 Sodium Chloride 0.9% 1, 875 1500 375 000 ml @ 125 mls/hr IV . Q8H [facility] Rx#:[id number] Intake, IV Titration 550 100 600 Amount Levofloxacin 750Mg-D5w 100 150 Pmx 750 mg In Dextrose/ Water 1 150ml.bag @ 100 mls/hr IVPB Q24H [facility] Rx#: [id number] Magnesium Sulfate-D5w Pmx 100 1 gm In Dextrose/Water 1 100ml.bag @ 100 mls/hr IVPB Q1H [facility] Rx#: [id number] Magnesium Sulfate-D5w Pmx 100 1 gm In Dextrose/Water 1 100ml.bag @ 100 mls/hr IVPB Q1H [facility] Rx#: [id number] Meropenem 1 gm In Sodium 100 100 100 Chloride 0.9% 100 ml @ 200 mls/hr IVPB Q8HR [facility] Rx#:[id number] Vancomycin 1,250 mg In 250 250 Sodium Chloride 0.9% 250 ml @ 125 mls/hr IVPB Q24H [facility] Rx#:[id number] Output: Urine 1940 1800 850 Other: Voiding Method Indwelling Catheter Indwelling Catheter Indwelling Catheter - Exam Physical Exam: Revealed a 67-year-old female, in bed, comfortable, intermittent episodes of yelling out of pain, confused, in no distress. Head: Atraumatic, normocephalic. HEENT:[Neck is supple.] [No neck masses.] [No thyromegaly.] [No JVD.] PERRLA, EOMI, no icterus. Chest: [Diminished breath sound bilaterally, scattered rhonchi, no wheezes. Symmetrical chest expansion, no chest wall tenderness, no accessory muscles use. Cardiac Exam: [Normal S1 and S2, no S3 gallop, no murmur.] Abdomen: [Soft, nontender, no megaly, no rebound, no guarding, normal bowel sounds.] Extremities: [No clubbing, no edema, no cyanosis.] Neurological Exam: Arousable, oriented 0, follows very simple instructions only. Psychiatric: Poor mental status examination. Blunt affect. Skin: Dressing noted on both lower extremities, according to the nurse had superficial ulcerations and cellulitis especially in the left lower extremity. - Labs CBC & Chem 7: 06/12/18 05:28 06/12/18 05:28 Labs: Abnormal Lab Results - Last 24 Hours (Table) 06/11/18 06/12/18 06/12/18 Range/Units 04:48 01:46 04:45 RBC (3.80-5.40) m/uL Hgb (11.4-16.0) gm/dL Hct (34.0-46.0) % MCHC (31.0-37.0) g/dL Neutrophils # (1.3-7.7) k/uL Potassium (3.5-5.1) mmol/L Chloride (98-107) mmol/L Carbon Dioxide (22-30) mmol/L BUN (7-17) mg/dL Glucose (74-99) mg/dL POC Glucose (mg/dL) 134 H 127 H (75-99) mg/dL HDL Cholesterol 35 L (40-60) mg/dL 06/12/18 06/12/18 Range/Units 05:28 05:28 RBC 2.84 L (3.80-5.40) m/uL Hgb 8.1 L (11.4-16.0) gm/dL Hct 26.4 L (34.0-46.0) % MCHC 30.7 L (31.0-37.0) g/dL Neutrophils # 8.6 H (1.3-7.7) k/uL Potassium 3.4 L (3.5-5.1) mmol/L Chloride 115 H (98-107) mmol/L Carbon Dioxide 17 L (22-30) mmol/L BUN 19 H (7-17) mg/dL Glucose 121 H (74-99) mg/dL POC Glucose (mg/dL) (75-99) mg/dL HDL Cholesterol (40-60) mg/dL Microbiology - Last 24 Hours (Table) 06/11/18 16:25 Gram Stain - Preliminary Sputum Sputum Culture - Preliminary Gram Neg Bacilli 06/11/18 04:48 Blood Culture - Preliminary Blood No Growth after 24 hours 06/10/18 08:20 Urine Culture - Final Urine,Catheterized Assessment and Plan Assessment: Impression: 1 acute left lung pneumonia, likely gram-negative in nature, could even be ESBL type of pneumonia considering her history. 2 acute hypoxic respiratory failure secondary to above. 3 paroxysmal atrial fibrillation, presently in sinus rhythm. 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 7 multiple comorbidities including metabolic encephalopathy, chronic lower extremities ulcerations and cellulitis, previous deep vein thromboses and pulmonary embolism, had previous IVC filter placement, fibromyalgia, previous GI bleeding and gastric ulcer disease, hyperlipidemia, chronic anemia, history of ESBL urinary tract infection and previous MRSA urinary tract infection. Recommendation: Continue present treatment plan, patient is being followed by many consultants, could be transferred out of the ICU to a regular medical floor , and I believe her mental status changes are mostly related to metabolic encephalopathy. We'll continue to follow. Time with Patient: Less than 30
[2018-06-12 15:15] LABS: Hemoglobin A1C 6.2 % (4.0-6.0)
--- NOTE | 2018-06-12 17:48 | EEG ---
ELECTROENCEPHALOGRAM REPORT DATE OF SERVICE: 06/12/2018 REASON FOR TESTING: Altered mental status. DESCRIPTION OF THE PROCEDURE: This EEG was performed using a 21-channel digital electroencephalograph, following international 10-20 system. DESCRIPTION OF THE RECORDING: From the beginning of the tracing, and with the patient's eyes closed, the background rhythm was mostly consisting of 9 Hz alpha frequency in the posterior occipital leads. No obvious asymmetry is seen. Photic stimulation was performed with a minimal driving response seen. No pathological waves were elicited. Occasional movement and muscle artifacts are seen. Occasional frontal slowing is seen. Hyperventilation was not performed. The patient remains awake throughout the tracing. No epileptiform discharges were seen. Her EKG lead showed an irregularly irregular rhythm with a normal rate. INTERPRETATION: This awake EEG is abnormal due to occasional frontal slowing seen on the EEG tracing. This could be consistent with a mild encephalopathy. No epileptiform discharges were seen. The absence of epileptiform discharges does not rule out the diagnosis of epilepsy; therefore clinical correlation is recommended. Of note, her EKG lead showed an irregularly irregular rhythm with a normal rate. MMODL / IJN: [id number] /
[2018-06-12] MEDS ORDERED: Potassium Replacement Protocol 1 EACH MISC MISCELLANE PRN (18:22)
[2018-06-12] MEDS: MULTIVITAMINS, THERA 1 EACH TAB PO SCH (21:54)
[2018-06-12] MEDS: CALCIUM CARB-VIT D 500MG-200UN 1 EACH TAB PO SCH (21:54)
[2018-06-12] MEDS: ATORVASTATIN 40 MG TAB PO SCH (21:54)
--- NOTE | 2018-06-13 00:18 | P.CON ---
Consult Note - . Consult date: 06/12/18 Assessment/Plan:: This is a 67-year-old female patient well-known to ID service as she has been treated in the past for multiple admissions for acute respiratory failure requiring intubation, pneumonia and sepsis as well as bacteremia with IV antibiotic treatment in the past. Patient presented from [facility] with mental status changes, lethargy. She was found to have fever of 102.3, tachycardia and tachypneic. Chest x-ray showed extensive consolidation of left lung and patient has had ongoing thick brown purulent sputum and cough. Influenza testing was negative for a and B, white count was 10.2, hemoglobin 8.1. The patient was initially admitted to the [facility] floor and then transferred to ICU due to mental status changes. Patient continues to have ongoing confusion. She has not required vasopressors, vital signs of been stable and she has been afebrile. She has been treated with a combination of meropenem, vancomycin and Levaquin. Her previous urine culture in January was Proteus and ESBL E. coli. She does have chronic wounds to the lower extremity and stage II ulcer to the buttocks. She has had 2 CAT scans of the brain which are essentially negative. She is not eating or drinking more than a couple bites. Her urine output has been adequate. No diarrhea as noted she has had a Coffey catheter placed since admission. Please see the counselor as dictated by nurse practitioner Mrs. Janet Bajwa. Patient is with altered mental status, moaning and seems to be worsening in the last time she was seen. Patient does have evidence of the ulceration to the left leg which is actually much improved since her last evaluation. She has evidence of a pressure ulceration of the coccyx area present on admission that appears to be stage III with some scant drainage but no significant surrounding infection at this time. Therahoney will be applied to the left lateral leg. The sacral Optifoam dressing is applied to that area. Continue to offload her with side to side turning. Appears to have evidence of the left lower lobe pneumonia in counseling for antibiotic therapy with her history of ESBL infection utilize meropenem and also Levaquin at this time until there is further data. Cultures are in process which will further help de-escalate antibiotic therapy as possible. Continue ongoing supportive care. Her mentation has declined further from her last evaluation. I agree with her evaluation assessment and plan as dictated by nurse practitioner Mrs. aJnet Bajwa.
[2018-06-13] MEDS: MEROPENEM 1 GM in SODIUM CHLORIDE 0.9% 100 ML IVPB SCH ×3 (00:28→17:20)
[2018-06-13] MEDS: POTASSIUM CHLORIDE 10 MEQ in WATER FOR INJECTION 1 100ML.BAG IVPB SCH ×4 (01:33→06:19)
[2018-06-13] MEDS: SODIUM CHLORIDE 0.9% 1,000 ML IV SCH ×3 (03:30→22:36)
[2018-06-13] MEDS: ENOXAPARIN 40 MG/0.4 ML SYRINGE SQ SCH (07:32)
[2018-06-13] MEDS: PANTOPRAZOLE 40 MG/10 ML VIAL IV SCH (07:32)
[2018-06-13] MEDS: DOCUSATE 100 MG CAP PO SCH ×2 (07:35→22:24)
[2018-06-13] MEDS: SENNOSIDES 8.6 MG TAB PO SCH ×2 (07:35→22:23)
[2018-06-13] MEDS: MAGNESIUM OXIDE 400 MG TAB PO SCH ×2 (07:35→22:33)
[2018-06-13] MEDS: OXYBUTYNIN 10 MG TAB.ER.24 PO SCH (07:35)
[2018-06-13] MEDS ORDERED: VANCOMYCIN TROUGH DUE 1 EACH MISC MISCELLANE ONE (08:00)
[2018-06-13 08:04] LABS: Basophils % (A) 0 %; Eosinophils # (A) 0.1 k/uL (0-0.7); Eosinophils % (A) 1 %; HCT 29.5 % (34.0-46.0); HGB 9.2 gm/dL (11.4-16.0); Hypochromasia Marked; Lymphocytes # (A) 1.3 k/uL (1.0-4.8); Lymphocytes % (A) 14 %; MCHC 31.3 g/dL (31.0-37.0); MCV 92.8 fL (80.0-100.0); Mean Platelet Volume 7.1; Monocytes # (A) 0.3 k/uL (0-1.0); Monocytes % (A) 3 %; Neutrophils # (A) 7.6 k/uL (1.3-7.7); Neutrophils % (A) 81 %; Platelet Count 275 k/uL (150-450); RBC 3.18 m/uL (3.80-5.40); RDW 15.1 % (11.5-15.5); WBC 9.4 k/uL (3.8-10.6)
[2018-06-13 08:06] LABS: Anion Gap 14 mmol/L; Blood Urea Nitrogen 18 mg/dL (7-17); Calcium 9.1 mg/dL (8.4-10.2); Carbon Dioxide 14 mmol/L (22-30); Chloride 115 mmol/L (98-107); Glucose 110 mg/dL (74-99); Magnesium 1.9 mg/dL (1.6-2.3); Phosphorus 3.6 mg/dL (2.5-4.5); Potassium 3.7 mmol/L (3.5-5.1); Sodium 143 mmol/L (137-145)
[2018-06-13] MEDS: LEVOFLOXACIN 750MG-D5W PMX 750 MG in DEXTROSE/WATER 1 150ML.BAG IVPB SCH (08:15)
[2018-06-13] MEDS: VANCOMYCIN 1,250 MG in SODIUM CHLORIDE 0.9% 250 ML IVPB SCH (09:09)
--- NOTE | 2018-06-13 11:50 | P.PN ---
Subjective Progress Note Date: 06/13/18 Principal diagnosis: Acute left lung pneumonia, senior living acquired secondary to Proteus mirabilis. 67-year-old patient, sent over to the hospital because of altered mentation. The patient is unable to give any information. She is lethargic and she cannot provide any history. She is a senior living resident. The patient has no significant leukocytosis. Blood work and electrodes are all within normal limits. UA has also been within normal limits. She was however febrile and she came in with a temperature of 102. Her most recent temperatures 100.4. Slightly tachycardic. Hemodynamically stable and the patient is not requiring any pressors. The patient is on 3 L of oxygen by nasal cannula. Repeat chest x -ray from today shows extensive consolidation of the left lung and the patient is producing copious amount of thick purulent respiratory secretions and she has a harsh cough. For now, the patient is currently on a combination of IV Merrem, vancomycin and Levaquin. The choice was made based on her previous history of ESBL infections in the urine/ESBL exposure. This will give also the patient gram-negative and MRSA coverage. The patient also has chronic wounds in lower extremity and stage II ulcer in her buttocks. CAT scan of the brain was essentially negative. There is no neck stiffness. No seizure activity. No drug overdose. No clear-cut history of aspiration. She is able to swallow properly for now. Patient was reevaluated today on 06/12/2018, patient remains confused, altered mental status, but not in any form of respiratory distress. Patient remains on good antibiotics coverage for presumptive gram-negative pneumonia, possible ESBL patient had intermittent episodes of confusion and agitation earlier today , but presently seems to be calm and in no distress. All labs, chest x-ray, medications were reviewed. The patient is seen again today 06/13/2018 in follow-up on the surgical floor. She is currently sitting up in bed. She is awake and alert in no acute distress. She is still somewhat agitated and confused but more cooperative. She is maintaining O2 saturations in the 90s on room air. She's been afebrile. Hemodynamically stable. Sputum was positive for Proteus mirabilis. White count 9.4. Hemoglobin 9.2. Bicarb 14. Creatinine 0.65. She is currently on vancomycin, meropenem, Levaquin. Objective - Vital Signs Vital signs: Vital Signs Temp 98.5 F 06/13/18 07:20 Pulse 95 06/13/18 07:20 Resp 21 06/13/18 07:20 BP 151/84 06/13/18 07:20 Pulse Ox 93 L 06/13/18 07:20 Intake & Output 06/12/18 06/13/18 06/13/18 18:59 06:59 18:59 Intake Total 1225 1100 Output Total 1000 355 350 Balance 225 745 -350 Weight 95 kg 95 kg Intake: IV 625 1100 Sodium Chloride 0.9% 1, 625 1100 000 ml @ 125 mls/hr IV . Q8H [facility] Rx#:[id number] Intake, IV Titration 600 Amount Levofloxacin 750Mg-D5w 150 Pmx 750 mg In Dextrose/ Water 1 150ml.bag @ 100 mls/hr IVPB Q24H [facility] Rx#: [id number] Magnesium Sulfate-D5w Pmx 100 1 gm In Dextrose/Water 1 100ml.bag @ 100 mls/hr IVPB Q1H [facility] Rx#: [id number] Meropenem 1 gm In Sodium 100 Chloride 0.9% 100 ml @ 200 mls/hr IVPB Q8HR [facility] Rx#:[id number] Vancomycin 1,250 mg In 250 Sodium Chloride 0.9% 250 ml @ 125 mls/hr IVPB Q24H [facility] Rx#:[id number] Output: Urine 1000 350 350 Stool 5 Other: Voiding Method Indwelling Catheter Indwelling Catheter Indwelling Catheter - Exam Physical Exam: Revealed a 67-year-old female, in bed, comfortable, intermittent episodes of yelling out, confused, in no distress. Head: Atraumatic, normocephalic. HEENT:Neck is supple. No neck masses. No thyromegaly. No JVD. PERRLA, EOMI, no icterus. Chest: Diminished breath sound bilaterally, scattered rhonchi, no wheezes. Symmetrical chest expansion, no chest wall tenderness, no accessory muscles use. Cardiac Exam: Normal S1 and S2, no S3 gallop, no murmur.] Abdomen: [Soft, nontender, no megaly, no rebound, no guarding, normal bowel sounds.] Extremities: [No clubbing, no edema, no cyanosis.] Neurological Exam: Arousable, oriented 0, follows very simple instructions only. Psychiatric: Poor mental status examination. Blunt affect. Skin: Dressing noted on both lower extremities, according to the nurse had superficial ulcerations and cellulitis especially in the left lower extremity. - Labs CBC & Chem 7: 06/13/18 06:57 06/13/18 06:57 Labs: Abnormal Lab Results - Last 24 Hours (Table) 06/11/18 06/13/18 06/13/18 Range/Units 04:48 06:57 06:57 RBC 3.18 L (3.80-5.40) m/uL Hgb 9.2 L (11.4-16.0) gm/dL Hct 29.5 L (34.0-46.0) % Chloride 115 H (98-107) mmol/L Carbon Dioxide 14 L (22-30) mmol/L BUN 18 H (7-17) mg/dL Glucose 110 H (74-99) mg/dL Hemoglobin A1c 6.2 H (4.0-6.0) % Microbiology - Last 24 Hours (Table) 06/11/18 16:25 Gram Stain - Final Sputum Sputum Culture - Final Proteus mirabilis 06/11/18 04:48 Blood Culture - Preliminary Blood No Growth after 48 hours Assessment and Plan Assessment: Impression: 1 acute left lung pneumonia secondary to Proteus mirabilis. 2 acute hypoxic respiratory failure secondary to above. Recovered. 3 paroxysmal atrial fibrillation, presently in sinus rhythm. 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 7 multiple comorbidities including metabolic encephalopathy, chronic lower extremities ulcerations and cellulitis, previous deep vein thromboses and pulmonary embolism, had previous IVC filter placement, fibromyalgia, previous GI bleeding and gastric ulcer disease, hyperlipidemia, chronic anemia, history of ESBL urinary tract infection and previous MRSA urinary tract infection. Plan: The patient was seen and evaluated by Dr. Gardner. She is currently stable from the pulmonary standpoint. We'll continue with current antibiotics per ID including vancomycin, meropenem, Levaquin. We will repeat the chest x-ray in a.m. Continue the current treatment plan. We will increase her activity as tolerated. We'll continue to follow. I, the cosigning physician, performed a history & physical examination of the patient. Lungs sounds with few scattered rhonchi. Maintaining good O2 saturations in the 90s on room air. I discussed the assessment and plan of care with my nurse practitioner, Muriel Edmonds. I attest to the above note as dictated by her.
--- NOTE | 2018-06-13 18:18 | P.PN ---
Subjective Progress Note Date: 06/12/18 Progress note being dictated for Dr. Lara. Interval history:Patient is a 67-year-old female with a known history of diabetes type 2 [id number], fibromyalgia, chronic pain, hyperlipidemia and multiple other medical problems including bilateral lower extremity ulcers with skin flaps and decubitus ulcers was sent from [facility] due to altered mental status. Patient was febrile and tachycardic and tachypneic on admission. CT head showed cerebral atrophy. No intracranial process. Chest x-ray showed pulmonary fibrosis. EKG showed sinus tachycardia. Patient is currently lying in the bed comfortably and lethargic, altered mental status. Otherwise cannot provide any history. Lactic acid 2.1. No leukocytosis. Patient is currently on morphine, Dilaudid and Lyrica at [facility] 06/11/2018 Patient was transferred to ICU last night due to altered mental status. Repeat CT head is negative. Chest x-ray showed worsening obesity of the left lung. Patient will be continued on IV antibiotics and meropenem was added along with vancomycin and levofloxacin. Patient is awake alert but agitated today. No fever no chills. No leukocytosis. 06/12/2018 maintained on IV antibiotics as per infectious disease. T-max 100.5. Confused. Evaluated by neurology with recommendations noted. EEG pending. Chest x-ray reporting persistent airspace disease, improved left lung aeration. Potassium 3.4, receiving supplementation. Review of systems unable to obtain as patient currently confused, slightly agitated Active Medications Atorvastatin Calcium (Lipitor) 40 mg PO HS [facility] Last Admin: 06/11/18 23:12 Dose: Not Given Bisacodyl (Dulcolax) 10 mg RECTAL DAILY PRN PRN Reason: Constipation Calcium Carbonate (Oscal 500+D) 1 each PO [facility] Last Admin: 06/11/18 23:14 Dose: Not Given Docusate Sodium (Colace) 100 mg PO BID [facility] Last Admin: 06/12/18 09:24 Dose: Not Given Enoxaparin Sodium (Lovenox) 40 mg SQ DAILY [facility] Last Admin: 06/12/18 09:23 Dose: 40 mg Levofloxacin 750 mg/ IV (Solution) 150 mls @ 100 mls/hr IVPB Q24H [facility] Last Admin: 06/12/18 08:17 Dose: 100 mls/hr Sodium Chloride (Saline 0.9%) 1,000 mls @ 125 mls/hr IV .Q8H [facility] Last Admin: 06/12/18 15:17 Dose: 125 mls/hr Vancomycin HCl 1,250 mg/ (Sodium Chloride) 250 mls @ 125 mls/hr IVPB Q24H [facility] Last Admin: 06/12/18 10:48 Dose: 125 mls/hr Meropenem 1 gm/ Sodium (Chloride) 100 mls @ 200 mls/hr IVPB Q8HR [facility]; Protocol Last Admin: 06/12/18 15:16 Dose: 200 mls/hr Magnesium Oxide (Mag-Ox) 400 mg PO BID [facility] Last Admin: 06/12/18 09:24 Dose: Not Given Miscellaneous Information (Magnesium Per Protocol) 1 each MISCELLANE DAILY PRN ; Protocol PRN Reason: Per Protocol Miscellaneous Information (Vancomycin Trough Due) 0 each MISCELLANE DIRECTED ONE Stop: 06/13/18 08:01 Multivitamins (Theragran) 1 each PO HS [facility] Last Admin: 06/11/18 23:15 Dose: Not Given Naloxone HCl (Narcan) 0.2 mg IV Q2M PRN PRN Reason: Opioid Reversal Oxybutynin Chloride (Ditropan Xl) 10 mg PO DAILY [facility] Last Admin: 06/12/18 09:24 Dose: Not Given Pantoprazole Sodium (Protonix) 40 mg IV DAILY [facility] Last Admin: 06/12/18 09:23 Dose: 40 mg Ropinirole HCl (Requip) 0.5 mg PO HS [facility] Last Admin: 06/11/18 23:16 Dose: Not Given Senna (Senokot) 17.2 mg PO BID [facility] Last Admin: 06/12/18 09:25 Dose: Not Given Objective - Vital Signs Vital signs: Vital Signs Temp 98.9 F 06/12/18 08:00 Pulse 102 H 06/12/18 16:00 Resp 18 06/12/18 16:00 BP 155/89 06/12/18 16:00 Pulse Ox 95 06/12/18 16:00 Intake & Output 06/11/18 06/12/18 06/12/18 18:59 06:59 18:59 Intake Total 1425 1600 1225 Output Total 1940 1800 1000 Balance -515 -200 225 Weight 83.9 kg 95 kg 95 kg Intake: IV 875 1500 625 Sodium Chloride 0.9% 1, 875 1500 625 000 ml @ 125 mls/hr IV . Q8H [facility] Rx#:[id number] Intake, IV Titration 550 100 600 Amount Levofloxacin 750Mg-D5w 100 150 Pmx 750 mg In Dextrose/ Water 1 150ml.bag @ 100 mls/hr IVPB Q24H [facility] Rx#: [id number] Magnesium Sulfate-D5w Pmx 100 1 gm In Dextrose/Water 1 100ml.bag @ 100 mls/hr IVPB Q1H [facility] Rx#: [id number] Magnesium Sulfate-D5w Pmx 100 1 gm In Dextrose/Water 1 100ml.bag @ 100 mls/hr IVPB Q1H [facility] Rx#: [id number] Meropenem 1 gm In Sodium 100 100 100 Chloride 0.9% 100 ml @ 200 mls/hr IVPB Q8HR [facility] Rx#:[id number] Vancomycin 1,250 mg In 250 250 Sodium Chloride 0.9% 250 ml @ 125 mls/hr IVPB Q24H [facility] Rx#:[id number] Output: Urine 1940 1800 1000 Other: Voiding Method Indwelling Catheter Indwelling Catheter Indwelling Catheter - Exam Patient is lying in the bed comfortably, no acute distress, awake alert and confused and agitated. Oriented 0. HEENT: Normocephalic. Neck is supple. Pupils reactive. Nostrils clear. Oral cavity is moist. Neck reveals no JVD, carotid bruits, or thyromegaly. CHEST EXAMINATION: Trachea is central. Symmetrical expansion. Bibasilar diminished air entry left greater than right. Scattered rhonchi CARDIAC: Normal S1, S2 with no gallops. No murmurs ABDOMEN: Soft. Bowel sounds normal. No organomegaly. No abdominal bruits. Extremities: 2+ edema and left lower extremities skin wound with serosanguineous drainage. Also has right thigh skin graft wound. No clubbing or cyanosis Neurologically awake, alert agitated. Able to move all his extremities. No focal deficits noted Skin: Dressing of bilateral lower legs clean dry and intact Psychiatric: Noncooperative. Could not be assessed. - Labs CBC & Chem 7: 06/13/18 06:57 06/13/18 06:57 Labs: Abnormal Lab Results - Last 24 Hours (Table) 06/11/18 06/12/18 06/12/18 Range/Units 04:48 01:46 04:45 RBC (3.80-5.40) m/uL Hgb (11.4-16.0) gm/dL Hct (34.0-46.0) % MCHC (31.0-37.0) g/dL Neutrophils # (1.3-7.7) k/uL Potassium (3.5-5.1) mmol/L Chloride (98-107) mmol/L Carbon Dioxide (22-30) mmol/L BUN (7-17) mg/dL Glucose (74-99) mg/dL POC Glucose (mg/dL) 134 H 127 H (75-99) mg/dL Hemoglobin A1c 6.2 H (4.0-6.0) % 06/12/18 06/12/18 Range/Units 05:28 05:28 RBC 2.84 L (3.80-5.40) m/uL Hgb 8.1 L (11.4-16.0) gm/dL Hct 26.4 L (34.0-46.0) % MCHC 30.7 L (31.0-37.0) g/dL Neutrophils # 8.6 H (1.3-7.7) k/uL Potassium 3.4 L (3.5-5.1) mmol/L Chloride 115 H (98-107) mmol/L Carbon Dioxide 17 L (22-30) mmol/L BUN 19 H (7-17) mg/dL Glucose 121 H (74-99) mg/dL POC Glucose (mg/dL) (75-99) mg/dL Hemoglobin A1c (4.0-6.0) % Microbiology - Last 24 Hours (Table) 06/11/18 16:25 Gram Stain - Preliminary Sputum Sputum Culture - Preliminary Gram Neg Bacilli 06/11/18 04:48 Blood Culture - Preliminary Blood No Growth after 24 hours 06/10/18 08:20 Urine Culture - Final Urine,Catheterized Assessment and Plan Assessment: Altered mental status likely due to toxic and metabolic encephalopathy and infection Acute Left lung pneumonia likely due to healthcare associated. Sputum culture pending Acute hypoxic respiratory failure secondary to the above Bilateral lower extremities cellulitis and skin ulcers Sepsis secondary to pneumonia and bilateral lower extremity cellulitis left greater than right Stage II sacral decubitus ulcers. Present on admission Lactic acidosis. Dehydration. Possible diabetic skin ulcers Diabetes type 2 [id number] History of DVT Fibromyalgia Hyperlipidemia Chronic blood loss anemia CK D stage III Obesity History of gastric ulcer with previous proximal Clinton-en-Y gastric bypass Chronic lower back pain History of MRSA History of falls Obstructive sleep apnea Bilateral tinnitus Paroxysmal atrial fibrillation History of left eye contusion/left lower leg ulceration Diabetic peripheral neuropathy History of migraine headaches Eczema History of lower GI bleed Anxiety/depression Osteoarthritis with history of left knee total arthroplasty Previous history of smoking and marijuana use Plan: Continue on current medication regime ,monitoring and symptomatic treatment. Maintain gentle IV fluid hydration, IV antibiotics as per ID. follow cultures closely. 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 Prognosis guarded given multiple complex medical issues. The impression and plan of care has been dictated as directed. : I performed a history and examination of this patient, discussed the same with the dictator. I agree with the dictator's note ,documented as a scribe. Any additional findings or plans will be noted.
--- NOTE | 2018-06-13 18:29 | P.PN ---
Subjective Progress Note Date: 06/13/18 Progress note being dictated for Dr. Lara. Interval history:Patient is a 67-year-old female with a known history of diabetes type 2 [id number], fibromyalgia, chronic pain, hyperlipidemia and multiple other medical problems including bilateral lower extremity ulcers with skin flaps and decubitus ulcers was sent from jail due to altered mental status. Patient was febrile and tachycardic and tachypneic on admission. CT head showed cerebral atrophy. No intracranial process. Chest x-ray showed pulmonary fibrosis. EKG showed sinus tachycardia. Patient is currently lying in the bed comfortably and lethargic, altered mental status. Otherwise cannot provide any history. Lactic acid 2.1. No leukocytosis. Patient is currently on morphine, Dilaudid and Lyrica at jail 06/11/2018 Patient was transferred to ICU last night due to altered mental status. Repeat CT head is negative. Chest x-ray showed worsening obesity of the left lung. Patient will be continued on IV antibiotics and meropenem was added along with vancomycin and levofloxacin. Patient is awake alert but agitated today. No fever no chills. No leukocytosis. 06/12/2018 maintained on IV antibiotics as per infectious disease. T-max 100.5. Confused. Evaluated by neurology with recommendations noted. EEG pending. Chest x-ray reporting persistent airspace disease, improved left lung aeration. Potassium 3.4, receiving supplementation. Review of systems unable to obtain as patient currently confused, slightly agitated Active Medications Atorvastatin Calcium (Lipitor) 40 mg PO HS [facility] Last Admin: 06/11/18 23:12 Dose: Not Given Bisacodyl (Dulcolax) 10 mg RECTAL DAILY PRN PRN Reason: Constipation Calcium Carbonate (Oscal 500+D) 1 each PO [facility] Last Admin: 06/11/18 23:14 Dose: Not Given Docusate Sodium (Colace) 100 mg PO BID [facility] Last Admin: 06/12/18 09:24 Dose: Not Given Enoxaparin Sodium (Lovenox) 40 mg SQ DAILY [facility] Last Admin: 06/12/18 09:23 Dose: 40 mg Levofloxacin 750 mg/ IV (Solution) 150 mls @ 100 mls/hr IVPB Q24H [facility] Last Admin: 06/12/18 08:17 Dose: 100 mls/hr Sodium Chloride (Saline 0.9%) 1,000 mls @ 125 mls/hr IV .Q8H [facility] Last Admin: 06/12/18 15:17 Dose: 125 mls/hr Vancomycin HCl 1,250 mg/ (Sodium Chloride) 250 mls @ 125 mls/hr IVPB Q24H [facility] Last Admin: 06/12/18 10:48 Dose: 125 mls/hr Meropenem 1 gm/ Sodium (Chloride) 100 mls @ 200 mls/hr IVPB Q8HR [facility]; Protocol Last Admin: 06/12/18 15:16 Dose: 200 mls/hr Magnesium Oxide (Mag-Ox) 400 mg PO BID [facility] Last Admin: 06/12/18 09:24 Dose: Not Given Miscellaneous Information (Magnesium Per Protocol) 1 each MISCELLANE DAILY PRN ; Protocol PRN Reason: Per Protocol Miscellaneous Information (Vancomycin Trough Due) 0 each MISCELLANE DIRECTED ONE Stop: 06/13/18 08:01 Multivitamins (Theragran) 1 each PO HS [facility] Last Admin: 06/11/18 23:15 Dose: Not Given Naloxone HCl (Narcan) 0.2 mg IV Q2M PRN PRN Reason: Opioid Reversal Oxybutynin Chloride (Ditropan Xl) 10 mg PO DAILY [facility] Last Admin: 06/12/18 09:24 Dose: Not Given Pantoprazole Sodium (Protonix) 40 mg IV DAILY [facility] Last Admin: 06/12/18 09:23 Dose: 40 mg Ropinirole HCl (Requip) 0.5 mg PO HS [facility] Last Admin: 06/11/18 23:16 Dose: Not Given Senna (Senokot) 17.2 mg PO BID [facility] Last Admin: 06/12/18 09:25 Dose: Not Given 06/13/2018 transferred out of ICU to [facility] yesterday. Hemoglobin improving, currently 9.2. Sputum culture reporting Proteus mirabilis. Maintained on IV antibiotics of vancomycin, Merrem, Levaquin. Remains confused with mild agitation. Afebrile. Objective - Vital Signs Vital signs: Vital Signs Temp 98.9 F 06/13/18 15:00 Pulse 95 06/13/18 07:20 Resp 18 06/13/18 15:00 BP 154/74 06/13/18 15:00 Pulse Ox 96 06/13/18 15:00 Intake & Output 06/12/18 06/13/18 06/13/18 18:59 06:59 18:59 Intake Total 1225 1100 1300 Output Total 1000 355 951 Balance 225 745 349 Weight 95 kg 95 kg Intake: IV 625 1100 1000 Sodium Chloride 0.9% 1, 625 1100 1000 000 ml @ 125 mls/hr IV . Q8H [facility] Rx#:[id number] Intake, IV Titration 600 Amount Levofloxacin 750Mg-D5w 150 Pmx 750 mg In Dextrose/ Water 1 150ml.bag @ 100 mls/hr IVPB Q24H [facility] Rx#: [id number] Magnesium Sulfate-D5w Pmx 100 1 gm In Dextrose/Water 1 100ml.bag @ 100 mls/hr IVPB Q1H [facility] Rx#: [id number] Meropenem 1 gm In Sodium 100 Chloride 0.9% 100 ml @ 200 mls/hr IVPB Q8HR [facility] Rx#:[id number] Vancomycin 1,250 mg In 250 Sodium Chloride 0.9% 250 ml @ 125 mls/hr IVPB Q24H [facility] Rx#:[id number] Other 300 Output: Urine 1000 350 950 Stool 5 1 Other: Voiding Method Indwelling Catheter Indwelling Catheter Indwelling Catheter - Exam Patient is lying in the bed comfortably, no acute distress, awake alert and confused and agitated. Oriented 1. HEENT: Normocephalic. Neck is supple. Pupils reactive. Nostrils clear. Oral cavity is moist. Neck reveals no JVD, carotid bruits, or thyromegaly. CHEST EXAMINATION: Trachea is central. Symmetrical expansion. Bibasilar diminished air entry left greater than right. Scattered rhonchi CARDIAC: Normal S1, S2 with no gallops. No murmurs ABDOMEN: Soft. Bowel sounds normal. No organomegaly. No abdominal bruits. Extremities: 2+ edema and left lower extremities skin wound with serosanguineous drainage. Also has right thigh skin graft wound. No clubbing or cyanosis Neurologically awake, alert agitated. Able to move all his extremities. No focal deficits noted Skin: Left lower leg dressing clean dry and intact, Stage II buttocks Psychiatric: Minimally cooperative. Could not be assessed. Microbiology 06/11/18 16:25 Sputum Gram Stain - Final 06/11/18 16:25 Sputum Sputum Culture - Final Proteus mirabilis 06/11/18 04:48 Blood Blood Culture - Preliminary No Growth after 48 hours 06/10/18 08:20 Urine,Catheterized Urine Culture - Final - Labs CBC & Chem 7: 06/13/18 06:57 06/13/18 06:57 Labs: Abnormal Lab Results - Last 24 Hours (Table) 06/13/18 06/13/18 Range/Units 06:57 06:57 RBC 3.18 L (3.80-5.40) m/uL Hgb 9.2 L (11.4-16.0) gm/dL Hct 29.5 L (34.0-46.0) % Chloride 115 H (98-107) mmol/L Carbon Dioxide 14 L (22-30) mmol/L BUN 18 H (7-17) mg/dL Glucose 110 H (74-99) mg/dL Microbiology - Last 24 Hours (Table) 06/11/18 16:25 Gram Stain - Final Sputum Sputum Culture - Final Proteus mirabilis 06/11/18 04:48 Blood Culture - Preliminary Blood No Growth after 48 hours Assessment and Plan Assessment: Altered mental status likely due to toxic and metabolic encephalopathy and infection Acute Left lung pneumonia secondary to Proteus Mirabilis Acute hypoxic respiratory failure secondary to the above, improving Bilateral lower extremities cellulitis and skin ulcers Sepsis secondary to pneumonia and bilateral lower extremity cellulitis left greater than right Stage II sacral decubitus ulcers. Present on admission Lactic acidosis. Dehydration. Possible diabetic skin ulcers Diabetes type 2 [id number] History of DVT Fibromyalgia Hyperlipidemia Chronic blood loss anemia CK D stage III Obesity History of gastric ulcer with previous proximal [place]-en-Y gastric bypass Chronic lower back pain History of MRSA History of falls Obstructive sleep apnea Bilateral tinnitus Paroxysmal atrial fibrillation History of left eye contusion/left lower leg ulceration Diabetic peripheral neuropathy History of migraine headaches Eczema History of lower GI bleed Anxiety/depression Osteoarthritis with history of left knee total arthroplasty Previous history of smoking and marijuana use Plan: Continue on current medication regime ,monitoring and symptomatic treatment. Maintain gentle IV fluid hydration, IV antibiotics /Wound Care as per ID. discharge planning in progress. Prognosis guarded given multiple complex medical issues. The impression and plan of care has been dictated as directed. : I performed a history and examination of this patient, discussed the same with the dictator. I agree with the dictator's note ,documented as a scribe. Any additional findings or plans will be noted.
[2018-06-13] MEDS: IPRATROPIUM-ALBUTEROL 3 ML NEB INHALATION PRN (20:53)
[2018-06-13] MEDS ORDERED: VANCOMYCIN 1,500 MG in SODIUM CHLORIDE 0.9% 250 ML IVPB SCH (22:00)
[2018-06-13] MEDS: ATORVASTATIN 40 MG TAB PO SCH (22:32)
[2018-06-13] MEDS: CALCIUM CARB-VIT D 500MG-200UN 1 EACH TAB PO SCH (22:32)
[2018-06-13] MEDS: MULTIVITAMINS, THERA 1 EACH TAB PO SCH (22:33)
--- NOTE | 2018-06-13 22:58 | P.PN ---
Subjective Progress Note Date: 06/13/18 This is a 67-year-old female patient well-known to ID service as she has been treated in the past for multiple admissions for acute respiratory failure requiring intubation, pneumonia and sepsis as well as bacteremia with IV antibiotic treatment in the past. Patient presented from [facility] with mental status changes, lethargy. She was found to have fever of 102.3, tachycardia and tachypneic. Chest x-ray showed extensive consolidation of left lung and patient has had ongoing thick brown purulent sputum and cough. Influenza testing was negative for a and B, white count was 10.2, hemoglobin 8.1. The patient was initially admitted to the [facility] floor and then transferred to ICU due to mental status changes. Patient continues to have ongoing confusion. She has not required vasopressors, vital signs of been stable and she has been afebrile. She has been treated with a combination of meropenem, vancomycin and Levaquin. Her previous urine culture in January was Proteus and ESBL E. coli. She does have chronic wounds to the lower extremity and stage II ulcer to the buttocks. She has had 2 CAT scans of the brain which are essentially negative. She is not eating or drinking more than a couple bites. Her urine output has been adequate. No diarrhea as noted she has had a Coffey catheter placed since admission. 06/13/2018 the patient is slightly improved. Her eyes were open and she attempted a few sentences with the observer. Content of her speech is poor but at least a few of the words were intelligible. She seems comfortable but when questions relates she feels poorly. No further review was possible. Patient was no further cooperative Objective - Vital Signs Vital signs: Vital Signs Temp 98.9 F 06/13/18 15:00 Pulse 96 06/13/18 21:04 Resp 18 06/13/18 15:00 BP 154/74 06/13/18 15:00 Pulse Ox 96 06/13/18 15:00 Intake & Output 06/13/18 06/13/18 06/14/18 06:59 18:59 06:59 Intake Total 1100 1760 Output Total 355 951 Balance 745 809 Weight 95 kg Intake: IV 1100 1000 Sodium Chloride 0.9% 1, 1100 1000 000 ml @ 125 mls/hr IV . Q8H [facility] Rx#:[id number] Oral 460 Other 300 Output: Urine 350 950 Stool 5 1 Other: Voiding Method Indwelling Catheter Indwelling Catheter # Bowel Movements 1 - Exam Gen: This is a obese 67-year-old female. She is in the ICU bed and appears to be comfortable but is a yelling out for pain, etc. HEENT: Head is atraumatic, normocephalic. Pupils equal, round. Sclerae is anicteric. Oral mucous membranes are moist. Patient is coughing up thick brown sputum. NECK: Supple. No JVD. No lymphadenopathy. No thyromegaly. LUNGS: Decreased breath sounds bilaterally with scattered rhonchi. No intercostal retractions. No accessory muscle usage. HEART: Regular rate and rhythm. No murmur. ABDOMEN: Soft. Bowel sounds are present. No masses. No tenderness. Coffey catheter draining joaquina urine. EXTREMITIES: The left lower extremity is evidence of improved edema. The minimal ulceration is noted in the therahoney dressing is requested. The foam dressing to the sacral area requested also. NEUROLOGICAL: Patient is awake, and oriented only to person and that she does respond to her name. Does seem to be moving arms and legs spontaneously today. - Labs CBC & Chem 7: 06/13/18 06:57 06/13/18 06:57 Labs: Abnormal Lab Results - Last 24 Hours (Table) 06/13/18 06/13/18 Range/Units 06:57 06:57 RBC 3.18 L (3.80-5.40) m/uL Hgb 9.2 L (11.4-16.0) gm/dL Hct 29.5 L (34.0-46.0) % Chloride 115 H (98-107) mmol/L Carbon Dioxide 14 L (22-30) mmol/L BUN 18 H (7-17) mg/dL Glucose 110 H (74-99) mg/dL Microbiology - Last 24 Hours (Table) 06/11/18 16:25 Gram Stain - Final Sputum Sputum Culture - Final Proteus mirabilis 06/11/18 04:48 Blood Culture - Preliminary Blood No Growth after 48 hours Laboratory Results WBC 9.4 k/uL (3.8-10.6) 06/13/18 06:57 RBC 3.18 m/uL (3.80-5.40) L 06/13/18 06:57 Hgb 9.2 gm/dL (11.4-16.0) L 06/13/18 06:57 Hct 29.5 % (34.0-46.0) L 06/13/18 06:57 MCV 92.8 fL (80.0-100.0) 06/13/18 06:57 MCH 29.0 pg (25.0-35.0) 06/13/18 06:57 MCHC 31.3 g/dL (31.0-37.0) 06/13/18 06:57 RDW 15.1 % (11.5-15.5) 06/13/18 06:57 Plt Count 275 k/uL (150-450) 06/13/18 06:57 Neutrophils % 81 % 06/13/18 06:57 Lymphocytes % 14 % 06/13/18 06:57 Monocytes % 3 % 06/13/18 06:57 Eosinophils % 1 % 06/13/18 06:57 Basophils % 0 % 06/13/18 06:57 Neutrophils # 7.6 k/uL (1.3-7.7) 06/13/18 06:57 Lymphocytes # 1.3 k/uL (1.0-4.8) 06/13/18 06:57 Monocytes # 0.3 k/uL (0-1.0) 06/13/18 06:57 Eosinophils # 0.1 k/uL (0-0.7) 06/13/18 06:57 Basophils # 0.0 k/uL (0-0.2) 06/13/18 06:57 Hypochromasia Marked 06/13/18 06:57 PT 10.4 sec (9.0-12.0) 06/10/18 07:08 INR 1.1 (<1.2) 06/10/18 07:08 APTT 25.2 sec (22.0-30.0) 06/10/18 07:08 Sodium 143 mmol/L (137-145) 06/13/18 06:57 Potassium 3.7 mmol/L (3.5-5.1) 06/13/18 06:57 Chloride 115 mmol/L (98-107) H 06/13/18 06:57 Carbon Dioxide 14 mmol/L (22-30) L 06/13/18 06:57 Anion Gap 14 mmol/L 06/13/18 06:57 BUN 18 mg/dL (7-17) H 06/13/18 06:57 Creatinine 0.65 mg/dL (0.52-1.04) 06/13/18 06:57 Est GFR (CKD-EPI)AfAm >90 (>60 ml/min/1.73 sqM) 06/13/18 06:57 Est GFR (CKD-EPI)NonAf >90 (>60 ml/min/1.73 sqM) 06/13/18 06:57 Glucose 110 mg/dL (74-99) H 06/13/18 06:57 POC Glucose (mg/dL) 127 mg/dL (75-99) H 06/12/18 04:45 POC Glu Program Professional ID Michael Haynes 06/12/18 04:[address] Glu mg/dL 131 06/11/18 04:48 Hemoglobin A1c 6.2 % (4.0-6.0) H 06/11/18 04:48 Lactic Ac Sepsis Rflx Y 06/10/18 07:39 Plasma Lactic Acid Maximus 0.8 mmol/L (0.7-2.0) 06/10/18 12:10 Calcium 9.1 mg/dL (8.4-10.2) 06/13/18 06:57 Phosphorus 3.6 mg/dL (2.5-4.5) 06/13/18 06:57 Magnesium 1.9 mg/dL (1.6-2.3) 06/13/18 06:57 Total Bilirubin 0.3 mg/dL (0.2-1.3) 06/10/18 07:08 AST 23 U/L (14-36) 06/10/18 07:08 ALT 18 U/L (9-52) 06/10/18 07:08 Alkaline Phosphatase 135 U/L (38-126) H 06/10/18 07:08 Ammonia <9 umol/L (<30) 06/10/18 17:26 Total Creatine Kinase 37 U/L (30-135) 06/10/18 07:08 CK-MB (CK-2) 1.4 ng/mL (0.0-2.4) 06/10/18 07:08 CK-MB (CK-2) Rel Index 3.8 06/10/18 07:08 Troponin I <0.012 ng/mL (0.000-0.034) 06/10/18 07:08 Total Protein 7.4 g/dL (6.3-8.2) 06/10/18 07:08 Albumin 3.2 g/dL (3.5-5.0) L 06/10/18 07:08 Triglycerides 77 mg/dL (<150) 06/11/18 04:48 Cholesterol 106 mg/dL (<200) 06/11/18 04:48 LDL Cholesterol, Calc 56 mg/dL (0-99) 06/11/18 04:48 HDL Cholesterol 35 mg/dL (40-60) L 06/11/18 04:48 Urine Color Yellow 06/10/18 08:20 Urine Appearance Clear (Clear) 06/10/18 08:20 Urine pH 6.0 (5.0-8.0) 06/10/18 08:20 Ur Specific [place] 1.009 (1.001-1.035) 06/10/18 08:20 Urine Protein Negative (Negative) 06/10/18 08:20 Urine Glucose (UA) Negative (Negative) 06/10/18 08:20 Urine Ketones Negative (Negative) 06/10/18 08:20 Urine Blood Negative (Negative) 06/10/18 08:20 Urine Nitrite Negative (Negative) 06/10/18 08:20 Urine Bilirubin Negative (Negative) 06/10/18 08:20 Urine Urobilinogen <2.0 mg/dL (<2.0) 06/10/18 08:20 Ur Leukocyte Esterase Small (Negative) H 06/10/18 08:20 Urine RBC 1 /hpf (0-5) 06/10/18 08:20 Urine WBC 11 /hpf (0-5) H 06/10/18 08:20 Ur Squamous Epith Cells <1 /hpf (0-4) 06/10/18 08:20 Urine Bacteria Rare /hpf (None) H 06/10/18 08:20 Vancomycin Trough 12.2 ug/mL 06/13/18 06:57 Influenza Type A RNA Not Detected (Not Detectd) 06/10/18 08:25 Influenza Type B (PCR) Not Detected (Not Detectd) 06/10/18 08:25 Microbiology 06/11/18 16:25 Sputum Gram Stain - Final 06/11/18 16:25 Sputum Sputum Culture - Final Proteus mirabilis 06/11/18 04:48 Blood Blood Culture - Preliminary No Growth after 48 hours Assessment and Plan (1) Altered mental status Current Visit: Yes Status: Acute Code(s): R41.82 - ALTERED MENTAL STATUS, UNSPECIFIED SNOMED Code(s): 927496069 (2) Fever Current Visit: Yes Status: Acute Code(s): R50.9 - FEVER, UNSPECIFIED SNOMED Code(s): 555525991 (3) Sepsis Narrative/Plan: Patient is with altered mental status, moaning and seems to be worsening in the last time she was seen. Patient does have evidence of the ulceration to the left leg which is actually much improved since her last evaluation. She has evidence of a pressure ulceration of the coccyx area present on admission that appears to be stage III with some scant drainage but no significant surrounding infection at this time. Therahoney will be applied to the left lateral leg. The sacral Optifoam dressing is applied to that area. Continue to offload her with side to side turning. Appears to have evidence of the left lower lobe pneumonia and consequently for antibiotic therapy with her history of ESBL infection utilize meropenem and also Levaquin at this time until there is further data. Cultures are in process which will further help de-escalate antibiotic therapy as possible. 06/13/2018 patient has had a slight improvement. Sputum culture reveals Proteus mirabilis resistant to Levaquin. Constantly this will be discontinued and we'll continue meropenem for now given her ALLERGIES in awaiting final culture results. If she improves and is ready for transfer to the extended care facility would plan on completing a total of 10 days of antibiotic therapy for her gram-negative pneumonia and sepsis. Meropenem or ertapenem can be utilized depending on cost effectiveness at the extended care facility. Continue local wound care with IV dressing to the leg and foam dressing to the sacrum. Current Visit: No Status: Acute Code(s): A41.9 - SEPSIS, UNSPECIFIED ORGANISM SNOMED Code(s): 22594335
[2018-06-14] MEDS: MEROPENEM 1 GM in SODIUM CHLORIDE 0.9% 100 ML IVPB SCH ×2 (00:56→11:25)
[2018-06-14 01:15] VITALS: RESP 16
[2018-06-14] MEDS: SODIUM CHLORIDE 0.9% 1,000 ML IV SCH (05:30)
[2018-06-14 08:42] LABS: Basophils % (A) 0 %; Eosinophils # (A) 0.1 k/uL (0-0.7); Eosinophils % (A) 2 %; HCT 24.6 % (34.0-46.0); HGB 7.9 gm/dL (11.4-16.0); Hypochromasia Slight; Lymphocytes # (A) 1.1 k/uL (1.0-4.8); Lymphocytes % (A) 19 %; MCHC 32.3 g/dL (31.0-37.0); MCV 89.8 fL (80.0-100.0); Monocytes # (A) 0.3 k/uL (0-1.0); Monocytes % (A) 5 %; Neutrophils # (A) 4.3 k/uL (1.3-7.7); Neutrophils % (A) 71 %; Platelet Count 251 k/uL (150-450); RBC 2.74 m/uL (3.80-5.40); RDW 15.6 % (11.5-15.5)
[2018-06-14 08:54] LABS: Anion Gap 9 mmol/L; Blood Urea Nitrogen 17 mg/dL (7-17); Calcium 8.5 mg/dL (8.4-10.2); Carbon Dioxide 18 mmol/L (22-30); Chloride 116 mmol/L (98-107); Glucose 137 mg/dL (74-99); Magnesium 1.7 mg/dL (1.6-2.3); Phosphorus 3.3 mg/dL (2.5-4.5); Potassium 3.1 mmol/L (3.5-5.1); Sodium 143 mmol/L (137-145)
[2018-06-14] MEDS ORDERED: LEVOFLOXACIN 750 MG TAB PO SCH (09:00)
[2018-06-14] MEDS: SENNOSIDES 8.6 MG TAB PO SCH (09:19)
[2018-06-14] MEDS: DOCUSATE 100 MG CAP PO SCH (09:19)
[2018-06-14] MEDS: ENOXAPARIN 40 MG/0.4 ML SYRINGE SQ SCH (09:23)
[2018-06-14] MEDS: PANTOPRAZOLE 40 MG/10 ML VIAL IV SCH (09:23)
[2018-06-14] MEDS: MAGNESIUM OXIDE 400 MG TAB PO SCH (09:23)
[2018-06-14] MEDS: OXYBUTYNIN 10 MG TAB.ER.24 PO SCH (09:23)
[2018-06-14] MEDS: IPRATROPIUM-ALBUTEROL 3 ML NEB INHALATION PRN (09:29)
--- NOTE | 2018-06-14 09:42 | XR ---
EXAMINATION TYPE: XR chest 1V portable DATE OF EXAM: 06/14/2018 COMPARISON: Prior chest x-ray 06/12/2018 HISTORY: pneumonia TECHNIQUE: Single frontal view of the chest is obtained. FINDINGS: Airspace disease again noted in the left upper lobe. Difficult to exclude retrocardiac den sity, patient is rotated. Central vascularity and interstitium are increased. No evident pneumothorax or pleural effusion. Heart may be enlarged. The aorta is dense. IMPRESSION: Correlate for volume overload, congestive heart failure, pneumonia. Follow-up is recomme nded.
--- NOTE | 2018-06-14 10:57 | P.PN ---
Subjective Progress Note Date: 06/14/18 Principal diagnosis: Acute left lung pneumonia, retirement acquired secondary to Proteus mirabilis. 67-year-old patient, sent over to the hospital because of altered mentation. The patient is unable to give any information. She is lethargic and she cannot provide any history. She is a retirement resident. The patient has no significant leukocytosis. Blood work and electrodes are all within normal limits. UA has also been within normal limits. She was however febrile and she came in with a temperature of 102. Her most recent temperatures 100.4. Slightly tachycardic. Hemodynamically stable and the patient is not requiring any pressors. The patient is on 3 L of oxygen by nasal cannula. Repeat chest x -ray from today shows extensive consolidation of the left lung and the patient is producing copious amount of thick purulent respiratory secretions and she has a harsh cough. For now, the patient is currently on a combination of IV Merrem, vancomycin and Levaquin. The choice was made based on her previous history of ESBL infections in the urine/ESBL exposure. This will give also the patient gram-negative and MRSA coverage. The patient also has chronic wounds in lower extremity and stage II ulcer in her buttocks. CAT scan of the brain was essentially negative. There is no neck stiffness. No seizure activity. No drug overdose. No clear-cut history of aspiration. She is able to swallow properly for now. Patient was reevaluated today on 06/12/2018, patient remains confused, altered mental status, but not in any form of respiratory distress. Patient remains on good antibiotics coverage for presumptive gram-negative pneumonia, possible ESBL patient had intermittent episodes of confusion and agitation earlier today , but presently seems to be calm and in no distress. All labs, chest x-ray, medications were reviewed. The patient is seen again today 06/13/2018 in follow-up on the surgical floor. She is currently sitting up in bed. She is awake and alert in no acute distress. She is still somewhat agitated and confused but more cooperative. She is maintaining O2 saturations in the 90s on room air. She's been afebrile. Hemodynamically stable. Sputum was positive for Proteus mirabilis. White count 9.4. Hemoglobin 9.2. Bicarb 14. Creatinine 0.65. She is currently on vancomycin, meropenem, Levaquin. The patient is seen again today 06/14/2018 in follow-up on the surgical floor. She remains awake and alert. She did state there was a gentleman in her room covered and purple earlier this morning but that he is not there now. She needs reorientation often. She denies any shortness of breath. She does have a loose nonproductive cough. She is maintaining O2 saturations in the mid 90s on room air. She's afebrile. Her chest x-ray does show increased pulmonary vascular congestion. She is currently in a +1700 ML balance. She remains on vancomycin and Merrem. Proteus mirabilis was resistant to Levaquin. White count 6.0. Hemoglobin 7.9. Potassium 3.1. Bicarb 18. Creatinine 0.63. Objective - Vital Signs Vital signs: Vital Signs Temp 98.4 F 06/14/18 07:00 Pulse 96 06/14/18 09:39 Resp 16 06/14/18 07:00 BP 173/86 06/14/18 07:00 Pulse Ox 95 06/14/18 07:00 Intake & Output 06/13/18 06/14/18 06/14/18 18:59 06:59 18:59 Intake Total 1760 Output Total 951 Balance 809 Intake: IV 1000 Sodium Chloride 0.9% 1, 1000 000 ml @ 125 mls/hr IV . Q8H [facility] Rx#:[id number] Oral 460 Other 300 Output: Urine 950 Stool 1 Other: Voiding Method Indwelling Catheter Indwelling Catheter # Bowel Movements 1 - Exam Physical Exam: Revealed a 67-year-old female, in bed, comfortable, intermittent episodes of yelling out, confused, in no distress. Head: Atraumatic, normocephalic. HEENT:Neck is supple. No neck masses. No thyromegaly. No JVD. PERRLA, EOMI, no icterus. Chest: Diminished breath sound bilaterally, scattered rhonchi, no wheezes. Crackles in the posterior bases Symmetrical chest expansion, no chest wall tenderness, no accessory muscles use. Cardiac Exam: Normal S1 and S2, no S3 gallop, no murmur.] Abdomen: [Soft, nontender, no megaly, no rebound, no guarding, normal bowel sounds.] Extremities: [No clubbing, no edema, no cyanosis.] Neurological Exam: Arousable, oriented 0, follows very simple instructions only. Psychiatric: Poor mental status examination. Blunt affect. Skin: Dressing noted on both lower extremities, according to the nurse had superficial ulcerations and cellulitis especially in the left lower extremity. - Labs CBC & Chem 7: 06/14/18 07:37 06/14/18 07:37 Labs: Abnormal Lab Results - Last 24 Hours (Table) 06/14/18 06/14/18 Range/Units 07:37 07:37 RBC 2.74 L (3.80-5.40) m/uL Hgb 7.9 L (11.4-16.0) gm/dL Hct 24.6 L (34.0-46.0) % RDW 15.6 H (11.5-15.5) % Potassium 3.1 L (3.5-5.1) mmol/L Chloride 116 H (98-107) mmol/L Carbon Dioxide 18 L (22-30) mmol/L Glucose 137 H (74-99) mg/dL Microbiology - Last 24 Hours (Table) 06/11/18 04:48 Blood Culture - Preliminary Blood No Growth after 72 hours 06/11/18 16:25 Gram Stain - Final Sputum Sputum Culture - Final Proteus mirabilis Assessment and Plan Assessment: Impression: 1 acute left lung pneumonia secondary to Proteus mirabilis. Today's chest x- ray shows evidence of fluid volume overload as well. 2 acute hypoxic respiratory failure secondary to above. Recovered. 3 paroxysmal atrial fibrillation, presently in sinus rhythm. 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 7 multiple comorbidities including metabolic encephalopathy, chronic lower extremities ulcerations and cellulitis, previous deep vein thromboses and pulmonary embolism, had previous IVC filter placement, fibromyalgia, previous GI bleeding and gastric ulcer disease, hyperlipidemia, chronic anemia, history of ESBL urinary tract infection and previous MRSA urinary tract infection. Plan: The patient was seen and evaluated by Dr. Gardner. Chest x-ray and labs reviewed. We will give Lasix 40 mg IVP 1. Replace electrolytes. We'll continue with current antibiotics per ID including vancomycin, and meropenem. Continue the current treatment plan. We will increase her activity as tolerated. We'll continue to follow. I, the cosigning physician, performed a history & physical examination of the patient. Lungs sounds with few scattered rhonchi, crackles in the posterior bases. Maintaining good O2 saturations in the 90s on room air. I discussed the assessment and plan of care with my nurse practitioner, Muriel Edmonds. I attest to the above note as dictated by her.
[2018-06-14] MEDS ORDERED: FUROSEMIDE 10 MG/ML 4 ML VIAL IV STA (10:58)
[2018-06-14 15:21] VITALS: BP 158/68; PULSE 109; TEMP 99.1
--- NOTE | 2018-06-14 15:29 | P.DS ---
Providers Date of admission: 06/10/18 07:05 Expected date of discharge: 06/14/18 Attending physician: Haritha Lara Consults: 06/11/18 00:54 Consult Physician Stat Consulting Provider: Thad Antunez Consult Reason/Comments: neuro status changes Do you want consulting provider notified?: Already Contacted 06/11/18 02:25 Consult Physician Routine Consulting Provider: Clayton Bhatia Consult Reason/Comments: Fever on admission, mental status changes Do you want consulting provider notified?: Yes, Notify in am Consult Physician Stat Consulting Provider: Kirby Wolff Consult Reason/Comments: ICU management Do you want consulting provider notified?: Already Contacted [facility] Course: Final Diagnoses: Altered mental status likely due to toxic and metabolic encephalopathy and infection Acute Left lung pneumonia secondary to Proteus Mirabilis Acute hypoxic respiratory failure secondary to the above, improving Bilateral lower extremities cellulitis and skin ulcers Sepsis secondary to pneumonia and bilateral lower extremity cellulitis left greater than right Stage II sacral decubitus ulcers. Present on admission Lactic acidosis. Dehydration. Possible diabetic skin ulcers Diabetes type 2 [id number] History of DVT Fibromyalgia Hyperlipidemia Chronic blood loss anemia CK D stage III Obesity History of gastric ulcer with previous proximal Clinton-en-Y gastric bypass Chronic lower back pain History of MRSA History of falls Obstructive sleep apnea Bilateral tinnitus Paroxysmal atrial fibrillation History of left eye contusion/left lower leg ulceration Diabetic peripheral neuropathy History of migraine headaches Eczema History of lower GI bleed Anxiety/depression Osteoarthritis with history of left knee total arthroplasty Previous history of smoking and marijuana use Hospital course:Interval history:Patient is a 67-year-old female with a known history of diabetes type 2 [id number], fibromyalgia, chronic pain, hyperlipidemia and multiple other medical problems including bilateral lower extremity ulcers with skin flaps and decubitus ulcers was sent from custodial due to altered mental status. Patient was febrile and tachycardic and tachypneic on admission. CT head showed cerebral atrophy. No intracranial process. Chest x-ray showed pulmonary fibrosis. EKG showed sinus tachycardia. Patient is currently lying in the bed comfortably and lethargic, altered mental status. Otherwise cannot provide any history. Lactic acid 2.1. No leukocytosis. Patient is currently on morphine, Dilaudid and Lyrica at custodial Evaluated by pulmonary/sand control worker/infectious disease.Patient was transferred to ICU due to altered mental status. Repeat CT head negative. Evaluated by neurology. EEG completed, mild encephalopathy, without epileptiform discharges.Maintained on IV antibiotics, nebulized bronchodilators. Significant clinical improvement. Cleared by all consults for discharge. Patient is being discharged to [facility] in a stable condition with guarded prognosis. - Exam Patient is lying in the bed comfortably, no acute distress, awake alert and confused,Oriented 1. CHEST EXAMINATION: Trachea is central. Symmetrical expansion. Bibasilar diminished air entry left greater than right. Scattered rhonchi CARDIAC: Normal S1, S2 with no gallops. No murmurs ABDOMEN: Soft. Bowel sounds normal. No organomegaly. No abdominal bruits. Neurologically awake, alert agitated. Able to move all his extremities. No focal deficits note Microbiology 06/11/18 04:48 Blood Blood Culture - Preliminary No Growth after 72 hours 06/11/18 16:25 Sputum Gram Stain - Final 06/11/18 16:25 Sputum Sputum Culture - Final Proteus mirabilis 06/10/18 08:20 Urine,Catheterized Urine Culture - Final The impression and plan of care has been dictated as directed. : I performed a history and examination of this patient, discussed the same with the dictator. I agree with the dictator's note ,documented as a scribe. Any additional findings or plans will be noted. Time taken: 35 minutes Patient Condition at Discharge: Stable Plan - Discharge Summary New Discharge Prescriptions: New Ertapenem [INVanz] 1 gm IVPB Q24H #6 bag Ipratropium-Albuterol Nebulize [Duoneb 0.5 mg-3 mg/3 ml Soln] 3 ml INHALATION RT-QID #1 ampul.neb INSULIN LISPRO (HumaLOG) [humaLOG] 0 unit SQ ACHS #1 vial Furosemide [Lasix] 40 mg PO DAILY #1 tablet Continue Atorvastatin [Lipitor] 40 mg PO HS Sennosides [Senokot] 17.2 mg PO BID Acetaminophen Tab [Tylenol] 650 mg PO Q6H PRN PRN Reason: Fever And/ Or Pain Bisacodyl [Dulcolax] 10 mg RECTAL DAILY PRN PRN Reason: Constipation rOPINIRole HCL [Requip] 0.5 mg PO HS Oxybutynin Chloride [Oxybutynin Chloride ER] 10 mg PO DAILY Multivitamins, Thera [Multivitamin (formulary)] 1 tab PO HS Calcium Carbonate/Vitamin D3 [Calcium 500-Vit D3 200 Tablet] 1 tab PO HS Biotin 300 mcg PO HS Magnesium Oxide [Mag-Ox] 400 mg PO BID metFORMIN HCL [Glucophage] 500 mg PO BID Omeprazole 20 mg PO DAILY Docusate [Colace] 100 mg PO BID cap Potassium Chloride ER [K-Dur 20] 20 meq PO HS tab.er.prt Nystatin/Triamcin [Nystatin-Triamcinolone Cream] 1 applicate TOPICAL BID Loratadine [Claritin] 10 mg PO DAILY Discontinued Polyethylene Glycol 3350 [Miralax] 17 gm PO DAILY Pregabalin [Lyrica] 75 mg PO TID Baclofen [Lioresal] 10 mg PO Q6H Morphine Sulfate ER [Ms Contin] 15 mg PO Q12HR PRN PRN Reason: Pain Doxycycline Monohydrate [Monodox] 100 mg PO BID HYDROmorphone [Dilaudid] 4 mg PO Q12H PRN PRN Reason: Pain Discharge Medication List Atorvastatin [Lipitor] 40 mg PO HS 08/30/15 [History] Sennosides [Senokot] 17.2 mg PO BID 05/22/17 [History] Acetaminophen Tab [Tylenol] 650 mg PO Q6H PRN 07/29/17 [History] Bisacodyl [Dulcolax] 10 mg RECTAL DAILY PRN 11/25/17 [History] Biotin 300 mcg PO HS 01/05/18 [History] Calcium Carbonate/Vitamin D3 [Calcium 500-Vit D3 200 Tablet] 1 tab PO HS [History] Multivitamins, Thera [Multivitamin (formulary)] 1 tab PO HS 01/05/18 [History] Oxybutynin Chloride [Oxybutynin Chloride ER] 10 mg PO DAILY 01/05/18 [History] rOPINIRole HCL [Requip] 0.5 mg PO HS 01/05/18 [History] Magnesium Oxide [Mag-Ox] 400 mg PO BID 02/13/18 [History] Omeprazole 20 mg PO DAILY 02/13/18 [History] metFORMIN HCL [Glucophage] 500 mg PO BID 02/13/18 [History] Docusate [Colace] 100 mg PO BID cap 02/17/18 [Rx] Potassium Chloride ER [K-Dur 20] 20 meq PO HS tab.er.prt 02/17/18 [Rx] Loratadine [Claritin] 10 mg PO DAILY 06/10/18 [History] Nystatin/Triamcin [Nystatin-Triamcinolone Cream] 1 applicate TOPICAL BID [History] Ertapenem [INVanz] 1 gm IVPB Q24H #6 bag 06/14/18 [Rx] Furosemide [Lasix] 40 mg PO DAILY #1 tablet 06/14/18 [Rx] INSULIN LISPRO (HumaLOG) [humaLOG] 0 unit SQ ACHS #1 vial 06/14/18 [Rx] Ipratropium-Albuterol Nebulize [Duoneb 0.5 mg-3 mg/3 ml Soln] 3 ml INHALATION RT -QID #1 ampul.neb 06/14/18 [Rx] Follow up Appointment(s)/Referral(s): Carlo Frederick MD [Primary Care Provider] - 1-2 days Clayton Bhatia MD [STAFF PHYSICIAN] - As Needed (via phone) [facility], [NON-STAFF] - 1 Week Ambulatory/Diagnostic Orders: Basic Metabolic Panel [LAB.AMB] Location: None Selected Complete Blood Count w/diff [LAB.AMB] Location: None Selected Activity/Diet/Wound Care/Special Instructions: [facility] Re-eval Lasix & POtassium CBC,BMP in 2 days
[2018-06-14] MEDS: POTASSIUM CHLORIDE ER 20 MEQ TAB.ER PO SCH ×2 (15:35→16:39)
[2018-06-15] MEDS ORDERED: VANCOMYCIN TROUGH DUE 1 EACH MISC MISCELLANE ONE (05:00)
== END 2018-06-14 16:45 | DRG 871 ==
LOC: EC 06:02 → 3NMEDONC 07:05 → 4SSUR 13:47 → 2SICU 06-11 01:56 → 4SSUR 06-13 05:41
PROVIDERS: ADMIT Hospitalist; ATTEND Hospitalist
DX: A41.9 Sepsis, unspecified organism (principal); G92 Toxic encephalopathy; J18.9 Pneumonia, unspecified organism; J96.01 Acute respiratory failure with hypoxia; R40.2122 Coma scale, eyes open, to pain, at arrival to emergency department; R40.2342 Coma scale, best motor response, flexion withdrawal, at arrival to emergency department; R40.2222 Coma scale, best verbal response, incomprehensible words, at arrival to emergency department; E87.2 Acidosis; L02.416 Cutaneous abscess of left lower limb; L03.115 Cellulitis of right lower limb; L03.116 Cellulitis of left lower limb; L97.929 Non-pressure chronic ulcer of unspecified part of left lower leg with unspecified severity; L97.919 Non-pressure chronic ulcer of unspecified part of right lower leg with unspecified severity; D50.0 Iron deficiency anemia secondary to blood loss (chronic); E11.42 Type 2 diabetes mellitus with diabetic polyneuropathy; E11.622 Type 2 diabetes mellitus with other skin ulcer; E78.5 Hyperlipidemia, unspecified; E86.0 Dehydration; E87.70 Fluid overload, unspecified; F32.9 Major depressive disorder, single episode, unspecified; F41.9 Anxiety disorder, unspecified; G43.909 Migraine, unspecified, not intractable, without status migrainosus; G47.33 Obstructive sleep apnea (adult) (pediatric); H93.13 Tinnitus, bilateral; I48.0 Paroxysmal atrial fibrillation; J84.10 Pulmonary fibrosis, unspecified; Z87.11 Personal history of peptic ulcer disease; K59.00 Constipation, unspecified; L30.9 Dermatitis, unspecified; L89.152 Pressure ulcer of sacral region, stage 2; M19.90 Unspecified osteoarthritis, unspecified site; M79.7 Fibromyalgia; Z16.23 Resistance to quinolones and fluoroquinolones; Z68.33 Body mass index [BMI] 33.0-33.9, adult; E66.9 Obesity, unspecified; Z82.49 Family history of ischemic heart disease and other diseases of the circulatory system; Z83.3 Family history of diabetes mellitus; Z86.14 Personal history of Methicillin resistant Staphylococcus aureus infection; Z86.711 Personal history of pulmonary embolism; Z86.19 Personal history of other infectious and parasitic diseases; Z86.718 Personal history of other venous thrombosis and embolism; Z87.440 Personal history of urinary (tract) infections; Z87.891 Personal history of nicotine dependence; Z91.81 History of falling; Z96.641 Presence of right artificial hip joint; Z96.652 Presence of left artificial knee joint; Z98.84 Bariatric surgery status; E11.22 Type 2 diabetes mellitus with diabetic chronic kidney disease; I12.9 Hypertensive chronic kidney disease with stage 1 through stage 4 chronic kidney disease, or unspecified chronic kidney disease; N18.3 Chronic kidney disease, stage 3 (moderate); E66.01 Morbid (severe) obesity due to excess calories; Z68.38 Body mass index [BMI] 38.0-38.9, adult; Z88.0 Allergy status to penicillin; Z88.7 Allergy status to serum and vaccine; Z88.1 Allergy status to other antibiotic agents; Z91.040 Latex allergy status
CPT/HCPCS: 36415; 36569; 70450; 71045; 71046; 76937; 80048; 80053; 80061; 80202; 81001; 82140; 82550; 82553; 83036; 83605; 83735; 84100; 84484; 85025; 85610; 85730; 87040; 87070; 87077; 87086; 87186; 87205; 87502; 93005; 94640; 95816; 96365; 96366; 96367; 96368; 96372; 96375; 99291

== ENCOUNTER 2018-06-17 09:55 | Emergency (ER) | payer MEDICARE, OTHER ==
[2018-06-17] MEDS ORDERED: IPRATROPIUM-ALBUTEROL 3 ML NEB INHALATION STA (10:13)
[2018-06-17] MEDS ORDERED: LORazepam 2 MG/ML INJ IV STA (10:13)
--- NOTE | 2018-06-17 10:35 | ED ---
SOB HPI - General Chief Complaint: Shortness of Breath Stated Complaint: BRENTON Time Seen by Provider: 06/17/18 09:58 Source: patient, RN notes reviewed, old records reviewed Mode of arrival: EMS Limitations: no limitations - History of Present Illness Initial Comments: This is a 59-year-old female the ER for evaluation shortness of breath. Patient was feeling very short of breath while at a care facility earlier today. Patient is recent hospital admission for pneumonia, patient is arriving by EMS in no acute distress. Patient is a poor historian MD Complaint: shortness of breath, "asthma attack", anxiety (EMS and they did experience patient having anxiety attack, her oxygen was never low) -: minutes(s), hour(s) Radiation: other (Patient has no pain) Consistency: now resolved (Shortness of breath is resolved) Improves With: medication Worsens With: nothing Known History Of: recurrent pneumonia Context: recent URI Associated Symptoms: denies other symptoms - Related Data Home Medications Medication Instructions Recorded Confirmed Atorvastatin [Lipitor] 40 mg PO HS 08/30/15 06/10/18 Sennosides [Senokot] 17.2 mg PO BID 05/22/17 06/10/18 Acetaminophen Tab [Tylenol] 650 mg PO Q6H PRN 07/29/17 06/10/18 Bisacodyl [Dulcolax] 10 mg RECTAL DAILY PRN 11/25/17 06/10/18 Biotin 300 mcg PO HS 01/05/18 06/10/18 Calcium Carbonate/Vitamin D3 1 tab PO HS 01/05/18 06/10/18 [Calcium 500-Vit D3 200 Tablet] Multivitamins, Thera [Multivitamin 1 tab PO HS 01/05/18 06/10/18 (formulary)] Oxybutynin Chloride [Oxybutynin 10 mg PO DAILY 01/05/18 06/10/18 Chloride ER] rOPINIRole HCL [Requip] 0.5 mg PO HS 01/05/18 06/10/18 Magnesium Oxide [Mag-Ox] 400 mg PO BID 02/13/18 06/10/18 Omeprazole 20 mg PO DAILY 02/13/18 06/10/18 metFORMIN HCL [Glucophage] 500 mg PO BID 02/13/18 06/10/18 Loratadine [Claritin] 10 mg PO DAILY 06/10/18 06/10/18 Nystatin/Triamcin 1 applicate TOPICAL BID 06/10/18 06/10/18 [Nystatin-Triamcinolone Cream] Previous Rx's Medication Instructions Recorded Docusate [Colace] 100 mg PO BID cap 02/17/18 Potassium Chloride ER [K-Dur 20] 20 meq PO HS tab.er.prt 02/17/18 Ertapenem [INVanz] 1 gm IVPB Q24H #6 bag 06/14/18 Furosemide [Lasix] 40 mg PO DAILY #1 tablet 06/14/18 INSULIN LISPRO (HumaLOG) [humaLOG] 0 unit SQ ACHS #1 vial 06/14/18 Ipratropium-Albuterol Nebulize 3 ml INHALATION RT-QID #1 ampul.neb 06/14/18 [Duoneb 0.5 mg-3 mg/3 ml Soln] Allergies Allergy/AdvReac Type Severity Reaction Status Date / Time adhesive tape Allergy Severe Rash/Hives Verified 06/17/18 10:05 cephalexin monohydrate Allergy Severe Rash/Hives Verified 06/17/18 10:05 [From Keflex] influenza virus vaccine, Allergy Severe Anaphylaxis Verified 06/17/18 10:05 specific [influenza virus vacc,specific] latex Allergy Severe Rash/Hives Verified 06/17/18 10:05 peanut Allergy Severe Anaphylaxis Verified 06/17/18 10:05 Penicillins Allergy Severe Swelling Verified 06/17/18 10:05 tetanus toxoid, adsorbed Allergy Intermediate Rash/Hives Verified 06/17/18 10:05 Influenza Virus Vaccines Allergy Anaphylaxis Verified 06/17/18 10:05 Review of Systems ROS Statement: Those systems with pertinent positive or pertinent negative responses have been documented in the HPI. ROS Other: All systems not noted in ROS Statement are negative. Past Medical History Past Medical History: Atrial Fibrillation, Diabetes Mellitus, Deep Vein Thrombosis (DVT), Fibromyalgia, GI Bleed, Hyperlipidemia, Hypertension, Pneumonia, Renal Disease, Skin Disorder Additional Past Medical History / Comment(s): Chronic blood loss anemia, hypertension, hyperlipidemia, fibromyalgia, chronic stage III renal failure, morbid obesity, DVT left lower leg with a previous IVC filter in place, dermatitis, gastric ulcer with a previous Clinton-en-Y gastric bypass surgery, chronic lower back pain, morbid obesity, previous history of severe sepsis w/ septic shock including septicemia with MRSA, SVT, DM type 2, hemorrhoids, cellulitis of left lower extremity, dysphagia, falls, muscle weakness, pneumonia , sleep apnea, bilateral tinnitus, atrial fibrillation, UTI. Left eye contusion/ left lower leg laceration - surgically repaired, Right heel pressure ulcer - healed, peripheral neuropathy (bilateral hands and feet), migraines, eczema, sinus problems, lower GI bleed. 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 Past Anesthesia/Blood Transfusion Reactions: Blood Transfusion Reaction Additional Past Anesthesia/Blood Transfusion Reaction / Comment(s): Per chart unspecified reaction. Past Psychological History: Anxiety, Depression Smoking Status: Former smoker Past Alcohol Use History: None Reported Past Drug Use History: Marijuana - Past Family History Father Family Medical History: Myocardial Infarction (NM) Additional Family Medical History / Comment(s): AT AGE 46-NM Mother Family Medical History: Diabetes Mellitus Additional Family Medical History / Comment(s): AT AGE 66 FROM COMPLICATIONS FROM DM Sister(s) Family Medical History: Diabetes Mellitus Brother(s) Family Medical History: Diabetes Mellitus Daughter(s) Family Medical History: Cancer Son(s) Family Medical History: No Reported History General Exam Limitations: no limitations General appearance: alert, in no apparent distress Head exam: Present: atraumatic, normocephalic, normal inspection Eye exam: Present: normal appearance, PERRL, EOMI. Absent: scleral icterus, conjunctival injection, periorbital swelling ENT exam: Present: normal exam, mucous membranes moist Neck exam: Present: normal inspection. Absent: tenderness, meningismus, lymphadenopathy Respiratory exam: Present: normal lung sounds bilaterally. Absent: respiratory distress, wheezes, rales, rhonchi, stridor Cardiovascular Exam: Present: regular rate, normal rhythm, normal heart sounds. Absent: systolic murmur, diastolic murmur, rubs, gallop, clicks GI/Abdominal exam: Present: soft, normal bowel sounds. Absent: distended, tenderness, guarding, rebound, rigid Extremities exam: Present: normal inspection, full ROM, normal capillary refill. Absent: tenderness, pedal edema, joint swelling, calf tenderness Back exam: Present: normal inspection Neurological exam: Present: alert, oriented X3, CN II-XII intact Psychiatric exam: Present: normal affect, normal mood Skin exam: Present: warm, dry, intact, normal color. Absent: rash Course Vital Signs 06/17/18 06/17/18 06/17/18 09:58 10:10 10:30 Temperature 98.6 F Pulse Rate 108 H 96 93 Respiratory 24 24 Rate Blood Pressure 159/76 161/80 O2 Sat by Pulse 100 100 100 Oximetry 06/17/18 06/17/18 06/17/18 10:38 10:46 11:00 Temperature Pulse Rate 98 85 Respiratory Rate Blood Pressure 154/72 O2 Sat by Pulse Oximetry 06/17/18 11:30 Temperature Pulse Rate 83 Respiratory 18 Rate Blood Pressure 154/72 O2 Sat by Pulse 94 L Oximetry - Reevaluation(s) Reevaluation #1: 06/17/18 11:59 Medical record and prior hospitalizations are reviewed, there is no change in any findings Medical Decision Making - Medical Decision Making 59 female the ER for evaluation, patient presents today for evaluation regards to shortness of breath, anxiety attack. X-ray labwork are unchanged. Patient is in no distress with normal oxygen. Patient can be discharged home - Lab Data Result diagrams: 06/17/18 11:21 06/17/18 11:21 Lab Results 06/17/18 06/17/18 06/17/18 Range/Units 11:21 11:21 11:21 WBC 4.1 (3.8-10.6) k/uL RBC 2.72 L (3.80-5.40) m/uL Hgb 7.8 L (11.4-16.0) gm/dL Hct 25.0 L (34.0-46.0) % MCV 91.7 (80.0-100.0) fL MCH 28.8 (25.0-35.0) pg MCHC 31.4 (31.0-37.0) g/dL RDW 16.0 H (11.5-15.5) % Plt Count 241 (150-450) k/uL Neutrophils % 68 % Lymphocytes % 22 % Monocytes % 4 % Eosinophils % 3 % Basophils % 0 % Neutrophils # 2.8 (1.3-7.7) k/uL Lymphocytes # 0.9 L (1.0-4.8) k/uL Monocytes # 0.2 (0-1.0) k/uL Eosinophils # 0.1 (0-0.7) k/uL Basophils # 0.0 (0-0.2) k/uL Hypochromasia Moderate PT 10.8 (9.0-12.0) sec INR 1.1 (<1.2) APTT 26.6 (22.0-30.0) sec Sodium 141 (137-145) mmol/L Potassium 3.7 (3.5-5.1) mmol/L Chloride 110 H (98-107) mmol/L Carbon Dioxide 25 (22-30) mmol/L Anion Gap 6 mmol/L BUN 17 (7-17) mg/dL Creatinine 0.61 (0.52-1.04) mg/dL Est GFR (CKD-EPI)AfAm >90 (>60 ml/min/1.73 sqM) Est GFR (CKD-EPI)NonAf >90 (>60 ml/min/1.73 sqM) Glucose 141 H (74-99) mg/dL Calcium 8.4 (8.4-10.2) mg/dL Magnesium 2.1 (1.6-2.3) mg/dL Total Bilirubin 0.4 (0.2-1.3) mg/dL AST 13 L (14-36) U/L ALT 14 (9-52) U/L Alkaline Phosphatase 102 (38-126) U/L Total Protein 6.3 (6.3-8.2) g/dL Albumin 2.7 L (3.5-5.0) g/dL - EKG Data -: EKG Interpreted by Me (EKG shows sinus rhythm rate of 100, QRS 74, QTC 42, acute) - Radiology Data Radiology results: report reviewed (Chest x-rays negative for acute disease), image reviewed Disposition Clinical Impression: Morbid obesity, Anxiety Disposition: TRANSFER TO PSYCH HOSP/UNIT Condition: Fair Instructions: Bronchospasm (ED) Is patient prescribed a controlled substance at d/c from ED?: No Referrals: Carlo Frederick MD [Primary Care Provider] - 1-2 days
--- NOTE | 2018-06-17 11:08 | XR ---
EXAMINATION TYPE: XR chest 2V DATE OF EXAM: 06/17/2018 COMPARISON: Chest x-ray from 3 days ago with other studies HISTORY: History of recent pneumonia with shortness of breath TECHNIQUE: Frontal and lateral views of the chest are obtained. FINDINGS: The osseous structures remain demineralized. There is persistent cardiomegaly with atheros clerotic thoracic aorta. There is reticular interstitial changes seen bilaterally with left basilar o pacity. There is persistent small size left pleural effusion and associated left basilar atelectasis and/or infiltrate. Patchy left upper lung opacity remains present. Vertical natanael are partially lorie ged over the anterior abdominal wall. IMPRESSION: Cardiomegaly and chronic parenchymal change with persistent small to moderate-sized left pleural effusion and associated left basilar atelectasis and/or infiltrate with additional patchy lat eral left upper lung infiltrate remaining present. No significant change from most recent study.
[2018-06-17 11:40] LABS: Basophils % (A) 0 %; Eosinophils # (A) 0.1 k/uL (0-0.7); Eosinophils % (A) 3 %; HGB 7.8 gm/dL (11.4-16.0); Hypochromasia Moderate; Lymphocytes # (A) 0.9 k/uL (1.0-4.8); Lymphocytes % (A) 22 %; MCH 28.8 pg (25.0-35.0); MCHC 31.4 g/dL (31.0-37.0); MCV 91.7 fL (80.0-100.0); Mean Platelet Volume 6.4; Monocytes # (A) 0.2 k/uL (0-1.0); Monocytes % (A) 4 %; Neutrophils # (A) 2.8 k/uL (1.3-7.7); Neutrophils % (A) 68 %; Platelet Count 241 k/uL (150-450); RBC 2.72 m/uL (3.80-5.40); WBC 4.1 k/uL (3.8-10.6)
[2018-06-17 11:42] LABS: INR 1.1 (<1.2); Partial Thromboplastin Time 26.6 sec (22.0-30.0); Prothrombin Time 10.8 sec (9.0-12.0)
[2018-06-17 11:44] LABS: ALT 14 U/L (9-52); AST 13 U/L (14-36); Albumin 2.7 g/dL (3.5-5.0); Alkaline Phosphatase 102 U/L (38-126); Anion Gap 6 mmol/L; Blood Urea Nitrogen 17 mg/dL (7-17); Calcium 8.4 mg/dL (8.4-10.2); Carbon Dioxide 25 mmol/L (22-30); Chloride 110 mmol/L (98-107); Glucose 141 mg/dL (74-99); Magnesium 2.1 mg/dL (1.6-2.3); Potassium 3.7 mmol/L (3.5-5.1); Sodium 141 mmol/L (137-145); Total Bilirubin 0.4 mg/dL (0.2-1.3); Total Protein 6.3 g/dL (6.3-8.2)
[2018-06-17 12:11] LABS: Troponin I 0.015 ng/mL (0.000-0.034)
[2018-06-17 12:26] VITALS: BP 144/74; PULSE 84; RESP 20; TEMP 97.9
== END 2018-06-17 13:07 ==
LOC: EC 09:55
DX: I48.91 Unspecified atrial fibrillation (principal); F41.9 Anxiety disorder, unspecified; E66.01 Morbid (severe) obesity due to excess calories; Z68.41 Body mass index [BMI] 40.0-44.9, adult; E78.5 Hyperlipidemia, unspecified; E11.22 Type 2 diabetes mellitus with diabetic chronic kidney disease; I12.9 Hypertensive chronic kidney disease with stage 1 through stage 4 chronic kidney disease, or unspecified chronic kidney disease; N18.3 Chronic kidney disease, stage 3 (moderate); G47.30 Sleep apnea, unspecified; E11.40 Type 2 diabetes mellitus with diabetic neuropathy, unspecified; F32.9 Major depressive disorder, single episode, unspecified; Z82.49 Family history of ischemic heart disease and other diseases of the circulatory system; Z96.652 Presence of left artificial knee joint; Z96.641 Presence of right artificial hip joint; Z86.14 Personal history of Methicillin resistant Staphylococcus aureus infection; Z87.891 Personal history of nicotine dependence; Z79.84 Long term (current) use of oral hypoglycemic drugs; Z79.899 Other long term (current) drug therapy; Z91.048 Other nonmedicinal substance allergy status; Z88.1 Allergy status to other antibiotic agents; Z88.7 Allergy status to serum and vaccine; Z91.040 Latex allergy status; Z91.010 Allergy to peanuts; Z88.0 Allergy status to penicillin
CPT/HCPCS: 36415; 94640; 93005; 83880; 80053; 82550; 82553; 83735; 84484; 85025; 85610; 85730; 71046; 99285; 96374; J2060

== ENCOUNTER 2018-08-17 14:23 | Inpatient (IN) | payer MEDICARE, OTHER ==
--- NOTE | 2018-08-17 15:27 | ED ---
General Adult HPI - General Chief complaint: Abdominal Pain Stated complaint: abdominal pain Time Seen by Provider: 08/17/18 14:58 Source: patient, EMS, RN notes reviewed, old records reviewed Mode of arrival: EMS Limitations: no limitations - History of Present Illness Initial comments: 67-year-old female presenting for evaluation of chronic abdominal pain. Constipation. Patient states her symptoms have been present for many months. She has intermittent liquid stool but complains of constant chronic abdominal pain. 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 She did have some exacerbation of her abdominal pain. It was recommended the patient presented to the emergency department for evaluation. At the time of evaluation patient has minimal pain, she does have some abdominal distention. She's been passing gas and had some liquid stool which is unchanged over the past several months. No vomiting. No fever or chills. - Related Data Home Medications Medication Instructions Recorded Confirmed Atorvastatin [Lipitor] 40 mg PO HS 08/30/15 08/17/18 Sennosides [Senokot] 17.2 mg PO BID 05/22/17 08/17/18 Acetaminophen Tab [Tylenol] 650 mg PO Q6H PRN 07/29/17 08/17/18 Bisacodyl [Dulcolax] 10 mg RECTAL DAILY PRN 11/25/17 08/17/18 Biotin 300 mcg PO DAILY 01/05/18 08/17/18 Calcium Carbonate/Vitamin D3 1 tab PO HS 01/05/18 08/17/18 [Calcium 500-Vit D3 200 Tablet] Multivitamins, Thera [Multivitamin 1 tab PO HS 01/05/18 08/17/18 (formulary)] Oxybutynin Chloride [Oxybutynin 10 mg PO DAILY 01/05/18 08/17/18 Chloride ER] rOPINIRole HCL [Requip] 0.5 mg PO HS 01/05/18 08/17/18 Magnesium Oxide [Mag-Ox] 400 mg PO BID 02/13/18 08/17/18 Omeprazole 20 mg PO DAILY 02/13/18 08/17/18 metFORMIN HCL [Glucophage] 500 mg PO BID 02/13/18 08/17/18 Loratadine [Claritin] 10 mg PO DAILY 06/10/18 08/17/18 HYDROcodone/APAP 5-325MG [[place] 1 tab PO Q4HR PRN 08/17/18 08/17/18 5-325] Lisinopril [Zestril] 5 mg PO DAILY 08/17/18 08/17/18 Mylanta Max Strength Susp 30 ml PO Q6HR PRN 08/17/18 08/17/18 Polyethylene Glycol 3350 [Miralax] 17 gm PO HS PRN 08/17/18 08/17/18 Previous Rx's Medication Instructions Recorded Potassium Chloride ER [K-Dur 20] 20 meq PO HS tab.er.prt 02/17/18 Ipratropium-Albuterol Nebulize 3 ml INHALATION RT-QID #1 ampul.neb 06/14/18 [Duoneb 0.5 mg-3 mg/3 ml Soln] Allergies Allergy/AdvReac Type Severity Reaction Status Date / Time adhesive tape Allergy Severe Rash/Hives Verified 08/17/18 14:38 cephalexin monohydrate Allergy Severe Rash/Hives Verified 08/17/18 14:38 [From Keflex] influenza virus vaccine, Allergy Severe Anaphylaxis Verified 08/17/18 14:38 specific [influenza virus vacc,specific] latex Allergy Severe Rash/Hives Verified 08/17/18 14:38 peanut Allergy Severe Anaphylaxis Verified 08/17/18 14:38 Penicillins Allergy Severe Swelling Verified 08/17/18 14:38 tetanus toxoid, adsorbed Allergy Intermediate Rash/Hives Verified 08/17/18 14:38 Influenza Virus Vaccines Allergy Anaphylaxis Verified 08/17/18 14:38 Review of Systems ROS Statement: Those systems with pertinent positive or pertinent negative responses have been documented in the HPI. ROS Other: All systems not noted in ROS Statement are negative. Past Medical History Past Medical History: Atrial Fibrillation, Diabetes Mellitus, Deep Vein Thrombosis (DVT), Fibromyalgia, GI Bleed, Hyperlipidemia, Hypertension, Pneumonia, Renal Disease, Skin Disorder Additional Past Medical History / Comment(s): Chronic blood loss anemia, hypertension, hyperlipidemia, fibromyalgia, chronic stage III renal failure, morbid obesity, DVT left lower leg with a previous IVC filter in place, dermatitis, gastric ulcer with a previous Clinton-en-Y gastric bypass surgery, chronic lower back pain, morbid obesity, previous history of severe sepsis w/ septic shock including septicemia with MRSA, SVT, DM type 2, hemorrhoids, cellulitis of left lower extremity, dysphagia, falls, muscle weakness, pneumonia , sleep apnea, bilateral tinnitus, atrial fibrillation, UTI. Left eye contusion/ left lower leg laceration - surgically repaired, Right heel pressure ulcer - healed, peripheral neuropathy (bilateral hands and feet), migraines, eczema, sinus problems, lower GI bleed. 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 Past Anesthesia/Blood Transfusion Reactions: Blood Transfusion Reaction Additional Past Anesthesia/Blood Transfusion Reaction / Comment(s): Per chart unspecified reaction. Past Psychological History: Anxiety, Depression Smoking Status: Former smoker Past Alcohol Use History: None Reported Past Drug Use History: Marijuana - Past Family History Father Family Medical History: Myocardial Infarction (OR) Additional Family Medical History / Comment(s): AT AGE 46-OR Mother Family Medical History: Diabetes Mellitus Additional Family Medical History / Comment(s): AT AGE 66 FROM COMPLICATIONS FROM DM Sister(s) Family Medical History: Diabetes Mellitus Brother(s) Family Medical History: Diabetes Mellitus Daughter(s) Family Medical History: Cancer Son(s) Family Medical History: No Reported History General Exam Limitations: no limitations General appearance: alert, in no apparent distress Head exam: Present: atraumatic, normocephalic Eye exam: Present: normal appearance, PERRL ENT exam: Present: normal exam Neck exam: Present: normal inspection. Absent: tenderness, meningismus Respiratory exam: Present: normal lung sounds bilaterally. Absent: respiratory distress, wheezes Cardiovascular Exam: Present: regular rate, normal rhythm GI/Abdominal exam: Present: soft, distended, tenderness. Absent: guarding, rebound Rectal exam: Present: other (Stage I sacral decubitus ulcer, stool in rectal vault) Extremities exam: Present: other (Bilateral lower extremities and bandaged secondary to nonhealing wounds. Clean dry and intact) Neurological exam: Present: alert. Absent: motor sensory deficit Psychiatric exam: Present: normal affect, normal mood Skin exam: Present: warm, dry. Absent: cyanosis, diaphoretic Course Vital Signs 08/17/18 08/17/18 08/17/18 14:25 15:00 16:00 Temperature 98.8 F Pulse Rate 101 H 84 87 Respiratory 16 20 20 Rate Blood Pressure 168/79 133/69 131/68 O2 Sat by Pulse 99 98 98 Oximetry 08/17/18 08/17/18 17:06 19:00 Temperature Pulse Rate 89 95 Respiratory 20 20 Rate Blood Pressure 152/88 174/89 O2 Sat by Pulse 99 99 Oximetry Medical Decision Making - Medical Decision Making 59-year-old female chronic abdominal pain, distended abdomen on exam. Rectal exam reveals stage I sacral decubitus ulcer, stool in the rectal vault. X-rays obtained which is concerning for colonic obstruction. CT is obtained, there is a large sigmoid dilatation consistent with a high-grade obstruction. Patient has normal white blood cell count, hemoglobin is 8 but this is stable for this patient. Labs otherwise unremarkable including normal lactic acid. Case is discussed with Dr. Goel, will admit patient for further evaluation treatment. Patient will be kept nothing by mouth, IV fluids, pain medication. Medicine placed on consult for medical management. - Lab Data Result diagrams: 08/17/18 17:00 08/17/18 17:00 Lab Results 08/17/18 08/17/18 08/17/18 Range/Units 17:00 17:00 17:00 WBC 5.4 (3.8-10.6) k/uL RBC 2.96 L (3.80-5.40) m/uL Hgb 8.0 L (11.4-16.0) gm/dL Hct 25.7 L (34.0-46.0) % MCV 87.0 (80.0-100.0) fL MCH 27.0 (25.0-35.0) pg MCHC 31.0 (31.0-37.0) g/dL RDW 17.4 H (11.5-15.5) % Plt Count 252 (150-450) k/uL Neutrophils % 52 % Lymphocytes % 32 % Monocytes % 6 % Eosinophils % 5 % Basophils % 1 % Neutrophils # 2.8 (1.3-7.7) k/uL Lymphocytes # 1.7 (1.0-4.8) k/uL Monocytes # 0.3 (0-1.0) k/uL Eosinophils # 0.3 (0-0.7) k/uL Basophils # 0.0 (0-0.2) k/uL Hypochromasia Moderate Anisocytosis Slight PT (9.0-12.0) sec INR (<1.2) APTT (22.0-30.0) sec Sodium 139 (137-145) mmol/L Potassium 4.9 (3.5-5.1) mmol/L Chloride 112 H (98-107) mmol/L Carbon Dioxide 22 (22-30) mmol/L Anion Gap 5 mmol/L BUN 24 H (7-17) mg/dL Creatinine 0.76 (0.52-1.04) mg/dL Est GFR (CKD-EPI)AfAm >90 (>60 ml/min/1.73 sqM) Est GFR (CKD-EPI)NonAf 81 (>60 ml/min/1.73 sqM) Glucose 94 (74-99) mg/dL Plasma Lactic Acid Maximus 1.2 (0.7-2.0) mmol/L Calcium 8.3 L (8.4-10.2) mg/dL Total Bilirubin 0.2 (0.2-1.3) mg/dL AST 18 (14-36) U/L ALT 28 (9-52) U/L Alkaline Phosphatase 88 (38-126) U/L Total Protein 5.9 L (6.3-8.2) g/dL Albumin 2.6 L (3.5-5.0) g/dL 08/17/18 Range/Units 17:00 WBC (3.8-10.6) k/uL RBC (3.80-5.40) m/uL Hgb (11.4-16.0) gm/dL Hct (34.0-46.0) % MCV (80.0-100.0) fL MCH (25.0-35.0) pg MCHC (31.0-37.0) g/dL RDW (11.5-15.5) % Plt Count (150-450) k/uL Neutrophils % % Lymphocytes % % Monocytes % % Eosinophils % % Basophils % % Neutrophils # (1.3-7.7) k/uL Lymphocytes # (1.0-4.8) k/uL Monocytes # (0-1.0) k/uL Eosinophils # (0-0.7) k/uL Basophils # (0-0.2) k/uL Hypochromasia Anisocytosis PT 10.1 (9.0-12.0) sec INR 0.9 (<1.2) APTT 23.9 (22.0-30.0) sec Sodium (137-145) mmol/L Potassium (3.5-5.1) mmol/L Chloride (98-107) mmol/L Carbon Dioxide (22-30) mmol/L Anion Gap mmol/L BUN (7-17) mg/dL Creatinine (0.52-1.04) mg/dL Est GFR (CKD-EPI)AfAm (>60 ml/min/1.73 sqM) Est GFR (CKD-EPI)NonAf (>60 ml/min/1.73 sqM) Glucose (74-99) mg/dL Plasma Lactic Acid Maximus (0.7-2.0) mmol/L Calcium (8.4-10.2) mg/dL Total Bilirubin (0.2-1.3) mg/dL AST (14-36) U/L ALT (9-52) U/L Alkaline Phosphatase (38-126) U/L Total Protein (6.3-8.2) g/dL Albumin (3.5-5.0) g/dL Disposition Clinical Impression: Colonic obstruction Disposition: ADMITTED IP TO THIS [facility] Condition: Stable Is patient prescribed a controlled substance at d/c from ED?: No Referrals: Carlo Frederick MD [Primary Care Provider] - 1-2 days Decision to Admit Reason: Admit from EC Decision Date: 08/17/18 Decision Time: 18:10
--- NOTE | 2018-08-17 16:10 | XR ---
EXAMINATION TYPE: XR KUB DATE OF EXAM: 08/17/2018 4:02 PM CLINICAL HISTORY: Worsening chronic abdominal pain TECHNIQUE: Single supine KUB image of the abdomen is obtained. COMPARISON: CT abdomen dated 02/13/2018. FINDINGS: There is new marked dilatation of the colon, this appears to be within redundant sigmoid: H owever exam is suboptimal and there is noninclusion of the entirety of the abdomen given patient body habitus. This appears to be dilated up to 18.3 cm. Surgical clips are seen within the gallbladder fo ssa. Multiple punctate hyperdense foci in the right mid abdomen likely within bowel lumen. Left para midline abdominal surgical natanael are present. Surgical fixation of a left femoral fracture is seen with chronic fracture deformity and heterotopic ossification. Right femoral arthroplasty is partially visualized. No discrete evidence of pneumoperitoneum although evaluation for pneumoperitoneum is shen ited on this supine exam. IMPRESSION: Markedly dilated bowel appearing to represent sigmoid colon that could represent colonic obstruction or volvulus. This could be further evaluated with CT abdomen. Oral contrast is suggested if the patient can tolerate contrast.
[2018-08-17 17:25] LABS: Anisocytosis Slight; Basophils % (A) 1 %; Eosinophils # (A) 0.3 k/uL (0-0.7); Eosinophils % (A) 5 %; HCT 25.7 % (34.0-46.0); Hypochromasia Moderate; Lymphocytes # (A) 1.7 k/uL (1.0-4.8); Lymphocytes % (A) 32 %; Mean Platelet Volume 6.7; Monocytes # (A) 0.3 k/uL (0-1.0); Monocytes % (A) 6 %; Neutrophils # (A) 2.8 k/uL (1.3-7.7); Neutrophils % (A) 52 %; Platelet Count 252 k/uL (150-450); RBC 2.96 m/uL (3.80-5.40); RDW 17.4 % (11.5-15.5); WBC 5.4 k/uL (3.8-10.6)
[2018-08-17 17:39] LABS: ALT 28 U/L (9-52); AST 18 U/L (14-36); Albumin 2.6 g/dL (3.5-5.0); Alkaline Phosphatase 88 U/L (38-126); Anion Gap 5 mmol/L; Blood Urea Nitrogen 24 mg/dL (7-17); Calcium 8.3 mg/dL (8.4-10.2); Carbon Dioxide 22 mmol/L (22-30); Chloride 112 mmol/L (98-107); Glucose 94 mg/dL (74-99); Potassium 4.9 mmol/L (3.5-5.1); Sodium 139 mmol/L (137-145); Total Bilirubin 0.2 mg/dL (0.2-1.3); Total Protein 5.9 g/dL (6.3-8.2)
[2018-08-17 17:40] LABS: INR 0.9 (<1.2); Partial Thromboplastin Time 23.9 sec (22.0-30.0); Prothrombin Time 10.1 sec (9.0-12.0)
--- NOTE | 2018-08-17 19:12 | CT ---
EXAMINATION TYPE: CT abdomen pelvis wo con DATE OF EXAM: 08/17/2018 COMPARISON: 02/13/2018 CT and radiograph from earlier today. HISTORY: Right sided abdominal pain with distension. CT DLP: 856.5 mGycm Automated exposure control for dose reduction was used. TECHNIQUE: Helical acquisition of images was performed from the lung bases through the pelvis. FINDINGS: BOWEL: The markedly dilated loop of bowel rises from the rectosigmoid to the diaphragm and is indeed the sigmoid colon. The high-grade obstruction is at the level of the anal verge where, posteriorly, there is evidence of soft tissue density extending to the posterior skin, i.e. sacral decubitus, alth ough other underlying pathology cannot be excluded. This process appears to measure 9 cm craniocaudal by 5 cm AP by 5 cm transverse. On this noncontrast CT, no drainable fluid collections can be visuali zed and there is no soft tissue emphysema. LUNG BASES: No acute findings, but coronary calcifications noted. LIVER/GB: No significant abnormality is appreciated. PANCREAS: No significant abnormality is seen. SPLEEN: No significant abnormality is seen. ADRENALS: No significant abnormality is seen. KIDNEYS: No significant abnormality is seen. FREE AIR: No free air is visualized. No peritoneal fluid. RETROPERITONEAL ADENOPATHY: None visualized REPRODUCTIVE ORGANS: No significant abnormality is seen URINARY BLADDER: No significant abnormality is seen. PELVIC ADENOPATHY: None visualized. OSSEOUS STRUCTURES: No significant abnormality is seen. IMPRESSION: DISTAL COLON OBSTRUCTION SECONDARY TO 9 X 5 X 5 CM SOFT TISSUE PROCESS INVOLVING THE ANAL CANAL.
[2018-08-17] MEDS ORDERED: MORPHINE SULFATE 4 MG/ML SYRINGE IVP STA (19:40)
[2018-08-17] MEDS ORDERED: ONDANSETRON 4 MG/2 ML VIAL IVP PRN (20:02)
[2018-08-17] MEDS ORDERED: NALOXONE 0.4 MG/ML 1 ML VIAL IV PRN (20:02)
[2018-08-17] MEDS ORDERED: HYDROmorphone 0.5 MG/0.5 ML SYRINGE IVP PRN (20:02)
[2018-08-17] MEDS: SODIUM CHLORIDE 0.9% 1,000 ML IV SCH (20:30)
[2018-08-17] MEDS: HYDROmorphone 1 MG/ML 1 ML SYRINGE IVP PRN (21:23)
[2018-08-17] MEDS ORDERED: IPRATROPIUM-ALBUTEROL 3 ML NEB INHALATION PRN (22:25)
[2018-08-18] MEDS: HYDROmorphone 1 MG/ML 1 ML SYRINGE IVP PRN ×2 (00:01→06:25)
[2018-08-18] MEDS: PANTOPRAZOLE 40 MG/10 ML VIAL IVP SCH ×2 (01:07→09:51)
[2018-08-18] MEDS: HEPARIN SODIUM,PORCINE 5,000 UNIT/ML 1 ML VIAL SQ SCH ×3 (01:07→21:11)
[2018-08-18] MEDS: ACETAMINOPHEN IV (For NPO) 1,000 MG in EMPTY BAG 1 BAG IVPB SCH ×4 (01:08→17:20)
[2018-08-18 02:10] LABS: Appearance,Urine Clear (Clear); Bacteria,Urine Rare /hpf; Bilirubin,Urine Negative (Negative); Blood,Urine Small (Negative); Color,Urine Yellow; Glucose,Urine (UA) Negative (Negative); Ketones,Urine Negative (Negative); Leukocyte Esterase,Urine Moderate (Negative); Mucus,Urine Rare /hpf; Nitrite,Urine Negative (Negative); Protein,Urine 1+ (Negative); RBC,Urine 9 /hpf (0-5); Squamous Epithelial Cell,Urine 1 /hpf (0-4); Urobilinogen,Urine <2.0 mg/dL (<2.0); WBC,Urine 19 /hpf (0-5)
[2018-08-18 07:04] LABS: Glucose,Whole Blood 111 mg/dL (75-99)
[2018-08-18] MEDS: IPRATROPIUM-ALBUTEROL 3 ML NEB INHALATION SCH ×4 (07:30→19:36)
[2018-08-18 08:02] LABS: Anisocytosis Slight; Basophils % (A) 1 %; Eosinophils # (A) 0.3 k/uL (0-0.7); Eosinophils % (A) 7 %; HCT 27.5 % (34.0-46.0); HGB 8.5 gm/dL (11.4-16.0); Hypochromasia Marked; Lymphocytes # (A) 1.8 k/uL (1.0-4.8); Lymphocytes % (A) 40 %; MCH 28.2 pg (25.0-35.0); MCV 90.8 fL (80.0-100.0); Monocytes # (A) 0.2 k/uL (0-1.0); Monocytes % (A) 5 %; Neutrophils # (A) 2.1 k/uL (1.3-7.7); Neutrophils % (A) 45 %; Platelet Count 221 k/uL (150-450); RBC 3.02 m/uL (3.80-5.40); RDW 17.4 % (11.5-15.5); WBC 4.6 k/uL (3.8-10.6)
[2018-08-18 08:23] LABS: Anion Gap 5 mmol/L; Blood Urea Nitrogen 22 mg/dL (7-17); Calcium 8.6 mg/dL (8.4-10.2); Carbon Dioxide 25 mmol/L (22-30); Chloride 113 mmol/L (98-107); Glucose 103 mg/dL (74-99); Potassium 4.9 mmol/L (3.5-5.1); Sodium 143 mmol/L (137-145)
[2018-08-18] MEDS: INSULIN ASPART 100 UNIT/ML 1 ML 10 ML VIAL SQ SCH ×5 (08:55→21:11)
[2018-08-18] MEDS ORDERED: PROPOFOL 10 MG/ML 20 ML VIAL IV ONE (09:26)
[2018-08-18] MEDS ORDERED: SODIUM CHLORIDE 0.9% 500 ML IV ONE (09:26)
--- NOTE | 2018-08-18 09:53 | P.OP ---
Date of Procedure: 08/18/18 Preoperative Diagnosis: Colonic ileus Postoperative Diagnosis: Colonic ileus Procedure(s) Performed: Decompressive colonoscopy Anesthesia: MAC Surgeon: Tavo Goel Pathology: none sent Condition: stable Disposition: PACU Description of Procedure: The patient's placed in the lateral position. She received IV sedation. Digital rectal exam was performed. There is a large amount liquid stool in the rectum. The flexible colonoscope was then placed patient anus passed up to the splenic flexure. The colon was not prepped. The scope could not be passed any further into the colon. This point the Gary's colon performed. A large amount of air was aspirated. There is large amount liquid stool colon. The scope was withdrawn for patient. She was sent to the floor in stable condition.
--- NOTE | 2018-08-18 09:55 | P.GSHP ---
History of Present Illness H&P Date: 08/17/18 Chief Complaint: Abdominal distention, This a 59-year-old female well-known to myself. Patient's had chronic issues with ileus. Patient was admitted to the hospital with dilated colon suggestive colonic ileus. Past Medical History Past Medical History: Atrial Fibrillation, Diabetes Mellitus, Deep Vein Thrombosis (DVT), Fibromyalgia, GI Bleed, Hyperlipidemia, Hypertension, Pneumonia, Renal Disease, Skin Disorder Additional Past Medical History / Comment(s): Chronic blood loss anemia, hypertension, hyperlipidemia, fibromyalgia, chronic stage III renal failure, morbid obesity, DVT left lower leg with a previous IVC filter in place, dermatitis, gastric ulcer with a previous Clinton-en-Y gastric bypass surgery, chronic lower back pain, morbid obesity, previous history of severe sepsis w/ septic shock including septicemia with MRSA, SVT, DM type 2, hemorrhoids, cellulitis of left lower extremity, dysphagia, falls, muscle weakness, pneumonia , sleep apnea, bilateral tinnitus, atrial fibrillation, UTI. Left eye contusion/ left lower leg laceration - surgically repaired, Right heel pressure ulcer - healed, peripheral neuropathy (bilateral hands and feet), migraines, eczema, sinus problems, lower GI bleed. 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; Urine-VRE & ESBL Past Surgical History: Adenoidectomy, Bariatric Surgery, Cholecystectomy, Joint Replacement, Tonsillectomy, Tubal Ligation Additional Past Surgical History / Comment(s): Gastric bypass, [place]-en-Y in 2003 , [place] filter placement in 2000, teeth extraction, colonoscopy, EGD, hemorrhoidectomy, panniculectomy, D&C, hystoscopy x 2, LT KNEE replaced 2005- MRSA infection-hardware removed and cemented then replaced again, L hip repair with screw and total R hip REPLACEMENT, bilateral heel spurs removed, bilateral carpal tunnel releases, D&Cs, infusaport insertion since removed. Past Anesthesia/Blood Transfusion Reactions: Blood Transfusion Reaction Additional Past Anesthesia/Blood Transfusion Reaction / Comment(s): Per chart unspecified reaction. Past Psychological History: Anxiety, Depression Additional Psychological History / Comment(s): Patient is now in extended care. No longer live independently. Does not have any significant family. Was a tobacco smoker stopping several years ago. She has history of smoking 1.5-2 pack per day for 27 years and quit in 1993. She drinks alcohol rarely. 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 No animal exposures. Smoking Status: Former smoker Past Alcohol Use History: None Reported Additional Past Alcohol Use History / Comment(s): She has history of smoking 2 packs per day for 27 years and quit in 1993. She drinks alcohol rarely. 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 Past Drug Use History: Marijuana Additional Drug Use History / Comment(s): . - Past Family History Father Family Medical History: Myocardial Infarction ([place]) Additional Family Medical History / Comment(s): AT AGE 46-[place] Mother Family Medical History: Diabetes Mellitus Additional Family Medical History / Comment(s): AT AGE 66 FROM COMPLICATIONS FROM DM Sister(s) Family Medical History: Diabetes Mellitus Brother(s) Family Medical History: Diabetes Mellitus Daughter(s) Family Medical History: Cancer Son(s) Family Medical History: No Reported History Medications and Allergies Home Medications Medication Instructions Recorded Confirmed Type Atorvastatin [Lipitor] 40 mg PO HS 08/30/15 08/17/18 History Sennosides [Senokot] 17.2 mg PO BID 05/22/17 08/17/18 History Acetaminophen Tab [Tylenol] 650 mg PO Q6H PRN 07/29/17 08/17/18 History Bisacodyl [Dulcolax] 10 mg RECTAL DAILY PRN 11/25/17 08/17/18 History Biotin 300 mcg PO DAILY 01/05/18 08/17/18 History Calcium Carbonate/Vitamin D3 1 tab PO HS 01/05/18 08/17/18 History [Calcium 500-Vit D3 200 Tablet] Multivitamins, Thera [Multivitamin 1 tab PO HS 01/05/18 08/17/18 History (formulary)] Oxybutynin Chloride [Oxybutynin 10 mg PO DAILY 01/05/18 08/17/18 History Chloride ER] rOPINIRole HCL [Requip] 0.5 mg PO HS 01/05/18 08/17/18 History Magnesium Oxide [Mag-Ox] 400 mg PO BID 02/13/18 08/17/18 History Omeprazole 20 mg PO DAILY 02/13/18 08/17/18 History metFORMIN HCL [Glucophage] 500 mg PO BID 02/13/18 08/17/18 History Potassium Chloride ER [K-Dur 20] 20 meq PO HS tab.er.prt 02/17/18 08/17/18 Rx Loratadine [Claritin] 10 mg PO DAILY 06/10/18 08/17/18 History Ipratropium-Albuterol Nebulize 3 ml INHALATION RT-QID #1 ampul.neb 06/14/18 Rx [Duoneb 0.5 mg-3 mg/3 ml Soln] HYDROcodone/APAP 5-325MG [[place] 1 tab PO Q4HR PRN 08/17/18 08/17/18 History 5-325] Lisinopril [Zestril] 5 mg PO DAILY 08/17/18 08/17/18 History Mylanta Max Strength Susp 30 ml PO Q6HR PRN 08/17/18 08/17/18 History Polyethylene Glycol 3350 [Miralax] 17 gm PO HS PRN 08/17/18 08/17/18 History Allergies Allergy/AdvReac Type Severity Reaction Status Date / Time adhesive tape Allergy Severe Rash/Hives Verified 08/17/18 14:38 cephalexin monohydrate Allergy Severe Rash/Hives Verified 08/17/18 14:38 [From Keflex] influenza virus vaccine, Allergy Severe Anaphylaxis Verified 08/17/18 14:38 specific [influenza virus vacc,specific] latex Allergy Severe Rash/Hives Verified 08/17/18 14:38 peanut Allergy Severe Anaphylaxis Verified 08/17/18 14:38 Penicillins Allergy Severe Swelling Verified 08/17/18 14:38 tetanus toxoid, adsorbed Allergy Intermediate Rash/Hives Verified 08/17/18 14:38 Influenza Virus Vaccines Allergy Anaphylaxis Verified 08/17/18 14:38 Surgical - Exam Vital Signs Temp Pulse Resp BP Pulse Ox 98.8 F 101 H 16 168/79 99 08/17/18 14:25 08/17/18 14:25 08/17/18 14:25 08/17/18 14:25 08/17/18 14:25 - General well developed, well nourished, no distress - Eyes PERRL - ENT normal pinna - Neck no masses - Respiratory normal expansion - Cardiovascular Rhythm: regular - Abdomen Abdomen soft. The abdomen is distended. There is no rebound or guarding. Is minimally tender throughout. Abdomen: soft Results - Labs 08/18/18 07:12 08/18/18 07:12 Abnormal Lab Results - Last 24 Hours (Table) 08/17/18 08/17/18 08/18/18 Range/Units 17:00 17:00 01:45 RBC 2.96 L (3.80-5.40) m/uL Hgb 8.0 L (11.4-16.0) gm/dL Hct 25.7 L (34.0-46.0) % RDW 17.4 H (11.5-15.5) % Chloride 112 H (98-107) mmol/L BUN 24 H (7-17) mg/dL Glucose (74-99) mg/dL POC Glucose (mg/dL) (75-99) mg/dL Calcium 8.3 L (8.4-10.2) mg/dL Total Protein 5.9 L (6.3-8.2) g/dL Albumin 2.6 L (3.5-5.0) g/dL Urine Protein 1+ H (Negative) Urine Blood Small H (Negative) Ur Leukocyte Esterase Moderate H (Negative) Urine RBC 9 H (0-5) /hpf Urine WBC 19 H (0-5) /hpf Urine WBC Clumps Rare H (None) /hpf Urine Bacteria Rare H (None) /hpf Urine Mucus Rare H (None) /hpf 08/18/18 08/18/18 08/18/18 Range/Units 06:51 07:12 07:12 RBC 3.02 L (3.80-5.40) m/uL Hgb 8.5 L (11.4-16.0) gm/dL Hct 27.5 L (34.0-46.0) % RDW 17.4 H (11.5-15.5) % Chloride 113 H (98-107) mmol/L BUN 22 H (7-17) mg/dL Glucose 103 H (74-99) mg/dL POC Glucose (mg/dL) 111 H (75-99) mg/dL Calcium (8.4-10.2) mg/dL Total Protein (6.3-8.2) g/dL Albumin (3.5-5.0) g/dL Urine Protein (Negative) Urine Blood (Negative) Ur Leukocyte Esterase (Negative) Urine RBC (0-5) /hpf Urine WBC (0-5) /hpf Urine WBC Clumps (None) /hpf Urine Bacteria (None) /hpf Urine Mucus (None) /hpf Microbiology - Last 24 Hours (Table) 08/17/18 23:00 Gram Stain - Preliminary Leg - Left Wound Culture - Preliminary Diabetes panel 08/17/18 08/18/18 Range/Units 17:00 07:12 Sodium 139 143 (137-145) mmol/L Potassium 4.9 4.9 (3.5-5.1) mmol/L Chloride 112 H 113 H (98-107) mmol/L Carbon Dioxide 22 25 (22-30) mmol/L BUN 24 H 22 H (7-17) mg/dL Creatinine 0.76 0.69 (0.52-1.04) mg/dL Glucose 94 103 H (74-99) mg/dL Calcium 8.3 L 8.6 (8.4-10.2) mg/dL AST 18 (14-36) U/L ALT 28 (9-52) U/L Alkaline Phosphatase 88 (38-126) U/L Total Protein 5.9 L (6.3-8.2) g/dL Albumin 2.6 L (3.5-5.0) g/dL Calcium panel 08/17/18 08/18/18 Range/Units 17:00 07:12 Calcium 8.3 L 8.6 (8.4-10.2) mg/dL Albumin 2.6 L (3.5-5.0) g/dL Pituitary panel 08/17/18 08/18/18 Range/Units 17:00 07:12 Sodium 139 143 (137-145) mmol/L Potassium 4.9 4.9 (3.5-5.1) mmol/L Chloride 112 H 113 H (98-107) mmol/L Carbon Dioxide 22 25 (22-30) mmol/L BUN 24 H 22 H (7-17) mg/dL Creatinine 0.76 0.69 (0.52-1.04) mg/dL Glucose 94 103 H (74-99) mg/dL Calcium 8.3 L 8.6 (8.4-10.2) mg/dL Adrenal panel 08/17/18 08/18/18 Range/Units 17:00 07:12 Sodium 139 143 (137-145) mmol/L Potassium 4.9 4.9 (3.5-5.1) mmol/L Chloride 112 H 113 H (98-107) mmol/L Carbon Dioxide 22 25 (22-30) mmol/L BUN 24 H 22 H (7-17) mg/dL Creatinine 0.76 0.69 (0.52-1.04) mg/dL Glucose 94 103 H (74-99) mg/dL Calcium 8.3 L 8.6 (8.4-10.2) mg/dL Total Bilirubin 0.2 (0.2-1.3) mg/dL AST 18 (14-36) U/L ALT 28 (9-52) U/L Alkaline Phosphatase 88 (38-126) U/L Total Protein 5.9 L (6.3-8.2) g/dL Albumin 2.6 L (3.5-5.0) g/dL Assessment and Plan Assessment: Colonic ileus. Patient will undergo decompressed colonoscopy in the a.m.
[2018-08-18] MEDS ORDERED: POLYETHYLENE GLYCOL 3350 17 GM POWD.PACK PO PRN (11:17)
[2018-08-18] MEDS ORDERED: BISACODYL 10 MG SUPP RECTAL PRN (11:17)
[2018-08-18 11:42] LABS: Glucose,Whole Blood 105 mg/dL (75-99)
[2018-08-18] MEDS ORDERED: IPRATROPIUM-ALBUTEROL 3 ML NEB INHALATION SCH (12:00)
[2018-08-18] MEDS: SODIUM CHLORIDE 0.9% 1,000 ML IV SCH (12:50)
--- NOTE | 2018-08-18 13:45 | P.CONS ---
History of Present Illness - Reason for Consult Recommendations regarding antihypertensive and diabetic medications - History of Present Illness 59-year-old female with a known history of constipation in spite of daily bowel movements came in for the severe constipation: Neck obstruction patient underwent the diagnostic and therapy the colonoscopy ration did have a good bowel movement. Patient's abdomen is soft is still having sluggish bowel sounds area at patient denied any fever chills nausea vomiting abdominal pain at this time. Patient does have bilateral leg ulcers for which patient will receive local wound care and the infectious disease was consulted regarding this patient does have significant weakness which is chronic in both legs and atrophy of both lower limb muscles. Patient is chronically bedbound uses wheelchair and a correction resident. Review of Systems REVIEW OF SYSTEMS: CONSTITUTIONAL: No fever, no malaise, no fatigue. HEENT: No recent visual problems or hearing problems. Denied any sore throat. CARDIOVASCULAR: No chest pain, orthopnea, PND, no palpitations, no syncope. PULMONARY: No shortness of breath, no cough, no hemoptysis. GASTROINTESTINAL: As mentioned in HPI NEUROLOGICAL: No headaches, no weakness, no numbness. HEMATOLOGICAL: Denies any bleeding or petechiae. GENITOURINARY: Denies any burning micturition, frequency, or urgency. MUSCULOSKELETAL/RHEUMATOLOGICAL: Denies any joint pain, swelling, or any muscle pain. ENDOCRINE: Denies any polyuria or polydipsia. The rest of the 14-point review of systems is negative. Past Medical History Past Medical History: Atrial Fibrillation, Diabetes Mellitus, Deep Vein Thrombosis (DVT), Fibromyalgia, GI Bleed, Hyperlipidemia, Hypertension, Pneumonia, Renal Disease, Skin Disorder Additional Past Medical History / Comment(s): Chronic blood loss anemia, hypertension, hyperlipidemia, fibromyalgia, chronic stage III renal failure, morbid obesity, DVT left lower leg with a previous IVC filter in place, dermatitis, gastric ulcer with a previous Clinton-en-Y gastric bypass surgery, chronic lower back pain, morbid obesity, previous history of severe sepsis w/ septic shock including septicemia with MRSA, SVT, DM type 2, hemorrhoids, cellulitis of left lower extremity, dysphagia, falls, muscle weakness, pneumonia , sleep apnea, bilateral tinnitus, atrial fibrillation, UTI. Left eye contusion/ left lower leg laceration - surgically repaired, Right heel pressure ulcer - healed, peripheral neuropathy (bilateral hands and feet), migraines, eczema, sinus problems, lower GI bleed. 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; Urine-VRE & ESBL Past Surgical History: Adenoidectomy, Bariatric Surgery, Cholecystectomy, Joint Replacement, Tonsillectomy, Tubal Ligation Additional Past Surgical History / Comment(s): Gastric bypass, [place]-en-Y in 2003 , [place] filter placement in 2000, teeth extraction, colonoscopy, EGD, hemorrhoidectomy, panniculectomy, D&C, hystoscopy x 2, LT KNEE replaced 2005- MRSA infection-hardware removed and cemented then replaced again, L hip repair with screw and total R hip REPLACEMENT, bilateral heel spurs removed, bilateral carpal tunnel releases, D&Cs, infusaport insertion since removed. Past Anesthesia/Blood Transfusion Reactions: Blood Transfusion Reaction Additional Past Anesthesia/Blood Transfusion Reaction / Comm: Per chart unspecified reaction. Past Psychological History: Anxiety, Depression Additional Psychological History / Comment(s): Patient is now in extended care. No longer live independently. Does not have any significant family. Was a tobacco smoker stopping several years ago. She has history of smoking 1.5-2 pack per day for 27 years and quit in 1993. She drinks alcohol rarely. 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 No animal exposures. Smoking Status: Former smoker Past Alcohol Use History: None Reported Additional Past Alcohol Use History / Comment(s): She has history of smoking 2 packs per day for 27 years and quit in 1993. She drinks alcohol rarely. 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 Past Drug Use History: Marijuana Additional Drug Use History / Comment(s): . - Past Family History Father Family Medical History: Myocardial Infarction ([place]) Additional Family Medical History / Comment(s): AT AGE 46-[place] Mother Family Medical History: Diabetes Mellitus Additional Family Medical History / Comment(s): AT AGE 66 FROM COMPLICATIONS FROM DM Sister(s) Family Medical History: Diabetes Mellitus Brother(s) Family Medical History: Diabetes Mellitus Daughter(s) Family Medical History: Cancer Son(s) Family Medical History: No Reported History Medications and Allergies Home Medications Medication Instructions Recorded Confirmed Type Atorvastatin [Lipitor] 40 mg PO HS 08/30/15 08/17/18 History Sennosides [Senokot] 17.2 mg PO BID 05/22/17 08/17/18 History Acetaminophen Tab [Tylenol] 650 mg PO Q6H PRN 07/29/17 08/17/18 History Bisacodyl [Dulcolax] 10 mg RECTAL DAILY PRN 11/25/17 08/17/18 History Biotin 300 mcg PO DAILY 01/05/18 08/17/18 History Calcium Carbonate/Vitamin D3 1 tab PO HS 01/05/18 08/17/18 History [Calcium 500-Vit D3 200 Tablet] Multivitamins, Thera [Multivitamin 1 tab PO HS 01/05/18 08/17/18 History (formulary)] Oxybutynin Chloride [Oxybutynin 10 mg PO DAILY 01/05/18 08/17/18 History Chloride ER] rOPINIRole HCL [Requip] 0.5 mg PO HS 01/05/18 08/17/18 History Magnesium Oxide [Mag-Ox] 400 mg PO BID 02/13/18 08/17/18 History Omeprazole 20 mg PO DAILY 02/13/18 08/17/18 History metFORMIN HCL [Glucophage] 500 mg PO BID 02/13/18 08/17/18 History Potassium Chloride ER [K-Dur 20] 20 meq PO HS tab.er.prt 02/17/18 08/17/18 Rx Loratadine [Claritin] 10 mg PO DAILY 06/10/18 08/17/18 History Ipratropium-Albuterol Nebulize 3 ml INHALATION RT-QID #1 ampul.neb 06/14/18 Rx [Duoneb 0.5 mg-3 mg/3 ml Soln] HYDROcodone/APAP 5-325MG [[place] 1 tab PO Q4HR PRN 08/17/18 08/17/18 History 5-325] Lisinopril [Zestril] 5 mg PO DAILY 08/17/18 08/17/18 History Mylanta Max Strength Susp 30 ml PO Q6HR PRN 08/17/18 08/17/18 History Polyethylene Glycol 3350 [Miralax] 17 gm PO HS PRN 08/17/18 08/17/18 History Allergies Allergy/AdvReac Type Severity Reaction Status Date / Time adhesive tape Allergy Severe Rash/Hives Verified 08/17/18 14:38 cephalexin monohydrate Allergy Severe Rash/Hives Verified 08/17/18 14:38 [From Keflex] influenza virus vaccine, Allergy Severe Anaphylaxis Verified 08/17/18 14:38 specific [influenza virus vacc,specific] latex Allergy Severe Rash/Hives Verified 08/17/18 14:38 peanut Allergy Severe Anaphylaxis Verified 08/17/18 14:38 Penicillins Allergy Severe Swelling Verified 08/17/18 14:38 tetanus toxoid, adsorbed Allergy Intermediate Rash/Hives Verified 08/17/18 14:38 Influenza Virus Vaccines Allergy Anaphylaxis Verified 08/17/18 14:38 Physical Exam Vitals: Vital Signs Temp Pulse Pulse Resp BP BP Pulse Ox 08/18/18 11:46 72 08/18/18 11:40 72 08/18/18 08:05 76 08/18/18 08:00 98.8 F 71 17 158/74 99 08/18/18 07:30 73 08/17/18 23:00 98.7 F 73 16 169/75 97 08/17/18 21:35 99.0 F 73 16 168/75 98 08/17/18 20:30 98.9 F 85 20 150/94 97 08/17/18 19:00 95 20 174/89 99 08/17/18 17:06 89 20 152/88 99 08/17/18 16:00 87 20 131/68 98 08/17/18 15:00 84 20 133/69 98 08/17/18 14:25 98.8 F 101 H 16 168/79 99 Intake and Output 08/17/18 08/18/18 08/18/18 22:59 06:59 14:59 Intake Total 175 200 Output Total 1000 Balance -1000 175 200 Intake: IV 200 Intake, IV Titration 175 Amount ACETAMINOPHEN IV (For NPO 100 ) 1,000 mg In Empty Bag 1 bag @ 400 mls/hr IVPB Q6H GUALBERTO Rx#:[id number] Sodium Chloride 0.9% 1, 75 000 ml @ 75 mls/hr IV . [id number] Rx#:[id number] Output: Urine 1000 Other: Voiding Method Indwelling Catheter Indwelling Catheter # Bowel Movements 1 PHYSICAL EXAMINATION: GENERAL: The patient is alert and oriented x3, not in any acute distress. Well developed, well nourished. HEENT: Pupils are round and equally reacting to light. EOMI. No scleral icterus. No conjunctival pallor. Normocephalic, atraumatic. No pharyngeal erythema. No thyromegaly. CARDIOVASCULAR: S1 and S2 present. No murmurs, rubs, or gallops. PULMONARY: Chest is clear to auscultation, no wheezing or crackles. ABDOMEN: Soft, still be distended sluggish bowel sounds MUSCULOSKELETAL: No joint swelling or deformity. EXTREMITIES: No cyanosis, clubbing, or pedal edema. NEUROLOGICAL: Gross neurological examination did not reveal any new focal deficits. Chronic were both bilateral lower limb weakness SKIN: Patient has bilateral lower limb redness which is chronic venous stasis without any significant local is of temperature multiple stage I to 2 ulcerations in the legs for which patient will need local wound care. Results CBC & Chem 7: 08/18/18 07:12 08/18/18 07:12 Labs: Abnormal Lab Results - Last 24 Hours (Table) 08/17/18 08/17/18 08/18/18 Range/Units 17:00 17:00 01:45 RBC 2.96 L (3.80-5.40) m/uL Hgb 8.0 L (11.4-16.0) gm/dL Hct 25.7 L (34.0-46.0) % RDW 17.4 H (11.5-15.5) % Chloride 112 H (98-107) mmol/L BUN 24 H (7-17) mg/dL Glucose (74-99) mg/dL POC Glucose (mg/dL) (75-99) mg/dL Calcium 8.3 L (8.4-10.2) mg/dL Total Protein 5.9 L (6.3-8.2) g/dL Albumin 2.6 L (3.5-5.0) g/dL Urine Protein 1+ H (Negative) Urine Blood Small H (Negative) Ur Leukocyte Esterase Moderate H (Negative) Urine RBC 9 H (0-5) /hpf Urine WBC 19 H (0-5) /hpf Urine WBC Clumps Rare H (None) /hpf Urine Bacteria Rare H (None) /hpf Urine Mucus Rare H (None) /hpf 08/18/18 08/18/18 08/18/18 Range/Units 06:51 07:12 07:12 RBC 3.02 L (3.80-5.40) m/uL Hgb 8.5 L (11.4-16.0) gm/dL Hct 27.5 L (34.0-46.0) % RDW 17.4 H (11.5-15.5) % Chloride 113 H (98-107) mmol/L BUN 22 H (7-17) mg/dL Glucose 103 H (74-99) mg/dL POC Glucose (mg/dL) 111 H (75-99) mg/dL Calcium (8.4-10.2) mg/dL Total Protein (6.3-8.2) g/dL Albumin (3.5-5.0) g/dL Urine Protein (Negative) Urine Blood (Negative) Ur Leukocyte Esterase (Negative) Urine RBC (0-5) /hpf Urine WBC (0-5) /hpf Urine WBC Clumps (None) /hpf Urine Bacteria (None) /hpf Urine Mucus (None) /hpf 08/18/18 Range/Units 11:31 RBC (3.80-5.40) m/uL Hgb (11.4-16.0) gm/dL Hct (34.0-46.0) % RDW (11.5-15.5) % Chloride (98-107) mmol/L BUN (7-17) mg/dL Glucose (74-99) mg/dL POC Glucose (mg/dL) 105 H (75-99) mg/dL Calcium (8.4-10.2) mg/dL Total Protein (6.3-8.2) g/dL Albumin (3.5-5.0) g/dL Urine Protein (Negative) Urine Blood (Negative) Ur Leukocyte Esterase (Negative) Urine RBC (0-5) /hpf Urine WBC (0-5) /hpf Urine WBC Clumps (None) /hpf Urine Bacteria (None) /hpf Urine Mucus (None) /hpf Microbiology - Last 24 Hours (Table) 08/18/18 01:45 Urine Culture - Preliminary Urine,Catheterized 08/17/18 23:00 Gram Stain - Preliminary Leg - Left Wound Culture - Preliminary Assessment and Plan Plan: -Chronic absorption severe constipation: Patient on colonoscopy therapeutic. Patient is still nothing by mouth -Type 2 diabetes mellitus hold off on 9 oral hypoglycemic agents patient will be started on sliding scale insulin -Hyperlipidemia -Hypertension: Patient is resumed on her home regimen monitor blood pressures -The lateral lower limb venous ulcerations: For which patient will require wound care was consulted regarding this -Fibromyalgia -History of DVT in the past not on anti-correlation at this time -History of SVT patient is presently sinus rhythm -Chronic venous stasis and the deconditioning chronic -Patient will need pharmacologic GI and DVT prophylaxis
[2018-08-18 16:23] LABS: Hemoglobin A1C 6.8 % (4.0-6.0)
[2018-08-18 17:18] LABS: Glucose,Whole Blood 135 mg/dL (75-99)
[2018-08-18 20:43] LABS: Glucose,Whole Blood 187 mg/dL (75-99)
[2018-08-18] MEDS: ATORVASTATIN 40 MG TAB PO SCH (21:11)
[2018-08-18] MEDS: SENNOSIDES 8.6 MG TAB PO SCH (21:12)
[2018-08-18] MEDS: MAGNESIUM OXIDE 400 MG TAB PO SCH (21:12)
--- NOTE | 2018-08-18 23:49 | PN ---
PROGRESS NOTE DATE OF SERVICE: 08/18/2018. REASON FOR CONSULTATION: Wound care. HISTORY OF PRESENT ILLNESS: The patient is a 67-year-old female apparently did have wound to her left leg area. This patient did have a complicated history for her left knee infection concern. The patient presenting to the ER at [facility] for abdominal pain and constipation as symptoms have not be improving for a couple of weeks to two months now. With these worse, the patient describes the pain to be more of a dull aching to colicky almost 6 to 7 out of 10 and no radiation. The patient did feel nauseated but no vomiting and did have evidence of constipation. With these symptoms, the patient was evaluated by the ER physician. The patient did have a CT abdomen and pelvis which shows distal colon obstruction secondary to soft tissue process involving the . Patient subsequently has been admitted to the General Surgery. She has been taken to OR this morning for a decompressive colonoscopy with no mention of any rectal mass. The patient did not have any high-grade fever or any elevated white count. Infectious Disease was consulted for management of left leg wound foot which the patient has for a couple of weeks to months now. The patient is not very clear what exact type of dressing has been applied to her leg wounds. Denies significant pain to the leg wound area. There is some swelling but no redness or any foul-smelling drainage. REVIEW OF SYSTEMS: Positive points have been mentioned in HPI. Rest of the systems have been negative. PAST MEDICAL HISTORY: Atrial fibrillation, diabetes mellitus, DVT, fibromyalgia, hypertension, hyperlipidemia, pneumonia, renal insufficiency, DVT, renal failure, previously, previous history of ESBL, MRSA and VRE infection. PAST SURGICAL HISTORY: Adenoidectomy, bariatric surgery, cholecystectomy, tonsillectomy, tubal ligation, gastric bypass, also skin grafting from the right thigh to the left leg area. SOCIAL HISTORY: Remote history of smoking. No drinking or drug use. Currently a detention resident. FAMILY HISTORY: Father history of AL, age 46 with a mother with history of diabetes and from complication of diabetes age of 66. ALLERGIES: MULTIPLE MEDICATIONS INCLUDING CEPHALEXIN, LATEX, PENICILLIN, TETANUS TOXOID. MEDICATIONS: The patient is currently on DuoNeb, Lipitor, Dulcolax, heparin, NovoLog, Questran, mag oxide, Zofran, Protonix, MiraLAX, Requip and Senokot. PHYSICAL EXAMINATION: VITAL SIGNS: Blood pressure 149/73 with a pulse of 77, temperature 99, she is 98% on room air. General description is an elderly female, lying in bed in no distress. No tachypnea or accessory muscle of respiration use. HEENT: Shows pallor. No scleral icterus. Oral mucosa membranes are dry. No pharyngeal erythema or thrush. NECK: Trachea central. No thyromegaly. LUNGS: Unlabored breathing, clear to auscultation anteriorly. No wheeze or crackles. Heart S1, S2. Regular rate and rhythm. ABDOMEN: Soft, no tenderness. No guarding or rigidity. EXTREMITIES: Did have some chronic swelling with some superficial ulceration but no slough tissue. Minimal bleeding was noticed at the time of dressing changes. No purulent drainage. NEUROLOGICAL: Patient is awake, alert, oriented x3. Mood and affect normal. LABS: Hemoglobin 8.5, white count 4.6, BUN of 22, creatinine 0.65. DIAGNOSTIC IMPRESSION AND PLAN: Patient with chronic nonhealing wound to the left leg which the patient has had 4 months currently with no evidence of any active cellulitis, wound base with no significant slough tissue. Recommend local wound care and no need for any systemic antibiotic therapy. PLAN: 1. Aquacel Silver dressing to the left flank and thigh area to be changed every 48 hours. 2. Wound should be covered with an Daren wrap to keep some of the swelling down. 3. We will follow her clinical condition and culture to further adjust medication if needed. Thank you for this consultation. Will follow this patient long with you. MMODL / IJN: [id number] /
[2018-08-19] MEDS: SODIUM CHLORIDE 0.9% 1,000 ML IV SCH (06:47)
[2018-08-19 07:27] LABS: Glucose,Whole Blood 126 mg/dL (75-99)
[2018-08-19] MEDS: INSULIN ASPART 100 UNIT/ML 1 ML 10 ML VIAL SQ SCH (07:31)
[2018-08-19] MEDS: HEPARIN SODIUM,PORCINE 5,000 UNIT/ML 1 ML VIAL SQ SCH ×2 (08:34→23:32)
[2018-08-19] MEDS: PANTOPRAZOLE 40 MG/10 ML VIAL IVP SCH (08:34)
[2018-08-19] MEDS: LISINOPRIL 5 MG TAB PO SCH (08:34)
[2018-08-19] MEDS: OXYBUTYNIN 10 MG TAB.ER.24 PO SCH (08:34)
[2018-08-19] MEDS: MAGNESIUM OXIDE 400 MG TAB PO SCH ×2 (08:34→23:31)
[2018-08-19] MEDS: SENNOSIDES 8.6 MG TAB PO SCH ×2 (08:34→23:31)
[2018-08-19 08:56] LABS: Anisocytosis Slight; Basophils % (A) 1 %; Eosinophils # (A) 0.3 k/uL (0-0.7); Eosinophils % (A) 7 %; HCT 26.4 % (34.0-46.0); HGB 8.2 gm/dL (11.4-16.0); Hypochromasia Marked; Lymphocytes # (A) 1.3 k/uL (1.0-4.8); Lymphocytes % (A) 35 %; MCH 28.1 pg (25.0-35.0); MCHC 31.2 g/dL (31.0-37.0); MCV 90.1 fL (80.0-100.0); Monocytes # (A) 0.2 k/uL (0-1.0); Monocytes % (A) 6 %; Neutrophils # (A) 1.9 k/uL (1.3-7.7); Neutrophils % (A) 49 %; Platelet Count 238 k/uL (150-450); RBC 2.93 m/uL (3.80-5.40); RDW 17.4 % (11.5-15.5); WBC 3.9 k/uL (3.8-10.6)
[2018-08-19] MEDS: IPRATROPIUM-ALBUTEROL 3 ML NEB INHALATION SCH ×2 (09:09→21:33)
[2018-08-19 09:11] LABS: Blood Urea Nitrogen 17 mg/dL (7-17); Calcium 8.8 mg/dL (8.4-10.2); Carbon Dioxide 23 mmol/L (22-30); Glucose 116 mg/dL (74-99); Potassium 4.4 mmol/L (3.5-5.1); Sodium 143 mmol/L (137-145)
[2018-08-19 09:26] LABS: Anion Gap 4 mmol/L; Chloride 116 mmol/L (98-107)
--- NOTE | 2018-08-19 11:53 | P.PN ---
Progress Note - Text Progress Note Date: 08/19/18 The patient states that her abdominal pain is slightly improved. She still feels quite distended. She had undergone decompressive colonoscopy yesterday. On exam her vital signs are stable. Her abdomen soft. There is some minimal tenderness throughout. There is no rebound or guarding. Chronic colonic ileus. If patient does not have significant improvement she may need a colostomy for colonic decompression. We will observe her closely. She'll remain on clear liquids.
[2018-08-19 12:26] LABS: Glucose,Whole Blood 143 mg/dL (75-99)
[2018-08-19] MEDS ORDERED: SODIUM CHLORIDE 0.9% 1,000 ML BAG ONE (14:00)
[2018-08-19] MEDS ORDERED: IPRATROPIUM-ALBUTEROL 3 ML NEB ONE (14:00)
[2018-08-19] MEDS ORDERED: INSULIN ASPART 100 UNIT/ML 1 ML 10 ML VIAL SQ ONE (14:00)
[2018-08-19 18:47] LABS: Glucose,Whole Blood 106 mg/dL (75-99)
[2018-08-19 21:07] LABS: Glucose,Whole Blood 151 mg/dL (75-99)
[2018-08-19] MEDS: ATORVASTATIN 40 MG TAB PO SCH (23:31)
[2018-08-20] MEDS: INSULIN ASPART 100 UNIT/ML 1 ML 10 ML VIAL SQ SCH ×5 (07:04→21:09)
[2018-08-20] MEDS: SODIUM CHLORIDE 0.9% 1,000 ML IV SCH ×2 (07:04→15:36)
[2018-08-20 07:25] LABS: Glucose,Whole Blood 125 mg/dL (75-99)
[2018-08-20] MEDS: IPRATROPIUM-ALBUTEROL 3 ML NEB INHALATION SCH ×5 (07:31→19:04)
--- NOTE | 2018-08-20 07:52 | PN ---
PROGRESS NOTE DATE OF SERVICE: 08/19/2018 REASON FOR FOLLOWUP: Left thigh and leg wound. INTERVAL HISTORY: The patient is afebrile. Has been breathing comfortably. Denies having any chest pain. No cough. Abdominal pain has improved. No nausea, vomiting. Has been tolerating clear liquid diet. Denies any pain to the leg area. PHYSICAL EXAMINATION: Blood pressure is 166/77 with a pulse of 71, temperature 99.3, she is 96% on room air. GENERAL DESCRIPTION: An elderly female lying in bed in no distress. RESPIRATORY SYSTEM: Unlabored breathing, clear to auscultation anteriorly. HEART: S1, S2. Regular rate and rhythm. ABDOMEN: Soft. No tenderness. Left leg and thigh wound is currently dressed up, no obvious drainage on the dressing. LABS: Hemoglobin 8.2, white count 3.9, BUN of 17, creatinine 0.64. Urine showing a gram- negative left leg wound with coagulase negative staph. DIAGNOSTIC IMPRESSION AND PLAN: 1. Patient with a left leg and thigh wound, more cellulitis. Local wound care with Aquacel Silver dressing. 2. The patient with possible urinary tract infection. Urine is currently showing gram- negative in this patient who has multiple antibiotic allergies. We will add Azactam 1 g q.12 hours while waiting for the final ID of this pathogen. Continue supportive care. MMODL / IJN: [id number] /
[2018-08-20 08:45] LABS: Anisocytosis Slight; Basophils % (A) 1 %; Eosinophils # (A) 0.3 k/uL (0-0.7); Eosinophils % (A) 7 %; HCT 28.2 % (34.0-46.0); HGB 8.8 gm/dL (11.4-16.0); Hypochromasia Moderate; Lymphocytes # (A) 1.7 k/uL (1.0-4.8); Lymphocytes % (A) 40 %; MCH 27.8 pg (25.0-35.0); MCHC 31.3 g/dL (31.0-37.0); MCV 88.9 fL (80.0-100.0); Mean Platelet Volume 6.3; Monocytes # (A) 0.3 k/uL (0-1.0); Monocytes % (A) 6 %; Neutrophils # (A) 1.8 k/uL (1.3-7.7); Neutrophils % (A) 44 %; Platelet Count 235 k/uL (150-450); RBC 3.17 m/uL (3.80-5.40); RDW 17.1 % (11.5-15.5); WBC 4.2 k/uL (3.8-10.6)
[2018-08-20 08:52] LABS: Anion Gap 4 mmol/L; Blood Urea Nitrogen 12 mg/dL (7-17); Calcium 8.7 mg/dL (8.4-10.2); Carbon Dioxide 23 mmol/L (22-30); Chloride 115 mmol/L (98-107); Glucose 116 mg/dL (74-99); Potassium 3.8 mmol/L (3.5-5.1); Sodium 142 mmol/L (137-145)
[2018-08-20] MEDS: MAGNESIUM OXIDE 400 MG TAB PO SCH ×2 (09:16→21:10)
[2018-08-20] MEDS: OXYBUTYNIN 10 MG TAB.ER.24 PO SCH (09:16)
[2018-08-20] MEDS: CIPROFLOXACIN HCL 500 MG TAB PO SCH ×2 (09:16→21:09)
[2018-08-20] MEDS: HEPARIN SODIUM,PORCINE 5,000 UNIT/ML 1 ML VIAL SQ SCH ×2 (09:16→21:09)
[2018-08-20] MEDS: PANTOPRAZOLE 40 MG/10 ML VIAL IVP SCH (09:16)
[2018-08-20] MEDS: SENNOSIDES 8.6 MG TAB PO SCH ×2 (09:16→21:10)
[2018-08-20] MEDS: LISINOPRIL 5 MG TAB PO SCH (09:16)
--- NOTE | 2018-08-20 10:12 | P.PN ---
Subjective Progress Note Date: 08/19/18 59-year-old female with a known history of constipation in spite of daily bowel movements came in for the severe constipation: Neck obstruction patient underwent the diagnostic and therapy the colonoscopy ration did have a good bowel movement. Patient's abdomen is soft is still having sluggish bowel sounds area at patient denied any fever chills nausea vomiting abdominal pain at this time. Patient does have bilateral leg ulcers for which patient will receive local wound care and the infectious disease was consulted regarding this patient does have significant weakness which is chronic in both legs and atrophy of both lower limb muscles. Patient is chronically bedbound uses wheelchair and a [facility] resident. 08/19/2018 No overnight events patient did not move her bowels name patient will undergo therapeutic colonoscopy today was probably Constitutional: Denied any fatigue denied any fever. Cardio vascular: denied any chest pain, palpitations Gastrointestinal denied any nausea vomiting Pulmonary: Denied any shortness of breath cough Neurologic denied any new focal deficits All inpatient medications were reviewed and appropriate changes in these medications as dictated in the interval history and assessment and plan. Objective - Vital Signs Vital signs: Vital Signs Temp 98.0 F 08/20/18 07:42 Pulse 58 L 08/20/18 07:42 Resp 14 08/20/18 07:42 BP 188/62 08/20/18 07:42 Pulse Ox 100 08/20/18 07:42 Intake & Output 08/19/18 08/20/18 08/20/18 18:59 06:59 18:59 Output Total 1500 5300 Balance -1500 -5300 Output: Urine 1500 5300 Other: Voiding Method Indwelling Catheter Indwelling Catheter - Exam PHYSICAL EXAMINATION: GENERAL: The patient is alert and oriented x3, not in any acute distress. Well developed, well nourished. HEENT: Pupils are round and equally reacting to light. EOMI. No scleral icterus. No conjunctival pallor. Normocephalic, atraumatic. No pharyngeal erythema. No thyromegaly. CARDIOVASCULAR: S1 and S2 present. No murmurs, rubs, or gallops. PULMONARY: Chest is clear to auscultation, no wheezing or crackles. ABDOMEN: Soft, still be distended sluggish bowel sounds MUSCULOSKELETAL: No joint swelling or deformity. EXTREMITIES: No cyanosis, clubbing, or pedal edema. NEUROLOGICAL: Gross neurological examination did not reveal any new focal deficits. Chronic were both bilateral lower limb weakness SKIN: Patient has bilateral lower limb redness which is chronic venous stasis without any significant local is of temperature multiple stage I to 2 ulcerations in the legs for which patient will need local wound care. - Labs CBC & Chem 7: 08/20/18 07:28 08/20/18 07:28 Labs: Abnormal Lab Results - Last 24 Hours (Table) 08/19/18 08/19/18 08/19/18 Range/Units 12:14 17:29 20:56 RBC (3.80-5.40) m/uL Hgb (11.4-16.0) gm/dL Hct (34.0-46.0) % RDW (11.5-15.5) % Chloride (98-107) mmol/L Glucose (74-99) mg/dL POC Glucose (mg/dL) 143 H 106 H 151 H (75-99) mg/dL 08/20/18 08/20/18 08/20/18 Range/Units 07:13 07:28 07:28 RBC 3.17 L (3.80-5.40) m/uL Hgb 8.8 L (11.4-16.0) gm/dL Hct 28.2 L (34.0-46.0) % RDW 17.1 H (11.5-15.5) % Chloride 115 H (98-107) mmol/L Glucose 116 H (74-99) mg/dL POC Glucose (mg/dL) 125 H (75-99) mg/dL Microbiology - Last 24 Hours (Table) 08/18/18 01:45 Urine Culture - Final Urine,Catheterized Escherichia coli 08/17/18 23:00 Gram Stain - Preliminary Leg - Left Wound Culture - Preliminary Coagulase Negative Staph Assessment and Plan Plan: -Chronic absorption severe constipation: Patient on colonoscopy therapeutic. Patient is still nothing by mouth -Type 2 diabetes mellitus hold off on 9 oral hypoglycemic agents patient will be started on sliding scale insulin -Hyperlipidemia -Hypertension: Patient is resumed on her home regimen monitor blood pressures -The lateral lower limb venous ulcerations: For which patient will require wound care was consulted regarding this -Fibromyalgia -History of DVT in the past not on anti-correlation at this time -History of SVT patient is presently sinus rhythm -Chronic venous stasis and the deconditioning chronic -Patient will need pharmacologic GI and DVT prophylaxis
[2018-08-20 11:43] LABS: Glucose,Whole Blood 130 mg/dL (75-99)
--- NOTE | 2018-08-20 15:05 | P.PN ---
Progress Note - Text Progress Note Date: 08/20/18 The patient is resting comfortably in her bed. She still has some complaints of abdominal distention. Her pain is better today. She had some flatus yesterday. On exam her lesser stable. Abdomen soft mildly distended. Abdominal pain related to chronic colonic ileus. Patient repeat x-rays perform. She may benefit from colostomy.
[2018-08-20 17:43] LABS: Glucose,Whole Blood 130 mg/dL (75-99)
--- NOTE | 2018-08-20 17:54 | P.PN ---
Subjective 59-year-old female with a known history of constipation in spite of daily bowel movements came in for the severe constipation: Neck obstruction patient underwent the diagnostic and therapy the colonoscopy ration did have a good bowel movement. Patient's abdomen is soft is still having sluggish bowel sounds area at patient denied any fever chills nausea vomiting abdominal pain at this time. Patient does have bilateral leg ulcers for which patient will receive local wound care and the infectious disease was consulted regarding this patient does have significant weakness which is chronic in both legs and atrophy of both lower limb muscles. Patient is chronically bedbound uses wheelchair and a prison resident. 08/19/2018 No overnight events patient did not move her bowels name patient will undergo therapeutic colonoscopy today was probably 08/20/2018 Patient's abdomen is relatively much softer now had a big bowel movement last night. Abdominal x-ray will be obtained tomorrow depending on that decision regarding colonoscopy will be made tomorrow Constitutional: Denied any fatigue denied any fever. Cardio vascular: denied any chest pain, palpitations Gastrointestinal denied any nausea vomiting Pulmonary: Denied any shortness of breath cough Neurologic denied any new focal deficits All inpatient medications were reviewed and appropriate changes in these medications as dictated in the interval history and assessment and plan. Objective - Vital Signs Vital signs: Vital Signs Temp 98.2 F 08/20/18 15:00 Pulse 65 08/20/18 15:00 Resp 14 08/20/18 07:42 BP 169/72 08/20/18 15:00 Pulse Ox 98 08/20/18 15:00 Intake & Output 08/19/18 08/20/18 08/20/18 18:59 06:59 18:59 Intake Total 800 Output Total 1500 5300 1600 Balance -1500 -5300 -800 Intake: Oral 800 Output: Urine 1500 5300 1600 Other: Voiding Method Indwelling Catheter Indwelling Catheter - Exam PHYSICAL EXAMINATION: GENERAL: The patient is alert and oriented x3, not in any acute distress. Well developed, well nourished. HEENT: Pupils are round and equally reacting to light. EOMI. No scleral icterus. No conjunctival pallor. Normocephalic, atraumatic. No pharyngeal erythema. No thyromegaly. CARDIOVASCULAR: S1 and S2 present. No murmurs, rubs, or gallops. PULMONARY: Chest is clear to auscultation, no wheezing or crackles. ABDOMEN: Much softer than yesterday still be distended MUSCULOSKELETAL: No joint swelling or deformity. EXTREMITIES: No cyanosis, clubbing, or pedal edema. NEUROLOGICAL: Gross neurological examination did not reveal any new focal deficits. Chronic were both bilateral lower limb weakness SKIN: Patient has bilateral lower limb redness which is chronic venous stasis without any significant local is of temperature multiple stage I to 2 ulcerations in the legs for which patient will need local wound care. - Labs CBC & Chem 7: 08/20/18 07:28 08/20/18 07:28 Labs: Abnormal Lab Results - Last 24 Hours (Table) 08/19/18 08/19/18 08/19/18 Range/Units 12:14 17:29 20:56 RBC (3.80-5.40) m/uL Hgb (11.4-16.0) gm/dL Hct (34.0-46.0) % RDW (11.5-15.5) % Chloride (98-107) mmol/L Glucose (74-99) mg/dL POC Glucose (mg/dL) 143 H 106 H 151 H (75-99) mg/dL 08/20/18 08/20/18 08/20/18 Range/Units 07:13 07:28 07:28 RBC 3.17 L (3.80-5.40) m/uL Hgb 8.8 L (11.4-16.0) gm/dL Hct 28.2 L (34.0-46.0) % RDW 17.1 H (11.5-15.5) % Chloride 115 H (98-107) mmol/L Glucose 116 H (74-99) mg/dL POC Glucose (mg/dL) 125 H (75-99) mg/dL 08/20/18 08/20/18 Range/Units 11:32 17:32 RBC (3.80-5.40) m/uL Hgb (11.4-16.0) gm/dL Hct (34.0-46.0) % RDW (11.5-15.5) % Chloride (98-107) mmol/L Glucose (74-99) mg/dL POC Glucose (mg/dL) 130 H 130 H (75-99) mg/dL Microbiology - Last 24 Hours (Table) 08/18/18 01:45 Urine Culture - Final Urine,Catheterized Escherichia coli 08/17/18 23:00 Gram Stain - Preliminary Leg - Left Wound Culture - Preliminary Coagulase Negative Staph Assessment and Plan Plan: -Chronic absorption severe constipation: Patient on colonoscopy therapeutic. Patient's abdomen is soft repeat x-ray tomorrow -Type 2 diabetes mellitus hold off on 9 oral hypoglycemic agents patient will be started on sliding scale insulin -Hyperlipidemia -Hypertension: Patient is resumed on her home regimen monitor blood pressures -The lateral lower limb venous ulcerations: For which patient will require wound care was consulted regarding this -Fibromyalgia -History of DVT in the past not on anti-correlation at this time -History of SVT patient is presently sinus rhythm -Chronic venous stasis and the deconditioning chronic -Patient will need pharmacologic GI and DVT prophylaxis
[2018-08-20 20:08] LABS: Glucose,Whole Blood 218 mg/dL (75-99)
[2018-08-20] MEDS: ATORVASTATIN 40 MG TAB PO SCH (21:10)
--- NOTE | 2018-08-21 00:37 | PN ---
PROGRESS NOTE DATE OF SERVICE: 08/20/2018. REASON FOR FOLLOWUP: 1. E coli urinary tract infection. 2. Left leg wound. INTERVAL HISTORY: The patient is currently afebrile. She did complain of some abdominal pain. No further nausea or vomiting. No diarrhea. Denies any pain to the left leg. PHYSICAL EXAMINATION: Blood pressure is 169/72 with a pulse of 65, temperature 98.2, she is 98% on room air. GENERAL DESCRIPTION: An elderly female lying in bed in no distress. RESPIRATORY SYSTEM: Unlabored breathing. Clear to auscultation anteriorly. HEART: S1, S2. Regular rate and rhythm. Left leg is currently dressed up with no obvious drainage on the dressing. LABS: Hemoglobin 8.8, white count 4.2, BUN of 20, creatinine 0.65. Urine E coli sensitive to ciprofloxacin. DIAGNOSTIC IMPRESSION AND PLAN: 1. Patient with left leg. Local wound care to continue with Aquacel Silver dressing changed every 48 hours. 2. Eschericia coli urinary tract infection. Currently on short course of oral Cipro. Monitor clinical course closely. Continue supportive care. MMODL / IJN: [id number] /
[2018-08-21] MEDS ORDERED: ACETAMINOPHEN IV (For NPO) 1,000 MG in EMPTY BAG 1 BAG IVPB ONE (02:50)
[2018-08-21] MEDS: SODIUM CHLORIDE 0.9% 1,000 ML IV SCH ×2 (04:42→18:31)
[2018-08-21 07:01] LABS: Glucose,Whole Blood 127 mg/dL (75-99)
[2018-08-21] MEDS: LISINOPRIL 5 MG TAB PO SCH (08:09)
[2018-08-21] MEDS: SENNOSIDES 8.6 MG TAB PO SCH ×2 (08:09→21:03)
[2018-08-21] MEDS: OXYBUTYNIN 10 MG TAB.ER.24 PO SCH (08:09)
[2018-08-21] MEDS: MAGNESIUM OXIDE 400 MG TAB PO SCH ×2 (08:09→21:03)
[2018-08-21] MEDS: CIPROFLOXACIN HCL 500 MG TAB PO SCH ×2 (08:09→21:03)
[2018-08-21] MEDS: HEPARIN SODIUM,PORCINE 5,000 UNIT/ML 1 ML VIAL SQ SCH ×2 (08:10→21:03)
[2018-08-21] MEDS: PANTOPRAZOLE 40 MG/10 ML VIAL IVP SCH (08:10)
[2018-08-21] MEDS: INSULIN ASPART 100 UNIT/ML 1 ML 10 ML VIAL SQ SCH ×4 (08:13→21:32)
[2018-08-21] MEDS: IPRATROPIUM-ALBUTEROL 3 ML NEB INHALATION SCH ×4 (08:43→19:45)
[2018-08-21] MEDS: ACETAMINOPHEN IV (For NPO) 1,000 MG in EMPTY BAG 1 BAG IVPB SCH ×3 (10:29→23:09)
--- NOTE | 2018-08-21 11:40 | XR ---
EXAMINATION TYPE: XR abdomen complete w decub DATE OF EXAM: 08/21/2018 COMPARISON: 08/17/2018 HISTORY: Colonic ileus TECHNIQUE: Supine, upright, and left side down lateral decubitus views of the abdomen are obtained. FINDINGS: There is persistent dilated large and small bowel loops. There is particular dilation of th e sigmoid colon measuring 17.4 cm. Cannot exclude an obstruction or volvulus. Surgical clips in the right upper quadrant are seen. There is an IVC filter and intrauterine device. Postsurgical changes involving the pelvis. Hypertrophic and degenerative change of the spine. Diffuse osteopenia noted. Calcification the pelvis likely is vascular. IMPRESSION: Persistent marked distention of the colon with dilated small bowel loops. Particular dilation of the sigmoid colon is similar to the prior exam. Differential diagnosis continues to include colonic ileus , colonic obstruction or volvulus.
--- NOTE | 2018-08-21 11:47 | P.PN ---
Subjective Progress Note Date: 08/21/18 HISTORY OF PRESENT ILLNESS: 67-year-old female who is admitted for chronic colonic ileus. Patient reports she did have a bowel movement yesterday. She is on a full liquid diet. She states she refused her breakfast tray this morning because it did not have brown sugar on it. She does complain of some right lower quadrant pain. She states she is not passing flatus which she states has been normal for her and that she is having a bowel movement. PHYSICAL EXAM: VITAL SIGNS: Currently stable. GENERAL: Well-developed in no acute distress. HEENT: No sclera icterus. Extraocular movements grossly intact. Moist buccal mucosa. Head is atraumatic, normocephalic. Hears conversational speech. No nasal drainage. NECK: Supple without lymphadenopathy. CHEST: Non-labored respirations and equal bilateral excursions. CARDIOVASCULAR: Regular rate with regular rhythm. Palpable 2+ radial pulses. ABDOMEN: Soft. Mildly distended. Tenderness on palpation of right lower quadrant. MUSCULOSKELETAL: No clubbing, cyanosis or edema. NEUROLOGIC: No focal or lateralizing signs. Cranial nerves II through XII grossly intact. PSYCH: Appropriate affect. Alert and oriented to person, place and time. SKIN: Well perfused. Good skin turgor. ASSESSMENT: 1. Chronic colonic ileus PLAN: 1. Abdominal x-rays ordered. Await results. 2. Patient may require colostomy secondary to chronic colonic ileus. Possibly to be done on Tuesday. 3. Continue full liquid diet. 4. Soap suds enema 5. Further recommendations to follow Nurse practitioner note has been reviewed by physician. Signing provider agrees with the documented findings, assessment, and plan of care. Objective - Vital Signs Vital signs: Vital Signs Temp 98.3 F 08/21/18 00:56 Pulse 66 08/21/18 00:56 Resp 15 08/21/18 00:56 BP 160/70 08/21/18 00:56 Pulse Ox 98 08/21/18 00:56 Intake & Output 08/20/18 08/21/18 08/21/18 18:59 06:59 18:59 Intake Total 800 Output Total 1600 2000 Balance -800 -2000 Intake: Oral 800 Output: Urine 1600 2000 Other: Voiding Method Indwelling Catheter Indwelling Catheter Indwelling Catheter - Labs CBC & Chem 7: 08/20/18 07:28 08/20/18 07:28 Labs: Abnormal Lab Results - Last 24 Hours (Table) 08/20/18 08/20/18 08/20/18 Range/Units 11:32 17:32 19:57 POC Glucose (mg/dL) 130 H 130 H 218 H (75-99) mg/dL 08/21/18 Range/Units 06:50 POC Glucose (mg/dL) 127 H (75-99) mg/dL Microbiology - Last 24 Hours (Table) 08/17/18 23:00 Gram Stain - Final Leg - Left Wound Culture - Final Staphylococcus epidermidis 08/18/18 01:45 Urine Culture - Final Urine,Catheterized Escherichia coli
[2018-08-21 11:50] LABS: Glucose,Whole Blood 124 mg/dL (75-99)
--- NOTE | 2018-08-21 17:05 | P.PN ---
Subjective Progress Note Date: 08/21/18 59-year-old female with a known history of constipation in spite of daily bowel movements came in for the severe constipation: Neck obstruction patient underwent the diagnostic and therapy the colonoscopy ration did have a good bowel movement. Patient's abdomen is soft is still having sluggish bowel sounds area at patient denied any fever chills nausea vomiting abdominal pain at this time. Patient does have bilateral leg ulcers for which patient will receive local wound care and the infectious disease was consulted regarding this patient does have significant weakness which is chronic in both legs and atrophy of both lower limb muscles. Patient is chronically bedbound uses wheelchair and a group home resident. 08/19/2018 No overnight events patient did not move her bowels name patient will undergo therapeutic colonoscopy today was probably 08/20/2018 Patient's abdomen is relatively much softer now had a big bowel movement last night. Abdominal x-ray will be obtained tomorrow depending on that decision regarding colonoscopy will be made tomorrow 08/21/2018 patient just returning from abdominal x-ray. No bowel movement or flatus today. States she had a bowel movement yesterday. Declined her breakfast. Denies nausea or vomiting. Reporting some abdominal pain mostly in the right lower quadrant. Denies leg pain. Denies chest pain, palpitations or increasing shortness of breath. Afebrile. Maintained on antibiotics of Cipro as per infectious disease. Constitutional: Denied any fatigue denied any fever. Cardio vascular: denied any chest pain, palpitations Gastrointestinal denied any nausea vomiting;right lower quadrant abdominal pain Pulmonary: Denied any shortness of breath cough Neurologic denied any new focal deficits Active Medications Albuterol/Ipratropium (Duoneb 0.5 Mg-3 Mg/3 Ml Soln) 3 ml INHALATION RT-QID [facility] Last Admin: 08/21/18 16:08 Dose: Not Given Albuterol/Ipratropium (Duoneb 0.5 Mg-3 Mg/3 Ml Soln) 3 ml INHALATION RT-Q2H PRN PRN Reason: Shortness Of Breath Or Wheezing Atorvastatin Calcium (Lipitor) 40 mg PO HS [facility] Last Admin: 08/20/18 21:10 Dose: 40 mg Bisacodyl (Dulcolax) 10 mg RECTAL DAILY PRN PRN Reason: Constipation Ciprofloxacin (Cipro) 500 mg PO BID [facility] Last Admin: 08/21/18 08:09 Dose: 500 mg Heparin Sodium (Porcine) (Heparin) 5,000 unit SQ Q12HR [facility] Last Admin: 08/21/18 08:10 Dose: 5,000 unit Sodium Chloride (Saline 0.9%) 1,000 mls @ 75 mls/hr IV .[id number] [facility] Last Admin: 08/21/18 04:42 Dose: Not Given Acetaminophen 1,000 mg/ IV (Solution) 100 mls @ 400 mls/hr IVPB Q6H [facility] Stop: 08/22/18 05:14 Last Admin: 08/21/18 10:29 Dose: 400 mls/hr Insulin Aspart (Novolog) 0 unit SQ ACHS [facility]; Protocol Last Admin: 08/21/18 12:21 Dose: Not Given Lisinopril (Zestril) 5 mg PO DAILY [facility] Last Admin: 08/21/18 08:09 Dose: 5 mg Magnesium Oxide (Mag-Ox) 400 mg PO BID [facility] Last Admin: 08/21/18 08:09 Dose: 400 mg Naloxone HCl (Narcan) 0.2 mg IV Q2M PRN PRN Reason: Opioid Reversal Ondansetron HCl (Zofran) 4 mg IVP Q8HR PRN PRN Reason: Nausea And Vomiting Oxybutynin Chloride (Ditropan Xl) 10 mg PO DAILY [facility] Last Admin: 08/21/18 08:09 Dose: 10 mg Pantoprazole Sodium (Protonix) 40 mg IVP DAILY [facility] Last Admin: 08/21/18 08:10 Dose: 40 mg Polyethylene Glycol (Miralax) 17 gm PO HS PRN PRN Reason: Constipation Last Admin: 08/18/18 21:21 Dose: 17 gm Ropinirole HCl (Requip) 0.5 mg PO HS [facility] Last Admin: 08/20/18 21:09 Dose: 0.5 mg Senna (Senokot) 17.2 mg PO BID [facility] Last Admin: 08/21/18 08:09 Dose: 17.2 mg Objective - Vital Signs Vital signs: Vital Signs Temp 98.3 F 08/21/18 14:19 Pulse 51 L 08/21/18 14:19 Resp 15 08/21/18 00:56 BP 189/74 08/21/18 14:19 Pulse Ox 99 08/21/18 14:19 Intake & Output 01/08/21/18 08/21/18 18:59 06:59 18:59 Intake Total 800 600 Output Total 1600 2000 Balance -800 -1999 600 Intake: Intake, IV Titration 600 Amount Sodium Chloride 0.9% 1, 600 000 ml @ 75 mls/hr IV . [id number] [facility] Rx#:[id number] Oral 800 Output: Urine 1600 2000 Other: Voiding Method Indwelling Catheter Indwelling Catheter Indwelling Catheter # Bowel Movements 1 - Exam GENERAL: The patient is alert and oriented x3, not in any acute distress. Well developed, well nourished. HEENT: Pupils are round and equally reacting to light. EOMI. No scleral icterus. No conjunctival pallor. Normocephalic, atraumatic. No pharyngeal erythema. Oral mucosa moist CARDIOVASCULAR: S1 and S2 present. No murmurs, rubs, or gallops. PULMONARY: Chest is clear to auscultation, no wheezing or crackles. ABDOMEN: Soft, mildly distended diffuse abdominal tenderness, most pronounced in right lower quadrant, hypoactive BS MUSCULOSKELETAL: No joint swelling or deformity. EXTREMITIES: No cyanosis, clubbing, or pedal edema. NEUROLOGICAL: Gross neurological examination did not reveal any new focal deficits. Chronic bilateral lower limb weakness SKIN: Patient has bilateral lower limb redness, chronic venous stasis. Left leg dressing clean dry and intact. - Labs CBC & Chem 7: 08/20/18 07:28 08/20/18 07:28 Labs: Abnormal Lab Results - Last 24 Hours (Table) 08/20/18 08/20/18 08/21/18 Range/Units 17:32 19:57 06:50 POC Glucose (mg/dL) 130 H 218 H 127 H (75-99) mg/dL 08/21/18 Range/Units 11:39 POC Glucose (mg/dL) 124 H (75-99) mg/dL Microbiology - Last 24 Hours (Table) 08/17/18 23:00 Gram Stain - Final Leg - Left Wound Culture - Final Staphylococcus epidermidis Assessment and Plan Assessment: -Chronic colonic ileus -Type 2 diabetes mellitus -Acute UTI with E. coli -Hyperlipidemia -Hypertensio -bilateral lower limb venous ulcerations -Fibromyalgia -History of DVT in the past not on anti-correlation at this time -History of SVT patient is presently sinus rhythm -Chronic venous stasis and chronic deconditioning. Plan: Continue on current medication regime ,monitoring and symptomatic treatment. Patient just returning from abdominal x-ray; results pending. Follow closely with surgery. Antibiotics/wound care as per infectious disease. The impression and plan of care has been dictated as directed. : I performed a history and examination of this patient, discussed the same with the dictator. I agree with the dictator's note ,documented as a scribe. Any additional findings or plans will be noted.
[2018-08-21 17:22] LABS: Glucose,Whole Blood 124 mg/dL (75-99)
--- NOTE | 2018-08-21 20:35 | PN ---
PROGRESS NOTE DATE OF SERVICE: 08/21/2018 REASON FOR FOLLOWUP: 1. Left leg and thigh wound. 2. UTI. INTERVAL HISTORY: The patient is currently afebrile. She is breathing comfortably. She is still having some abdominal pain. Currently on a clear liquid diet. No nausea and no vomiting, though. Denies having any bowel movement. Denies left leg wound area. PHYSICAL EXAMINATION: Blood pressure is 162/70 with a pulse of 66, temperature 98.3. She is 98% on room air. General description is an elderly female lying in bed in no distress. RESPIRATORY SYSTEM: Unlabored breathing. Clear to auscultation anteriorly. HEART: S1, S2. Regular rate and rhythm. ABDOMEN: Soft. No tenderness. Left leg wound is currently dressed up. No obvious drainage on the dressing. LABS: No new labs have been obtained today. DIAGNOSTIC IMPRESSION AND PLAN: 1. Patient with a left leg wound with no cellulitis. Local wound care with Aquacel Silver dressing. 2. Escherichia coli urinary tract infection. Continue her course of oral Cipro. Continue with supportive care. MMODL / IJN: [id number] /
[2018-08-21] MEDS: ATORVASTATIN 40 MG TAB PO SCH (21:03)
[2018-08-21 21:13] LABS: Glucose,Whole Blood 122 mg/dL (75-99)
[2018-08-21] MEDS: amLODIPine 2.5 MG TAB PO SCH (21:33)
[2018-08-22] MEDS: ACETAMINOPHEN IV (For NPO) 1,000 MG in EMPTY BAG 1 BAG IVPB SCH (05:54)
[2018-08-22 07:27] LABS: Glucose,Whole Blood 103 mg/dL (75-99)
[2018-08-22 07:37] LABS: Anion Gap 7 mmol/L; Blood Urea Nitrogen 11 mg/dL (7-17); Calcium 8.9 mg/dL (8.4-10.2); Carbon Dioxide 20 mmol/L (22-30); Chloride 112 mmol/L (98-107); Glucose 99 mg/dL (74-99); Potassium 3.9 mmol/L (3.5-5.1); Sodium 139 mmol/L (137-145)
[2018-08-22] MEDS: IPRATROPIUM-ALBUTEROL 3 ML NEB INHALATION SCH ×4 (07:48→20:27)
[2018-08-22 07:50] LABS: Anisocytosis Slight; Basophils % (A) 1 %; Eosinophils # (A) 0.3 k/uL (0-0.7); Eosinophils % (A) 7 %; HGB 9.2 gm/dL (11.4-16.0); Hypochromasia Moderate; Lymphocytes # (A) 1.7 k/uL (1.0-4.8); Lymphocytes % (A) 38 %; MCH 27.3 pg (25.0-35.0); MCHC 30.8 g/dL (31.0-37.0); MCV 88.7 fL (80.0-100.0); Mean Platelet Volume 6.4; Monocytes # (A) 0.3 k/uL (0-1.0); Monocytes % (A) 6 %; Neutrophils # (A) 1.9 k/uL (1.3-7.7); Neutrophils % (A) 45 %; Platelet Count 254 k/uL (150-450); RBC 3.38 m/uL (3.80-5.40); RDW 17.2 % (11.5-15.5); WBC 4.4 k/uL (3.8-10.6)
[2018-08-22] MEDS: INSULIN ASPART 100 UNIT/ML 1 ML 10 ML VIAL SQ SCH ×4 (10:09→21:30)
[2018-08-22] MEDS: LISINOPRIL 5 MG TAB PO SCH (10:13)
[2018-08-22] MEDS: PANTOPRAZOLE 40 MG/10 ML VIAL IVP SCH (10:13)
[2018-08-22] MEDS: SENNOSIDES 8.6 MG TAB PO SCH ×2 (10:13→21:39)
[2018-08-22] MEDS: HEPARIN SODIUM,PORCINE 5,000 UNIT/ML 1 ML VIAL SQ SCH ×2 (10:13→21:38)
[2018-08-22] MEDS: MAGNESIUM OXIDE 400 MG TAB PO SCH ×2 (10:13→21:38)
[2018-08-22] MEDS: amLODIPine 2.5 MG TAB PO SCH (10:13)
[2018-08-22] MEDS: OXYBUTYNIN 10 MG TAB.ER.24 PO SCH (10:14)
[2018-08-22] MEDS: CIPROFLOXACIN HCL 500 MG TAB PO SCH ×2 (10:14→21:38)
--- NOTE | 2018-08-22 12:07 | P.PN ---
Subjective Progress Note Date: 08/22/18 HISTORY OF PRESENT ILLNESS: 67-year-old female who is admitted for chronic colonic ileus. Patient examined at the bedside. Patient received soapsuds enema yesterday. She has been having loose bowel movements since. She continues to complain of intermittent abdominal pain. She did eat some oatmeal this morning. PHYSICAL EXAM: VITAL SIGNS: Currently stable. GENERAL: Well-developed in no acute distress. HEENT: No sclera icterus. Extraocular movements grossly intact. Moist buccal mucosa. Head is atraumatic, normocephalic. Hears conversational speech. No nasal drainage. NECK: Supple without lymphadenopathy. CHEST: Non-labored respirations and equal bilateral excursions. CARDIOVASCULAR: Regular rate with regular rhythm. Palpable 2+ radial pulses. ABDOMEN: Soft. Mildly distended. Tenderness on palpation of right lower quadrant. MUSCULOSKELETAL: No clubbing, cyanosis or edema. NEUROLOGIC: No focal or lateralizing signs. Cranial nerves II through XII grossly intact. PSYCH: Appropriate affect. Alert and oriented to person, place and time. SKIN: Well perfused. Good skin turgor. ASSESSMENT: 1. Chronic colonic ileus PLAN: Discussion was held at the bedside with patient regarding chronic colonic ileus. Patient is agreeable to colostomy. Patient will be scheduled for colostomy tomorrow with Dr. Goel. NPO after midnight. Nurse practitioner note has been reviewed by physician. Signing provider agrees with the documented findings, assessment, and plan of care. Objective - Vital Signs Vital signs: Vital Signs Temp 97.8 F 08/22/18 10:13 Pulse 76 08/22/18 10:13 Resp 16 08/22/18 10:13 BP 159/72 08/22/18 10:13 Pulse Ox 97 08/22/18 10:13 Intake & Output 08/21/18 08/22/18 08/22/18 18:59 06:59 18:59 Intake Total 600 875 Output Total 1500 Balance 600 -625 Intake: Intake, IV Titration 600 875 Amount ACETAMINOPHEN IV (For NPO 500 ) 1,000 mg In Empty Bag 1 bag @ 400 mls/hr IVPB Q6H [facility] Rx#:[id number] Sodium Chloride 0.9% 1, 600 375 000 ml @ 75 mls/hr IV . [id number] [facility] Rx#:[id number] Output: Urine 1500 Other: Voiding Method Indwelling Catheter Indwelling Catheter Indwelling Catheter # Bowel Movements 1 - Labs CBC & Chem 7: 08/22/18 06:29 08/22/18 06:29 Labs: Abnormal Lab Results - Last 24 Hours (Table) 08/21/18 08/21/18 08/22/18 Range/Units 17:10 21:12 06:29 RBC 3.38 L (3.80-5.40) m/uL Hgb 9.2 L (11.4-16.0) gm/dL Hct 30.0 L (34.0-46.0) % MCHC 30.8 L (31.0-37.0) g/dL RDW 17.2 H (11.5-15.5) % Chloride (98-107) mmol/L Carbon Dioxide (22-30) mmol/L POC Glucose (mg/dL) 124 H 122 H (75-99) mg/dL 08/22/18 08/22/18 Range/Units 06:29 07:15 RBC (3.80-5.40) m/uL Hgb (11.4-16.0) gm/dL Hct (34.0-46.0) % MCHC (31.0-37.0) g/dL RDW (11.5-15.5) % Chloride 112 H (98-107) mmol/L Carbon Dioxide 20 L (22-30) mmol/L POC Glucose (mg/dL) 103 H (75-99) mg/dL
[2018-08-22 12:13] LABS: Glucose,Whole Blood 103 mg/dL (75-99)
[2018-08-22] MEDS: ACETAMINOPHEN TAB 325 MG TAB PO PRN ×2 (12:38→21:39)
[2018-08-22 17:22] LABS: Glucose,Whole Blood 149 mg/dL (75-99)
[2018-08-22] MEDS: SODIUM CHLORIDE 0.9% 1,000 ML IV SCH ×2 (18:20→21:44)
--- NOTE | 2018-08-22 19:15 | P.PN ---
Subjective Progress Note Date: 08/22/18 59-year-old female with a known history of constipation in spite of daily bowel movements came in for the severe constipation: Neck obstruction patient underwent the diagnostic and therapy the colonoscopy ration did have a good bowel movement. Patient's abdomen is soft is still having sluggish bowel sounds area at patient denied any fever chills nausea vomiting abdominal pain at this time. Patient does have bilateral leg ulcers for which patient will receive local wound care and the infectious disease was consulted regarding this patient does have significant weakness which is chronic in both legs and atrophy of both lower limb muscles. Patient is chronically bedbound uses wheelchair and a long term resident. 08/19/2018 No overnight events patient did not move her bowels name patient will undergo therapeutic colonoscopy today was probably 08/20/2018 Patient's abdomen is relatively much softer now had a big bowel movement last night. Abdominal x-ray will be obtained tomorrow depending on that decision regarding colonoscopy will be made tomorrow 08/21/2018 patient just returning from abdominal x-ray. No bowel movement or flatus today. States she had a bowel movement yesterday. Declined her breakfast. Denies nausea or vomiting. Reporting some abdominal pain mostly in the right lower quadrant. Denies leg pain. Denies chest pain, palpitations or increasing shortness of breath. Afebrile. Maintained on antibiotics of Cipro as per infectious disease. 08/22/2018 abdominal x-ray yesterday reported persistent marked distention of the colon with dilated small bowel loops, particular dilation of the sigmoid colon similar to prior exam, colonic ileus, colonic obstruction or volvulus. Soapsuds enema administered yesterday, reports large bowel movement today. Patient is scheduled for colostomy tomorrow. Afebrile Constitutional: Denied any fatigue denied any fever. Cardio vascular: denied any chest pain, palpitations Gastrointestinal denied any nausea vomiting;right lower quadrant abdominal pain Pulmonary: Denied any shortness of breath cough Neurologic denied any new focal deficits Active Medications Acetaminophen (Tylenol Tab) 650 mg PO Q4HR PRN PRN Reason: Fever and/ or Pain Last Admin: 08/22/18 12:38 Dose: 650 mg Albuterol/Ipratropium (Duoneb 0.5 Mg-3 Mg/3 Ml Soln) 3 ml INHALATION RT-QID [facility] Last Admin: 08/22/18 17:02 Dose: Not Given Albuterol/Ipratropium (Duoneb 0.5 Mg-3 Mg/3 Ml Soln) 3 ml INHALATION RT-Q2H PRN PRN Reason: Shortness Of Breath Or Wheezing Amlodipine Besylate (Norvasc) 2.5 mg PO DAILY [facility] Last Admin: 08/22/18 10:13 Dose: 2.5 mg Atorvastatin Calcium (Lipitor) 40 mg PO HS [facility] Last Admin: 08/21/18 21:03 Dose: 40 mg Bisacodyl (Dulcolax) 10 mg RECTAL DAILY PRN PRN Reason: Constipation Ciprofloxacin (Cipro) 500 mg PO BID [facility] Last Admin: 08/22/18 10:14 Dose: 500 mg Heparin Sodium (Porcine) (Heparin) 5,000 unit SQ Q12HR [facility] Last Admin: 08/22/18 10:13 Dose: 5,000 unit Sodium Chloride (Saline 0.9%) 1,000 mls @ 75 mls/hr IV .[id number] [facility] Last Admin: 08/22/18 18:20 Dose: 75 mls/hr Insulin Aspart (Novolog) 0 unit SQ ACHS [facility]; Protocol Last Admin: 08/22/18 17:44 Dose: Not Given Lisinopril (Zestril) 5 mg PO DAILY [facility] Last Admin: 08/22/18 10:13 Dose: 5 mg Magnesium Oxide (Mag-Ox) 400 mg PO BID [facility] Last Admin: 08/22/18 10:13 Dose: 400 mg Naloxone HCl (Narcan) 0.2 mg IV Q2M PRN PRN Reason: Opioid Reversal Ondansetron HCl (Zofran) 4 mg IVP Q8HR PRN PRN Reason: Nausea And Vomiting Oxybutynin Chloride (Ditropan Xl) 10 mg PO DAILY [facility] Last Admin: 08/22/18 10:14 Dose: 10 mg Pantoprazole Sodium (Protonix) 40 mg IVP DAILY [facility] Last Admin: 08/22/18 10:13 Dose: 40 mg Polyethylene Glycol (Miralax) 17 gm PO HS PRN PRN Reason: Constipation Last Admin: 08/18/18 21:21 Dose: 17 gm Ropinirole HCl (Requip) 0.5 mg PO HS [facility] Last Admin: 08/21/18 21:03 Dose: 0.5 mg Senna (Senokot) 17.2 mg PO BID [facility] Last Admin: 08/22/18 10:13 Dose: 17.2 mg Objective - Vital Signs Vital signs: Vital Signs Temp 98.6 F 08/22/18 15:00 Pulse 76 08/22/18 16:00 Resp 16 08/22/18 16:00 BP 156/69 08/22/18 15:00 Pulse Ox 99 08/22/18 15:00 Intake & Output 08/22/18 08/22/18 08/23/18 06:59 18:59 06:59 Intake Total 875 Output Total 1500 1602 Balance -625 -1602 Intake: Intake, IV Titration 875 Amount ACETAMINOPHEN IV (For NPO 500 ) 1,000 mg In Empty Bag 1 bag @ 400 mls/hr IVPB Q6H [facility] Rx#:[id number] Sodium Chloride 0.9% 1, 375 000 ml @ 75 mls/hr IV . [id number] [facility] Rx#:[id number] Output: Urine 1500 1600 Stool 2 Other: Voiding Method Indwelling Catheter Indwelling Catheter - Exam GENERAL: The patient is alert and oriented x3, not in any acute distress. Well developed, well nourished. HEENT: Pupils are round and equally reacting to light. EOMI. No scleral icterus. No conjunctival pallor. Normocephalic, atraumatic. CARDIOVASCULAR: S1 and S2 present. No murmurs, rubs, or gallops. PULMONARY: Chest is clear to auscultation, no wheezing or crackles. ABDOMEN: Soft, mildly distended diffuse abdominal tenderness, most pronounced in right lower quadrant, hypoactive BS EXTREMITIES: No cyanosis, clubbing, or pedal edema. NEUROLOGICAL: Gross neurological examination did not reveal any new focal deficits. Chronic bilateral lower limb weakness SKIN: Patient has bilateral lower limb redness, chronic venous stasis. Left leg dressings clean dry and intact. Microbiology 08/17/18 23:00 Leg - Left Gram Stain - Final 08/17/18 23:00 Leg - Left Wound Culture - Final Staphylococcus epidermidis 08/18/18 01:45 Urine,Catheterized Urine Culture - Final Escherichia coli - Labs CBC & Chem 7: 08/22/18 06:29 08/22/18 06:29 Labs: Abnormal Lab Results - Last 24 Hours (Table) 08/21/18 08/22/18 08/22/18 Range/Units 21:12 06:29 06:29 RBC 3.38 L (3.80-5.40) m/uL Hgb 9.2 L (11.4-16.0) gm/dL Hct 30.0 L (34.0-46.0) % MCHC 30.8 L (31.0-37.0) g/dL RDW 17.2 H (11.5-15.5) % Chloride 112 H (98-107) mmol/L Carbon Dioxide 20 L (22-30) mmol/L POC Glucose (mg/dL) 122 H (75-99) mg/dL 08/22/18 08/22/18 08/22/18 Range/Units 07:15 12:02 17:11 RBC (3.80-5.40) m/uL Hgb (11.4-16.0) gm/dL Hct (34.0-46.0) % MCHC (31.0-37.0) g/dL RDW (11.5-15.5) % Chloride (98-107) mmol/L Carbon Dioxide (22-30) mmol/L POC Glucose (mg/dL) 103 H 103 H 149 H (75-99) mg/dL Assessment and Plan Assessment: -Chronic colonic ileus -Type 2 diabetes mellitus -Acute UTI with E. coli -Hyperlipidemia -Hypertensio -bilateral lower limb venous ulcerations -Fibromyalgia -History of DVT in the past not on anti-correlation at this time -History of SVT patient is presently sinus rhythm -Chronic venous stasis and chronic deconditioning. Plan: Continue on current medication regime ,monitoring and symptomatic treatment. Scheduled for colostomy tomorrow. Follow closely with surgery. Antibiotics/wound care as per infectious disease. The impression and plan of care has been dictated as directed. : I performed a history and examination of this patient, discussed the same with the dictator. I agree with the dictator's note ,documented as a scribe. Any additional findings or plans will be noted.
[2018-08-22 20:55] LABS: Glucose,Whole Blood 113 mg/dL (75-99)
[2018-08-22] MEDS: ATORVASTATIN 40 MG TAB PO SCH (21:38)
--- NOTE | 2018-08-23 06:00 | PN ---
PROGRESS NOTE DATE OF SERVICE: 08/22/2018 REASON FOR FOLLOWUP: 1. Left leg thigh wound. 2. E coli UTI. INTERVAL HISTORY: The patient is currently afebrile. She is breathing comfortably. Denies having any chest pain. No shortness of breath or cough. No abdominal pain. No nausea or vomiting. Denies any pain to the left leg area. PHYSICAL EXAMINATION: On examination, blood pressure is 156/69 with a pulse of 77, temperature 98.6. She is 99% on room air. General description is an elderly female lying in bed in no distress. RESPIRATORY SYSTEM: Unlabored breathing, clear to auscultation anteriorly HEART: S1, S2. Regular rate and rhythm. ABDOMEN: Soft, no tenderness. Left leg wound currently with no evidence of any cellulitis. LABS: Hemoglobin 9.2, white count 4.4, BUN of 11, creatinine 0.73. DIAGNOSTIC IMPRESSION AND PLAN: 1. Patient with left thigh leg wound. To continue wound care with Aquacel dressing antibiotic therapy positive culture with Staphylococcus epidermidis, likely a skin beto. 2. The patient with Escherichia coli urinary tract infection, currently on Cipro to continue to finish a 5 to 7 day course of therapy. Continue supportive care. MMODL / IJN: [id number] /
[2018-08-23 06:45] LABS: Anisocytosis Slight; Basophils % (A) 1 %; Eosinophils # (A) 0.3 k/uL (0-0.7); Eosinophils % (A) 8 %; HCT 27.4 % (34.0-46.0); HGB 8.5 gm/dL (11.4-16.0); Hypochromasia Moderate; Lymphocytes # (A) 1.6 k/uL (1.0-4.8); Lymphocytes % (A) 38 %; MCH 27.5 pg (25.0-35.0); MCHC 31.2 g/dL (31.0-37.0); MCV 88.2 fL (80.0-100.0); Mean Platelet Volume 6.5; Monocytes # (A) 0.3 k/uL (0-1.0); Monocytes % (A) 7 %; Neutrophils # (A) 1.8 k/uL (1.3-7.7); Neutrophils % (A) 43 %; Platelet Count 222 k/uL (150-450); RBC 3.11 m/uL (3.80-5.40); RDW 17.5 % (11.5-15.5); WBC 4.2 k/uL (3.8-10.6)
[2018-08-23 06:57] LABS: ALT 36 U/L (9-52); AST 21 U/L (14-36); Albumin 2.6 g/dL (3.5-5.0); Alkaline Phosphatase 131 U/L (38-126); Anion Gap 5 mmol/L; Blood Urea Nitrogen 10 mg/dL (7-17); Calcium 8.8 mg/dL (8.4-10.2); Carbon Dioxide 22 mmol/L (22-30); Chloride 115 mmol/L (98-107); Glucose 121 mg/dL (74-99); Potassium 4.1 mmol/L (3.5-5.1); Sodium 142 mmol/L (137-145); Total Bilirubin 0.4 mg/dL (0.2-1.3); Total Protein 5.9 g/dL (6.3-8.2)
[2018-08-23 07:24] LABS: Glucose,Whole Blood 123 mg/dL (75-99)
[2018-08-23] MEDS: INSULIN ASPART 100 UNIT/ML 1 ML 10 ML VIAL SQ SCH ×4 (07:56→22:45)
[2018-08-23] MEDS: SODIUM CHLORIDE 0.9% 1,000 ML IV SCH (08:53)
[2018-08-23] MEDS: OXYBUTYNIN 10 MG TAB.ER.24 PO SCH (08:54)
[2018-08-23] MEDS: amLODIPine 2.5 MG TAB PO SCH (08:54)
[2018-08-23] MEDS: PANTOPRAZOLE 40 MG/10 ML VIAL IVP SCH (08:54)
[2018-08-23] MEDS: CIPROFLOXACIN HCL 500 MG TAB PO SCH ×2 (08:54→22:52)
[2018-08-23] MEDS: LISINOPRIL 5 MG TAB PO SCH (08:54)
[2018-08-23] MEDS: SENNOSIDES 8.6 MG TAB PO SCH ×2 (08:55→22:44)
[2018-08-23] MEDS: HEPARIN SODIUM,PORCINE 5,000 UNIT/ML 1 ML VIAL SQ SCH ×3 (08:55→22:49)
[2018-08-23] MEDS: MAGNESIUM OXIDE 400 MG TAB PO SCH ×3 (08:55→22:53)
[2018-08-23] MEDS: IPRATROPIUM-ALBUTEROL 3 ML NEB INHALATION SCH ×4 (10:00→20:37)
--- NOTE | 2018-08-23 10:44 | P.PN ---
<Bailey Fuentes Desirae - Last Filed: 08/23/18 10:44> Subjective Progress Note Date: 08/23/18 HISTORY OF PRESENT ILLNESS: 67-year-old female who is admitted for chronic colonic ileus. Patient examined at the bedside. Patient states she feels about the same as yesterday. She is nothing by mouth. Scheduled for colostomy today. PHYSICAL EXAM: VITAL SIGNS: Currently stable. GENERAL: Well-developed in no acute distress. HEENT: No sclera icterus. Extraocular movements grossly intact. Moist buccal mucosa. Head is atraumatic, normocephalic. Hears conversational speech. No nasal drainage. NECK: Supple without lymphadenopathy. CHEST: Non-labored respirations and equal bilateral excursions. CARDIOVASCULAR: Regular rate with regular rhythm. Palpable 2+ radial pulses. ABDOMEN: Soft. Mildly distended. Tenderness on palpation of right lower quadrant. MUSCULOSKELETAL: No clubbing, cyanosis or edema. NEUROLOGIC: No focal or lateralizing signs. Cranial nerves II through XII grossly intact. PSYCH: Appropriate affect. Alert and oriented to person, place and time. SKIN: Well perfused. Good skin turgor. ASSESSMENT: 1. Chronic colonic ileus PLAN: Patient to undergo colostomy today per Dr. Goel Nurse practitioner note has been reviewed by physician. Signing provider agrees with the documented findings, assessment, and plan of care. Objective - Vital Signs Vital signs: Vital Signs Temp 98.6 F 08/23/18 01:00 Pulse 71 08/23/18 01:00 Resp 16 08/23/18 01:00 BP 172/91 08/23/18 01:00 Pulse Ox 97 08/23/18 01:00 Intake & Output 08/22/18 08/23/18 08/23/18 18:59 06:59 18:59 Intake Total 790 Output Total 1602 5600 Balance -1602 -2110 Intake: Intake, IV Titration 790 Amount Sodium Chloride 0.9% 1, 190 000 ml @ 75 mls/hr IV . [id number] [facility] Rx#:[id number] Sodium Chloride 0.9% 500 600 ml @ 0 mls/hr IV [facility] Rx#:[id number] Output: Urine 1600 5600 Uretheral (Coffey) 2800 Stool 2 Other: Voiding Method Indwelling Catheter Indwelling Catheter - Labs CBC & Chem 7: 08/23/18 06:24 08/23/18 06:24 Labs: Abnormal Lab Results - Last 24 Hours (Table) 08/22/18 08/22/18 08/22/18 Range/Units 12:02 17:11 20:44 RBC (3.80-5.40) m/uL Hgb (11.4-16.0) gm/dL Hct (34.0-46.0) % RDW (11.5-15.5) % Chloride (98-107) mmol/L Glucose (74-99) mg/dL POC Glucose (mg/dL) 103 H 149 H 113 H (75-99) mg/dL Alkaline Phosphatase (38-126) U/L Total Protein (6.3-8.2) g/dL Albumin (3.5-5.0) g/dL 08/23/18 08/23/18 08/23/18 Range/Units 06:24 06:24 07:13 RBC 3.11 L (3.80-5.40) m/uL Hgb 8.5 L (11.4-16.0) gm/dL Hct 27.4 L (34.0-46.0) % RDW 17.5 H (11.5-15.5) % Chloride 115 H (98-107) mmol/L Glucose 121 H (74-99) mg/dL POC Glucose (mg/dL) 123 H (75-99) mg/dL Alkaline Phosphatase 131 H (38-126) U/L Total Protein 5.9 L (6.3-8.2) g/dL Albumin 2.6 L (3.5-5.0) g/dL <Tavo Goel - Last Filed: 08/23/18 12:42> Objective - Vital Signs Vital signs: Vital Signs Temp 99.5 F 08/23/18 12:13 Pulse 71 08/23/18 12:13 Resp 16 08/23/18 08:53 BP 164/74 08/23/18 12:13 Pulse Ox 99 08/23/18 07:00 Intake & Output 08/22/18 08/23/18 08/23/18 18:59 06:59 18:59 Intake Total 790 Output Total 5702 4730 Balance -5378 -6533 Intake: Intake, IV Titration 790 Amount Sodium Chloride 0.9% 1, 190 000 ml @ 75 mls/hr IV . [id number] [facility] Rx#:[id number] Sodium Chloride 0.9% 500 600 ml @ 0 mls/hr IV .ST[facility] Rx#:[id number] Output: Urine 1600 5600 Uretheral (Coffey) 2800 Stool 2 Other: Voiding Method Indwelling Catheter Indwelling Catheter Indwelling Catheter - Labs CBC & Chem 7: 08/23/18 06:24 08/23/18 06:24 Labs: Abnormal Lab Results - Last 24 Hours (Table) 08/22/18 08/22/18 08/23/18 Range/Units 17:11 20:44 06:24 RBC 3.11 L (3.80-5.40) m/uL Hgb 8.5 L (11.4-16.0) gm/dL Hct 27.4 L (34.0-46.0) % RDW 17.5 H (11.5-15.5) % Chloride (98-107) mmol/L Glucose (74-99) mg/dL POC Glucose (mg/dL) 149 H 113 H (75-99) mg/dL Alkaline Phosphatase (38-126) U/L Total Protein (6.3-8.2) g/dL Albumin (3.5-5.0) g/dL 08/23/18 08/23/18 08/23/18 Range/Units 06:24 07:13 11:33 RBC (3.80-5.40) m/uL Hgb (11.4-16.0) gm/dL Hct (34.0-46.0) % RDW (11.5-15.5) % Chloride 115 H (98-107) mmol/L Glucose 121 H (74-99) mg/dL POC Glucose (mg/dL) 123 H 127 H (75-99) mg/dL Alkaline Phosphatase 131 H (38-126) U/L Total Protein 5.9 L (6.3-8.2) g/dL Albumin 2.6 L (3.5-5.0) g/dL
[2018-08-23 11:45] LABS: Glucose,Whole Blood 127 mg/dL (75-99)
[2018-08-23] MEDS ORDERED: IV FLUID CONTINUATION 1,000 ML IV ONE (12:10)
[2018-08-23] MEDS ORDERED: HEPARIN SODIUM,PORCINE 5,000 UNIT/ML 1 ML VIAL SQ ONE (13:12)
[2018-08-23] MEDS ORDERED: diphenhydrAMINE 50 MG/ML 1 ML VIAL IVP PRN (13:14)
[2018-08-23] MEDS ORDERED: NALOXONE 0.4 MG/ML 1 ML VIAL IV PRN ×2 (13:14→15:02)
[2018-08-23] MEDS ORDERED: NALBUPHINE 10 MG/ML (1 ML AMP) IV PRN (13:14)
[2018-08-23] MEDS ORDERED: PROPOFOL 10 MG/ML 20 ML VIAL IV ONE (13:22)
[2018-08-23] MEDS ORDERED: fentaNYL (PF) 50 MCG/ML 2 ML AMP ONE (13:22)
[2018-08-23] MEDS ORDERED: GLYCOPYRROLATE 0.2 MG/ML 2 ML VIAL ONE (13:22)
[2018-08-23] MEDS ORDERED: MIDAZOLAM 2 MG/2 ML VIAL ONE (13:22)
[2018-08-23] MEDS ORDERED: NEOSTIGMINE 1 MG/ML 10 ML VIAL ONE (13:22)
[2018-08-23] MEDS ORDERED: LIDOCAINE 1% INJ 10MG/ML (20 ML MDV) ONE (13:22)
[2018-08-23] MEDS ORDERED: ROCURONIUM BROMIDE 10 MG/ML 10 ML VIAL IV ONE (13:22)
[2018-08-23] MEDS ORDERED: KETAMINE 10 MG/ML 20 ML VIAL ONE (13:22)
[2018-08-23] MEDS ORDERED: PHENYLEPHRINE-0.9% NACL SYG 1 MG/10 ML SYRINGE ONE (13:22)
[2018-08-23] MEDS ORDERED: LACTATED RINGERS 1,000 ML IV ONE ×3 (14:05→16:47)
[2018-08-23] MEDS ORDERED: ONDANSETRON 4 MG/2 ML VIAL IVP PRN (15:02)
--- NOTE | 2018-08-23 15:09 | P.OP ---
Date of Procedure: 08/23/18 Preoperative Diagnosis: Obstructing megacolon Postoperative Diagnosis: Megacolon Procedure(s) Performed: Subtotal colectomy Anesthesia: CHERRY Surgeon: Tavo Goel Estimated Blood Loss (ml): 20 Pathology: other (Subtotal colon) Description of Procedure: Patient's placed on the operating table in the supine position. She received general anesthesia. Her abdomen was prepped and draped in usual sterile fashion. The abdomen was entered through a midline incision. Showed a previous midline laparotomy scar. Upon entering the abdomen the Bookwalter tract placed a wound. And then the colon was observed. The colon was massively dilated in the rectum sigmoid colon descending colon and transverse colon. It was decided to perform a modified subtotal colectomy. The proximal transverse colon was divided and then using the GI stapler the mesentery the bowel was divided. The splenic flexure taken down with Enseal device. The left colon and sigmoid colon mesentery was divided with the Enseal device and then the rectosigmoid junction was transected with the GI stapler. The proximal transverse colon was brought out as a colostomy on the left upper quadrant. The abdomen was irrigated there is no bleeding seen. The fascia was closed with looped #1 PDS suture. Skin was closed natanael. The colostomy then matured with 3-0 Vicryl. Patient top she will was sent to recovery in stable condition.
[2018-08-23] MEDS: ROPIVACAINE 400 MG, HYDROMORPHONE (PF) 5 MG in SODIUM CHLORIDE 0.9% 170 ML EPIDURAL PRN ×2 (15:45→16:38)
--- NOTE | 2018-08-23 16:54 | P.PN ---
Subjective Progress Note Date: 08/23/18 59-year-old female with a known history of constipation in spite of daily bowel movements came in for the severe constipation: Neck obstruction patient underwent the diagnostic and therapy the colonoscopy ration did have a good bowel movement. Patient's abdomen is soft is still having sluggish bowel sounds area at patient denied any fever chills nausea vomiting abdominal pain at this time. Patient does have bilateral leg ulcers for which patient will receive local wound care and the infectious disease was consulted regarding this patient does have significant weakness which is chronic in both legs and atrophy of both lower limb muscles. Patient is chronically bedbound uses wheelchair and a fpc resident. 08/19/2018 No overnight events patient did not move her bowels name patient will undergo therapeutic colonoscopy today was probably 08/20/2018 Patient's abdomen is relatively much softer now had a big bowel movement last night. Abdominal x-ray will be obtained tomorrow depending on that decision regarding colonoscopy will be made tomorrow 08/21/2018 patient just returning from abdominal x-ray. No bowel movement or flatus today. States she had a bowel movement yesterday. Declined her breakfast. Denies nausea or vomiting. Reporting some abdominal pain mostly in the right lower quadrant. Denies leg pain. Denies chest pain, palpitations or increasing shortness of breath. Afebrile. Maintained on antibiotics of Cipro as per infectious disease. 08/22/2018 abdominal x-ray yesterday reported persistent marked distention of the colon with dilated small bowel loops, particular dilation of the sigmoid colon similar to prior exam, colonic ileus, colonic obstruction or volvulus. Soapsuds enema administered yesterday, reports large bowel movement today. Patient is scheduled for colostomy tomorrow. Afebrile 08/23/2018 NPO, scheduled for colostomy today. T-max 99.5.CL 115, change IVs to D5/W. Constitutional: Denied any fatigue denied any fever. Cardio vascular: denied any chest pain, palpitations Gastrointestinal denied any nausea vomiting;right lower quadrant abdominal pain Pulmonary: Denied any shortness of breath cough Neurologic denied any new focal deficits Active Medications Acetaminophen (Tylenol Tab) 650 mg PO Q4HR PRN PRN Reason: Fever and/ or Pain Last Admin: 08/22/18 21:39 Dose: 650 mg Hydrocodone Bitart/Acetaminophen (Scott 5-325) 2 each PO Q6HR PRN PRN Reason: Moderate to Severe Pain Albuterol/Ipratropium (Duoneb 0.5 Mg-3 Mg/3 Ml Soln) 3 ml INHALATION RT-QID [facility] Last Admin: 08/23/18 16:01 Dose: Not Given Albuterol/Ipratropium (Duoneb 0.5 Mg-3 Mg/3 Ml Soln) 3 ml INHALATION RT-Q2H PRN PRN Reason: Shortness Of Breath Or Wheezing Amlodipine Besylate (Norvasc) 2.5 mg PO DAILY [facility] Last Admin: 08/23/18 08:54 Dose: 2.5 mg Atorvastatin Calcium (Lipitor) 40 mg PO HS [facility] Last Admin: 08/22/18 21:38 Dose: 40 mg Bisacodyl (Dulcolax) 10 mg RECTAL DAILY PRN PRN Reason: Constipation Ciprofloxacin (Cipro) 500 mg PO BID [facility] Last Admin: 08/23/18 08:54 Dose: 500 mg Diphenhydramine HCl (Benadryl) 25 mg IVP Q6HR PRN PRN Reason: Itching Last Admin: 08/23/18 15:55 Dose: 25 mg Heparin Sodium (Porcine) (Heparin) 5,000 unit SQ Q12HR [facility] Last Admin: 08/23/18 08:55 Dose: Not Given Heparin Sodium (Porcine) (Heparin) 5,000 unit SQ Q8HR [facility] Hydromorphone HCl (Dilaudid) 0.5 mg IVP Q3HR PRN PRN Reason: Moderate to Severe Pain Ropivacaine 400 mg/Hydromorphone HCl 5 mg/ Sodium Chloride 250 mls @ 0 mls/hr EPIDURAL .Q0M PRN; Protocol PRN Reason: Pain Control Last Admin: 08/23/18 16:38 Dose: 12.5 mls Lactated Ringer's (Lactated Ringers) 1,000 mls @ 125 mls/hr IV .Q8H ONE Stop: 08/23/18 23:01 Insulin Aspart (Novolog) 0 unit SQ ACHS [facility]; Protocol Last Admin: 08/23/18 12:00 Dose: Not Given Lisinopril (Zestril) 5 mg PO DAILY [facility] Last Admin: 08/23/18 08:54 Dose: 5 mg Magnesium Oxide (Mag-Ox) 400 mg PO BID [facility] Last Admin: 08/23/18 08:55 Dose: Not Given Nalbuphine HCl (Nubain) 2.5 mg IV Q4HR PRN PRN Reason: Itching Naloxone HCl (Narcan) 0.2 mg IV Q2M PRN PRN Reason: Opioid Reversal Naloxone HCl (Narcan) 0.2 mg IV Q2M PRN PRN Reason: Opioid Reversal Ondansetron HCl (Zofran) 4 mg IVP Q8HR PRN PRN Reason: Nausea And Vomiting Ondansetron HCl (Zofran) 4 mg IVP Q8HR PRN PRN Reason: Nausea And Vomiting Oxybutynin Chloride (Ditropan Xl) 10 mg PO DAILY [facility] Last Admin: 08/23/18 08:54 Dose: 10 mg Pantoprazole Sodium (Protonix) 40 mg IVP DAILY [facility] Last Admin: 08/23/18 08:54 Dose: 40 mg Polyethylene Glycol (Miralax) 17 gm PO HS PRN PRN Reason: Constipation Last Admin: 08/18/18 21:21 Dose: 17 gm Ropinirole HCl (Requip) 0.5 mg PO HS [facility] Last Admin: 08/22/18 21:38 Dose: 0.5 mg Senna (Senokot) 17.2 mg PO BID [facility] Last Admin: 08/23/18 08:55 Dose: Not Given Objective - Vital Signs Vital signs: Vital Signs Temp 98.4 F 08/23/18 15:07 Pulse 73 08/23/18 16:15 Resp 16 08/23/18 16:15 BP 151/82 08/23/18 16:15 Pulse Ox 100 08/23/18 16:15 Intake & Output 08/22/18 08/23/18 08/23/18 18:59 06:59 18:59 Intake Total 790 1912.5 Output Total 1602 5600 1950 Balance -1602 -4810 -37.5 Intake: IV 1912.5 Intake, IV Titration 790 Amount Sodium Chloride 0.9% 1, 190 000 ml @ 75 mls/hr IV . [id number] [facility] Rx#:[id number] Sodium Chloride 0.9% 500 600 ml @ 0 mls/hr IV .STK-MED ONE Rx#:[id number] Output: Urine 1600 5600 1850 Uretheral (Coffey) 2800 1300 Stool 2 Estimated Blood Loss 100 Other: Voiding Method Indwelling Catheter Indwelling Catheter Indwelling Catheter - Exam GENERAL: The patient is alert and oriented x3, not in any acute distress. Well developed, well nourished. HEENT: Pupils are round and equally reacting to light. EOMI. No scleral icterus. No conjunctival pallor. Normocephalic, atraumatic. CARDIOVASCULAR: S1 and S2 present. No murmurs, rubs, or gallops. PULMONARY: Chest is clear to auscultation, no wheezing or crackles. ABDOMEN: Soft, mildly distended diffuse abdominal tenderness, most pronounced in right lower quadrant, hypoactive BS EXTREMITIES: No cyanosis, clubbing, or pedal edema. NEUROLOGICAL: Gross neurological examination did not reveal any new focal deficits. Chronic bilateral lower limb weakness SKIN: Patient has bilateral lower limb redness, chronic venous stasis. Left leg dressings clean dry and intact. Microbiology 08/17/18 23:00 Leg - Left Gram Stain - Final 08/17/18 23:00 Leg - Left Wound Culture - Final Staphylococcus epidermidis 08/18/18 01:45 Urine,Catheterized Urine Culture - Final Escherichia coli - Labs CBC & Chem 7: 08/23/18 06:24 08/23/18 06:24 Labs: Abnormal Lab Results - Last 24 Hours (Table) 08/22/18 08/22/18 08/23/18 Range/Units 17:11 20:44 06:24 RBC 3.11 L (3.80-5.40) m/uL Hgb 8.5 L (11.4-16.0) gm/dL Hct 27.4 L (34.0-46.0) % RDW 17.5 H (11.5-15.5) % Chloride (98-107) mmol/L Glucose (74-99) mg/dL POC Glucose (mg/dL) 149 H 113 H (75-99) mg/dL Alkaline Phosphatase (38-126) U/L Total Protein (6.3-8.2) g/dL Albumin (3.5-5.0) g/dL 08/23/18 08/23/18 08/23/18 Range/Units 06:24 07:13 11:33 RBC (3.80-5.40) m/uL Hgb (11.4-16.0) gm/dL Hct (34.0-46.0) % RDW (11.5-15.5) % Chloride 115 H (98-107) mmol/L Glucose 121 H (74-99) mg/dL POC Glucose (mg/dL) 123 H 127 H (75-99) mg/dL Alkaline Phosphatase 131 H (38-126) U/L Total Protein 5.9 L (6.3-8.2) g/dL Albumin 2.6 L (3.5-5.0) g/dL Assessment and Plan Assessment: -Chronic colonic ileus -Type 2 diabetes mellitus -Acute UTI with E. coli -Hyperlipidemia -Hypertensio -bilateral lower limb venous ulcerations -Fibromyalgia -History of DVT in the past not on anti-correlation at this time -History of SVT patient is presently sinus rhythm -Chronic venous stasis and chronic deconditioning. -Hyperchloremia Plan: Continue on current medication regime ,monitoring and symptomatic treatment. Hyperchloremia, change IVs to D5W. Scheduled for colostomy. Follow closely with surgery. Antibiotics/wound care as per infectious disease. The impression and plan of care has been dictated as directed. : I performed a history and examination of this patient, discussed the same with the dictator. I agree with the dictator's note ,documented as a scribe. Any additional findings or plans will be noted.
[2018-08-23 17:33] LABS: Glucose,Whole Blood 158 mg/dL (75-99)
[2018-08-23 20:25] LABS: Glucose,Whole Blood 144 mg/dL (75-99)
[2018-08-23] MEDS: ATORVASTATIN 40 MG TAB PO SCH ×2 (22:43→22:54)
[2018-08-24] MEDS: HEPARIN SODIUM,PORCINE 5,000 UNIT/ML 1 ML VIAL SQ SCH ×4 (01:18→19:16)
[2018-08-24 07:18] LABS: Glucose,Whole Blood 141 mg/dL (75-99)
[2018-08-24 07:53] LABS: Anisocytosis Slight; Basophils % (A) 0 %; Eosinophils % (A) 0 %; HCT 33.4 % (34.0-46.0); Hypochromasia Moderate; Lymphocytes # (A) 1.8 k/uL (1.0-4.8); Lymphocytes % (A) 18 %; MCH 26.5 pg (25.0-35.0); MCV 88.3 fL (80.0-100.0); Monocytes # (A) 0.4 k/uL (0-1.0); Monocytes % (A) 4 %; Neutrophils # (A) 7.6 k/uL (1.3-7.7); Neutrophils % (A) 76 %; Platelet Count 276 k/uL (150-450); RBC 3.78 m/uL (3.80-5.40); RDW 17.5 % (11.5-15.5); WBC 10.1 k/uL (3.8-10.6)
--- NOTE | 2018-08-24 07:55 | P.PN ---
Progress Note - Text Progress Note Date: 08/24/18 C7-year-old female status post exporter laparotomy with colostomy. Postop day # 1, epidural catheter day #2. Patient has multiple chronic pain complaints, she is bedridden, and is on chronic opiate therapy. She had T10 epidural placed that was functioning well yesterday however when evaluating today epidural catheter is at 5 cm to the skin. Does not appear to be functioning as patient is an 20 out of 10 pain. Pain is diffuse all over from head to toe. I recommended a pain medicine consultation, patient could possibly benefit from a CONTRACT IMPLEMENTATION ANALYST. We'll remove epidural catheter.
[2018-08-24 08:17] LABS: ALT 25 U/L (9-52); AST 22 U/L (14-36); Albumin 2.9 g/dL (3.5-5.0); Alkaline Phosphatase 129 U/L (38-126); Anion Gap 8 mmol/L; Blood Urea Nitrogen 11 mg/dL (7-17); Calcium 8.8 mg/dL (8.4-10.2); Carbon Dioxide 18 mmol/L (22-30); Chloride 114 mmol/L (98-107); Glucose 148 mg/dL (74-99); Potassium 4.6 mmol/L (3.5-5.1); Sodium 140 mmol/L (137-145); Total Bilirubin 0.6 mg/dL (0.2-1.3); Total Protein 6.5 g/dL (6.3-8.2)
[2018-08-24] MEDS: IPRATROPIUM-ALBUTEROL 3 ML NEB INHALATION SCH ×4 (08:43→20:19)
[2018-08-24] MEDS: ACETAMINOPHEN TAB 325 MG TAB PO PRN (08:47)
[2018-08-24] MEDS: INSULIN ASPART 100 UNIT/ML 1 ML 10 ML VIAL SQ SCH ×3 (09:05→18:09)
[2018-08-24] MEDS: CIPROFLOXACIN HCL 500 MG TAB PO SCH (11:43)
--- NOTE | 2018-08-24 12:00 | P.PN ---
Subjective Progress Note Date: 08/24/18 HISTORY OF PRESENT ILLNESS: 67-year-old female who is admitted for chronic colonic ileus. Patient examined at the bedside. Patient underwent colostomy yesterday. Ostomy with small amount of serous output. No stool or gas. Patient is NPO. Complaining of severe pain this morning. Anesthesia adjusted epidural this morning. PHYSICAL EXAM: VITAL SIGNS: Currently stable. GENERAL: Well-developed in no acute distress. HEENT: No sclera icterus. Extraocular movements grossly intact. Moist buccal mucosa. Head is atraumatic, normocephalic. Hears conversational speech. No nasal drainage. NECK: Supple without lymphadenopathy. CHEST: Non-labored respirations and equal bilateral excursions. CARDIOVASCULAR: Regular rate with regular rhythm. Palpable 2+ radial pulses. ABDOMEN: Soft. Dressing intact. Sanguinous drainage to dressing. ostomy intact with serous output. No gas or stool. MUSCULOSKELETAL: No clubbing, cyanosis or edema. NEUROLOGIC: No focal or lateralizing signs. Cranial nerves II through XII grossly intact. PSYCH: Appropriate affect. Alert and oriented to person, place and time. SKIN: Well perfused. Good skin turgor. ASSESSMENT: 1. Chronic colonic ileus 2. S/P colostomy, POD #1 PLAN: NPO until ostomy is functioning Anesthesia adjusted epidural. If pain does not improve, will DC epidural Nurse practitioner note has been reviewed by physician. Signing provider agrees with the documented findings, assessment, and plan of care. Objective - Vital Signs Vital signs: Vital Signs Temp 99.2 F 08/24/18 01:23 Pulse 95 08/24/18 05:07 Resp 16 08/24/18 05:07 BP 160/78 08/24/18 05:07 Pulse Ox 100 08/24/18 05:07 Intake & Output 08/23/18 08/24/18 08/24/18 18:59 06:59 18:59 Intake Total 1987.5 1000 Output Total 1950 450 Balance 37.5 550 Intake: IV 1987.5 Intake, IV Titration 1000 Amount Lactated Ringers 1,000 ml 1000 @ 125 mls/hr IV .Q8H ONE Rx#:[id number] Output: Urine 1850 450 Uretheral (Coffey) 1300 Estimated Blood Loss 100 Other: Voiding Method Indwelling Catheter Indwelling Catheter - Labs CBC & Chem 7: 08/24/18 07:28 08/24/18 07:28 Labs: Abnormal Lab Results - Last 24 Hours (Table) 08/23/18 08/23/18 08/24/18 Range/Units 17:21 20:12 07:04 RBC (3.80-5.40) m/uL Hgb (11.4-16.0) gm/dL Hct (34.0-46.0) % MCHC (31.0-37.0) g/dL RDW (11.5-15.5) % Chloride (98-107) mmol/L Carbon Dioxide (22-30) mmol/L Glucose (74-99) mg/dL POC Glucose (mg/dL) 158 H 144 H 141 H (75-99) mg/dL Alkaline Phosphatase (38-126) U/L Albumin (3.5-5.0) g/dL 08/24/18 08/24/18 Range/Units 07:28 07:28 RBC 3.78 L (3.80-5.40) m/uL Hgb 10.0 L D (11.4-16.0) gm/dL Hct 33.4 L (34.0-46.0) % MCHC 30.0 L (31.0-37.0) g/dL RDW 17.5 H (11.5-15.5) % Chloride 114 H (98-107) mmol/L Carbon Dioxide 18 L (22-30) mmol/L Glucose 148 H (74-99) mg/dL POC Glucose (mg/dL) (75-99) mg/dL Alkaline Phosphatase 129 H (38-126) U/L Albumin 2.9 L (3.5-5.0) g/dL
[2018-08-24] MEDS: PANTOPRAZOLE 40 MG/10 ML VIAL IVP SCH (12:15)
[2018-08-24] MEDS: SENNOSIDES 8.6 MG TAB PO SCH ×2 (12:15→21:11)
[2018-08-24] MEDS: LISINOPRIL 5 MG TAB PO SCH (12:16)
[2018-08-24] MEDS: amLODIPine 2.5 MG TAB PO SCH (12:16)
[2018-08-24] MEDS: HYDROmorphone 0.5 MG/0.5 ML SYRINGE IVP PRN ×4 (12:17→22:22)
[2018-08-24] MEDS: MAGNESIUM OXIDE 400 MG TAB PO SCH ×2 (12:17→21:10)
[2018-08-24 12:46] LABS: Glucose,Whole Blood 135 mg/dL (75-99)
[2018-08-24] MEDS: OXYBUTYNIN 10 MG TAB.ER.24 PO SCH (13:28)
[2018-08-24 16:12] VITALS: BMI 31.6
[2018-08-24 17:30] LABS: Glucose,Whole Blood 127 mg/dL (75-99)
--- NOTE | 2018-08-24 20:56 | P.PN ---
Subjective Progress Note Date: 08/24/18 67 year old woman presents with sever abdominal pain and was found to have colonic ileus. It did not respond to medical therapy and was taken to OR yesterday where megacolon was found and resected. Today is miserable complaining of pain 05/03. Pain management has been contacted given her long history. No evidence of fever post op. Objective - Vital Signs Vital signs: Vital Signs Temp 99.9 F H 08/24/18 19:11 Pulse 92 08/24/18 19:11 Resp 16 08/24/18 19:11 BP 146/77 08/24/18 19:11 Pulse Ox 98 08/24/18 19:11 Intake & Output 08/24/18 08/24/18 08/25/18 06:59 18:59 06:59 Intake Total 1000 1025 Output Total 450 300 Balance 550 725 Weight 78.471 kg Intake: Intake, IV Titration 1000 825 Amount Lactated Ringers 1,000 ml 1000 825 @ 125 mls/hr IV .Q8H ONE Rx#:[id number] Oral 200 Output: Urine 450 300 Uretheral (Coffey) 300 Other: Voiding Method Indwelling Catheter Indwelling Catheter - Exam 67-year-old female who is miserable with abd pain HEENT: Anicteric conjunctiva are pink and moist nasal mucosa grossly intact without significant lesions, there is no thrush. Poor dentition Neck: The neck is supple without significant lymphadenopathy or thyromegaly. Lungs: There is symmetrical bilateral air entry with expiratory wheezes that are scattered basilar crackles Heart: Regular rate and rhythm with an audible S1-S2, no S3 no S4. There is no significant murmur click or rub, PMI was nondisplaced. Abdomen: Obese, post op the ostomy is pink with scant drainage, abd severely tender Extremities: The upper extremities have excellent pulses they are symmetric, no significant petechiae or telangiectasia. No splinter hemorrhages were noted. Lower extremities have chronic bilateral lower extremity edema the ulcer is clean and no drainage Neuro: Awake alert oriented to person place and time. miserable Skin no evidence of rash - Labs CBC & Chem 7: 08/24/18 07:28 08/24/18 07:28 Labs: Abnormal Lab Results - Last 24 Hours (Table) 08/24/18 08/24/18 08/24/18 Range/Units 07:04 07: 07:28 RBC 3.78 L (3.80-5.40) m/uL Hgb 10.0 L D (11.4-16.0) gm/dL Hct 33.4 L (34.0-46.0) % MCHC 30.0 L (31.0-37.0) g/dL RDW 17.5 H (11.5-15.5) % Chloride 114 H (98-107) mmol/L Carbon Dioxide 18 L (22-30) mmol/L Glucose 148 H (74-99) mg/dL POC Glucose (mg/dL) 141 H (75-99) mg/dL Alkaline Phosphatase 129 H (38-126) U/L Albumin 2.9 L (3.5-5.0) g/dL 08/24/18 08/24/18 Range/Units 12:32 17:13 RBC (3.80-5.40) m/uL Hgb (11.4-16.0) gm/dL Hct (34.0-46.0) % MCHC (31.0-37.0) g/dL RDW (11.5-15.5) % Chloride (98-107) mmol/L Carbon Dioxide (22-30) mmol/L Glucose (74-99) mg/dL POC Glucose (mg/dL) 135 H 127 H (75-99) mg/dL Alkaline Phosphatase (38-126) U/L Albumin (3.5-5.0) g/dL Laboratory Results WBC 10.1 k/uL (3.8-10.6) 08/24/18 07:28 RBC 3.78 m/uL (3.80-5.40) L 08/24/18 07:28 Hgb 10.0 gm/dL (11.4-16.0) L D 08/24/18 07:28 Hct 33.4 % (34.0-46.0) L 08/24/18 07:28 MCV 88.3 fL (80.0-100.0) 08/24/18 07:28 MCH 26.5 pg (25.0-35.0) 08/24/18 07:28 MCHC 30.0 g/dL (31.0-37.0) L 08/24/18 07:28 RDW 17.5 % (11.5-15.5) H 08/24/18 07:28 Plt Count 276 k/uL (150-450) 08/24/18 07:28 Neutrophils % 76 % 08/24/18 07:28 Lymphocytes % 18 % 08/24/18 07:28 Monocytes % 4 % 08/24/18 07:28 Eosinophils % 0 % 08/24/18 07:28 Basophils % 0 % 08/24/18 07:28 Neutrophils # 7.6 k/uL (1.3-7.7) 08/24/18 07:28 Lymphocytes # 1.8 k/uL (1.0-4.8) 08/24/18 07:28 Monocytes # 0.4 k/uL (0-1.0) 08/24/18 07:28 Eosinophils # 0.0 k/uL (0-0.7) 08/24/18 07:28 Basophils # 0.0 k/uL (0-0.2) 08/24/18 07:28 Hypochromasia Moderate 08/24/18 07:28 Anisocytosis Slight 08/24/18 07:28 PT 10.1 sec (9.0-12.0) 08/17/18 17:00 INR 0.9 (<1.2) 08/17/18 17:00 APTT 23.9 sec (22.0-30.0) 08/17/18 17:00 Sodium 140 mmol/L (137-145) 08/24/18 07:28 Potassium 4.6 mmol/L (3.5-5.1) 08/24/18 07:28 Chloride 114 mmol/L (98-107) H 08/24/18 07:28 Carbon Dioxide 18 mmol/L (22-30) L 08/24/18 07:28 Anion Gap 8 mmol/L 08/24/18 07:28 BUN 11 mg/dL (7-17) 08/24/18 07:28 Creatinine 0.72 mg/dL (0.52-1.04) 08/24/18 07:28 Est GFR (CKD-EPI)AfAm >90 (>60 ml/min/1.73 sqM) 08/24/18 07:28 Est GFR (CKD-EPI)NonAf 87 (>60 ml/min/1.73 sqM) 08/24/18 07:28 Glucose 148 mg/dL (74-99) H 08/24/18 07:28 POC Glucose (mg/dL) 127 mg/dL (75-99) H 08/24/18 17:13 POC Glu Accounts Receivable Manager ID Nicole Cisneros 08/24/18 17:[address] Glu mg/dL 148 08/18/18 07:12 Hemoglobin A1c 6.8 % (4.0-6.0) H 08/18/18 07:12 Plasma Lactic Acid Maximus 1.2 mmol/L (0.7-2.0) 08/17/18 17:00 Calcium 8.8 mg/dL (8.4-10.2) 08/24/18 07:28 Total Bilirubin 0.6 mg/dL (0.2-1.3) 08/24/18 07:28 AST 22 U/L (14-36) 08/24/18 07:28 ALT 25 U/L (9-52) 08/24/18 07:28 Alkaline Phosphatase 129 U/L (38-126) H 08/24/18 07:28 Total Protein 6.5 g/dL (6.3-8.2) 08/24/18 07:28 Albumin 2.9 g/dL (3.5-5.0) L 08/24/18 07:28 Urine Color Yellow 08/18/18 01:45 Urine Appearance Clear (Clear) 08/18/18 01:45 Urine pH 6.0 (5.0-8.0) 08/18/18 01:45 Ur Specific [place] 1.010 (1.001-1.035) 08/18/18 01:45 Urine Protein 1+ (Negative) H 08/18/18 01:45 Urine Glucose (UA) Negative (Negative) 08/18/18 01:45 Urine Ketones Negative (Negative) 08/18/18 01:45 Urine Blood Small (Negative) H 08/18/18 01:45 Urine Nitrite Negative (Negative) 08/18/18 01:45 Urine Bilirubin Negative (Negative) 08/18/18 01:45 Urine Urobilinogen <2.0 mg/dL (<2.0) 08/18/18 01:45 Ur Leukocyte Esterase Moderate (Negative) H 08/18/18 01:45 Urine RBC 9 /hpf (0-5) H 08/18/18 01:45 Urine WBC 19 /hpf (0-5) H 08/18/18 01:45 Urine WBC Clumps Rare /hpf (None) H 08/18/18 01:45 Ur Squamous Epith Cells 1 /hpf (0-4) 08/18/18 01:45 Urine Bacteria Rare /hpf (None) H 08/18/18 01:45 Urine Mucus Rare /hpf (None) H 08/18/18 01:45 Blood Type A Positive 08/23/18 07:29 Blood Type Recheck No 08/23/18 07:29 Antibody Screen NEGATIVE 08/23/18 07:29 Spec Expiration Date 08/26/2018 - 232808/23/18 07:29 Microbiology 08/17/18 23:00 Leg - Left Gram Stain - Final 08/17/18 23:00 Leg - Left Wound Culture - Final Staphylococcus epidermidis 08/18/18 01:45 Urine,Catheterized Urine Culture - Final Escherichia coli Assessment and Plan (1) Megacolon Narrative/Plan: 67 year old woman with abd pain has developed megacolon that required surgical removal and ostomy placement. stable but in sever pain and has developed fever today. Will adjust antibiotic therapy to merrem given the bowel pathology and UTI. Anesthesia to evaluate pain control. Patient is with depression. Current Visit: Yes Status: Acute Code(s): K59.39 - OTHER MEGACOLON SNOMED Code(s): 78137171 (2) Ulcer of left lower extremity with fat layer exposed Current Visit: No Status: Acute Code(s): L97.922 - NON-PRS CHR ULC UNSP PRT OF L LOW LEG W FAT LAYER EXPOSED SNOMED Code(s): 16811446 (3) Leukocytosis Current Visit: Yes Status: Acute Code(s): D72.829 - ELEVATED WHITE BLOOD CELL COUNT, UNSPECIFIED SNOMED Code(s): 024498611
[2018-08-24 21:07] LABS: Glucose,Whole Blood 148 mg/dL (75-99)
[2018-08-24] MEDS: ATORVASTATIN 40 MG TAB PO SCH (21:10)
[2018-08-25] MEDS: MEROPENEM 1 GM in SODIUM CHLORIDE 0.9% 100 ML IVPB SCH ×3 (00:24→16:20)
[2018-08-25] MEDS: HEPARIN SODIUM,PORCINE 5,000 UNIT/ML 1 ML VIAL SQ SCH ×3 (00:24→16:19)
[2018-08-25] MEDS: INSULIN ASPART 100 UNIT/ML 1 ML 10 ML VIAL SQ SCH ×4 (00:37→17:59)
[2018-08-25 00:52] LABS: Glucose,Whole Blood 152 mg/dL (75-99)
[2018-08-25] MEDS: HYDROmorphone 0.5 MG/0.5 ML SYRINGE IVP PRN ×5 (01:41→13:56)
[2018-08-25] MEDS: ACETAMINOPHEN TAB 325 MG TAB PO PRN ×2 (01:53→18:05)
[2018-08-25 06:17] LABS: Glucose,Whole Blood 139 mg/dL (75-99)
[2018-08-25] MEDS: MAGNESIUM OXIDE 400 MG TAB PO SCH ×2 (08:20→21:08)
[2018-08-25] MEDS: LISINOPRIL 5 MG TAB PO SCH (08:20)
[2018-08-25] MEDS: amLODIPine 2.5 MG TAB PO SCH (08:20)
[2018-08-25] MEDS: PANTOPRAZOLE 40 MG/10 ML VIAL IVP SCH (08:20)
[2018-08-25] MEDS: OXYBUTYNIN 10 MG TAB.ER.24 PO SCH (08:21)
[2018-08-25] MEDS: SENNOSIDES 8.6 MG TAB PO SCH ×2 (08:21→21:08)
[2018-08-25] MEDS: IPRATROPIUM-ALBUTEROL 3 ML NEB INHALATION SCH ×4 (08:42→20:10)
--- NOTE | 2018-08-25 10:01 | P.PN ---
Subjective Progress Note Date: 08/24/18 59-year-old female with a known history of constipation in spite of daily bowel movements came in for the severe constipation: Neck obstruction patient underwent the diagnostic and therapy the colonoscopy ration did have a good bowel movement. Patient's abdomen is soft is still having sluggish bowel sounds area at patient denied any fever chills nausea vomiting abdominal pain at this time. Patient does have bilateral leg ulcers for which patient will receive local wound care and the infectious disease was consulted regarding this patient does have significant weakness which is chronic in both legs and atrophy of both lower limb muscles. Patient is chronically bedbound uses wheelchair and a [place] resident. 08/19/2018 No overnight events patient did not move her bowels name patient will undergo therapeutic colonoscopy today was probably 08/20/2018 Patient's abdomen is relatively much softer now had a big bowel movement last night. Abdominal x-ray will be obtained tomorrow depending on that decision regarding colonoscopy will be made tomorrow 08/21/2018 patient just returning from abdominal x-ray. No bowel movement or flatus today. States she had a bowel movement yesterday. Declined her breakfast. Denies nausea or vomiting. Reporting some abdominal pain mostly in the right lower quadrant. Denies leg pain. Denies chest pain, palpitations or increasing shortness of breath. Afebrile. Maintained on antibiotics of Cipro as per infectious disease. 08/22/2018 abdominal x-ray yesterday reported persistent marked distention of the colon with dilated small bowel loops, particular dilation of the sigmoid colon similar to prior exam, colonic ileus, colonic obstruction or volvulus. Soapsuds enema administered yesterday, reports large bowel movement today. Patient is scheduled for colostomy tomorrow. Afebrile 08/23/2018 NPO, scheduled for colostomy today. T-max 99.5.CL 115, change IVs to D5/W. 08/24/2018 Colonic ileus, underwent OR yesterday, megacolon discovered, status post subtotal colectomy, with colostomy created. Significant pain. Epidural leaking, adjusted by anesthesia further, continues to leak; being discontinued. Recently receiving morphine IV push as per anesthesia. Ostomy functioning with small amount of serosanguineous drainage, without flatus. Hemoglobin 10. NPO,Blood sugars controlled. Maintaining O2 sats in the high 90s on room air. T-max 100.3. Constitutional: Positive fatigue denied any fever, generalized discomfort/pain. Cardio vascular: denied any chest pain, palpitations Gastrointestinal denied any nausea vomiting, surgical pain Pulmonary: Denied any shortness of breath cough Neurologic denied any new focal deficits Medications have been reviewed and adjusted accordingly. Objective - Vital Signs Vital signs: Vital Signs Temp 99.9 F H 08/24/18 19:11 Pulse 92 08/24/18 19:11 Resp 16 08/24/18 19:11 BP 146/77 08/24/18 19:11 Pulse Ox 98 08/24/18 19:11 Intake & Output 08/24/18 08/24/18 08/25/18 06:59 18:59 06:59 Intake Total 1000 1025 Output Total 450 300 Balance 550 725 Weight 78.471 kg Intake: Intake, IV Titration 1000 825 Amount Lactated Ringers 1,000 ml 1000 825 @ 125 mls/hr IV .Q8H ONE Rx#:[id number] Oral 200 Output: Urine 450 300 Uretheral (Coffey) 300 Other: Voiding Method Indwelling Catheter Indwelling Catheter - Exam GENERAL: The patient is alert and oriented x3, currently having significant pain as epidural leaking HEENT: Pupils are round and equally reacting to light. EOMI. No scleral icterus. No conjunctival pallor. Normocephalic, atraumatic. Oral mucosa moist CARDIOVASCULAR: S1 and S2 present. No murmurs, rubs, or gallops. PULMONARY: Chest is clear to auscultation, no wheezing or crackles. ABDOMEN: Soft, mildly distended, status post surgery, colostomy with minimal serosanguineous drainage without flatus. EXTREMITIES: No cyanosis, clubbing, or pedal edema. NEUROLOGICAL: Gross neurological examination did not reveal any new focal deficits. Chronic bilateral lower limb weakness SKIN: Left leg dressings clean dry and intact. Microbiology 08/17/18 23:00 Leg - Left Gram Stain - Final 08/17/18 23:00 Leg - Left Wound Culture - Final Staphylococcus epidermidis 08/18/18 01:45 Urine,Catheterized Urine Culture - Final Escherichia coli - Labs CBC & Chem 7: 08/24/18 07:28 08/24/18 07:28 Labs: Abnormal Lab Results - Last 24 Hours (Table) 0108/24/18 08/24/18 Range/Units 07:04 07:28 07:28 RBC 3.78 L (3.80-5.40) m/uL Hgb 10.0 L D (11.4-16.0) gm/dL Hct 33.4 L (34.0-46.0) % MCHC 30.0 L (31.0-37.0) g/dL RDW 17.5 H (11.5-15.5) % Chloride 114 H (98-107) mmol/L Carbon Dioxide 18 L (22-30) mmol/L Glucose 148 H (74-99) mg/dL POC Glucose (mg/dL) 141 H (75-99) mg/dL Alkaline Phosphatase 129 H (38-126) U/L Albumin 2.9 L (3.5-5.0) g/dL 08/24/18 08/24/18 08/24/18 Range/Units 12:32 17:13 20:51 RBC (3.80-5.40) m/uL Hgb (11.4-16.0) gm/dL Hct (34.0-46.0) % MCHC (31.0-37.0) g/dL RDW (11.5-15.5) % Chloride (98-107) mmol/L Carbon Dioxide (22-30) mmol/L Glucose (74-99) mg/dL POC Glucose (mg/dL) 135 H 127 H 148 H (75-99) mg/dL Alkaline Phosphatase (38-126) U/L Albumin (3.5-5.0) g/dL Assessment and Plan Assessment: -Chronic colonic ileus, megacolon, status post subtotal colectomy, with colostomy. -Type 2 diabetes mellitus -Acute UTI with E. coli -Hyperlipidemia -Hypertensio -bilateral lower limb venous ulcerations -Fibromyalgia -History of DVT in the past not on anti-correlation at this time -History of SVT patient is presently sinus rhythm -Chronic venous stasis and chronic deconditioning. -Hyperchloremia -Fevers, workup in progress Plan: Continue on current medication regime ,monitoring and symptomatic treatment. Blood cultures, urine cultures ordered. Colon pathology pending. Epidural being discontinued with alternate pain medication as per surgery. Hyperchloremia,; currently on LR post surgery, repeat labs in a.m. Antibiotics/ wound care as per infectious disease. Prognosis guarded given multiple complex medical issues. The impression and plan of care has been dictated as directed. : I performed a history and examination of this patient, discussed the same with the dictator. I agree with the dictator's note ,documented as a scribe. Any additional findings or plans will be noted.
[2018-08-25 12:04] LABS: Glucose,Whole Blood 139 mg/dL (75-99)
[2018-08-25 12:19] LABS: Anisocytosis Slight; Basophils % (A) 0 %; Eosinophils # (A) 0.2 k/uL (0-0.7); Eosinophils % (A) 3 %; HCT 30.2 % (34.0-46.0); HGB 8.8 gm/dL (11.4-16.0); Hypochromasia Marked; Lymphocytes # (A) 1.5 k/uL (1.0-4.8); Lymphocytes % (A) 21 %; MCH 26.3 pg (25.0-35.0); MCV 90.6 fL (80.0-100.0); Mean Platelet Volume 6.9; Monocytes # (A) 0.3 k/uL (0-1.0); Monocytes % (A) 4 %; Neutrophils % (A) 70 %; Platelet Count 212 k/uL (150-450); RBC 3.33 m/uL (3.80-5.40); RDW 17.8 % (11.5-15.5); WBC 7.1 k/uL (3.8-10.6)
[2018-08-25 12:32] LABS: Anion Gap 6 mmol/L; Blood Urea Nitrogen 14 mg/dL (7-17); Calcium 8.8 mg/dL (8.4-10.2); Carbon Dioxide 21 mmol/L (22-30); Chloride 111 mmol/L (98-107); Glucose 125 mg/dL (74-99); Potassium 4.1 mmol/L (3.5-5.1); Sodium 138 mmol/L (137-145)
--- NOTE | 2018-08-25 12:45 | P.PN ---
Subjective Progress Note Date: 08/25/18 HISTORY OF PRESENT ILLNESS: 67-year-old female who is admitted for chronic colonic ileus. Patient examined at the bedside. Patient underwent colostomy. POD #2. Ostomy with small amount of serous output. No stool or gas. Tolerating clear liquid diet. PHYSICAL EXAM: VITAL SIGNS: Currently stable. GENERAL: Well-developed in no acute distress. HEENT: No sclera icterus. Extraocular movements grossly intact. Moist buccal mucosa. Head is atraumatic, normocephalic. Hears conversational speech. No nasal drainage. NECK: Supple without lymphadenopathy. CHEST: Non-labored respirations and equal bilateral excursions. CARDIOVASCULAR: Regular rate with regular rhythm. Palpable 2+ radial pulses. ABDOMEN: Soft. Dressing intact. Sanguinous drainage to dressing. ostomy intact with serous output. No gas or stool. MUSCULOSKELETAL: No clubbing, cyanosis or edema. NEUROLOGIC: No focal or lateralizing signs. Cranial nerves II through XII grossly intact. PSYCH: Appropriate affect. Alert and oriented to person, place and time. SKIN: Well perfused. Good skin turgor. ASSESSMENT: 1. Chronic colonic ileus 2. S/P colostomy, POD #2 3. Chronic pain PLAN: Continue clear liquid diet Await stool output from colostomy Activity as tolerated Incentive spirometry Nurse practitioner note has been reviewed by physician. Signing provider agrees with the documented findings, assessment, and plan of care. Objective - Vital Signs Vital signs: Vital Signs Temp 99.1 F 08/25/18 07:24 Pulse 66 08/25/18 07:24 Resp 18 08/25/18 07:24 BP 152/80 08/25/18 07:24 Pulse Ox 99 08/25/18 07:24 Intake & Output 08/24/18 08/25/18 08/25/18 18:59 06:59 18:59 Intake Total 1025 100 200 Output Total 300 1 350 Balance 725 99 -150 Weight 78.471 kg Intake: Intake, IV Titration 825 100 Amount Lactated Ringers 1,000 ml 825 @ 125 mls/hr IV .Q8H ONE Rx#:[id number] Meropenem 1 gm In Sodium 100 Chloride 0.9% 100 ml @ 200 mls/hr IVPB Q8HR [facility] Rx#:[id number] Oral 200 200 Output: Urine 300 350 Uretheral (Coffey) 300 Stool 1 Other: Voiding Method Indwelling Catheter Indwelling Catheter Indwelling Catheter - Labs CBC & Chem 7: 08/25/18 11:45 08/24/18 07:28 Labs: Abnormal Lab Results - Last 24 Hours (Table) 08/24/18 08/24/18 08/24/18 Range/Units 12:32 17:13 20:51 RBC (3.80-5.40) m/uL Hgb (11.4-16.0) gm/dL Hct (34.0-46.0) % MCHC (31.0-37.0) g/dL RDW (11.5-15.5) % POC Glucose (mg/dL) 135 H 127 H 148 H (75-99) mg/dL 08/25/18 08/25/18 08/25/18 Range/Units 00:23 06:04 11:45 RBC 3.33 L (3.80-5.40) m/uL Hgb 8.8 L (11.4-16.0) gm/dL Hct 30.2 L (34.0-46.0) % MCHC 29.0 L (31.0-37.0) g/dL RDW 17.8 H (11.5-15.5) % POC Glucose (mg/dL) 152 H 139 H (75-99) mg/dL 08/25/18 Range/Units 11:50 RBC (3.80-5.40) m/uL Hgb (11.4-16.0) gm/dL Hct (34.0-46.0) % MCHC (31.0-37.0) g/dL RDW (11.5-15.5) % POC Glucose (mg/dL) 139 H (75-99) mg/dL
--- NOTE | 2018-08-25 15:24 | P.PN ---
Subjective 59-year-old female with a known history of constipation in spite of daily bowel movements came in for the severe constipation: Neck obstruction patient underwent the diagnostic and therapy the colonoscopy ration did have a good bowel movement. Patient's abdomen is soft is still having sluggish bowel sounds area at patient denied any fever chills nausea vomiting abdominal pain at this time. Patient does have bilateral leg ulcers for which patient will receive local wound care and the infectious disease was consulted regarding this patient does have significant weakness which is chronic in both legs and atrophy of both lower limb muscles. Patient is chronically bedbound uses wheelchair and a [facility] resident. 08/19/2018 No overnight events patient did not move her bowels name patient will undergo therapeutic colonoscopy today was probably 08/20/2018 Patient's abdomen is relatively much softer now had a big bowel movement last night. Abdominal x-ray will be obtained tomorrow depending on that decision regarding colonoscopy will be made tomorrow 08/21/2018 patient just returning from abdominal x-ray. No bowel movement or flatus today. States she had a bowel movement yesterday. Declined her breakfast. Denies nausea or vomiting. Reporting some abdominal pain mostly in the right lower quadrant. Denies leg pain. Denies chest pain, palpitations or increasing shortness of breath. Afebrile. Maintained on antibiotics of Cipro as per infectious disease. 08/22/2018 abdominal x-ray yesterday reported persistent marked distention of the colon with dilated small bowel loops, particular dilation of the sigmoid colon similar to prior exam, colonic ileus, colonic obstruction or volvulus. Soapsuds enema administered yesterday, reports large bowel movement today. Patient is scheduled for colostomy tomorrow. Afebrile 08/23/2018 NPO, scheduled for colostomy today. T-max 99.5.CL 115, change IVs to D5/W. 08/24/2018 Colonic ileus, underwent OR yesterday, megacolon discovered, status post subtotal colectomy, with colostomy created. Significant pain. Epidural leaking, adjusted by anesthesia further, continues to leak; being discontinued. Recently receiving morphine IV push as per anesthesia. Ostomy functioning with small amount of serosanguineous drainage, without flatus. Hemoglobin 10. NPO,Blood sugars controlled. Maintaining O2 sats in the high 90s on room air. T-max 100.3. 08/25/2018 Patient is presently on meropenem appears to have ESBL E. coli in the urine as staph epidermidis and the wound culture is a contamination. Patient is comparing of severe abdominal pain. Constitutional: Denied any fatigue denied any fever. Cardio vascular: denied any chest pain, palpitations Gastrointestinal denied any nausea vomiting Pulmonary: Denied any shortness of breath cough Neurologic denied any new focal deficits All inpatient medications were reviewed and appropriate changes in these medications as dictated in the interval history and assessment and plan. Objective - Vital Signs Vital signs: Vital Signs Temp 99.1 F 08/25/18 07:24 Pulse 66 08/25/18 07:24 Resp 18 08/25/18 07:24 BP 152/80 08/25/18 07:24 Pulse Ox 99 08/25/18 07:24 Intake & Output 08/24/18 08/25/18 08/25/18 18:59 06:59 18:59 Intake Total 1025 100 200 Output Total 300 1 350 Balance 725 99 -150 Weight 78.471 kg 78.471 kg Intake: Intake, IV Titration 825 100 Amount Lactated Ringers 1,000 ml 825 @ 125 mls/hr IV .Q8H ONE Rx#:[id number] Meropenem 1 gm In Sodium 100 Chloride 0.9% 100 ml @ 200 mls/hr IVPB Q8HR [facility] Rx#:[id number] Oral 200 200 Output: Urine 300 350 Uretheral (Coffey) 300 Stool 1 Other: Voiding Method Indwelling Catheter Indwelling Catheter Indwelling Catheter - Exam GENERAL: The patient is alert and oriented x3, currently having significant pain as epidural leaking HEENT: Pupils are round and equally reacting to light. EOMI. No scleral icterus. No conjunctival pallor. Normocephalic, atraumatic. Oral mucosa moist CARDIOVASCULAR: S1 and S2 present. No murmurs, rubs, or gallops. PULMONARY: Chest is clear to auscultation, no wheezing or crackles. ABDOMEN: Soft, mildly distended, status post surgery, colostomy with minimal serosanguineous drainage without flatus. EXTREMITIES: No cyanosis, clubbing, or pedal edema. NEUROLOGICAL: Gross neurological examination did not reveal any new focal deficits. Chronic bilateral lower limb weakness SKIN: Left leg dressings clean dry and intact. - Labs CBC & Chem 7: 08/25/18 11:45 08/25/18 11:45 Labs: Abnormal Lab Results - Last 24 Hours (Table) 08/24/18 08/24/18 08/25/18 Range/Units 17:13 20:51 00:23 RBC (3.80-5.40) m/uL Hgb (11.4-16.0) gm/dL Hct (34.0-46.0) % MCHC (31.0-37.0) g/dL RDW (11.5-15.5) % Chloride (98-107) mmol/L Carbon Dioxide (22-30) mmol/L Glucose (74-99) mg/dL POC Glucose (mg/dL) 127 H 148 H 152 H (75-99) mg/dL 08/25/18 08/25/18 08/25/18 Range/Units 06:04 11:45 11:45 RBC 3.33 L (3.80-5.40) m/uL Hgb 8.8 L (11.4-16.0) gm/dL Hct 30.2 L (34.0-46.0) % MCHC 29.0 L (31.0-37.0) g/dL RDW 17.8 H (11.5-15.5) % Chloride 111 H (98-107) mmol/L Carbon Dioxide 21 L (22-30) mmol/L Glucose 125 H (74-99) mg/dL POC Glucose (mg/dL) 139 H (75-99) mg/dL 08/25/18 Range/Units 11:50 RBC (3.80-5.40) m/uL Hgb (11.4-16.0) gm/dL Hct (34.0-46.0) % MCHC (31.0-37.0) g/dL RDW (11.5-15.5) % Chloride (98-107) mmol/L Carbon Dioxide (22-30) mmol/L Glucose (74-99) mg/dL POC Glucose (mg/dL) 139 H (75-99) mg/dL Assessment and Plan Plan: -Chronic absorption severe constipation: Patient on colonoscopy therapeutic. -Possible urinary tract infection with ESBL E. coli patient was started on meropenem -Type 2 diabetes mellitus continue sliding scale insulin -Hyperlipidemia -Hypertension: Patient is resumed on her home regimen monitor blood pressures -The lateral lower limb venous ulcerations: For which patient will require wound care. -Fibromyalgia -History of DVT in the past not on anti-correlation at this time -History of SVT patient is presently sinus rhythm -Chronic venous stasis and the deconditioning chronic -Patient will need pharmacologic GI and DVT prophylaxis
[2018-08-25] MEDS: LACTATED RINGERS 1,000 ML IV SCH (16:19)
[2018-08-25] MEDS: HYDROmorphone 1 MG/ML 1 ML SYRINGE IVP PRN ×3 (16:20→21:19)
[2018-08-25 17:23] LABS: Glucose,Whole Blood 169 mg/dL (75-99)
[2018-08-25 20:46] LABS: Glucose,Whole Blood 163 mg/dL (75-99)
[2018-08-25] MEDS: ATORVASTATIN 40 MG TAB PO SCH (21:08)
[2018-08-26] MEDS: MEROPENEM 1 GM in SODIUM CHLORIDE 0.9% 100 ML IVPB SCH ×3 (00:20→15:08)
[2018-08-26] MEDS: HEPARIN SODIUM,PORCINE 5,000 UNIT/ML 1 ML VIAL SQ SCH ×3 (00:22→15:08)
[2018-08-26 00:28] LABS: Glucose,Whole Blood 159 mg/dL (75-99)
[2018-08-26] MEDS: HYDROmorphone 1 MG/ML 1 ML SYRINGE IVP PRN ×8 (00:30→21:54)
[2018-08-26] MEDS: INSULIN ASPART 100 UNIT/ML 1 ML 10 ML VIAL SQ SCH ×4 (00:30→18:44)
[2018-08-26] MEDS: LACTATED RINGERS 1,000 ML IV SCH ×3 (03:34→18:06)
[2018-08-26 05:45] LABS: Glucose,Whole Blood 151 mg/dL (75-99)
[2018-08-26] MEDS: ACETAMINOPHEN TAB 325 MG TAB PO PRN ×2 (07:22→20:27)
[2018-08-26] MEDS: IPRATROPIUM-ALBUTEROL 3 ML NEB INHALATION SCH ×4 (08:26→20:37)
[2018-08-26] MEDS: MAGNESIUM OXIDE 400 MG TAB PO SCH ×2 (09:57→20:27)
[2018-08-26] MEDS: PANTOPRAZOLE 40 MG/10 ML VIAL IVP SCH (09:57)
[2018-08-26] MEDS: OXYBUTYNIN 10 MG TAB.ER.24 PO SCH (09:57)
[2018-08-26] MEDS: SENNOSIDES 8.6 MG TAB PO SCH ×2 (09:57→20:27)
[2018-08-26] MEDS: amLODIPine 2.5 MG TAB PO SCH (09:57)
[2018-08-26] MEDS: LISINOPRIL 5 MG TAB PO SCH (09:57)
[2018-08-26 10:07] LABS: Anisocytosis Slight; Basophils % (A) 0 %; Eosinophils # (A) 0.3 k/uL (0-0.7); Eosinophils % (A) 5 %; HCT 23.8 % (34.0-46.0); HGB 7.4 gm/dL (11.4-16.0); Hypochromasia Marked; Lymphocytes # (A) 1.4 k/uL (1.0-4.8); Lymphocytes % (A) 24 %; MCH 28.2 pg (25.0-35.0); MCHC 31.3 g/dL (31.0-37.0); MCV 90.2 fL (80.0-100.0); Mean Platelet Volume 6.8; Monocytes # (A) 0.3 k/uL (0-1.0); Monocytes % (A) 5 %; Neutrophils # (A) 3.5 k/uL (1.3-7.7); Neutrophils % (A) 63 %; Platelet Count 194 k/uL (150-450); RBC 2.64 m/uL (3.80-5.40); RDW 17.8 % (11.5-15.5); WBC 5.6 k/uL (3.8-10.6)
[2018-08-26 10:16] LABS: Anion Gap 4 mmol/L; Blood Urea Nitrogen 20 mg/dL (7-17); Calcium 8.3 mg/dL (8.4-10.2); Carbon Dioxide 23 mmol/L (22-30); Chloride 110 mmol/L (98-107); Glucose 183 mg/dL (74-99); Potassium 3.6 mmol/L (3.5-5.1); Sodium 137 mmol/L (137-145)
[2018-08-26 11:03] LABS: Glucose,Whole Blood 273 mg/dL (75-99)
--- NOTE | 2018-08-26 12:44 | P.PN ---
Subjective Progress Note Date: 08/26/18 CHIEF COMPLAINT: Megacolon HISTORY OF PRESENT ILLNESS: The patient is a 60-year-old female status post lysis subtotal colectomy, 08/23/18, POD 3 for megacolon. Ostomy working and full of stool and flatus personally witnessed by me. She is tolerating clears. PHYSICAL EXAM: VITAL SIGNS: Reviewed GENERAL: Well-developed in no acute distress. HEENT: No sclera icterus. Extraocular movements grossly intact. Moist buccal mucosa. Head is atraumatic, normocephalic. Hears conversational speech. NECK: Supple without lymphadenopathy. CHEST: Non-labored respirations and equal bilateral excursions. CARDIOVASCULAR: Palpable 2+ radial pulses. ABDOMEN: Soft. Non-distended. Incisions are intact with serosanguinous shadowing at lower 1/2 of Optifoam dressing. MUSCULOSKELETAL: No clubbing, cyanosis. NEUROLOGIC: No focal or lateralizing signs. Cranial nerves II through XII grossly intact. PSYCH: Appropriate affect. Alert and oriented to person, place and time. SKIN: Well perfused. Good skin turgor. LABS: Reviewed ASSESSMENT: 1. Megacolon 2. Large bowel obstruction PLAN: 1. Continue liquid diet. 2. May possibly advance diet tomorrow. 3. Potential discharge in 24 hrs pending continued improvement of clinic course. Objective - Vital Signs Vital signs: Vital Signs Temp 99.2 F 08/26/18 06:28 Pulse 81 08/26/18 06:28 Resp 16 08/26/18 06:28 BP 127/66 08/26/18 06:28 Pulse Ox 96 08/26/18 06:28 Intake & Output 08/25/18 08/26/18 08/26/18 18:59 06:59 18:59 Intake Total 1000 1200 Output Total 351 651 175 Balance 649 549 -175 Weight 78.471 kg Intake: Intake, IV Titration 600 1200 Amount Lactated Ringers 1,000 ml 600 1200 @ 75 mls/hr IV .[id number] [id number] Rx#:[id number] Oral 400 Output: Urine 350 650 175 Stool 1 1 Other: Voiding Method Indwelling Catheter Indwelling Catheter - Labs CBC & Chem 7: 08/26/18 09:48 08/26/18 09:48 Labs: Abnormal Lab Results - Last 24 Hours (Table) 08/25/18 08/25/18 08/26/18 Range/Units 17:11 20:34 00:17 RBC (3.80-5.40) m/uL Hgb (11.4-16.0) gm/dL Hct (34.0-46.0) % RDW (11.5-15.5) % Chloride (98-107) mmol/L BUN (7-17) mg/dL Glucose (74-99) mg/dL POC Glucose (mg/dL) 169 H 163 H 159 H (75-99) mg/dL Calcium (8.4-10.2) mg/dL 08/26/18 08/26/18 08/26/18 Range/Units 05:34 09:48 09:48 RBC 2.64 L (3.80-5.40) m/uL Hgb 7.4 L (11.4-16.0) gm/dL Hct 23.8 L (34.0-46.0) % RDW 17.8 H (11.5-15.5) % Chloride 110 H (98-107) mmol/L BUN 20 H (7-17) mg/dL Glucose 183 H (74-99) mg/dL POC Glucose (mg/dL) 151 H (75-99) mg/dL Calcium 8.3 L (8.4-10.2) mg/dL 08/26/18 Range/Units 10:52 RBC (3.80-5.40) m/uL Hgb (11.4-16.0) gm/dL Hct (34.0-46.0) % RDW (11.5-15.5) % Chloride (98-107) mmol/L BUN (7-17) mg/dL Glucose (74-99) mg/dL POC Glucose (mg/dL) 273 H (75-99) mg/dL Calcium (8.4-10.2) mg/dL Assessment and Plan (1) Morbid obesity due to excess calories Current Visit: Yes Status: Acute Code(s): E66.01 - MORBID (SEVERE) OBESITY DUE TO EXCESS CALORIES SNOMED Code(s): 458164198 (2) Colostomy status Current Visit: Yes Status: Acute Code(s): Z93.3 - COLOSTOMY STATUS SNOMED Code(s): 386717672 (3) Colonic obstruction Current Visit: Yes Status: Acute Code(s): K56.609 - UNSP INTESTNL OBST, UNSP TO PARTIAL VERSUS COMPLETE OBST SNOMED Code(s): 33516519 (4) Acute renal failure (ARF) Current Visit: No Status: Acute Code(s): N17.9 - ACUTE KIDNEY FAILURE, UNSPECIFIED SNOMED Code(s): 65506610 (5) At risk for readmission to hospital Current Visit: No Status: Acute Code(s): Z91.89 - OTH PERSONAL RISK FACTORS , NOT ELSEWHERE CLASSIFIED SNOMED Code(s): 2727797609136 (6) CKD (chronic kidney disease), stage III Current Visit: No Status: Acute Code(s): N18.3 - CHRONIC KIDNEY DISEASE, STAGE 3 (MODERATE) SNOMED Code(s): 809377161
--- NOTE | 2018-08-26 14:57 | P.PN ---
Subjective 59-year-old female with a known history of constipation in spite of daily bowel movements came in for the severe constipation: Neck obstruction patient underwent the diagnostic and therapy the colonoscopy ration did have a good bowel movement. Patient's abdomen is soft is still having sluggish bowel sounds area at patient denied any fever chills nausea vomiting abdominal pain at this time. Patient does have bilateral leg ulcers for which patient will receive local wound care and the infectious disease was consulted regarding this patient does have significant weakness which is chronic in both legs and atrophy of both lower limb muscles. Patient is chronically bedbound uses wheelchair and a [facility] resident. 08/19/2018 No overnight events patient did not move her bowels name patient will undergo therapeutic colonoscopy today was probably 08/20/2018 Patient's abdomen is relatively much softer now had a big bowel movement last night. Abdominal x-ray will be obtained tomorrow depending on that decision regarding colonoscopy will be made tomorrow 08/21/2018 patient just returning from abdominal x-ray. No bowel movement or flatus today. States she had a bowel movement yesterday. Declined her breakfast. Denies nausea or vomiting. Reporting some abdominal pain mostly in the right lower quadrant. Denies leg pain. Denies chest pain, palpitations or increasing shortness of breath. Afebrile. Maintained on antibiotics of Cipro as per infectious disease. 08/22/2018 abdominal x-ray yesterday reported persistent marked distention of the colon with dilated small bowel loops, particular dilation of the sigmoid colon similar to prior exam, colonic ileus, colonic obstruction or volvulus. Soapsuds enema administered yesterday, reports large bowel movement today. Patient is scheduled for colostomy tomorrow. Afebrile 08/23/2018 NPO, scheduled for colostomy today. T-max 99.5.CL 115, change IVs to D5/W. 08/24/2018 Colonic ileus, underwent OR yesterday, megacolon discovered, status post subtotal colectomy, with colostomy created. Significant pain. Epidural leaking, adjusted by anesthesia further, continues to leak; being discontinued. Recently receiving morphine IV push as per anesthesia. Ostomy functioning with small amount of serosanguineous drainage, without flatus. Hemoglobin 10. NPO,Blood sugars controlled. Maintaining O2 sats in the high 90s on room air. T-max 100.3. 08/25/2018 Patient is presently on meropenem appears to have ESBL E. coli in the urine as staph epidermidis and the wound culture is a contamination. Patient is comparing of severe abdominal pain. 08/26/2018 No overnight events patient pain is better patient did have bowel movement in 2 the colostomy. Constitutional: Denied any fatigue denied any fever. Cardio vascular: denied any chest pain, palpitations Gastrointestinal denied any nausea vomiting Pulmonary: Denied any shortness of breath cough Neurologic denied any new focal deficits All inpatient medications were reviewed and appropriate changes in these medications as dictated in the interval history and assessment and plan. Objective - Vital Signs Vital signs: Vital Signs Temp 99.5 F 08/26/18 13:57 Pulse 79 08/26/18 13:57 Resp 16 08/26/18 13:57 BP 108/58 08/26/18 13:57 Pulse Ox 98 08/26/18 13:57 Intake & Output 08/25/18 08/26/18 08/26/18 18:59 06:59 18:59 Intake Total 1000 1200 Output Total 351 651 675 Balance 649 549 -675 Weight 78.471 kg Intake: Intake, IV Titration 600 1200 Amount Lactated Ringers 1,000 ml 600 1200 @ 75 mls/hr IV .[id number] [facility] Rx#:[id number] Oral 400 Output: Urine 350 650 375 Stool 1 1 300 Other: Voiding Method Indwelling Catheter Indwelling Catheter # Bowel Movements 1 - Exam GENERAL: The patient is alert and oriented x3, currently having significant pain as epidural leaking HEENT: Pupils are round and equally reacting to light. EOMI. No scleral icterus. No conjunctival pallor. Normocephalic, atraumatic. Oral mucosa moist CARDIOVASCULAR: S1 and S2 present. No murmurs, rubs, or gallops. PULMONARY: Chest is clear to auscultation, no wheezing or crackles. ABDOMEN: Soft, mildly distended, status post surgery, colostomy and doesn't have bowel movement EXTREMITIES: No cyanosis, clubbing, or pedal edema. NEUROLOGICAL: Gross neurological examination did not reveal any new focal deficits. Chronic bilateral lower limb weakness SKIN: Left leg dressings clean dry and intact. - Labs CBC & Chem 7: 08/26/18 09:48 08/26/18 09:48 Labs: Abnormal Lab Results - Last 24 Hours (Table) 08/25/18 08/25/18 08/26/18 Range/Units 17:11 20:34 00:17 RBC (3.80-5.40) m/uL Hgb (11.4-16.0) gm/dL Hct (34.0-46.0) % RDW (11.5-15.5) % Chloride (98-107) mmol/L BUN (7-17) mg/dL Glucose (74-99) mg/dL POC Glucose (mg/dL) 169 H 163 H 159 H (75-99) mg/dL Calcium (8.4-10.2) mg/dL 08/26/18 08/26/18 08/26/18 Range/Units 05:34 09:48 09:48 RBC 2.64 L (3.80-5.40) m/uL Hgb 7.4 L (11.4-16.0) gm/dL Hct 23.8 L (34.0-46.0) % RDW 17.8 H (11.5-15.5) % Chloride 110 H (98-107) mmol/L BUN 20 H (7-17) mg/dL Glucose 183 H (74-99) mg/dL POC Glucose (mg/dL) 151 H (75-99) mg/dL Calcium 8.3 L (8.4-10.2) mg/dL 08/26/18 Range/Units 10:52 RBC (3.80-5.40) m/uL Hgb (11.4-16.0) gm/dL Hct (34.0-46.0) % RDW (11.5-15.5) % Chloride (98-107) mmol/L BUN (7-17) mg/dL Glucose (74-99) mg/dL POC Glucose (mg/dL) 273 H (75-99) mg/dL Calcium (8.4-10.2) mg/dL Microbiology - Last 24 Hours (Table) 08/25/18 11:45 Blood Culture - Preliminary Blood No Growth after 24 hours Assessment and Plan Plan: -Chronic absorption severe constipation: Patient on colonoscopy therapeutic. -Possible urinary tract infection with ESBL E. coli patient was started on meropenem -Type 2 diabetes mellitus continue sliding scale insulin -Hyperlipidemia -Hypertension: Patient is resumed on her home regimen monitor blood pressures -The lateral lower limb venous ulcerations: For which patient will require wound care. -Fibromyalgia -History of DVT in the past not on anti-correlation at this time -History of SVT patient is presently sinus rhythm -Chronic venous stasis and the deconditioning chronic -Patient will need pharmacologic GI and DVT prophylaxis
[2018-08-26] MEDS ORDERED: diphenhydrAMINE 25 MG CAP PO PRN (17:01)
[2018-08-26 18:17] LABS: Glucose,Whole Blood 108 mg/dL (75-99)
[2018-08-26] MEDS: ATORVASTATIN 40 MG TAB PO SCH (20:27)
[2018-08-27 00:43] LABS: Glucose,Whole Blood 194 mg/dL (75-99)
[2018-08-27] MEDS: HEPARIN SODIUM,PORCINE 5,000 UNIT/ML 1 ML VIAL SQ SCH ×4 (01:10→23:26)
[2018-08-27] MEDS: MEROPENEM 1 GM in SODIUM CHLORIDE 0.9% 100 ML IVPB SCH ×4 (01:10→23:26)
[2018-08-27] MEDS: INSULIN ASPART 100 UNIT/ML 1 ML 10 ML VIAL SQ SCH ×5 (01:11→20:51)
[2018-08-27] MEDS: HYDROmorphone 1 MG/ML 1 ML SYRINGE IVP PRN ×6 (01:11→17:38)
[2018-08-27 05:42] LABS: Glucose,Whole Blood 118 mg/dL (75-99)
[2018-08-27] MEDS: IPRATROPIUM-ALBUTEROL 3 ML NEB INHALATION SCH ×4 (07:15→19:30)
[2018-08-27] MEDS: PANTOPRAZOLE 40 MG/10 ML VIAL IVP SCH (08:40)
[2018-08-27] MEDS: LISINOPRIL 5 MG TAB PO SCH (08:40)
[2018-08-27] MEDS: OXYBUTYNIN 10 MG TAB.ER.24 PO SCH (08:40)
[2018-08-27] MEDS: amLODIPine 2.5 MG TAB PO SCH (08:40)
[2018-08-27] MEDS: MAGNESIUM OXIDE 400 MG TAB PO SCH ×2 (08:40→20:56)
[2018-08-27 11:31] LABS: Glucose,Whole Blood 140 mg/dL (75-99)
--- NOTE | 2018-08-27 11:40 | P.PN ---
Subjective 59-year-old female with a known history of constipation in spite of daily bowel movements came in for the severe constipation: Neck obstruction patient underwent the diagnostic and therapy the colonoscopy ration did have a good bowel movement. Patient's abdomen is soft is still having sluggish bowel sounds area at patient denied any fever chills nausea vomiting abdominal pain at this time. Patient does have bilateral leg ulcers for which patient will receive local wound care and the infectious disease was consulted regarding this patient does have significant weakness which is chronic in both legs and atrophy of both lower limb muscles. Patient is chronically bedbound uses wheelchair and a senior care resident. 08/19/2018 No overnight events patient did not move her bowels name patient will undergo therapeutic colonoscopy today was probably 08/20/2018 Patient's abdomen is relatively much softer now had a big bowel movement last night. Abdominal x-ray will be obtained tomorrow depending on that decision regarding colonoscopy will be made tomorrow 08/21/2018 patient just returning from abdominal x-ray. No bowel movement or flatus today. States she had a bowel movement yesterday. Declined her breakfast. Denies nausea or vomiting. Reporting some abdominal pain mostly in the right lower quadrant. Denies leg pain. Denies chest pain, palpitations or increasing shortness of breath. Afebrile. Maintained on antibiotics of Cipro as per infectious disease. 08/22/2018 abdominal x-ray yesterday reported persistent marked distention of the colon with dilated small bowel loops, particular dilation of the sigmoid colon similar to prior exam, colonic ileus, colonic obstruction or volvulus. Soapsuds enema administered yesterday, reports large bowel movement today. Patient is scheduled for colostomy tomorrow. Afebrile 08/23/2018 NPO, scheduled for colostomy today. T-max 99.5.CL 115, change IVs to D5/W. 08/24/2018 Colonic ileus, underwent OR yesterday, megacolon discovered, status post subtotal colectomy, with colostomy created. Significant pain. Epidural leaking, adjusted by anesthesia further, continues to leak; being discontinued. Recently receiving morphine IV push as per anesthesia. Ostomy functioning with small amount of serosanguineous drainage, without flatus. Hemoglobin 10. NPO,Blood sugars controlled. Maintaining O2 sats in the high 90s on room air. T-max 100.3. 08/25/2018 Patient is presently on meropenem appears to have ESBL E. coli in the urine as staph epidermidis and the wound culture is a contamination. Patient is comparing of severe abdominal pain. 08/26/2018 No overnight events patient pain is better patient did have bowel movement in 2 the colostomy. 08/27/2018 No overnight events patient is still complaining of pain in the colostomy site area. Constitutional: Denied any fatigue denied any fever. Cardio vascular: denied any chest pain, palpitations Gastrointestinal denied any nausea vomiting Pulmonary: Denied any shortness of breath cough Neurologic denied any new focal deficits All inpatient medications were reviewed and appropriate changes in these medications as dictated in the interval history and assessment and plan. Objective - Vital Signs Vital signs: Vital Signs Temp 99.4 F 08/27/18 07:59 Pulse 78 08/27/18 07:59 Resp 16 08/27/18 07:59 BP 121/80 08/27/18 07:59 Pulse Ox 99 08/27/18 07:59 Intake & Output 08/26/18 08/27/18 08/27/18 18:59 06:59 18:59 Intake Total 580 Output Total 975 500 900 Balance -975 80 -900 Intake: Intake, IV Titration 580 Amount Lactated Ringers 1,000 ml 580 @ 75 mls/hr IV .[id number] [facility] Rx#:[id number] Output: Urine 375 500 600 Stool 600 300 Other: Voiding Method Indwelling Catheter Indwelling Catheter Indwelling Catheter # Bowel Movements 1 - Exam GENERAL: The patient is alert and oriented x3, currently having significant pain as epidural leaking HEENT: Pupils are round and equally reacting to light. EOMI. No scleral icterus. No conjunctival pallor. Normocephalic, atraumatic. Oral mucosa moist CARDIOVASCULAR: S1 and S2 present. No murmurs, rubs, or gallops. PULMONARY: Chest is clear to auscultation, no wheezing or crackles. ABDOMEN: Soft, mildly distended, status post surgery, colostomy and doesn't have bowel movement EXTREMITIES: No cyanosis, clubbing, or pedal edema. NEUROLOGICAL: Gross neurological examination did not reveal any new focal deficits. Chronic bilateral lower limb weakness SKIN: Left leg dressings clean dry and intact. - Labs CBC & Chem 7: 08/26/18 09:48 08/26/18 09:48 Labs: Abnormal Lab Results - Last 24 Hours (Table) 08/26/18 08/27/18 08/27/18 Range/Units 18:06 00:32 05:31 POC Glucose (mg/dL) 108 H 194 H 118 H (75-99) mg/dL 08/27/18 Range/Units 11:17 POC Glucose (mg/dL) 140 H (75-99) mg/dL Microbiology - Last 24 Hours (Table) 08/25/18 11:45 Blood Culture - Preliminary Blood No Growth after 24 hours Assessment and Plan Plan: -Chronic absorption severe constipation: Patient on colonoscopy therapeuticshe is status post colectomy and patient has a colostomy -Possible urinary tract infection with ESBL E. coli patient he juaquin meropenem -Type 2 diabetes mellitus continue sliding scale insulin -Hyperlipidemia -Hypertension: Patient is resumed on her home regimen monitor blood pressures -The lateral lower limb venous ulcerations: For which patient will require wound care. -Fibromyalgia -History of DVT in the past not on anti-correlation at this time -History of SVT patient is presently sinus rhythm -Chronic venous stasis and the deconditioning chronic -Patient will need pharmacologic GI and DVT prophylaxis
[2018-08-27] MEDS: SENNOSIDES 8.6 MG TAB PO SCH ×2 (12:12→15:18)
--- NOTE | 2018-08-27 12:15 | P.PN ---
Subjective Progress Note Date: 08/27/18 CHIEF COMPLAINT: Megacolon HISTORY OF PRESENT ILLNESS: The patient is a 60-year-old female status post lysis subtotal colectomy, 08/23/18, POD 4 for megacolon. She is tolerating liquids. PHYSICAL EXAM: VITAL SIGNS: Reviewed GENERAL: Well-developed in no acute distress. HEENT: No sclera icterus. Extraocular movements grossly intact. Moist buccal mucosa. Head is atraumatic, normocephalic. Hears conversational speech. NECK: Supple without lymphadenopathy. CHEST: Non-labored respirations and equal bilateral excursions. CARDIOVASCULAR: Palpable 2+ radial pulses. ABDOMEN: Soft. Non-distended. No peritonitis. MUSCULOSKELETAL: No clubbing, cyanosis. NEUROLOGIC: No focal or lateralizing signs. Cranial nerves II through XII grossly intact. PSYCH: Appropriate affect. Alert and oriented to person, place and time. SKIN: Well perfused. Good skin turgor. LABS: Reviewed ASSESSMENT: 1. Megacolon 2. Large bowel obstruction PLAN: 1. Start soft diet. 2. Start oral pain meds. Objective - Vital Signs Vital signs: Vital Signs Temp 99.4 F 08/27/18 07:59 Pulse 78 08/27/18 07:59 Resp 16 08/27/18 07:59 BP 121/80 08/27/18 07:59 Pulse Ox 99 08/27/18 07:59 Intake & Output 08/26/18 08/27/18 08/27/18 18:59 06:59 18:59 Intake Total 580 Output Total 975 500 900 Balance -975 80 -900 Intake: Intake, IV Titration 580 Amount Lactated Ringers 1,000 ml 580 @ 75 mls/hr IV .[id number] [facility] Rx#:[id number] Output: Urine 375 500 600 Stool 600 300 Other: Voiding Method Indwelling Catheter Indwelling Catheter Indwelling Catheter # Bowel Movements 1 - Labs CBC & Chem 7: 08/26/18 09:48 08/26/18 09:48 Labs: Abnormal Lab Results - Last 24 Hours (Table) 08/26/18 08/27/18 08/27/18 Range/Units 18:06 00:32 05:31 POC Glucose (mg/dL) 108 H 194 H 118 H (75-99) mg/dL 02/03/19 Range/Units 11:17 POC Glucose (mg/dL) 140 H (75-99) mg/dL Microbiology - Last 24 Hours (Table) 08/25/18 11:45 Blood Culture - Preliminary Blood No Growth after 24 hours Assessment and Plan (1) Morbid obesity due to excess calories Current Visit: Yes Status: Acute Code(s): E66.01 - MORBID (SEVERE) OBESITY DUE TO EXCESS CALORIES SNOMED Code(s): 076497716 (2) Colostomy status Current Visit: Yes Status: Acute Code(s): Z93.3 - COLOSTOMY STATUS SNOMED Code(s): 494184662 (3) Colonic obstruction Current Visit: Yes Status: Acute Code(s): K56.609 - UNSP INTESTNL OBST, UNSP TO PARTIAL VERSUS COMPLETE OBST SNOMED Code(s): 39018246 (4) Acute renal failure (ARF) Current Visit: No Status: Acute Code(s): N17.9 - ACUTE KIDNEY FAILURE, UNSPECIFIED SNOMED Code(s): 43172090 (5) At risk for readmission to hospital Current Visit: No Status: Acute Code(s): Z91.89 - OT PERSONAL RISK FACTORS , NOT ELSEWHERE CLASSIFIED SNOMED Code(s): 3314604020923 (6) CKD (chronic kidney disease), stage III Current Visit: No Status: Acute Code(s): N18.3 - CHRONIC KIDNEY DISEASE, STAGE 3 (MODERATE) SNOMED Code(s): 176010143
[2018-08-27] MEDS: HYDROcodone/APAP 5-325MG 1 EACH TAB PO PRN ×2 (15:18→23:26)
[2018-08-27 17:58] LABS: Glucose,Whole Blood 168 mg/dL (75-99)
[2018-08-27] MEDS: LACTATED RINGERS 1,000 ML IV SCH (18:01)
[2018-08-27] MEDS: ATORVASTATIN 40 MG TAB PO SCH (20:56)
[2018-08-27 21:02] LABS: Glucose,Whole Blood 130 mg/dL (75-99)
[2018-08-28] MEDS: ACETAMINOPHEN TAB 325 MG TAB PO PRN (00:04)
[2018-08-28 06:56] LABS: Glucose,Whole Blood 135 mg/dL (75-99)
[2018-08-28] MEDS: HYDROcodone/APAP 5-325MG 1 EACH TAB PO PRN ×3 (07:01→18:53)
[2018-08-28] MEDS: INSULIN ASPART 100 UNIT/ML 1 ML 10 ML VIAL SQ SCH ×4 (08:37→21:29)
[2018-08-28] MEDS: IPRATROPIUM-ALBUTEROL 3 ML NEB INHALATION SCH ×4 (09:26→21:09)
[2018-08-28] MEDS ORDERED: LIDOCAINE 5% PATCH TOPICAL SCH (09:30)
[2018-08-28 10:50] LABS: Anisocytosis Slight; Basophils % (A) 1 %; Eosinophils # (A) 0.3 k/uL (0-0.7); Eosinophils % (A) 7 %; HCT 24.7 % (34.0-46.0); HGB 7.5 gm/dL (11.4-16.0); Hypochromasia Marked; Lymphocytes # (A) 1.1 k/uL (1.0-4.8); Lymphocytes % (A) 27 %; MCH 26.9 pg (25.0-35.0); MCHC 30.3 g/dL (31.0-37.0); MCV 88.7 fL (80.0-100.0); Mean Platelet Volume 7.1; Monocytes # (A) 0.3 k/uL (0-1.0); Monocytes % (A) 7 %; Neutrophils # (A) 2.4 k/uL (1.3-7.7); Neutrophils % (A) 57 %; Platelet Count 216 k/uL (150-450); RBC 2.79 m/uL (3.80-5.40); RDW 17.3 % (11.5-15.5); WBC 4.2 k/uL (3.8-10.6)
[2018-08-28] MEDS: LACTATED RINGERS 1,000 ML IV SCH (11:27)
[2018-08-28] MEDS: LISINOPRIL 5 MG TAB PO SCH (11:30)
[2018-08-28] MEDS: SENNOSIDES 8.6 MG TAB PO SCH ×2 (11:30→20:41)
[2018-08-28] MEDS: amLODIPine 2.5 MG TAB PO SCH (11:30)
[2018-08-28] MEDS: MAGNESIUM OXIDE 400 MG TAB PO SCH ×2 (11:30→20:41)
[2018-08-28] MEDS: PANTOPRAZOLE 40 MG/10 ML VIAL IVP SCH (11:31)
[2018-08-28] MEDS: OXYBUTYNIN 10 MG TAB.ER.24 PO SCH (11:31)
[2018-08-28] MEDS: HEPARIN SODIUM,PORCINE 5,000 UNIT/ML 1 ML VIAL SQ SCH ×2 (11:31→16:33)
[2018-08-28] MEDS: MEROPENEM 1 GM in SODIUM CHLORIDE 0.9% 100 ML IVPB SCH ×2 (11:34→16:33)
--- NOTE | 2018-08-28 12:00 | P.PN ---
Subjective Progress Note Date: 08/28/18 67 year old woman presents with sever abdominal pain and was found to have colonic ileus. It did not respond to medical therapy and was taken to OR yesterday where megacolon was found and resected. Today is miserable complaining of pain 05/03. Pain management has been contacted given her long history. No evidence of fever post op. offloading padding of her pain she's doing somewhat better. She is living with her dysphagia 3 diet without any difficulties. No nausea or emesis but only complaints of pain. Objective - Vital Signs Vital signs: Vital Signs Temp 100.0 F H 08/27/18 23:56 Pulse 73 08/27/18 23:56 Resp 16 08/27/18 23:56 BP 143/79 08/27/18 23:56 Pulse Ox 98 08/27/18 23:56 Intake & Output 08/27/18 08/28/18 08/28/18 18:59 06:59 18:59 Intake Total 500 1125 Output Total 1700 1150 Balance -1200 -25 Intake: Intake, IV Titration 500 675 Amount Lactated Ringers 1,000 ml 300 675 @ 75 mls/hr IV .[id number] [facility] Rx#:[id number] Meropenem 1 gm In Sodium 200 Chloride 0.9% 100 ml @ 200 mls/hr IVPB Q8HR [facility] Rx#:[id number] Oral 450 Output: Urine 1400 1150 Stool 300 Other: Voiding Method Indwelling Catheter Indwelling Catheter # Bowel Movements 1 - Exam 67-year-old female who is miserable with abd pain HEENT: Anicteric conjunctiva are pink and moist nasal mucosa grossly intact without significant lesions, there is no thrush. Poor dentition Neck: The neck is supple without significant lymphadenopathy or thyromegaly. Lungs: There is symmetrical bilateral air entry with expiratory wheezes that are scattered basilar crackles Heart: Regular rate and rhythm with an audible S1-S2, no S3 no S4. There is no significant murmur click or rub, PMI was nondisplaced. Abdomen: Obese, post op the ostomy is pink with scant drainage, abd less tender Extremities: The upper extremities have excellent pulses they are symmetric, no significant petechiae or telangiectasia. No splinter hemorrhages were noted. Lower extremities have chronic bilateral lower extremity edema the ulcer is clean and no drainage Neuro: Awake alert oriented to person place and time. Much less miserable complains about the discontinuation of her Dilaudid Skin no evidence of rash - Labs CBC & Chem 7: 08/28/18 10:27 08/26/18 09:48 Labs: Abnormal Lab Results - Last 24 Hours (Table) 08/27/18 08/27/18 08/27/18 Range/Units 11:17 17:48 20:51 RBC (3.80-5.40) m/uL Hgb (11.4-16.0) gm/dL Hct (34.0-46.0) % MCHC (31.0-37.0) g/dL RDW (11.5-15.5) % POC Glucose (mg/dL) 140 H 168 H 130 H (75-99) mg/dL 08/28/18 08/28/18 Range/Units 06:42 10:27 RBC 2.79 L (3.80-5.40) m/uL Hgb 7.5 L (11.4-16.0) gm/dL Hct 24.7 L (34.0-46.0) % MCHC 30.3 L (31.0-37.0) g/dL RDW 17.3 H (11.5-15.5) % POC Glucose (mg/dL) 135 H (75-99) mg/dL Microbiology - Last 24 Hours (Table) 08/25/18 11:45 Blood Culture - Preliminary Blood No Growth after 48 hours Laboratory Results WBC 4.2 k/uL (3.8-10.6) 08/28/18 10:27 RBC 2.79 m/uL (3.80-5.40) L 08/28/18 10:27 Hgb 7.5 gm/dL (11.4-16.0) L 08/28/18 10:27 Hct 24.7 % (34.0-46.0) L 08/28/18 10:27 MCV 88.7 fL (80.0-100.0) 08/28/18 10:27 MCH 26.9 pg (25.0-35.0) 08/28/18 10:27 MCHC 30.3 g/dL (31.0-37.0) L 08/28/18 10:27 RDW 17.3 % (11.5-15.5) H 08/28/18 10:27 Plt Count 216 k/uL (150-450) 08/28/18 10:27 Neutrophils % 57 % 08/28/18 10:27 Lymphocytes % 27 % 08/28/18 10:27 Monocytes % 7 % 08/28/18 10:27 Eosinophils % 7 % 08/28/18 10:27 Basophils % 1 % 08/28/18 10:27 Neutrophils # 2.4 k/uL (1.3-7.7) 08/28/18 10:27 Lymphocytes # 1.1 k/uL (1.0-4.8) 08/28/18 10:27 Monocytes # 0.3 k/uL (0-1.0) 08/28/18 10:27 Eosinophils # 0.3 k/uL (0-0.7) 08/28/18 10:27 Basophils # 0.0 k/uL (0-0.2) 08/28/18 10:27 Hypochromasia Marked 08/28/18 10:27 Anisocytosis Slight 08/28/18 10:27 PT 10.1 sec (9.0-12.0) 08/17/18 17:00 INR 0.9 (<1.2) 08/17/18 17:00 APTT 23.9 sec (22.0-30.0) 08/17/18 17:00 Sodium 137 mmol/L (137-145) 08/26/18 09:48 Potassium 3.6 mmol/L (3.5-5.1) 08/26/18 09:48 Chloride 110 mmol/L (98-107) H 08/26/18 09:48 Carbon Dioxide 23 mmol/L (22-30) 08/26/18 09:48 Anion Gap 4 mmol/L 08/26/18 09:48 BUN 20 mg/dL (7-17) H 08/26/18 09:48 Creatinine 0.71 mg/dL (0.52-1.04) 08/26/18 09:48 Est GFR (CKD-EPI)AfAm >90 (>60 ml/min/1.73 sqM) 08/26/18 09:48 Est GFR (CKD-EPI)NonAf 88 (>60 ml/min/1.73 sqM) 08/26/18 09:48 Glucose 183 mg/dL (74-99) H 08/26/18 09:48 POC Glucose (mg/dL) 135 mg/dL (75-99) H 08/28/18 06:42 POC Glu Leader Writer ID Karen Mejia 08/28/18 06:[address] Glu mg/dL 148 08/18/18 07:12 Hemoglobin A1c 6.8 % (4.0-6.0) H 08/18/18 07:12 Plasma Lactic Acid Maximus 1.4 mmol/L (0.7-2.0) 08/26/18 09:44 Calcium 8.3 mg/dL (8.4-10.2) L 08/26/18 09:48 Total Bilirubin 0.6 mg/dL (0.2-1.3) 08/24/18 07:28 AST 22 U/L (14-36) 08/24/18 07:28 ALT 25 U/L (9-52) 08/24/18 07:28 Alkaline Phosphatase 129 U/L (38-126) H 08/24/18 07:28 Total Protein 6.5 g/dL (6.3-8.2) 08/24/18 07:28 Albumin 2.9 g/dL (3.5-5.0) L 08/24/18 07:28 Urine Color Yellow 08/18/18 01:45 Urine Appearance Clear (Clear) 08/18/18 01:45 Urine pH 6.0 (5.0-8.0) 08/18/18 01:45 Ur Specific [place] 1.010 (1.001-1.035) 08/18/18 01:45 Urine Protein 1+ (Negative) H 08/18/18 01:45 Urine Glucose (UA) Negative (Negative) 08/18/18 01:45 Urine Ketones Negative (Negative) 08/18/18 01:45 Urine Blood Small (Negative) H 08/18/18 01:45 Urine Nitrite Negative (Negative) 08/18/18 01:45 Urine Bilirubin Negative (Negative) 08/18/18 01:45 Urine Urobilinogen <2.0 mg/dL (<2.0) 08/18/18 01:45 Ur Leukocyte Esterase Moderate (Negative) H 08/18/18 01:45 Urine RBC 9 /hpf (0-5) H 08/18/18 01:45 Urine WBC 19 /hpf (0-5) H 08/18/18 01:45 Urine WBC Clumps Rare /hpf (None) H 08/18/18 01:45 Ur Squamous Epith Cells 1 /hpf (0-4) 08/18/18 01:45 Urine Bacteria Rare /hpf (None) H 08/18/18 01:45 Urine Mucus Rare /hpf (None) H 08/18/18 01:45 Blood Type A Positive 08/23/18 07:29 Blood Type Recheck No 08/23/18 07:29 Antibody Screen NEGATIVE 08/23/18 07:29 Spec Expiration Date 08/26/2018 - 2329 08/23/18 07:29 Microbiology 08/25/18 11:45 Blood Blood Culture - Preliminary No Growth after 48 hours 08/17/18 23:00 Leg - Left Gram Stain - Final 08/17/18 23:00 Leg - Left Wound Culture - Final Staphylococcus epidermidis 08/18/18 01:45 Urine,Catheterized Urine Culture - Final Escherichia coli Assessment and Plan (1) Megacolon Narrative/Plan: 67 year old woman with abd pain has developed megacolon that required surgical removal and ostomy placement. stable but in sever pain and has developed fever today. Will adjust antibiotic therapy to merrem given the bowel pathology and UTI. Anesthesia to evaluate pain control. Patient is with depression. 08/28/2018 patient is clinically doing considerably better. She is ingesting food without great difficulties. She's having no nausea or emesis but continues to complain of ongoing pain. On the last evaluation so the Dilaudid helped or not at all and didn't know why she was getting it in on this visit she 's complaining of a stopped her Dilaudid. The patient had a fever a few days ago and is receiving meropenem for the urinary tract infection as well as any concerns to intra-abdominal infection. She'll be heading back to extended care facility. At that time with transition antibiotic therapy to moxifloxacin 400 mg once a day to complete 7 days of therapy. Current Visit: Yes Status: Acute Code(s): K59.39 - OTHER MEGACOLON SNOMED Code(s): 83729840 (2) Ulcer of left lower extremity with fat layer exposed Current Visit: No Status: Acute Code(s): L97.922 - NON-PRS CHR ULC UNSP PRT OF L LOW LEG W FAT LAYER EXPOSED SNOMED Code(s): 03789940 (3) Leukocytosis Current Visit: Yes Status: Acute Code(s): D72.829 - ELEVATED WHITE BLOOD CELL COUNT, UNSPECIFIED SNOMED Code(s): 366234761
[2018-08-28 12:31] LABS: Glucose,Whole Blood 150 mg/dL (75-99)
--- NOTE | 2018-08-28 14:08 | P.PN ---
Subjective Progress Note Date: 08/28/18 HISTORY OF PRESENT ILLNESS: 67-year-old female who is admitted for chronic colonic ileus. Patient examined at the bedside. Patient underwent colostomy. POD #5. Ostomy with stool present. Tolerating oral diet. Patient was in severe pain this morning, which has improved this afternoon. PHYSICAL EXAM: VITAL SIGNS: Currently stable. GENERAL: Well-developed in no acute distress. HEENT: No sclera icterus. Extraocular movements grossly intact. Moist buccal mucosa. Head is atraumatic, normocephalic. Hears conversational speech. No nasal drainage. NECK: Supple without lymphadenopathy. CHEST: Non-labored respirations and equal bilateral excursions. CARDIOVASCULAR: Regular rate with regular rhythm. Palpable 2+ radial pulses. ABDOMEN: Soft. Dressing intact. Ostomy intact with serous output. MUSCULOSKELETAL: No clubbing, cyanosis or edema. NEUROLOGIC: No focal or lateralizing signs. Cranial nerves II through XII grossly intact. PSYCH: Appropriate affect. Alert and oriented to person, place and time. SKIN: Well perfused. Good skin turgor. ASSESSMENT: 1. Chronic colonic ileus 2. S/P colostomy 3. Chronic pain PLAN: Continue current diet Activity as tolerated Incentive spirometry Discharge tomorrow to [facility] [place] Nurse practitioner note has been reviewed by physician. Signing provider agrees with the documented findings, assessment, and plan of care. Objective - Vital Signs Vital signs: Vital Signs Temp 100.0 F H 08/27/18 23:56 Pulse 84 08/28/18 12:35 Resp 16 08/27/18 23:56 BP 143/79 08/27/18 23:56 Pulse Ox 98 08/27/18 23:56 Intake & Output 08/27/18 08/28/18 08/28/18 18:59 06:59 18:59 Intake Total 500 1125 Output Total 1700 1150 1000 Balance -1200 -25 -1000 Weight 78.471 kg Intake: Intake, IV Titration 500 675 Amount Lactated Ringers 1,000 ml 300 675 @ 75 mls/hr IV .[id number] GUALBERTO Rx#:[id number] Meropenem 1 gm In Sodium 200 Chloride 0.9% 100 ml @ 200 mls/hr IVPB Q8HR GUALBERTO Rx#:[id number] Oral 450 Output: Urine 1400 1150 1000 Stool 300 Other: Voiding Method Indwelling Catheter Indwelling Catheter # Bowel Movements 1 - Labs CBC & Chem 7: 08/28/18 10:27 08/26/18 09:48 Labs: Abnormal Lab Results - Last 24 Hours (Table) 08/27/18 08/27/18 08/28/18 Range/Units 17:48 20:51 06:42 RBC (3.80-5.40) m/uL Hgb (11.4-16.0) gm/dL Hct (34.0-46.0) % MCHC (31.0-37.0) g/dL RDW (11.5-15.5) % POC Glucose (mg/dL) 168 H 130 H 135 H (75-99) mg/dL 08/28/18 08/28/18 Range/Units 10:27 12:05 RBC 2.79 L (3.80-5.40) m/uL Hgb 7.5 L (11.4-16.0) gm/dL Hct 24.7 L (34.0-46.0) % MCHC 30.3 L (31.0-37.0) g/dL RDW 17.3 H (11.5-15.5) % POC Glucose (mg/dL) 150 H (75-99) mg/dL Microbiology - Last 24 Hours (Table) 08/25/18 11:45 Blood Culture - Preliminary Blood No Growth after 48 hours
[2018-08-28] MEDS: HYDROmorphone 1 MG/ML 1 ML SYRINGE IVP PRN ×2 (16:32→18:57)
[2018-08-28 17:05] LABS: Glucose,Whole Blood 153 mg/dL (75-99)
--- NOTE | 2018-08-28 17:54 | P.PN ---
Subjective Progress Note Date: 08/28/18 59-year-old female with a known history of constipation in spite of daily bowel movements came in for the severe constipation: Neck obstruction patient underwent the diagnostic and therapy the colonoscopy ration did have a good bowel movement. Patient's abdomen is soft is still having sluggish bowel sounds area at patient denied any fever chills nausea vomiting abdominal pain at this time. Patient does have bilateral leg ulcers for which patient will receive local wound care and the infectious disease was consulted regarding this patient does have significant weakness which is chronic in both legs and atrophy of both lower limb muscles. Patient is chronically bedbound uses wheelchair and a snf resident. 08/19/2018 No overnight events patient did not move her bowels name patient will undergo therapeutic colonoscopy today was probably 08/20/2018 Patient's abdomen is relatively much softer now had a big bowel movement last night. Abdominal x-ray will be obtained tomorrow depending on that decision regarding colonoscopy will be made tomorrow 08/21/2018 patient just returning from abdominal x-ray. No bowel movement or flatus today. States she had a bowel movement yesterday. Declined her breakfast. Denies nausea or vomiting. Reporting some abdominal pain mostly in the right lower quadrant. Denies leg pain. Denies chest pain, palpitations or increasing shortness of breath. Afebrile. Maintained on antibiotics of Cipro as per infectious disease. 08/22/2018 abdominal x-ray yesterday reported persistent marked distention of the colon with dilated small bowel loops, particular dilation of the sigmoid colon similar to prior exam, colonic ileus, colonic obstruction or volvulus. Soapsuds enema administered yesterday, reports large bowel movement today. Patient is scheduled for colostomy tomorrow. Afebrile 08/23/2018 NPO, scheduled for colostomy today. T-max 99.5.CL 115, change IVs to D5/W. 08/24/2018 Colonic ileus, underwent OR yesterday, megacolon discovered, status post subtotal colectomy, with colostomy created. Significant pain. Epidural leaking, adjusted by anesthesia further, continues to leak; being discontinued. Recently receiving morphine IV push as per anesthesia. Ostomy functioning with small amount of serosanguineous drainage, without flatus. Hemoglobin 10. NPO,Blood sugars controlled. Maintaining O2 sats in the high 90s on room air. T-max 100.3. 08/25/2018 Patient is presently on meropenem appears to have ESBL E. coli in the urine as staph epidermidis and the wound culture is a contamination. Patient is comparing of severe abdominal pain. 08/26/2018 No overnight events patient pain is better patient did have bowel movement in 2 the colostomy. 08/27/2018 No overnight events patient is still complaining of pain in the colostomy site area. 08/28/2018 maintained on IV antibiotics of Merrem as per infectious disease. T- max 100. Preliminary repeat blood cultures negative. Despite lidocaine patches , Dilaudid, [place], continues to have significant generalized pain, 10 out of 10 , states no relief with current pain med regime. Pain management services notified with further recommendations pending.Tolerating dysphagia level III diet with no nausea or vomiting. Constitutional: Denied any fatigue denied any fever, positive generalized discomfort/pain. Cardio vascular: denied any chest pain, palpitations Gastrointestinal denied any nausea vomiting, surgical pain Pulmonary: Denied any shortness of breath cough Neurologic denied any new focal deficits Medications have been reviewed and adjusted accordingly. Objective - Vital Signs Vital signs: Vital Signs Temp 98.6 F 08/28/18 14:40 Pulse 93 08/28/18 14:40 Resp 15 08/28/18 14:40 BP 134/75 08/28/18 14:40 Pulse Ox 97 08/28/18 14:40 Intake & Output 08/27/18 08/28/18 08/28/18 18:59 06:59 18:59 Intake Total 500 1125 Output Total 1700 1150 1200 Balance -1200 -25 -1200 Weight 78.471 kg Intake: Intake, IV Titration 500 675 Amount Lactated Ringers 1,000 ml 300 675 @ 75 mls/hr IV .[id number] GUALBERTO Rx#:[id number] Meropenem 1 gm In Sodium 200 Chloride 0.9% 100 ml @ 200 mls/hr IVPB Q8HR GUALBERTO Rx#:[id number] Oral 450 Output: Urine 1400 1150 1200 Stool 300 Other: Voiding Method Indwelling Catheter Indwelling Catheter # Bowel Movements 1 - Exam GENERAL: The patient is alert and oriented x3, currently having significant pain. HEENT: Pupils are round and equally reacting to light. EOMI. No scleral icterus. No conjunctival pallor. Normocephalic, atraumatic. Oral mucosa moist CARDIOVASCULAR: S1 and S2 present. No murmurs, rubs, or gallops. PULMONARY: Chest is clear to auscultation, no wheezing or crackles. ABDOMEN: Soft, mildly distended, status post surgery, functioning colostomy EXTREMITIES: No cyanosis, clubbing, or pedal edema. NEUROLOGICAL: Gross neurological examination did not reveal any new focal deficits. Chronic bilateral lower limb weakness SKIN: Left leg dressings clean dry and intact. Microbiology 08/17/18 23:00 Leg - Left Gram Stain - Final 08/17/18 23:00 Leg - Left Wound Culture - Final Staphylococcus epidermidis 08/18/18 01:45 Urine,Catheterized Urine Culture - Final Escherichia coli - Labs CBC & Chem 7: 08/28/18 10:27 08/26/18 09:48 Labs: Abnormal Lab Results - Last 24 Hours (Table) 08/27/18 08/27/18 08/28/18 Range/Units 17:48 20:51 06:42 RBC (3.80-5.40) m/uL Hgb (11.4-16.0) gm/dL Hct (34.0-46.0) % MCHC (31.0-37.0) g/dL RDW (11.5-15.5) % POC Glucose (mg/dL) 168 H 130 H 135 H (75-99) mg/dL 08/28/18 08/28/18 08/28/18 Range/Units 10:27 12:05 16:34 RBC 2.79 L (3.80-5.40) m/uL Hgb 7.5 L (11.4-16.0) gm/dL Hct 24.7 L (34.0-46.0) % MCHC 30.3 L (31.0-37.0) g/dL RDW 17.3 H (11.5-15.5) % POC Glucose (mg/dL) 150 H 153 H (75-99) mg/dL Microbiology - Last 24 Hours (Table) 08/25/18 11:45 Blood Culture - Preliminary Blood No Growth after 72 hours Assessment and Plan Assessment: -Chronic absorption, severe constipation; Chronic colonic ileus, megacolon, status post subtotal colectomy, with colostomy. -Type 2 diabetes mellitus -Acute UTI with E. coli -Hyperlipidemia -Hypertension -bilateral lower limb venous ulcerations -Fibromyalgia -History of DVT in the past not on anti-correlation at this time -History of SVT patient is presently sinus rhythm -Chronic venous stasis and chronic deconditioning. -Hyperchloremia -Chronic pain Plan: Continue on current medication regime ,monitoring and symptomatic treatment. Pain management as per primary and pain management services. Discharge antibiotics noted per ID. Aggressive pulmonary toileting with incentive spirometer reinforced. Discharge planning in progress for subacute rehab tomorrow as per surgery. Prognosis guarded given multiple complex medical issues. The impression and plan of care has been dictated as directed. : I performed a history and examination of this patient, discussed the same with the dictator. I agree with the dictator's note ,documented as a scribe. Any additional findings or plans will be noted.
[2018-08-28] MEDS ORDERED: MORPHINE SULFATE ER 15 MG TABLET PO SCH ×2 (19:09→19:15)
--- NOTE | 2018-08-28 19:14 | P.PN ---
Progress Note - Text Progress Note Date: 08/28/18 Called by patient's nurse regarding continued pain. I will seen the patient. She continues to have pain in her abdomen, low back, legs, arms and buttocks. She reports she has chronic pain since being 33 years old. She has pain in her abdomen when she moves as well as pain in her lower extremities. She can move her lower extremities there is no numbness or tingling or lower extremity is. She does not walk chronically and is wheelchair bound. Eyes having any bedsores. She would not let me roller over to examine her backside. Surgeon is attempting to discharge the patient tomorrow to a long-term care facility. At this point I will cancel all orders are currently placed for pain medications. I will change her medication regimen to morphine sulfate 15 mg extended release 2 times per day and increase her every 6 medications to Percocet 10 mg from [place] 10 mg. We'll attempt to discontinue all IV pain medications.
[2018-08-28] MEDS: ATORVASTATIN 40 MG TAB PO SCH (20:41)
[2018-08-28 21:26] LABS: Glucose,Whole Blood 189 mg/dL (75-99)
[2018-08-29] MEDS: MEROPENEM 1 GM in SODIUM CHLORIDE 0.9% 100 ML IVPB SCH ×4 (00:07→23:16)
[2018-08-29] MEDS: oxyCODONE-APAP 10-325MG 1 EACH TAB PO PRN ×4 (00:07→22:23)
[2018-08-29] MEDS: HEPARIN SODIUM,PORCINE 5,000 UNIT/ML 1 ML VIAL SQ SCH ×4 (00:07→23:16)
[2018-08-29] MEDS: MORPHINE SULFATE ER 15 MG TABLET PO SCH ×3 (04:09→20:24)
[2018-08-29] MEDS: LACTATED RINGERS 1,000 ML IV SCH ×2 (04:11→12:26)
[2018-08-29 07:47] LABS: Glucose,Whole Blood 122 mg/dL (75-99)
[2018-08-29] MEDS: INSULIN ASPART 100 UNIT/ML 1 ML 10 ML VIAL SQ SCH ×4 (07:56→22:01)
[2018-08-29 08:07] LABS: Anisocytosis Slight; Basophils % (A) 0 %; Eosinophils # (A) 0.3 k/uL (0-0.7); Eosinophils % (A) 8 %; HCT 23.6 % (34.0-46.0); HGB 7.1 gm/dL (11.4-16.0); Hypochromasia Marked; Lymphocytes # (A) 1.2 k/uL (1.0-4.8); Lymphocytes % (A) 30 %; MCH 26.8 pg (25.0-35.0); MCV 89.4 fL (80.0-100.0); Mean Platelet Volume 6.9; Monocytes # (A) 0.3 k/uL (0-1.0); Monocytes % (A) 7 %; Neutrophils # (A) 2.1 k/uL (1.3-7.7); Neutrophils % (A) 53 %; Platelet Count 233 k/uL (150-450); RBC 2.64 m/uL (3.80-5.40); RDW 17.3 % (11.5-15.5)
[2018-08-29 08:22] LABS: Anion Gap 3 mmol/L; Blood Urea Nitrogen 24 mg/dL (7-17); Calcium 8.8 mg/dL (8.4-10.2); Carbon Dioxide 28 mmol/L (22-30); Chloride 111 mmol/L (98-107); Glucose 112 mg/dL (74-99); Potassium 4.7 mmol/L (3.5-5.1); Sodium 142 mmol/L (137-145)
--- NOTE | 2018-08-29 09:36 | XR ---
Abdomen HISTORY: Pain Frontal view of the abdomen on 2 images Correlated to prior exam 08/21/2018 Patient is rotated, entire abdomen does not appear to be included in the exam. Postop changes are not ed to be hips. Probable IUD in the pelvis. There are vascular calcifications. Surgical natanael presen t over the anterior midline of the lower abdomen. No evident pneumoperitoneum. Distended loop of colo n is present, fecal debris present within the rectum. Basilar increased density on the left obscures the hemidiaphragm, there is blunting of the left costophrenic angle. Inferior vena cava filter noted incidentally, surgical clips in the right upper quadrant. Atherosclerotic vascular calcifications not ed in the aorta. IMPRESSION: Exam is somewhat limited. Correlate to exclude fecal stasis, follow-up as indicated. Prob able left lower lobe atelectasis and associated effusion.
[2018-08-29] MEDS: LISINOPRIL 5 MG TAB PO SCH (10:30)
[2018-08-29] MEDS: PANTOPRAZOLE 40 MG/10 ML VIAL IVP SCH (10:30)
[2018-08-29] MEDS: SENNOSIDES 8.6 MG TAB PO SCH ×2 (10:31→22:01)
[2018-08-29] MEDS: OXYBUTYNIN 10 MG TAB.ER.24 PO SCH (10:31)
[2018-08-29] MEDS: amLODIPine 2.5 MG TAB PO SCH (10:31)
[2018-08-29] MEDS: MAGNESIUM OXIDE 400 MG TAB PO SCH ×2 (10:31→22:02)
[2018-08-29] MEDS: LACTULOSE 20 GM/30 ML CUP PO SCH ×3 (10:31→22:21)
[2018-08-29] MEDS: IPRATROPIUM-ALBUTEROL 3 ML NEB INHALATION SCH ×4 (10:52→19:30)
--- NOTE | 2018-08-29 11:41 | P.PN ---
Subjective Progress Note Date: 08/29/18 HISTORY OF PRESENT ILLNESS: 67-year-old female who is admitted for chronic colonic ileus. Patient examined at the bedside. Patient underwent colostomy. POD #6. Ostomy does not have stool in it this morning. Nursing reports no stool overnight or yesterday afternoon. She continues to complain of abdominal pain. She is taking percocet and extended release morphine. Abdominal xray reveals fecal stasis. PHYSICAL EXAM: VITAL SIGNS: Currently stable. GENERAL: Well-developed in no acute distress. HEENT: No sclera icterus. Extraocular movements grossly intact. Moist buccal mucosa. Head is atraumatic, normocephalic. Hears conversational speech. No nasal drainage. NECK: Supple without lymphadenopathy. CHEST: Non-labored respirations and equal bilateral excursions. CARDIOVASCULAR: Regular rate with regular rhythm. Palpable 2+ radial pulses. ABDOMEN: Soft. Dressing intact. Ostomy intact with serous output. MUSCULOSKELETAL: No clubbing, cyanosis or edema. NEUROLOGIC: No focal or lateralizing signs. Cranial nerves II through XII grossly intact. PSYCH: Appropriate affect. Alert and oriented to person, place and time. SKIN: Well perfused. Good skin turgor. ASSESSMENT: 1. Chronic colonic ileus 2. S/P colostomy 3. Chronic pain PLAN: 1. Lactulose 2. Await stool from ostomy and then may discharge to [facility] Nurse practitioner note has been reviewed by physician. Signing provider agrees with the documented findings, assessment, and plan of care. Objective - Vital Signs Vital signs: Vital Signs Temp 98.7 F 08/29/18 07:00 Pulse 73 08/29/18 07:00 Resp 16 08/29/18 07:00 BP 127/69 08/29/18 07:00 Pulse Ox 99 08/29/18 07:00 Intake & Output 08/28/18 08/29/18 08/29/18 18:59 06:59 18:59 Intake Total 237 1600 835 Output Total 1200 850 Balance -963 750 835 Weight 78.471 kg Intake: Intake, IV Titration 1200 Amount Lactated Ringers 1,000 ml 1200 @ 75 mls/hr IV .[id number] GUALBERTO Rx#:[id number] Oral 237 400 835 Output: Urine 1200 850 Other: Voiding Method Indwelling Catheter Indwelling Catheter Indwelling Catheter - Labs CBC & Chem 7: 08/29/18 07:06 08/29/18 07:06 Labs: Abnormal Lab Results - Last 24 Hours (Table) 08/28/18 08/28/18 08/28/18 Range/Units 12:05 16:34 21:15 RBC (3.80-5.40) m/uL Hgb (11.4-16.0) gm/dL Hct (34.0-46.0) % MCHC (31.0-37.0) g/dL RDW (11.5-15.5) % Chloride (98-107) mmol/L BUN (7-17) mg/dL Glucose (74-99) mg/dL POC Glucose (mg/dL) 150 H 153 H 189 H (75-99) mg/dL 08/29/18 08/29/18 08/29/18 Range/Units 07:06 07:06 07:36 RBC 2.64 L (3.80-5.40) m/uL Hgb 7.1 L (11.4-16.0) gm/dL Hct 23.6 L (34.0-46.0) % MCHC 30.0 L (31.0-37.0) g/dL RDW 17.3 H (11.5-15.5) % Chloride 111 H (98-107) mmol/L BUN 24 H (7-17) mg/dL Glucose 112 H (74-99) mg/dL POC Glucose (mg/dL) 122 H (75-99) mg/dL Microbiology - Last 24 Hours (Table) 08/25/18 11:45 Blood Culture - Preliminary Blood No Growth after 72 hours
[2018-08-29 11:45] LABS: Glucose,Whole Blood 156 mg/dL (75-99)
[2018-08-29 15:04] LABS: Glucose,Whole Blood 181 mg/dL (75-99)
[2018-08-29 17:32] LABS: Glucose,Whole Blood 168 mg/dL (75-99)
[2018-08-29 20:16] LABS: Glucose,Whole Blood 124 mg/dL (75-99)
[2018-08-29] MEDS: ATORVASTATIN 40 MG TAB PO SCH (22:01)
[2018-08-30] MEDS: MORPHINE SULFATE ER 15 MG TABLET PO SCH ×3 (04:43→20:56)
[2018-08-30] MEDS: LACTATED RINGERS 1,000 ML IV SCH ×2 (04:45→17:38)
[2018-08-30] MEDS: oxyCODONE-APAP 10-325MG 1 EACH TAB PO PRN ×3 (06:18→20:55)
[2018-08-30 07:53] LABS: Glucose,Whole Blood 135 mg/dL (75-99)
[2018-08-30] MEDS: HEPARIN SODIUM,PORCINE 5,000 UNIT/ML 1 ML VIAL SQ SCH ×3 (08:59→23:55)
[2018-08-30] MEDS: MEROPENEM 1 GM in SODIUM CHLORIDE 0.9% 100 ML IVPB SCH ×3 (08:59→23:55)
[2018-08-30] MEDS: INSULIN ASPART 100 UNIT/ML 1 ML 10 ML VIAL SQ SCH ×4 (08:59→20:54)
[2018-08-30] MEDS: SENNOSIDES 8.6 MG TAB PO SCH ×2 (09:00→20:56)
[2018-08-30] MEDS: ACETAMINOPHEN TAB 325 MG TAB PO PRN (09:00)
[2018-08-30] MEDS: LISINOPRIL 5 MG TAB PO SCH (09:00)
[2018-08-30] MEDS: OXYBUTYNIN 10 MG TAB.ER.24 PO SCH (09:00)
[2018-08-30] MEDS: amLODIPine 2.5 MG TAB PO SCH (09:00)
[2018-08-30] MEDS: PANTOPRAZOLE 40 MG/10 ML VIAL IVP SCH (09:00)
[2018-08-30] MEDS: MAGNESIUM OXIDE 400 MG TAB PO SCH ×2 (09:00→20:56)
[2018-08-30] MEDS: LACTULOSE 20 GM/30 ML CUP PO SCH ×3 (09:01→20:56)
[2018-08-30] MEDS: IPRATROPIUM-ALBUTEROL 3 ML NEB INHALATION SCH ×4 (09:19→21:00)
[2018-08-30 12:44] LABS: Glucose,Whole Blood 128 mg/dL (75-99)
[2018-08-30 17:23] LABS: Glucose,Whole Blood 121 mg/dL (75-99)
[2018-08-30 20:28] LABS: Glucose,Whole Blood 179 mg/dL (75-99)
[2018-08-30] MEDS: ATORVASTATIN 40 MG TAB PO SCH (20:56)
[2018-08-31] MEDS: oxyCODONE-APAP 10-325MG 1 EACH TAB PO PRN ×2 (03:18→08:48)
[2018-08-31] MEDS: MORPHINE SULFATE ER 15 MG TABLET PO SCH ×2 (03:23→11:48)
[2018-08-31] MEDS: LACTATED RINGERS 1,000 ML IV SCH (04:40)
--- NOTE | 2018-08-31 06:54 | P.PN ---
Subjective Progress Note Date: 08/29/18 59-year-old female with a known history of constipation in spite of daily bowel movements came in for the severe constipation: Neck obstruction patient underwent the diagnostic and therapy the colonoscopy ration did have a good bowel movement. Patient's abdomen is soft is still having sluggish bowel sounds area at patient denied any fever chills nausea vomiting abdominal pain at this time. Patient does have bilateral leg ulcers for which patient will receive local wound care and the infectious disease was consulted regarding this patient does have significant weakness which is chronic in both legs and atrophy of both lower limb muscles. Patient is chronically bedbound uses wheelchair and a long-term resident. 08/19/2018 No overnight events patient did not move her bowels name patient will undergo therapeutic colonoscopy today was probably 08/20/2018 Patient's abdomen is relatively much softer now had a big bowel movement last night. Abdominal x-ray will be obtained tomorrow depending on that decision regarding colonoscopy will be made tomorrow 08/21/2018 patient just returning from abdominal x-ray. No bowel movement or flatus today. States she had a bowel movement yesterday. Declined her breakfast. Denies nausea or vomiting. Reporting some abdominal pain mostly in the right lower quadrant. Denies leg pain. Denies chest pain, palpitations or increasing shortness of breath. Afebrile. Maintained on antibiotics of Cipro as per infectious disease. 08/22/2018 abdominal x-ray yesterday reported persistent marked distention of the colon with dilated small bowel loops, particular dilation of the sigmoid colon similar to prior exam, colonic ileus, colonic obstruction or volvulus. Soapsuds enema administered yesterday, reports large bowel movement today. Patient is scheduled for colostomy tomorrow. Afebrile 08/23/2018 NPO, scheduled for colostomy today. T-max 99.5.CL 115, change IVs to D5/W. 08/24/2018 Colonic ileus, underwent OR yesterday, megacolon discovered, status post subtotal colectomy, with colostomy created. Significant pain. Epidural leaking, adjusted by anesthesia further, continues to leak; being discontinued. Recently receiving morphine IV push as per anesthesia. Ostomy functioning with small amount of serosanguineous drainage, without flatus. Hemoglobin 10. NPO,Blood sugars controlled. Maintaining O2 sats in the high 90s on room air. T-max 100.3. 08/25/2018 Patient is presently on meropenem appears to have ESBL E. coli in the urine as staph epidermidis and the wound culture is a contamination. Patient is comparing of severe abdominal pain. 08/26/2018 No overnight events patient pain is better patient did have bowel movement in 2 the colostomy. 08/27/2018 No overnight events patient is still complaining of pain in the colostomy site area. 08/28/2018 maintained on IV antibiotics of Merrem as per infectious disease. T- max 100. Preliminary repeat blood cultures negative. Despite lidocaine patches , Dilaudid, [place], continues to have significant generalized pain, 10 out of 10 , states no relief with current pain med regime. Pain management services notified with further recommendations pending.Tolerating dysphagia level III diet with no nausea or vomiting. 08/29/2018 functioning yesterday morning, ostomy appliance change with no further ostomy functioning since. Radiology film reporting fecal stasis. Lactulose administered. Generalized pain. Reevaluated by anesthesia with pain management further adjusted. Afebrile. Maintained on IV antibiotics as per ID. Constitutional: Denied any fatigue ,positive generalized discomfort/pain. Cardio vascular: denied any chest pain, palpitations Gastrointestinal denied any nausea vomiting, surgical pain Pulmonary: Denied any shortness of breath cough Neurologic denied any new focal deficits Medications have been reviewed and adjusted accordingly. Objective - Vital Signs Vital signs: Vital Signs Temp 99.0 F 08/29/18 15:00 Pulse 80 08/29/18 15:37 Resp 16 08/29/18 15:37 BP 122/63 08/29/18 15:00 Pulse Ox 97 08/29/18 15:00 Intake & Output 08/28/18 08/29/18 08/29/18 18:59 06:59 18:59 Intake Total 237 1600 1910 Output Total 8287 568 8583 Balance -963 750 910 Weight 78.471 kg Intake: Intake, IV Titration 1200 625 Amount Lactated Ringers 1,000 ml 1200 525 @ 75 mls/hr IV .[id number] GUALBERTO Rx#:[id number] Meropenem 1 gm In Sodium 100 Chloride 0.9% 100 ml @ 200 mls/hr IVPB Q8HR GUALBERTO Rx#:[id number] Oral 173 545 9660 Output: Urine 7549 017 5509 Other: Voiding Method Indwelling Catheter Indwelling Catheter Indwelling Catheter - Exam GENERAL: The patient is alert and oriented x3, chronic pain in addition to surgical discomfort HEENT: Pupils are round and equally reacting to light. EOMI. No scleral icterus. No conjunctival pallor. Normocephalic, atraumatic. Oral mucosa moist CARDIOVASCULAR: S1 and S2 present. No murmurs, rubs, or gallops. PULMONARY: Chest is clear to auscultation, no wheezing , fine scattered crackles. ABDOMEN: Soft, mildly distended, status post surgery, colostomy currently without flatus or stool EXTREMITIES: No cyanosis, clubbing, or pedal edema. NEUROLOGICAL: Gross neurological examination did not reveal any new focal deficits. Chronic bilateral lower limb weakness SKIN: Left leg dressings clean dry and intact. - Labs CBC & Chem 7: 08/29/18 07:06 08/29/18 07:06 Labs: Abnormal Lab Results - Last 24 Hours (Table) 08/28/18 08/28/18 08/29/18 Range/Units 16:34 21:15 07:06 RBC 2.64 L (3.80-5.40) m/uL Hgb 7.1 L (11.4-16.0) gm/dL Hct 23.6 L (34.0-46.0) % MCHC 30.0 L (31.0-37.0) g/dL RDW 17.3 H (11.5-15.5) % Chloride (98-107) mmol/L BUN (7-17) mg/dL Glucose (74-99) mg/dL POC Glucose (mg/dL) 153 H 189 H (75-99) mg/dL 08/29/18 08/29/18 08/29/18 Range/Units 07:06 07:36 11:33 RBC (3.80-5.40) m/uL Hgb (11.4-16.0) gm/dL Hct (34.0-46.0) % MCHC (31.0-37.0) g/dL RDW (11.5-15.5) % Chloride 111 H (98-107) mmol/L BUN 24 H (7-17) mg/dL Glucose 112 H (74-99) mg/dL POC Glucose (mg/dL) 122 H 156 H (75-99) mg/dL 08/29/18 Range/Units 14:50 RBC (3.80-5.40) m/uL Hgb (11.4-16.0) gm/dL Hct (34.0-46.0) % MCHC (31.0-37.0) g/dL RDW (11.5-15.5) % Chloride (98-107) mmol/L BUN (7-17) mg/dL Glucose (74-99) mg/dL POC Glucose (mg/dL) 181 H (75-99) mg/dL Microbiology - Last 24 Hours (Table) 08/25/18 11:45 Blood Culture - Preliminary Blood No Growth after 96 hours Assessment and Plan Assessment: -Chronic absorption, severe constipation; Chronic colonic ileus, megacolon, status post subtotal colectomy, with colostomy. -Type 2 diabetes mellitus -Acute UTI with E. coli -Hyperlipidemia -Hypertension -bilateral lower limb venous ulcerations -Fibromyalgia -History of DVT in the past not on anti-correlation at this time -History of SVT patient is presently sinus rhythm -Chronic venous stasis and chronic deconditioning. -Hyperchloremia -Chronic pain Plan: Continue on current medication regime ,monitoring and symptomatic treatment. Recently received lactulose, monitoring for results. Continue on antibiotics as per ID with discharge antibiotic regimen noted. Pain management adjusted further as per anesthesia. Aggressive pulmonary toileting with incentive spirometer reinforced. Discharge planning in progress for subacute rehab tomorrow as per surgery. Prognosis guarded given multiple complex medical issues. The impression and plan of care has been dictated as directed. : I performed a history and examination of this patient, discussed the same with the dictator. I agree with the dictator's note ,documented as a scribe. Any additional findings or plans will be noted.
--- NOTE | 2018-08-31 07:07 | P.DS ---
Providers Date of admission: 08/17/18 19:59 Expected date of discharge: 08/30/18 Attending physician: Tavo Goel Consults: 08/17/18 20:02 Consult Physician Routine Consulting Provider: Gaurav Latif Consult Reason/Comments: Medical management Do you want consulting provider notified?: Yes 08/17/18 22:29 Consult Physician Routine Consulting Provider: Clayton Bhatia Consult Reason/Comments: wound care Do you want consulting provider notified?: Yes, Notify in am 08/24/18 07:37 Consult Physician Routine Consulting Provider: [facility] Consult Reason/Comments: pain management/pain clinic Do you want consulting provider notified?: Yes Primary care physician: [facility] Hospital Course: This is a 59-year-old female who's had issues with 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 Patient was admitted to the hospital insufflated underwent subtotal colectomy for colonic ileus and megacolon. Please see hospital chart for details. Procedures: Subtotal colectomy Patient Condition at Discharge: Stable Plan - Discharge Summary Discharge Rx Participant: Yes New Discharge Prescriptions: New amLODIPine [Norvasc] 2.5 mg PO DAILY tab INSULIN LISPRO (HumaLOG) [humaLOG] 0 unit SQ ACHS #1 vial Ipratropium-Albuterol Nebulize [Duoneb 0.5 mg-3 mg/3 ml Soln] 3 ml INHALATION RT-QID ampul.neb Ipratropium-Albuterol Nebulize [Duoneb 0.5 mg-3 mg/3 ml Soln] 3 ml INHALATION Q4H PRN ampul.neb PRN Reason: Shortness Of Breath Or Wheezing Lactulose [Cephulac] 30 gm PO TID ml Morphine Sulfate ER [Ms Contin] 15 mg PO Q8H #9 tablet oxyCODONE-APAP 10-325MG [Percocet 10-325 mg] 1 each PO Q6H PRN #12 tab PRN Reason: Moderate Pain Continue Atorvastatin [Lipitor] 40 mg PO HS Sennosides [Senokot] 17.2 mg PO BID Acetaminophen Tab [Tylenol] 650 mg PO Q6H PRN PRN Reason: Fever And/ Or Pain Bisacodyl [Dulcolax] 10 mg RECTAL DAILY PRN PRN Reason: Constipation rOPINIRole HCL [Requip] 0.5 mg PO HS Oxybutynin Chloride [Oxybutynin Chloride ER] 10 mg PO DAILY Multivitamins, Thera [Multivitamin (formulary)] 1 tab PO HS Calcium Carbonate/Vitamin D3 [Calcium 500-Vit D3 200 Tablet] 1 tab PO HS Biotin 300 mcg PO DAILY Magnesium Oxide [Mag-Ox] 400 mg PO BID Omeprazole 20 mg PO DAILY Loratadine [Claritin] 10 mg PO DAILY Polyethylene Glycol 3350 [Miralax] 17 gm PO HS PRN PRN Reason: Constipation Lisinopril [Zestril] 5 mg PO DAILY Discontinued metFORMIN HCL [Glucophage] 500 mg PO BID Potassium Chloride ER [K-Dur 20] 20 meq PO HS tab.er.prt Ipratropium-Albuterol Nebulize [Duoneb 0.5 mg-3 mg/3 ml Soln] 3 ml INHALATION RT-QID #1 ampul.neb HYDROcodone/APAP 5-325MG [Kerrick 5-325] 1 tab PO Q4HR PRN PRN Reason: Pain Mylanta Max Strength Susp 30 ml PO Q6HR PRN PRN Reason: Indigestion Discharge Medication List Atorvastatin [Lipitor] 40 mg PO HS 08/30/15 [History] Sennosides [Senokot] 17.2 mg PO BID 05/22/17 [History] Acetaminophen Tab [Tylenol] 650 mg PO Q6H PRN 07/29/17 [History] Bisacodyl [Dulcolax] 10 mg RECTAL DAILY PRN 11/25/17 [History] Biotin 300 mcg PO DAILY 01/05/18 [History] Calcium Carbonate/Vitamin D3 [Calcium 500-Vit D3 200 Tablet] 1 tab PO HS [History] Multivitamins, Thera [Multivitamin (formulary)] 1 tab PO HS 01/05/18 [History] Oxybutynin Chloride [Oxybutynin Chloride ER] 10 mg PO DAILY 01/05/18 [History] rOPINIRole HCL [Requip] 0.5 mg PO HS 01/05/18 [History] Magnesium Oxide [Mag-Ox] 400 mg PO BID 02/13/18 [History] Omeprazole 20 mg PO DAILY 02/13/18 [History] Loratadine [Claritin] 10 mg PO DAILY 06/10/18 [History] Lisinopril [Zestril] 5 mg PO DAILY 08/17/18 [History] Polyethylene Glycol 3350 [Miralax] 17 gm PO HS PRN 08/17/18 [History] INSULIN LISPRO (HumaLOG) [humaLOG] 0 unit SQ ACHS #1 vial 08/30/18 [Rx] Ipratropium-Albuterol Nebulize [Duoneb 0.5 mg-3 mg/3 ml Soln] 3 ml INHALATION Q4H PRN ampul.neb 08/30/18 [Rx] Ipratropium-Albuterol Nebulize [Duoneb 0.5 mg-3 mg/3 ml Soln] 3 ml INHALATION RT -QID ampul.neb 08/30/18 [Rx] Lactulose [Cephulac] 30 gm PO TID ml 08/30/18 [Rx] Morphine Sulfate ER [Ms Contin] 15 mg PO Q8H #9 tablet 08/30/18 [Rx] amLODIPine [Norvasc] 2.5 mg PO DAILY tab 08/30/18 [Rx] oxyCODONE-APAP 10-325MG [Percocet 10-325 mg] 1 each PO Q6H PRN #12 tab 08/30/18 [Rx] Follow up Appointment(s)/Referral(s): Carlo Frederick MD [Primary Care Provider] - 3 Days [facility] [place], [NON-STAFF] - As Needed Tavo Goel MD [STAFF PHYSICIAN] - 09/06/18 10:00 am Patient Instructions/Handouts: Colostomy Care (GEN), Megacolon (GEN) Activity/Diet/Wound Care/Special Instructions: [facility] Antibiotics as per infectious disease cbc, bmp in 3 days
[2018-08-31 07:21] VITALS: BP 120/77; RESP 18; TEMP 98.9
[2018-08-31 07:27] LABS: Glucose,Whole Blood 114 mg/dL (75-99)
[2018-08-31] MEDS ORDERED: PANTOPRAZOLE 40 MG TABLET PO SCH (07:30)
[2018-08-31] MEDS: amLODIPine 2.5 MG TAB PO SCH (08:48)
[2018-08-31] MEDS: MAGNESIUM OXIDE 400 MG TAB PO SCH (08:48)
[2018-08-31] MEDS: LISINOPRIL 5 MG TAB PO SCH (08:48)
[2018-08-31] MEDS: OXYBUTYNIN 10 MG TAB.ER.24 PO SCH (08:48)
[2018-08-31] MEDS: SENNOSIDES 8.6 MG TAB PO SCH (08:49)
[2018-08-31] MEDS: HEPARIN SODIUM,PORCINE 5,000 UNIT/ML 1 ML VIAL SQ SCH (08:49)
[2018-08-31] MEDS: INSULIN ASPART 100 UNIT/ML 1 ML 10 ML VIAL SQ SCH (08:49)
[2018-08-31] MEDS: IPRATROPIUM-ALBUTEROL 3 ML NEB INHALATION SCH ×2 (09:16→12:28)
[2018-08-31 09:30] VITALS: PULSE 84
[2018-08-31 10:37] LABS: Anisocytosis Slight; Basophils % (A) 0 %; Eosinophils # (A) 0.5 k/uL (0-0.7); Eosinophils % (A) 9 %; HCT 25.7 % (34.0-46.0); HGB 7.4 gm/dL (11.4-16.0); Hypochromasia Marked; Lymphocytes # (A) 1.9 k/uL (1.0-4.8); Lymphocytes % (A) 34 %; MCH 26.2 pg (25.0-35.0); MCHC 28.9 g/dL (31.0-37.0); MCV 90.5 fL (80.0-100.0); Mean Platelet Volume 7.3; Monocytes # (A) 0.3 k/uL (0-1.0); Monocytes % (A) 5 %; Neutrophils # (A) 2.7 k/uL (1.3-7.7); Neutrophils % (A) 50 %; Platelet Count 293 k/uL (150-450); RBC 2.84 m/uL (3.80-5.40); RDW 17.2 % (11.5-15.5); WBC 5.5 k/uL (3.8-10.6)
[2018-08-31 11:06] LABS: Anion Gap 7 mmol/L; Blood Urea Nitrogen 28 mg/dL (7-17); Calcium 8.4 mg/dL (8.4-10.2); Carbon Dioxide 24 mmol/L (22-30); Chloride 108 mmol/L (98-107); Glucose 150 mg/dL (74-99); Potassium 4.8 mmol/L (3.5-5.1); Sodium 139 mmol/L (137-145)
[2018-08-31] MEDS: MEROPENEM 1 GM in SODIUM CHLORIDE 0.9% 100 ML IVPB SCH (11:15)
[2018-08-31] MEDS: LACTULOSE 20 GM/30 ML CUP PO SCH (11:56)
[2018-08-31 12:13] LABS: Glucose,Whole Blood 163 mg/dL (75-99)
--- NOTE | 2018-08-31 17:59 | P.PN ---
Subjective Progress Note Date: 08/30/18 59-year-old female with a known history of constipation in spite of daily bowel movements came in for the severe constipation: Neck obstruction patient underwent the diagnostic and therapy the colonoscopy ration did have a good bowel movement. Patient's abdomen is soft is still having sluggish bowel sounds area at patient denied any fever chills nausea vomiting abdominal pain at this time. Patient does have bilateral leg ulcers for which patient will receive local wound care and the infectious disease was consulted regarding this patient does have significant weakness which is chronic in both legs and atrophy of both lower limb muscles. Patient is chronically bedbound uses wheelchair and a halfway resident. 08/19/2018 No overnight events patient did not move her bowels name patient will undergo therapeutic colonoscopy today was probably 08/20/2018 Patient's abdomen is relatively much softer now had a big bowel movement last night. Abdominal x-ray will be obtained tomorrow depending on that decision regarding colonoscopy will be made tomorrow 08/21/2018 patient just returning from abdominal x-ray. No bowel movement or flatus today. States she had a bowel movement yesterday. Declined her breakfast. Denies nausea or vomiting. Reporting some abdominal pain mostly in the right lower quadrant. Denies leg pain. Denies chest pain, palpitations or increasing shortness of breath. Afebrile. Maintained on antibiotics of Cipro as per infectious disease. 08/22/2018 abdominal x-ray yesterday reported persistent marked distention of the colon with dilated small bowel loops, particular dilation of the sigmoid colon similar to prior exam, colonic ileus, colonic obstruction or volvulus. Soapsuds enema administered yesterday, reports large bowel movement today. Patient is scheduled for colostomy tomorrow. Afebrile 08/23/2018 NPO, scheduled for colostomy today. T-max 99.5.CL 115, change IVs to D5/W. 08/24/2018 Colonic ileus, underwent OR yesterday, megacolon discovered, status post subtotal colectomy, with colostomy created. Significant pain. Epidural leaking, adjusted by anesthesia further, continues to leak; being discontinued. Recently receiving morphine IV push as per anesthesia. Ostomy functioning with small amount of serosanguineous drainage, without flatus. Hemoglobin 10. NPO,Blood sugars controlled. Maintaining O2 sats in the high 90s on room air. T-max 100.3. 08/25/2018 Patient is presently on meropenem appears to have ESBL E. coli in the urine as staph epidermidis and the wound culture is a contamination. Patient is comparing of severe abdominal pain. 08/26/2018 No overnight events patient pain is better patient did have bowel movement in 2 the colostomy. 08/27/2018 No overnight events patient is still complaining of pain in the colostomy site area. 08/28/2018 maintained on IV antibiotics of Merrem as per infectious disease. T- max 100. Preliminary repeat blood cultures negative. Despite lidocaine patches , Dilaudid, [place], continues to have significant generalized pain, 10 out of 10 , states no relief with current pain med regime. Pain management services notified with further recommendations pending.Tolerating dysphagia level III diet with no nausea or vomiting. 08/29/2018 functioning yesterday morning, ostomy appliance change with no further ostomy functioning since. Radiology film reporting fecal stasis. Lactulose administered. Generalized pain. Reevaluated by anesthesia with pain management further adjusted. Afebrile. Maintained on IV antibiotics as per ID. 08/30/18 chronic pain, mildly improved. Afebrile. T-max 99.9. Maintained on IV antibiotics as per infectious disease. Received lactulose yesterday, Functioning ostomy. Constitutional: Denied any fatigue ,positive generalized discomfort/pain. Cardio vascular: denied any chest pain, palpitations Gastrointestinal denied any nausea vomiting, surgical pain Pulmonary: Denied any shortness of breath cough Neurologic denied any new focal deficits Medications have been reviewed and adjusted accordingly. Objective - Vital Signs Vital signs: Vital Signs Temp 98.9 F 08/31/18 07:05 Pulse 84 08/31/18 09:30 Resp 18 08/31/18 07:05 BP 120/77 08/31/18 07:05 Pulse Ox 100 08/31/18 07:05 Intake & Output 08/30/18 08/31/18 08/31/18 18:59 06:59 18:59 Intake Total 1400 Output Total 2200 1900 Balance -800 -1900 Intake: Intake, IV Titration 800 Amount Lactated Ringers 1,000 ml 600 @ 75 mls/hr IV .[id number] [facility] Rx#:[id number] Meropenem 1 gm In Sodium 200 Chloride 0.9% 100 ml @ 200 mls/hr IVPB Q8HR [facility] Rx#:[id number] Oral 600 Output: Urine 600 1500 Stool 1600 400 Other: Voiding Method Indwelling Catheter Indwelling Catheter Indwelling Catheter # Bowel Movements 2 - Exam GENERAL: The patient is alert and oriented x3, chronic pain appears to have improved minimally HEENT: Pupils are round and equally reacting to light. EOMI. No scleral icterus. No conjunctival pallor. Normocephalic, atraumatic. Oral mucosa moist CARDIOVASCULAR: S1 and S2 present. No murmurs, rubs, or gallops. PULMONARY: Chest is clear to auscultation, no wheezing, no rhonchi, bilateral finding diffuse crackles ABDOMEN: Soft, mildly distended, status post surgery, colostomy currently with stool, flatus EXTREMITIES: No cyanosis, clubbing, or pedal edema. NEUROLOGICAL: Gross neurological examination did not reveal any new focal deficits. Chronic bilateral lower limb weakness SKIN: Left leg dressings clean dry and intact. - Labs CBC & Chem 7: 08/31/18 09:41 08/31/18 09:41 Labs: Abnormal Lab Results - Last 24 Hours (Table) 08/30/18 08/31/18 08/31/18 Range/Units 20:15 07:03 09:41 RBC 2.84 L (3.80-5.40) m/uL Hgb 7.4 L (11.4-16.0) gm/dL Hct 25.7 L (34.0-46.0) % MCHC 28.9 L (31.0-37.0) g/dL RDW 17.2 H (11.5-15.5) % Chloride (98-107) mmol/L BUN (7-17) mg/dL Glucose (74-99) mg/dL POC Glucose (mg/dL) 179 H 114 H (75-99) mg/dL 08/31/18 08/31/18 Range/Units 09:41 11:38 RBC (3.80-5.40) m/uL Hgb (11.4-16.0) gm/dL Hct (34.0-46.0) % MCHC (31.0-37.0) g/dL RDW (11.5-15.5) % Chloride 108 H (98-107) mmol/L BUN 28 H (7-17) mg/dL Glucose 150 H (74-99) mg/dL POC Glucose (mg/dL) 163 H (75-99) mg/dL Microbiology - Last 24 Hours (Table) 08/25/18 11:45 Blood Culture - Final Blood No Growth after 144 hours Assessment and Plan Assessment: -Chronic absorption, severe constipation; Chronic colonic ileus, megacolon, status post subtotal colectomy, with colostomy. -Type 2 diabetes mellitus -Acute UTI with ecoli -Hyperlipidemia -Hypertension -bilateral lower limb venous ulcerations -Fibromyalgia -History of DVT in the past not on anti-correlation at this time -History of SVT patient is presently sinus rhythm -Chronic venous stasis and chronic deconditioning. -Hyperchloremia -Chronic pain Plan: Continue on current medication regime ,monitoring and symptomatic treatment. Continue on antibiotics as per ID with discharge antibiotic regimen noted. Aggressive pulmonary toileting with incentive spirometer reinforced. Pain management. Discharge planning in progress for subacute rehab tomorrow as per surgery. The impression and plan of care has been dictated as directed. : I performed a history and examination of this patient, discussed the same with the dictator. I agree with the dictator's note ,documented as a scribe. Any additional findings or plans will be noted.
--- NOTE | 2018-08-31 18:04 | P.PN ---
Subjective Progress Note Date: 08/31/18 59-year-old female with a known history of constipation in spite of daily bowel movements came in for the severe constipation: Neck obstruction patient underwent the diagnostic and therapy the colonoscopy ration did have a good bowel movement. Patient's abdomen is soft is still having sluggish bowel sounds area at patient denied any fever chills nausea vomiting abdominal pain at this time. Patient does have bilateral leg ulcers for which patient will receive local wound care and the infectious disease was consulted regarding this patient does have significant weakness which is chronic in both legs and atrophy of both lower limb muscles. Patient is chronically bedbound uses wheelchair and a residential resident. 08/19/2018 No overnight events patient did not move her bowels name patient will undergo therapeutic colonoscopy today was probably 08/20/2018 Patient's abdomen is relatively much softer now had a big bowel movement last night. Abdominal x-ray will be obtained tomorrow depending on that decision regarding colonoscopy will be made tomorrow 08/21/2018 patient just returning from abdominal x-ray. No bowel movement or flatus today. States she had a bowel movement yesterday. Declined her breakfast. Denies nausea or vomiting. Reporting some abdominal pain mostly in the right lower quadrant. Denies leg pain. Denies chest pain, palpitations or increasing shortness of breath. Afebrile. Maintained on antibiotics of Cipro as per infectious disease. 08/22/2018 abdominal x-ray yesterday reported persistent marked distention of the colon with dilated small bowel loops, particular dilation of the sigmoid colon similar to prior exam, colonic ileus, colonic obstruction or volvulus. Soapsuds enema administered yesterday, reports large bowel movement today. Patient is scheduled for colostomy tomorrow. Afebrile 08/23/2018 NPO, scheduled for colostomy today. T-max 99.5.CL 115, change IVs to D5/W. 08/24/2018 Colonic ileus, underwent OR yesterday, megacolon discovered, status post subtotal colectomy, with colostomy created. Significant pain. Epidural leaking, adjusted by anesthesia further, continues to leak; being discontinued. Recently receiving morphine IV push as per anesthesia. Ostomy functioning with small amount of serosanguineous drainage, without flatus. Hemoglobin 10. NPO,Blood sugars controlled. Maintaining O2 sats in the high 90s on room air. T-max 100.3. 08/25/2018 Patient is presently on meropenem appears to have ESBL E. coli in the urine as staph epidermidis and the wound culture is a contamination. Patient is comparing of severe abdominal pain. 08/26/2018 No overnight events patient pain is better patient did have bowel movement in 2 the colostomy. 08/27/2018 No overnight events patient is still complaining of pain in the colostomy site area. 08/28/2018 maintained on IV antibiotics of Merrem as per infectious disease. T- max 100. Preliminary repeat blood cultures negative. Despite lidocaine patches , Dilaudid, [place], continues to have significant generalized pain, 10 out of 10 , states no relief with current pain med regime. Pain management services notified with further recommendations pending.Tolerating dysphagia level III diet with no nausea or vomiting. 08/29/2018 functioning yesterday morning, ostomy appliance change with no further ostomy functioning since. Radiology film reporting fecal stasis. Lactulose administered. Generalized pain. Reevaluated by anesthesia with pain management further adjusted. Afebrile. Maintained on IV antibiotics as per ID. 08/30/18 chronic pain, mildly improved. Afebrile. T-max 99.9. Maintained on IV antibiotics as per infectious disease. Received lactulose yesterday, Functioning ostomy. 08/31/2018 pain meds have been adjusted as per anesthesia/pain management services. Blood sugars controlled. Functioning ostomy. Significant clinical improvement. Antibiotics as per ID. Constitutional: Denied any fatigue ,positive generalized discomfort/pain. Cardio vascular: denied any chest pain, palpitations Gastrointestinal denied any nausea vomiting, surgical pain Pulmonary: Denied any shortness of breath cough Neurologic denied any new focal deficits Medications have been reviewed and adjusted accordingly. Objective - Vital Signs Vital signs: Vital Signs Temp 98.9 F 08/31/18 07:05 Pulse 84 08/31/18 09:30 Resp 18 08/31/18 07:05 BP 120/77 08/31/18 07:05 Pulse Ox 100 08/31/18 07:05 Intake & Output 08/30/18 08/31/18 08/31/18 18:59 06:59 18:59 Intake Total 1400 Output Total 2200 1900 Balance -800 -1900 Intake: Intake, IV Titration 800 Amount Lactated Ringers 1,000 ml 600 @ 75 mls/hr IV .[id number] [facility] Rx#:[id number] Meropenem 1 gm In Sodium 200 Chloride 0.9% 100 ml @ 200 mls/hr IVPB Q8HR [facility] Rx#:[id number] Oral 600 Output: Urine 600 1500 Stool 1600 400 Other: Voiding Method Indwelling Catheter Indwelling Catheter Indwelling Catheter # Bowel Movements 2 - Labs CBC & Chem 7: 08/31/18 09:41 08/31/18 09:41 Labs: Abnormal Lab Results - Last 24 Hours (Table) 08/30/18 08/31/18 08/31/18 Range/Units 20:15 07:03 09:41 RBC 2.84 L (3.80-5.40) m/uL Hgb 7.4 L (11.4-16.0) gm/dL Hct 25.7 L (34.0-46.0) % MCHC 28.9 L (31.0-37.0) g/dL RDW 17.2 H (11.5-15.5) % Chloride (98-107) mmol/L BUN (7-17) mg/dL Glucose (74-99) mg/dL POC Glucose (mg/dL) 179 H 114 H (75-99) mg/dL 08/31/18 08/31/18 Range/Units 09:41 11:38 RBC (3.80-5.40) m/uL Hgb (11.4-16.0) gm/dL Hct (34.0-46.0) % MCHC (31.0-37.0) g/dL RDW (11.5-15.5) % Chloride 108 H (98-107) mmol/L BUN 28 H (7-17) mg/dL Glucose 150 H (74-99) mg/dL POC Glucose (mg/dL) 163 H (75-99) mg/dL Microbiology - Last 24 Hours (Table) 08/25/18 11:45 Blood Culture - Final Blood No Growth after 144 hours Assessment and Plan Assessment: -Chronic absorption, severe constipation; Chronic colonic ileus, megacolon, status post subtotal colectomy, with colostomy. -Type 2 diabetes mellitus -Acute UTI with ecoli -Hyperlipidemia -Hypertension -bilateral lower limb venous ulcerations -Fibromyalgia -History of DVT in the past not on anti-coagulation at this time -History of SVT patient is presently sinus rhythm -Chronic venous stasis and chronic deconditioning. -Hyperchloremia -Chronic pain Plan: Continue on current medication regime ,monitoring and symptomatic treatment. Pain management, antibiotics as per ID. Aggressive pulmonary toileting with incentive spirometer reinforced. Discharge planning in progress for subacute rehab today as per surgery. The impression and plan of care has been dictated as directed. : I performed a history and examination of this patient, discussed the same with the dictator. I agree with the dictator's note ,documented as a scribe. Any additional findings or plans will be noted.
== END 2018-08-31 12:25 | DRG 330 ==
LOC: EC 14:23 → 4SSUR 19:59
PROVIDERS: ADMIT Surgery; ATTEND Surgery
PROC: 0DJD8ZZ Inspection of Lower Intestinal Tract, Via Natural or Artificial Opening Endoscopic (ICD-10-PCS; principal; 2018-08-18 07:30)
PROC: 0D1L0Z4 Bypass Transverse Colon to Cutaneous, Open Approach (ICD-10-PCS; 2018-08-23)
PROC: 0DTG0ZZ Resection of Left Large Intestine, Open Approach (ICD-10-PCS; 2018-08-23)
DX: K56.609 Unspecified intestinal obstruction, unspecified as to partial versus complete obstruction (principal); K59.39 Other megacolon; L03.116 Cellulitis of left lower limb; L97.919 Non-pressure chronic ulcer of unspecified part of right lower leg with unspecified severity; L97.922 Non-pressure chronic ulcer of unspecified part of left lower leg with fat layer exposed; N17.9 Acute kidney failure, unspecified; N39.0 Urinary tract infection, site not specified; B96.20 Unspecified Escherichia coli [E. coli] as the cause of diseases classified elsewhere; E11.22 Type 2 diabetes mellitus with diabetic chronic kidney disease; E66.01 Morbid (severe) obesity due to excess calories; E78.5 Hyperlipidemia, unspecified; E87.8 Other disorders of electrolyte and fluid balance, not elsewhere classified; F32.9 Major depressive disorder, single episode, unspecified; F41.9 Anxiety disorder, unspecified; G47.30 Sleep apnea, unspecified; G89.29 Other chronic pain; I12.9 Hypertensive chronic kidney disease with stage 1 through stage 4 chronic kidney disease, or unspecified chronic kidney disease; I48.91 Unspecified atrial fibrillation; I87.8 Other specified disorders of veins; L89.151 Pressure ulcer of sacral region, stage 1; M79.7 Fibromyalgia; N18.3 Chronic kidney disease, stage 3 (moderate); Z74.01 Bed confinement status; Z79.84 Long term (current) use of oral hypoglycemic drugs; Z79.891 Long term (current) use of opiate analgesic; Z79.899 Other long term (current) drug therapy; Z82.49 Family history of ischemic heart disease and other diseases of the circulatory system; Z83.3 Family history of diabetes mellitus; Z86.14 Personal history of Methicillin resistant Staphylococcus aureus infection; Z86.19 Personal history of other infectious and parasitic diseases; Z86.718 Personal history of other venous thrombosis and embolism; Z87.11 Personal history of peptic ulcer disease; Z87.891 Personal history of nicotine dependence; Z96.641 Presence of right artificial hip joint; Z96.652 Presence of left artificial knee joint; Z98.84 Bariatric surgery status; Z99.3 Dependence on wheelchair; Z90.49 Acquired absence of other specified parts of digestive tract; Z88.0 Allergy status to penicillin; Z88.7 Allergy status to serum and vaccine; Z88.1 Allergy status to other antibiotic agents; Z91.040 Latex allergy status
CPT/HCPCS: 36415; 45380; 74018; 74021; 74176; 80048; 80053; 81001; 83036; 83605; 85025; 85610; 85730; 86850; 86900; 86901; 87040; 87070; 87077; 87086; 87186; 87205; 88307; 94640; 94760; 96374; 99285

== ENCOUNTER 2018-09-09 11:44 | Inpatient (IN) | payer MEDICARE, OTHER ==
[2018-09-09] MEDS ORDERED: HYDROmorphone 1 MG/ML 1 ML SYRINGE IVP STA (13:03)
[2018-09-09] MEDS ORDERED: SODIUM CHLORIDE 0.9% 1,000 ML IV ONE (13:03)
--- NOTE | 2018-09-09 13:07 | ED ---
Skin/Abscess/FB HPI - General Chief complaint: Skin/Abscess/Foreign Body Stated complaint: decubitus, elevated temp Time Seen by Provider: 09/09/18 12:37 Source: patient, EMS, RN notes reviewed Mode of arrival: EMS Limitations: no limitations - History of Present Illness Initial comments: 67-year-old female presents emergency Department with chief complaint of decubitus ulcers source, fever. Patient states that the sore started while in the hospital at the last day. Patient states that she was recently was treated for urinary tract infection. Patient states that she always has pain from this. Patient is essentially non-mobile. Patient had fever at [facility] and was sent here to rule out sepsis secondary to fever, open worsening decubitus ulcers. - Related Data Home Medications Medication Instructions Recorded Confirmed Atorvastatin [Lipitor] 40 mg PO HS 08/30/15 08/17/18 Sennosides [Senokot] 17.2 mg PO BID 05/22/17 08/17/18 Acetaminophen Tab [Tylenol] 650 mg PO Q6H PRN 07/29/17 08/17/18 Bisacodyl [Dulcolax] 10 mg RECTAL DAILY PRN 11/25/17 08/17/18 Biotin 300 mcg PO DAILY 01/05/18 08/17/18 Calcium Carbonate/Vitamin D3 1 tab PO HS 01/05/18 08/17/18 [Calcium 500-Vit D3 200 Tablet] Multivitamins, Thera [Multivitamin 1 tab PO HS 01/05/18 08/17/18 (formulary)] Oxybutynin Chloride [Oxybutynin 10 mg PO DAILY 01/05/18 08/17/18 Chloride ER] rOPINIRole HCL [Requip] 0.5 mg PO HS 01/05/18 08/17/18 Magnesium Oxide [Mag-Ox] 400 mg PO BID 02/13/18 08/17/18 Omeprazole 20 mg PO DAILY 02/13/18 08/17/18 Loratadine [Claritin] 10 mg PO DAILY 06/10/18 08/17/18 Lisinopril [Zestril] 5 mg PO DAILY 08/17/18 08/17/18 Polyethylene Glycol 3350 [Miralax] 17 gm PO HS PRN 08/17/18 08/17/18 Previous Rx's Medication Instructions Recorded INSULIN LISPRO (HumaLOG) [humaLOG] 0 unit SQ ACHS #1 vial 08/30/18 Ipratropium-Albuterol Nebulize 3 ml INHALATION Q4H PRN ampul.neb 08/30/18 [Duoneb 0.5 mg-3 mg/3 ml Soln] Ipratropium-Albuterol Nebulize 3 ml INHALATION RT-QID ampul.neb 08/30/18 [Duoneb 0.5 mg-3 mg/3 ml Soln] Lactulose [Cephulac] 30 gm PO TID ml 08/30/18 Morphine Sulfate ER [Ms Contin] 15 mg PO Q8H #9 tablet 08/30/18 amLODIPine [Norvasc] 2.5 mg PO DAILY tab 08/30/18 oxyCODONE-APAP 10-325MG [Percocet 1 each PO Q6H PRN #12 tab 08/30/18 10-325 mg] Moxifloxacin HCl 400 mg PO DAILY #7 tab 08/31/18 Allergies Allergy/AdvReac Type Severity Reaction Status Date / Time adhesive tape Allergy Severe Rash/Hives Verified 09/09/18 11:47 cephalexin monohydrate Allergy Severe Rash/Hives Verified 09/09/18 11:47 [From Keflex] influenza virus vaccine, Allergy Severe Anaphylaxis Verified 09/09/18 11:47 specific [influenza virus vacc,specific] latex Allergy Severe Rash/Hives Verified 09/09/18 11:47 peanut Allergy Severe Anaphylaxis Verified 09/09/18 11:47 Penicillins Allergy Severe Swelling Verified 09/09/18 11:47 tetanus toxoid, adsorbed Allergy Intermediate Rash/Hives Verified 09/09/18 11:47 Influenza Virus Vaccines Allergy Anaphylaxis Verified 09/09/18 11:47 Review of Systems ROS Statement: Those systems with pertinent positive or pertinent negative responses have been documented in the HPI. ROS Other: All systems not noted in ROS Statement are negative. Past Medical History Past Medical History: Atrial Fibrillation, Diabetes Mellitus, Deep Vein Thrombosis (DVT), Fibromyalgia, GI Bleed, Hyperlipidemia, Hypertension, Pneumonia, Renal Disease, Skin Disorder Additional Past Medical History / Comment(s): Chronic blood loss anemia, hypertension, hyperlipidemia, fibromyalgia, chronic stage III renal failure, morbid obesity, DVT left lower leg with a previous IVC filter in place, dermatitis, gastric ulcer with a previous Clinton-en-Y gastric bypass surgery, chronic lower back pain, morbid obesity, previous history of severe sepsis w/ septic shock including septicemia with MRSA, SVT, DM type 2, hemorrhoids, cellulitis of left lower extremity, dysphagia, falls, muscle weakness, pneumonia , sleep apnea, bilateral tinnitus, atrial fibrillation, UTI. Left eye contusion/ left lower leg laceration - surgically repaired, Right heel pressure ulcer - healed, peripheral neuropathy (bilateral hands and feet), migraines, eczema, sinus problems, lower GI bleed. 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; Urine-VRE & ESBL Past Surgical History: Adenoidectomy, Bariatric Surgery, Cholecystectomy, Joint Replacement, Tonsillectomy, Tubal Ligation Additional Past Surgical History / Comment(s): Gastric bypass, Clinton-en-Y in 2003 , Lizzy filter placement in 2000, teeth extraction, colonoscopy, EGD, hemorrhoidectomy, panniculectomy, D&C, hystoscopy x 2, LT KNEE replaced 2006- MRSA infection-hardware removed and cemented then replaced again, L hip repair with screw and total R hip REPLACEMENT, bilateral heel spurs removed, bilateral carpal tunnel releases, D&Cs, infusaport insertion since removed. Past Anesthesia/Blood Transfusion Reactions: Blood Transfusion Reaction Additional Past Anesthesia/Blood Transfusion Reaction / Comment(s): Per chart unspecified reaction. Past Psychological History: Anxiety, Depression Smoking Status: Former smoker Past Alcohol Use History: None Reported Past Drug Use History: Marijuana - Past Family History Father Family Medical History: Myocardial Infarction ([place]) Additional Family Medical History / Comment(s): AT AGE 46-PA Mother Family Medical History: Diabetes Mellitus Additional Family Medical History / Comment(s): AT AGE 66 FROM COMPLICATIONS FROM DM Sister(s) Family Medical History: Diabetes Mellitus Brother(s) Family Medical History: Diabetes Mellitus Daughter(s) Family Medical History: Cancer Son(s) Family Medical History: No Reported History General Exam General appearance: alert, in no apparent distress Head exam: Present: atraumatic, normocephalic, normal inspection Respiratory exam: Present: normal lung sounds bilaterally. Absent: respiratory distress, wheezes, rales, rhonchi, stridor Cardiovascular Exam: Present: regular rate, normal rhythm, normal heart sounds. Absent: systolic murmur, diastolic murmur, rubs, gallop, clicks GI/Abdominal exam: Present: soft, normal bowel sounds, other (Left-sided colostomy noted). Absent: distended, tenderness, guarding, rebound, rigid Extremities exam: Present: other (SkinTo the left leg from dorsi on the right with scarring noted, open sore on the left leg, buttocks region with mild erythema) Skin exam: Present: warm, dry Course Vital Signs 09/09/18 09/09/18 09/09/18 11:47 13:14 15:14 Temperature 98.3 F 100.3 F H Pulse Rate 79 78 Respiratory 18 18 Rate Blood Pressure 134/65 120/74 O2 Sat by Pulse 99 98 Oximetry Medical Decision Making - Medical Decision Making 67-year-old female presented for her wounds, fever at correction. Patient will be admitted for probable early sepsis, deep venous ulcer and leg infection. Patient was started on Levaquin and ankle mycin secondary to multiple ALLERGIES including penicillin and sulfa swan's. - Lab Data Result diagrams: 09/09/18 13:44 09/09/18 13:44 Lab Results 09/09/18 09/09/18 09/09/18 Range/Units 13:30 13:44 13:44 WBC 7.4 (3.8-10.6) k/uL RBC 2.53 L (3.80-5.40) m/uL Hgb 7.0 L (11.4-16.0) gm/dL Hct 22.0 L (34.0-46.0) % MCV 87.3 (80.0-100.0) fL MCH 27.6 (25.0-35.0) pg MCHC 31.6 (31.0-37.0) g/dL RDW 17.5 H (11.5-15.5) % Plt Count 384 (150-450) k/uL Neutrophils % 59 % Lymphocytes % 25 % Monocytes % 5 % Eosinophils % 9 % Basophils % 0 % Neutrophils # 4.4 (1.3-7.7) k/uL Lymphocytes # 1.9 (1.0-4.8) k/uL Monocytes # 0.4 (0-1.0) k/uL Eosinophils # 0.7 (0-0.7) k/uL Basophils # 0.0 (0-0.2) k/uL Hypochromasia Moderate Anisocytosis Slight Sodium 140 (137-145) mmol/L Potassium 5.6 H (3.5-5.1) mmol/L Chloride 115 H (98-107) mmol/L Carbon Dioxide 21 L (22-30) mmol/L Anion Gap 4 mmol/L BUN 25 H (7-17) mg/dL Creatinine 0.64 (0.52-1.04) mg/dL Est GFR (CKD-EPI)AfAm >90 (>60 ml/min/1.73 sqM) Est GFR (CKD-EPI)NonAf >90 (>60 ml/min/1.73 sqM) Glucose 111 H (74-99) mg/dL Plasma Lactic Acid Maximus (0.7-2.0) mmol/L Calcium 7.9 L (8.4-10.2) mg/dL Total Bilirubin 0.5 (0.2-1.3) mg/dL AST 34 (14-36) U/L ALT 16 (9-52) U/L Alkaline Phosphatase 89 (38-126) U/L Total Protein 6.1 L (6.3-8.2) g/dL Albumin 2.4 L (3.5-5.0) g/dL Urine Color Yellow Urine Appearance Clear (Clear) Urine pH 7.0 (5.0-8.0) Ur Specific [place] 1.011 (1.001-1.035) Urine Protein Trace H (Negative) Urine Glucose (UA) Negative (Negative) Urine Ketones Negative (Negative) Urine Blood Negative (Negative) Urine Nitrite Negative (Negative) Urine Bilirubin Negative (Negative) Urine Urobilinogen <2.0 (<2.0) mg/dL Ur Leukocyte Esterase Moderate H (Negative) Urine RBC 6 H (0-5) /hpf Urine WBC 35 H (0-5) /hpf Amorphous Sediment Rare H (None) /hpf Urine Bacteria Moderate H (None) /hpf Urine Mucus Rare H (None) /hpf 09/09/18 Range/Units 13:44 WBC (3.8-10.6) k/uL RBC (3.80-5.40) m/uL Hgb (11.4-16.0) gm/dL Hct (34.0-46.0) % MCV (80.0-100.0) fL MCH (25.0-35.0) pg MCHC (31.0-37.0) g/dL RDW (11.5-15.5) % Plt Count (150-450) k/uL Neutrophils % % Lymphocytes % % Monocytes % % Eosinophils % % Basophils % % Neutrophils # (1.3-7.7) k/uL Lymphocytes # (1.0-4.8) k/uL Monocytes # (0-1.0) k/uL Eosinophils # (0-0.7) k/uL Basophils # (0-0.2) k/uL Hypochromasia Anisocytosis Sodium (137-145) mmol/L Potassium (3.5-5.1) mmol/L Chloride (98-107) mmol/L Carbon Dioxide (22-30) mmol/L Anion Gap mmol/L BUN (7-17) mg/dL Creatinine (0.52-1.04) mg/dL Est GFR (CKD-EPI)AfAm (>60 ml/min/1.73 sqM) Est GFR (CKD-EPI)NonAf (>60 ml/min/1.73 sqM) Glucose (74-99) mg/dL Plasma Lactic Acid Maximus 0.9 (0.7-2.0) mmol/L Calcium (8.4-10.2) mg/dL Total Bilirubin (0.2-1.3) mg/dL AST (14-36) U/L ALT (9-52) U/L Alkaline Phosphatase (38-126) U/L Total Protein (6.3-8.2) g/dL Albumin (3.5-5.0) g/dL Urine Color Urine Appearance (Clear) Urine pH (5.0-8.0) Ur Specific [place] (1.001-1.035) Urine Protein (Negative) Urine Glucose (UA) (Negative) Urine Ketones (Negative) Urine Blood (Negative) Urine Nitrite (Negative) Urine Bilirubin (Negative) Urine Urobilinogen (<2.0) mg/dL Ur Leukocyte Esterase (Negative) Urine RBC (0-5) /hpf Urine WBC (0-5) /hpf Amorphous Sediment (None) /hpf Urine Bacteria (None) /hpf Urine Mucus (None) /hpf Disposition Clinical Impression: Leg wound, left, Sepsis, Decubital ulcer Disposition: ADMITTED IP TO THIS HOSP Condition: Fair Referrals: Carlo Frederick MD [Primary Care Provider] - 1-2 days
[2018-09-09 14:05] LABS: Anisocytosis Slight; Basophils % (A) 0 %; Eosinophils # (A) 0.7 k/uL (0-0.7); Eosinophils % (A) 9 %; Hypochromasia Moderate; Lymphocytes # (A) 1.9 k/uL (1.0-4.8); Lymphocytes % (A) 25 %; MCH 27.6 pg (25.0-35.0); MCHC 31.6 g/dL (31.0-37.0); MCV 87.3 fL (80.0-100.0); Mean Platelet Volume 6.2; Monocytes # (A) 0.4 k/uL (0-1.0); Monocytes % (A) 5 %; Neutrophils # (A) 4.4 k/uL (1.3-7.7); Neutrophils % (A) 59 %; Platelet Count 384 k/uL (150-450); RBC 2.53 m/uL (3.80-5.40); RDW 17.5 % (11.5-15.5); WBC 7.4 k/uL (3.8-10.6)
[2018-09-09 14:14] LABS: Albumin 2.4 g/dL (3.5-5.0); Anion Gap 4 mmol/L; Blood Urea Nitrogen 25 mg/dL (7-17); Calcium 7.9 mg/dL (8.4-10.2); Carbon Dioxide 21 mmol/L (22-30); Chloride 115 mmol/L (98-107); Glucose 111 mg/dL (74-99); Sodium 140 mmol/L (137-145); Total Bilirubin 0.5 mg/dL (0.2-1.3); Total Protein 6.1 g/dL (6.3-8.2)
[2018-09-09 14:16] LABS: ALT 16 U/L (9-52); AST 34 U/L (14-36); Alkaline Phosphatase 89 U/L (38-126); Potassium 5.6 mmol/L (3.5-5.1)
[2018-09-09 14:28] LABS: Amorphous Sediment,Urine Rare /hpf; Bacteria,Urine Moderate /hpf; Mucus,Urine Rare /hpf; RBC,Urine 6 /hpf (0-5); WBC,Urine 35 /hpf (0-5)
[2018-09-09 14:29] LABS: Appearance,Urine Clear (Clear); Bilirubin,Urine Negative (Negative); Blood,Urine Negative (Negative); Color,Urine Yellow; Glucose,Urine (UA) Negative (Negative); Ketones,Urine Negative (Negative); Leukocyte Esterase,Urine Moderate (Negative); Nitrite,Urine Negative (Negative); Protein,Urine Trace (Negative); Specific Gravity,Urine 1.011 (1.001-1.035); Urobilinogen,Urine <2.0 mg/dL (<2.0)
--- NOTE | 2018-09-09 14:42 | XR ---
Pelvis single view. History hip pain. Comparison none. FINDINGS: There is a right hip prosthesis. There is a left hip nailing fixing an old intertrochanteric fracture of the left femur. Pelvic ring is intact. There is osteopenia. Right hip prosthesis is in anatomic p osition. IMPRESSION: No acute abnormality of the pelvis. No acute fracture seen.
[2018-09-09] MEDS ORDERED: ONDANSETRON 4 MG/2 ML VIAL IVP PRN (15:12)
[2018-09-09] MEDS ORDERED: HYDROmorphone 0.5 MG/0.5 ML SYRINGE IVP PRN (15:12)
[2018-09-09] MEDS ORDERED: NALOXONE 0.4 MG/ML 1 ML VIAL IV PRN (15:12)
[2018-09-09] MEDS ORDERED: LEVOFLOXACIN 750MG-D5W PMX 750 MG in DEXTROSE/WATER 1 150ML.BAG IVPB STA (15:13)
[2018-09-09] MEDS ORDERED: VANCOMYCIN IV PER PHARMACY 1 EACH MISC MISCELLANE PRN (15:14)
[2018-09-09] MEDS ORDERED: VANCOMYCIN 1,750 MG in SODIUM CHLORIDE 0.9% 500 ML 500 ML IVPB STA (15:20)
[2018-09-09] MEDS: HYDROmorphone 1 MG/ML 1 ML SYRINGE IVP PRN ×2 (16:16→20:03)
[2018-09-09 17:36] LABS: Glucose,Whole Blood 202 mg/dL (75-99)
[2018-09-09] MEDS ORDERED: IPRATROPIUM-ALBUTEROL 3 ML NEB INHALATION PRN (20:44)
[2018-09-09] MEDS ORDERED: LACTULOSE 20 GM/30 ML CUP PO PRN (20:44)
[2018-09-09] MEDS ORDERED: ACETAMINOPHEN TAB 500 MG TAB PO PRN (20:46)
[2018-09-09] MEDS ORDERED: TEMAZEPAM 15 MG CAP PO PRN (20:46)
[2018-09-09] MEDS ORDERED: FLUCONAZOLE 100 MG TAB PO SCH (21:00)
[2018-09-09] MEDS ORDERED: diphenhydrAMINE 25 MG CAP PO PRN (21:07)
[2018-09-09] MEDS: oxyCODONE-APAP 10-325MG 1 EACH TAB PO PRN (22:00)
[2018-09-09] MEDS: diphenhydrAMINE 50 MG/ML 1 ML VIAL IVP PRN (22:32)
[2018-09-09] MEDS: SENNOSIDES 8.6 MG TAB PO SCH (22:47)
[2018-09-09] MEDS: ATORVASTATIN 40 MG TAB PO SCH (22:47)
[2018-09-09] MEDS: CALCIUM CARB-VIT D 500MG-200UN 1 EACH TAB PO SCH (22:47)
[2018-09-09] MEDS: HEPARIN SODIUM,PORCINE 5,000 UNIT/ML 1 ML VIAL SQ SCH (22:47)
[2018-09-09] MEDS: MAGNESIUM OXIDE 400 MG TAB PO SCH (22:47)
--- NOTE | 2018-09-09 22:49 | HP ---
HISTORY AND PHYSICAL DATE OF SERVICE: 09/09/2018. CHIEF COMPLAINTS: Fever and decubitus. HISTORY OF PRESENT ILLNESS: This 67-year-old woman with past medical history of multiple medical problems including atrial ablation, diabetes, DVT, fibromyalgia, hypertension, hyperlipidemia, history of pneumonia, history of ESBL, history of MRSA, history of VRE, being followed by Dr. Frederick in the outpatient setting was admitted recently to [facility] and the patient underwent a subtotal colectomy for obstructed megacolon about 2 weeks ago. The patient was discharged to [facility]. In the ECF, the patient was noted to have a decubitus suspicion in the right gluteal region as well as running a fever. The patient is admitted for further evaluation and treatment. Patient does have sutures and the natanael in place. Alternative natanael in place. Patient also complaining of some pain around the stomal area and significant diffuse pain also. PAST MEDICAL HISTORY: History of atrial fibrillation, history of diabetes, history of DVTs, fibromyalgia, hypertension, recent surgery. MEDICATIONS: Home medications are: 1. Requip 0.5 mg at bedtime. 2. Percocet 10 mg q.6h p.r.n. 3. Norvasc 2.5 mg. 4. Senokot 17.2 mg p.o. b.i.d. 5. ProStat. 6. MiraLAX 17 g p.o. q.h.s. 7. Oxybutynin 10 mg p.o. daily. 9. Multivitamins one p.o. daily. 10.MS Contin 15 mg p.o. t.i.d. 11.Magnesium oxide 400 mg b.i.d. 12.Claritin 10 mg. 13.Zestril 5 mg p.o. daily. 14.Cephulac 30 mg daily. 15.DuoNeb q.i.d. and p.r.n. 16.Humalog scale. 17.Vitamin D3 1 tablet p.o. q.a.m. 18.Biotin 300 mg p.o. daily. 19.Lipitor 40 mg p.o. q.h.s. ALLERGIES: MULTIPLE ALLERGIES ADHESIVE TAPE, CEPHALEXIN, INFLUENZA AND PENICILLIN, TETANUS BACLOFEN. FAMILY HISTORY: History of myocardial infarction in the family. SOCIAL HISTORY: Previous history of smoking. No history of current smoking or alcohol intake. REVIEW OF SYSTEMS: ENT: No diminished hearing or vision. CARDIOVASCULAR: No angina or palpitations. RESPIRATORY: As mentioned earlier. GI: As mentioned earlier. no dysuria. Nervous system: No numbness, weakness. ALLERGY/IMMUNOLOGY: No asthma or hayfever. MUSCULOSKELETAL as mentioned earlier. HEMATOLOGY/ONCOLOGY: No history of anemia. ENDOCRINE: No history of diabetes, hypothyroidism. CONSTITUTIONAL: As mentioned earlier. Dermatology: Negative. Rheumatology: Negative. Psychiatry: As mentioned earlier. PHYSICAL EXAMINATION: Alert and oriented x3. The pulse is 84. Blood pressure is 148/60, respirations 16, temperature 98.2. Pulse ox 100 percent on room air. HEENT: Conjunctivae normal. Oral mucosa moist. Neck is no jugular venous distention. No carotid bruit. No lymph node enlargement. Cardiovascular systems: S1, S2 muffled. Respiration: Breath sounds diminished in the bases. A few scattered rhonchi and crackles. ABDOMEN: Soft. Ostomy present, status post surgery. Natanael also present and diffuse tenderness. No guarding. No rigidity. No mass palpable. Bowel sounds present. Legs: No edema. No swelling. Central nervous system: Higher functions as mentioned earlier. Moves all 4 limbs. No focal motor or sensory deficits. Lymphatics: No lymph nodes palpable in the neck, axillae or groin. Skin is significant erythema and cellulitis and acute decub stage 2-3 in the right the gluteal region and excoriations also present also in the left thigh area which is healing and left leg area which is bandaged. JOINTS: No active deforming arthropathy. LAB STUDIES: WBC 11.7, hemoglobin 7, sodium 140, potassium 5.6. ASSESSMENT: 1. Multiple decubitus ulcers with possible sepsis present on admission. 2. History of recent subtotal colectomy for obstructing megacolon. 3. Hyperkalemia, mild. 4. Possible urinary tract infection present on admission. 5. Atrial fibrillation. 6. Diabetes type 2. 7. History of deep vein thrombosis. 8. Fibromyalgia. 9. Gastrointestinal bleed. 10.Hyperlipidemia. 11.Hypertension. 12.History of pneumonia. 13.History of fibromyalgia. 14.History of chronic kidney disease stage III. 15.History of previous Clinton-en-Y gastric bypass surgery. 16.History of degenerative joint disease. 17.History of MRSA. 18.History of supraventricular tachycardia. 19.History of atrial fibrillation. 20.History of ESBL, MRSA. 21.History of bowel resection. RECOMMENDATIONS AND DISCUSSION: This 67-year-old woman who presented with multiple complex medical issues, we will monitor the patient closely. Continue the current medications, management and symptomatic treatment. Otherwise, at this time, I recommend continue broad- spectrum IV antibiotics. Consult Infectious Disease for evaluation. Otherwise, I would recommend rest of the home medications and add antifungal medications. Prognosis guarded because of multiple complex medical issues. A copy of dictation being forwarded to Dr. Frederick who is the primary physician and who is following the patient. MMODL / IJN: [id number] / MTDGwen
[2018-09-10] MEDS: HYDROmorphone 1 MG/ML 1 ML SYRINGE IVP PRN ×6 (03:07→20:48)
[2018-09-10] MEDS: VANCOMYCIN 1,750 MG in SODIUM CHLORIDE 0.9% 500 ML 500 ML IVPB SCH ×2 (04:24→16:52)
[2018-09-10 07:32] LABS: Glucose,Whole Blood 134 mg/dL (75-99)
[2018-09-10] MEDS: IPRATROPIUM-ALBUTEROL 3 ML NEB INHALATION SCH ×4 (07:50→20:54)
[2018-09-10] MEDS: amLODIPine 2.5 MG TAB PO SCH (08:55)
[2018-09-10] MEDS: MULTIVITAMINS, THERA 1 EACH TAB PO SCH (08:56)
[2018-09-10] MEDS: LORATADINE 10 MG TAB PO SCH (08:56)
[2018-09-10] MEDS: MAGNESIUM OXIDE 400 MG TAB PO SCH ×2 (08:56→20:40)
[2018-09-10] MEDS: PANTOPRAZOLE 40 MG TABLET PO SCH (08:56)
[2018-09-10] MEDS: SENNOSIDES 8.6 MG TAB PO SCH ×2 (08:56→20:40)
[2018-09-10] MEDS: OXYBUTYNIN 10 MG TAB.ER.24 PO SCH (08:57)
[2018-09-10] MEDS: HEPARIN SODIUM,PORCINE 5,000 UNIT/ML 1 ML VIAL SQ SCH ×2 (08:57→20:41)
[2018-09-10] MEDS ORDERED: NON-FORMULARY DRUG (Biotin [Biotin] 300 MCG) PO SCH (09:00)
[2018-09-10] MEDS ORDERED: LISINOPRIL 5 MG TAB PO SCH (09:00)
[2018-09-10] MEDS: LORazepam 1 MG TAB PO PRN ×2 (09:17→15:13)
[2018-09-10 12:04] LABS: Glucose,Whole Blood 189 mg/dL (75-99)
[2018-09-10 12:59] LABS: Anisocytosis Slight; Basophils % (A) 1 %; Eosinophils # (A) 0.6 k/uL (0-0.7); Eosinophils % (A) 10 %; HCT 26.4 % (34.0-46.0); HGB 7.9 gm/dL (11.4-16.0); Hypochromasia Marked; Lymphocytes # (A) 1.5 k/uL (1.0-4.8); Lymphocytes % (A) 25 %; MCH 27.9 pg (25.0-35.0); Mean Platelet Volume 6.4; Monocytes # (A) 0.3 k/uL (0-1.0); Monocytes % (A) 4 %; Neutrophils # (A) 3.4 k/uL (1.3-7.7); Neutrophils % (A) 58 %; Platelet Count 311 k/uL (150-450); RBC 2.84 m/uL (3.80-5.40); RDW 17.4 % (11.5-15.5); WBC 5.8 k/uL (3.8-10.6)
[2018-09-10 13:00] LABS: Anion Gap 7 mmol/L; Blood Urea Nitrogen 20 mg/dL (7-17); Calcium 8.2 mg/dL (8.4-10.2); Carbon Dioxide 18 mmol/L (22-30); Chloride 116 mmol/L (98-107); Glucose 177 mg/dL (74-99); Potassium 5.6 mmol/L (3.5-5.1); Sodium 141 mmol/L (137-145)
[2018-09-10 13:05] LABS: MCV 92.9 fL (80.0-100.0)
--- NOTE | 2018-09-10 16:20 | PN ---
PROGRESS NOTE DATE OF SERVICE: 09/10/2018. HISTORY: This is a 67-year-old woman who was admitted with multiple decubitus ulcers, also had anemia yesterday. Hemoglobin is improved today. Patient has lack of IV access at this time. Patient had recent subtotal colectomy and obstructing megacolon also: Surgical and Infectious Disease evaluation in progress. Cultures are negative so far. Patient was started on broad-spectrum IV antibiotics. PAST MEDICAL HISTORY: Reviewed. The patient is complaining of severe pain, pain around the ostomy tube as well as generalized pain also. PAST MEDICAL HISTORY: Reviewed. REVIEW OF SYSTEMS: CARDIOVASCULAR: No angina. RESPIRATORY: As mentioned. GI: As mentioned. : As mentioned. NERVOUS: No numbness or weakness. CURRENT MEDICATIONS: 1. Tylenol 500 mg every 6h p.r.n. 2. DuoNeb q.i.d. and p.r.n. 3. Norvasc 2.5 mg daily. 4. Lipitor 40 mg at bedtime. 5. Os-Jevon with vitamin D p.o. at bedtime. 6. Benadryl 25 mg is p.r.n. 7. Diflucan 200 mg daily. 8. Heparin subcu b.i.d. 9. Dilaudid. 10.Cephalexin. 11.Zestril 5 mg p.o. daily. 12.Claritin. 13.Ativan. 14.Magnesium oxide. 15.Multivitamin. 16.Zofran. 17.Percocet. 18.Protonix. 19.Vancomycin IV. PHYSICAL EXAM: Patient is alert, oriented x3. Blood pressure 99/60, respirations 18, temperature normal, pulse ox 98% on room air. GENERAL: Alert, oriented. HEENT: Conjunctivae normal. Oral mucosa moist. NECK: No jugular venous distention. No carotid enlargement. CARDIOVASCULAR: S1 and S2 muffled. LUNGS: Breath sounds diminished at the bases. Few scattered rhonchi and crackles. ABDOMEN: Soft, nontender. EXTREMITIES: Legs no edema. No swelling. Significant decubitus ulcers. NERVOUS SYSTEM: No focal deficits. LAB STUDIES: WBC 5.8, hemoglobin 7.9, sodium 141, potassium 5.6. ASSESSMENT: 1. Multiple decubitus ulcers with possible sepsis present on admission. 2. History of recent subtotal colectomy for obstructive megacolon. 3. Hyperkalemia, mild. 4. Possible urinary tract infection present on admission. 5. Atrial fibrillation. 6. Diabetes mellitus type 2. 7. History of deep vein thrombosis. 8. Fibromyalgia. 9. GI bleed. 10.Hyperlipidemia. 11.Hypertension. 12.History of pneumonia. 13.History of fibromyalgia. 14.Chronic kidney disease stage III. 15.Previous Clinton-en-Y gastric bypass surgery. 16.History of degenerative joint disease. 17.History of MRSA. 18.History of supraventricular tachycardia. 19.History of atrial fibrillation. 20.History of bowel resection. 21.FULL CODE. RECOMMENDATIONS AND DISCUSSION: This 67-year-old woman presented with multiple complex medical issues. We will monitor the patient closely. Continue symptomatic treatment and current management. Broad- spectrum IV antibiotics. Continue with IV fluids. Continue with bronchodilators. Low potassium diet. I would also recommend to hold lisinopril at this time and continue to monitor. Repeat labs are ordered. IV antibiotics. Infectious Disease evaluation. Guarded prognosis because of multiple complex medical issues. Further recommendations to follow. MMODL / IJN: [id number] /
[2018-09-10 17:05] LABS: Glucose,Whole Blood 182 mg/dL (75-99)
[2018-09-10] MEDS: oxyCODONE-APAP 10-325MG 1 EACH TAB PO PRN (17:54)
[2018-09-10] MEDS ORDERED: LORazepam 0.5 MG TAB PO PRN (17:58)
--- NOTE | 2018-09-10 19:56 | CONS ---
CONSULTATION DATE OF SERVICE: 09/10/2018. REASON FOR CONSULTATION: 1. Left leg wound. 2. Sacral pressure ulcer. 3. Fever. HISTORY OF PRESENT ILLNESS: The patient is a 67-year-old female with multiple comorbidities also including a chronic nonhealing wound to the left leg. The patient was also recent admitted to this hospital with obstructive megacolon status post subtotal colectomy and transverse colostomy. The patient has been brought back to [facility] with concern by the shelter staff with the patient having a fever and concern for possible infected pressure ulcer. The patient apparently developed a pressure ulcer in the sacral area on the last day of her admission to this hospital. The patient did have some dull aching pain into that area, but denies any worsening. There is no significant drainage from it. She also has chronic nonhealing wound to the left leg, currently with no swelling, redness or any drainage. The patient denies having any chest pain or shortness of breath or cough. Some nausea but no vomiting. The patient also had chronic indwelling Ocffey catheter, not very clear when exactly last time this catheter has been changed. On admission to this facility the patient noticed to have a low-grade fever of 100.3. Her white count was normal though. The UA was significantly positive, however, it had been obtained from the Coffey catheter. Infectious Disease consulted for recommendation regarding local wound care as well as antibiotic therapy. Patient is currently on Diflucan and vancomycin. REVIEW OF SYSTEMS: Positive points have been mentioned in HPI. The rest of the 14 systems have been negative. PAST MEDICAL HISTORY: Diabetes mellitus, DVT, hypertension, hyperlipidemia, pneumonia, renal insufficiency, atrial fibrillation, fibromyalgia, nonhealing wound to the left leg, previous history of infection with ESBL E coli, MRSA and VRE and recent obstructive megacolon. PAST SURGICAL HISTORY: Adenoidectomy, bariatric surgery, cholecystectomy, tonsillectomy, tubal ligation, subtotal colectomy, gastric bypass, left knee replaced and right hip replacement. SOCIAL HISTORY: Remote history of smoking. No drinking or drug use. Currently a shelter resident. FAMILY HISTORY: Father with history of [place], at age of 46 from [place]. Mother with history of diabetes. ALLERGIES: To CEPHALEXIN, PENICILLIN. MEDICATION: Currently include the patient is on Tylenol, DuoNeb, Norvasc, Lipitor, Os-Jevon, Benadryl, Diflucan, heparin, Dilaudid, lactulose, Claritin, Ativan, vancomycin pharmacy to dose, Narcan, Topamax, Senokot, Restoril. EXAMINATION: Blood pressure is 120/59 with a pulse of 80, temperature 98.2. She is 98% on room air. General description is an elderly female, lying in bed in no distress. No tachypnea or accessory muscle of respiration use. HEENT: Shows slight pallor. No scleral icterus. Oral mucosa membrane is dry. No pharyngeal erythema or thrush. NECK: Trachea central. No thyromegaly. LUNGS: Unlabored breathing. Clear to auscultation anteriorly. No wheeze or crackle. HEART: S1, S2. Regular rate and rhythm. ABDOMEN: Soft. The midline incision is currently intact with no evidence of any cellulitis. EXTREMITIES: Some chronic swelling in the left posterior leg with wound with slight bleeding, but no evidence of any cellulitis. Examination of sacral area, the patient did have sacral pressure ulcer with slough tissue. No surrounding redness or any foul- smelling drainage. NEUROLOGICAL: The patient is awake, alert, oriented x3. Mood and affect normal. LABS: BUN of 20, creatinine 0.74, hemoglobin 7.8, white count 5.8. UA has been positive with moderate leukocyte esterases, 35 WBCs with moderate bacteria. Cultures currently pending. DIAGNOSTIC IMPRESSION AND PLAN: 1. Patient admitted to the hospital with low-grade fever of 100.3. This patient currently with a wound to the sacral area as well as left posterior leg. However, the wound does not look infected. No significant cellulitis or any falls or foul smelling drainage. However, the patient did have a positive UA and more likely dealing with a case of catheter associated urinary tract infection. 2. The patient to have MULTIPLE ANTIBIOTIC ALLERGIES that will limit the number of antibiotics that could be safely used. PLAN: 1. We will change of Coffey catheter. Obtain urine culture from new Coffey. 2. Local wound care to the sacral wound with Medihoney followed by moist dressing and the left posterior leg wound with Aquacel silver dressing. 3. We will add Azactam 2 g q.12 hours to cover for the UTI, possibly a gram-negative pathogen. 4. We will follow clinical condition and culture to further adjust medication if needed. However, the patient known to Dr. Bhatia and may be followed by him as of tomorrow. MMODL / IJN: [id number] /
[2018-09-10 20:08] LABS: Glucose,Whole Blood 185 mg/dL (75-99)
[2018-09-10] MEDS: AZTREONAM 2 GM in SODIUM CHLORIDE 0.9% 100 ML IVPB SCH (20:38)
[2018-09-10] MEDS: ATORVASTATIN 40 MG TAB PO SCH (20:40)
[2018-09-10] MEDS: CALCIUM CARB-VIT D 500MG-200UN 1 EACH TAB PO SCH (20:41)
[2018-09-10 23:16] LABS: Appearance,Urine Clear (Clear); Bilirubin,Urine Negative (Negative); Blood,Urine Negative (Negative); Color,Urine Colorless; Glucose,Urine (UA) Negative (Negative); Ketones,Urine Negative (Negative); Leukocyte Esterase,Urine Small (Negative); Nitrite,Urine Negative (Negative); PH, Urine 6.5 (5.0-8.0); Protein,Urine Negative (Negative); RBC,Urine 1 /hpf (0-5); Specific Gravity,Urine 1.004 (1.001-1.035); Squamous Epithelial Cell,Urine <1 /hpf (0-4); Urobilinogen,Urine <2.0 mg/dL (<2.0); WBC,Urine 7 /hpf (0-5)
[2018-09-11] MEDS: oxyCODONE-APAP 10-325MG 1 EACH TAB PO PRN ×4 (00:01→23:04)
[2018-09-11] MEDS: HYDROmorphone 1 MG/ML 1 ML SYRINGE IVP PRN ×6 (00:01→21:09)
[2018-09-11] MEDS: diphenhydrAMINE 50 MG/ML 1 ML VIAL IVP PRN (01:15)
[2018-09-11] MEDS: VANCOMYCIN 1,750 MG in SODIUM CHLORIDE 0.9% 500 ML 500 ML IVPB SCH ×2 (04:58→17:15)
[2018-09-11] MEDS: IPRATROPIUM-ALBUTEROL 3 ML NEB INHALATION SCH ×4 (07:17→19:20)
[2018-09-11 07:23] LABS: Glucose,Whole Blood 131 mg/dL (75-99)
--- NOTE | 2018-09-11 07:59 | P.GSCN ---
History of Present Illness Consult date: 09/10/18 History of present illness: Patient is a re-admission in 30 days. She reports chronic pain at her descending colostomy that is working. She is eating regular diet at the time of my evaluation. History of chronic pain needs. No surgical intervention. Past Medical History Past Medical History: Atrial Fibrillation, Diabetes Mellitus, Deep Vein Thrombosis (DVT), Fibromyalgia, GI Bleed, Hyperlipidemia, Hypertension, Pneumonia, Renal Disease, Skin Disorder Additional Past Medical History / Comment(s): Chronic blood loss anemia, hypertension, hyperlipidemia, fibromyalgia, chronic stage III renal failure, morbid obesity, DVT left lower leg with a previous IVC filter in place, dermatitis, gastric ulcer with a previous Clinton-en-Y gastric bypass surgery, chronic lower back pain, morbid obesity, previous history of severe sepsis w/ septic shock including septicemia with MRSA, SVT, DM type 2, hemorrhoids, cellulitis of left lower extremity, dysphagia, falls, muscle weakness, pneumonia , sleep apnea, bilateral tinnitus, atrial fibrillation, UTI. Left eye contusion/ left lower leg laceration - surgically repaired, Right heel pressure ulcer - healed, peripheral neuropathy (bilateral hands and feet), migraines, eczema, sinus problems, lower GI bleed. 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; Urine-VRE & ESBL Past Surgical History: Adenoidectomy, Bariatric Surgery, Bowel Resection, Cholecystectomy, Joint Replacement, Tonsillectomy, Tubal Ligation Additional Past Surgical History / Comment(s): Colostomy placed 2018, Gastric bypass, Clinton-en-Y in 2003, Lizzy filter placement in 2000, teeth extraction , colonoscopy, EGD, hemorrhoidectomy, panniculectomy, D&C, hystoscopy x 2, LT KNEE replaced 2005-MRSA infection-hardware removed and cemented then replaced again, L hip repair with screw and total R hip REPLACEMENT, bilateral heel spurs removed, bilateral carpal tunnel releases, D&Cs, infusaport insertion since removed. Past Anesthesia/Blood Transfusion Reactions: Blood Transfusion Reaction Additional Past Anesthesia/Blood Transfusion Reaction / Comm: Per chart unspecified reaction. Past Psychological History: Anxiety, Depression Additional Psychological History / Comment(s): Patient is now in extended care. No longer live independently. Does not have any significant family. Was a tobacco smoker stopping several years ago. She has history of smoking 1.5-2 pack per day for 27 years and quit in 1993. She drinks alcohol rarely. 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 No animal exposures. Smoking Status: Former smoker Past Alcohol Use History: None Reported Additional Past Alcohol Use History / Comment(s): She has history of smoking 2 packs per day for 27 years and quit in 1993. She drinks alcohol rarely. 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 Past Drug Use History: Marijuana - Past Family History Father Family Medical History: Myocardial Infarction (MO) Additional Family Medical History / Comment(s): AT AGE 46-MO Mother Family Medical History: Diabetes Mellitus Additional Family Medical History / Comment(s): AT AGE 66 FROM COMPLICATIONS FROM DM Sister(s) Family Medical History: Diabetes Mellitus Brother(s) Family Medical History: Diabetes Mellitus Daughter(s) Family Medical History: Cancer Son(s) Family Medical History: No Reported History Medications and Allergies Home Medications Medication Instructions Recorded Confirmed Type Atorvastatin [Lipitor] 40 mg PO HS 08/30/15 09/09/18 History Sennosides [Senokot] 17.2 mg PO BID 05/22/17 09/09/18 History Biotin 300 mcg PO DAILY 01/05/18 09/09/18 History Calcium Carbonate/Vitamin D3 1 tab PO HS 01/05/18 09/09/18 History [Calcium 500-Vit D3 200 Tablet] Multivitamins, Thera [Multivitamin 1 tab PO DAILY 01/05/18 09/09/18 History (formulary)] Oxybutynin Chloride [Oxybutynin 10 mg PO DAILY 01/05/18 09/09/18 History Chloride ER] rOPINIRole HCL [Requip] 0.5 mg PO HS 01/05/18 09/09/18 History Magnesium Oxide [Mag-Ox] 400 mg PO BID 02/13/18 09/09/18 History Omeprazole 20 mg PO DAILY 02/13/18 09/09/18 History Loratadine [Claritin] 10 mg PO DAILY 06/10/18 09/09/18 History Lisinopril [Zestril] 5 mg PO DAILY 08/17/18 09/09/18 History Polyethylene Glycol 3350 [Miralax] 17 gm PO HS 08/17/18 09/09/18 History Ipratropium-Albuterol Nebulize 3 ml INHALATION RT-QID ampul.neb 08/30/18 Rx [Duoneb 0.5 mg-3 mg/3 ml Soln] amLODIPine [Norvasc] 2.5 mg PO DAILY tab 08/30/18 09/09/18 Rx INSULIN LISPRO (HumaLOG) [humaLOG] See Protocol SQ ACHS 09/09/18 09/09/18 History Ipratropium-Albuterol Nebulize 3 ml INHALATION RT-Q4H PRN 09/09/18 09/09/18 History [Duoneb 0.5 mg-3 mg/3 ml Soln] Lactulose [Cephulac] 30 gm PO TID PRN 09/09/18 09/09/18 History Morphine Sulfate ER [Ms Contin] 15 mg PO TID@0500,1300,2100 09/09/18 09/09/18 History Prostat 30 ml PO BID@0700,1600 09/09/18 09/09/18 History oxyCODONE-APAP 10-325MG [Percocet 1 tab PO Q6H PRN 09/09/18 09/09/18 History 10-325 mg] Allergies Allergy/AdvReac Type Severity Reaction Status Date / Time adhesive tape Allergy Severe Rash/Hives Verified 09/09/18 15:56 cephalexin monohydrate Allergy Severe Rash/Hives Verified 09/09/18 15:56 [From Keflex] influenza virus vaccine, Allergy Severe Anaphylaxis Verified 09/09/18 15:56 specific [influenza virus vacc,specific] latex Allergy Severe Rash/Hives Verified 09/09/18 15:56 peanut Allergy Severe Anaphylaxis Verified 09/09/18 15:56 Penicillins Allergy Severe Swelling Verified 09/09/18 15:56 tetanus toxoid, adsorbed Allergy Intermediate Rash/Hives Verified 09/09/18 15:56 baclofen Allergy Unknown Verified 09/09/18 15:56 Influenza Virus Vaccines Allergy Anaphylaxis Verified 09/09/18 15:56 Surgical - Exam Vital Signs Temp Pulse Resp BP Pulse Ox 98.3 F 79 18 134/65 99 09/09/18 11:47 09/09/18 11:47 09/09/18 11:47 09/09/18 11:47 09/09/18 11:47 Results - Labs 09/10/18 11:37 09/10/18 11:37 Abnormal Lab Results - Last 24 Hours (Table) 09/09/18 09/09/18 09/10/18 Range/Units 00:27 21:40 07:28 RBC (3.80-5.40) m/uL Hgb (11.4-16.0) gm/dL Hct (34.0-46.0) % MCHC (31.0-37.0) g/dL RDW (11.5-15.5) % Potassium (3.5-5.1) mmol/L Chloride (98-107) mmol/L Carbon Dioxide (22-30) mmol/L BUN (7-17) mg/dL Glucose (74-99) mg/dL POC Glucose (mg/dL) 134 H (75-99) mg/dL Calcium (8.4-10.2) mg/dL Crossmatch See Detail See Detail 09/10/18 09/10/18 09/10/18 Range/Units 11:37 11:37 12:01 RBC 2.84 L (3.80-5.40) m/uL Hgb 7.9 L (11.4-16.0) gm/dL Hct 26.4 L (34.0-46.0) % MCHC 30.0 L (31.0-37.0) g/dL RDW 17.4 H (11.5-15.5) % Potassium 5.6 H (3.5-5.1) mmol/L Chloride 116 H (98-107) mmol/L Carbon Dioxide 18 L (22-30) mmol/L BUN 20 H (7-17) mg/dL Glucose 177 H (74-99) mg/dL POC Glucose (mg/dL) 189 H (75-99) mg/dL Calcium 8.2 L (8.4-10.2) mg/dL Crossmatch 09/10/18 09/10/18 Range/Units 16:44 20:06 RBC (3.80-5.40) m/uL Hgb (11.4-16.0) gm/dL Hct (34.0-46.0) % MCHC (31.0-37.0) g/dL RDW (11.5-15.5) % Potassium (3.5-5.1) mmol/L Chloride (98-107) mmol/L Carbon Dioxide (22-30) mmol/L BUN (7-17) mg/dL Glucose (74-99) mg/dL POC Glucose (mg/dL) 182 H 185 H (75-99) mg/dL Calcium (8.4-10.2) mg/dL Crossmatch Microbiology - Last 24 Hours (Table) 09/09/18 13:30 Urine Culture - Preliminary Urine,Catheterized Gram Neg Bacilli 09/09/18 19:20 Gram Stain - Preliminary Buttock Wound Culture - Preliminary Gram Neg Bacilli 09/09/18 19:20 Gram Stain - Preliminary Leg - Left Wound Culture - Preliminary Presumptive MRSA Gram Neg Bacilli 09/09/18 13:44 Blood Culture - Preliminary Blood No Growth after 24 hours 09/09/18 19:20 Anaerobic Culture - Preliminary Leg - Left 09/09/18 19:20 Anaerobic Culture - Preliminary Buttock Diabetes panel 09/10/18 Range/Units 11:37 Sodium 141 (137-145) mmol/L Potassium 5.6 H (3.5-5.1) mmol/L Chloride 116 H (98-107) mmol/L Carbon Dioxide 18 L (22-30) mmol/L BUN 20 H (7-17) mg/dL Creatinine 0.74 (0.52-1.04) mg/dL Glucose 177 H (74-99) mg/dL Calcium 8.2 L (8.4-10.2) mg/dL Calcium panel 09/10/18 Range/Units 11:37 Calcium 8.2 L (8.4-10.2) mg/dL Pituitary panel 09/10/18 Range/Units 11:37 Sodium 141 (137-145) mmol/L Potassium 5.6 H (3.5-5.1) mmol/L Chloride 116 H (98-107) mmol/L Carbon Dioxide 18 L (22-30) mmol/L BUN 20 H (7-17) mg/dL Creatinine 0.74 (0.52-1.04) mg/dL Glucose 177 H (74-99) mg/dL Calcium 8.2 L (8.4-10.2) mg/dL Adrenal panel 09/10/18 Range/Units 11:37 Sodium 141 (137-145) mmol/L Potassium 5.6 H (3.5-5.1) mmol/L Chloride 116 H (98-107) mmol/L Carbon Dioxide 18 L (22-30) mmol/L BUN 20 H (7-17) mg/dL Creatinine 0.74 (0.52-1.04) mg/dL Glucose 177 H (74-99) mg/dL Calcium 8.2 L (8.4-10.2) mg/dL
[2018-09-11] MEDS: PANTOPRAZOLE 40 MG TABLET PO SCH (08:48)
[2018-09-11] MEDS: amLODIPine 2.5 MG TAB PO SCH (08:48)
[2018-09-11] MEDS: LORATADINE 10 MG TAB PO SCH (08:48)
[2018-09-11] MEDS: AZTREONAM 2 GM in SODIUM CHLORIDE 0.9% 100 ML IVPB SCH ×2 (08:48→21:16)
[2018-09-11] MEDS: HEPARIN SODIUM,PORCINE 5,000 UNIT/ML 1 ML VIAL SQ SCH ×2 (08:48→21:10)
[2018-09-11] MEDS: MAGNESIUM OXIDE 400 MG TAB PO SCH ×2 (08:48→21:22)
[2018-09-11] MEDS: OXYBUTYNIN 10 MG TAB.ER.24 PO SCH (08:49)
[2018-09-11] MEDS: SENNOSIDES 8.6 MG TAB PO SCH ×2 (08:49→21:10)
[2018-09-11 09:23] LABS: Anisocytosis Slight; Basophils % (A) 1 %; Eosinophils # (A) 0.6 k/uL (0-0.7); Eosinophils % (A) 11 %; HCT 26.2 % (34.0-46.0); HGB 7.9 gm/dL (11.4-16.0); Hypochromasia Moderate; Lymphocytes # (A) 1.5 k/uL (1.0-4.8); Lymphocytes % (A) 30 %; MCH 26.8 pg (25.0-35.0); MCHC 30.2 g/dL (31.0-37.0); MCV 88.6 fL (80.0-100.0); Mean Platelet Volume 6.5; Monocytes # (A) 0.3 k/uL (0-1.0); Monocytes % (A) 6 %; Neutrophils # (A) 2.5 k/uL (1.3-7.7); Neutrophils % (A) 51 %; Platelet Count 379 k/uL (150-450); RBC 2.96 m/uL (3.80-5.40); RDW 17.5 % (11.5-15.5); WBC 4.9 k/uL (3.8-10.6)
[2018-09-11 09:45] LABS: Anion Gap 5 mmol/L; Blood Urea Nitrogen 18 mg/dL (7-17); Calcium 8.9 mg/dL (8.4-10.2); Carbon Dioxide 24 mmol/L (22-30); Chloride 114 mmol/L (98-107); Glucose 118 mg/dL (74-99); Potassium 5.3 mmol/L (3.5-5.1); Sodium 143 mmol/L (137-145)
--- NOTE | 2018-09-11 10:18 | P.PN ---
Subjective Progress Note Date: 09/11/18 HISTORY OF PRESENT ILLNESS: 67-year-old female who underwent colostomy placement per Dr. Goel on 08/23/2017. She is admitted to the hospital secondary to decubitus ulcers. General surgery was consulted for further evaluation of colostomy. Patient examined at the bedside. She reports generalized pain, which is chronic in nature. Tolerating heart healthy/ consistent carb diet. Colostomy functioning. Denies nausea or vomiting. PHYSICAL EXAM: VITAL SIGNS: Currently stable. GENERAL: Well-developed in no acute distress. HEENT: No sclera icterus. Extraocular movements grossly intact. Moist buccal mucosa. Head is atraumatic, normocephalic. Hears conversational speech. No nasal drainage. NECK: Supple without lymphadenopathy. CHEST: Non-labored respirations and equal bilateral excursions. CARDIOVASCULAR: Regular rate with regular rhythm. Palpable 2+ radial pulses. ABDOMEN: Soft. Dressing intact. Ostomy intact stool noted. MUSCULOSKELETAL: No clubbing, cyanosis or edema. NEUROLOGIC: No focal or lateralizing signs. Cranial nerves II through XII grossly intact. PSYCH: Appropriate affect. Alert and oriented to person, place and time. SKIN: Well perfused. Good skin turgor. ASSESSMENT: 1. Chronic colonic ileus, S/P colostomy 2. Chronic pain PLAN: Colostomy is functioning well. Remove remaining natanael today. No surgical intervention required. We will sign off. Nurse practitioner note has been reviewed by physician. Signing provider agrees with the documented findings, assessment, and plan of care. Objective - Vital Signs Vital signs: Vital Signs Temp 98.0 F 09/11/18 07:14 Pulse 82 09/11/18 07:14 Resp 16 09/11/18 07:14 BP 170/73 09/11/18 07:14 Pulse Ox 99 09/11/18 07:14 Intake & Output 09/10/18 09/11/18 09/11/18 18:59 06:59 18:59 Intake Total 1680 600 Output Total 1400 1750 Balance 280 -1150 Intake: Intake, IV Titration 600 Amount Aztreonam 2 gm In Sodium 100 Chloride 0.9% 100 ml @ 100 mls/hr IVPB Q12HR GUALBERTO Rx#:[id number] Vancomycin 1,750 mg In 500 Sodium Chloride 0.9% 500 ml 500 ml @ 167 mls/hr IVPB Q12H GUALBERTO Rx#: [id number] Oral 1680 Output: Urine 1400 1750 Other: Voiding Method Indwelling Catheter Indwelling Catheter # Voids 0 - Labs CBC & Chem 7: 09/11/18 08:20 09/11/18 08:20 Labs: Abnormal Lab Results - Last 24 Hours (Table) 09/10/18 09/10/18 09/10/18 Range/Units 11:37 11:37 12:01 RBC 2.84 L (3.80-5.40) m/uL Hgb 7.9 L (11.4-16.0) gm/dL Hct 26.4 L (34.0-46.0) % MCHC 30.0 L (31.0-37.0) g/dL RDW 17.4 H (11.5-15.5) % Potassium 5.6 H (3.5-5.1) mmol/L Chloride 116 H (98-107) mmol/L Carbon Dioxide 18 L (22-30) mmol/L BUN 20 H (7-17) mg/dL Glucose 177 H (74-99) mg/dL POC Glucose (mg/dL) 189 H (75-99) mg/dL Calcium 8.2 L (8.4-10.2) mg/dL Ur Leukocyte Esterase (Negative) Urine WBC (0-5) /hpf 09/10/18 09/10/18 09/10/18 Range/Units 16:44 20:06 22:50 RBC (3.80-5.40) m/uL Hgb (11.4-16.0) gm/dL Hct (34.0-46.0) % MCHC (31.0-37.0) g/dL RDW (11.5-15.5) % Potassium (3.5-5.1) mmol/L Chloride (98-107) mmol/L Carbon Dioxide (22-30) mmol/L BUN (7-17) mg/dL Glucose (74-99) mg/dL POC Glucose (mg/dL) 182 H 185 H (75-99) mg/dL Calcium (8.4-10.2) mg/dL Ur Leukocyte Esterase Small H (Negative) Urine WBC 7 H (0-5) /hpf 09/11/18 09/11/18 09/11/18 Range/Units 07:15 08:20 08:20 RBC 2.96 L (3.80-5.40) m/uL Hgb 7.9 L (11.4-16.0) gm/dL Hct 26.2 L (34.0-46.0) % MCHC 30.2 L (31.0-37.0) g/dL RDW 17.5 H (11.5-15.5) % Potassium 5.3 H (3.5-5.1) mmol/L Chloride 114 H (98-107) mmol/L Carbon Dioxide (22-30) mmol/L BUN 18 H (7-17) mg/dL Glucose 118 H (74-99) mg/dL POC Glucose (mg/dL) 131 H (75-99) mg/dL Calcium (8.4-10.2) mg/dL Ur Leukocyte Esterase (Negative) Urine WBC (0-5) /hpf Microbiology - Last 24 Hours (Table) 09/09/18 13:30 Urine Culture - Preliminary Urine,Catheterized Gram Neg Bacilli 09/09/18 19:20 Gram Stain - Preliminary Buttock Wound Culture - Preliminary Gram Neg Bacilli 09/09/18 19:20 Gram Stain - Preliminary Leg - Left Wound Culture - Preliminary Presumptive MRSA Gram Neg Bacilli 09/09/18 13:44 Blood Culture - Preliminary Blood No Growth after 24 hours 09/09/18 19:20 Anaerobic Culture - Preliminary Leg - Left
[2018-09-11] MEDS: MULTIVITAMINS, THERA 1 EACH TAB PO SCH (11:40)
[2018-09-11 11:52] VITALS: BMI 47.5
[2018-09-11 12:15] LABS: Glucose,Whole Blood 126 mg/dL (75-99)
[2018-09-11] MEDS ORDERED: VANCOMYCIN TROUGH DUE 1 EACH MISC MISCELLANE ONE (16:00)
[2018-09-11 17:31] LABS: Glucose,Whole Blood 108 mg/dL (75-99)
--- NOTE | 2018-09-11 19:03 | PN ---
PROGRESS NOTE DATE OF SERVICE: 09/11/2018 This 67-year-old woman also presented with significant decubitus ulcers, also complaining of severe pain also. No chest pain. No palpitations. No fever. Patient on broad-spectrum IV antibiotics. Wound culture showed MRSA and gram-negative bacilli. The patient is currently on vancomycin as well as aztreonam. Infectious Disease is following the patient closely. No chest pain. No palpitation. EXAM: Alert and oriented x2. Pulse 62, blood pressure 143/66, respirations 16, temperature 98 degrees, pulse ox 98% on room air. HEENT: Conjunctivae normal. NECK: No jugular venous distention. CARDIOVASCULAR: S1, S2 muffled. RESPIRATORY: Breath sounds diminished in the bases. A few scattered rhonchi. No crackles. ABDOMEN: Soft, nontender. LEGS: No edema. NERVOUS SYSTEM: No focal deficits. EXAMINATION OF SKIN: Multiple decubitus ulcers on the left leg and as well as right gluteal region and perineal area also present. LABS: WBC 4.2, hemoglobin 7.2, sodium 143, potassium 5.3. ASSESSMENT: 1. Multiple decubitus ulcers with possible sepsis present on admission with MRSA and as well as gram-negative bacilli. 2. History of recent subtotal colectomy for obstructive megacolon. 3. Hyperkalemia, mild. 4. Possible acute urinary tract infection, present on admission. 5. Atrial fibrillation. 6. Diabetes mellitus type 2. 7. History of deep vein thrombosis. 8. Fibromyalgia. 9. Gastrointestinal bleed. 10.Hyperlipidemia. 11.Hypertension. 12.History of pneumonia. 13.History of fibromyalgia. 14.History of chronic kidney disease stage III. 15.History of Clinton-en-Y gastric bypass surgery. 16.History of degenerative joint disease. 17.History of MRSA. 18.History of supraventricular tachycardia. 19.History of atrial fibrillation. 20.History of bowel resection. 21.FULL CODE. RECOMMENDATIONS AND DISCUSSION: I recommend to continue current management, monitoring and symptomatic treatment. Otherwise at this time I recommend continue with antibiotics. Closely follow with Infectious Disease. Guarded prognosis because of multiple complex medical issues. Further recommendations to follow. MMODL / IJN: [id number] /
[2018-09-11 20:54] LABS: Glucose,Whole Blood 178 mg/dL (75-99)
[2018-09-11] MEDS: CALCIUM CARB-VIT D 500MG-200UN 1 EACH TAB PO SCH (21:10)
[2018-09-11] MEDS: ATORVASTATIN 40 MG TAB PO SCH (21:10)
[2018-09-12] MEDS: HYDROmorphone 1 MG/ML 1 ML SYRINGE IVP PRN ×7 (01:00→21:39)
[2018-09-12] MEDS: oxyCODONE-APAP 10-325MG 1 EACH TAB PO PRN ×3 (05:43→19:54)
[2018-09-12] MEDS ORDERED: VANCOMYCIN 1,750 MG in SODIUM CHLORIDE 0.9% 500 ML 500 ML IVPB SCH (06:00)
[2018-09-12 07:19] LABS: Glucose,Whole Blood 204 mg/dL (75-99)
[2018-09-12] MEDS: PANTOPRAZOLE 40 MG TABLET PO SCH (07:42)
[2018-09-12] MEDS: SENNOSIDES 8.6 MG TAB PO SCH ×2 (07:43→19:56)
[2018-09-12] MEDS: amLODIPine 2.5 MG TAB PO SCH (07:43)
[2018-09-12] MEDS: MAGNESIUM OXIDE 400 MG TAB PO SCH ×2 (07:43→19:56)
[2018-09-12] MEDS: LORATADINE 10 MG TAB PO SCH (07:43)
[2018-09-12] MEDS: HEPARIN SODIUM,PORCINE 5,000 UNIT/ML 1 ML VIAL SQ SCH ×2 (07:43→19:56)
[2018-09-12] MEDS: OXYBUTYNIN 10 MG TAB.ER.24 PO SCH (07:44)
[2018-09-12] MEDS: IPRATROPIUM-ALBUTEROL 3 ML NEB INHALATION SCH ×4 (08:03→19:38)
[2018-09-12] MEDS: AZTREONAM 2 GM in SODIUM CHLORIDE 0.9% 100 ML IVPB SCH ×2 (09:30→19:56)
[2018-09-12 10:13] LABS: Calcium 8.1 mg/dL (8.4-10.2); Potassium 4.5 mmol/L (3.5-5.1)
[2018-09-12 10:34] LABS: Anisocytosis Slight; Basophils % (A) 1 %; Eosinophils # (A) 0.5 k/uL (0-0.7); Eosinophils % (A) 11 %; HCT 22.8 % (34.0-46.0); HGB 7.1 gm/dL (11.4-16.0); Hypochromasia Marked; Lymphocytes # (A) 1.3 k/uL (1.0-4.8); Lymphocytes % (A) 28 %; MCH 28.4 pg (25.0-35.0); MCV 91.9 fL (80.0-100.0); Mean Platelet Volume 6.2; Monocytes # (A) 0.3 k/uL (0-1.0); Monocytes % (A) 6 %; Neutrophils # (A) 2.4 k/uL (1.3-7.7); Neutrophils % (A) 51 %; Platelet Count 309 k/uL (150-450); RBC 2.48 m/uL (3.80-5.40); RDW 17.7 % (11.5-15.5); WBC 4.7 k/uL (3.8-10.6)
[2018-09-12] MEDS: MULTIVITAMINS, THERA 1 EACH TAB PO SCH (11:28)
[2018-09-12 12:08] LABS: Glucose,Whole Blood 176 mg/dL (75-99)
--- NOTE | 2018-09-12 16:43 | PN ---
PROGRESS NOTE DATE OF SERVICE: 09/12/2018 This 67-year-old woman who was admitted with significant decubitus ulcers is being closely monitored at this time. The patient is complaining of diffuse aches and pains also. The cultures showed MRSA, Proteus mirabilis and presumptive MRSA from multiple sources. The patient is on broad-spectrum IV antibiotics. No chest pain. No palpitations. No fever. On exam, alert and oriented x3. The pulse is 78, blood pressure 120/60, respiration 16, temperature 98.3, pulse ox 97% on room air. HEENT: Conjunctivae normal. NECK: No jugular venous distention. CARDIOVASCULAR SYSTEM: S1, S2 muffled. RESPIRATORY SYSTEM: Breath sounds diminished at the bases. No rhonchi. No crackles. ABDOMEN: Soft, non-tender. Colostomy present. [place] are removed. LEGS: No edema. No swelling. NERVOUS SYSTEM: No focal deficit. Decubitus ulcers present. LABS: WBC 4.7, hemoglobin 7.1. ASSESSMENT: 1. Multiple decubitus ulcers with possible sepsis, present on admission, with methicillin-resistant Staphylococcus aeruginosa as well as gram-negative with methicillin-resistant Staphylococcus aeruginosa as well as Proteus mirabilis. 2. Proteus mirabilis urinary tract infection. .. 3. History of recent subtotal colectomy for obstructive megacolon. 4. Hyperkalemia, mild, improved. 5. Atrial fibrillation. 6. Diabetes mellitus, type 2. 7. History of deep venous thrombosis. 8. Fibromyalgia. 9. Gastrointestinal bleed. 10.Hypertension. 11.Hyperlipidemia. 12.History of pneumonia. 13.History of fibromyalgia. 14.History of chronic kidney disease, stage III. 15.History of Clinton-en-Y gastric bypass surgery. 16.History of degenerative joint disease. 17.History of methicillin-resistant Staphylococcus aeruginosa. 18.History of supraventricular tachycardia. 19.History of atrial fibrillation. 20.History of bowel resection. 21.FULL CODE. RECOMMENDATIONS AND DISCUSSION: I recommend to continue current medications, continue with symptomatic treatment. Otherwise at this time I would recommend continuing with broad-spectrum IV antibiotics. Closely follow with Infectious Disease as well as Surgery. I would also recommend one unit transfusion. Further recommendations to follow. MMODL / IJN: [id number] /
[2018-09-12 16:46] LABS: Glucose,Whole Blood 146 mg/dL (75-99)
[2018-09-12] MEDS: DOXYCYCLINE 100 MG CAP PO SCH ×2 (17:47→19:54)
[2018-09-12] MEDS: CALCIUM CARB-VIT D 500MG-200UN 1 EACH TAB PO SCH (19:55)
[2018-09-12] MEDS: ATORVASTATIN 40 MG TAB PO SCH (19:55)
[2018-09-12 20:51] LABS: Glucose,Whole Blood 164 mg/dL (75-99)
--- NOTE | 2018-09-12 21:28 | P.PN ---
Subjective Progress Note Date: 09/12/18 Juancho well-known to the infectious disease service recently hospitalized because of underlying infection contributed to be urinary tract infection as well as chronic ulcerations. Follow up is being provided at this point in time Patient seems to be quite comfortable. She is much improved from the last time she was evaluated she was after her abdominal surgery. She is in bed lying comfortably eating her sandwich and not complaining of severe pain. She is denying fevers chills or rigors. Objective - Vital Signs Vital signs: Vital Signs Temp 98.5 F 09/12/18 14:39 Pulse 76 09/12/18 14:39 Resp 16 09/12/18 14:39 BP 130/63 09/12/18 14:39 Pulse Ox 97 09/12/18 14:39 Intake & Output 09/12/18 09/12/18 09/13/18 06:59 18:59 06:59 Intake Total 900 600 600 Output Total 1600 900 800 Balance -700 -300 -200 Intake: Oral 900 600 600 Output: Urine 1600 900 800 Other: Voiding Method Indwelling Catheter Indwelling Catheter # Bowel Movements 1 1 - Exam Obese 67-year-old woman who is comfortable at this time HEENT: Anicteric conjunctiva are pink and moist nasal mucosa grossly intact without significant lesions, there is no thrush. Neck: The neck is supple without significant lymphadenopathy or thyromegaly. Lungs: Good bilateral air entry without significant crackles or wheezing. There is no significant bronchial sounds. There is no egophony or dullness. Heart: Regular rate and rhythm with an audible S1-S2, no S3 no S4. There is no significant murmur click or rub, PMI was nondisplaced. Abdomen: Positive bowel sounds soft and nontender without palpable masses or organomegaly. There was no guarding or rebound. Extremities:please see the nursing documentation regarding the ulceration of the left leg Neuro: Patient is much more awake alert she's oriented to person place and time. - Labs CBC & Chem 7: 09/12/18 09:35 09/12/18 09:35 Labs: Abnormal Lab Results - Last 24 Hours (Table) 09/09/18 09/12/18 09/12/18 Range/Units 00:27 07:04 09:35 RBC 2.48 L (3.80-5.40) m/uL Hgb 7.1 L (11.4-16.0) gm/dL Hct 22.8 L (34.0-46.0) % RDW 17.7 H (11.5-15.5) % Chloride (98-107) mmol/L Carbon Dioxide (22-30) mmol/L BUN (7-17) mg/dL Glucose (74-99) mg/dL POC Glucose (mg/dL) 204 H (75-99) mg/dL Calcium (8.4-10.2) mg/dL Crossmatch See Detail 09/12/18 09/12/18 09/12/18 Range/Units 09:35 12:02 16:43 RBC (3.80-5.40) m/uL Hgb (11.4-16.0) gm/dL Hct (34.0-46.0) % RDW (11.5-15.5) % Chloride 115 H (98-107) mmol/L Carbon Dioxide 20 L (22-30) mmol/L BUN 22 H (7-17) mg/dL Glucose 167 H (74-99) mg/dL POC Glucose (mg/dL) 176 H 146 H (75-99) mg/dL Calcium 8.1 L (8.4-10.2) mg/dL Crossmatch 09/12/18 Range/Units 20:48 RBC (3.80-5.40) m/uL Hgb (11.4-16.0) gm/dL Hct (34.0-46.0) % RDW (11.5-15.5) % Chloride (98-107) mmol/L Carbon Dioxide (22-30) mmol/L BUN (7-17) mg/dL Glucose (74-99) mg/dL POC Glucose (mg/dL) 164 H (75-99) mg/dL Calcium (8.4-10.2) mg/dL Crossmatch Microbiology - Last 24 Hours (Table) 09/09/18 19:20 Anaerobic Culture - Final Buttock Anaerobic Gm Negative Bacilli 09/09/18 19:20 Anaerobic Culture - Preliminary Leg - Left 09/09/18 19:20 Gram Stain - Final Buttock Wound Culture - Final Proteus mirabilis Methicillin resist S. aureus 09/09/18 13:44 Blood Culture - Preliminary Blood No Growth after 72 hours 09/10/18 22:50 Urine Culture - Final Urine,Catheterized 09/09/18 19:20 Gram Stain - Final Leg - Left Wound Culture - Final Methicillin resist S. aureus Proteus mirabilis 09/09/18 13:30 Urine Culture - Final Urine,Catheterized Proteus mirabilis Assessment and Plan (1) Leg wound, left Current Visit: Yes Status: Acute Code(s): S81.802A - UNSPECIFIED OPEN WOUND , LEFT LOWER LEG, INITIAL ENCOUNTER SNOMED Code(s): 099367789 (2) Urinary tract infection Narrative/Plan: 67-year-old woman presents to Hospital from the extended care with some altered mentation and concerns for urinary tract infection. Cultures are coming back as positive and antibiotic therapy is being streamlined to oral doxycycline 100 mg orally twice per day as well as IV Azactam for treatment of the isolated pathogens Of MRSA and Proteus. She has had IV access with an Accucath Which can be utilized for 7 days at the extended care facility. Information is been provided for the discharge team. Current Visit: No Status: Acute Code(s): N39.0 - URINARY TRACT INFECTION, SITE NOT SPECIFIED SNOMED Code(s): 52903288
[2018-09-13] MEDS: HYDROmorphone 1 MG/ML 1 ML SYRINGE IVP PRN ×5 (01:02→16:21)
[2018-09-13] MEDS: oxyCODONE-APAP 10-325MG 1 EACH TAB PO PRN ×2 (02:03→13:44)
[2018-09-13] MEDS: IPRATROPIUM-ALBUTEROL 3 ML NEB INHALATION SCH ×3 (07:07→16:13)
[2018-09-13 07:26] LABS: Glucose,Whole Blood 137 mg/dL (75-99)
[2018-09-13] MEDS: amLODIPine 2.5 MG TAB PO SCH (07:58)
[2018-09-13] MEDS: PANTOPRAZOLE 40 MG TABLET PO SCH (07:59)
[2018-09-13] MEDS: DOXYCYCLINE 100 MG CAP PO SCH (07:59)
[2018-09-13] MEDS: OXYBUTYNIN 10 MG TAB.ER.24 PO SCH (07:59)
[2018-09-13] MEDS: SENNOSIDES 8.6 MG TAB PO SCH (07:59)
[2018-09-13] MEDS: MAGNESIUM OXIDE 400 MG TAB PO SCH (07:59)
[2018-09-13] MEDS: LORATADINE 10 MG TAB PO SCH (07:59)
[2018-09-13] MEDS: HEPARIN SODIUM,PORCINE 5,000 UNIT/ML 1 ML VIAL SQ SCH (07:59)
[2018-09-13] MEDS: AZTREONAM 2 GM in SODIUM CHLORIDE 0.9% 100 ML IVPB SCH (08:00)
[2018-09-13 09:36] LABS: Anisocytosis Slight; Basophils % (A) 1 %; Eosinophils # (A) 0.7 k/uL (0-0.7); Eosinophils % (A) 12 %; HCT 25.6 % (34.0-46.0); HGB 8.2 gm/dL (11.4-16.0); Hypochromasia Marked; Lymphocytes # (A) 1.9 k/uL (1.0-4.8); Lymphocytes % (A) 31 %; MCH 28.8 pg (25.0-35.0); Mean Platelet Volume 6.5; Monocytes # (A) 0.4 k/uL (0-1.0); Monocytes % (A) 7 %; Neutrophils # (A) 2.9 k/uL (1.3-7.7); Neutrophils % (A) 47 %; Platelet Count 268 k/uL (150-450); RBC 2.84 m/uL (3.80-5.40); RDW 17.5 % (11.5-15.5)
[2018-09-13] MEDS ORDERED: diphenhydrAMINE 25 MG CAP PO PRN (10:59)
[2018-09-13] MEDS: MULTIVITAMINS, THERA 1 EACH TAB PO SCH (11:20)
[2018-09-13 12:03] LABS: Glucose,Whole Blood 133 mg/dL (75-99)
--- NOTE | 2018-09-13 12:40 | P.DS ---
Providers Date of admission: 09/09/18 15:33 Expected date of discharge: 09/13/18 Attending physician: Haritha Lara Consults: 09/09/18 15:12 Consult Physician Stat Consulting Provider: Merary Kendrick Consult Reason/Comments: Decubitus ulcers Do you want consulting provider notified?: Yes Primary care physician: [facility] Course: Final Diagnoses: -Multiple decubitus ulcers of left leg, sacral with possible sepsis, proximal admission with MRSA as well as gram-negative and Proteus mirabilis. -UTI with Proteus mirabilis, suspect Lang catheter associated. -Recent subtotal colectomy for obstructive megacolon -Hyperkalemia, mild, resolved -Chronic atrial fibrillation -Diabetes mellitus type 2 -Chronic disease, stage III -Hypertension -Hyperlipidemia Hospital course: This is a 59-year-old female admitted with significant multiple decubitus ulcers and multiple other medical issues. Cultures reporting MRSA, gram-negative, proteus mirabilis. Maintained on IV antibiotics as per infectious disease. Receive 1 unit of packed RBCs, hemoglobin currently up to 8.2. Significant clinical improvement. Patient being discharged to subacute rehab in a stable condition with guarded prognosis pending clearance from infectious disease. EXAM: GENERAL: Alert and oriented 3, no acute distress. CV: Regular S1 and S2.LUNGS: Bilateral bases diminished. ABD: Soft, nontender, colostomy present. Positive bowel sounds.NEURO: No focal deficits. The impression and plan of care has been dictated as directed. : I performed a history and examination of this patient, discussed the same with the dictator. I agree with the dictator's note ,documented as a scribe. Any additional findings or plans will be noted. Time taken: 35 minutes Patient Condition at Discharge: Stable Plan - Discharge Summary New Discharge Prescriptions: Continue Atorvastatin [Lipitor] 40 mg PO HS Sennosides [Senokot] 17.2 mg PO BID rOPINIRole HCL [Requip] 0.5 mg PO HS Oxybutynin Chloride [Oxybutynin Chloride ER] 10 mg PO DAILY Multivitamins, Thera [Multivitamin (formulary)] 1 tab PO DAILY Calcium Carbonate/Vitamin D3 [Calcium 500-Vit D3 200 Tablet] 1 tab PO HS Biotin 300 mcg PO DAILY Magnesium Oxide [Mag-Ox] 400 mg PO BID Omeprazole 20 mg PO DAILY Loratadine [Claritin] 10 mg PO DAILY Polyethylene Glycol 3350 [Miralax] 17 gm PO HS amLODIPine [Norvasc] 2.5 mg PO DAILY tab Ipratropium-Albuterol Nebulize [Duoneb 0.5 mg-3 mg/3 ml Soln] 3 ml INHALATION RT-QID ampul.neb Prostat 30 ml PO BID@0700,1600 Ipratropium-Albuterol Nebulize [Duoneb 0.5 mg-3 mg/3 ml Soln] 3 ml INHALATION RT-Q4H PRN PRN Reason: Shortness Of Breath Or Wheezing INSULIN LISPRO (HumaLOG) [humaLOG] See Protocol SQ ACHS Lactulose [Cephulac] 30 gm PO TID PRN PRN Reason: Constipation Morphine Sulfate ER [Ms Contin] 15 mg PO TID@0500,1300,2100 #9 tablet oxyCODONE-APAP 10-325MG [Percocet 10-325 mg] 1 tab PO Q6H PRN #12 tab PRN Reason: Pain Discontinued Lisinopril [Zestril] 5 mg PO DAILY Discharge Medication List Atorvastatin [Lipitor] 40 mg PO HS 08/30/15 [History] Sennosides [Senokot] 17.2 mg PO BID 05/22/17 [History] Biotin 300 mcg PO DAILY 01/05/18 [History] Calcium Carbonate/Vitamin D3 [Calcium 500-Vit D3 200 Tablet] 1 tab PO HS [History] Multivitamins, Thera [Multivitamin (formulary)] 1 tab PO DAILY 01/05/18 [History ] Oxybutynin Chloride [Oxybutynin Chloride ER] 10 mg PO DAILY 01/05/18 [History] rOPINIRole HCL [Requip] 0.5 mg PO HS 01/05/18 [History] Magnesium Oxide [Mag-Ox] 400 mg PO BID 02/13/18 [History] Omeprazole 20 mg PO DAILY 02/13/18 [History] Loratadine [Claritin] 10 mg PO DAILY 06/10/18 [History] Polyethylene Glycol 3350 [Miralax] 17 gm PO HS 08/17/18 [History] Ipratropium-Albuterol Nebulize [Duoneb 0.5 mg-3 mg/3 ml Soln] 3 ml INHALATION RT -QID ampul.neb 08/30/18 [Rx] amLODIPine [Norvasc] 2.5 mg PO DAILY tab 08/30/18 [Rx] INSULIN LISPRO (HumaLOG) [humaLOG] See Protocol SQ ACHS 09/09/18 [History] Ipratropium-Albuterol Nebulize [Duoneb 0.5 mg-3 mg/3 ml Soln] 3 ml INHALATION RT -Q4H PRN 09/09/18 [History] Lactulose [Cephulac] 30 gm PO TID PRN 09/09/18 [History] Prostat 30 ml PO BID@0700,1600 09/09/18 [History] Morphine Sulfate ER [Ms Contin] 15 mg PO TID@0500,1300,2100 #9 tablet 09/13/18 [ Rx] oxyCODONE-APAP 10-325MG [Percocet 10-325 mg] 1 tab PO Q6H PRN #12 tab 09/13/18 [ Rx] Follow up Appointment(s)/Referral(s): Carlo Frederick MD [Primary Care Provider] - 1-2 days Merary Kendrick MD [STAFF PHYSICIAN] - 1 Week Patient Instructions/Handouts: Urinary Tract Infection in Women (DC) Activity/Diet/Wound Care/Special Instructions: Cardiac, diabetic diet. Up with assist, fall precautions, turn every 2 hours, stay off coccyx wound. Chronic lang, care per facility. Changed 09-10-18. MRSA positive this admission to hospital in wound. Wound care: 1- medahoney to the sacral pressure ulcer followed by moist dressing change daily 2- Aquacel silver dressing to the left posterior leg wound and changed every 48 hours 3-Right upper thigh wound, change dressing daily with dry ABD. Ostomy care per facility.
[2018-09-13 13:18] LABS: Calcium 8.4 mg/dL (8.4-10.2); Potassium 4.8 mmol/L (3.5-5.1)
[2018-09-13 14:48] VITALS: BP 131/60; PULSE 80; RESP 18; TEMP 99.3
[2018-09-13 17:07] LABS: Glucose,Whole Blood 170 mg/dL (75-99)
--- NOTE | 2018-09-14 07:35 | CDI ---
Documentation Clarification Form Date: 09/14/2018 7:21:53 AM From: Lillian Crump Phone: If you have a question about this query, please contact Shweta Evans Ground Crew Lines Person at [phone] between 8am and 5pm. Admit Date: 09/09/2018 3:33:00 PM Patient Name: Rain Lang Visit Number: [id number] Discharge Date: 09/13/2018 6:00:00 PM ATTENTION: The Clinical Documentation Specialists (CDI) and [facility] Coding Staff appreciate your assistance in clarifying documentation. Please respond to the clarification below the line at the bottom and electronically sign. The CDI & [facility] Coding staff will review the response and follow-up if needed. Please note: Queries are made part of the Legal Health Record. If you have any questions, please contact the author of this message via ITS. Dr. Haritha Lara Decubitus ulcers were documented in the H and P, progress notes and DCS . Clinical Indicators: Patient with MRSA and gram negative possible sepsis from multiple pressure ulcers. Location: Let leg, sacral, right gluteal Treatment: IV broad spectrum antibiotics Consults: ID monitoring In your professional opinion, can you please clarify the stage of these ulcers. Stage 1 Pressure/Decubitus Ulcer (intact skin, non-blanching redness of local area) Stage 2 Pressure/Decubitus Ulcer (Partial thickness, loss of dermis, pink wound bed) Stage 3 Pressure/Decubitus Ulcer (Full thickness tissue loss) Stage 4 Pressure/Decubitus Ulcer (Full thickness tissue loss with exposed bone, tendon, or muscle. May have slough or eschar present) Unstageable Other condition, please specify Unable to determine Please indicate etiology of pressure ulcer (if known). Stage 3 Pressure/Decubitus Ulcer (Full thickness tissue loss) MTDD
== END 2018-09-13 18:00 | DRG 871 ==
LOC: EC 11:44 → 4MS4W 15:33
PROVIDERS: ADMIT Hospitalist; ATTEND Hospitalist
PROC: 05HF33Z Insertion of Infusion Device into Left Cephalic Vein, Percutaneous Approach (ICD-10-PCS; principal; 2018-09-11 10:00)
DX: A41.02 Sepsis due to Methicillin resistant Staphylococcus aureus (principal); L89.893 Pressure ulcer of other site, stage 3; L89.153 Pressure ulcer of sacral region, stage 3; T83.518A Infection and inflammatory reaction due to other urinary catheter, initial encounter; N39.0 Urinary tract infection, site not specified; A41.59 Other Gram-negative sepsis; Y84.6 Urinary catheterization as the cause of abnormal reaction of the patient, or of later complication, without mention of misadventure at the time of the procedure; B96.4 Proteus (mirabilis) (morganii) as the cause of diseases classified elsewhere; M79.7 Fibromyalgia; N18.3 Chronic kidney disease, stage 3 (moderate); D64.9 Anemia, unspecified; E11.22 Type 2 diabetes mellitus with diabetic chronic kidney disease; E78.5 Hyperlipidemia, unspecified; E87.5 Hyperkalemia; G47.30 Sleep apnea, unspecified; G89.29 Other chronic pain; I12.9 Hypertensive chronic kidney disease with stage 1 through stage 4 chronic kidney disease, or unspecified chronic kidney disease; I48.2 Chronic atrial fibrillation; Z87.01 Personal history of pneumonia (recurrent); Z87.440 Personal history of urinary (tract) infections; Z93.3 Colostomy status; Z87.11 Personal history of peptic ulcer disease; Z79.4 Long term (current) use of insulin; Z79.899 Other long term (current) drug therapy; Z82.49 Family history of ischemic heart disease and other diseases of the circulatory system; Z83.3 Family history of diabetes mellitus; Z86.14 Personal history of Methicillin resistant Staphylococcus aureus infection; Z86.19 Personal history of other infectious and parasitic diseases; Z86.718 Personal history of other venous thrombosis and embolism; Z87.891 Personal history of nicotine dependence; Z88.0 Allergy status to penicillin; Z88.1 Allergy status to other antibiotic agents; Z90.49 Acquired absence of other specified parts of digestive tract; Z96.641 Presence of right artificial hip joint; Z96.652 Presence of left artificial knee joint; Z98.84 Bariatric surgery status; Z91.81 History of falling; Z79.891 Long term (current) use of opiate analgesic; Z88.7 Allergy status to serum and vaccine; Z88.8 Allergy status to other drugs, medicaments and biological substances; Z91.040 Latex allergy status; Z91.010 Allergy to peanuts; Z80.9 Family history of malignant neoplasm, unspecified
CPT/HCPCS: 36410; 36415; 72170; 76937; 80048; 80053; 80202; 81001; 83605; 85025; 86850; 86900; 86901; 86920; 87040; 87070; 87075; 87077; 87086; 87186; 87205; 96361; 96365; 96375; 96376; 99284

== ENCOUNTER 2018-09-16 13:44 | Inpatient (IN) | payer MEDICARE, OTHER ==
--- NOTE | 2018-09-16 14:03 | ED ---
Recheck HPI - General Chief Complaint: Recheck/Abnormal Lab/Rx Stated Complaint: Anemia Time Seen by Provider: 09/16/18 13:57 Source: patient, EMS, RN notes reviewed Mode of arrival: EMS Limitations: no limitations - History of Present Illness Initial Comments: This is a 67-year-old female with a history of multiple medical problems including cellulitis of left lower extremity chronic anemia chronic renal disease among other medical issues who is here today for a blood transfusion. She is found at the senior living she [facility] in to have a hemoglobin was 7.0 this was on a ladder was drawn yesterday. She complains of some weakness but she has no bleeding she does have a history of colostomy has not noticed any black or dark material coming from this she's had no nausea vomiting. She currently is on medications including treatment for MRSA in her urine. She voices no other complaints she states she's had multiple blood transfusions in the past. MD Complaint: abnormal lab - Related Data Home Medications Medication Instructions Recorded Confirmed Atorvastatin [Lipitor] 40 mg PO HS 08/30/15 09/16/18 Sennosides [Senokot] 17.2 mg PO BID 05/22/17 09/16/18 Biotin 300 mcg PO DAILY 01/05/18 09/16/18 Multivitamins, Thera [Multivitamin 1 tab PO DAILY 01/05/18 09/16/18 (formulary)] rOPINIRole HCL [Requip] 0.5 mg PO HS 01/05/18 09/16/18 Magnesium Oxide [Mag-Ox] 400 mg PO BID 02/13/18 09/16/18 Omeprazole 20 mg PO DAILY 02/13/18 09/16/18 Loratadine [Claritin] 10 mg PO DAILY 06/10/18 09/16/18 Polyethylene Glycol 3350 [Miralax] 17 gm PO HS 08/17/18 09/16/18 INSULIN LISPRO (HumaLOG) [humaLOG] See Protocol SQ ACHS 09/09/18 09/16/18 Ipratropium-Albuterol Nebulize 3 ml INHALATION RT-Q4H PRN 09/09/18 09/16/18 [Duoneb 0.5 mg-3 mg/3 ml Soln] Lactulose [Cephulac] 30 gm PO TID PRN 09/09/18 09/16/18 Prostat 30 ml PO BID@0700,1600 09/09/18 09/16/18 Calcium Carb-Vit D 500Mg-200Un 1 tab PO HS 09/16/18 09/16/18 [Oscal 500+D] Oxybutynin Chloride [Ditropan XL] 10 mg PO DAILY 09/16/18 09/16/18 Previous Rx's Medication Instructions Recorded Ipratropium-Albuterol Nebulize 3 ml INHALATION RT-QID ampul.neb 08/30/18 [Duoneb 0.5 mg-3 mg/3 ml Soln] amLODIPine [Norvasc] 2.5 mg PO DAILY tab 08/30/18 Aztreonam [Azactam] 2 gm IVPB Q12H #12 vial 09/13/18 Doxycycline Monohydrate [Monodox] 100 mg PO Q12HR #14 cap 09/13/18 Morphine Sulfate ER [Ms Contin] 15 mg PO TID@0500,1300,2100 #9 09/13/18 tablet oxyCODONE-APAP 10-325MG [Percocet 1 tab PO Q6H PRN #12 tab 09/13/18 10-325 mg] Allergies Allergy/AdvReac Type Severity Reaction Status Date / Time adhesive tape Allergy Severe Rash/Hives Verified 09/16/18 13:55 cephalexin monohydrate Allergy Severe Rash/Hives Verified 09/16/18 13:55 [From Keflex] influenza virus vaccine, Allergy Severe Anaphylaxis Verified 09/16/18 13:55 specific [influenza virus vacc,specific] latex Allergy Severe Rash/Hives Verified 09/16/18 13:55 peanut Allergy Severe Anaphylaxis Verified 09/16/18 13:55 Penicillins Allergy Severe Swelling Verified 09/16/18 13:55 tetanus toxoid, adsorbed Allergy Intermediate Rash/Hives Verified 09/16/18 13:55 baclofen Allergy Unknown Verified 09/16/18 13:55 Influenza Virus Vaccines Allergy Anaphylaxis Verified 09/16/18 13:55 Review of Systems ROS Statement: Those systems with pertinent positive or pertinent negative responses have been documented in the HPI. ROS Other: All systems not noted in ROS Statement are negative. Past Medical History Past Medical History: Atrial Fibrillation, Diabetes Mellitus, Deep Vein Thrombosis (DVT), Fibromyalgia, GI Bleed, Hyperlipidemia, Hypertension, Pneumonia, Renal Disease, Skin Disorder Additional Past Medical History / Comment(s): Chronic blood loss anemia, hypertension, hyperlipidemia, fibromyalgia, chronic stage III renal failure, morbid obesity, DVT left lower leg with a previous IVC filter in place, dermatitis, gastric ulcer with a previous [place]-en-Y gastric bypass surgery, chronic lower back pain, morbid obesity, previous history of severe sepsis w/ septic shock including septicemia with MRSA, SVT, DM type 2, hemorrhoids, cellulitis of left lower extremity, dysphagia, falls, muscle weakness, pneumonia , sleep apnea, bilateral tinnitus, atrial fibrillation, UTI. Left eye contusion/ left lower leg laceration - surgically repaired, Right heel pressure ulcer - healed, peripheral neuropathy (bilateral hands and feet), migraines, eczema, sinus problems, lower GI bleed. 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 Source:: Left Leg & Buttock-MRSA; Urine-VRE & ESBL Past Surgical History: Adenoidectomy, Bariatric Surgery, Bowel Resection, Cholecystectomy, Joint Replacement, Tonsillectomy, Tubal Ligation Additional Past Surgical History / Comment(s): Colostomy placed 2018, Gastric bypass, [place]-en-Y in 2003, [place] filter placement in 2000, teeth extraction , colonoscopy, EGD, hemorrhoidectomy, panniculectomy, D&C, hystoscopy x 2, LT KNEE replaced 2005-MRSA infection-hardware removed and cemented then replaced again, L hip repair with screw and total R hip REPLACEMENT, bilateral heel spurs removed, bilateral carpal tunnel releases, D&Cs, infusaport insertion since removed. Past Anesthesia/Blood Transfusion Reactions: Blood Transfusion Reaction Additional Past Anesthesia/Blood Transfusion Reaction / Comment(s): Per chart unspecified reaction. Past Psychological History: Anxiety, Depression Smoking Status: Former smoker Past Alcohol Use History: None Reported Past Drug Use History: Marijuana - Past Family History Father Family Medical History: Myocardial Infarction ([place]) Additional Family Medical History / Comment(s): AT AGE 46-[place] Mother Family Medical History: Diabetes Mellitus Additional Family Medical History / Comment(s): AT AGE 66 FROM COMPLICATIONS FROM DM Sister(s) Family Medical History: Diabetes Mellitus Brother(s) Family Medical History: Diabetes Mellitus Daughter(s) Family Medical History: Cancer Son(s) Family Medical History: No Reported History General Exam - General Exam Comments Initial Comments: Is a well-developed well-nourished awake alert oriented history female Limitations: no limitations General appearance: alert, anxious Head exam: Present: atraumatic, normocephalic, normal inspection Eye exam: Present: normal appearance, PERRL, EOMI. Absent: scleral icterus, conjunctival injection, periorbital swelling ENT exam: Present: normal exam, mucous membranes moist Neck exam: Present: normal inspection. Absent: tenderness, meningismus, lymphadenopathy Respiratory exam: Present: normal lung sounds bilaterally. Absent: respiratory distress, wheezes, rales, rhonchi, stridor Cardiovascular Exam: Present: regular rate, normal rhythm, normal heart sounds. Absent: systolic murmur, diastolic murmur, rubs, gallop, clicks GI/Abdominal exam: Present: soft, normal bowel sounds, other (Colostomy present) . Absent: distended, tenderness, guarding, rebound, rigid External exam: Present: other (Coffey catheter present with light yellow urine.) Extremities exam: Present: normal inspection, full ROM, normal capillary refill. Absent: tenderness, pedal edema, joint swelling, calf tenderness Back exam: Present: normal inspection Neurological exam: Present: alert, oriented X3, CN II-XII intact Psychiatric exam: Present: normal affect, normal mood Skin exam: Present: warm, dry, other (Left lower extremity does demonstrate wound in the process of healing.). Absent: rash Course Vital Signs 09/16/18 13:55 Temperature 98.6 F Pulse Rate 64 Respiratory 16 Rate Blood Pressure 112/56 O2 Sat by Pulse 97 Oximetry - Reevaluation(s) Reevaluation #1: 09/16/18 14:02 This is a well-developed well-nourished awake alert oriented history female Medical Decision Making - Medical Decision Making I did discuss findings with the patient she does demonstrate a hemoglobin level .4 she will receive 2 units of blood she'll be admitted for observation tonight. I did discuss the case with Dr. Bradley. - Lab Data Result diagrams: 09/16/18 14:13 09/16/18 14:13 Lab Results 09/16/18 09/16/18 09/16/18 Range/Units 14:13 14:13 14:13 WBC 6.2 (3.8-10.6) k/uL RBC 2.31 L (3.80-5.40) m/uL Hgb 6.4 L* D (11.4-16.0) gm/dL Hct 21.1 L (34.0-46.0) % MCV 91.2 (80.0-100.0) fL MCH 27.9 (25.0-35.0) pg MCHC 30.5 L (31.0-37.0) g/dL RDW 17.8 H (11.5-15.5) % Plt Count 294 (150-450) k/uL Neutrophils % 46 % Lymphocytes % 32 % Monocytes % 6 % Eosinophils % 14 % Basophils % 1 % Neutrophils # 2.8 (1.3-7.7) k/uL Lymphocytes # 2.0 (1.0-4.8) k/uL Monocytes # 0.4 (0-1.0) k/uL Eosinophils # 0.8 H (0-0.7) k/uL Basophils # 0.0 (0-0.2) k/uL Hypochromasia Marked Anisocytosis Slight Sodium 142 (137-145) mmol/L Potassium 4.9 (3.5-5.1) mmol/L Chloride 115 H (98-107) mmol/L Carbon Dioxide 22 (22-30) mmol/L Anion Gap 5 mmol/L BUN 30 H (7-17) mg/dL Creatinine 0.71 (0.52-1.04) mg/dL Est GFR (CKD-EPI)AfAm >90 (>60 ml/min/1.73 sqM) Est GFR (CKD-EPI)NonAf 88 (>60 ml/min/1.73 sqM) Glucose 123 H (74-99) mg/dL Calcium 8.3 L (8.4-10.2) mg/dL Magnesium 1.9 (1.6-2.3) mg/dL Total Bilirubin 0.2 (0.2-1.3) mg/dL AST 34 (14-36) U/L ALT 30 (9-52) U/L Alkaline Phosphatase 95 (38-126) U/L Total Protein 5.7 L (6.3-8.2) g/dL Albumin 2.4 L (3.5-5.0) g/dL Blood Type A Positive Blood Type Recheck No Antibody Screen NEGATIVE Spec Expiration Date 09/19/2018 - 2313 Disposition Clinical Impression: Anemia, Low hemoglobin Disposition: ADMITTED IP TO THIS HOSP Condition: Stable Referrals: Carlo Frederick MD [Primary Care Provider] - 1-2 days
[2018-09-16 14:56] LABS: Anisocytosis Slight; Basophils % (A) 1 %; Eosinophils # (A) 0.8 k/uL (0-0.7); Eosinophils % (A) 14 %; HCT 21.1 % (34.0-46.0); Hypochromasia Marked; Lymphocytes % (A) 32 %; MCH 27.9 pg (25.0-35.0); MCHC 30.5 g/dL (31.0-37.0); MCV 91.2 fL (80.0-100.0); Mean Platelet Volume 6.3; Monocytes # (A) 0.4 k/uL (0-1.0); Monocytes % (A) 6 %; Neutrophils # (A) 2.8 k/uL (1.3-7.7); Neutrophils % (A) 46 %; Platelet Count 294 k/uL (150-450); RBC 2.31 m/uL (3.80-5.40); RDW 17.8 % (11.5-15.5); WBC 6.2 k/uL (3.8-10.6)
[2018-09-16 15:01] LABS: HGB 6.4 gm/dL (11.4-16.0)
[2018-09-16 15:10] LABS: ALT 30 U/L (9-52); AST 34 U/L (14-36); Albumin 2.4 g/dL (3.5-5.0); Alkaline Phosphatase 95 U/L (38-126); Anion Gap 5 mmol/L; Blood Urea Nitrogen 30 mg/dL (7-17); Calcium 8.3 mg/dL (8.4-10.2); Carbon Dioxide 22 mmol/L (22-30); Chloride 115 mmol/L (98-107); Glucose 123 mg/dL (74-99); Magnesium 1.9 mg/dL (1.6-2.3); Potassium 4.9 mmol/L (3.5-5.1); Sodium 142 mmol/L (137-145); Total Bilirubin 0.2 mg/dL (0.2-1.3); Total Protein 5.7 g/dL (6.3-8.2)
[2018-09-16] MEDS ORDERED: NALOXONE 0.4 MG/ML 1 ML VIAL IV PRN (15:59)
[2018-09-16] MEDS ORDERED: SODIUM CHLORIDE 0.9% 1,000 ML IV SCH (16:00)
[2018-09-16] MEDS ORDERED: LACTULOSE 20 GM/30 ML CUP PO PRN (16:01)
[2018-09-16] MEDS ORDERED: oxyCODONE-APAP 10-325MG 1 EACH TAB PO PRN (16:01)
[2018-09-16] MEDS ORDERED: AZTREONAM 2 GM VIAL IVPB SCH (16:15)
[2018-09-16] MEDS: HEPARIN SODIUM,PORCINE 5,000 UNIT/ML 1 ML VIAL SQ SCH (17:38)
[2018-09-16] MEDS ORDERED: HYDROmorphone 0.5 MG/0.5 ML SYRINGE IVP PRN (17:41)
[2018-09-16] MEDS ORDERED: ALPRAZolam 0.25 MG TAB PO PRN (17:41)
[2018-09-16] MEDS ORDERED: TEMAZEPAM 15 MG CAP PO PRN (17:41)
[2018-09-16] MEDS ORDERED: ACETAMINOPHEN TAB 500 MG TAB PO PRN (17:41)
[2018-09-16] MEDS: DOXYCYCLINE 100 MG CAP PO SCH (17:44)
[2018-09-16 17:47] LABS: Glucose,Whole Blood 110 mg/dL (75-99)
[2018-09-16] MEDS: INSULIN ASPART (NovoLOG) 100 UNIT/ML VIAL SQ SCH ×2 (17:49→21:41)
[2018-09-16 18:06] VITALS: BMI 37.3
--- NOTE | 2018-09-16 19:34 | HP ---
HISTORY AND PHYSICAL CHIEF COMPLAINT: Anemia. HISTORY OF PRESENT ILLNESS: This 67-year-old woman with a past medical history of multiple medical problems including history of atrial ablation, history of diabetes and DVT, history of GERD, hypertension, hyperlipidemia, history of chronic blood-loss anemia, adenoidectomy, bariatric surgery, being followed by Dr. Frederick in [facility] was admitted with multiple decubitus ulcer, sacral. The patient had MRSA as well as the Proteus mirabilis. Patient has had UTI also. Patient with recent subtotal colectomy for toxic megacolon by Dr. Goel. The patient also had a colostomy. The patient also had chronic atrial fibrillation. The patient also has multiple pain syndromes also. Currently the patient is being brought back to [facility]. Hemoglobin was 7, now with a hemoglobin of 6.4, and the patient is complaining of tiredness and weakness. Patient is extremely pale also. No acute bleeding is noted. The patient admitted for evaluation. The patient had on and off anemia previously showed multifactorial. Patient had gastric bypass surgery and Dr. Worrell has evaluated last year and thought that anemia multifactorial and could be because of chronic blood loss along with after effect of surgery as well. Transfusion has been arranged at this time. There is no history of fever, rigors. No headache, loss consciousness, seizures at this time. PAST MEDICAL HISTORY: History of gastric bypass, history atrial ablation, diabetes, DVT, GI bleed, history of recent ulcers as mentioned sacral as was the left leg ulcers. MEDICATIONS: Prior to admission home medications are reviewed and include: 1. Requip 0.5 mg q.h.s. 2. Oxycodone 1 tablet every 6 hours p.r.n. 3. Norvasc 2.5 mg daily. 4. Senokot 17.2 p.o. b.i.d. 5. ProStat 30 mL b.i.d. 6. MiraLAX 17 g q.h.s. 7. Ditropan 10 mg. 8. Omeprazole 20 mg daily. 9. Multivitamins 1 p.o. daily. 10.MS Contin 50 mg t.i.d. 11.Magnesium oxide 400 mg b.i.d. 12.Claritin 10 mg p.o. daily. 13.Cephulac 30 g p.o. t.i.d. p.r.n. 14.DuoNeb q.i.d. and p.r.n. 15.NovoLog to scale. 16.100 mg p.o. b.i.d. 17.Os-Jevon with Vitamin D 1 p.o. daily. 18.Biotin 300 mg daily. 19.Azactam 2 g IV b.i.d. 20.Lipitor 40 mg q.h.s. ALLERGIES: ADHESIVE TAPES, CEPHALEXIN, INFLUENZA VIRUS, LATEX, PEANUT ALLERGIES, TETANUS TOXOID, BACLOFEN. FAMILY HISTORY: History of myocardial infarction in les age 45. SOCIAL HISTORY: Previous history of smoking. No history of current smoking or alcohol intake. REVIEW OF SYSTEMS: ENT: Diminished hearing and vision. CARDIOVASCULAR: As mentioned. RESPIRATORY: As mentioned earlier. GI: No nausea. : No dysuria. NERVOUS SYSTEM: No numbness or weakness. ALLERGY/IMMUNOLOGY: No asthma. MUSCULOSKELETAL: As mentioned earlier. HEMATOLOGY: As mentioned earlier. ENDOCRINE: As mentioned. CONSTITUTIONAL As mentioned. DERMATOLOGY: Negative. RHEUMATOLOGY: Negative. PSYCHIATRY: As mentioned earlier. EXAMINATION: Patient is alert, oriented x2. Pulse 69, pressure 154/67, respirations 16, temperature 97.6, pulse ox 100 percent on room air. HEENT: Conjunctivae pale. Oral mucosa is pale. Neck is no jugular venous distention. No carotid bruit. No lymph node enlargement. CARDIOVASCULAR: S1, S2. RESPIRATORY: Breath sounds diminished in the bases. Bilateral scattered rhonchi and crackles. ABDOMEN: Soft, obese. Nontender. No mass palpable. LEGS: No edema. NERVOUS SYSTEM: Higher function as mentioned. Moves all four limbs. Mildly diffuse weakness. LYMPHATICS: No lymphadenopathy in the neck, axillae, groin. SKIN: No left leg ulcer and as well as decubitus ulcer present. LABS: WBC 6, hemoglobin 6.2, sodium 140, potassium 4.9. Calcium is 8.3. ASSESSMENT: 1. Anemia acute on chronic symptomatic anemia. 2. Rule out acute on chronic gastrointestinal blood loss. 3. History of recent multiple decubitus ulcers of the sacral and left leg with sepsis with methicillin-resistant Staphylococcus aeruginosa and Proteus mirabilis. 4. History of recent urinary tract infection. 5. Chronic atrial fibrillation. 6. History of bariatric surgery. 7. History of diabetes mellitus type 2. 8. History of deep vein thrombosis. 9. Fibromyalgia. 10.Hypertension. 11.Hyperlipidemia. 12.History of pneumonia. 13.History of chronic blood loss. 14.Hyperlipidemia. 15.Chronic renal failure stage 3. 16.Morbid obesity. 17.History of IVC filter. 18.History of previous [place]-en-Y bypass surgery. 19.History of MRSA. 20.History of supraventricular tachycardia. 21.History of diabetes type 2. 22.History hemorrhoids. 23.History of cellulitis. 24.History of sleep apnea. 25.History of ESBL, MRSA and VRE .. 26.History of bowel resection. 27.History of anxiety, depression. 28.Remote history of nicotine dependence. 29.FULL CODE. RECOMMENDATIONS AND DISCUSSION: In this 67-year-old woman who presented with multiple complex medical issues, will will monitor the patient closely. Continue the current management and symptomatic treatment. At this time I recommend continue the current medications. Continue the antibiotics. Transfusion. I would also recommend Hematology/Oncology evaluation and Gastroenterology evaluation. Also prognosis guarded because of multiple complex medical issues. I would resume the rest of medications. Pain medications. Guarded prognosis. Further recommendations to follow. Copy of dictation forwarded to Dr. Frederick who is the primary care physician. MMLARON / BARBARAN: [id number] / MTDD
[2018-09-16] MEDS: IPRATROPIUM-ALBUTEROL 3 ML NEB INHALATION SCH (19:45)
[2018-09-16 20:12] LABS: Glucose,Whole Blood 172 mg/dL (75-99)
[2018-09-16] MEDS: MAGNESIUM OXIDE 400 MG TAB PO SCH (20:54)
[2018-09-16] MEDS: SENNOSIDES 8.6 MG TAB PO SCH (20:55)
[2018-09-16] MEDS: MORPHINE SULFATE ER 15 MG TABLET PO SCH (20:59)
[2018-09-16] MEDS ORDERED: CALCIUM CARB-VIT D 500MG-200UN 1 EACH TAB PO SCH (21:00)
[2018-09-16] MEDS ORDERED: ATORVASTATIN 40 MG TAB PO SCH (21:00)
[2018-09-16] MEDS ORDERED: POLYETHYLENE GLYCOL 3350 17 GM POWD.PACK PO SCH (21:00)
[2018-09-16] MEDS: AZTREONAM 2 GM in SODIUM CHLORIDE 0.9% 100 ML IVPB SCH (21:08)
[2018-09-16 21:32] VITALS: RESP 16
[2018-09-17] MEDS: HEPARIN SODIUM,PORCINE 5,000 UNIT/ML 1 ML VIAL SQ SCH ×2 (01:24→07:38)
[2018-09-17] MEDS: DOXYCYCLINE 100 MG CAP PO SCH (05:59)
[2018-09-17] MEDS: MORPHINE SULFATE ER 15 MG TABLET PO SCH ×2 (05:59→12:05)
[2018-09-17] MEDS: IPRATROPIUM-ALBUTEROL 3 ML NEB INHALATION SCH ×2 (06:44→11:01)
[2018-09-17] MEDS ORDERED: PROSTAT PO SCH (07:00)
[2018-09-17] MEDS ORDERED: PANTOPRAZOLE 40 MG TABLET PO SCH (07:30)
[2018-09-17 07:38] LABS: Glucose,Whole Blood 121 mg/dL (75-99)
[2018-09-17] MEDS: INSULIN ASPART (NovoLOG) 100 UNIT/ML VIAL SQ SCH ×2 (07:38→12:02)
[2018-09-17] MEDS: SENNOSIDES 8.6 MG TAB PO SCH (07:38)
[2018-09-17] MEDS: AZTREONAM 2 GM in SODIUM CHLORIDE 0.9% 100 ML IVPB SCH (07:39)
[2018-09-17] MEDS: MAGNESIUM OXIDE 400 MG TAB PO SCH (07:39)
[2018-09-17 07:43] LABS: Anisocytosis Slight; Basophils % (A) 1 %; Eosinophils # (A) 0.8 k/uL (0-0.7); Eosinophils % (A) 12 %; HCT 24.4 % (34.0-46.0); HGB 7.7 gm/dL (11.4-16.0); Hypochromasia Marked; Lymphocytes # (A) 2.5 k/uL (1.0-4.8); Lymphocytes % (A) 39 %; MCH 28.6 pg (25.0-35.0); MCHC 31.4 g/dL (31.0-37.0); MCV 90.9 fL (80.0-100.0); Mean Platelet Volume 6.3; Monocytes # (A) 0.4 k/uL (0-1.0); Monocytes % (A) 6 %; Neutrophils # (A) 2.6 k/uL (1.3-7.7); Neutrophils % (A) 41 %; Platelet Count 267 k/uL (150-450); RBC 2.69 m/uL (3.80-5.40); RDW 16.9 % (11.5-15.5); WBC 6.4 k/uL (3.8-10.6)
[2018-09-17 07:52] LABS: Anion Gap 5 mmol/L; Blood Urea Nitrogen 27 mg/dL (7-17); Calcium 8.5 mg/dL (8.4-10.2); Carbon Dioxide 22 mmol/L (22-30); Chloride 114 mmol/L (98-107); Glucose 109 mg/dL (74-99); Potassium 4.8 mmol/L (3.5-5.1); Sodium 141 mmol/L (137-145)
[2018-09-17 08:47] VITALS: BP 129/69; TEMP 96.6
[2018-09-17] MEDS ORDERED: NON-FORMULARY DRUG (Biotin [Biotin] 300 MCG) PO SCH (09:00)
[2018-09-17] MEDS ORDERED: LORATADINE 10 MG TAB PO SCH (09:00)
[2018-09-17] MEDS ORDERED: OXYBUTYNIN 10 MG TAB.ER.24 PO SCH (09:00)
[2018-09-17] MEDS ORDERED: amLODIPine 2.5 MG TAB PO SCH (09:00)
[2018-09-17] MEDS ORDERED: MULTIVITAMINS, THERA 1 EACH TAB PO SCH (09:00)
[2018-09-17 11:11] VITALS: PULSE 78
[2018-09-17 11:47] LABS: Glucose,Whole Blood 114 mg/dL (75-99)
--- NOTE | 2018-09-17 11:49 | P.DS ---
Providers Date of admission: 09/17/18 10:28 Attending physician: Antonette Bradley MD Consults: 09/16/18 17:41 Consult Physician Routine Consulting Provider: Johnnie Palumbo Consult Reason/Comments: anemia Do you want consulting provider notified?: Yes 09/16/18 17:46 Consult Physician Routine Consulting Provider: Jeovany Lyn Consult Reason/Comments: gi blood loss?? Do you want consulting provider notified?: Yes Primary care physician: [facility] Course: Final diagnosis Anemia acute on chronic symptomatic anemia status post blood transfusion probably GI blood loss multiple decubitus ulcers of the sacrum and the left leg MRSA and the Proteus mirabilis Recent UTI Chronic atrial fibrillation History of bariatric surgery History of for diabetes mellitus type 2 History of DVT Fibromyalgia Hypertension Hyperlipidemia History of pneumonia History of chronic blood loss Hyperlipidemia Chronic renal failure stage III Morbid obesity History IVC filter History of lumbar bypass surgery History of for SVT History of diabetes mellitus type 2 History of cellulitis History of sleep apnea apnea MRSA and VRE History bowel resection anxiety depression remote history and nicotine dependence Full code History of present illness this 67-year-old woman with a past medical history multiple medical problems was admitted with acute on chronic symptomatic blood loss anemia. Hemoglobin of 6.4. Patient was transfused. Hemoglobin went up to 7.7. Patient is feeling better. Patient be discharged in a stable condition with guarded prognosis. Please refer to the discharge and notes and the details for the medications. Please note the patient had extensive workup previously for GI blood loss from Dr. Thompson. Recommend close follow-up with Dr. Thompson in the outpatient setting. On exam vitals are stable. Cardio S1 and S2 normal. Abdomen soft nontender. No system no focal deficit. Diffusely weak. Skin ulcers present. Patient Condition at Discharge: Stable Plan - Discharge Summary New Discharge Prescriptions: No Action Atorvastatin [Lipitor] 40 mg PO HS Sennosides [Senokot] 17.2 mg PO BID rOPINIRole HCL [Requip] 0.5 mg PO HS Multivitamins, Thera [Multivitamin (formulary)] 1 tab PO DAILY Biotin 300 mcg PO DAILY Magnesium Oxide [Mag-Ox] 400 mg PO BID Omeprazole 20 mg PO DAILY Loratadine [Claritin] 10 mg PO DAILY Polyethylene Glycol 3350 [Miralax] 17 gm PO HS amLODIPine [Norvasc] 2.5 mg PO DAILY tab Ipratropium-Albuterol Nebulize [Duoneb 0.5 mg-3 mg/3 ml Soln] 3 ml INHALATION RT-QID ampul.neb Prostat 30 ml PO BID@0700,1600 Ipratropium-Albuterol Nebulize [Duoneb 0.5 mg-3 mg/3 ml Soln] 3 ml INHALATION RT-Q4H PRN PRN Reason: Shortness Of Breath Or Wheezing INSULIN LISPRO (HumaLOG) [humaLOG] See Protocol SQ ACHS Lactulose [Cephulac] 30 gm PO TID PRN PRN Reason: Constipation Morphine Sulfate ER [Ms Contin] 15 mg PO TID@0500,1300,2100 #9 tablet oxyCODONE-APAP 10-325MG [Percocet 10-325 mg] 1 tab PO Q6H PRN #12 tab PRN Reason: Pain Aztreonam [Azactam] 2 gm IVPB Q12H #12 vial Doxycycline Monohydrate [Monodox] 100 mg PO Q12HR #14 cap Calcium Carb-Vit D 500Mg-200Un [Oscal 500+D] 1 tab PO HS Oxybutynin Chloride [Ditropan XL] 10 mg PO DAILY Discharge Medication List Atorvastatin [Lipitor] 40 mg PO HS 08/30/15 [History] Sennosides [Senokot] 17.2 mg PO BID 05/22/17 [History] Biotin 300 mcg PO DAILY 01/05/18 [History] Multivitamins, Thera [Multivitamin (formulary)] 1 tab PO DAILY 01/05/18 [History ] rOPINIRole HCL [Requip] 0.5 mg PO HS 01/05/18 [History] Magnesium Oxide [Mag-Ox] 400 mg PO BID 02/13/18 [History] Omeprazole 20 mg PO DAILY 02/13/18 [History] Loratadine [Claritin] 10 mg PO DAILY 06/10/18 [History] Polyethylene Glycol 3350 [Miralax] 17 gm PO HS 08/17/18 [History] Ipratropium-Albuterol Nebulize [Duoneb 0.5 mg-3 mg/3 ml Soln] 3 ml INHALATION RT -QID ampul.neb 08/30/18 [Rx] amLODIPine [Norvasc] 2.5 mg PO DAILY tab 08/30/18 [Rx] INSULIN LISPRO (HumaLOG) [humaLOG] See Protocol SQ ACHS 09/09/18 [History] Ipratropium-Albuterol Nebulize [Duoneb 0.5 mg-3 mg/3 ml Soln] 3 ml INHALATION RT -Q4H PRN 09/09/18 [History] Lactulose [Cephulac] 30 gm PO TID PRN 09/09/18 [History] Prostat 30 ml PO BID@0700,1600 09/09/18 [History] Aztreonam [Azactam] 2 gm IVPB Q12H #12 vial 09/13/18 [Rx] Doxycycline Monohydrate [Monodox] 100 mg PO Q12HR #14 cap 09/13/18 [Rx] Morphine Sulfate ER [Ms Contin] 15 mg PO TID@0500,1300,2100 #9 tablet 09/13/18 [ Rx] oxyCODONE-APAP 10-325MG [Percocet 10-325 mg] 1 tab PO Q6H PRN #12 tab 09/13/18 [ Rx] Calcium Carb-Vit D 500Mg-200Un [Oscal 500+D] 1 tab PO HS 09/16/18 [History] Oxybutynin Chloride [Ditropan XL] 10 mg PO DAILY 09/16/18 [History] Follow up Appointment(s)/Referral(s): Carlo Frederick MD [Primary Care Provider] - 1-2 days
== END 2018-09-17 14:17 | DRG 812 ==
LOC: EC 13:44 → 4MS4W 15:59 → OBSVTOIN 09-17 10:28
PROVIDERS: ADMIT Internal Medicine; ATTEND Internal Medicine
PROC: 30233N1 Transfusion of Nonautologous Red Blood Cells into Peripheral Vein, Percutaneous Approach (ICD-10-PCS; principal; 2018-09-16)
DX: D62 Acute posthemorrhagic anemia (principal); L03.116 Cellulitis of left lower limb; L97.829 Non-pressure chronic ulcer of other part of left lower leg with unspecified severity; D50.0 Iron deficiency anemia secondary to blood loss (chronic); L89.159 Pressure ulcer of sacral region, unspecified stage; E11.622 Type 2 diabetes mellitus with other skin ulcer; E11.22 Type 2 diabetes mellitus with diabetic chronic kidney disease; E11.42 Type 2 diabetes mellitus with diabetic polyneuropathy; E66.01 Morbid (severe) obesity due to excess calories; I48.2 Chronic atrial fibrillation; R13.10 Dysphagia, unspecified; N18.3 Chronic kidney disease, stage 3 (moderate); I12.9 Hypertensive chronic kidney disease with stage 1 through stage 4 chronic kidney disease, or unspecified chronic kidney disease; H93.13 Tinnitus, bilateral; L30.9 Dermatitis, unspecified; G43.909 Migraine, unspecified, not intractable, without status migrainosus; K21.9 Gastro-esophageal reflux disease without esophagitis; M79.7 Fibromyalgia; E78.5 Hyperlipidemia, unspecified; F41.8 Other specified anxiety disorders; G47.30 Sleep apnea, unspecified; G89.29 Other chronic pain; M54.5 Low back pain; Z68.36 Body mass index [BMI] 36.0-36.9, adult; Z79.899 Other long term (current) drug therapy; Z79.4 Long term (current) use of insulin; Z79.891 Long term (current) use of opiate analgesic; Z93.3 Colostomy status; Z86.718 Personal history of other venous thrombosis and embolism; Z87.01 Personal history of pneumonia (recurrent); Z95.828 Presence of other vascular implants and grafts; Z98.84 Bariatric surgery status; Z86.14 Personal history of Methicillin resistant Staphylococcus aureus infection; Z86.19 Personal history of other infectious and parasitic diseases; Z96.652 Presence of left artificial knee joint; Z96.641 Presence of right artificial hip joint; Z87.891 Personal history of nicotine dependence; Z87.11 Personal history of peptic ulcer disease; Z98.51 Tubal ligation status; Z87.440 Personal history of urinary (tract) infections; Z90.49 Acquired absence of other specified parts of digestive tract; Z88.1 Allergy status to other antibiotic agents; Z91.040 Latex allergy status; Z91.010 Allergy to peanuts; Z88.0 Allergy status to penicillin; Z88.7 Allergy status to serum and vaccine; Z88.8 Allergy status to other drugs, medicaments and biological substances; Z91.048 Other nonmedicinal substance allergy status; Z82.49 Family history of ischemic heart disease and other diseases of the circulatory system; Z83.3 Family history of diabetes mellitus; Z80.9 Family history of malignant neoplasm, unspecified
CPT/HCPCS: 36415; 80048; 80053; 83735; 85025; 86850; 86900; 86901; 86920; 94640; 99285

== ENCOUNTER 2018-12-11 11:00 | Emergency (ER) | payer MEDICARE, OTHER ==
[2018-12-11] MEDS ORDERED: PANTOPRAZOLE 40 MG/10 ML VIAL IVP STA (11:14)
--- NOTE | 2018-12-11 11:23 | ED ---
General Adult HPI - General Chief complaint: Abdominal Pain Stated complaint: Abd Pain Time Seen by Provider: 12/11/18 11:05 Source: patient, EMS, RN notes reviewed, old records reviewed Mode of arrival: EMS Limitations: physical limitation - History of Present Illness Initial comments: 68-year-old female presented from residential for evaluation of low hemoglobin. Patient has dealt with chronic anemia requiring transfusions. She is also being sent for evaluation of fever. She had an elevated temperature over the past 48 hours. Patient states she was recently treated for pneumonia. She is currently bedbound, has colostomy, and chronic indwelling Salguero catheter. She denies melena from her ostomy. She does complain of some abdominal pain but states she's had chronic abdominal pain for several years which is unchanged from baseline. No increase or worsening cough. She is also being treated for chronic wound left lower extremity status post fall and laceration this occurred several years ago and has required skin grafting. - Related Data Home Medications Medication Instructions Recorded Confirmed Atorvastatin [Lipitor] 40 mg PO HS 08/30/15 12/11/18 Sennosides [Senokot] 17.2 mg PO BID 05/22/17 12/11/18 Biotin 300 mcg PO DAILY 01/05/18 12/11/18 Multivitamins, Thera [Multivitamin 1 tab PO DAILY 01/05/18 12/11/18 (formulary)] rOPINIRole HCL [Requip] 0.5 mg PO HS 01/05/18 12/11/18 Magnesium Oxide [Mag-Ox] 400 mg PO BID 02/13/18 12/11/18 Omeprazole 20 mg PO DAILY 02/13/18 12/11/18 Loratadine [Claritin] 10 mg PO DAILY 06/10/18 12/11/18 Polyethylene Glycol 3350 [Miralax] 17 gm PO HS 08/17/18 12/11/18 INSULIN LISPRO (HumaLOG) [humaLOG] See Protocol SQ ACHS 09/09/18 12/11/18 Ipratropium-Albuterol Nebulize 3 ml INHALATION RT-Q4H PRN 09/09/18 12/11/18 [Duoneb 0.5 mg-3 mg/3 ml Soln] Lactulose [Cephulac] 10 ml PO DAILY PRN 09/09/18 12/11/18 Prostat 30 ml PO BID@0700,1600 09/09/18 12/11/18 Calcium Carb-Vit D 500Mg-200Un 1 tab PO HS 09/16/18 12/11/18 [Oscal 500+D] Oxybutynin Chloride [Ditropan XL] 10 mg PO DAILY 09/16/18 12/11/18 Acetaminophen [Tylenol Extra 500 mg PO TID PRN 10/16/18 12/11/18 Strength] Morphine Sulfate ER [Ms Contin] 15 mg PO TID 10/16/18 12/11/18 DULoxetine HCL [Cymbalta] 30 mg PO DAILY 12/11/18 12/11/18 Hydrocortisone Cream 1 applic TOPICAL BID 12/11/18 12/11/18 [Hydrocortisone 2.5% Cream] Mometasone Furoate 1 applic TOPICAL BID 12/11/18 12/11/18 Mupirocin 2% Oint [Bactroban 2% 1 applic TOPICAL BID 12/11/18 12/11/18 Oint] Nystatin 100,000Unit/gm Cream 1 applic TOPICAL BID 12/11/18 12/11/18 [Mycostatin Cream] Previous Rx's Medication Instructions Recorded oxyCODONE-APAP 10-325MG [Percocet 1 tab PO Q6H PRN #8 tab 09/17/18 10-325 mg] Levofloxacin [Levaquin] 500 mg PO DAILY 3 Days #5 tab 12/11/18 Allergies Allergy/AdvReac Type Severity Reaction Status Date / Time adhesive tape Allergy Severe Rash/Hives Verified 12/11/18 11:05 cephalexin monohydrate Allergy Severe Rash/Hives Verified 12/11/18 11:05 [From Ad.IQ] influenza virus vaccine, Allergy Severe Anaphylaxis Verified 12/11/18 11:05 specific [influenza virus vacc,specific] latex Allergy Severe Rash/Hives Verified 12/11/18 11:05 peanut Allergy Severe Anaphylaxis Verified 12/11/18 11:05 Penicillins Allergy Severe Swelling Verified 12/11/18 11:05 tetanus toxoid, adsorbed Allergy Intermediate Rash/Hives Verified 12/11/18 11:05 baclofen Allergy Unknown Verified 12/11/18 11:05 Influenza Virus Vaccines Allergy Anaphylaxis Verified 12/11/18 11:05 Review of Systems ROS Statement: Those systems with pertinent positive or pertinent negative responses have been documented in the HPI. ROS Other: All systems not noted in ROS Statement are negative. Past Medical History Past Medical History: Atrial Fibrillation, Diabetes Mellitus, Deep Vein Thrombosis (DVT), Fibromyalgia, GERD/Reflux, GI Bleed, Hyperlipidemia, Hypertension, Pneumonia, Renal Disease, Skin Disorder, Sleep Apnea/CPAP/BIPAP, Supraventricular Tachycardia (SVT), Vascular Disorder Additional Past Medical History / Comment(s): Chronic blood loss anemia, chronic stage III renal failure, morbid obesity, DVT lt lower leg w/ prev IVC filter in place, dermatitis, gastric ulcer w/ Clinton-en-Y gastric bypass, chronic lower back pain, morbid obesity, prev hx severe sepsis w/ septic shock/septicemia w/ MRSA, hemorrhoids, cellulitis of LLE, dysphagia, falls, muscle weakness, bilat tinnitus, UTI. peripheral neuropathy (bilat hands/feet), migraines, eczema, sinus problems, lower GI bleed. SALGUERO, COLOSTOMY. DECUBITUS ULCER. 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 Source:: Left Leg & Buttock-MRSA; Urine-VRE & ESBL Past Surgical History: Adenoidectomy, Bariatric Surgery, Bowel Resection, Cholecystectomy, Joint Replacement, Tonsillectomy, Tubal Ligation Additional Past Surgical History / Comment(s): Colostomy 2018, Gastric bypass/Clinton-en-Y in 2003, Lizzy filter 2000, teeth extraction, colonoscopy, EGD, hemorrhoidectomy, panniculectomy, D&C, hystoscopy x 2, LT KNEE replaced 2005-MRSA infection-hardware removed/cemented then replaced again, ORIF L hip repair, total R hip REPLACEMENT, bilat heel spurs removed, bilat CTR, infusaport insertion - since removed. Past Anesthesia/Blood Transfusion Reactions: Blood Transfusion Reaction Additional Past Anesthesia/Blood Transfusion Reaction / Comment(s): Per chart unspecified reaction. Past Psychological History: Anxiety, Depression Smoking Status: Former smoker Past Alcohol Use History: None Reported Past Drug Use History: None Reported - Past Family History Father Family Medical History: Myocardial Infarction ([place]) Additional Family Medical History / Comment(s): AT AGE 46-MO Mother Family Medical History: Diabetes Mellitus Additional Family Medical History / Comment(s): AT AGE 66 FROM COMPLICATIONS FROM DM Sister(s) Family Medical History: Diabetes Mellitus Brother(s) Family Medical History: Diabetes Mellitus Daughter(s) Family Medical History: Cancer Son(s) Family Medical History: No Reported History General Exam Limitations: physical limitation General appearance: alert, in no apparent distress Head exam: Present: atraumatic, normocephalic Eye exam: Present: normal appearance, PERRL ENT exam: Present: normal exam Neck exam: Present: normal inspection. Absent: tenderness, meningismus Respiratory exam: Present: normal lung sounds bilaterally. Absent: respiratory distress, wheezes, rales, rhonchi Cardiovascular Exam: Present: regular rate, normal rhythm GI/Abdominal exam: Present: soft, other (Colostomy with brown stool, no melena, no bright red blood). Absent: distended, tenderness Extremities exam: Present: other (Patient has a wound to the left lower extremity, there is mild erythema consistent with healing, no fluctuance.) Neurological exam: Present: alert, oriented X3, CN II-XII intact Psychiatric exam: Present: normal affect, normal mood Skin exam: Present: warm, dry. Absent: cyanosis, diaphoretic Course Vital Signs 12/11/18 11:08 Temperature 99.1 F Pulse Rate 83 Respiratory 18 Rate Blood Pressure 139/62 O2 Sat by Pulse 94 L Oximetry Medical Decision Making - Medical Decision Making 68-year-old female presented for evaluation of low hemoglobin as well as fever. Patient is afebrile here stable vitals. Hemoglobin is rechecked in the emergency department, 8.0 which is improved from previous 7.7. She has a normal white blood cell count. Urinalysis is positive for infection. Urine culture and blood cultures are pending. Stool is heme-negative. Chest x-ray does show improved aeration over this concern for infiltrate versus atelectasis. Patient denies worsening cough. Begin a history of fever as well as urinary tract infection. She will be started on antibiotics. I offered this patient admission to hospital for IV antibiotics. She declines. She prefers discharge, she can be monitored at the residential. Diagnosis: Anemia stable, pneumonia, UTI - Lab Data Result diagrams: 12/11/18 11:35 12/11/18 11:35 Lab Results 12/11/18 12/11/18 12/11/18 Range/Units 11:35 11:35 11:35 WBC 7.4 (3.8-10.6) k/uL RBC 3.22 L (3.80-5.40) m/uL Hgb 8.0 L (11.4-16.0) gm/dL Hct 26.9 L (34.0-46.0) % MCV 83.6 (80.0-100.0) fL MCH 25.0 (25.0-35.0) pg MCHC 29.9 L (31.0-37.0) g/dL RDW 16.3 H (11.5-15.5) % Plt Count 295 (150-450) k/uL Neutrophils % 66 % Lymphocytes % 21 % Monocytes % 4 % Eosinophils % 7 % Basophils % 0 % Neutrophils # 4.9 (1.3-7.7) k/uL Lymphocytes # 1.6 (1.0-4.8) k/uL Monocytes # 0.3 (0-1.0) k/uL Eosinophils # 0.5 (0-0.7) k/uL Basophils # 0.0 (0-0.2) k/uL Hypochromasia Marked Poikilocytosis Slight Anisocytosis Slight PT 10.1 (9.0-12.0) sec INR 0.9 (<1.2) APTT 26.8 (22.0-30.0) sec Sodium 141 (137-145) mmol/L Potassium 4.0 (3.5-5.1) mmol/L Chloride 109 H (98-107) mmol/L Carbon Dioxide 25 (22-30) mmol/L Anion Gap 7 mmol/L BUN 40 H (7-17) mg/dL Creatinine 0.85 (0.52-1.04) mg/dL Est GFR (CKD-EPI)AfAm 81 (>60 ml/min/1.73 sqM) Est GFR (CKD-EPI)NonAf 70 (>60 ml/min/1.73 sqM) Glucose 173 H (74-99) mg/dL Plasma Lactic Acid Maximus (0.7-2.0) mmol/L Calcium 8.2 L (8.4-10.2) mg/dL Magnesium 2.3 (1.6-2.3) mg/dL Total Bilirubin 0.3 (0.2-1.3) mg/dL AST 16 (14-36) U/L ALT 19 (9-52) U/L Alkaline Phosphatase 108 (38-126) U/L Total Protein 6.6 (6.3-8.2) g/dL Albumin 2.7 L (3.5-5.0) g/dL Urine Color Urine Appearance (Clear) Urine pH (5.0-8.0) Ur Specific [place] (1.001-1.035) Urine Protein (Negative) Urine Glucose (UA) (Negative) Urine Ketones (Negative) Urine Blood (Negative) Urine Nitrite (Negative) Urine Bilirubin (Negative) Urine Urobilinogen (<2.0) mg/dL Ur Leukocyte Esterase (Negative) Urine RBC (0-5) /hpf Urine WBC (0-5) /hpf Urine Bacteria (None) /hpf Urine Mucus (None) /hpf Urine Yeast (Budding) (None) /hpf Stool Occult Blood (Negative) Blood Type Blood Type Recheck Antibody Screen Spec Expiration Date 12/11/18 12/11/18 12/11/18 Range/Units 11:35 11:35 11:35 WBC (3.8-10.6) k/uL RBC (3.80-5.40) m/uL Hgb (11.4-16.0) gm/dL Hct (34.0-46.0) % MCV (80.0-100.0) fL MCH (25.0-35.0) pg MCHC (31.0-37.0) g/dL RDW (11.5-15.5) % Plt Count (150-450) k/uL Neutrophils % % Lymphocytes % % Monocytes % % Eosinophils % % Basophils % % Neutrophils # (1.3-7.7) k/uL Lymphocytes # (1.0-4.8) k/uL Monocytes # (0-1.0) k/uL Eosinophils # (0-0.7) k/uL Basophils # (0-0.2) k/uL Hypochromasia Poikilocytosis Anisocytosis PT (9.0-12.0) sec INR (<1.2) APTT (22.0-30.0) sec Sodium (137-145) mmol/L Potassium (3.5-5.1) mmol/L Chloride (98-107) mmol/L Carbon Dioxide (22-30) mmol/L Anion Gap mmol/L BUN (7-17) mg/dL Creatinine (0.52-1.04) mg/dL Est GFR (CKD-EPI)AfAm (>60 ml/min/1.73 sqM) Est GFR (CKD-EPI)NonAf (>60 ml/min/1.73 sqM) Glucose (74-99) mg/dL Plasma Lactic Acid Maximus 1.1 (0.7-2.0) mmol/L Calcium (8.4-10.2) mg/dL Magnesium (1.6-2.3) mg/dL Total Bilirubin (0.2-1.3) mg/dL AST (14-36) U/L ALT (9-52) U/L Alkaline Phosphatase (38-126) U/L Total Protein (6.3-8.2) g/dL Albumin (3.5-5.0) g/dL Urine Color Yellow Urine Appearance Cloudy H (Clear) Urine pH 5.5 (5.0-8.0) Ur Specific [place] 1.023 (1.001-1.035) Urine Protein 2+ H (Negative) Urine Glucose (UA) Negative (Negative) Urine Ketones Negative (Negative) Urine Blood Small H (Negative) Urine Nitrite Negative (Negative) Urine Bilirubin Negative (Negative) Urine Urobilinogen <2.0 (<2.0) mg/dL Ur Leukocyte Esterase Large H (Negative) Urine RBC 15 H (0-5) /hpf Urine WBC 167 H (0-5) /hpf Urine Bacteria Rare H (None) /hpf Urine Mucus Rare H (None) /hpf Urine Yeast (Budding) Rare H (None) /hpf Stool Occult Blood (Negative) Blood Type A Positive Blood Type Recheck No Antibody Screen NEGATIVE Spec Expiration Date 12/14/2018 - 4513 12/11/18 Range/Units 12:12 WBC (3.8-10.6) k/uL RBC (3.80-5.40) m/uL Hgb (11.4-16.0) gm/dL Hct (34.0-46.0) % MCV (80.0-100.0) fL MCH (25.0-35.0) pg MCHC (31.0-37.0) g/dL RDW (11.5-15.5) % Plt Count (150-450) k/uL Neutrophils % % Lymphocytes % % Monocytes % % Eosinophils % % Basophils % % Neutrophils # (1.3-7.7) k/uL Lymphocytes # (1.0-4.8) k/uL Monocytes # (0-1.0) k/uL Eosinophils # (0-0.7) k/uL Basophils # (0-0.2) k/uL Hypochromasia Poikilocytosis Anisocytosis PT (9.0-12.0) sec INR (<1.2) APTT (22.0-30.0) sec Sodium (137-145) mmol/L Potassium (3.5-5.1) mmol/L Chloride (98-107) mmol/L Carbon Dioxide (22-30) mmol/L Anion Gap mmol/L BUN (7-17) mg/dL Creatinine (0.52-1.04) mg/dL Est GFR (CKD-EPI)AfAm (>60 ml/min/1.73 sqM) Est GFR (CKD-EPI)NonAf (>60 ml/min/1.73 sqM) Glucose (74-99) mg/dL Plasma Lactic Acid Maximus (0.7-2.0) mmol/L Calcium (8.4-10.2) mg/dL Magnesium (1.6-2.3) mg/dL Total Bilirubin (0.2-1.3) mg/dL AST (14-36) U/L ALT (9-52) U/L Alkaline Phosphatase (38-126) U/L Total Protein (6.3-8.2) g/dL Albumin (3.5-5.0) g/dL Urine Color Urine Appearance (Clear) Urine pH (5.0-8.0) Ur Specific [place] (1.001-1.035) Urine Protein (Negative) Urine Glucose (UA) (Negative) Urine Ketones (Negative) Urine Blood (Negative) Urine Nitrite (Negative) Urine Bilirubin (Negative) Urine Urobilinogen (<2.0) mg/dL Ur Leukocyte Esterase (Negative) Urine RBC (0-5) /hpf Urine WBC (0-5) /hpf Urine Bacteria (None) /hpf Urine Mucus (None) /hpf Urine Yeast (Budding) (None) /hpf Stool Occult Blood Negative (Negative) Blood Type Blood Type Recheck Antibody Screen Spec Expiration Date Disposition Clinical Impression: Anemia, UTI (urinary tract infection), PNA (pneumonia) Disposition: HOME SELF-CARE Condition: Fair Instructions (If sedation given, give patient instructions): Urinary Tract Infection in Women (ED), Bacterial Pneumonia (DC) Prescriptions: Levofloxacin [Levaquin] 500 mg PO DAILY 3 Days #5 tab Is patient prescribed a controlled substance at d/c from ED?: No Referrals: Carlo Frederick MD [Primary Care Provider] - 1-2 days Time of Disposition: 14:02
[2018-12-11 11:56] LABS: Anisocytosis Slight; Basophils % (A) 0 %; Eosinophils # (A) 0.5 k/uL (0-0.7); Eosinophils % (A) 7 %; HCT 26.9 % (34.0-46.0); Hypochromasia Marked; Lymphocytes # (A) 1.6 k/uL (1.0-4.8); Lymphocytes % (A) 21 %; MCHC 29.9 g/dL (31.0-37.0); MCV 83.6 fL (80.0-100.0); Mean Platelet Volume 7.5; Monocytes # (A) 0.3 k/uL (0-1.0); Monocytes % (A) 4 %; Neutrophils # (A) 4.9 k/uL (1.3-7.7); Neutrophils % (A) 66 %; Platelet Count 295 k/uL (150-450); Poikilocytosis Slight; RBC 3.22 m/uL (3.80-5.40); RDW 16.3 % (11.5-15.5); WBC 7.4 k/uL (3.8-10.6)
[2018-12-11 12:12] LABS: INR 0.9 (<1.2)
[2018-12-11 12:13] LABS: Partial Thromboplastin Time 26.8 sec (22.0-30.0); Prothrombin Time 10.1 sec (9.0-12.0)
[2018-12-11 12:16] LABS: Albumin 2.7 g/dL (3.5-5.0); Calcium 8.2 mg/dL (8.4-10.2); Magnesium 2.3 mg/dL (1.6-2.3); Total Bilirubin 0.3 mg/dL (0.2-1.3); Total Protein 6.6 g/dL (6.3-8.2)
--- NOTE | 2018-12-11 12:16 | XR ---
EXAMINATION TYPE: XR chest 2V DATE OF EXAM: 12/11/2018 COMPARISON: Prior chest x-ray 06/17/2018 HISTORY: Fever, anemia TECHNIQUE: Frontal and lateral views of the chest are obtained. FINDINGS: There is increased AP diameter chest. The posterior density seen on the lateral view has i mproved in the interval. Patient is rotated. Aorta is dense. Heart is likely stable in size, there ar e overlying cardiac leads. No evident pneumothorax. Eventration of right hemidiaphragm present. IMPRESSION: There is some improved aeration as compared to prior exam. Difficult to exclude left low er lobe atelectasis versus pneumonia, possible small effusion. Rotated exam, follow-up PA and lateral chest x-ray suggested when patient is stable.
[2018-12-11 12:20] LABS: Appearance,Urine Cloudy (Clear); Bacteria,Urine Rare /hpf; Bilirubin,Urine Negative (Negative); Blood,Urine Small (Negative); Budding Yeast,Urine Rare /hpf; Color,Urine Yellow; Glucose,Urine (UA) Negative (Negative); Ketones,Urine Negative (Negative); Leukocyte Esterase,Urine Large (Negative); Mucus,Urine Rare /hpf; Nitrite,Urine Negative (Negative); PH, Urine 5.5 (5.0-8.0); Protein,Urine 2+ (Negative); RBC,Urine 15 /hpf (0-5); Specific Gravity,Urine 1.023 (1.001-1.035); Urobilinogen,Urine <2.0 mg/dL (<2.0); WBC,Urine 167 /hpf (0-5)
[2018-12-11 14:50] VITALS: BP 143/67; PULSE 87; RESP 18; TEMP 98.2
== END 2018-12-11 14:48 | disposition home or self-care (01) ==
LOC: EC 11:00
DX: D64.9 Anemia, unspecified (principal); N39.0 Urinary tract infection, site not specified; J18.9 Pneumonia, unspecified organism; E11.40 Type 2 diabetes mellitus with diabetic neuropathy, unspecified; M79.7 Fibromyalgia; K21.9 Gastro-esophageal reflux disease without esophagitis; E78.5 Hyperlipidemia, unspecified; G43.909 Migraine, unspecified, not intractable, without status migrainosus; F41.9 Anxiety disorder, unspecified; F32.9 Major depressive disorder, single episode, unspecified; G47.30 Sleep apnea, unspecified; Z99.89 Dependence on other enabling machines and devices; E66.01 Morbid (severe) obesity due to excess calories; Z68.39 Body mass index [BMI] 39.0-39.9, adult; Z86.14 Personal history of Methicillin resistant Staphylococcus aureus infection; Z93.3 Colostomy status; Z98.84 Bariatric surgery status; Z98.890 Other specified postprocedural states; Z90.49 Acquired absence of other specified parts of digestive tract; Z98.51 Tubal ligation status; Z96.652 Presence of left artificial knee joint; Z96.641 Presence of right artificial hip joint; Z87.891 Personal history of nicotine dependence; Z87.19 Personal history of other diseases of the digestive system; Z79.4 Long term (current) use of insulin; Z79.891 Long term (current) use of opiate analgesic; Z79.52 Long term (current) use of systemic steroids; Z79.899 Other long term (current) drug therapy; Z91.048 Other nonmedicinal substance allergy status; Z88.1 Allergy status to other antibiotic agents; Z88.7 Allergy status to serum and vaccine; Z91.040 Latex allergy status; Z91.010 Allergy to peanuts; Z88.0 Allergy status to penicillin; Z88.8 Allergy status to other drugs, medicaments and biological substances
CPT/HCPCS: 36415; 86900; 86901; 80053; 83605; 83735; 85025; 85610; 85730; 86850; 82272; 81001; 87040; 87086; 71046; 99284; 96374; C9113

== ENCOUNTER → 2019-04-03 | Outpatient (CLI) | payer MEDICARE, OTHER ==
--- NOTE | 2019-04-03 15:33 | XR ---
EXAMINATION TYPE: XR bone survey complete DATE OF EXAM: 04/03/2019 COMPARISON: Prior exam 12/07/2017 HISTORY: Generalized pain, D 64.89, M12.9, N18.9, E 11.9 Frontal pelvis, frontal and lateral views of the spine, frontal view of the chest, 2 views of the cristine varium, frontal views the proximal upper and lower extremities are submitted on a total of 18 images. The patient is edentulous. Bone mineralization is reduced. Patient is post cholecystectomy. Bilateral postop changes to the hips again noted. Surgical natanael present along the abdomen. There is likely a Coffey catheter in place. Metallic needlelike density in the left hemipelvis is stable. Probable per itoneal dialysis catheter is present. Inferior vena cava filter is present. Some resorption along the femoral aspect of the right hip prosthesis is again seen, somewhat permeati ve pattern noted to the cortex along the proximal right femur. Low bone mineralization may reduce sen sitivity of the exam. Multilevel spondylosis present in the visualized spine, appearance is similar t o prior exam. No evident lytic lesion within the visualized spine. Postop change also noted within le ft knee. Right knee shows marked arthropathy. There are vascular calcifications present. Findings of hyperostosis frontalis interna again noted within the calvarium. Dense calcifications present within the aorta. Eventration present around the right hemidiaphragm. IMPRESSION: Findings in the right femur may be related to osteoporosis, bone resorption as described along the prosthesis. Postprocedural changes, correlate for appropriate history. Low bone mineralizat ion may limit sensitivity of the exam.
== END | disposition home or self-care (01) ==
LOC: RADXRMAIN 13:02
PROVIDERS: ATTEND Internal Medicine Hematology & Oncology
DX: M12.9 Arthropathy, unspecified (principal); E11.22 Type 2 diabetes mellitus with diabetic chronic kidney disease; N18.9 Chronic kidney disease, unspecified; D64.89 Other specified anemias; Z98.890 Other specified postprocedural states
CPT/HCPCS: 77075

== ENCOUNTER 2019-04-25 12:06 | Inpatient (IN) | payer MEDICARE, OTHER ==
[2019-04-25] MEDS ORDERED: VANCOMYCIN IV PER PHARMACY 1 EACH MISC MISCELLANE PRN (12:53)
[2019-04-25] MEDS ORDERED: VANCOMYCIN 1,500 MG in SODIUM CHLORIDE 0.9% 250 ML IVPB STA (13:01)
[2019-04-25] MEDS: SODIUM CHLORIDE 0.9% 500 ML 500 ML IV SCH ×2 (13:27→14:03)
--- NOTE | 2019-04-25 13:49 | ED ---
Wound/Laceration HPI - General Chief Complaint: Wound/Laceration Stated Complaint: Wound Time Seen by Provider: 04/25/19 12:27 Source: patient, EMS, RN notes reviewed, old records reviewed Mode of arrival: EMS Limitations: no limitations - History of Present Illness Initial Comments: Patient is a 68-year-old female, with chief complaint of a wound abscess over the left leg. Patient recently was on IV antibiotics, Invanz for urinary tract infection. Patient has a wound VAC over her sacral wound which is stage IV decubitus ulcer. She also has evidence of colostomy bag. Patient was getting her wound on her legs redressed, and reports that it started to leak pus. - Related Data Home Medications Medication Instructions Recorded Confirmed Atorvastatin [Lipitor] 40 mg PO HS 08/30/15 04/25/19 Sennosides [Senokot] 17.2 mg PO BID 05/22/17 04/25/19 Biotin 300 mcg PO DAILY@199901/05/18 04/25/19 Omeprazole 20 mg PO DAILY 02/13/18 04/25/19 Polyethylene Glycol 3350 [Miralax] 17 gm PO DAILY@199908/17/18 04/25/19 Lactulose [Cephulac] 10 gm PO DAILY PRN 09/09/18 04/25/19 Acetaminophen [Tylenol Extra 500 mg PO TID PRN 10/16/18 04/25/19 Strength] Morphine Sulfate ER [Ms Contin] 15 mg PO TID@0700,1300,1900 10/16/18 04/25/19 Ferrous Sulfate [Feosol] 325 mg PO DAILY@199904/11/19 04/25/19 Lisinopril [Zestril] 20 mg PO BID 04/11/19 04/25/19 guaiFENesin [guaiFENesin Oral 200 mg PO Q6H PRN 04/11/19 04/25/19 Solution] metFORMIN HCL [Glucophage] 500 mg PO BID 04/11/19 04/25/19 Calcium Carb-Vit D 500Mg-200Un 1 tab PO DAILY@199904/25/19 04/25/19 [Oscal 500+D] DULoxetine HCL [Cymbalta] 20 mg PO BID 04/25/19 04/25/19 Dermaseptin 1 applic TOPICAL HS 04/25/19 04/25/19 Loratadine [Claritin] 10 mg PO DAILY 04/25/19 04/25/19 Multivit-Min/FA/Lycopen/Lutein 1 tab PO DAILY@199904/25/19 04/25/19 [Centrum Silver Tablet] Mylanta 15 ml PO Q6H PRN 04/25/19 04/25/19 Previous Rx's Medication Instructions Recorded oxyCODONE-APAP 10-325MG [Percocet 1 tab PO Q6H PRN #8 tab 09/17/18 10-325 mg] Allergies Allergy/AdvReac Type Severity Reaction Status Date / Time adhesive tape Allergy Severe Rash/Hives Verified 04/25/19 12:30 cephalexin monohydrate Allergy Severe Rash/Hives Verified 04/25/19 12:30 [From Keflex] influenza virus vaccine, Allergy Severe Anaphylaxis Verified 04/25/19 12:30 specific [influenza virus vacc,specific] latex Allergy Severe Rash/Hives Verified 04/25/19 12:30 peanut Allergy Severe Anaphylaxis Verified 04/25/19 12:30 Penicillins Allergy Severe Swelling Verified 04/25/19 12:30 tetanus toxoid, adsorbed Allergy Intermediate Rash/Hives Verified 04/25/19 12:30 baclofen Allergy Unknown Verified 04/25/19 12:30 Influenza Virus Vaccines Allergy Anaphylaxis Verified 04/25/19 12:30 Review of Systems ROS Statement: Those systems with pertinent positive or pertinent negative responses have been documented in the HPI. ROS Other: All systems not noted in ROS Statement are negative. Past Medical History Past Medical History: Atrial Fibrillation, Diabetes Mellitus, Deep Vein Thrombosis (DVT), Fibromyalgia, GERD/Reflux, GI Bleed, Hyperlipidemia, Hypertension, Pneumonia, Renal Disease, Skin Disorder, Sleep Apnea/CPAP/BIPAP, Supraventricular Tachycardia (SVT), Vascular Disorder Additional Past Medical History / Comment(s): Chronic blood loss -anemia, chronic stage III renal failure, morbid obesity, DVT lt lower leg w/ prev IVC filter in place, dermatitis, gastric ulcer w/ [place]-en-Y gastric bypass, chronic lower back pain,hx severe sepsis w/ septic shock/septicemia w/ MRSA, hemorrhoids, cellulitis of LLE, dysphagia, falls, muscle weakness, bilat tinnitus, UTI. peripheral neuropathy (bilat hands/feet), migraines, eczema, sinus problems, lower GI bleed. SALGUERO, COLOSTOMY. DECUBITUS ULCER. 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 Source:: Left Leg & Buttock-MRSA; Urine-VRE & ESBL Past Surgical History: Adenoidectomy, Bariatric Surgery, Bowel Resection, Cholecystectomy, Joint Replacement, Tonsillectomy, Tubal Ligation Additional Past Surgical History / Comment(s): Colostomy 2018, Gastric bypass/[place]-en-Y in 2003, [place] filter 2000, teeth extraction, colonoscopy, EGD, hemorrhoidectomy, panniculectomy, D&C, hystoscopy x 2, LT KNEE replaced 2005-MRSA infection-hardware removed/cemented then replaced again, ORIF L hip repair, total R hip REPLACEMENT, bilat heel spurs removed, bilat CTR, infusaport insertion - since removed. Past Anesthesia/Blood Transfusion Reactions: Blood Transfusion Reaction Additional Past Anesthesia/Blood Transfusion Reaction / Comment(s): Per chart unspecified reaction. Past Psychological History: Anxiety, Depression Smoking Status: Former smoker Past Alcohol Use History: None Reported Past Drug Use History: None Reported - Past Family History Father Family Medical History: Myocardial Infarction ([place]) Additional Family Medical History / Comment(s): AT AGE 46-[place] Mother Family Medical History: Diabetes Mellitus Additional Family Medical History / Comment(s): AT AGE 66 FROM COMPLIC ATIONS FROM DM Sister(s) Family Medical History: Diabetes Mellitus Brother(s) Family Medical History: Diabetes Mellitus Daughter(s) Family Medical History: Cancer Son(s) Family Medical History: No Reported History General Exam - General Exam Comments Initial Comments: 68-year-old female. Alert and oriented 3. Patient is bedbound. Limitations: no limitations General appearance: alert, in no apparent distress Head exam: Present: atraumatic, normocephalic, normal inspection Eye exam: Present: normal appearance, PERRL, EOMI. Absent: scleral icterus, conjunctival injection, periorbital swelling ENT exam: Present: normal exam, mucous membranes moist Neck exam: Present: normal inspection Respiratory exam: Present: normal lung sounds bilaterally. Absent: respiratory distress, wheezes, rales, rhonchi, stridor Cardiovascular Exam: Present: regular rate, normal rhythm, normal heart sounds. Absent: systolic murmur, diastolic murmur, rubs, gallop, clicks GI/Abdominal exam: Present: soft, normal bowel sounds, other (Patient has a colostomy bag over the left lower quadrant of the abdomen.). Absent: distended, tenderness, guarding, rebound, rigid Extremities exam: Present: full ROM, normal capillary refill. Absent: normal inspection, tenderness, pedal edema, joint swelling, calf tenderness Left Knee exam: Present: tenderness, swelling, erythema, effusion (Patient has significant tenderness, erythema and effusion over the medial aspect of the left leg. She is a very thin lower calf. There is evidence of erythema concern for cellulitis.). Absent: normal inspection Back exam: Present: normal inspection, other (Patient has a wound VAC over her lumbar spine, concern for decubitus ulcer.). Absent: full ROM Neurological exam: Present: alert, oriented X3, CN II-XII intact Psychiatric exam: Present: normal affect Course Vital Signs 04/25/19 04/25/19 04/25/19 12:14 12:30 12:45 Temperature 99.4 F Pulse Rate 91 88 87 Respiratory 16 16 16 Rate Blood Pressure 160/90 155/88 155/76 O2 Sat by Pulse 99 98 99 Oximetry 04/25/19 04/25/19 04/25/19 13:00 13:30 15:00 Temperature 99.6 F Pulse Rate 91 90 Respiratory 16 16 Rate Blood Pressure 173/100 171/87 O2 Sat by Pulse 99 99 Oximetry Medical Decision Making - Medical Decision Making Patient is a 68-year-old female with multiple comorbidities. He complains concern for sinus infection over the left knee. She has a prosthesis. She's had a history of chronic infections from this. On reviewing her chart it seems to Dr. Norman had helped with this past and had prostatic resection. Patient has recently been on IV antibiotics Invanz for UTI. At this time Patient was started on vancomycin. She has multiple drug ALLERGIES including penicillin Keflex. Patient white blood cell count was reviewed and normal. Vital signs are stable. I discussed case with Dr. Rincon and discussed case with Dr. Bedolla has not. Patient only admitted for failure of outpatient treatment, concern for prostatic infection. Chest x-ray was reviewed and normal. Knee x-ray shows evidence of concern for prostatic infection. - Lab Data Result diagrams: 04/25/19 14:15 04/25/19 14:15 Lab Results 04/25/19 04/25/19 04/25/19 Range/Units 14:15 14:15 14:15 WBC 6.0 (3.8-10.6) k/uL RBC 3.16 L (3.80-5.40) m/uL Hgb 9.0 L (11.4-16.0) gm/dL Hct 29.2 L (34.0-46.0) % MCV 92.6 (80.0-100.0) fL MCH 28.5 (25.0-35.0) pg MCHC 30.8 L (31.0-37.0) g/dL RDW 20.0 H (11.5-15.5) % Plt Count 110 L (150-450) k/uL Neutrophils % 61 % Lymphocytes % 27 % Monocytes % 5 % Eosinophils % 4 % Basophils % 1 % Neutrophils # 3.7 (1.3-7.7) k/uL Lymphocytes # 1.6 (1.0-4.8) k/uL Monocytes # 0.3 (0-1.0) k/uL Eosinophils # 0.2 (0-0.7) k/uL Basophils # 0.1 (0-0.2) k/uL Hypochromasia Marked Anisocytosis Moderate PT 10.5 (9.0-12.0) sec INR 1.0 (<1.2) APTT 25.1 (22.0-30.0) sec Sodium 141 (137-145) mmol/L Potassium 4.5 (3.5-5.1) mmol/L Chloride 110 H (98-107) mmol/L Carbon Dioxide 24 (22-30) mmol/L Anion Gap 7 mmol/L BUN 15 (7-17) mg/dL Creatinine 0.75 (0.52-1.04) mg/dL Est GFR (CKD-EPI)AfAm >90 (>60 ml/min/1.73 sqM) Est GFR (CKD-EPI)NonAf 82 (>60 ml/min/1.73 sqM) Glucose 105 H (74-99) mg/dL Plasma Lactic Acid Maximus (0.7-2.0) mmol/L Calcium 8.4 (8.4-10.2) mg/dL Total Bilirubin 0.3 (0.2-1.3) mg/dL AST 28 (14-36) U/L ALT 19 (9-52) U/L Alkaline Phosphatase 155 H (38-126) U/L Ammonia (<30) umol/L Total Protein 7.0 (6.3-8.2) g/dL Albumin 2.5 L (3.5-5.0) g/dL 04/25/19 Range/Units 14:15 WBC (3.8-10.6) k/uL RBC (3.80-5.40) m/uL Hgb (11.4-16.0) gm/dL Hct (34.0-46.0) % MCV (80.0-100.0) fL MCH (25.0-35.0) pg MCHC (31.0-37.0) g/dL RDW (11.5-15.5) % Plt Count (150-450) k/uL Neutrophils % % Lymphocytes % % Monocytes % % Eosinophils % % Basophils % % Neutrophils # (1.3-7.7) k/uL Lymphocytes # (1.0-4.8) k/uL Monocytes # (0-1.0) k/uL Eosinophils # (0-0.7) k/uL Basophils # (0-0.2) k/uL Hypochromasia Anisocytosis PT (9.0-12.0) sec INR (<1.2) APTT (22.0-30.0) sec Sodium (137-145) mmol/L Potassium (3.5-5.1) mmol/L Chloride (98-107) mmol/L Carbon Dioxide (22-30) mmol/L Anion Gap mmol/L BUN (7-17) mg/dL Creatinine (0.52-1.04) mg/dL Est GFR (CKD-EPI)AfAm (>60 ml/min/1.73 sqM) Est GFR (CKD-EPI)NonAf (>60 ml/min/1.73 sqM) Glucose (74-99) mg/dL Plasma Lactic Acid Maximus 1.2 (0.7-2.0) mmol/L Calcium (8.4-10.2) mg/dL Total Bilirubin (0.2-1.3) mg/dL AST (14-36) U/L ALT (9-52) U/L Alkaline Phosphatase (38-126) U/L Ammonia <9 (<30) umol/L Total Protein (6.3-8.2) g/dL Albumin (3.5-5.0) g/dL 04/25/19 13:50 EKG performed at 1226 shows normal sinus rhythm possible anterior infarct age undetermined. Abnormal EKG noted. Ventricular rate of 80 bpm. Intervals 160 ms. QRS duration is 76 ms. QT QTc is 364/440 ms. - Radiology Data Radiology results: report reviewed Metallic hardware from long-standing total arthroplasties and partially imaged. Position is stable. Sinemet material surrounding the femoral compartment is an seen. There is no warm or prominent fecal lucency surrounding the cement component with some cortical disruption on the medial aspect of the proximal tibial metaphysis now identified. Patellofemoral joint spaces losses rede monstrate. There is suspicious for tibial prostatic infection. Chest x-rays negative for any acute process. Disposition Clinical Impression: Anemia, Morbid obesity, Infected prosthetic knee joint, Failure of outpatient treatment Disposition: ADMITTED IP TO THIS HOSP Condition: Stable Is patient prescribed a controlled substance at d/c from ED?: No Referrals: Carlo Frederick MD [Primary Care Provider] - 1-2 days Time of Disposition: 15:37
--- NOTE | 2019-04-25 14:12 | XR ---
EXAMINATION TYPE: XR knee complete LT DATE OF EXAM: 04/25/2019 CLINICAL HISTORY: Pain and fever, wound drainage TECHNIQUE: Three views of the left knee are obtained. COMPARISON: Left knee x-ray December 11, 2017 FINDINGS: Metallic hardware from longstem total arthroplasty is only partially imaged. Position is s table. Cement material surrounding the femoral component again seen. There is new or more prominent f ocal lucency surrounding the cement component with some cortical disruption along the medial aspect o f the proximal tibial metaphysis now identified. Patellofemoral joint space loss redemonstrated. Over lying blanket material is seen. IMPRESSION: As above differential suspicious for tibial prosthetic infection.
--- NOTE | 2019-04-25 14:17 | XR ---
EXAMINATION TYPE: XR chest 1V portable DATE OF EXAM: 04/25/2019 COMPARISON: 12/11/2018 HISTORY: Shortness of breath TECHNIQUE: Frontal and lateral views of the chest are obtained. FINDINGS: Scattered senescent parenchymal changes noted. Hyperinflation compatible with COPD. No evidence for infiltrate. No evidence for atelectasis. Heart size is stable. Mediastinal structures are stable and grossly unremarkable. No evidence for hilar prominence. Degenerative changes dorsal spine. IMPRESSION: 1. No evidence for acute pulmonary disease.
[2019-04-25 14:42] LABS: Anisocytosis Moderate; Basophils # (A) 0.1 k/uL (0-0.2); Basophils % (A) 1 %; Eosinophils # (A) 0.2 k/uL (0-0.7); Eosinophils % (A) 4 %; HCT 29.2 % (34.0-46.0); Hypochromasia Marked; Lymphocytes # (A) 1.6 k/uL (1.0-4.8); Lymphocytes % (A) 27 %; MCH 28.5 pg (25.0-35.0); MCHC 30.8 g/dL (31.0-37.0); MCV 92.6 fL (80.0-100.0); Mean Platelet Volume 7.4; Monocytes # (A) 0.3 k/uL (0-1.0); Monocytes % (A) 5 %; Neutrophils # (A) 3.7 k/uL (1.3-7.7); Neutrophils % (A) 61 %; Platelet Count 110 k/uL (150-450); RBC 3.16 m/uL (3.80-5.40)
[2019-04-25 14:44] LABS: Partial Thromboplastin Time 25.1 sec (22.0-30.0); Prothrombin Time 10.5 sec (9.0-12.0)
[2019-04-25 14:46] LABS: Ammonia <9 umol/L (<30); Lactic Acid, Venous 1.2 mmol/L (0.7-2.0)
[2019-04-25 14:47] LABS: Albumin 2.5 g/dL (3.5-5.0); Chloride 110 mmol/L (98-107); Glucose 105 mg/dL (74-99); Potassium 4.5 mmol/L (3.5-5.1); Sodium 141 mmol/L (137-145)
[2019-04-25 14:48] LABS: ALT 19 U/L (9-52); AST 28 U/L (14-36); African American GFR (CKD) >90 (>60 ml/min/1.73 sqM); Alkaline Phosphatase 155 U/L (38-126); Anion Gap 7 mmol/L; Blood Urea Nitrogen 15 mg/dL (7-17); Calcium 8.4 mg/dL (8.4-10.2); Carbon Dioxide 24 mmol/L (22-30); Total Bilirubin 0.3 mg/dL (0.2-1.3)
[2019-04-25] MEDS ORDERED: LACTULOSE 20 GM/30 ML CUP PO PRN (15:16)
[2019-04-25] MEDS ORDERED: oxyCODONE-APAP 10-325MG 1 EACH TAB PO PRN (15:16)
[2019-04-25] MEDS ORDERED: ACETAMINOPHEN TAB 500 MG TAB PO PRN (15:16)
--- NOTE | 2019-04-25 15:27 | P.HPIM ---
History of Present Illness Patient is a 68-year-old female was transferred from subacute custodial because of possibly of infection of the left leg patient appears to have infection of the left knee prosthesis which is swollen tender red and some pus coming out of the knee area. Patient has a wound VAC and has a sacral decubitus ulcer. Patient does have a colostomy as well. Patient was recently treated for urinary tract infection and completed antibiotic therapy with Invanz. Patient was evaluated by Dr. Bhatia in the past with Dr. Bhatia will be consulting from infectious disease and the Dr. Nuñez will be consulted for infected prosthesis. Patient will be started on empiric antibiotics vancomycin and Zosyn cultures will be done from the pus. Review of Systems REVIEW OF SYSTEMS: CONSTITUTIONAL: No fever, no malaise, no fatigue. HEENT: No recent visual problems or hearing problems. Denied any sore throat. CARDIOVASCULAR: No chest pain, orthopnea, PND, no palpitations, no syncope. PULMONARY: No shortness of breath, no cough, no hemoptysis. GASTROINTESTINAL: No diarrhea, no nausea, no vomiting, no abdominal pain. NEUROLOGICAL: No headaches, no weakness, no numbness. HEMATOLOGICAL: Denies any bleeding or petechiae. GENITOURINARY: Denies any burning micturition, frequency, or urgency. MUSCULOSKELETAL/RHEUMATOLOGICAL: As mentioned above ENDOCRINE: Denies any polyuria or polydipsia. The rest of the 14-point review of systems is negative. Past Medical History Past Medical History: Atrial Fibrillation, Diabetes Mellitus, Deep Vein Thrombosis (DVT), Fibromyalgia, GERD/Reflux, GI Bleed, Hyperlipidemia, Hypertension, Pneumonia, Renal Disease, Skin Disorder, Sleep Apnea/CPAP/BIPAP, Supraventricular Tachycardia (SVT), Vascular Disorder Additional Past Medical History / Comment(s): Chronic blood loss -anemia, chronic stage III renal failure, morbid obesity, DVT lt lower leg w/ prev IVC filter in place, dermatitis, gastric ulcer w/ [place]-en-Y gastric bypass, chronic lower back pain,hx severe sepsis w/ septic shock/septicemia w/ MRSA, hemorrhoids, cellulitis of LLE, dysphagia, falls, muscle weakness, bilat tinnitus, UTI. peripheral neuropathy (bilat hands/feet), migraines, eczema, sinus problems, lower GI bleed. SALGUERO, COLOSTOMY. DECUBITUS ULCER. 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 Source:: Left Leg & Buttock-MRSA; Urine-VRE & ESBL Past Surgical History: Adenoidectomy, Bariatric Surgery, Bowel Resection, Cholecystectomy, Joint Replacement, Tonsillectomy, Tubal Ligation Additional Past Surgical History / Comment(s): Colostomy 2018, Gastric bypass/[place]-en-Y in 2003, [place] filter 2000, teeth extraction, colonoscopy, EGD, hemorrhoidectomy, panniculectomy, D&C, hystoscopy x 2, LT KNEE replaced 2005-MRSA infection-hardware removed/cemented then replaced again, ORIF L hip repair, total R hip REPLACEMENT, bilat heel spurs removed, bilat CTR, infusaport insertion - since removed. Past Anesthesia/Blood Transfusion Reactions: Blood Transfusion Reaction Additional Past Anesthesia/Blood Transfusion Reaction / Comment(s): Per chart unspecified reaction. Past Psychological History: Anxiety, Depression Smoking Status: Former smoker Past Alcohol Use History: None Reported Past Drug Use History: None Reported - Past Family History Father Family Medical History: Myocardial Infarction ([place]) Additional Family Medical History / Comment(s): AT AGE 46-[place] Mother Family Medical History: Diabetes Mellitus Additional Family Medical History / Comment(s): AT AGE 66 FROM COMPLICATIONS FROM DM Sister(s) Family Medical History: Diabetes Mellitus Brother(s) Family Medical History: Diabetes Mellitus Daughter(s) Family Medical History: Cancer Son(s) Family Medical History: No Reported History Medications and Allergies Home Medications Medication Instructions Recorded Confirmed Type Atorvastatin [Lipitor] 40 mg PO HS 08/30/15 04/25/19 History Sennosides [Senokot] 17.2 mg PO BID 05/22/17 04/25/19 History Biotin 300 mcg PO DAILY@199901/05/18 04/25/19 History Omeprazole 20 mg PO DAILY 02/13/18 04/25/19 History Polyethylene Glycol 3350 [Miralax] 17 gm PO DAILY@199908/17/18 04/25/19 History Lactulose [Cephulac] 10 gm PO DAILY PRN 09/09/18 04/25/19 History oxyCODONE-APAP 10-325MG [Percocet 1 tab PO Q6H PRN #8 tab 09/17/18 04/25/19 Rx 10-325 mg] Acetaminophen [Tylenol Extra 500 mg PO TID PRN 10/16/18 04/25/19 History Strength] Morphine Sulfate ER [Ms Contin] 15 mg PO TID@0700,1300,1900 10/16/18 04/25/19 History Ferrous Sulfate [Feosol] 325 mg PO DAILY@199904/11/19 04/25/19 History Lisinopril [Zestril] 20 mg PO BID 04/11/19 04/25/19 History guaiFENesin [guaiFENesin Oral 200 mg PO Q6H PRN 04/11/19 04/25/19 History Solution] metFORMIN HCL [Glucophage] 500 mg PO BID 04/11/19 04/25/19 History Calcium Carb-Vit D 500Mg-200Un 1 tab PO DAILY@199904/25/19 04/25/19 History [Oscal 500+D] DULoxetine HCL [Cymbalta] 20 mg PO BID 04/25/19 04/25/19 History Dermaseptin 1 applic TOPICAL HS 04/25/19 04/25/19 History Loratadine [Claritin] 10 mg PO DAILY 04/25/19 04/25/19 History Multivit-Min/FA/Lycopen/Lutein 1 tab PO DAILY@199904/25/19 04/25/19 History [Centrum Silver Tablet] Mylanta 15 ml PO Q6H PRN 04/25/19 04/25/19 History Allergies Allergy/AdvReac Type Severity Reaction Status Date / Time adhesive tape Allergy Severe Rash/Hives Verified 04/25/19 12:30 cephalexin monohydrate Allergy Severe Rash/Hives Verified 04/25/19 12:30 [From Keflex] influenza virus vaccine, Allergy Severe Anaphylaxis Verified 04/25/19 12:30 specific [influenza virus vacc,specific] latex Allergy Severe Rash/Hives Verified 04/25/19 12:30 peanut Allergy Severe Anaphylaxis Verified 04/25/19 12:30 Penicillins Allergy Severe Swelling Verified 04/25/19 12:30 tetanus toxoid, adsorbed Allergy Intermediate Rash/Hives Verified 04/25/19 12:30 baclofen Allergy Unknown Verified 04/25/19 12:30 Influenza Virus Vaccines Allergy Anaphylaxis Verified 04/25/19 12:30 Physical Exam Vitals: Vital Signs Temp Pulse Resp BP Pulse Ox 04/25/19 15:00 99.6 F 04/25/19 12:30 88 16 155/88 98 04/25/19 12:14 99.4 F 91 16 160/90 99 Intake and Output 04/25/19 04/25/19 04/25/19 06:59 14:59 22:59 Other: Weight 90.718 kg PHYSICAL EXAMINATION: GENERAL: The patient is alert and oriented x3, not in any acute distress. Well developed, well nourished. HEENT: Pupils are round and equally reacting to light. EOMI. No scleral icterus. No conjunctival pallor. Normocephalic, atraumatic. No pharyngeal erythema. No thyromegaly. CARDIOVASCULAR: S1 and S2 present. No murmurs, rubs, or gallops. PULMONARY: Chest is clear to auscultation, no wheezing or crackles. ABDOMEN: Soft, nontender, nondistended, normoactive bowel sounds. No palpable organomegaly. MUSCULOSKELETAL: No joint swelling or deformity. EXTREMITIES: No cyanosis, clubbing, or pedal edema. Patient has significant muscle atrophy I believe patient is completely bedbound does have Swollen left leg including knee and midthigh area. The tenderness local is of temperature. NEUROLOGICAL: Gross neurological examination did not reveal any new focal deficits. Patient does have chronic weakness and muscle atrophy in both legs. Wound VAC in place SKIN: Decubitus ulcer please refer to nursing documentation for further details Results CBC & Chem 7: 04/25/19 14:15 04/25/19 14:15 Labs: Abnormal Lab Results - Last 24 Hours (Table) 04/25/19 04/25/19 Range/Units 14:15 14:15 RBC 3.16 L (3.80-5.40) m/uL Hgb 9.0 L (11.4-16.0) gm/dL Hct 29.2 L (34.0-46.0) % MCHC 30.8 L (31.0-37.0) g/dL RDW 20.0 H (11.5-15.5) % Plt Count 110 L (150-450) k/uL Chloride 110 H (98-107) mmol/L Glucose 105 H (74-99) mg/dL Alkaline Phosphatase 155 H (38-126) U/L Albumin 2.5 L (3.5-5.0) g/dL Assessment and Plan Plan: Possible infection of the left knee prosthesis: Orthopedic surgery was consulted patient was started on vancomycin and Zosyn empiric antibiotics blood cultures wound cultures from the pus will be obtained infectious disease will be consulted that. -Sacral decubitus ulcer -Atrial fibrillation presently rate controlled patient is not on any anticoagulation Junction-history of DVT in the past -Fibromyalgia -Gastroesophageal reflux disease -Hypertension -Hyperlipidemia -Sleep apnea uses CPAP machine at home -Peripheral vascular disease. For about mentioned chronic mental problems patient will be resumed and continued on appropriate home medications. DVT prophylaxis with subcutaneous heparin
[2019-04-25] MEDS ORDERED: NALOXONE 0.4 MG/ML 1 ML VIAL IV PRN (15:38)
[2019-04-25 16:23] LABS: Amorphous Sediment,Urine Rare /hpf; Appearance,Urine Cloudy (Clear); Bilirubin,Urine Negative (Negative); Blood,Urine Moderate (Negative); Budding Yeast,Urine Many /hpf; Color,Urine Yellow; Glucose,Urine (UA) Negative (Negative); Hyaline Casts,Urine 4 /lpf (0-2); Ketones,Urine Negative (Negative); Leukocyte Esterase,Urine Moderate (Negative); Mucus,Urine Occasional /hpf; Nitrite,Urine Negative (Negative); PH, Urine 5.5 (5.0-8.0); Protein,Urine 3+ (Negative); RBC,Urine 15 /hpf (0-5); Specific Gravity,Urine 1.019 (1.001-1.035); Squamous Epithelial Cell,Urine <1 /hpf (0-4); Urobilinogen,Urine <2.0 mg/dL (<2.0); WBC,Urine 77 /hpf (0-5)
[2019-04-25] MEDS ORDERED: LORazepam 2 MG/ML INJ IV STA (17:18)
[2019-04-25] MEDS: SODIUM CHLORIDE 0.9% 1,000 ML IV SCH (17:50)
[2019-04-25] MEDS ORDERED: POLYETHYLENE GLYCOL 3350 17 GM POWD.PACK PO SCH (20:00)
[2019-04-25] MEDS ORDERED: FERROUS SULFATE 325 MG TAB PO SCH (20:00)
[2019-04-25] MEDS ORDERED: ATORVASTATIN 40 MG TAB PO SCH (21:00)
[2019-04-25 21:26] LABS: Glucose,Whole Blood 128 mg/dL (75-99)
[2019-04-25] MEDS: HEPARIN SODIUM,PORCINE 5,000 UNIT/ML 1 ML VIAL SQ SCH ×2 (22:10→23:57)
[2019-04-25] MEDS: SENNOSIDES 8.6 MG TAB PO SCH (22:27)
[2019-04-25] MEDS: metFORMIN 500 MG TAB PO SCH (22:27)
[2019-04-25] MEDS: LISINOPRIL 20 MG TAB PO SCH (22:28)
[2019-04-25] MEDS: DULoxetine HCL 20 MG CAPSULE.DR PO SCH (22:31)
[2019-04-25] MEDS: MORPHINE SULFATE ER 15 MG TABLET PO SCH (22:31)
[2019-04-26] MEDS ORDERED: VANCOMYCIN 1,500 MG in SODIUM CHLORIDE 0.9% 250 ML IVPB SCH ×2
[2019-04-26 04:50] VITALS: BP 151/78; PULSE 86; RESP 14; TEMP 97.7
[2019-04-26] MEDS: SODIUM CHLORIDE 0.9% 1,000 ML IV SCH (06:36)
[2019-04-26 07:23] LABS: Glucose,Whole Blood 113 mg/dL (75-99)
[2019-04-26] MEDS ORDERED: PANTOPRAZOLE 40 MG TABLET PO SCH (07:30)
[2019-04-26] MEDS: HEPARIN SODIUM,PORCINE 5,000 UNIT/ML 1 ML VIAL SQ SCH (08:15)
[2019-04-26] MEDS: MORPHINE SULFATE ER 15 MG TABLET PO SCH (08:15)
[2019-04-26] MEDS: SENNOSIDES 8.6 MG TAB PO SCH (08:15)
[2019-04-26] MEDS: LISINOPRIL 20 MG TAB PO SCH (08:15)
[2019-04-26] MEDS: metFORMIN 500 MG TAB PO SCH (08:15)
[2019-04-26] MEDS: DULoxetine HCL 20 MG CAPSULE.DR PO SCH (08:15)
[2019-04-26 08:48] LABS: Anisocytosis Moderate; HCT 28.7 % (34.0-46.0); Hypochromasia Marked; MCH 28.3 pg (25.0-35.0); MCHC 31.3 g/dL (31.0-37.0); MCV 90.5 fL (80.0-100.0); Mean Platelet Volume 5.7; Platelet Count 343 k/uL (150-450); RBC 3.17 m/uL (3.80-5.40); RDW 20.1 % (11.5-15.5); WBC 5.5 k/uL (3.8-10.6)
[2019-04-26 09:00] LABS: African American GFR (CKD) >90 (>60 ml/min/1.73 sqM); Anion Gap 6 mmol/L; Blood Urea Nitrogen 11 mg/dL (7-17); Calcium 8.2 mg/dL (8.4-10.2); Carbon Dioxide 23 mmol/L (22-30); Chloride 113 mmol/L (98-107); Glucose 108 mg/dL (74-99); Potassium 4.1 mmol/L (3.5-5.1); Sodium 142 mmol/L (137-145)
[2019-04-26] MEDS ORDERED: LORATADINE 10 MG TAB PO SCH (09:00)
--- NOTE | 2019-04-26 09:13 | P.CONS ---
History of Present Illness - Reason for Consult Consult date: 04/26/19 Septic arthritis - History of Present Illness This is a 68-year-old female patient well-known to ID service as she has been treated in the past for multiple admissions for acute respiratory failure requiring intubation, pneumonia and sepsis as well as bacteremia with IV antibiotic treatment in the past. 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 Patient is known to have chronic pressure ulcers bilateral buttocks and venous stasis ulcers to the left leg. She has been seen in the wound center in the past but no recent visits. Patient now presents due to wound possible abscess to the left lower extremity. She was recently treated with Invanz for urinary tract infection. She has had a wound VAC in place for the sacral wound stage IV dec ubitus ulcer. Patient was afebrile, white count 6, creatinine 0.75. Urinalysis positive for urinary tract infection. Chest x-ray shows no acute pulmonary disease. Left knee x-ray reveals suspicion of for tibial prosthetic infection. Patient has been seen by orthopedics with recommendations to transfer patient to tertiary care. Patient has been started on Vanco and is status post 1 L of IV fluids and admitted to the [facility] floor. 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 Repeat wound culture, urine culture blood culture all in progress. Patient also noted to have altered mental status, she will open eyes. She states she hurts all over. Review of Systems ROS unobtainable: due to mental status (Limited ROS due to mental status) Constitutional: Reports chronic pain, Reports fatigue, Reports lethargy, Reports malaise, Reports poor appetite, Reports weakness, Denies chills, Denies fever Ears, nose, mouth and throat: Denies dental pain, Denies mouth pain Cardiovascular: Denies chest pain, Denies syncope Respiratory: Denies dyspnea Gastrointestinal: Reports abdominal pain, Reports loss of appetite, Denies diarrhea Past Medical History Past Medical History: Atrial Fibrillation, Diabetes Mellitus, Deep Vein Thrombosis (DVT), Fibromyalgia, GERD/Reflux, GI Bleed, Hyperlipidemia, Hypertension, Pneumonia, Renal Disease, Skin Disorder, Sleep Apnea/CPAP/BIPAP, Supraventricular Tachycardia (SVT), Vascular Disorder Additional Past Medical History / Comment(s): Chronic blood loss -anemia, chronic stage III renal failure, morbid obesity, DVT lt lower leg w/ prev IVC filter in place, dermatitis, gastric ulcer w/ Clinton-en-Y gastric bypass, chronic lower back pain,hx severe sepsis w/ septic shock/septicemia w/ MRSA, hemorrhoids, cellulitis of LLE, dysphagia, falls, muscle weakness, bilat tinnitus, UTI. peripheral neuropathy (bilat hands/feet), migraines, eczema, sinus problems, lower GI bleed. SALGUERO, COLOSTOMY. DECUBITUS ULCER. 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 Source:: Left Leg & Buttock-MRSA; Urine-VRE & ESBL Past Surgical History: Adenoidectomy, Bariatric Surgery, Bowel Resection, Cholecystectomy, Joint Replacement, Tonsillectomy, Tubal Ligation Additional Past Surgical History / Comment(s): Colostomy 2018, Gastric bypass/Clinton-en-Y in 2003, Lizzy filter 2000, teeth extraction, colonoscopy, EGD, hemorrhoidectomy, panniculectomy, D&C, hystoscopy x 2, LT KNEE replaced 2005-MRSA infection-hardware removed/cemented then replaced again, ORIF L hip repair, total R hip REPLACEMENT, bilat heel spurs removed, bilat CTR, infusaport insertion - since removed. Past Anesthesia/Blood Transfusion Reactions: Blood Transfusion Reaction Additional Past Anesthesia/Blood Transfusion Reaction / Comm: Per chart unspec ified reaction. Past Psychological History: Anxiety, Depression Additional Psychological History / Comment(s): Patient is now in extended care. No longer live independently. Does not have any significant family. Was a tobacco smoker stopping several years ago. She has history of smoking 1.5-2 pack per day for 27 years and quit in 1993. She drinks alcohol rarely. 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 Smoking Status: Former smoker Past Alcohol Use History: None Reported Additional Past Alcohol Use History / Comment(s): HX of smoking 2 ppd for 27 years, quit 1993. She drinks alcohol rarely. Past Drug Use History: None Reported Additional Drug Use History / Comment(s): . - Past Family History Father Family Medical History: Myocardial Infarction (MA) Additional Family Medical History / Comment(s): AT AGE 46-MA Mother Family Medical History: Diabetes Mellitus Additional Family Medical History / Comment(s): AT AGE 66 FROM COMPLICATIONS FROM DM Sister(s) Family Medical History: Diabetes Mellitus Brother(s) Family Medical History: Diabetes Mellitus Daughter(s) Family Medical History: Cancer Son(s) Family Medical History: No Reported History Medications and Allergies Home Medications Medication Instructions Recorded Confirmed Type Atorvastatin [Lipitor] 40 mg PO HS 08/30/15 04/25/19 History Sennosides [Senokot] 17.2 mg PO BID 05/22/17 04/25/19 History Biotin 300 mcg PO DAILY@199901/05/18 04/25/19 History Omeprazole 20 mg PO DAILY 02/13/18 04/25/19 History Polyethylene Glycol 3350 [Miralax] 17 gm PO DAILY@199908/17/18 04/25/19 History Lactulose [Cephulac] 10 gm PO DAILY PRN 09/09/18 04/25/19 History oxyCODONE-APAP 10-325MG [Percocet 1 tab PO Q6H PRN #8 tab 09/17/18 04/25/19 Rx 10-325 mg] Acetaminophen [Tylenol Extra 500 mg PO TID PRN 10/16/18 04/25/19 History Strength] Morphine Sulfate ER [Ms Contin] 15 mg PO TID@0700,1300,1900 10/16/18 04/25/19 History Ferrous Sulfate [Feosol] 325 mg PO DAILY@199904/11/19 04/25/19 History Lisinopril [Zestril] 20 mg PO BID 04/11/19 04/25/19 History guaiFENesin [guaiFENesin Oral 200 mg PO Q6H PRN 04/11/19 04/25/19 History Solution] metFORMIN HCL [Glucophage] 500 mg PO BID 04/11/19 04/25/19 History Calcium Carb-Vit D 500Mg-200Un 1 tab PO DAILY@199904/25/19 04/25/19 History [Oscal 500+D] DULoxetine HCL [Cymbalta] 20 mg PO BID 04/25/19 04/25/19 History Dermaseptin 1 applic TOPICAL HS 04/25/19 04/25/19 History Loratadine [Claritin] 10 mg PO DAILY 04/25/19 04/25/19 History Multivit-Min/FA/Lycopen/Lutein 1 tab PO DAILY@199904/25/19 04/25/19 History [Centrum Silver Tablet] Mylanta 15 ml PO Q6H PRN 04/25/19 04/25/19 History Allergies Allergy/AdvReac Type Severity Reaction Status Date / Time adhesive tape Allergy Severe Rash/Hives Verified 04/25/19 12:30 cephalexin monohydrate Allergy Severe Rash/Hives Verified 04/25/19 12:30 [From Keflex] influenza virus vaccine, Allergy Severe Anaphylaxis Verified 04/25/19 12:30 specific [influenza virus vacc,specific] latex Allergy Severe Rash/Hives Verified 04/25/19 12:30 peanut Allergy Severe Anaphylaxis Verified 04/25/19 12:30 Penicillins Allergy Severe Swelling Verified 04/25/19 12:30 tetanus toxoid, adsorbed Allergy Intermediate Rash/Hives Verified 04/25/19 12:30 baclofen Allergy Unknown Verified 04/25/19 12:30 Influenza Virus Vaccines Allergy Anaphylaxis Verified 04/25/19 12:30 Physical Exam Vitals: Vital Signs Temp Pulse Pulse Resp BP BP Pulse Ox 04/26/19 04:48 97.7 F 86 14 151/78 96 04/25/19 21:15 98.3 F 88 17 162/66 97 04/25/19 21:00 86 04/25/19 16:00 98.3 F 97 16 164/84 98 04/25/19 15:48 98.4 F 93 16 98 04/25/19 15:00 99.6 F 04/25/19 13:30 90 16 171/87 99 04/25/19 13:00 91 16 173/100 99 04/25/19 12:45 87 16 155/76 99 04/25/19 12:30 88 16 155/88 98 04/25/19 12:14 99.4 F 91 16 160/90 99 Intake and Output 04/25/19 04/26/19 04/26/19 22:59 06:59 14:59 Intake Total 1000 Output Total 500 2000 Balance 500 -2000 Intake: Amount of Fluid Infused ( 1000 ml) Output: Urine 500 2000 Uretheral (Salguero) 1000 Other: Voiding Method Indwelling Catheter Obese 67-year-old woman resting in bed with eyes closed. She opens eyes when requested. Minimal verbalization. She complains of pain generalized all over her body. HEENT: Anicteric conjunctiva are pink and moist nasal mucosa grossly intact without significant lesions, there is no thrush. Neck: The neck is supple without significant lymphadenopathy or thyromegaly. Lungs: Good bilateral air entry without significant crackles or wheezing. There is no significant bronchial sounds. There is no egophony or dullness. Heart: Regular rate and rhythm with an audible S1-S2, no S3 no S4. There is no significant murmur click or rub, PMI was nondisplaced. Abdomen: Positive bowel sounds soft and nontender without palpable masses or organomegaly. There was no guarding or rebound. Colostomy to the left abdomen with liquid stool which she states is her norm. Stage IV decubitus ulcer to the sacrum. Extremities:please see the nursing documentation regarding the ulceration of the left leg. There are multiple open wounds to the pretibial area and over the left knee with serous drainage. Muscle wasting to the left lower/calf area. Neuro: Patient is much more awake alert she's oriented to person place and time. Results Results: Laboratory Results WBC 5.5 k/uL (3.8-10.6) 04/26/19 08:07 RBC 3.17 m/uL (3.80-5.40) L 04/26/19 08:07 Hgb 9.0 gm/dL (11.4-16.0) L 04/26/19 08:07 Hct 28.7 % (34.0-46.0) L 04/26/19 08:07 MCV 90.5 fL (80.0-100.0) 04/26/19 08:07 MCH 28.3 pg (25.0-35.0) 04/26/19 08:07 MCHC 31.3 g/dL (31.0-37.0) 04/26/19 08:07 RDW 20.1 % (11.5-15.5) H 04/26/19 08:07 Plt Count 343 k/uL (150-450) D 04/26/19 08:07 Neutrophils % 61 % 04/25/19 14:15 Lymphocytes % 27 % 04/25/19 14:15 Monocytes % 5 % 04/25/19 14:15 Eosinophils % 4 % 04/25/19 14:15 Basophils % 1 % 04/25/19 14:15 Neutrophils # 3.7 k/uL (1.3-7.7) 04/25/19 14:15 Lymphocytes # 1.6 k/uL (1.0-4.8) 04/25/19 14:15 Monocytes # 0.3 k/uL (0-1.0) 04/25/19 14:15 Eosinophils # 0.2 k/uL (0-0.7) 04/25/19 14:15 Basophils # 0.1 k/uL (0-0.2) 04/25/19 14:15 Hypochromasia Marked 04/26/19 08:07 Anisocytosis Moderate 04/26/19 08:07 PT 10.5 sec (9.0-12.0) 04/25/19 14:15 INR 1.0 (<1.2) 04/25/19 14:15 APTT 25.1 sec (22.0-30.0) 04/25/19 14:15 Sodium 142 mmol/L (137-145) 04/26/19 08:07 Potassium 4.1 mmol/L (3.5-5.1) 04/26/19 08:07 Chloride 113 mmol/L (98-107) H 04/26/19 08:07 Carbon Dioxide 23 mmol/L (22-30) 04/26/19 08:07 Anion Gap 6 mmol/L 04/26/19 08:07 BUN 11 mg/dL (7-17) 04/26/19 08:07 Creatinine 0.70 mg/dL (0.52-1.04) 04/26/19 08:07 Est GFR (CKD-EPI)AfAm >90 (>60 ml/min/1.73 sqM) 04/26/19 08:07 Est GFR (CKD-EPI)NonAf 89 (>60 ml/min/1.73 sqM) 04/26/19 08:07 Glucose 108 mg/dL (74-99) H 04/26/19 08:07 POC Glucose (mg/dL) 113 mg/dL (75-99) H 04/26/19 07:08 POC Glu Clay Artist Rachelle John 04/26/19 07:08 Plasma Lactic Acid Maximus 1.2 mmol/L (0.7-2.0) 04/25/19 14:15 Calcium 8.2 mg/dL (8.4-10.2) L 04/26/19 08:07 Total Bilirubin 0.3 mg/dL (0.2-1.3) 04/25/19 14:15 AST 28 U/L (14-36) 04/25/19 14:15 ALT 19 U/L (9-52) 04/25/19 14:15 Alkaline Phosphatase 155 U/L (38-126) H 04/25/19 14:15 Ammonia <9 umol/L (<30) 04/25/19 14:15 Total Protein 7.0 g/dL (6.3-8.2) 04/25/19 14:15 Albumin 2.5 g/dL (3.5-5.0) L 04/25/19 14:15 Urine Color Yellow 04/25/19 16:06 Urine Appearance Cloudy (Clear) H 04/25/19 16:06 Urine pH 5.5 (5.0-8.0) 04/25/19 16:06 Ur Specific Moran 1.019 (1.001-1.035) 04/25/19 16:06 Urine Protein 3+ (Negative) H 04/25/19 16:06 Urine Glucose (UA) Negative (Negative) 04/25/19 16:06 Urine Ketones Negative (Negative) 04/25/19 16:06 Urine Blood Moderate (Negative) H 04/25/19 16:06 Urine Nitrite Negative (Negative) 04/25/19 16:06 Urine Bilirubin Negative (Negative) 04/25/19 16:06 Urine Urobilinogen <2.0 mg/dL (<2.0) 04/25/19 16:06 Ur Leukocyte Esterase Moderate (Negative) H 04/25/19 16:06 Urine RBC 15 /hpf (0-5) H 04/25/19 16:06 Urine WBC 77 /hpf (0-5) H 04/25/19 16:06 Urine WBC Clumps Occasional /hpf (None) H 04/25/19 16:06 Ur Squamous Epith Cells <1 /hpf (0-4) 04/25/19 16:06 Amorphous Sediment Rare /hpf (None) H 04/25/19 16:06 Hyaline Casts 4 /lpf (0-2) H 04/25/19 16:06 Urine Mucus Occasional /hpf (None) H 04/25/19 16:06 Urine Yeast (Budding) Many /hpf (None) H 04/25/19 16:06 CBC & Chem 7: 04/26/19 08:07 04/25/19 14:15 Labs: Abnormal Lab Results - Last 24 Hours (Table) 04/25/19 04/25/19 04/25/19 Range/Units 14:15 14:15 16:06 RBC 3.16 L (3.80-5.40) m/uL Hgb 9.0 L (11.4-16.0) gm/dL Hct 29.2 L (34.0-46.0) % MCHC 30.8 L (31.0-37.0) g/dL RDW 20.0 H (11.5-15.5) % Plt Count 110 L (150-450) k/uL Chloride 110 H (98-107) mmol/L Glucose 105 H (74-99) mg/dL POC Glucose (mg/dL) (75-99) mg/dL Alkaline Phosphatase 155 H (38-126) U/L Albumin 2.5 L (3.5-5.0) g/dL Urine Appearance Cloudy H (Clear) Urine Protein 3+ H (Negative) Urine Blood Moderate H (Negative) Ur Leukocyte Esterase Moderate H (Negative) Urine RBC 15 H (0-5) /hpf Urine WBC 77 H (0-5) /hpf Urine WBC Clumps Occasional H (None) /hpf Amorphous Sediment Rare H (None) /hpf Hyaline Casts 4 H (0-2) /lpf Urine Mucus Occasional H (None) /hpf Urine Yeast (Budding) Many H (None) /hpf 04/25/19 04/26/19 04/26/19 Range/Units 21:04 07:08 08:07 RBC 3.17 L (3.80-5.40) m/uL Hgb 9.0 L (11.4-16.0) gm/dL Hct 28.7 L (34.0-46.0) % MCHC (31.0-37.0) g/dL RDW 20.1 H (11.5-15.5) % Plt Count (150-450) k/uL Chloride (98-107) mmol/L Glucose (74-99) mg/dL POC Glucose (mg/dL) 128 H 113 H (75-99) mg/dL Alkaline Phosphatase (38-126) U/L Albumin (3.5-5.0) g/dL Urine Appearance (Clear) Urine Protein (Negative) Urine Blood (Negative) Ur Leukocyte Esterase (Negative) Urine RBC (0-5) /hpf Urine WBC (0-5) /hpf Urine WBC Clumps (None) /hpf Amorphous Sediment (None) /hpf Hyaline Casts (0-2) /lpf Urine Mucus (None) /hpf Urine Yeast (Budding) (None) /hpf Microbiology - Last 24 Hours (Table) 04/25/19 12:20 Gram Stain - Preliminary Knee - Left Wound Culture - Preliminary 04/25/19 16:06 Urine Culture - Preliminary Urine,Voided Assessment and Plan Plan: This is a 68-year-old female well-known to ID service presenting with possible septic left knee prosthesis. She does have chronic decubitus ulcer stage IV in the sacrum and venous stasis ulcers to the left lower extremity including open wounds over the left knee. Antibiotics will be changed to daptomycin to cover for MRSA and VRE which was obtained on last wound culture from the left leg. Repeat wound culture from the left leg, urine culture and blood cultures are in progress. Orthopedics has indicated recommendations to transfer to [facility] which may occur later today. Continue supportive care. Further recommendations as patient progresses. The above dictated assessment and findings were discussed with Dr. Bhatia. The impression and plan of care have been directed as dictated. Janet Bajwa nurse practitioner acting as scribe for Dr. Bhatia.
[2019-04-26] MEDS ORDERED: DAPTOmycin 500 MG in SODIUM CHLORIDE 0.9% 50 ML IVPB SCH (10:00)
--- NOTE | 2019-04-26 10:05 | P.CNOR ---
History of Present Illness - [facility] Consult date: 04/26/19 Consult reason: other History of present illness: Patient is a 68-year-old female who presented to [facility] yesterday with regards to a wound involving her left knee. Patient resides at [facility]. Patient has a history of a initial left total knee arthroplasty in 2011, he developed an infection, all the hardware was removed with placement of an antibiotic spacer. After infection was cleared, patient underwent an extensive revision surgery of her left knee by Dr. Nuñez. Patient had been doing very well with it, she then in 2014 broke her left hip. She underwent surgery by Dr. Gillette. Since initial follow-ups after that surgery, we have not heard from patient. Patient is a poor historian with regards to her recent medical history. I have no exact timeline on how long the wound has been present. Patient is a very extensive medical history. She has a colostomy, she underwent a subtotal colectomy in July 2018. Currently there is a wound VAC present for a stage IV sacral decubitus ulcer. She has chronic venous stasis and ulcers in the left lower extremity. She has other medical comorbidities. I was able to examine the patient in the emergency room yesterday, she was admitted to our internal medicine group. There was a very large wound involving the medial aspect of the left knee, with obvious purulent drainage present. There is significant amounts of erythema around the knee and trending distally. Any type of range of motion causes severe pain for patient. I discussed with the internal medicine doctor last night that we should consider immediate transfer to tertiary care facility for further workup. With concerns of the deep infection along with the chronic venous stasis in the right lower extremity, this patient may need a amputation. With the extensive amount of hardware, we recommend orthopedic trauma evaluation with other medical services. Review of Systems Constitutional: Reports as per HPI Past Medical History Past Medical History: Atrial Fibrillation, Diabetes Mellitus, Deep Vein Thrombosis (DVT), Fibromyalgia, GERD/Reflux, GI Bleed, Hyperlipidemia, Hypertension, Pneumonia, Renal Disease, Skin Disorder, Sleep Apnea/CPAP/BIPAP, Supraventricular Tachycardia (SVT), Vascular Disorder Additional Past Medical History / Comment(s): Chronic blood loss -anemia, chronic stage III renal failure, morbid obesity, DVT lt lower leg w/ prev IVC filter in place, dermatitis, gastric ulcer w/ [place]-en-Y gastric bypass, chronic lower back pain,hx severe sepsis w/ septic shock/septicemia w/ MRSA, hemorrhoids, cellulitis of LLE, dysphagia, falls, muscle weakness, bilat tinnitus, UTI. peripheral neuropathy (bilat hands/feet), migraines, eczema, sinus problems, lower GI bleed. SALGUERO, COLOSTOMY. DECUBITUS ULCER. 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 Source:: Left Leg & Buttock-MRSA; Urine-VRE & ESBL Past Surgical History: Adenoidectomy, Bariatric Surgery, Bowel Resection, Cholecystectomy, Joint Replacement, Tonsillectomy, Tubal Ligation Additional Past Surgical History / Comment(s): Colostomy 2018, Gastric bypass/[place]-en-Y in 2003, [place] filter 2000, teeth extraction, colonoscopy, EGD, hemorrhoidectomy, panniculectomy, D&C, hystoscopy x 2, LT KNEE replaced 2005-MRSA infection-hardware removed/cemented then replaced again, ORIF L hip repair, total R hip REPLACEMENT, bilat heel spurs removed, bilat CTR, infusaport insertion - since removed. Past Anesthesia/Blood Transfusion Reactions: Blood Transfusion Reaction Additional Past Anesthesia/Blood Transfusion Reaction / Comm: Per chart unspecified reaction. Past Psychological History: Anxiety, Depression Additional Psychological History / Comment(s): Patient is now in extended care. No longer live independently. Does not have any significant family. Was a tobacco smoker stopping several years ago. She has history of smoking 1.5-2 pack per day for 27 years and quit in 1993. She drinks alcohol rarely. 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 Smoking Status: Former smoker Past Alcohol Use History: None Reported Additional Past Alcohol Use History / Comment(s): HX of smoking 2 ppd for 27 years, quit 1993. She drinks alcohol rarely. Past Drug Use History: None Reported Additional Drug Use History / Comment(s): . - Past Family History Father Family Medical History: Myocardial Infarction ([place]) Additional Family Medical History / Comment(s): AT AGE 46-[place] Mother Family Medical History: Diabetes Mellitus Additional Family Medical History / Comment(s): AT AGE 66 FROM COMPLICATIONS FROM DM Sister(s) Family Medical History: Diabetes Mellitus Brother(s) Family Medical History: Diabetes Mellitus Daughter(s) Family Medical History: Cancer Son(s) Family Medical History: No Reported History Medications and Allergies Home Medications Medication Instructions Recorded Confirmed Type Atorvastatin [Lipitor] 40 mg PO HS 08/30/15 04/25/19 History Sennosides [Senokot] 17.2 mg PO BID 05/22/17 04/25/19 History Biotin 300 mcg PO DAILY@199901/05/18 04/25/19 History Omeprazole 20 mg PO DAILY 02/13/18 04/25/19 History Polyethylene Glycol 3350 [Miralax] 17 gm PO DAILY@199908/17/18 04/25/19 History Lactulose [Cephulac] 10 gm PO DAILY PRN 09/09/18 04/25/19 History oxyCODONE-APAP 10-325MG [Percocet 1 tab PO Q6H PRN #8 tab 09/17/18 04/25/19 Rx 10-325 mg] Acetaminophen [Tylenol Extra 500 mg PO TID PRN 10/16/18 04/25/19 History Strength] Morphine Sulfate ER [Ms Contin] 15 mg PO TID@0700,1300,1900 10/16/18 04/25/19 History Ferrous Sulfate [Feosol] 325 mg PO DAILY@199904/11/19 04/25/19 History Lisinopril [Zestril] 20 mg PO BID 04/11/19 04/25/19 History guaiFENesin [guaiFENesin Oral 200 mg PO Q6H PRN 04/11/19 04/25/19 History Solution] metFORMIN HCL [Glucophage] 500 mg PO BID 04/11/19 04/25/19 History Calcium Carb-Vit D 500Mg-200Un 1 tab PO DAILY@199904/25/19 04/25/19 History [Oscal 500+D] DULoxetine HCL [Cymbalta] 20 mg PO BID 04/25/19 04/25/19 History Dermaseptin 1 applic TOPICAL HS 04/25/19 04/25/19 History Loratadine [Claritin] 10 mg PO DAILY 04/25/19 04/25/19 History Multivit-Min/FA/Lycopen/Lutein 1 tab PO DAILY@199904/25/19 04/25/19 History [Centrum Silver Tablet] Mylanta 15 ml PO Q6H PRN 04/25/19 04/25/19 History Allergies Allergy/AdvReac Type Severity Reaction Status Date / Time adhesive tape Allergy Severe Rash/Hives Verified 04/25/19 12:30 cephalexin monohydrate Allergy Severe Rash/Hives Verified 04/25/19 12:30 [From Keflex] influenza virus vaccine, Allergy Severe Anaphylaxis Verified 04/25/19 12:30 specific [influenza virus vacc,specific] latex Allergy Severe Rash/Hives Verified 04/25/19 12:30 peanut Allergy Severe Anaphylaxis Verified 04/25/19 12:30 Penicillins Allergy Severe Swelling Verified 04/25/19 12:30 tetanus toxoid, adsorbed Allergy Intermediate Rash/Hives Verified 04/25/19 12:30 baclofen Allergy Unknown Verified 04/25/19 12:30 Influenza Virus Vaccines Allergy Anaphylaxis Verified 04/25/19 12:30 Physical Examination Left lower extremity: Obvious soft tissue wound noted on the medial aspect of the left knee, there is obvious drainage and significant amounts of erythema. Previous surgical scars are noted. Chronic skin changes and skin weeping noted in the left lower extremity, distal to the knee. Any range of motion of the patient's lower extremity resulted in severe pain. Results - Labs Labs: Abnormal Lab Results - Last 24 Hours (Table) 04/25/19 04/25/19 04/25/19 Range/Units 14:15 14:15 16:06 RBC 3.16 L (3.80-5.40) m/uL Hgb 9.0 L (11.4-16.0) gm/dL Hct 29.2 L (34.0-46.0) % MCHC 30.8 L (31.0-37.0) g/dL RDW 20.0 H (11.5-15.5) % Plt Count 110 L (150-450) k/uL Chloride 110 H (98-107) mmol/L Glucose 105 H (74-99) mg/dL POC Glucose (mg/dL) (75-99) mg/dL Calcium (8.4-10.2) mg/dL Alkaline Phosphatase 155 H (38-126) U/L Albumin 2.5 L (3.5-5.0) g/dL Urine Appearance Cloudy H (Clear) Urine Protein 3+ H (Negative) Urine Blood Moderate H (Negative) Ur Leukocyte Esterase Moderate H (Negative) Urine RBC 15 H (0-5) /hpf Urine WBC 77 H (0-5) /hpf Urine WBC Clumps Occasional H (None) /hpf Amorphous Sediment Rare H (None) /hpf Hyaline Casts 4 H (0-2) /lpf Urine Mucus Occasional H (None) /hpf Urine Yeast (Budding) Many H (None) /hpf 04/25/19 04/26/19 04/26/19 Range/Units 21:04 07:08 08:07 RBC 3.17 L (3.80-5.40) m/uL Hgb 9.0 L (11.4-16.0) gm/dL Hct 28.7 L (34.0-46.0) % MCHC (31.0-37.0) g/dL RDW 20.1 H (11.5-15.5) % Plt Count (150-450) k/uL Chloride (98-107) mmol/L Glucose (74-99) mg/dL POC Glucose (mg/dL) 128 H 113 H (75-99) mg/dL Calcium (8.4-10.2) mg/dL Alkaline Phosphatase (38-126) U/L Albumin (3.5-5.0) g/dL Urine Appearance (Clear) Urine Protein (Negative) Urine Blood (Negative) Ur Leukocyte Esterase (Negative) Urine RBC (0-5) /hpf Urine WBC (0-5) /hpf Urine WBC Clumps (None) /hpf Amorphous Sediment (None) /hpf Hyaline Casts (0-2) /lpf Urine Mucus (None) /hpf Urine Yeast (Budding) (None) /hpf 04/26/19 Range/Units 08:07 RBC (3.80-5.40) m/uL Hgb (11.4-16.0) gm/dL Hct (34.0-46.0) % MCHC (31.0-37.0) g/dL RDW (11.5-15.5) % Plt Count (150-450) k/uL Chloride 113 H (98-107) mmol/L Glucose 108 H (74-99) mg/dL POC Glucose (mg/dL) (75-99) mg/dL Calcium 8.2 L (8.4-10.2) mg/dL Alkaline Phosphatase (38-126) U/L Albumin (3.5-5.0) g/dL Urine Appearance (Clear) Urine Protein (Negative) Urine Blood (Negative) Ur Leukocyte Esterase (Negative) Urine RBC (0-5) /hpf Urine WBC (0-5) /hpf Urine WBC Clumps (None) /hpf Amorphous Sediment (None) /hpf Hyaline Casts (0-2) /lpf Urine Mucus (None) /hpf Urine Yeast (Budding) (None) /hpf Microbiology - Last 24 Hours (Table) 04/25/19 12:20 Gram Stain - Preliminary Knee - Left Wound Culture - Preliminary 04/25/19 16:06 Urine Culture - Preliminary Urine,Voided H & H 04/25/19 04/26/19 Range/Units 14:15 08:07 Hgb 9.0 L 9.0 L (11.4-16.0) gm/dL Hct 29.2 L 28.7 L (34.0-46.0) % Coagulation 04/25/19 Range/Units 14:15 INR 1.0 (<1.2) Result Diagrams: 04/26/19 08:07 04/26/19 08:07 Assessment and Plan Plan: Assessment: 1. 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 Multiple medical comorbidities Plan: After discussion with my attending Dr. Nuñez, we recommended immediate transfer to a tertiary care facility. I discussed this with internal medicine, and they agree with that plan. I contacted [facility] transfer team and discussed the case, they do except admission. Hospital records, including operative reports will be put together for transfer with patient. Time with Patient: Less than 30
--- NOTE | 2019-04-26 11:44 | P.DS ---
Providers Date of admission: 04/25/19 16:47 Expected date of discharge: 04/26/19 Attending physician: Shelby Mckeon Consults: 04/25/19 15:20 Consult Physician Routine Consulting Provider: Surinder Nuñez Consult Reason/Comments: Infected prothesis Do you want consulting provider notified?: Yes 04/25/19 15:21 Consult Physician Routine Consulting Provider: Clayton Bhatia Consult Reason/Comments: septic arthritis Do you want consulting provider notified?: Yes Primary care physician: [facility] Course: Final diagnosis Possible infection of the left knee prosthesis Sacral decubitus ulcer Atrial fibrillation presently rate controlled History of DVT in the past Fibromyalgia Gastroesophageal reflux disease Hypertension Hyperlipidemia next line sleep apnea Peripheral vascular disease Discharge disposition Patient is being transferred in a stable condition with guarded prognosis to [facility] for higher level of care with orthopedic trauma specialists for possible amputation of the right lower extremity. Total time taken is 35 minutes. History of present illness Patient is a 68-year-old female was transferred from subacute detention b ecause of possibly of infection of the left leg patient appears to have infection of the left knee prosthesis which is swollen tender red and some pus coming out of the knee area. Patient has a wound VAC and has a sacral decubitus ulcer. Patient does have a colostomy as well. Patient was recently treated for urinary tract infection and completed antibiotic therapy with Laura. Patient was evaluated by Dr. Bhatia in the past with Dr. Bhatia will be consulting from infectious disease and the Dr. Nuñez will be consulted for infected prosthesis. Patient will be started on empiric antibiotics vancomycin and Zosyn cultures will be done from the pus. Patient was evaluated by orthopedics and recommending a transfer to a tertiary care facility for further workup and orthopedic trauma evaluation. Transfer to [facility] was accepted and will be arranged with case management. On exam vital signs are stable. Temp is 97.7F, pulse is 86, respirations are 14, blood pressure is 151/78, oxygen saturation is 96% on room air. Cardio S1 and S2 are heard. Respiratory system shows clear to auscultation. Abdomen is soft and nontender. Nervous system shows no new focal deficits and all with chronic weakness and muscle atrophy bilateral legs. Please refer to medication reconciliation sheet for a list of medications. Patient Condition at Discharge: Stable Plan - Discharge Summary Discharge Rx Participant: No New Discharge Prescriptions: No Action Atorvastatin [Lipitor] 40 mg PO HS Sennosides [Senokot] 17.2 mg PO BID Biotin 300 mcg PO DAILY@1999 Omeprazole 20 mg PO DAILY Polyethylene Glycol 3350 [Miralax] 17 gm PO DAILY@1999 Lactulose [Cephulac] 10 gm PO DAILY PRN PRN Reason: Constipation oxyCODONE-APAP 10-325MG [Percocet 10-325 mg] 1 tab PO Q6H PRN #8 tab PRN Reason: Pain Morphine Sulfate ER [Ms Contin] 15 mg PO TID@0700,1300,1900 Acetaminophen [Tylenol Extra Strength] 500 mg PO TID PRN PRN Reason: LOW GRADE FEVER metFORMIN HCL [Glucophage] 500 mg PO BID Lisinopril [Zestril] 20 mg PO BID Ferrous Sulfate [Feosol] 325 mg PO DAILY@1999 guaiFENesin [guaiFENesin Oral Solution] 200 mg PO Q6H PRN PRN Reason: Cough DULoxetine HCL [Cymbalta] 20 mg PO BID Multivit-Min/FA/Lycopen/Lutein [Centrum Silver Tablet] 1 tab PO DAILY@1999 Calcium Carb-Vit D 500Mg-200Un [Oscal 500+D] 1 tab PO DAILY@1999 Dermaseptin 1 applic TOPICAL HS Loratadine [Claritin] 10 mg PO DAILY Mylanta 15 ml PO Q6H PRN PRN Reason: Indigestion Discharge Medication List Atorvastatin [Lipitor] 40 mg PO HS 08/30/15 [History] Sennosides [Senokot] 17.2 mg PO BID 05/22/17 [History] Biotin 300 mcg PO DAILY@199901/05/18 [History] Omeprazole 20 mg PO DAILY 02/13/18 [History] Polyethylene Glycol 3350 [Miralax] 17 gm PO DAILY@199908/17/18 [History] Lactulose [Cephulac] 10 gm PO DAILY PRN 09/09/18 [History] oxyCODONE-APAP 10-325MG [Percocet 10-325 mg] 1 tab PO Q6H PRN #8 tab 09/17/18 [Rx] Acetaminophen [Tylenol Extra Strength] 500 mg PO TID PRN 10/16/18 [History] Morphine Sulfate ER [Ms Contin] 15 mg PO TID@0700,1300,1900 10/16/18 [History] Ferrous Sulfate [Feosol] 325 mg PO DAILY@199904/11/19 [History] Lisinopril [Zestril] 20 mg PO BID 04/11/19 [History] guaiFENesin [guaiFENesin Oral Solution] 200 mg PO Q6H PRN 04/11/19 [History] metFORMIN HCL [Glucophage] 500 mg PO BID 04/11/19 [History] Calcium Carb-Vit D 500Mg-200Un [Oscal 500+D] 1 tab PO DAILY@199904/25/19 [History] DULoxetine HCL [Cymbalta] 20 mg PO BID 04/25/19 [History] Dermaseptin 1 applic TOPICAL HS 04/25/19 [History] Loratadine [Claritin] 10 mg PO DAILY 04/25/19 [History] Multivit-Min/FA/Lycopen/Lutein [Centrum Silver Tablet] 1 tab PO DAILY@199904/25/19 [History] Mylanta 15 ml PO Q6H PRN 04/25/19 [History] Follow up Appointment(s)/Referral(s): Carlo Frederick MD [Primary Care Provider] - 1-2 days
[2019-04-26 12:52] VITALS: BMI 34.3
--- NOTE | 2019-04-26 23:03 | P.CON ---
Consult Note - . Consult date: 04/26/19 Assessment/Plan:: This is a 68-year-old female patient well-known to ID service as she has been treated in the past for multiple admissions for acute respiratory failure requiring intubation, pneumonia and sepsis as well as bacteremia with IV antibiotic treatment in the past. 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 Patient is known to have chronic pressure ulcers bilateral buttocks and venous stasis ulcers to the left leg. She has been seen in the wound center in the past but no recent visits. Patient now presents due to wound possible abscess to the left lower extremity. She was recently treated with Invanz for urinary tract infection. She has had a wound VAC in place for the sacral wound stage IV decubitus ulcer. Patient was afebrile, white count 6, creatinine 0.75. Urinalysis positive for urinary tract infection. Chest x-ray shows no acute pulmonary disease. Left knee x-ray reveals suspicion of for tibial prosthetic infection. Patient has been seen by orthopedics with recommendations to transfer patient to tertiary care. Patient has been started on Vanco and is status post 1 L of IV fluids and admitted to the [facility] floor. 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 Repeat wound culture, urine culture blood culture all in progress. Patient also noted to have altered mental status, she will open eyes. She states she hurts all over.Please see the consult is dictated by nurse practitioner Mrs. Janet Bajwa. Initially the patient is well-known to the service. Now presents extended care facility with ongoing pressure ulceration of the coccyx however the major changes to the left lower extremity. He has noted there is marked swelling, potential tissue necrosis and profoundly swollen abnormal left knee. She has been seen by orthopedics and thoroughly agree with transfer to a tertiary center for further evaluation. Likely that she'll of proceeding to surgical intervention the near future likely amputation to that left leg. Given the patient's many illnesses and progressive status she however may be a candidate for palliative care or even hospice depending on further findings. With her history of VRE and MRSA vancomycin as transitioned to daptomycin pending further data. We'll follow if she stays at our facility likely will transfer to tertiary center in the near future. Agree with evaluation, assessment and plan as dictated by nurse practitioner Mrs. Janet Bajwa.
== END 2019-04-26 11:29 | disposition short-term general hospital (02) | DRG 559 ==
LOC: EC 12:06 → 4MS4W 16:47
PROVIDERS: ADMIT Internal Medicine; ATTEND Internal Medicine
DX: T84.54XA Infection and inflammatory reaction due to internal left knee prosthesis, initial encounter (principal); L89.154 Pressure ulcer of sacral region, stage 4; L97.929 Non-pressure chronic ulcer of unspecified part of left lower leg with unspecified severity; I47.1 Supraventricular tachycardia; Y83.1 Surgical operation with implant of artificial internal device as the cause of abnormal reaction of the patient, or of later complication, without mention of misadventure at the time of the procedure; L89.319 Pressure ulcer of right buttock, unspecified stage; L89.329 Pressure ulcer of left buttock, unspecified stage; E66.01 Morbid (severe) obesity due to excess calories; Z68.34 Body mass index [BMI] 34.0-34.9, adult; E11.51 Type 2 diabetes mellitus with diabetic peripheral angiopathy without gangrene; D50.0 Iron deficiency anemia secondary to blood loss (chronic); E78.5 Hyperlipidemia, unspecified; F32.9 Major depressive disorder, single episode, unspecified; F41.9 Anxiety disorder, unspecified; G47.30 Sleep apnea, unspecified; I12.9 Hypertensive chronic kidney disease with stage 1 through stage 4 chronic kidney disease, or unspecified chronic kidney disease; E11.22 Type 2 diabetes mellitus with diabetic chronic kidney disease; N18.3 Chronic kidney disease, stage 3 (moderate); Z79.84 Long term (current) use of oral hypoglycemic drugs; I48.91 Unspecified atrial fibrillation; I83.029 Varicose veins of left lower extremity with ulcer of unspecified site; I87.8 Other specified disorders of veins; K21.9 Gastro-esophageal reflux disease without esophagitis; M79.7 Fibromyalgia; Z87.440 Personal history of urinary (tract) infections; Z79.899 Other long term (current) drug therapy; Z82.49 Family history of ischemic heart disease and other diseases of the circulatory system; Z83.3 Family history of diabetes mellitus; Z86.14 Personal history of Methicillin resistant Staphylococcus aureus infection; Z86.718 Personal history of other venous thrombosis and embolism; Z87.891 Personal history of nicotine dependence; Z88.0 Allergy status to penicillin; Z93.3 Colostomy status; Z95.828 Presence of other vascular implants and grafts; Z96.641 Presence of right artificial hip joint; Z98.84 Bariatric surgery status; E11.42 Type 2 diabetes mellitus with diabetic polyneuropathy; Z87.01 Personal history of pneumonia (recurrent); L30.9 Dermatitis, unspecified; Z09 Encounter for follow-up examination after completed treatment for conditions other than malignant neoplasm; Z96.652 Presence of left artificial knee joint; H93.19 Tinnitus, unspecified ear; Z88.7 Allergy status to serum and vaccine; Z88.8 Allergy status to other drugs, medicaments and biological substances; Z88.1 Allergy status to other antibiotic agents; Z91.040 Latex allergy status; Z90.49 Acquired absence of other specified parts of digestive tract
CPT/HCPCS: 36415; 71045; 80048; 80053; 81001; 82140; 83605; 85025; 85027; 85610; 85730; 87040; 87070; 87077; 87086; 87186; 87205; 93005; 96361; 96365; 96366; 96375; 99285

== ENCOUNTER 2019-07-18 08:37 | Inpatient (IN) | payer MEDICARE, OTHER ==
[2019-07-18] MEDS ORDERED: VANCOMYCIN IV PER PHARMACY 1 EACH MISC MISCELLANE PRN (08:55)
[2019-07-18] MEDS ORDERED: CEFEPIME 2 GM in SODIUM CHLORIDE 0.9% 100 ML IVPB STA (08:55)
[2019-07-18] MEDS ORDERED: LEVOFLOXACIN 750MG-D5W PMX 750 MG in DEXTROSE/WATER 1 150ML.BAG IVPB STA (08:57)
[2019-07-18] MEDS ORDERED: ACETAMINOPHEN SUPPOSITORY 650 MG SUPP RECTAL STA (09:00)
--- NOTE | 2019-07-18 09:04 | ED ---
General Adult HPI - General Chief complaint: Altered Mental Status Stated complaint: Sepsis Time Seen by Provider: 07/18/19 08:39 Source: patient Mode of arrival: EMS Limitations: no limitations - History of Present Illness Initial comments: Dictation was produced using [employer] dictation software. please excuse any grammatical, word or spelling errors. Chief Complaint: 68-year-old female [facility] for concerns of sepsis. History of Present Illness: She is 68-year-old female she presents today via EMS for concerns of sepsis. Patient unable to provide history at this time. When EMS patient was found to be altered today. She did have an elevated temperature. Patient has history of sepsis. Patient's history of recent decubitus ulcers requiring a wound VAC placement. It is unclear what patient's baseline mental status is. Unable to obtain review of systems secondary to mental status. PHYSICAL EXAM: General Impression: Doesn't follow commands, eyes open, yelling "ouch" HEENT: Normocephalic atraumatic, extra-ocular movements intact, pupils equal and reactive to light bilaterally, dry mucous membranes Cardiovascular: Tachycardic Chest: Bilateral breath sounds Abdomen: Bowel sounds present, abdomen soft, non-tender, non-distended, no organomegaly Musculoskeletal: Left lower extremity amputation, mild cellulitic changes to the right anterior tibia, no erythematous swollen joints Neurological: CN II-XII grossly intact, negative Kernig's, negative Brudzinski's Skin: Intact with no visualized rashes, wound vacs in place at the lower back without any significant erythema or drainage : No peripheral erythema, Salguero catheter placed with urine in the Salguero tubing ED course: 68-year-old feel presents today with altered mental status, concerns of sepsis. All signs upon arrival shows heart rate 129, temperature 101.1. She is normotensive with a blood pressure of 153/63. Patient not hypoxic. Clinical presentation concerning for severe sepsisgiven altered mental status. She is however normotensive at this time. Patient given rectal Tylenol. Tachycardia is likely secondary to temperature elevation. Patient given intravenous fluid bolus based on ideal body weight. Blood cultures ordered, antibiotics ordered. Laboratory evaluation obtained. No leukocytosis. Hemoglobin 9.3. Coag panel unremarkable. Metabolic panel does show findings of metabolic acidosis. Lactic acid level however is 1.2. Troponins are 0.0 0.8. Urinalysis concerning for urinary tract infection. Chest x-ray shows chronic changes without evidence for acute pulmonary disease. Brain CT is unremarkable for any acute processes. Computed tomography scan of the abdomen and pelvis shows small left lower lobe infiltrate concerning for pneumonia, moderate fecal stasis, right sided nonobstructing kidney stone. At this point patient's clinical presentation consistent with sepsis. There is no 1 apparent infectious source at this time. Patient started on broad-spectrum antibiotics. Microbiology was reviewed from recent history. Patient has complex infectious disease history. Infectious disease will be consulted. Patient reevaluated after fluids with improved mental status. She is now conversing more normally. Continues to remain normotensive. Discussed patient case with . she was willing to accept patients care. EKG interpretation: Ventricular rate 131, sinus tachycardia, DC interval 164, temperature 62, QTC 395. No DC prolongation, no QTC prolongation, no ST or T- wave changes noted. Overall, this EKG is unremarkable - Related Data Home Medications Medication Instructions Recorded Confirmed Atorvastatin [Lipitor] 40 mg PO HS 08/30/15 07/18/19 Sennosides [Senokot] 17.2 mg PO DAILY 05/22/17 07/18/19 Polyethylene Glycol 3350 [Miralax] 17 gm PO DAILY 08/17/18 07/18/19 Morphine Sulfate ER [Ms Contin] 15 mg PO BID@0700,1900 10/16/18 07/18/19 Ferrous Sulfate [Feosol] 325 mg PO DAILY@199904/11/19 07/18/19 metFORMIN HCL [Glucophage] 500 mg PO BID 04/11/19 07/18/19 DULoxetine HCL [Cymbalta] 20 mg PO BID 04/25/19 07/18/19 Loratadine [Claritin] 10 mg PO DAILY 04/25/19 07/18/19 Multivit-Min/FA/Lycopen/Lutein 1 tab PO DAILY@199904/25/19 07/18/19 [Centrum Silver Tablet] Acetaminophen Tab [Tylenol Tab] 650 mg PO Q6H PRN 07/18/19 07/18/19 Furosemide [Lasix] 20 mg PO DAILY 07/18/19 07/18/19 Hydrocodone/Acetaminophen [[place] 1 tab PO Q6H PRN 07/18/19 07/18/19 10-325] INSULIN LISPRO (HumaLOG) [HumaLOG] See Protocol SQ BID@0500,1600 07/18/19 07/18/19 Lisinopril 40 mg PO DAILY 07/18/19 07/18/19 Menthol/Zinc Oxide [Calmoseptine 1 applic TOPICAL TID 07/18/19 07/18/19 Ointment] Methocarbamol [Robaxin] 500 mg PO QID 07/18/19 07/18/19 Mupirocin 2% Oint [Bactroban 2% 1 applic TOPICAL BID 07/18/19 07/18/19 Oint] Pantoprazole Sodium [Protonix] 40 mg PO DAILY 07/18/19 07/18/19 Potassium Chloride ER [K-Dur 10] 10 meq PO DAILY 07/18/19 07/18/19 Allergies Allergy/AdvReac Type Severity Reaction Status Date / Time adhesive tape Allergy Severe Rash/Hives Verified 07/18/19 10:13 cephalexin monohydrate Allergy Severe Rash/Hives Verified 07/18/19 10:13 [From Keflex] influenza virus vaccine, Allergy Severe Anaphylaxis Verified 07/18/19 10:13 specific [influenza virus vacc,specific] latex Allergy Severe Rash/Hives Verified 07/18/19 10:13 peanut Allergy Severe Anaphylaxis Verified 07/18/19 10:13 Penicillins Allergy Severe Swelling Verified 07/18/19 10:13 tetanus toxoid, adsorbed Allergy Intermediate Rash/Hives Verified 07/18/19 10:13 baclofen Allergy Unknown Verified 07/18/19 10:13 Influenza Virus Vaccines Allergy Anaphylaxis Verified 07/18/19 10:13 Review of Systems ROS Statement: Those systems with pertinent positive or pertinent negative responses have been documented in the HPI. ROS Other: All systems not noted in ROS Statement are negative. Past Medical History Past Medical History: Atrial Fibrillation, Diabetes Mellitus, Deep Vein Thrombosis (DVT), Fibromyalgia, GERD/Reflux, GI Bleed, Hyperlipidemia, Hypertension, Pneumonia, Renal Disease, Skin Disorder, Sleep Apnea/CPAP/BIPAP, Supraventricular Tachycardia (SVT), Vascular Disorder Additional Past Medical History / Comment(s): Chronic blood loss -anemia, chronic stage III renal failure, morbid obesity, DVT lt lower leg w/ prev IVC filter in place, dermatitis, gastric ulcer w/ [place]-en-Y gastric bypass, chronic lower back pain,hx severe sepsis w/ septic shock/septicemia w/ MRSA, hemorrhoids, cellulitis of LLE, dysphagia, falls, muscle weakness, bilat tinnitus, UTI. peripheral neuropathy (bilat hands/feet), migraines, eczema, sinus problems, lower GI bleed. SALGUERO, COLOSTOMY. DECUBITUS ULCER. 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 Source:: KNEE & Buttock-MRSA; Urine-VRE & ESBL Past Surgical History: Adenoidectomy, Bariatric Surgery, Bowel Resection, Cholecystectomy, Joint Replacement, Tonsillectomy, Tubal Ligation Additional Past Surgical History / Comment(s): Colostomy 2018, Gastric bypass/[place]-en-Y in 2003, Lizzy filter 2000, teeth extraction, colonoscopy, EGD, hemorrhoidectomy, panniculectomy, D&C, hystoscopy x 2, LT KNEE replaced 2005-MRSA infection-hardware removed/cemented then replaced again, ORIF L hip repair, total R hip REPLACEMENT, bilat heel spurs removed, bilat CTR, infusaport insertion - since removed. Past Anesthesia/Blood Transfusion Reactions: Blood Transfusion Reaction Additional Past Anesthesia/Blood Transfusion Reaction / Comment(s): Per chart unspecified reaction. Past Psychological History: Anxiety, Depression Smoking Status: Former smoker Past Alcohol Use History: None Reported Past Drug Use History: None Reported - Past Family History Father Family Medical History: Myocardial Infarction ([place]) Additional Family Medical History / Comment(s): AT AGE 46-CO Mother Family Medical History: Diabetes Mellitus Additional Family Medical History / Comment(s): AT AGE 66 FROM COMPLICATIONS FROM DM Sister(s) Family Medical History: Diabetes Mellitus Brother(s) Family Medical History: Diabetes Mellitus Daughter(s) Family Medical History: Cancer Son(s) Family Medical History: No Reported History General Exam Limitations: no limitations Course Vital Signs 07/18/19 07/18/19 07/18/19 08:43 09:00 09:30 Temperature 101.1 F H Pulse Rate 129 H 134 H 126 H Respiratory 20 22 23 Rate Blood Pressure 153/63 154/63 147/69 O2 Sat by Pulse 96 96 93 L Oximetry 07/18/19 07/18/1919 10:00 10:30 11:22 Temperature 99.4 F Pulse Rate 124 H 112 H Respiratory 19 21 Rate Blood Pressure 125/72 133/63 O2 Sat by Pulse 95 96 Oximetry 07/18/19 07/18/19 11:30 11:32 Temperature Pulse Rate 106 H Respiratory 20 Rate Blood Pressure 94/43 O2 Sat by Pulse 99 Oximetry Medical Decision Making - Lab Data Result diagrams: 07/18/19 09:14 07/18/19 09:14 Lab Results 07/18/19 07/18/19 07/18/19 Range/Units 09:14 09:14 09:14 WBC 8.4 (3.8-10.6) k/uL RBC 3.07 L (3.80-5.40) m/uL Hgb 9.2 L (11.4-16.0) gm/dL Hct 29.3 L (34.0-46.0) % MCV 95.4 (80.0-100.0) fL MCH 29.9 (25.0-35.0) pg MCHC 31.3 (31.0-37.0) g/dL RDW 15.1 (11.5-15.5) % Plt Count 313 (150-450) k/uL Neutrophils % 92 % Lymphocytes % 5 % Monocytes % 2 % Eosinophils % 1 % Basophils % 0 % Neutrophils # 7.7 (1.3-7.7) k/uL Lymphocytes # 0.4 L (1.0-4.8) k/uL Monocytes # 0.2 (0-1.0) k/uL Eosinophils # 0.1 (0-0.7) k/uL Basophils # 0.0 (0-0.2) k/uL Hypochromasia Slight PT (9.0-12.0) sec INR (<1.2) APTT (22.0-30.0) sec Sodium 140 (137-145) mmol/L Potassium 5.1 (3.5-5.1) mmol/L Chloride 115 H (98-107) mmol/L Carbon Dioxide 13 L (22-30) mmol/L Anion Gap 12 mmol/L BUN 44 H (7-17) mg/dL Creatinine 1.35 H (0.52-1.04) mg/dL Est GFR (CKD-EPI)AfAm 46 (>60 ml/min/1.73 sqM) Est GFR (CKD-EPI)NonAf 40 (>60 ml/min/1.73 sqM) Glucose 249 H (74-99) mg/dL Plasma Lactic Acid Maximus 1.2 (0.7-2.0) mmol/L Calcium 8.6 (8.4-10.2) mg/dL Total Bilirubin 0.6 (0.2-1.3) mg/dL AST 19 (14-36) U/L ALT 14 (4-34) U/L Alkaline Phosphatase 176 H (38-126) U/L Troponin I (0.000-0.034) ng/mL Total Protein 6.8 (6.3-8.2) g/dL Albumin 2.8 L (3.5-5.0) g/dL Urine Color Urine Appearance (Clear) Urine pH (5.0-8.0) Ur Specific Higbee (1.001-1.035) Urine Protein (Negative) Urine Glucose (UA) (Negative) Urine Ketones (Negative) Urine Blood (Negative) Urine Nitrite (Negative) Urine Bilirubin (Negative) Urine Urobilinogen (<2.0) mg/dL Ur Leukocyte Esterase (Negative) Urine RBC (0-5) /hpf Urine WBC (0-5) /hpf Urine WBC Clumps (None) /hpf Ur Squamous Epith Cells (0-4) /hpf Amorphous Sediment (None) /hpf Urine Bacteria (None) /hpf Urine Mucus (None) /hpf 07/18/19 07/18/19 07/18/19 Range/Units 09:14 09:14 09:40 WBC (3.8-10.6) k/uL RBC (3.80-5.40) m/uL Hgb (11.4-16.0) gm/dL Hct (34.0-46.0) % MCV (80.0-100.0) fL MCH (25.0-35.0) pg MCHC (31.0-37.0) g/dL RDW (11.5-15.5) % Plt Count (150-450) k/uL Neutrophils % % Lymphocytes % % Monocytes % % Eosinophils % % Basophils % % Neutrophils # (1.3-7.7) k/uL Lymphocytes # (1.0-4.8) k/uL Monocytes # (0-1.0) k/uL Eosinophils # (0-0.7) k/uL Basophils # (0-0.2) k/uL Hypochromasia PT 10.4 (9.0-12.0) sec INR 1.0 (<1.2) APTT 23.8 (22.0-30.0) sec Sodium (137-145) mmol/L Potassium (3.5-5.1) mmol/L Chloride (98-107) mmol/L Carbon Dioxide (22-30) mmol/L Anion Gap mmol/L BUN (7-17) mg/dL Creatinine (0.52-1.04) mg/dL Est GFR (CKD-EPI)AfAm (>60 ml/min/1.73 sqM) Est GFR (CKD-EPI)NonAf (>60 ml/min/1.73 sqM) Glucose (74-99) mg/dL Plasma Lactic Acid Maximus (0.7-2.0) mmol/L Calcium (8.4-10.2) mg/dL Total Bilirubin (0.2-1.3) mg/dL AST (14-36) U/L ALT (4-34) U/L Alkaline Phosphatase (38-126) U/L Troponin I 0.018 (0.000-0.034) ng/mL Total Protein (6.3-8.2) g/dL Albumin (3.5-5.0) g/dL Urine Color Yellow Urine Appearance Cloudy H (Clear) Urine pH 5.5 (5.0-8.0) Ur Specific [place]bee 1.016 (1.001-1.035) Urine Protein 2+ H (Negative) Urine Glucose (UA) Negative (Negative) Urine Ketones Negative (Negative) Urine Blood Small H (Negative) Urine Nitrite Negative (Negative) Urine Bilirubin Negative (Negative) Urine Urobilinogen <2.0 (<2.0) mg/dL Ur Leukocyte Esterase Large H (Negative) Urine RBC 13 H (0-5) /hpf Urine WBC 70 H (0-5) /hpf Urine WBC Clumps Moderate H (None) /hpf Ur Squamous Epith Cells <1 (0-4) /hpf Amorphous Sediment Occasional H (None) /hpf Urine Bacteria Occasional H (None) /hpf Urine Mucus Rare H (None) /hpf Critical Care Time Critical Care Time: Yes (31) Disposition Clinical Impression: Sepsis Disposition: ADMITTED IP TO THIS [facility] Condition: Fair Referrals: Carlo Frederick MD [Primary Care Provider] - 1-2 days Decision Time: 11:39
[2019-07-18] MEDS: SODIUM CHLORIDE 0.9% 500 ML 500 ML IV SCH ×2 (09:10→09:11)
[2019-07-18] MEDS ORDERED: VANCOMYCIN 2,000 MG in SODIUM CHLORIDE 0.9% 500 ML 500 ML IVPB ONE (09:30)
[2019-07-18 09:32] LABS: Basophils % (A) 0 %; Eosinophils # (A) 0.1 k/uL (0-0.7); Eosinophils % (A) 1 %; HCT 29.3 % (34.0-46.0); HGB 9.2 gm/dL (11.4-16.0); Hypochromasia Slight; Lymphocytes # (A) 0.4 k/uL (1.0-4.8); Lymphocytes % (A) 5 %; MCH 29.9 pg (25.0-35.0); MCHC 31.3 g/dL (31.0-37.0); MCV 95.4 fL (80.0-100.0); Mean Platelet Volume 7.4; Monocytes # (A) 0.2 k/uL (0-1.0); Monocytes % (A) 2 %; Neutrophils # (A) 7.7 k/uL (1.3-7.7); Neutrophils % (A) 92 %; Platelet Count 313 k/uL (150-450); RBC 3.07 m/uL (3.80-5.40); RDW 15.1 % (11.5-15.5); WBC 8.4 k/uL (3.8-10.6)
[2019-07-18 09:40] LABS: Albumin 2.8 g/dL (3.5-5.0); Calcium 8.6 mg/dL (8.4-10.2); Potassium 5.1 mmol/L (3.5-5.1); Total Bilirubin 0.6 mg/dL (0.2-1.3); Total Protein 6.8 g/dL (6.3-8.2)
[2019-07-18 09:43] LABS: Partial Thromboplastin Time 23.8 sec (22.0-30.0); Prothrombin Time 10.4 sec (9.0-12.0)
--- NOTE | 2019-07-18 10:05 | XR ---
EXAMINATION TYPE: XR chest 1V portable DATE OF EXAM: 07/18/2019 HISTORY: Shortness of breath. COMPARISON: April 25, 2019 TECHNIQUE: Single view of the chest is submitted. FINDINGS: Demonstrated are scattered senescent parenchymal change. There is no evidence for focal infiltrate. The heart is stable. Focal eventration right hemidiaphragm. Hilar and mediastinal structures are within normal limits. Degenerative changes are seen of the dorsal spine. IMPRESSION: 1. Chronic changes without evidence for acute pulmonary disease.
[2019-07-18 10:18] LABS: Amorphous Sediment,Urine Occasional /hpf; Appearance,Urine Cloudy (Clear); Bacteria,Urine Occasional /hpf; Bilirubin,Urine Negative (Negative); Blood,Urine Small (Negative); Color,Urine Yellow; Glucose,Urine (UA) Negative (Negative); Ketones,Urine Negative (Negative); Leukocyte Esterase,Urine Large (Negative); Mucus,Urine Rare /hpf; Nitrite,Urine Negative (Negative); PH, Urine 5.5 (5.0-8.0); Protein,Urine 2+ (Negative); RBC,Urine 13 /hpf (0-5); Specific Gravity,Urine 1.016 (1.001-1.035); Squamous Epithelial Cell,Urine <1 /hpf (0-4); Urobilinogen,Urine <2.0 mg/dL (<2.0); WBC,Urine 70 /hpf (0-5)
--- NOTE | 2019-07-18 11:29 | CT ---
EXAMINATION TYPE: CT brain wo con DATE OF EXAM: 07/18/2019 COMPARISON: 06/11/2018 HISTORY: AMS CT DLP: 1158.[address] of the brain was performed. The ventricles, basal cisterns and sulci overlying the cerebral convexities demonstrate mild enlargem ent. There is no evidence for intracranial hemorrhage or sulcal effacement. There is decreased attenuation about the periventricular white matter and deep white matter of both c erebral hemispheres, compatible with chronic small vessel ischemia. Differential diagnosis does inclu de demyelination. No mass effects are seen.No midline shift. Osseous calvarium is intact. If symptoms persist consider MRI. IMPRESSION: 1. Age related atrophic and chronic small vessel ischemic change without acute intracranial process s een at this time.
--- NOTE | 2019-07-18 11:34 | CT ---
EXAMINATION TYPE: CT abdomen pelvis w con DATE OF EXAM: 07/18/2019 COMPARISON: 08/17/2018 HISTORY: Sepsis CT DLP: 1832 mGycm CONTRAST: CT scan of the abdomen and pelvis is performed without Oral Contrast and with IV Contrast, patient in jected with 80 mL of Isovue 300. FINDINGS: LUNG BASES-: No visible nodule. Focal consolidation left lower lobe may reflect pneumonia. Moderate f ixed hiatal hernia. LIVER/GB: The gallbladder is surgically absent. No space occupying hepatic lesion. Biliary tree is of normal caliber. PANCREAS: No inflammation. No distinct mass. SPLEEN: No splenic enlargement. No lesion seen. ADRENALS: No nodule. No thickening. KIDNEYS/BLADDER: No hydronephrosis. 1 cm nonobstructing calculus lower pole right kidney. No distinc t renal mass. Coffey balloon catheter is noted to reside within the urinary bladder. BOWEL: Left-sided ileostomy is noted. Distended loop of small bowel distal to the ileostomy measuring 2.6 cm. Remaining small bowel is of normal caliber as is the visualized large bowel. Moderate rectos igmoid constipation. No evidence for free air or abscess. GENITAL ORGANS: No gross abnormality. LYMPH NODES: No greater than 1cm abdominal or pelvic lymph nodes are appreciated. AORTA: No significant abnormality. OSSEOUS STRUCTURES: Pelvic structures limited by streak artifact from bilateral hip surgery. OTHER: No significant additional abnormality is seen. IMPRESSION: 1. Small left lower lobe infiltrate. Correlate for pneumonia. 2. Left-sided ileostomy with distended loop of small bowel. Remaining bowel is of normal caliber. Mod erate fecal stasis. 3. Right-sided nonobstructing nephrolithiasis. 4. Moderate fecal stasis.
[2019-07-18] MEDS: SODIUM CHLORIDE 0.9% 1,000 ML IV SCH ×2 (12:27→21:51)
[2019-07-18 13:04] LABS: Glucose,Whole Blood 241 mg/dL (75-99)
--- NOTE | 2019-07-18 14:18 | P.HPIM ---
History of Present Illness The patient is a 67-year-old lady, with multiple medical problems. The patient has a history of gastric bypass surgery many years ago. History of left DVT status post IVC filter as per documentation, He also has chronic wounds in her left lower extremity for which she has been receiving wound care off and on, however she has low back wound with wound VAC in place..The patient has had a long-standing history of anemia, dating back to at least 2013. Baseline hemoglobin has mostly been in the 8 range, since at least 2014. She has had periods with hemoglobin dropping into the 5-6 range. She had an EGD in 05/10 that was negative. She had unsuccessful attempts for colonoscopy. Currently hemoglobin is 9.2. This patient was sent from retirement for altered mental status and fever. In the emergency room she had a fever of 101.1. She was tachycardic, patient also has indwelling Salguero catheter, she has back ulcer which could be because of her infection. Infectious disease specialist with the patient and take the wound VAC off Patient is awake and alert, she was in the hospital she came from retirement however she does not know why she was sent to the hospital. She denies chest pain or dyspnea. No coughing. No abdominal pain. On admission patient was hypotensive with blood pressure dropped to 94/43, she was tachycardic and 105-106. Labs showing unremarkable CBC, BMP. Creatinine is elevated to 1.35, baseline 0.7. Sugar is 241, liver enzymes aren't elevated. Urinalysis suspicious for infection. Urine culture is pending. Emergency room patient was started on cefepime and vancomycin and normal saline at [address] of the brain: No acute process. EKG: Sinus tachycar swetha and was [address] T changes, QTC 395. Chest x-ray: No acute process. CT of the abdomen and pelvis with contrast small left lower lobe infiltrate for possible pneumonia, the field sided laryngostomy with distended loops of bowel, with moderate fecal stasis Review of Systems CONSTITUTIONAL: No fever, no malaise, no fatigue. HEENT: No recent visual problems or hearing problems. Denied any sore throat. CARDIOVASCULAR: No orthopnea, PND, no palpitations, no syncope. PULMONARY: No shortness of breath, no cough, no hemoptysis. GASTROINTESTINAL: No diarrhea, no nausea, no vomiting, no abdominal pain. Normoactive bowel sounds. NEUROLOGICAL: No headaches, no weakness, no numbness. HEMATOLOGICAL: Denies any bleeding or petechiae. GENITOURINARY: Denies any burning micturition, frequency, or urgency. MUSCULOSKELETAL/RHEUMATOLOGICAL: Denies any joint pain, swelling, or any muscle pain. ENDOCRINE: Denies any polyuria or polydipsia. Past Medical History Past Medical History: Atrial Fibrillation, Diabetes Mellitus, Deep Vein Thrombosis (DVT), Fibromyalgia, GERD/Reflux, GI Bleed, Hyperlipidemia, Hypertension, Pneumonia, Renal Disease, Skin Disorder, Sleep Apnea/CPAP/BIPAP, Supraventricular Tachycardia (SVT), Vascular Disorder Additional Past Medical History / Comment(s): Chronic blood loss -anemia, chronic stage III renal failure, morbid obesity, DVT lt lower leg w/ prev IVC filter in place, dermatitis, gastric ulcer w/ Clinton-en-Y gastric bypass, chronic lower back pain,hx severe sepsis w/ septic shock/septicemia w/ MRSA, hemorrhoids, cellulitis of LLE, dysphagia, falls, muscle weakness, bilat tinnitus, UTI. peripheral neuropathy (bilat hands/feet), migraines, eczema, sinus problems, lower GI bleed. SALGUERO, COLOSTOMY. DECUBITUS ULCER. 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 Source:: KNEE & Buttock-MRSA; Urine-VRE & ESBL Past Surgical History: Adenoidectomy, Bariatric Surgery, Bowel Resection, Cho lecystectomy, Joint Replacement, Tonsillectomy, Tubal Ligation Additional Past Surgical History / Comment(s): Colostomy 2018, Gastric bypass/Clinton-en-Y in 2003, Lizzy filter 2000, teeth extraction, colonoscopy, EGD, hemorrhoidectomy, panniculectomy, D&C, hystoscopy x 2, LT KNEE replaced 2005-MRSA infection-hardware removed/cemented then replaced again, ORIF L hip repair, total R hip REPLACEMENT, bilat heel spurs removed, bilat CTR, infusaport insertion - since removed. Past Anesthesia/Blood Transfusion Reactions: Blood Transfusion Reaction Additional Past Anesthesia/Blood Transfusion Reaction / Comment(s): Per chart unspecified reaction. Past Psychological History: Anxiety, Depression Smoking Status: Former smoker Past Alcohol Use History: None Reported Past Drug Use History: None Reported - Past Family History Father Family Medical History: Myocardial Infarction (HI) Additional Family Medical History / Comment(s): AT AGE 46-HI Mother Family Medical History: Diabetes Mellitus Additional Family Medical History / Comment(s): AT AGE 66 FROM COMPLICATIONS FROM DM Sister(s) Family Medical History: Diabetes Mellitus Brother(s) Family Medical History: Diabetes Mellitus Daughter(s) Family Medical History: Cancer Son(s) Family Medical History: No Reported History Medications and Allergies Home Medications Medication Instructions Recorded Confirmed Type RX: Atorvastatin [Lipitor] 40 mg PO HS 08/30/15 07/18/19 History RX: Sennosides [Senokot] 17.2 mg PO DAILY 05/22/17 07/18/19 History RX: Polyethylene Glycol 3350 17 gm PO DAILY 08/17/18 07/18/19 History [Miralax] RX: Morphine Sulfate ER [Ms Contin] 15 mg PO BID@0700,1900 10/16/18 07/18/19 History Ferrous Sulfate [Feosol] 325 mg PO DAILY@199904/11/19 07/18/19 History metFORMIN HCL [Glucophage] 500 mg PO BID 04/11/19 07/18/19 History DULoxetine HCL [Cymbalta] 20 mg PO BID 04/25/19 07/18/19 History Loratadine [Claritin] 10 mg PO DAILY 04/25/19 07/18/19 History Multivit-Min/FA/Lycopen/Lutein 1 tab PO DAILY@199904/25/19 07/18/19 History [Centrum Silver Tablet] Acetaminophen Tab [Tylenol Tab] 650 mg PO Q6H PRN 07/18/19 07/18/19 History Furosemide [Lasix] 20 mg PO DAILY 07/18/19 07/18/19 History Hydrocodone/Acetaminophen [[place] 1 tab PO Q6H PRN 07/18/19 07/18/19 History 10-325] INSULIN LISPRO (HumaLOG) [HumaLOG] See Protocol SQ BID@0500,1600 07/18/19 07/18/19 History Menthol/Zinc Oxide [Calmoseptine 1 applic TOPICAL TID 07/18/19 07/18/19 History Ointment] Methocarbamol [Robaxin] 500 mg PO QID 07/18/19 07/18/19 History Mupirocin 2% Oint [Bactroban 2% 1 applic TOPICAL BID 07/18/19 07/18/19 History Oint] Pantoprazole Sodium [Protonix] 40 mg PO DAILY 07/18/19 07/18/19 History Potassium Chloride ER [K-Dur 10] 10 meq PO DAILY 07/18/19 07/18/19 History RX: Lisinopril 40 mg PO DAILY 07/18/19 07/18/19 History Allergies Allergy/AdvReac Type Severity Reaction Status Date / Time adhesive tape Allergy Severe Rash/Hives Verified 07/18/19 10:13 cephalexin monohydrate Allergy Severe Rash/Hives Verified 07/18/19 10:13 [From [employer]] influenza virus vaccine, Allergy Severe Anaphylaxis Verified 07/18/19 10:13 specific [influenza virus vacc,specific] latex Allergy Severe Rash/Hives Verified 07/18/19 10:13 peanut Allergy Severe Anaphylaxis Verified 07/18/19 10:13 Penicillins Allergy Severe Swelling Verified 07/18/19 10:13 tetanus toxoid, adsorbed Allergy Intermediate Rash/Hives Verified 07/18/19 10:13 baclofen Allergy Unknown Verified 07/18/19 10:13 Influenza Virus Vaccines Allergy Anaphylaxis Verified 07/18/19 10:13 Physical Exam Vitals: Vital Signs Temp Pulse Resp BP Pulse Ox 07/18/19 12:50 105 H 18 98/45 99 07/18/19 12:26 105 H 18 106/54 99 07/18/19 11:45 105 H 18 94/43 99 07/18/19 11:32 94/43 07/18/19 11:30 106 H 20 99 07/18/19 11:22 99.4 F 07/18/19 10:30 112 H 21 133/63 96 07/18/19 10:00 124 H 19 125/72 95 07/18/19 09:30 126 H 23 147/69 93 L 07/18/19 09:00 134 H 22 154/63 96 07/18/19 08:43 101.1 F H 129 H 20 153/63 96 Intake and Output 07/17/19 07/18/19 07/18/19 22:59 06:59 14:59 Other: Weight 90.718 kg GENERAL: The patient is alert and oriented x3, not in any acute distress. Well d eveloped, well nourished. HEENT: Pupils are round and equally reacting to light. EOMI. No scleral icterus. No conjunctival pallor. Normocephalic, atraumatic. No pharyngeal erythema. No thyromegaly. CARDIOVASCULAR: S1 and S2 present. No murmurs, rubs, or gallops. -PULMONARY: Chest is clear to auscultation, no wheezing or crackles. Patient with indwelling Salguero catheter ABDOMEN: Soft, nontender, nondistended, normoactive bowel sounds. No palpable organomegaly. -MUSCULOSKELETAL: No joint swelling or deformity. Lower back pressure ulcer. Left AKA EXTREMITIES: No cyanosis, clubbing, or pedal edema. NEUROLOGICAL: Gross neurological examination did not reveal any focal deficits. SKIN: No rashes. No petechiae Results CBC & Chem 7: 07/18/19 09:14 07/18/19 09:14 Labs: Abnormal Lab Results - Last 24 Hours (Table) 07/18/19 07/18/19 07/18/19 Range/Units 09:14 09:14 09:40 RBC 3.07 L (3.80-5.40) m/uL Hgb 9.2 L (11.4-16.0) gm/dL Hct 29.3 L (34.0-46.0) % Lymphocytes # 0.4 L (1.0-4.8) k/uL Chloride 115 H (98-107) mmol/L Carbon Dioxide 13 L (22-30) mmol/L BUN 44 H (7-17) mg/dL Creatinine 1.35 H (0.52-1.04) mg/dL Glucose 249 H (74-99) mg/dL POC Glucose (mg/dL) (75-99) mg/dL Alkaline Phosphatase 176 H (38-126) U/L Albumin 2.8 L (3.5-5.0) g/dL Urine Appearance Cloudy H (Clear) Urine Protein 2+ H (Negative) Urine Blood Small H (Negative) Ur Leukocyte Esterase Large H (Negative) Urine RBC 13 H (0-5) /hpf Urine WBC 70 H (0-5) /hpf Urine WBC Clumps Moderate H (None) /hpf Amorphous Sediment Occasional H (None) /hpf Urine Bacteria Occasional H (None) /hpf Urine Mucus Rare H (None) /hpf 07/18/19 Range/Units 13:02 RBC (3.80-5.40) m/uL Hgb (11.4-16.0) gm/dL Hct (34.0-46.0) % Lymphocytes # (1.0-4.8) k/uL Chloride (98-107) mmol/L Carbon Dioxide (22-30) mmol/L BUN (7-17) mg/dL Creatinine (0.52-1.04) mg/dL Glucose (74-99) mg/dL POC Glucose (mg/dL) 241 H (75-99) mg/dL Alkaline Phosphatase (38-126) U/L Albumin (3.5-5.0) g/dL Urine Appearance (Clear) Urine Protein (Negative) Urine Blood (Negative) Ur Leukocyte Esterase (Negative) Urine RBC (0-5) /hpf Urine WBC (0-5) /hpf Urine WBC Clumps (None) /hpf Amorphous Sediment (None) /hpf Urine Bacteria (None) /hpf Urine Mucus (None) /hpf Assessment and Plan Assessment: -Severe sepsis/septic shock -Acute kidney injury -Possible Acute urinary tract infection, associated with Salguero catheter. Present on admission -Possible infected decubitus ulcer -Possible left lower lobe pneumonia -Left-sided ileostomy with distended small bowel loops, with moderate fecal stasis -Right sided nonobstructing kidney stone -Anemia, s/p capsule camera showing polypoid pathology in the distal ileum -history of Cellulitis of left lower extremity, from chronic wound infection, culture was growing MRSA, -Hypertension -A. fib, echo: EF is 50-55% -History of left DVT status post IVC filter as per documentation, patient is high-risk for for bleed to be on anticoagulation, the risks are more than benefits continue with same treatment and DVT prophylaxis Plan: This is a pleasant 68 old female who presents today to the ICU for possible septic shock and possible UTI, versus pressure ulcer. Continue with antibiotics as per ID team, currently is on aztreonam and vancomycin, follow-up culture results. Follow-up recommendation by critical care team. Continue with IV fluids. Consult nephrology team Labs and medication were reviewed.. Continue same treatment. Continue with symptomatic treatment. Resume home medication. Monitor lytes and vitals. DVT and GI prophylaxis. Further recommendations of the clinical course of the patient DVT prophylaxis: Subcutaneous heparin GI Prophylaxis: Pepcid Prognosis is guarded
[2019-07-18] MEDS: SODIUM HYPOCHLORITE 0.5% 480 ML BOT MISCELLANE SCH (15:57)
[2019-07-18] MEDS: AZTREONAM 2 GM in SODIUM CHLORIDE 0.9% 100 ML IVPB SCH (15:57)
[2019-07-18 16:48] LABS: Glucose,Whole Blood 195 mg/dL (75-99)
[2019-07-18] MEDS: traMADol 50 MG TAB PO PRN (16:49)
[2019-07-18] MEDS: INSULIN ASPART (NovoLOG) 100 UNIT/ML VIAL SQ SCH ×2 (17:02→21:51)
[2019-07-18 20:47] LABS: Glucose,Whole Blood 154 mg/dL (75-99)
[2019-07-18] MEDS: FERROUS SULFATE 325 MG TAB PO SCH (21:52)
[2019-07-18] MEDS: DULoxetine HCL 20 MG CAPSULE.DR PO SCH (21:52)
[2019-07-18] MEDS: HEPARIN SODIUM,PORCINE 5,000 UNIT/ML 1 ML VIAL SQ SCH (21:52)
[2019-07-18] MEDS: ATORVASTATIN 40 MG TAB PO SCH (21:52)
[2019-07-18] MEDS: ACETAMINOPHEN TAB 325 MG TAB PO PRN (21:52)
[2019-07-19] MEDS: AZTREONAM 2 GM in SODIUM CHLORIDE 0.9% 100 ML IVPB SCH ×2 (02:41→13:52)
[2019-07-19] MEDS: SODIUM CHLORIDE 0.9% 1,000 ML IV SCH ×2 (03:41→08:12)
[2019-07-19 06:01] LABS: Basophils % (A) 0 %; Eosinophils # (A) 0.2 k/uL (0-0.7); Eosinophils % (A) 3 %; HCT 25.7 % (34.0-46.0); HGB 8.6 gm/dL (11.4-16.0); Hypochromasia Moderate; Lymphocytes # (A) 0.9 k/uL (1.0-4.8); Lymphocytes % (A) 10 %; MCH 32.4 pg (25.0-35.0); MCHC 33.5 g/dL (31.0-37.0); MCV 96.6 fL (80.0-100.0); Mean Platelet Volume 6.9; Monocytes # (A) 0.4 k/uL (0-1.0); Monocytes % (A) 4 %; Neutrophils # (A) 7.1 k/uL (1.3-7.7); Neutrophils % (A) 81 %; Platelet Count 301 k/uL (150-450); RBC 2.66 m/uL (3.80-5.40); RDW 14.7 % (11.5-15.5); WBC 8.8 k/uL (3.8-10.6)
[2019-07-19 06:52] LABS: Calcium 8.7 mg/dL (8.4-10.2)
[2019-07-19 07:04] LABS: Glucose,Whole Blood 105 mg/dL (75-99)
[2019-07-19 07:09] LABS: Potassium 4.6 mmol/L (3.5-5.1)
[2019-07-19] MEDS: INSULIN ASPART (NovoLOG) 100 UNIT/ML VIAL SQ SCH ×4 (07:13→20:20)
[2019-07-19] MEDS: PANTOPRAZOLE 40 MG TABLET PO SCH (08:12)
[2019-07-19] MEDS: DULoxetine HCL 20 MG CAPSULE.DR PO SCH ×2 (08:12→20:24)
[2019-07-19] MEDS: HEPARIN SODIUM,PORCINE 5,000 UNIT/ML 1 ML VIAL SQ SCH ×2 (08:12→20:26)
[2019-07-19] MEDS: traMADol 50 MG TAB PO PRN ×3 (08:25→20:25)
--- NOTE | 2019-07-19 10:30 | CONS ---
CONSULTATION REASON FOR CONSULT: Renal failure. HISTORY OF PRESENT ILLNESS: Patient is a 68-year-old female with history of left lower extremity DVT, chronic wounds in the sacral area with wound VAC, who was admitted from [facility] with mental status changes. Patient was hypotensive on initial admission. Serum creatinine was 1.35. She has been maintained on IV fluids. Her mentation is currently improved and creatinine is down to 1.0. Patient has had good urine output. She has not had any fevers. Patient is maintained on empiric antibiotics for her chronic wounds and ulcers. PAST MEDICAL HISTORY: Chronic decub, atrial fibrillation, type 2 diabetes, history of DVT, GI bleed, hyperlipidemia, hypertension, pneumonia, obstructive sleep apnea, SVT, gastric ulcer, Clinton-en-Y gastric bypass surgery, chronic back pain, history of sepsis, UTI, migraines, eczema, history of colostomy and bowel resection. PAST SURGICAL HISTORY: Adenoidectomy, bariatric surgery, bowel resection, cholecystectomy, colostomy, tonsillectomy, tubal ligation, tooth extraction, colonoscopy, EGD, hemorrhoidectomy, D and C, hysteroscopy, left knee arthroplasty MRSA infection with removal of hardware, right hip arthroplasty. Past medical history also significant for anxiety and depression. SOCIAL HISTORY: Patient is a former smoker. No history of drug abuse or alcohol abuse. MEDICATIONS: Medications at home include Lipitor, Senokot, iron, Glucophage, Cymbalta, multivitamins, insulin, Robaxin, Protonix, potassium, lisinopril. ALLERGIES: Allergies include KEFLEX, LATEX, PEANUT, PENICILLIN, TETANUS TOXOID, BACLOFEN, INFLUENZA VACCINE. PHYSICAL EXAMINATION: On examination, patient is currently comfortable, awake, alert, oriented x3, not in any acute distress. Blood pressure was 150/71, heart rate 85 per minute. She is afebrile. EXAMINATION OF THE HEART: S1, S2. EXAMINATION OF THE LUNGS: Bilateral breath sounds are heard. ABDOMEN: Soft, nontender with colostomy noted. Examination of lower extremities shows left . No significant edema noted in the right lower extremity. LABS: Labs show sodium 146, potassium 4.6, chloride 124, CO2 is 15. The serum creatinine 1.08. Hemoglobin 8.6 g/dL. ASSESSMENT: 1. Acute kidney injury prerenal currently improved. 2. Altered mentation, most likely metabolic encephalopathy, now improved. 3. Non gap metabolic acidosis secondary to renal failure. Will start patient on IV bicarb. 4. Multiple decubitus ulcers with previous MRSA and VRE infections, maintained on empiric antibiotics. 5. Anemia with no active bleeding noted. Check iron studies. PLAN: Add IV bicarb, check iron profile, repeat labs in a.m. Avoid any nephrotoxic medications. Thank you for this consultation. We will continue to follow the patient with you during her hospitalization. FIONA / BARBARAN: [id number] /
--- NOTE | 2019-07-19 10:39 | P.PN ---
Subjective The patient is a 67-year-old lady, with multiple medical problems. The patient has a history of gastric bypass surgery many years ago. History of left DVT status post IVC filter as per documentation, He also has chronic wounds in her left lower extremity for which she has been receiving wound care off and on, however she has low back wound with wound VAC in place..The patient has had a long-standing history of anemia, dating back to at least 2013. Baseline hemoglobin has mostly been in the 8 range, since at least 2014. She has had periods with hemoglobin dropping into the 5-6 range. She had an EGD in 05/10 that was negative. She had unsuccessful attempts for colonoscopy. Currently hemoglobin is 9.2. This patient was [facility] for altered mental status and fever. In the emergency room she had a fever of 101.1. She was tachycardic, patient also has indwelling Coffey catheter, she has back ulcer which could be because of her infection. Infectious disease specialist with the patient and take the wound VAC off Patient is awake and alert, she was in the hospital she came from [facility] however she does not know why she was sent to the hospital. She denies chest pain or dyspnea. No coughing. No abdominal pain. On admission patient was hypotensive with blood pressure dropped to 94/43, she was tachycardic and 105-106. Labs showing unremarkable CBC, BMP. Creatinine is elevated to 1.35, baseline 0.7. Sugar is 241, liver enzymes aren't elevated. Urinalysis suspicious for infection. Urine culture is pending. Emergency room patient was started on cefepime and vancomycin and normal saline at [address] of the brain: No acute process. EKG: Sinus tachycardia and was [address] changes, QTC 395. Chest x-ray: No acute process. CT of the abdomen and pelvis with contrast small left lower lobe infiltrate for possible pneumonia, the field sided laryngostomy with distended loops of bowel, with moderate fecal stasis 07/19/2019 Patients in the ICU as select overflow. She is awake and alert, she knows she is in the hospital. No new specific complaints. Vital stable. Sodium went up to 146 with improvement in creatinine down to 1.0. Hemoglobin is 8.6. Normal fever. Urine culture still pending. Patient has low back the clitoris ulcers with no obvious surrounding cellulitis. Patient remains on a TRAM and IV vancomycin. She is also on normal saline which is lower down to 80 mL/h. review of system CONSTITUTIONAL: No fever, no malaise, no fatigue. HEENT: No recent visual problems or hearing problems. Denied any sore throat. CARDIOVASCULAR: No orthopnea, PND, no palpitations, no syncope. PULMONARY: No shortness of breath, no cough, no hemoptysis. GASTROINTESTINAL: No diarrhea, no nausea, no vomiting, no abdominal pain. Normoactive bowel sounds. NEUROLOGICAL: No headaches, no weakness, no numbness. HEMATOLOGICAL: Denies any bleeding or petechiae. GENITOURINARY: Denies any burning micturition, frequency, or urgency. MUSCULOSKELETAL/RHEUMATOLOGICAL: Denies any joint pain, swelling, or any muscle pain. ENDOCRINE: Denies any polyuria or polydipsia. Active Medications Generic Name Dose Route Start Last Admin Trade Name Freq PRN Reason Stop Dose Admin Acetaminophen 650 mg 07/18/19 13:28 07/18/19 21:52 Tylenol Tab PO 650 mg Q6H PRN Administration Pain Atorvastatin Calcium 40 mg 07/18/19 21:00 07/18/19 21:52 Lipitor PO 40 mg HS GUALBERTO Administration Duloxetine HCl 20 mg 07/18/19 21:00 07/19/19 08:12 Cymbalta PO 20 mg BID GUALBERTO Administration Ferrous Sulfate 325 mg 07/18/19 20:00 07/18/19 21:52 Feosol PO 325 mg DAILY@2000 GUALBERTO Administration Heparin Sodium (Porcine) 5,000 unit 07/18/19 21:00 07/19/19 08:12 Heparin SQ 5,000 unit Q12HR GUALBERTO Administration Vancomycin HCl 1,500 mg/ 250 mls @ 125 mls/hr 07/19/19 12:00 Sodium Chloride IVPB 07/19/19 14:59 Q24H GUALBERTO Aztreonam 2 gm/ Sodium 100 mls @ 100 mls/hr 07/18/19 14:00 07/19/19 02:41 Chloride IVPB 100 mls/hr Q12H GUALBERTO Administration Protocol Vancomycin HCl 1,500 mg/ 250 mls @ 125 mls/hr 07/20/19 04:00 Sodium Chloride IVPB Q16H [facility] Sodium Bicarbonate 100 ml/ 1,100 mls @ 80 mls/hr 07/19/19 10:00 Sodium Chloride IV .[id number] [facility] Insulin Aspart 0 unit 07/18/19 17:30 07/19/19 07:13 Novolog SQ Not Given ACHS [facility] Protocol Pantoprazole Sodium 40 mg 07/19/19 09:00 07/19/19 08:12 Protonix PO 40 mg DAILY GUALBERTO Administration Sodium Hypochlorite 1 ml 07/18/19 14:45 07/18/19 15:57 Dakin's 0.5% (Full Strength) MISCELLANE 1 ml DAILY GUALBERTO Administration Tramadol HCl 50 mg 07/18/19 16:33 07/19/19 08:25 Ultram PO 50 mg QID PRN Administration Pain/Discomfort Objective - Vital Signs Vital signs: Vital Signs Temp 97.9 F 07/19/19 08:00 Pulse 85 07/19/19 08:00 Resp 17 07/19/19 08:00 BP 150/71 07/19/19 08:00 Pulse Ox 98 07/19/19 08:00 Intake & Output 07/18/19 07/19/19 07/19/19 18:59 06:59 18:59 Intake Total 230 360 520 Output Total 300 550 560 Balance -70 -190 -40 Weight 85.7 kg 88.7 kg Intake: IV 230 360 520 Aztreonam 2 gm In Sodium 100 100 Chloride 0.9% 100 ml @ 100 mls/hr IVPB Q12H [facility] Rx#:[id number] Sodium Chloride 0.9% 1, 130 260 520 000 ml @ 130 mls/hr IV . Q7H42M [facility] Rx#:[id number] Output: Urine 100 550 310 Stool 200 250 Other: Voiding Method Indwelling Catheter Indwelling Catheter Indwelling Catheter - Exam GENERAL: The patient is alert and oriented x3, not in any acute distress. Well developed, well nourished. HEENT: Pupils are round and equally reacting to light. EOMI. No scleral icterus. No conjunctival pallor. Normocephalic, atraumatic. No pharyngeal erythema. No thyromegaly. CARDIOVASCULAR: S1 and S2 present. No murmurs, rubs, or gallops. PULMONARY: Chest is clear to auscultation, no wheezing or crackles. -ABDOMEN: Soft, nontender, nondistended, normoactive bowel sounds. No palpable organomegaly. Patient with indwelling Coffey catheter -MUSCULOSKELETAL: No joint swelling or deformity. Lower back pressure ulcer. Left AKA EXTREMITIES: No cyanosis, clubbing, or pedal edema. NEUROLOGICAL: Gross neurological examination did not reveal any focal deficits. SKIN: No rashes. No petechiae - Labs CBC & Chem 7: 07/19/19 05:45 07/19/19 05:45 Labs: Abnormal Lab Results - Last 24 Hours (Table) 07/18/19 07/18/19 07/18/19 Range/Units 13:02 16:47 20:45 RBC (3.80-5.40) m/uL Hgb (11.4-16.0) gm/dL Hct (34.0-46.0) % Lymphocytes # (1.0-4.8) k/uL Sodium (137-145) mmol/L Chloride (98-107) mmol/L Carbon Dioxide (22-30) mmol/L BUN (7-17) mg/dL Creatinine (0.52-1.04) mg/dL Glucose (74-99) mg/dL POC Glucose (mg/dL) 241 H 195 H 154 H (75-99) mg/dL 07/19/19 07/19/19 07/19/19 Range/Units 05:45 05:45 07:03 RBC 2.66 L (3.80-5.40) m/uL Hgb 8.6 L (11.4-16.0) gm/dL Hct 25.7 L (34.0-46.0) % Lymphocytes # 0.9 L (1.0-4.8) k/uL Sodium 146 H (137-145) mmol/L Chloride 124 H (98-107) mmol/L Carbon Dioxide 15 L (22-30) mmol/L BUN 35 H (7-17) mg/dL Creatinine 1.08 H (0.52-1.04) mg/dL Glucose 107 H (74-99) mg/dL POC Glucose (mg/dL) 105 H (75-99) mg/dL Microbiology - Last 24 Hours (Table) 07/18/19 09:40 Urine Culture - Preliminary Urine,Voided
--- NOTE | 2019-07-19 11:45 | P.CONS ---
History of Present Illness - Reason for Consult Consult date: 07/18/19 sepsis Requesting physician: Bossman E Sheet - Chief Complaint Fever x 1 day - History of Present Illness Patient is a 68-year female residential resident who has been brought into the ER at [facility] this morning for evaluation of possible sepsis, patient apparently did have a fever at the residential and she did have a mental status changes and unable provide any history to the ER physician on arrival to the ER, the patient did have a fever of 101.1 F, patient was tachycardic and initially not hypotensive subsequently to have low blood pressure of 94 systolic patient did receive multiple fluid boluses and has received a dose of vancomycin and Levaquin subsequently patient has been admitted to ICU infectious was consulted for further recommendation about antibiotic. Patient currently is awake alert she knows she is in the hospital he denies having any headache or URI symptoms denies having any chest pain or shortness of breath very minimal cough not back up any sputum denies any nausea no vomiting no abdominal pain she did have ileostomy with liquid stool but no worsening Salguero catheter has been placed in the ER and she did have a chronic nonhealing wound to the sacral area currently be treated with a wound VAC. In the ER the patient did have a chest x-ray report negative for any acute infiltrate CT of abdominal pelvis was done did not show any colitis or abscess urine has been positive. Patient did have multiple antibiotic allergies. Review of Systems positive point has been mentioned HPI rest of the systems are negative Past Medical History Past Medical History: Atrial Fibrillation, Diabetes Mellitus, Deep Vein Thrombosis (DVT), Fibromyalgia, GERD/Reflux, GI Bleed, Hyperlipidemia, Hypertension, Pneumonia, Renal Disease, Skin Disorder, Sleep Apnea/CPAP/BIPAP, Supraventricular Tachycardia (SVT), Vascular Disorder Additional Past Medical History / Comment(s): Chronic blood loss -anemia, chronic stage III renal failure, morbid obesity, DVT lt lower leg w/ prev IVC filter in place, dermatitis, gastric ulcer w/ [place]-en-Y gastric bypass, chronic lower back pain,hx severe sepsis w/ septic shock/septicemia w/ MRSA, hemorrhoids, cellulitis of LLE, dysphagia, falls, muscle weakness, bilat tinnitus, UTI. peripheral neuropathy (bilat hands/feet), migraines, eczema, sinus problems, lower GI bleed. SALGUERO, COLOSTOMY. DECUBITUS ULCER. 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 Past Anesthesia/Blood Transfusion Reactions: Blood Transfusion Reaction Additional Past Anesthesia/Blood Transfusion Reaction / Comm: Per chart unspecified reaction. Past Psychological History: Anxiety, Depression Smoking Status: Former smoker Past Alcohol Use History: None Reported Past Drug Use History: None Reported - Past Family History Father Family Medical History: Myocardial Infarction ([place]) Additional Family Medical History / Comment(s): AT AGE 46-[place] Mother Family Medical History: Diabetes Mellitus Additional Family Medical History / Comment(s): AT AGE 66 FROM COMPLICATI ONS FROM DM Sister(s) Family Medical History: Diabetes Mellitus Brother(s) Family Medical History: Diabetes Mellitus Daughter(s) Family Medical History: Cancer Son(s) Family Medical History: No Reported History Medications and Allergies Home Medications Medication Instructions Recorded Confirmed Type Atorvastatin [Lipitor] 40 mg PO HS 08/30/15 07/18/19 History Sennosides [Senokot] 17.2 mg PO DAILY 05/22/17 07/18/19 History Polyethylene Glycol 3350 [Miralax] 17 gm PO DAILY 08/17/18 07/18/19 History Morphine Sulfate ER [Ms Contin] 15 mg PO BID@0700,1900 10/16/18 07/18/19 History Ferrous Sulfate [Feosol] 325 mg PO DAILY@2000 04/11/19 07/18/19 History metFORMIN HCL [Glucophage] 500 mg PO BID 04/11/19 07/18/19 History DULoxetine HCL [Cymbalta] 20 mg PO BID 04/25/19 07/18/19 History Loratadine [Claritin] 10 mg PO DAILY 04/25/19 07/18/19 History Multivit-Min/FA/Lycopen/Lutein 1 tab PO DAILY@2000 04/25/19 07/18/19 History [Centrum Silver Tablet] Acetaminophen Tab [Tylenol Tab] 650 mg PO Q6H PRN 07/18/19 07/18/19 History Furosemide [Lasix] 20 mg PO DAILY 07/18/19 07/18/19 History Hydrocodone/Acetaminophen [Sullivan 1 tab PO Q6H PRN 07/18/19 07/18/19 History 10-325] INSULIN LISPRO (HumaLOG) [HumaLOG] See Protocol SQ BID@0500,1600 07/18/19 07/18/19 History Lisinopril 40 mg PO DAILY 07/18/19 07/18/19 History Menthol/Zinc Oxide [Calmoseptine 1 applic TOPICAL TID 07/18/19 07/18/19 History Ointment] Methocarbamol [Robaxin] 500 mg PO QID 07/18/19 07/18/19 History Mupirocin 2% Oint [Bactroban 2% 1 applic TOPICAL BID 07/18/19 07/18/19 History Oint] Pantoprazole Sodium [Protonix] 40 mg PO DAILY 07/18/19 07/18/19 History Potassium Chloride ER [K-Dur 10] 10 meq PO DAILY 07/18/19 07/18/19 History Allergies Allergy/AdvReac Type Severity Reaction Status Date / Time adhesive tape Allergy Severe Rash/Hives Verified 07/18/19 10:13 cephalexin monohydrate Allergy Severe Rash/Hives Verified 07/18/19 10:13 [From Keflex] influenza virus vaccine, Allergy Severe Anaphylaxis Verified 07/18/19 10:13 specific [influenza virus vacc,specific] latex Allergy Severe Rash/Hives Verified 07/18/19 10:13 peanut Allergy Severe Anaphylaxis Verified 07/18/19 10:13 Penicillins Allergy Severe Swelling Verified 07/18/19 10:13 tetanus toxoid, adsorbed Allergy Intermediate Rash/Hives Verified 07/18/19 10:13 baclofen Allergy Unknown Verified 07/18/19 10:13 Influenza Virus Vaccines Allergy Anaphylaxis Verified 07/18/19 10:13 Physical Exam Vitals: Vital Signs Temp Pulse Resp BP Pulse Ox 07/18/19 12:26 105 H 18 106/54 99 07/18/19 11:45 105 H 18 94/43 99 07/18/19 11:32 94/43 07/18/19 11:30 106 H 20 99 07/18/19 11:22 99.4 F 07/18/19 10:30 112 H 21 133/63 96 07/18/19 10:00 124 H 19 125/72 95 07/18/19 09:30 126 H 23 147/69 93 L 07/18/19 09:00 134 H 22 154/63 96 07/18/19 08:43 101.1 F H 129 H 20 153/63 96 Intake and Output 07/17/19 07/18/19 07/18/19 22:59 06:59 14:59 Other: Weight 90.718 kg GENERAL DESCRIPTION: Elderly female lying in bed, no distress. No tachypnea or accessory muscle of respiration use. HEENT: Shows Pallor , no scleral icterus. Oral mucous membrane is dry. No pharyngeal erythema or thrush NECK: Trachea central, no thyromegaly. LUNGS: Unlabored breathing. Decreased breath sound at the base. No wheeze or c rackle. HEART: S1, S2, regular rate and rhythm. No loud murmur ABDOMEN: Soft, no tenderness , guarding or rigidity, no organomegaly EXTREMITIES: No edema of feet. SKIN: No rash, no masses palpable. Sacral pressure ulcer with some foul- smelling drainage no sign of surrounding erythema NEUROLOGICAL: The patient is awake, alert, oriented x2, mood and affect normal. Results CBC & Chem 7: 07/19/19 05:45 07/19/19 05:45 Labs: Abnormal Lab Results - Last 24 Hours (Table) 07/18/19 07/18/19 07/18/19 Range/Units 09:14 09:14 09:40 RBC 3.07 L (3.80-5.40) m/uL Hgb 9.2 L (11.4-16.0) gm/dL Hct 29.3 L (34.0-46.0) % Lymphocytes # 0.4 L (1.0-4.8) k/uL Chloride 115 H (98-107) mmol/L Carbon Dioxide 13 L (22-30) mmol/L BUN 44 H (7-17) mg/dL Creatinine 1.35 H (0.52-1.04) mg/dL Glucose 249 H (74-99) mg/dL Alkaline Phosphatase 176 H (38-126) U/L Albumin 2.8 L (3.5-5.0) g/dL Urine Appearance Cloudy H (Clear) Urine Protein 2+ H (Negative) Urine Blood Small H (Negative) Ur Leukocyte Esterase Large H (Negative) Urine RBC 13 H (0-5) /hpf Urine WBC 70 H (0-5) /hpf Urine WBC Clumps Moderate H (None) /hpf Amorphous Sediment Occasional H (None) /hpf Urine Bacteria Occasional H (None) /hpf Urine Mucus Rare H (None) /hpf Assessment and Plan Assessment: 1-patient admitted to hospital with sepsis in this patient who did have a fever tachycardia source possible urine pneumonia not entirely excluded the patient had did have a chronic nonhealing wound to the sacral area currently be treated with a wound VAC and there was some foul smell however could related to the wound VAC drainage rather than infection as no significant deformity changes were noticed 2-patient with multiple antibiotic allergies that would limit the number of antibiotics safe to use (1) Sepsis Current Visit: Yes Status: Acute Code(s): A41.9 - SEPSIS, UNSPECIFIED ORGANISM SNOMED Code(s): 09953024 (2) Decubital ulcer Current Visit: No Status: Acute Code(s): L89.90 - PRESSURE ULCER OF UNSPECIFIED SITE, UNSPECIFIED STAGE SNOMED Code(s): 865316605 (3) Pneumonia Current Visit: No Status: Acute Code(s): J18.9 - PNEUMONIA, UNSPECIFIED ORGANISM SNOMED Code(s): 813277868 (4) Urinary tract infection Current Visit: No Status: Acute Code(s): N39.0 - URINARY TRACT INFECTION, SITE NOT SPECIFIED SNOMED Code(s): 57111688 Plan: 1-vancomycin pharmacy to dose target trough of 15 while watching his kidney function and vancomycin trough closely 2-we will add Azactam 2 g every 12 to cover for the gram-negative 3-local wound care to the sacral wound have with the Dakin's solution soak dressing daily and keep the area of the pressure 4-gentle IV fluid We will follow on clinical condition and cultures to further adjust medication if needed Thank you for this consultation will follow this patient along with you Time with Patient: Greater than 30
[2019-07-19 11:48] VITALS: BMI 32.5
[2019-07-19] MEDS ORDERED: VANCOMYCIN 1,500 MG in SODIUM CHLORIDE 0.9% 250 ML IVPB SCH (12:00)
[2019-07-19 13:40] LABS: Glucose,Whole Blood 114 mg/dL (75-99)
[2019-07-19] MEDS: SODIUM CHLORIDE 0.45% 1,000 ML with SODIUM BICARB (1 MEQ/ML) 100 ML IV SCH ×2 (13:47)
[2019-07-19 14:42] LABS: Hemoglobin A1C 6.6 % (4.0-6.0)
[2019-07-19 16:13] LABS: % Iron Saturation 5.42 (12.00-45.00)
[2019-07-19] MEDS: SODIUM HYPOCHLORITE 0.5% 480 ML BOT MISCELLANE SCH (16:44)
[2019-07-19] MEDS: ACETAMINOPHEN TAB 325 MG TAB PO PRN (17:53)
[2019-07-19 17:57] LABS: Glucose,Whole Blood 186 mg/dL (75-99)
[2019-07-19 20:21] LABS: Glucose,Whole Blood 127 mg/dL (75-99)
[2019-07-19] MEDS: FERROUS SULFATE 325 MG TAB PO SCH (20:24)
[2019-07-19] MEDS: ATORVASTATIN 40 MG TAB PO SCH (20:25)
--- NOTE | 2019-07-19 21:14 | PN ---
PROGRESS NOTE DATE OF SERVICE: 07/19/2019 REASON FOR FOLLOWUP: Sepsis, UTI and a sacral wound. INTERVAL HISTORY: The patient is currently afebrile. The patient is breathing comfortably. The patient denies significant chest pain or shortness of breath. Very minimal cough. No nausea or vomiting. No abdominal pain and no diarrhea. PHYSICAL EXAMINATION: Blood pressure 160/79 with a pulse of 85, temperature 98.5. She is 92% on 3 L nasal cannula. General description is an elderly female lying in bed in no distress. RESPIRATORY SYSTEM: Unlabored breathing with decreased breath sounds at the base. No wheeze. HEART: S1, S2. Regular rate and rhythm. ABDOMEN: Soft. No tenderness. Sacral wound shows improvement compared to yesterday. Still does not have significant surrounding swelling, redness or any drainage. LABS: Hemoglobin 8.6, white count 8.8. BUN of 35, creatinine 1.08. Urine is showing pseudomonas. Blood culture has been negative so far. DIAGNOSTIC IMPRESSION AND PLAN: 1. Patient admitted to hospital with sepsis. Source is likely urinary. Pneumonia less likely but not entirely excluded. Patient does have MULTIPLE ANTIBIOTIC ALLERGIES. Patient is currently covered with Azactam and vancomycin; to continue while waiting for the culture to finalize. 2. Sacral wound. To continue with the Dakin solution-soaked dressing for another day and hopefully switch back to wound V.A.C. tomorrow. MMODL / IJN: [id number] /
[2019-07-20] MEDS: AZTREONAM 2 GM in SODIUM CHLORIDE 0.9% 100 ML IVPB SCH ×2 (01:39→16:08)
[2019-07-20] MEDS: SODIUM CHLORIDE 0.45% 1,000 ML with SODIUM BICARB (1 MEQ/ML) 100 ML IV SCH ×4 (03:43→16:08)
[2019-07-20] MEDS: ACETAMINOPHEN TAB 325 MG TAB PO PRN ×2 (03:46→15:55)
[2019-07-20] MEDS ORDERED: VANCOMYCIN 1,500 MG in SODIUM CHLORIDE 0.9% 250 ML IVPB SCH (04:00)
[2019-07-20 05:41] LABS: Basophils % (A) 0 %; Eosinophils # (A) 0.3 k/uL (0-0.7); Eosinophils % (A) 4 %; HGB 8.2 gm/dL (11.4-16.0); Hypochromasia Moderate; Lymphocytes # (A) 1.5 k/uL (1.0-4.8); Lymphocytes % (A) 21 %; MCH 29.6 pg (25.0-35.0); MCHC 30.5 g/dL (31.0-37.0); MCV 97.2 fL (80.0-100.0); Monocytes # (A) 0.4 k/uL (0-1.0); Monocytes % (A) 5 %; Neutrophils # (A) 4.9 k/uL (1.3-7.7); Neutrophils % (A) 66 %; Platelet Count 337 k/uL (150-450); RBC 2.78 m/uL (3.80-5.40); WBC 7.4 k/uL (3.8-10.6)
[2019-07-20 05:52] LABS: Calcium 8.6 mg/dL (8.4-10.2); Potassium 4.2 mmol/L (3.5-5.1)
[2019-07-20 06:46] LABS: Glucose,Whole Blood 149 mg/dL (75-99)
[2019-07-20] MEDS: INSULIN ASPART (NovoLOG) 100 UNIT/ML VIAL SQ SCH ×2 (06:49→12:30)
[2019-07-20] MEDS ORDERED: LISINOPRIL 20 MG TAB PO SCH (09:00)
[2019-07-20] MEDS ORDERED: traMADol 50 MG TAB PO PRN (09:27)
[2019-07-20] MEDS: MORPHINE SULFATE 4 MG/ML SYRINGE IVP STA ×2 (09:35→16:18)
[2019-07-20] MEDS: HEPARIN SODIUM,PORCINE 5,000 UNIT/ML 1 ML VIAL SQ SCH (09:36)
[2019-07-20] MEDS: PANTOPRAZOLE 40 MG TABLET PO SCH (09:36)
[2019-07-20] MEDS: DULoxetine HCL 20 MG CAPSULE.DR PO SCH (09:37)
[2019-07-20] MEDS: SODIUM HYPOCHLORITE 0.5% 480 ML BOT MISCELLANE SCH (09:41)
--- NOTE | 2019-07-20 10:11 | PN ---
PROGRESS NOTE Patient is seen for followup for acute kidney injury and metabolic acidosis. She was admitted with altered mentation. Her mentation has improved. She continues to have output from her colostomy. Patient is maintained on bicarb drip. Her renal function is improved with creatinine down to 1.04 from 1.35 on initial admission. Patient has good urine output. PHYSICAL EXAMINATION: On examination today, she is comfortable, awake, alert, and oriented, not in any acute distress. Blood pressure is 155/71, heart rate of 70 per minute, she is afebrile. Examination of the heart S1, S2. Examination of the lungs, bilateral breath sounds are heard. Decreased breath sounds at the bases. Abdomen is soft, nontender. Examination of the lower extremities shows left AKA. No significant edema noted. ACCOUNT ADMINISTRATOR exam grossly intact. Patient moving all 4 extremities. LABS: Show sodium 140, potassium 4.2, chloride 115, CO2 is 17, BUN 24, creatinine 1.04, hemoglobin 8.2 g/dL. ASSESSMENT: 1. Acute kidney injury, prerenal currently improving. 2. Urinary tract infection with urine culture growing Pseudomonas and Proteus maintained on an antibiotics. Patient got a dose of vancomycin and she is on aztreonam. 3. Hypertension controlled. Patient is maintained on JENARO inhibitors which we can continue. 4. Non-gap metabolic acidosis secondary to gastrointestinal fluid loss, maintained on IV bicarb. I will add oral sodium bicarb so we can discontinue the IV bicarb tomorrow. 5. Anemia with significant iron deficiency. Iron saturation at 5%. Will start IV iron. PLAN: Add oral sodium bicarb. We can likely discontinue the IV bicarb tomorrow. Discontinue vancomycin and repeat labs in a.m. Add Norvasc for blood pressure. MMODL / IJN: [id number] /
[2019-07-20] MEDS ORDERED: amLODIPine 5 MG TAB PO STA (10:14)
[2019-07-20] MEDS ORDERED: amLODIPine 5 MG TAB PO SCH (10:15)
[2019-07-20 12:18] LABS: Glucose,Whole Blood 134 mg/dL (75-99)
[2019-07-20] MEDS ORDERED: hydrALAZINE HCL 25 MG TAB PO PRN (15:44)
--- NOTE | 2019-07-20 16:19 | P.DS ---
Providers Date of admission: 07/18/19 11:36 Attending physician: Bossman Capellan MD Consults: 07/18/19 09:07 Consult Physician Routine Consulting Provider: Merary Kendrick Consult Reason/Comments: sepsis Do you want consulting provider notified?: Yes 07/18/19 13:22 Consult Physician Urgent Consulting Provider: Margie Ulloa Consult Reason/Comments: yusuf and got contrast Do you want consulting provider notified?: Yes [facility] Course: diagnosis: -Severe sepsis/septic shock -Acute kidney injury -Possible Acute urinary tract infection, associated with Coffey catheter. Present on admission -Possible infected decubitus ulcer -Possible left lower lobe pneumonia -Left-sided ileostomy with distended small bowel loops, with moderate fecal stasis -Right sided nonobstructing kidney stone -Anemia, s/p capsule camera showing polypoid pathology in the distal ileum -history of Cellulitis of left lower extremity, from chronic wound infection, culture was growing MRSA, -Hypertension -A. fib, echo: EF is 50-55% -History of left DVT status post IVC filter as per documentation, patient is high-risk for for bleed to be on anticoagulation, the risks are more than b enefits continue with same treatment and DVT prophylaxis Hospital course: The patient is a 67-year-old lady, with multiple medical problems. The patient has a history of gastric bypass surgery many years ago. History of left DVT status post IVC filter as per documentation, He also has chronic wounds in her left lower extremity for which she has been receiving wound care off and on, however she has low back wound with wound VAC in place..The patient has had a long-standing history of anemia, dating back to at least 2013. Baseline hemoglobin has mostly been in the 8 range, since at least 2014. She has had periods with hemoglobin dropping into the 5-6 range. She had an EGD in 05/10 that was negative. She had unsuccessful attempts for colonoscopy. Currently hemoglobin is 9.2. This patient was sent from jail for altered mental status and fever. In the emergency room she had a fever of 101.1. She was tachycardic, patient also has indwelling Coffey catheter, she has back ulcer which could be the cause of her infection. Infectious disease specialist evaluated pt . Patient was treated twice normal saline IV hydration, aztreonam and IV vancomycin and patient showed interval improvement. She's been afebrile for more than 48 hours. Her urine culture came back positive for Proteus mirabilis and pseudomonas aeruginosa. Her labs shows no leukocytosis. And her symptoms are controlled. She still complaining from pain at the pressure site which could be controlled with pain medication. She is originally on MS Contin and Rio 10- 325 mg which he continue with. Seed Laboratory Technician evaluated the patient patient has acidosis and she would be discharged on sodium bicarb tablets for 2 more weeks Patient was cleared for discharge by ID and nephrology team Patient will be discharged on 7 more days of aztreonam and she can follow up with Dr. Kendrick for further recommendation after that. Also will be discharged on 2 more weeks of sodium bicarb tablets as per Dr. Ulloa Problems and management plan were discussed with the patient and he verbalized understanding and acceptance Patient was found stable and can be discharged home however he needs follow-up as an outpatient. Patient was instructed to follow up with PCP within one week and patient agrees Gen: patient is a AAOx3, no distress CVS: S1-S2, RRR, no murmur Lungs: B/L CTA, no wheezing Abdomen: soft, no distention, no tenderness, positive bowel sounds. Left-sided ileostomy Extremity: no leg edema or induration Musculoskeletal: Mid back ulcer with no surrounding cellulitis Time spent more than 35 minutes Patient Condition at Discharge: Fair Plan - Discharge Summary New Discharge Prescriptions: New hydrALAZINE HCL [Apresoline] 25 mg PO BID PRN #30 tab PRN Reason: Blood Pressure - High amLODIPine [Norvasc] 10 mg PO DAILY #30 tab Sodium Bicarbonate Tab 650 mg PO BID 14 Days #28 tab Aztreonam [Azactam] 2 gm IVPB Q12H 7 Days #14 vial Continue Atorvastatin [Lipitor] 40 mg PO HS Morphine Sulfate ER [Ms Contin] 15 mg PO BID@0700,1900 metFORMIN HCL [Glucophage] 500 mg PO BID Ferrous Sulfate [Iron (65 MG Elemental)] 325 mg PO DAILY@1999 DULoxetine HCL [Cymbalta] 20 mg PO BID Multivit-Min/FA/Lycopen/Lutein [Centrum Silver Tablet] 1 tab PO DAILY@1999 Loratadine [Claritin] 10 mg PO DAILY Acetaminophen Tab [Tylenol] 650 mg PO Q6H PRN PRN Reason: Pain Methocarbamol [Robaxin] 500 mg PO QID Menthol/Zinc Oxide [Calmoseptine Ointment] 1 applic TOPICAL TID INSULIN LISPRO (HumaLOG) [humaLOG] See Protocol SQ BID@0500,1600 Mupirocin 2% Oint [Bactroban 2% Oint] 1 applic TOPICAL BID Pantoprazole Sodium [Protonix] 40 mg PO DAILY Potassium Chloride ER [K-Dur 10] 10 meq PO DAILY Lisinopril 40 mg PO DAILY Furosemide [Lasix] 20 mg PO DAILY Hydrocodone/Acetaminophen [Rio 10-325] 1 tab PO Q6H PRN #8 tab PRN Reason: Pain Changed Polyethylene Glycol 3350 [Miralax] 17 gm PO DAILY PRN #0 PRN Reason: Constipation Sennosides [Senokot] 17.2 mg PO DAILY PRN #0 PRN Reason: Constipation Discharge Medication List Atorvastatin [Lipitor] 40 mg PO HS 08/30/15 [History] Morphine Sulfate ER [Ms Contin] 15 mg PO BID@0700,1900 10/16/18 [History] Ferrous Sulfate [Iron (65 MG Elemental)] 325 mg PO DAILY@199904/11/19 [History] metFORMIN HCL [Glucophage] 500 mg PO BID 04/11/19 [History] DULoxetine HCL [Cymbalta] 20 mg PO BID 04/25/19 [History] Loratadine [Claritin] 10 mg PO DAILY 04/25/19 [History] Multivit-Min/FA/Lycopen/Lutein [Centrum Silver Tablet] 1 tab PO DAILY@199904/25/19 [History] Acetaminophen Tab [Tylenol] 650 mg PO Q6H PRN 07/18/19 [History] Furosemide [Lasix] 20 mg PO DAILY 07/18/19 [History] INSULIN LISPRO (HumaLOG) [humaLOG] See Protocol SQ BID@0500,1600 07/18/19 [History] Lisinopril 40 mg PO DAILY 07/18/19 [History] Menthol/Zinc Oxide [Calmoseptine Ointment] 1 applic TOPICAL TID 07/18/19 [History] Methocarbamol [Robaxin] 500 mg PO QID 07/18/19 [History] Mupirocin 2% Oint [Bactroban 2% Oint] 1 applic TOPICAL BID 07/18/19 [History] Pantoprazole Sodium [Protonix] 40 mg PO DAILY 07/18/19 [History] Potassium Chloride ER [K-Dur 10] 10 meq PO DAILY 07/18/19 [History] Aztreonam [Azactam] 2 gm IVPB Q12H 7 Days #14 vial 07/20/19 [Rx] Hydrocodone/Acetaminophen [Rio 10-325] 1 tab PO Q6H PRN #8 tab 07/20/19 [Rx] Polyethylene Glycol 3350 [Miralax] 17 gm PO DAILY PRN #0 07/20/19 [Rx] Sennosides [Senokot] 17.2 mg PO DAILY PRN #0 07/20/19 [Rx] Sodium Bicarbonate Tab 650 mg PO BID 14 Days #28 tab 07/20/19 [Rx] amLODIPine [Norvasc] 10 mg PO DAILY #30 tab 07/20/19 [Rx] hydrALAZINE HCL [Apresoline] 25 mg PO BID PRN #30 tab 07/20/19 [Rx] Follow up Appointment(s)/Referral(s): Carlo Frederick MD [Primary Care Provider] - 1-2 days
[2019-07-20] MEDS ORDERED: MORPHINE SULFATE 4 MG/ML SYRINGE IVP STA (16:33)
[2019-07-20] MEDS ORDERED: HYDROcodone/APAP 10-325MG 1 EACH TAB PO PRN (16:36)
[2019-07-20 16:44] VITALS: BP 161/83; PULSE 77; RESP 16; TEMP 98.5
--- NOTE | 2019-07-20 16:50 | PN ---
PROGRESS NOTE DATE OF SERVICE: 07/20/2019 REASON FOR FOLLOWUP: Fever, likely urinary tract infection. INTERVAL HISTORY: The patient is currently afebrile. The patient has been breathing comfortably. The patient denies having any chest pain. No shortness of breath or cough. No abdominal pain or any diarrhea. PHYSICAL EXAMINATION: Blood pressure is 172/97 with a pulse of 88, temperature 98. She is 94% on 3 L nasal cannula. General description is an elderly female lying in bed in no distress. RESPIRATORY SYSTEM: Unlabored breathing. Clear to auscultation anteriorly. HEART: S1, S2. Regular rate and rhythm. ABDOMEN: Soft. No tenderness. LABS: Hemoglobin 8.2, white count 7.4. Creatinine has improved to 1.04. Urine has been finalized with Proteus mirabilis and Pseudomonas aeruginosa. DIAGNOSTIC IMPRESSION AND PLAN: 1. Patient admitted to hospital with sepsis. Source is likely urinary, with the urine showing a pseudomonas and Proteus mirabilis in the patient who has MULTIPLE ANTIBIOTIC ALLERGIES. In view of improvement in her kidney function, Azactam dose to be adjusted up to every 8 hours, which she will continue for another week through a midline to finish her course of therapy. 2. Patient with a sacral pressure ulcer. Local care with Dakin's solution to transition to wound V.A.C. on discharge back to the senior care. MMODL / IJN: [id number] /
[2019-07-20] MEDS ORDERED: MORPHINE SULFATE ER 15 MG TABLET PO SCH (19:00)
[2019-07-20] MEDS ORDERED: SODIUM BICARBONATE TAB 650 MG TAB PO SCH (21:00)
[2019-07-21] MEDS ORDERED: AZTREONAM 2 GM in SODIUM CHLORIDE 0.9% 100 ML IVPB SCH ×2
[2019-07-21] MEDS ORDERED: amLODIPine 10 MG TAB PO SCH (09:00)
[2019-07-21] MEDS ORDERED: VANCOMYCIN TROUGH DUE 1 EACH MISC MISCELLANE ONE (11:00)
== END 2019-07-20 17:20 | DRG 698 ==
LOC: EC 08:37 → 2SICU 11:36
PROVIDERS: ADMIT Internal Medicine; ATTEND Internal Medicine
PROC: 05HD33Z Insertion of Infusion Device into Right Cephalic Vein, Percutaneous Approach (ICD-10-PCS; principal; 2019-07-20 17:35)
DX: T83.511A Infection and inflammatory reaction due to indwelling urethral catheter, initial encounter (principal); L89.154 Pressure ulcer of sacral region, stage 4; A41.52 Sepsis due to Pseudomonas; R65.21 Severe sepsis with septic shock; A41.59 Other Gram-negative sepsis; G93.41 Metabolic encephalopathy; J18.9 Pneumonia, unspecified organism; E87.2 Acidosis; N17.9 Acute kidney failure, unspecified; N39.0 Urinary tract infection, site not specified; E11.22 Type 2 diabetes mellitus with diabetic chronic kidney disease; N18.3 Chronic kidney disease, stage 3 (moderate); D50.9 Iron deficiency anemia, unspecified; E78.5 Hyperlipidemia, unspecified; F32.9 Major depressive disorder, single episode, unspecified; F41.9 Anxiety disorder, unspecified; I48.91 Unspecified atrial fibrillation; M79.7 Fibromyalgia; N20.0 Calculus of kidney; E66.01 Morbid (severe) obesity due to excess calories; G43.909 Migraine, unspecified, not intractable, without status migrainosus; G47.33 Obstructive sleep apnea (adult) (pediatric); G89.29 Other chronic pain; H93.13 Tinnitus, bilateral; K21.9 Gastro-esophageal reflux disease without esophagitis; K64.9 Unspecified hemorrhoids; M54.5 Low back pain; Y84.6 Urinary catheterization as the cause of abnormal reaction of the patient, or of later complication, without mention of misadventure at the time of the procedure; E11.42 Type 2 diabetes mellitus with diabetic polyneuropathy; I12.9 Hypertensive chronic kidney disease with stage 1 through stage 4 chronic kidney disease, or unspecified chronic kidney disease; K59.8 Other specified functional intestinal disorders; L30.9 Dermatitis, unspecified; Z79.899 Other long term (current) drug therapy; Z79.4 Long term (current) use of insulin; Z88.0 Allergy status to penicillin; Z88.7 Allergy status to serum and vaccine; Z88.1 Allergy status to other antibiotic agents; Z91.040 Latex allergy status; Z91.010 Allergy to peanuts; Z86.14 Personal history of Methicillin resistant Staphylococcus aureus infection; Z86.718 Personal history of other venous thrombosis and embolism; Z87.11 Personal history of peptic ulcer disease; Z87.891 Personal history of nicotine dependence; Z93.3 Colostomy status; Z95.828 Presence of other vascular implants and grafts; Z96.641 Presence of right artificial hip joint; Z96.652 Presence of left artificial knee joint; Z98.84 Bariatric surgery status; Z68.33 Body mass index [BMI] 33.0-33.9, adult; Z90.49 Acquired absence of other specified parts of digestive tract; Z98.51 Tubal ligation status; Z98.42 Cataract extraction status, left eye; Z98.41 Cataract extraction status, right eye; Z96.1 Presence of intraocular lens; Z87.440 Personal history of urinary (tract) infections; Z82.49 Family history of ischemic heart disease and other diseases of the circulatory system; Z83.3 Family history of diabetes mellitus; Z80.9 Family history of malignant neoplasm, unspecified
CPT/HCPCS: 36410; 36415; 70450; 71045; 74177; 76937; 80048; 80053; 81001; 83036; 83540; 83550; 83605; 84484; 85025; 85610; 85730; 87040; 87077; 87086; 87186; 87324; 87502; 96365; 96366; 96367; 99291

== ENCOUNTER 2019-08-24 14:38 | Inpatient (IN) | payer MEDICARE, OTHER ==
--- NOTE | 2019-08-24 15:12 | ED ---
Fever HPI - General Chief Complaint: Fever Stated Complaint: Sepsis Time Seen by Provider: 08/24/19 15:00 Source: patient, EMS, RN notes reviewed, old records reviewed Mode of arrival: EMS Limitations: no limitations - History of Present Illness Initial Comments: Is a 68-year-old female history of multiple medical problems including a left halfx-dbu-vuhb amputation wound VAC in the right lower extremity who does have a chronic indwelling Salguero catheter she does have a history of metabolic encephalopathy chronic DVTs colostomy morbid obesity and multiple other medical problems was [facility] because of fever decreased responsiveness. She was found to be also hypotensive. 2 cm tachycardic. Is a poor historian. MD Complaint: fever, malaise - Related Data Home Medications Medication Instructions Recorded Confirmed Atorvastatin [Lipitor] 40 mg PO HS 08/30/15 07/18/19 Ferrous Sulfate [Iron (65 MG 325 mg PO DAILY@199904/11/19 07/18/19 Elemental)] metFORMIN HCL [Glucophage] 500 mg PO BID 04/11/19 07/18/19 DULoxetine HCL [Cymbalta] 20 mg PO BID 04/25/19 07/18/19 Loratadine [Claritin] 10 mg PO DAILY 04/25/19 07/18/19 Multivit-Min/FA/Lycopen/Lutein 1 tab PO DAILY@199904/25/19 07/18/19 [Centrum Silver Tablet] Acetaminophen Tab [Tylenol] 650 mg PO Q6H PRN 07/18/19 07/18/19 Furosemide [Lasix] 20 mg PO DAILY 07/18/19 07/18/19 INSULIN LISPRO (HumaLOG) [humaLOG] See Protocol SQ BID@0500,1600 07/18/19 07/18/19 Lisinopril 40 mg PO DAILY 07/18/19 07/18/19 Menthol/Zinc Oxide [Calmoseptine 1 applic TOPICAL TID 07/18/19 07/18/19 Ointment] Methocarbamol [Robaxin] 500 mg PO QID 07/18/19 07/18/19 Mupirocin 2% Oint [Bactroban 2% 1 applic TOPICAL BID 07/18/19 07/18/19 Oint] Pantoprazole Sodium [Protonix] 40 mg PO DAILY 12/25/19 12/25/19 Potassium Chloride ER [K-Dur 10] 10 meq PO DAILY 07/18/19 07/18/19 Previous Rx's Medication Instructions Recorded Aztreonam [Azactam] 2 gm IVPB Q12H 7 Days #14 vial 07/20/19 Hydrocodone/Acetaminophen [[place] 1 tab PO Q6H PRN #8 tab 07/20/19 10-325] Morphine Sulfate ER [Ms Contin] 15 mg PO BID@0700,1900 #6 tab 07/20/19 Polyethylene Glycol 3350 [Miralax] 17 gm PO DAILY PRN #0 07/20/19 Sennosides [Senokot] 17.2 mg PO DAILY PRN #0 07/20/19 Sodium Bicarbonate Tab 650 mg PO BID 14 Days #28 tab 07/20/19 amLODIPine [Norvasc] 10 mg PO DAILY #30 tab 07/20/19 hydrALAZINE HCL [Apresoline] 25 mg PO BID PRN #30 tab 07/20/19 Allergies Allergy/AdvReac Type Severity Reaction Status Date / Time adhesive tape Allergy Severe Rash/Hives Verified 07/18/19 10:13 cephalexin monohydrate Allergy Severe Rash/Hives Verified 07/18/19 10:13 [From Keflex] influenza virus vaccine, Allergy Severe Anaphylaxis Verified 07/18/19 10:13 specific [influenza virus vacc,specific] latex Allergy Severe Rash/Hives Verified 07/18/19 10:13 peanut Allergy Severe Anaphylaxis Verified 07/18/19 10:13 Penicillins Allergy Severe Swelling Verified 07/18/19 10:13 tetanus toxoid, adsorbed Allergy Intermediate Rash/Hives Verified 07/18/19 10:13 baclofen Allergy Unknown Verified 07/18/19 10:13 Influenza Virus Vaccines Allergy Anaphylaxis Verified 07/18/19 10:13 Review of Systems ROS Statement: Those systems with pertinent positive or pertinent negative responses have been documented in the HPI. ROS Other: All systems not noted in ROS Statement are negative. Limitations: ROS unobtainable due to patients medical condition Past Medical History Past Medical History: Atrial Fibrillation, Diabetes Mellitus, Deep Vein Thrombosis (DVT), Fibromyalgia, GERD/Reflux, GI Bleed, Hyperlipidemia, Hypertension, Pneumonia, Renal Disease, Skin Disorder, Sleep Apnea/CPAP/BIPAP, Supraventricular Tachycardia (SVT), Vascular Disorder Additional Past Medical History / Comment(s): Chronic blood loss -anemia, chronic stage III renal failure, morbid obesity, DVT lt lower leg w/ prev IVC filter in place, dermatitis, gastric ulcer w/ Clinton-en-Y gastric bypass, chronic lower back pain,hx severe sepsis w/ septic shock/septicemia w/ MRSA, hemorrhoids, cellulitis of LLE, dysphagia, falls, muscle weakness, bilat tinnitus, UTI. peripheral neuropathy (bilat hands/feet), migraines, eczema, sinus problems, lower GI bleed. SALGUERO, COLOSTOMY. DECUBITUS ULCER. 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 Source:: KNEE & Buttock-MRSA; Urine-VRE & ESBL Past Surgical History: Adenoidectomy, Bariatric Surgery, Bowel Resection, Cholecystectomy, Joint Replacement, Tonsillectomy, Tubal Ligation Additional Past Surgical History / Comment(s): Colostomy 2018, Gastric bypass/Clinton-en-Y in 2003, Lizzy filter 2000, teeth extraction, colonoscopy, EGD, hemorrhoidectomy, panniculectomy, D&C, hystoscopy x 2, LT KNEE replaced 2005-MRSA infection-hardware removed/cemented then replaced again, ORIF L hip repair, total R hip REPLACEMENT, bilat heel spurs removed, bilat CTR, infusaport insertion - since removed. Past Anesthesia/Blood Transfusion Reactions: Blood Transfusion Reaction Additional Past Anesthesia/Blood Transfusion Reaction / Comment(s): Per chart unspecified reaction. Past Psychological History: Anxiety, Depression Smoking Status: Former smoker Past Alcohol Use History: None Reported Past Drug Use History: None Reported - Past Family History Father Family Medical History: Myocardial Infarction (MT) Additional Family Medical History / Comment(s): AT AGE 46-MT Mother Family Medical History: Diabetes Mellitus Additional Family Medical History / Comment(s): AT AGE 66 FROM COMPLICATIONS FROM DM Sister(s) Family Medical History: Diabetes Mellitus Brother(s) Family Medical History: Diabetes Mellitus Daughter(s) Family Medical History: Cancer Son(s) Family Medical History: No Reported History General Exam - General Exam Comments Initial Comments: This is a well-developed obese female who is minimally responsive except to pain Limitations: no limitations General appearance: anxious, lethargic ENT exam: Present: mucous membranes dry Neck exam: Present: normal inspection, full ROM, other (No stridor JVD or bruits) Respiratory exam: Present: decreased breath sounds Cardiovascular Exam: Present: normal rhythm, tachycardia GI/Abdominal exam: Present: other (Obese abdomen) Rectal exam: Present: normal inspection Extremities exam: Present: normal capillary refill, other (Left pkkdx-lhx-lzfa amputation is a wound VAC on her right buttock and upper leg) Back exam: Present: normal inspection Neurological exam: Present: altered, CN II-XII intact Psychiatric exam: Present: other (Unable to evaluate) Skin exam: Present: normal color, diaphoretic. Absent: intact Course Vital Signs 08/24/19 08/24/19 08/24/19 14:39 15:00 15:30 Temperature 101.2 F H Pulse Rate 105 H 108 H 104 H Respiratory 18 14 16 Rate Blood Pressure 84/51 87/60 88/52 O2 Sat by Pulse 96 96 97 Oximetry 08/24/19 08/24/19 08/24/19 16:00 16:30 17:00 Temperature Pulse Rate 102 H 100 95 Respiratory 17 17 24 Rate Blood Pressure 113/68 101/56 99/45 O2 Sat by Pulse 96 96 98 Oximetry 08/24/19 17:30 Temperature Pulse Rate 98 Respiratory 18 Rate Blood Pressure 103/72 O2 Sat by Pulse 97 Oximetry - Reevaluation(s) Reevaluation #1: 08/24/19 15:23 Patient does appear to meet sepsis criteria at this time patient was given IV fluids based on ideal body weight 08/24/19 15:24 The patient's ideal body weight 54 kg she was given 1500 mL initially of IV fluids and then maintenance at 1 30 mL per hour. She was given IV Levaquin and she is ALLERGIC to penicillins and cephalosporins. Reevaluation #2: 08/24/19 18:05 Patient remains hemodynamically stable pressure is improved somewhat. Reevaluation #3: 08/24/19 18:07 Patient does states she is feeling improved at this time the blood pressure has improved though is just laying somewhat. Patient will be receiving more IV fluids. Medical Decision Making - Medical Decision Making I did discuss findings with the patient as well as with Dr. Lara who did come see the patient in the emergency department she does present with use of sepsis with hypotension and fever tachycardia and evidence of UTI. Lactic acid was however within normal limits at this time. Will be admitted continue on IV fluids and IV antibiotics. She has again improved she states she does feel better at this time. - Lab Data Result diagrams: 08/24/19 14:45 08/24/19 14:45 Lab Results 08/24/19 08/24/19 08/24/19 Range/Units 14:45 14:45 14:45 WBC 16.3 H (3.8-10.6) k/uL RBC 2.80 L (3.80-5.40) m/uL Hgb 8.3 L (11.4-16.0) gm/dL Hct 27.1 L (34.0-46.0) % MCV 96.8 (80.0-100.0) fL MCH 29.8 (25.0-35.0) pg MCHC 30.8 L (31.0-37.0) g/dL RDW 15.7 H (11.5-15.5) % Plt Count 318 (150-450) k/uL Neutrophils % 88 % Lymphocytes % 8 % Monocytes % 1 % Eosinophils % 1 % Basophils % 0 % Neutrophils # 14.4 H (1.3-7.7) k/uL Lymphocytes # 1.3 (1.0-4.8) k/uL Monocytes # 0.2 (0-1.0) k/uL Eosinophils # 0.2 (0-0.7) k/uL Basophils # 0.0 (0-0.2) k/uL Hypochromasia Moderate PT (9.0-12.0) sec INR (<1.2) APTT (22.0-30.0) sec Sodium 140 (137-145) mmol/L Potassium 5.1 (3.5-5.1) mmol/L Chloride 114 H (98-107) mmol/L Carbon Dioxide 17 L (22-30) mmol/L Anion Gap 9 mmol/L BUN 31 H (7-17) mg/dL Creatinine 1.14 H (0.52-1.04) mg/dL Est GFR (CKD-EPI)AfAm 57 (>60 ml/min/1.73 sqM) Est GFR (CKD-EPI)NonAf 49 (>60 ml/min/1.73 sqM) Glucose 182 H (74-99) mg/dL Plasma Lactic Acid Maximus (0.7-2.0) mmol/L Calcium 8.3 L (8.4-10.2) mg/dL Total Bilirubin 0.4 (0.2-1.3) mg/dL AST 21 (14-36) U/L ALT 18 (4-34) U/L Alkaline Phosphatase 179 H (38-126) U/L Creatine Kinase 31 (30-135) U/L Troponin I (0.000-0.034) ng/mL Total Protein 6.7 (6.3-8.2) g/dL Albumin 2.7 L (3.5-5.0) g/dL Cortisol 12 ug/dL Urine Color Urine Appearance (Clear) Urine pH (5.0-8.0) Ur Specific Weldon (1.001-1.035) Urine Protein (Negative) Urine Glucose (UA) (Negative) Urine Ketones (Negative) Urine Blood (Negative) Urine Nitrite (Negative) Urine Bilirubin (Negative) Urine Urobilinogen (<2.0) mg/dL Ur Leukocyte Esterase (Negative) Urine RBC (0-5) /hpf Urine WBC (0-5) /hpf Urine WBC Clumps (None) /hpf Urine Bacteria (None) /hpf Hyaline Casts (0-2) /lpf Urine Mucus (None) /hpf Urine Yeast (Budding) (None) /hpf Influenza Type A RNA Not Detected (Not Detectd) Influenza Type B (PCR) Not Detected (Not Detectd) 08/24/19 08/24/19 08/24/19 Range/Units 14:45 14:45 14:45 WBC (3.8-10.6) k/uL RBC (3.80-5.40) m/uL Hgb (11.4-16.0) gm/dL Hct (34.0-46.0) % MCV (80.0-100.0) fL MCH (25.0-35.0) pg MCHC (31.0-37.0) g/dL RDW (11.5-15.5) % Plt Count (150-450) k/uL Neutrophils % % Lymphocytes % % Monocytes % % Eosinophils % % Basophils % % Neutrophils # (1.3-7.7) k/uL Lymphocytes # (1.0-4.8) k/uL Monocytes # (0-1.0) k/uL Eosinophils # (0-0.7) k/uL Basophils # (0-0.2) k/uL Hypochromasia PT 10.2 (9.0-12.0) sec INR 1.0 (<1.2) APTT 25.1 (22.0-30.0) sec Sodium (137-145) mmol/L Potassium (3.5-5.1) mmol/L Chloride (98-107) mmol/L Carbon Dioxide (22-30) mmol/L Anion Gap mmol/L BUN (7-17) mg/dL Creatinine (0.52-1.04) mg/dL Est GFR (CKD-EPI)AfAm (>60 ml/min/1.73 sqM) Est GFR (CKD-EPI)NonAf (>60 ml/min/1.73 sqM) Glucose (74-99) mg/dL Plasma Lactic Acid Maximus 1.9 (0.7-2.0) mmol/L Calcium (8.4-10.2) mg/dL Total Bilirubin (0.2-1.3) mg/dL AST (14-36) U/L ALT (4-34) U/L Alkaline Phosphatase (38-126) U/L Creatine Kinase (30-135) U/L Troponin I <0.012 (0.000-0.034) ng/mL Total Protein (6.3-8.2) g/dL Albumin (3.5-5.0) g/dL Cortisol ug/dL Urine Color Urine Appearance (Clear) Urine pH (5.0-8.0) Ur Specific Wel[place] (1.001-1.035) Urine Protein (Negative) Urine Glucose (UA) (Negative) Urine Ketones (Negative) Urine Blood (Negative) Urine Nitrite (Negative) Urine Bilirubin (Negative) Urine Urobilinogen (<2.0) mg/dL Ur Leukocyte Esterase (Negative) Urine RBC (0-5) /hpf Urine WBC (0-5) /hpf Urine WBC Clumps (None) /hpf Urine Bacteria (None) /hpf Hyaline Casts (0-2) /lpf Urine Mucus (None) /hpf Urine Yeast (Budding) (None) /hpf Influenza Type A RNA (Not Detectd) Influenza Type B (PCR) (Not Detectd) 08/24/19 Range/Units 16:00 WBC (3.8-10.6) k/uL RBC (3.80-5.40) m/uL Hgb (11.4-16.0) gm/dL Hct (34.0-46.0) % MCV (80.0-100.0) fL MCH (25.0-35.0) pg MCHC (31.0-37.0) g/dL RDW (11.5-15.5) % Plt Count (150-450) k/uL Neutrophils % % Lymphocytes % % Monocytes % % Eosinophils % % Basophils % % Neutrophils # (1.3-7.7) k/uL Lymphocytes # (1.0-4.8) k/uL Monocytes # (0-1.0) k/uL Eosinophils # (0-0.7) k/uL Basophils # (0-0.2) k/uL Hypochromasia PT (9.0-12.0) sec INR (<1.2) APTT (22.0-30.0) sec Sodium (137-145) mmol/L Potassium (3.5-5.1) mmol/L Chloride (98-107) mmol/L Carbon Dioxide (22-30) mmol/L Anion Gap mmol/L BUN (7-17) mg/dL Creatinine (0.52-1.04) mg/dL Est GFR (CKD-EPI)AfAm (>60 ml/min/1.73 sqM) Est GFR (CKD-EPI)NonAf (>60 ml/min/1.73 sqM) Glucose (74-99) mg/dL Plasma Lactic Acid Maximus (0.7-2.0) mmol/L Calcium (8.4-10.2) mg/dL Total Bilirubin (0.2-1.3) mg/dL AST (14-36) U/L ALT (4-34) U/L Alkaline Phosphatase (38-126) U/L Creatine Kinase (30-135) U/L Troponin I (0.000-0.034) ng/mL Total Protein (6.3-8.2) g/dL Albumin (3.5-5.0) g/dL Cortisol ug/dL Urine Color Yellow Urine Appearance Turbid H (Clear) Urine pH 8.5 H (5.0-8.0) Ur Specific [place] 1.022 (1.001-1.035) Urine Protein 4+ H (Negative) Urine Glucose (UA) Negative (Negative) Urine Ketones Negative (Negative) Urine Blood Negative (Negative) Urine Nitrite Positive H (Negative) Urine Bilirubin Negative (Negative) Urine Urobilinogen <2.0 (<2.0) mg/dL Ur Leukocyte Esterase Large H (Negative) Urine RBC 16 H (0-5) /hpf Urine WBC 110 H (0-5) /hpf Urine WBC Clumps Many H (None) /hpf Urine Bacteria Few H (None) /hpf Hyaline Casts 36 H (0-2) /lpf Urine Mucus Rare H (None) /hpf Urine Yeast (Budding) Many H (None) /hpf Influenza Type A RNA (Not Detectd) Influenza Type B (PCR) (Not Detectd) - EKG Data EKG shows normal: sinus rhythm EKG Comments: Rate of 108. Interval 156 QRS 66 QT since QTC 332/444 low-voltage QRS PACs noted - Radiology Data Radiology results: report reviewed (I did review the imaging no definite sign or evidence of pneumonic process), image reviewed Critical Care Time Critical Care Time: Yes Critical Care Time: 39 minutes of critical care time which includes initial presentation with history physical labs x-rays multiple reevaluation of the patient responsive therapy review of old charting discussed with the admitting physician admission orders documentation of the above Disposition Clinical Impression: Sepsis, Urinary tract infection, Febrile illness, acute, Hypotensive episode, Renal insufficiency syndrome Disposition: ADMITTED IP TO THIS HOSP Condition: Fair Referrals: Carlo Frederick MD [Primary Care Provider] - 1-2 days
[2019-08-24] MEDS: SODIUM CHLORIDE 0.9% 1,000 ML IV SCH (15:20)
[2019-08-24] MEDS: SODIUM CHLORIDE 0.9% 500 ML 500 ML IV SCH (15:21)
[2019-08-24] MEDS ORDERED: LEVOFLOXACIN 750MG-D5W PMX 750 MG in DEXTROSE/WATER 1 150ML.BAG IVPB STA (15:23)
[2019-08-24 15:27] LABS: Basophils % (A) 0 %; Eosinophils # (A) 0.2 k/uL (0-0.7); Eosinophils % (A) 1 %; HCT 27.1 % (34.0-46.0); HGB 8.3 gm/dL (11.4-16.0); Hypochromasia Moderate; Lymphocytes # (A) 1.3 k/uL (1.0-4.8); Lymphocytes % (A) 8 %; MCH 29.8 pg (25.0-35.0); MCHC 30.8 g/dL (31.0-37.0); MCV 96.8 fL (80.0-100.0); Mean Platelet Volume 7.1; Monocytes # (A) 0.2 k/uL (0-1.0); Monocytes % (A) 1 %; Neutrophils # (A) 14.4 k/uL (1.3-7.7); Neutrophils % (A) 88 %; Platelet Count 318 k/uL (150-450); RDW 15.7 % (11.5-15.5); WBC 16.3 k/uL (3.8-10.6)
--- NOTE | 2019-08-24 15:42 | XR ---
EXAMINATION TYPE: XR chest 1V portable DATE OF EXAM: 08/24/2019 COMPARISON: Prior chest x-ray 07/18/2019 HISTORY: Fever, altered mental status TECHNIQUE: Single frontal view of the chest is obtained. FINDINGS: Patient is rotated and there are overlying cardiac leads. The aorta is dense. No evident a irspace disease, pneumothorax, or pleural effusion. There is eventration of the hemidiaphragms. Heart may be enlarged. IMPRESSION: Rotated exam. Possible cardiomegaly.
[2019-08-24 15:43] LABS: Albumin 2.7 g/dL (3.5-5.0); Calcium 8.3 mg/dL (8.4-10.2); Potassium 5.1 mmol/L (3.5-5.1); Total Bilirubin 0.4 mg/dL (0.2-1.3); Total Protein 6.7 g/dL (6.3-8.2)
[2019-08-24 15:44] LABS: Partial Thromboplastin Time 25.1 sec (22.0-30.0); Prothrombin Time 10.2 sec (9.0-12.0)
[2019-08-24 16:21] LABS: Appearance,Urine Turbid (Clear); Bacteria,Urine Few /hpf; Bilirubin,Urine Negative (Negative); Blood,Urine Negative (Negative); Budding Yeast,Urine Many /hpf; Color,Urine Yellow; Glucose,Urine (UA) Negative (Negative); Hyaline Casts,Urine 36 /lpf (0-2); Ketones,Urine Negative (Negative); Leukocyte Esterase,Urine Large (Negative); Mucus,Urine Rare /hpf; Nitrite,Urine Positive (Negative); PH, Urine 8.5 (5.0-8.0); Protein,Urine 4+ (Negative); RBC,Urine 16 /hpf (0-5); Specific Gravity,Urine 1.022 (1.001-1.035); Urobilinogen,Urine <2.0 mg/dL (<2.0); WBC,Urine 110 /hpf (0-5)
[2019-08-24] MEDS ORDERED: POLYETHYLENE GLYCOL 3350 17 GM POWD.PACK PO PRN (18:13)
[2019-08-24] MEDS ORDERED: ACETAMINOPHEN TAB 325 MG TAB PO PRN (18:13)
[2019-08-24] MEDS ORDERED: hydrALAZINE HCL 25 MG TAB PO PRN (18:13)
[2019-08-24] MEDS ORDERED: SENNOSIDES 8.6 MG TAB PO PRN (18:13)
[2019-08-24] MEDS: HEPARIN SODIUM,PORCINE 5,000 UNIT/ML 1 ML VIAL SQ SCH ×2 (18:50→22:17)
[2019-08-24] MEDS: PANTOPRAZOLE 40 MG/10 ML VIAL IVP SCH (18:53)
[2019-08-24] MEDS: ATORVASTATIN 40 MG TAB PO SCH (19:32)
[2019-08-24] MEDS: SODIUM BICARBONATE TAB 650 MG TAB PO SCH (19:32)
[2019-08-24] MEDS: MULTIVITAMINS, THERA 1 EACH TAB PO SCH (19:32)
[2019-08-24] MEDS: metFORMIN 500 MG TAB PO SCH (19:32)
[2019-08-24] MEDS: DULoxetine HCL 20 MG CAPSULE.DR PO SCH (19:33)
[2019-08-24] MEDS: FERROUS SULFATE 325 MG TAB PO SCH (19:33)
[2019-08-24] MEDS: MORPHINE SULFATE ER 15 MG TABLET PO SCH (19:33)
[2019-08-24] MEDS: MUPIROCIN 2% OINT 22 GM TUBE TOPICAL SCH (19:34)
[2019-08-24] MEDS: MENTHOL-ZINC OXIDE OINT 113 GM TUBE TOPICAL SCH (19:34)
--- NOTE | 2019-08-24 19:34 | HP ---
HISTORY AND PHYSICAL DATE OF SERVICE: 08/24/2019. CHIEF COMPLAINT: Fever. HISTORY OF PRESENT ILLNESS: This 68-year-old woman with a past medical history of multiple medical problems including left above-knee amputation, history of multiple decubitus ulcer, on wound VAC, history of atrial ablation, DVT, history of diabetes type 2, GERD, hypertension, hyperlipidemia, history of pneumonia, being followed by Dr. Frederick in the outpatient setting was living in a [facility] at this time. The patient had a wound VAC as mentioned earlier. The patient has seen Dr. [facility]. The patient had fever in the long-term and the patient also had a chronic indwelling Coffey catheter. The patient also had metabolic encephalopathy, colostomy, morbid obesity. Because of the fever and tachycardia, patient also found to be hypotensive and the patient taken to [facility] and admitted to the hospital for further evaluation and treatment. The influenza testing is negative. The possibility of UTI, with sepsis is considered and patient admitted to the hospital for further evaluation and treatment. Creatinine is elevated 1.14. The baseline creatinine is normal. There is no history of any headache, loss of consciousness or seizures at this time. The patient is able to give a sketchy history at this time. PAST MEDICAL HISTORY: History of multiple decubitus ulcers, history of atrial fibrillation, diabetes, DVT, history of left above -knee amputation, history of chronic blood loss anemia. MEDICATIONS: Prior to admission, home medications are reviewed and include: 1. Metformin 500 mg p.o. b.i.d. 2. Apresoline 25 mg b.i.d. p.r.n. 3. Norvasc 10 mg p.o. daily. 4. Sodium bicarb 650 p.o. b.i.d. 5. Senna 17.2 daily p.r.n. 6. K-Dur 10 mEq p.o. daily. 7. MiraLAX 17 g daily. 8. Protonix 40 mg p.o. daily. 10.Multivitamins one p.o. daily. 11.MS Contin 50 mg p.o. b.i.d. 12.Robaxin 500 mg p.o. q.i.d. 13.Calmoseptine topically t.i.d. 14.Claritin 10 mg daily. 15.Lisinopril 40 mg daily. 16.Insulin lispro subcu b.i.d. 17.Harper 1 tablet q.6 p.r.n. 18.Lasix 20 mg p.o. daily. 19.Iron 320 mg p.o. daily. 20.Cymbalta 20 mg p.o. b.i.d. 22.Lipitor 40 mg q.h.s. 23.Tylenol 650 q.6h p.r.n. ALLERGIES: ADHESIVE TAPE, CEPHALEXIN, INFLUENZA, PEANUT, PENICILLIN, TETANUS TOXOID, BACLOFEN, INFLUENZA VIRUS VACCINE. FAMILY HISTORY: History of myocardial infarction in the family, who at the age of 46. SOCIAL HISTORY: Previous history of smoking. No history of current smoking or alcohol. REVIEW OF SYSTEMS: ENT diminished vision. Diminished hearing. CARDIOVASCULAR system as mentioned earlier. RESPIRATORY: As mentioned earlier. GI: As mentioned earlier. : As mentioned earlier. NERVOUS SYSTEM: As mentioned earlier. ALLERGIES/IMMUNOLOGY: No asthma or hayfever. MUSCULOSKELETAL as mentioned earlier. HEMATOLOGY/ONCOLOGY: No history of anemia. ENDOCRINE: As mentioned earlier. CONSTITUTIONAL: As mentioned earlier. DERMATOLOGY: Negative. RHEUMATOLOGY negative. PSYCHIATRY as mentioned earlier. PHYSICAL EXAMINATION: Alert and oriented x2. Pulse 102, temperature is 101.2, blood pressure 130/60. Respirations 17, temperature is 96 on room air. Blood pressure is 84/51, present on admission. HEENT: Conjunctivae normal. Oral mucosa dry. NECK is no jugular venous distention. No carotid bruit. No lymph node enlargement. CARDIOVASCULAR SYSTEM: S1, S2 muffled. RESPIRATORY: Breath sounds diminished in the bases. A few scattered rhonchi and crackles. Expiratory wheezing also heard. ABDOMEN: Soft, obese, nontender. No mass palpable. LEGS: Status post left above-knee amputation. Otherwise some cellulitic process in the right mid lung and decubitus ulcer in the gluteal region with wound VAC present. NERVOUS SYSTEM: Moves all 4 limbs. Diffusely weak. Otherwise SKIN as mentioned earlier. JOINTS: No active deforming arthropathy. LYMPHATICS: No lymph nodes palpable in the neck, axillae or groin. LAB: WBC 16.2, hemoglobin is 8.3, sodium 140, potassium 5.2. UA noted. ASSESSMENT: 1. Acute sepsis, present on admission, possibly secondary from acute urinary tract infection or secondary to chronic indwelling Coffey catheter or decubitus ulcers. 2. Increased WBC. 3. Anemia, normocytic. 4. Increased creatinine with acute renal failure, acute tubular necrosis. 5. Gait dysfunction. 6. History of atrial fibrillation. 7. Diabetes type 2. 8. History of deep vein thrombosis. 9. History of fibromyalgia. 10.History of gastroesophageal reflux disease. 11.History of gastrointestinal bleed. 12.Hypertension. 13.Hyperlipidemia. 14.History of sleep apnea. 15.History of supraventricular tachycardia. 16.History of chronic blood-loss anemia. 17.History of chronic kidney stage III. 18.History of morbid obesity. BMI of 36.8. 19.History of Clinton-en-Y gastric bypass. 20.History of gastric ulcer. 21.History of degenerative joint disease. 22.History of MRSA and as well as VRE with sepsis in the past. 23.History of peripheral neuropathy, diabetic. 24.History of colostomy. 25.History of decubitus ulcer on the back, on wound VAC. 26.History of bowel resection. 27.History of anxiety, depression. 28.Remote history of nicotine dependence. RECOMMENDATIONS AND DISCUSSION: This 68-year-old woman who presented with multiple complex medical issues, at this at this time, I recommend to continue the current treatment, continue symptomatic treatment. We will initiate broad-spectrum IV antibiotics. Resume the home medications. Follow the cultures. IV fluids. Monitor blood pressure closely. Monitor serum lactate closely. Initial lactic acid is 1.9. Otherwise, overall prognosis guarded because of multiple complex medical issues. Further recommendations to follow. Discussed with the patient who understands and agrees. A copy of this dictation being forwarded to Dr. Frederick who is the primary care physician. MMODL / IJN: [id number] / TRISTAN
[2019-08-24] MEDS: METHOCARBAMOL 500 MG TAB PO SCH (19:53)
[2019-08-24 20:06] LABS: Glucose,Whole Blood 196 mg/dL (75-99)
[2019-08-24] MEDS: HYDROcodone/APAP 10-325MG 1 EACH TAB PO PRN (22:18)
[2019-08-25] MEDS: HYDROcodone/APAP 10-325MG 1 EACH TAB PO PRN ×4 (04:45→22:50)
[2019-08-25 06:05] LABS: Basophils % (A) 0 %; Eosinophils # (A) 0.1 k/uL (0-0.7); Eosinophils % (A) 1 %; HCT 24.7 % (34.0-46.0); HGB 7.6 gm/dL (11.4-16.0); Hypochromasia Marked; Lymphocytes # (A) 1.3 k/uL (1.0-4.8); Lymphocytes % (A) 11 %; MCH 30.1 pg (25.0-35.0); MCHC 30.6 g/dL (31.0-37.0); MCV 98.3 fL (80.0-100.0); Mean Platelet Volume 6.9; Monocytes # (A) 0.2 k/uL (0-1.0); Monocytes % (A) 2 %; Neutrophils # (A) 9.7 k/uL (1.3-7.7); Neutrophils % (A) 85 %; Platelet Count 297 k/uL (150-450); RBC 2.51 m/uL (3.80-5.40); RDW 15.4 % (11.5-15.5); WBC 11.5 k/uL (3.8-10.6)
[2019-08-25 06:11] LABS: Glucose,Whole Blood 137 mg/dL (75-99)
[2019-08-25 06:19] LABS: Calcium 7.7 mg/dL (8.4-10.2); Potassium 4.7 mmol/L (3.5-5.1)
[2019-08-25] MEDS: SODIUM CHLORIDE 0.9% 1,000 ML IV SCH ×4 (06:21→20:02)
[2019-08-25] MEDS: LORATADINE 10 MG TAB PO SCH (08:11)
[2019-08-25] MEDS: LISINOPRIL 20 MG TAB PO SCH (08:11)
[2019-08-25] MEDS: MORPHINE SULFATE ER 15 MG TABLET PO SCH ×2 (08:12→20:02)
[2019-08-25] MEDS: FUROSEMIDE 20 MG TAB PO SCH (08:12)
[2019-08-25] MEDS: amLODIPine 10 MG TAB PO SCH (08:12)
[2019-08-25] MEDS: POTASSIUM CHLORIDE ER 10 MEQ TAB.ER.PRT PO SCH (08:15)
[2019-08-25] MEDS: metFORMIN 500 MG TAB PO SCH ×2 (08:15→20:02)
[2019-08-25] MEDS: SODIUM BICARBONATE TAB 650 MG TAB PO SCH ×2 (08:15→20:02)
[2019-08-25] MEDS: HEPARIN SODIUM,PORCINE 5,000 UNIT/ML 1 ML VIAL SQ SCH ×3 (08:16→22:50)
[2019-08-25] MEDS: PANTOPRAZOLE 40 MG/10 ML VIAL IVP SCH (08:16)
[2019-08-25] MEDS: DULoxetine HCL 20 MG CAPSULE.DR PO SCH ×2 (08:17→20:02)
[2019-08-25] MEDS: MENTHOL-ZINC OXIDE OINT 113 GM TUBE TOPICAL SCH ×3 (08:18→20:03)
[2019-08-25] MEDS: MUPIROCIN 2% OINT 22 GM TUBE TOPICAL SCH ×2 (08:18→20:03)
[2019-08-25] MEDS: METHOCARBAMOL 500 MG TAB PO SCH ×4 (08:18→20:02)
[2019-08-25 11:30] LABS: Glucose,Whole Blood 159 mg/dL (75-99)
[2019-08-25] MEDS ORDERED: LEVOFLOXACIN 750MG-D5W PMX 750 MG in DEXTROSE/WATER 1 150ML.BAG IVPB SCH (16:00)
[2019-08-25 16:49] LABS: Glucose,Whole Blood 242 mg/dL (75-99)
[2019-08-25] MEDS: MULTIVITAMINS, THERA 1 EACH TAB PO SCH (20:02)
[2019-08-25] MEDS: ATORVASTATIN 40 MG TAB PO SCH (20:02)
[2019-08-25] MEDS: FERROUS SULFATE 325 MG TAB PO SCH (20:02)
[2019-08-25 20:35] LABS: Glucose,Whole Blood 198 mg/dL (75-99)
--- NOTE | 2019-08-25 21:45 | PN ---
PROGRESS NOTE DATE OF SERVICE: 08/25/2019 This 68-year-old woman was admitted with possible UTI, sepsis, also indwelling Coffey catheter. The patient also had multiple decubitus ulcers also. The patient also was completely confused yesterday with antibiotics. The patient is slightly more alert, still confused, but able to provide some answers to some questions at this time. The patient being closely monitored. Otherwise hemoglobin is 7.6 today. 8.3, creatinine is 1.05 as well. PAST MEDICAL HISTORY: Reviewed. REVIEW OF SYSTEMS: Cardiovascular system: No angina or palpitations. RESPIRATORY: As mentioned earlier. GI: As mentioned earlier. NERVOUS SYSTEM: No numbness or weakness. CURRENT MEDICATIONS: Reviewed and include: 1. Tylenol p.r.n. 2. [place] 10 mg q.6h p.r.n. 3. Norvasc 10 mg. 4. Lipitor 40 mg q.h.s. 5. Calmoseptine. 6. Cymbalta 20 mg p.o. b.i.d. 7. Iron sulfate. 8. Lasix 20 mg daily. 9. Heparin. 10.Apresoline. 11.Levaquin 750 IV daily. 12.Zestril 40 mg daily. 13.Claritin 10 mg p.o. daily. 14.Glucophage 500 mg p.o. b.i.d. 15.Robaxin. 16.MS Contin 50 mg p.o. b.i.d. 17.Multivitamins. 18.Bactroban. 19.Protonix 40 mg daily. 20.Maalox. 21.K-Dur 10 mEq. 22.Senokot. PHYSICAL EXAMINATION: Patient is alert, oriented x2. Pulse is 88. Blood pressure 120/62. Respirations 17, temperature 98.1, pulse ox 98% on room air. HEENT: Conjunctivae normal. Oral mucosa moist. NECK is no jugular venous distention. No carotid bruit. No lymph node enlargement. CARDIOVASCULAR systems: S1, S2 muffled. RESPIRATION: Breath sounds diminished in the bases. Bilateral scattered rhonchi and crackles. ABDOMEN: Soft, obese, nontender. LEGS: Bilateral leg edema and bilateral decubitus ulcers also present. NERVOUS SYSTEM: Higher functions as mentioned earlier. Mild diffuse weakness. LYMPHATICS: No lymph nodes palpable in the neck, axillae or groin. JOINTS: No active deforming arthropathy. LABS: WBC 11.2, hemoglobin 7.6. ASSESSMENT: 1. Acute sepsis, present on admission, possibly secondary to urinary tract infection related to chronic indwelling Coffey catheter or decubitus ulcers. 2. Increased WBC. 3. Anemia, normocytic of chronic disease. 4. Increased creatinine with acute renal failure, acute tubular necrosis, prerenal renal failure. 5. Gait dysfunction. 6. History of atrial fibrillation, chronic. 7. Diabetes type 2. 8. History of deep vein thrombosis. 9. History of fibromyalgia. 10.History of GERD. 11.History of gastrointestinal bleed. 12.Hypertension. 13.Hyperlipidemia. 14.History of sleep apnea. 15.History of supraventricular tachycardia. 16.Chronic blood-loss anemia. 17.Chronic kidney disease stage III. 18.History of morbid obesity, BMI of 36.8. 19.History of [place]-en-Y gastric bypass. 20.History of gastric ulcer. 21.History of degenerative joint disease. 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 23.History of peripheral neuropathy, diabetic. 24.History of colostomy. 25.History of decubitus ulcers on the back on wound VAC. 26.History of bowel resection. 27.History of anxiety, depression. 28.Remote history of nicotine dependence. RECOMMENDATIONS AND DISCUSSION: Continue current medications, continue monitoring, continue symptomatic treatment. Continue with broad-spectrum IV antibiotics. Infectious disease evaluation. Currently patient is on Levaquin. Final cultures still pending at this time. Creatinine is elevated. We will continue to monitor. Prognosis guarded because of multiple complex medical issues. Further recommendations to follow. MMODL / IJN: [id number] / TRISTAN
[2019-08-26] MEDS: HYDROcodone/APAP 10-325MG 1 EACH TAB PO PRN ×3 (03:51→17:01)
[2019-08-26] MEDS: SODIUM CHLORIDE 0.9% 1,000 ML IV SCH (06:20)
[2019-08-26 06:22] LABS: Glucose,Whole Blood 136 mg/dL (75-99)
[2019-08-26 06:29] LABS: Basophils % (A) 1 %; Eosinophils # (A) 0.3 k/uL (0-0.7); Eosinophils % (A) 4 %; HCT 27.7 % (34.0-46.0); HGB 8.4 gm/dL (11.4-16.0); Hypochromasia Marked; Lymphocytes # (A) 1.4 k/uL (1.0-4.8); Lymphocytes % (A) 22 %; MCHC 30.3 g/dL (31.0-37.0); MCV 98.9 fL (80.0-100.0); Macrocytosis Slight; Mean Platelet Volume 7.1; Monocytes # (A) 0.3 k/uL (0-1.0); Monocytes % (A) 4 %; Neutrophils # (A) 4.2 k/uL (1.3-7.7); Neutrophils % (A) 66 %; Platelet Count 309 k/uL (150-450); RDW 15.5 % (11.5-15.5); WBC 6.3 k/uL (3.8-10.6)
[2019-08-26 06:41] LABS: Calcium 8.5 mg/dL (8.4-10.2); Potassium 4.5 mmol/L (3.5-5.1)
[2019-08-26] MEDS: MORPHINE SULFATE ER 15 MG TABLET PO SCH ×2 (07:03→20:12)
[2019-08-26] MEDS: PANTOPRAZOLE 40 MG/10 ML VIAL IVP SCH (10:04)
[2019-08-26] MEDS: SODIUM BICARBONATE TAB 650 MG TAB PO SCH ×2 (10:05→20:13)
[2019-08-26] MEDS: POTASSIUM CHLORIDE ER 10 MEQ TAB.ER.PRT PO SCH (10:05)
[2019-08-26] MEDS: HEPARIN SODIUM,PORCINE 5,000 UNIT/ML 1 ML VIAL SQ SCH ×3 (10:07→22:30)
[2019-08-26] MEDS: amLODIPine 10 MG TAB PO SCH (10:08)
[2019-08-26] MEDS: LORATADINE 10 MG TAB PO SCH (10:09)
[2019-08-26] MEDS: metFORMIN 500 MG TAB PO SCH ×2 (10:09→20:12)
[2019-08-26] MEDS: DULoxetine HCL 20 MG CAPSULE.DR PO SCH ×2 (10:09→20:12)
[2019-08-26] MEDS: LISINOPRIL 20 MG TAB PO SCH (10:09)
[2019-08-26] MEDS: FUROSEMIDE 20 MG TAB PO SCH (10:09)
[2019-08-26] MEDS: METHOCARBAMOL 500 MG TAB PO SCH ×4 (10:10→20:13)
[2019-08-26] MEDS: MENTHOL-ZINC OXIDE OINT 113 GM TUBE TOPICAL SCH ×3 (10:26→20:13)
[2019-08-26] MEDS: MUPIROCIN 2% OINT 22 GM TUBE TOPICAL SCH ×2 (10:27→20:13)
[2019-08-26 11:42] LABS: Glucose,Whole Blood 173 mg/dL (75-99)
[2019-08-26 16:57] LABS: Glucose,Whole Blood 149 mg/dL (75-99)
--- NOTE | 2019-08-26 18:13 | P.CONS ---
History of Present Illness - Reason for Consult Consult date: 08/25/19 Fever/UTI Requesting physician: Haritha Lara - Chief Complaint Fever and less responsive x 1 day - History of Present Illness Patient is a 68-year female long term resident has been sent to the ER at [facility] of fever and decreased responsiveness, patient on arrival to the ER was noticed to be hypotensive and tachycardic, the patient did have a fever of 101.2 F and her white count was elevated at 16.3, the patient has a positive UA, influenza serology was negative, the patient had chest x-ray which was rotated exam possible cardiomegaly, the patient started on Levaquin because of her multiple antibiotic allergies infectious disease was consulted for further recommendation about antibiotic therapy. At the time my evaluation the patient is known that she is in the hospital patient currently denies having any headache or URI symptom, the patient denies having chest pain he did have minimal cough but not become any sputum no nausea vomiting abdominal pain and no diarrhea. The patient does have chronic indwelling Salguero catheter however the patient not sure exactly when the last and his catheter has been changed UA obtained from this catheter significantly positive Review of Systems Positive point has been mentioned HPI rest of systems are negative Past Medical History Past Medical History: Atrial Fibrillation, Diabetes Mellitus, Deep Vein Thrombosis (DVT), Fibromyalgia, GERD/Reflux, GI Bleed, Hyperlipidemia, Hypertension, Pneumonia, Renal Disease, Skin Disorder, Sleep Apnea/CPAP/BIPAP, Supraventricular Tachycardia (SVT), Vascular Disorder Additional Past Medical History / Comment(s): Chronic blood loss -anemia, chronic stage III renal failure, morbid obesity, DVT lt lower leg w/ prev IVC filter in place, dermatitis, gastric ulcer w/ [place]-en-Y gastric bypass, chronic lower back pain,hx severe sepsis w/ septic shock/septicemia w/ MRSA, hemorrhoids, cellulitis of LLE, dysphagia, falls, muscle weakness, bilat tinnitus, UTI. peripheral neuropathy (bilat hands/feet), migraines, eczema, sinus problems, lower GI bleed. SALGUERO, COLOSTOMY. DECUBITUS ULCER. Last Myocardial Infarction Date:: unknown History of Any Multi-Drug Resistant Organisms: MRSA, VRE Year Discovered:: 04/25/19 MRSA; 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 Source:: KNEE & Buttock-MRSA; Urine-VRE & ESBL Past Surgical History: Adenoidectomy, Bariatric Surgery, Bowel Resection, Cholecystectomy, Joint Replacement, Tonsillectomy, Tubal Ligation Additional Past Surgical History / Comment(s): Colostomy 2018, Gastric bypass/[place]-en-Y in 2003, [place] filter 2000, teeth extraction, colonoscopy, EGD, hemorrhoidectomy, panniculectomy, D&C, hystoscopy x 2, LT KNEE replaced 2005-MRSA infection-hardware removed/cemented then replaced again, ORIF L hip repair, total R hip REPLACEMENT, bilat heel spurs removed, bilat CTR, infusaport insertion - since removed. Past Anesthesia/Blood Transfusion Reactions: Blood Transfusion Reaction Additional Past Anesthesia/Blood Transfusion Reaction / Comm: Per chart unspecified reaction. Past Psychological History: Anxiety, Depression Additional Psychological History / Comment(s): Patient is now in extended care. No longer live independently. Does not have any significant family. 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 She has history of smoking 1.5-2 pack per day for 27 years and quit in 1993. She drinks alcohol rarely. 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 Smoking Status: Former smoker Past Alcohol Use History: None Reported Additional Past Alcohol Use History / Comment(s): HX of smoking 2 ppd for 27 years, quit 1993. She drinks alcohol rarely. Past Drug Use History: None Reported Additional Drug Use History / Comment(s): . - Past Family History Father Family Medical History: Myocardial Infarction (AL) Additional Family Medical History / Comment(s): AT AGE 46-AL Mother Family Medical History: Diabetes Mellitus Additional Family Medical History / Comment(s): AT AGE 66 FROM COMPLICATIONS FROM DM Sister(s) Family Medical History: Diabetes Mellitus Brother(s) Family Medical History: Diabetes Mellitus Daughter(s) Family Medical History: Cancer Son(s) Family Medical History: No Reported History Medications and Allergies Home Medications Medication Instructions Recorded Confirmed Type Atorvastatin [Lipitor] 40 mg PO DAILY@199908/30/15 08/24/19 History Ferrous Sulfate [Iron (65 MG 325 mg PO DAILY@1400 04/11/19 08/24/19 History Elemental)] metFORMIN HCL [Glucophage] 500 mg PO BID 04/11/19 08/24/19 History DULoxetine HCL [Cymbalta] 20 mg PO BID 04/25/19 08/24/19 History Loratadine [Claritin] 10 mg PO DAILY@0600 04/25/19 08/24/19 History Acetaminophen Tab [Tylenol] 650 mg PO Q6H PRN 07/18/19 08/24/19 History Furosemide [Lasix] 20 mg PO DAILY@0600 07/18/19 08/24/19 History INSULIN LISPRO (HumaLOG) [humaLOG] See Protocol SQ BID@050,199907/18/19 08/24/19 History Lisinopril 40 mg PO DAILY@0600 07/18/19 08/24/19 History Methocarbamol [Robaxin] 500 mg PO QID 07/18/19 08/24/19 History Mupirocin 2% Oint [Bactroban 2% 1 applic TOPICAL BID 07/18/19 08/24/19 History Oint] Pantoprazole Sodium [Protonix] 40 mg PO DAILY@0600 07/18/19 08/24/19 History Potassium Chloride ER [K-Dur 10] 10 meq PO DAILY@0600 07/18/19 08/24/19 History Hydrocodone/Acetaminophen [Grant 1 tab PO Q6H PRN #8 tab 07/20/19 08/24/19 Rx 10-325] Morphine Sulfate ER [Ms Contin] 15 mg PO BID@0700,1900 #6 tab 07/20/19 08/24/19 Rx Polyethylene Glycol 3350 [Miralax] 17 gm PO DAILY PRN #0 07/20/19 08/24/19 Rx Sennosides [Senokot] 17.2 mg PO DAILY PRN #0 07/20/19 08/24/19 Rx amLODIPine [Norvasc] 10 mg PO DAILY #30 tab 07/20/19 08/24/19 Rx hydrALAZINE HCL [Apresoline] 25 mg PO BID PRN #30 tab 07/20/19 08/24/19 Rx Multivitamins, Thera [Multivitamin 1 tab PO DAILY@0600 08/24/19 08/24/19 History (formulary)] Allergies Allergy/AdvReac Type Severity Reaction Status Date / Time adhesive tape Allergy Severe Rash/Hives Verified 08/24/19 19:20 cephalexin monohydrate Allergy Severe Rash/Hives Verified 08/24/19 19:20 [From Keflex] influenza virus vaccine, Allergy Severe Anaphylaxis Verified 08/24/19 19:20 specific [influenza virus vacc,specific] latex Allergy Severe Rash/Hives Verified 08/24/19 19:20 peanut Allergy Severe Anaphylaxis Verified 08/24/19 19:20 Penicillins Allergy Severe Swelling Verified 08/24/19 19:20 tetanus toxoid, adsorbed Allergy Intermediate Rash/Hives Verified 08/24/19 19:20 baclofen Allergy Unknown Verified 08/24/19 19:20 Influenza Virus Vaccines Allergy Anaphylaxis Verified 08/24/19 19:20 Physical Exam Vitals: Vital Signs Temp Pulse Resp BP Pulse Ox 08/26/19 16:00 98.3 F 87 15 117/56 98 08/26/19 12:00 97.1 F L 87 15 145/67 99 08/26/19 08:00 98.2 F 91 14 118/58 96 08/26/19 03:17 97.5 F L 75 18 108/59 97 08/25/19 23:54 78 18 118/58 98 08/25/19 20:00 96.8 F L 80 18 112/53 97 Intake and Output 08/26/19 08/26/19 08/26/19 06:59 14:59 22:59 Intake Total 240 Output Total 1150 1100 Balance -1150 -860 Intake: Oral 240 Output: Urine 1150 1100 Other: Voiding Method Indwelling Catheter Indwelling Catheter Indwelling Catheter # Voids 1 Weight 98 kg GENERAL DESCRIPTION: Elderly female lying in bed, no distress. No tachypnea or accessory muscle of respiration use. HEENT: Shows Pallor , no scleral icterus. Oral mucous membrane is dry. No pharyngeal erythema or thrush NECK: Trachea central, no thyromegaly. LUNGS: Unlabored breathing. Decreased breath sound at the base. No wheeze or crackle. HEART: S1, S2, regular rate and rhythm. No loud murmur ABDOMEN: Soft, no tenderness , guarding or rigidity, no organomegaly EXTREMITIES: Right leg with minimal swelling she did have Silvadene cream applied with no open wound or any drainage sKIN: No rash, no masses palpable. NEUROLOGICAL: The patient is awake, alert, oriented x3, mood and affect normal. Results CBC & Chem 7: 08/26/19 06:05 08/26/19 06:05 Labs: Abnormal Lab Results - Last 24 Hours (Table) 08/25/19 08/26/19 08/26/19 Range/Units 20:34 06:05 06:05 RBC 2.80 L (3.80-5.40) m/uL Hgb 8.4 L (11.4-16.0) gm/dL Hct 27.7 L (34.0-46.0) % MCHC 30.3 L (31.0-37.0) g/dL Chloride 114 H (98-107) mmol/L Carbon Dioxide 17 L (22-30) mmol/L BUN 25 H (7-17) mg/dL Glucose 123 H (74-99) mg/dL POC Glucose (mg/dL) 198 H (75-99) mg/dL 08/26/19 08/26/19 08/26/19 Range/Units 06:21 11:38 16:56 RBC (3.80-5.40) m/uL Hgb (11.4-16.0) gm/dL Hct (34.0-46.0) % MCHC (31.0-37.0) g/dL Chloride (98-107) mmol/L Carbon Dioxide (22-30) mmol/L BUN (7-17) mg/dL Glucose (74-99) mg/dL POC Glucose (mg/dL) 136 H 173 H 149 H (75-99) mg/dL Microbiology - Last 24 Hours (Table) 08/24/19 14:45 Blood Culture - Preliminary Blood No Growth after 48 hours 08/24/19 16:00 Urine Culture - Preliminary Urine,Voided Gram Neg Bacilli Assessment and Plan Assessment: 1-patient admitted hospital with sepsis in this patient did have fever tachycardia elevated white count meeting criteria for Sirs source likely catheter associated tract infection this patient did have a chronic indwelling Salguero catheter is not very clear when the last time his Salguero catheter was changed. 2-patient with multiple antibiotic allergies that would limit the number of antibiotics safe to use (1) Allergy to multiple antibiotics Current Visit: Yes Status: Acute Code(s): Z88.1 - ALLERGY STATUS TO OTHER ANTIBIOTIC AGENTS STATUS SNOMED Code(s): 389725114284938 (2) Sepsis Current Visit: Yes Status: Acute Code(s): A41.9 - SEPSIS, UNSPECIFIED ORGANISM SNOMED Code(s): 82545645 (3) Urinary tract infection Current Visit: Yes Status: Acute Code(s): N39.0 - URINARY TRACT INFECTION, SITE NOT SPECIFIED SNOMED Code(s): 08655851 Plan: 1-change Salguero catheter obtain urine culture from the new Salguero 2-Levaquin 750 mg daily to continue to which her fever has responded 3-IV fluids We will follow on clinical condition and cultures to further adjust medication if needed Thank you for this consultation will follow this patient along with you Time with Patient: Greater than 30
[2019-08-26 20:08] LABS: Glucose,Whole Blood 166 mg/dL (75-99)
[2019-08-26] MEDS: MULTIVITAMINS, THERA 1 EACH TAB PO SCH (20:12)
[2019-08-26] MEDS: ATORVASTATIN 40 MG TAB PO SCH (20:12)
[2019-08-26] MEDS: FERROUS SULFATE 325 MG TAB PO SCH (20:14)
--- NOTE | 2019-08-26 22:25 | PN ---
PROGRESS NOTE DATE OF SERVICE: 08/26/2019 This 68-year-old woman was admitted with acute UTI, sepsis, and change in mental status also. After multiple days of antibiotics, the patient's sensorium is slightly improved. Patient continues to be confused. PHYSICAL EXAMINATION: Alert and oriented x2. Pulse 87. Blood pressure 145/67, respirations 16, temperature 97.1, pulse ox 99% on room air. HEENT: Conjunctivae normal. NECK: No JVD. CARDIOVASCULAR: S1, S2 muffled. RESPIRATIONS: Breath sounds diminished in the bases. Bilateral scattered rhonchi and crackles. ABDOMEN is soft, nontender. LEGS are no edema. No swelling. CENTRAL NERVOUS SYSTEM: No focal deficits. LABS: At this time shows WBC 6.3, hemoglobin is 8.4, sodium 140, potassium 4.5 and glucose 123. ASSESSMENT: 1. Acute sepsis, present on admission, possibly secondary to urinary tract infection related to chronic indwelling Coffey catheter or decubitus ulcers. 2. Gram-negative bacilli grown from the culture. 3. Increased WBC. 4. Anemia, normocytic of chronic disease. 5. Increased creatinine with acute renal failure, acute tubular necrosis with prerenal renal failure. 6. Gait dysfunction. 7. History of atrial fibrillation chronic. 8. Diabetes mellitus type 2. 9. History of deep vein thrombosis. 10.History of fibromyalgia. 11.History of gastroesophageal reflux disease. 12.History of gastrointestinal bleed. 13.Hypertension. 14.Hyperlipidemia. 15.History of sleep apnea. 16.History of supraventricular tachycardia. 17.Chronic blood-loss anemia. 18.Chronic kidney stage 3, baseline. 19.History of morbid obesity, BMI 36.8. 20.History of [place]-en-Y gastric bypass. 21.History of gastric ulcer. 22.History of degenerative joint disease. 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 24.History of peripheral neuropathy, diabetic. 25.Colostomy. 26.Decubitus ulcer on the back on wound VAC. 27.History of bowel resection. 28.History of anxiety, depression. 29.Remote history of nicotine dependence. 30.FULL CODE. RECOMMENDATIONS AND DISCUSSION: In this 68-year-old woman who presented with multiple complex medical issues, we will monitor the patient closely, continue the current medications, management and symptomatic treatment. Continue the antibiotics. Closely monitor. Otherwise continue the rest of medications. Guarded prognosis. Further recommendations to follow. MMODL / IJN: [id number] /
[2019-08-27] MEDS: HYDROcodone/APAP 10-325MG 1 EACH TAB PO PRN ×2 (05:21→15:43)
[2019-08-27 06:05] LABS: Glucose,Whole Blood 219 mg/dL (75-99)
[2019-08-27 06:49] LABS: Basophils % (A) 1 %; Eosinophils # (A) 0.3 k/uL (0-0.7); Eosinophils % (A) 5 %; HCT 25.8 % (34.0-46.0); Hypochromasia Marked; Lymphocytes # (A) 1.3 k/uL (1.0-4.8); Lymphocytes % (A) 21 %; MCHC 30.8 g/dL (31.0-37.0); MCV 97.5 fL (80.0-100.0); Monocytes # (A) 0.2 k/uL (0-1.0); Monocytes % (A) 3 %; Neutrophils # (A) 4.4 k/uL (1.3-7.7); Neutrophils % (A) 69 %; Platelet Count 344 k/uL (150-450); RBC 2.65 m/uL (3.80-5.40); RDW 15.3 % (11.5-15.5); WBC 6.4 k/uL (3.8-10.6)
[2019-08-27 07:01] LABS: Calcium 8.6 mg/dL (8.4-10.2); Potassium 4.7 mmol/L (3.5-5.1)
[2019-08-27] MEDS ORDERED: LEVOFLOXACIN 750 MG TAB PO SCH (09:00)
[2019-08-27] MEDS: HEPARIN SODIUM,PORCINE 5,000 UNIT/ML 1 ML VIAL SQ SCH ×3 (09:25→23:19)
[2019-08-27] MEDS: PANTOPRAZOLE 40 MG/10 ML VIAL IVP SCH (09:25)
[2019-08-27] MEDS: DULoxetine HCL 20 MG CAPSULE.DR PO SCH ×2 (09:26→21:08)
[2019-08-27] MEDS: MORPHINE SULFATE ER 15 MG TABLET PO SCH ×2 (09:26→19:23)
[2019-08-27] MEDS: LORATADINE 10 MG TAB PO SCH (09:26)
[2019-08-27] MEDS: metFORMIN 500 MG TAB PO SCH ×2 (09:26→19:23)
[2019-08-27] MEDS: SODIUM BICARBONATE TAB 650 MG TAB PO SCH ×2 (09:28→21:08)
[2019-08-27] MEDS: amLODIPine 10 MG TAB PO SCH (09:28)
[2019-08-27] MEDS: POTASSIUM CHLORIDE ER 10 MEQ TAB.ER.PRT PO SCH (09:28)
[2019-08-27] MEDS: LISINOPRIL 20 MG TAB PO SCH (09:28)
[2019-08-27] MEDS: FUROSEMIDE 20 MG TAB PO SCH (09:28)
[2019-08-27] MEDS: METHOCARBAMOL 500 MG TAB PO SCH ×4 (09:29→23:19)
[2019-08-27] MEDS: MUPIROCIN 2% OINT 22 GM TUBE TOPICAL SCH ×2 (09:29→21:08)
--- NOTE | 2019-08-27 10:11 | PN ---
PROGRESS NOTE DATE OF SERVICE: 08/26/2019 REASON FOR FOLLOWUP: Fever, likely urinary tract infection. INTERVAL HISTORY: The patient is currently afebrile. Patient is breathing comfortably. Patient denies having any chest pain, shortness of breath or cough. No abdominal pain, no diarrhea. PHYSICAL EXAMINATION: Blood pressure is 113/56, pulse of 87, temperature 98.3, she is 98% on room air. General description is an elderly female lying in bed in no distress respiratory system: Unlabored breathing clear to auscultation anteriorly heart S1, S2. Regular rate and rhythm no tenderness. LABS: Hemoglobin 8.4, white count 6.3, BUN of 25, creatinine 1.0 urine showing gram-negative, blood culture has been negative so far. DIAGNOSTIC IMPRESSION AND PLAN: Patient admitted to the hospital with fever, source is likely gram-negative urinary tract infection. The patient is currently on oral Levaquin because of multiple antibiotic allergy, which is fever and white count has responded. We will wait for the culture to finalize and continue supportive care. MMODL / IJN: [id number] /
[2019-08-27 11:30] VITALS: BMI 35.9
[2019-08-27] MEDS: MENTHOL-ZINC OXIDE OINT 113 GM TUBE TOPICAL SCH ×3 (11:45→21:09)
[2019-08-27 11:51] LABS: Glucose,Whole Blood 161 mg/dL (75-99)
--- NOTE | 2019-08-27 12:44 | P.CONS ---
History of Present Illness - Reason for Consult Consult date: 08/27/19 Wound care - History of Present Illness This is a 68-year-old pleasant female who is seen in the wound care center regularly being seen on [address] for a nonhealing ulceration to the coccyx. Patient has a pressure ulcer stage III of the sacral region. Currently she is seen in the wound care center weekly. Patient has a wound VAC in place with a hydrocolloid dressing to the periwound. Patient has medical history significant for atrial fibrillation with history of atrial ablation, diabetes, DVT, fibromyalgia, hypertension, hyperlipidemia, history of ESBL and MRSA and VRE. Review of Systems Review Of Systems: Constitutional: No fever, no chills, no night sweats. No weight change. No weakness, fatigue or lethargy. No daytime sleepiness. Integumentary:reports wounds, no lesions. No rash or pruritus. No unusual bruising. No change in hair or nails. Past Medical History Past Medical History: Atrial Fibrillation, Diabetes Mellitus, Deep Vein Thrombosis (DVT), Fibromyalgia, GERD/Reflux, GI Bleed, Hyperlipidemia, Hypertension, Pneumonia, Renal Disease, Skin Disorder, Sleep Apnea/CPAP/BIPAP, Supraventricular Tachycardia (SVT), Vascular Disorder Additional Past Medical History / Comment(s): Chronic blood loss -anemia, chronic stage III renal failure, morbid obesity, DVT lt lower leg w/ prev IVC filter in place, dermatitis, gastric ulcer w/ Clinton-en-Y gastric bypass, chronic lower back pain,hx severe sepsis w/ septic shock/septicemia w/ MRSA, hemorrhoids, cellulitis of LLE, dysphagia, falls, muscle weakness, bilat tinnitus, UTI. peripheral neuropathy (bilat hands/feet), migraines, eczema, sinus problems, lower GI bleed. SALGUERO, COLOSTOMY. DECUBITUS ULCER. Last Myocardial Infarction Date:: unknown History of Any Multi-Drug Resistant Organisms: MRSA, VRE Year Discovered:: 04/25/19 MRSA; 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 Source:: KNEE & Buttock-MRSA; Urine-VRE & ESBL Past Surgical History: Adenoidectomy, Bariatric Surgery, Bowel Resection, Cholecystectomy, Joint Replacement, Tonsillectomy, Tubal Ligation Additional Past Surgical History / Comment(s): Colostomy 2018, Gastric bypass/Clinton-en-Y in 2003, [place] filter 2000, teeth extraction, colonoscopy, EGD, hemorrhoidectomy, panniculectomy, D&C, hystoscopy x 2, LT KNEE replaced 2005-MRSA infection-hardware removed/cemented then replaced again, ORIF L hip repair, total R hip REPLACEMENT, bilat heel spurs removed, bilat CTR, infusaport insertion - since removed. Past Anesthesia/Blood Transfusion Reactions: Blood Transfusion Reaction Additional Past Anesthesia/Blood Transfusion Reaction / Comm: Per chart unspecified reaction. Past Psychological History: Anxiety, Depression Additional Psychological History / Comment(s): Patient is now in extended care. No longer live independently. Does not have any significant family. Was a tobacco smoker stopping several years ago. She has history of smoking 1.5-2 pack per day for 27 years and quit in 1993. She drinks alcohol rarely. 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 Smoking Status: Former smoker Past Alcohol Use History: None Reported Additional Past Alcohol Use History / Comment(s): HX of smoking 2 ppd for 27 years, quit 1993. She drinks alcohol rarely. Past Drug Use History: None Reported Additional Drug Use History / Comment(s): . - Past Family History Father Family Medical History: Myocardial Infarction (NH) Additional Family Medical History / Comment(s): AT AGE 46-NH Mother Family Medical History: Diabetes Mellitus Additional Family Medical History / Comment(s): AT AGE 66 FROM COMPLICATIONS FROM DM Sister(s) Family Medical History: Diabetes Mellitus Brother(s) Family Medical History: Diabetes Mellitus Daughter(s) Family Medical History: Cancer Son(s) Family Medical History: No Reported History Medications and Allergies Home Medications Medication Instructions Recorded Confirmed Type Atorvastatin [Lipitor] 40 mg PO DAILY@199908/30/15 08/24/19 History Ferrous Sulfate [Iron (65 MG 325 mg PO DAILY@1400 04/11/19 08/24/19 History Elemental)] metFORMIN HCL [Glucophage] 500 mg PO BID 04/11/19 08/24/19 History DULoxetine HCL [Cymbalta] 20 mg PO BID 04/25/19 08/24/19 History Loratadine [Claritin] 10 mg PO DAILY@0600 04/25/19 08/24/19 History Acetaminophen Tab [Tylenol] 650 mg PO Q6H PRN 07/18/19 08/24/19 History Furosemide [Lasix] 20 mg PO DAILY@0600 07/18/19 08/24/19 History INSULIN LISPRO (HumaLOG) [humaLOG] See Protocol SQ BID@0500,2000 07/18/19 History Lisinopril 40 mg PO DAILY@0600 07/18/19 08/24/19 History Methocarbamol [Robaxin] 500 mg PO QID 07/18/19 08/24/19 History Mupirocin 2% Oint [Bactroban 2% 1 applic TOPICAL BID 07/18/19 08/24/19 History Oint] Pantoprazole Sodium [Protonix] 40 mg PO DAILY@0600 07/18/19 08/24/19 History Potassium Chloride ER [K-Dur 10] 10 meq PO DAILY@0600 07/18/19 08/24/19 History Hydrocodone/Acetaminophen [[place] 1 tab PO Q6H PRN #8 tab 07/20/19 08/24/19 Rx 10-325] Morphine Sulfate ER [Ms Contin] 15 mg PO BID@0700,1900 #6 tab 07/20/19 08/24/19 Rx Polyethylene Glycol 3350 [Miralax] 17 gm PO DAILY PRN #0 07/20/19 08/24/19 Rx Sennosides [Senokot] 17.2 mg PO DAILY PRN #0 07/20/19 08/24/19 Rx amLODIPine [Norvasc] 10 mg PO DAILY #30 tab 07/20/19 08/24/19 Rx hydrALAZINE HCL [Apresoline] 25 mg PO BID PRN #30 tab 07/20/19 08/24/19 Rx Multivitamins, Thera [Multivitamin 1 tab PO DAILY@0600 08/24/19 08/24/19 History (formulary)] Allergies Allergy/AdvReac Type Severity Reaction Status Date / Time adhesive tape Allergy Severe Rash/Hives Verified 08/24/19 19:20 cephalexin monohydrate Allergy Severe Rash/Hives Verified 08/24/19 19:20 [From Keflex] influenza virus vaccine, Allergy Severe Anaphylaxis Verified 08/24/19 19:20 specific [influenza virus vacc,specific] latex Allergy Severe Rash/Hives Verified 08/24/19 19:20 peanut Allergy Severe Anaphylaxis Verified 08/24/19 19:20 Penicillins Allergy Severe Swelling Verified 08/24/19 19:20 tetanus toxoid, adsorbed Allergy Intermediate Rash/Hives Verified 08/24/19 19:20 baclofen Allergy Unknown Verified 08/24/19 19:20 Influenza Virus Vaccines Allergy Anaphylaxis Verified 08/24/19 19:20 Physical Exam Vitals: Vital Signs Temp Pulse Resp BP Pulse Ox 08/27/19 08:00 72 18 08/27/19 06:49 98.8 F 72 18 126/65 97 08/26/19 23:00 78 18 119/59 98 08/26/19 16:00 98.3 F 87 15 117/56 98 Intake and Output 08/26/19 08/27/19 08/27/19 22:59 06:59 14:59 Intake Total 450 0 Output Total 450 1025 Balance 0 -1025 0 Intake: Oral 450 0 Output: Urine 450 1025 Other: Voiding Method Indwelling Catheter Indwelling Catheter Weight 95 kg 95 kg Physical exam: General Appearance: Alert, cooperative, no distress, appears stated age. Skin: Wound measures 3.4 x 1.6 x 1.8 cm fat layer exposure with undermining from 12:00 to 10:00 at a maximum distance of 1.5 cm. There is a medium amount of serosanguineous drainage. The wound margins distinct without line attached the wound VAC. There is adherent Slough, excoriation, scarring and maceration. Minimal wound granulation seen throughout. all other Skin color, texture, tugor normal, no rashes or lesions. Neurologic: Alert oriented x3 Results CBC & Chem 7: 08/27/19 06:15 08/27/19 06:15 Labs: Abnormal Lab Results - Last 24 Hours (Table) 08/26/19 08/26/19 08/27/19 Range/Units 16:56 20:03 06:03 RBC (3.80-5.40) m/uL Hgb (11.4-16.0) gm/dL Hct (34.0-46.0) % MCHC (31.0-37.0) g/dL Chloride (98-107) mmol/L Carbon Dioxide (22-30) mmol/L BUN (7-17) mg/dL Glucose (74-99) mg/dL POC Glucose (mg/dL) 149 H 166 H 219 H (75-99) mg/dL 08/27/19 08/27/19 08/27/19 Range/Units 06:15 06:15 11:47 RBC 2.65 L (3.80-5.40) m/uL Hgb 8.0 L (11.4-16.0) gm/dL Hct 25.8 L (34.0-46.0) % MCHC 30.8 L (31.0-37.0) g/dL Chloride 114 H (98-107) mmol/L Carbon Dioxide 18 L (22-30) mmol/L BUN 22 H (7-17) mg/dL Glucose 185 H (74-99) mg/dL POC Glucose (mg/dL) 161 H (75-99) mg/dL Microbiology - Last 24 Hours (Table) 08/24/19 14:45 Blood Culture - Preliminary Blood No Growth after 48 hours Assessment and Plan (1) Pressure ulcer of sacral region, stage 3 Current Visit: Yes Status: Acute Code(s): L89.153 - PRESSURE ULCER OF SACRAL REGION, STAGE 3 SNOMED Code(s): 499494892 (2) Type 2 diabetes mellitus with other skin ulcer Current Visit: Yes Status: Acute Code(s): E11.622 - TYPE 2 DIABETES MELLITUS WITH OTHER SKIN ULCER; L98.499 - NON-PRESSURE CHRONIC ULCER OF SKIN OF SITES W UNSP SEVERITY SNOMED Code(s): 970318816 Plan: Continue with wound VAC black foam 150 mmHg continuous suction. Apply DuoDERM to the periwound. Turn every 2 hours, assess services for appropriate offloading. Continue with weekly wound care appointments. Thank you kindly for the consultation. Any questions please contact the wound care center DNP note has been reviewed and discussed with Dr. Perez and the impression and plan of care has been directed as dictated.
[2019-08-27] MEDS: MULTIVITAMINS, THERA 1 EACH TAB PO SCH (19:23)
[2019-08-27] MEDS: FERROUS SULFATE 325 MG TAB PO SCH (19:23)
[2019-08-27] MEDS: ATORVASTATIN 40 MG TAB PO SCH (21:08)
--- NOTE | 2019-08-27 21:42 | PN ---
PROGRESS NOTE DATE OF SERVICE: 08/27/2019 REASON FOR FOLLOWUP: 1. Urinary tract infection. 2. Sacral wound. INTERVAL HISTORY: The patient is currently afebrile. The patient has been breathing comfortably. The patient denies having any chest pain or shortness of breath or cough. No nausea, no vomiting and no diarrhea. PHYSICAL EXAMINATION: Blood pressure is 126/65 with a pulse of 72, temperature of 98.8. She is 97% on room air. General description is an elderly female lying in bed in no distress. RESPIRATORY SYSTEM: Unlabored breathing. Clear to auscultation anteriorly. HEART: S1, S2. Regular rate and rhythm. ABDOMEN: Soft. No tenderness. LABS: Urine is showing a Gram-negative. Hemoglobin is 8 with a white count of 6.4, BUN of 22, creatinine 1.03. DIAGNOSTIC IMPRESSION AND PLAN: Patient with a fever. Source is likely catheter-associated urinary tract infection. Coffey catheter has finally been changed. Initial urine was showing a Gram-negative. The patient is covered with Levaquin because of her allergy; to continue while waiting for sensitivity and monitor clinical course closely. MMODL / IJN: [id number] /
[2019-08-28 07:08] LABS: Glucose,Whole Blood 137 mg/dL (75-99)
--- NOTE | 2019-08-28 08:17 | P.PN ---
Subjective Progress Note Date: 08/27/19 Principal diagnosis: This is a 68-year-old female who was recently admitted with acute urinary tract infection, sepsis, and change in mental status and is being closely monitored. Infectious disease is following. Wound care was consulted as the patient does have a wound VAC. Patient's mentation is slightly improved and is responding appropriately to commands. Patient is on oral antibiotics in the form of Levaquin and will continue at this time. Currently patient is afebrile. Patient denies any chest pain, shortness of breath, or palpitations. She denies any nausea or vomiting and is tolerating diet. Patient states that she resides at [facility] and will return there upon discharge. Objective - Vital Signs Vital signs: Vital Signs Temp 98.8 F 08/27/19 06:49 Pulse 72 08/27/19 08:00 Resp 18 08/27/19 08:00 BP 126/65 08/27/19 06:49 Pulse Ox 97 08/27/19 06:49 Intake & Output 08/26/19 08/27/19 08/27/19 18:59 06:59 18:59 Intake Total 240 450 0 Output Total 1100 1475 Balance -860 -1025 0 Weight 95 kg 95 kg Intake: Oral 240 450 0 Output: Urine 1100 1475 Other: Voiding Method Indwelling Catheter Indwelling Catheter - Exam Gen: This is a 68-year-old female sitting up in bed alert, awake, and oriented 2. Temp is 98.8F, pulse is 72, respirations are 18, blood pressure is 126/65, oxygen saturation is 97% on room air. HEENT: Head is atraumatic, normocephalic. Pupils equal, round. Sclerae is anicteric. NECK: Supple. No JVD. No lymphadenopathy. No thyromegaly. LUNGS: Diminished breath sounds at the bases with a few scattered rhonchi noted. No intercostal retractions. HEART: S1, S2 are muffled ABDOMEN: Soft. Bowel sounds are present. No masses. No tenderness. EXTREMITIES: No pedal edema. No calf tenderness. Left [id number] amputation noted, right lower extremity covered with Aquacel NEUROLOGICAL: Patient is awake, alert and oriented x2. Cranial nerves 2 through 12 are grossly intact. - Labs CBC & Chem 7: 08/27/19 06:15 08/27/19 06:15 Labs: Abnormal Lab Results - Last 24 Hours (Table) 08/26/19 08/26/19 08/27/19 Range/Units 16:56 20:03 06:03 RBC (3.80-5.40) m/uL Hgb (11.4-16.0) gm/dL Hct (34.0-46.0) % MCHC (31.0-37.0) g/dL Chloride (98-107) mmol/L Carbon Dioxide (22-30) mmol/L BUN (7-17) mg/dL Glucose (74-99) mg/dL POC Glucose (mg/dL) 149 H 166 H 219 H (75-99) mg/dL 08/27/19 08/27/19 08/27/19 Range/Units 06:15 06:15 11:47 RBC 2.65 L (3.80-5.40) m/uL Hgb 8.0 L (11.4-16.0) gm/dL Hct 25.8 L (34.0-46.0) % MCHC 30.8 L (31.0-37.0) g/dL Chloride 114 H (98-107) mmol/L Carbon Dioxide 18 L (22-30) mmol/L BUN 22 H (7-17) mg/dL Glucose 185 H (74-99) mg/dL POC Glucose (mg/dL) 161 H (75-99) mg/dL Microbiology - Last 24 Hours (Table) 08/24/19 14:45 Blood Culture - Preliminary Blood No Growth after 48 hours Assessment and Plan Assessment: Acute sepsis, present on admission, possibly secondary to urinary tract infection related to chronic indwelling Coffey catheter or decubitus ulcers Gram-negative bacilli growing from a culture Increased WBC Anemia, normocytic of chronic disease Increased creatinine with acute renal failure, acute tubular necrosis with prerenal renal failure Gait dysfunction History of atrial fibrillation chronic Diabetes mellitus type 2 History of deep vein thrombosis History of fibromyalgia next line history of gastroesophageal reflux disease History of gastrointestinal bleed Hypertension Hyperlipidemia next line history of sleep apnea next line history of supraventricular tachycardia Chronic blood loss anemia Chronic kidney disease stage III, baseline History of morbid obesity, BMI of 36.8 History of Clinton-en-Y gastric bypass History of gastric ulcer History of degenerative joint disease History of MRSA as well as VRE with sepsis in the past History of peripheral neuropathy, diabetic Colostomy Decubitus ulcer on the back and wound VAC History of bowel resection next line history of anxiety, depression Remote history of nicotine dependence Full code Recommendations and discussion: Recommend to continue current medications, management, and symptomatic treatment. She will continue on oral Levaquin at this time. Infectious disease is following. Wound care consulted. Will continue to closely monitor. Due to multiple complex medical issues prognosis is guarded. Further recommendations to follow. Case management and social work are following to assist with any discharge planning needs once patient is stabilized.
[2019-08-28] MEDS: MORPHINE SULFATE ER 15 MG TABLET PO SCH (08:32)
[2019-08-28] MEDS: HEPARIN SODIUM,PORCINE 5,000 UNIT/ML 1 ML VIAL SQ SCH (09:54)
[2019-08-28] MEDS: LISINOPRIL 20 MG TAB PO SCH (09:56)
[2019-08-28] MEDS: SODIUM BICARBONATE TAB 650 MG TAB PO SCH (09:56)
[2019-08-28] MEDS: DULoxetine HCL 20 MG CAPSULE.DR PO SCH (09:56)
[2019-08-28] MEDS: FUROSEMIDE 20 MG TAB PO SCH (09:56)
[2019-08-28] MEDS: amLODIPine 10 MG TAB PO SCH (09:56)
[2019-08-28] MEDS: metFORMIN 500 MG TAB PO SCH (09:57)
[2019-08-28] MEDS: LORATADINE 10 MG TAB PO SCH (09:57)
[2019-08-28] MEDS: METHOCARBAMOL 500 MG TAB PO SCH ×2 (09:57→12:58)
[2019-08-28] MEDS: POTASSIUM CHLORIDE ER 10 MEQ TAB.ER.PRT PO SCH (09:57)
[2019-08-28] MEDS: MUPIROCIN 2% OINT 22 GM TUBE TOPICAL SCH (10:01)
[2019-08-28] MEDS: MENTHOL-ZINC OXIDE OINT 113 GM TUBE TOPICAL SCH (10:01)
[2019-08-28 10:45] LABS: Basophils # (A) 0.1 k/uL (0-0.2); Basophils % (A) 1 %; Eosinophils # (A) 0.3 k/uL (0-0.7); Eosinophils % (A) 5 %; HCT 26.6 % (34.0-46.0); HGB 7.9 gm/dL (11.4-16.0); Hypochromasia Marked; Lymphocytes # (A) 1.3 k/uL (1.0-4.8); Lymphocytes % (A) 24 %; MCH 28.7 pg (25.0-35.0); MCHC 29.8 g/dL (31.0-37.0); MCV 96.2 fL (80.0-100.0); Mean Platelet Volume 7.2; Monocytes # (A) 0.2 k/uL (0-1.0); Monocytes % (A) 4 %; Neutrophils # (A) 3.6 k/uL (1.3-7.7); Neutrophils % (A) 64 %; Platelet Count 332 k/uL (150-450); RBC 2.76 m/uL (3.80-5.40); RDW 15.6 % (11.5-15.5); WBC 5.6 k/uL (3.8-10.6)
[2019-08-28 11:00] LABS: Calcium 8.8 mg/dL (8.4-10.2); Potassium 4.6 mmol/L (3.5-5.1)
[2019-08-28 11:28] LABS: Glucose,Whole Blood 227 mg/dL (75-99)
[2019-08-28 11:58] VITALS: BP 125/57; PULSE 98; RESP 19; TEMP 99.4
[2019-08-28] MEDS: PANTOPRAZOLE 40 MG/10 ML VIAL IVP SCH (12:58)
--- NOTE | 2019-08-28 13:05 | P.DS ---
Providers Date of admission: 08/24/19 18:11 Expected date of discharge: 08/28/19 Attending physician: Haritha Lara Consults: 08/24/19 16:49 Consult Physician Routine Consulting Provider: Merary Kendrick Consult Reason/Comments: sepsis Do you want consulting provider notified?: Yes Primary care physician: [facility] Course: Final diagnosis Acute sepsis, present on admission, possibly secondary to urinary tract infection related to chronic indwelling Coffey catheter or decubitus ulcers Gram-negative bacilli growing from a culture Increased WBC Anemia, normocytic of chronic disease Increased creatinine with acute renal failure, acute tubular necrosis with prerenal renal failure Gait dysfunction History of atrial fibrillation chronic Diabetes mellitus type 2 History of deep vein thrombosis History of fibromyalgia history of gastroesophageal reflux disease History of gastrointestinal bleed Hypertension Hyperlipidemia history of sleep apnea history of supraventricular tachycardia Chronic blood loss anemia Chronic kidney disease stage III, baseline History of morbid obesity, BMI of 36.8 History of Clinton-en-Y gastric bypass History of gastric ulcer History of degenerative joint disease History of MRSA as well as VRE with sepsis in the past History of peripheral neuropathy, diabetic Colostomy Decubitus ulcer on the back and wound VAC History of bowel resection history of anxiety, depression Remote history of nicotine dependence Full code Discharge disposition Patient is being discharged in a stable condition with guarded prognosis to [facility] as she resides there. Patient will continue on oral Levaquin 750 mg every 48 hours for 5 doses and then may discontinue. Total time taken is 35 minutes. History of present illness This is a 68-year-old female who was recently admitted for acute urinary tract infection, sepsis, change in mental status and was being closely monitored. Infectious disease was following. Patient is a chronic indwelling Coffey catheter and was replaced during hospitalization with initial urine culture showing gram-negative bacilli. Repeat urine cultures thus far are negative. Patient's mentation and sensorium has improved and patient will continue on oral antibiotics in the form of Levaquin in the outpatient setting upon discharge. Patient will also continue with wound care and the wound VAC in the outpatient setting. Currently patient denies any chest pain, shortness of breath, or palpitations. Patient is afebrile over 24 hours. Patient denies any nausea or vomiting and has been tolerating diet. Guarded prognosis. On exam vital signs are stable. Temp is 97.4F, pulse is 87, respirations are 17, blood pressure is 135/69, oxygen saturation is 98% on room air. Cardio S1, S2 are muffled. Respiratory system shows diminished breath sounds at the bases with a few scattered rhonchi noted. Abdomen is soft and nontender. Nervous system shows no focal deficits. Please refer to medication reconciliation sheet for a list of medications. Patient Condition at Discharge: Fair Plan - Discharge Summary New Discharge Prescriptions: New Menthol-Zinc Oxide Oint [Calmoseptine Oint] 1 applic TOPICAL TID applic Levofloxacin [Levaquin] 750 mg PO Q48H #5 tab Sodium Bicarbonate Tab 650 mg PO BID tab Continue Atorvastatin [Lipitor] 40 mg PO DAILY@1999 metFORMIN HCL [Glucophage] 500 mg PO BID Ferrous Sulfate [Iron (65 MG Elemental)] 325 mg PO DAILY@1400 DULoxetine HCL [Cymbalta] 20 mg PO BID Loratadine [Claritin] 10 mg PO DAILY@0600 Acetaminophen Tab [Tylenol] 650 mg PO Q6H PRN PRN Reason: Pain Methocarbamol [Robaxin] 500 mg PO QID INSULIN LISPRO (HumaLOG) [humaLOG] See Protocol SQ BID@0500,1999 Mupirocin 2% Oint [Bactroban 2% Oint] 1 applic TOPICAL BID Pantoprazole Sodium [Protonix] 40 mg PO DAILY@0600 Potassium Chloride ER [K-Dur 10] 10 meq PO DAILY@0600 Lisinopril 40 mg PO DAILY@0600 Furosemide [Lasix] 20 mg PO DAILY@0600 hydrALAZINE HCL [Apresoline] 25 mg PO BID PRN #30 tab PRN Reason: Blood Pressure - High amLODIPine [Norvasc] 10 mg PO DAILY #30 tab Polyethylene Glycol 3350 [Miralax] 17 gm PO DAILY PRN #0 PRN Reason: Constipation Sennosides [Senokot] 17.2 mg PO DAILY PRN #0 PRN Reason: Constipation Multivitamins, Thera [Multivitamin (formulary)] 1 tab PO DAILY@0600 Morphine Sulfate ER [Ms Contin] 15 mg PO BID@0700,1900 #6 tab Hydrocodone/Acetaminophen [[place] 10-325] 1 tab PO Q6H PRN #8 tab PRN Reason: Pain Discharge Medication List Atorvastatin [Lipitor] 40 mg PO DAILY@199908/30/15 [History] Ferrous Sulfate [Iron (65 MG Elemental)] 325 mg PO DAILY@1400 04/11/19 [History] metFORMIN HCL [Glucophage] 500 mg PO BID 04/11/19 [History] DULoxetine HCL [Cymbalta] 20 mg PO BID 04/25/19 [History] Loratadine [Claritin] 10 mg PO DAILY@0600 04/25/19 [History] Acetaminophen Tab [Tylenol] 650 mg PO Q6H PRN 07/18/19 [History] Furosemide [Lasix] 20 mg PO DAILY@0600 07/18/19 [History] INSULIN LISPRO (HumaLOG) [humaLOG] See Protocol SQ BID@0500,199907/18/19 [History] Lisinopril 40 mg PO DAILY@0607/18/19 [History] Methocarbamol [Robaxin] 500 mg PO QID 07/18/19 [History] Mupirocin 2% Oint [Bactroban 2% Oint] 1 applic TOPICAL BID 07/18/19 [History] Pantoprazole Sodium [Protonix] 40 mg PO DAILY@0600 07/18/19 [History] Potassium Chloride ER [K-Dur 10] 10 meq PO DAILY@0600 07/18/19 [History] Polyethylene Glycol 3350 [Miralax] 17 gm PO DAILY PRN #0 07/20/19 [Rx] Sennosides [Senokot] 17.2 mg PO DAILY PRN #0 07/20/19 [Rx] amLODIPine [Norvasc] 10 mg PO DAILY #30 tab 07/20/19 [Rx] hydrALAZINE HCL [Apresoline] 25 mg PO BID PRN #30 tab 07/20/19 [Rx] Multivitamins, Thera [Multivitamin (formulary)] 1 tab PO DAILY@0600 08/24/19 [History] Hydrocodone/Acetaminophen [[place] 10-325] 1 tab PO Q6H PRN #8 tab 08/28/19 [Rx] Levofloxacin [Levaquin] 750 mg PO Q48H #5 tab 08/28/19 [Rx] Menthol-Zinc Oxide Oint [Calmoseptine Oint] 1 applic TOPICAL TID applic 08/28/19 [Rx] Morphine Sulfate ER [Ms Contin] 15 mg PO BID@0700,1900 #6 tab 08/28/19 [Rx] Sodium Bicarbonate Tab 650 mg PO BID tab 08/28/19 [Rx] Follow up Appointment(s)/Referral(s): Carlo Frederick MD [Primary Care Provider] - 1-2 days David Carl DO [Doctor of Osteopathic Medicine] - 1 Week (Ear troubles (left ear)) Activity/Diet/Wound Care/Special Instructions: Patient is going to [facility] Continue current diet Activity as tolerated Follow-up with primary care provider upon discharge Continue with Levaquin oral every 48 hours for a total of 5 doses and then may discontinue Continue with wound care May use Aquacel to the right lower extremity Discharge Disposition: TRANSFER TO SNF/ECF
--- NOTE | 2019-08-28 20:15 | PN ---
PROGRESS NOTE DATE OF SERVICE: 08/28/2019 REASON FOR FOLLOWUP: Urinary tract infection. INTERVAL HISTORY: The patient was seen on rounds this morning. The patient has been afebrile, has been breathing comfortably. No chest pain or cough. No nausea or vomiting. No abdominal pain or diarrhea. Coffey catheter has been changed. Did have overall clear urine output. PHYSICAL EXAMINATION: Blood pressure 125/57 with a pulse of 98, temperature of 99.4. She is 98% on room air. General description is an elderly female lying in bed in no distress. RESPIRATORY SYSTEM: Unlabored breathing. Clear to auscultation anteriorly. HEART: S1, S2. Regular rate and rhythm. ABDOMEN: Soft. No tenderness. LABS: Hemoglobin 7.9, white count 5.6, creatinine 0.96. Urine is still showing Gram-negative bacilli. DIAGNOSTIC IMPRESSION AND PLAN: Patient with Gram-negative urinary tract infection. The patient seems to have clinically responded to Levaquin. The patient will continue to finish her course of therapy. Continue with supportive care. MMODL / IJN: [id number] /
== END 2019-08-28 14:21 | DRG 698 ==
LOC: EC 14:38 → 3SCARD 18:11 → 5NMEDONC 08-27 12:55
PROVIDERS: ADMIT Hospitalist; ATTEND Hospitalist
DX: T83.511A Infection and inflammatory reaction due to indwelling urethral catheter, initial encounter (principal); L89.153 Pressure ulcer of sacral region, stage 3; A41.52 Sepsis due to Pseudomonas; A41.02 Sepsis due to Methicillin resistant Staphylococcus aureus; R65.20 Severe sepsis without septic shock; G93.41 Metabolic encephalopathy; N17.0 Acute kidney failure with tubular necrosis; I48.20 Chronic atrial fibrillation, unspecified; N39.0 Urinary tract infection, site not specified; D50.0 Iron deficiency anemia secondary to blood loss (chronic); D63.8 Anemia in other chronic diseases classified elsewhere; E11.22 Type 2 diabetes mellitus with diabetic chronic kidney disease; E11.42 Type 2 diabetes mellitus with diabetic polyneuropathy; E11.622 Type 2 diabetes mellitus with other skin ulcer; E66.01 Morbid (severe) obesity due to excess calories; E78.5 Hyperlipidemia, unspecified; I12.9 Hypertensive chronic kidney disease with stage 1 through stage 4 chronic kidney disease, or unspecified chronic kidney disease; L98.499 Non-pressure chronic ulcer of skin of other sites with unspecified severity; M79.7 Fibromyalgia; N18.3 Chronic kidney disease, stage 3 (moderate); Y84.6 Urinary catheterization as the cause of abnormal reaction of the patient, or of later complication, without mention of misadventure at the time of the procedure; Z68.36 Body mass index [BMI] 36.0-36.9, adult; Z79.84 Long term (current) use of oral hypoglycemic drugs; Z79.899 Other long term (current) drug therapy; Z82.49 Family history of ischemic heart disease and other diseases of the circulatory system; Z83.3 Family history of diabetes mellitus; Z86.14 Personal history of Methicillin resistant Staphylococcus aureus infection; Z86.19 Personal history of other infectious and parasitic diseases; Z86.718 Personal history of other venous thrombosis and embolism; Z87.01 Personal history of pneumonia (recurrent); Z87.11 Personal history of peptic ulcer disease; Z87.891 Personal history of nicotine dependence; Z88.1 Allergy status to other antibiotic agents; Z90.49 Acquired absence of other specified parts of digestive tract; Z93.3 Colostomy status; Z95.828 Presence of other vascular implants and grafts; Z96.641 Presence of right artificial hip joint; Z98.84 Bariatric surgery status; Z89.612 Acquired absence of left leg above knee; Z88.0 Allergy status to penicillin; Z88.7 Allergy status to serum and vaccine; Z88.8 Allergy status to other drugs, medicaments and biological substances; Z91.040 Latex allergy status; Z91.010 Allergy to peanuts; G47.30 Sleep apnea, unspecified; Z99.89 Dependence on other enabling machines and devices; F41.9 Anxiety disorder, unspecified; F32.9 Major depressive disorder, single episode, unspecified; R26.9 Unspecified abnormalities of gait and mobility; Z91.81 History of falling
CPT/HCPCS: 36415; 71045; 80048; 80053; 81001; 82533; 82550; 83605; 84484; 85025; 85610; 85730; 87040; 87077; 87086; 87186; 87502; 93005; 96361; 96365; 96372; 96375; 99291

== ENCOUNTER 2020-03-27 04:14 | Inpatient (IN) | payer MEDICARE, OTHER ==
[2020-03-27] MEDS ORDERED: ACETAMINOPHEN TAB 500 MG TAB PO STA (04:22)
[2020-03-27] MEDS ORDERED: VANCOMYCIN IV PER PHARMACY 1 EACH MISC MISCELLANE PRN (04:26)
[2020-03-27] MEDS: SODIUM CHLORIDE 0.9% 500 ML 500 ML IV SCH ×2 (04:30→05:47)
[2020-03-27] MEDS ORDERED: CLINDAMYCIN 600 MG in DEXTROSE 5% IN WATER 50 ML IVPB ONE ×2 (05:00)
--- NOTE | 2020-03-27 05:03 | ED ---
General Adult HPI - General Chief complaint: Altered Mental Status Stated complaint: altered mental status Time Seen by Provider: 03/27/20 04:16 Source: patient, EMS Mode of arrival: EMS Limitations: no limitations - History of Present Illness Initial comments: Rain is a 69-year-old female who presents the ER for metal watch for evaluation of fever, redness of her leg and altered mental status. Patient has a history of becoming altered when she has an infection. They report that she is just not herself. He noted that her heart was racing with heart rates in the 120s to 130s and a fever of 103 at the [facility]. I will patient is alert to name able to identify she's the hospital no that she came for [facility] but offers no complaints, just says she does not feel well. - Related Data Home Medications Medication Instructions Recorded Confirmed Atorvastatin [Lipitor] 40 mg PO DAILY@199908/30/15 08/24/19 Ferrous Sulfate [Iron (65 MG 325 mg PO DAILY@1400 04/11/19 08/24/19 Elemental)] metFORMIN HCL [Glucophage] 500 mg PO BID 04/11/19 08/24/19 DULoxetine HCL [Cymbalta] 20 mg PO BID 04/25/19 08/24/19 Loratadine [Claritin] 10 mg PO DAILY@59904/25/19 08/24/19 Acetaminophen Tab [Tylenol] 650 mg PO Q6H PRN 07/18/19 08/24/19 Furosemide [Lasix] 20 mg PO DAILY@59907/18/19 08/24/19 INSULIN LISPRO (HumaLOG) [humaLOG] See Protocol SQ BID@0500,199907/18/19 08/24/19 Mupirocin 2% Oint [Bactroban 2% 1 applic TOPICAL BID 07/18/19 08/24/19 Oint] Pantoprazole Sodium [Protonix] 40 mg PO DAILY@59907/18/19 08/24/19 Potassium Chloride ER [K-Dur 10] 10 meq PO DAILY@59907/18/19 08/24/19 lisinopriL 40 mg PO DAILY@0607/18/19 08/24/19 methocarbamoL [Robaxin] 500 mg PO QID 07/18/19 08/24/19 Multivitamins, Thera [Multivitamin 1 tab PO DAILY@0600 08/24/19 08/24/19 (formulary)] Previous Rx's Medication Instructions Recorded Polyethylene Glycol 3350 [Miralax] 17 gm PO DAILY PRN #0 07/20/19 Sennosides [Senokot] 17.2 mg PO DAILY PRN #0 07/20/19 amLODIPine [Norvasc] 10 mg PO DAILY #30 tab 07/20/19 hydrALAZINE HCL [Apresoline] 25 mg PO BID PRN #30 tab 07/20/19 Hydrocodone/Acetaminophen [Kennedy 1 tab PO Q6H PRN #8 tab 08/28/19 10-325] Levofloxacin [Levaquin] 750 mg PO Q48H #5 tab 08/28/19 Menthol-Zinc Oxide Oint 1 applic TOPICAL TID applic 08/28/19 [Calmoseptine Oint] Morphine Sulfate ER [Ms Contin] 15 mg PO BID@0700,1900 #6 tab 08/28/19 Sodium Bicarbonate Tab 650 mg PO BID tab 08/28/19 Allergies Allergy/AdvReac Type Severity Reaction Status Date / Time adhesive tape Allergy Severe Rash/Hives Verified 03/27/20 06:39 cephalexin monohydrate Allergy Severe Rash/Hives Verified 03/27/20 06:39 [From Keflex] influenza virus vaccine, Allergy Severe Anaphylaxis Verified 03/27/20 06:39 specific [influenza virus vacc,specific] latex Allergy Severe Rash/Hives Verified 03/27/20 06:39 peanut Allergy Severe Anaphylaxis Verified 03/27/20 06:39 Penicillins Allergy Severe Swelling Verified 03/27/20 06:39 tetanus toxoid, adsorbed Allergy Intermediate Rash/Hives Verified 03/27/20 06:39 baclofen Allergy Unknown Verified 03/27/20 06:39 Influenza Virus Vaccines Allergy Anaphylaxis Verified 03/27/20 06:39 Review of Systems ROS Statement: Those systems with pertinent positive or pertinent negative responses have been documented in the HPI. ROS Other: All systems not noted in ROS Statement are negative. Past Medical History Past Medical History: Atrial Fibrillation, Diabetes Mellitus, Deep Vein Thrombosis (DVT), Fibromyalgia, GERD/Reflux, GI Bleed, Hyperlipidemia, Hypertension, Pneumonia, Renal Disease, Skin Disorder, Sleep Apnea/CPAP/BIPAP, Supraventricular Tachycardia (SVT), Vascular Disorder Additional Past Medical History / Comment(s): Chronic blood loss -anemia, chronic stage III renal failure, morbid obesity, DVT lt lower leg w/ prev IVC filter in place, dermatitis, gastric ulcer w/ [place]-en-Y gastric bypass, chronic lower back pain,hx severe sepsis w/ septic shock/septicemia w/ MRSA, hemorrhoids, cellulitis of LLE, dysphagia, falls, muscle weakness, bilat tinnitus, UTI. peripheral neuropathy (bilat hands/feet), migraines, eczema, sinus problems, lower GI bleed. SALGUERO, COLOSTOMY. DECUBITUS ULCER. Last Myocardial Infarction Date:: unknown History of Any Multi-Drug Resistant Organisms: MRSA, VRE Date of last positivie culture/infection: 08/27/19 MRSA; 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 Source:: URINE-MRSA; Urine-VRE & ESBL Past Surgical History: Adenoidectomy, Bariatric Surgery, Bowel Resection, Cholecystectomy, Joint Replacement, Tonsillectomy, Tubal Ligation Additional Past Surgical History / Comment(s): Colostomy 2018, Gastric bypass/ [place]-en-Y in 2003, [place] filter 2000, teeth extraction, colonoscopy, EGD, hemorrhoidectomy, panniculectomy, D&C, hystoscopy x 2, LT KNEE replaced 2005- MRSA infection-hardware removed/cemented then replaced again, ORIF L hip repair, total R hip REPLACEMENT, bilat heel spurs removed, bilat CTR, infusaport insertion - since removed. Past Anesthesia/Blood Transfusion Reactions: Blood Transfusion Reaction Additional Past Anesthesia/Blood Transfusion Reaction / Comment(s): Per chart unspecified reaction. Past Psychological History: Anxiety, Depression Past Alcohol Use History: None Reported Past Drug Use History: None Reported - Past Family History Father Family Medical History: Myocardial Infarction ([place]) Additional Family Medical History / Comment(s): AT AGE 46-[place] Mother Family Medical History: Diabetes Mellitus Additional Family Medical History / Comment(s): AT AGE 66 FROM COMPLICATIONS FROM DM Sister(s) Family Medical History: Diabetes Mellitus Brother(s) Family Medical History: Diabetes Mellitus Daughter(s) Family Medical History: Cancer Son(s) Family Medical History: No Reported History General Exam - General Exam Comments Initial Comments: Physical Exam GENERAL: Chronically ill appearing, obese female, toxic appearance HENT: Normocephalic, Atraumatic. EYES: PERRL, EOMI No ocnjunctival pallor PULMONARY: Unlabored respirations. No audible rales rhonchi or wheezing was noted. CARDIOVASCULAR: tachycardic, regular, ABDOMEN: Soft and nontender with normal bowel sounds. Colostomy in LLQ, dark output noted No tenderness to palpation SKIN: Erythema and induration of right lower extremity, borders of cellulitis were marked : Deferred NEUROLOGIC: Alert and oriented to person place Moving all extremities MUSCULOSKELETAL: Left BKA PSYCHIATRIC: Agitated Limitations: no limitations Course Vital Signs 03/27/20 03/27/20 03/27/20 04:16 05:02 05:43 Temperature 103 F H 101.1 F H 99.5 F Pulse Rate 121 H 121 H 110 H Respiratory 19 20 19 Rate Blood Pressure 75/47 103/56 97/52 O2 Sat by Pulse 95 99 98 Oximetry EKG Findings - EKG Comments: EKG Findings:: EKG was obtained due to tachycardia, EKG was obtained at 4:22 AM, rate is 123 rhythm is sinus tach with a leftward axis, MA mildly prolonged 170, QRS 68, QTC 426 her is no acute ST elevations or depressions no evidence of acute ischemia or infarction Procedures - Sepsis Sepsis Focused Exam #1 Time Sepsis Criteria Met: 04:30 Sepsis Focused Exam Date: 03/27/20 Sepsis Focused Exam Time: 06:56 Sepsis Focused Exam Complete: Yes Vital Signs & RN Notes Reviewed: Yes Capillary Refill: < 2 Seconds: Fingers, Toes Peripheral Pulses: Absent: Posterior Tibialis (L), Dorsalis Pedis (L), Weak: Posterior Tibialis (R), Dorsalis Pedis (R), Normal: Radial (R), Radial (L) Skin Color: Erythema Respiratory Exam: normal lung sounds Cardiovascular Exam: regular rate Medical Decision Making - Medical Decision Making The patient was seen and evaluated Upon arrival patient is tachypneic tachycardic and febrile Septic order set was initiated The patient's history of congestive heart failure we will begin with 20cc/kg bolus based on ideal body weight of 50kg (1L bolus) followed by fluids at 130 Antipyretics were ordered Vancomycin and clindamycin were ordered for treatment of skin infection due to patient's multiple drug ALLERGIES Labs resulted multiple significant abnormalities including leukocytosis, improving but chronic anemia, acute kidney injury, mild lactic acidosis Patient's blood pressures were low on arrival but remained with a map greater than 65 Patient's fever improved, tachycardia resolved after antipyretics and fluids Patient care was discussed with Alka the mid-level provider for the [facility] hospitalist group who accepts the admission, she was advised that the patient is septic receiving antibiotics, IV fluids and will likely need a PICC line due to poor vascular access. - Lab Data Result diagrams: 03/27/20 04:46 03/27/20 04:46 Lab Results 03/27/20 03/27/20 03/27/20 Range/Units 04:46 04:46 04:46 WBC 11.6 H (3.8-10.6) k/uL RBC 3.36 L (3.80-5.40) m/uL Hgb 9.4 L (11.4-16.0) gm/dL Hct 30.8 L (34.0-46.0) % MCV 91.8 (80.0-100.0) fL MCH 27.9 (25.0-35.0) pg MCHC 30.4 L (31.0-37.0) g/dL RDW 16.4 H (11.5-15.5) % Plt Count 334 (150-450) k/uL Neutrophils % (Manual) 64 % Band Neutrophils % 21 % Lymphocytes % (Manual) 14 % Monocytes % (Manual) 1 % Neutrophils # (Manual) 9.80 H (1.3-7.7) k/uL Lymphocytes # (Manual) 1.62 (1.0-4.8) k/uL Monocytes # (Manual) 0.12 (0-1.0) k/uL Nucleated RBCs 0 (0-0) /100 WBC Manual Slide Review Performed Toxic Granulation Present Toxic Vacuolation Present Hypochromasia Moderate Anisocytosis Slight Rouleaux Present PT 11.5 (9.0-12.0) sec INR 1.1 (<1.2) APTT 25.2 (22.0-30.0) sec Sodium 136 L (137-145) mmol/L Potassium 5.4 H (3.5-5.1) mmol/L Chloride 104 (98-107) mmol/L Carbon Dioxide 20 L (22-30) mmol/L Anion Gap 12 mmol/L BUN 29 H (7-17) mg/dL Creatinine 1.63 H (0.52-1.04) mg/dL Est GFR (CKD-EPI)AfAm 37 (>60 ml/min/1.73 sqM) Est GFR (CKD-EPI)NonAf 32 (>60 ml/min/1.73 sqM) Glucose 169 H (74-99) mg/dL Plasma Lactic Acid Maximus (0.7-2.0) mmol/L Calcium 8.7 (8.4-10.2) mg/dL Total Bilirubin 0.7 (0.2-1.3) mg/dL AST 32 (14-36) U/L ALT 15 (4-34) U/L Alkaline Phosphatase 185 H (38-126) U/L Creatine Kinase 72 (30-135) U/L Total Protein 7.3 (6.3-8.2) g/dL Albumin 3.2 L (3.5-5.0) g/dL 03/27/20 Range/Units 04:46 WBC (3.8-10.6) k/uL RBC (3.80-5.40) m/uL Hgb (11.4-16.0) gm/dL Hct (34.0-46.0) % MCV (80.0-100.0) fL MCH (25.0-35.0) pg MCHC (31.0-37.0) g/dL RDW (11.5-15.5) % Plt Count (150-450) k/uL Neutrophils % (Manual) % Band Neutrophils % % Lymphocytes % (Manual) % Monocytes % (Manual) % Neutrophils # (Manual) (1.3-7.7) k/uL Lymphocytes # (Manual) (1.0-4.8) k/uL Monocytes # (Manual) (0-1.0) k/uL Nucleated RBCs (0-0) /100 WBC Manual Slide Review Toxic Granulation Toxic Vacuolation Hypochromasia Anisocytosis Rouleaux PT (9.0-12.0) sec INR (<1.2) APTT (22.0-30.0) sec Sodium (137-145) mmol/L Potassium (3.5-5.1) mmol/L Chloride (98-107) mmol/L Carbon Dioxide (22-30) mmol/L Anion Gap mmol/L BUN (7-17) mg/dL Creatinine (0.52-1.04) mg/dL Est GFR (CKD-EPI)AfAm (>60 ml/min/1.73 sqM) Est GFR (CKD-EPI)NonAf (>60 ml/min/1.73 sqM) Glucose (74-99) mg/dL Plasma Lactic Acid Maximus 2.9 H* (0.7-2.0) mmol/L Calcium (8.4-10.2) mg/dL Total Bilirubin (0.2-1.3) mg/dL AST (14-36) U/L ALT (4-34) U/L Alkaline Phosphatase (38-126) U/L Creatine Kinase (30-135) U/L Total Protein (6.3-8.2) g/dL Albumin (3.5-5.0) g/dL Disposition Clinical Impression: Sepsis, Type II diabetes mellitus with peripheral circulatory disorder, uncontrolled, JELENA (acute kidney injury) Disposition: ADMITTED IP TO THIS HOSP Condition: Serious Is patient prescribed a controlled substance at d/c from ED?: No
--- NOTE | 2020-03-27 05:14 | XR ---
EXAMINATION TYPE: XR chest 1V portable DATE OF EXAM: 03/27/2020 COMPARISON: 08/24/2019 HISTORY: Fever TECHNIQUE: Single view FINDINGS: There is no heart failure. Thoracic aorta is atheromatous. Heart appears shifted slightly t o the left side similar to old exam. There are no hilar masses. There are large pulmonary arteries th at could relate to some pulmonary hypertension. I see no definite pleural effusion. IMPRESSION: Heart and mediastinum shifted slightly to the left side that could relate to some mild at electasis in the left lower lobe. No heart failure seen. No change compared to old exam.
--- NOTE | 2020-03-27 05:15 | XR ---
EXAMINATION TYPE: XR tibia fibula RT DATE OF EXAM: 03/27/2020 COMPARISON: NONE HISTORY: Infection TECHNIQUE: 3 views FINDINGS: There is osteopenia. I see no fracture nor dislocation. I see no focal bone destruction. Th ere is no evidence of soft tissue air. IMPRESSION: Significant osteopenia. No fracture seen.
[2020-03-27 05:23] LABS: Anisocytosis Slight; HCT 30.8 % (34.0-46.0); HGB 9.4 gm/dL (11.4-16.0); Hypochromasia Moderate; INR 1.1 (<1.2); MCH 27.9 pg (25.0-35.0); MCHC 30.4 g/dL (31.0-37.0); MCV 91.8 fL (80.0-100.0); Mean Platelet Volume 7.4; Partial Thromboplastin Time 25.2 sec (22.0-30.0); Platelet Count 334 k/uL (150-450); Prothrombin Time 11.5 sec (9.0-12.0); RBC 3.36 m/uL (3.80-5.40); RDW 16.4 % (11.5-15.5); WBC 11.6 k/uL (3.8-10.6)
[2020-03-27 05:29] LABS: Albumin 3.2 g/dL (3.5-5.0); Calcium 8.7 mg/dL (8.4-10.2); Potassium 5.4 mmol/L (3.5-5.1); Total Bilirubin 0.7 mg/dL (0.2-1.3); Total Protein 7.3 g/dL (6.3-8.2)
[2020-03-27 05:47] LABS: Band Neutrophils % 21 %; Lymphocytes # (M) 1.62 k/uL (1.0-4.8); Monocytes # (M) 0.12 k/uL (0-1.0); Neutrophils % (M) 64 %; Nucleated Red Blood Cells 0 /100 WBC (0-0); Total Cells Counted 200
[2020-03-27 05:48] LABS: Rouleaux Present; Toxic Granulation Present; Toxic Vacuolation Present
[2020-03-27] MEDS ORDERED: VANCOMYCIN 1,750 MG in SODIUM CHLORIDE 0.9% 500 ML 500 ML IVPB ONE (06:00)
[2020-03-27] MEDS ORDERED: NALOXONE 0.4 MG/ML 1 ML VIAL IV PRN (06:01)
[2020-03-27] MEDS ORDERED: ENOXAPARIN 40 MG/0.4 ML SYRINGE SQ SCH (09:00)
[2020-03-27 11:46] LABS: Glucose,Whole Blood 157 mg/dL (75-99)
[2020-03-27] MEDS: INSULIN ASPART (NovoLOG) 100 UNIT/ML VIAL SQ SCH ×2 (12:29→17:27)
[2020-03-27] MEDS ORDERED: ACETAMINOPHEN TAB 325 MG TAB PO PRN (15:25)
[2020-03-27] MEDS ORDERED: HYDROmorphone 0.5 MG/0.5 ML SYRINGE IVP STA (15:30)
[2020-03-27 17:01] LABS: Glucose,Whole Blood 165 mg/dL (75-99)
[2020-03-27] MEDS: HYDROcodone/APAP 10-325MG 1 EACH TAB PO PRN ×2 (17:30→23:03)
[2020-03-27] MEDS: methocarbamoL 500 MG TAB PO SCH (18:04)
[2020-03-27 20:31] LABS: Glucose,Whole Blood 119 mg/dL (75-99)
[2020-03-27] MEDS: SENNOSIDES-DOCUSATE SODIUM 1 EACH TAB PO SCH (20:51)
[2020-03-27] MEDS: ACETAMINOPHEN TAB 325 MG TAB PO SCH (20:51)
[2020-03-27] MEDS: SODIUM BICARBONATE TAB 650 MG TAB PO SCH (20:51)
[2020-03-27] MEDS: MORPHINE SULFATE ER 15 MG TABLET PO SCH (20:51)
--- NOTE | 2020-03-27 22:45 | P.HPIM ---
History of Present Illness H&P Date: 03/27/20 Chief Complaint: Right leg pain and swelling Patient is a 69-year-old female with a known history of paroxysmal atrial fibrillation, diabetes type 2 [id number], fibromyalgia, GERD, hypertension, hyperlipidemia, obstructive sleep apnea, history of SVT, diabetic peripheral neuropathy and history of left total knee with infection and history of left BKA and chronic pain and other multiple medical problems presents to ER with complaints of fever, swelling and redness of the right lower extremity and altered mental status. Patient reports that she is just not by herself. Patient was also noted to have heart racing a fast and fever at the skilled nursing. Patient presented to the hospital from medical Echo. No complaints of chest pain or shortness of breath. No cough or sputum production. Chest x-ray showed heart and mediastinum shifted slightly to the left side that could relate to some mild atelectasis in the left lower lobe. No heart failure seen. No change compared to old exam. X-ray of the tibia-fibula right showed significant osteopenia. No fracture seen. EKG showed sinus tachycardia Lab data showed WBC 11.6, hemoglobin 9.4 and platelets 334 Sodium 136, potassium 5.4, bicarb is 20, BUN 29, creatinine 1.63, lactic acid 2.9 Alk phos 185 T-max was 103 on admission with tachycardia at 121 on admission Review of Systems Constitutional: Patient does have fever or chills . No generalized weakness or weight loss. Abdomen: Patient denied nausea vomiting and diarrhea and abdominal pain. Cardiovascular: Patient denies any chest pain or short of breath no palpitations. Respiratory: patient denied any cough is from production. No shortness of breath Neurologic: Patient denied any numbness or tingling headache. Musculoskeletal: Patient denies any complaints of joint swelling or deformity. Patient does have right leg swelling redness and pain. Skin: Negative Psychiatric: Negative Endocrine: No heat or cold intolerance. No recent weight gain. Genitourinary: No dysuria or hematuria. All other 14 point ROS negative except the above Past Medical History Past Medical History: Atrial Fibrillation, Diabetes Mellitus, Deep Vein Thrombosis (DVT), Fibromyalgia, GERD/Reflux, GI Bleed, Hyperlipidemia, Hypertension, Pneumonia, Renal Disease, Skin Disorder, Sleep Apnea/CPAP/BIPAP, Supraventricular Tachycardia (SVT), Vascular Disorder Additional Past Medical History / Comment(s): NIDDM type II, neuropathy bilateral hands/R foot, CKD stage III, UTIs, past urinary obstruction/reflux with IDC, sepsis/septic shock/septicemia, kidney stone which pt passed, chronic blood loss anemia, gastric ulcer, hemorrhoids, lower GI bleed, bowel obstruction from infection per pt-has colostomy, chronic low back pain, migraines, muscle weakness, 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, ALEX without device, past decubitus coccyx-pt states finally healed, cellulitis R lower leg, dermatitis, eczema, sinus problems, lower jaw deteriorating Last Myocardial Infarction Date:: unknown History of Any Multi-Drug Resistant Organisms: MRSA, VRE Date of last positivie culture/infection: 08/27/19 MRSA; 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 Source:: URINE-MRSA; Urine-VRE & ESBL Past Surgical History: Adenoidectomy, Bariatric Surgery, Bowel Resection, Cholecystectomy, Joint Replacement, Orthopedic Surgery, Tonsillectomy, Tubal Ligation Additional Past Surgical History / Comment(s): L total knee with infec tion/hardware removed and cemented then later replaced and then L BKA, total R hip replacement, ORIF L hip, bilateral heel spur removal, bilateral carpal tunnel releases, I&D R turner, leann filter, colostomy, gastric bypass/loreta en Y, panniculectomy, EGD, colonoscopies, hemorrhoidectomy, D&Cs, h ysteroscopies, teeth extractions, infusaport placed/removed. Past Anesthesia/Blood Transfusion Reactions: Blood Transfusion Reaction Additional Past Anesthesia/Blood Transfusion Reaction / Comment(s): Pt denies reaction. Smoking Status: Former smoker - Past Family History Father Family Medical History: Myocardial Infarction ([place]) Additional Family Medical History / Comment(s): AT AGE 46-[place] Mother Family Medical History: Diabetes Mellitus Additional Family Medical History / Comment(s): AT AGE 66 FROM COMPLICATIONS FROM DM. MOTHER HAD MIs WITH HER FIRST AL WHILE IN HER 50S. Sister(s) Family Medical History: Diabetes Mellitus Brother(s) Family Medical History: Diabetes Mellitus Daughter(s) Family Medical History: Cancer Son(s) Family Medical History: No Reported History Medications and Allergies Home Medications Medication Instructions Recorded Confirmed Type RX: Atorvastatin [Lipitor] 40 mg PO DAILY@199908/30/15 03/27/20 History RX: Ferrous Sulfate [Iron (65 MG 325 mg PO HS 04/11/19 03/27/20 History Elemental)] RX: Loratadine [Claritin] 10 mg PO DAILY@0604/25/19 03/27/20 History RX: Acetaminophen Tab [Tylenol] 650 mg PO TID@0500,1300,2100 07/18/19 03/27/20 History RX: Pantoprazole Sodium [Protonix] 40 mg PO DAILY@0607/18/19 03/27/20 History RX: Potassium Chloride ER [K-Dur 10 meq PO DAILY@59907/18/19 03/27/20 History 10] RX: lisinopriL 40 mg PO DAILY@59907/18/19 03/27/20 History RX: methocarbamoL [Robaxin] 500 mg PO TID@0700,1300,1900 07/18/19 03/27/20 History RX: hydrALAZINE HCL [Apresoline] 25 mg PO BID PRN #30 tab 07/20/19 03/27/20 Rx RX: Multivitamins, Thera 1 tab PO DAILY@59908/24/19 03/27/20 History [Multivitamin (formulary)] RX: Hydrocodone/Acetaminophen 1 tab PO Q6H PRN #8 tab 08/28/19 03/27/20 Rx [[place] 10-325] RX: Sodium Bicarbonate Tab 650 mg PO BID tab 08/28/19 03/27/20 Rx Acetaminophen [Tylenol 8 Hour] 650 mg PO Q6H PRN 03/27/20 03/27/20 History DULoxetine HCL [Cymbalta] 60 mg PO DAILY@69903/27/20 03/27/20 History Furosemide [Lasix] 40 mg PO DAILY 03/27/20 03/27/20 History Magnesium Hydroxide [Milk of 7,200 mg PO DAILY 03/27/20 03/27/20 History Magnesia Concentrate] RX: Morphine Sulfate ER [Ms Contin] 15 mg PO BID@0700,199903/27/20 03/27/20 History RX: Polyethylene Glycol 3350 17 gm PO DAILY@59903/27/20 03/27/20 History [Miralax] RX: amLODIPine [Norvasc] 10 mg PO DAILY@0600 03/27/20 03/27/20 History RX: metFORMIN HCL 1,000 mg PO BID@0700,1600 03/27/20 03/27/20 History Sennosides-Docusate Sodium 2 tab PO DAILY@199903/27/20 03/27/20 History [Senokot-S] sitaGLIPtin [Januvia] 100 mg PO DAILY@0700 03/27/20 03/27/20 History Allergies Allergy/AdvReac Type Severity Reaction Status Date / Time adhesive tape Allergy Severe Rash/Hives Verified 03/27/20 06:39 cephalexin monohydrate Allergy Severe Rash/Hives Verified 03/27/20 06:39 [From Keflex] influenza virus vaccine, Allergy Severe Anaphylaxis Verified 03/27/20 06:39 specific [influenza virus vacc,specific] latex Allergy Severe Rash/Hives Verified 03/27/20 06:39 peanut Allergy Severe Anaphylaxis Verified 03/27/20 06:39 Penicillins Allergy Severe Swelling Verified 03/27/20 06:39 tetanus toxoid, adsorbed Allergy Intermediate Rash/Hives Verified 03/27/20 06:39 baclofen Allergy Unknown Verified 03/27/20 06:39 Influenza Virus Vaccines Allergy Anaphylaxis Verified 03/27/20 06:39 Physical Exam Vitals: Vital Signs Temp Pulse Pulse Resp BP BP Pulse Ox 03/27/20 08:00 98.3 F 96 16 100/65 100 03/27/20 06:49 98.8 F 108 H 19 105/52 98 03/27/20 05:43 99.5 F 110 H 19 97/52 98 03/27/20 05:02 101.1 F H 121 H 20 103/56 99 03/27/20 04:16 103 F H 121 H 19 75/47 95 Intake and Output 03/26/20 03/27/20 03/27/20 22:59 06:59 14:59 Intake Total 118 Output Total 500 Balance -382 Intake: Oral 118 Output: Stool 500 Other: Weight 99.79 kg 99.79 kg PHYSICAL EXAMINATION: Patient is lying in the bed mild acute distress due to pain, awake alert and oriented.. HEENT: Normocephalic. Neck is supple. Pupils reactive. Nostrils clear. Oral cavity is moist. Ears reveal no drainage. Neck reveals no JVD, carotid bruits, or thyromegaly. CHEST EXAMINATION: Trachea is central. Symmetrical expansion. Lung [place] clear to auscultation and percussion. CARDIAC: Normal S1, S2 with no gallops. No murmurs ABDOMEN: Soft. Bowel sounds normal. No organomegaly. No abdominal bruits. Extremities:Right lower extremity swelling redness and warmth up to the knee. Left BKA. . No clubbing or cyanosis Neurologically awake, alert, oriented x1-2 with well-coordinated movements. No focal deficits noted Skin: No rash or skin lesions. Psychiatric: Coperative. Nonsuicidal Musculoskeletal: No joint swelling or deformity. Normal range of motion. Results CBC & Chem 7: 03/27/20 04:46 03/27/20 04:46 Labs: Abnormal Lab Results - Last 24 Hours (Table) 03/27/20 03/27/20 03/27/20 Range/Units 04:46 04:46 04:46 WBC 11.6 H (3.8-10.6) k/uL RBC 3.36 L (3.80-5.40) m/uL Hgb 9.4 L (11.4-16.0) gm/dL Hct 30.8 L (34.0-46.0) % MCHC 30.4 L (31.0-37.0) g/dL RDW 16.4 H (11.5-15.5) % Neutrophils # (Manual) 9.80 H (1.3-7.7) k/uL Sodium 136 L (137-145) mmol/L Potassium 5.4 H (3.5-5.1) mmol/L Carbon Dioxide 20 L (22-30) mmol/L BUN 29 H (7-17) mg/dL Creatinine 1.63 H (0.52-1.04) mg/dL Glucose 169 H (74-99) mg/dL Plasma Lactic Acid Maximus 2.9 H* (0.7-2.0) mmol/L Alkaline Phosphatase 185 H (38-126) U/L Albumin 3.2 L (3.5-5.0) g/dL Thrombosis Risk Factor Assmnt - DVT/VTE Prophylaxis DVT/VTE Prophylaxis: Pharmacologic Prophylaxis ordered - Choose All That Apply Any of the Below Risk Factors Present?: Yes Each Factor Represents 1 point: Medical pt on bed rest, Obesity (BMI >25), Sepsis (< 1month) Other Risk Factors: Yes Each Risk Factor Represents 2 Points: Age 61-74 years, Patient confined to bed Each Risk Factor Represents 3 Points: History of DVT/PE Other congenital or acquired thrombophilia - If yes, enter type in comment: No Thrombosis Risk Factor Assessment Total Risk Factor Score: 10 Thrombosis Risk Factor Assessment Level: High Risk Assessment and Plan Assessment: Acute right lower extremity cellulitis Sepsis secondary to cellulitis Fibromyalgia and chronic pain Hypertension Hyperlipidemia Mild hyperkalemia Acute on Chronic kidney disease stage III Metabolic acidosis Diabetic peripheral neuropathy History of gastric ulcer sent lower GI bleed Paroxysmal atrial fibrillation currently not on anticoagulation secondary to above Chronic low back pain Migraine headaches History of left BKA due to knee replacement with infection Obstructive sleep apnea not on CPAP at home History of ESBL and VRE urinary tract infection Medical debility Previous history of smoking DVT prophylaxis with Lovenox subcu Plan: Patient was given a dose of vancomycin and clindamycin in the ER. Continue with vancomycin with pharmacy dosing at this time. Follow-up blood cultures and continue with pain management. Blood pressure medications on hold due to patient's being hypotensive. Continue with GI and DVT prophylaxis. Further recommendations based on the clinical course. Prognosis guarded with multiple medical problems and comorbid conditions. Time with Patient: Greater than 30
[2020-03-28] MEDS: INSULIN ASPART (NovoLOG) 100 UNIT/ML VIAL SQ SCH ×5 (01:24→20:10)
[2020-03-28] MEDS ORDERED: POTASSIUM CHLORIDE ER 10 MEQ TAB.ER.PRT PO SCH (06:00)
[2020-03-28] MEDS: ACETAMINOPHEN TAB 325 MG TAB PO SCH ×3 (06:20→20:09)
[2020-03-28] MEDS: MORPHINE SULFATE ER 15 MG TABLET PO SCH ×2 (06:20→20:08)
[2020-03-28] MEDS: MULTIVITAMINS, THERA 1 EACH TAB PO SCH (06:21)
[2020-03-28] MEDS: DULoxetine HCL 60 MG CAPSULE.DR PO SCH (06:21)
[2020-03-28] MEDS: methocarbamoL 500 MG TAB PO SCH ×3 (06:21→20:13)
[2020-03-28] MEDS: PANTOPRAZOLE 40 MG TABLET PO SCH (06:21)
[2020-03-28 06:46] LABS: Glucose,Whole Blood 108 mg/dL (75-99)
[2020-03-28 07:56] LABS: Anisocytosis Slight; HCT 27.5 % (34.0-46.0); HGB 8.6 gm/dL (11.4-16.0); Hypochromasia Moderate; MCH 28.4 pg (25.0-35.0); MCHC 31.1 g/dL (31.0-37.0); MCV 91.4 fL (80.0-100.0); Mean Platelet Volume 7.9; Platelet Count 241 k/uL (150-450); RBC 3.01 m/uL (3.80-5.40); RDW 16.1 % (11.5-15.5); WBC 11.3 k/uL (3.8-10.6)
[2020-03-28 08:19] LABS: Calcium 8.4 mg/dL (8.4-10.2)
[2020-03-28 08:20] LABS: Potassium 5.2 mmol/L (3.5-5.1)
[2020-03-28 08:25] LABS: Band Neutrophils % 2 %; Lymphocytes # (M) 1.13 k/uL (1.0-4.8); Monocytes # (M) 0.34 k/uL (0-1.0); Neutrophils % (M) 85 %; Nucleated Red Blood Cells 0 /100 WBC (0-0); Total Cells Counted 100
[2020-03-28] MEDS: FUROSEMIDE 40 MG TAB PO SCH (10:11)
[2020-03-28] MEDS: ENOXAPARIN 30 MG/0.3 ML SYRINGE SQ SCH (10:11)
[2020-03-28] MEDS: SODIUM BICARBONATE TAB 650 MG TAB PO SCH ×2 (10:11→20:08)
[2020-03-28 12:12] LABS: Appearance,Urine Cloudy (Clear); Bilirubin,Urine Negative (Negative); Blood,Urine Negative (Negative); Budding Yeast,Urine Occasional /hpf; Color,Urine Yellow; Glucose,Urine (UA) Negative (Negative); Ketones,Urine Negative (Negative); Leukocyte Esterase,Urine Large (Negative); Mucus,Urine Rare /hpf; Nitrite,Urine Negative (Negative); Protein,Urine 1+ (Negative); RBC,Urine 4 /hpf (0-5); Specific Gravity,Urine 1.019 (1.001-1.035); Squamous Epithelial Cell,Urine 4 /hpf (0-4); Urobilinogen,Urine <2.0 mg/dL (<2.0); WBC,Urine 131 /hpf (0-5)
[2020-03-28 12:54] LABS: Glucose,Whole Blood 116 mg/dL (75-99)
--- NOTE | 2020-03-28 16:00 | P.PN ---
Subjective Progress Note Date: 03/28/20 Principal diagnosis: Right lower extremity cellulitis/sepsis Hyperkalemia Acute on chronic kidney disease stage III Paroxysmal atrial fibrillation 69-year-old female with a known history of paroxysmal atrial fibrillation, diabetes type 2 [id number], fibromyalgia, GERD, hypertension, hyperlipidemia, obstructive sleep apnea, history of SVT, diabetic peripheral neuropathy and history of left total knee with infection and history of left BKA and chronic pain and other multiple medical problems presents to ER with complaints of fever, swelling and redness of the right lower extremity and altered mental status. Patient reports that she is just not by herself. Subha ent was also noted to have heart racing a fast and fever at the [facility]. Patient presented to the hospital from medical [place]. No complaints of chest pain or shortness of breath. No cough or sputum production. Chest x-ray showed heart and mediastinum shifted slightly to the left side that could relate to some mild atelectasis in the left lower lobe. No heart failure seen. No change compared to old exam. X-ray of the tibia-fibula right showed significant osteopenia. No fracture seen. 03/28/20 Patient is seen and evaluated in room at bedside; remains on IV vancomycin and clindamycin for right lower extremity cellulitis; white blood count has improved from 11.6 yesterday down to 11.3 this morning; potassium has trended down from 5.4 down to 5.2; patient not on any potassium supplement; we will continue to monitor electrolytes and make adjustments as necessary; BUN/creatinine 29/1.63 down to 35/1.44; hemoglobin has dropped down almost a gram and last 24 hours and is at 8.6 today; patient remains on PPI; order stool occult blood 3 Objective - Vital Signs Vital signs: Vital Signs Temp 97.7 F 03/28/20 03:25 Pulse 56 L 03/28/20 03:25 Resp 18 03/28/20 03:25 BP 128/62 03/28/20 03:25 Pulse Ox 98 03/28/20 03:25 Intake & Output 03/27/20 03/28/20 03/28/20 18:59 06:59 18:59 Intake Total 118 240 Output Total 1000 Balance -882 240 Weight 99.79 kg 182 kg Intake: Oral 118 240 Output: Stool 1000 Other: Voiding Method Incontinent # Voids 1 1 # Bowel Movements 1 - Exam PHYSICAL EXAMINATION: GENERAL: The patient is alert and oriented x3, not in any acute distress. Well developed, well nourished. HEENT: Pupils are round and equally reacting to light. EOMI. No scleral icterus. No conjunctival pallor. Normocephalic, atraumatic. No pharyngeal erythema. No thyromegaly. CARDIOVASCULAR: S1 and S2 present. No murmurs, rubs, or gallops. PULMONARY: Chest is clear to auscultation, no wheezing or crackles. ABDOMEN: Soft, nontender, nondistended, normoactive bowel sounds. No palpable organomegaly. MUSCULOSKELETAL: No joint swelling or deformity. EXTREMITIES: No cyanosis, clubbing, or pedal edema. NEUROLOGICAL: Gross neurological examination did not reveal any focal deficits. SKIN: No rashes. - Labs CBC & Chem 7: 03/28/20 06:55 03/28/20 06:55 Labs: Abnormal Lab Results - Last 24 Hours (Table) 03/27/20 03/27/20 03/27/20 Range/Units 11:45 17:01 20:30 WBC (3.8-10.6) k/uL RBC (3.80-5.40) m/uL Hgb (11.4-16.0) gm/dL Hct (34.0-46.0) % RDW (11.5-15.5) % Neutrophils # (Manual) (1.3-7.7) k/uL Sodium (137-145) mmol/L Potassium (3.5-5.1) mmol/L Carbon Dioxide (22-30) mmol/L BUN (7-17) mg/dL Creatinine (0.52-1.04) mg/dL Glucose (74-99) mg/dL POC Glucose (mg/dL) 157 H 165 H 119 H (75-99) mg/dL 03/28/20 03/28/20 03/28/20 Range/Units 06:39 06:55 06:55 WBC 11.3 H (3.8-10.6) k/uL RBC 3.01 L (3.80-5.40) m/uL Hgb 8.6 L (11.4-16.0) gm/dL Hct 27.5 L (34.0-46.0) % RDW 16.1 H (11.5-15.5) % Neutrophils # (Manual) 9.80 H (1.3-7.7) k/uL Sodium 135 L (137-145) mmol/L Potassium 5.2 H (3.5-5.1) mmol/L Carbon Dioxide 21 L (22-30) mmol/L BUN 35 H (7-17) mg/dL Creatinine 1.44 H (0.52-1.04) mg/dL Glucose 111 H (74-99) mg/dL POC Glucose (mg/dL) 108 H (75-99) mg/dL Microbiology - Last 24 Hours (Table) 03/27/20 04:46 Blood Culture - Preliminary Blood No Growth after 24 hours Assessment and Plan Plan: Acute right lower extremity cellulitis Sepsis secondary to cellulitis Fibromyalgia and chronic pain Hypertension Hyperlipidemia Mild hyperkalemia Acute on Chronic kidney disease stage III Metabolic acidosis Diabetic peripheral neuropathy History of gastric ulcer sent lower GI bleed Paroxysmal atrial fibrillation currently not on anticoagulation secondary to above Chronic low back pain Migraine headaches History of left BKA due to knee replacement with infection Obstructive sleep apnea not on CPAP at home History of ESBL and VRE urinary tract infection Medical debility Previous history of smoking DVT prophylaxis with Lovenox subcu Plan: Patient was given a dose of vancomycin and clindamycin in the ER. Continue with vancomycin with pharmacy dosing at this time. Follow-up blood cultures and continue with pain management. Blood pressure medications on hold due to patient's being hypotensive. Continue with GI and DVT prophylaxis. Further recommendations based on the clinical course. Prognosis guarded with multiple medical problems and comorbid conditions.
[2020-03-28 17:12] LABS: Glucose,Whole Blood 132 mg/dL (75-99)
[2020-03-28 19:55] LABS: Glucose,Whole Blood 174 mg/dL (75-99)
[2020-03-28] MEDS: SENNOSIDES-DOCUSATE SODIUM 1 EACH TAB PO SCH (20:08)
[2020-03-29 06:31] LABS: Glucose,Whole Blood 127 mg/dL (75-99)
[2020-03-29] MEDS: methocarbamoL 500 MG TAB PO SCH ×3 (06:46→18:19)
[2020-03-29] MEDS: PANTOPRAZOLE 40 MG TABLET PO SCH (06:46)
[2020-03-29] MEDS: MORPHINE SULFATE ER 15 MG TABLET PO SCH ×2 (06:46→20:23)
[2020-03-29] MEDS: MULTIVITAMINS, THERA 1 EACH TAB PO SCH (06:46)
[2020-03-29] MEDS: DULoxetine HCL 60 MG CAPSULE.DR PO SCH (06:46)
[2020-03-29] MEDS: ACETAMINOPHEN TAB 325 MG TAB PO SCH ×3 (06:47→20:22)
[2020-03-29] MEDS: INSULIN ASPART (NovoLOG) 100 UNIT/ML VIAL SQ SCH ×4 (06:48→20:23)
[2020-03-29 06:51] LABS: Anisocytosis Slight; Basophils % (A) 0 %; Eosinophils # (A) 0.3 k/uL (0-0.7); Eosinophils % (A) 4 %; HCT 24.1 % (34.0-46.0); HGB 7.3 gm/dL (11.4-16.0); Hypochromasia Moderate; Lymphocytes # (A) 1.3 k/uL (1.0-4.8); Lymphocytes % (A) 20 %; MCH 27.7 pg (25.0-35.0); MCHC 30.2 g/dL (31.0-37.0); MCV 91.7 fL (80.0-100.0); Mean Platelet Volume 7.4; Monocytes # (A) 0.2 k/uL (0-1.0); Monocytes % (A) 3 %; Neutrophils # (A) 4.4 k/uL (1.3-7.7); Neutrophils % (A) 70 %; Platelet Count 241 k/uL (150-450); RBC 2.63 m/uL (3.80-5.40); RDW 16.3 % (11.5-15.5); WBC 6.3 k/uL (3.8-10.6)
[2020-03-29 07:11] LABS: Calcium 7.7 mg/dL (8.4-10.2); Potassium 3.9 mmol/L (3.5-5.1)
[2020-03-29] MEDS ORDERED: VANCOMYCIN 1,500 MG in SODIUM CHLORIDE 0.9% 250 ML IVPB SCH (09:00)
[2020-03-29] MEDS ORDERED: VANCOMYCIN 2,500 MG in SODIUM CHLORIDE 0.9% 500 ML 500 ML IVPB SCH (09:00)
[2020-03-29] MEDS: FUROSEMIDE 40 MG TAB PO SCH (09:15)
[2020-03-29] MEDS: ENOXAPARIN 30 MG/0.3 ML SYRINGE SQ SCH (09:15)
[2020-03-29] MEDS: SODIUM BICARBONATE TAB 650 MG TAB PO SCH ×2 (09:16→20:22)
[2020-03-29 12:56] LABS: Glucose,Whole Blood 184 mg/dL (75-99)
[2020-03-29] MEDS: PANTOPRAZOLE 40 MG/10 ML VIAL IVP SCH ×2 (13:26→20:22)
[2020-03-29 16:03] LABS: Anisocytosis Slight; HCT 23.7 % (34.0-46.0); HGB 7.3 gm/dL (11.4-16.0); Hypochromasia Marked; MCH 28.7 pg (25.0-35.0); MCV 92.7 fL (80.0-100.0); Mean Platelet Volume 7.3; Platelet Count 249 k/uL (150-450); RBC 2.56 m/uL (3.80-5.40); RDW 16.2 % (11.5-15.5); WBC 6.2 k/uL (3.8-10.6)
[2020-03-29] MEDS: HYDROcodone/APAP 10-325MG 1 EACH TAB PO PRN (16:38)
[2020-03-29 16:51] LABS: Glucose,Whole Blood 132 mg/dL (75-99)
--- NOTE | 2020-03-29 17:53 | P.PN ---
Subjective Progress Note Date: 03/29/20 Principal diagnosis: Right lower extremity cellulitis/sepsis Hyperkalemia Acute on chronic kidney disease stage III Paroxysmal atrial fibrillation 69-year-old female with a known history of paroxysmal atrial fibrillation, diabetes type 2 [id number], fibromyalgia, GERD, hypertension, hyperlipidemia, obstructive sleep apnea, history of SVT, diabetic peripheral neuropathy and history of left total knee with infection and history of left BKA and chronic pain and other multiple medical problems presents to ER with complaints of fever, swelling and redness of the right lower extremity and altered mental status. Patient reports that she is just not by herself. Subha ent was also noted to have heart racing a fast and fever at the [facility]. Patient presented to the hospital from medical [place]. No complaints of chest pain or shortness of breath. No cough or sputum production. Chest x-ray showed heart and mediastinum shifted slightly to the left side that could relate to some mild atelectasis in the left lower lobe. No heart failure seen. No change compared to old exam. X-ray of the tibia-fibula right showed significant osteopenia. No fracture seen. 03/28/20 Patient is seen and evaluated in room at bedside; remains on IV vancomycin and clindamycin for right lower extremity cellulitis; white blood count has improved from 11.6 yesterday down to 11.3 this morning; potassium has trended down from 5.4 down to 5.2; patient not on any potassium supplement; we will continue to monitor electrolytes and make adjustments as necessary; BUN/creatinine 29/1.63 down to 35/1.44; hemoglobin has dropped down almost a gram and last 24 hours and is at 8.6 today; patient remains on PPI; order stool occult blood 3 03/29/2020 Patient is seen at bedside for follow-up; denies any specific complaints; vital signs remained stable Lab review shows a drop in hemoglobin from 7.3 down to 8.6 this morning; BUN/creatinine of 35/1.44 down to 38/1.4; we will discontinue Lovenox for severe symptomatic anemia; orders stool occult blood 3; we'll start patient on heparin per protocol and start on IV Protonix 40 mg every 12 hours; monitor H&H every 12 hours Objective - Vital Signs Vital signs: Vital Signs Temp 98.2 F 03/29/20 08:00 Pulse 107 H 03/29/20 08:00 Resp 16 03/29/20 08:00 BP 116/72 03/29/20 08:00 Pulse Ox 99 03/29/20 08:00 Intake & Output 03/28/20 03/29/20 03/29/20 18:59 06:59 18:59 Intake Total 1040 700 Output Total 300 610 Balance 740 90 Weight 182.5 kg Intake: Oral 1040 700 Output: Urine 150 610 Stool 150 Other: Voiding Method Incontinent Incontinent - Labs CBC & Chem 7: 03/29/20 15:50 03/29/20 06:19 Labs: Abnormal Lab Results - Last 24 Hours (Table) 03/28/20 03/28/20 03/28/20 Range/Units 11:43 12:42 17:00 RBC (3.80-5.40) m/uL Hgb (11.4-16.0) gm/dL Hct (34.0-46.0) % MCHC (31.0-37.0) g/dL RDW (11.5-15.5) % Sodium (137-145) mmol/L BUN (7-17) mg/dL Creatinine (0.52-1.04) mg/dL Glucose (74-99) mg/dL POC Glucose (mg/dL) 116 H 132 H (75-99) mg/dL Calcium (8.4-10.2) mg/dL Urine Appearance Cloudy H (Clear) Urine Protein 1+ H (Negative) Ur Leukocyte Esterase Large H (Negative) Urine WBC 131 H (0-5) /hpf Urine WBC Clumps Occasional H (None) /hpf Urine Mucus Rare H (None) /hpf Urine Yeast (Budding) Occasional H (None) /hpf 03/28/20 03/29/20 03/29/20 Range/Units 19:43 06:19 06:19 RBC 2.63 L (3.80-5.40) m/uL Hgb 7.3 L (11.4-16.0) gm/dL Hct 24.1 L (34.0-46.0) % MCHC 30.2 L (31.0-37.0) g/dL RDW 16.3 H (11.5-15.5) % Sodium 134 L (137-145) mmol/L BUN 38 H (7-17) mg/dL Creatinine 1.46 H (0.52-1.04) mg/dL Glucose 113 H (74-99) mg/dL POC Glucose (mg/dL) 174 H (75-99) mg/dL Calcium 7.7 L (8.4-10.2) mg/dL Urine Appearance (Clear) Urine Protein (Negative) Ur Leukocyte Esterase (Negative) Urine WBC (0-5) /hpf Urine WBC Clumps (None) /hpf Urine Mucus (None) /hpf Urine Yeast (Budding) (None) /hpf 03/29/20 Range/Units 06:23 RBC (3.80-5.40) m/uL Hgb (11.4-16.0) gm/dL Hct (34.0-46.0) % MCHC (31.0-37.0) g/dL RDW (11.5-15.5) % Sodium (137-145) mmol/L BUN (7-17) mg/dL Creatinine (0.52-1.04) mg/dL Glucose (74-99) mg/dL POC Glucose (mg/dL) 127 H (75-99) mg/dL Calcium (8.4-10.2) mg/dL Urine Appearance (Clear) Urine Protein (Negative) Ur Leukocyte Esterase (Negative) Urine WBC (0-5) /hpf Urine WBC Clumps (None) /hpf Urine Mucus (None) /hpf Urine Yeast (Budding) (None) /hpf Microbiology - Last 24 Hours (Table) 03/27/20 04:46 Blood Culture - Preliminary Blood No Growth after 48 hours 03/28/20 11:43 Urine Culture - Preliminary Urine,Clean Catch
[2020-03-29 20:17] LABS: Glucose,Whole Blood 189 mg/dL (75-99)
[2020-03-29] MEDS: SENNOSIDES-DOCUSATE SODIUM 1 EACH TAB PO SCH (20:22)
[2020-03-30 06:20] LABS: Calcium 7.9 mg/dL (8.4-10.2); Potassium 4.1 mmol/L (3.5-5.1)
[2020-03-30 06:21] LABS: Anisocytosis Slight; Basophils % (A) 0 %; Eosinophils # (A) 0.4 k/uL (0-0.7); Eosinophils % (A) 9 %; HCT 24.6 % (34.0-46.0); HGB 7.5 gm/dL (11.4-16.0); Hypochromasia Moderate; Lymphocytes # (A) 1.4 k/uL (1.0-4.8); Lymphocytes % (A) 33 %; MCH 28.1 pg (25.0-35.0); MCHC 30.5 g/dL (31.0-37.0); MCV 92.1 fL (80.0-100.0); Mean Platelet Volume 7.3; Monocytes # (A) 0.2 k/uL (0-1.0); Monocytes % (A) 5 %; Neutrophils # (A) 2.1 k/uL (1.3-7.7); Neutrophils % (A) 49 %; Platelet Count 264 k/uL (150-450); RBC 2.67 m/uL (3.80-5.40); RDW 16.1 % (11.5-15.5); WBC 4.3 k/uL (3.8-10.6)
[2020-03-30] MEDS: DULoxetine HCL 60 MG CAPSULE.DR PO SCH (06:26)
[2020-03-30] MEDS: ACETAMINOPHEN TAB 325 MG TAB PO SCH ×3 (06:26→20:31)
[2020-03-30] MEDS: MULTIVITAMINS, THERA 1 EACH TAB PO SCH (06:26)
[2020-03-30] MEDS: MORPHINE SULFATE ER 15 MG TABLET PO SCH ×2 (06:26→20:34)
[2020-03-30] MEDS: methocarbamoL 500 MG TAB PO SCH ×3 (06:29→18:06)
[2020-03-30 06:31] LABS: Glucose,Whole Blood 122 mg/dL (75-99)
[2020-03-30] MEDS: INSULIN ASPART (NovoLOG) 100 UNIT/ML VIAL SQ SCH ×4 (07:49→20:37)
[2020-03-30] MEDS: FUROSEMIDE 40 MG TAB PO SCH (09:14)
[2020-03-30] MEDS: PANTOPRAZOLE 40 MG/10 ML VIAL IVP SCH ×2 (09:14→20:33)
[2020-03-30] MEDS: SODIUM BICARBONATE TAB 650 MG TAB PO SCH ×2 (09:14→20:31)
--- NOTE | 2020-03-30 11:44 | CONS ---
CONSULTATION DATE OF SERVICE: 03/30/2020 REASON FOR CONSULTATION: Anemia. HISTORY OF PRESENT ILLNESS: The patient is a 69-year-old pleasant white female with history of atrial fibrillation, diabetes mellitus, hypertension, hyperlipidemia, gastroesophageal reflux disease, COPD who was admitted to the hospital because she was not feeling well with decreased appetite for the last 2 days duration. She also was complaining of some swelling and redness of the right lower extremity with low-grade fever at the sn[facility] and she was sent from [facility] for further evaluation. At the time of admission to the hospital, she was noted to have a hemoglobin of 11.6, but subsequently dropped to 7.5 g/dL and hence we are consulted regarding this issue. The patient denies any abdominal pain. She reports no nausea, vomiting. She has history of colostomy from a bowel resection a year ago. She stated that she had multiple EGDs and colonoscopies in the past, the last one about a year and a half ago and according to her recollection it was within normal limits. PAST MEDICAL HISTORY: Significant for atrial fibrillation, diabetes mellitus, DVT, hypertension, hyperlipidemia, chronic kidney disease, sleep apnea, peripheral vascular disease, chronic kidney disease stage 3. PAST SURGICAL HISTORY: Left BKA, total right hip replacement, colostomy a year ago secondary to bowel obstruction, gastric bypass surgery with Clinton-en-Y anastomosis, pancolectomy, hemorrhoidectomy, D and C, hysteroscopy, teeth extraction. FAMILY HISTORY: Father with coronary artery disease and mother with diabetes mellitus. MEDICATIONS: Medications at home include Lipitor, iron sulfate, Claritin, acetaminophen, pantoprazole, potassium chloride, Lisinopril, Robaxin, hydralazine, multivitamin, [place], Cymbalta, Lasix, Milk of magnesia, Januvia, Senokot, Norvasc, metformin, MiraLAX, and morphine sulfate. ALLERGIES: KEFLEX, PENICILLIN, BACLOFEN, FLU VACCINE. REVIEW OF SYSTEMS: CARDIOPULMONARY: No chest pain or shortness of breath. : No dysuria or hematuria. MUSCULOSKELETAL: Chronic back pain. NEUROLOGY: Unremarkable. PSYCHIATRY: Unremarkable. ENT: Vision unremarkable. CONSTITUTIONAL: She did have a low-grade fever for the last 2 days but none now. No fever, chills, or night sweats. HEMATOLOGY: Anemia as described above. The patient stated that in the past she was anemic for a whole year and received multiple blood transfusions approximately a year ago. ENDOCRINE: Unremarkable. PHYSICAL EXAMINATION: She appears comfortable. No apparent distress. VITAL SIGNS: Stable. Blood pressure is 108/67, pulse is 79, temperature 98. HEENT: Examination unremarkable. Conjunctivae are pink. Sclerae anicteric. Oral cavity no lesions. NECK: No JVD or lymph node enlargement. CHEST: Clear to auscultation. HEART: Regular rate and rhythm. ABDOMEN: Obese. There was a colostomy in the left upper quadrant area with solid stool noted. Rest of the abdomen was benign. Multiple scars noted. EXTREMITIES: Left below-knee amputation. No pedal edema. Some redness of the right lower extremity noted. LABS: At the time of admission to the hospital: WBC 11.6, hemoglobin 9.4, platelets 334. Today hemoglobin is 7.5, WBC 4.3, and platelets 264. BUN is 33, creatinine 1.39. Basic metabolic panel is within normal limits. AST, ALT, and total bilirubin are within normal limits. PT/INR is within normal limits. IMPRESSION: 1. Normocytic normochromic anemia with clinically no evidence of active ongoing bleeding. At this time, anemia can be multifactorial in etiology. Cannot rule out occult gastrointestinal blood loss. Clinically no evidence of active bleeding. She may have a component of anemia of chronic disease because of elevated BUN and creatinine. It appears that she had multiple endoscopic investigations in the past and the last colonoscopy, according to her, was as recent as a year and a half ago. She recalls having an upper endoscopy a few years ago. 2. History of colostomy secondary to partial colon resection about a year ago for questionable obstruction versus infection. The patient clinically is doing well. 3. Morbid obesity. 4. History of hypertension. 5. History of hyperlipidemia. 6. Lower extremity cellulitis. Presently on vancomycin. RECOMMENDATIONS: 1. Obtain iron studies to see for iron deficiency anemia. 2. Monitor CBC on a daily basis. 3. Continue Protonix 40 mg daily. 4. Further recommendations will follow based on the iron studies. Thank you for this consultation. MMODL / IJN: [id number] /
[2020-03-30 12:17] LABS: Glucose,Whole Blood 131 mg/dL (75-99)
[2020-03-30] MEDS: HYDROcodone/APAP 10-325MG 1 EACH TAB PO PRN (16:08)
--- NOTE | 2020-03-30 17:09 | P.PN ---
Subjective Progress Note Date: 03/30/20 Principal diagnosis: Right lower extremity cellulitis/sepsis Hyperkalemia Acute on chronic kidney disease stage III Paroxysmal atrial fibrillation 69-year-old female with a known history of paroxysmal atrial fibrillation, diabetes type 2 [id number], fibromyalgia, GERD, hypertension, hyperlipidemia, obstructive sleep apnea, history of SVT, diabetic peripheral neuropathy and history of left total knee with infection and history of left BKA and chronic pain and other multiple medical problems presents to ER with complaints of fever, swelling and redness of the right lower extremity and altered mental status. Patient reports that she is just not by herself. Subha ent was also noted to have heart racing a fast and fever at the [facility]. Patient presented to the hospital from medical [place]. No complaints of chest pain or shortness of breath. No cough or sputum production. Chest x-ray showed heart and mediastinum shifted slightly to the left side that could relate to some mild atelectasis in the left lower lobe. No heart failure seen. No change compared to old exam. X-ray of the tibia-fibula right showed significant osteopenia. No fracture seen. 03/28/20 Patient is seen and evaluated in room at bedside; remains on IV vancomycin and clindamycin for right lower extremity cellulitis; white blood count has improved from 11.6 yesterday down to 11.3 this morning; potassium has trended down from 5.4 down to 5.2; patient not on any potassium supplement; we will continue to monitor electrolytes and make adjustments as necessary; BUN/creatinine 29/1.63 down to 35/1.44; hemoglobin has dropped down almost a gram and last 24 hours and is at 8.6 today; patient remains on PPI; order stool occult blood 3 03/29/2020 Patient is seen at bedside for follow-up; denies any specific complaints; vital signs remained stable Lab review shows a drop in hemoglobin from 7.3 down to 8.6 this morning; BUN/creatinine of 35/1.44 down to 38/1.4; we will discontinue Lovenox for severe symptomatic anemia; orders stool occult blood 3; we'll start patient on heparin per protocol and start on IV Protonix 40 mg every 12 hours; monitor H&H every 12 hours 03/30/2020 Patient is seen for follow-up at bedside; no specific complaints Vital signs are reviewed and are stable with a temperature of 97.9, pulse 83, respiration 18 and blood pressure 127/86 with O2 saturation 99% on room air Lab review shows a hemoglobin drop from 8.6 down to 7.3 and remained stable at 7.5 today; BUN/creatinine slightly improved from 38/1.46 down to 33/1.39; urine culture grows pseudomonas 10-49,000 colony count; patient is currently on IV antibiotics in form of vancomycin and clindamycin; we will consult ID for recommendations on antibiotic treatment if indicated for positive urine culture versus contamination; patient's hemoglobin stabilized after an initial drop in his 7.5 today; Lovenox is discontinued and stool occult blood is pending; patient remains on IV Protonix; continue to monitor H&H every 12 hours; of 8 GI recommendations Objective - Vital Signs Vital signs: Vital Signs Temp 98.4 F 03/30/20 09:45 Pulse 81 03/30/20 09:45 Resp 16 03/30/20 09:45 BP 116/61 03/30/20 09:45 Pulse Ox 96 03/30/20 09:45 Intake & Output 03/29/20 03/30/20 03/30/20 18:59 06:59 18:59 Intake Total 476 230 Output Total 1500 850 450 Balance -1024 -850 -220 Weight 98.1 kg Intake: Oral 476 230 Output: Urine 1500 700 450 Stool 150 Other: Voiding Method Incontinent Incontinent Incontinent - Exam PHYSICAL EXAMINATION: GENERAL: The patient is alert and oriented x3, not in any acute distress. Well developed, well nourished. HEENT: Pupils are round and equally reacting to light. EOMI. No scleral icterus. No conjunctival pallor. Normocephalic, atraumatic. No pharyngeal erythema. No thyromegaly. CARDIOVASCULAR: S1 and S2 present. No murmurs, rubs, or gallops. PULMONARY: Chest is clear to auscultation, no wheezing or crackles. ABDOMEN: Soft, nontender, nondistended, normoactive bowel sounds. No palpable or ganomegaly. MUSCULOSKELETAL: No joint swelling or deformity. EXTREMITIES: No cyanosis, clubbing, or pedal edema. NEUROLOGICAL: Gross neurological examination did not reveal any focal deficits. SKIN: No rashes. - Labs CBC & Chem 7: 03/30/20 05:39 09/06/20 05:39 Labs: Abnormal Lab Results - Last 24 Hours (Table) 03/29/20 03/29/20 03/29/20 Range/Units 12:55 15:50 16:51 RBC 2.56 L (3.80-5.40) m/uL Hgb 7.3 L (11.4-16.0) gm/dL Hct 23.7 L (34.0-46.0) % MCHC (31.0-37.0) g/dL RDW 16.2 H (11.5-15.5) % BUN (7-17) mg/dL Creatinine (0.52-1.04) mg/dL Glucose (74-99) mg/dL POC Glucose (mg/dL) 184 H 132 H (75-99) mg/dL Calcium (8.4-10.2) mg/dL 03/29/20 03/30/20 03/30/20 Range/Units 20:10 05:39 05:39 RBC 2.67 L (3.80-5.40) m/uL Hgb 7.5 L (11.4-16.0) gm/dL Hct 24.6 L (34.0-46.0) % MCHC 30.5 L (31.0-37.0) g/dL RDW 16.1 H (11.5-15.5) % BUN 33 H (7-17) mg/dL Creatinine 1.39 H (0.52-1.04) mg/dL Glucose 126 H (74-99) mg/dL POC Glucose (mg/dL) 189 H (75-99) mg/dL Calcium 7.9 L (8.4-10.2) mg/dL 03/30/20 Range/Units 06:29 RBC (3.80-5.40) m/uL Hgb (11.4-16.0) gm/dL Hct (34.0-46.0) % MCHC (31.0-37.0) g/dL RDW (11.5-15.5) % BUN (7-17) mg/dL Creatinine (0.52-1.04) mg/dL Glucose (74-99) mg/dL POC Glucose (mg/dL) 122 H (75-99) mg/dL Calcium (8.4-10.2) mg/dL Microbiology - Last 24 Hours (Table) 03/28/20 11:43 Urine Culture - Preliminary Urine,Clean Catch Pseudomonas aeruginosa 03/27/20 04:46 Blood Culture - Preliminary Blood No Growth after 72 hours Assessment and Plan Plan: Acute right lower extremity cellulitis Sepsis secondary to cellulitis Fibromyalgia and chronic pain Hypertension Hyperlipidemia Mild hyperkalemia Acute on Chronic kidney disease stage III Metabolic acidosis Diabetic peripheral neuropathy History of gastric ulcer sent lower GI bleed Paroxysmal atrial fibrillation currently not on anticoagulation secondary to above Chronic low back pain Migraine headaches History of left BKA due to knee replacement with infection Obstructive sleep apnea not on CPAP at home History of ESBL and VRE urinary tract infection Medical debility Previous history of smoking DVT prophylaxis with Lovenox subcu Plan: Patient was given a dose of vancomycin and clindamycin in the ER. Continue with vancomycin with pharmacy dosing at this time. Follow-up blood cultures and continue with pain management. Blood pressure medications on hold due to patient's being hypotensive. Continue with GI and DVT prophylaxis. Further recommendations based on the clinical course. Prognosis guarded with multiple medical problems and comorbid conditions.
[2020-03-30 17:12] LABS: Glucose,Whole Blood 118 mg/dL (75-99)
[2020-03-30] MEDS: AZTREONAM 2 GM in SODIUM CHLORIDE 0.9% 100 ML IVPB SCH (18:05)
[2020-03-30 20:23] LABS: Glucose,Whole Blood 176 mg/dL (75-99)
[2020-03-30] MEDS: SENNOSIDES-DOCUSATE SODIUM 1 EACH TAB PO SCH (20:32)
--- NOTE | 2020-03-30 22:26 | P.CONS ---
History of Present Illness - Reason for Consult Consult date: 03/30/20 Pseudomonas urinary tract infection Requesting physician: Antonette Bradley - Chief Complaint Fever and mental status changes x one day - History of Present Illness Patient is 69-year-old female [facility] resident patient has been sent to the ER on 03/27/2020 for evaluation of fever 90 status changes and erythema to the right leg and the patient usually have some mental status changes when she has infection as planned concern from the [facility] patient currently was noticed to be tachycardic with heart rate in 130s and a fever of 103F, patient did have a fever of [birth year]/27/1934. In the ER, the patient did have a white count of 11.6, patient also have a positive UA which was large leukocyte esterase more than 131 WBC, chest x-ray with some atelectasis x-rays of the leg with osteopenia no fracture seen patient has been treated with vancomycin pharmacy to dose for right leg cellulitis, blood culture has been negative however the urine in documented positive with pseudomonas aeruginosa infection disease has been consulted for further management of antibiotic therapy, patient currently denies having any fever or chills denies any chest pain or shortness of cough no nausea no vomiting bone pain denies pain to the right leg Review of Systems Positive point has been mentioned in the HPI rest of the systems are negative Past Medical History Past Medical History: Atrial Fibrillation, Diabetes Mellitus, Deep Vein Thrombosis (DVT), Fibromyalgia, GERD/Reflux, GI Bleed, Hyperlipidemia, Hypertension, Pneumonia, Renal Disease, Skin Disorder, Sleep Apnea/CPAP/BIPAP, Supraventricular Tachycardia (SVT), Vascular Disorder Additional Past Medical History / Comment(s): NIDDM type II, neuropathy bilateral hands/R foot, CKD stage III, UTIs, past urinary obstruction/reflux with IDC, sepsis/septic shock/septicemia, kidney stone which pt passed, chronic blood loss anemia, gastric ulcer, hemorrhoids, lower GI bleed, bowel obstruction from infection per pt-has colostomy, chronic low back pain, migraines, muscle weakness, 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, ALEX without device, past decubitus coccyx-pt states finally healed, cellulitis R lower leg, dermatitis, eczema, sinus problems, lower jaw deteriorating Last Myocardial Infarction Date:: unknown History of Any Multi-Drug Resistant Organisms: MRSA, VRE Year Discovered:: 08/27/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; 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 Source:: URINE-MRSA; Urine-VRE & ESBL Past Surgical History: Adenoidectomy, Bariatric Surgery, Bowel Resection, Cholecystectomy, Joint Replacement, Orthopedic Surgery, Tonsillectomy, Tubal Ligation Additional Past Surgical History / Comment(s): L total knee with infection/hardware removed and cemented then later replaced and then L BKA, total R hip replacement, ORIF L hip, bilateral heel spur removal, bilateral carpal tunnel releases, I&D R turner, leann filter, colostomy, gastric bypass/loreta en Y, panniculectomy, EGD, colonoscopies, hemorrhoidectomy, D&Cs, hysteroscopies, teeth extractions, infusaport placed/removed. Past Anesthesia/Blood Transfusion Reactions: Blood Transfusion Reaction Additional Past Anesthesia/Blood Transfusion Reaction / Comm: Pt denies reaction. Smoking Status: Former smoker - Past Family History Father Family Medical History: Myocardial Infarction ([place]) Additional Family Medical History / Comment(s): AT AGE 46-[place] Mother Family Medical History: Diabetes Mellitus Additional Family Medical History / Comment(s): AT AGE 66 FROM COMPLICATIONS FROM DM. MOTHER HAD MIs WITH HER FIRST IL WHILE IN HER 50S. Sister(s) Family Medical History: Diabetes Mellitus Brother(s) Family Medical History: Diabetes Mellitus Daughter(s) Family Medical History: Cancer Son(s) Family Medical History: No Reported History Medications and Allergies Home Medications Medication Instructions Recorded Confirmed Type Atorvastatin [Lipitor] 40 mg PO DAILY@199908/30/15 03/27/20 History Ferrous Sulfate [Iron (65 MG 325 mg PO HS 04/11/19 03/27/20 History Elemental)] Loratadine [Claritin] 10 mg PO DAILY@0600 04/25/19 03/27/20 History Acetaminophen Tab [Tylenol] 650 mg PO TID@0500,1300,2100 07/18/19 03/27/20 History Pantoprazole Sodium [Protonix] 40 mg PO DAILY@0600 07/18/19 03/27/20 History Potassium Chloride ER [K-Dur 10] 10 meq PO DAILY@0600 07/18/19 03/27/20 History lisinopriL 40 mg PO DAILY@0600 07/18/19 03/27/20 History methocarbamoL [Robaxin] 500 mg PO TID@0700,1300,1900 07/18/19 03/27/20 History hydrALAZINE HCL [Apresoline] 25 mg PO BID PRN #30 tab 07/20/19 03/27/20 Rx Multivitamins, Thera [Multivitamin 1 tab PO DAILY@0600 08/24/19 03/27/20 History (formulary)] Hydrocodone/Acetaminophen [Blevins 1 tab PO Q6H PRN #8 tab 08/28/19 03/27/20 Rx 10-325] Sodium Bicarbonate Tab 650 mg PO BID tab 08/28/19 03/27/20 Rx Acetaminophen [Tylenol 8 Hour] 650 mg PO Q6H PRN 03/27/20 03/27/20 History DULoxetine HCL [Cymbalta] 60 mg PO DAILY@00 03/27/20 03/27/20 History Furosemide [Lasix] 40 mg PO DAILY 03/27/20 03/27/20 History Magnesium Hydroxide [Milk of 7,200 mg PO DAILY 03/27/20 03/27/20 History Magnesia Concentrate] Morphine Sulfate ER [Ms Contin] 15 mg PO BID@0700,199903/27/20 03/27/20 History Polyethylene Glycol 3350 [Miralax] 17 gm PO DAILY@59903/27/20 03/27/20 History Sennosides-Docusate Sodium 2 tab PO DAILY@199903/27/20 03/27/20 History [Senokot-S] amLODIPine [Norvasc] 10 mg PO DAILY@59903/27/20 03/27/20 History metFORMIN HCL 1,000 mg PO BID@0700,1600 03/27/20 03/27/20 History sitaGLIPtin [Januvia] 100 mg PO DAILY@69903/27/20 03/27/20 History Allergies Allergy/AdvReac Type Severity Reaction Status Date / Time adhesive tape Allergy Severe Rash/Hives Verified 03/27/20 06:39 cephalexin monohydrate Allergy Severe Rash/Hives Verified 03/27/20 06:39 [From Keflex] influenza virus vaccine, Allergy Severe Anaphylaxis Verified 03/27/20 06:39 specific [influenza virus vacc,specific] latex Allergy Severe Rash/Hives Verified 03/27/20 06:39 peanut Allergy Severe Anaphylaxis Verified 03/27/20 06:39 Penicillins Allergy Severe Swelling Verified 03/27/20 06:39 tetanus toxoid, adsorbed Allergy Intermediate Rash/Hives Verified 03/27/20 06:39 baclofen Allergy Unknown Verified 03/27/20 06:39 Influenza Virus Vaccines Allergy Anaphylaxis Verified 03/27/20 06:39 Physical Exam Vitals: Vital Signs Temp Pulse Resp BP Pulse Ox 03/30/20 12:00 98.6 F 86 16 129/71 96 03/30/20 09:45 98.4 F 81 16 116/61 96 03/30/20 04:05 98.0 F 79 16 108/67 95 03/29/20 23:50 97.9 F 79 16 108/76 97 03/29/20 20:15 98.1 F 81 16 116/80 99 Intake and Output 03/30/20 03/30/20 03/30/20 06:59 14:59 22:59 Intake Total 230 Output Total 850 450 480 Balance -850 -220 -480 Intake: Oral 230 Output: Urine 700 450 480 Stool 150 Other: Voiding Method Incontinent Incontinent Weight 98.1 kg GENERAL DESCRIPTION: An elderly female lying in bed, no distress. No tachypnea or accessory muscle of respiration use. HEENT: Shows Pallor , no scleral icterus. Oral mucous membrane is dry. No pharyngeal erythema or thrush NECK: Trachea central, no thyromegaly. LUNGS: Unlabored breathing. Clear to auscultation anteriorly. No wheeze or crackle. HEART: S1, S2, regular rate and rhythm. No loud murmur ABDOMEN: Soft, no tenderness , guarding or rigidity, no organomegaly EXTREMITIES: Diffuse swelling and minimal redness to the right leg slightly warm to touch. SKIN: No rash, no masses palpable. NEUROLOGICAL: The patient is awake, alert, oriented x3, mood and affect normal. Results CBC & Chem 7: 03/30/20 05:39 03/30/20 05:39 Labs: Abnormal Lab Results - Last 24 Hours (Table) 03/29/20 03/29/20 03/30/20 Range/Units 16:51 20:10 05:39 RBC (3.80-5.40) m/uL Hgb (11.4-16.0) gm/dL Hct (34.0-46.0) % MCHC (31.0-37.0) g/dL RDW (11.5-15.5) % BUN 33 H (7-17) mg/dL Creatinine 1.39 H (0.52-1.04) mg/dL Glucose 126 H (74-99) mg/dL POC Glucose (mg/dL) 132 H 189 H (75-99) mg/dL Calcium 7.9 L (8.4-10.2) mg/dL 03/30/20 03/30/20 03/30/20 Range/Units 05:39 06:29 11:58 RBC 2.67 L (3.80-5.40) m/uL Hgb 7.5 L (11.4-16.0) gm/dL Hct 24.6 L (34.0-46.0) % MCHC 30.5 L (31.0-37.0) g/dL RDW 16.1 H (11.5-15.5) % BUN (7-17) mg/dL Creatinine (0.52-1.04) mg/dL Glucose (74-99) mg/dL POC Glucose (mg/dL) 122 H 131 H (75-99) mg/dL Calcium (8.4-10.2) mg/dL Microbiology - Last 24 Hours (Table) 03/28/20 11:43 Urine Culture - Preliminary Urine,Clean Catch Pseudomonas aeruginosa 03/27/20 04:46 Blood Culture - Preliminary Blood No Growth after 72 hours Assessment and Plan Assessment: 1-patient presented to hospital with fever and mental status changes source could be likely right lower extremity cellulitis however did have a positive and his recurrent UTI with urinary source not entirely excluded, urine culture now showing pseudomonas aeruginosa 2-Patient with multiple antibiotic ALLERGIES that would limit the number of antibiotic safe to use (1) Pseudomonas urinary tract infection Current Visit: Yes Status: Acute Code(s): N39.0 - URINARY TRACT INFECTION, SITE NOT SPECIFIED; B96.5 - PSEUDOMONAS (MALLEI) CAUSING DISEASES CLASSD ELSR SNOMED Code(s): 842522449923754 (2) Allergy to multiple antibiotics Current Visit: Yes Status: Acute Code(s): Z88.1 - ALLERGY STATUS TO OTHER ANTIBIOTIC AGENTS STATUS SNOMED Code(s): 894928044 Plan: 1- we will start the patient Azactam 2 g every 12 hours while waiting for the culture finalized We will follow on clinical condition and cultures to further adjust medication if needed Thank you for this consultation will follow this patient with you Time with Patient: Greater than 30
[2020-03-31] MEDS: ACETAMINOPHEN TAB 325 MG TAB PO SCH ×3 (05:23→23:07)
[2020-03-31] MEDS: MULTIVITAMINS, THERA 1 EACH TAB PO SCH (05:23)
[2020-03-31 06:18] LABS: Glucose,Whole Blood 168 mg/dL (75-99)
[2020-03-31] MEDS: DULoxetine HCL 60 MG CAPSULE.DR PO SCH (06:38)
[2020-03-31] MEDS: methocarbamoL 500 MG TAB PO SCH ×3 (06:38→17:59)
[2020-03-31] MEDS: MORPHINE SULFATE ER 15 MG TABLET PO SCH ×2 (06:38→23:06)
[2020-03-31] MEDS: INSULIN ASPART (NovoLOG) 100 UNIT/ML VIAL SQ SCH ×4 (06:40→23:08)
[2020-03-31 06:52] LABS: Basophils % (A) 1 %; Eosinophils # (A) 0.5 k/uL (0-0.7); Eosinophils % (A) 8 %; HCT 26.6 % (34.0-46.0); Hypochromasia Marked; Lymphocytes % (A) 34 %; MCH 28.6 pg (25.0-35.0); MCV 95.4 fL (80.0-100.0); Mean Platelet Volume 7.1; Monocytes # (A) 0.4 k/uL (0-1.0); Monocytes % (A) 7 %; Neutrophils # (A) 2.8 k/uL (1.3-7.7); Neutrophils % (A) 47 %; Platelet Count 266 k/uL (150-450); RBC 2.79 m/uL (3.80-5.40); RDW 15.7 % (11.5-15.5); WBC 5.9 k/uL (3.8-10.6)
[2020-03-31 07:10] LABS: Calcium 7.9 mg/dL (8.4-10.2); Potassium 4.7 mmol/L (3.5-5.1)
[2020-03-31] MEDS: SODIUM BICARBONATE TAB 650 MG TAB PO SCH ×2 (08:54→23:08)
[2020-03-31] MEDS: AZTREONAM 2 GM in SODIUM CHLORIDE 0.9% 100 ML IVPB SCH ×2 (08:54→23:30)
[2020-03-31] MEDS: FUROSEMIDE 40 MG TAB PO SCH (08:54)
[2020-03-31] MEDS: PANTOPRAZOLE 40 MG/10 ML VIAL IVP SCH ×2 (08:54→23:09)
--- NOTE | 2020-03-31 12:07 | PN ---
PROGRESS NOTE DATE OF SERVICE: 03/31/2020 INTERVAL HISTORY: Patient is a 69-year-old pleasant white female admitted to the hospital with right lower extremity cellulitis, not feeling well with low-grade fever and decreased appetite. She is doing much better since being in the hospital. She was noted to have normocytic anemia, and hence we are consulted because of this issue. Iron studies were requested yesterday, which are still pending at the time of this dictation. She denies any abdominal pain. No nausea, no vomiting. No rectal bleeding. She has a colostomy bag in place which has brown stool. PHYSICAL EXAMINATION: Appears comfortable. VITAL SIGNS: Stable. Blood pressure 131/82, pulse rate 83, temperature 98.5. HEENT: Examination unremarkable. Conjunctivae are pink. Sclerae anicteric. Oral cavity no lesions. NECK: No JVD. No lymph node enlargement. CHEST: Clear to auscultation. HEART: Regular rate and rhythm. ABDOMEN: Soft. Bowel sounds are positive. No organomegaly. Abdomen had a colostomy bag in place with brown stool noted. EXTREMITIES: No pedal edema. Left above-knee amputation. SKIN: No rashes. NEUROLOGIC: Alert and oriented x3. No focal deficits. LABS: From today WBC 5.9, hemoglobin 8, platelets 266. Iron studies pending. BUN 30, creatinine 1.26. IMPRESSION: 1. Normocytic normochromic anemia, possibly multifactorial etiology. Clinically no evidence of active bleeding. Iron studies are still pending. 2. Right lower extremity cellulitis, on broad-spectrum antibiotics. 3. Low-grade fever and fatigue, resolved. 4. Chronic kidney disease. RECOMMENDATION: 1. Await iron studies and serum ferritin. 2. No plans on any endoscopic intervention at the present time. 3. Monitor CBC on a close basis. 4. Continue with symptomatic and supportive care. 5. We will follow with you closely. Thank you for this consultation. MMODL / IJN: [id number] /
[2020-03-31 12:13] LABS: Glucose,Whole Blood 176 mg/dL (75-99)
--- NOTE | 2020-03-31 14:12 | P.PN ---
Subjective Progress Note Date: 03/31/20 Principal diagnosis: 03/31/2020 This is a 69-year-old female who was recently admitted with fever, swelling and redness of the right lower extremity and altered mental status and is being closely monitored. Patient is a resident at [facility]. Patient has a history of left AKA. Patient is maintained on IV antibiotics in the form of Aztreonam and will continue at this time. infectious disease is following. GI also consulted as patient does have a colostomy bag and was noted to have normocytic anemia. Iron studies currently pendingand per GI recommendations there are no endoscopic interventions planned currently. No active bleeding is noted. Urine cultures showing pseudomonas aeruginosa and awaiting for finalization of cultures at this time. creatinine slowly trending down and is currently 1.26 with a BUN of 30. Hemoglobin is stable at 8.0 and white blood c ount is 5.9. Will continue to monitor blood sugars closely and treat accordingly with sliding scale this time. Review of systems: Constitutional: reports generalized fatigue, no reports of fever, or chills Cardiovascular: No reports of chest pain or palpitations Respiratory: No reports of shortness of breath or cough GI: No reports of nausea, vomiting, or diarrhea : No reports of dysuria or retention Neurovascular: reports weakness , no reports of numbness Active Medications Acetaminophen (Tylenol Tab) 650 mg PO TID@0500,1300,2100 [facility] Last Admin: 03/31/20 05:23 Dose: 650 mg Documented by: Acetaminophen (Tylenol Tab) 650 mg PO Q6H PRN PRN Reason: Pain Hydrocodone Bitart/Acetaminophen ([place] 10) 1 each PO Q6H PRN PRN Reason: Pain Last Admin: 03/30/20 16:08 Dose: 1 each Documented by: Duloxetine HCl (Cymbalta) 60 mg PO DAILY@0700 [facility] Last Admin: 03/31/20 06:38 Dose: 60 mg Documented by: Furosemide (Lasix) 40 mg PO DAILY [facility] Last Admin: 03/31/20 08:54 Dose: 40 mg Documented by: Aztreonam 2 gm/ Sodium (Chloride) 100 mls @ 33.3 mls/hr IVPB Q12HR [facility]; Protocol Last Admin: 03/31/20 08:54 Dose: 33.3 mls/hr Documented by: Insulin Aspart (Novolog) 0 unit SQ ACHS [facility]; Protocol Last Admin: 03/31/20 12:32 Dose: 2 unit Documented by: Methocarbamol (Robaxin) 500 mg PO TID@0700,1300,1900 [facility] Last Admin: 03/31/20 06:38 Dose: 500 mg Documented by: Morphine Sulfate (Ms Contin) 15 mg PO BID@699,1999 [facility] Last Admin: 03/31/20 06:38 Dose: 15 mg Documented by: Multivitamins (Theragran) 1 each PO DAILY@06 [facility] Last Admin: 03/31/20 05:23 Dose: 1 each Documented by: Naloxone HCl (Narcan) 0.2 mg IV Q2M PRN PRN Reason: Opioid Reversal Pantoprazole Sodium (Protonix) 40 mg IVP BID [facility] Last Admin: 03/31/20 08:54 Dose: 40 mg Documented by: Senna/Docusate Sodium (Senokot-S) 2 each PO DAILY@1999 [facility] Last Admin: 03/30/20 20:32 Dose: 2 each Documented by: Sodium Bicarbonate (Sodium Bicarbonate Tab) 650 mg PO BID [facility] Last Admin: 03/31/20 08:54 Dose: 650 mg Documented by: Objective - Vital Signs Vital signs: Vital Signs Temp 98.5 F 03/31/20 08:00 Pulse 84 03/31/20 12:00 Resp 16 03/31/20 12:00 BP 123/75 03/31/20 12:00 Pulse Ox 96 03/31/20 12:00 Intake & Output 03/30/20 03/31/20 03/31/20 18:59 06:59 18:59 Intake Total 674 236 Output Total 1530 1400 Balance -856 -1400 236 Weight 97 kg Intake: Oral 674 236 Output: Urine 1530 1400 Other: Voiding Method Incontinent Incontinent Incontinent # Voids 1 - Exam GENERAL: The patient is alert and oriented x3, sleeping but easily arousable. Well developed, well nourished. Temp is 98.5F, pulse is 83, respirations are 18, blood pressure is 131/82, oxygen saturation is 95% on room air. HEENT: Pupils are round and equally reacting to light. EOMI. No scleral icterus. No conjunctival pallor. Normocephalic, atraumatic. No pharyngeal erythema. No thyromegaly. CARDIOVASCULAR: S1, S2 are muffled PULMONARY: diminished breath sounds bilaterally with no wheezing or rhonchi noted. ABDOMEN: Soft, obese, nontender, nondistended, normoactive bowel sounds. No palpable organomegaly. MUSCULOSKELETAL: No joint swelling or deformity. EXTREMITIES: No cyanosis, clubbing, or pedal edema. left AKA noted. Right lower extremity elevated on a pillow with erythema slightly improved NEUROLOGICAL: Gross neurological examination did not reveal any focal deficits. SKIN: No rashes. - Labs CBC & Chem 7: 03/31/20 05:48 03/31/20 05:48 Labs: Abnormal Lab Results - Last 24 Hours (Table) 03/30/20 03/30/20 03/31/20 Range/Units 17:03 20:16 05:48 RBC 2.79 L (3.80-5.40) m/uL Hgb 8.0 L (11.4-16.0) gm/dL Hct 26.6 L (34.0-46.0) % MCHC 30.0 L (31.0-37.0) g/dL RDW 15.7 H (11.5-15.5) % Sodium (137-145) mmol/L Carbon Dioxide (22-30) mmol/L BUN (7-17) mg/dL Creatinine (0.52-1.04) mg/dL Glucose (74-99) mg/dL POC Glucose (mg/dL) 118 H 176 H (75-99) mg/dL Calcium (8.4-10.2) mg/dL 03/31/20 03/31/20 03/31/20 Range/Units 05:48 06:17 12:11 RBC (3.80-5.40) m/uL Hgb (11.4-16.0) gm/dL Hct (34.0-46.0) % MCHC (31.0-37.0) g/dL RDW (11.5-15.5) % Sodium 136 L (137-145) mmol/L Carbon Dioxide 21 L (22-30) mmol/L BUN 30 H (7-17) mg/dL Creatinine 1.26 H (0.52-1.04) mg/dL Glucose 151 H (74-99) mg/dL POC Glucose (mg/dL) 168 H 176 H (75-99) mg/dL Calcium 7.9 L (8.4-10.2) mg/dL Microbiology - Last 24 Hours (Table) 03/28/20 11:43 Urine Culture - Final Urine,Clean Catch Pseudomonas aeruginosa 03/27/20 04:46 Blood Culture - Preliminary Blood No Growth after 96 hours Assessment and Plan Assessment: Acute right lower extremity cellulitis Sepsis secondary to cellulitis Fibromyalgia and chronic pain Hypertension Hyperlipidemia Mild hyperkalemia Acute on Chronic kidney disease stage III Metabolic acidosis Diabetic peripheral neuropathy History of gastric ulcer sent lower GI bleed Paroxysmal atrial fibrillation currently not on anticoagulation secondary to above Chronic low back pain Migraine headaches History of left AKA due to knee replacement with infection Obstructive sleep apnea not on CPAP at home History of ESBL and VRE urinary tract infection Medical debility Previous history of smoking DVT prophylaxis GI prophylaxis Full code Recommendations and discussion: Recommend to continue current medications, management, symptomatic treatment. Patient is currently maintained on IV antibiotics in the form of Aztreonam and will continue at this time. Infectious disease is following. Urine cultures showing pseudomonas aeruginosa and will await finalization of cultures. Case management and social work also following his patient is a resident at [facility] and will be returning there upon discharge. Will continue to monitor vital signs and labs closely and repeat a.m. labs. Continue sliding scale at this time. Due to multiple complex medical issues, prognosis is guarded. Further recommendations to follow.
[2020-03-31] MEDS: HYDROcodone/APAP 10-325MG 1 EACH TAB PO PRN (15:49)
[2020-03-31 16:58] LABS: Glucose,Whole Blood 165 mg/dL (75-99)
[2020-03-31 17:27] LABS: % Iron Saturation 8.73 (12.00-45.00)
[2020-03-31 20:09] LABS: Glucose,Whole Blood 258 mg/dL (75-99)
[2020-03-31 23:00] LABS: Glucose,Whole Blood 211 mg/dL (75-99)
[2020-03-31] MEDS: SENNOSIDES-DOCUSATE SODIUM 1 EACH TAB PO SCH (23:07)
[2020-04-01 02:17] LABS: Appearance,Urine Clear (Clear); Bacteria,Urine Rare /hpf; Bilirubin,Urine Negative (Negative); Blood,Urine Negative (Negative); Color,Urine Light Yellow; Glucose,Urine (UA) Negative (Negative); Ketones,Urine Negative (Negative); Leukocyte Esterase,Urine Large (Negative); Nitrite,Urine Negative (Negative); PH, Urine 5.5 (5.0-8.0); Protein,Urine Trace (Negative); RBC,Urine 1 /hpf (0-5); Specific Gravity,Urine 1.013 (1.001-1.035); Squamous Epithelial Cell,Urine 1 /hpf (0-4); Urobilinogen,Urine <2.0 mg/dL (<2.0); WBC,Urine 8 /hpf (0-5)
[2020-04-01] MEDS: ACETAMINOPHEN TAB 325 MG TAB PO SCH ×3 (05:36→21:46)
[2020-04-01] MEDS: MULTIVITAMINS, THERA 1 EACH TAB PO SCH (05:36)
--- NOTE | 2020-04-01 05:51 | PN ---
PROGRESS NOTE DATE OF SERVICE: 03/31/2020 REASON FOR FOLLOWUP: Pseudomonas urinary tract infection and a question of right lower extremity cellulitis. INTERVAL HISTORY: The patient is currently afebrile. The patient is breathing comfortably. Denies having any chest pain. No shortness of breath or cough. No nausea, no vomiting. No abdominal pain or diarrhea. No pain to the right leg. PHYSICAL EXAMINATION: Blood pressure 121/77 with a pulse of 85, temperature 98.2. She is 98% on room air. General description is an elderly female lying in bed in no distress. RESPIRATORY SYSTEM: Unlabored breathing, clear to auscultation anteriorly. HEART: S1, S2. Regular rate and rhythm. ABDOMEN: Soft, no tenderness. Right leg did have some swelling, minimal redness. No open wound or any drainage. LABS: Hemoglobin 8, white count 5.9, BUN of 30, creatinine 1.26. Urine Pseudomonas sensitivity is currently pending. DIAGNOSTIC IMPRESSION AND PLAN: Patient with Pseudomonas urinary tract infection in this patient who did have multiple antibiotic allergies is currently covered with Azactam to continue while waiting for the sensitivity Pseudomonas finalize. Repeat urine cultures to be obtained and continue supportive care. MMODL / IJN: [id number] /
[2020-04-01 07:12] LABS: Glucose,Whole Blood 142 mg/dL (75-99)
[2020-04-01] MEDS: DULoxetine HCL 60 MG CAPSULE.DR PO SCH (07:52)
[2020-04-01] MEDS: MORPHINE SULFATE ER 15 MG TABLET PO SCH ×2 (07:53→19:55)
[2020-04-01] MEDS: methocarbamoL 500 MG TAB PO SCH ×3 (07:55→19:56)
[2020-04-01] MEDS: INSULIN ASPART (NovoLOG) 100 UNIT/ML VIAL SQ SCH ×4 (07:56→21:47)
[2020-04-01 09:13] LABS: Calcium 8.2 mg/dL (8.4-10.2); Potassium 4.6 mmol/L (3.5-5.1)
[2020-04-01 09:20] LABS: Basophils % (A) 1 %; Eosinophils # (A) 0.5 k/uL (0-0.7); Eosinophils % (A) 7 %; HCT 27.5 % (34.0-46.0); HGB 8.4 gm/dL (11.4-16.0); Hypochromasia Marked; Lymphocytes % (A) 28 %; MCH 28.4 pg (25.0-35.0); MCHC 30.4 g/dL (31.0-37.0); MCV 93.2 fL (80.0-100.0); Mean Platelet Volume 7.1; Monocytes # (A) 0.5 k/uL (0-1.0); Monocytes % (A) 7 %; Neutrophils # (A) 4.1 k/uL (1.3-7.7); Neutrophils % (A) 56 %; Platelet Count 323 k/uL (150-450); RBC 2.95 m/uL (3.80-5.40); RDW 15.7 % (11.5-15.5); WBC 7.3 k/uL (3.8-10.6)
[2020-04-01] MEDS: SODIUM BICARBONATE TAB 650 MG TAB PO SCH ×2 (09:53→21:46)
[2020-04-01] MEDS: PANTOPRAZOLE 40 MG/10 ML VIAL IVP SCH (09:54)
[2020-04-01] MEDS: FUROSEMIDE 40 MG TAB PO SCH (09:55)
[2020-04-01] MEDS: AZTREONAM 2 GM in SODIUM CHLORIDE 0.9% 100 ML IVPB SCH ×2 (10:53→21:47)
[2020-04-01 11:50] LABS: Glucose,Whole Blood 138 mg/dL (75-99)
--- NOTE | 2020-04-01 14:14 | P.PN ---
Subjective Progress Note Date: 04/01/20 Principal diagnosis: 03/31/2020 This is a 69-year-old female who was recently admitted with fever, swelling and redness of the right lower extremity and altered mental status and is being closely monitored. Patient is a resident at [facility]. Patient has a history of left AKA. Patient is maintained on IV antibiotics in the form of Aztreonam and will continue at this time. infectious disease is following. GI also consulted as patient does have a colostomy bag and was noted to have normocytic anemia. Iron studies currently pendingand per GI recommendations there are no endoscopic interventions planned currently. No active bleeding is noted. Urine cultures showing pseudomonas aeruginosa and awaiting for finalization of cultures at this time. creatinine slowly trending down and is currently 1.26 with a BUN of 30. Hemoglobin is stable at 8.0 and white blood c ount is 5.9. Will continue to monitor blood sugars closely and treat accordingly with sliding scale this time. 04/01/2020 Patient is seen and evaluated and follow-up with no acute overnight issues. Right Lower extremity redness has improved. Patient with an acute urinary tract infection and cultures preliminary showing Pseudomonas aeruginosa and waiting for finalization. Given patient's multiple ALLERGIES patient is currently maintained on Aztreonam and will continue at this time. Infectious disease is following. Creatinine is trending down and 1.18 with a sodium of 141 and potassium of 4.6. Hemoglobin is stable at 8.4 with no active bleeding noted. Formed stool noted in the ostomy. Blood sugars being closely monitored and treated with sliding scale and will continue at this time. Repeat urinalysis continues to show some leukocytes and will discuss with infectious disease about antibiotics upon discharge. Review of systems: Constitutional: No reports of fatigue, no reports of fever, or chills Cardiovascular: No reports of chest pain or palpitations Respiratory: No reports of shortness of breath or cough GI: No reports of nausea, vomiting, or diarrhea : No reports of dysuria or retention Neurovascular: reports weakness , no reports of numbness Objective - Vital Signs Vital signs: Vital Signs Temp 98.7 F 04/01/20 07:12 Pulse 84 04/01/20 07:12 Resp 16 04/01/20 07:12 BP 132/76 04/01/20 07:12 Pulse Ox 99 04/01/20 07:12 Intake & Output 03/31/20 04/01/20 04/01/20 18:59 06:59 18:59 Intake Total 236 Output Total 750 300 Balance -514 -300 Intake: Oral 236 Output: Urine 750 300 Other: Voiding Method Incontinent Incontinent Incontinent - Exam GENERAL: The patient is alert and oriented x3, sleeping but easily arousable. Well developed, well nourished. HEENT: Pupils are round and equally reacting to light. EOMI. No scleral icterus. No conjunctival pallor. Normocephalic, atraumatic. No pharyngeal erythema. No thyromegaly. CARDIOVASCULAR: S1, S2 are muffled PULMONARY: diminished breath sounds bilaterally with no wheezing or rhonchi noted. ABDOMEN: Soft, obese, nontender, nondistended, normoactive bowel sounds. No palpable organomegaly. MUSCULOSKELETAL: No joint swelling or deformity. EXTREMITIES: No cyanosis, clubbing, or pedal edema. left AKA noted. Right lower extremity elevated on a pillow with erythema slightly improved NEUROLOGICAL: Gross neurological examination did not reveal any focal deficits. SKIN: No rashes. - Labs CBC & Chem 7: 04/01/20 08:22 04/01/20 08:22 Labs: Abnormal Lab Results - Last 24 Hours (Table) 03/31/20 03/31/20 03/31/20 Range/Units 05:48 16:56 20:05 RBC (3.80-5.40) m/uL Hgb (11.4-16.0) gm/dL Hct (34.0-46.0) % MCHC (31.0-37.0) g/dL RDW (11.5-15.5) % BUN (7-17) mg/dL Creatinine (0.52-1.04) mg/dL Glucose (74-99) mg/dL POC Glucose (mg/dL) 165 H 258 H (75-99) mg/dL Calcium (8.4-10.2) mg/dL Iron 20 L (50-170) ug/dL % Saturation 8.73 L (12.00-45.00) Urine Protein (Negative) Ur Leukocyte Esterase (Negative) Urine WBC (0-5) /hpf Urine Bacteria (None) /hpf 03/31/20 04/01/20 04/01/20 Range/Units 22:58 01:15 07:11 RBC (3.80-5.40) m/uL Hgb (11.4-16.0) gm/dL Hct (34.0-46.0) % MCHC (31.0-37.0) g/dL RDW (11.5-15.5) % BUN (7-17) mg/dL Creatinine (0.52-1.04) mg/dL Glucose (74-99) mg/dL POC Glucose (mg/dL) 211 H 142 H (75-99) mg/dL Calcium (8.4-10.2) mg/dL Iron (50-170) ug/dL % Saturation (12.00-45.00) Urine Protein Trace H (Negative) Ur Leukocyte Esterase Large H (Negative) Urine WBC 8 H (0-5) /hpf Urine Bacteria Rare H (None) /hpf 04/01/20 04/01/20 04/01/20 Range/Units 08:22 08:22 11:47 RBC 2.95 L (3.80-5.40) m/uL Hgb 8.4 L (11.4-16.0) gm/dL Hct 27.5 L (34.0-46.0) % MCHC 30.4 L (31.0-37.0) g/dL RDW 15.7 H (11.5-15.5) % BUN 27 H (7-17) mg/dL Creatinine 1.18 H (0.52-1.04) mg/dL Glucose 140 H (74-99) mg/dL POC Glucose (mg/dL) 138 H (75-99) mg/dL Calcium 8.2 L (8.4-10.2) mg/dL Iron (50-170) ug/dL % Saturation (12.00-45.00) Urine Protein (Negative) Ur Leukocyte Esterase (Negative) Urine WBC (0-5) /hpf Urine Bacteria (None) /hpf Microbiology - Last 24 Hours (Table) 03/27/20 04:46 Blood Culture - Preliminary Blood No Growth after 120 hours Assessment and Plan Assessment: Acute right lower extremity cellulitis Sepsis secondary to cellulitis Fibromyalgia and chronic pain Hypertension Hyperlipidemia Mild hyperkalemia Acute on Chronic kidney disease stage III Metabolic acidosis Diabetic peripheral neuropathy History of gastric ulcer sent lower GI bleed Paroxysmal atrial fibrillation currently not on anticoagulation secondary to above Chronic low back pain Migraine headaches History of left AKA due to knee replacement with infection Obstructive sleep apnea not on CPAP at home History of ESBL and VRE urinary tract infection Medical debility Previous history of smoking DVT prophylaxis GI prophylaxis Full code Recommendations and discussion: Recommend to continue current medications, management, symptomatic treatment. Patient is currently maintained on IV antibiotics in the form of Aztreonam and will continue at this time. Infectious disease is following. Urine cultures showing pseudomonas aeruginosa and will await finalization of cultures. Case management and social work also following his patient is a resident at [facility] and will be returning there upon discharge. Will continue to monitor vital signs and labs closely. Continue sliding scale at this time. Due to multiple complex medical issues, prognosis is guarded. Further recommendations to follow. Possible discharge in 24 hours.
[2020-04-01 16:57] LABS: Glucose,Whole Blood 172 mg/dL (75-99)
[2020-04-01] MEDS: PANTOPRAZOLE 40 MG TABLET PO SCH (17:43)
[2020-04-01] MEDS: SENNOSIDES-DOCUSATE SODIUM 1 EACH TAB PO SCH (19:56)
[2020-04-01 20:52] LABS: Glucose,Whole Blood 143 mg/dL (75-99)
--- NOTE | 2020-04-01 22:56 | PN ---
PROGRESS NOTE DATE OF SERVICE: 04/01/2020 REASON FOR FOLLOWUP: Pseudomonas infection. INTERVAL HISTORY: The patient is currently afebrile. The patient is breathing comfortably. Denies having any chest pain, shortness of breath or cough. No nausea or vomiting. No abdominal pain or any diarrhea. PHYSICAL EXAMINATION: Blood pressure 152/83 with a pulse of 80, temperature 98.2. She is 98% on room air. General description is an elderly female lying in bed in no distress. RESPIRATORY SYSTEM: Unlabored breathing. Clear to auscultation anteriorly. HEART: S1, S2. Regular rate and rhythm. LABS: Urine with Pseudomonas; sensitivity still pending. DIAGNOSTIC IMPRESSION AND PLAN: Patient with Pseudomonas urinary tract infection in this patient with MULTIPLE ANTIBIOTIC ALLERGIES. The patient is currently covered with Azactam; to continue while waiting for the culture to finalize. Continue with supportive care. MMODL / IJN: [id number] /
[2020-04-02 02:12] VITALS: RESP 16
[2020-04-02] MEDS: ACETAMINOPHEN TAB 325 MG TAB PO SCH ×2 (05:07→12:07)
[2020-04-02] MEDS: MULTIVITAMINS, THERA 1 EACH TAB PO SCH (05:07)
[2020-04-02 06:46] VITALS: BP 154/84; PULSE 75; TEMP 98.3
[2020-04-02 06:50] LABS: Glucose,Whole Blood 162 mg/dL (75-99)
[2020-04-02] MEDS: DULoxetine HCL 60 MG CAPSULE.DR PO SCH (08:06)
[2020-04-02] MEDS: methocarbamoL 500 MG TAB PO SCH ×2 (08:07→12:07)
[2020-04-02] MEDS: MORPHINE SULFATE ER 15 MG TABLET PO SCH (08:07)
[2020-04-02] MEDS: FUROSEMIDE 40 MG TAB PO SCH (08:08)
[2020-04-02] MEDS: SODIUM BICARBONATE TAB 650 MG TAB PO SCH (08:08)
[2020-04-02] MEDS: PANTOPRAZOLE 40 MG TABLET PO SCH (08:09)
[2020-04-02] MEDS: INSULIN ASPART (NovoLOG) 100 UNIT/ML VIAL SQ SCH ×2 (08:22→12:07)
[2020-04-02] MEDS: AZTREONAM 2 GM in SODIUM CHLORIDE 0.9% 100 ML IVPB SCH (08:35)
[2020-04-02 10:10] LABS: Anisocytosis Slight; Basophils % (A) 1 %; Eosinophils # (A) 0.4 k/uL (0-0.7); Eosinophils % (A) 6 %; HCT 25.6 % (34.0-46.0); HGB 7.5 gm/dL (11.4-16.0); Hypochromasia Marked; Lymphocytes # (A) 1.7 k/uL (1.0-4.8); Lymphocytes % (A) 28 %; MCH 27.9 pg (25.0-35.0); MCHC 29.4 g/dL (31.0-37.0); MCV 94.9 fL (80.0-100.0); Mean Platelet Volume 7.3; Monocytes # (A) 0.3 k/uL (0-1.0); Monocytes % (A) 5 %; Neutrophils # (A) 3.6 k/uL (1.3-7.7); Neutrophils % (A) 59 %; Platelet Count 332 k/uL (150-450); RDW 16.4 % (11.5-15.5); WBC 6.1 k/uL (3.8-10.6)
--- NOTE | 2020-04-02 10:11 | P.PN ---
Subjective Progress Note Date: 04/01/20 Principal diagnosis: Normocytic anemia Lying in bed, tolerating diet. Normal output per ostomy with no signs or symptoms of GI bleed. Objective - Vital Signs Vital signs: Vital Signs Temp 98.5 F 04/01/20 15:34 Pulse 90 04/01/20 15:34 Resp 18 04/01/20 15:34 BP 149/84 04/01/20 15:34 Pulse Ox 95 04/01/20 15:34 Intake & Output 03/31/20 04/01/20 04/01/20 18:59 06:59 18:59 Intake Total 236 Output Total 750 300 550 Balance -514 -300 -550 Intake: Oral 236 Output: Urine 750 300 350 Stool 200 Other: Voiding Method Incontinent Incontinent Incontinent - Exam On physical examination, patient appears comfortable in no apparent distress. HEAD: Normocephalic, atraumatic. EYES: No scleral icterus. No conjunctival injection. MOUTH: No lesions, tongue midline. NECK: Trachea midline, no gross abnormalities. ABDOMEN: Soft, obese. Bowel sounds are positive. No organomegaly. No guarding or rigidity. EXTREMITIES: No pedal edema. SKIN: No rashes, no jaundice. NEUROLOGIC: Alert and oriented x3. No focal deficits. - Labs CBC & Chem 7: 04/01/20 08:22 04/01/20 08:22 Labs: Abnormal Lab Results - Last 24 Hours (Table) 03/31/20 03/31/20 04/01/20 Range/Units 20:05 22:58 01:15 RBC (3.80-5.40) m/uL Hgb (11.4-16.0) gm/dL Hct (34.0-46.0) % MCHC (31.0-37.0) g/dL RDW (11.5-15.5) % BUN (7-17) mg/dL Creatinine (0.52-1.04) mg/dL Glucose (74-99) mg/dL POC Glucose (mg/dL) 258 H 211 H (75-99) mg/dL Calcium (8.4-10.2) mg/dL Urine Protein Trace H (Negative) Ur Leukocyte Esterase Large H (Negative) Urine WBC 8 H (0-5) /hpf Urine Bacteria Rare H (None) /hpf 04/01/20 04/01/2020 Range/Units 07:11 08:22 08:22 RBC 2.95 L (3.80-5.40) m/uL Hgb 8.4 L (11.4-16.0) gm/dL Hct 27.5 L (34.0-46.0) % MCHC 30.4 L (31.0-37.0) g/dL RDW 15.7 H (11.5-15.5) % BUN 27 H (7-17) mg/dL Creatinine 1.18 H (0.52-1.04) mg/dL Glucose 140 H (74-99) mg/dL POC Glucose (mg/dL) 142 H (75-99) mg/dL Calcium 8.2 L (8.4-10.2) mg/dL Urine Protein (Negative) Ur Leukocyte Esterase (Negative) Urine WBC (0-5) /hpf Urine Bacteria (None) /hpf 04/01/20 04/01/20 Range/Units 11:47 16:50 RBC (3.80-5.40) m/uL Hgb (11.4-16.0) gm/dL Hct (34.0-46.0) % MCHC (31.0-37.0) g/dL RDW (11.5-15.5) % BUN (7-17) mg/dL Creatinine (0.52-1.04) mg/dL Glucose (74-99) mg/dL POC Glucose (mg/dL) 138 H 172 H (75-99) mg/dL Calcium (8.4-10.2) mg/dL Urine Protein (Negative) Ur Leukocyte Esterase (Negative) Urine WBC (0-5) /hpf Urine Bacteria (None) /hpf Microbiology - Last 24 Hours (Table) 03/27/20 04:46 Blood Culture - Preliminary Blood No Growth after 120 hours Assessment and Plan Assessment: 77-year-old female admitted to the hospital with right lower extremity cellulitis and low-grade fevers as well as decreased appetite. Patient noted to have a normocytic anemia. She denied any nausea, vomiting, or signs or symptoms of GI bleeding. Patient has a colostomy with normal colored output. Hemoglobin has remained stable. Likely multifactorial in nature given multiple medical com orbidities. There are no signs or symptoms of GI bleeding as stated. (1) Normocytic anemia Current Visit: Yes Status: Acute Code(s): D64.9 - ANEMIA, UNSPECIFIED SNOMED Code(s): 703241538 Plan: supportive care Okay for diet as tolerated Continue to monitor stool output Continue monitor hemoglobin and hematocrit and transfuse as needed Iron studies pending Continue other medical management per primary team Thank you for allowing us to participate in the care of the patient
[2020-04-02 10:24] LABS: Potassium 4.5 mmol/L (3.5-5.1)
[2020-04-02 11:06] LABS: Glucose,Whole Blood 237 mg/dL (75-99)
--- NOTE | 2020-04-02 12:39 | P.DS ---
Providers Date of admission: 03/27/20 06:05 Expected date of discharge: 04/02/20 Attending physician: Haritha Lara Consults: 03/29/20 10:49 Consult Physician Routine Consulting Provider: Carey Worrell Consult Reason/Comments: Anemia Do you want consulting provider notified?: Yes 03/30/20 11:06 Consult Physician Routine Consulting Provider: Merary Kendrick Consult Reason/Comments: Recommendations on Pseudomonas UTI Do you want consulting provider notified?: Yes Primary care physician: Carlo Frederick Hospital Course: Final diagnosis Acute right lower extremity cellulitis Acute urinary tract infection with culture showing Proteus mirabilis and Pseudomonas aeruginosa Sepsis secondary to cellulitis Fibromyalgia and chronic pain Hypertension Hyperlipidemia Mild hyperkalemia Acute on Chronic kidney disease stage III Metabolic acidosis Diabetic peripheral neuropathy History of gastric ulcer recent lower GI bleed Paroxysmal atrial fibrillation currently not on anticoagulation secondary to above Chronic low back pain Migraine headaches History of left AKA due to knee replacement with infection Obstructive sleep apnea not on CPAP at home History of ESBL and VRE urinary tract infection Medical debility Previous history of smoking DVT prophylaxis GI prophylaxis Full code Discharge disposition Patient is being discharged in a stable condition with guarded prognosis to [facility] as she is a resident there. Patient will follow-up with Dr. Frederick in the outpatient setting upon discharge. Patient will continue on IV antibiotics in the form of aztreonam for the next 5 days and then may discontinue. Total time taken is greater than 35 minutes. History of present illness This is a 69-year-old female who was recently admitted with fever, swelling and redness of the right lower extremity and altered mental status and was being closely monitored. Infectious disease following. GI also following with no plans for surgical or endoscopic intervention at this time. No GI bleeding noted at this time and hemoglobin is stable. Patient will be provided prescriptions for lab work in a few days to monitor hemoglobin along with kidney functions. Patient was found to have a urinary tract infection with the possibility of cellulitis of the right lower extremity and was initiated on IV antibiotics in the form of aztreonam and will continue with this IV antibiotic twice daily for the next 5 days and then may discontinue. Patient is currently receiving a midline for this IV antibiotic coverage. Infectious disease was following. Patient's urine cultures finalized showing pseudomonas aeruginosa along with Proteus mirabilis. Patient's blood sugar should be monitored before meals at bedtime and treated accordingly with NovoLog sliding scale. Currently no reports of chest pain, shortness of breath, or palpitations. Patient is afebrile. No reports of nausea or vomiting and patient is tolerating diet. Patient will be going to [facility] today. On exam vital signs are stable. Temp is 98.3F, pulse is 97, respirations are 16, blood pressure is 154/84, oxygen saturation is 97% on room air. Cardio S1, S2 are muffled. Respiratory system shows diminished breath sounds at the bases with no wheezing or rhonchi noted. Abdomen is soft and obese, and nontender. Nervous system shows diffuse weakness. Please refer to medication reconciliation sheet for a list of medications. Patient Condition at Discharge: Stable Plan - Discharge Summary Discharge Rx Participant: No New Discharge Prescriptions: New Aztreonam [Azactam] 2 gm IVPB Q12HR 5 Days #10 vial INSULIN ASPART (NovoLOG) [NovoLOG (formulary)] 0 unit SQ ACHS vial Continue Ferrous Sulfate [Iron (65 MG Elemental)] 325 mg PO HS Loratadine [Claritin] 10 mg PO DAILY@0600 Acetaminophen Tab [Tylenol] 650 mg PO TID@0500,1300,2100 methocarbamoL [Robaxin] 500 mg PO TID@0700,1300,1900 Pantoprazole Sodium [Protonix] 40 mg PO DAILY@0600 Potassium Chloride ER [K-Dur 10] 10 meq PO DAILY@0600 Multivitamins, Thera [Multivitamin (formulary)] 1 tab PO DAILY@0600 Sodium Bicarbonate Tab 650 mg PO BID tab Acetaminophen [Tylenol 8 Hour] 650 mg PO Q6H PRN PRN Reason: Pain amLODIPine [Norvasc] 10 mg PO DAILY@0600 DULoxetine HCL [Cymbalta] 60 mg PO DAILY@0700 Furosemide [Lasix] 40 mg PO DAILY Magnesium Hydroxide [Milk of Magnesia Concentrate] 7,200 mg PO DAILY Polyethylene Glycol 3350 [Miralax] 17 gm PO DAILY@0600 Sennosides-Docusate Sodium [Senokot-S] 2 tab PO DAILY@2000 sitaGLIPtin [Januvia] 100 mg PO DAILY@0700 Morphine Sulfate ER [Ms Contin] 15 mg PO BID@0700,1999 #6 tab Hydrocodone/Acetaminophen [Fried[place] 10-325] 1 tab PO Q6H PRN #8 tab PRN Reason: Pain Discontinued Atorvastatin [Lipitor] 40 mg PO DAILY@1999 lisinopriL 40 mg PO DAILY@0600 hydrALAZINE HCL [Apresoline] 25 mg PO BID PRN #30 tab PRN Reason: Blood Pressure - High metFORMIN HCL 1,000 mg PO BID@0700,1600 Discharge Medication List Ferrous Sulfate [Iron (65 MG Elemental)] 325 mg PO HS 04/11/19 [History] Loratadine [Claritin] 10 mg PO DAILY@0600 04/25/19 [History] Acetaminophen Tab [Tylenol] 650 mg PO TID@0500,1300,2100 07/18/19 [History] Pantoprazole Sodium [Protonix] 40 mg PO DAILY@0600 07/18/19 [History] Potassium Chloride ER [K-Dur 10] 10 meq PO DAILY@0600 07/18/19 [History] methocarbamoL [Robaxin] 500 mg PO TID@0700,1300,1900 07/18/19 [History] Multivitamins, Thera [Multivitamin (formulary)] 1 tab PO DAILY@0600 08/24/19 [History] Sodium Bicarbonate Tab 650 mg PO BID tab 08/28/19 [Rx] Acetaminophen [Tylenol 8 Hour] 650 mg PO Q6H PRN 03/27/20 [History] DULoxetine HCL [Cymbalta] 60 mg PO DAILY@0700 03/27/20 [History] Furosemide [Lasix] 40 mg PO DAILY 03/27/20 [History] Magnesium Hydroxide [Milk of Magnesia Concentrate] 7,200 mg PO DAILY 03/27/20 [History] Polyethylene Glycol 3350 [Miralax] 17 gm PO DAILY@0603/27/20 [History] Sennosides-Docusate Sodium [Senokot-S] 2 tab PO DAILY@199903/27/20 [History] amLODIPine [Norvasc] 10 mg PO DAILY@0603/27/20 [History] sitaGLIPtin [Januvia] 100 mg PO DAILY@0703/27/20 [History] Aztreonam [Azactam] 2 gm IVPB Q12HR 5 Days #10 vial 04/02/20 [Rx] Hydrocodone/Acetaminophen [Friedheim 10-325] 1 tab PO Q6H PRN #8 tab 04/02/20 [Rx] INSULIN ASPART (NovoLOG) [NovoLOG (formulary)] 0 unit SQ ACHS vial 04/02/20 [Rx] Morphine Sulfate ER [Ms Contin] 15 mg PO BID@0700,1999 #6 tab 04/02/20 [Rx] Follow up Appointment(s)/Referral(s): Carlo Frederick MD [Primary Care Provider] - 1-2 days Ambulatory/Diagnostic Orders: Basic Metabolic Panel [LAB.AMB] Time Frame: 2 Days, Location: None Selected Complete Blood Count w/diff [LAB.AMB] Time Frame: 2 Days, Location: None Selected Patient Instructions/Handouts: Urinary Tract Infection in Women (DC), How to Care for Your Midline Catheter (DC) Activity/Diet/Wound Care/Special Instructions: [employer] Activity as tolerated Continue current heart healthy diabetic diet Continue to monitor blood sugars before meals at bedtime and treat accordingly with NovoLog sliding scale as needed Continue with IV antibiotic therapy for the next 5 days and then may discontinue Follow-up with primary care provider upon discharge Discharge Disposition: TRANSFER TO SNF/ECF
--- NOTE | 2020-04-02 15:41 | PN ---
PROGRESS NOTE DATE OF SERVICE: 04/02/2020 REASON FOR FOLLOWUP: Urinary tract Infection, multiple antibiotic allergies. INTERVAL HISTORY: Patient is currently afebrile, patient is breathing comfortably. Denies having any chest pain or cough. No nausea, no abdominal pain or pain in the right leg. PHYSICAL EXAMINATION: Blood pressure 154/84 with a pulse of 90, temperature 98.3, she is 97% on room air. General description is an elderly female lying in bed in no distress. RESPIRATORY SYSTEM: Unlabored breathing, clear to auscultation anteriorly. HEART: S1, S2. Regular rate and rhythm. Right leg swelling and redness has improved. LABS: Hemoglobin 7.8, white count 6.1. IMPRESSION AND PLAN: Patient with a UTI infection with Pseudomonas and Proteus with no oral option available. Patient is responding to Azactam which will be continued another five days through a midline, continue supportive care. MMODL / IJN: [id number] /
== END 2020-04-02 14:54 | DRG 872 ==
LOC: EC 04:14 → 3SCARD 06:05 → 4SSUR 03-31 21:08
PROVIDERS: ADMIT Hospitalist; ATTEND Hospitalist
PROC: 05HD33Z Insertion of Infusion Device into Right Cephalic Vein, Percutaneous Approach (ICD-10-PCS; principal; 2020-04-02 18:10)
DX: A41.9 Sepsis, unspecified organism (principal); N17.9 Acute kidney failure, unspecified; E87.2 Acidosis; I13.0 Hypertensive heart and chronic kidney disease with heart failure and stage 1 through stage 4 chronic kidney disease, or unspecified chronic kidney disease; L03.115 Cellulitis of right lower limb; N39.0 Urinary tract infection, site not specified; D63.1 Anemia in chronic kidney disease; I50.9 Heart failure, unspecified; E11.22 Type 2 diabetes mellitus with diabetic chronic kidney disease; E11.42 Type 2 diabetes mellitus with diabetic polyneuropathy; N18.3 Chronic kidney disease, stage 3 (moderate); I95.9 Hypotension, unspecified; Z89.612 Acquired absence of left leg above knee; E11.51 Type 2 diabetes mellitus with diabetic peripheral angiopathy without gangrene; E66.01 Morbid (severe) obesity due to excess calories; Z93.3 Colostomy status; J44.9 Chronic obstructive pulmonary disease, unspecified; I48.0 Paroxysmal atrial fibrillation; M79.7 Fibromyalgia; K21.9 Gastro-esophageal reflux disease without esophagitis; E78.5 Hyperlipidemia, unspecified; G47.33 Obstructive sleep apnea (adult) (pediatric); G89.29 Other chronic pain; G43.909 Migraine, unspecified, not intractable, without status migrainosus; F41.9 Anxiety disorder, unspecified; F32.9 Major depressive disorder, single episode, unspecified; M85.80 Other specified disorders of bone density and structure, unspecified site; E87.5 Hyperkalemia; M54.5 Low back pain; R53.81 Other malaise; R32 Unspecified urinary incontinence; B96.5 Pseudomonas (aeruginosa) (mallei) (pseudomallei) as the cause of diseases classified elsewhere; I25.2 Old myocardial infarction; Z68.39 Body mass index [BMI] 39.0-39.9, adult; Z79.899 Other long term (current) drug therapy; Z79.84 Long term (current) use of oral hypoglycemic drugs; Z79.891 Long term (current) use of opiate analgesic; Z91.048 Other nonmedicinal substance allergy status; Z86.718 Personal history of other venous thrombosis and embolism; Z87.01 Personal history of pneumonia (recurrent); Z87.19 Personal history of other diseases of the digestive system; Z98.84 Bariatric surgery status; Z86.14 Personal history of Methicillin resistant Staphylococcus aureus infection; Z98.890 Other specified postprocedural states; Z98.51 Tubal ligation status; Z95.828 Presence of other vascular implants and grafts; Z96.641 Presence of right artificial hip joint; Z87.440 Personal history of urinary (tract) infections; Z87.442 Personal history of urinary calculi; Z86.19 Personal history of other infectious and parasitic diseases; Z87.891 Personal history of nicotine dependence; Z87.11 Personal history of peptic ulcer disease; Z88.1 Allergy status to other antibiotic agents; Z91.040 Latex allergy status; Z91.010 Allergy to peanuts; Z88.0 Allergy status to penicillin; Z88.7 Allergy status to serum and vaccine; Z88.8 Allergy status to other drugs, medicaments and biological substances; Z82.49 Family history of ischemic heart disease and other diseases of the circulatory system; Z83.3 Family history of diabetes mellitus; Z80.9 Family history of malignant neoplasm, unspecified
CPT/HCPCS: 36410; 36415; 71045; 76937; 80048; 80053; 81001; 82550; 82728; 83540; 83550; 83605; 85025; 85027; 85610; 85730; 87040; 87077; 87086; 87186; 93005; 96365; 96367; 99285

== ENCOUNTER 2020-07-28 21:18 | Inpatient (IN) | payer MEDICARE, OTHER ==
--- NOTE | 2020-07-28 22:04 | ED ---
SOB HPI - General Chief Complaint: Shortness of Breath Stated Complaint: +COVID Time Seen by Provider: 07/28/20 21:45 Source: patient, EMS Mode of arrival: EMS Limitations: no limitations - History of Present Illness Initial Comments: This patient is a 69-year-old woman sent from residential with complaint of worsening cough and shortness of breath. The patient states she has been having a cough and a little shortness of breath going back about one week. She states things been getting worse for a day to 2. Patient reportedly had been diagnosed with coronavirus. Patient is not aware of fevers. Denies chest pain. Denies any swelling or pain in her leg. Has not noted change in urination. Did not note any change in output from her ostomy. MD Complaint: shortness of breath, cough Onset/Timin -: week(s) Severity scale (1-10): 0 Improves With: nothing Worsens With: nothing Known History Of: COPD Associated Symptoms: cough, sputum production Treatments Prior to Arrival: oxygen - Related Data Home Medications Medication Instructions Recorded Confirmed Ferrous Sulfate [Iron (65 MG 325 mg PO DAILY 04/11/19 07/28/20 Elemental)] Loratadine [Claritin] 10 mg PO DAILY@0600 04/25/19 07/28/20 Acetaminophen Tab [Tylenol] 650 mg PO TID@0500,1300,2100 07/18/19 07/28/20 Pantoprazole Sodium [Protonix] 40 mg PO DAILY@0600 07/18/19 07/28/20 Potassium Chloride ER [K-Dur 10] 10 meq PO DAILY@0607/18/19 07/28/20 methocarbamoL [Robaxin] 500 mg PO TID@0700,1300,1900 07/18/19 07/28/20 Acetaminophen [Tylenol 8 Hour] 650 mg PO Q6H PRN 03/27/20 07/28/20 DULoxetine HCL [Cymbalta] 60 mg PO DAILY@69903/27/20 07/28/20 Furosemide [Lasix] 40 mg PO DAILY 03/27/20 07/28/20 Polyethylene Glycol 3350 [Miralax] 17 gm PO DAILY@59903/27/20 07/28/20 Sennosides-Docusate Sodium 2 tab PO DAILY@199903/27/20 07/28/20 [Senokot-S] amLODIPine [Norvasc] 10 mg PO DAILY@0600 03/27/20 07/28/20 sitaGLIPtin [Januvia] 100 mg PO DAILY@0700 03/27/20 07/28/20 Atorvastatin [Lipitor] 40 mg PO HS 07/28/20 07/28/20 Dexamethasone [Decadron] 6 mg PO DAILY 07/28/20 07/28/20 Guaifenesin/Dextromethorphan 10 ml PO Q4H PRN 07/28/20 07/28/20 [guaiFENesin DM] Metoprolol Tartrate [Lopressor] 25 mg PO Q12H 07/28/20 07/28/20 Zinc Gluconate [Zinc] 50 mg PO DAILY 07/28/20 07/28/20 lisinopriL [Zestril] 10 mg PO HS 07/28/20 07/28/20 metFORMIN HCL [Glucophage] 1,000 mg PO BID 07/28/20 07/28/20 Previous Rx's Medication Instructions Recorded Sodium Bicarbonate Tab 650 mg PO BID tab 08/28/19 Hydrocodone/Acetaminophen [Lutz 1 tab PO Q6H PRN #8 tab 04/02/20 10-325] Morphine Sulfate ER [Ms Contin] 15 mg PO BID@0700,1999 #6 tab 04/02/20 Allergies Allergy/AdvReac Type Severity Reaction Status Date / Time adhesive tape Allergy Severe Rash/Hives Verified 07/28/20 23:03 cephalexin monohydrate Allergy Severe Rash/Hives Verified 07/28/20 23:03 [From Keflex] influenza virus vaccine, Allergy Severe Anaphylaxis Verified 07/28/20 23:03 specific [influenza virus vacc,specific] latex Allergy Severe Rash/Hives Verified 07/28/20 23:03 peanut Allergy Severe Anaphylaxis Verified 07/28/20 23:03 Penicillins Allergy Severe Swelling Verified 07/28/20 23:03 tetanus toxoid, adsorbed Allergy Intermediate Rash/Hives Verified 07/28/20 23:03 baclofen Allergy Unknown Verified 07/28/20 23:03 Influenza Virus Vaccines Allergy Anaphylaxis Verified 07/28/20 23:03 Review of Systems ROS Statement: Those systems with pertinent positive or pertinent negative responses have been documented in the HPI. ROS Other: All systems not noted in ROS Statement are negative. Constitutional: Denies: fever Respiratory: Reports: cough, dyspnea. Denies: wheezes, hemoptysis Cardiovascular: Denies: chest pain, orthopnea, edema, syncope Gastrointestinal: Denies: abdominal pain, vomiting, diarrhea, constipation Genitourinary: Denies: dysuria, hematuria Musculoskeletal: Denies: back pain Skin: Denies: rash Neurological: Denies: headache, weakness, numbness Past Medical History Past Medical History: Atrial Fibrillation, Diabetes Mellitus, Deep Vein Thrombosis (DVT), Fibromyalgia, GERD/Reflux, GI Bleed, Hyperlipidemia, Hypertension, Pneumonia, Renal Disease, Skin Disorder, Sleep Apnea/CPAP/BIPAP, Supraventricular Tachycardia (SVT), Vascular Disorder Additional Past Medical History / Comment(s): NIDDM type II, neuropathy bilateral hands/R foot, CKD stage III, UTIs, past urinary obstruction/reflux with IDC, sepsis/septic shock/septicemia, kidney stone which pt passed, chronic blood loss anemia, gastric ulcer, hemorrhoids, lower GI bleed, bowel obstruction from infection per pt-has colostomy, chronic low back pain, migraines, muscle weakness, 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, ALEX without device, past decubitus coccyx-pt states finally healed, cellulitis R lower leg, dermatitis, eczema, sinus problems, lower jaw deteriorating Last Myocardial Infarction Date:: unknown History of Any Multi-Drug Resistant Organisms: MRSA, VRE Date of last positivie culture/infection: 08/27/19 MRSA; 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 Source:: URINE-MRSA; Urine-VRE & ESBL Past Surgical History: Adenoidectomy, Bariatric Surgery, Bowel Resection, Cholecystectomy, Joint Replacement, Orthopedic Surgery, Tonsillectomy, Tubal Ligation Additional Past Surgical History / Comment(s): L total knee with infection/hard farooq removed and cemented then later replaced and then L BKA, total R hip replacement, ORIF L hip, bilateral heel spur removal, bilateral carpal tunnel releases, I&D R turner, leann filter, colostomy, gastric bypass/loreta en Y, panniculectomy, EGD, colonoscopies, hemorrhoidectomy, D&Cs, hysteroscopies, teeth extractions, infusaport placed/removed. Past Anesthesia/Blood Transfusion Reactions: Blood Transfusion Reaction Additional Past Anesthesia/Blood Transfusion Reaction / Comment(s): Pt denies reaction. Past Psychological History: Anxiety, Depression Smoking Status: Former smoker - Past Family History Father Family Medical History: Myocardial Infarction (PR) Additional Family Medical History / Comment(s): AT AGE 46-PR Mother Family Medical History: Diabetes Mellitus Additional Family Medical History / Comment(s): AT AGE 66 FROM COMPLICATI ONS FROM DM. MOTHER HAD MIs WITH HER FIRST PR WHILE IN HER 50S. Sister(s) Family Medical History: Diabetes Mellitus Brother(s) Family Medical History: Diabetes Mellitus Daughter(s) Family Medical History: Cancer Son(s) Family Medical History: No Reported History General Exam Limitations: no limitations General appearance: alert, in no apparent distress Head exam: Present: atraumatic, normocephalic Eye exam: Present: normal appearance. Absent: scleral icterus, conjunctival injection ENT exam: Present: mucous membranes dry Respiratory exam: Present: wheezes, rhonchi. Absent: respiratory distress, rales, stridor, accessory muscle use Cardiovascular Exam: Present: normal rhythm, irregular rhythm, normal heart sounds. Absent: systolic murmur, diastolic murmur, rubs, gallop GI/Abdominal exam: Present: soft, other (There is a left-sided colostomy with moderately firm output.). Absent: distended, tenderness, guarding, rebound, rigid, mass Extremities exam: Present: normal inspection, normal capillary refill, other (Above-knee amputation). Absent: pedal edema, calf tenderness Back exam: Present: normal inspection Neurological exam: Present: alert. Absent: oriented X3, motor sensory deficit Skin exam: Present: warm, dry, intact, normal color. Absent: rash Course Vital Signs 07/28/20 07/28/20 07/28/20 21:23 22:00 22:47 Temperature 97.9 F Pulse Rate 80 80 Respiratory 20 22 20 Rate Blood Pressure 112/69 104/63 O2 Sat by Pulse 95 91 L Oximetry 07/29/20 07/29/20 07/29/20 01:17 02:59 06:09 Temperature Pulse Rate 87 93 104 H Respiratory 18 16 18 Rate Blood Pressure 122/85 106/84 92/50 O2 Sat by Pulse 96 92 L 95 Oximetry 07/29/20 07/29/20 07/29/20 07:00 10:55 12:30 Temperature 99.2 F 99.3 F Pulse Rate 92 94 97 Respiratory 22 24 22 Rate Blood Pressure 110/62 134/67 138/63 O2 Sat by Pulse 96 95 95 Oximetry 07/29/20 07/29/20 14:32 17:00 Temperature 100.4 F H Pulse Rate 93 Respiratory 18 Rate Blood Pressure 114/61 O2 Sat by Pulse 93 L 95 Oximetry Medical Decision Making - Medical Decision Making Patient is a 69-year-old woman in from residential with decreased oxygen saturations and recent Covid diagnosis. D-dimer is elevated. Renal function does not support load, patient will have VQ scan and is given dose of Lovenox until this can be obtained. Case is discussed with the admitting service. Treatment recommendations incorporated. - Lab Data Result diagrams: 07/28/20 22:41 07/28/20 22:41 Lab Results 07/28/20 07/28/20 07/28/20 Range/Units 22:41 22:41 22:41 WBC 5.0 (3.8-10.6) k/uL RBC 3.01 L (3.80-5.40) m/uL Hgb 8.2 L (11.4-16.0) gm/dL Hct 26.3 L (34.0-46.0) % MCV 87.5 (80.0-100.0) fL MCH 27.4 (25.0-35.0) pg MCHC 31.3 (31.0-37.0) g/dL RDW 17.7 H (11.5-15.5) % Plt Count 262 (150-450) k/uL MPV 7.8 Neutrophils % 67 % Lymphocytes % 25 % Monocytes % 5 % Eosinophils % 1 % Basophils % 1 % Neutrophils # 3.3 (1.3-7.7) k/uL Lymphocytes # 1.3 (1.0-4.8) k/uL Monocytes # 0.2 (0-1.0) k/uL Eosinophils # 0.1 (0-0.7) k/uL Basophils # 0.0 (0-0.2) k/uL Hypochromasia Marked Anisocytosis Slight PT 10.6 (9.0-12.0) sec INR 1.0 (<1.2) APTT 24.9 (22.0-30.0) sec D-Dimer 1.98 H (<0.60) mg/L FEU Sodium 144 (137-145) mmol/L Potassium 5.1 (3.5-5.1) mmol/L Chloride 112 H (98-107) mmol/L Carbon Dioxide 25 (22-30) mmol/L Anion Gap 7 mmol/L BUN 36 H (7-17) mg/dL Creatinine 1.51 H (0.52-1.04) mg/dL Est GFR (CKD-EPI)AfAm 40 (>60 ml/min/1.73 sqM) Est GFR (CKD-EPI)NonAf 35 (>60 ml/min/1.73 sqM) Glucose 125 H (74-99) mg/dL Plasma Lactic Acid Maximus (0.7-2.0) mmol/L Calcium 8.0 L (8.4-10.2) mg/dL Total Bilirubin 0.5 (0.2-1.3) mg/dL AST 39 H (14-36) U/L ALT 13 (4-34) U/L Alkaline Phosphatase 164 H (38-126) U/L Troponin I (0.000-0.034) ng/mL NT-Pro-B Natriuret Pep pg/mL Total Protein 6.8 (6.3-8.2) g/dL Albumin 2.7 L (3.5-5.0) g/dL 07/28/20 07/28/20 07/28/20 Range/Units 22:41 22:41 22:41 WBC (3.8-10.6) k/uL RBC (3.80-5.40) m/uL Hgb (11.4-16.0) gm/dL Hct (34.0-46.0) % MCV (80.0-100.0) fL MCH (25.0-35.0) pg MCHC (31.0-37.0) g/dL RDW (11.5-15.5) % Plt Count (150-450) k/uL MPV Neutrophils % % Lymphocytes % % Monocytes % % Eosinophils % % Basophils % % Neutrophils # (1.3-7.7) k/uL Lymphocytes # (1.0-4.8) k/uL Monocytes # (0-1.0) k/uL Eosinophils # (0-0.7) k/uL Basophils # (0-0.2) k/uL Hypochromasia Anisocytosis PT (9.0-12.0) sec INR (<1.2) APTT (22.0-30.0) sec D-Dimer (<0.60) mg/L FEU Sodium (137-145) mmol/L Potassium (3.5-5.1) mmol/L Chloride (98-107) mmol/L Carbon Dioxide (22-30) mmol/L Anion Gap mmol/L BUN (7-17) mg/dL Creatinine (0.52-1.04) mg/dL Est GFR (CKD-EPI)AfAm (>60 ml/min/1.73 sqM) Est GFR (CKD-EPI)NonAf (>60 ml/min/1.73 sqM) Glucose (74-99) mg/dL Plasma Lactic Acid Maximus 1.1 (0.7-2.0) mmol/L Calcium (8.4-10.2) mg/dL Total Bilirubin (0.2-1.3) mg/dL AST (14-36) U/L ALT (4-34) U/L Alkaline Phosphatase (38-126) U/L Troponin I 0.015 (0.000-0.034) ng/mL NT-Pro-B Natriuret Pep 03591 pg/mL Total Protein (6.3-8.2) g/dL Albumin (3.5-5.0) g/dL Disposition Clinical Impression: COVID-19, Elevated d-dimer, CHF (congestive heart failure), Acute kidney injury, Anemia Disposition: ADMITTED IP TO THIS [facility] Condition: Serious
[2020-07-28] MEDS ORDERED: IPRATROPIUM-ALBUTEROL 3 ML NEB INHALATION STA (22:08)
--- NOTE | 2020-07-28 22:22 | XR ---
EXAMINATION TYPE: XR chest 1V portable DATE OF EXAM: 07/28/2020 COMPARISON: 03/27/2020 HISTORY: Short of breath TECHNIQUE: FINDINGS: There is patchy pulmonary edema. Heart appears somewhat enlarged. Heart appears shifted to the left side. Thoracic aorta is atheromatous. IMPRESSION: There is new pulmonary edema compared to old exam and could be congestive heart failure o r RDS. Possible atelectasis in the left lower lobe.
[2020-07-28] MEDS ORDERED: ALBUTEROL HFA INHALER INHALATION STA (22:45)
[2020-07-28 22:50] LABS: Anisocytosis Slight; Basophils % (A) 1 %; Eosinophils # (A) 0.1 k/uL (0-0.7); Eosinophils % (A) 1 %; HCT 26.3 % (34.0-46.0); HGB 8.2 gm/dL (11.4-16.0); Hypochromasia Marked; Lymphocytes # (A) 1.3 k/uL (1.0-4.8); Lymphocytes % (A) 25 %; MCH 27.4 pg (25.0-35.0); MCHC 31.3 g/dL (31.0-37.0); MCV 87.5 fL (80.0-100.0); Mean Platelet Volume 7.8; Monocytes # (A) 0.2 k/uL (0-1.0); Monocytes % (A) 5 %; Neutrophils # (A) 3.3 k/uL (1.3-7.7); Neutrophils % (A) 67 %; Platelet Count 262 k/uL (150-450); RBC 3.01 m/uL (3.80-5.40); RDW 17.7 % (11.5-15.5)
[2020-07-28 23:03] LABS: Albumin 2.7 g/dL (3.5-5.0); Partial Thromboplastin Time 24.9 sec (22.0-30.0); Potassium 5.1 mmol/L (3.5-5.1); Prothrombin Time 10.6 sec (9.0-12.0); Total Bilirubin 0.5 mg/dL (0.2-1.3); Total Protein 6.8 g/dL (6.3-8.2)
[2020-07-28 23:04] LABS: D-Dimer 1.98 mg/L FEU (<0.60)
[2020-07-28] MEDS ORDERED: ENOXAPARIN 100 MG/ML SYRINGE SQ STA (23:10)
[2020-07-29] MEDS ORDERED: NITROGLYCERIN OINT 1 INCH/GM PACKET TOPICAL STA (01:28)
[2020-07-29] MEDS ORDERED: FUROSEMIDE 10 MG/ML 4 ML VIAL IV STA (01:28)
[2020-07-29] MEDS ORDERED: ENOXAPARIN 40 MG/0.4 ML SYRINGE SQ SCH (02:00)
[2020-07-29] MEDS: FUROSEMIDE 10 MG/ML 4 ML VIAL IV SCH ×2 (02:12→14:26)
[2020-07-29] MEDS: SODIUM CHLORIDE 0.9% 1,000 ML IV SCH (02:15)
[2020-07-29] MEDS ORDERED: NITROGLYCERIN OINT 1 INCH/GM PACKET TOPICAL SCH (06:00)
--- NOTE | 2020-07-29 08:48 | NM ---
EXAMINATION TYPE: NM pul perfusion DATE OF EXAM: 07/29/2020 COMPARISON: Chest x-ray 07/28/2020 HISTORY: Shortness of breath Following administration of 4.8 mCi Tc 99m MAA. Images obtained post injection. FINDINGS: Ventilation images are not submitted. There is subsegmental perfusion defects seen bilaterally. There is a corresponding x-ray abnormality with diffuse lung disease bilaterally. IMPRESSION: No ventilation images are submitted therefore probability for pulmonary embolism cannot BE obtained. There are subsegmental perfusion defects bilaterally with corresponding x-ray abnormality. Underlying pulmonary embolism not excluded.
[2020-07-29] MEDS ORDERED: ENOXAPARIN 100 MG/ML SYRINGE SQ SCH (11:00)
--- NOTE | 2020-07-29 11:44 | ECHOF ---
Referral Reason:Heart Failure MEASUREMENTS -------- HEIGHT: 157.5 cm WEIGHT: 96.6 kg BP: 92/50 RVIDd: 4.3 cm (< 3.3) IVSd: 2.0 cm (0.6 - 1.1) LVIDd: 3.0 cm (3.9 - 5.3) LVPWd: 2.3 cm (0.6 - 1.1) IVSs: 2.5 cm LVIDs: 1.6 cm LVPWs: 2.5 cm LAESV Index (A-L): 45.31 ml/m Ao Diam: 3.3 cm (2.0 - 3.7) AV Cusp: 2.4 cm (1.5 - 2.6) LA Diam: 5.3 cm (2.7 - 3.8) RAP: 5.00 mmHg RVSP: 52.75 mmHg FINDINGS -------- This was a technically difficult study with suboptimal apical views. The left ventricular size is normal. There is severe concentric left ventricular hypertrophy. Ove rall left ventricular systolic function is normal with, an EF between 55 - 60 %. The right ventricle is moderate to severely enlarged. LA is severely dilated >40 ml/m2 The right atrium is mildly enlarged. 5.0mg of Lumason was utilized for enhancement of images Interatrial and interventricular septum intact. The aortic valve was not well visualized. There is mild aortic regurgitation. There is no evidenc e of aortic stenosis. Moderate mitral regurgitation is present. Mild mitral stenosis. Moderate to severe tricuspid regurgitation present. There is moderate to severe pulmonary hypertens ion. The right ventricular systolic pressure, as measured by Doppler, is 52.75mmHg. There is no pulmonic regurgitation present. The aortic root size is normal. IVC Not well visulized. There is no pericardial effusion. CONCLUSIONS -------- 1. The left ventricular size is normal. 2. There is severe concentric left ventricular hypertrophy. 3. Overall left ventricular systolic function is normal with, an EF between 55 - 60 %. 4. The right ventricle is moderate to severely enlarged. 5. LA is severely dilated >40 ml/m2 6. The right atrium is mildly enlarged. 7. There is mild aortic regurgitation. 8. Moderate mitral regurgitation is present. 9. Mild mitral stenosis. 10. Moderate to severe tricuspid regurgitation present. 11. There is moderate to severe pulmonary hypertension. 12. The right ventricular systolic pressure, as measured by Doppler, is 52.75mmHg. EMD TEACHER: Misty Pitts RDCS
--- NOTE | 2020-07-29 12:16 | P.CRDCN ---
History of Present Illness History of present illness: HISTORY OF PRESENTING ILLNESS This is a pleasant 69-year-old female past medical history significant for diabetes mellitus, hypertension, dyslipidemia, chronic kidney disease, obst ructive sleep apnea, diastolic heart failure and left geysp-[id number]-[id number] amputation secondary to infection. 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 We have been asked to see in consultation for heart failure. She was diagnosed with COVID 3 weeks ago at the [facility]. She states initially her symptoms were mild however in the last 3 days she has noticed an increase in shortness of breath and coughing. She denies chest pain, dizziness or palpitations. EKG reveals atrial fibrillation heart rate 100 with left axis deviation and poor R-wave progression. Chest xray revealed pulmonary edema and left lower lobe atelectasis. VQ scan are inconclusive. Echocardiogram obtained reveals preserved LV systolic function with ejection fraction 55-60%, severely dilated left atrium, moderate mitral regurgitation, mild mitral stenosis, moderate to severe tricuspid regurgitation and moderate to severe pulmonary hypertension with RVSP of 52 mmHg. Laboratory data reviewed, WBC 5, hemoglobin 8.2, platelets 262, d-dimer 1.98, sodium 144, potassium 5.1, creatinine 1.51, troponin negative 3, proBNP 10,000. Current daily cardiac medications include amlodipine 10 mg daily, Lasix 40 mg daily, atorvastatin 40 mg daily, lisinopril 10 mg daily and Lopressor 25 mg twice a day. REVIEW OF SYSTEMS At the time of my exam: CONSTITUTIONAL: Denies fever or chills. CARDIOVASCULAR: Complains of shortness of breath. Denies chest pain, orthopnea, PND or palpitations. RESPIRATORY: Complains of cough. GASTROINTESTINAL: Denies abdominal pain, diarrhea, constipation, nausea or vomiting. MUSCULOSKELETAL: Denies myalgias. NEUROLOGIC: Denies numbness, tingling or weakness. ENDOCRINE: Denies fatigue, weight change, polydipsia or polyurina. GENITOURINARY: Denies burning, hematuria or urgency with micturation. HEMATOLOGIC: Denies history of anemia or bleeding. PHYSICAL EXAMINATION Blood pressure 134/67 heart rate 94 afebrile and maintaining oxygen saturation on nasal cannula. CONSTITUTIONAL: No apparent distress. HEENT: Head is normocephalic. Pupils are equal, round. Sclerae anicteric. Mucous membranes of the mouth are moist. No JVD. No carotid bruit. CHEST EXAMINATION: Scattered rhonchi, no wheezes or rales. No chest wall tenderness is noted on palpation or with deep breathing. Diminished bilaterally. HEART EXAMINATION: Irregular rate and rhythm. S1, S2 heard. Systolic ejection murmur at the apex, no gallops or rub. ABDOMEN: Soft, nontender. Positive bowel sounds. EXTREMITIES: Left above the knee amputation, no swelling on the right. NEUROLOGIC EXAMINATION: Patient is awake, alert and oriented x3. ASSESSMENT New onset paroxysmal atrial fibrillation COVID 19 Acute on chronic diastolic heart failure Chronic kidney disease Hypertension Dyslipidemia Diabetes mellitus Morbid obesity, BMI 39 PLAN Continue IV diuresis. Follow renal function and electrolytes in the morning. Document accurate intake and output along with daily weights. Hold norvasc and decrease lisinopril to 5 mg daily. Continue beta blockers as previously ordered. May increase if need for tachycardia. Initiate eliquis 5 mg BID for thromboembolic protection. This has been explained to the patient in detail. Further recommendations to follow based on clinical course. Thank you kindly for this consultation. Nurse Practitioner note has been reviewed, I agree with a documented findings and plan of care. Patient was seen and examined. Past Medical History Past Medical History: Atrial Fibrillation, Diabetes Mellitus, Deep Vein Thrombosis (DVT), Fibromyalgia, GERD/Reflux, GI Bleed, Hyperlipidemia, Hypertension, Pneumonia, Renal Disease, Skin Disorder, Sleep Apnea/CPAP/BIPAP, Supraventricular Tachycardia (SVT), Vascular Disorder Additional Past Medical History / Comment(s): NIDDM type II, neuropathy bilateral hands/R foot, CKD stage III, UTIs, past urinary obstruction/reflux with IDC, sepsis/septic shock/septicemia, kidney stone which pt passed, chronic blood loss anemia, gastric ulcer, hemorrhoids, lower GI bleed, bowel obstruction from infection per pt-has colostomy, chronic low back pain, migraines, muscle weakness, 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, ALEX without device, past decubitus coccyx-pt states finally healed, cellulitis R lower leg, dermatitis, eczema, sinus problems, lower jaw deteriorating Last Myocardial Infarction Date:: unknown History of Any Multi-Drug Resistant Organisms: MRSA, VRE Date of last positivie culture/infection: 08/27/19 MRSA; 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 Source:: URINE-MRSA; Urine-VRE & ESBL Past Surgical History: Adenoidectomy, Bariatric Surgery, Bowel Resection, Cholecystectomy, Joint Replacement, Orthopedic Surgery, Tonsillectomy, Tubal Ligation Additional Past Surgical History / Comment(s): L total knee with infection/hardware removed and cemented then later replaced and then L BKA, to [place] R hip replacement, ORIF L hip, bilateral heel spur removal, bilateral carpal tunnel releases, I&D R turner, leann filter, colostomy, gastric bypass/loreta en Y, panniculectomy, EGD, colonoscopies, hemorrhoidectomy, D&Cs, hysteroscopies, teeth extractions, infusaport placed/removed. Past Anesthesia/Blood Transfusion Reactions: Blood Transfusion Reaction Additional Past Anesthesia/Blood Transfusion Reaction / Comment(s): Pt denies reaction. Past Psychological History: Anxiety, Depression Smoking Status: Former smoker - Past Family History Father Family Medical History: Myocardial Infarction ([place]) Additional Family Medical History / Comment(s): AT AGE 46-[place] Mother Family Medical History: Diabetes Mellitus Additional Family Medical History / Comment(s): AT AGE 66 FROM COMPLICATIONS FROM DM. MOTHER HAD MIs WITH HER FIRST [place] WHILE IN HER 50S. Sister(s) Family Medical History: Diabetes Mellitus Brother(s) Family Medical History: Diabetes Mellitus Daughter(s) Family Medical History: Cancer Son(s) Family Medical History: No Reported History Medications and Allergies Home Medications Medication Instructions Recorded Confirmed Type Ferrous Sulfate [Iron (65 MG 325 mg PO DAILY 04/11/19 07/28/20 History Elemental)] Loratadine [Claritin] 10 mg PO DAILY@0600 04/25/19 07/28/20 History Acetaminophen Tab [Tylenol] 650 mg PO TID@0500,1300,2100 07/18/19 07/28/20 History Pantoprazole Sodium [Protonix] 40 mg PO DAILY@0600 07/18/19 07/28/20 History Potassium Chloride ER [K-Dur 10] 10 meq PO DAILY@0600 07/18/19 07/28/20 History methocarbamoL [Robaxin] 500 mg PO TID@0700,1300,1900 07/18/19 07/28/20 History Sodium Bicarbonate Tab 650 mg PO BID tab 08/28/19 07/28/20 Rx Acetaminophen [Tylenol 8 Hour] 650 mg PO Q6H PRN 03/27/20 07/28/20 History DULoxetine HCL [Cymbalta] 60 mg PO DAILY@69903/27/20 07/28/20 History Furosemide [Lasix] 40 mg PO DAILY 03/27/20 07/28/20 History Polyethylene Glycol 3350 [Miralax] 17 gm PO DAILY@59903/27/20 07/28/20 History Sennosides-Docusate Sodium 2 tab PO DAILY@199903/27/20 07/28/20 History [Senokot-S] amLODIPine [Norvasc] 10 mg PO DAILY@59903/27/20 07/28/20 History sitaGLIPtin [Januvia] 100 mg PO DAILY@69903/27/20 07/28/20 History Hydrocodone/Acetaminophen [[place] 1 tab PO Q6H PRN #8 tab 04/02/20 07/28/20 Rx 10-325] Morphine Sulfate ER [Ms Contin] 15 mg PO BID@699,1999 #6 tab 04/02/20 07/28/20 Rx Atorvastatin [Lipitor] 40 mg PO HS 07/28/20 07/28/20 History Dexamethasone [Decadron] 6 mg PO DAILY 07/28/20 07/28/20 History Guaifenesin/Dextromethorphan 10 ml PO Q4H PRN 07/28/20 07/28/20 History [guaiFENesin DM] Metoprolol Tartrate [Lopressor] 25 mg PO Q12H 07/28/20 07/28/20 History Zinc Gluconate [Zinc] 50 mg PO DAILY 07/28/20 07/28/20 History lisinopriL [Zestril] 10 mg PO HS 07/28/20 07/28/20 History metFORMIN HCL [Glucophage] 1,000 mg PO BID 07/28/20 07/28/20 History Allergies Allergy/AdvReac Type Severity Reaction Status Date / Time adhesive tape Allergy Severe Rash/Hives Verified 07/28/20 23:03 cephalexin monohydrate Allergy Severe Rash/Hives Verified 07/28/20 23:03 [From Keflex] influenza virus vaccine, Allergy Severe Anaphylaxis Verified 07/28/20 23:03 specific [influenza virus vacc,specific] latex Allergy Severe Rash/Hives Verified 07/28/20 23:03 peanut Allergy Severe Anaphylaxis Verified 07/28/20 23:03 Penicillins Allergy Severe Swelling Verified 07/28/20 23:03 tetanus toxoid, adsorbed Allergy Intermediate Rash/Hives Verified 07/28/20 23:03 baclofen Allergy Unknown Verified 07/28/20 23:03 Influenza Virus Vaccines Allergy Anaphylaxis Verified 07/28/20 23:03 Physical Exam Vitals: Vital Signs Temp Pulse Resp BP Pulse Ox 07/29/20 10:55 99.3 F 94 24 134/67 95 07/29/20 07:00 99.2 F 92 22 110/62 96 07/29/20 06:09 104 H 18 92/50 95 07/29/20 02:59 93 16 106/84 92 L 07/29/20 01:17 87 18 122/85 96 07/28/20 22:47 80 20 104/63 91 L 07/28/20 22:00 22 07/28/20 21:23 97.9 F 80 20 112/69 95 Intake and Output 07/28/20 07/29/20 07/29/20 22:59 06:59 14:59 Output Total 300 Balance -300 Output: Urine 300 Uretheral (Coffey) 300 Other: Weight 96.615 kg Results 07/28/20 22:41 07/28/20 22:41 Cardiac Enzymes 07/28/20 07/28/20 07/29/20 Range/Units 22:41 22:41 02:04 AST 39 H (14-36) U/L Troponin I 0.015 0.013 (0.000-0.034) ng/mL 07/29/20 Range/Units 05:44 AST (14-36) U/L Troponin I 0.014 (0.000-0.034) ng/mL Coagulation 07/28/20 Range/Units 22:41 PT 10.6 (9.0-12.0) sec APTT 24.9 (22.0-30.0) sec CBC 07/28/20 Range/Units 22:41 WBC 5.0 (3.8-10.6) k/uL RBC 3.01 L (3.80-5.40) m/uL Hgb 8.2 L (11.4-16.0) gm/dL Hct 26.3 L (34.0-46.0) % Plt Count 262 (150-450) k/uL Comprehensive Metabolic Panel 07/28/20 Range/Units 22:41 Sodium 144 (137-145) mmol/L Potassium 5.1 (3.5-5.1) mmol/L Chloride 112 H (98-107) mmol/L Carbon Dioxide 25 (22-30) mmol/L BUN 36 H (7-17) mg/dL Creatinine 1.51 H (0.52-1.04) mg/dL Glucose 125 H (74-99) mg/dL Calcium 8.0 L (8.4-10.2) mg/dL AST 39 H (14-36) U/L ALT 13 (4-34) U/L Alkaline Phosphatase 164 H (38-126) U/L Total Protein 6.8 (6.3-8.2) g/dL Albumin 2.7 L (3.5-5.0) g/dL Current Medications Generic Name Dose Route Start Last Admin Trade Name Freq PRN Reason Stop Dose Admin Apixaban 5 mg 07/29/20 10:15 Apixaban 5 Mg Tab PO BID GUALBERTO Atorvastatin Calcium 40 mg 07/29/20 21:00 Atorvastatin 40 Mg Tab PO HS GUALBERTO Furosemide 40 mg 07/29/20 02:00 07/29/20 02:12 Furosemide 10 Mg/Ml 4 Ml Vial IV Not Given Q12H GUALBERTO Sodium Chloride 1,000 mls @ 20 mls/hr 07/29/20 01:45 07/29/20 02:15 Saline 0.9% IV Not Given .Q24H GUALBERTO Lisinopril 5 mg 07/30/20 09:00 Lisinopril 5 Mg Tab PO DAILY GUALBERTO Metoprolol Tartrate 25 mg 07/29/20 10:15 Metoprolol Tartrate 25 Mg Tab PO Q12H [facility] Intake and Output 07/28/20 07/29/20 07/29/20 22:59 06:59 14:59 Output Total 300 Balance -300 Output: Urine 300 Uretheral (Coffey) 300 Other: Weight 96.615 kg 07/28/20 22:41 07/28/20 22:41
[2020-07-29] MEDS: METOPROLOL TARTRATE 25 MG TAB PO SCH ×2 (12:26→21:39)
[2020-07-29] MEDS: APIXABAN 5 MG TAB PO SCH ×2 (12:27→21:39)
[2020-07-29] MEDS ORDERED: polyethylene glycoL 3350 17 GM POWD.PACK PO PRN (12:31)
[2020-07-29] MEDS ORDERED: guaiFENesin-DM 100-10MG/5ML 10 ML CUP PO PRN (12:31)
--- NOTE | 2020-07-29 12:35 | P.HPIM ---
History of Present Illness 69-year-old pleasant female was sent in from long-term has patient was hypoxic. Patient was diagnosed with covid 19 about a week ago. Patient is also found to have pulmonary edema and new onset atrial fibrillation with rapid guanako tricular rate. Patient was initiated on IV Lasix. Patient is also on beta saw. She was hypertensive because of which Norvasc was discontinued lisinopril dose was reduced. Patient baseline creatinine around 1.2 and present creatinine is around 1.5. Patient had normal ejection fraction the past with some mild concentric hypertrophy possible diastolic dysfunction. Patient although doesn't have any significant JVD with chest x-ray did look like pulmonary edema and patient has highly elevated BNP patient denied any orthopnea, paroxysmal nocturnal dyspnea patient denied any significant cough patient is presently on each liters of oxygen. Review of Systems REVIEW OF SYSTEMS: CONSTITUTIONAL: No fever, no malaise, no fatigue. HEENT: No recent visual problems or hearing problems. Denied any sore throat. CARDIOVASCULAR: No chest pain, orthopnea, PND, no palpitations, no syncope. PULMONARY:no hemoptysis. GASTROINTESTINAL: No diarrhea, no nausea, no vomiting, no abdominal pain. NEUROLOGICAL: No headaches, no weakness, no numbness. HEMATOLOGICAL: Denies any bleeding or petechiae. GENITOURINARY: Denies any burning micturition, frequency, or urgency. MUSCULOSKELETAL/RHEUMATOLOGICAL: Denies any joint pain, swelling, or any muscle pain. ENDOCRINE: Denies any polyuria or polydipsia. The rest of the 14-point review of systems is negative. Past Medical History Past Medical History: Atrial Fibrillation, Diabetes Mellitus, Deep Vein Thrombosis (DVT), Fibromyalgia, GERD/Reflux, GI Bleed, Hyperlipidemia, Hy pertension, Pneumonia, Renal Disease, Skin Disorder, Sleep Apnea/CPAP/BIPAP, Supraventricular Tachycardia (SVT), Vascular Disorder Additional Past Medical History / Comment(s): NIDDM type II, neuropathy bilateral hands/R foot, CKD stage III, UTIs, past urinary obstruction/reflux with IDC, sepsis/septic shock/septicemia, kidney stone which pt passed, chronic blood loss anemia, gastric ulcer, hemorrhoids, lower GI bleed, bowel obstruction from infection per pt-has colostomy, chronic low back pain, migraines, muscle weakness, 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, ALEX without device, past decubitus coccyx-pt states finally healed, cellulitis R lower leg, dermatitis, eczema, sinus problems, lower jaw deteriorating Last Myocardial Infarction Date:: unknown History of Any Multi-Drug Resistant Organisms: MRSA, VRE Date of last positivie culture/infection: 08/27/19 MRSA; 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 Source:: URINE-MRSA; Urine-VRE & ESBL Past Surgical History: Adenoidectomy, Bariatric Surgery, Bowel Resection, Cholecystectomy, Joint Replacement, Orthopedic Surgery, Tonsillectomy, Tubal Ligation Additional Past Surgical History / Comment(s): L total knee with infection/hardware removed and cemented then later replaced and then L BKA, total R hip replacement, ORIF L hip, bilateral heel spur removal, bilateral carpal tunnel releases, I&D R turner, leann filter, colostomy, gastric bypass/loreta en Y, panniculectomy, EGD, colonoscopies, hemorrhoidectomy, D&Cs, hysteroscopies, teeth extractions, infusaport placed/removed. Past Anesthesia/Blood Transfusion Reactions: Blood Transfusion Reaction Additional Past Anesthesia/Blood Transfusion Reaction / Comment(s): Pt denies r eaction. Past Psychological History: Anxiety, Depression Smoking Status: Former smoker - Past Family History Father Family Medical History: Myocardial Infarction ([place]) Additional Family Medical History / Comment(s): AT AGE 46-[place] Mother Family Medical History: Diabetes Mellitus Additional Family Medical History / Comment(s): AT AGE 66 FROM COMPLICATIONS FROM DM. MOTHER HAD MIs WITH HER FIRST [place] WHILE IN HER 50S. Sister(s) Family Medical History: Diabetes Mellitus Brother(s) Family Medical History: Diabetes Mellitus Daughter(s) Family Medical History: Cancer Son(s) Family Medical History: No Reported History Medications and Allergies Home Medications Medication Instructions Recorded Confirmed Type Ferrous Sulfate [Iron (65 MG 325 mg PO DAILY 04/11/19 07/28/20 History Elemental)] Loratadine [Claritin] 10 mg PO DAILY@0600 04/25/19 07/28/20 History Acetaminophen Tab [Tylenol] 650 mg PO TID@0500,1300,2100 07/18/19 07/28/20 History Pantoprazole Sodium [Protonix] 40 mg PO DAILY@0600 07/18/19 07/28/20 History Potassium Chloride ER [K-Dur 10] 10 meq PO DAILY@0607/18/19 07/28/20 History methocarbamoL [Robaxin] 500 mg PO TID@0700,1300,1900 07/18/19 07/28/20 History Sodium Bicarbonate Tab 650 mg PO BID tab 08/28/19 07/28/20 Rx Acetaminophen [Tylenol 8 Hour] 650 mg PO Q6H PRN 03/27/20 07/28/20 History DULoxetine HCL [Cymbalta] 60 mg PO DAILY@69903/27/20 07/28/20 History Furosemide [Lasix] 40 mg PO DAILY 03/27/20 07/28/20 History Polyethylene Glycol 3350 [Miralax] 17 gm PO DAILY@59903/27/20 07/28/20 History Sennosides-Docusate Sodium 2 tab PO DAILY@199903/27/20 07/28/20 History [Senokot-S] amLODIPine [Norvasc] 10 mg PO DAILY@59903/27/20 07/28/20 History sitaGLIPtin [Januvia] 100 mg PO DAILY@69903/27/20 07/28/20 History Hydrocodone/Acetaminophen [[place] 1 tab PO Q6H PRN #8 tab 04/02/20 07/28/20 Rx 10-325] Morphine Sulfate ER [Ms Contin] 15 mg PO BID@699,1999 #6 tab 04/02/20 07/28/20 Rx Atorvastatin [Lipitor] 40 mg PO HS 07/28/20 07/28/20 History Dexamethasone [Decadron] 6 mg PO DAILY 07/28/20 07/28/20 History Guaifenesin/Dextromethorphan 10 ml PO Q4H PRN 07/28/20 07/28/20 History [guaiFENesin DM] Metoprolol Tartrate [Lopressor] 25 mg PO Q12H 07/28/20 07/28/20 History Zinc Gluconate [Zinc] 50 mg PO DAILY 07/28/20 07/28/20 History lisinopriL [Zestril] 10 mg PO HS 07/28/20 07/28/20 History metFORMIN HCL [Glucophage] 1,000 mg PO BID 07/28/20 07/28/20 History Allergies Allergy/AdvReac Type Severity Reaction Status Date / Time adhesive tape Allergy Severe Rash/Hives Verified 07/28/20 23:03 cephalexin monohydrate Allergy Severe Rash/Hives Verified 07/28/20 23:03 [From Keflex] influenza virus vaccine, Allergy Severe Anaphylaxis Verified 07/28/20 23:03 specific [influenza virus vacc,specific] latex Allergy Severe Rash/Hives Verified 07/28/20 23:03 peanut Allergy Severe Anaphylaxis Verified 07/28/20 23:03 Penicillins Allergy Severe Swelling Verified 07/28/20 23:03 tetanus toxoid, adsorbed Allergy Intermediate Rash/Hives Verified 07/28/20 23:03 baclofen Allergy Unknown Verified 07/28/20 23:03 Influenza Virus Vaccines Allergy Anaphylaxis Verified 07/28/20 23:03 Physical Exam Vitals: Vital Signs Temp Pulse Resp BP Pulse Ox 07/29/20 10:55 99.3 F 94 24 134/67 95 07/29/20 07:00 99.2 F 92 22 110/62 96 07/29/20 06:09 104 H 18 92/50 95 07/29/20 02:59 93 16 106/84 92 L 07/29/20 01:17 87 18 122/85 96 07/28/20 22:47 80 20 104/63 91 L 07/28/20 22:00 22 07/28/20 21:23 97.9 F 80 20 112/69 95 Intake and Output 07/28/20 07/29/20 07/29/20 22:59 06:59 14:59 Output Total 300 Balance -300 Output: Urine 300 Uretheral (Coffey) 300 Other: Weight 96.615 kg PHYSICAL EXAMINATION: GENERAL: The patient is alert and oriented x3, not in any acute distress. Well developed, well nourished. HEENT: Pupils are round and equally reacting to light. EOMI. No scleral icterus. No conjunctival pallor. Normocephalic, atraumatic. No pharyngeal erythema. No thyromegaly. CARDIOVASCULAR: S1 and S2 present. No murmurs, rubs, or gallops. PULMONARY: Bibasilar crackles were appreciated ABDOMEN: Soft, nontender, nondistended, normoactive bowel sounds. No palpable organomegaly. MUSCULOSKELETAL: No joint swelling or deformity. EXTREMITIES: No cyanosis, clubbing, or pedal edema. NEUROLOGICAL: Gross neurological examination did not reveal any focal deficits. SKIN: No rashes. Results CBC & Chem 7: 07/28/20 22:41 07/28/20 22:41 Labs: Abnormal Lab Results - Last 24 Hours (Table) 07/28/20 07/28/20 07/28/20 Range/Units 22:41 22:41 22:41 RBC 3.01 L (3.80-5.40) m/uL Hgb 8.2 L (11.4-16.0) gm/dL Hct 26.3 L (34.0-46.0) % RDW 17.7 H (11.5-15.5) % D-Dimer 1.98 H (<0.60) mg/L FEU Chloride 112 H (98-107) mmol/L BUN 36 H (7-17) mg/dL Creatinine 1.51 H (0.52-1.04) mg/dL Glucose 125 H (74-99) mg/dL Calcium 8.0 L (8.4-10.2) mg/dL AST 39 H (14-36) U/L Alkaline Phosphatase 164 H (38-126) U/L Albumin 2.7 L (3.5-5.0) g/dL Assessment and Plan Plan: -Acute hypoxic respiratory failure: Secondary to most probably congestive heart failure chronic diastolic dysfunction with acute exacerbation along with Covid 90 pneumonia. Patient will be continued on diuretics -Covid 19 pneumonia: Patient will be continued on Decadron - paroxysmal A. 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
[2020-07-29] MEDS: methocarbamoL 500 MG TAB PO SCH ×2 (14:20→21:39)
[2020-07-29] MEDS: HYDROcodone/APAP 10-325MG 1 EACH TAB PO PRN ×2 (14:23→21:40)
[2020-07-29 20:29] LABS: Glucose,Whole Blood 152 mg/dL (75-99)
[2020-07-29] MEDS: SODIUM BICARBONATE TAB 650 MG TAB PO SCH (21:38)
[2020-07-29] MEDS: SENNOSIDES-DOCUSATE SODIUM 1 EACH TAB PO SCH (21:39)
[2020-07-29] MEDS: FAMOTIDINE 20 MG TAB PO SCH (21:39)
[2020-07-29] MEDS: ATORVASTATIN 40 MG TAB PO SCH (21:39)
[2020-07-30] MEDS: SODIUM CHLORIDE 0.9% 1,000 ML IV SCH (01:22)
[2020-07-30] MEDS: FUROSEMIDE 10 MG/ML 4 ML VIAL IV SCH ×2 (01:22→13:35)
[2020-07-30 05:59] LABS: Glucose,Whole Blood 143 mg/dL (75-99)
[2020-07-30] MEDS: methocarbamoL 500 MG TAB PO SCH ×3 (07:06→22:51)
[2020-07-30] MEDS: DULoxetine HCL 60 MG CAPSULE.DR PO SCH (07:06)
[2020-07-30] MEDS: LINAGLIPTIN 5 MG TABLET PO SCH (07:06)
[2020-07-30 08:37] LABS: Calcium 8.1 mg/dL (8.4-10.2); Potassium 4.4 mmol/L (3.5-5.1)
[2020-07-30] MEDS: SODIUM BICARBONATE TAB 650 MG TAB PO SCH ×2 (08:39→21:02)
[2020-07-30] MEDS: lisinopriL 5 MG TAB PO SCH (08:39)
[2020-07-30] MEDS: FAMOTIDINE 20 MG TAB PO SCH (08:40)
[2020-07-30] MEDS: ZINC SULFATE 220 MG CAP PO SCH (08:40)
[2020-07-30] MEDS: HYDROcodone/APAP 10-325MG 1 EACH TAB PO PRN ×2 (08:40→21:03)
[2020-07-30] MEDS: dexAMETHasone 2 MG TAB PO SCH (08:40)
[2020-07-30] MEDS: METOPROLOL TARTRATE 25 MG TAB PO SCH ×2 (08:40→21:03)
[2020-07-30] MEDS: APIXABAN 5 MG TAB PO SCH ×2 (08:41→21:03)
[2020-07-30 11:02] VITALS: BMI 38.9
[2020-07-30 12:12] LABS: Glucose,Whole Blood 170 mg/dL (75-99)
--- NOTE | 2020-07-30 12:24 | P.PN ---
Subjective HISTORY OF PRESENTING ILLNESS This is a pleasant 69-year-old female past medical history significant for diabetes mellitus, hypertension, dyslipidemia, chronic kidney disease, obstructive sleep apnea, diastolic heart failure and left yrcqm-xdy-guln amputation secondary to infection. 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 She is seen and examined sitting up in bed in no acute distress. Overall she doesn't feel much different than yesterday. She states may be her breathing is mildly improved. She denies chest pain, dizziness or palpitations. Blood pressure 130/77 heart rate 95 afebrile requiring high flow oxygenation. Laboratory data reviewed, sodium 144, potassium 4.4, creatinine 1.24. 24-hour urine output 1950. Her weight is remaining the same. PHYSICAL EXAMINATION CONSTITUTIONAL: No apparent distress. HEENT: Head is normocephalic. Pupils are equal, round. Sclerae anicteric. Mucous membranes of the mouth are moist. No JVD. No carotid bruit. CHEST EXAMINATION: Scattered rhonchi, no wheezes or rales. No chest wall tenderness is noted on palpation or with deep breathing. Diminished bilaterally. HEART EXAMINATION: Irregular rate and rhythm. S1, S2 heard. Systolic ejection murmur at the apex, no gallops or rub. EXTREMITIES: Left above the knee amputation, no swelling on the right. ASSESSMENT New onset paroxysmal atrial fibrillation COVID 19 Acute on chronic diastolic heart failure Chronic kidney disease Hypertension Dyslipidemia Diabetes mellitus Morbid obesity, BMI 39 PLAN Continue IV diuresis. Follow renal function and electrolytes in the morning. Further recommendations will be made based upon clinical course. Nurse Practitioner note has been reviewed, I agree with a documented findings and plan of care. Patient was seen and examined. Objective - Vital Signs Vital signs: Vital Signs Temp 99.4 F 07/30/20 08:30 Pulse 95 07/30/20 08:30 Resp 26 H 07/30/20 08:30 BP 130/77 07/30/20 08:30 Pulse Ox 91 L 07/30/20 08:49 Intake & Output 07/29/20 07/30/20 07/30/20 18:59 06:59 18:59 Intake Total 200 236 Output Total 750 1200 Balance -750 -1000 236 Weight 96.615 kg Intake: Intake, IV Titration 80 Amount Sodium Chloride 0.9% 1, 80 000 ml @ 20 mls/hr IV . Q24H [facility] Rx#:[id number] Oral 120 236 Output: Urine 600 1200 Stool 150 Other: Voiding Method Indwelling Catheter Indwelling Catheter # Voids 0 # Bowel Movements 0 - Labs CBC & Chem 7: 07/28/20 22:41 07/30/20 07:49 Labs: Abnormal Lab Results - Last 24 Hours (Table) 07/29/20 07/30/20 07/30/20 Range/Units 20:28 05:57 07:49 Chloride 109 H (98-107) mmol/L BUN 34 H (7-17) mg/dL Creatinine 1.24 H (0.52-1.04) mg/dL Glucose 139 H (74-99) mg/dL POC Glucose (mg/dL) 152 H 143 H (75-99) mg/dL Calcium 8.1 L (8.4-10.2) mg/dL 07/30/20 Range/Units 12:09 Chloride (98-107) mmol/L BUN (7-17) mg/dL Creatinine (0.52-1.04) mg/dL Glucose (74-99) mg/dL POC Glucose (mg/dL) 170 H (75-99) mg/dL Calcium (8.4-10.2) mg/dL
--- NOTE | 2020-07-30 13:01 | P.CNPUL ---
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 She was brought in by EMS after having complaints of increasing shortness of breath. She apparently tested positive for CoVID 19 at the group home. Chest x-ray reveals evidence of pulmonary edema atelectasis left lower lobe. Echocardiogram revealed preserved left ventricular systolic function with ejection fraction 55-60%. Moderate to severe pulmonary hypertension. White count 5.0. Hemoglobin 8.2. D-dimer 1.98. Sodium 144. Potassium 4.4. Creatinine 1.24. Glucose 139. ProBNP 10,000. She is seen today in consultation on the selective care unit. She is somewhat slow to respond. She is maintaining O2 saturations in the 90s on 12 L high flow nasal cannula. She's been initiated on Decadron. Currently afebrile. Review of Systems ROS unobtainable: due to mental status Past Medical History Past Medical History: Atrial Fibrillation, Diabetes Mellitus, Deep Vein Thrombosis (DVT), Fibromyalgia, GERD/Reflux, GI Bleed, Hyperlipidemia, Hype rtension, Pneumonia, Renal Disease, Skin Disorder, Sleep Apnea/CPAP/BIPAP, Supraventricular Tachycardia (SVT), Vascular Disorder Additional Past Medical History / Comment(s): NIDDM type II, neuropathy bilateral hands/R foot, CKD stage III, UTIs, past urinary obstruction/reflux with IDC, sepsis/septic shock/septicemia, kidney stone which pt passed, chronic blood loss anemia, gastric ulcer, hemorrhoids, lower GI bleed, bowel obstruction from infection per pt-has colostomy, chronic low back pain, migraines, muscle weakness, 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, ALEX without device, past decubitus coccyx-pt states finally healed, cellulitis R lower leg, dermatitis, e czema, sinus problems, lower jaw deteriorating Last Myocardial Infarction Date:: unknown History of Any Multi-Drug Resistant Organisms: MRSA, VRE Date of last positivie culture/infection: 08/27/19 MRSA; 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 Source:: URINE-MRSA; Urine-VRE & ESBL Past Surgical History: Adenoidectomy, Bariatric Surgery, Bowel Resection, Cholecystectomy, Joint Replacement, Orthopedic Surgery, Tonsillectomy, Tubal Ligation Additional Past Surgical History / Comment(s): L total knee with infection/hardware removed and cemented then later replaced and then L BKA, total R hip replacement, ORIF L hip, bilateral heel spur removal, bilateral carpal tunnel releases, I&D R turner, leann filter, colostomy, gastric bypass/loreta en Y, panniculectomy, EGD, colonoscopies, hemorrhoidectomy, D&Cs, hysteroscopies, teeth extractions, infusaport placed/removed. Past Anesthesia/Blood Transfusion Reactions: Blood Transfusion Reaction Additional Past Anesthesia/Blood Transfusion Reaction / Comment(s): Pt denies reaction. Past Psychological History: Anxiety, Depression Smoking Status: Former smoker - Past Family History Father Family Medical History: Myocardial Infarction (MA) Additional Family Medical History / Comment(s): AT AGE 46-MA Mother Family Medical History: Diabetes Mellitus Additional Family Medical History / Comment(s): AT AGE 66 FROM COMPLICATIONS FROM DM. MOTHER HAD MIs WITH HER FIRST MA WHILE IN HER 50S. Sister(s) Family Medical History: Diabetes Mellitus Brother(s) Family Medical History: Diabetes Mellitus Daughter(s) Family Medical History: Cancer Son(s) Family Medical History: No Reported History Medications and Allergies Home Medications Medication Instructions Recorded Confirmed Type Ferrous Sulfate [Iron (65 MG 325 mg PO DAILY 04/11/19 07/28/20 History Elemental)] Loratadine [Claritin] 10 mg PO DAILY@0600 04/25/19 07/28/20 History Acetaminophen Tab [Tylenol] 650 mg PO TID@0500,1300,2100 07/18/19 07/28/20 History Pantoprazole Sodium [Protonix] 40 mg PO DAILY@0600 07/18/19 07/28/20 History Potassium Chloride ER [K-Dur 10] 10 meq PO DAILY@0600 07/18/19 07/28/20 History methocarbamoL [Robaxin] 500 mg PO TID@0700,1300,1900 07/18/19 07/28/20 History Sodium Bicarbonate Tab 650 mg PO BID tab 08/28/19 07/28/20 Rx Acetaminophen [Tylenol 8 Hour] 650 mg PO Q6H PRN 03/27/20 07/28/20 History DULoxetine HCL [Cymbalta] 60 mg PO DAILY@69903/27/20 07/28/20 History Furosemide [Lasix] 40 mg PO DAILY 03/27/20 07/28/20 History Polyethylene Glycol 3350 [Miralax] 17 gm PO DAILY@59903/27/20 07/28/20 History Sennosides-Docusate Sodium 2 tab PO DAILY@199903/27/20 07/28/20 History [Senokot-S] amLODIPine [Norvasc] 10 mg PO DAILY@59903/27/20 07/28/20 History sitaGLIPtin [Januvia] 100 mg PO DAILY@69903/27/20 07/28/20 History Hydrocodone/Acetaminophen [[place] 1 tab PO Q6H PRN #8 tab 04/02/20 07/28/20 Rx 10-325] Morphine Sulfate ER [Ms Contin] 15 mg PO BID@699,1999 #6 tab 04/02/20 07/28/20 Rx Atorvastatin [Lipitor] 40 mg PO HS 07/28/20 07/28/20 History Dexamethasone [Decadron] 6 mg PO DAILY 07/28/20 07/28/20 History Guaifenesin/Dextromethorphan 10 ml PO Q4H PRN 07/28/20 07/28/20 History [guaiFENesin DM] Metoprolol Tartrate [Lopressor] 25 mg PO Q12H 07/28/20 07/28/20 History Zinc Gluconate [Zinc] 50 mg PO DAILY 07/28/20 07/28/20 History lisinopriL [Zestril] 10 mg PO HS 07/28/20 07/28/20 History metFORMIN HCL [Glucophage] 1,000 mg PO BID 07/28/20 07/28/20 History Allergies Allergy/AdvReac Type Severity Reaction Status Date / Time adhesive tape Allergy Severe Rash/Hives Verified 07/28/20 23:03 cephalexin monohydrate Allergy Severe Rash/Hives Verified 07/28/20 23:03 [From Keflex] influenza virus vaccine, Allergy Severe Anaphylaxis Verified 07/28/20 23:03 specific [influenza virus vacc,specific] latex Allergy Severe Rash/Hives Verified 07/28/20 23:03 peanut Allergy Severe Anaphylaxis Verified 07/28/20 23:03 Penicillins Allergy Severe Swelling Verified 07/28/20 23:03 tetanus toxoid, adsorbed Allergy Intermediate Rash/Hives Verified 07/28/20 23:03 baclofen Allergy Unknown Verified 07/28/20 23:03 Influenza Virus Vaccines Allergy Anaphylaxis Verified 07/28/20 23:03 Physical Exam Vitals: Vital Signs Temp Pulse Pulse Resp BP BP Pulse Ox 07/30/20 12:00 98.6 F 85 22 135/61 93 L 07/30/20 08:49 91 L 07/30/20 08:30 99.4 F 95 26 H 130/77 88 L 07/30/20 04:00 99.2 F 86 19 109/53 86 L 07/30/20 02:00 86 19 07/30/20 00:00 98.2 F 82 18 101/46 88 L 07/29/20 20:00 98.6 F 90 18 104/58 96 07/29/20 18:37 79 20 94/57 94 L 07/29/20 17:00 95 07/29/20 14:32 100.4 F H 93 18 114/61 93 L Intake and Output 07/29/20 07/30/20 07/30/20 22:59 06:59 14:59 Intake Total 200 236 Output Total 1200 Balance -1000 236 Intake: Intake, IV Titration 80 Amount Sodium Chloride 0.9% 1, 80 000 ml @ 20 mls/hr IV . Q24H [facility] Rx#:[id number] Oral 120 236 Output: Urine 1200 Other: Voiding Method Indwelling Catheter Indwelling Catheter Indwelling Catheter # Voids 0 # Bowel Movements 0 Weight 96.615 kg GENERAL EXAM: Alert, confused, obese 69-year-old female patient, on 12 L high flow nasal cannula, comfortable in no apparent distress. HEAD: Normocephalic. EYES: Normal reaction of pupils, equal size. NOSE: Clear with pink turbinates. THROAT: No erythema or exudates. NECK: No masses, no JVD. CHEST: No chest wall deformity. LUNGS: Equal air entry with coarse crackles bilateral posterior bases. CVS: S1 and S2 normal with no audible murmur, irregular rhythm. ABDOMEN: No hepatosplenomegaly, normal bowel sounds, no guarding or rigidity. SPINE: No scoliosis or deformity SKIN: No rashes CENTRAL NERVOUS SYSTEM: No focal deficits, tone is normal in all 4 extremities. EXTREMITIES: Left [id number] amputation. There is no peripheral edema. No clubbing, no cyanosis. Peripheral pulses are intact. Results - Laboratory Findings CBC and BMP: 07/28/20 22:41 07/30/20 07:49 PT/INR, D-dimer PT 10.6 sec (9.0-12.0) 07/28/20 22:41 INR 1.0 (<1.2) 07/28/20 22:41 D-Dimer 1.98 mg/L FEU (<0.60) H 07/28/20 22:41 Abnormal lab findings: Abnormal Labs 07/28/20 07/28/20 07/28/20 22:41 22:41 22:41 RBC 3.01 L Hgb 8.2 L Hct 26.3 L RDW 17.7 H D-Dimer 1.98 H Chloride 112 H BUN 36 H Creatinine 1.51 H Glucose 125 H POC Glucose (mg/dL) Calcium 8.0 L AST 39 H Alkaline Phosphatase 164 H Albumin 2.7 L 07/29/20 07/30/20 07/30/20 20:28 05:57 07:49 RBC Hgb Hct RDW D-Dimer Chloride 109 H BUN 34 H Creatinine 1.24 H Glucose 139 H POC Glucose (mg/dL) 152 H 143 H Calcium 8.1 L AST Alkaline Phosphatase Albumin 07/30/20 12:09 RBC Hgb Hct RDW D-Dimer Chloride BUN Creatinine Glucose POC Glucose (mg/dL) 170 H Calcium AST Alkaline Phosphatase Albumin - Diagnostic Findings Chest x-ray: image reviewed Assessment and Plan Assessment: 1 Acute hypoxemic respiratory failure secondary to CoVID 19 pneumonia 2 Acute exacerbation of diastolic congestive heart failure 3 Atrial fibrillation, anticoagulated with Eliquis 4 Moderate severe pulmonary hypertension 5 History of bowel obstruction status post colostomy 6 History of wound infection status post left [id number] amputation 7 Diabetes mellitus 8 Diabetic neuropathy 9 Chronic kidney disease stage III 10 Morbid obesity. 11 Obstructive sleep apnea not utilizing CPAP 12 Hypertension 13 Hyperlipidemia 14 Fibromyalgia 15 residential resident 16 Poor overall functional performance based on the above-mentioned multiple comorbidities Plan: The patient was seen and evaluated by Dr. Gardner Chest x-ray and labs reviewed Continue diuretics Continue dexamethasone Anticoagulated with Eliquis Continue Pepcid, Zantac, vitamin supplements Obtain CODE STATUS Titrate down the FiO2 as tolerated We will continue to follow and make further recommendations based on her clinical status I, the cosigning physician, performed a history & physical examination of the patient. Lungs sounds with crackles in the bilateral posterior bases. Maintaining good O2 saturations in the 90s on 12 L high flow nasal cannula. I discussed the assessment and plan of care with my nurse practitioner, Muriel Edmonds. I attest to the above consultation as dictated by her. Time with Patient: Greater than 30
--- NOTE | 2020-07-30 13:25 | P.PN ---
Subjective This is admitted for congestive heart failure chronic systolic dysfunction with acute exacerbation and patient was also diagnosed with covid 19. Still short of breath but the does appear to have improvement in her respiratory status and creatinine did improve and close to her baseline of around 1.2. Patient is saturating 92 was seen on 12 L of oxygen Constitutional: Denied any fatigue denied any fever. Cardio vascular: denied any chest pain, palpitations Gastrointestinal denied any nausea vomiting Pulmonary: Still has some shortness of breath Neurologic denied any new focal deficits All inpatient medications were reviewed and appropriate changes in these medications as dictated in the interval history and assessment and plan. Objective - Vital Signs Vital signs: Vital Signs Temp 98.6 F 07/30/20 12:00 Pulse 85 07/30/20 12:00 Resp 22 07/30/20 12:00 BP 135/61 07/30/20 12:00 Pulse Ox 93 L 07/30/20 12:00 Intake & Output 07/29/20 07/30/20 07/30/20 18:59 06:59 18:59 Intake Total 200 236 Output Total 750 1200 Balance -750 -1000 236 Weight 96.615 kg Intake: Intake, IV Titration 80 Amount Sodium Chloride 0.9% 1, 80 000 ml @ 20 mls/hr IV . Q24H [facility] Rx#:[id number] Oral 120 236 Output: Urine 600 1200 Stool 150 Other: Voiding Method Indwelling Catheter Indwelling Catheter # Voids 0 # Bowel Movements 0 - Exam PHYSICAL EXAMINATION: GENERAL: The patient is alert and oriented x3, not in any acute distress. Well developed, well nourished. HEENT: Pupils are round and equally reacting to light. EOMI. No scleral icterus. No conjunctival pallor. Normocephalic, atraumatic. No pharyngeal erythema. No thyromegaly. CARDIOVASCULAR: S1 and S2 present. No murmurs, rubs, or gallops. PULMONARY: Bibasilar crackles were appreciated ABDOMEN: Soft, nontender, nondistended, normoactive bowel sounds. No palpable organomegaly. MUSCULOSKELETAL: No joint swelling or deformity. EXTREMITIES: No cyanosis, clubbing, or pedal edema. NEUROLOGICAL: Gross neurological examination did not reveal any focal deficits. SKIN: No rashes. - Labs CBC & Chem 7: 07/28/20 22:41 07/30/20 07:49 Labs: Abnormal Lab Results - Last 24 Hours (Table) 07/29/20 07/30/20 07/30/20 Range/Units 20:28 05:57 07:49 Chloride 109 H (98-107) mmol/L BUN 34 H (7-17) mg/dL Creatinine 1.24 H (0.52-1.04) mg/dL Glucose 139 H (74-99) mg/dL POC Glucose (mg/dL) 152 H 143 H (75-99) mg/dL Calcium 8.1 L (8.4-10.2) mg/dL 07/30/20 Range/Units 12:09 Chloride (98-107) mmol/L BUN (7-17) mg/dL Creatinine (0.52-1.04) mg/dL Glucose (74-99) mg/dL POC Glucose (mg/dL) 170 H (75-99) mg/dL Calcium (8.4-10.2) mg/dL Assessment and Plan Plan: -Acute hypoxic respiratory failure: Secondary to most probably congestive heart failure chronic diastolic dysfunction with acute exacerbation along with Covid 19 pneumonia. Patient will be continued on diuretics and patient is presently on 4 L of oxygen -Covid 19 pneumonia: Patient will be continued on Decadron - paroxysmal A. 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
[2020-07-30 17:26] LABS: Glucose,Whole Blood 204 mg/dL (75-99)
[2020-07-30 20:11] LABS: Glucose,Whole Blood 194 mg/dL (75-99)
[2020-07-30 20:21] LABS: Appearance,Urine Cloudy (Clear); Bacteria,Urine Many /hpf; Bilirubin,Urine Negative (Negative); Blood,Urine Small (Negative); Color,Urine Yellow; Glucose,Urine (UA) Negative (Negative); Hyaline Casts,Urine 4 /lpf (0-2); Ketones,Urine Trace (Negative); Leukocyte Esterase,Urine Large (Negative); Mucus,Urine Rare /hpf; Nitrite,Urine Positive (Negative); Protein,Urine Trace (Negative); RBC,Urine 18 /hpf (0-5); Squamous Epithelial Cell,Urine 1 /hpf (0-4); Urobilinogen,Urine <2.0 mg/dL (<2.0); WBC,Urine 83 /hpf (0-5)
[2020-07-30] MEDS: SENNOSIDES-DOCUSATE SODIUM 1 EACH TAB PO SCH (21:03)
[2020-07-30] MEDS: ATORVASTATIN 40 MG TAB PO SCH (21:03)
[2020-07-30] MEDS: INSULIN ASPART (NovoLOG) 100 UNIT/ML VIAL SQ SCH (21:04)
[2020-07-31 06:08] LABS: Glucose,Whole Blood 196 mg/dL (75-99)
[2020-07-31] MEDS: LINAGLIPTIN 5 MG TABLET PO SCH (06:46)
[2020-07-31] MEDS: SODIUM CHLORIDE 0.9% 1,000 ML IV SCH (06:46)
[2020-07-31] MEDS: DULoxetine HCL 60 MG CAPSULE.DR PO SCH (06:46)
[2020-07-31] MEDS: INSULIN ASPART (NovoLOG) 100 UNIT/ML VIAL SQ SCH ×4 (06:46→20:02)
[2020-07-31] MEDS: SODIUM BICARBONATE TAB 650 MG TAB PO SCH ×2 (09:16→20:03)
[2020-07-31] MEDS: APIXABAN 5 MG TAB PO SCH ×2 (09:16→20:03)
[2020-07-31] MEDS: FAMOTIDINE 20 MG TAB PO SCH (09:16)
[2020-07-31] MEDS: METOPROLOL TARTRATE 25 MG TAB PO SCH ×2 (09:16→20:03)
[2020-07-31] MEDS: ZINC SULFATE 220 MG CAP PO SCH (09:16)
[2020-07-31] MEDS: lisinopriL 5 MG TAB PO SCH (09:17)
[2020-07-31] MEDS: HYDROcodone/APAP 10-325MG 1 EACH TAB PO PRN ×3 (09:17→23:47)
[2020-07-31] MEDS: dexAMETHasone 2 MG TAB PO SCH (09:18)
[2020-07-31] MEDS: FUROSEMIDE 10 MG/ML 4 ML VIAL IV SCH ×3 (09:18→22:06)
--- NOTE | 2020-07-31 11:15 | P.PN ---
Subjective This is admitted for congestive heart failure chronic systolic dysfunction with acute exacerbation and patient was also diagnosed with covid 19. Still short of breath but the does appear to have improvement in her respiratory status and creatinine did improve and close to her baseline of around 1.2. Patient is saturating 92 was seen on 12 L of oxygen 07/31/2020 Patient is presently on 10 L of oxygen although patient declining all the care patient doesn't want to be at oxygen patient has a legal guardian we're awaiting the legal guardian's decision regarding her overall goals of care. Constitutional: Denied any fatigue denied any fever. Cardio vascular: denied any chest pain, palpitations Gastrointestinal denied any nausea vomiting Pulmonary: Still has some shortness of breath Neurologic denied any new focal deficits All inpatient medications were reviewed and appropriate changes in these medications as dictated in the interval history and assessment and plan. Objective - Vital Signs Vital signs: Vital Signs Temp 98.5 F 07/31/20 04:00 Pulse 93 07/31/20 04:00 Resp 20 07/31/20 04:00 BP 127/70 07/31/20 04:00 Pulse Ox 90 L 07/31/20 04:00 Intake & Output 07/30/20 07/31/20 07/31/20 18:59 06:59 18:59 Intake Total 236 100 Output Total 750 300 Balance -514 -200 Weight 96.615 kg 88 kg Intake: Oral 236 100 Output: Urine 750 300 Other: Voiding Method Indwelling Catheter Indwelling Catheter # Voids 0 # Bowel Movements 0 0 - Exam PHYSICAL EXAMINATION: GENERAL: The patient is alert and oriented x2-3, not in any acute distress. Well developed, well nourished. HEENT: Pupils are round and equally reacting to light. EOMI. No scleral icterus. No conjunctival pallor. Normocephalic, atraumatic. No pharyngeal erythema. No thyromegaly. CARDIOVASCULAR: S1 and S2 present. No murmurs, rubs, or gallops. PULMONARY: Bibasilar crackles were appreciated ABDOMEN: Soft, nontender, nondistended, normoactive bowel sounds. No palpable organomegaly. MUSCULOSKELETAL: No joint swelling or deformity. EXTREMITIES: No cyanosis, clubbing, or pedal edema. NEUROLOGICAL: Gross neurological examination did not reveal any focal deficits. SKIN: No rashes. - Labs CBC & Chem 7: 07/28/20 22:41 07/30/20 07:49 Labs: Abnormal Lab Results - Last 24 Hours (Table) 07/30/20 07/30/20 07/30/20 Range/Units 12:09 17:06 18:30 POC Glucose (mg/dL) 170 H 204 H (75-99) mg/dL Urine Appearance Cloudy H (Clear) Urine Protein Trace H (Negative) Urine Ketones Trace H (Negative) Urine Blood Small H (Negative) Urine Nitrite Positive H (Negative) Ur Leukocyte Esterase Large H (Negative) Urine RBC 18 H (0-5) /hpf Urine WBC 83 H (0-5) /hpf Urine WBC Clumps Few H (None) /hpf Urine Bacteria Many H (None) /hpf Hyaline Casts 4 H (0-2) /lpf Urine Mucus Rare H (None) /hpf 07/30/20 07/31/20 Range/Units 20:09 06:07 POC Glucose (mg/dL) 194 H 196 H (75-99) mg/dL Urine Appearance (Clear) Urine Protein (Negative) Urine Ketones (Negative) Urine Blood (Negative) Urine Nitrite (Negative) Ur Leukocyte Esterase (Negative) Urine RBC (0-5) /hpf Urine WBC (0-5) /hpf Urine WBC Clumps (None) /hpf Urine Bacteria (None) /hpf Hyaline Casts (0-2) /lpf Urine Mucus (None) /hpf Microbiology - Last 24 Hours (Table) 07/30/20 18:30 Urine Culture - Preliminary Urine,Clean Catch Assessment and Plan Plan: -Acute hypoxic respiratory failure: Secondary to most probably congestive heart failure chronic diastolic dysfunction with acute exacerbation along with Covid 19 pneumonia. Patient will be continued on diuretics and patient is presently on 4 L of oxygen Episode of nonsustained VT -Covid 19 pneumonia: Patient will be continued on Decadron - paroxysmal A. 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
[2020-07-31 11:42] LABS: Calcium 8.6 mg/dL (8.4-10.2)
[2020-07-31 11:49] LABS: Potassium 4.7 mmol/L (3.5-5.1)
[2020-07-31] MEDS ORDERED: LEVOFLOXACIN 500 MG TAB PO SCH (12:00)
[2020-07-31 12:10] LABS: Glucose,Whole Blood 198 mg/dL (75-99)
[2020-07-31] MEDS: methocarbamoL 500 MG TAB PO SCH ×3 (12:52→20:03)
--- NOTE | 2020-07-31 13:28 | P.PN ---
Subjective HISTORY OF PRESENTING ILLNESS This is a pleasant 69-year-old female past medical history significant for diabetes mellitus, hypertension, dyslipidemia, chronic kidney disease, obstructive sleep apnea, diastolic heart failure and left [id number] amputation secondary to infection. She denies prior history of coronary artery disease and does not follow in the office with a metal tester. She is seen and examined sitting up in bed in no acute distress. Her eyes are closed and she appears mildly pale. She is refusing to put her oxygen on oral low pulse oximeter on her finger. When she finally agreed her pulse ox was 48% on room air. Early this morning her blood pressure was 127/70 with a heart rate of 93 and she was maintaining a low-normal oxygen saturation on high flow oxygen. Urine output for the previous 24 hours is 1950 mL. Laboratory data currently pending. 13-beat run of non-sustained VT on telemetry surrounding time of hypoxia. PHYSICAL EXAMINATION CONSTITUTIONAL: No apparent distress. HEENT: Head is normocephalic. Pupils are equal, round. Sclerae anicteric. Mucous membranes of the mouth are moist. No JVD. No carotid bruit. CHEST EXAMINATION: Scattered rhonchi, no wheezes or rales. No chest wall tender ness is noted on palpation or with deep breathing. Diminished bilaterally. HEART EXAMINATION: Irregular rate and rhythm. S1, S2 heard. Systolic ejection murmur at the apex, no gallops or rub. EXTREMITIES: Left above the knee amputation, no swelling on the right. ASSESSMENT New onset paroxysmal atrial fibrillation COVID 19 Hypoxia Non-sustained VT Acute on chronic diastolic heart failure Chronic kidney disease Hypertension Dyslipidemia Diabetes mellitus Morbid obesity, BMI 39 PLAN Continue to diurese. Follow renal function and electrolytes daily. Nurse Practitioner note has been reviewed, I agree with a documented findings and plan of care. Patient was seen and examined. Objective - Vital Signs Vital signs: Vital Signs Temp 98.5 F 07/31/20 04:00 Pulse 93 07/31/20 04:00 Resp 20 07/31/20 04:00 BP 127/70 07/31/20 04:00 Pulse Ox 90 L 07/31/20 04:00 Intake & Output 07/30/20 07/31/20 07/31/20 18:59 06:59 18:59 Intake Total 236 100 Output Total 750 300 Balance -514 -200 Weight 96.615 kg 88 kg Intake: Oral 236 100 Output: Urine 750 300 Other: Voiding Method Indwelling Catheter Indwelling Catheter # Voids 0 # Bowel Movements 0 0 - Labs CBC & Chem 7: 07/28/20 22:41 07/31/20 09:12 Labs: Abnormal Lab Results - Last 24 Hours (Table) 07/30/20 07/30/20 07/30/20 Range/Units 12:09 17:06 18:30 POC Glucose (mg/dL) 170 H 204 H (75-99) mg/dL Urine Appearance Cloudy H (Clear) Urine Protein Trace H (Negative) Urine Ketones Trace H (Negative) Urine Blood Small H (Negative) Urine Nitrite Positive H (Negative) Ur Leukocyte Esterase Large H (Negative) Urine RBC 18 H (0-5) /hpf Urine WBC 83 H (0-5) /hpf Urine WBC Clumps Few H (None) /hpf Urine Bacteria Many H (None) /hpf Hyaline Casts 4 H (0-2) /lpf Urine Mucus Rare H (None) /hpf 07/30/20 07/31/20 Range/Units 20:09 06:07 POC Glucose (mg/dL) 194 H 196 H (75-99) mg/dL Urine Appearance (Clear) Urine Protein (Negative) Urine Ketones (Negative) Urine Blood (Negative) Urine Nitrite (Negative) Ur Leukocyte Esterase (Negative) Urine RBC (0-5) /hpf Urine WBC (0-5) /hpf Urine WBC Clumps (None) /hpf Urine Bacteria (None) /hpf Hyaline Casts (0-2) /lpf Urine Mucus (None) /hpf Microbiology - Last 24 Hours (Table) 07/30/20 18:30 Urine Culture - Preliminary Urine,Clean Catch
--- NOTE | 2020-07-31 14:15 | P.PN ---
Subjective Progress Note Date: 07/31/20 Principal diagnosis: CoVID 19 pneumonia This is a 69-year-old female patient who resides in extended care facility, she has a history of atrial fibrillation anticoagulated with Eliquis, diabetes mellitus, DVT, hypertension, hyperlipidemia, renal disease, diabetic neuropathy, bowel obstruction status post colostomy placement, left below the knee amputation due to infection, obstructive sleep apnea not on CPAP, history of GI bleed. She was brought in by EMS after having complaints of increasing shortness of breath. She apparently tested positive for CoVID 19 at the [facility]. Chest x-ray reveals evidence of pulmonary edema atelectasis left lower lobe. Echocardiogram revealed preserved left ventricular systolic function with ejection fraction 55-60%. Moderate to severe pulmonary hypertension. White count 5.0. Hemoglobin 8.2. D-dimer 1.98. Sodium 144. Potassium 4.4. Creatinine 1.24. Glucose 139. ProBNP 10,000. She is seen today in consultation on the selective care unit. She is somewhat slow to respond. She is maintaining O2 saturations in the 90s on 12 L high flow nasal cannula. She's been initiated on Decadron. Currently afebrile. The patient is seen today 07/31/2020 in follow-up on the selective care unit. She is currently awake and alert in no acute distress. She is maintaining O2 saturation in the 90s on 12 L high flow nasal cannula. The patient keeps pulling off her mask and wants checked on room air she was down to 48% O2 satur ations. She is currently afebrile. Urine culture pending. Sodium 148. Potassium 4.7. Creatinine 1.30. She remains on dexamethasone, anticoagulated with Eliquis. Pepcid and vitamin supplements. Initiated on IV diuretics 40 mg every 12 hours. Objective - Vital Signs Vital signs: Vital Signs Temp 98.5 F 07/31/20 04:00 Pulse 102 H 07/31/20 08:00 Resp 20 07/31/20 08:00 BP 150/82 07/31/20 08:00 Pulse Ox 48 L 07/31/20 08:00 Intake & Output 07/30/20 07/31/20 07/31/20 18:59 06:59 18:59 Intake Total 236 100 Output Total 750 300 150 Balance -514 -200 -150 Weight 96.615 kg 88 kg Intake: Oral 236 100 Output: Urine 750 300 Stool 150 Other: Voiding Method Indwelling Catheter Indwelling Catheter Indwelling Catheter # Voids 0 # Bowel Movements 0 0 - Exam GENERAL EXAM: Alert, confused 69-year-old female patient, non-12 L high flow nasal cannula comfortable in no apparent distress. HEAD: Normocephalic. EYES: Normal reaction of pupils, equal size. NOSE: Clear with pink turbinates. THROAT: No erythema or exudates. NECK: No masses, no JVD. CHEST: No chest wall deformity. LUNGS: Equal air entry with basilar crackles CVS: S1 and S2 normal with no audible murmur, regular rhythm. ABDOMEN: No hepatosplenomegaly, normal bowel sounds, no guarding or rigidity. SPINE: No scoliosis or deformity SKIN: No rashes CENTRAL NERVOUS SYSTEM: No focal deficits, tone is normal in all 4 extremities. EXTREMITIES: There is no peripheral edema. No clubbing, no cyanosis. Peripheral pulses are intact. - Labs CBC & Chem 7: 07/28/20 22:41 07/31/20 09:12 Labs: Abnormal Lab Results - Last 24 Hours (Table) 07/30/20 07/30/20 07/30/20 Range/Units 17:06 18:30 20:09 Sodium (137-145) mmol/L Chloride (98-107) mmol/L Carbon Dioxide (22-30) mmol/L BUN (7-17) mg/dL Creatinine (0.52-1.04) mg/dL Glucose (74-99) mg/dL POC Glucose (mg/dL) 204 H 194 H (75-99) mg/dL Urine Appearance Cloudy H (Clear) Urine Protein Trace H (Negative) Urine Ketones Trace H (Negative) Urine Blood Small H (Negative) Urine Nitrite Positive H (Negative) Ur Leukocyte Esterase Large H (Negative) Urine RBC 18 H (0-5) /hpf Urine WBC 83 H (0-5) /hpf Urine WBC Clumps Few H (None) /hpf Urine Bacteria Many H (None) /hpf Hyaline Casts 4 H (0-2) /lpf Urine Mucus Rare H (None) /hpf 07/31/20 07/31/20 07/31/20 Range/Units 06:07 09:12 12:07 Sodium 148 H (137-145) mmol/L Chloride 114 H (98-107) mmol/L Carbon Dioxide 21 L (22-30) mmol/L BUN 41 H (7-17) mg/dL Creatinine 1.30 H (0.52-1.04) mg/dL Glucose 176 H (74-99) mg/dL POC Glucose (mg/dL) 196 H 198 H (75-99) mg/dL Urine Appearance (Clear) Urine Protein (Negative) Urine Ketones (Negative) Urine Blood (Negative) Urine Nitrite (Negative) Ur Leukocyte Esterase (Negative) Urine RBC (0-5) /hpf Urine WBC (0-5) /hpf Urine WBC Clumps (None) /hpf Urine Bacteria (None) /hpf Hyaline Casts (0-2) /lpf Urine Mucus (None) /hpf Microbiology - Last 24 Hours (Table) 07/30/20 18:30 Urine Culture - Preliminary Urine,Clean Catch Assessment and Plan Assessment: 1 Acute hypoxemic respiratory failure secondary to CoVID 19 pneumonia 2 Acute exacerbation of diastolic congestive heart failure 3 Atrial fibrillation, anticoagulated with Eliquis 4 Moderate severe pulmonary hypertension 5 History of bowel obstruction status post colostomy 6 History of wound infection status post left jeiav-ygp-oyol amputation 7 Diabetes mellitus 8 Diabetic neuropathy 9 Chronic kidney disease stage III 10 Morbid obesity. 11 Obstructive sleep apnea not utilizing CPAP 12 Hypertension 13 Hyperlipidemia 14 Fibromyalgia 15 [facility] resident 16 Poor overall functional performance based on the above-mentioned multiple comorbidities Plan: The patient was seen and evaluated by Dr. Gardner Continue diuretics Continue dexamethasone Anticoagulated with Eliquis Continue Pepcid, Zinc, vitamin supplements Prognosis remains guarded Titrate down the FiO2 as tolerated We will continue to follow and make further recommendations based on her clinical status I, the cosigning physician, performed a history & physical examination of the patient. Lungs sounds with crackles in the bilateral posterior bases. Maintaining good O2 saturations in the 90s on 12 L high flow nasal cannula. I discussed the assessment and plan of care with my nurse practitioner, Muriel Edmonds. I attest to the above note as dictated by her.
[2020-07-31 16:54] LABS: Glucose,Whole Blood 178 mg/dL (75-99)
[2020-07-31] MEDS: SENNOSIDES-DOCUSATE SODIUM 1 EACH TAB PO SCH (20:03)
[2020-07-31] MEDS: ATORVASTATIN 40 MG TAB PO SCH (20:03)
[2020-07-31 20:07] LABS: Glucose,Whole Blood 202 mg/dL (75-99)
[2020-07-31 22:47] LABS: Hemoglobin A1C 6.4 % (4.0-6.0)
[2020-08-01] MEDS: HYDROcodone/APAP 10-325MG 1 EACH TAB PO PRN ×4 (06:18→23:17)
[2020-08-01] MEDS: INSULIN ASPART (NovoLOG) 100 UNIT/ML VIAL SQ SCH ×4 (06:18→20:41)
[2020-08-01] MEDS: LINAGLIPTIN 5 MG TABLET PO SCH (06:18)
[2020-08-01] MEDS: DULoxetine HCL 60 MG CAPSULE.DR PO SCH (06:18)
[2020-08-01 06:20] LABS: Glucose,Whole Blood 195 mg/dL (75-99)
[2020-08-01 09:30] LABS: Calcium 8.5 mg/dL (8.4-10.2); Potassium 3.4 mmol/L (3.5-5.1)
[2020-08-01] MEDS: ZINC SULFATE 220 MG CAP PO SCH (09:36)
[2020-08-01] MEDS: METOPROLOL TARTRATE 25 MG TAB PO SCH ×2 (09:36→20:41)
[2020-08-01] MEDS: FAMOTIDINE 20 MG TAB PO SCH (09:36)
[2020-08-01] MEDS: CHOLECALCIFEROL 1,000 UNIT TAB PO SCH (09:36)
[2020-08-01] MEDS: LEVOFLOXACIN 250 MG TAB PO SCH (09:36)
[2020-08-01] MEDS: methocarbamoL 500 MG TAB PO SCH ×3 (09:37→20:41)
[2020-08-01] MEDS: lisinopriL 5 MG TAB PO SCH (09:37)
[2020-08-01] MEDS: SODIUM BICARBONATE TAB 650 MG TAB PO SCH ×2 (09:37→20:41)
[2020-08-01] MEDS: APIXABAN 5 MG TAB PO SCH ×2 (09:37→20:41)
[2020-08-01] MEDS: dexAMETHasone 2 MG TAB PO SCH (09:37)
[2020-08-01] MEDS: ASCORBIC ACID 500 MG TAB PO SCH (09:37)
[2020-08-01] MEDS: FUROSEMIDE 10 MG/ML 4 ML VIAL IV SCH ×2 (09:38→20:41)
[2020-08-01] MEDS: SODIUM CHLORIDE 0.9% 1,000 ML IV SCH (09:38)
[2020-08-01 11:49] LABS: Glucose,Whole Blood 204 mg/dL (75-99)
--- NOTE | 2020-08-01 12:01 | P.PN ---
Subjective Progress Note Date: 08/01/20 Principal diagnosis: CoVID 19 pneumonia This is a 69-year-old female patient who resides in extended care facility, she has a history of atrial fibrillation anticoagulated with Eliquis, diabetes mellitus, DVT, hypertension, hyperlipidemia, renal disease, diabetic neuropathy, bowel obstruction status post colostomy placement, left below the knee amputation due to infection, obstructive sleep apnea not on CPAP, history of GI bleed. She was brought in by EMS after having complaints of increasing shortness of breath. She apparently tested positive for CoVID 19 at the longterm. Chest x-ray reveals evidence of pulmonary edema atelectasis left lower lobe. Echocardiogram revealed preserved left ventricular systolic function with ejection fraction 55-60%. Moderate to severe pulmonary hypertension. White count 5.0. Hemoglobin 8.2. D-dimer 1.98. Sodium 144. Potassium 4.4. Creatinine 1.24. Glucose 139. ProBNP 10,000. She is seen today in consultation on the selective care unit. She is somewhat slow to respond. She is maintaining O2 saturations in the 90s on 12 L high flow nasal cannula. She's been initiated on Decadron. Currently afebrile. The patient is seen today 07/31/2020 in follow-up on the selective care unit. She is currently awake and alert in no acute distress. She is maintaining O2 saturation in the 90s on 12 L high flow nasal cannula. The patient keeps pulling off her mask and wants checked on room air she was down to 48% O2 satur ations. She is currently afebrile. Urine culture pending. Sodium 148. Potassium 4.7. Creatinine 1.30. She remains on dexamethasone, anticoagulated with Eliquis. Pepcid and vitamin supplements. Initiated on IV diuretics 40 mg every 12 hours. The patient is seen today 08/01/2000 in follow-up on the selective care unit. Currently resting fairly comfortably in bed. Still requiring 12 L high flow nasal cannula to maintain O2 saturation 90s. This temperature 99.1. Slightly tachycardic. Urine culture positive for gram-negative bacilli. Sodium 146. Potassium 3.4. Creatinine 1.28. Receiving Lasix 40 mg IV every 12 hours. Antibiotics in the form of Levaquin. Remains on dexamethasone, vitamin supplement, Pepcid. Objective - Vital Signs Vital signs: Vital Signs Temp 99.1 F 08/01/20 08:20 Pulse 107 H 08/01/20 08:20 Resp 19 08/01/20 08:20 BP 136/67 08/01/20 08:20 Pulse Ox 92 L 08/01/20 08:20 Intake & Output 07/31/20 08/01/20 08/01/20 18:59 06:59 18:59 Intake Total 236 240 Output Total 300 950 Balance -64 -710 Weight 89 kg Intake: Oral 236 240 Output: Urine 800 Stool 300 150 Other: Voiding Method Indwelling Catheter Indwelling Catheter Indwelling Catheter # Bowel Movements 0 0 - Exam GENERAL EXAM: Alert, confused 69-year-old female patient, on 12 L high flow nasal cannula comfortable in no apparent distress. HEAD: Normocephalic. EYES: Normal reaction of pupils, equal size. NOSE: Clear with pink turbinates. THROAT: No erythema or exudates. NECK: No masses, no JVD. CHEST: No chest wall deformity. LUNGS: Equal air entry with basilar crackles CVS: S1 and S2 normal with no audible murmur, regular rhythm. ABDOMEN: No hepatosplenomegaly, normal bowel sounds, no guarding or rigidity. SPINE: No scoliosis or deformity SKIN: No rashes CENTRAL NERVOUS SYSTEM: No focal deficits, tone is normal in all 4 extremities. EXTREMITIES: There is no peripheral edema. No clubbing, no cyanosis. Periph eral pulses are intact. - Labs CBC & Chem 7: 07/28/20 22:41 08/01/20 08:17 Labs: Abnormal Lab Results - Last 24 Hours (Table) 07/30/20 07/31/20 07/31/20 Range/Units 07:49 12:07 16:48 Sodium (137-145) mmol/L Potassium (3.5-5.1) mmol/L Chloride (98-107) mmol/L BUN (7-17) mg/dL Creatinine (0.52-1.04) mg/dL Glucose (74-99) mg/dL POC Glucose (mg/dL) 198 H 178 H (75-99) mg/dL Hemoglobin A1c 6.4 H (4.0-6.0) % 07/31/20 08/01/20 08/01/20 Range/Units 19:57 06:14 08:17 Sodium 146 H (137-145) mmol/L Potassium 3.4 L (3.5-5.1) mmol/L Chloride 108 H (98-107) mmol/L BUN 46 H (7-17) mg/dL Creatinine 1.28 H (0.52-1.04) mg/dL Glucose 194 H (74-99) mg/dL POC Glucose (mg/dL) 202 H 195 H (75-99) mg/dL Hemoglobin A1c (4.0-6.0) % 08/01/20 Range/Units 11:43 Sodium (137-145) mmol/L Potassium (3.5-5.1) mmol/L Chloride (98-107) mmol/L BUN (7-17) mg/dL Creatinine (0.52-1.04) mg/dL Glucose (74-99) mg/dL POC Glucose (mg/dL) 204 H (75-99) mg/dL Hemoglobin A1c (4.0-6.0) % Microbiology - Last 24 Hours (Table) 07/30/20 18:30 Urine Culture - Preliminary Urine,Clean Catch Gram Neg Bacilli Assessment and Plan Assessment: 1 Acute hypoxemic respiratory failure secondary to CoVID 19 pneumonia here currently on 12 L high flow nasal cannula 2 Acute exacerbation of diastolic congestive heart failure 3 Atrial fibrillation, anticoagulated with Eliquis 4 Moderate severe pulmonary hypertension 5 History of bowel obstruction status post colostomy 6 History of wound infection status post left [id number] amputation 7 Diabetes mellitus 8 Diabetic neuropathy 9 Chronic kidney disease stage III 10 Morbid obesity. 11 Obstructive sleep apnea not utilizing CPAP 12 Hypertension 13 Hyperlipidemia 14 Fibromyalgia 15 longterm resident 16 Poor overall functional performance based on the above-mentioned multiple comorbidities Plan: The patient was seen and evaluated by Dr. Gardner Continue dexamethasone Anticoagulated with Eliquis Continue Pepcid, Zinc, vitamin supplements Prognosis remains guarded Titrate down the FiO2 as tolerated Follow-up chest x-ray in a.m. Prognosis is guarded We will continue to follow and make further recommendations based on her clinical status I, the cosigning physician, performed a history & physical examination of the p atient. Lungs sounds with crackles in the bilateral posterior bases. Maintaining good O2 saturations in the 90s on 12 L high flow nasal cannula. I discussed the assessment and plan of care with my nurse practitioner, Muriel Edmonds. I attest to the above note as dictated by her.
--- NOTE | 2020-08-01 12:07 | P.PN ---
Subjective HISTORY OF PRESENTING ILLNESS This is a pleasant 69-year-old female past medical history significant for diabetes mellitus, hypertension, dyslipidemia, chronic kidney disease, obstructive sleep apnea, diastolic heart failure and left elowa-[id number]-[id number] amputation secondary to infection. She denies prior history of coronary artery disease and does not follow in the office with a assembler movement. She is seen and examined sitting up in bed. Overall she appears comfortable and in no acute distress. She continues to require high flow oxygen via nasal cannula. She does verbalize that her breathing seems to be improving daily. Blood pressure 136/67 heart rate 107 afebrile. Laboratory data reviewed, sodium 146, potassium 3.4 and creatinine 1.28. She continues to maintain a negative fluid balance underweight is gone down 7 kg since admission. She continues to be in atrial fibrillation with mostly controlled ventricular rate. PHYSICAL EXAMINATION CONSTITUTIONAL: No apparent distress. HEENT: Head is normocephalic. Pupils are equal, round. Sclerae anicteric. Mucous membranes of the mouth are moist. No JVD. No carotid bruit. CHEST EXAMINATION: Scattered rhonchi, coarse rales, no wheezes. No chest wall tenderness is noted on palpation or with deep breathing. Diminished bilaterally. HEART EXAMINATION: Irregular rate and rhythm. S1, S2 heard. Systolic ejection murmur at the apex, no gallops or rub. EXTREMITIES: Left above the knee amputation, no swelling on the right. ASSESSMENT New onset paroxysmal atrial fibrillation COVID 19 Hypoxia Non-sustained VT Acute on chronic diastolic heart failure Chronic kidney disease Hypertension Dyslipidemia Diabetes mellitus Morbid obesity, BMI 39 PLAN Continue to diurese. Follow renal function and electrolytes daily. Repeat chest x-ray. Nurse Practitioner note has been reviewed, I agree with a documented findings and plan of care. Patient was seen and examined. Objective - Vital Signs Vital signs: Vital Signs Temp 99.1 F 08/01/20 08:20 Pulse 107 H 08/01/20 08:20 Resp 19 08/01/20 08:20 BP 136/67 08/01/20 08:20 Pulse Ox 92 L 08/01/20 08:20 Intake & Output 07/31/20 08/01/20 08/01/20 18:59 06:59 18:59 Intake Total 236 240 Output Total 300 950 Balance -64 -710 Weight 89 kg Intake: Oral 236 240 Output: Urine 800 Stool 300 150 Other: Voiding Method Indwelling Catheter Indwelling Catheter Indwelling Catheter # Bowel Movements 0 0 - Labs CBC & Chem 7: 07/28/20 22:41 08/01/20 08:17 Labs: Abnormal Lab Results - Last 24 Hours (Table) 07/30/20 07/31/20 07/31/20 Range/Units 07:49 12:07 16:48 Sodium (137-145) mmol/L Potassium (3.5-5.1) mmol/L Chloride (98-107) mmol/L BUN (7-17) mg/dL Creatinine (0.52-1.04) mg/dL Glucose (74-99) mg/dL POC Glucose (mg/dL) 198 H 178 H (75-99) mg/dL Hemoglobin A1c 6.4 H (4.0-6.0) % 07/31/20 08/01/20 08/01/20 Range/Units 19:57 06:14 08:17 Sodium 146 H (137-145) mmol/L Potassium 3.4 L (3.5-5.1) mmol/L Chloride 108 H (98-107) mmol/L BUN 46 H (7-17) mg/dL Creatinine 1.28 H (0.52-1.04) mg/dL Glucose 194 H (74-99) mg/dL POC Glucose (mg/dL) 202 H 195 H (75-99) mg/dL Hemoglobin A1c (4.0-6.0) % 08/01/20 Range/Units 11:43 Sodium (137-145) mmol/L Potassium (3.5-5.1) mmol/L Chloride (98-107) mmol/L BUN (7-17) mg/dL Creatinine (0.52-1.04) mg/dL Glucose (74-99) mg/dL POC Glucose (mg/dL) 204 H (75-99) mg/dL Hemoglobin A1c (4.0-6.0) % Microbiology - Last 24 Hours (Table) 07/30/20 18:30 Urine Culture - Preliminary Urine,Clean Catch Gram Neg Bacilli
--- NOTE | 2020-08-01 14:41 | XR ---
EXAMINATION TYPE: XR chest 1V portable DATE OF EXAM: 08/01/2020 COMPARISON: 07/28/2020 HISTORY: Shortness of breath TECHNIQUE: Single frontal view of the chest is obtained. FINDINGS: A bilateral infiltrate greater on the left with diffuse interstitial pattern. Heart size s table. Diffuse osteopenia and arthropathy of the shoulders. Atherosclerotic change aorta. Suggestion of surgical clips in the right upper quadrant. IMPRESSION: 1. Diffuse pleural-parenchymal changes are stable correlate for interstitial pneumonia with more cons olidative process in the left lower lobe.
[2020-08-01] MEDS ORDERED: Potassium Replacement Protocol 1 EACH MISC MISCELLANE PRN ×2 (15:40→16:06)
[2020-08-01] MEDS: POTASSIUM CHLORIDE ER 20 MEQ TAB.ER PO SCH ×2 (16:19→18:00)
--- NOTE | 2020-08-01 16:41 | P.PN ---
Subjective Progress Note Date: 08/01/20 Principal diagnosis: New onset paroxysmal atrial fibrillation COVID 19 viral pneumonia Acute hypoxic respiratory failure Non-sustained VT Acute on chronic diastolic heart failure 69-year-old female patient admitted for congestive heart failure chronic systolic dysfunction with acute exacerbation and patient was also diagnosed with covid 19. Still short of breath but the does appear to have improvement in her respiratory status and creatinine did improve and close to her baseline of around 1.2. Patient is saturating 92 was seen on 12 L of oxygen 07/31/2020 Patient is presently on 10 L of oxygen although patient declining all the care patient doesn't want to be at oxygen patient has a legal guardian we're awaiting the legal guardian's decision regarding her overall goals of care. 08/01/2020 Patient is seen and evaluated in follow-up on the selective care unit. Currently resting fairly comfortably in bed. Still requiring 12 L high flow nasal cannula to maintain O2 saturation 90s. This temperature 99.1. Slightly tachycardic. Urine culture positive for gram-negative bacilli. Sodium 146. Potassium 3.4. Creatinine 1.28. Receiving Lasix 40 mg IV every 12 hours. Antibiotics in the form of Levaquin. Remains on dexamethasone, vitamin supplement, Pepcid. Patient remains anticoagulated with [place]; her prognosis remains guarded; pulmonary is following and recommending to continue to titrate down FiO2 as tolerated; plan is to repeat a follow-up chest x-ray in a.m. Patient remains in atrial fibrillation but remains rate controlled; patient remains on diuretic therapy and has had a negative fluid balance with 7 KG weight loss since admission; cardiology is following and recommending to continue with diuresis and monitor renal function and electrolytes closely As indicated above await legal guardian's decision regarding goals of care Objective - Vital Signs Vital signs: Vital Signs Temp 99.1 F 08/01/20 08:20 Pulse 107 H 08/01/20 08:20 Resp 19 08/01/20 08:20 BP 136/67 08/01/20 08:20 Pulse Ox 92 L 08/01/20 08:20 Intake & Output 07/31/20 08/01/20 08/01/20 18:59 06:59 18:59 Intake Total 236 240 Output Total 300 950 Balance -64 -710 Weight 89 kg Intake: Oral 236 240 Output: Urine 800 Stool 300 150 Other: Voiding Method Indwelling Catheter Indwelling Catheter Indwelling Catheter # Bowel Movements 0 0 - Exam GENERAL: The patient is alert and oriented x2-3, not in any acute distress. Well developed, well nourished. HEENT: Pupils are round and equally reacting to light. EOMI. No scleral icterus. No conjunctival pallor. Normocephalic, atraumatic. No pharyngeal erythema. No thyromegaly. CARDIOVASCULAR: S1 and S2 present. No murmurs, rubs, or gallops. PULMONARY: Bibasilar crackles were appreciated ABDOMEN: Soft, nontender, nondistended, normoactive bowel sounds. No palpable organomegaly. MUSCULOSKELETAL: No joint swelling or deformity. EXTREMITIES: No cyanosis, clubbing, or pedal edema. NEUROLOGICAL: Gross neurological examination did not reveal any focal deficits. SKIN: No rashes. - Labs CBC & Chem 7: 07/28/20 22:41 08/01/20 08:17 Labs: Abnormal Lab Results - Last 24 Hours (Table) 07/30/20 07/31/20 07/31/20 Range/Units 07:49 16:48 19:57 Sodium (137-145) mmol/L Potassium (3.5-5.1) mmol/L Chloride (98-107) mmol/L BUN (7-17) mg/dL Creatinine (0.52-1.04) mg/dL Glucose (74-99) mg/dL POC Glucose (mg/dL) 178 H 202 H (75-99) mg/dL Hemoglobin A1c 6.4 H (4.0-6.0) % 08/01/20 08/01/20 08/01/20 Range/Units 06:14 08:17 11:43 Sodium 146 H (137-145) mmol/L Potassium 3.4 L (3.5-5.1) mmol/L Chloride 108 H (98-107) mmol/L BUN 46 H (7-17) mg/dL Creatinine 1.28 H (0.52-1.04) mg/dL Glucose 194 H (74-99) mg/dL POC Glucose (mg/dL) 195 H 204 H (75-99) mg/dL Hemoglobin A1c (4.0-6.0) % Microbiology - Last 24 Hours (Table) 07/30/20 18:30 Urine Culture - Preliminary Urine,Clean Catch Gram Neg Bacilli Assessment and Plan Assessment: -Acute hypoxic respiratory failure: Secondary to most probably congestive heart failure chronic diastolic dysfunction with acute exacerbation along with Covid 19 pneumonia. Patient will be continued on diuretics and patient is presently on 4 L of oxygen Episode of nonsustained VT -Covid 19 pneumonia: Patient will be continued on Decadron - paroxysmal A. 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
[2020-08-01 17:13] LABS: Glucose,Whole Blood 204 mg/dL (75-99)
[2020-08-01 20:26] LABS: Glucose,Whole Blood 194 mg/dL (75-99)
[2020-08-01] MEDS: ATORVASTATIN 40 MG TAB PO SCH (20:41)
[2020-08-01] MEDS: SENNOSIDES-DOCUSATE SODIUM 1 EACH TAB PO SCH (20:41)
[2020-08-01] MEDS ORDERED: POTASSIUM CHLORIDE ER 20 MEQ TAB.ER PO STA (22:42)
[2020-08-02] MEDS: DULoxetine HCL 60 MG CAPSULE.DR PO SCH (06:11)
[2020-08-02] MEDS: HYDROcodone/APAP 10-325MG 1 EACH TAB PO PRN ×4 (06:11→23:35)
[2020-08-02] MEDS: LINAGLIPTIN 5 MG TABLET PO SCH (06:11)
[2020-08-02 06:19] LABS: Glucose,Whole Blood 184 mg/dL (75-99)
[2020-08-02] MEDS: INSULIN ASPART (NovoLOG) 100 UNIT/ML VIAL SQ SCH ×4 (06:19→20:48)
--- NOTE | 2020-08-02 07:16 | XR ---
EXAMINATION TYPE: XR chest 1V DATE OF EXAM: 08/02/2020 COMPARISON: 08/01/1999 HISTORY: Shortness of breath TECHNIQUE: Single frontal view of the chest is obtained. FINDINGS: A bilateral infiltrate greater on the left with diffuse interstitial pattern. Heart size s table. Diffuse osteopenia and arthropathy of the shoulders. Atherosclerotic change aorta. Aorta mildl y prominent in size. Aneurysm not excluded. Suggestion of surgical clips in the right upper quadrant. IMPRESSION: Stable interstitial and basilar areas of consolidation and small effusion greater on the left unchanged from the prior exam.
[2020-08-02 08:22] LABS: Calcium 8.9 mg/dL (8.4-10.2)
[2020-08-02 08:40] LABS: Magnesium 1.8 mg/dL (1.6-2.3); Potassium 4.8 mmol/L (3.5-5.1)
[2020-08-02] MEDS: lisinopriL 5 MG TAB PO SCH (10:00)
[2020-08-02] MEDS: FUROSEMIDE 10 MG/ML 4 ML VIAL IV SCH ×2 (10:00→20:48)
[2020-08-02] MEDS: SULFAMETHOX-TMP 800-160MG 1 EACH TAB PO SCH ×2 (10:00→20:48)
[2020-08-02] MEDS: SODIUM BICARBONATE TAB 650 MG TAB PO SCH ×2 (10:00→20:47)
[2020-08-02] MEDS: CHOLECALCIFEROL 1,000 UNIT TAB PO SCH (10:00)
[2020-08-02] MEDS: methocarbamoL 500 MG TAB PO SCH ×3 (10:00→20:48)
[2020-08-02] MEDS: METOPROLOL TARTRATE 25 MG TAB PO SCH ×2 (10:00→20:48)
[2020-08-02] MEDS: FAMOTIDINE 20 MG TAB PO SCH (10:00)
[2020-08-02] MEDS: ASCORBIC ACID 500 MG TAB PO SCH (10:00)
[2020-08-02] MEDS: APIXABAN 5 MG TAB PO SCH ×2 (10:00→20:47)
[2020-08-02] MEDS: dexAMETHasone 2 MG TAB PO SCH (10:00)
[2020-08-02] MEDS: ZINC SULFATE 220 MG CAP PO SCH (10:00)
--- NOTE | 2020-08-02 11:00 | P.PN ---
Subjective Progress Note Date: 08/02/20 This a pleasant 69-year-old female patient with past medical history significant for diabetes, hypertension, dyslipidemia, chronic kidney disease, obstructive sleep apnea, diastolic heart failure and left zghwm-gjr-nzll amputation secondary to infection. She is overall not feeling much better to day. She continues to complain of shortness of breath with a cough and quite a bit of chest congestion. Oxygen saturation was low on room air this morning and patient was placed on a nonrebreather mask with transition to high flow cannula at 10 L. She continues to be in atrial fibrillation with a mostly controlled ventricular rate. Her weight is stable and she maintains a negative fluid balance. Blood pressure is stable at 116/57 this morning. Objective - Vital Signs Vital signs: Vital Signs Temp 98.1 F 08/02/20 08:00 Pulse 101 H 08/02/20 08:00 Resp 20 08/02/20 08:00 BP 116/57 08/02/20 08:00 Pulse Ox 83 L 08/02/20 08:00 Intake & Output 08/01/20 08/02/20 08/02/20 18:59 06:59 18:59 Intake Total 240 Output Total 800 600 Balance -800 -600 240 Intake: Oral 240 Output: Urine 800 600 Other: Voiding Method Indwelling Catheter Indwelling Catheter Indwelling Catheter # Voids 1 - Exam PHYSICAL EXAMINATION: HEENT: Head is atraumatic, normocephalic. Pupils equal, round. Neck is supple. There is no elevated jugular venous pressure. HEART EXAMINATION: Heart sounds irregularly irregular, S1 and S2 with a systolic murmur. CHEST EXAMINATION: Lungs reveal scattered rhonchi and coarse rales. ABDOMEN: Soft, nontender. Bowel sounds are heard. No organomegaly noted. EXTREMITIES: Left vuqfi-vah-mbog amputation noted with no edema noted to the right lower extremity. NEUROLOGIC patient is awake, alert and oriented x3. . - Labs CBC & Chem 7: 07/28/20 22:41 08/02/20 07:13 Labs: Abnormal Lab Results - Last 24 Hours (Table) 08/01/20 08/01/20 08/01/20 Range/Units 11:43 17:10 20:20 Chloride (98-107) mmol/L BUN (7-17) mg/dL Creatinine (0.52-1.04) mg/dL Glucose (74-99) mg/dL POC Glucose (mg/dL) 204 H 204 H 194 H (75-99) mg/dL 08/02/20 08/02/20 Range/Units 06:17 07:13 Chloride 109 H (98-107) mmol/L BUN 54 H (7-17) mg/dL Creatinine 1.22 H (0.52-1.04) mg/dL Glucose 190 H (74-99) mg/dL POC Glucose (mg/dL) 184 H (75-99) mg/dL Microbiology - Last 24 Hours (Table) 07/30/20 18:30 Urine Culture - Final Urine,Clean Catch Escherichia coli Assessment and Plan Assessment: New onset paroxysmal atrial fibrillation COVID 19 Hypoxia Non-sustained VT Acute on chronic diastolic heart failure Chronic kidney disease Hypertension Dyslipidemia Diabetes mellitus Morbid obesity, BMI 39 Plan: From cardiology 's perspective we will switch the patient to by mouth Lasix. Continue to follow renal function and electrolytes as well as daily weights and intake and output. We'll continue to follow the patient provided further recommendations accordingly. [facility] note has been reviewed, I agree with a documented findings and plan of care. Patient was seen and examined.
[2020-08-02 11:43] LABS: Glucose,Whole Blood 205 mg/dL (75-99)
[2020-08-02] MEDS: SODIUM CHLORIDE 0.9% 1,000 ML IV SCH (13:36)
[2020-08-02] MEDS: LEVOFLOXACIN 250 MG TAB PO SCH (13:36)
--- NOTE | 2020-08-02 15:02 | P.PN ---
Subjective Progress Note Date: 08/02/20 Principal diagnosis: Acute hypoxic respiratory failure secondary to covid 19 pneumonia. This is a 69-year-old female patient who resides in extended care facility, she has a history of atrial fibrillation anticoagulated with Eliquis, diabetes mellitus, DVT, hypertension, hyperlipidemia, renal disease, diabetic neuropathy, bowel obstruction status post colostomy placement, left below the knee amputation due to infection, obstructive sleep apnea not on CPAP, history of GI bleed. She was brought in by EMS after having complaints of increasing shortness of breath. She apparently tested positive for CoVID 19 at the long term. Chest x-ray reveals evidence of pulmonary edema atelectasis left lower lobe. Echocardiogram revealed preserved left ventricular systolic function with ejection fraction 55-60%. Moderate to severe pulmonary hypertension. White count 5.0. Hemoglobin 8.2. D-dimer 1.98. Sodium 144. Potassium 4.4. Creatinine 1.24. Glucose 139. ProBNP 10,000. She is seen today in consultation on the selective care unit. She is somewhat slow to respond. She is maintaining O2 saturations in the 90s on 12 L high flow nasal cannula. She's been initiated on Decadron. Currently afebrile. The patient is seen today 07/31/2020 in follow-up on the selective care unit. She is currently awake and alert in no acute distress. She is maintaining O2 saturation in the 90s on 12 L high flow nasal cannula. The patient keeps pulling off her mask and wants checked on room air she was down to 48% O2 saturations. She is currently afebrile. Urine culture pending. Sodium 148. Potassium 4.7. Creatinine 1.30. She remains on dexamethasone, anticoagulated with Eliquis. Pepcid and vitamin supplements. Initiated on IV diuretics 40 mg every 12 hours. The patient is seen today 08/01/2020 in follow-up on the selective care unit. Currently resting fairly comfortably in bed. Still requiring 12 L high flow nasal cannula to maintain O2 saturation 90s. This temperature 99.1. Slightly tachycardic. Urine culture positive for gram-negative bacilli. Sodium 146. Potassium 3.4. Creatinine 1.28. Receiving Lasix 40 mg IV every 12 hours. Antibiotics in the form of Levaquin. Remains on dexamethasone, vitamin supplement, Pepcid. Patient was reevaluated today on 08/02/2020, remains about the same. Patient is still requiring nonrebreather mask, high flow at 15 L/m, O2 saturation is 90%. She is in no distress, she is hemodynamically stable, and seems to be quite comfortable. Her initial presentation was mostly a presentation of acute Covid 19 pneumonia and hypoxic respiratory failure. He remains on the cocktail. Objective - Vital Signs Vital signs: Vital Signs Temp 98.1 F 08/02/20 08:00 Pulse 110 H 08/02/20 12:00 Resp 20 08/02/20 12:00 BP 109/58 08/02/20 12:00 Pulse Ox 90 L 08/02/20 12:00 Intake & Output 08/01/20 08/02/20 08/02/20 18:59 06:59 18:59 Intake Total 480 Output Total 800 600 500 Balance -800 -600 -20 Intake: Oral 480 Output: Urine 800 600 500 Other: Voiding Method Indwelling Catheter Indwelling Catheter Indwelling Catheter # Voids 1 - Exam GENERAL EXAM: Alert, confused 69-year-old female patient, on 15 L high flow and intermittently on nonrebreather mask. HEAD: Normocephalic. Atraumatic. ENT: PERRLA, EOMI, no icterus. CHEST: No chest wall deformity. LUNGS: Symmetrical expansion crackles at the bases. CVS: S1 and S2 normal with no audible murmur, regular rhythm. ABDOMEN: No hepatosplenomegaly, normal bowel sounds, no guarding or rigidity. SPINE: No scoliosis or deformity SKIN: No rashes CENTRAL NERVOUS SYSTEM: No focal deficits, EXTREMITIES: There is no peripheral edema. No clubbing, no cyanosis. Left above-knee amputation is noted. - Labs CBC & Chem 7: 07/28/20 22:41 08/02/20 07:13 Labs: Abnormal Lab Results - Last 24 Hours (Table) 08/01/20 08/01/20 08/02/20 Range/Units 17:10 20:20 06:17 Chloride (98-107) mmol/L BUN (7-17) mg/dL Creatinine (0.52-1.04) mg/dL Glucose (74-99) mg/dL POC Glucose (mg/dL) 204 H 194 H 184 H (75-99) mg/dL 01/09/21 01/09/21 Range/Units 07:13 11:41 Chloride 109 H (98-107) mmol/L BUN 54 H (7-17) mg/dL Creatinine 1.22 H (0.52-1.04) mg/dL Glucose 190 H (74-99) mg/dL POC Glucose (mg/dL) 205 H (75-99) mg/dL Microbiology - Last 24 Hours (Table) 07/30/20 18:30 Urine Culture - Final Urine,Clean Catch Escherichia coli Assessment and Plan Assessment: Impression: Acute hypoxic respiratory failure secondary to covid 19 pneumonia. Acute diastolic congestive heart failure. Chronic atrial fibrillation. Moderate severe pulmonary hypertension. History of left above-knee amputation. History of colostomy. Type 2 diabetes. Diabetic neuropathy. Chronic kidney disease stage III. Morbid obesity. Benign essential hypertension. Dyslipidemia. Fibromyalgia. Obstructive sleep apnea syndrome, not utilizing CPAP. correction resident. Recommendation: Continue present supportive care measures. Continue Covid 19 cocktail. Continue to titrate FiO2 as tolerated. Overall prognosis remains poor and guarded considering the multiplicity of her problems, We'll follow. Time with Patient: Less than 30
[2020-08-02 16:33] LABS: Glucose,Whole Blood 237 mg/dL (75-99)
[2020-08-02 20:36] LABS: Glucose,Whole Blood 243 mg/dL (75-99)
[2020-08-02] MEDS: SENNOSIDES-DOCUSATE SODIUM 1 EACH TAB PO SCH (20:47)
[2020-08-02] MEDS: ATORVASTATIN 40 MG TAB PO SCH (20:47)
[2020-08-03] MEDS: HYDROcodone/APAP 10-325MG 1 EACH TAB PO PRN ×3 (05:43→21:49)
[2020-08-03 06:21] LABS: Glucose,Whole Blood 226 mg/dL (75-99)
[2020-08-03] MEDS: INSULIN ASPART (NovoLOG) 100 UNIT/ML VIAL SQ SCH ×4 (06:37→21:46)
[2020-08-03] MEDS: SODIUM CHLORIDE 0.9% 1,000 ML IV SCH (06:37)
[2020-08-03] MEDS: DULoxetine HCL 60 MG CAPSULE.DR PO SCH (06:38)
[2020-08-03] MEDS: LINAGLIPTIN 5 MG TABLET PO SCH (06:38)
[2020-08-03] MEDS: APIXABAN 5 MG TAB PO SCH ×2 (09:39→21:46)
[2020-08-03] MEDS: FUROSEMIDE 40 MG TAB PO SCH ×2 (09:39→15:11)
[2020-08-03] MEDS: FAMOTIDINE 20 MG TAB PO SCH (09:39)
[2020-08-03] MEDS: METOPROLOL TARTRATE 25 MG TAB PO SCH ×2 (09:39→21:49)
[2020-08-03] MEDS: SODIUM BICARBONATE TAB 650 MG TAB PO SCH ×2 (09:39→21:47)
[2020-08-03] MEDS: ASCORBIC ACID 500 MG TAB PO SCH (09:39)
[2020-08-03] MEDS: dexAMETHasone 2 MG TAB PO SCH (09:39)
[2020-08-03] MEDS: ZINC SULFATE 220 MG CAP PO SCH (09:40)
[2020-08-03] MEDS: CHOLECALCIFEROL 1,000 UNIT TAB PO SCH (09:40)
[2020-08-03] MEDS: methocarbamoL 500 MG TAB PO SCH ×3 (09:40→21:47)
[2020-08-03] MEDS: SULFAMETHOX-TMP 800-160MG 1 EACH TAB PO SCH ×2 (09:40→21:47)
[2020-08-03] MEDS: lisinopriL 5 MG TAB PO SCH (09:40)
[2020-08-03 11:54] LABS: Glucose,Whole Blood 191 mg/dL (75-99)
[2020-08-03 12:01] LABS: Calcium 8.6 mg/dL (8.4-10.2); Potassium 4.4 mmol/L (3.5-5.1)
[2020-08-03] MEDS: LEVOFLOXACIN 250 MG TAB PO SCH (12:16)
--- NOTE | 2020-08-03 12:35 | P.PN ---
Subjective Progress Note Date: 08/03/20 This a pleasant 69-year-old female patient with past medical history significant for diabetes, hypertension, dyslipidemia, chronic kidney disease, obstructive sleep apnea, diastolic heart failure and left vddyn-bwy-[id number] amputation secondary to infection. She is overall not feeling much better to day. She continues to complain of shortness of breath with a cough and quite a bit of chest congestion. Oxygen saturation was low on room air this morning and patient was placed on a nonrebreather mask with transition to high flow cannula at 10 L. She continues to be in atrial fibrillation with a mostly controlled ventricular rate. Her weight is stable and she maintains a negative fluid balance. Blood pressure is stable at 116/57 this morning. 08/03/2020 Patient seen and examined this morning. Overall she's feeling quite a bit better compared to yesterday. She is breathing easier. She has less cough and congestion. She remains on nonrebreather with O2 sats in the low 90s. She is afebrile and blood pressure is controlled in the 115 to 130 range. She has been transitioned to by mouth Lasix. Objective - Vital Signs Vital signs: Vital Signs Temp 98.4 F 08/03/20 08:00 Pulse 106 H 08/03/20 08:00 Resp 22 08/03/20 08:00 BP 115/71 08/03/20 08:00 Pulse Ox 91 L 08/03/20 08:00 Intake & Output 08/02/20 08/03/20 08/03/20 18:59 06:59 18:59 Intake Total 1260 240 Output Total 750 450 Balance 510 -450 240 Weight 91.5 kg Intake: Oral 1260 240 Output: Urine 750 450 Other: Voiding Method Indwelling Catheter Indwelling Catheter Indwelling Catheter - Exam PHYSICAL EXAMINATION: HEENT: Head is atraumatic, normocephalic. Pupils equal, round. Neck is supple. There is no elevated jugular venous pressure. HEART EXAMINATION: Heart sounds irregularly irregular, S1 and S2 with a systolic murmur. CHEST EXAMINATION: Lungs reveal scattered rhonchi and coarse rales with improvement compared to yesterday. ABDOMEN: Soft, nontender. Bowel sounds are heard. No organomegaly noted. EXTREMITIES: Left olqja-zci-kjak amputation noted with no edema noted to the right lower extremity. NEUROLOGIC patient is awake, alert and oriented x3. . - Labs CBC & Chem 7: 01/04/21 22:41 08/03/20 06:10 Labs: Abnormal Lab Results - Last 24 Hours (Table) 08/02/20 08/02/20 08/03/20 Range/Units 16:30 20:31 06:10 Chloride 108 H (98-107) mmol/L BUN 64 H (7-17) mg/dL Creatinine 1.50 H (0.52-1.04) mg/dL Glucose 209 H (74-99) mg/dL POC Glucose (mg/dL) 237 H 243 H (75-99) mg/dL 08/03/20 08/03/20 Range/Units 06:19 11:52 Chloride (98-107) mmol/L BUN (7-17) mg/dL Creatinine (0.52-1.04) mg/dL Glucose (74-99) mg/dL POC Glucose (mg/dL) 226 H 191 H (75-99) mg/dL Assessment and Plan Assessment: New onset paroxysmal atrial fibrillation COVID 19 Hypoxia Non-sustained VT Acute on chronic diastolic heart failure Chronic kidney disease Hypertension Dyslipidemia Diabetes mellitus Morbid obesity, BMI 39 Plan: From cardiology 's perspective medications were reviewed and will continue the same. At this time will follow the patient on an as-needed basis. Please do not hesitate to contact us with questions. SKI GUIDE note has been reviewed, I agree with a documented findings and plan of care. Patient was seen and examined.
--- NOTE | 2020-08-03 15:32 | P.PN ---
Subjective Progress Note Date: 08/02/20 Principal diagnosis: New onset paroxysmal atrial fibrillation COVID 19 viral pneumonia Acute hypoxic respiratory failure Non-sustained VT Acute on chronic diastolic heart failure 69-year-old female patient admitted for congestive heart failure chronic systolic dysfunction with acute exacerbation and patient was also diagnosed with covid 19. Still short of breath but the does appear to have improvement in her respiratory status and creatinine did improve and close to her baseline of around 1.2. Patient is saturating 92 was seen on 12 L of oxygen 07/31/2020 Patient is presently on 10 L of oxygen although patient declining all the care patient doesn't want to be at oxygen patient has a legal guardian we're awaiting the legal guardian's decision regarding her overall goals of care. 08/01/2020 Patient is seen and evaluated in follow-up on the selective care unit. Currently resting fairly comfortably in bed. Still requiring 12 L high flow nasal cannula to maintain O2 saturation 90s. This temperature 99.1. Slightly tachycardic. Urine culture positive for gram-negative bacilli. Sodium 146. Potassium 3.4. Creatinine 1.28. Receiving Lasix 40 mg IV every 12 hours. Antibiotics in the form of Levaquin. Remains on dexamethasone, vitamin supplement, Pepcid. Patient remains anticoagulated with [place]; her prognosis remains guarded; pulmonary is following and recommending to continue to titrate down FiO2 as tolerated; plan is to repeat a follow-up chest x-ray in a.m. Patient remains in atrial fibrillation but remains rate controlled; patient remains on diuretic therapy and has had a negative fluid balance with 7 KG weight loss since admission; cardiology is following and recommending to continue with diuresis and monitor renal function and electrolytes closely As indicated above await legal guardian's decision regarding goals of care 08/02/2020 Patient is seen and evaluated in selective care unit; remains about the same. Patient is still requiring nonrebreather mask, high flow at 15 L/m, O2 saturation is 90%. She is in no distress, she is hemodynamically stable, and seems to be quite comfortable. Her initial presentation was mostly a presentation of acute Covid 19 pneumonia and hypoxic respiratory failure. She remains on the cocktail. Pulmonary service is following; continue with present supportive care measures and titrate FiO2 as able Patient's prognosis remains guarded Objective - Vital Signs Vital signs: Vital Signs Temp 98.1 F 08/02/20 08:00 Pulse 110 H 08/02/20 12:00 Resp 20 08/02/20 12:00 BP 109/58 08/02/20 12:00 Pulse Ox 90 L 08/02/20 12:00 Intake & Output 08/01/20 08/02/20 08/02/20 18:59 06:59 18:59 Intake Total 480 Output Total 800 600 500 Balance -800 -600 -20 Intake: Oral 480 Output: Urine 800 600 500 Other: Voiding Method Indwelling Catheter Indwelling Catheter Indwelling Catheter # Voids 1 - Exam GENERAL: The patient is alert and oriented x2-3, not in any acute distress. Well developed, well nourished. HEENT: Pupils are round and equally reacting to light. EOMI. No scleral icterus. No conjunctival pallor. Normocephalic, atraumatic. No pharyngeal erythema. No thyromegaly. CARDIOVASCULAR: S1 and S2 present. No murmurs, rubs, or gallops. PULMONARY: Bibasilar crackles were appreciated ABDOMEN: Soft, nontender, nondistended, normoactive bowel sounds. No palpable organomegaly. MUSCULOSKELETAL: No joint swelling or deformity. EXTREMITIES: No cyanosis, clubbing, or pedal edema. NEUROLOGICAL: Gross neurological examination did not reveal any focal deficits. SKIN: No rashes. - Labs CBC & Chem 7: 07/28/20 22:41 08/03/20 06:10 Labs: Abnormal Lab Results - Last 24 Hours (Table) 08/01/20 08/01/20 08/02/20 Range/Units 17:10 20:20 06:17 Chloride (98-107) mmol/L BUN (7-17) mg/dL Creatinine (0.52-1.04) mg/dL Glucose (74-99) mg/dL POC Glucose (mg/dL) 204 H 194 H 184 H (75-99) mg/dL 08/02/20 08/02/20 Range/Units 07:13 11:41 Chloride 109 H (98-107) mmol/L BUN 54 H (7-17) mg/dL Creatinine 1.22 H (0.52-1.04) mg/dL Glucose 190 H (74-99) mg/dL POC Glucose (mg/dL) 205 H (75-99) mg/dL Microbiology - Last 24 Hours (Table) 07/30/20 18:30 Urine Culture - Final Urine,Clean Catch Escherichia coli Assessment and Plan Assessment: -Acute hypoxic respiratory failure: Secondary to most probably congestive heart failure chronic diastolic dysfunction with acute exacerbation along with Covid 19 pneumonia. Patient will be continued on diuretics and patient is presently on 4 L of oxygen Episode of nonsustained VT -Covid 19 pneumonia: Patient will be continued on Decadron - paroxysmal A. 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
[2020-08-03 16:57] LABS: Glucose,Whole Blood 260 mg/dL (75-99)
[2020-08-03 20:29] LABS: Glucose,Whole Blood 228 mg/dL (75-99)
[2020-08-03] MEDS: ATORVASTATIN 40 MG TAB PO SCH (21:46)
[2020-08-03] MEDS: SENNOSIDES-DOCUSATE SODIUM 1 EACH TAB PO SCH (21:46)
[2020-08-04 05:55] LABS: Glucose,Whole Blood 236 mg/dL (75-99)
[2020-08-04] MEDS: HYDROcodone/APAP 10-325MG 1 EACH TAB PO PRN ×3 (06:15→20:36)
[2020-08-04] MEDS: INSULIN ASPART (NovoLOG) 100 UNIT/ML VIAL SQ SCH ×4 (06:16→20:38)
[2020-08-04] MEDS: LINAGLIPTIN 5 MG TABLET PO SCH (06:16)
[2020-08-04] MEDS: DULoxetine HCL 60 MG CAPSULE.DR PO SCH (06:16)
--- NOTE | 2020-08-04 07:58 | P.PN ---
Subjective Progress Note Date: 08/03/20 Principal diagnosis: New onset paroxysmal atrial fibrillation COVID 19 viral pneumonia Acute hypoxic respiratory failure Non-sustained VT Acute on chronic diastolic heart failure 69-year-old female patient admitted for congestive heart failure chronic systolic dysfunction with acute exacerbation and patient was also diagnosed with covid 19. Still short of breath but the does appear to have improvement in her respiratory status and creatinine did improve and close to her baseline of around 1.2. Patient is saturating 92 was seen on 12 L of oxygen 07/31/2020 Patient is presently on 10 L of oxygen although patient declining all the care patient doesn't want to be at oxygen patient has a legal guardian we're awaiting the legal guardian's decision regarding her overall goals of care. 08/01/2020 Patient is seen and evaluated in follow-up on the selective care unit. Currently resting fairly comfortably in bed. Still requiring 12 L high flow nasal cannula to maintain O2 saturation 90s. This temperature 99.1. Slightly tachycardic. Urine culture positive for gram-negative bacilli. Sodium 146. Potassium 3.4. Creatinine 1.28. Receiving Lasix 40 mg IV every 12 hours. Antibiotics in the form of Levaquin. Remains on dexamethasone, vitamin supplement, Pepcid. Patient remains anticoagulated with [place]; her prognosis remains guarded; pulmonary is following and recommending to continue to titrate down FiO2 as tolerated; plan is to repeat a follow-up chest x-ray in a.m. Patient remains in atrial fibrillation but remains rate controlled; patient remains on diuretic therapy and has had a negative fluid balance with 7 KG weight loss since admission; cardiology is following and recommending to continue with diuresis and monitor renal function and electrolytes closely As indicated above await legal guardian's decision regarding goals of care 08/02/2020 Patient is seen and evaluated in selective care unit; remains about the same. Patient is still requiring nonrebreather mask, high flow at 15 L/m, O2 saturation is 90%. She is in no distress, she is hemodynamically stable, and seems to be quite comfortable. Her initial presentation was mostly a presentation of acute Covid 19 pneumonia and hypoxic respiratory failure. She remains on the cocktail. Pulmonary service is following; continue with present supportive care measures and titrate FiO2 as able Patient's prognosis remains guarded 08/03/2020 Patient seen and examined this morning. Overall she's feeling quite a bit better compared to yesterday. She is breathing easier. She has less cough and congestion. She remains on nonrebreather with O2 sats in the low 90s. She is afebrile and blood pressure is controlled in the 115 to 130 range. She has been transitioned to by mouth Lasix. Objective - Vital Signs Vital signs: Vital Signs Temp 98.4 F 08/03/20 08:00 Pulse 104 H 08/03/20 12:00 Resp 20 08/03/20 12:00 BP 122/64 08/03/20 12:00 Pulse Ox 96 08/03/20 12:00 Intake & Output 08/02/20 08/03/20 08/03/20 18:59 06:59 18:59 Intake Total 1260 597 Output Total 750 450 100 Balance 510 -450 497 Weight 91.5 kg Intake: Oral 1260 597 Output: Urine 750 450 100 Other: Voiding Method Indwelling Catheter Indwelling Catheter Indwelling Catheter - Exam GENERAL: The patient is alert and oriented x2-3, not in any acute distress. Well developed, well nourished. HEENT: Pupils are round and equally reacting to light. EOMI. No scleral icterus. No conjunctival pallor. Normocephalic, atraumatic. No pharyngeal erythema. No thyromegaly. CARDIOVASCULAR: S1 and S2 present. No murmurs, rubs, or gallops. PULMONARY: Bibasilar crackles were appreciated ABDOMEN: Soft, nontender, nondistended, normoactive bowel sounds. No palpable organomegaly. MUSCULOSKELETAL: No joint swelling or deformity. EXTREMITIES: No cyanosis, clubbing, or pedal edema. NEUROLOGICAL: Gross neurological examination did not reveal any focal deficits. SKIN: No rashes. - Labs CBC & Chem 7: 07/28/20 22:41 08/03/20 06:10 Labs: Abnormal Lab Results - Last 24 Hours (Table) 08/02/20 08/02/20 08/03/20 Range/Units 16:30 20:31 06:10 Chloride 108 H (98-107) mmol/L BUN 64 H (7-17) mg/dL Creatinine 1.50 H (0.52-1.04) mg/dL Glucose 209 H (74-99) mg/dL POC Glucose (mg/dL) 237 H 243 H (75-99) mg/dL 08/03/20 08/03/20 Range/Units 06:19 11:52 Chloride (98-107) mmol/L BUN (7-17) mg/dL Creatinine (0.52-1.04) mg/dL Glucose (74-99) mg/dL POC Glucose (mg/dL) 226 H 191 H (75-99) mg/dL Assessment and Plan Assessment: -Acute hypoxic respiratory failure: Secondary to most probably congestive heart failure chronic diastolic dysfunction with acute exacerbation along with Covid 19 pneumonia. Patient will be continued on diuretics and patient is presently on 4 L of oxygen Episode of nonsustained VT -Covid 19 pneumonia: Patient will be continued on Decadron - paroxysmal A. 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
[2020-08-04] MEDS: SODIUM CHLORIDE 0.9% 1,000 ML IV SCH (09:08)
[2020-08-04] MEDS: SODIUM BICARBONATE TAB 650 MG TAB PO SCH ×2 (09:09→20:37)
[2020-08-04] MEDS: methocarbamoL 500 MG TAB PO SCH ×3 (09:09→20:38)
[2020-08-04] MEDS: ASCORBIC ACID 500 MG TAB PO SCH (09:09)
[2020-08-04] MEDS: FAMOTIDINE 20 MG TAB PO SCH (09:09)
[2020-08-04] MEDS: dexAMETHasone 2 MG TAB PO SCH (09:09)
[2020-08-04] MEDS: APIXABAN 5 MG TAB PO SCH ×2 (09:10→20:37)
[2020-08-04] MEDS: METOPROLOL TARTRATE 25 MG TAB PO SCH ×2 (09:10→20:37)
[2020-08-04] MEDS: SULFAMETHOX-TMP 800-160MG 1 EACH TAB PO SCH ×2 (09:10→20:38)
[2020-08-04] MEDS: FUROSEMIDE 40 MG TAB PO SCH ×2 (09:10→16:46)
[2020-08-04] MEDS: ZINC SULFATE 220 MG CAP PO SCH (09:10)
[2020-08-04] MEDS: CHOLECALCIFEROL 1,000 UNIT TAB PO SCH (09:10)
[2020-08-04] MEDS: lisinopriL 5 MG TAB PO SCH (09:10)
[2020-08-04 11:24] LABS: Glucose,Whole Blood 249 mg/dL (75-99)
[2020-08-04] MEDS: LEVOFLOXACIN 250 MG TAB PO SCH (12:31)
--- NOTE | 2020-08-04 14:54 | P.PN ---
Subjective Progress Note Date: 08/04/20 Principal diagnosis: Acute hypoxic respiratory failure related to COVID19 pneumonitis This is a 69-year-old female patient who resides in extended care facility, she has a history of atrial fibrillation anticoagulated with Eliquis, diabetes mellitus, DVT, hypertension, hyperlipidemia, renal disease, diabetic neuropathy, bowel obstruction status post colostomy placement, left below the knee amputation due to infection, obstructive sleep apnea not on CPAP, history of GI bleed. She was brought in by EMS after having complaints of increasing shortness of breath. She apparently tested positive for CoVID 19 at the senior care. Chest x-ray reveals evidence of pulmonary edema atelectasis left lower lobe. Echocardiogram revealed preserved left ventricular systolic function with ejection fraction 55-60%. Moderate to severe pulmonary hypertension. White count 5.0. Hemoglobin 8.2. D-dimer 1.98. Sodium 144. Potassium 4.4. Creatinine 1.24. Glucose 139. ProBNP 10,000. She is seen today in consultation on the selective care unit. She is somewhat slow to respond. She is maintaining O2 saturations in the 90s on 12 L high flow nasal cannula. She's been initiated on Decadron. Currently afebrile. The patient is seen today 07/31/2020 in follow-up on the selective care unit. She is currently awake and alert in no acute distress. She is maintaining O2 saturation in the 90s on 12 L high flow nasal cannula. The patient keeps pulling off her mask and wants checked on room air she was down to 48% O2 saturations. She is currently afebrile. Urine culture pending. Sodium 148. Potassium 4.7. Creatinine 1.30. She remains on dexamethasone, anticoagulated with Eliquis. Pepcid and vitamin supplements. Initiated on IV diuretics 40 mg every 12 hours. The patient is seen today 08/01/2020 in follow-up on the selective care unit. Currently resting fairly comfortably in bed. Still requiring 12 L high flow nasal cannula to maintain O2 saturation 90s. This temperature 99.1. Slightly tachycardic. Urine culture positive for gram-negative bacilli. Sodium 146. Potassium 3.4. Creatinine 1.28. Receiving Lasix 40 mg IV every 12 hours. Antibiotics in the form of Levaquin. Remains on dexamethasone, vitamin supplement, Pepcid. Patient was reevaluated today on 08/02/2020, remains about the same. Patient is still requiring nonrebreather mask, high flow at 15 L/m, O2 saturation is 90%. She is in no distress, she is hemodynamically stable, and seems to be quite comfortable. Her initial presentation was mostly a presentation of acute Covid 19 pneumonia and hypoxic respiratory failure. He remains on the cocktail. On 08/04/2020 patient seen in follow-up on selective care unit, she is awake and alert, in no acute distress, she is breathing comfortably, although still requiring high flow oxygen, currently on 15 L, her pulse ox is 93%, does get exertional dyspnea, patient will cough, no complete chest discomfort, her last chest x-ray was back in 08/12/2020 showing stable interstitial basilar areas of consolidation small effusion greater on the left. She is awake and alert, she is answering questions appropriately, maintenance on oral Decadron, oral Lasix, cough syrup, Eliquis for anticoagulation. She is on Levaquin for E. coli urinary tract infection Objective - Vital Signs Vital signs: Vital Signs Temp 98.9 F 08/04/20 07:55 Pulse 100 08/04/20 14:00 Resp 22 08/04/20 14:00 BP 116/72 08/04/20 11:00 Pulse Ox 93 L 08/04/20 12:30 Intake & Output 08/03/20 08/04/20 08/04/20 18:59 06:59 18:59 Intake Total 717 180 Output Total 400 690 30 Balance 317 -690 150 Weight 88 kg Intake: Oral 717 180 Output: Urine 400 360 Stool 330 30 Other: Voiding Method Indwelling Catheter Indwelling Catheter Indwelling Catheter - Exam GENERAL EXAM: Alert, very pleasant, morbidly obese 69-year-old white female on 15 L of oxygen pulse ox 93% comfortable in no apparent distress. HEAD: Normocephalic/atraumatic. EYES: Normal reaction of pupils, equal size. Conjunctiva pink, sclera white. NOSE: Clear with pink turbinates. THROAT: No erythema or exudates. NECK: No masses, no JVD, no thyroid enlargement, no adenopathy. CHEST: No chest wall deformity. Symmetrical expansion. LUNGS: Equal air entry with no crackles, wheeze, rhonchi or dullness. CVS: Regular rate and rhythm, normal S1 and S2, no gallops, no murmurs, no rubs ABDOMEN: Soft, nontender. No hepatosplenomegaly, normal bowel sounds, no guarding or rigidity. EXTREMITIES: No clubbing, no edema, no cyanosis, 2+ pulses and upper and lower extremities. MUSCULOSKELETAL: Muscle strength and tone normal. SPINE: No scoliosis or deformity SKIN: No rashes CENTRAL NERVOUS SYSTEM: Alert and oriented -3. No focal deficits, tone is normal in all 4 extremities. PSYCHIATRIC: Alert and oriented -3. Appropriate affect. Intact judgment and insight. On - Labs CBC & Chem 7: 07/28/20 22:41 08/03/20 06:10 Labs: Abnormal Lab Results - Last 24 Hours (Table) 08/03/20 08/03/20 08/04/20 Range/Units 16:49 20:27 05:54 POC Glucose (mg/dL) 260 H 228 H 236 H (75-99) mg/dL 08/04/20 Range/Units 11:23 POC Glucose (mg/dL) 249 H (75-99) mg/dL Assessment and Plan Plan: Assessment: #1. Acute hypoxic respiratory failure secondary to COVID 19 pneumonitis #2. Acute exacerbation of diastolic congestive heart failure #3. Acute urinary tract infection related to E. coli, currently on Levaquin #4. Chronic A. fib on Eliquis #5. Moderately severe pulmonary hypertension #6. History of left above-knee amputation #7. History of colostomy #8. Type 2 diabetes mellitus #9. Chronic kidney disease stage III #10. Morbid obesity #11. Benign essential hypertension #12. Dyslipidemia #13. Fibromyalgia #14. Obstructive sleep apnea not utilizing CPAP #15. Resident of long-term care nursing facility Plan: Continue with Decadron, continue oral oral anticoagulation continue vitamins, still requiring high flow oxygen, we will obtain follow-up chest x-ray in the morning, altered mentation, clinically patient seems to be comfortable, no worsening dyspnea, we'll continue following the patient, wean FiO2 to keep O2 sat at or above 90%, provide incentive spirometer. Continue oral Lasix. I performed a history & physical examination of the patient and discussed their management with my nurse practitioner, Jenny Ness. I reviewed the nurse practitioner's note and agree with the documented findings and plan of care. Lung sounds are positive for diminished breath sounds. The findings and the impression was discussed with the patient. I attest to the documentation by the nurse practitioner. Time with Patient: Less than 30
[2020-08-04 16:36] LABS: Glucose,Whole Blood 279 mg/dL (75-99)
--- NOTE | 2020-08-04 19:21 | P.PN ---
Subjective Progress Note Date: 08/04/20 Principal diagnosis: New onset paroxysmal atrial fibrillation COVID 19 viral pneumonia Acute hypoxic respiratory failure Non-sustained VT Acute on chronic diastolic heart failure 69-year-old female patient admitted for congestive heart failure chronic s ystolic dysfunction with acute exacerbation and patient was also diagnosed with covid 19. Still short of breath but the does appear to have improvement in her respiratory status and creatinine did improve and close to her baseline of around 1.2. Patient is saturating 92 was seen on 12 L of oxygen 07/31/2020 Patient is presently on 10 L of oxygen although patient declining all the care patient doesn't want to be at oxygen patient has a legal guardian we're awaiting the legal guardian's decision regarding her overall goals of care. 08/01/2020 Patient is seen and evaluated in follow-up on the selective care unit. Currently resting fairly comfortably in bed. Still requiring 12 L high flow nasal cannula to maintain O2 saturation 90s. This temperature 99.1. Slightly tachycardic. Urine culture positive for gram-negative bacilli. Sodium 146. Potassium 3.4. Creatinine 1.28. Receiving Lasix 40 mg IV every 12 hours. Antibiotics in the form of Levaquin. Remains on dexamethasone, vitamin supplement, Pepcid. Patient remains anticoagulated with [place]; her prognosis remains guarded; pulmonary is following and recommending to continue to titrate down FiO2 as tolerated; plan is to repeat a follow-up chest x-ray in a.m. Patient remains in atrial fibrillation but remains rate controlled; patient remains on diuretic therapy and has had a negative fluid balance with 7 KG weight loss since admission; cardiology is following and recommending to continue with diuresis and monitor renal function and electrolytes closely As indicated above await legal guardian's decision regarding goals of care 08/02/2020 Patient is seen and evaluated in selective care unit; remains about the same. Patient is still requiring nonrebreather mask, high flow at 15 L/m, O2 saturation is 90%. She is in no distress, she is hemodynamically stable, and seems to be quite comfortable. Her initial presentation was mostly a presentation of acute Covid 19 pneumonia and hypoxic respiratory failure. She remains on the cocktail. Pulmonary service is following; continue with present supportive care measures and titrate FiO2 as able Patient's prognosis remains guarded 08/03/2020 Patient seen and examined this morning. Overall she's feeling quite a bit better compared to yesterday. She is breathing easier. She has less cough and congestion. She remains on nonrebreather with O2 sats in the low 90s. She is afebrile and blood pressure is controlled in the 115 to 130 range. She has been transitioned to by mouth Lasix. 08/04/2020 Patient is currently resting in the bed comfortably. Awake alert and oriented 2-3. Patient is otherwise still requiring oxygen at 15 L via nasal cannula. No complaints of chest pain. Still having exertional dyspnea otherwise. Patient is being continued on Decadron and Eliquis for anticoagulation. Heart rate is controlled. Urine culture showed E. coli and is being continued on Levaquin currently. Pulmonary is on board. Current medications reviewed. Objective - Vital Signs Vital signs: Vital Signs Temp 97.8 F 08/04/20 16:44 Pulse 107 H 08/04/20 16:44 Resp 20 08/04/20 16:44 BP 120/69 08/04/20 16:44 Pulse Ox 91 L 08/04/20 16:44 Intake & Output 08/03/20 08/04/20 08/04/20 18:59 06:59 18:59 Intake Total 717 180 Output Total 400 690 280 Balance 317 -690 -100 Weight 88 kg Intake: Oral 717 180 Output: Urine 400 360 250 Stool 330 30 Other: Voiding Method Indwelling Catheter Indwelling Catheter Indwelling Catheter - Exam - Exam GENERAL: The patient is alert and oriented x2-3, not in any acute distress. Well developed, well nourished. HEENT: Pupils are round and equally reacting to light. EOMI. No scleral icterus. No conjunctival pallor. Normocephalic, atraumatic. No pharyngeal erythema. No thyromegaly. CARDIOVASCULAR: S1 and S2 present. No murmurs, rubs, or gallops. PULMONARY: Bibasilar crackles were appreciated ABDOMEN: Soft, nontender, nondistended, normoactive bowel sounds. No palpable organomegaly. MUSCULOSKELETAL: No joint swelling or deformity. EXTREMITIES: No cyanosis, clubbing, or pedal edema. NEUROLOGICAL: Gross neurological examination did not reveal any focal deficits. SKIN: No rashes. - Labs CBC & Chem 7: 07/28/20 22:41 08/03/20 06:10 Labs: Abnormal Lab Results - Last 24 Hours (Table) 08/03/20 08/04/20 08/04/20 Range/Units 20:27 05:54 11:23 POC Glucose (mg/dL) 228 H 236 H 249 H (75-99) mg/dL 08/04/20 Range/Units 16:34 POC Glucose (mg/dL) 279 H (75-99) mg/dL Assessment and Plan Assessment: -Acute hypoxic respiratory failure: Secondary to most probably congestive heart failure chronic diastolic dysfunction with acute exacerbation along with Covid 19 pneumonia. Patient will be continued on diuretics and patient is presently on 4 L of oxygen Episode of nonsustained VT -Covid 19 pneumonia: Patient will be continued on Decadron - paroxysmal A. 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 Time with Patient: Greater than 30
[2020-08-04 20:01] LABS: Glucose,Whole Blood 255 mg/dL (75-99)
[2020-08-04] MEDS: SENNOSIDES-DOCUSATE SODIUM 1 EACH TAB PO SCH (20:36)
[2020-08-04] MEDS: ATORVASTATIN 40 MG TAB PO SCH (20:37)
[2020-08-05] MEDS: SODIUM CHLORIDE 0.9% 1,000 ML IV SCH (03:02)
[2020-08-05 06:01] LABS: Glucose,Whole Blood 229 mg/dL (75-99)
[2020-08-05] MEDS: HYDROcodone/APAP 10-325MG 1 EACH TAB PO PRN ×2 (06:02→18:02)
[2020-08-05] MEDS: DULoxetine HCL 60 MG CAPSULE.DR PO SCH (06:03)
[2020-08-05] MEDS: LINAGLIPTIN 5 MG TABLET PO SCH (06:03)
[2020-08-05] MEDS: INSULIN ASPART (NovoLOG) 100 UNIT/ML VIAL SQ SCH ×4 (06:03→20:40)
[2020-08-05] MEDS: ASCORBIC ACID 500 MG TAB PO SCH (08:51)
[2020-08-05] MEDS: ZINC SULFATE 220 MG CAP PO SCH (08:51)
[2020-08-05] MEDS: SULFAMETHOX-TMP 800-160MG 1 EACH TAB PO SCH ×2 (08:52→20:40)
[2020-08-05] MEDS: FUROSEMIDE 40 MG TAB PO SCH ×2 (08:52→18:03)
[2020-08-05] MEDS: METOPROLOL TARTRATE 25 MG TAB PO SCH ×2 (08:52→20:39)
[2020-08-05] MEDS: FAMOTIDINE 20 MG TAB PO SCH (08:52)
[2020-08-05] MEDS: dexAMETHasone 2 MG TAB PO SCH (08:52)
[2020-08-05] MEDS: APIXABAN 5 MG TAB PO SCH ×2 (08:52→20:40)
[2020-08-05] MEDS: CHOLECALCIFEROL 1,000 UNIT TAB PO SCH (08:53)
[2020-08-05] MEDS: SODIUM BICARBONATE TAB 650 MG TAB PO SCH ×2 (08:53→20:40)
[2020-08-05] MEDS: lisinopriL 5 MG TAB PO SCH (08:53)
[2020-08-05] MEDS: methocarbamoL 500 MG TAB PO SCH ×3 (08:53→20:40)
[2020-08-05 10:10] LABS: C Reactive Protein 89.4 mg/L (<10.0)
--- NOTE | 2020-08-05 10:21 | XR ---
EXAMINATION TYPE: XR chest 1V portable DATE OF EXAM: 08/05/2020 COMPARISON: Chest x-ray 08/02/2020 HISTORY: Covid 19 pneumonia TECHNIQUE: Single frontal view of the chest is obtained. FINDINGS: Patchy densities present in the left lung greater than right. Patient is rotated. No evide nt pneumothorax or pleural effusion. Aorta is dense and possibly ectatic. Heart size is likely stable . IMPRESSION: Findings consistent with pneumonia.
[2020-08-05 11:47] LABS: Glucose,Whole Blood 147 mg/dL (75-99)
--- NOTE | 2020-08-05 12:36 | P.PN ---
Subjective Progress Note Date: 08/05/20 Principal diagnosis: Acute hypoxic respiratory failure related to COVID19 pneumonitis This is a 69-year-old female patient who resides in extended care facility, she has a history of atrial fibrillation anticoagulated with Eliquis, diabetes mellitus, DVT, hypertension, hyperlipidemia, renal disease, diabetic neuropathy, bowel obstruction status post colostomy placement, left below the knee amputation due to infection, obstructive sleep apnea not on CPAP, history of GI bleed. She was brought in by EMS after having complaints of increasing shortness of breath. She apparently tested positive for CoVID 19 at the halfway. Chest x-ray reveals evidence of pulmonary edema atelectasis left lower lobe. Echocardiogram revealed preserved left ventricular systolic function with ejection fraction 55-60%. Moderate to severe pulmonary hypertension. White count 5.0. Hemoglobin 8.2. D-dimer 1.98. Sodium 144. Potassium 4.4. Creatinine 1.24. Glucose 139. ProBNP 10,000. She is seen today in consultation on the selective care unit. She is somewhat slow to respond. She is maintaining O2 saturations in the 90s on 12 L high flow nasal cannula. She's been initiated on Decadron. Currently afebrile. The patient is seen today 07/31/2020 in follow-up on the selective care unit. She is currently awake and alert in no acute distress. She is maintaining O2 saturation in the 90s on 12 L high flow nasal cannula. The patient keeps pulling off her mask and wants checked on room air she was down to 48% O2 saturations. She is currently afebrile. Urine culture pending. Sodium 148. Potassium 4.7. Creatinine 1.30. She remains on dexamethasone, anticoagulated with Eliquis. Pepcid and vitamin supplements. Initiated on IV diuretics 40 mg every 12 hours. The patient is seen today 08/01/2020 in follow-up on the selective care unit. Currently resting fairly comfortably in bed. Still requiring 12 L high flow nasal cannula to maintain O2 saturation 90s. This temperature 99.1. Slightly tachycardic. Urine culture positive for gram-negative bacilli. Sodium 146. Potassium 3.4. Creatinine 1.28. Receiving Lasix 40 mg IV every 12 hours. Antibiotics in the form of Levaquin. Remains on dexamethasone, vitamin supplement, Pepcid. Patient was reevaluated today on 08/02/2020, remains about the same. Patient is still requiring nonrebreather mask, high flow at 15 L/m, O2 saturation is 90%. She is in no distress, she is hemodynamically stable, and seems to be quite comfortable. Her initial presentation was mostly a presentation of acute Covid 19 pneumonia and hypoxic respiratory failure. He remains on the cocktail. On 08/04/2020 patient seen in follow-up on selective care unit, she is awake and alert, in no acute distress, she is breathing comfortably, although still requiring high flow oxygen, currently on 15 L, her pulse ox is 93%, does get exertional dyspnea, patient will cough, no complete chest discomfort, her last chest x-ray was back in 08/12/2020 showing stable interstitial basilar areas of consolidation small effusion greater on the left. She is awake and alert, she is answering questions appropriately, maintenance on oral Decadron, oral Lasix, cough syrup, Eliquis for anticoagulation. She is on Levaquin for E. coli urinary tract infection On 01/03/2021 patient seen in follow-up on selective care unit, she appears to be drowsy, but she is arousable to verbal stimuli, she is given some simple answers, she states her breathing seems to be okay, no worsening, no significant cough or chest discomfort but she still requiring high flow oxygen, currently 100% nonrebreather, and a pulse ox between 91-96%, she states her biggest complaint is chronic pain, a lot of signs have been stable otherwise 7 hypoxemia, patient continues on oral anticoagulation a form of Eliquis, she remains on Decadron, she is on Levaquin for urinary tract infection, she's had no fevers, today's chest x-ray shows patchy densities in the left lung greater than the right, patient is rotated. His labs have been reviewed, d-dimer is 4.31, LDH is significantly elevated to 1911, and CRP is 89.4. Objective - Vital Signs Vital signs: Vital Signs Temp 98.0 F 08/05/20 02:46 Pulse 96 08/05/20 08:00 Resp 20 08/05/20 08:00 BP 153/75 08/05/20 08:00 Pulse Ox 96 08/05/20 10:18 Intake & Output 08/04/20 08/05/20 08/05/20 18:59 06:59 18:59 Intake Total 180 Output Total 280 220 Balance -100 -220 Weight 88.5 kg Intake: Oral 180 Output: Urine 250 200 Stool 30 20 Other: Voiding Method Indwelling Catheter Indwelling Catheter Indwelling Catheter - Exam GENERAL EXAM: Alert, very pleasant, morbidly obese 69-year-old white female on 100% nonrebreather with pulse ox of 96 % comfortable in no apparent distress. HEAD: Normocephalic/atraumatic. EYES: Normal reaction of pupils, equal size. Conjunctiva pink, sclera white. NOSE: Clear with pink turbinates. THROAT: No erythema or exudates. NECK: No masses, no JVD, no thyroid enlargement, no adenopathy. CHEST: No chest wall deformity. Symmetrical expansion. LUNGS: Equal air entry with no crackles, wheeze, rhonchi or dullness. CVS: Regular rate and rhythm, normal S1 and S2, no gallops, no murmurs, no rubs ABDOMEN: Soft, nontender. No hepatosplenomegaly, normal bowel sounds, no guarding or rigidity. EXTREMITIES: No clubbing, no edema, no cyanosis, 2+ pulses and upper and lower extremities. MUSCULOSKELETAL: Muscle strength and tone normal. SPINE: No scoliosis or deformity SKIN: No rashes CENTRAL NERVOUS SYSTEM: Alert and oriented -3. No focal deficits, tone is normal in all 4 extremities. PSYCHIATRIC: Alert and oriented -3. Appropriate affect. Intact judgment and insight. On - Labs CBC & Chem 7: 07/28/20 22:41 08/03/20 06:10 Labs: Abnormal Lab Results - Last 24 Hours (Table) 08/04/20 08/04/20 08/05/20 Range/Units 16:34 20:00 06:00 D-Dimer (<0.60) mg/L FEU POC Glucose (mg/dL) 279 H 255 H 229 H (75-99) mg/dL Lactate Dehydrogenase (313-618) U/L C-Reactive Protein (<10.0) mg/L 08/05/20 08/05/20 08/05/20 Range/Units 08:36 08:36 11:46 D-Dimer 4.31 H (<0.60) mg/L FEU POC Glucose (mg/dL) 147 H (75-99) mg/dL Lactate Dehydrogenase 1911 H (313-618) U/L C-Reactive Protein 89.4 H (<10.0) mg/L Assessment and Plan Plan: Assessment: #1. Acute hypoxic respiratory failure secondary to COVID 19 pneumonitis, patient remains on Decadron, she is on oral anticoagulation in the form of Eliquis #2. Acute exacerbation of diastolic congestive heart failure #3. Acute urinary tract infection related to E. coli, currently on Levaquin #4. Chronic A. fib on Eliquis #5. Moderately severe pulmonary hypertension #6. History of left above-knee amputation #7. History of colostomy #8. Type 2 diabetes mellitus #9. Chronic kidney disease stage III #10. Morbid obesity #11. Benign essential hypertension #12. Dyslipidemia #13. Fibromyalgia #14. Obstructive sleep apnea not utilizing CPAP #15. Resident of long-term [facility] Plan: Continue current antibiotics, wean FiO2, patient denies any worsening dyspnea, no fever, throat, high flow oxygen, encourage deep breathing and coughing, chest x-ray still shows bilateral airspace disease, related to COVID 19 pneumonitis, continue oral anticoagulation, today's inflammatory markers and d-dimer have been noted, still remained significantly elevated, overall prognosis is quite guarded, code status needs to be addressed with patient's legal guardian, will defer to primary care service. I performed a history & physical examination of the patient and discussed their management with my nurse practitioner, Jenny Ness. I reviewed the nurse practitioner's note and agree with the documented findings and plan of care. Lung sounds are positive for diminished breath sounds. The findings and the impression was discussed with the patient. I attest to the documentation by the nurse practitioner. Time with Patient: Less than 30
[2020-08-05] MEDS: LEVOFLOXACIN 250 MG TAB PO SCH (13:01)
[2020-08-05 16:57] LABS: Glucose,Whole Blood 312 mg/dL (75-99)
[2020-08-05 20:10] LABS: Glucose,Whole Blood 320 mg/dL (75-99)
[2020-08-05] MEDS: SENNOSIDES-DOCUSATE SODIUM 1 EACH TAB PO SCH (20:39)
[2020-08-05] MEDS: ATORVASTATIN 40 MG TAB PO SCH (20:40)
[2020-08-06] MEDS: HYDROcodone/APAP 10-325MG 1 EACH TAB PO PRN ×4 (00:28→22:01)
[2020-08-06] MEDS: ACETAMINOPHEN TAB 325 MG TAB PO PRN (04:22)
[2020-08-06 06:03] LABS: Glucose,Whole Blood 211 mg/dL (75-99)
[2020-08-06] MEDS: LINAGLIPTIN 5 MG TABLET PO SCH (06:15)
[2020-08-06] MEDS: DULoxetine HCL 60 MG CAPSULE.DR PO SCH (06:15)
[2020-08-06] MEDS: INSULIN ASPART (NovoLOG) 100 UNIT/ML VIAL SQ SCH ×4 (06:17→22:02)
[2020-08-06] MEDS: SODIUM CHLORIDE 0.9% 1,000 ML IV SCH (06:44)
[2020-08-06] MEDS: methocarbamoL 500 MG TAB PO SCH ×3 (09:28→22:00)
[2020-08-06] MEDS: SULFAMETHOX-TMP 800-160MG 1 EACH TAB PO SCH ×2 (09:28→22:00)
[2020-08-06] MEDS: CHOLECALCIFEROL 1,000 UNIT TAB PO SCH (09:29)
[2020-08-06] MEDS: APIXABAN 5 MG TAB PO SCH ×2 (09:29→22:02)
[2020-08-06] MEDS: ASCORBIC ACID 500 MG TAB PO SCH (09:29)
[2020-08-06] MEDS: METOPROLOL TARTRATE 25 MG TAB PO SCH ×2 (09:29→22:00)
[2020-08-06] MEDS: FAMOTIDINE 20 MG TAB PO SCH (09:29)
[2020-08-06] MEDS: dexAMETHasone 2 MG TAB PO SCH (09:29)
[2020-08-06] MEDS: SODIUM BICARBONATE TAB 650 MG TAB PO SCH ×2 (09:29→22:00)
[2020-08-06] MEDS: FUROSEMIDE 40 MG TAB PO SCH ×2 (09:29→17:55)
[2020-08-06] MEDS: ZINC SULFATE 220 MG CAP PO SCH (09:30)
[2020-08-06] MEDS: lisinopriL 5 MG TAB PO SCH (09:51)
[2020-08-06 12:28] LABS: Glucose,Whole Blood 189 mg/dL (75-99)
[2020-08-06] MEDS: LEVOFLOXACIN 250 MG TAB PO SCH (12:46)
--- NOTE | 2020-08-06 15:36 | P.PN ---
Subjective Progress Note Date: 08/06/20 Principal diagnosis: Acute hypoxic respiratory failure related to COVID19 pneumonitis This is a 69-year-old female patient who resides in extended care facility, she has a history of atrial fibrillation anticoagulated with Eliquis, diabetes mellitus, DVT, hypertension, hyperlipidemia, renal disease, diabetic neuropathy, bowel obstruction status post colostomy placement, left below the knee amputation due to infection, obstructive sleep apnea not on CPAP, history of GI bleed. She was brought in by EMS after having complaints of increasing shortness of breath. She apparently tested positive for CoVID 19 at the longterm. Chest x-ray reveals evidence of pulmonary edema atelectasis left lower lobe. Echocardiogram revealed preserved left ventricular systolic function with ejection fraction 55-60%. Moderate to severe pulmonary hypertension. White count 5.0. Hemoglobin 8.2. D-dimer 1.98. Sodium 144. Potassium 4.4. Creatinine 1.24. Glucose 139. ProBNP 10,000. She is seen today in consultation on the selective care unit. She is somewhat slow to respond. She is maintaining O2 saturations in the 90s on 12 L high flow nasal cannula. She's been initiated on Decadron. Currently afebrile. The patient is seen today 07/31/2020 in follow-up on the selective care unit. She is currently awake and alert in no acute distress. She is maintaining O2 saturation in the 90s on 12 L high flow nasal cannula. The patient keeps pulling off her mask and wants checked on room air she was down to 48% O2 saturations. She is currently afebrile. Urine culture pending. Sodium 148. Potassium 4.7. Creatinine 1.30. She remains on dexamethasone, anticoagulated with Eliquis. Pepcid and vitamin supplements. Initiated on IV diuretics 40 mg every 12 hours. The patient is seen today 08/01/2020 in follow-up on the selective care unit. Currently resting fairly comfortably in bed. Still requiring 12 L high flow nasal cannula to maintain O2 saturation 90s. This temperature 99.1. Slightly tachycardic. Urine culture positive for gram-negative bacilli. Sodium 146. Potassium 3.4. Creatinine 1.28. Receiving Lasix 40 mg IV every 12 hours. Antibiotics in the form of Levaquin. Remains on dexamethasone, vitamin supplement, Pepcid. Patient was reevaluated today on 08/02/2020, remains about the same. Patient is still requiring nonrebreather mask, high flow at 15 L/m, O2 saturation is 90%. She is in no distress, she is hemodynamically stable, and seems to be quite comfortable. Her initial presentation was mostly a presentation of acute Covid 19 pneumonia and hypoxic respiratory failure. He remains on the cocktail. On 08/04/2020 patient seen in follow-up on selective care unit, she is awake and alert, in no acute distress, she is breathing comfortably, although still requiring high flow oxygen, currently on 15 L, her pulse ox is 93%, does get exertional dyspnea, patient will cough, no complete chest discomfort, her last chest x-ray was back in 08/12/2020 showing stable interstitial basilar areas of consolidation small effusion greater on the left. She is awake and alert, she is answering questions appropriately, maintenance on oral Decadron, oral Lasix, cough syrup, Eliquis for anticoagulation. She is on Levaquin for E. coli urinary tract infection On 01/03/2021 patient seen in follow-up on selective care unit, she appears to be drowsy, but she is arousable to verbal stimuli, she is given some simple answers, she states her breathing seems to be okay, no worsening, no significant cough or chest discomfort but she still requiring high flow oxygen, currently 100% nonrebreather, and a pulse ox between 91-96%, she states her biggest complaint is chronic pain, a lot of signs have been stable otherwise 7 hypoxemia, patient continues on oral anticoagulation a form of Eliquis, she remains on Decadron, she is on Levaquin for urinary tract infection, she's had no fevers, today's chest x-ray shows patchy densities in the left lung greater than the right, patient is rotated. His labs have been reviewed, d-dimer is 4.31, LDH is significantly elevated to 1911, and CRP is 89.4. On 08/06/2020 patient seen in follow-up on selective care unit, she is awake, responding appropriately, although seems to be fatigue, does not seem to be in any respiratory distress, still requiring high flow oxygen, currently on 100% nonrebreather mask and her pulse oximetry between 88-90%, she is afebrile, hemodynamically she is stable, today's chest x-ray shows patchy densities in the left lung greater than the right lung, no evident pneumothorax, relatively stable findings on previouschest x-ray. Patient remains on oral Decadron 6 mg daily. She is on oral anticoagulation a form of Eliquis, twice daily, she is on Robitussin, Pepcid, empiric antibiotics in the form of Levaquin, and Bactrim, urine culture was positive for E. coli, which was resistant to Levaquin. Susceptible to Bactrim, we haven't had renal profile checked last couple of days. Objective - Vital Signs Vital signs: Vital Signs Temp 98.8 F 08/06/20 08:00 Pulse 96 08/06/20 14:00 Resp 20 08/06/20 14:00 BP 115/64 08/06/20 12:54 Pulse Ox 88 L 08/06/20 12:54 Intake & Output 08/05/20 08/06/20 08/06/20 18:59 06:59 18:59 Output Total 270 400 Balance -270 -400 Weight 90.5 kg Output: Urine 250 400 Stool 20 Other: Voiding Method Indwelling Catheter Indwelling Catheter Indwelling Catheter - Exam GENERAL EXAM: Alert, very pleasant, morbidly obese 69-year-old white female on 100% nonrebreather with pulse ox of 88-90 % comfortable in no apparent distress. HEAD: Normocephalic/atraumatic. EYES: Normal reaction of pupils, equal size. Conjunctiva pink, sclera white. NOSE: Clear with pink turbinates. THROAT: No erythema or exudates. NECK: No masses, no JVD, no thyroid enlargement, no adenopathy. CHEST: No chest wall deformity. Symmetrical expansion. LUNGS: Equal air entry with no crackles, wheeze, rhonchi or dullness. CVS: Regular rate and rhythm, normal S1 and S2, no gallops, no murmurs, no rubs ABDOMEN: Soft, nontender. No hepatosplenomegaly, normal bowel sounds, no guarding or rigidity. EXTREMITIES: No clubbing, no edema, no cyanosis, 2+ pulses and upper and lower extremities. MUSCULOSKELETAL: Muscle strength and tone normal. SPINE: No scoliosis or deformity SKIN: No rashes CENTRAL NERVOUS SYSTEM: Alert and oriented -3. No focal deficits, tone is normal in all 4 extremities. PSYCHIATRIC: Alert and oriented -3. Appropriate affect. Intact judgment and insight. On - Labs CBC & Chem 7: 07/28/20 22:41 08/03/20 06:10 Labs: Abnormal Lab Results - Last 24 Hours (Table) 08/05/20 08/05/20 08/06/20 Range/Units 16:54 20:09 06:02 POC Glucose (mg/dL) 312 H 320 H 211 H (75-99) mg/dL 08/06/20 Range/Units 12:26 POC Glucose (mg/dL) 189 H (75-99) mg/dL Assessment and Plan Plan: Assessment: #1. Acute hypoxic respiratory failure secondary to COVID 19 pneumonitis, patient remains on Decadron, she is on oral anticoagulation in the form of Eliqu is #2. Acute exacerbation of diastolic congestive heart failure #3. Acute urinary tract infection related to E. coli, currently on Levaquin, and sensitivity screen showed resistance to Levaquin #4. Chronic A. fib on Eliquis #5. Moderately severe pulmonary hypertension #6. History of left above-knee amputation #7. History of colostomy #8. Type 2 diabetes mellitus #9. Chronic kidney disease stage III #10. Morbid obesity #11. Benign essential hypertension #12. Dyslipidemia #13. Fibromyalgia #14. Obstructive sleep apnea not utilizing CPAP #15. Resident of long-term care nursing facility Plan: Continue current medical treatment, his chest x-ray has been reviewed, showing relatively stable findings of bilateral infiltrates, clinically does not complain of any dyspnea, still requires high flow oxygen. Will discontinue Levaquin, patient remains on Bactrim for E. coli urinary tract infection, we'll check renal profile, electrolytes, to consider different antibiotics if there is worsening on the renal profile, will continue with oral anticoagulation, we will increase steroids to IV Solu-Medrol 40 mg every 8 hours. Overall prognosis is guarded. CODE STATUS needs to be addressed by the attending physician I performed a history & physical examination of the patient and discussed their management with my nurse practitioner, Jenny Ness. I reviewed the nurse practitioner's note and agree with the documented findings and plan of care. Lung sounds are positive for diminished breath sounds. The findings and the impression was discussed with the patient. I attest to the documentation by the nurse practitioner. Time with Patient: Less than 30
[2020-08-06 16:46] LABS: Glucose,Whole Blood 251 mg/dL (75-99)
[2020-08-06 17:23] LABS: Calcium 8.2 mg/dL (8.4-10.2); Potassium 4.3 mmol/L (3.5-5.1)
[2020-08-06] MEDS: methylPREDNISolone SOD SUCCI 125 MG/2 ML VIAL IV SCH (17:54)
[2020-08-06 20:05] LABS: Glucose,Whole Blood 295 mg/dL (75-99)
[2020-08-06] MEDS: SENNOSIDES-DOCUSATE SODIUM 1 EACH TAB PO SCH (22:01)
[2020-08-06] MEDS: ATORVASTATIN 40 MG TAB PO SCH (22:02)
[2020-08-07] MEDS: methylPREDNISolone SOD SUCCI 125 MG/2 ML VIAL IV SCH ×5 (01:16→22:57)
[2020-08-07] MEDS: HYDROcodone/APAP 10-325MG 1 EACH TAB PO PRN ×4 (03:25→21:50)
[2020-08-07 06:14] LABS: Glucose,Whole Blood 283 mg/dL (75-99)
[2020-08-07] MEDS: ACETAMINOPHEN TAB 325 MG TAB PO PRN (06:41)
[2020-08-07] MEDS: DULoxetine HCL 60 MG CAPSULE.DR PO SCH (06:41)
[2020-08-07] MEDS: LINAGLIPTIN 5 MG TABLET PO SCH (06:41)
[2020-08-07] MEDS: INSULIN ASPART (NovoLOG) 100 UNIT/ML VIAL SQ SCH ×4 (06:42→22:57)
[2020-08-07] MEDS: SODIUM CHLORIDE 0.9% 1,000 ML IV SCH (06:42)
[2020-08-07 08:03] LABS: Anisocytosis Slight; Basophils % (A) 0 %; Eosinophils % (A) 0 %; HCT 25.7 % (34.0-46.0); HGB 7.8 gm/dL (11.4-16.0); Hypochromasia Marked; Lymphocytes # (A) 0.7 k/uL (1.0-4.8); Lymphocytes % (A) 6 %; MCH 26.3 pg (25.0-35.0); MCHC 30.3 g/dL (31.0-37.0); Mean Platelet Volume 8.4; Monocytes # (A) 0.5 k/uL (0-1.0); Monocytes % (A) 4 %; Neutrophils # (A) 10.8 k/uL (1.3-7.7); Neutrophils % (A) 89 %; Platelet Count 474 k/uL (150-450); RBC 2.95 m/uL (3.80-5.40); RDW 18.4 % (11.5-15.5); WBC 12.1 k/uL (3.8-10.6)
[2020-08-07 08:18] LABS: Calcium 8.3 mg/dL (8.4-10.2); Potassium 4.4 mmol/L (3.5-5.1)
[2020-08-07] MEDS: SODIUM BICARBONATE TAB 650 MG TAB PO SCH ×2 (08:50→22:57)
[2020-08-07] MEDS: ASCORBIC ACID 500 MG TAB PO SCH (08:50)
[2020-08-07] MEDS: CHOLECALCIFEROL 1,000 UNIT TAB PO SCH (08:50)
[2020-08-07] MEDS: FUROSEMIDE 40 MG TAB PO SCH ×2 (08:50→16:53)
[2020-08-07] MEDS: lisinopriL 5 MG TAB PO SCH (08:50)
[2020-08-07] MEDS: ZINC SULFATE 220 MG CAP PO SCH (08:50)
[2020-08-07] MEDS: FAMOTIDINE 20 MG TAB PO SCH (08:50)
[2020-08-07] MEDS: APIXABAN 5 MG TAB PO SCH ×2 (08:50→22:56)
[2020-08-07] MEDS: methocarbamoL 500 MG TAB PO SCH ×3 (08:51→22:57)
[2020-08-07] MEDS: SULFAMETHOX-TMP 800-160MG 1 EACH TAB PO SCH (08:51)
[2020-08-07 09:17] LABS: Polychromasia Present
[2020-08-07 09:18] LABS: Poikilocytosis (M) Present
[2020-08-07] MEDS: METOPROLOL TARTRATE 25 MG TAB PO SCH ×2 (10:31→22:56)
--- NOTE | 2020-08-07 10:46 | P.PN ---
Subjective Progress Note Date: 08/05/20 Principal diagnosis: New onset paroxysmal atrial fibrillation COVID 19 viral pneumonia Acute hypoxic respiratory failure Non-sustained VT Acute on chronic diastolic heart failure 69-year-old female patient admitted for congestive heart failure chronic s ystolic dysfunction with acute exacerbation and patient was also diagnosed with covid 19. Still short of breath but the does appear to have improvement in her respiratory status and creatinine did improve and close to her baseline of around 1.2. Patient is saturating 92 was seen on 12 L of oxygen 07/31/2020 Patient is presently on 10 L of oxygen although patient declining all the care patient doesn't want to be at oxygen patient has a legal guardian we're awaiting the legal guardian's decision regarding her overall goals of care. 08/01/2020 Patient is seen and evaluated in follow-up on the selective care unit. Currently resting fairly comfortably in bed. Still requiring 12 L high flow nasal cannula to maintain O2 saturation 90s. This temperature 99.1. Slightly tachycardic. Urine culture positive for gram-negative bacilli. Sodium 146. Potassium 3.4. Creatinine 1.28. Receiving Lasix 40 mg IV every 12 hours. Antibiotics in the form of Levaquin. Remains on dexamethasone, vitamin supplement, Pepcid. Patient remains anticoagulated with [place]; her prognosis remains guarded; pulmonary is following and recommending to continue to titrate down FiO2 as tolerated; plan is to repeat a follow-up chest x-ray in a.m. Patient remains in atrial fibrillation but remains rate controlled; patient remains on diuretic therapy and has had a negative fluid balance with 7 KG weight loss since admission; cardiology is following and recommending to continue with diuresis and monitor renal function and electrolytes closely As indicated above await legal guardian's decision regarding goals of care 08/02/2020 Patient is seen and evaluated in selective care unit; remains about the same. Patient is still requiring nonrebreather mask, high flow at 15 L/m, O2 saturation is 90%. She is in no distress, she is hemodynamically stable, and seems to be quite comfortable. Her initial presentation was mostly a presentation of acute Covid 19 pneumonia and hypoxic respiratory failure. She remains on the cocktail. Pulmonary service is following; continue with present supportive care measures and titrate FiO2 as able Patient's prognosis remains guarded 08/03/2020 Patient seen and examined this morning. Overall she's feeling quite a bit better compared to yesterday. She is breathing easier. She has less cough and congestion. She remains on nonrebreather with O2 sats in the low 90s. She is afebrile and blood pressure is controlled in the 115 to 130 range. She has been transitioned to by mouth Lasix. 08/04/2020 Patient is currently resting in the bed comfortably. Awake alert and oriented 2-3. Patient is otherwise still requiring oxygen at 15 L via nasal cannula. No complaints of chest pain. Still having exertional dyspnea otherwise. Patient is being continued on Decadron and Eliquis for anticoagulation. Heart rate is controlled. Urine culture showed E. coli and is being continued on Levaquin currently. Pulmonary is on board. 08/05/2020 Patient is currently in the telemetry unit. Patient is requiring 15 L oxygen and on her percent nonrebreather. Patient is drowsy compared to yesterday. No complains of cough or chest discomfort. Otherwise patient is being continued on Decadron and Lovenox. Continued on antibiotics for urinary tract infection with Levaquin. Chest x-ray showed findings consistent with pneumonia with patchy densities present in the left lung greater than right. No pneumothorax or pleural effusion. Patient is still having elevated inflammatory markers. Current medications reviewed. Objective - Vital Signs Vital signs: Vital Signs Temp 98.6 F 08/05/20 23:24 Pulse 96 08/05/20 23:24 Resp 20 08/05/20 23:24 BP 104/58 08/05/20 23:24 Pulse Ox 92 L 08/05/20 23:24 Intake & Output 08/05/20 08/05/20 08/06/20 06:59 18:59 06:59 Output Total 220 270 Balance -220 -270 Weight 88.5 kg Output: Urine 200 250 Stool 20 20 Other: Voiding Method Indwelling Catheter Indwelling Catheter Indwelling Catheter - Exam - Exam GENERAL: The patient is alert and oriented x2-3, not in any acute distress. Drowsy. Well developed, well nourished. HEENT: Pupils are round and equally reacting to light. EOMI. No scleral icterus. No conjunctival pallor. Normocephalic, atraumatic. No pharyngeal erythema. No thyromegaly. CARDIOVASCULAR: S1 and S2 present. No murmurs, rubs, or gallops. PULMONARY: Bibasilar crackles were appreciated ABDOMEN: Soft, nontender, nondistended, normoactive bowel sounds. No palpable organomegaly. MUSCULOSKELETAL: No joint swelling or deformity. EXTREMITIES: No cyanosis, clubbing, or pedal edema. NEUROLOGICAL: Gross neurological examination did not reveal any focal deficits. SKIN: No rashes. - Labs CBC & Chem 7: 08/07/20 07:53 08/07/20 07:53 Labs: Abnormal Lab Results - Last 24 Hours (Table) 08/05/20 08/05/20 08/05/20 Range/Units 06:00 08:36 08:36 D-Dimer 4.31 H (<0.60) mg/L FEU POC Glucose (mg/dL) 229 H (75-99) mg/dL Lactate Dehydrogenase 1911 H (313-618) U/L C-Reactive Protein 89.4 H (<10.0) mg/L 08/05/20 08/05/20 08/05/20 Range/Units 11:46 16:54 20:09 D-Dimer (<0.60) mg/L FEU POC Glucose (mg/dL) 147 H 312 H 320 H (75-99) mg/dL Lactate Dehydrogenase (313-618) U/L C-Reactive Protein (<10.0) mg/L Assessment and Plan Assessment: -Acute hypoxic respiratory failure: Secondary to along with Covid 19 pneumonia and CHF . - congestive heart failure chronic diastolic dysfunction with acute exacerbationPatient will be continued on diuretics and patient is presently on 4 L of oxygen -Episode of nonsustained VT -Covid 19 pneumonia: Patient will be continued on Decadron - paroxysmal A. fib patient the is on beta blockers which will be continued and Eliquis -Acute renal failure: Pre-enal azotemia probably from congestive heart failure exacerbation improved with IV Lasix. Lasix changed to by mouth. 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 Time with Patient: Greater than 30
--- NOTE | 2020-08-07 10:53 | P.PN ---
Subjective Progress Note Date: 08/06/20 Principal diagnosis: New onset paroxysmal atrial fibrillation COVID 19 viral pneumonia Acute hypoxic respiratory failure Non-sustained VT Acute on chronic diastolic heart failure 69-year-old female patient admitted for congestive heart failure chronic s ystolic dysfunction with acute exacerbation and patient was also diagnosed with covid 19. Still short of breath but the does appear to have improvement in her respiratory status and creatinine did improve and close to her baseline of around 1.2. Patient is saturating 92 was seen on 12 L of oxygen 07/31/2020 Patient is presently on 10 L of oxygen although patient declining all the care patient doesn't want to be at oxygen patient has a legal guardian we're awaiting the legal guardian's decision regarding her overall goals of care. 08/01/2020 Patient is seen and evaluated in follow-up on the selective care unit. Currently resting fairly comfortably in bed. Still requiring 12 L high flow nasal cannula to maintain O2 saturation 90s. This temperature 99.1. Slightly tachycardic. Urine culture positive for gram-negative bacilli. Sodium 146. Potassium 3.4. Creatinine 1.28. Receiving Lasix 40 mg IV every 12 hours. Antibiotics in the form of Levaquin. Remains on dexamethasone, vitamin supplement, Pepcid. Patient remains anticoagulated with [place]; her prognosis remains guarded; pulmonary is following and recommending to continue to titrate down FiO2 as tolerated; plan is to repeat a follow-up chest x-ray in a.m. Patient remains in atrial fibrillation but remains rate controlled; patient remains on diuretic therapy and has had a negative fluid balance with 7 KG weight loss since admission; cardiology is following and recommending to continue with diuresis and monitor renal function and electrolytes closely As indicated above await legal guardian's decision regarding goals of care 08/02/2020 Patient is seen and evaluated in selective care unit; remains about the same. Patient is still requiring nonrebreather mask, high flow at 15 L/m, O2 saturation is 90%. She is in no distress, she is hemodynamically stable, and seems to be quite comfortable. Her initial presentation was mostly a presentation of acute Covid 19 pneumonia and hypoxic respiratory failure. She remains on the cocktail. Pulmonary service is following; continue with present supportive care measures and titrate FiO2 as able Patient's prognosis remains guarded 08/03/2020 Patient seen and examined this morning. Overall she's feeling quite a bit better compared to yesterday. She is breathing easier. She has less cough and congestion. She remains on nonrebreather with O2 sats in the low 90s. She is afebrile and blood pressure is controlled in the 115 to 130 range. She has been transitioned to by mouth Lasix. 08/04/2020 Patient is currently resting in the bed comfortably. Awake alert and oriented 2-3. Patient is otherwise still requiring oxygen at 15 L via nasal cannula. No complaints of chest pain. Still having exertional dyspnea otherwise. Patient is being continued on Decadron and Eliquis for anticoagulation. Heart rate is controlled. Urine culture showed E. coli and is being continued on Levaquin currently. Pulmonary is on board. 08/05/2020 Patient is currently in the telemetry unit. Patient is requiring 15 L oxygen and on her percent nonrebreather. Patient is drowsy compared to yesterday. No complains of cough or chest discomfort. Otherwise patient is being continued on Decadron and Lovenox. Continued on antibiotics for urinary tract infection with Levaquin. Chest x-ray showed findings consistent with pneumonia with patchy densities present in the left lung greater than right. No pneumothorax or pleural effusion. Patient is still having elevated inflammatory markers. 08/06/2020 Patient is awake and alert and follows commands. Still requiring oxygen at 15 L via 100% nonrebreather. Patient has been afebrile. Blood pressure is stable. Patient is being continued on Decadron and anticoagulation. Antibiotics the form of Levaquin and Bactrim. Levaquin has been discontinued. Follow-up renal profile tomorrow. Patient has been afebrile. No nausea vomiting or abdominal pain or diarrhea. Current medications reviewed. Objective - Vital Signs Vital signs: Vital Signs Temp 98.8 F 08/06/20 08:00 Pulse 96 08/06/20 14:00 Resp 20 08/06/20 14:00 BP 115/64 08/06/20 12:54 Pulse Ox 88 L 08/06/20 12:54 Intake & Output 08/05/20 08/06/20 08/06/20 18:59 06:59 18:59 Output Total 270 400 Balance -270 -400 Weight 90.5 kg Output: Urine 250 400 Stool 20 Other: Voiding Method Indwelling Catheter Indwelling Catheter Indwelling Catheter - Exam - Exam GENERAL: The patient is alert and oriented x2-3, not in any acute distress. Drowsy. Well developed, well nourished. HEENT: Pupils are round and equally reacting to light. EOMI. No scleral icterus. No conjunctival pallor. Normocephalic, atraumatic. No pharyngeal erythema. No thyromegaly. CARDIOVASCULAR: S1 and S2 present. No murmurs, rubs, or gallops. PULMONARY: Bibasilar crackles were appreciated ABDOMEN: Soft, nontender, nondistended, normoactive bowel sounds. No palpable organomegaly. MUSCULOSKELETAL: No joint swelling or deformity. EXTREMITIES: No cyanosis, clubbing, or pedal edema. NEUROLOGICAL: Gross neurological examination did not reveal any focal deficits. SKIN: No rashes. - Labs CBC & Chem 7: 08/07/20 07:53 08/07/20 07:53 Labs: Abnormal Lab Results - Last 24 Hours (Table) 08/05/20 08/06/20 08/06/20 Range/Units 20:09 06:02 12:26 Carbon Dioxide (22-30) mmol/L BUN (7-17) mg/dL Creatinine (0.52-1.04) mg/dL Glucose (74-99) mg/dL POC Glucose (mg/dL) 320 H 211 H 189 H (75-99) mg/dL Calcium (8.4-10.2) mg/dL 08/06/20 08/06/20 Range/Units 16:20 16:44 Carbon Dioxide 21 L (22-30) mmol/L BUN 94 H (7-17) mg/dL Creatinine 2.53 H (0.52-1.04) mg/dL Glucose 191 H (74-99) mg/dL POC Glucose (mg/dL) 251 H (75-99) mg/dL Calcium 8.2 L (8.4-10.2) mg/dL Assessment and Plan Assessment: -Acute hypoxic respiratory failure: Secondary to along with Covid 19 pneumonia and CHF . - congestive heart failure chronic diastolic dysfunction with acute exacerbationPatient will be continued on diuretics and patient is presently on 4 L of oxygen -Episode of nonsustained VT -Covid 19 pneumonia: Patient will be continued on steroids. -E. coli urinary tract infection. Resistant to Levaquin. Patient has ALLERGY to penicillin and Keflex. - paroxysmal A. fib patient the is on beta blockers which will be continued and Eliquis -Acute renal failure: Pre-enal azotemia probably from congestive heart failure exacerbation improved with IV Lasix. Lasix changed to by mouth. 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 Time with Patient: Greater than 30
[2020-08-07 12:17] LABS: Glucose,Whole Blood 270 mg/dL (75-99)
--- NOTE | 2020-08-07 16:14 | P.PN ---
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 She was brought in by EMS after having complaints of increasing shortness of breath. She apparently tested positive for CoVID 19 at the longterm. Chest x-ray reveals evidence of pulmonary edema atelectasis left lower lobe. Echocardiogram revealed preserved left ventricular systolic function with ejection fraction 55-60%. Moderate to severe pulmonary hypertension. White count 5.0. Hemoglobin 8.2. D-dimer 1.98. Sodium 144. Potassium 4.4. Creatinine 1.24. Glucose 139. ProBNP 10,000. She is seen today in consultation on the selective care unit. She is somewhat slow to respond. She is maintaining O2 saturations in the 90s on 12 L high flow nasal cannula. She's been initiated on Decadron. Currently afebrile. The patient is seen today 07/31/2020 in follow-up on the selective care unit. She is currently awake and alert in no acute distress. She is maintaining O2 saturation in the 90s on 12 L high flow nasal cannula. The patient keeps pulling off her mask and wants checked on room air she was down to 48% O2 satur ations. She is currently afebrile. Urine culture pending. Sodium 148. Potassium 4.7. Creatinine 1.30. She remains on dexamethasone, anticoagulated with Eliquis. Pepcid and vitamin supplements. Initiated on IV diuretics 40 mg every 12 hours. The patient is seen today 08/01/2000 in follow-up on the selective care unit. Currently resting fairly comfortably in bed. Still requiring 12 L high flow nasal cannula to maintain O2 saturation 90s. This temperature 99.1. Slightly tachycardic. Urine culture positive for gram-negative bacilli. Sodium 146. Potassium 3.4. Creatinine 1.28. Receiving Lasix 40 mg IV every 12 hours. Antibiotics in the form of Levaquin. Remains on dexamethasone, vitamin supplement, Pepcid. The patient is seen today 08/07/2020 in follow-up on the selective care unit. She is currently resting comfortably in bed. Opens her eyes to verbal stimuli. Not vocal at this point. She remains on 15 L high flow nasal cannula along with a partial rebreather mask to maintain O2 saturations in the 90s. She is 0.9 normal saline at 10 MLS per hour. White count 12.1. Hemoglobin 7.8. Lymphocytes 0.7. Sodium 136. Potassium 4.4. Creatinine 2.64. Objective - Vital Signs Vital signs: Vital Signs Temp 97.6 F 08/07/20 12:11 Pulse 90 08/07/20 12:11 Resp 20 08/07/20 12:11 BP 113/54 08/07/20 12:11 Pulse Ox 90 L 08/07/20 12:11 Intake & Output 08/06/20 08/07/20 08/07/20 18:59 06:59 18:59 Intake Total 80 Output Total 300 20 Balance -300 60 Weight 91.5 kg Intake: Intake, IV Titration 80 Amount Sodium Chloride 0.9% 1, 80 000 ml @ 20 mls/hr IV . Q24H [facility] Rx#:[id number] Output: Urine 280 Stool 20 20 Other: Voiding Method Indwelling Catheter Indwelling Catheter Indwelling Catheter - Exam GENERAL EXAM: Alert, confused 69-year-old female patient, on 15 L high flow nasal cannula in addition to partial rebreather mass, appears comfortable in no apparent distress. HEAD: Normocephalic. EYES: Normal reaction of pupils, equal size. NOSE: Clear with pink turbinates. THROAT: No erythema or exudates. NECK: No masses, no JVD. CHEST: No chest wall deformity. LUNGS: Equal air entry with basilar crackles CVS: S1 and S2 normal with no audible murmur, regular rhythm. ABDOMEN: No hepatosplenomegaly, normal bowel sounds, no guarding or rigidity. SPINE: No scoliosis or deformity SKIN: No rashes CENTRAL NERVOUS SYSTEM: No focal deficits, tone is normal in all 4 extremities. EXTREMITIES: There is no peripheral edema. No clubbing, no cyanosis. Peripheral pulses are intact. - Labs CBC & Chem 7: 08/07/20 07:53 08/07/20 07:53 Labs: Abnormal Lab Results - Last 24 Hours (Table) 08/06/20 08/06/20 08/06/20 Range/Units 16:20 16:44 19:55 WBC (3.8-10.6) k/uL RBC (3.80-5.40) m/uL Hgb (11.4-16.0) gm/dL Hct (34.0-46.0) % MCHC (31.0-37.0) g/dL RDW (11.5-15.5) % Plt Count (150-450) k/uL Neutrophils # (1.3-7.7) k/uL Lymphocytes # (1.0-4.8) k/uL Sodium (137-145) mmol/L Carbon Dioxide 21 L (22-30) mmol/L BUN 94 H (7-17) mg/dL Creatinine 2.53 H (0.52-1.04) mg/dL Glucose 191 H (74-99) mg/dL POC Glucose (mg/dL) 251 H 295 H (75-99) mg/dL Calcium 8.2 L (8.4-10.2) mg/dL 08/07/20 08/07/20 08/07/20 Range/Units 06:12 07:53 07:53 WBC 12.1 H (3.8-10.6) k/uL RBC 2.95 L (3.80-5.40) m/uL Hgb 7.8 L (11.4-16.0) gm/dL Hct 25.7 L (34.0-46.0) % MCHC 30.3 L (31.0-37.0) g/dL RDW 18.4 H (11.5-15.5) % Plt Count 474 H (150-450) k/uL Neutrophils # 10.8 H (1.3-7.7) k/uL Lymphocytes # 0.7 L (1.0-4.8) k/uL Sodium 136 L (137-145) mmol/L Carbon Dioxide 19 L (22-30) mmol/L BUN 103 H* (7-17) mg/dL Creatinine 2.64 H (0.52-1.04) mg/dL Glucose 256 H (74-99) mg/dL POC Glucose (mg/dL) 283 H (75-99) mg/dL Calcium 8.3 L (8.4-10.2) mg/dL 01/14/21 Range/Units 12:09 WBC (3.8-10.6) k/uL RBC (3.80-5.40) m/uL Hgb (11.4-16.0) gm/dL Hct (34.0-46.0) % MCHC (31.0-37.0) g/dL RDW (11.5-15.5) % Plt Count (150-450) k/uL Neutrophils # (1.3-7.7) k/uL Lymphocytes # (1.0-4.8) k/uL Sodium (137-145) mmol/L Carbon Dioxide (22-30) mmol/L BUN (7-17) mg/dL Creatinine (0.52-1.04) mg/dL Glucose (74-99) mg/dL POC Glucose (mg/dL) 270 H (75-99) mg/dL Calcium (8.4-10.2) mg/dL Assessment and Plan Assessment: 1 Acute hypoxemic respiratory failure secondary to CoVID 19 pneumonia here currently on 15 L high flow nasal cannula 2 Acute exacerbation of diastolic congestive heart failure 3 Atrial fibrillation, anticoagulated with Eliquis 4 Moderate severe pulmonary hypertension 5 History of bowel obstruction status post colostomy 6 History of wound infection status post left [id number] amputation 7 Diabetes mellitus 8 Diabetic neuropathy 9 Chronic kidney disease stage III 10 Morbid obesity. 11 Obstructive sleep apnea not utilizing CPAP 12 Hypertension 13 Hyperlipidemia 14 Fibromyalgia 15 assisted resident 16 Poor overall functional performance based on the above-mentioned multiple comorbidities Plan: The patient was seen and evaluated by Dr. Webb Continue current treatment plan She is a DO NOT RESUSCITATE/DO NOT INTUBATE CODE STATUS Prognosis is poor We will continue to follow and make further recommendations based on her clinica l status I, the cosigning physician, performed a history & physical examination of the patient. Lungs sounds with crackles in the bilateral posterior bases. Maintaining good O2 saturations in the 90s on 15 L high flow nasal cannula. I discussed the assessment and plan of care with my nurse practitioner, Muriel Edmonds. I attest to the above note as dictated by her.
[2020-08-07 17:12] LABS: Glucose,Whole Blood 282 mg/dL (75-99)
[2020-08-07 20:53] LABS: Glucose,Whole Blood 269 mg/dL (75-99)
[2020-08-07] MEDS: ATORVASTATIN 40 MG TAB PO SCH (22:56)
[2020-08-07] MEDS: SENNOSIDES-DOCUSATE SODIUM 1 EACH TAB PO SCH (22:56)
[2020-08-07] MEDS: INSULIN DETEMIR (LEVEMIR) 100 UNIT/ML SYR SQ SCH (22:57)
[2020-08-08] MEDS: SODIUM CHLORIDE 0.9% 1,000 ML IV SCH (04:14)
[2020-08-08 06:35] LABS: Glucose,Whole Blood 273 mg/dL (75-99)
[2020-08-08] MEDS: INSULIN ASPART (NovoLOG) 100 UNIT/ML VIAL SQ SCH ×4 (06:52→20:35)
[2020-08-08] MEDS: methylPREDNISolone SOD SUCCI 125 MG/2 ML VIAL IV SCH ×3 (06:52→17:37)
[2020-08-08] MEDS: LINAGLIPTIN 5 MG TABLET PO SCH (06:53)
[2020-08-08] MEDS: HYDROcodone/APAP 10-325MG 1 EACH TAB PO PRN ×2 (06:53→20:34)
[2020-08-08] MEDS: DULoxetine HCL 60 MG CAPSULE.DR PO SCH (06:53)
[2020-08-08] MEDS: lisinopriL 5 MG TAB PO SCH (08:40)
[2020-08-08] MEDS: SODIUM BICARBONATE TAB 650 MG TAB PO SCH ×2 (08:40→20:34)
[2020-08-08] MEDS: ZINC SULFATE 220 MG CAP PO SCH (08:40)
[2020-08-08] MEDS: FUROSEMIDE 40 MG TAB PO SCH ×2 (08:40→17:37)
[2020-08-08] MEDS: ASCORBIC ACID 500 MG TAB PO SCH (08:40)
[2020-08-08] MEDS: APIXABAN 5 MG TAB PO SCH ×2 (08:40→20:34)
[2020-08-08] MEDS: methocarbamoL 500 MG TAB PO SCH ×3 (08:40→22:31)
[2020-08-08] MEDS: FAMOTIDINE 20 MG TAB PO SCH (08:40)
[2020-08-08] MEDS: CHOLECALCIFEROL 1,000 UNIT TAB PO SCH (08:41)
[2020-08-08] MEDS: METOPROLOL TARTRATE 25 MG TAB PO SCH ×2 (08:44→22:32)
[2020-08-08] MEDS: MORPHINE SULFATE 4 MG/ML SYRINGE IVP PRN ×3 (11:50→22:30)
[2020-08-08 11:53] LABS: Glucose,Whole Blood 234 mg/dL (75-99)
--- NOTE | 2020-08-08 15:43 | P.PN ---
Subjective Progress Note Date: 08/08/20 Principal diagnosis: Acute hypoxic respiratory failure related to COVID19 pneumonitis This is a 69-year-old female patient who resides in extended care facility, she has a history of atrial fibrillation anticoagulated with Eliquis, diabetes mellitus, DVT, hypertension, hyperlipidemia, renal disease, diabetic neuropathy, bowel obstruction status post colostomy placement, left below the knee amputation due to infection, obstructive sleep apnea not on CPAP, history of GI bleed. She was brought in by EMS after having complaints of increasing shortness of breath. She apparently tested positive for CoVID 19 at the retirement. Chest x-ray reveals evidence of pulmonary edema atelectasis left lower lobe. Echocardiogram revealed preserved left ventricular systolic function with ejection fraction 55-60%. Moderate to severe pulmonary hypertension. White count 5.0. Hemoglobin 8.2. D-dimer 1.98. Sodium 144. Potassium 4.4. Creatinine 1.24. Glucose 139. ProBNP 10,000. She is seen today in consultation on the selective care unit. She is somewhat slow to respond. She is maintaining O2 saturations in the 90s on 12 L high flow nasal cannula. She's been initiated on Decadron. Currently afebrile. The patient is seen today 07/31/2020 in follow-up on the selective care unit. She is currently awake and alert in no acute distress. She is maintaining O2 saturation in the 90s on 12 L high flow nasal cannula. The patient keeps pulling off her mask and wants checked on room air she was down to 48% O2 saturations. She is currently afebrile. Urine culture pending. Sodium 148. Potassium 4.7. Creatinine 1.30. She remains on dexamethasone, anticoagulated with Eliquis. Pepcid and vitamin supplements. Initiated on IV diuretics 40 mg every 12 hours. The patient is seen today 08/01/2020 in follow-up on the selective care unit. Currently resting fairly comfortably in bed. Still requiring 12 L high flow nasal cannula to maintain O2 saturation 90s. This temperature 99.1. Slightly tachycardic. Urine culture positive for gram-negative bacilli. Sodium 146. Potassium 3.4. Creatinine 1.28. Receiving Lasix 40 mg IV every 12 hours. Antibiotics in the form of Levaquin. Remains on dexamethasone, vitamin supplement, Pepcid. Patient was reevaluated today on 08/02/2020, remains about the same. Patient is still requiring nonrebreather mask, high flow at 15 L/m, O2 saturation is 90%. She is in no distress, she is hemodynamically stable, and seems to be quite comfortable. Her initial presentation was mostly a presentation of acute Covid 19 pneumonia and hypoxic respiratory failure. He remains on the cocktail. On 08/04/2020 patient seen in follow-up on selective care unit, she is awake and alert, in no acute distress, she is breathing comfortably, although still requiring high flow oxygen, currently on 15 L, her pulse ox is 93%, does get exertional dyspnea, patient will cough, no complete chest discomfort, her last chest x-ray was back in 08/12/2020 showing stable interstitial basilar areas of consolidation small effusion greater on the left. She is awake and alert, she is answering questions appropriately, maintenance on oral Decadron, oral Lasix, cough syrup, Eliquis for anticoagulation. She is on Levaquin for E. coli urinary tract infection On 01/03/2021 patient seen in follow-up on selective care unit, she appears to be drowsy, but she is arousable to verbal stimuli, she is given some simple answers, she states her breathing seems to be okay, no worsening, no significant cough or chest discomfort but she still requiring high flow oxygen, currently 100% nonrebreather, and a pulse ox between 91-96%, she states her biggest complaint is chronic pain, a lot of signs have been stable otherwise 7 hypoxemia, patient continues on oral anticoagulation a form of Eliquis, she remains on Decadron, she is on Levaquin for urinary tract infection, she's had no fevers, today's chest x-ray shows patchy densities in the left lung greater than the right, patient is rotated. His labs have been reviewed, d-dimer is 4.31, LDH is significantly elevated to 1911, and CRP is 89.4. On 08/06/2020 patient seen in follow-up on selective care unit, she is awake, responding appropriately, although seems to be fatigue, does not seem to be in any respiratory distress, still requiring high flow oxygen, currently on 100% nonrebreather mask and her pulse oximetry between 88-90%, she is afebrile, hemodynamically she is stable, today's chest x-ray shows patchy densities in the left lung greater than the right lung, no evident pneumothorax, relatively stable findings on previouschest x-ray. Patient remains on oral Decadron 6 mg daily. She is on oral anticoagulation a form of Eliquis, twice daily, she is on Robitussin, Pepcid, empiric antibiotics in the form of Levaquin, and Bactrim, urine culture was positive for E. coli, which was resistant to Levaquin. Susceptible to Bactrim, we haven't had renal profile checked last couple of days. On 08/08/2020 patient seen in follow-up on selective care unit, she still continues on partial nonrebreather mask, her pulse ox is 91%, she's been afebrile, respirations are shallow, tachypneic, patient denies acute respiratory distress, however she has been on high flow oxygen, and attempts to wean off her oxygen have not been successful. She is confused, she is yelling out he states she wants "out of here". Patient has been on Decadron, and anticoagulation, she has been on Levaquin and Bactrim for evidence of E. coli urinary tract infection, both have been discontinued, patient has been afebrile. He is on high dose IV Solu-Medrol, her last chest x-ray back on 08/05/2020 showed patchy densities in the left lung greater than the right. Despite the medical treatment patient has not been able to extubate significant progress in terms of weaning from high FiO2. Her CODE STATUS had been denied resuscitate, hospice was recommended, and his legal guardian agreed with the recommendation, and the patient's daughter apparently also agreed according to the nursing staff. Vishal jorgensen is following, and the plan is for the patient to return to [facility] on hospice care versus inpatient hospice. Objective - Vital Signs Vital signs: Vital Signs Temp 98.1 F 08/08/20 08:00 Pulse 97 08/08/20 12:00 Resp 20 08/08/20 12:00 BP 117/58 08/08/20 12:00 Pulse Ox 91 L 08/08/20 12:00 Intake & Output 08/07/20 08/08/20 08/08/20 18:59 06:59 18:59 Intake Total 80 Output Total 20 420 700 Balance 60 -420 -700 Weight 91 kg Intake: Intake, IV Titration 80 Amount Sodium Chloride 0.9% 1, 80 000 ml @ 20 mls/hr IV . Q24H [facility] Rx#:[id number] Output: Urine 400 700 Stool 20 20 Other: Voiding Method Indwelling Catheter Indwelling Catheter Indwelling Catheter - Exam GENERAL EXAM: Alert, very pleasant, morbidly obese 69-year-old white female on 100% nonrebreather with pulse ox of 88-90 % comfortable in no apparent distress. HEAD: Normocephalic/atraumatic. EYES: Normal reaction of pupils, equal size. Conjunctiva pink, sclera white. NOSE: Clear with pink turbinates. THROAT: No erythema or exudates. NECK: No masses, no JVD, no thyroid enlargement, no adenopathy. CHEST: No chest wall deformity. Symmetrical expansion. LUNGS: Equal air entry with no crackles, wheeze, rhonchi or dullness. CVS: Regular rate and rhythm, normal S1 and S2, no gallops, no murmurs, no rubs ABDOMEN: Soft, nontender. No hepatosplenomegaly, normal bowel sounds, no guarding or rigidity. EXTREMITIES: No clubbing, no edema, no cyanosis, 2+ pulses and upper and lower extremities. MUSCULOSKELETAL: Muscle strength and tone normal. SPINE: No scoliosis or deformity SKIN: No rashes CENTRAL NERVOUS SYSTEM: Alert and oriented -3. No focal deficits, tone is normal in all 4 extremities. PSYCHIATRIC: Alert and oriented -3. Appropriate affect. Intact judgment and insight. On - Labs CBC & Chem 7: 08/07/20 07:53 08/07/20 07:53 Labs: Abnormal Lab Results - Last 24 Hours (Table) 08/07/20 08/07/20 08/08/20 Range/Units 17:11 20:36 06:32 POC Glucose (mg/dL) 282 H 269 H 273 H (75-99) mg/dL 08/08/20 Range/Units 11:52 POC Glucose (mg/dL) 234 H (75-99) mg/dL Assessment and Plan Plan: Assessment: #1. Acute hypoxic respiratory failure secondary to COVID 19 pneumonitis, patient remains on Decadron, she is on oral anticoagulation in the form of Eliquis #2. Acute exacerbation of diastolic congestive heart failure #3. Acute urinary tract infection related to E. coli, currently on Levaquin, and sensitivity screen showed resistance to Levaquin #4. Chronic A. fib on Eliquis #5. Moderately severe pulmonary hypertension #6. History of left above-knee amputation #7. History of colostomy #8. Type 2 diabetes mellitus #9. Chronic kidney disease stage III #10. Morbid obesity #11. Benign essential hypertension #12. Dyslipidemia #13. Fibromyalgia #14. Obstructive sleep apnea not utilizing CPAP #15. Resident of long-term care nursing facility Plan: Continue current medical treatment, continue steroids and anticoagulation. Patient has completed antibiotics for urinary tract infection, despite medical treatment patient has not been able to make significant progress in terms of weaning from high flow oxygen, is increasingly more debilitated, she has multiple medical problems. Code status is DO NOT RESUSCITATE. Legal guardian and patient's daughter were updated and currently the plan is to consult hospice and make arrangements to transfer the patient to ECF under the hospice care or start inpatient hospice. I performed a history & physical examination of the patient and discussed their management with my nurse practitioner, Jenny Ness. I reviewed the nurse practitioner's note and agree with the documented findings and plan of care. Lung sounds are positive for diminished breath sounds. The findings and the impression was discussed with the patient. I attest to the documentation by the nurse practitioner. Time with Patient: Less than 30
[2020-08-08 17:08] LABS: Glucose,Whole Blood 237 mg/dL (75-99)
[2020-08-08] MEDS: SENNOSIDES-DOCUSATE SODIUM 1 EACH TAB PO SCH (20:34)
[2020-08-08] MEDS: ATORVASTATIN 40 MG TAB PO SCH (20:34)
[2020-08-08] MEDS: INSULIN DETEMIR (LEVEMIR) 100 UNIT/ML SYR SQ SCH (20:35)
[2020-08-08 20:58] LABS: Glucose,Whole Blood 234 mg/dL (75-99)
[2020-08-09] MEDS: methylPREDNISolone SOD SUCCI 125 MG/2 ML VIAL IV SCH ×5 (00:06→22:53)
[2020-08-09] MEDS: MORPHINE SULFATE 4 MG/ML SYRINGE IVP PRN ×4 (02:11→23:01)
[2020-08-09 06:25] LABS: Glucose,Whole Blood 221 mg/dL (75-99)
[2020-08-09] MEDS: DULoxetine HCL 60 MG CAPSULE.DR PO SCH (06:32)
[2020-08-09] MEDS: LINAGLIPTIN 5 MG TABLET PO SCH (06:32)
[2020-08-09] MEDS: INSULIN ASPART (NovoLOG) 100 UNIT/ML VIAL SQ SCH ×4 (06:32→21:15)
[2020-08-09] MEDS: CHOLECALCIFEROL 1,000 UNIT TAB PO SCH (08:21)
[2020-08-09] MEDS: SODIUM BICARBONATE TAB 650 MG TAB PO SCH ×2 (08:21→21:15)
[2020-08-09] MEDS: lisinopriL 5 MG TAB PO SCH (08:21)
[2020-08-09] MEDS: APIXABAN 5 MG TAB PO SCH ×2 (08:21→21:15)
[2020-08-09] MEDS: FUROSEMIDE 40 MG TAB PO SCH ×2 (08:21→17:08)
[2020-08-09] MEDS: FAMOTIDINE 20 MG TAB PO SCH (08:21)
[2020-08-09] MEDS: ZINC SULFATE 220 MG CAP PO SCH (08:22)
[2020-08-09] MEDS: ASCORBIC ACID 500 MG TAB PO SCH (08:22)
[2020-08-09] MEDS: METOPROLOL TARTRATE 25 MG TAB PO SCH ×2 (08:24→21:15)
[2020-08-09] MEDS: methocarbamoL 500 MG TAB PO SCH ×3 (08:24→21:15)
[2020-08-09] MEDS: SODIUM CHLORIDE 0.9% 1,000 ML IV SCH (08:25)
[2020-08-09 12:05] LABS: Glucose,Whole Blood 229 mg/dL (75-99)
[2020-08-09] MEDS: HYDROcodone/APAP 10-325MG 1 EACH TAB PO PRN (12:18)
--- NOTE | 2020-08-09 15:26 | P.PN ---
Subjective Progress Note Date: 08/09/20 Principal diagnosis: COVID 19 infection. On 08/04/2020 patient seen in follow-up on selective care unit, she is awake and alert, in no acute distress, she is breathing comfortably, although still requiring high flow oxygen, currently on 15 L, her pulse ox is 93%, does get exertional dyspnea, patient will cough, no complete chest discomfort, her last chest x-ray was back in 08/12/2020 showing stable interstitial basilar areas of consolidation small effusion greater on the left. She is awake and alert, she is answering questions appropriately, maintenance on oral Decadron, oral Lasix, cough syrup, Eliquis for anticoagulation. She is on Levaquin for E. coli urinary tract infection On 01/03/2021 patient seen in follow-up on selective care unit, she appears to be drowsy, but she is arousable to verbal stimuli, she is given some simple answers, she states her breathing seems to be okay, no worsening, no significant cough or chest discomfort but she still requiring high flow oxygen, currently 100% nonrebreather, and a pulse ox between 91-96%, she states her biggest c omplaint is chronic pain, a lot of signs have been stable otherwise 7 hypoxemia, patient continues on oral anticoagulation a form of Eliquis, she remains on Decadron, she is on Levaquin for urinary tract infection, she's had no fevers, today's chest x-ray shows patchy densities in the left lung greater than the right, patient is rotated. His labs have been reviewed, d-dimer is 4.31, LDH is significantly elevated to 1911, and CRP is 89.4. On 08/06/2020 patient seen in follow-up on selective care unit, she is awake, responding appropriately, although seems to be fatigue, does not seem to be in any respiratory distress, still requiring high flow oxygen, currently on 100% nonrebreather mask and her pulse oximetry between 88-90%, she is afebrile, hemodynamically she is stable, today's chest x-ray shows patchy densities in the left lung greater than the right lung, no evident pneumothorax, relatively stable findings on previouschest x-ray. Patient remains on oral Decadron 6 mg daily. She is on oral anticoagulation a form of Eliquis, twice daily, she is on Robitussin, Pepcid, empiric antibiotics in the form of Levaquin, and Bactrim, urine culture was positive for E. coli, which was resistant to Levaquin. Susceptible to Bactrim, we haven't had renal profile checked last couple of da ys. On 08/08/2020 patient seen in follow-up on selective care unit, she still continues on partial nonrebreather mask, her pulse ox is 91%, she's been afebrile, respirations are shallow, tachypneic, patient denies acute respiratory distress, however she has been on high flow oxygen, and attempts to wean off her oxygen have not been successful. She is confused, she is yelling out he states she wants "out of here". Patient has been on Decadron, and anticoagulation, she has been on Levaquin and Bactrim for evidence of E. coli urinary tract infection, both have been discontinued, patient has been afebrile. He is on high dose IV Solu-Medrol, her last chest x-ray back on 08/05/2020 showed patchy densities in the left lung greater than the right. Despite the medical treatment patient has not been able to extubate significant progress in terms of weaning from high FiO2. Her CODE STATUS had been denied resuscitate, hospice was recommended, and his legal guardian agreed with the recommendation, and the patient's daughter apparently also agreed according to the nursing staff. Social work is following, and the plan is for the patient to return to [facility] on hospice care versus inpatient hospice. Progress note dated 08/09/2020. 69-year-old female who is currently on a 15 L high flow nasal cannula, and a nonrebreather mask. The patient is a no code patient. She is not doing very well and has really not made much progress over the last few days. She was admitted with acute hypoxemic respiratory failure secondary to COVID 19 pneumonia, , acute exacerbation of diastolic heart failure, and acute urinary tract infection secondary to Escherichia coli. In addition, the patient has a history of chronic atrial fibrillation, moderately severe pulmonary hypertension, left [id number] amputation, history of colostomy, type 2 diabetes mellitus, chronic kidney disease, stage III, morbid obesity, benign essential hypertension, hyperlipidemia, fibromyalgia, and sleep apnea syndrome. The patient is a long-term resident of a nursing facility. Objective - Vital Signs Vital signs: Vital Signs Temp 97.6 F 08/09/20 08:15 Pulse 90 08/09/20 12:50 Resp 22 08/09/20 12:50 BP 91/51 08/09/20 11:23 Pulse Ox 91 L 08/09/20 11:23 Intake & Output 08/08/20 08/09/20 08/09/20 18:59 06:59 18:59 Intake Total 0 Output Total 700 20 Balance -700 -20 0 Weight 91 kg Intake: Oral 0 Output: Urine 700 Stool 20 Other: Voiding Method Indwelling Catheter Indwelling Catheter Indwelling Catheter - Exam Poorly responsive, currently on 15 L high flow nasal cannula, and a nonrebreather mask. HEENT examination is grossly unremarkable. Neck supple. Full range of motion. No adenopathy thyromegaly or neck vein distention. Cardiovascular examination reveals regular rhythm rate. S1-S2 normal. No S3 or S4. No discernible murmur noted. Heart sounds are distant. Heart rate 90 bpm. Lungs reveal use bilateral rhonchi. No wheezes. A few crackles. Breath sounds equal. Abdomen soft bowel sounds are heard. No masses or tenderness. Extremities are intact. Amputation is noted. No cyanosis or clubbing. Skin is without rash or lesion. Neurologic examination is very difficult to assess. The patient's very lethargic and sleepy. - Labs CBC & Chem 7: 08/07/20 07:53 08/07/20 07:53 Labs: Abnormal Lab Results - Last 24 Hours (Table) 08/08/20 08/08/20 08/09/20 Range/Units 17:02 20:27 06:21 POC Glucose (mg/dL) 237 H 234 H 221 H (75-99) mg/dL 08/09/20 Range/Units 12:03 POC Glucose (mg/dL) 229 H (75-99) mg/dL Assessment and Plan Assessment: #1. Acute hypoxic respiratory failure secondary to COVID 19 pneumonitis, patient remains on Decadron, she is on oral anticoagulation in the form of Eliquis. #2. Acute exacerbation of diastolic congestive heart failure. #3. Acute urinary tract infection related to E. coli, currently on Levaquin, and sensitivity screen showed resistance to Levaquin. #4. Chronic A. fib on Eliquis. #5. Moderately severe pulmonary hypertension. #6. History of left above-knee amputation. #7. History of colostomy. #8. Type 2 diabetes mellitus. #9. Chronic kidney disease stage III. #10. Morbid obesity. #11. Benign essential hypertension. #12. Dyslipidemia. #13. Fibromyalgia. #14. Obstructive sleep apnea not utilizing CPAP. #15. Resident of long-term care nursing facility. Plan: Plan dated 08/09/2020. Currently, the patient is not really making much progress. The patient's CODE STATUS has been addressed and she is a no code. The patient is currently on appropriate medications. Unfortunately, her oxygen requirements have continued to increase and she is currently on 15 L high flow nasal cannula as well as a nonrebreather mask. The plan is to consult hospice. I think that's appropriate given this patient's overall condition. Additional recommendations and suggestions are forthcoming. Prognosis is very poor. Time with Patient: Less than 30
[2020-08-09 16:58] LABS: Glucose,Whole Blood 200 mg/dL (75-99)
[2020-08-09 20:45] LABS: Glucose,Whole Blood 212 mg/dL (75-99)
[2020-08-09] MEDS: SENNOSIDES-DOCUSATE SODIUM 1 EACH TAB PO SCH (21:15)
[2020-08-09] MEDS: INSULIN DETEMIR (LEVEMIR) 100 UNIT/ML SYR SQ SCH (21:15)
[2020-08-09] MEDS: ATORVASTATIN 40 MG TAB PO SCH (21:15)
[2020-08-10] MEDS: MORPHINE SULFATE 4 MG/ML SYRINGE IVP PRN ×3 (03:14→17:35)
[2020-08-10 06:21] LABS: Glucose,Whole Blood 252 mg/dL (75-99)
[2020-08-10] MEDS: HYDROcodone/APAP 10-325MG 1 EACH TAB PO PRN ×3 (06:31→20:47)
[2020-08-10] MEDS: LINAGLIPTIN 5 MG TABLET PO SCH (06:32)
[2020-08-10] MEDS: methylPREDNISolone SOD SUCCI 125 MG/2 ML VIAL IV SCH ×4 (06:32→23:49)
[2020-08-10] MEDS: INSULIN ASPART (NovoLOG) 100 UNIT/ML VIAL SQ SCH ×4 (06:32→20:48)
[2020-08-10] MEDS: DULoxetine HCL 60 MG CAPSULE.DR PO SCH (06:32)
[2020-08-10] MEDS: FAMOTIDINE 20 MG TAB PO SCH (08:18)
[2020-08-10] MEDS: ASCORBIC ACID 500 MG TAB PO SCH ×2 (08:18→08:25)
[2020-08-10] MEDS: CHOLECALCIFEROL 1,000 UNIT TAB PO SCH (08:18)
[2020-08-10] MEDS: methocarbamoL 500 MG TAB PO SCH ×4 (08:18→20:49)
[2020-08-10] MEDS: METOPROLOL TARTRATE 25 MG TAB PO SCH ×2 (08:18→20:48)
[2020-08-10] MEDS: ZINC SULFATE 220 MG CAP PO SCH ×2 (08:18→08:26)
[2020-08-10] MEDS: SODIUM BICARBONATE TAB 650 MG TAB PO SCH ×2 (08:19→20:48)
[2020-08-10] MEDS: FUROSEMIDE 40 MG TAB PO SCH ×2 (08:19→16:13)
[2020-08-10] MEDS: APIXABAN 5 MG TAB PO SCH ×2 (08:19→20:48)
[2020-08-10] MEDS: lisinopriL 5 MG TAB PO SCH (08:19)
[2020-08-10] MEDS: SODIUM CHLORIDE 0.9% 1,000 ML IV SCH (08:25)
[2020-08-10 11:56] LABS: Glucose,Whole Blood 201 mg/dL (75-99)
[2020-08-10 16:58] LABS: Glucose,Whole Blood 175 mg/dL (75-99)
[2020-08-10 20:07] LABS: Glucose,Whole Blood 173 mg/dL (75-99)
[2020-08-10] MEDS: SENNOSIDES-DOCUSATE SODIUM 1 EACH TAB PO SCH (20:48)
[2020-08-10] MEDS: ATORVASTATIN 40 MG TAB PO SCH (20:48)
[2020-08-10] MEDS: INSULIN DETEMIR (LEVEMIR) 100 UNIT/ML SYR SQ SCH (20:48)
--- NOTE | 2020-08-10 21:13 | P.PN ---
Subjective Progress Note Date: 08/07/20 Principal diagnosis: New onset paroxysmal atrial fibrillation COVID 19 viral pneumonia Acute hypoxic respiratory failure Non-sustained VT Acute on chronic diastolic heart failure 69-year-old female patient admitted for congestive heart failure chronic s ystolic dysfunction with acute exacerbation and patient was also diagnosed with covid 19. Still short of breath but the does appear to have improvement in her respiratory status and creatinine did improve and close to her baseline of around 1.2. Patient is saturating 92 was seen on 12 L of oxygen 07/31/2020 Patient is presently on 10 L of oxygen although patient declining all the care patient doesn't want to be at oxygen patient has a legal guardian we're awaiting the legal guardian's decision regarding her overall goals of care. 08/01/2020 Patient is seen and evaluated in follow-up on the selective care unit. Currently resting fairly comfortably in bed. Still requiring 12 L high flow nasal cannula to maintain O2 saturation 90s. This temperature 99.1. Slightly tachycardic. Urine culture positive for gram-negative bacilli. Sodium 146. Potassium 3.4. Creatinine 1.28. Receiving Lasix 40 mg IV every 12 hours. Antibiotics in the form of Levaquin. Remains on dexamethasone, vitamin supplement, Pepcid. Patient remains anticoagulated with [place]; her prognosis remains guarded; pulmonary is following and recommending to continue to titrate down FiO2 as tolerated; plan is to repeat a follow-up chest x-ray in a.m. Patient remains in atrial fibrillation but remains rate controlled; patient remains on diuretic therapy and has had a negative fluid balance with 7 KG weight loss since admission; cardiology is following and recommending to continue with diuresis and monitor renal function and electrolytes closely As indicated above await legal guardian's decision regarding goals of care 08/02/2020 Patient is seen and evaluated in selective care unit; remains about the same. Patient is still requiring nonrebreather mask, high flow at 15 L/m, O2 saturation is 90%. She is in no distress, she is hemodynamically stable, and seems to be quite comfortable. Her initial presentation was mostly a presentation of acute Covid 19 pneumonia and hypoxic respiratory failure. She remains on the cocktail. Pulmonary service is following; continue with present supportive care measures and titrate FiO2 as able Patient's prognosis remains guarded 08/03/2020 Patient seen and examined this morning. Overall she's feeling quite a bit better compared to yesterday. She is breathing easier. She has less cough and congestion. She remains on nonrebreather with O2 sats in the low 90s. She is afebrile and blood pressure is controlled in the 115 to 130 range. She has been transitioned to by mouth Lasix. 08/04/2020 Patient is currently resting in the bed comfortably. Awake alert and oriented 2-3. Patient is otherwise still requiring oxygen at 15 L via nasal cannula. No complaints of chest pain. Still having exertional dyspnea otherwise. Patient is being continued on Decadron and Eliquis for anticoagulation. Heart rate is controlled. Urine culture showed E. coli and is being continued on Levaquin currently. Pulmonary is on board. 08/05/2020 Patient is currently in the telemetry unit. Patient is requiring 15 L oxygen and on her percent nonrebreather. Patient is drowsy compared to yesterday. No complains of cough or chest discomfort. Otherwise patient is being continued on Decadron and Lovenox. Continued on antibiotics for urinary tract infection with Levaquin. Chest x-ray showed findings consistent with pneumonia with patchy densities present in the left lung greater than right. No pneumothorax or pleural effusion. Patient is still having elevated inflammatory markers. 08/06/2020 Patient is awake and alert and follows commands. Still requiring oxygen at 15 L via 100% nonrebreather. Patient has been afebrile. Blood pressure is stable. Patient is being continued on Decadron and anticoagulation. Antibiotics the form of Levaquin and Bactrim. Levaquin has been discontinued. Follow-up renal profile tomorrow. Patient has been afebrile. No nausea vomiting or abdominal pain or diarrhea. 08/07/20 Patient is confused and lethargic. Talking to herself. Still requiring oxygen at 15 L via 100% nonrebreather. Afebrile. Laboratory data showed sodium 136, potassium 4.4, Due to worsening clinical status I did discuss with her legal guardian. Agreeable to comfort care and possible hospice transfer. Current medications reviewed. Objective - Vital Signs Vital signs: Vital Signs Temp 97.7 F 08/07/20 16:00 Pulse 68 08/07/20 16:00 Resp 20 08/07/20 16:00 BP 138/87 08/07/20 16:00 Pulse Ox 92 L 08/07/20 16:00 Intake & Output 08/06/20 08/07/20 08/07/20 18:59 06:59 18:59 Intake Total 80 Output Total 300 20 Balance -300 60 Weight 91.5 kg Intake: Intake, IV Titration 80 Amount Sodium Chloride 0.9% 1, 80 000 ml @ 20 mls/hr IV . Q[facility]H [facility] Rx#:[id number] Output: Urine 280 Stool 20 20 Other: Voiding Method Indwelling Catheter Indwelling Catheter Indwelling Catheter - Exam - Exam GENERAL: The patient is alert and oriented x1-2, not in any acute distress. Drowsy. Well developed, well nourished. HEENT: Pupils are round and equally reacting to light. EOMI. No scleral icterus. No conjunctival pallor. Normocephalic, atraumatic. No pharyngeal erythema. No thyromegaly. CARDIOVASCULAR: S1 and S2 present. No murmurs, rubs, or gallops. PULMONARY: Bibasilar crackles were appreciated ABDOMEN: Soft, nontender, nondistended, normoactive bowel sounds. No palpable organomegaly. MUSCULOSKELETAL: No joint swelling or deformity. EXTREMITIES: No cyanosis, clubbing, or pedal edema. NEUROLOGICAL: Gross neurological examination did not reveal any focal deficits. SKIN: No rashes. - Labs CBC & Chem 7: 08/07/20 07:53 08/07/20 07:53 Labs: Abnormal Lab Results - Last 24 Hours (Table) 08/06/20 08/07/20 08/07/20 Range/Units 19:55 06:12 07:53 WBC 12.1 H (3.8-10.6) k/uL RBC 2.95 L (3.80-5.40) m/uL Hgb 7.8 L (11.4-16.0) gm/dL Hct 25.7 L (34.0-46.0) % MCHC 30.3 L (31.0-37.0) g/dL RDW 18.4 H (11.5-15.5) % Plt Count 474 H (150-450) k/uL Neutrophils # 10.8 H (1.3-7.7) k/uL Lymphocytes # 0.7 L (1.0-4.8) k/uL Sodium (137-145) mmol/L Carbon Dioxide (22-30) mmol/L BUN (7-17) mg/dL Creatinine (0.52-1.04) mg/dL Glucose (74-99) mg/dL POC Glucose (mg/dL) 295 H 283 H (75-99) mg/dL Calcium (8.4-10.2) mg/dL 08/07/20 08/07/20 08/07/20 Range/Units 07:53 12:09 17:11 WBC (3.8-10.6) k/uL RBC (3.80-5.40) m/uL Hgb (11.4-16.0) gm/dL Hct (34.0-46.0) % MCHC (31.0-37.0) g/dL RDW (11.5-15.5) % Plt Count (150-450) k/uL Neutrophils # (1.3-7.7) k/uL Lymphocytes # (1.0-4.8) k/uL Sodium 136 L (137-145) mmol/L Carbon Dioxide 19 L (22-30) mmol/L BUN 103 H* (7-17) mg/dL Creatinine 2.64 H (0.52-1.04) mg/dL Glucose 256 H (74-99) mg/dL POC Glucose (mg/dL) 270 H 282 H (75-99) mg/dL Calcium 8.3 L (8.4-10.2) mg/dL Assessment and Plan Assessment: -Acute hypoxic respiratory failure: Secondary to along with Covid 19 pneumonia and CHF . - congestive heart failure chronic diastolic dysfunction with acute exacerbationPatient will be continued on diuretics and patient is presently on 15 L of oxygen -Episode of nonsustained VT -Covid 19 pneumonia: Patient will be continued on steroids. -E. coli urinary tract infection. Resistant to Levaquin. Patient has ALLERGY to penicillin and Keflex. - paroxysmal A. fib patient the is on beta blockers which will be continued and Eliquis -Acute renal failure: Pre-enal azotemia probably from congestive heart failure exacerbation improved with IV Lasix. Lasix changed to by mouth. 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 Time with Patient: Greater than 30
--- NOTE | 2020-08-10 21:18 | P.PN ---
Subjective Progress Note Date: 08/08/20 Principal diagnosis: New onset paroxysmal atrial fibrillation COVID 19 viral pneumonia Acute hypoxic respiratory failure Non-sustained VT Acute on chronic diastolic heart failure 69-year-old female patient admitted for congestive heart failure chronic s ystolic dysfunction with acute exacerbation and patient was also diagnosed with covid 19. Still short of breath but the does appear to have improvement in her respiratory status and creatinine did improve and close to her baseline of around 1.2. Patient is saturating 92 was seen on 12 L of oxygen 07/31/2020 Patient is presently on 10 L of oxygen although patient declining all the care patient doesn't want to be at oxygen patient has a legal guardian we're awaiting the legal guardian's decision regarding her overall goals of care. 08/01/2020 Patient is seen and evaluated in follow-up on the selective care unit. Currently resting fairly comfortably in bed. Still requiring 12 L high flow nasal cannula to maintain O2 saturation 90s. This temperature 99.1. Slightly tachycardic. Urine culture positive for gram-negative bacilli. Sodium 146. Potassium 3.4. Creatinine 1.28. Receiving Lasix 40 mg IV every 12 hours. Antibiotics in the form of Levaquin. Remains on dexamethasone, vitamin supplement, Pepcid. Patient remains anticoagulated with [place]; her prognosis remains guarded; pulmonary is following and recommending to continue to titrate down FiO2 as tolerated; plan is to repeat a follow-up chest x-ray in a.m. Patient remains in atrial fibrillation but remains rate controlled; patient remains on diuretic therapy and has had a negative fluid balance with 7 KG weight loss since admission; cardiology is following and recommending to continue with diuresis and monitor renal function and electrolytes closely As indicated above await legal guardian's decision regarding goals of care 08/02/2020 Patient is seen and evaluated in selective care unit; remains about the same. Patient is still requiring nonrebreather mask, high flow at 15 L/m, O2 saturation is 90%. She is in no distress, she is hemodynamically stable, and seems to be quite comfortable. Her initial presentation was mostly a presentation of acute Covid 19 pneumonia and hypoxic respiratory failure. She remains on the cocktail. Pulmonary service is following; continue with present supportive care measures and titrate FiO2 as able Patient's prognosis remains guarded 08/03/2020 Patient seen and examined this morning. Overall she's feeling quite a bit better compared to yesterday. She is breathing easier. She has less cough and congestion. She remains on nonrebreather with O2 sats in the low 90s. She is afebrile and blood pressure is controlled in the 115 to 130 range. She has been transitioned to by mouth Lasix. 08/04/2020 Patient is currently resting in the bed comfortably. Awake alert and oriented 2-3. Patient is otherwise still requiring oxygen at 15 L via nasal cannula. No complaints of chest pain. Still having exertional dyspnea otherwise. Patient is being continued on Decadron and Eliquis for anticoagulation. Heart rate is controlled. Urine culture showed E. coli and is being continued on Levaquin currently. Pulmonary is on board. 08/05/2020 Patient is currently in the telemetry unit. Patient is requiring 15 L oxygen and on her percent nonrebreather. Patient is drowsy compared to yesterday. No complains of cough or chest discomfort. Otherwise patient is being continued on Decadron and Lovenox. Continued on antibiotics for urinary tract infection with Levaquin. Chest x-ray showed findings consistent with pneumonia with patchy densities present in the left lung greater than right. No pneumothorax or pleural effusion. Patient is still having elevated inflammatory markers. 08/06/2020 Patient is awake and alert and follows commands. Still requiring oxygen at 15 L via 100% nonrebreather. Patient has been afebrile. Blood pressure is stable. Patient is being continued on Decadron and anticoagulation. Antibiotics the form of Levaquin and Bactrim. Levaquin has been discontinued. Follow-up renal profile tomorrow. Patient has been afebrile. No nausea vomiting or abdominal pain or diarrhea. 08/07/20 Patient is confused and lethargic. Talking to herself. Still requiring oxygen at 15 L via 100% nonrebreather. Afebrile. Laboratory data showed sodium 136, potassium 4.4, Due to worsening clinical status I did discuss with her legal guardian. Agreeable to comfort care and possible hospice transfer. 08/08/20 Patient continues to be 15 L oxygen via nonrebreather. Saturating at 91%. Patient is confused and yelling at times. Patient is being continued on Decadron and anticoagulation. Patient completed antibiotic course for urinary tract infection. Antibiotics have been discontinued. Patient remains afebrile. Patient is able to open her eyes and recognizes her daughters. Did discuss with her daughters at bedside in detail. Currently patient is in no code. Current medications reviewed. Objective - Vital Signs Vital signs: Vital Signs Temp 98.1 F 08/08/20 08:00 Pulse 97 08/08/20 12:00 Resp 20 08/08/20 12:00 BP 117/58 08/08/20 12:00 Pulse Ox 91 L 08/08/20 12:00 Intake & Output 08/07/20 08/08/20 08/08/20 18:59 06:59 18:59 Intake Total 80 Output Total 20 420 700 Balance 60 -420 -700 Weight 91 kg Intake: Intake, IV Titration 80 Amount Sodium Chloride 0.9% 1, 80 000 ml @ 20 mls/hr IV . Q24H [facility] Rx#:[id number] Output: Urine 400 700 Stool 20 20 Other: Voiding Method Indwelling Catheter Indwelling Catheter Indwelling Catheter - Exam - Exam GENERAL: The patient is alert and oriented x1-2, not in any acute distress. Drowsy. Well developed, well nourished. HEENT: Pupils are round and equally reacting to light. EOMI. No scleral icterus. No conjunctival pallor. Normocephalic, atraumatic. No pharyngeal erythema. No thyromegaly. CARDIOVASCULAR: S1 and S2 present. No murmurs, rubs, or gallops. PULMONARY: Bibasilar crackles were appreciated ABDOMEN: Soft, nontender, nondistended, normoactive bowel sounds. No palpable organomegaly. MUSCULOSKELETAL: No joint swelling or deformity. EXTREMITIES: No cyanosis, clubbing, or pedal edema. NEUROLOGICAL: Gross neurological examination did not reveal any focal deficits. SKIN: No rashes. - Labs CBC & Chem 7: 08/07/20 07:53 08/07/20 07:53 Labs: Abnormal Lab Results - Last 24 Hours (Table) 08/07/20 08/07/20 08/08/20 Range/Units 17:11 20:36 06:32 POC Glucose (mg/dL) 282 H 269 H 273 H (75-99) mg/dL 08/08/20 Range/Units 11:52 POC Glucose (mg/dL) 234 H (75-99) mg/dL Assessment and Plan Assessment: -Acute hypoxic respiratory failure: Secondary to along with Covid 19 pneumonia and CHF . - congestive heart failure chronic diastolic dysfunction with acute exacerbationPatient will be continued on diuretics and patient is presently on 15 L of oxygen -Episode of nonsustained VT -Covid 19 pneumonia: Patient will be continued on steroids. -E. coli urinary tract infection. Resistant to Levaquin. Patient has ALLERGY to penicillin and Keflex. - paroxysmal A. fib patient the is on beta blockers which will be continued and Eliquis -Acute renal failure: Pre-enal azotemia probably from congestive heart failure exacerbation improved with IV Lasix. Lasix changed to by mouth. 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 Time with Patient: Greater than 30
--- NOTE | 2020-08-10 21:21 | P.PN ---
Subjective Progress Note Date: 08/09/20 Principal diagnosis: New onset paroxysmal atrial fibrillation COVID 19 viral pneumonia Acute hypoxic respiratory failure Non-sustained VT Acute on chronic diastolic heart failure 69-year-old female patient admitted for congestive heart failure chronic s ystolic dysfunction with acute exacerbation and patient was also diagnosed with covid 19. Still short of breath but the does appear to have improvement in her respiratory status and creatinine did improve and close to her baseline of around 1.2. Patient is saturating 92 was seen on 12 L of oxygen 07/31/2020 Patient is presently on 10 L of oxygen although patient declining all the care patient doesn't want to be at oxygen patient has a legal guardian we're awaiting the legal guardian's decision regarding her overall goals of care. 08/01/2020 Patient is seen and evaluated in follow-up on the selective care unit. Currently resting fairly comfortably in bed. Still requiring 12 L high flow nasal cannula to maintain O2 saturation 90s. This temperature 99.1. Slightly tachycardic. Urine culture positive for gram-negative bacilli. Sodium 146. Potassium 3.4. Creatinine 1.28. Receiving Lasix 40 mg IV every 12 hours. Antibiotics in the form of Levaquin. Remains on dexamethasone, vitamin supplement, Pepcid. Patient remains anticoagulated with [place]; her prognosis remains guarded; pulmonary is following and recommending to continue to titrate down FiO2 as tolerated; plan is to repeat a follow-up chest x-ray in a.m. Patient remains in atrial fibrillation but remains rate controlled; patient remains on diuretic therapy and has had a negative fluid balance with 7 KG weight loss since admission; cardiology is following and recommending to continue with diuresis and monitor renal function and electrolytes closely As indicated above await legal guardian's decision regarding goals of care 08/02/2020 Patient is seen and evaluated in selective care unit; remains about the same. Patient is still requiring nonrebreather mask, high flow at 15 L/m, O2 saturation is 90%. She is in no distress, she is hemodynamically stable, and seems to be quite comfortable. Her initial presentation was mostly a presentation of acute Covid 19 pneumonia and hypoxic respiratory failure. She remains on the cocktail. Pulmonary service is following; continue with present supportive care measures and titrate FiO2 as able Patient's prognosis remains guarded 08/03/2020 Patient seen and examined this morning. Overall she's feeling quite a bit better compared to yesterday. She is breathing easier. She has less cough and congestion. She remains on nonrebreather with O2 sats in the low 90s. She is afebrile and blood pressure is controlled in the 115 to 130 range. She has been transitioned to by mouth Lasix. 08/04/2020 Patient is currently resting in the bed comfortably. Awake alert and oriented 2-3. Patient is otherwise still requiring oxygen at 15 L via nasal cannula. No complaints of chest pain. Still having exertional dyspnea otherwise. Patient is being continued on Decadron and Eliquis for anticoagulation. Heart rate is controlled. Urine culture showed E. coli and is being continued on Levaquin currently. Pulmonary is on board. 08/05/2020 Patient is currently in the telemetry unit. Patient is requiring 15 L oxygen and on her percent nonrebreather. Patient is drowsy compared to yesterday. No complains of cough or chest discomfort. Otherwise patient is being continued on Decadron and Lovenox. Continued on antibiotics for urinary tract infection with Levaquin. Chest x-ray showed findings consistent with pneumonia with patchy densities present in the left lung greater than right. No pneumothorax or pleural effusion. Patient is still having elevated inflammatory markers. 08/06/2020 Patient is awake and alert and follows commands. Still requiring oxygen at 15 L via 100% nonrebreather. Patient has been afebrile. Blood pressure is stable. Patient is being continued on Decadron and anticoagulation. Antibiotics the form of Levaquin and Bactrim. Levaquin has been discontinued. Follow-up renal profile tomorrow. Patient has been afebrile. No nausea vomiting or abdominal pain or diarrhea. 08/07/20 Patient is confused and lethargic. Talking to herself. Still requiring oxygen at 15 L via 100% nonrebreather. Afebrile. Laboratory data showed sodium 136, potassium 4.4, Due to worsening clinical status I did discuss with her legal guardian. Agreeable to comfort care and possible hospice transfer. 08/08/20 Patient continues to be 15 L oxygen via nonrebreather. Saturating at 91%. Patient is confused and yelling at times. Patient is being continued on Decadron and anticoagulation. Patient completed antibiotic course for urinary tract infection. Antibiotics have been discontinued. Patient remains afebrile. Patient is able to open her eyes and recognizes her daughters. Did discuss with her daughters at bedside in detail. Currently patient is in no code. 08/09/2020 Patient is currently lying in the bed awake and alert still requiring 100% nonre breather. Not making much progress. Currently being continued IV Solu-Medrol, Ativan and Lasix 40 mg by mouth twice daily. Continued on vitamin supplementation. Afebrile. No nausea vomiting or abdominal pain or diarrhea. Current medications reviewed. Objective - Vital Signs Vital signs: Vital Signs Temp 97.8 F 08/09/20 19:46 Pulse 69 08/09/20 20:00 Resp 23 08/09/20 20:00 BP 117/68 08/09/20 19:46 Pulse Ox 92 L 08/09/20 19:46 Intake & Output 08/09/20 08/09/20 08/10/20 06:59 18:59 06:59 Intake Total 0 Output Total 20 400 20 Balance -20 -400 -20 Weight 91 kg Intake: Oral 0 Output: Urine 400 Stool 20 20 Other: Voiding Method Indwelling Catheter Indwelling Catheter Indwelling Catheter - Exam - Exam GENERAL: The patient is alert and oriented x1-2, not in any acute distress. Drowsy. Well developed, well nourished. HEENT: Pupils are round and equally reacting to light. EOMI. No scleral icterus. No conjunctival pallor. Normocephalic, atraumatic. No pharyngeal erythema. No thyromegaly. CARDIOVASCULAR: S1 and S2 present. No murmurs, rubs, or gallops. PULMONARY: Bibasilar crackles were appreciated ABDOMEN: Soft, nontender, nondistended, normoactive bowel sounds. No palpable organomegaly. MUSCULOSKELETAL: No joint swelling or deformity. EXTREMITIES: No cyanosis, clubbing, or pedal edema. NEUROLOGICAL: Gross neurological examination did not reveal any focal deficits. SKIN: No rashes. - Labs CBC & Chem 7: 08/07/20 07:53 08/07/20 07:53 Labs: Abnormal Lab Results - Last 24 Hours (Table) 08/09/20 08/09/20 08/09/20 Range/Units 06:21 12:03 16:56 POC Glucose (mg/dL) 221 H 229 H 200 H (75-99) mg/dL 08/09/20 Range/Units 20:43 POC Glucose (mg/dL) 212 H (75-99) mg/dL Assessment and Plan Assessment: -Acute hypoxic respiratory failure: Secondary to along with Covid 19 pneumonia and CHF . - congestive heart failure chronic diastolic dysfunction with acute exacerbationPatient will be continued on diuretics and patient is presently on 15 L of oxygen -Episode of nonsustained VT -Covid 19 pneumonia: Patient will be continued on steroids. -E. coli urinary tract infection. Resistant to Levaquin. Patient has ALLERGY to penicillin and Keflex. - paroxysmal A. fib patient the is on beta blockers which will be continued and Eliquis -Acute renal failure: Pre-enal azotemia probably from congestive heart failure exacerbation improved with IV Lasix. Lasix changed to by mouth. 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 Time with Patient: Greater than 30
--- NOTE | 2020-08-10 21:22 | P.PN ---
Subjective Progress Note Date: 08/10/20 Principal diagnosis: New onset paroxysmal atrial fibrillation COVID 19 viral pneumonia Acute hypoxic respiratory failure Non-sustained VT Acute on chronic diastolic heart failure 69-year-old female patient admitted for congestive heart failure chronic s ystolic dysfunction with acute exacerbation and patient was also diagnosed with covid 19. Still short of breath but the does appear to have improvement in her respiratory status and creatinine did improve and close to her baseline of around 1.2. Patient is saturating 92 was seen on 12 L of oxygen 07/31/2020 Patient is presently on 10 L of oxygen although patient declining all the care patient doesn't want to be at oxygen patient has a legal guardian we're awaiting the legal guardian's decision regarding her overall goals of care. 08/01/2020 Patient is seen and evaluated in follow-up on the selective care unit. Currently resting fairly comfortably in bed. Still requiring 12 L high flow nasal cannula to maintain O2 saturation 90s. This temperature 99.1. Slightly tachycardic. Urine culture positive for gram-negative bacilli. Sodium 146. Potassium 3.4. Creatinine 1.28. Receiving Lasix 40 mg IV every 12 hours. Antibiotics in the form of Levaquin. Remains on dexamethasone, vitamin supplement, Pepcid. Patient remains anticoagulated with [place]; her prognosis remains guarded; pulmonary is following and recommending to continue to titrate down FiO2 as tolerated; plan is to repeat a follow-up chest x-ray in a.m. Patient remains in atrial fibrillation but remains rate controlled; patient remains on diuretic therapy and has had a negative fluid balance with 7 KG weight loss since admission; cardiology is following and recommending to continue with diuresis and monitor renal function and electrolytes closely As indicated above await legal guardian's decision regarding goals of care 08/02/2020 Patient is seen and evaluated in selective care unit; remains about the same. Patient is still requiring nonrebreather mask, high flow at 15 L/m, O2 saturation is 90%. She is in no distress, she is hemodynamically stable, and seems to be quite comfortable. Her initial presentation was mostly a presentation of acute Covid 19 pneumonia and hypoxic respiratory failure. She remains on the cocktail. Pulmonary service is following; continue with present supportive care measures and titrate FiO2 as able Patient's prognosis remains guarded 08/03/2020 Patient seen and examined this morning. Overall she's feeling quite a bit better compared to yesterday. She is breathing easier. She has less cough and congestion. She remains on nonrebreather with O2 sats in the low 90s. She is afebrile and blood pressure is controlled in the 115 to 130 range. She has been transitioned to by mouth Lasix. 08/04/2020 Patient is currently resting in the bed comfortably. Awake alert and oriented 2-3. Patient is otherwise still requiring oxygen at 15 L via nasal cannula. No complaints of chest pain. Still having exertional dyspnea otherwise. Patient is being continued on Decadron and Eliquis for anticoagulation. Heart rate is controlled. Urine culture showed E. coli and is being continued on Levaquin currently. Pulmonary is on board. 08/05/2020 Patient is currently in the telemetry unit. Patient is requiring 15 L oxygen and on her percent nonrebreather. Patient is drowsy compared to yesterday. No complains of cough or chest discomfort. Otherwise patient is being continued on Decadron and Lovenox. Continued on antibiotics for urinary tract infection with Levaquin. Chest x-ray showed findings consistent with pneumonia with patchy densities present in the left lung greater than right. No pneumothorax or pleural effusion. Patient is still having elevated inflammatory markers. 08/06/2020 Patient is awake and alert and follows commands. Still requiring oxygen at 15 L via 100% nonrebreather. Patient has been afebrile. Blood pressure is stable. Patient is being continued on Decadron and anticoagulation. Antibiotics the form of Levaquin and Bactrim. Levaquin has been discontinued. Follow-up renal profile tomorrow. Patient has been afebrile. No nausea vomiting or abdominal pain or diarrhea. 08/07/20 Patient is confused and lethargic. Talking to herself. Still requiring oxygen at 15 L via 100% nonrebreather. Afebrile. Laboratory data showed sodium 136, potassium 4.4, Due to worsening clinical status I did discuss with her legal guardian. Agreeable to comfort care and possible hospice transfer. 08/08/20 Patient continues to be 15 L oxygen via nonrebreather. Saturating at 91%. Patient is confused and yelling at times. Patient is being continued on Decadron and anticoagulation. Patient completed antibiotic course for urinary tract infection. Antibiotics have been discontinued. Patient remains afebrile. Patient is able to open her eyes and recognizes her daughters. Did discuss with her daughters at bedside in detail. Currently patient is in no code. 08/09/2020 Patient is currently lying in the bed awake and alert still requiring 100% nonre breather. Not making much progress. Currently being continued IV Solu-Medrol, Ativan and Lasix 40 mg by mouth twice daily. Continued on vitamin supplementation. Afebrile. No nausea vomiting or abdominal pain or diarrhea. 08/10/2020 Patient is currently lying in the bed awake alert and not oriented. Confused and encephalopathic. Still on higher percent nonrebreather oxygen saturating at 90%. Remains on IV Solu-Medrol and apixaban and Lasix. Continued on vitamin supplementation and supportive care. No fever no chills. No diarrhea. Prognosis remains poor at this time. Current medications reviewed. Objective - Vital Signs Vital signs: Vital Signs Temp 97.5 F L 08/10/20 08:14 Pulse 90 08/10/20 11:35 Resp 24 08/10/20 11:35 BP 112/62 08/10/20 11:35 Pulse Ox 93 L 08/10/20 11:35 Intake & Output 08/09/20 08/10/20 08/10/20 18:59 06:59 18:59 Intake Total 0 Output Total 400 40 20 Balance -400 -40 -20 Weight 89.5 kg Intake: Oral 0 Output: Urine 400 Stool 40 20 Other: Voiding Method Indwelling Catheter Indwelling Catheter Indwelling Catheter - Exam - Exam GENERAL: The patient is alert and oriented x1-2, not in any acute distress. Drowsy. Well developed, well nourished. HEENT: Pupils are round and equally reacting to light. EOMI. No scleral icterus. No conjunctival pallor. Normocephalic, atraumatic. No pharyngeal erythema. No thyromegaly. CARDIOVASCULAR: S1 and S2 present. No murmurs, rubs, or gallops. PULMONARY: Bibasilar crackles were appreciated ABDOMEN: Soft, nontender, nondistended, normoactive bowel sounds. No palpable organomegaly. MUSCULOSKELETAL: No joint swelling or deformity. EXTREMITIES: No cyanosis, clubbing, or pedal edema. NEUROLOGICAL: Gross neurological examination did not reveal any focal deficits. SKIN: No rashes. - Labs CBC & Chem 7: 08/07/20 07:53 08/07/20 07:53 Labs: Abnormal Lab Results - Last 24 Hours (Table) 08/09/20 08/09/20 08/10/20 Range/Units 16:56 20:43 06:20 POC Glucose (mg/dL) 200 H 212 H 252 H (75-99) mg/dL 08/10/20 Range/Units 11:53 POC Glucose (mg/dL) 201 H (75-99) mg/dL Assessment and Plan Assessment: -Acute hypoxic respiratory failure: Secondary to along with Covid 19 pneumonia and CHF . - congestive heart failure chronic diastolic dysfunction with acute exacerbati onPatient will be continued on diuretics and patient is presently on 15 L of oxygen -Acute metabolic encephalopathy secondary infection. -Episode of nonsustained VT -Covid 19 pneumonia: Patient will be continued on steroids. -E. coli urinary tract infection. Resistant to Levaquin. Patient has ALLERGY to penicillin and Keflex. - paroxysmal A. fib patient the is on beta blockers which will be continued and Eliquis -Acute renal failure: Pre-enal azotemia probably from congestive heart failure exacerbation improved with IV Lasix. Lasix changed to by mouth. -Chronic kidney disease stage II from diabetic nephropathy -Hyperlipidemia -Fibromyalgia -Hypertension next and-diabetic peripheral neuropathy -Chronic low back pain -Obstructive sleep apnea uses CPAP machine at home which will be continued PRN. Time with Patient: Greater than 30
[2020-08-11 06:11] LABS: Glucose,Whole Blood 158 mg/dL (75-99)
[2020-08-11] MEDS: INSULIN ASPART (NovoLOG) 100 UNIT/ML VIAL SQ SCH ×2 (06:20→12:20)
[2020-08-11] MEDS: MORPHINE SULFATE 4 MG/ML SYRINGE IVP PRN ×2 (06:28→11:15)
[2020-08-11] MEDS: DULoxetine HCL 60 MG CAPSULE.DR PO SCH ×2 (06:29→12:20)
[2020-08-11] MEDS: LINAGLIPTIN 5 MG TABLET PO SCH ×2 (06:29→12:20)
[2020-08-11] MEDS: methylPREDNISolone SOD SUCCI 125 MG/2 ML VIAL IV SCH ×2 (06:29→14:40)
[2020-08-11 08:27] LABS: Anisocytosis Slight; Basophils % (A) 0 %; Eosinophils # (A) 0.1 k/uL (0-0.7); Eosinophils % (A) 0 %; HGB 8.4 gm/dL (11.4-16.0); Hypochromasia Marked; Lymphocytes # (A) 0.9 k/uL (1.0-4.8); Lymphocytes % (A) 2 %; MCH 25.4 pg (25.0-35.0); MCHC 29.2 g/dL (31.0-37.0); MCV 87.2 fL (80.0-100.0); Mean Platelet Volume 8.7; Monocytes # (A) 0.4 k/uL (0-1.0); Monocytes % (A) 1 %; Neutrophils % (A) 96 %; Platelet Count 559 k/uL (150-450); RBC 3.32 m/uL (3.80-5.40); RDW 18.5 % (11.5-15.5); WBC 35.4 k/uL (3.8-10.6)
[2020-08-11 08:34] LABS: Calcium 8.6 mg/dL (8.4-10.2); Potassium 4.4 mmol/L (3.5-5.1)
[2020-08-11 11:31] VITALS: BP 113/64; PULSE 105; RESP 24; TEMP 94
[2020-08-11] MEDS: FAMOTIDINE 20 MG TAB PO SCH (12:20)
[2020-08-11] MEDS: ASCORBIC ACID 500 MG TAB PO SCH (12:20)
[2020-08-11] MEDS: lisinopriL 5 MG TAB PO SCH (12:20)
[2020-08-11] MEDS: APIXABAN 5 MG TAB PO SCH (12:20)
[2020-08-11] MEDS: FUROSEMIDE 40 MG TAB PO SCH (12:20)
[2020-08-11] MEDS: methocarbamoL 500 MG TAB PO SCH (12:20)
[2020-08-11] MEDS: CHOLECALCIFEROL 1,000 UNIT TAB PO SCH (12:20)
[2020-08-11] MEDS: METOPROLOL TARTRATE 25 MG TAB PO SCH (12:21)
[2020-08-11] MEDS: SODIUM BICARBONATE TAB 650 MG TAB PO SCH (12:21)
[2020-08-11] MEDS: ZINC SULFATE 220 MG CAP PO SCH (12:21)
[2020-08-11] MEDS ORDERED: METOCLOPRAMIDE 5 MG/ML 2 ML VIAL IVP PRN (13:22)
[2020-08-11] MEDS ORDERED: ATROPINE OPHTH SOLN 1% 5ML BTL SUBLINGUAL PRN (13:22)
[2020-08-11] MEDS ORDERED: ACETAMINOPHEN SUPPOSITORY 650 MG SUPP RECTAL PRN (13:22)
[2020-08-11] MEDS ORDERED: LORazepam 2 MG/ML INJ IV PRN (13:22)
[2020-08-11] MEDS ORDERED: ONDANSETRON 4 MG/2 ML VIAL IVP PRN (13:22)
[2020-08-11] MEDS ORDERED: MORPHINE SULFATE (100 MG/2 ML) 100 MG in SODIUM CHLORIDE 0.9% 100 ML IV SCH (13:30)
[2020-08-11] MEDS ORDERED: SCOPOLAMINE 1.5MG/72HR PATCH TRANSDERM SCH (13:30)
== END 2020-08-11 16:38 | disposition expired | DRG 177 ==
LOC: EC 21:18 → 3SCARD 07-29 01:43 → OBSVTOIN 07-30 11:06
PROVIDERS: ADMIT Hospitalist; ATTEND Hospitalist
PROC: 05HD33Z Insertion of Infusion Device into Right Cephalic Vein, Percutaneous Approach (ICD-10-PCS; principal; 2020-07-30 15:25)
PROC: 5A0955A Assistance with Respiratory Ventilation, Greater than 96 Consecutive Hours, High Flow/Velocity Cannula (ICD-10-PCS; 2020-07-30 15:25)
DX: U07.1 COVID-19 (principal); J12.82 Pneumonia due to coronavirus disease 2019; J96.01 Acute respiratory failure with hypoxia; I50.33 Acute on chronic diastolic (congestive) heart failure; G93.41 Metabolic encephalopathy; N17.9 Acute kidney failure, unspecified; I13.0 Hypertensive heart and chronic kidney disease with heart failure and stage 1 through stage 4 chronic kidney disease, or unspecified chronic kidney disease; N39.0 Urinary tract infection, site not specified; Z16.23 Resistance to quinolones and fluoroquinolones; J44.0 Chronic obstructive pulmonary disease with (acute) lower respiratory infection; I47.2 Ventricular tachycardia; I27.20 Pulmonary hypertension, unspecified; D63.1 Anemia in chronic kidney disease; I95.9 Hypotension, unspecified; Z43.3 Encounter for attention to colostomy; E11.42 Type 2 diabetes mellitus with diabetic polyneuropathy; E11.22 Type 2 diabetes mellitus with diabetic chronic kidney disease; B96.20 Unspecified Escherichia coli [E. coli] as the cause of diseases classified elsewhere; E11.51 Type 2 diabetes mellitus with diabetic peripheral angiopathy without gangrene; I48.0 Paroxysmal atrial fibrillation; Z89.512 Acquired absence of left leg below knee; E66.01 Morbid (severe) obesity due to excess calories; N18.30 Chronic kidney disease, stage 3 unspecified; Z66 Do not resuscitate; Z51.5 Encounter for palliative care; G47.33 Obstructive sleep apnea (adult) (pediatric); I08.1 Rheumatic disorders of both mitral and tricuspid valves; E78.5 Hyperlipidemia, unspecified; K21.9 Gastro-esophageal reflux disease without esophagitis; F32.9 Major depressive disorder, single episode, unspecified; F41.9 Anxiety disorder, unspecified; M79.7 Fibromyalgia; G89.29 Other chronic pain; M54.5 Low back pain; L30.9 Dermatitis, unspecified; M62.81 Muscle weakness (generalized); Z68.38 Body mass index [BMI] 38.0-38.9, adult; Z79.84 Long term (current) use of oral hypoglycemic drugs; Z79.891 Long term (current) use of opiate analgesic; Z79.899 Other long term (current) drug therapy; Z87.891 Personal history of nicotine dependence; Z86.718 Personal history of other venous thrombosis and embolism; Z87.19 Personal history of other diseases of the digestive system; Z87.440 Personal history of urinary (tract) infections; Z87.442 Personal history of urinary calculi; Z87.448 Personal history of other diseases of urinary system; Z86.14 Personal history of Methicillin resistant Staphylococcus aureus infection; Z86.19 Personal history of other infectious and parasitic diseases; Z87.01 Personal history of pneumonia (recurrent); Z87.11 Personal history of peptic ulcer disease; Z86.69 Personal history of other diseases of the nervous system and sense organs; Z87.2 Personal history of diseases of the skin and subcutaneous tissue; Z90.89 Acquired absence of other organs; Z98.51 Tubal ligation status; Z90.49 Acquired absence of other specified parts of digestive tract; Z96.652 Presence of left artificial knee joint; Z96.641 Presence of right artificial hip joint; Z98.84 Bariatric surgery status; Z87.39 Personal history of other diseases of the musculoskeletal system and connective tissue; Z98.818 Other dental procedure status; Z71.3 Dietary counseling and surveillance; Z86.31 Personal history of diabetic foot ulcer; Z86.79 Personal history of other diseases of the circulatory system; Z98.890 Other specified postprocedural states; Z88.1 Allergy status to other antibiotic agents; Z91.040 Latex allergy status; Z91.010 Allergy to peanuts; Z88.0 Allergy status to penicillin; Z88.7 Allergy status to serum and vaccine; Z88.8 Allergy status to other drugs, medicaments and biological substances; Z91.048 Other nonmedicinal substance allergy status; Z82.49 Family history of ischemic heart disease and other diseases of the circulatory system; Z83.3 Family history of diabetes mellitus; Z80.9 Family history of malignant neoplasm, unspecified
CPT/HCPCS: 36410; 36415; 51702; 71045; 76937; 78580; 80048; 80053; 81001; 83036; 83605; 83615; 83735; 83880; 84132; 84484; 85025; 85379; 85610; 85730; 86140; 87077; 87086; 87186; 93005; 93306; 94640; 94760; 96372; 96374; 96376; 99285